=== PATIENT | female | born 1995 | race Caucasian/White ===

== ENCOUNTER 2022-11-21 14:13 | Outpatient (OUT) | payer OTHER, SELFPAY ==
[2022-11-21 14:43] LABS: Bilirubin Urine NEGATIVE (NEGATIVE); Blood Urine NEGATIVE (NEGATIVE); Clarity Urine CLEAR (CLEAR); Color Urine LT. YELLOW (YELLOW); Glucose Urine UA NEGATIVE (NEGATIVE); Ketones Urine NEGATIVE (NEGATIVE); Leukocyte Esterase Urine TRACE (NEGATIVE); Nitrite Urine NEGATIVE (NEGATIVE); Protein Urine NEGATIVE (NEG/TRACE); Urobilinogen Urine 0.2 EU/dL (0.2-1.0)
== END 2022-11-21 14:14 | disposition home or self-care (01) ==
LOC: LAB 14:17
PROVIDERS: PCP Family Medicine; Visit Provider Family Medicine
DX: R53.83 Other fatigue (principal)
CPT/HCPCS: 81003; 87086

== ENCOUNTER 2022-11-24 12:56 | Outpatient (OUT) | payer OTHER, SELFPAY ==
--- NOTE | 2022-11-24 | XR_ITS ---
The [address] [id number] Patient Name: CAMMIE APARICIO MRN: [id number] date: 1995 Sex: F Assigned Patient Location: [facility] Current Patient Location: Accession/Order Number: [id number] Exam Date: 11/24/2022 13:10 Report Date: 11/27/2022 06:34 At the request of: MISHA SALAS Procedure: XR ribs BI 3V EXAMINATION: XR ribs BI 3V HISTORY: R07.81 RIB PAIN COMPARISON: No relevant comparison available. FINDINGS: RIBS: Normal. No significant arthropathy or acute abnormality. LUNGS: No appreciable pneumothorax or pleural thickening. OTHER: Negative. XR/XR ribs BI 3V IMPRESSION: No acute rib fracture Electronically authenticated by: DAVID ALVAREZ Date: 11/27/2022 06:34
== END 2022-11-24 12:57 | disposition home or self-care (01) ==
LOC: RAD 12:57
PROVIDERS: PCP Family Medicine; Visit Provider Family Medicine
DX: R07.81 Pleurodynia (principal)
CPT/HCPCS: 71110

== ENCOUNTER 2022-12-25 18:51 | Emergency (ER) | payer OTHER, SELFPAY ==
[2022-12-25] VITALS (20 sets, daily range): BP systolic 93–119; BP diastolic 72–87; PULSE 57–104; RESP 10–23; TEMP 36.9; O2SAT 97–98; BMI 30.8
--- NOTE | 2022-12-25 19:23 | ECG_ITS ---
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
[2022-12-25 19:53] LABS: Bilirubin Urine NEGATIVE (NEGATIVE); Blood Urine TRACE-I (NEGATIVE); Clarity Urine CLEAR (CLEAR); Color Urine LT. YELLOW (YELLOW); Glucose Urine UA NEGATIVE (NEGATIVE); Ketones Urine NEGATIVE (NEGATIVE); Leukocyte Esterase Urine SMALL (NEGATIVE); Nitrite Urine NEGATIVE (NEGATIVE); Protein Urine NEGATIVE (NEG/TRACE); Specific Gravity Urine <=1.005 (1.005-1.025); Urobilinogen Urine 0.2 EU/dL (0.2-1.0); pH Urine 6.5 (5.0-9.0)
[2022-12-25 19:57] LABS: HCG Qualitative Urine* NEGATIVE (NEGATIVE)
[2022-12-25 19:59] LABS: Bacteria Urine SMALL #/HPF (NONE SEEN); Cast Seen? NONE SEEN #/LPF (NONE SEEN); Crystals Seen? None Seen #/HPF (None Seen); Mucus Urine NONE SEEN (NONE SEEN); Squamous Epithelial Cell Urine FEW #/LPF (NONE/RARE)
[2022-12-25] MEDS: ONDANSETRON PF 4 MG/2 ML VIAL IV (20:23)
[2022-12-25] MEDS: KETOROLAC TROMETHAMINE 30 MG/ML VIAL 15 MG IVP (20:23)
[2022-12-25] MEDS: 0.9 % SODIUM CHLORIDE 1,000 ML 1000 ML IV (20:23)
[2022-12-25 20:28] LABS: Basophils Absolute Auto 0.1 10^3/uL (0.0-0.1); Basophils Percent Auto 0.6 % (0.2-2.0); Eosinophils Absolute Auto 0.3 10^3/uL (0.0-0.7); Eosinophils Percent Auto 2.9 % (0.9-7.0); Hematocrit 39.4 % (36.0-48.0); Immature Granulocytes Abs Auto 0.03 10^3/uL (0.00-0.03); Immature Granulocytes Pct Auto 0.3 % (0.0-0.5); Lymphocytes Absolute Auto 3.2 10^3/uL (1.2-3.8); Lymphocytes Percent Auto 33.7 % (20.5-60.0); Mean Corpuscular Volume 84.7 fL (81.0-99.0); Mean Platelet Volume 9.9 fL (9.5-13.5); Monocytes Absolute Auto 0.6 10^3/uL (0.3-0.8); Monocytes Percent Auto 6.4 % (1.7-12.0); Neutrophils Absolute Auto 5.3 10^3/uL (1.4-6.5); Neutrophils Percent Auto 56.1 % (43.0-75.0); Platelet Count 352 10^3/uL (150-450); Red Blood Count 4.65 10^6/uL (4.20-5.40); Red Cell Distribution Width 12.7 % (11.0-15.0); White Blood Count 9.5 10^3/uL (4.0-11.0)
[2022-12-25 20:52] LABS: Lactate/Lactic Acid 0.6 mmol/L (0.4-2.0)
[2022-12-25 20:59] LABS: Alanine Aminotransferase 14 U/L (14-59); Albumin Globulin Ratio 1.1; Albumin Level 3.9 g/dL (3.4-5.0); Alkaline Phosphatase 78 U/L (46-116); Anion Gap 10.6; Aspartate Amino Transferase 13 U/L (15-37); BUN Creatinine Ratio 7.5; Bilirubin Total 0.3 mg/dL (0.2-1.0); Calcium 9.1 mg/dL (8.5-10.1); Carbon Dioxide 27.7 mmol/L (21.0-32.0); Chloride 104 mmol/L (98-107); Estimated GFR (African America >60 (>=60); Estimated GFR (Non-African Ame >60 (>=60); Globulin 3.7 g/dL; Glucose 102 mg/dL (74-106); Potassium 3.3 mmol/L (3.5-5.1); Sodium 139 mmol/L (136-145); Total Protein 7.6 g/dL (6.4-8.2)
[2022-12-25 21:02] LABS: Thyroid Stimulating Hormone 1.276 uIU/mL (0.358-3.740); Troponin I High Sensitivity 5.7 pg/mL (4.0-51.3)
--- NOTE | 2022-12-25 21:19 | ED.GENADUL1 ---
Documented by User: ADELAIDE Walters 12/25/22 21:40 HPI - General Adult General Chief complaint: Headache Stated complaint: light headed, nausea, fatigue Time Seen by Provider: 12/25/22 19:23 Source: patient Mode of arrival: walk-in Limitations: no limitations History of Present Illness HPI narrative: patient is a 27-year-old female to history of long Covid and POTS who presents to the emergency department with complaints of fatigue, lightheadedness and nausea. She has had no objective fevers, diarrhea. She denies urinary symptoms, abdominal pain. She has chronic discomfort to the chest and has been evaluated for this multiple times across multiple hospitals. She has no new complaints of chest pain, shortness of breath over the last several days. She denies sick contacts. She is not concerned for . She states she is concerned that she may be dehydrated or is having an exacerbation of her POTS Related Data Home Medications Medication Instructions Recorded Confirmed gabapentin 100 mg capsule 500 mg PO .qhs 12/25/22 12/25/22 meclizine 25 mg tablet 25 mg PO .q6 hours PRN dizziness 12/25/22 12/25/22 metoprolol tartrate 25 mg tablet 12.5 mg PO QAM 12/25/22 12/25/22 metoprolol tartrate 25 mg tablet 25 mg PO .qhs 12/25/22 12/25/22 ondansetron 4 mg disintegrating 4 mg translingual Q6H PRN nausea 12/25/22 12/25/22 tablet and vomiting tizanidine 4 mg tablet 4 mg PO .qhs 12/25/22 12/25/22 Previous Rx's Medication Instructions Recorded cephalexin 500 mg capsule 500 mg PO Q8H 5 days #15 caps 12/25/22 ondansetron 4 mg disintegrating 4 mg PO Q6H PRN nausea and 12/25/22 tablet vomiting #12 tabs Allergies Allergy/AdvReac Type Severity Reaction Status Date / Time doxycycline AdvReac Headache Verified 12/25/22 19:06 sulfamethoxazole AdvReac Verified 12/25/22 19:06 [From Bactrim] trimethoprim [From Bactrim] AdvReac Verified 12/25/22 19:06 some other antibiotics AdvReac Uncoded 12/25/22 19:06 Review of Systems ROS Constitutional Reports: fatigue; Denies: fever or chills Ears, nose, mouth, and throat Denies: throat pain or nasal congestion Cardiovascular Denies: chest pain Respiratory Denies: shortness of breath Gastrointestinal Reports: nausea and vomiting; Denies: abdominal pain Musculoskeletal Denies: back pain Integumentary/Breast Denies: rash Neurological Reports: headache [facility] Social History Smoking status: Former smoker Exam Narrative Exam Narrative: Gen.: Awake, alert, in no distress Head: Normocephalic, atraumatic ENT: Moist mucous membranes Respiratory: No respiratory distress, lungs clear bilaterally Cardio: Regular rate and rhythm Gastrointestinal: Abdomen is soft, nondistended and nontender to palpation Extremities: Moves extremities equally, no injuries noted Psych: Normal mood and affect Neuro: No focal neuro deficit Skin: Warm, dry, intact Constitutional Vital Signs, click to edit/add: Last Vital Signs Temp 98.5 F 12/25/22 19:12 Pulse 71 12/25/22 21:40 Resp 16 12/25/22 21:40 BP 117/82 12/25/22 21:37 Pulse Ox 98 12/25/22 19:29 O2 Del Method Room Air 12/25/22 19:12 Course Vital Signs Vital signs: Vital Signs Temperature 98.5 F 12/25/22 19:12 Pulse Rate 65 12/25/22 19:12 Respiratory Rate 14 12/25/22 19:12 Blood Pressure 93/72 12/25/22 19:12 Pulse Oximetry 97 12/25/22 19:12 Oxygen Delivery Method Room Air 12/25/22 19:12 Temperature 98.5 F 12/25/22 19:12 Pulse Rate 71 12/25/22 21:40 Respiratory Rate 16 12/25/22 21:40 Blood Pressure 117/82 12/25/22 21:37 Pulse Oximetry 98 12/25/22 19:29 Oxygen Delivery Method Room Air 12/25/22 19:12 Medical Decision Making MDM Narrative Medical decision making narrative: patient was treated with IV fluids, she maintained stable vital signs. No EKG changes. Lab studies show mild urinary tract infection with otherwise stable labs. Patient will be treated for urinary tract infection with Keflex, given Zofran for home. Follow-up with PCP and return to the Emergency Room if symptoms change or worsen. Medical Records Medical records reviewed: Yes I reviewed the patient's medical records Lab Data Lab results reviewed: Yes I reviewed the patient's lab results Labs: Lab Results 12/25/22 12/25/22 Range/Units 19:20 20:20 WBC 9.5 (4.0-11.0) 10^3/uL RBC 4.65 (4.20-5.40) 10^6/uL Hgb 13.0 (12.0-16.0) g/dL Hct 39.4 (36.0-48.0) % MCV 84.7 (81.0-99.0) fL MCH 28.0 (26.7-34.0) pg MCHC 33.0 (29.9-35.2) g/dL RDW 12.7 (11.0-15.0) % Plt Count 352 (150-450) 10^3/uL MPV 9.9 (9.5-13.5) fL Neut % (Auto) 56.1 (43.0-75.0) % Lymph % (Auto) 33.7 (20.5-60.0) % [place] % (Auto) 6.4 (1.7-12.0) % Eos % (Auto) 2.9 (0.9-7.0) % Baso % (Auto) 0.6 (0.2-2.0) % Neut # (Auto) 5.3 (1.4-6.5) 10^3/uL Lymph # (Auto) 3.2 (1.2-3.8) 10^3/uL [place] # (Auto) 0.6 (0.3-0.8) 10^3/uL Eos # (Auto) 0.3 (0.0-0.7) 10^3/uL Baso # (Auto) 0.1 (0.0-0.1) 10^3/uL Abs Immat Gran (auto) 0.03 (0.00-0.03) 10^3/uL Imm/Tot Granulo (auto) 0.3 (0.0-0.5) % Sodium 139 (136-145) mmol/L Potassium 3.3 L (3.5-5.1) mmol/L Chloride 104 (98-107) mmol/L Carbon Dioxide 27.7 (21.0-32.0) mmol/L Anion Gap 10.6 BUN 6.0 L (7.0-18.0) mg/dL Creatinine 0.80 (0.55-1.02) mg/dL Est GFR ( Amer) >60 (>=60) Est GFR (Non-Af Amer) >60 (>=60) BUN/Creatinine Ratio 7.5 Glucose 102 (74-106) mg/dL Lactate 0.6 (0.4-2.0) mmol/L Calcium 9.1 (8.5-10.1) mg/dL Total Bilirubin 0.3 (0.2-1.0) mg/dL AST 13 L (15-37) U/L ALT 14 (14-59) U/L Alkaline Phosphatase 78 (46-116) U/L Troponin I High Sens 5.7 (4.0-51.3) pg/mL Total Protein 7.6 (6.4-8.2) g/dL Albumin 3.9 (3.4-5.0) g/dL Globulin 3.7 g/dL Albumin/Globulin Ratio 1.1 TSH 1.276 (0.358-3.740) uIU/mL Urine Color Lt. yellow (YELLOW) Urine Clarity Clear (CLEAR) Urine pH 6.5 (5.0-9.0) Ur Specific [place] <=1.005 A (1.005-1.025) Urine Protein Negative (NEG/TRACE) mg/dL Urine Glucose (UA) Negative (NEGATIVE) mg/dL Urine Ketones Negative (NEGATIVE) mg/dL Urine Occult Blood Trace-i (NEGATIVE) Urine Nitrite Negative (NEGATIVE) Urine Bilirubin Negative (NEGATIVE) Urine Urobilinogen 0.2 (0.2-1.0) EU/dL Ur Leukocyte Esterase Small A (NEGATIVE) Urine RBC 2-5 A (0-2) #/HPF Urine WBC 2-5 A (NONE SEEN) #/HPF Ur Squamous Epith Cells Few A (NONE/RARE) #/LPF Urine Crystals None seen (None Seen) #/HPF Urine Bacteria Small A (NONE SEEN) #/HPF Urine Casts None seen (NONE SEEN) #/LPF Urine Mucus None seen (NONE SEEN) Urine HCG, Qual Negative (NEGATIVE) ECG Data Attestation: I personally reviewed and interpreted this ECG as follows: (normal sinus rhythm at a rate of 59, no acute ST elevation or ectopy. EKG reviewed by attending physician) Discharge Plan Discharge Chief Complaint: Headache Clinical Impression: Lightheadedness, UTI (urinary tract infection), Headache Patient Disposition: Home, Self-Care Time of Disposition Decision: 21:37 Condition: Good Prescriptions / Home Meds: New cephalexin 500 mg capsule 500 mg PO Q8H 5 Days Qty: 15 0RF ondansetron 4 mg tablet,disintegrating 4 mg PO Q6H PRN (Reason: nausea and vomiting) Qty: 12 0RF No Action gabapentin 100 mg capsule 500 mg PO .qhs tizanidine 4 mg tablet 4 mg PO .qhs metoprolol tartrate 25 mg tablet 12.5 mg PO QAM metoprolol tartrate 25 mg tablet 25 mg PO .qhs meclizine 25 mg tablet 25 mg PO .q6 hours PRN (Reason: dizziness) ondansetron 4 mg tablet,disintegrating 4 mg translingual Q6H PRN (Reason: nausea and vomiting) Instructions: Urinary Tract Infection in Women (ED), Lightheadedness (ED), POTS (Postural Orthostatic Tachycardia Syndrome) (ED) Stand Alone Forms: Portal Instructions Referrals: MISHA SALAS [Primary Care Provider] - 1 week Discharge Date/Time: 12/25/22 22:01 Documented by User: Олег Gerardo MD 12/25/22 23:07 HPI - General Adult General Chief complaint: Headache Stated complaint: light headed, nausea, fatigue Time Seen by Provider: 12/25/22 19:23 Related Data Home Medications Medication Instructions Recorded Confirmed gabapentin 100 mg capsule 500 mg PO .qhs 12/25/22 12/25/22 meclizine 25 mg tablet 25 mg PO .q6 hours PRN dizziness 12/25/22 12/25/22 metoprolol tartrate 25 mg tablet 12.5 mg PO QAM 12/25/22 12/25/22 metoprolol tartrate 25 mg tablet 25 mg PO .qhs 12/25/22 12/25/22 ondansetron 4 mg disintegrating 4 mg translingual Q6H PRN nausea 12/25/22 12/25/22 tablet and vomiting tizanidine 4 mg tablet 4 mg PO .qhs 12/25/22 12/25/22 Previous Rx's Medication Instructions Recorded cephalexin 500 mg capsule 500 mg PO Q8H 5 days #15 caps 12/25/22 ondansetron 4 mg disintegrating 4 mg PO Q6H PRN nausea and 12/25/22 tablet vomiting #12 tabs Allergies Allergy/AdvReac Type Severity Reaction Status Date / Time doxycycline AdvReac Headache Verified 12/25/22 19:06 sulfamethoxazole AdvReac Verified 12/25/22 19:06 [From Bactrim] trimethoprim [From Bactrim] AdvReac Verified 12/25/22 19:06 some other antibiotics AdvReac Uncoded 12/25/22 19:06 PFSH PFSH Social History Smoking status: Former smoker Exam Constitutional Vital Signs, click to edit/add: Last Vital Signs Temp 98.5 F 12/25/22 19:12 Pulse 71 12/25/22 21:40 Resp 16 12/25/22 21:40 BP 117/82 12/25/22 21:37 Pulse Ox 98 12/25/22 19:29 O2 Del Method Room Air 12/25/22 19:12 Course Vital Signs Vital signs: Vital Signs Temperature 98.5 F 12/25/22 19:12 Pulse Rate 65 12/25/22 19:12 Respiratory Rate 14 12/25/22 19:12 Blood Pressure 93/72 12/25/22 19:12 Pulse Oximetry 97 12/25/22 19:12 Oxygen Delivery Method Room Air 12/25/22 19:12 Temperature 98.5 F 12/25/22 19:12 Pulse Rate 71 12/25/22 21:40 Respiratory Rate 16 12/25/22 21:40 Blood Pressure 117/82 12/25/22 21:37 Pulse Oximetry 98 12/25/22 19:29 Oxygen Delivery Method Room Air 12/25/22 19:12 Medical Decision Making MDM Narrative Medical decision making narrative: patient was treated with IV fluids, she maintained stable vital signs. No EKG changes. Lab studies show mild urinary tract infection with otherwise stable labs. Patient will be treated for urinary tract infection with Keflex, given Zofran for home. Follow-up with PCP and return to the Emergency Room if symptoms change or worsen. I, Dr Gerardo, have reviewed the above progress note and course of action in the ER; agree with the above. I have personally seen and evaluated this patient, gone over history and physical, and discussed disposition and treatment plan with the patient. Lab Data Labs: Lab Results 12/25/22 12/25/22 Range/Units 19:20 20:20 WBC 9.5 (4.0-11.0) 10^3/uL RBC 4.65 (4.20-5.40) 10^6/uL Hgb 13.0 (12.0-16.0) g/dL Hct 39.4 (36.0-48.0) % MCV 84.7 (81.0-99.0) fL MCH 28.0 (26.7-34.0) pg MCHC 33.0 (29.9-35.2) g/dL RDW 12.7 (11.0-15.0) % Plt Count 352 (150-450) 10^3/uL MPV 9.9 (9.5-13.5) fL Neut % (Auto) 56.1 (43.0-75.0) % Lymph % (Auto) 33.7 (20.5-60.0) % [place] % (Auto) 6.4 (1.7-12.0) % Eos % (Auto) 2.9 (0.9-7.0) % Baso % (Auto) 0.6 (0.2-2.0) % Neut # (Auto) 5.3 (1.4-6.5) 10^3/uL Lymph # (Auto) 3.2 (1.2-3.8) 10^3/uL [place] # (Auto) 0.6 (0.3-0.8) 10^3/uL Eos # (Auto) 0.3 (0.0-0.7) 10^3/uL Baso # (Auto) 0.1 (0.0-0.1) 10^3/uL Abs Immat Gran (auto) 0.03 (0.00-0.03) 10^3/uL Imm/Tot Granulo (auto) 0.3 (0.0-0.5) % Sodium 139 (136-145) mmol/L Potassium 3.3 L (3.5-5.1) mmol/L Chloride 104 (98-107) mmol/L Carbon Dioxide 27.7 (21.0-32.0) mmol/L Anion Gap 10.6 BUN 6.0 L (7.0-18.0) mg/dL Creatinine 0.80 (0.55-1.02) mg/dL Est GFR ( Amer) >60 (>=60) Est GFR (Non-Af Amer) >60 (>=60) BUN/Creatinine Ratio 7.5 Glucose 102 (74-106) mg/dL Lactate 0.6 (0.4-2.0) mmol/L Calcium 9.1 (8.5-10.1) mg/dL Total Bilirubin 0.3 (0.2-1.0) mg/dL AST 13 L (15-37) U/L ALT 14 (14-59) U/L Alkaline Phosphatase 78 (46-116) U/L Troponin I High Sens 5.7 (4.0-51.3) pg/mL Total Protein 7.6 (6.4-8.2) g/dL Albumin 3.9 (3.4-5.0) g/dL Globulin 3.7 g/dL Albumin/Globulin Ratio 1.1 TSH 1.276 (0.358-3.740) uIU/mL Urine Color Lt. yellow (YELLOW) Urine Clarity Clear (CLEAR) Urine pH 6.5 (5.0-9.0) Ur Specific [place] <=1.005 A (1.005-1.025) Urine Protein Negative (NEG/TRACE) mg/dL Urine Glucose (UA) Negative (NEGATIVE) mg/dL Urine Ketones Negative (NEGATIVE) mg/dL Urine Occult Blood Trace-i (NEGATIVE) Urine Nitrite Negative (NEGATIVE) Urine Bilirubin Negative (NEGATIVE) Urine Urobilinogen 0.2 (0.2-1.0) EU/dL Ur Leukocyte Esterase Small A (NEGATIVE) Urine RBC 2-5 A (0-2) #/HPF Urine WBC 2-5 A (NONE SEEN) #/HPF Ur Squamous Epith Cells Few A (NONE/RARE) #/LPF Urine Crystals None seen (None Seen) #/HPF Urine Bacteria Small A (NONE SEEN) #/HPF Urine Casts None seen (NONE SEEN) #/LPF Urine Mucus None seen (NONE SEEN) Urine HCG, Qual Negative (NEGATIVE) Discharge Plan Discharge Chief Complaint: Headache Clinical Impression: Lightheadedness, UTI (urinary tract infection), Headache Patient Disposition: Home, Self-Care Time of Disposition Decision: 21:37 Condition: Good Prescriptions / Home Meds: New cephalexin 500 mg capsule 500 mg PO Q8H 5 Days Qty: 15 0RF ondansetron 4 mg tablet,disintegrating 4 mg PO Q6H PRN (Reason: nausea and vomiting) Qty: 12 0RF No Action gabapentin 100 mg capsule 500 mg PO .qhs tizanidine 4 mg tablet 4 mg PO .qhs metoprolol tartrate 25 mg tablet 12.5 mg PO QAM metoprolol tartrate 25 mg tablet 25 mg PO .qhs meclizine 25 mg tablet 25 mg PO .q6 hours PRN (Reason: dizziness) ondansetron 4 mg tablet,disintegrating 4 mg translingual Q6H PRN (Reason: nausea and vomiting) Instructions: Urinary Tract Infection in Women (ED), Lightheadedness (ED), POTS (Postural Orthostatic Tachycardia Syndrome) (ED) Stand Alone Forms: Portal Instructions Referrals: MISHA SALAS [Primary Care Provider] - 1 week Discharge Date/Time: 12/25/22 22:01
[2022-12-25] MEDS: POTASSIUM CHLORIDE 10 MEQ ER TABLET 40 MEQ PO (21:33)
[2022-12-25] MEDS: CEPHALEXIN 500 MG CAPSULE PO (21:49)
== END 2022-12-25 22:01 | disposition home or self-care (01) ==
PROVIDERS: Physician Assistant; Emergency Provider Emergency Medicine; PCP Family Medicine
DX: N39.0 Urinary tract infection, site not specified (principal); R51.9 Headache, unspecified; R42 Dizziness and giddiness; Z87.891 Personal history of nicotine dependence; Z79.899 Other long term (current) drug therapy; G90.A Postural orthostatic tachycardia syndrome [POTS]; U09.9 Post COVID-19 condition, unspecified
CPT/HCPCS: 36415; 80053; 81001; 83605; 84443; 84484; 84703; 85025; 93005; 96374; 96375; 99285

== ENCOUNTER 2022-12-30 21:35 | Emergency (ER) | payer OTHER, SELFPAY ==
[2022-12-30] VITALS (23 sets, daily range): BP systolic 112–139; BP diastolic 76–92; PULSE 54–76; RESP 12–26; TEMP 36.6; O2SAT 96–99; BMI 30.8
--- NOTE | 2022-12-30 21:59 | ED.CHESTPAI1 ---
HPI - Chest Pain General Chief Complaint: Chest Pain Stated Complaint: CHEST PAIN/SOB Time Seen by Provider: 12/30/22 21:56 Source: patient Mode of arrival: walk-in Limitations: no limitations History of Present Illness HPI narrative: chest pain past 3 days. cough. feels short of breath and states she has had tachycardia. No abdominal pain or nausea. Constant chest pain states 5/10 Risk Factors Coronary artery disease risk factors: none Related Data Home Medications Medication Instructions Recorded Confirmed gabapentin 100 mg capsule 500 mg PO .qhs 12/25/22 12/25/22 meclizine 25 mg tablet 25 mg PO .q6 hours PRN dizziness 12/25/22 12/25/22 metoprolol tartrate 25 mg tablet 12.5 mg PO QAM 12/25/22 12/25/22 metoprolol tartrate 25 mg tablet 25 mg PO .qhs 12/25/22 12/25/22 ondansetron 4 mg disintegrating 4 mg translingual Q6H PRN nausea 12/25/22 12/25/22 tablet and vomiting tizanidine 4 mg tablet 4 mg PO .qhs 12/25/22 12/25/22 Previous Rx's Medication Instructions Recorded cephalexin 500 mg capsule 500 mg PO Q8H 5 days #15 caps 12/25/22 ondansetron 4 mg disintegrating 4 mg PO Q6H PRN nausea and 12/25/22 tablet vomiting #12 tabs Allergies Allergy/AdvReac Type Severity Reaction Status Date / Time doxycycline AdvReac Headache Verified 12/30/22 21:39 sulfamethoxazole AdvReac Verified 12/30/22 21:39 [From Bactrim] trimethoprim [From Bactrim] AdvReac Verified 12/30/22 21:39 some other antibiotics AdvReac Uncoded 12/30/22 21:39 Review of Systems ROS Status of ROS 10 or more systems reviewed and unremarkable except as noted in history and below PFSH PFS Social History Smoking status: Former smoker Exam Constitutional Vital Signs, click to edit/add: Last Vital Signs Temp 97.8 F 12/30/22 21:39 Pulse 73 12/31/22 00:30 Resp 22 12/31/22 00:30 BP 110/77 12/31/22 00:30 Pulse Ox 99 12/31/22 00:30 O2 Del Method Room Air 12/30/22 23:43 Common normals: no apparent distress, average body habitus, oriented x3, no limitations, healthy appearing and alert Eye Common normals: EOMs intact bilaterally and conjunctivae normal Chest Other: mild chest wall tenderness Respiratory Common normals: normal respiratory effort, no retractions, no use of accessory muscles and clear to auscultation bilaterally Cardio Common normals: regular rate, regular rhythm, S1 normal heart sound and S2 normal heart sound GI Common normals: Normal to inspection, nondistended, normoactive bowel sounds present, soft to palpation and non-tender Extremity Common normals: normal to inspection and full ROM Neuro Common normals: oriented x3, CN's II-XII intact bilaterally, moves all extremities and no focal motor deficits Psych Appearance: grossly normal Course Vital Signs Vital signs: Vital Signs Temperature 97.8 F 12/30/22 21:39 Pulse Rate 76 12/30/22 21:39 Respiratory Rate 18 12/30/22 21:39 Blood Pressure 130/85 12/30/22 21:39 Pulse Oximetry 98 12/30/22 21:39 Oxygen Delivery Method Room Air 12/30/22 21:39 Temperature 97.8 F 12/30/22 21:39 Pulse Rate 73 12/31/22 00:30 Respiratory Rate 22 12/31/22 00:30 Blood Pressure 110/77 12/31/22 00:30 Pulse Oximetry 99 12/31/22 00:30 Oxygen Delivery Method Room Air 12/30/22 23:43 MDM - Chest Pain MDM Narrative Medical decision making narrative: patient presents with chest pain for 3 days and cough. Feels short of breath. Exam is neg. cxray is clear and respiratory panel is neg. Patient treated with albuterol NMT and her sensation of feeling short of breath improved. d-dimer and troponin neg. Discharged home with working diagnosis of atypical chest pain and URI. Prescribed albuterol inhaler to use prn and she is to follow up with her doctor Lab Data Labs: Lab Results 12/30/22 12/30/22 Range/Units 21:50 23:48 WBC 10.1 (4.0-11.0) 10^3/uL RBC 4.64 (4.20-5.40) 10^6/uL Hgb 13.0 (12.0-16.0) g/dL Hct 39.7 (36.0-48.0) % MCV 85.6 (81.0-99.0) fL MCH 28.0 (26.7-34.0) pg MCHC 32.7 (29.9-35.2) g/dL RDW 12.7 (11.0-15.0) % Plt Count 384 (150-450) 10^3/uL MPV 10.1 (9.5-13.5) fL Neut % (Auto) 53.4 (43.0-75.0) % Lymph % (Auto) 35.7 (20.5-60.0) % [place] % (Auto) 6.3 (1.7-12.0) % Eos % (Auto) 3.7 (0.9-7.0) % Baso % (Auto) 0.7 (0.2-2.0) % Neut # (Auto) 5.4 (1.4-6.5) 10^3/uL Lymph # (Auto) 3.6 (1.2-3.8) 10^3/uL [place] # (Auto) 0.6 (0.3-0.8) 10^3/uL Eos # (Auto) 0.4 (0.0-0.7) 10^3/uL Baso # (Auto) 0.1 (0.0-0.1) 10^3/uL Abs Immat Gran (auto) 0.02 (0.00-0.03) 10^3/uL Imm/Tot Granulo (auto) 0.2 (0.0-0.5) % D-Dimer 0.22 (<=0.59) mg/L FEU Sodium 139 (136-145) mmol/L Potassium 3.6 (3.5-5.1) mmol/L Chloride 102 (98-107) mmol/L Carbon Dioxide 27.4 (21.0-32.0) mmol/L Anion Gap 13.2 BUN 6.0 L (7.0-18.0) mg/dL Creatinine 0.84 (0.55-1.02) mg/dL Est GFR ( Amer) >60 (>=60) Est GFR (Non-Af Amer) >60 (>=60) BUN/Creatinine Ratio 7.1 Glucose 98 (74-106) mg/dL Calcium 8.9 (8.5-10.1) mg/dL Troponin I High Sens 4.6 (4.0-51.3) pg/mL Adenovirus (PCR) Not detected (NOT DETECTE) C. pneumoniae DNA (PCR) Not detected (NOT DETECTE) Coronavirus Type OC43 Not detected (NOT DETECTE) Coronavirus Type HKU1 Not detected (NOT DETECTE) Coronavirus Type 229E Not detected (NOT DETECTE) Coronavirus Type NL63 Not detected (NOT DETECTE) Human Metapneumovir PCR Not detected (NOT DETECTE) M. pneumoniae (PCR) Not detected (NOT DETECTE) Parainfluenza PCR Not detected (NOT DETECTE) Parainfluenza 2 (PCR) Not detected (NOT DETECTE) Parainfluenza 3 (PCR) Not detected (NOT DETECTE) Parainfluenza 4 (PCR) Not detected (NOT DETECTE) RSV (RT-PCR) Not detected (NOT DETECTE) Entero/Rhino (PCR) Not detected (NOT DETECTE) SARS-CoV-2 (PCR) Not detected (NOT DETECTE) Bordetella pertussis (PCR) Not detected (NOT DETECTE) B parapertussis DNA PCR Not detected (NOT DETECTE) Influenza Type A (PCR) Not detected (NOT DETECTE) Influenza Type B (PCR) Not detected (NOT DETECTE) Discharge Plan Discharge Chief Complaint: Chest Pain Clinical Impression: URI (upper respiratory infection), Atypical chest pain Patient Disposition: Home, Self-Care Prescriptions / Home Meds: No Action gabapentin 100 mg capsule 500 mg PO .qhs tizanidine 4 mg tablet 4 mg PO .qhs metoprolol tartrate 25 mg tablet 12.5 mg PO QAM metoprolol tartrate 25 mg tablet 25 mg PO .qhs meclizine 25 mg tablet 25 mg PO .q6 hours PRN (Reason: dizziness) ondansetron 4 mg tablet,disintegrating 4 mg translingual Q6H PRN (Reason: nausea and vomiting) cephalexin 500 mg capsule 500 mg PO Q8H 5 Days Qty: 15 0RF ondansetron 4 mg tablet,disintegrating 4 mg PO Q6H PRN (Reason: nausea and vomiting) Qty: 12 0RF Instructions: Chest Pain (ED), Upper Respiratory Infection (ED) Stand Alone Forms: Portal Instructions Referrals: MISHA SALAS [Primary Care Provider] - 1 week
--- NOTE | 2022-12-30 22:00 | PC.NURSE ---
Pt. reports to the ER with complaints of mid chest pressure with SOB. Pt. states was here couple days ago & diagnoses wth UTI and POTs Flare up & chest pain started after that. Pt states this pressure and SOB feels different then a typical POTs flare up. Pt. remains on cardiac cath tech. Call light in reach. Pt. denies any needs at present time.
--- NOTE | 2022-12-30 22:01 | XR_ITS ---
The [address] [address] Patient Name: CAMMIE APARICIO MRN: [id number] date: 1995 Sex: F Assigned Patient Location: ER Current Patient Location: ER Accession/Order Number: [id number] Exam Date: 12/30/2022 22:45 Report Date: 12/30/2022 22:58 At the request of: HAYDEE DUKES Procedure: XR chest 2V EXAM: XR chest 2V HISTORY: chest pain COMPARISON: 01/14/2021 TECHNIQUE: 2 views of the chest FINDINGS: Heart size normal. No focal consolidation, pleural effusion, pulmonary congestion or pneumothorax. Multiple external leads. XR/XR chest 2V IMPRESSION: No acute findings. Electronically authenticated by: ALAN RAYMUNDO Date: 12/30/2022 22:58
--- NOTE | 2022-12-30 22:01 | ECG_ITS ---
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
[2022-12-30 22:22] LABS: Basophils Absolute Auto 0.1 10^3/uL (0.0-0.1); Basophils Percent Auto 0.7 % (0.2-2.0); Eosinophils Absolute Auto 0.4 10^3/uL (0.0-0.7); Eosinophils Percent Auto 3.7 % (0.9-7.0); Hematocrit 39.7 % (36.0-48.0); Immature Granulocytes Abs Auto 0.02 10^3/uL (0.00-0.03); Immature Granulocytes Pct Auto 0.2 % (0.0-0.5); Lymphocytes Absolute Auto 3.6 10^3/uL (1.2-3.8); Lymphocytes Percent Auto 35.7 % (20.5-60.0); Mean Corpuscular HGB Conc 32.7 g/dL (29.9-35.2); Mean Corpuscular Volume 85.6 fL (81.0-99.0); Mean Platelet Volume 10.1 fL (9.5-13.5); Monocytes Absolute Auto 0.6 10^3/uL (0.3-0.8); Monocytes Percent Auto 6.3 % (1.7-12.0); Neutrophils Absolute Auto 5.4 10^3/uL (1.4-6.5); Neutrophils Percent Auto 53.4 % (43.0-75.0); Platelet Count 384 10^3/uL (150-450); Red Blood Count 4.64 10^6/uL (4.20-5.40); Red Cell Distribution Width 12.7 % (11.0-15.0); White Blood Count 10.1 10^3/uL (4.0-11.0)
[2022-12-30 22:36] LABS: D Dimer 0.22 mg/L FEU (<=0.59)
[2022-12-30 22:41] LABS: Anion Gap 13.2; BUN Creatinine Ratio 7.1; Calcium 8.9 mg/dL (8.5-10.1); Carbon Dioxide 27.4 mmol/L (21.0-32.0); Chloride 102 mmol/L (98-107); Estimated GFR (African America >60 (>=60); Estimated GFR (Non-African Ame >60 (>=60); Glucose 98 mg/dL (74-106); Potassium 3.6 mmol/L (3.5-5.1); Sodium 139 mmol/L (136-145); Troponin I High Sensitivity 4.6 pg/mL (4.0-51.3)
[2022-12-30] MEDS: ALBUTEROL SULFATE 2.5 MG/3 ML VIAL NEB IH (23:43)
[2022-12-30 23:52] LABS: Adenovirus NOT DETECTED (NOT DETECTE); Bordetella parapertussis NOT DETECTED (NOT DETECTE); Coronavirus 229E NOT DETECTED (NOT DETECTE); Coronavirus HKU1 NOT DETECTED (NOT DETECTE); Coronavirus NL63 NOT DETECTED (NOT DETECTE); Coronavirus OC43 NOT DETECTED (NOT DETECTE); Human Metapneumovirus NOT DETECTED (NOT DETECTE); Human Rhinovirus/Enterovirus NOT DETECTED (NOT DETECTE); Influenza A NOT DETECTED (NOT DETECTE); Influenza B NOT DETECTED (NOT DETECTE); Mycoplasma pneumoniae NOT DETECTED (NOT DETECTE); Parainfluenza Virus 1 NOT DETECTED (NOT DETECTE); Parainfluenza Virus 2 NOT DETECTED (NOT DETECTE); Parainfluenza Virus 3 NOT DETECTED (NOT DETECTE); Parainfluenza Virus 4 NOT DETECTED (NOT DETECTE); Respiratory Syncytial Virus NOT DETECTED (NOT DETECTE); SARS-CoV-2 NOT DETECTED (NOT DETECTE)
[2022-12-31] VITALS (11 sets, daily range): BP systolic 110–133; BP diastolic 77–86; PULSE 66–93; RESP 13–28; O2SAT 97–99
== END 2022-12-31 01:16 | disposition home or self-care (01) ==
PROVIDERS: Emergency Provider Internal Medicine; PCP Family Medicine
DX: R07.89 Other chest pain (principal); J06.9 Acute upper respiratory infection, unspecified; Z20.822 Contact with and (suspected) exposure to COVID-19; Z87.891 Personal history of nicotine dependence
CPT/HCPCS: 0202U; 36415; 71046; 80048; 84484; 85025; 85378; 93005; 94640; 99285

== ENCOUNTER 2024-04-23 08:06 | Outpatient (OUT) | payer OTHER, SELFPAY ==
--- NOTE | 2024-04-23 | ECG_ITS ---
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
== END 2024-04-23 08:07 | disposition home or self-care (01) ==
LOC: CARD 08:07
PROVIDERS: PCP Family Medicine; Visit Provider Family Medicine
DX: R42 Dizziness and giddiness (principal); R07.89 Other chest pain; G90.A Postural orthostatic tachycardia syndrome [POTS]
CPT/HCPCS: 93005

== ENCOUNTER 2024-06-02 20:12 | Emergency (ER) | payer OTHER, SELFPAY ==
[2024-06-02] VITALS (9 sets, daily range): BP systolic 98–118; BP diastolic 64–84; PULSE 66–88; TEMP 36.8; O2SAT 97–99; BMI 30.6
--- NOTE | 2024-06-02 20:42 | ECG_ITS ---
[facility] Test Date: 2024-06-02 Pat Name: CAMMIE APARICIO Department: Room: - Gender: Female Director Outcomes: : 1995 Requested By: [id number] Order Number: [id number] Reading MD: NICOLE VAUGHN M.D. Measurements Intervals [place] Rate: 81 P: 60 SC: 142 QRS: 86 QRSD: 76 T: 62 QT: 338 QTc: 375 Interpretive Statements 1100 Sinus rhythm 1970 with occasional ectopic premature complexes 8102 Low QRS voltage in chest leads abnormal ECG Compared to ECG 04/23/2024 08:29:20 Premature ventricular complexes are now present Electronically Signed On 06-02-2024 21:53:06 EDT by NICOLE VAUGHN M.D.
--- NOTE | 2024-06-02 20:43 | ED.ABDPAIN1 ---
HPI - Abdominal Pain General Chief Complaint: Abdominal Pain Stated Complaint: ABDOMINAL PAIN, NAUSEA Time Seen by Provider: 06/02/24 20:17 Source: patient Mode of arrival: walk-in History of Present Illness HPI narrative: This 28-year-old female presents for evaluation of epigastric abdominal pain and nausea. The patient is concerned that she has pancreatitis or gastroparesis. She is currently on GLP weight loss medication from a compounding pharmacy, she states that she has been taking it for the past month and recently went from 0.2 to 0.3 mg. Her symptoms of nausea and epigastric abdominal pain started at that time. She has not been having diarrhea. She states she has been forcing herself to vomit due to the epigastric abdominal pain. She has taken Zofran without relief. She googled her symptoms and thinks that she has either pancreatitis or gastroparesis and read that both can lead to and is concerned that she is dying. She denies a history of either of these. She is not a heavy drinker. She denies any chest pain or shortness of breath. Related Data Home Medications ?Medication ?Instructions ?Recorded ?Confirmed gabapentin 100 mg capsule 500 mg PO .qhs 12/25/22 12/25/22 meclizine 25 mg tablet 25 mg PO .q6 hours PRN dizziness 12/25/22 12/25/22 metoprolol tartrate 25 mg tablet 12.5 mg PO QAM 12/25/22 12/25/22 metoprolol tartrate 25 mg tablet 25 mg PO .qhs 12/25/22 12/25/22 ondansetron 4 mg disintegrating 4 mg translingual Q6H PRN nausea 12/25/22 12/25/22 tablet and vomiting tizanidine 4 mg tablet 4 mg PO .qhs 12/25/22 12/25/22 Previous Rx's ?Medication ?Instructions ?Recorded cephalexin 500 mg capsule 500 mg PO Q8H 5 days #15 caps 12/25/22 ondansetron 4 mg disintegrating 4 mg PO Q6H PRN nausea and 12/25/22 tablet vomiting #12 tabs Allergies Allergy/AdvReac Type Severity Reaction Status Date / Time doxycycline AdvReac Headache Verified 12/30/22 21:39 sulfamethoxazole (From AdvReac Verified 12/30/22 21:39 Bactrim) trimethoprim (From Bactrim) AdvReac Verified 12/30/22 21:39 some other antibiotics AdvReac Uncoded 12/30/22 21:39 Review of Systems ROS Status of ROS 10 or more systems reviewed and unremarkable except as noted in history and below [facility] Social History Smoking status: Former smoker Little interest or pleasure in doing things: not at all Feeling down, depressed, or hopeless: not at all Exam Narrative Exam Narrative: Vital signs and Nursing Notes reviewed: Patient is afebrile with a normal pulse, normal blood pressure, she is not hypoxic with pulse ox of 97% on room air General: Awake, alert, oriented, anxious female, no respiratory distress, no active vomiting HEENT: Normocephalic atraumatic, mucous membranes are moist and pink, eyes are clear, normal conjunctiva, vision is grossly intact, posterior pharynx is normal in appearance. Chest: Lungs are clear to auscultation with good air entry, there is no wheezing rhonchi or rales appreciated no accessory muscle use, patient is speaking in complete sentences-no chest wall tenderness to palpation CVS: Regular rate and rhythm S1-S2, no murmurs rubs or gallops, pulses are brisk and equal bilaterally ABD: Soft, nondistended, epigastric abdominal tenderness and mild fullness with no rebound guarding or rigidity. There is no right upper quadrant or left upper quadrant tenderness. There is no lower abdominal tenderness Extremities: Moving all extremities, no lower extremity tenderness or swelling noted, negative Homans' sign, pulses are brisk and equal bilaterally Skin: Normal in appearance without rash,pallor, petechiae or purpura Neuro: No focal deficits Psych: Anxious, tearful, fearing Constitutional Vital Signs, click to edit/add: Last Vital Signs Temp 98.2 F 06/02/24 20:17 Pulse 88 06/02/24 22:00 Resp 21 H 06/02/24 22:00 BP 116/68 06/02/24 22:31 Pulse Ox 98 06/02/24 22:30 O2 Del Method Room Air 06/02/24 20:17 Course Vital Signs Vital signs: Vital Signs Temperature 98.2 F 06/02/24 20:17 Pulse Rate 76 06/02/24 20:17 Respiratory Rate 16 06/02/24 20:17 Blood Pressure 98/64 06/02/24 20:17 Pulse Oximetry 97 06/02/24 20:17 Oxygen Delivery Method Room Air 06/02/24 20:17 Temperature 98.2 F 06/02/24 20:17 Pulse Rate 88 06/02/24 22:00 Respiratory Rate 21 H 06/02/24 22:00 Blood Pressure 116/68 06/02/24 22:31 Pulse Oximetry 98 06/02/24 22:30 Oxygen Delivery Method Room Air 06/02/24 20:17 MDM - Abdominal Pain MDM Narrative Medical decision making narrative: This 28-year-old female who is on GLP medications for weight loss and recently increased her dose from 0.2 to 0.3 mg presents for evaluation of epigastric abdominal pain. She has had some degree of abdominal discomfort since being on these medications for the past month. Her symptoms have recently worsened. She was making herself vomit due to her abdominal discomfort despite taking Zofran. She has been looking at her symptoms online and convinced that she either has pancreatitis or gastroparesis. She is not having any diarrhea. She has not had any fever. She does not drink alcohol. Patient appeared very distressed upon arrival and was tearful. EKG was a normal sinus rhythm with occasional PVCs at 82 bpm. An IV was placed and she was medicated with IV fluids, Toradol, Zofran and Pepcid. Routine labs are reviewed. She has a normal white count and hemoglobin. She has a normal chemistry panel and LFTs are normal. Lipase is normal at 25. Urine is negative for and positive for trace ketones. CT scan of the abdomen pelvis with IV contrast was ordered. After coming back from CAT scan she has still had some mild nausea and was medicated with a dose of Reglan. She was then given ice chips and is tolerating them well. CT scan of the abdomen pelvis with IV contrast was ordered and does not show any acute appendicitis, colitis or diverticulitis. There is a likely recently ruptured cyst or follicle within the left ovary. There is no bowel obstruction or perforation. The results of the CT scan were discussed with her and she was given a copy to share with her physician. She has not taken her GLP injection yet this week and I encouraged her to consider holding off for a few days until her GI symptoms have resolved or if she has consulted with her family physician before starting a new round of shots. She did appear to get good relief from her nausea with Reglan and will be discharged home with a prescription for Reglan. I also encouraged her to take a gentle laxative to keep her bowels moving in light of the fact that she is not eating much due to the appetite suppression and the GLP medications. Lab Data Attestation: I reviewed the patient's lab results. Labs: Lab Results 06/02/24 06/02/24 Range/Units 20:55 21:30 WBC 11.6 H (4.0-11.0) 10^3/uL RBC 4.66 (4.20-5.40) 10^6/uL Hgb 12.9 (12.0-16.0) g/dL Hct 38.5 (36.0-48.0) % MCV 82.6 (81.0-99.0) fL MCH 27.7 (26.7-34.0) pg MCHC 33.5 (29.9-35.2) g/dL RDW 12.7 (11.0-15.0) % Plt Count 316 (150-450) 10^3/uL MPV 10.5 (9.5-13.5) fL Neut % (Auto) 66.6 (43.0-75.0) % Lymph % (Auto) 24.0 (20.5-60.0) % [place] % (Auto) 6.4 (1.7-12.0) % Eos % (Auto) 2.4 (0.9-7.0) % Baso % (Auto) 0.3 (0.2-2.0) % Neut # (Auto) 7.8 H (1.4-6.5) 10^3/uL Lymph # (Auto) 2.8 (1.2-3.8) 10^3/uL [place] # (Auto) 0.7 (0.3-0.8) 10^3/uL Eos # (Auto) 0.3 (0.0-0.7) 10^3/uL Baso # (Auto) 0.0 (0.0-0.1) 10^3/uL Abs Immat Gran (auto) 0.03 (0.00-0.03) 10^3/uL Imm/Tot Granulo (auto) 0.3 (0.0-0.5) % Sodium 141 (136-145) mmol/L Potassium 3.4 L (3.5-5.1) mmol/L Chloride 104 (98-107) mmol/L Carbon Dioxide 28.1 (21.0-32.0) mmol/L Anion Gap 12.3 BUN 9.0 (7.0-18.0) mg/dL Creatinine 0.91 (0.55-1.02) mg/dL Est GFR ( Amer) >60 (>=60 mL/min/1.73m^2) Est GFR (Non-Af Amer) >60 (>=60 mL/min/1.73m^2) BUN/Creatinine Ratio 9.9 Glucose 102 (74-106) mg/dL Calcium 9.5 (8.5-10.1) mg/dL Total Bilirubin 0.3 (0.2-1.0) mg/dL AST 13 L (15-37) U/L ALT 15 (14-59) U/L Alkaline Phosphatase 74 (46-116) U/L Total Protein 7.2 (6.4-8.2) g/dL Albumin 3.7 (3.4-5.0) g/dL Globulin 3.5 g/dL Albumin/Globulin Ratio 1.1 Lipase 25.0 (16.0-77.0) U/L Urine Color Lt. yellow (YELLOW) Urine Clarity Clear (CLEAR) Urine pH 7.5 (5.0-9.0) Ur Specific [place] 1.020 (1.005-1.025) Urine Protein Negative (NEG/TRACE) mg/dL Urine Glucose (UA) Negative (NEGATIVE) mg/dL Urine Ketones Trace A (NEGATIVE) mg/dL Urine Occult Blood Negative (NEGATIVE) Urine Nitrite Negative (NEGATIVE) Urine Bilirubin Negative (NEGATIVE) Urine Urobilinogen 0.2 (0.2-1.0) EU/dL Ur Leukocyte Esterase Negative (NEGATIVE) Urine RBC None seen (0-2) #/HPF Urine WBC 0-2 A (NONE SEEN) #/HPF Ur Squamous Epith Cells Few A (NONE/RARE) #/LPF Urine Crystals None seen (None Seen) #/HPF Urine Bacteria None seen (NONE SEEN) #/HPF Urine Casts None seen (NONE SEEN) #/LPF Urine Mucus None seen (NONE SEEN) Ur Culture Indicated? No Urine HCG, Qual Negative (NEGATIVE) ECG Data Attestation: I personally reviewed and interpreted this ECG as follows: (Sinus rhythm at 80 bpm with occasional PVCs, normal axis, low voltage QRS in chest leads, no acute ST segment elevation or T wave inversion) Discharge Plan Discharge Chief Complaint: Abdominal Pain Clinical Impression: Abdominal pain, Medication adverse effect Patient Disposition: Home, Self-Care Time of Disposition Decision: 23:33 Condition: Good Prescriptions / Home Meds: No Action gabapentin 100 mg capsule 500 mg PO .qhs tizanidine 4 mg tablet 4 mg PO .qhs metoprolol tartrate 25 mg tablet 12.5 mg PO QAM metoprolol tartrate 25 mg tablet 25 mg PO .qhs meclizine 25 mg tablet 25 mg PO .q6 hours PRN (Reason: dizziness) ondansetron 4 mg tablet,disintegrating 4 mg translingual Q6H PRN (Reason: nausea and vomiting) cephalexin 500 mg capsule 500 mg PO Q8H 5 Days Qty: 15 0RF ondansetron 4 mg tablet,disintegrating 4 mg PO Q6H PRN (Reason: nausea and vomiting) Qty: 12 0RF Print Language: [place] Instructions: Abdominal Pain (ED) Additional Instructions: Drink plenty of fluids, use Reglan and/or Zofran as needed for nausea. Consider using a mild stool softener. Follow-up closely with your family physician regarding the side effects you are experiencing from the GLP medications. Referrals: MISHA SALAS [Primary Care Provider] - 1 week
--- NOTE | 2024-06-02 21:00 | PC.NURSE ---
Pt asks for a Xanax as she is feeling very anxious and panicky about her condition Pt states she Googled it and it states can lead to This nurse asked patient if she would take Ativan instead if Dr. Brooks approved this but patient said no This was relayed to Dr. Brooks and she said no to any anxiety medication at this time as patient is driving This was relayed to patient, she was understanding.
[2024-06-02] MEDS: 0.9 % SODIUM CHLORIDE 1,000 ML 1000 ML IV (21:25)
[2024-06-02] MEDS: KETOROLAC TROMETHAMINE 30 MG/ML VIAL IVP (21:25)
[2024-06-02] MEDS: FAMOTIDINE/PF 20 MG/2 ML VIAL IV (21:25)
[2024-06-02 21:26] LABS: Basophils Percent Auto 0.3 % (0.2-2.0); Eosinophils Absolute Auto 0.3 10^3/uL (0.0-0.7); Eosinophils Percent Auto 2.4 % (0.9-7.0); Hematocrit 38.5 % (36.0-48.0); Hemoglobin 12.9 g/dL (12.0-16.0); Immature Granulocytes Abs Auto 0.03 10^3/uL (0.00-0.03); Immature Granulocytes Pct Auto 0.3 % (0.0-0.5); Lymphocytes Absolute Auto 2.8 10^3/uL (1.2-3.8); Mean Corpuscular HGB Conc 33.5 g/dL (29.9-35.2); Mean Corpuscular Hemoglobin 27.7 pg (26.7-34.0); Mean Corpuscular Volume 82.6 fL (81.0-99.0); Mean Platelet Volume 10.5 fL (9.5-13.5); Monocytes Absolute Auto 0.7 10^3/uL (0.3-0.8); Monocytes Percent Auto 6.4 % (1.7-12.0); Neutrophils Absolute Auto 7.8 10^3/uL (1.4-6.5); Neutrophils Percent Auto 66.6 % (43.0-75.0); Platelet Count 316 10^3/uL (150-450); Red Blood Count 4.66 10^6/uL (4.20-5.40); Red Cell Distribution Width 12.7 % (11.0-15.0); White Blood Count 11.6 10^3/uL (4.0-11.0)
[2024-06-02 21:37] LABS: Alanine Aminotransferase 15 U/L (14-59); Albumin Globulin Ratio 1.1; Albumin Level 3.7 g/dL (3.4-5.0); Alkaline Phosphatase 74 U/L (46-116); Anion Gap 12.3; Aspartate Amino Transferase 13 U/L (15-37); BUN Creatinine Ratio 9.9; Bilirubin Total 0.3 mg/dL (0.2-1.0); Calcium 9.5 mg/dL (8.5-10.1); Carbon Dioxide 28.1 mmol/L (21.0-32.0); Chloride 104 mmol/L (98-107); Estimated GFR (African America >60 (>=60 mL/min/1.73m^2); Estimated GFR (Non-African Ame >60 (>=60 mL/min/1.73m^2); Globulin 3.5 g/dL; Glucose 102 mg/dL (74-106); Potassium 3.4 mmol/L (3.5-5.1); Sodium 141 mmol/L (136-145); Total Protein 7.2 g/dL (6.4-8.2)
[2024-06-02 21:57] LABS: Bilirubin Urine NEGATIVE (NEGATIVE); Blood Urine NEGATIVE (NEGATIVE); Clarity Urine CLEAR (CLEAR); Color Urine LT. YELLOW (YELLOW); Glucose Urine UA NEGATIVE (NEGATIVE); HCG Qualitative Urine* NEGATIVE (NEGATIVE); Internal Control Within Normal Limits; Ketones Urine TRACE mg/dL (NEGATIVE); Leukocyte Esterase Urine NEGATIVE (NEGATIVE); Nitrite Urine NEGATIVE (NEGATIVE); Protein Urine NEGATIVE (NEG/TRACE); Urobilinogen Urine 0.2 EU/dL (0.2-1.0); pH Urine 7.5 (5.0-9.0)
[2024-06-02 22:08] LABS: Bacteria Urine NONE SEEN #/HPF (NONE SEEN); Cast Seen? NONE SEEN #/LPF (NONE SEEN); Crystals Seen? None Seen #/HPF (None Seen); Mucus Urine NONE SEEN (NONE SEEN); RBC Urine NONE SEEN #/HPF (0-2); Squamous Epithelial Cell Urine FEW #/LPF (NONE/RARE); WBC Urine 0-2 #/HPF (NONE SEEN)
[2024-06-02 22:09] LABS: Urine Culture Indicated NO
[2024-06-02] MEDS: METOCLOPRAMIDE HCL 10 MG/2 ML VIAL IVP (22:55)
== END 2024-06-02 23:53 | disposition home or self-care (01) ==
PROVIDERS: Emergency Provider Emergency Medicine; PCP Family Medicine
DX: R10.13 Epigastric pain (principal); R11.0 Nausea; T50.995A Adverse effect of other drugs, medicaments and biological substances, initial encounter; Z87.891 Personal history of nicotine dependence; Z79.85 Long-term (current) use of injectable non-insulin antidiabetic drugs
CPT/HCPCS: 36415; 74177; 80053; 81001; 83690; 84703; 85025; 93005; 96361; 96374; 96375; 99285; J1885; J2765; J3490; Q9967

== ENCOUNTER 2025-01-10 07:14 | Emergency (ER) | payer OTHER, SELFPAY ==
--- OUTSIDE RECORDS SUMMARY | 2023-11-27 04:00 | XMS_ITS ---
Demographics Address [address] [address] Mobile Email Address Preferred Language en Marital Status unmarried Mormonism Affiliation Unknown Race White Ethnic Group Not or Lati no Author Organization [facility] Address [address] [place] [address] Care Team Providers Care Video Editing Internship Name Role Phone Jarod Rowe Primary Care Provider [phone] Kelly Taylor Arias Unavailable [phone] REASON FOR VISIT EXT Encounters Encounter Location Date Provider Diagnosis [facility] [address] [place] [address] 11/27/2023 Taylor Arias Plan Of Treatment Next Appt Details Provider Name:Lisette Anglin, 03/11/2025 08:00:00 AM, [address], [place], [address], Progress Notes * CAMMIE APARICIO NDOB: [birth year] (29 yo F)Acc No.[id number]:11/27/2023 Patient:?CAMMIE APARICIO :?Taylor AriasDOB:1995???Age:28 Y???Sex: FemaleDate:11/27/2023hone:[phone]:[address] [id number]:Jarod Rowe Subjective: * Chief Complaints: * E XT * Electronic signature of Taylor Arias , DMD on 01/10/2025 at 08:07 AM ESTSign off status: Pending * Provider: Clementine Arias Date: Generated for Printing/Faxing/eTransmitting on:?01/10/2025 08:07 AM EST
--- OUTSIDE RECORDS SUMMARY | 2023-12-28 04:15 | XMS_ITS ---
Demographics Address [address] [place] [address] Mobile Email Address Preferred Language en Marital Status unmarried Yarsanism Affiliation Unknown Race White Ethnic Group Not or Lati no Author Organization [facility] Address [address] [place] [address] Care Team Providers Care Granulator Operator Name Role Phone Jarod Rowe Primary Care Provider [phone] Kelly Serge Solis [phone] REASON FOR VISIT FILLING Encounters Encounter Location Date Provider Diagnosis [facility] [address] [place] [address] 12/28/2023 Serge Solis Plan Of Treatment Next Appt Details Provider Name:Lisette Anglin, 03/11/2025 08:00:00 AM, [address], [place], [address], Progress Notes * CAMMIE APARICIO NDOB: [birth year] (29 yo F)Acc No.[id number]:12/28/2023 Patient:?CAMMIE APARICIO :?Serge Bruno DDSDOB:1995???Age:28 Y???Sex: FemaleDate:12/28/2023hone:[phone]:[address] [id number]:Jarod Rowe Subjective: * Chief Complaints: * F ILLING * Electronic signature of Segre Solis on 01/10/2025 at 08:07 AM ESTSign off status: Pending * Provider: Teagan Bruno DDS Date: 02/26/2023 Generated for Printing/Faxing/eTransmitting on:?01/10/2025 08:07 AM EST
--- OUTSIDE RECORDS SUMMARY | 2024-01-04 05:00 | XMS_ITS ---
Demographics Address [address] [place] [address] Mobile Email Address Preferred Language en Marital Status unmarried Jainism Affiliation Unknown Race White Ethnic Group Not or Lati no Author Organization [facility] Address [address] [place] [address] Care Team Providers Care Split Leather Department Supervisor Name Role Phone Jarod Rowe Primary Care Provider [phone] Kelly Serge Solis Unavailable [phone] REASON FOR VISIT EXT Encounters Encounter Location Date Provider Diagnosis [facility] [address] [place] [address] 01/04/2024 Serge Solis Plan Of Treatment Next Appt Details Provider Name:Lisette Anglin, 03/11/2025 08:00:00 AM, [address], [place], [address], Progress Notes * CAMMIE APARICIO NDOB: [birth year] (29 yo F)Acc No.[id number]:01/04/2024 Patient:?CAMMIE APARICIO :?Serge Bruno DDSDOB:1995???Age:28 Y???Sex: FemaleDate:01/04/2024hone:[phone]:[address] [id number]:Jarod Rowe Subjective: * Chief Complaints: * E XT * Electronic signature of Serge Solis on 01/10/2025 at 08:07 AM ESTSign off status: Pending * Provider: Teagan Bruno DDS Date: 03/05/2023 Generated for Printing/Faxing/eTransmitting on:?01/10/2025 08:07 AM EST
--- OUTSIDE RECORDS SUMMARY | 2024-03-31 04:30 | XMS_ITS ---
Demographics Address [address] [address] Mobile Email Address Preferred Language en Marital Status unmarried Taoism Affiliation Unknown Race White Ethnic Group Not or Lati no Author Organization [facility] Address [address] [place] [address] Care Team Providers Care Rewinder Operator Helper Name Role Phone Jarod Rowe Primary Care Provider [phone] Kelly Gladys Esthela Unavailable [phone] Encounters Encounter Location Date Provider Diagnosis [facility] [address] [place] [address] 03/31/2024 Esthela Graham Plan Of Treatment Next Appt Details Provider Name:Lisette Anglin, 03/11/2025 08:00:00 AM, [address] [place], [place], [address], Progress Notes * CAMMIE APARICIO NDOB: [birth year] (29 yo F)Acc No.[id number]:03/31/2024 Patient:?CAMMIE APARICIO :?Esthela GrahamDOB:1995???Age:28 Y???Sex: FemaleDate:03/31/2024Phone:[phone]:[address] [id number]:Jarod Rowe * Electronic signature of Esthela Shahriarkrunal on 01/10/2025 at 08:08 AM ESTSign off status: Pending * Provider: Jennifer Graham Date: 0 03/31/2024 Generated for Printing/Faxing/eTransmitting on:?01/10/2025 08:08 AM EST
--- OUTSIDE RECORDS SUMMARY | 2025-01-01 10:05 | XMS_ITS | Encounter Summary ---
Demographics Address [address] [place] [address] Home Phone Mobile Phone Email Address Preferred Language en Marital Status Unmarried Roman Catholic Affiliation Unknown Race White Ethnic Group Unknown Author Organization [facility] Address [address] [place] [address] Care Team Providers Care Drip Molder Name Role Phone Unavailable Primary Care Provider Unavailabl e Reason for Visit * ReasonCommentsAcne Encounter Details DateTypeDepartmentCare Team (Latest Contact Info)Uhpklrigxhb54/20/2025 10:05 AM ESTOffice Visit [facility] [address] [facility] [address] [place] [address] Stiven Bejarano APRN-CNP [address] [facility] [address] [place] [address] Acne vulgaris (Primary Dx); Facial angiofibroma; Keloid scar Social History Tobacco UseTypesPacks/DayYears UsedDateSmoking Tobacco: NeverSmokeless Tobacco: NeverCommentsUnknownSex and Gender InformationValueDate RecordedSex Assigned at BirthNot on fileLegal BsnNuylfq72/15/2023 7:09 PM EDTGender Identity Not on fileSexual OrientationNot on filedocumented as of this encounter Progress Notes * WILDER Salvador - 01/01/2025 10:05 AM EST Images from the original note were not included. Follow up Diagnosis: Acne Location: face Last visit: 3 months ago Symptoms: blackheads Status: improving Treatments tried and failed: OTC Acne Products Current treatment: Tretinoin cream Lesions: Location: right nose Duration: weeks Quality: denies pain, denies itch, denies bleeding Modifying factors: aggravated by picking Associated symptoms: bump Treatments: none Follow up Diagnosis: keloid Location: right upper back Last visit: 3 months ago Symptoms: raised Status: improving Procedure performed: Intralesional Kenalog 0.2 of K 10 Number of treatments to date: 1 All pertinent medical history, medications, and allergies were reviewed. General Exam: alert, oriented to person, place, and time, normal affect, well appearing Unaccompanied A focused exam completed based on patient reported problems, see below: Skin Exam 1. ACNE VULGARIS Head - Anterior (Face) Scattered comedones and inflammatory pustules. Improved since last visit The patient was counseled that it may take up to 2-3 months to notice significant improvement of the acne. The use of non-comedogenic cleansers and moisturizers was recommended. Acne treatment plan given today. Start Spironolactone 25 mg once daily, continue Tretinoin cream. 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 No treatment is necessary. Briefly discussed electrodesiccation for cosmetic treatment at $30/lesion and patient declines today. 3. KELOID SCAR Right Shoulder - Posterior Erythematous, firm dermal papule/plaque. Given symptoms, recommend treatment with ILK today. ILK today, see MAR for details. No charge per provider - Intralesional Kenalog Injection - Right Shoulder - Posterior Consent: The risks and benefits of intralesional kenalog were discussed prior to the procedure. Specifically, the risk of skin atrophy was reviewed. It was also emphasized that multiple treatments may be necessary. Verbal consent was obtained from the patient/parent. Method: See MAR for details on administration. The patient/parents were instructed to massage the injection site(s) following the procedure. Instructed to call for any questions or problems that occur. Areas injected: Right Shoulder - Posterior Concentration injected: See MAR for details on administration. The patient/parents were instructed to massage the injection site(s) following the procedure. Instructed to call for any questions or problems that occur. Amount injected (mL): 0.5 ml of K5 # lesions injected: 1 This Visit - triamcinolone acetonide (Kenalog) injection 5 mg Next Visit: 3 months documented in this encounter Miscellaneous Notes * Addendum Note - WILDER Salvador - 01/01/2025 10:05 AM ESTAddended by: STIVEN BEJARANO on: 01/01/2025 10:58 AM Modules accepted: Level of Service documented in this encounter Plan of Treatment DateTypeDepartmentCare Team (Latest Contact Info)Xqjnycyqcus50/20/2026 9:30 AM ESTOffice Visit [facility] [address] [place] [address] Nikki Cotter PA [address] [place] [phone] documented as of this encounter Procedures Procedure NamePriorityDate/TimeAssociated DiagnosisCommentsDER [facility] INTRALESIONAL KENALOG KZRJETPMRFhvqijr01/20/2025 10:31 AM EST Keloid scar documented in this encounter Results * Intralesional Kenalog Injection (01/01/2025 10:31 AM EST) Narrative Esthela Sy MA - 01/01/2025 10:31 AM EST Consent: The risks and benefits of intralesional kenalog were discussed prior to the procedure. Specifically, the risk of skin atrophy was reviewed. It was also emphasized that multiple treatments may be necessary. Verbal consent was obtained from the patient/parent. Method: ??See MAR for details on administration. The patient/parents were instructed to massage the injection site(s) following the procedure. Instructed to call for any questions or problems that occur. Areas injected: ??Right Shoulder - Posterior Concentration injected: ??See MAR for details on administration. The patient/parents were instructed to massage the injection site(s) following the procedure. Instructed to call for any questions or problems that occur. Amount injected (mL): ??0.5 ml of K5 # lesions injected: ??1 Authorizing ProviderResult TypeResult StatusNatalie A Felter TIN CUTTER-CNPDERM PROCEDURE ORDERABLESFinal Result documented in this encounter Visit Diagnoses Diagnosis Acne vulgaris- Primary Other acne Facial angiofibroma Tuberous sclerosis Keloid scar documented in this encounter
--- OUTSIDE RECORDS SUMMARY | 2025-01-03 19:08 | XMS_ITS | Continuity of Care Document ---
Demographics Address [address] [place] [address] Phone Email Address Preferred Language Hungarian Marital Status Unknown Worship Affiliation Protestant (non-Cat holic, non-specific) Race White Additional Race(s) Unavailable Ethnic Group Not or Lati no Author Organization [facility] Address [address] [place] [address] Phone Care Team Providers Care Airport Refueling Handler Name Role Phone Wang Sy DO Primary Care Provider [phone] Wang Sy DO Attending Provider Edie Dolan APRN Attending Provider [phone] Jeannine Allen ENVIRONMENTAL PROJECTS ADVISOR Attending Provider Yoanna Whitehead RD Attending Provider Unavailab Celeste Patino DNP Attending Provider Prince Quiroz APRN Attending Provider Care Teams Patient Care Team Team Status: Active Member Role/Relationship Status Dates Krystina Schuster Airfield Engineer Officer Active Livan Linda Care ProviderActive Visit Care Team Team Status: Inactive Member Role/Relationship Status Dates Wang Sy DO Primary Care Provider Active Start: October 09, 2024 End: October 09, 2024Wang Sy DOAttending ProviderActiveStart: October 09, 2024 End: October 09, 2024 Visit Care Team Team Status: Inactive Member Role/Relationship Status Dates Wang Sy DO Primary Care Provider Active Start: October 21, 2024 End: October 21Curtis Arizmendi ProviderActiveStart: October 21, 2024 End: October 21, 2024 Visit Care Team Team Status: Inactive Member Role/Relationship Status Dates Wang Sy DO Primary Care Provider Active Start: October 23, 2024 End: October 23, 2024Setcharly Sy DOAttending ProviderActiveStart: October 23, 2024 End: October 23, 2024 Visit Care Team Team Status: Inactive Member Role/Relationship Status Dates Wang Sy DO Primary Care Provider Active Start: November 05, 2024 End: November 05, 2024Curtis Eldridge ProviderActiveStart: November 05, 2024 End: November 05, 2024 Visit Care Team Team Status: Inactive Member Role/Relationship Status Dates Wang Sy DO Primary Care Provider Active Start: November 20, 2024 End: November 20carlos Whitehead RDAttending ProviderActiveStart: November 20, 2024 End: November 20, 2024 Visit Care Team Team Status: Inactive Member Role/Relationship Status Dates Wang Sy DO Primary Care Provider Active Start: November 20, 2024 End: November 20, 2024Jemontserrat Saenz , DNPAttending ProviderActiveStart: November 20, 2024 End: November 20, 2024 Visit Care Team Team Status: Inactive Member Role/Relationship Status Dates Wang Sy DO Primary Care Provider Active Start: November 25, 2024 End: November 25, 2024Setcharly Sy DOAttending ProviderActiveStart: November 25, 2024 End: November 25, 2024 Visit Care Team Team Status: Inactive Member Role/Relationship Status Dates Wang Sy DO Primary Care Provider Active Start: December 18, 2024 End: December 18carlos Whitehead , RDAttending ProviderActiveStart: December 18, 2024 End: December 18, 2024 Visit Care Team Team Status: Inactive Member Role/Relationship Status Dates Wang Sy DO Primary Care Provider Active Start: December 23, 2024 End: December 23, 2024Jemontserrat Saenz , DNPAttending ProviderActiveStart: December 23, 2024 End: December 23, 2024 Visit Care Team Team Status: Active Member Role/Relationship Status Dates Wang Sy DO Primary Care Provider Active Start: December 29, 2024 Wang Sy DOAttending ProviderActiveStart: December 29, 2024 Visit Care Team Team Status: Inactive Member Role/Relationship Status Dates Wang Sy DO Primary Care Provider Active Start: January 03, 2025 End: January 03, 2025Curtis Vasquez ProviderActiveStart: January 03, 2025 End: January 03, 2025 Patient Care Team Team Status: Inactive Member Role/Relationship Status Dates Prince Quiroz APRN Attending Provider Active Start: January 03, 2025 End: January 03, 2025 Chief Complaint and Reason for Visit Chief Complaint Admit Date 2 week October 09, 2024 11 :21am sinus sx October 21, 2024 12:47pm H/A-MRI request- issues with school Se ptember 2024 2:13pm thinks she has COVID November 05 12:31pm wm November 20, 2024 8: 12am follow up November 20, 2024 8: 53am Discuss note for job and family services November 25, 2024 10:09am wm December 18, 2024 8 :18am 4-week December 23, 2024 10:38am Generalized Weakness December 29, 2024 8:15am sore throat, headache, ear pain, poss ut i January 03, 2025 9:00am Reason for Visit Admit Date Anxiety October 09, 2024 11 :21am POTS (postural orthostatic tachycardia s yndrome) October 09, 2024 11:21am PTSD (post-traumatic stress disorder) [facility] 2024 11:21am COVID-19 long hauler October 09, 2024 1 1:21am Acute viral sinusitis October 21 12:47pm Generalized anxiety disorder October 132024 2:13pm Post-nasal drip October 23, 2024 2:13pm Dizziness October 23, 2024 2:13pm Headache October 23, 2024 2:13pm Acute maxillary sinusitis, unspecified S eptember 2024 12:31pm Abnormal weight gain November 20, 2024 8 :53am Anxiety November 20, 2024 8: 53am BMI 28.0-28.9,adult November 20, 2024 8: 53am Chronic fatigue syndrome November 20 8:53am Depression November 20, 2024 8: 53am Dietary surveillance and counseling Novo 2024 8:53am Exercise counseling November 20, 2024 8: 53am OCD (obsessive compulsive disorder) Novo 2024 8:53am Overweight (BMI 25.0-29.9) November 20, 2024 8:53am Post-COVID syndrome November 20, 2024 8: 53am POTS (postural orthostatic tachycardia s yndrome) November 20, 2024 8:53am PTSD (post-traumatic stress disorder) Oc tober 2024 8:53am POTS (postural orthostatic tachycardia s yndrome) November 25, 2024 10:09am COVID-19 long hauler November 25, 2024 10:09am Generalized weakness November 25, 2024 10:09am Abnormal weight gain December 23, 2024 10:38am Anxiety December 23, 2024 10:38am BMI 28.0-28.9,adult December 23, 2024 10:38am Chronic fatigue syndrome December 23, 2024 10:38am Depression December 23, 2024 10:38am Dietary surveillance and counseling Nain delgado 2024 10:38am Exercise counseling December 23, 2024 10:38am OCD (obsessive compulsive disorder) Nain rachel 2024 10:38am Overweight (BMI 25.0-29.9) December 10:38am Post-COVID syndrome December 23, 2024 10:38am POTS (postural orthostatic tachycardia s yndrome) December 23, 2024 10:38am PTSD (post-traumatic stress disorder) No vember 2024 10:38am Acute bacterial sinusitis January 03, 2025 9:00am Dysuria January 03, 2025 9:00am Reason for Referral Type Reason(s) Provider Provider Contact Information P rovider Address Start Date Obsessive-compulsive disorder Posttraumatic stress disorder Anxiety Depression Mood wulbrfqkJ32.8 - Other obsessive-compulsive disorder,F43.10 - Post-traumatic stress disorder, unspecified,F41.9 - Anxiety disorder, unspecified,F33.0 - Major depressive disorder, recurrent, mild,F39 - Unspecified mood [affective] disorder Fabi Richardson for counselingNov2024 Allergies, Adverse Reactions, Alerts Allergen Type Severity Reaction Last Updated Verified Status amoxicillin Allergy Unknown suidical thoug hts/ Vertigo January 03, 2025 9:18am Yes Active azithromycin Allergy Unknown Dizzy on high doses Nov ember 2024 9:18am Yes Active cephalexin Allergy Unknown Gastrointestina l Upset, stomach upset January 03, 2025 9:18am Yes Active ciprofloxacin Allergy Unknown Unknown Reaction Novem cooper 2024 9:18am Yes Active clavulanic acid Allergy Unknown suidical th oughts/ Vertigo January 03, 2025 9:18am Yes Active doxycycline Allergy Unknown Headache, extr navdeep headache January 03, 2025 9:18am Yes Active escitalopram Allergy Unknown Gastrointestina l Upset, made me feel weird January 03, 2025 9:18am Yes Active modafinil Allergy Unknown hallucinations January 03, 2025 9:18am Yes Active nitrofurantoin Allergy Unknown dizziness January 03, 2025 9:18am Yes Active sertraline Allergy Unknown suicide thoughts January 03, 2025 9:18am Yes Active sulfamethoxazole Allergy Unknown Nausea, stomach ups et January 03, 2025 9:18am Yes Active trimethoprim Allergy Unknown Nausea, stomach upset N ovember 2024 9:18am Yes Active Social History Smoking Status Status Start Date End Date Date of Observa tion Ex-smoker (finding) October 20, 2024 1:17pm Observation Status Observation Response Date of Response Legal Sex Female (finding) Sex Assigned At [facility]FemaleRe[facility] 1995[facility] Family History Relationship Condition Age at Onset Recorded Date/T katiana Not Specified No pertinent family history Unknown fatherHypertensionUnknownFamily history of mental disorderUnknownAnxietyUnknown Alcohol useUnknownmotherFamily history of mental disorderUnknownbrotherFamily history of mental disorderUnknownsisterHistory of migraineUnknown Problems Active Problems Problem Diagnosis/Recorded Date Onset Date Stat us Post-COVID syndrome April 03, 2023 9:09am Unknown Active COVID-19 long hauler April 03, 2023 9:09am Unknow n Active Exercise counseling June 12, 2024 6:56am Unknown Active Generalized anxiety disorder September 14, 2022 7:29pm U nknown Active PTSD (post-traumatic stress disorder) April 03 9:09am Unknown Active Adjustment disorder with dep ressed mood April 03, 2023 9:09am Unknown Active Benign paroxysmal positional vertigo April 07 2:05pm Unknown Active Acute maxillary sinusitis, unspecified November 05, 2024 12:36pm Unknown Active Post-nasal drip October 23, 2024 2:09pm Unknown Active Overweight (BMI 25.0-29.9) November 20, 2024 8:34am Un known Active Tension headache April 03, 2023 9:09am Unknown Active Chronic nausea January 28, 2024 8:45am Unknown Active Sleep difficulties April 03, 2023 9:09am Unknown Active Vitamin B12 deficiency December 11, 2023 8:20am Unkno wn Active Dietary surveillance and counseling June 12, 2024 6:56 am Unknown Active Abnormal weight gain June 12, 2024 6:55am Unknown Active Mood disorder September 14, 2022 7:29pm Unknown Act kaylynn Anxiety April 03, 2023 9:09am Unknown A ctive Depression April 03, 2023 9:09am Unknown A ctive Chronic fatigue syndrome April 03, 2023 9:09am Un known Active OCD (obsessive compulsive disorder) June 12, 2024 7:44 am Unknown Active Obesity, Class I, BMI 30-34.9 June 12, 2024 7:58am Unk nown Active BMI 28.0-28.9,adult November 20, 2024 8:34am Unknown Active BMI 30.0-30.9,adult June 12, 2024 7:58am Unknown Active BMI 31.0-31.9,adult July 28, 2024 8:31am Unknown Active POTS (postural orthostatic t achycardia syndrome) April 03, 2023 9:09am Unknown Active POTS (postural orthostatic t achycardia syndrome) May 08, 2023 9:34am Unknown Active Vestibulitis of ear June 12, 2024 7:44am Unknown Active Inactive/Resolved Problems Problem Diagnosis/Recorded Date Onset Date Stat us Nausea vomiting and diarrhea April 06, 2019 1:11a m Unknown Resolved UTI (urinary tract infection) May 01, 2020 4:35pm Unknown Resolved Brain fog April 03, 2023 9:05am Unknown R esolved COVID-19 virus infection April 03, 2023 9:09am Un known Resolved Dizziness May 01, 2020 4:35pm Unknown Reso lved Acute sinusitis January 11, 2024 9:55am Unknown Resolved Urinary frequency February 28, 2024 9:36am Unknown Resolved Atypical chest pain March 12, 2020 6:46pm Unknown Resolved Costochondritis April 20, 2017 10:36pm Unknown R esolved Medications Medication Status Dose Units Route Directions Qty Days Refills S tart Date Stop Date End Date Reason(s) Instructions Adherence Amoxicillin-Pot Clavulanate 875-125 mg tablet Discontinued 1 TAB PO Q12H 20 10 0 April 19, 2023 12:00am May 08, 2023 9:08amMeclizine 25 mg tabletDiscontinued0.ROUTE.ZDJUMYD772Bfh 2023 10:31amJuly 2023 7:30amTAKE 1 TABLET BY MOUTH DAILYTizanidine 4 mg tabletDiscontinued0.ROUTE.OWQKOIZ393Whtw 2023 8:16amAugust 2023 8:15amTAKE 1 TABLET BY MOUTH EVERYDAY AT BEDTIMEOndansetron 4 mg tablet,disintegratingDiscontinued0.ROUTE.SVSPYGH655Icij 2023 8:16amAugust 2023 8:15amDISSOLVE 1 TABLET ON THE TONGUE TWICE A DAY NEEDEDMeclizine 25 mg tabletDiscontinued0.ROUTE.OWDWVEZ608Iclo 2023 7:30amAugust 2023 8:15amTAKE 1 TABLET BY MOUTH DAILYAzithromycin (Zithromax Z-[employer]ner) 250 mg huvogbJusvmkkdqcle4TC.KBZEBCC380Merxdt 2023 11:00pmAugust 2023 8:13am For 250 mg dose pack: take 500 mg today (day 1), then 250 mg for 4 days (days 2- 5) POAlprazolam 0.5 mg tabletDiscontinued0.5MGPODaily as needed for xnpcdec71343 January 29, 2024 11:17amFebruary 2024 9:39amAnxiety Anxiety disorder, unspecified1 tablet as needed for severe panic attack Orally once a dayPromethazine 25 mg thsgrxDvyhkehqzcox03DOABM1D as needed for nausea and gaorkree0352Kxxmmak 2024 11:33amApril 2024 7:15amFluticasone Propionate 50 mcg/actuation spray,suspensionDiscontinued0.ROUTE.RCCSTXW207 March 14, 2024 7:54amFebruary 2024 8:15amINSTILL 1 SPRAY INTO EACH NOSTRIL DAILYTizanidine 4 mg tabletDiscontinued0.ROUTE.IIQUHZR515Hdyqgman 2024 12:54pmFebruary 2024 8:15amTAKE 1 TABLET BY MOUTH EVERYDAY AT BEDTIME Gabapentin 100 mg capsuleDiscontinued0.ROUTE.ONLLNZA837Uqfpm 2024 10:09am July 28, 2024 4:17pmTAKE 2 CAPSULES BY MOUTH EVERY DAY AT BEDTIME FOR 90 DAYS Gabapentin 300 mg capsuleDiscontinued0.ROUTE.OEVEANX139Dyyhb 2024 10:09am May 29, 2024 2:45pmTAKE 1 CAPSULE BY MOUTH EVERYDAY AT BEDTIMEPrednisone 20 mg xjuoolVbvtuksxbevo65YQAZkzygo4355Tlynx 2024 11:00pmApril 2024 8:11amGabapentin 300 mg capsuleDiscontinued0.ROUTE.JLEUUFX390Njxbq 2024 2:45pmMay 2024 11:23amTAKE 1 CAPSULE BY MOUTH EVERYDAY AT BEDTIME Ondansetron 4 mg tablet,vhlwdeocvgrzuyZtosjrogfjmg7HQIQMsbns as needed for nausea and nxlmrwwh4172Tadlf 2024 7:12amSeptember 2024 11:40am Promethazine 25 mg kymywpEqldkfwpbsaf66JSQFQ3Y as needed for nausea and vomiting 287April 2024 7:14amApril 2024 8:11amAlprazolam 0.5 mg tablet Discontinued0.5MGPODaily as needed for lhhlbpb04024Rligk 2024 1:57pmMa2024 3:26pmAnxiety Anxiety disorder, unspecified1 tablet as needed for severe panic attack Orally once a dayGabapentin 300 mg capsuleDiscontinued0.ROUTE.MODVOZT220Wvp 2024 11:23amAugust 2024 10:40amTAKE 1 CAPSULE BY MOUTH EVERYDAY AT BEDTIME Alprazolam 0.5 mg tabletDiscontinued0.5MGPODaily as needed for yabxnth83651Nri 2024 3:22pmJune 2024 1:11pmAnxiety Anxiety disorder, unspecified1 tablet as needed for severe panic attack Orally once a dayGabapentin 100 mg capsuleDiscontinued0.ROUTE.ZWUHVJT666Eodd 16th, 2025 4:17pmAugust 2024 10:40amTAKE 2 CAPSULES BY MOUTH EVERY DAY AT BEDTIME FOR 90 DAYSAlprazolam 0.5 mg tabletDiscontinued0.5MGPODaily as needed for ufhcqwt26010Rbmk 26th, 2025 1:11pmAugust 2024 11:58amAnxiety Anxiety disorder, unspecified1 tablet as needed for severe panic attack Orally once a dayMetoprolol Tartrate 25 mg tabletActive0.ROUTE.MWSQUUG5856Wycw 2024 12:59pmTAKE 1/2 TABLET BY MOUTH IN THE MORNING AND 1 AT BEDTIMEUnknown Cholecalciferol (Vitamin D3) 1,250 mcg (50,000 unit) capsuleActive0.ROUTE .QXKPRLQ412Koquwl 13th, 2025 12:01pmTAKE 1 CAPSULE ORALLY EVERY WEEK FOR 90 DAYS UnknownMethylprednisolone (Medrol (Warner)) 4 mg tablets,dose mclfZatkbqnvugbi7CR per package cyivqdkzng0987Yunzyw 2024 11:00pmAugust 2024 10:30amPO PER PKG DIR for 6 daysTizanidine 4 mg tabletDiscontinued0.ROUTE.UMVAWED840Ruxgcz 18th, 2025 11:55amAugust 2024 11:58amTAKE 1 TABLET BY MOUTH EVERYDAY AT BEDTIMEAlprazolam 0.5 mg tabletDiscontinued0.5MGPODaily as needed for igivizg91 300August 2024 11:58amSept2024 11:40amAnxiety Anxiety disorder, unspecified1 tablet as needed for severe panic attack Orally once a dayTizanidine 4 mg tabletActive0.ROUTE.LLZMYKW139Ohnfcq 2024 11:58amTAKE 1 TABLET BY MOUTH EVERYDAY AT BEDTIMEUnknownAmoxicillin-Pot Clavulanate 875-125 mg hecpzdBixbskpjajsn3NLTTQT71G5952Ihogbseoa 17th, 2025 8:47amOctober 2024 8:15amOndansetron 4 mg tablet,disintegratingDiscontinued 0.ROUTE.DZBZTUW463Ikcfqqbjt 18th, 2025 11:40amSept2024 3:40pm4 MG ORALLY DAILY NEEDED FOR NAUSEA AND VOMITING FOR 7 DAYSGabapentin 100 mg capsuleDiscontinued0.ROUTE.ZLOZYCH574Gruwbrjqo 18th, 2025 11:40amSept2024 3:40pmTAKE 2 CAPSULES BY MOUTH EVERY DAY AT BEDTIME FOR 90 DAYSGabapentin 300 mg capsuleDiscontinued0.ROUTE.DKDQFNY436Ijuexegmj 18th, 2025 11:40am October 30, 2024 3:40pmTAKE 1 CAPSULE BY MOUTH EVERYDAY AT BEDTIMEGabapentin 300 mg capsuleActive0.ROUTE.PLOFBOK377Xaobqlhhe 18th, 2025 3:40pmTAKE 1 CAPSULE BY MOUTH EVERYDAY AT BEDTIMEUnknownGabapentin 100 mg capsuleActive0.ROUTE .DDFTPHH357Qsbfwcivq 18th, 2025 3:40pmTAKE 2 CAPSULES BY MOUTH EVERY DAY AT BEDTIME FOR 90 DAYSUnknownOndansetron 4 mg tablet,disintegratingActive0.ROUTE .JFHUKAE353Xvkpjugoc 2024 3:40pm4 MG ORALLY DAILY NEEDED FOR NAUSEA AND VOMITING FOR 7 DAYSUnknownAlprazolam 0.5 mg tabletDiscontinued0.5MGPODaily as needed for cchkpwi01638Cvdfkbvsq2024 11:39amOctober 2024 11:29am Anxiety Anxiety disorder, unspecified1 tablet as needed for severe panic attack Orally once a dayAlprazolam 0.5 mg tabletActive0.5MGPODaily as needed for qlwkfes70154 December 08, 2024 11:29amAnxiety Anxiety disorder, unspecified1 tablet as needed for severe panic attack Orally once a dayUnknownHydroxyzine Hcl 25 mg ftqhnyBohlifvzvymx22BRHXH9Z as needed for iwjhzec507Sowdp 2017 12:00amMay 2017 12:57pmZonisamide (Zonegran) 25 mg RwuazkyJfqowjtlzujz99XRTBP64WGov 2017 11:00pmMay 2017 5:30pm Hydroxyzine Hcl 25 mg npuzjyBlmkwsnvbzhn94YWIHV8A as needed for lsewuoz484Yko 2017 11:00pmJanuary 2018 10:32amPromethazine 25 mg tabletDiscontinued 10AMFLA0G as needed for nausea and hkqsytma670Rxtcllba 2019 12:00amJanuary 2020 5:11pmAscorbic Acid (Vitamin C) (Vitamin C) 1,000 mg Tablet Ilestawrjqlb8BAPVHvwbqQeavmwk 2020 12:002022 1:06pmAlbuterol Sulfate 2.5 mg /3 mL (0.083 %) solution for nebulizationDiscontinued2.5MG IBSUOICXJML2LKadjphh 2020 12:002022 1:06pmAlprazolam 0.5 mg tabletDiscontinued0.5MGPOThree times dailyJanuary 2020 12:002022 7:11pmSertraline 25 mg jhoqujYwtmhewwfzjb71VZGONmkfhPdimgwn 2020 12:00st 2022 7:12pmZinc 50 mg KouvwiCddpfqildxjp69TWDIWcvpqBndfqat 2020 12:00st 2022 7:12pmIbuprofen 600 mg clqxdyYqffcyxsaznd662 MGPOThree times dailyJanuary 2020 12:002022 7:12pmAlbuterol Sulfate 90 mcg/actuation HFA aerosol ctasefmUouqwmdhbfdg3BXETBVUACVKNBE4RUaesgmh 2020 12:2022 1:06pmAcetaminophen (Tylenol Extra Strength) 500 mg VntkqesJengnladqjud3315VLDQNbqi times daily as needed for PainJanuary 2020 12:002022 7:12pmVitamin B Complex CapsuleDiscontinued1 CAPPODailyJanuary 2020 12:002022 7:12pmCholecalciferol (Vitamin D3) (Vitamin D3) 25 mcg (1,000 unit) MhfuqnaAmthlzmqyegf24HIORSIksrb March 12, 2020 12:002022 1:06pmDexamethasone 6 mg tablet Xjvgyzdavfre4XINPXmxhb77Lzbkxnj 29th, 2021 12:002022 1:06pm Meclizine 50 mg NwpbanCcnnsipnjzeh49CDZAEtobtAmvseo 2022 11:00pmAugust 2022 7:12pmHydroxyzine Hcl 10 mg hadvjgKqdmpshlhwiv87BQWTDpnydOkuqrp 2022 11:00pmFebruary 2023 1:00pmMetoprolol Tartrate 25 mg HzjysdOxowaugtmgvq02 MGPOTwice dailyAugust 2022 11:00pmAugust 2022 7:12pmGabapentin 100 mg bbmyivaIsoukiqawawk647OXUWVenyq dailyAugust 2022 11:00pmFebruary 2023 8:52amSodium Chloride 1,000 mg tablet,ziskfafEnrkhviweojk1747VMOOYqisv times dailyAugust 2022 11:00pmDeceer 2023 8:29amMetoprolol Tartrate 25 mg EmjkvoGjfzhztfrejy17.3BRNZQaqcl8Yoavvz 2022 11:00pmMarch 2023 9:11am Metoprolol Tartrate 25 mg PbjupiWvhtmddhyprb30NIOZBptltjb0Wzslhv 2022 11:00pmMay 2023 1:53pmGabapentin 100 mg vlrrnhoMqjnrpyavsnx906ZMWMHgclk at bedtimeFebruary 2023 8:46amSeptember 2023 10:49amMeclizine 25 mg yuctldPqjppkkahrxc99DSFPDwmwx daily as needed for Dizzinessbruary 2017 12:00amMay 2017 12:57pmDiazepam (Valium) 2 mg AtcurgGxuijjtxochy5GTJDJujzj daily as needed for DizzinessFebruary 2017 12:00amMay 2017 12:57pm Cephalexin 500 mg iwtjuqaLekvkwgqhtcn031SPMUDhrd times dailyFebruary 2017 12:00[facility] 2017 8:46pmAmoxicillin-Pot Clavulanate 875-125 mg tablet Argpgbllbeig2TOXHDVdchy dailyFebruary 2017 12:00[facility] 2017 8:46pm Promethazine 25 mg XymhqfZppbesskezbi23CRSEQ5T as needed for Smgewr974Tvnvxfxh 2017 12:00am[facility] 2017 8:46pmGabapentin 400 mg AfblycpLvgmbsijwcbn483 MGPODailyJanuary 2018 12:002022 6:52pmCyclobenzaprine 10 mg rtjxuiKoodssejnbhx07XPSPLsrmm times daily as needed for muscle byluz735Vhrrbfu 2018 12:00amJanuary 2018 9:35amLoratadine-Pseudoephedrine (Loratadine-D) 10-240 mg tablet extended release 24 pyShpcfdeppxpj3ZEUZTHzvva as needed for sinus mucnmxdt240Asvuyaq 2018 12:00amJanuary 2018 9:36am Fluticasone Propionate (Flonase Allergy Relief) 50 mcg/actuation [place],AsasrdvvacBfahfzxbqtkr5HOAGFAZPOUJVJTJtocdfVcyfeea 2018 12:00am September 13, 2022 7:11pmCephalexin (Keflex) 500 mg WuoldjmKmkffvynxexc856TWWZ Three times tbltt396Rylnrds 2018 12:00amFebruary 2018 2:08pm Tizanidine 4 mg efnfrdQltrhxmjlhli2QYCTNeuypZfjnxnql 2018 12:00amAugu2022 7:12pmCephalexin 500 mg MsnwsymFfkxqufbtpzg465EOOFP6X0316Hwgow 2020 11:00pmAugust 2022 1:06pmHydroxyzine Hcl 25 mg tabletDiscontinuedMGPO March 30, 2023 12:00amFebruary 2023 8:52amFreeTextSi tablet as needed orally three times daily prn; Note: Source Status: Refill; Refills:3; Provider: Kerrie Piña MFluticasone Propionate 50 mcg/actuation spray,suspension Jhwwopaqiktu5RZPWJAIFCMFHGIBYkusvShvmfsdg 2023 12:00amJuly 20, 2023 8:36amFreeTextSi spray in each nostril Nasally Once a day; Note: Source Status: Taking; Refills: 5; Provider: Kerrie Piña MOndansetron 4 mg tablet,phrezadtxcdcrfUgjokkpukkvd2SLEHoa neededuary 2023 12:00amJune 2023 8:16amGabapentin 300 mg bxwwcldZsjsxkarzfha482ZBGFZexqe at bedtime March 30, 2023 12:002023 8:37amFreeTextSi capsule with two 100 mg capsules to equal 500 mg Orally q hs; Note: Source Status: Taking; Refills: 0; Provider: Yasmany BonnieIbuprofen 200 mg jjexbmKaqfoy651GIOTvn neededbruary 2023 12:00amFreeTextSi tablets Orally every 6 hrs/PRN; Note: Source Status: Taking; Provider: Kerrie Piña( )Unknown Acetaminophen (Tylenol Extra Strength) 500 mg cdpimhJhdehbrohgyr9MOWAWZsuuh 6 hoursFebruary 2023 12:00amJune 2024 8:13amFreeTextSi tablet as needed Orally every 6 hrs; Note: Source Status: Taking; Provider: Kerrie Piña ( )Tizanidine 4 mg mqlqdgLsjzwxaknrxl7KWRTbfjezPkywvcuw 2023 12:00amMarch 2023 9:11amFreeTextSi tablet Orally once daily, at HS; Note: Source Status: Taking; Refills: 1; Provider: Kerrie Piña MAlprazolam 0.5 mg tabletDiscontinued0.5MGPODaily as neededFebruary 2023 12:00amFebruary 2023 8:45amFreeTextSi tablet as needed for severe panic attack Orally once a day; Note: Source Status: Taking; Refills: 0; Qty: 14 Tablet; Provider: Kerrie Piña MHydroxyzine Hcl 25 mg syogpfVpnasehjtrdx95MGMTRtdwkvhr 2023 8:47amOctober 2023 8:07amFreeTextSi tablet as needed orally three times daily prn; Note: Source Status: Refill; Refills:3; Provider: Kerrie Piña MTizanidine 4 mg nhdjqgVkggpijilzkt5BDDGVfbjk at bedtimeMarch 2023 9:11am July 30, 2023 8:16amGabapentin 300 mg rroephgKpdvnrelmyok754YPDYLkifc at bedtimeJune 2023 8:36amSeptember 2023 10:49amHydroxyzine Hcl 25 mg bgcysaCzaoes05NDKBKjtuf times daily as neededOctober 2023 8:05amUnknown Acetaminophen (Tylenol Extra Strength) 500 mg eoivnlDbfjjt168IUBNJfcup 6 hours as neededJune 2024 8:09amFreeTextSi tablet as needed Orally every 6 hrs; Note: Source Status: Taking; Provider: Kerrie Piña ( ) UnknownMetoprolol Tartrate 25 mg awfdiiWhpxeflainly76.5MGPODailyMarch 2023 9:09amMay 2023 1:53pm1/2 tab in the AM, 1 tab in the pmMetoprolol Tartrate 25 mg bntpdpWefywztsfcae40UKVTVoljrQzu 2023 11:00pmMay 2023 1:57pmMetoprolol Tartrate 25 mg aluusaSpypwgwqmccp92EUOG.MZPXPZU636123Hxm 2023 1:54pmJuly 2023 12:50pm1/2 tab by mouth in the morning and one tab by mouth at bedtime;Hydroxyzine Hcl 10 mg avtkzpImeptequecuy25JFWRWhyal times daily as neededJun2023 11:00pmDeceer 2023 8:28amPrednisone 20 mg auedsnHzfewddsbnou3JWadouj9785Lvrt 2023 11:00pmAugust 2023 8:15am3 p.o. daily x 3 days, 2 p.o. daily x 3 days, 1 p.o. daily x 3 days -with food Metoprolol Tartrate 25 mg fwvqtfNyowulhgtywk44WLLW.KAWWBHQ098008Nbli 2023 12:50pmJuly 2024 12:59pm1/2 tab by mouth in the morning and one tab by mouth at bedtime;Meclizine 25 mg dzrowoNblxunpcvdon93PYIWUercwXxshho 27th, 2024 8:13amOctober 2023 8:07amOndansetron 4 mg tablet,disintegrating Gltwrckbkluo4ILCVZxldz [facility] 8:14amApril 2024 7:15am Tizanidine 4 mg ddmsiyRmjwwvdiosxa7FDJPIrorg at bedtimeVirgin[facility]2023 8:15am March 21, 2024 12:54pmMeclizine 25 mg hijyfiAemssi48JUYXScgyt as needed December 11, 2023 8:06amUnknownGabapentin 300 mg vrlqkgvKqazkwcpifle671TDVW Daily at jpghegq39763Gxfvmzjxg 2023 10:48amMarch 2024 10:10am Gabapentin 100 mg svvpzmqVghrvjmwkfea554LDXSMlxve at ipfgwiz473693Pzxemgmsw 16th, 2024 10:49amMarch 2024 10:10amSemaglutide (Weight Loss) 0.25 mg/0.5 mL pen injectorDiscontinued0.25MGSUBCUTevery week2023 12:00am March 28, 2024 10:08amadminister weeks 1 through 4 of therapyFluticasone Propionate 50 mcg/actuation spray,wrkvkevihaFmbqoyeqcpkc0DESCOCNZGHKRHSUFxbpt March 31, 2024 8:14amAugust 2024 7:36amTizanidine 4 mg tablet Rjtgswmhgkva9AAYXJyhgt at bedtimeFebruary 2024 8:14amAugust 2024 11:55amAlprazolam 0.5 mg tabletDiscontinued0.5MGPODaily as needed for sbcvkdu23 100February 2024 9:25amApril 2024 1:58pmAnxiety Anxiety disorder, unspecified1 tablet as needed for severe panic attack Orally once a dayCholecalciferol (Vitamin D3) 1,250 mcg (50,000 unit) capsule Dkftvcqfhwyp0835NLEANvwflx prlr16319Ogfutbgw 2024 12:00amAugust 2024 12:01pmFluticasone Propionate 50 mcg/actuation spray,suspensionDiscontinued1 SPRAYINTRANASALDaily as neededAugust 2024 7:31amSeptember 2024 2:11pmTretinoin 0.025 % creamDiscontinuedAPPLICTOPICALJuly 2024 11:00pm September 25, 2024 7:36amMidodrine 5 mg tabletDiscontinuedMGPOJuly 2024 11:00pmAugust 2024 10:31amPantoprazole 40 mg tablet,delayed release (DR/EC)DiscontinuedMGPOly 2024 11:00pmAugust 2024 7:36amPrednisone 20 mg sknsasFuygplpgkale81KMOXYbitu9223Tnuk 2024 11:00pmAugust 2024 7:34amAmoxicillin 875 mg euxjdnZjnmjjtzlrmf282FQDRIvynj khskn8686Qllq 2024 11:00pmAugust 2024 7:31amPantoprazole 40 mg tablet,delayed release (DR/EC)Mpoqxx50DPTMXjlzs dailyAugust 2024 7:33amUnknownTretinoin 0.025 % fxeyvYwrokf5IYHEGEWURNSOYVyyyn a WeekAugust 2024 7:34amUnknownMidodrine 5 mg skcdewCrlyfq5EZFJPadgw times dailyAugust 2024 10:31amUnknownTirzepatide (Weight Loss) 2.5 mg/0.5 mL pen injectorDiscontinued2.5MGSUBCUTevery gus2024 11:00pmAugust 2024 10:39amTirzepatide (Weight Loss) 2.5 mg/0.5 mL pen wnywbifqSlmeegbhfyss95ALRKPGNWqhikc [facility]2024 10:37am Patt 2024 1:34pm15 units once weekly (compound from online per patient)Gabapentin 100 mg cacsnfjChgoawdxutii467NKYIExvfk at bedtimeVirginia Hospital Centert 2024 10:39amSept2024 11:40amGabapentin 300 mg capsuleDiscontinued 300MGPODaily at [facility]24 10:39amSept2024 11:40am Tirzepatide (Weight Loss) 2.5 mg/0.5 mL pen xyxbxuyqZfmuombwbrya64TIMGOLVUxjnce 2024 1:33pmOct2024 8:20am18 units once weekly (compound from online per patient)Methylprednisolone (Medrol ([employer]ner)) 4 mg tablets,dose pyijDziqbzqcbjct7XMbqz package mhewosnhyh587Avgekbejy 8th, 2025 11:00pmpt2024 11:32amPO PER PKG DIR for 6 daysNaltrexone (Naltrex) 1.5 mg capsuleDiscontinued0.5MGPO.at [facility] 2023 12:00amJune 2023 8:49am0.5 mg at HSNaltrexone (Naltrex) 1.5 mg capsuleDiscontinued0.5MGPO.at June 2023 8:49amAugust 2023 8:15am1 mg at HSNaltrexone (Naltrex) 1.5 mg tldwjzzRhvwyvjcoedn1COYN.at [facility] 2023 8:14amOctober 2023 8:07amNaltrexone (Naltrex) 1.5 mg ueoppreLhnlmsjgawmw5VPJY.at Octcar[facility] 2023 8:06amMay 2024 7:36am1 mg at HSNaltrexone (Naltrex) 1.5 mg capsule Ozmyhahvmjzm7CAAU.at HSMay 2024 7:35amAugust 2024 7:33am1 mg at HS Meclizine 25 mg ssylgsXzyyzhnhskxu79FCJHPxsazLfthxxzf 2023 12:00amMarch 2023 10:19amMeclizine 25 mg eeftjrFceadvysegzn94LYJCRfufs66977Tycjj 2023 10:18amMay 2023 10:31amCellulose (Bulk) powderDiscontinuedEACH MISCELLANEOctcarroll county memorial hospital 2023 11:00pmOctober 2023 8:05amGelatin Capsules (Empty) (Capsule #3) capsuleDiscontinuedCAPPOOctcarroll county memorial hospital 2023 11:00pmOctober 2023 8:05amSyringe With Needle, Safety (Bd Integra Syringe) 3 mL 25 gauge x 1 syringeActiveML.ROUTE.RFCUMSSRR85Wqykxdw 2023 11:00pmAs directed Cyanocobalamin (Vitamin B-12) 1,000 mcg/mL uxqnwhgdLsoxhkvonkrn4785UCZLSnjjox weekOct2023 11:00pmDecember 2023 8:29amCyanocobalamin (Vitamin B-12) 1,000 mcg/mL diwnnwmhZkfjvo2688ZJMZOjhieb monthJanuary 28, 2024 8:27am UnknownFluticasone Propionate (Flonase Allergy Relief) 50 mcg/actuation spray,fostrgrfuqMstlpnhnxopi3RMOLHKDMXSUNGBIJbfvh438Cixyrrvj 2023 12:00am March 14, 2024 7:54amadminister into each nostrilAzithromycin 250 mg tablet Sdzikywzhtsx7UT.KEKFBUB273Vnoaiscj 2023 12:00amDecember 2023 8:27am For 250 mg dose pack: take 500 mg today (day 1), then 250 mg for 4 days (days 2- 5) POPrednisone 20 mg ydvlvoAgqlwqleobku96IVONGoqyi hfbjm7663Jpjvhfwp 2024 12:00amApril 2024 8:11amMetformin 500 mg tablet extended release 24 hr Ayhxzbmnxrpn025EWRMApnyd50037Sopqr 2024 11:00pmMay 2024 10:01amClass 1 obesity Body mass index (BMI) of 30.0 to 30.9 in adult Obsessive-compulsive disorder Postural orthostatic tachycardia syndrome Posttraumatic stress disorder Depression Anxiety Obesity, class 1 Body mass index [BMI] 30.0-30.9, adult Obsessive-compulsive disorder, unspecified Postural orthostatic tachycardia syndrome [POTS] Post-traumatic stress disorder, unspecified Depression, unspecified Anxiety disorder, unspecifiedMethylprednisolone (Medrol ([employer]ner)) 4 mg tablets,dose zecdZzkvribmsfdu4MKvif package ajobpvgljj949Igl 2024 11:00pmJune 2024 8:11amPO PER PKG DIR for 6 daysHydrocortisone 2.5 % creamActiveAPPLIC TOPICALdaily as neededSept2024 11:00pmUnknownFluticasone Propionate 50 mcg/actuation spray,bnfuiwvdyiXemesg4IZTNSLHNLZTXFSQKvvbu79641Ynuuzpupk 11th, 2025 2:09pmUnknownCefdinir 300 mg cskdyzgQgswoyywfoor616XBMHHzyfb 12 vwrju75032 November 04, 2024 11:00pmOctober 2024 8:15amPyridostigmine [place] 60 mg smhrvaLcaoof77OABEQxpgu times dailyOctober 2024 11:00pmUnknown Spironolactone 25 mg ymkuknNuzbkv62KEWHUkrhmGptcfiga 2024 12:00amUnknown Phenazopyridine (Pyridium) 200 mg nmmoytZnmyvt119OBIQLaidt times daily as needed for ryoa20NlyunxlxJanuary 03, 2025 12:00amUnknownAmoxicillin-Pot Clavulanate 875-125 mg grrvyhYtmmtg6ZQBPQZldep koijn948OdcbafmzJanuary 03, 2025 12:00amUnknown Immunizations Immunization Event Date Not Given Reason Dose Number [employer] Lot Number Reason(s) Given Vaccine Information Statement (VIS) Detail Administration Location Tetanus, Diphtheria, Pertussis (Tdap) November 262019 Procedures Procedure Date Performed Status Urine Culture November 22nd, 2025 active Relevant Diagnostic Tests and/or Laboratory Data Laboratory Results Test Collection Date/Time Result Date/Time Result Interpretation Reference Range Result Comment Performing Site POC SARS CoV-2 Antigen November 05, 2 025 11:48am November 05, 2024 12:11pm Negative Urine ColorNovember 2024 9:01amNovember 2024 9:26amyellowInfluenza Type A (Rapid)November 05, 2024 11:48amSeptember 2024 12:11pmNegative Urine AppearanceNovember 2024 9:01amNovember 2024 9:26amclear Influenza Type B (Rapid)November 05, 2024 11:48amSeptember 2024 12:11pm NegativeUrine Glucose (UA)January 03, 2025 9:01amNovember 2024 9:26am negUrine BilirubinNovember 2024 9:01amNovember 2024 9:26amnegUrine KetonesNovember 2024 9:01amNovember 2024 9:26amnegUrine Specific GravityNovember 2024 9:01amNovember 2024 9:26am1.005Urine Occult BloodNovember 2024 9:01amNovember 2024 9:26amtraceUrine pHNovember 2024 9:01amNovember 2024 9:26am6.0Urine ProteinNovember 2024 9:01amNovember 2024 9:26amnegUrine UrobilinogenNovember 2024 9:01am January 03, 2025 9:26am0.2Urine NitriteNovember 2024 9:01amNovember 2024 9:26amNegativeUrine Leukocyte EsteraseNovember 2024 9:01am January 03, 2025 9:26amneg Vital Signs Vital Reading Result Reference Range Collection Date/Time Height 64.25 [in_i] October 09, 2024 10:88zdDtxqew39.11 kgAugust 2024 10:27amBody Temperature 97.5 [degF]97.6-99.0August 2024 10:27amHeart Rate58 /qex73-561Pedxxf 2024 10:27amRespiratory rate16 /jzu71-97Qrgagt 28th, 2025 10:27amOxygen saturation by Pulse ubfgosrg21 %95-100August 2024 10:27amBP Xlsdfdbw103 mm[Hg]100-140August 2024 10:27amBP Boiwdbdjk72 mm[Hg]60-100August 2024 10:27amBMI (Body Mass Index)28.9 kg/m4Lcfgba 2024 10:27amBody Avxzlhcrllv02.2 [degF]97.6-99.0September 2024 11:57amHeart Rate65 /min 60-100ptember 2024 11:57amOxygen saturation by Pulse azxhkxhd22 %95-100 October 21, 2024 11:57amBP Clwpbbpc775 mm[Hg]100-140September 2024 11:57amBP Ivwuujkuf39 mm[Hg]60-100September 2024 11:66bgAgcncn75.25 [in_i] October 23, 2024 1:56bmLwazpx99.38 kgSeptember 2024 1:29pmBody Kuxlqoszbnf56.9 [degF]97.6-99.0Sept2024 1:29pmHeart Rate94 /min 60-100pt2024 1:29pmRespiratory rate18 /org69-72Iocefxmvu 11th, 2025 1:29pmOxygen saturation by Pulse inrnousi50 %95-100Sept2024 1:29pmBP Qbrzlhdh215 mm[Hg]100-140September 2024 1:29pmBP Nsdleamgw84 mm[Hg]60-100September 2024 1:29pmBMI (Body Mass Index)27.9 kg/k8Tecnkerbo2024 1:51lfYgmvux31.25 [in_i]November 05, 2024 11:20dhXtymcp07.99 kg November 05, 2024 11:36amBody Xnkhzwhofla04.4 [degF]97.6-99.0September 2024 11:36amHeart Rate64 /wgm85-230Pyvpbmthv 2024 11:36amRespiratory rate 16 /ala25-71Gddciskol 2024 11:36amOxygen saturation by Pulse mdfbcsyn81 % 95-100September 2024 11:36amBP Utxbjoeh346 mm[Hg]100-140September 2024 11:36amBP Cmvufifxk87 mm[Hg]60-100September 2024 11:36amBMI (Body Mass Index)27.8 kg/g7Rhuhijsof 2024 11:19piQqskih05.25 [in_i]November 20, 2024 8:04xtOfeeyf07.35 kgOctober 2024 8:04amBMI (Body Mass Index)28.3 kg/m2 November 20, 2024 8:77mgOftejt70.5 [in_i]November 20, 2024 8:63aoXkknkb53.35 kg November 20, 2024 8:20amHeart Rate73 /inh97-143WduiwksNovember 20, 2024 8:20am Respiratory rate18 /wrq91-03Tguozrr2024 8:20amBP Qmxuoucw751 mm[Hg]100-140 November 20, 2024 8:20amBP Dhpcqdfaf47 mm[Hg]60-100November 20, 2024 8:20amBMI (Body Mass Index)28.0 kg/m1Kfbaruz2024 8:98hnFksmvk37.5 [in_i]November 25, 2024 9:06bxKdqlrc88.40 kgOctober 2024 9:22amBody Ifomardisyd72.1 [degF]97.6-99.0Oct2024 9:22amHeart Rate71 /hiq11-970YevcxknNovember 25, 2024 9:22amRespiratory rate18 /dyu27-48Nekbqsq 2024 9:22amOxygen saturation by Pulse kxybxzfn22 %95-100October 2024 9:22amBP Jjlizmvu995 mm[Hg]100-140November 25, 2024 9:22amBP Ydbpdddlr63 mm[Hg]60-100October 2024 9:22amBMI (Body Mass Index)28.0 kg/y6Czewmbr 2024 9:91duPyffns37.25 [in_i]December 18, 2024 10:94chQgliyt26.92 kgNov2024 10:30amBMI (Body Mass Index)28.5 kg/a2Vkiucgci2024 10:60gcYsdegd30.5 [in_i]December 23, 2024 11:85gxGasdde72.80 kgNov2024 11:09amHeart Rate61 /min 60-100December 23, 2024 11:09amRespiratory rate16 /qah30-60CbwavbzbDecember 23, 2024 11:09amBP Ywtlrsbd326 mm[Hg]100-140December 23, 2024 11:09amBP Qpipdowxl41 mm[Hg]60-100November 2024 11:09amBMI (Body Mass Index)28.2 kg/f0Ymwgbskp 2024 11:12xwNwmpvm20 [in_i]January 03, 2025 9:83gvKbbcmj41.74 kg January 03, 2025 9:19amBody Ejlavxkstzd26.6 [degF]97.6-99.0Nov2024 9:19amHeart Rate70 /sdd29-113FznkzygrJanuary 03, 2025 9:19amRespiratory rate16 /shd75-08Czncbgpa 2024 9:19amOxygen saturation by Pulse tcdktuym47 %95-100 January 03, 2025 9:19amBP Pzuqchxb568 mm[Hg]100-140Nov2024 9:19am BP Kmbafxdxe72 mm[Hg]60-100November 2024 9:19amBMI (Body Mass Index)27.8 kg/d9Yqptkcrb2024 9:19am Advance Directives Advance Directive Response Recorded Date/ Time Advance Directives No October 12:17pm Insurance Providers Guarantor Yolanda Caruso Address [address] [facility] [id number] Info.Home Phone: Coverage Status Update:2024 Payer Group Member ID Coverage Type Subscriber Relationship to Subscriber Effective Date Expiration Date Medicaid Id: [id number] N Goodwin Id: [id number] [address] [place] [address] Home Phone: Email: [email or web address] Encounters Encounter Location(s) Arrival/Admit Date Discharge/Departure Date Discharge/Departure Disposition Provider(s) Departed Physician/ Provider Office Visit -[facility] October 09, 2024 11:21am October 09, 2024 12:01pm Discharged to home care or self care (routine discharge) Joo Hall DO Departed Physician/ Provider Office Visit [facility] October 21, 2024 12:47pm October 21, 2024 1:07pm Discharged to home care or self care (routine discharge) Edie Dolan APRN Departed Physician/ Provider Office Visit -[facility] October 23, 2024 2:13pm October 23, 2024 3:15pm Discharged to home care or self care (routine discharge) Joo Hall DO Departed Physician/ Provider Office Visit -[facility] November 05, 2024 12:31pm November 05, 2024 1:23pm Discharged to home care or self care (routine discharge) Joo Fish APRN Departed Physician/ Provider Office Visit [facility] November 20, 2024 8:12am November 20, 2024 11:59pm Discharged to home care or self care (routine discharge) Yoanna Whitehead RD Departed Physician/ Provider Office Visit -[facility] November 20, 2024 8:53am November 20, 2024 9:57am Discharged to home care or self care (routine discharge) Joo De Jesus DNP Departed Physician/ Provider Office Visit -[facility] November 25, 2024 10:09am November 25, 2024 10:44am Discharged to home care or self care (routine discharge) Joo Hall DO Departed Physician/ Provider Office Visit -[facility] December 18, 2024 8:18am December 18, 2024 9:40am Discharged to home care or self care (routine discharge) Yoanna Whitehead RD Departed Physician/ Provider Office Visit -[facility] December 23, 2024 10:38am December 23, 2024 11:45am Discharged to home care or self care (routine discharge) Joo De Jesus DNP Registered Recurring -Physical Therapy Karthik Melita white 2024 8:15am Joo Hall DODeparted Physician/Provider Office Visit-[facility] 2024 9:00amNovember 2024 9:46amDischarged to home care or self care (routine discharge)RANJITH Albrighteparted Referred- [facility] [address] [place] [address] 2024 9:05amNoveer 2024 9:06am Discharged to home care or self care (routine discharge)Prince Quiroz APRN Recent Diagnosis Onset Date Admit Date Anxiety Unknown October 09 11:21am POTS (postural orthostatic t achycardia syndrome) Unknown October 09, 2024 11:21am PTSD (post-traumatic stress disorder) Unknown October 09, 2024 11:21am COVID-19 long hauler Unknown September 11:21am Acute viral sinusitis Unknown October 21, 2024 12:47pm Generalized anxiety disorder Unknown Oct 2:13pm Post-nasal drip Unknown October 23, 2024 2:13pm Dizziness Unknown October 23, 2024 2:13pm Headache Unknown October 23, 2024 2:13pm Acute maxillary sinusitis, unspecified Unknown November 05, 2024 12:31pm Abnormal weight gain Unknown November 8:53am Anxiety Unknown November 20 8:53am BMI 28.0-28.9,adult Unknown November 20, 2024 8:53am Chronic fatigue syndrome Unknown November 20, 2024 8:53am Depression Unknown November 20 8:53am Dietary surveillance and counseling Unknown November 20, 2024 8:53am Exercise counseling Unknown November 20, 2024 8:53am OCD (obsessive compulsive disorder) Unknown November 20, 2024 8:53am Overweight (BMI 25.0-29.9) Unknown Octob er 2024 8:53am Post-COVID syndrome Unknown November 20, 2024 8:53am POTS (postural orthostatic t achycardia syndrome) Unknown November 20, 2024 8:53am PTSD (post-traumatic stress disorder) Unknown November 20, 2024 8:53am POTS (postural orthostatic t achycardia syndrome) Unknown November 25, 2024 10:09am COVID-19 sandhya hauler Unknown November 10:09am Generalized weakness Unknown November 10:09am Abnormal weight gain Unknown December 232024 10:38am Anxiety Unknown December 23, 025 10:38am BMI 28.0-28.9,adult Unknown December 10:38am Chronic fatigue syndrome Unknown Novembe r 2024 10:38am Depression Unknown December 23, 025 10:38am Dietary surveillance and counseling Unknown December 23, 2024 10:38am Exercise counseling Unknown December 10:38am OCD (obsessive compulsive disorder) Unknown December 23, 2024 10:38am Overweight (BMI 25.0-29.9) Unknown Novem cooper 2024 10:38am Post-COVID syndrome Unknown December 10:38am POTS (postural orthostatic t achycardia syndrome) Unknown December 23, 2024 10:38am PTSD (post-traumatic stress disorder) Unknown December 23, 2024 10:38am Acute bacterial sinusitis Unknown Novem er 2024 9:00am Dysuria Unknown January 03, 2 025 9:00am Assessments Diagnosis Onset Date Resolution Status Admit Date Anxiety acuteAugust 2024 11:21amPOTS (postural orthostatic tachycardia syndrome) acuteAugust 2024 11:21amPTSD (post-traumatic stress disorder)acuteAugust 2024 11:21amCOVID-19 sandhya haulerchronicAugust 2024 11:21amAcute viral sinusitisnoneactiveSeptember 2024 12:47pmGeneralized anxiety disorder acuteSeptember 2024 2:13pmPost-nasal dripacuteSeptember 2024 2:13pm DizzinessnoneactiveSeptember 2024 2:13pmHeadachenoneactiveSeptember 2024 2:13pmAcute maxillary sinusitis, unspecifiedacuteSeptember 2024 12:31pmAbnormal weight gainacuteOctober 2024 8:53amAnxietyacuteOctober 2024 8:53amBMI 28.0-28.9,adultacuteOctober 2024 8:53amChronic fatigue syndromeacuteOctober 2024 8:53amDepressionacuteOctober 2024 8:53am Dietary surveillance and counselingacuteOctober 2024 8:53amExercise counselingacuteOctober 2024 8:53amOCD (obsessive compulsive disorder)acute November 20, 2024 8:53amOverweight (BMI 25.0-29.9)acuteOctober 2024 8:53am Post-COVID syndromeacuteOctober 2024 8:53amPOTS (postural orthostatic tachycardia syndrome)acuteOctober 2024 8:53amPTSD (post-traumatic stress disorder)acuteOctober 2024 8:53amPOTS (postural orthostatic tachycardia syndrome)acuteOctcar[facility] 2024 10:09amCOVID-19 long haulerchronicOctober 2024 10:09amGeneralized weaknessnoneactiveOctcarroll county memorial hospital 2024 10:09amAbnormal weight gainacuteNovcopper springs hospital 2024 10:38amAnxietyacute[facility] 20[facility] 10:38amBMI 28.0-28.9,adultacuteNovember 2024 10:38amChronic fatigue syndromeacuteNovcopper springs hospital 2024 10:38amDepressionacuteNovco[facility] springs hospital 2024 10:38amDietary surveillance and counselingacute[facility] 2024 10:38am Exercise counselingacuteNovember 2024 10:38amOCD (obsessive compulsive disorder)acuteNovcopper springs hospital 2024 10:38amOverweight (BMI 25.0-29.9)acuteNovcopper springs hospital 2024 10:38amPost-COVID syndromeacuteNovcopper springs hospital 2024 10:38amPOTS (postural orthostatic tachycardia syndrome)acuteNovcopper springs hospital 2024 10:38amPTSD (post-traumatic stress disorder)[facility]Kn[facility] 2024 10:38amAcute bacterial sinusitisnoneactiveNovcopper springs hospital 2024 9:00amDysurianoneactiveNovcopper springs hospital 2024 9:00am Plan of Treatment Author [facility] 2024 3:45pmQuite lengthy discussion with patient today regarding all of her concerns, but also when filling out the paperwork at her request. We worked through this paperwork together and faxed at her request. Scanned to chart as well. Continue to work with specialist. Continue to work with psychiatry. Continue with psychiatry. Continue with specialist for this concern. Author Edie Dolan [facility] 2024 12:07pmPatient declines testing today in office. Discussed diagnosis with patient today. Will treat as viral at this time based on physical exam and duration of symptoms. Advised patient viral syndromes last 7-10 days. Advised patient to take steroid as prescribed, finish entire course, take with food and plenty of water, reviewed side effects of medication. Use Mucinex and Flonase OTC as directed.??Encouraged supportive care. Push fluids/rest, nasal saline irrigation and spray as directed, may use Tylenol as needed for discomfort. Patient to follow up with PCP or UC for any new or worsening symptoms. ER for signs/symptoms as discussed.??Patient verbalizes understanding and is agreeable to treatment plan.?? [facility] 20[facility] 9:14ameRX sent. Lengthy discussion with patient today that I really think she would benefit from the nasal steroid spray again. We are getting into allergy season again, and I feel this is the causation behind her symptoms. Continue with current medication. We spent a lengthy amount of time composing and printing out letter for patient for some further accommodations for schooling. Lengthy discussion with patient today that between her chronic headaches and dizziness, I feel advanced imaging is warranted. I did warn patient that this is something that we will need to go through insurance, and may be denied. I also feel that patient may want to return to neurology for Botox injections as these were helpful some years ago. Again, I think with patient's ongoing symptoms, advanced imaging is warranted at this time. Author Jeannine Allen [facility] 12:37pmRapid COVID-negative. Symptoms ongoing for 2-1/2 weeks. Was treated with Augmentin 1 week ago. Discussed possibility of starting antibiotic too soon with viral illness. Discussed option of changing antibiotics although patient does have many antibiotic allergies. Discussed option of doxycycline or cefdinir. Reaction to cephalosporins in the past with GI issues. Patient would like to try cefdinir. Discontinue Augmentin. Finish entire course. Continue Flonase,, Mucinex cjsz-gvr-ntrpwvr. Reassured lungs remain clear at this time. Patient does have some generalized symptoms including fatigue and malaise. Discussed would recommend follow-up appointment with PCP in the next 7 to 10 days for recheck, if continuing symptoms may need to have some lab work completed. Patient verbalized understanding of treatment plan. Author Celeste Saenz [facility] 2024 9:18amSee above treatment plan. Appointment with registered dietitian made at checkout today. Recommended at least 30 minutes of moderate physical activity most days of the week or 150 minutes weekly in addition to at least 2 days of strength training exercise. She will continue to follow with her PCP for this. No suicidal or homicidal ideations. She will continue to follow with her psychologist and PCP for this. No suicidal or homicidal ideations. She will continue to follow with her psychologist and PCP for this. No suicidal or homicidal ideations. She will continue to follow with her psychologist and PCP for this. No suicidal or homicidal ideations. She will continue to follow with her psychologist and PCP for this. She does suffer from long COVID syndrome and chronic fatigue syndrome. She will continue to follow with her PCP for this. She does suffer from long COVID syndrome and chronic fatigue syndrome. She will continue to follow with her PCP for this. Wt. Hx: Start: 06/12/24, 181.6 pounds Follow up: 07/28/24, 184.7 pounds Follow up: 11/20/24, 166.1 pounds (down 18.6 pounds since last OV on 07/28/24 and down 15.5 pounds since starting OV on 06/12/24) AOM: none Labs: 05/2024; 09/2024 Exercise counseling- Reinforced as a primary intervention to promote lean tissue mass/muscle preservation. Dietary surveillance and counseling: [Social Media Project Manager] Lead with lean protein sources and attempt 2-3 sections of plate method with each meal and snack. Continue to work on small sustainable changes to promote overall health F/u: [4 weeks] Medication considerations: none; I have recommended that she NOT take compounded Tirzepatide from online pharmacy due to decrease muscle mass on her SECA scan Treatment plan/changes: Yolanda is a 29 year old female who presents today for a weight management follow up. Since last visit patient is doing poor with lifestyle changes. Down 18.6 pounds since last OV on 07/28/24 and down 15.5 pounds since starting OV on 06/12/24. She has met her 8% body weight loss goal. Initial goals: 5% (172), 10% (163). Failed on Metformin due to not wanting to eat on this medication. She has not been seen since 07/28/24. Reports positive effect of weight loss. Struggles with tiredness. No exercise. Was previously taking Tirzepatide 18 mg once weekly from an online pharmacy; however, has not taken this in 3-4 weeks. Was taking this from [place]. She states that she started on this in July 2024. She states that she may restart this medication with this company. I have recommended that she stop this medication due to the deconditioning on her SECA scan. Saw our RD today and did get her SECA scan done. Body composition analysis per SECA scan completed today at patient visit. Results reviewed with patient. Detailed report found located in patient chart. She has lost muscle mass since her first SECA scan. Patient presents today after a long hiatus. She was up until about 1 month ago taking tirzepatide from an online pharmacy. Her body composition scan was completed today and I did discuss with her that she is losing too much muscle mass. She is very fatigued from this as well. I discussed the importance of eating regularly, protein with each meal, whole foods, moving and exercising daily. She is following with the registered dietitians routinely and I recommended that she continue doing so. Recommended at least 30 minutes of moderate physical activity most days of the week or 150 minutes weekly in addition to at least 2 days of strength training exercise. Due to her significant decrease in muscle mass, I recommended that she stay off of any GLP-1 medication and weight loss medication while she builds her muscle mass back up. She is agreeable to this for the time being. She will follow-up in 4 weeks for repeat body composition scan to see how her muscle mass is improving. It was discussed with patient that our role is to help them to understand the underlying complex biology of obesity as a disease and offer tools and support for overall health goals and set realistic expectations for weight loss. Understands that the treatment plan is personalized to the best of knowledge and ability with priority to decreasing wt related comorbidities as well as increasing functional capacity and quality of life. Will work with pt to help overcome barriers with the understanding that treatment plan may policy change clerks supervisor time and tools, such as medications, do have limitations. Medications, as applicable, were discussed including up-to-date studies and effectiveness, risks and benefits, common side effects, MOA, etc. Regardless of medications, lifestyle change takes precedence. I highly recommended decreasing or eliminating caloric beverages especially sweetened beverages and alcohol. Pt should prioritize preplanning, shopping at the edge of the store, decreasing unhealthy food cues. I recommended packing snacks and meals when out of the home. No macronutrient is completely restricted. We discussed the addictive nature and unhealthy biological changes that occur with ultra processed food and how it may influence chronic disease. I highly recommended preference for whole foods/real foods and decrease added sugar, refined starches, and added fats. Lean unprocessed protein with each meal and each snack to help control appetite, decrease cravings and lessen muscle loss with weight loss advised. The patient will ideally try to get at least 5 or more servings of low carbohydrate veggies daily. Benefits of regular exercise including cardio and resistance training discussed and recommended, slowly increasing activity, as appropriate for the patient. Consider our shoe repairman for guidance. We offer individual and group visits from several different practitioners which was also recommended to help with long-term behavioral change and support. Recommend good sleep hygiene and the importance of adequate sleep. Circadian rhythm and the importance of mealtime. Stress reduction and controlling factors within reasonable control. The majority of today's visit was spent re-evaluating patient, counseling/educating patient on the options for the continual treatment of obesity and weight related health issues. See above treatment plan. Author Celeste Saenz [facility] HospitalAuthoredNovember 2024 1:16pmWt. Hx: Start: 06/12/24, 181.6 pounds Follow up: 07/28/24, 184.7 pounds Follow up: 11/20/24, 166.1 pounds Follow up: 12/23/24, 167.1 pounds (up 1 pound since last OV on 11/20/24 and down 14.5 pounds since starting OV on 06/12/24) AOM: none Labs: 05/2024; 09/2024 Exercise counseling- Reinforced as a primary intervention to promote lean tissue mass/muscle preservation. Dietary surveillance and counseling: [Social Media Project Manager] Lead with lean protein sources and attempt 2-3 sections of plate method with each meal and snack. Continue to work on small sustainable changes to promote overall health F/u: [6 weeks] Medication considerations: none Treatment plan/changes: Yolanda is a 29 year old female who presents today for a weight management follow up. Since last visit patient is doing poor to fair with lifestyle changes. Up 1 pound since last OV on 11/20/24 and down 14.5 pounds since starting OV on 06/12/24. Has lost 8% body weight loss. Initial goals: 5% (172), 10% (163). She was recommended to stop the Tirzepatide from [facility] due to her body composition scan moving to far towards very low muscle mass and her complaints of weakness. Failed on Metformin due to not wanting to eat on this medication. Reports positive effect of starting resistance band training with PT. Struggles with meal planning and knowing best ingredients. Exercise consists of PT 2 times per week with resistance bands. Was previously taking Tirzepatide 18 mg once weekly from an [facility] online pharmacy, she was instructed to stop this at her last OV on 11/20/24 due to significant muscle mass loss on her SECA scan. Started PT with [facility] in [place] for generalized weakness. Is doing resistant bands with PT. Did see our RD last week and a new SECA body composition scan was done. Started taking a MVI, increased water intake, stopped the Tirzepatide, does have some mild increased energy since making these changes. Trying to get her protein into her diet, working at this slowly with RD. overall, patient is starting to get some of her energy back since stopping tours appetite. She is working with the physical therapist on increasing muscle mass and is doing band exercises to increase muscle mass. She is focusing on getting protein with each meal. She is working with our registered dietitians very closely. It is her primary goal right now to increase muscle mass as she had very low muscle mass on the body composition scan that was done previously. She will continue to follow with the registered dietitians on a very routine basis. We will keep her off of all weight loss medications at this time. Recommended at least 30 minutes of moderate physical activity most days of the week or 150 minutes weekly in addition to at least 2 days of strength training exercise. She will follow-up in the office with me in 6 weeks or sooner if needed. It was discussed with patient that our role is to help them to understand the underlying complex biology of obesity as a disease and offer tools and support for overall health goals and set realistic expectations for weight loss. Understands that the treatment plan is personalized to the best of knowledge and ability with priority to decreasing wt related comorbidities as well as increasing functional capacity and quality of life. Will work with pt to help overcome barriers with the understanding that treatment plan may policy change clerks supervisor time and tools, such as medications, do have limitations. Medications, as applicable, were discussed including up-to-date studies and effectiveness, risks and benefits, common side effects, MOA, etc. Regardless of medications, lifestyle change takes precedence. I highly recommended decreasing or eliminating caloric beverages especially sweetened beverages and alcohol. Pt should prioritize preplanning, shopping at the edge of the store, decreasing unhealthy food cues. I recommended packing snacks and meals when out of the home. No macronutrient is completely restricted. We discussed the addictive nature and unhealthy biological changes that occur with ultra processed food and how it may influence chronic disease. I highly recommended preference for whole foods/real foods and decrease added sugar, refined starches, and added fats. Lean unprocessed protein with each meal and each snack to help control appetite, decrease cravings and lessen muscle loss with weight loss advised. The patient will ideally try to get at least 5 or more servings of low carbohydrate veggies daily. Benefits of regular exercise including cardio and resistance training discussed and recommended, slowly increasing activity, as appropriate for the patient. Consider our shoe repairman for guidance. We offer individual and group visits from several different practitioners which was also recommended to help with long-term behavioral change and support. Recommend good sleep hygiene and the importance of adequate sleep. Circadian rhythm and the importance of mealtime. Stress reduction and controlling factors within reasonable control. The majority of today's visit was spent re-evaluating patient, counseling/educating patient on the options for the continual treatment of obesity and weight related health issues. See above treatment plan. See above treatment plan. Appointment with registered dietitian made at checkout today. Recommended at least 30 minutes of moderate physical activity most days of the week or 150 minutes weekly in addition to at least 2 days of strength training exercise. She will continue to follow with her PCP for this. No suicidal or homicidal ideations. She will continue to follow with her psychologist and PCP for this. No suicidal or homicidal ideations. She will continue to follow with her psychologist and PCP for this. No suicidal or homicidal ideations. She will continue to follow with her psychologist and PCP for this. No suicidal or homicidal ideations. She will continue to follow with her psychologist and PCP for this. She does suffer from long COVID syndrome and chronic fatigue syndrome. She will continue to follow with her PCP for this. She does suffer from long COVID syndrome and chronic fatigue syndrome. She will continue to follow with her PCP for this. Author Wang Sy [facility] HospitalAuthoredOctober 2024 9:52amLengthy discussion with patient today regarding all of her concerns. In particular I think she may benefit from seeing local physical therapy, just from weakness standpoint. My hope is that therapy can offer her some home exercises and options to get her strength/muscle mass up again. I agree that she is seemingly rather deconditioned. Obviously continue to follow-up with all of her specialists for this concern. Continue to follow-up with POTS specialist through [facility]. I did compose a letter today, stating that she is not able to work secondary to her COVID/POTS. Author Prince Quiroz [facility] HospitalAuthoredNovember 2024 9:33amUrinalysis + blood. Pt with increased urinary freq over one day. No flank pain, nausea, fever. C/O frontal and maxillary sinus congestion and pain, dizziness and headache. Sinusitus sx for over two weeks without relief. Rx Augmentin and pyridium. We will wait on urine culture results. Future Tests Future scheduled test information is unavailable Pending Tests Test Name Ordered Date Scheduled Date Urine Culture January 03, 2025 9:05am Future Visits Future appointment information is unavailable Future Procedures Procedure Name Ordered Date Scheduled Date Urine Culture January 03, 2025 9:01am Novem cooper 2024 3:25pm AMB POC COVID/Flu A/B Ag January 03, 2025 9:2 4am Future Medications Future medication information is unavailable Patient Instructions Patient instructions are unavailable
[2025-01-10 07:22] VITALS: BP 119/65; PULSE 62; TEMP 36.7; O2SAT 100; BMI 61.3
--- NOTE | 2025-01-10 07:44 | CT_ITS ---
The [address] [address] Patient Name: CAMMIE APARICIO MRN: [id number] date: 1995 Sex: F Assigned Patient Location: ER Current Patient Location: [facility] Accession/Order Number: [id number] Exam Date: 01/10/2025 08:00 Report Date: 01/10/2025 08:35 At the request of: STU CARDONA Procedure: CT head/brain wo con CT head/brain wo con 01/10/2025 8:06 AM SIGNS AND SYMPTOMS: ^headache TECHNIQUE:Multi-detector CT axial slices of the brain were obtained without IV contrast. CT was performed with one or more of the following dose reduction techniques: Automated exposure control, adjustment of the mA and/or kV according to patient size, or use of iterative reconstruction technique. COMPARISON: None. FINDINGS: There is no shift of the midline structures, acute intracranial bleeding, mass effects, or evidence of acute ischemia. The ventricular system is normal in size. The brainstem and the cerebellum are unremarkable. The visualized intraorbital contents, the visualized paranasal sinuses, and the infratemporal soft tissues show no acute abnormality. The osseous structures in the skull base and the calvarium show no abnormality. CT/CT head/brain wo con IMPRESSION: Normal noncontrasted CT brain. Impression dictated by: Anthony Royal M.D. 01/10/2025 8:35 AM Dictation Location: [place] [address] Electronically authenticated by: [id number] Y Date: 01/10/2025 08:35
--- OUTSIDE RECORDS SUMMARY | 2025-01-10 08:07 | XMS_ITS | Encounter Summary ---
Demographics Address [address] [place] [address] Home Phone Mobile Phone Email Address Preferred Language ENG Marital Status Single Druze Affiliation Unknown Race White Ethnic Group Not or Lati no Author Organization [facility] Address [address] [place] [address] Care Team Providers Care Cable Splicer Assistant Name Role Phone Wang Sy DO Unavailable [phone] KerrieWang mora DO Primary Care Provider [phone] Hyun Leiva Unavailable Source Comments In the event this information is protected by the Federal Confidentiality of Alcohol and Drug AbusePatient Records regulations: The Federal rules restrict any use of the information to criminally investigate or prosecute any alcohol or drug abuse patient.[facility] Reason for Visit * ReasonCommentsAppointment Encounter Details DateTypeDepartmentCare Team (Latest Contact Info)Prgeythawys37/14/2025Telephone NEUROLOGY [address] [place] [phone] Judy Gamez PSYD [address] [place] [address] Appointment Social History Tobacco UseTypesPacks/DayYears UsedDateSmoking Tobacco: FormerCigarettes0.35 02/12/2011 - 02/13/2016Smokeless Tobacco: NeverAlcohol UseStandard Drinks/Week CommentsNo0 (1 standard drink = 0.6 oz pure alcohol)PHQ-2AnswerDate RecordedPHQ- 2 /14/2025Area Deprivation IndexAnswerDate RecordedNational Score (1- 100), lower number is lower [id number] Score (1-10), lower number is lower [id number] from: https://www.neighborhoodatlas.[facility]/. Last address used for bmwrsrsjykp[address]CommentsNoSex and Gender InformationValueDate RecordedSex Assigned at SvoojBpxoze74/16/2022 8:31 PM EDT Legal IitPbtxio63/05/2018 11:55 AM EDTGender IdentityNot on fileSexual OrientationNot on filedocumented as of this encounter Miscellaneous Notes * Telephone Encounter - Judy Gamez PSYD - 12/26/2024 10:31 AM EST Can patient please be added to my calendar 05/15 at 9:30am? documented in this encounter Plan of Treatment DateTypeDepartmentCare Team (Latest Contact Info)Jwdnfzyhzbb03/05/2025 9:30 AM ESTDistance Health NEUROLOGY [address] [place] [phone] Judy Gamez PSYD [address] [place] [address] Follow Up01/29/2025 9:00 AM ESTDistance Health NEUROLOGY [address] [place] [phone] Judy Gamez PSYD [address] [place] [address] Follow Up02/18/2025 7:00 AM ESTDistance [facility] NEUROLOGY [address] [place] [phone] Judy Gamez PSYD [address] [place] [address] follow-up03/03/2025 9:30 AM ESTDistance Health NEUROLOGY [address] [place] [address], [place] [address] Judy Gamez PSYD [address] [place] [address] Follow Up03/06/2025 9:00 AM ESTOffice Visit Gastroenterology [address] [place] [address] Jake Kevin Jr., DO [address] [facility] [address] [phone] Return in about 6 kujkxy2603/19/2025 9:00 AM ESTDistance [facility] NEUROLOGY [address] [place] [address], [place] [address] Judy Gamez PSYD [address] [place] [address] Follow Up04/07/2025 9:30 AM ESTDistance [facility] NEUROLOGY [address] [place] [phone] Judy Gamez PSYD [address] [place] [address] Follow Up04/21/2025 9:30 AM EDTDistance Health NEUROLOGY [address] [place] [address], [place] [address] Judy Gamez PSYD [address] [place] [address] Follow Up05/15/2025 9:30 AM EDTDistance Health NEUROLOGY [address] [place] [phone] Judy Gamez, PSYD [address] [place] [address] Follow Up06/03/2025 8:[facility] [address] [place] [address] Judy Gamez PSCARLY [address] [place] [address] documented as of this encounter Goals GoalPatient Goal TypeAssociated ProblemsRecent ProgressPatient-Stated?Author Blood Pressure < 130/80 Blood Dkjtkiji45/63(08/08/2024 9:14 AM EDT)Shawn Beckford, MDdocumented as of this encounter Visit Diagnoses Not on filedocumented in this encounter Care Teams Team MemberRelationshipSpecialtyStart DateEnd Date Wang Sy DO [address] [address] PCP - GeneralFamily Medicine05/12/20 Wang Sy DO [address] [address] ReferringFamily Medicine08/24/17 Hyun Leiva [address] [place] [address] ReferringFamily Medicine05/12/20documented as of this encounter
[2025-01-10] MEDS: 0.9 % SODIUM CHLORIDE 1,000 ML 1000 ML IV (08:08)
--- OUTSIDE RECORDS SUMMARY | 2025-01-10 08:08 | XMS_ITS | Encounter Summary ---
Demographics Address [address] [place] [address] Home Phone Mobile Phone Email Address Preferred Language ENG Marital Status Single Druze Affiliation Unknown Race White Ethnic Group Not or Lati no Author Organization [facility] Address [address] [place] [address] Care Team Providers Care Vegetable Farming Supervisor Name Role Phone Wang Sy DO Unavailable [phone] KerrieWang mora DO Primary Care Provider [phone] Hyun Leiva Unavailable Source Comments In the event this information is protected by the Federal Confidentiality of Alcohol and Drug AbusePatient Records regulations: The Federal rules restrict any use of the information to criminally investigate or prosecute any alcohol or drug abuse patient.[facility] Encounter Details DateTypeDepartmentCare Team (Latest Contact Info)Rctledsqqix52/21/2025Telephone NEUROLOGY [address] [place] [phone] Judy Gamez PSYD [address] [place], [place] [id number] Social History Tobacco UseTypesPacks/DayYears UsedDateSmoking Tobacco: FormerCigarettes0.35 02/12/2011 - 02/13/2016Smokeless Tobacco: NeverAlcohol UseStandard Drinks/Week CommentsNo0 (1 standard drink = 0.6 oz pure alcohol)PHQ-2AnswerDate RecordedPHQ- 2 /14/2025Area Deprivation IndexAnswerDate RecordedNational Score (1- 100), lower number is lower [id number] Score (1-10), lower number is lower [id number] from: https://www.neighborhoodatlas.medicine.[facility].edu/. Last address used for uhrdipnquoc[address]/15/2022CommentsNoSex and Gender InformationValueDate RecordedSex Assigned at SfeasAirnbo88/16/2022 8:31 PM EDT Legal OabVolbfm19/05/2018 11:55 AM EDTGender IdentityNot on fileSexual OrientationNot on filedocumented as of this encounter Miscellaneous Notes * Telephone Encounter - Judy Gamez PSYD - 01/02/2025 1:49 PM EST Spoke with patient by phone regarding her request for a letter documenting that she was not violentand not at risk of harm to others. Explained my role providing psychotherapy and that I cannot provide a forensic evaluation due to my role. Agreed to write letter documenting my recent clinical assessments of her during the context of the therapy visits and our phone call today. Judy Gamez PsyD Psychologist Department of Psychiatry and Psychology [facility] [phone] 01/02/2025 documented in this encounter Plan of Treatment DateTypeDepartmentCare Team (Latest Contact Info)Zaqxwzrdywy38/05/2025 9:30 AM ESTDistance Health NEUROLOGY [address] [place] [phone] Judy Gamez PSYD [address] [place] [address] Follow Up01/29/2025 9:00 AM EST[facility] NEUROLOGY [address] [place] [address], [place] [address] Judy Gamez PSYD [address] [place] [address] Follow Up02/18/2025 7:00 AM EST[facility] NEUROLOGY [address] [place] [address], [place] [address] Judy Gamez PSYD [address] [place] [address] follow-up03/03/2025 9:30 AM ESTDistance [facility] NEUROLOGY [address] [place] [address], [place] [address] Judy Gamez PSYD [address] [place] [address] Follow Up03/06/2025 9:00 AM ESTOffice Visit Gastroenterology [address] [place] [address] Jake Kevin Jr., [address] [facility] [address] [phone] Return in about 6 dyhjac5103/19/2025 9:00 AM ESTDistance [facility] NEUROLOGY [address] [place] [address], [place] [address] Judy Gamez PSYD [address] [place] [address] Follow Up04/07/2025 9:30 AM EST[facility] NEUROLOGY [address] [place] [address], [place] [address] Judy Gamez PSYD [address] [place] [address] Follow Up04/21/2025 9:30 AM EDTDistance Health NEUROLOGY [address] [place] [address], [place] [address] Judy Gamez, PSYD [address] [place] [address] Follow Up05/15/2025 9:30 AM EDTDistance Health NEUROLOGY [address] [place] [address], [place] [address] Judy Gamez PSYD [address] [place] [address] Follow Up06/03/2025 8:00 AM EDTDistance Health NEUROLOGY [address] [place] [address], [place] [address] Judy Gamez PSYD [address] [place] [address] documented as of this encounter Goals GoalPatient Goal TypeAssociated ProblemsRecent ProgressPatient-Stated?Author Blood Pressure < 130/80 Blood Rtsdhrgt06/63(08/08/2024 9:14 AM EDT)Shawn Beckford, MDdocumented as of this encounter Visit Diagnoses Not on filedocumented in this encounter Care Teams Team MemberRelationshipSpecialtyStart DateEnd Date Wang Sy DO [address] [address] PCP - GeneralFamily Medicine05/12/20 Wang Sy DO [address] [address] ReferringFamily Medicine08/24/17 Hyun Leiva [address] [place] [address] ReferringFamily Medicine05/12/20documented as of this encounter
--- OUTSIDE RECORDS SUMMARY | 2025-01-10 08:08 | XMS_ITS | Clinical Summary ---
Demographics Address [address] [facility] [[email or web address]] [place] [address] Home Phone Mobile Phone Email Address Preferred Language en Marital Status Single Samaritan Affiliation Unknown Race White Ethnic Group Not or Lati no Author Organization [facility] Address [address] 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 Name Role Phone Generic Provider, No Assigned Pcp MD Primary Car e Provider Unavailable Allergies Active AllergyReactionsCriticalityNoted DateCommentsDoxycyclineHeadache 09/13/2022ModafinilHallucinations,FngnsGlzp87/12/2023Nitrofurantoin Monohyd/M-MrfpeCyxikgbpp20/22/1702HrhybrlytgAatvc13/30/2021 Sulfamethoxazole-TrimethoprimDiarrhea,Nausea/vomiting,GI Upset06/07/2017 Medications MedicationSigDispense QuantityRefillsLast FilledStart DateEnd DateStatus metoprolol tartrate (Lopressor) 25 mg tablet TAKE 1/2 TABLET IN THE MORNING AND 1 AT BEDTIMEActive sodium chloride 1,000 mg tablet Take 1 tablet (1 g) by mouth 2 times a day.09/13/2022ctive meclizine (Antivert) 25 mg tablet Take 1 tablet (25 mg) by mouth once daily.Active gabapentin (Neurontin) 300 mg capsule 1 capsule (300 mg) once daily at bedtime.Active gabapentin (Neurontin) 100 mg capsule 2 capsules (200 mg) once daily at bedtime.Active tiZANidine (Zanaflex) 4 mg tablet Take 1 tablet (4 mg) by mouth once daily at bedtime.Active ondansetron ODT (Zofran-ODT) 4 mg disintegrating tablet Dissolve 1 tablet (4 mg) in the mouth every 8 hours if needed.Active hydrOXYzine HCL (Atarax) 25 mg tablet Take 1 tablet (25 mg) by mouth every 8 hours if needed.04/03/2023ctive cyanocobalamin (Vitamin B-12) 1,000 mcg/mL injection Indications:Vitamin B12 deficiencyINJECT 1ML INTRAMUSCULARLY ONCE EVERYDAY FOR 7 DAYS, THEN 1ML ONCE A WEEK FOR 90 DAYS THEN 1ML ONCEEVERY 30 DAYS 30 mL ctive ibuprofen 800 mg tablet Take 1 tablet (800 mg) by mouth every 8 hours if needed for mild pain (1 - 3). Active acetaminophen (Tylenol) 500 mg tablet Take 2 tablets (1,000 mg) by mouth every 6 hours if needed for mild pain (1 - 3).Active ALPRAZolam (Xanax) 0.5 mg tablet Take 1 tablet (0.5 mg) by mouth if needed for anxiety.Active naltrexone HCl (NALTREXONE ORAL) Take 1 tablet by mouth once daily at bedtime. 1 MGActive midodrine (Proamatine) 5 mg tablet Indications:POTS (postural orthostatic tachycardia syndrome)Take 1 tablet (5 mg) by mouth 2 times a day. 180 tablet /ctive Active Problems ProblemNoted DateDiagnosed DateOrthostatic linfvzpjjxklypi50/13/2025ognitive communication whrenhl0807/24/2024Mixed obsessional thoughts and acts07/24/2024PTSD (post-traumatic stress disorder)07/24/2024Obesity, Class I, BMI 30-34.9 07/24/2024hronic fatigue bttahssq12/12/2025tivity sqpxeqiahtw84/12/2025 Impaired functional mobility, balance, and tzmmupmvs50/12/2025Headache, unspecified headache type07/24/2024Difficulty qyopyxlc49/12/2025djustment disorder with depressed mood07/24/2024Personal history of COVID-19007/24/2024 Chronic tension-type headache, mdqytuhvbov74/12/2025Facial szyiafcvnni55/12/2025 Long COVID07/24/2024Generalized anxiety uzbrafiz62/12/2025nxiety and depression 07/24/2024POTS (postural orthostatic tachycardia syndrome)05/16/2024 Encounters DateTypeDepartmentCare SoukAwmlvtuipfk70/24/2025Refill [facility] [address] [facility] 5th [place] [phone] Sariah Palacio MD Vitamin B12 wbzshfuqle98/22/2025Refill [facility] [address] [facility] [address] [place] [address] Sariah Palacio MD Vitamin B12 qcoargeeii72/02/2025Documentation [facility] Serviceful [facility] [address] [address] Shari, Mauro A, DIRECTOR ON AIR cancelfrom Last 3 Months Social History Tobacco UseTypesPacks/DayYears UsedDateSmoking Tobacco: FormerCigarettes Smokeless Tobacco: Never Tobacco Cessation:Counseling Given: Not Answered CommentsUnknownSex and Gender InformationValueDate RecordedSex Assigned at BirthNot on fileLegal KtiEvajgo63/26/2022 5:40 AM ESTGender IdentityNot on fileSexual OrientationNot on file Last Filed Vital Signs Vital SignReadingTime TakenCommentsBlood Wnacoepv124/6908 2:03 PM EDT Kskzx536309/24/2024 2:03 PM AVTEpaczigiydf70.3 ??C (97.3 ??F)10/04/2023 2:40 PM EDTRespiratory Ruej590710/04/2023 2:40 PM EDTOxygen Wllyzithwc21%09/24/2024 2:03 PM EDTInhaled Oxygen Concentration--Mmsytf90.9 kg (185 lb)10/04/2023 2:40 PM EDT Pgsylb703.1 cm (5' 5 )10/04/2023 2:40 PM EDTBody Mass Index30.7910/04/2023 2:40 PM EDT Plan of Treatment DateTypeDepartmentCare Team (Latest Contact Info)Miblopguzen37/22/2026 4:30 PM ESTOffice Visit [facility] [address] [facility] [address] [place] [phone] [place] [address] Department [place] [address] Health MaintenanceDue DateLast DoneCommentsHIV Wovmpscts31/14/1994Lipid Panel 1993Yearly Adult Ignhaiuq24/14/1994MMR Vaccines (1 of 1 - Standard series) 1994Hepatitis C Agxhvnbny10/14/2012Hepatitis B Vaccines (1 of 3 - 19+ 3- dose series)2012Cervical Cancer Zxmkdencl86/14/2015HPV/Zscrue9407/26/2014Pap Smear2014HPV Vaccines (1 - 3-dose standard series)2020Influenza Vaccine (#1)503/03/2019, 03/04/2018, 02/21/2018, Additional history existsCOVID-19 Vaccine ( - 2024- season)2024Diabetes Screening 5011/08/2023, 11/08/2023, 11/08/2023, Additional history exists DTaP/Tdap/Td Vaccines (2 - Td or Tdap)Zoster Vaccines (1 of 2)07/27/2043HIB VaccinesAged OutNo longer eligible based on patient's age to complete this topicHepatitis A VaccinesAged OutNo longer eligible based on patient's age to complete this topicIPV VaccinesAged OutNo longer eligible based on patient's age to complete this topicMeningococcal VaccineAged OutNo longer eligible based on patient's age to complete this topicPneumococcal Vaccine: Pediatrics and At-Risk Adult PatientsAged OutNo longer eligible based on patient's age to complete this topicRotavirus VaccinesAged OutNo longer eligible based on patient's age to complete this topic Procedures Procedure NamePriorityDate/TimeAssociated DiagnosisCommentsGGT 3HR NON-,TNATHDKMgcersn66/26/2024 8:40 AM EDT POTS (postural orthostatic tachycardia syndrome) from Last 3 Months or Most Recently Relevant to Health Maintenance Results * Glucose, Fasting (11/08/2023 8:40 AM EDT)ComponentValueRef RangeTest Method Analysis TimePerformed AtPathologist SignatureGlucose, Vxdlpbl74ap/dL LAB CHEMISTRY METHOD 11/08/2023 9:27 AM EDTST [facility] LABSpecimen (Source)Anatomical Location / LateralityCollection Method / VolumeCollection TimeReceived TimeBlood Venous blood specimen / UnknownVenipuncture / Kpxlkro9211/08/2023 8:40 AM EDT 11/08/2023 8:40 AM EDT Narrative [facility] - 11/08/2023 9:27 AM EDT The [place] Diabetes Association does not recommend Oral Glucose Tolerance testing (OGTT) of non- patients. The World Health Organization recommends a 2 hour OGTT only for patients with fasting Glucose levels of 110 to <126mg/dl. Interpretive criteria for other conditions are not defined. reference: shira hamlin,et al. Clinical Chemistry 2002;48:436-472 Authorizing ProviderResult TypeResult StatusKamal R Chemali MDLAB BLOOD ORDERABLESFinal ResultPerforming OrganizationAddressCity/State/ZIP CodePhone Number [facility] [address] [place] [address] from Last 3 Months or Most Recently Relevant to Health Maintenance Insurance * Guarantor: Yolanda Caruso TypeRelation to PatientDate of BirthPhone Billing AddressPersonal/BlchibJhzt04/14/1996 [address] [place] [address] * Guarantor: Yolanda Caruso TypeRelation to PatientDate of BirthPhone Billing AddressPersonal/HfsgglOpmj13/14/[address] [address] Care Teams Team MemberRelationshipSpecialtyStart DateEnd Date Generic Provider, No Assigned [place], [place] [address] PCP - GeneralGeneral Practice02/26/24
--- OUTSIDE RECORDS SUMMARY | 2025-01-10 08:08 | XMS_ITS | Encounter Summary ---
Demographics Address [address] [place] [address] Home Phone Mobile Phone Email Address Preferred Language en Marital Status Unmarried Quaker Affiliation Unknown Race White Ethnic Group Unknown Author Organization [facility] Address [address] [facility] [place] [address] Care Team Providers Care Tool Machine Setup Operator Name Role Phone Unavailable Primary Care Provider Unavailabl e Encounter Details DateTypeDepartmentCare Team (Latest Contact Info)Vobnzubgqsj56/20/2025Travel Social History Tobacco UseTypesPacks/DayYears UsedDateSmoking Tobacco: NeverSmokeless Tobacco: NeverCommentsUnknownSex and Gender InformationValueDate RecordedSex Assigned at BirthNot on fileLegal NgyFyvpxy38/15/2023 7:09 PM EDTGender Identity Not on fileSexual OrientationNot on filedocumented as of this encounter Plan of Treatment DateTypeDepartmentCare Team (Latest Contact Info)Jpledrqrbbg02/20/2026 9:30 AM ESTOffice Visit [facility] [address] [place] [address] Nikki Cotter PA [address] [place] [phone] documented as of this encounter Visit Diagnoses Not on filedocumented in this encounter
--- OUTSIDE RECORDS SUMMARY | 2025-01-10 08:08 | XMS_ITS | Encounter Summary ---
Demographics Address [address] [place] [address] [place] [address] Home Phone Mobile Phone Email Address Preferred Language ENG Marital Status Single Episcopalian Affiliation Unknown Race White Ethnic Group Not or Lati no Author Organization [facility] Address [address] [place] [address] Care Team Providers Care Manager Field Name Role Phone Wang Sy DO Unavailable [phone] KerrieWang mora DO Primary Care Provider [phone] Hyun Leiva Unavailable Source Comments In the event this information is protected by the Federal Confidentiality of Alcohol and Drug AbusePatient Records regulations: The Federal rules restrict any use of the information to criminally investigate or prosecute any alcohol or drug abuse patient.[facility] Encounter Details DateTypeDepartmentCare Team (Latest Contact Info)Qfjqdcbkxwg29/21/2025 Get Medical Advice NEUROLOGY [address] [place] [phone] Juyd Gamez PSYD [address] [place] [address] Question Social History Tobacco UseTypesPacks/DayYears UsedDateSmoking Tobacco: FormerCigarettes0.35 02/12/2011 - 02/13/2016Smokeless Tobacco: NeverAlcohol UseStandard Drinks/Week CommentsNo0 (1 standard drink = 0.6 oz pure alcohol)PHQ-2AnswerDate RecordedPHQ- 2 azgeo846/14/2025Area Deprivation IndexAnswerDate RecordedNational Score (1- 100), lower number is lower afzo903306/15/2022State Score (1-10), lower number is lower okgc9943Data from: https://www.neighborhoodatlas.medicine.[facility].edu/. Last address used for lukqdfdrkyv[address]ka[address]CommentsNoSex and Gender InformationValueDate RecordedSex Assigned at XszhtWqluwf34/16/2022 8:31 PM EDT Legal DpkLaurtn80/05/2018 11:55 AM EDTGender IdentityNot on fileSexual OrientationNot on filedocumented as of this encounter Plan of Treatment DateTypeDepartmentCare Team (Latest Contact Info)Szmnoasoqmb97/05/2025 9:30 AM [facility] [address] [place] [phone] Judy Gamez PSYD [address] [place] [address] Follow Up01/29/2025 9:00 AM EST[facility] [address] [place] [phone] Judy Gamez PSYD [address] [place] [address] Follow Up02/18/2025 7:00 AM EST[facility] [address] [place] [phone] Judy Gamez PSYD [address] [place] [address] follow-up03/03/2025 9:30 AM EST[facility] [address] [place] [phone] Judy Gamez PSYD [address] [place] [address] Follow Up03/06/2025 9:00 AM ESTOffice Visit Gastroenterology [address] [place] [address] Jake Kevin Jr., DO [address] [place] [address], [place] [address] Return in about 6 qydfip0203/19/2025 9:00 AM EST[facility] [address] [place] [phone] Judy Gamez PSYD [address] [place] [address] Follow Up04/07/2025 9:30 AM [facility] [address] [place] [phone] Judy Gamez PSYD [address] [place] [address] Follow Up04/21/2025 9:30 AM EDTDistance Health NEUROLOGY [address] [place] [phone] Judy Gamez PSYD [address] [place] [address] Follow Up05/15/2025 9:30 AM EDTDistance Health NEUROLOGY [address] [place] [phone] Judy Gamez PSYD [address] [place] [address] Follow Up06/03/2025 8:00 AM EDTDistance Health NEUROLOGY [address] [place] [phone] Judy Gamez PSYD [address] [place] [address] documented as of this encounter Goals GoalPatient Goal TypeAssociated ProblemsRecent ProgressPatient-Stated?Author Blood Pressure < 130/80 Blood Jnmbgyvq57/63(08/08/2024 9:14 AM EDT)Shawn Beckford, MDdocumented as of this encounter Visit Diagnoses Not on filedocumented in this encounter Care Teams Team MemberRelationshipSpecialtyStart DateEnd Date Wang Sy DO [address] [place] [address] PCP - GeneralFamily Medicine05/12/20 Wang Sy DO [address] [facility] [address] [place] [address] ReferringFamily Medicine08/24/17 Hyun Leiva [address] [address] ReferringFamily Medicine05/12/20documented as of this encounter
--- OUTSIDE RECORDS SUMMARY | 2025-01-10 08:08 | XMS_ITS | Clinical Summary ---
Author Organization [facility] Address [address] [place] [address] Care Team Providers Care Procurement Specialist Name Role Phone Wang Sy Joo Primary Care Provider [phone] Allergies Active AllergyReactionsCriticalityNoted DateCommentsAmoxicillin-Pot Clavulanate Dizziness,Other,Rjzqxof6011/11/2020 extreme dizziness CephalexinGI intolerance,Unknown,Nausea And EmsoastsGuv81/30/2021iprofloxacin Oxvmxal6201/31/20209374FnnsmcusqmhZpxxkqpe90/02/2023EscitalopramDizziness,GI enbmlcjmqmq66/23/2018ModafinilHallucinations,Other,GgnwkjlWntk51/12/2023 JesdaldidjtihkZtlfraafh22/22/2024Orange BdooiPeaiWpe88/12/2018Orange OilRashLow 11/23/20177762ElbzxetoiqFvnhp75/30/2021 SUCIDAL IDEATIONS Sulfamethoxazole-TrimethoprimDiarrhea,GI intolerance,Nausea And Vomiting 06/07/2017TrimethoprimOther,Exwuxcw6803/25/2018 Medications MedicationSigDispense QuantityRefillsLast FilledStart DateEnd DateStatus ondansetron ODT (Zofran-ODT) 4 mg disintegrating tablet 4 MG ORALLY DAILY NEEDED FOR NAUSEA AND VOMITING FOR 7 DAYSActive meclizine (Antivert) 25 mg tablet Take 50 mg by mouth every 8 (eight) hours if needed.Active sodium chloride 1,000 mg tablet Take 1 g by mouth twice a day.09/13/2022ctive metoprolol tartrate (Lopressor) 25 mg tablet TAKE 1/2 TABLET BY MOUTH IN THE MORNING AND 1 AT BEDTIMEActive tiZANidine (Zanaflex) 4 mg tablet take 1 tablet by mouth everyday at bedtimeActive gabapentin (Neurontin) 300 mg capsule 300 mg at bedtime.Active gabapentin (Neurontin) 100 mg capsule 200 mg at bedtime.05/04/2019Active ALPRAZolam (Xanax) 0.5 mg tablet Take 0.5 mg by mouth if needed.Active pantoprazole (ProtoNix) 40 mg EC tablet Take 40 mg by mouth in the morning.5Active cyanocobalamin (Vitamin B-12) 1,000 mcg/mL injection INJECT 1 ML INTRAMUSCULARLY ONCE EVERY DAY X7 DAYS,1 ML ONCE A WEEK X90 DAYS,1 ML ONCE EVERY 30 DAYS4Active midodrine (Proamatine) 5 mg tablet Take 5 mg by mouth in the morning and at bedtime.Active fluticasone (Flonase) 50 mcg/actuation nasal spray 2 SPRAY INTRANASALLY DAILY FOR 30 DAYSActive ibuprofen 800 mg tablet every 8 (eight) hours.5Active promethazine (Phenergan) 25 mg tablet 25 MG ORALLY EVERY 6 HOURS NEEDED FOR NAUSEA AND VOMITING FOR 7 DAYS 5Active tretinoin (Retin-A) 0.025 % cream Apply to face, once daily at evening/night time, 30 day kckaji575Active hydrocortisone 2.5 % cream Apply thin layer to affected areas on the face bid prn for flares, 30 day supply 5Active hydrOXYzine HCL (Atarax) 25 mg tablet Take 25 mg by mouth every 8 (eight) hours if needed.4Active pyRIDostigmine (Mestinon) 60 mg tablet Indications:POTS (postural orthostatic tachycardia syndrome)Take 1 tablet (60 mg) by mouth three times daily. 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 Last 3 Months Social History Tobacco UseTypesPacks/DayYears UsedDateSmoking Tobacco: FormerCigarettesPassive Smoke Exposure: PastSmokeless Tobacco: Never Tobacco Cessation:Counseling Given: Not Answered Alcohol UseStandard Drinks/WeekCommentsNot Currently0 (1 standard drink = 0.6 oz pure alcohol)Humiliation, Afraid, Rape, and Kick questionnaireAnswerDate RecordedWithin the last year, have you been afraid of your partner or ex-partner?No11/10/2024Within the last year, have you been humiliated or emotionally abused in other ways by your partner or ex-partner?No11/10/2024 Within the last year, have you been kicked, hit, slapped, or otherwise physically hurt by your partner or ex-partner?No11/10/2024Within the last year, have you been raped or forced to have any kind of sexual activity by your part ner or ex-partner?No11/10/2024PHQ-2AnswerDate RecordedPatient Health Questionnaire-2 Lhohl030UT Safety & EnvironmentAnswerDate RecordedFear of Current or Ex-PartnerNot on file04/05/2023Emotionally AbusedNot on file 04/05/2023hysically AbusedNot on file04/05/2023Sexually AbusedNot on file 04/05/2023hysically or Sexually AbusedNot on file04/05/2023Comments UnknownSex and Gender InformationValueDate RecordedSex Assigned at BirthFemale 11/07/2024 2:06 PM EDTLegal KinWptdlo63/30/2022 12:05 AM EDTGender Identity Oveamb0911/10/2024 10:36 AM EDTSexual OrientationChoose not to txbuxwpf82/29/2025 10:36 AM EDTSexual OrientationHeterosexual or Ubpxmrst65/29/2025 10:36 AM EDT Last Filed Vital Signs Vital SignReadingTime TakenCommentsBlood Exawerlf242/68011/10/2024 11:38 AM EDT Sbugi2804/29/2025 11:38 AM EDTTemperature--Respiratory Rate--Oxygen Saturation-- Inhaled Oxygen Concentration--Mvwnmx88.6 kg (160 lb)11/10/2024 11:32 AM EDT Qvlpfj876.1 cm (5' 5 )11/10/2024 11:32 AM EDTBody Mass Index26.63011/10/2024 11:32 AM EDT Plan of Treatment Health MaintenanceDue DateLast DoneCommentsVaricella Vaccines (1 of 2 - 13+ 2- dose series)2006Pap Smear2014HPV Vaccines (1 - 3-dose SCDM series) 2020ervical Cancer Cktirsmfl89/14/2024HPV/Vdjhob2607/27/2023OVID-19 Vaccine ( season)2024Influenza Vaccine (#1)2024Depression Rrvxrmaii03/dult Ehrqxox05/15/Zoster Vaccines (1 of 2)07/27/2043HIB VaccinesAged OutNo longer eligible based on patient's age to complete this topicIPV VaccinesAged OutNo longer eligible based on patient's age to complete this topicMeningococcal B VaccineAged OutNo longer eligible based on patient's age to complete this topicMeningococcal VaccineAged OutNo longer eligible based on patient's age to complete this topicPneumococcal Vaccine: Pediatrics (0 to 5 Years) and At-Risk Patients (6 to 64 Years)Aged OutNo longer eligible based on patient's age to complete this topicRotavirus VaccinesAged Out No longer eligible based on patient's age to complete this topic Insurance * Guarantor: Joseph Caruso TypeRelation to PatientDate of BirthPhone Billing AddressPersonal/WkzahmFsnp94/14/1996 [place] [address] * Guarantor: Joseph Caruso TypeRelation to PatientDate of BirthPhone Billing AddressWorkers LfvgLsbz26/14/1996 [address] [facility] [place] [address] MemberSubscriberPlan / Payer (Effective 2020-Present)Name:Cammie Caruso Relation to Subscriber:EmployeeName:CAMMIE MENDEZ (Home) Address: [address] [facility] [address] Payer ID:[id number] Group ID:[id number] Type:Not on file Address: [address] [place] [address] Care Teams Team MemberRelationshipSpecialtyStart DateEnd Date Wang Sy [address] [place] [address] [address] [facility] - General10/13/21
--- OUTSIDE RECORDS SUMMARY | 2025-01-10 08:08 | XMS_ITS | Encounter Summary ---
Demographics Address [address] [place] [address] Home Phone Mobile Phone Email Address Preferred Language en Marital Status Single Uatsdin Affiliation Unknown Race White Ethnic Group Not or Lati no Author Organization [facility] Address [address] [place] [address] Phone Care Team Providers Care Electrician Refinery Name Role Phone Generic Provider, No Assigned Pcp MD Primary Car e Provider Unavailable Reason for Visit * ReasonCommentsMed Refill Encounter Details DateTypeDepartmentCare Team (Latest Contact Info)Ztzevidscmi49/22/2025Refill [facility] [address] [facility] [address] [place] [address] [place] [address] Department of Neurology [place], [place] [id number] Vitamin B12 deficiency Social History Tobacco UseTypesPacks/DayYears UsedDateSmoking Tobacco: FormerCigarettes Smokeless Tobacco: NeverCommentsUnknownSex and Gender InformationValue Date RecordedSex Assigned at BirthNot on fileLegal AgeZltjiq50/26/2022 5:40 AM ESTGender IdentityNot on fileSexual OrientationNot on filedocumented as of this encounter Plan of Treatment DateTypeDepartmentCare Team (Latest Contact Info)Buxtvxnzwuk68/22/2026 4:[address] [address] [facility] [address] [place] [address] [place] [address] [place] [address] documented as of this encounter Visit Diagnoses Diagnosis Vitamin B12 deficiency Other B-complex deficiencies documented in this encounter Additional Health Concerns AssessmentNoted TimeA fall risk assessment has been completed for the patient 05/06/2024 12:24 PM EDTdocumented as of this encounter Care Teams Team MemberRelationshipSpecialtyStart DateEnd Date Generic Provider, No Assigned Pcp, [place] [address] PCP - GeneralGeneral Practice02/26/24documented as of this encounter
--- OUTSIDE RECORDS SUMMARY | 2025-01-10 08:08 | XMS_ITS | Clinical Summary ---
Demographics Address [address] [facility] [place] [address] Home Phone Mobile Phone Email Address Preferred Language ENG Marital Status Single Mandaeism Affiliation Unknown Race White Ethnic Group Not or Lati no Author Organization [facility] Address [address] [place] [address] Care Team Providers Care Boring Machine Operator Vertical Name Role Phone Wang Sy DO Unavailable [phone] KerrieWang DO Primary Care Provider [phone] Hyun Leiva Unavailable Allergies Active AllergyReactionsCriticalityNoted DateCommentsAmoxicillin-Pot Clavulanate Other: See Eolkotpy04/30/2021 extreme dizziness Sulfamethoxazole-TrimethoprimGI Upset11/23/20170240JqwtbltpnvKtjixoe74/30/2021 TutkmallkesbfJdixjuq84/19/2020EscitalopramGI Upset11/23/2017ModafinilMental Status IronbxDzag97Orange DyltuVhho04/12/2018SertralineMental Status Change,Other: See Pepcczza50/30/2021TrimethoprimOther: See Ahwbuwmo38/11/2019 Medications * This document contains information received from the source organization and may not represent a complete record from that organization. MedicationSigDispense QuantityRefillsLast FilledStart DateEnd DateStatus ibuprofen (MOTRIN) 200 mg tablet Take 200 mg by mouth every 6 hours as needed for pain.Active acetaminophen (TYLENOL) 500 mg tablet Take 500 mg by mouth as needed.Active ondansetron orally disintegrating (ZOFRAN ODT) 4 mg disintegrating tablet Take 4 mg by mouth every 6 hours as needed for nausea/vomiting.11/12/2013ctive meclizine (ANTIVERT) 25 mg tab Take 50 mg by mouth three times daily as needed (TID PRN). As needed TIDActive fluticasone (FLONASE) 50 mcg/actuation nasal spray Use 2 Sprays in each nostril once daily.Active acetaminophen (ACETAMINOPHEN EXTRA STRENGTH) 500 mg tablet Take 500 mg by mouth every 6 hours as needed for pain.Active gabapentin (NEURONTIN) 100 mg capsule Indications:Chronic daily headacheTake 2 capsules by mouth once daily. (taken with 300mg capsule) 180 capsule ctive gabapentin (NEURONTIN) 300 mg capsule Indications:Chronic daily headache1 capsule at bedtime (taken with two 100 mg capsules) 90 capsule ctive hydrOXYzine HCl (ATARAX) 10 mg tablet Take 1 tablet by mouth three times daily as needed. 90 tablet ctive metoprolol tartrate, short acting, (LOPRESSOR) 25 mg tablet Take 25 mg by mouth twice daily. 12.5 mg in the morning and 25 mg in the evening Active sodium chloride 1 g tab Take 2 g by mouth three times daily. 1 gram in morning and 1 gram in evening Active tiZANidine (ZANAFLEX) 4 mg tablet take 1 tablet by mouth everyday at bedtime 30 tablet ctive nitroglycerin sublingual (NITROQUICK) 0.3 mg SL tablet Dissolve 1 tablet under the tongue one time only for 1 dose. To be administered in Radiology for CTA exam 1 tablet 12/01/2022ctive naltrexone HCl (NALTREXONE ORAL) Take 0.75 mg by mouth once daily.Active ALPRAZolam (XANAX) 0.5 mg tablet Take 0.5 mg by mouth.Active cyanocobalamin 1,000 mcg/mL INJECT 1 ML INTRAMUSCULARLY ONCE EVERY DAY X7 DAYS,1 ML ONCE A WEEK X90 DAYS,1 ML ONCE EVERY [address] (PROTONIX) 40 mg tablet TAKE 1 TABLET BY MOUTH EVERY DAY 90 tablet 5Active Active Problems ProblemNoted DateDiagnosed DateHeadache, wuuzezdbcis59 Difficulty phgzgpsx36ctivity /12/2023Impaired functional mobility, balance, gait, and ujadzqvos46/12/2023hronic fatigue tzcfoufz90/30/2023Obesity, Class I, BMI 30-34.9103/27/2021Mixed obsessional thoughts and acts12/26/2021TSD (post-traumatic stress disorder)12/26/2021 Cognitive communication wbofwui0402/10/2021OTS (postural orthostatic tachycardia syndrome)02/01/2021ong COVID02/01/2021ersonal history of COVID-19003/08/2020 Intractable tension-type vfkebylo56/25/2019Cerebrovascular popfuee7604/08/2018 Facial aglavftyqnn18/31/2018 Resolved Problems ProblemNoted DateDiagnosed DateResolved DateMood sgiugjch93/4COVID-191Hypermobility of joint Overview (11/29/2020): Hypermobility of elbow joints; 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 dogduymbuip89History of tobacco use Encounters DateTypeDepartmentCare BkktWkybaqesfwy91/21/2025Telephone NEUROLOGY [address] [place] [phone] Judy Gamez PSYD 01/02/2025MC Get Medical Advice NEUROLOGY [address] [place] [phone] Judy Gamez PSYD Xvvoztkz25/14/2025 9:30 AM ESTDistance [facility] [address] [place] [phone] Judy Gamez PSYD PTSD (post-traumatic stress disorder) (Primary Dx)12/26/2024Telephone NEUROLOGY [address] [place] [phone] Judy Gamez PSYD Opbdmipzjye92/31/2025 9:30 AM EDTDistance [facility] [address] [place] [phone] Potter, Judy, PSYD PTSD (post-traumatic stress disorder) (Primary Dx); Persistent depressive disorder with anxious distress, currently severe; Post-acute 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); POTS (postural orthostatic tachycardia syndrome)12/12/2024Telephone NEUROLOGY [address] [place] [phone] Judy Gamez PSYD Tybftrikucn39/31/9707Gqeslp52/19/2025 Get Medical Advice NEUROLOGY [address] [place] [phone] Judy Gamez PSYD Dgifntbukbkd04/11/2025 Patient Msg Psychiatry [address] [place] [address] Provider, Ccf Appointment Cancellationfrom Last 3 Months Immunizations ImmunizationAdministration DatesNext Duetetanus diphtheria pertussis (Tdap) vaccine, age 7+ yr (ADACEL, BOOSTRIX)11/27/2019 Family History Medical HistoryRelationCommentsHyperlipidemiaFatherHypertensionFather HyperlipidemiaMaternal GrandmotherafibMaternal GrandmotherHeart AttackPaternal GrandmotherRelationStatusCommentsFatherMaternal GrandmotherPaternal Grandmother Social History Tobacco UseTypesPacks/DayYears UsedDateSmoking Tobacco: FormerCigarettes0.35 02/12/2011 - 02/13/2016Smokeless Tobacco: Never Tobacco Cessation:Counseling Given: No Alcohol UseStandard Drinks/WeekCommentsNo0 (1 standard drink = 0.6 oz pure alcohol)PHQ-2AnswerDate RecordedPHQ-2 /14/2025Area Deprivation Index AnswerDate RecordedNational Score (1-100), lower number is lower risk80 06/15/2022State Score (1-10), lower number is lower ngxi662ata from: https://www.neighborhoodatlas.medicine.[facility].edu/. Last address used for gmieelpwqkz68 [address]/15/2022CommentsNoSex and Gender InformationValueDate RecordedSex Assigned at SngfeBmfttx93/16/2022 8:31 PM EDT Legal QblHatgbr32/05/2018 11:55 AM EDTGender IdentityNot on fileSexual OrientationNot on file Last Filed Vital Signs Vital SignReadingTime TakenCommentsBlood Cicccowi16/6306 9:14 AM EDT Hrrax392608/08/2024 9:14 AM PPTRjwnarptahc02.4 ??C (97.6 ??F)08/08/2024 9:14 AM EDTRespiratory Sxnk3312 11:08 AM EDTOxygen Skjtanzqju09%08/08/2024 9:14 AM EDTInhaled Oxygen Concentration--Bbilvs71.4 kg (179 lb 7.3 oz)08/08/2024 9:14 AM ABCWvneeh985.1 cm (5' 5 )08/08/2024 9:14 AM EDTBody Mass Index29.8608/08/2024 9:14 AM EDT Plan of Treatment DateTypeDepartmentCare Team (Latest Contact Info)Ldythfkjhbf95/05/2025 9:30 AM [facility] [address] [place] [phone] Judy Gamez PSYD [address] [place] [address] Follow Up01/29/2025 9:00 AM [facility] [address] [place] [phone] Judy Gamez PSYD [address] [place] [address] Follow Up02/18/2025 7:00 AM [facility] [address] [place] [phone] Judy Gamez PSYD [address] [place] [address] follow-up03/03/2025 9:30 AM [facility] NE[facility] [address] [place] [phone] Judy Gamez PSYD [address] [place] [address] Follow Up03/06/2025 9:00 AM ESTOffice Visit Gastroenterology [address] [facility] [place] [address] Jake Kevin Jr., DO [address] [place] [phone] Return in about 6 sqdlxt1603/19/2025 9:00 AM [facility] [address] [place] [phone] Judy Gamez PSYD [address] [place] [address] Follow Up04/07/2025 9:30 AM [facility] [address] [place] [phone] Judy Gamez PSYD [address] [place] [address] Follow Up04/21/2025 9:30 AM EDTDistance Health NEUROLOGY [address] [place] [phone] Judy Gamez PSYD [address] [place] [address] Follow Up05/15/2025 9:30 AM EDTDistance Health NEUROLOGY [address] [place] [phone] Judy Gamez PSYD [address] [place] [address] Follow Up06/03/2025 8:00 AM EDTDistance Health NEUROLOGY [address] [place] [phone] Judy Gamez PSYD [address] [place] [address] Health MaintenanceDue DateLast DoneCommentsDepression Hnvocaycb09/14/2012HIV Hxdsbmdwj41/14/2012Hepatitis C Whhjxxesj08/14/2012Hepatitis B Vaccine (1 of 3 - 19+ 3-dose series)2012Cervical Cancer Fqpapjzhm27/14/2015HPV Vaccine (1 - 3-dose SCDM series)1Covid-19 Vaccine (1 - 2024- season)2024 Influenza Vaccine (#1), 03/04/2018, 02/21/2018, Additional history existsDTaP,Tdap,Td Vaccine (2 - Td or Tdap) Goals GoalPatient Goal TypeAssociated ProblemsRecent ProgressPatient-Stated?Author Blood Pressure < 130/80 Blood Cnwmtcvy22/63(08/08/2024 9:14 AM EDT)Shawn Beckford MD Insurance * Guarantor: Cammie Caruso TypeRelation to PatientDate of BirthPhone Billing AddressPersonal/AearldZmrc27/14/1996 [address] [place] [address] * Guarantor: Cammie Caruso TypeRelation to PatientDate of BirthPhone Billing AddressWorkers VciaDvsp17/14/1996 [address] [place] [address] [address] [place] [phone] Care Teams Team MemberRelationshipSpecialtyStart DateEnd Date Wang Sy DO [address] [address] PCP - GeneralFamily Medicine05/12/20 Wang Sy DO [address] [address] ReferringFamily Medicine08/24/17 Hyun Leiva [address] [place] [address] [facility]05/12/20
--- OUTSIDE RECORDS SUMMARY | 2025-01-10 08:08 | XMS_ITS | Encounter Summary ---
Demographics Address [address] [facility] [place] [address] Home Phone Mobile Phone Email Address Preferred Language en Marital Status Unmarried Restoration Affiliation Unknown Race White Ethnic Group Unknown Author Organization [facility] Address [address] [place] [place] [address] Care Team Providers Care Cae Engineer Name Role Phone Unavailable Primary Care Provider Unavailabl e Encounter Details DateTypeDepartmentCare Team (Latest Contact Info)Quzjuklglot79/20/2025amboo flowsheet [facility] [address] [place] [address] Doris Bejarano, AIRCRAFT PNEUDRAULICS REPAIRER-DIRECTOR [employer] [address] [place] [address] Social History Tobacco UseTypesPacks/DayYears UsedDateSmoking Tobacco: NeverSmokeless Tobacco: NeverCommentsUnknownSex and Gender InformationValueDate RecordedSex Assigned at BirthNot on fileLegal VrdCybdfr66/15/2023 7:09 PM EDTGender Identity Not on fileSexual OrientationNot on filedocumented as of this encounter Plan of Treatment DateTypeDepartmentCare Team (Latest Contact Info)Iadmwbglwbo29/20/2026 9:30 AM ESTOffice Visit [facility] [address] [place] [address] Nikki Cotter PA [address] [place] [address] documented as of this encounter Visit Diagnoses Not on filedocumented in this encounter
--- OUTSIDE RECORDS SUMMARY | 2025-01-10 08:08 | XMS_ITS | Clinical Summary ---
Demographics Address [address] [place] [address] Mobile Phone Home Phone Email Address Preferred Language Norwegian Marital Status Single Mosque Affiliation Unknown Race White Ethnic Group Not or Lati no Author Organization [employer] [facility] Address [id number] [address] [place] [address] Care Team Providers Care Legal Director Name Role Phone Wang yS DO Primary Care Provider [phone] Allergies Active AllergyReactionsCriticalityNoted DateComments Sulfamethoxazole-Gziuaxbozwjz68/26/2018Escitalopram Rrimjen8007/04/2017 Medications MedicationSigDispense QuantityRefillsLast FilledStart DateEnd DateStatus gabapentin (NEURONTIN) 300 mg capsule Indications:ParesthesiaTake 1 capsule (300 mg total) by mouth 3 (three) times a day. 90 capsule Active Additional Information Patient taking differently:300 mg oral 3 times daily,500 mg AM, 400 mg afternoon and 500 mg HS, Reported on 04/23/2018 acetaminophen (TYLENOL) 500 mg tablet Take 500 mg by mouth.Active fluticasone (FLONASE) 50 mcg/actuation nasal spray inhale 2 spray in each nostril Once a gyc347Active ibuprofen (ADVIL,MOTRIN) 200 mg tablet Take 200 mg by mouth.Active gabapentin (NEURONTIN) 100 mg capsule Indications:VertigoTake 1 capsule (100 mg total) by mouth 3 (three) times a day. 90 capsule Active Additional Information Patient taking differently:100 mg oral 3 times daily,500 mg AM, 400 mg afternoon and 500 mg HS, Reported on 04/23/2018 tiZANidine (ZANAFLEX) 4 mg tablet Take 4 mg by mouth 3 (three) times a day.03/11/2018Active diazePAM (VALIUM) 5 mg tablet Take 5 mg by mouth 2 (two) times a day.Active meclizine (ANTIVERT) 25 mg tablet Take 25 mg by mouth 3 (three) times a day as needed for dizziness.Active Active Problems ProblemNoted DateDiagnosed DateSinus bxiiacnv33/09/2021Chronic mixed headache lniwpian25/09/2021Cerebrovascular ddontqg3404/08/2018Intractable tension-type euftuqsh69/25/2019Chronic neck pain04/07/2018Hypermobility of joint04/07/2018 Overview (04/07/2018): Hypermobility of elbow joints; 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 Photophobia of both eyes02/21/2018Bilateral otitis media02/21/2018Chronic tension-type headache, zvxuecwlcki81/21/2018Gait hjluotackyn85/15/2018Nystagmus 09/26/2017Facial wduiagpfaqi16/31/2018VertigoOtalgia, rightTinnitus of both ears Immunizations No known immunizations Family History Medical HistoryRelationNameCommentsHypertensionFatherArthritisMaternal GrandmotherHypertensionMaternal GrandmotherNo Known ProblemsMotherRelationName StatusCommentsFatherAliveMaternal GrandmotherAliveMotherAlive Social History Tobacco UseTypesPacks/DayYears UsedDateSmoking Tobacco: FormerSmokeless Tobacco: NeverAlcohol UseStandard Drinks/WeekCommentsNo0 (1 standard drink = 0.6 oz pure alcohol)PHQ-2AnswerDate RecordedTotal Hetpz6431ChildcareAnswerDate JchjbhhaNnmpqhvfeXervzvh57/13/2019EmploymentAnswerDate RecordedEmploymentUnknown 07/25/2018Purpose - LifeAnswerDate RecordedPurpose and direction in lifeUnknown 1CommentsNoSex and Gender InformationValueDate RecordedSex Assigned at BirthNot on fileLegal LogJxeqge09/23/2018 2:19 PM EDTGender Identity Not on fileSexual OrientationNot on file Last Filed Vital Signs Vital SignReadingTime TakenCommentsBlood Bbfoimgy550/7808 1:55 PM EDT Adwwv5356 1:55 PM KDYXngnwipffmt70.4 ??C (97.5 ??F)07/14/2017 11:56 AM EDTRespiratory Yant380507/14/2017 11:56 AM EDTOxygen Htbrgnchlk987%07/14/2017 11:56 AM EDTInhaled Oxygen Concentration--Ikjegl31.5 kg (148 lb 12.8 oz) 05/19/2020 11:00 AM JINDswmxc433.1 cm (5' 5 )05/19/2020 11:00 AM EDTBody Mass Index24.76005/19/2020 11:00 AM EDT Plan of Treatment Health MaintenanceDue DateLast DoneCommentsDepression Ndqltqvis74/14/2006Tobacco Bfhupzytf46/14/2006dult BMI Mdpcgqmut28/14/2012Pap Smear2014Influenza Ivxahbb3010/13/2024DTaP,Tdap and Td Vaccines (2 - Td or Tdap) Medical Devices Not on file Insurance * Guarantor: Yolanda CarusoAccount TypeRelation to PatientDate of PhoneBilling AddressPersonal/DcvenbNimm64/14/1996 [address] [place] [facility] [place] [address] Advance Directives * Full Code (Latest Code Status on File) Date ActivatedDate InactivatedComments07/12/2017 11:11 PM07/14/2017 4:15 PM Care Teams Team MemberRelationshipSpecialtyStart DateEnd Date Wang Sy DO PCP - GeneralFamily Medicine07/04/17
--- OUTSIDE RECORDS SUMMARY | 2025-01-10 08:08 | XMS_ITS | Patient Health Record ---
Demographics Address [address] [place] [address] Mobile Email Address Preferred Language en Marital Status unmarried Mormon Affiliation Unknown Race White Ethnic Group Not or Lati no Author Organization [facility] Address [address] [place] [address] Care Team Providers Care Healthcare Manager Name Role Phone Jarod Rowe Primary Care Provider [phone] Dr. Dayday Segovia Unavailable [phone] Esthela Graham Unavailable [phone] Reason For Referral No Information Medications Medication SIG (Take, Route, Frequency, Duration) Notes Start Date End Date Status Ibuprofen 800 MG Tablet 1 tablet with fo od or milk as needed Orally Three times a day 5Active Encounters Encounter Location Date Provider Diagnosis [facility] [address] [place] [address] 12/04/2024 Jarod Castrejonmariovelma [facility] [place] [address]/11/2024 Dayday Mitchell tooth K03.81[facility] [place] [address]/03/2024Joseph RizkDental caries on pit and fissure surface penetrating into dentin K02.52[facility] Dlnopmz558 [facility] [address]/Joph RizkEncounter for dental examination and cleaning with abnormal findings Z01.21 ; Other dental procedure status Z98.818 and Acute gingivitis, plaque induced K05.00[facility] Ovrmack001 [facility] [address]/03/2024Joseph RizkEncounter for dental examination and cleaning with abnormal findings Z01.21S [address] [place] [address] 12/16/2024[facility] examination and cleaning with abnormal findings Z01.21 Assessments Encounter Date Diagnosis (ICD Code) Assessment Notes Treatment Notes Treatment Clinical Notes Section Notes 12/16/2024 Encounter for dental examination and cleaning with abnormal findings (ICD-10 - Z01.21) 10/14/2024Encounter for dental examination and cleaning with abnormal findings (ICD-10 - Z01.21)02/22/2024racked tooth (ICD-10 - K03.81)02/14/2024Dental caries on pit and fissure surface penetrating into dentin (ICD-10 - K02.52) 09/06/2024Encounter for dental examination and cleaning with abnormal findings (ICD-10 - Z01.21)09/06/2024Other dental procedure status (ICD-10 - Z98.818) 5Acute gingivitis, plaque induced (ICD-10 - K05.00) Plan Of Treatment Next Appt Details Provider Name:Lisette Anglin, 03/11/2025 08:00:00 AM, [address], [place], [address], Insurance Providers Payer Name Payer Address Payer Phone Subscriber Number Group Number Insured Name Patient Relationship to Insured Coverage Start Date Coverage End Date z[employer] CE-termed [address] [place] [address] [id number] APARICIO, CAMMIE Self - patient is the insured 1 3 [facility] [place] [place] [address] [facility] [place] [address] [id number] MARKUS CAMMIE Self - patient is the insured 4 zMEDICAID C after [employer]-termed [address] [place] [address] [id number], BRANDISelf - patient is the insured ental Wrap [facility] CareSourcePO [address] [place] [address] [id number], BRANDISelf - patient is the insured 2023zDENTAL [employer]-termed [address] [place] [id number], BRANDISelf - patient is the insured zDental MEDICAID CFC after [employer]-ter[employer] [address] [place] [id number], BRANDISelf - patient is the [id number]
--- OUTSIDE RECORDS SUMMARY | 2025-01-10 08:08 | XMS_ITS | Encounter Summary ---
Demographics Address [address] [place] [address] Home Phone Mobile Phone Email Address .Octro Preferred Language en Marital Status Single Druze Affiliation Unknown Race White Ethnic Group Not or Lati no Author Organization [facility] Address [address] [place] [address] Phone Care Team Providers Care Livestock Broker Name Role Phone Generic Provider, No Assigned Pcp MD Primary Car e Provider Unavailable Reason for Visit * ReasonCommentsMed Refill Encounter Details DateTypeDepartmentCare Team (Latest Contact Info)Ycyihmwhude29/24/2025Refill [facility] [address] [facility] [address] [place] [address] [place] [address] Department of Neurology [place], [place] [phone] Vitamin B12 deficiency Social History Tobacco UseTypesPacks/DayYears UsedDateSmoking Tobacco: FormerCigarettes Smokeless Tobacco: NeverCommentsUnknownSex and Gender InformationValue Date RecordedSex Assigned at BirthNot on fileLegal TulMefppg10/26/2022 5:40 AM ESTGender IdentityNot on fileSexual OrientationNot on filedocumented as of this encounter Plan of Treatment DateTypeDepartmentCare Team (Latest Contact Info)Qukechkzmsw41/22/2026 4:30 PM ESTOffice Visit [facility] [address] [facility] [address] [place] [address] [place] [address] Department [place] [address] documented as of this encounter Visit Diagnoses Diagnosis Vitamin B12 deficiency Other B-complex deficiencies documented in this encounter Additional Health Concerns AssessmentNoted TimeA fall risk assessment has been completed for the patient 05/06/2024 12:24 PM EDTdocumented as of this encounter Care Teams Team MemberRelationshipSpecialtyStart DateEnd Date Generic Provider, No Assigned Pcp, [place] [address] PCP - GeneralGeneral Practice02/26/24documented as of this encounter
--- OUTSIDE RECORDS SUMMARY | 2025-01-10 08:08 | XMS_ITS | Clinical Summary ---
Demographics Address [address] [place] [address] Home Phone Mobile Phone Email Address Preferred Language en Marital Status Unmarried Islam Affiliation Unknown Race White Ethnic Group Unknown Author Organization [facility] Address [address] [place] [address] Care Team Providers Care Supermarket Manager Name Role Phone Unavailable Primary Care Provider Unavailabl e Allergies Active AllergyReactionsCriticalityNoted RdytBknokcciAdhorujbzzv17/14/2025 Other Reaction(s): suidical thoughts/ Vertigo Amoxicillin-Pot ClavulanateDizziness,Uyprpgj5911/11/2020 extreme dizziness Itkjgqcqtvny21/14/2025 Other Reaction(s): Dizzy on high doses CephalexinGI intolerance,VlzacqkFkt37/30/8280RzvhajbofrcpqOyycons38/19/2020 Clavulanic Acid11/25/2024 Other Reaction(s): suidical thoughts/ Vertigo YhmcmhwlrzwUllzqrjo40/02/2023EscitalopramDizziness,GI qteoosnfpxo18/23/2018 ModafinilHallucinations,Unknown,LywiaYyor22/12/2023NitrofurantoinDizziness 10/04/2023Orange BlzBylxOns88/12/9000Mtkyytcfondraryj87/14/2025 Other Reaction(s): Nausea, stomach upset Sulfamethoxazole-TrimethoprimDiarrhea,GI jzpsudhmbns68/26/2018Trimethoprim Twhimyc0803/25/2018 Medications MedicationSigDispense QuantityRefillsLast FilledStart DateEnd DateStatus ALPRAZolam (Xanax) 0.5 MG tablet Take 0.5 mg by mouth5Active cholecalciferol (Vitamin D-3) 1.25 MG (40566 UT) capsule TAKE 1 CAPSULE ORALLY EVERY WEEK FOR 90 DAYS5Active cyanocobalamin (Vitamin B-12) 1000 MCG/ML injection INJECT 1 ML INTRAMUSCULARLY ONCE EVERY DAY X7 DAYS,1 ML ONCE A WEEK X90 DAYS,1 ML ONCE EVERY 30 DAYSActive gabapentin (Neurontin) 100 MG capsule TAKE 2 CAPSULES BY MOUTH EVERY DAY AT BEDTIME FOR 90 DAYSActive gabapentin (Neurontin) 300 MG capsule TAKE 1 CAPSULE BY MOUTH EVERYDAY AT BEDTIMEActive metFORMIN XR (Glucophage-XR) 500 MG 24 hr tablet Take 500 mg by mouth Daily5Active methylPREDNISolone (Medrol Dospak) 4 MG tablets TAKE 6 TABLETS ON DAY 1 DIRECTED ON PACKAGE AND DECREASE BY 1 TAB EACH DAY FOR A TOTAL OF 6 DAYS5Active metoprolol tartrate (Lopressor) 25 MG tablet TAKE 1/2 TABLET BY MOUTH IN THE MORNING AND 1 AT BEDTIMEActive ondansetron ODT (Zofran-ODT) 4 MG disintegrating tablet 4 MG ORALLY DAILY NEEDED FOR NAUSEA AND VOMITING FOR 7 DAYSActive tiZANidine (Zanaflex) 4 MG tablet Take 4 mg by mouth at bedtimeActive tretinoin (Retin-A) 0.025 % cream Indications:Acne vulgarisApply to face, once daily at evening/night time, 30 day supply 45 g 1105Active hydrocortisone 2.5 % cream Indications:Irritant contact dermatitis, unspecified triggerApply thin layer to affected areas on the face bid prn for flares, 30 day supply 60 g 5Active promethazine (Phenergan) 25 MG tablet 25 MG ORALLY EVERY 6 HOURS NEEDED FOR NAUSEA AND VOMITING FOR 7 DAYS 5Active pyridostigmine (Mestinon) 60 MG tablet Three times daily5Active spironolactone (Aldactone) 25 MG tablet Indications:Acne vulgarisTake 1 tablet, by mouth, once daily, 30 days 30 tablet 5ActiveHospital, Clinic, or Other Facility Administered Medication Ordered DoseRouteFrequencyStart DateEnd DateStatus triamcinolone acetonide (Kenalog) injection 5 mg Indications:Keloid scar5 qmPPHxaf12/20/2025Active Active Problems No known active problems Encounters DateTypeDepartmentCare YympWbjxwbnmyxw10/20/2025 10:05 AM ESTOffice Visit [facility] [address] [place] [address] Doris Bejarano, POLITICAL WORKER-EXECUTIVE ADMINISTRATIVE ASSISTANT Acne vulgaris (Primary Dx); Facial angiofibroma; Keloid scar01/01/2025amboo flowsheet [facility] [address] [place] [address] Doris Bejarano POLITICAL WORKER-EXECUTIVE ADMINISTRATIVE ASSISTANT 01/01/20251128Orhhtu30/28/2025 9:20 AM EDTOffice Visit [facility] [address] [place] [address] Doris Bejarano, POLITICAL WORKER-EXECUTIVE ADMINISTRATIVE ASSISTANT Acne vulgaris (Primary Dx)12/09/2024amboo flowsheet [facility] [address] [place] [address] Doris Bejarano POLITICAL WORKER-EXECUTIVE ADMINISTRATIVE ASSISTANT 12/09/20243723Addmgi97/22/2025 10:05 AM EDTOffice Visit [facility] [address] [place] [address] Doris Bejarano, POLITICAL WORKER-EXECUTIVE ADMINISTRATIVE ASSISTANT Acne xmghifom96/22/2025amboo flowsheet [facility] [address] [place] [address] Doris Bejarano POLITICAL WORKER-EXECUTIVE ADMINISTRATIVE ASSISTANT 11/03/20243802Zrukaj51/02/2025Telephone [facility] [address] [place] [phone] Halima Victoria LPN from Last 3 Months Social History Tobacco UseTypesPacks/DayYears UsedDateSmoking Tobacco: NeverSmokeless Tobacco: Never Tobacco Cessation:Counseling Given: Not Answered CommentsUnknownSex and Gender InformationValueDate RecordedSex Assigned at BirthNot on fileLegal VqsOejvhc35/15/2023 7:09 PM EDTGender IdentityNot on fileSexual OrientationNot on file Last Filed Vital Signs Vital SignReadingTime TakenCommentsBlood Ferhqqqe674/8003/06/2017 12:00 PM EST Pulse--Temperature--Respiratory Rate--Oxygen Saturation--Inhaled Oxygen Concentration--Xqmggy10 kg (172 lb)09/09/2020 12:00 PM CPFJjoetc472.1 cm (5' 5 ) 09/09/2020 12:00 PM EDTBody Mass Index28.62009/09/2020 12:00 PM EDT Plan of Treatment DateTypeDepartmentCare Team (Latest Contact Info)Eqjdrmtihql08/20/2026 9:30 AM ESTOffice Visit [facility] [address] [place] [address] Nikki [address] PA [address] [place] [address] Procedures Procedure NamePriorityDate/TimeAssociated DiagnosisCommentsDER [facility] INTRALESIONAL KENALOG MMVRCQKPPOyhsozb86/20/2025 10:31 AM EST Keloid scar from Last 3 Months Results * Intralesional Kenalog Injection (01/01/2025 10:31 [...] injected: ??1 Authorizing ProviderResult TypeResult StatusNatalie A Darci POLITICAL WORKER-CNPDERM PROCEDURE ORDERABLESFinal Result from Last 3 Months Insurance * Guarantor: Yolanda Caruso NAccount TypeRelation to PatientDate of BirthPhone Billing AddressPersonal/ZdukfcPmjh16/14/[address] [place] [address] [place] [address]
[2025-01-10] MEDS: KETOROLAC TROMETHAMINE 30 MG/ML VIAL IVP (08:09)
--- OUTSIDE RECORDS SUMMARY | 2025-01-10 08:10 | XMS_ITS | CCD ---
Demographics Address [address] [place] [address] Phone Preferred Language en Marital Status Single Voodoo Affiliation Unknown Race White Ethnic Group Not or Lati no Author Organization [facility] CliniSyfl Care Team Providers Care Sports Announcer Name Role Phone LI, HONGYAN Admitting Unavailable LI, HONGYAN Attending Unavailable LI, HONGYAN Referring Unavailable KERRIE, MISHA M Primary Care Unavailable LI, HONGYAN Admitting Unavailable LI, HONGYAN Attending Unavailable LI, HONGYAN Referring Unavailable KERRIE, MISHA M Primary Care Unavailable LI, HONGYAN Admitting Unavailable LI, HONGYAN Attending Unavailable LI, HONGYAN Referring Unavailable KERRIE, MISHA M Primary Care Unavailable LI, HONGYAN Admitting Unavailable LI, HONGYAN Attending Unavailable LI, HONGYAN Referring Unavailable KERRIE, IMSHA M Primary Care Unavailable LI, HONGYAN Admitting Unavailable LI, HONGYAN Attending Unavailable LI, HONGYAN Referring Unavailable KERRIE, MISHA M Primary Care Unavailable LI, HONGYAN Admitting Unavailable LI, HONGYAN Attending Unavailable LI, HONGYAN Referring Unavailable KERRIE, MISHA M Primary Care Unavailable MOUSSAAMYAMAD A Admitting Unavailable MOUSSAAMYAMAD A Attending Unavailable KERRIE, MISHA M Primary Care Unavailable SELF, REFERRED Referring Unavailable LI, HONGYAN Admitting Unavailable LI, HONGYAN Attending Unavailable LI, HONGYAN Referring Unavailable KERRIE, MISHA M Primary Care Unavailable LI, HONGYAN Admitting Unavailable LI, HONGYAN Attending Unavailable LI, HONGYAN Referring Unavailable KERRIE, MISHA M Primary Care Unavailable LI, HONGYAN Admitting Unavailable LI, HONGYAN Attending Unavailable LI, HONGYAN Referring Unavailable KERRIE, MISHA M Primary Care Unavailable LI, HONGYAN Admitting Unavailable LI, HONGYAN Attending Unavailable LI, HONGYAN Referring Unavailable KERRIE, MISHA M Primary Care Unavailable LI, HONGYAN Admitting Unavailable LI, HONGYAN Attending Unavailable LI, HONGYAN Referring Unavailable KERRIE, MISHA M Primary Care Unavailable Unknown, Referring Provider Unavailable Unav ailable Kerrie , Misha Anaya Unavailable [phone] Kerrie DO, Misha Anaya Primary Care Provider Cali, Hyun M Unavailable Blayne Barajas MD Unavailable Kerrie, Misha Unavailable Edie Gonzalez Unavailable GabriellaMary bernardo Unavailable Cali, Hyun Unavailable Eileen Guzman Unavailable DarrelClairgy Unavailable Kerrie DO, Misha Anaya Unavailable Kerrie DO, Misha Anaya Primary Care Provider Cali, Hyun M Unavailable Blayne Barajas MD Unavailable Kerrie DOMisha Unavailable Kerrie DO Misha Anaya Primary Care Provider Cali, Hyun M Unavailable Blayne Barajas MD Unavailable Kerrie DOMisha Unavailable Kerrie DO Misha Anaya Primary Care Provider Cali, Hyun M Unavailable Blayne Barajas MD Unavailable Kerrie, DO Misha Ge. Primary Care Provider PANFILO Ornelas Attending Provider Armando Ornelas Unavailable DEVIN ., DR GUTIERREZ Attending Unavailable DEVIN ., DR GUTIERREZ Consulting Unavailable DEVIN ., DR GUTIERREZ Admitting Unavailable KERRIE, DR MISHA Ge Primary Care Unavailable KERRIE, DR MISHA Ge Attending Unavailable KERRIE, DR MISHA Ge Consulting Unavailable KERRIE, DR MISHA Ge Primary Care Unavailable KERRIE, DR MISHA Ge Admitting Unavailable Magdaleno, Edie Unavailable DO Yolanda Staples Emergency Provider DO Misha Sy Primary Care Provider MD Annalise Jerez Admit Provider MD Annalise Jerez Attending Provider DO Misha Sy Attending Provider Blayne Barajas MD Unavailable Misha Sy DO Primary Care Provider Unavailable Primary Care Provider UnavailMISHA Melton Primary Care Physician [phone] Cmar, Arlette Andrade Unavailable Unavailable DO Yvonne Rausch Attending Unavailable Melanie Meyer PA-C Attending Provider Rajni Decker APRN Attending Provider [phone] Misha Sy DO Primary Care Provider Cameron Meyer Attending Unavailable Duaen Nichole Attending Unavailable JEAN MARIE MEDINA Attending Unavailable Vianye Cervantes Attending Unavailable Yvonne Rausch Attending Unavailable CZIRR, CARENDA J Referring Unavailable GENERIC PROVIDER, NO ASSIGNED PCP Primary Care Unavailable GENERIC PROVIDER, NO ASSIGNED PCP Primary Care Unavailable GENERIC PROVIDER, NO ASSIGNED PCP Primary Care Unavailable GENERIC PROVIDER, NO ASSIGNED PCP Primary Care Unavailable GENERIC PROVIDER, NO ASSIGNED PCP Primary Care Unavailable GENERIC PROVIDER, NO ASSIGNED PCP Primary Care Unavailable GENERIC PROVIDER, NO ASSIGNED PCP Primary Care Unavailable CZIRR, CARENDA J Referring Unavailable CZIRR, CARENDA J Referring Unavailable CZIRR, CARENDA J Referring Unavailable CZIRR, CARENDA J Referring Unavailable CZIRR, CARENDA J Referring Unavailable Unavailable Primary Care Provider UnavailMisha Melton DO Primary Care Provider Rajni Decker APRN Attending Provider [phone] Oksana Brooks DO Attending Provider [phone] Krystina Schuster Attending Provider Unavailable Celeste Saenz DNP Attending Provider Kerrie DO, Misha M. Attending Provider Yoanna Whitehead RD Attending Provider Unavailab Maddi Ordoñez Attending Provider Unavailable HyDavid whitmore DO Attending Provider [phone] Generic Provider MD, No Assigned Pcp Primary Car e Provider Unavailable KERRIE, MISHA ANAYA Primary Care Unavailable DAVID KEVIN JR Attending Unavailable KERRIE, MISHA ANAYA Primary Care Unavailable DAVID KEVIN JR Referring Unavailable KERRIE, MISHA ANAYA Primary Care Unavailable CHEMALI, KAMAL R Attending Unavailable CHEMALI, KAMAL R Referring Unavailable CHEMALI, KAMAL R Referring Unavailable CHEMALI, KAMAL R Attending Unavailable CHEMALI, KAMAL R Attending Unavailable GENERIC PROVIDER, NO ASSIGNED PCP Primary Care Unavailable CHEMALI, KAMAL R Attending Unavailable GENERIC PROVIDER, NO ASSIGNED PCP Primary Care Unavailable NO FAMILY, PHYSICIAN Primary Care Provider Unava ilable Kerrie DO, Misha M. Primary Care Provider Rajni Decker APRN Attending Provider Celeste Saenz DNP Attending Provider Kerrie DO, Misha M. Attending Provider Krystina Schuster Attending Provider Unavailable Kerrie DO, Misha M. Primary Care Provider Yoanna Whitehead RD Attending Provider Unavailab Rajni Lozada APRN Attending Provider [phone] KEELEY COSME Attending Unavailable CHEMALI, KAMAL R Referring Unavailable GENERIC PROVIDER, NO ASSIGNED PCP Primary Care Unavailable Kerrie DO, Misha M. Primary Care Provider Rajni Silverio APRN Attending Provider Edie Dolan APRN Attending Provider Kerrie DO, Misha M. Primary Care Provider Maddi Denis Attending Provider Unavailable Jeannine Allen APRN Attending Provider ALYCE BELLE Attending Unavailable Kerrie DO, Misha M. Primary Care Provider Kerrie DO, Misha M. Attending Provider Yoanna Whitehead RD Attending Provider Unavailab Celeste Patino DNP Attending Provider NORTHMARIA GUADALUPEM, NIKKI Attending Unavailable NORTHEIM, NIKKI Attending Unavailable NORTHEIM, NIKKI Attending Unavailable FELTER, DORIS A Attending Unavailable FELTER, DORIS A Attending Unavailable POTTER, JUDY Attending Unavailable KERRIE, MISHA ANAYA Primary Care Unavailable POTTER, JUDY Attending Unavailable KERRIE, MISHA ANAYA Primary Care Unavailable POTTER, JUDY Referring Unavailable KERRIE, MISHA ANAYA Primary Care Unavailable POTTER, JUDY Attending Unavailable KERRIE, MISHA ANAYA Primary Care Unavailable POTTER, JUDY Attending Unavailable POTTER, JUDY Referring Unavailable KERRIE, MISHA ANAYA Primary Care Unavailable POTTER, JUDY Attending Unavailable POTTER, JUDY Attending Unavailable KERRIE, MISHA ANAYA Primary Care Unavailable POTTER, JUDY Attending Unavailable KERRIE, MISHA ANAYA Primary Care Unavailable POTTER, JUDY Attending Unavailable SELF Referring Unavailable KERRIE, MISHA ANAYA Primary Care Unavailable POTTER, JUDY Attending Unavailable KERRIE, MISHA ANAYA Primary Care Unavailable POTTER, JUDY Attending Unavailable KERRIE, MISHA ANAYA Primary Care Unavailable POTTER, JUDY Referring Unavailable POTTER, JUDY Attending Unavailable KERRIE, MISHA ANAYA Primary Care Unavailable Kerrie DO, Misha M. Primary Care Provider Kerrie DO, Misha M. Attending Provider Yoanna Whitehead RD Attending Provider Unavailab Edie García APRN Attending Provider [phone] Jeannine Allen APRN Attending Provider [phone] Celeste Saenz DNP Attending Provider [phone] Kerrie, Misha M. Primary Care Unavailable Kerrie, Misha M. Attending Unavailable Kerrie, Misha M. Admitting Unavailable Kerrie, Misha M. Primary Care Unavailable Kerrie, Misha M. Attending Unavailable Kerrie, Misha M. Admitting Unavailable MauricChelsiee M Admitting Unavailable MauricChelsiee M Attending Unavailable Kerrie, Misha M. Primary Care Unavailable Mauric, Rajni M Admitting Unavailable Mauric, Rajni M Attending Unavailable NO FAMILY, PHYSICIAN Primary Care Unavailable Kerrie, Misha M. Admitting Unavailable Misha Sy Primary Care Unavailable Misha Sy Attending Unavailable Rajni Silverio Admitting Unavailable Rajni Silverio Attending Unavailable Melanie Meyer Admitting Unavailable Melanie Meyer Attending Unavailable Allergies Allergy ClassificationReported Allergen(s)Allergy TypeDate of OnsetReaction(s) FacilityAmoxicillin / Clavulanate (1 source)Amoxicillin / ClavulanateDrug Kbiizxs50-73-6528Atpam: See Comments [facility] Work Phone: Cephalosporins (antibiotic) (2 sources)CephalexinDrug Exaqyqq38-19-4602XchrmgkFkuedawgjUniversity Hospitals Elyria Medical CenterClavulanate (1 source)ClavulanateDrug Gwmkgqo43-86-9173 suidical thoughts/ Vertigo [facility] HospitalDihydrofolate Reductase Inhibitors (antibiotic) (2 sources)TrimethoprimDrug Rtrsxyt87-45-9652Cbina: See CommentsCherrington HospitalDoxycycline (1 source)DoxycyclineDrug Vwjwrzu96-92-2636Fbohccmx, extreme headache [facility] HospitalMacrolides (antibiotic) (1 source)AzithromycinDrug Krpdoee25-32-2742Zhtsx on high dosesCherrington Hospitalmodafinil (2 sources)modafinilDrug Ykmajxz66-89-0957Jbozqj Status ChangeCherrington HospitalNitrofurantoin (1 source)NitrofurantoinDrug Evvychh13-34-4970pzemusvriXxnxivosa Regional Medical CenterPenicillins (antibiotic) (1 source)AmoxicillinDrug Fmvhuhm63-19-0167 suidical thoughts/ Vertigo [facility] HospitalQuinolones (antibiotic) (2 sources)CiprofloxacinDrug Bzzlnmb63-25-5855SliqumjZpcxvlyirKettering Health Prebleerotonin Reuptake Inhibitors (SSRIs) (4 sources)EscitalopramDrug Hrmtlhk10-01-6414AT Upset, Mental Status Change, Other: See CommentsOhio State Health Systemulfamethoxazole / Trimethoprim (1 source)Sulfamethoxazole / TrimethoprimDrug Zdhfteb93-78-9068SH UpsetOhioHealth Arthur G.H. Bing, MD, Cancer Centerulfonamides (antibiotic) (1 source)SulfamethoxazoleDrug Mgbsnhj38-19-5702Blnrug, stomach upsetCherrington Hospital (3 sources)Escitalopram; Translations: [Lexapro]Drug Ugcqblp00-58-4810Zew [facility] Repository (3 sources)Sulfamethoxazole / Trimethoprim; Translations: [Bactrim]Drug Allergy 63-01-6178Xvo [facility] Repository (20 sources)Amoxicillin / Clavulanate; Translations: [amoxicillin-clavulanate] Drug Donveuw09-93-3422Injso: See Comments, Dizziness (finding), Dizziness, UnknownCincinnati Children'S Hospital Medical Center Work Phone: (20 sources)Cephalexin; Translations: [cephalexin]Drug Mijxbwj42-69-3494Zbabezx, Vomiting (disorder), GI intoleranceCincinnati Children'S Hospital Medical Center (20 sources)Ciprofloxacin; Translations: [CIPROFLOXACIN]Drug Cbappab17-55-8818 UnknownCincinnati Children'S Hospital Medical Center (20 sources)Escitalopram; Translations: [escitalopram]Drug Alkgmaz63-96-9067AM Upset, Dizziness and giddiness (finding), Dizziness, GI intoleranceCincinnati Children'S Hospital Medical Center (20 sources)[place] juice; Translations: [ORANGE JUICE]Drug Xnnulye46-96-0517Egsb [facility] (20 sources)Sertraline; Translations: [SERTRALINE]Drug Ozvgenz55-65-3997Sxjvby Status Change, Other: See Comments, OtherCincinnati Children'S Hospital Medical Center (20 sources)Sulfamethoxazole / Trimethoprim; Translations: [sulfamethoxazole-trimethoprim]Drug Opcvmwh25-53-4350YI Upset, Diarrhea, Nausea/vomiting, GI intoleranceCincinnati Children'S Hospital [facility] Center (20 sources)Trimethoprim; Translations: [TRIMETHOPRIM]Drug Cszsxwz96-42-1673 Other: See Comments, UnknownCincinnati Children'S Hospital Medical Center (20 sources)AzithromycinDrug Hzobsmc22-40-6923Yicoy on high dosesCherrington Hospital (20 sources)Doxycycline; Translations: [DOXYCYCLINE]Drug Eukahih78-15-9207 HeadacheCherrington Hospital (20 sources)NITROFURANTOIN, MACROCRYSTALS / Nitrofurantoin, MonohydrateDrug Cyelfzo73-54-1489XhpakbiovCdmph [employer] Other (20 sources)Cephalexin; Translations: [Keflex]Drug AllergyProMedica Defiance [facility] (17 sources)Amoxicillin / Clavulanate; Translations: [Augmentin]Drug Allergy suidical thoughts/ Vertigo [facility] Repository (20 sources)Sulfamethoxazole; Translations: [sulfamethoxazole]Drug Allergy 42-06-0203Dkqqol, Nausea, stomach upsetC[facility]rington Hospital (1 source)CiprofloxacinDrug Ibflkub06-22-8430Tnp [facility] Repository (1 source)Sulfamethoxazole / TrimethoprimDrug AllergyThe [facility] (20 sources)modafinil; Translations: [MODAFINIL]Drug Avcpakw57-87-1446Lfhjdk Status Change, Hallucinations, OtherC[facility] (20 sources)Amoxicillin; Translations: [amoxicillin]Drug Brctlfy79-03-0001 suidical thoughts/ Vertigo [facility] (20 sources)Clavulanate; Translations: [clavulanic acid]Drug Mhealst08-61-7598 suidical thoughts/ Vertigo [facility] (20 sources)Nitrofurantoin; Translations: [NITROFURANTOIN]Drug Pbvljkj82-99-8114 DizzinessCherrington Hospital (3 sources)NITROFURANTOIN MONOHYD/M-CRYST; Translations: [NITROFURANTOIN MONOHYD/M-CRYST]Propensity to adverse reactions to drug (disorder)09-83-2286[facility] (12 sources)modafinilDrug Glbwxys62-31-9419Aztbahgxxzvxau, Unknown, OtherNOMS Healthcare (13 sources)orange allergenic extract; Translations: [ORANGE OIL]Drug Allergy 68-62-5887JoahXGWB Healthcare (1 source)AzithromycinDrug Buygssb04-47-3580ZyfqkpptfC[facility]rington Hospital Repository (1 source)CephalexinDrug Wdyahtb80-60-1264YqotnvavqC[facility] Hospital Repository (1 source)CiprofloxacinDrug Tehovvw03-50-9339BpfdfqkeeC[facility] Hospital Repository (1 source)DoxycyclineDrug Gwoimmh93-55-9864NkwjotwldCherrington Hospital Repository (1 source)EscitalopramDrug Aotkakc29-99-1617DcrobqyagC[facility]rington Hospital Repository (1 source)modafinilDrug Zhtedzw26-42-4065HijuxpmaeC[facility]rington Hospital Repository (1 source)SertralineDrug Gzqsnrb47-82-3483KmbgjcgggC[facility]rington Hospital Repository (1 source)TrimethoprimDrug Bsnrwjv95-29-5613QuttzcpupC[facility]rington Hospital Repository Medications Current Medications MedicationDrug Class(es)DatesSig (Normalized)Sig (Original)acetaminophen 500 mg oral tablet (20 sources)Start: 03-30-2023 End: 26-97-6987nplr 1 tablet by mouth every six hours as neededAcetaminophen (Tylenol Extra Strength) 500 mg tablet Active 500 MG PO Every 6 hours as needed July 28, 2024 8:09am FreeTextSi tablet as needed Orally every 6 hrs; Note: Source Status: Taking; Provider: Kerrie Piña ( ) Complies with drug therapyStart: 11-12-5569fxvg 2 capsules by mouth four times daily Acetaminophen (Tylenol Extra Strength) 500 mg Capsule Active 1000 MG PO Four times daily March 12, 2020 1:00amStart: 03-12-2020 End: 52-22-3948bhrt 2 capsules by mouth four times daily as needed for pain Acetaminophen (Tylenol Extra Strength) 500 mg Capsule Discontinued 1000 MG PO Four times daily as needed for Pain March 12, 2020 12:00am September 13, 2022 7:12pmtake 2 tablets by mouth every six hours as neededacetaminophen (Tylenol) 500 mg tablet Take 2 tablets (1,000 mg) by mouth every 6 hours if needed for mild pain (1 - 3). ActiveComment on above:Take 500 mg by mouth as needed.Take 500 mg by mouth every 6 hours as needed for pain.cetirizine hydrochloride 10 mg oral tablet (2 sources)Histamine-1 Receptor AntagonistStart: 41-61-1499kesr 1 tablet by mouth once dailycetirizine 10 mg Tab 10 mg = 1 tab(s), Oral, Daily, # 30 tab(s), Refills(s) 0, [facility], 166, cm, 10/28/19 20:04:00 EDT, Height/Length Dosing, 76.5, kg, 10/28/19 20:04:00 EDT, Weight Dosing Start Date: 10/28/19 Status: Ordered Quantity: 30.0 Unit: tab(s) Repeat number: 1 cholecalciferol 1.25 mg oral capsule (20 sources)Vitamin DStart: 22-84-5420ryiy 1 capsule by mouth every week Cholecalciferol (Vitamin D3) 1,250 mcg (50,000 unit) capsule Active 0 .ROUTE .COMPLEX 13 September 24, 2024 12:01pm TAKE 1 CAPSULE ORALLY EVERY WEEK FOR 90 DAYS Complies with drug therapyStart: 03-31-2024 End: 11-27-0020oyhd 1 capsule by mouth every weekCholecalciferol (Vitamin D3) 1,250 mcg (50,000 unit) capsule Discontinued 1250 MCG PO every week 1390 March 31, 2024 12:00am September 24, 2024 12:01pmStart: 03-12-2020 End: 82-44-8249qikw 1 capsule by mouth once dailyCholecalciferol (Vitamin D3) (Vitamin D3) 25 mcg (1,000 unit) Capsule Discontinued 25 MCG PO Daily March 12, 2020 12:00am September 13, 2022 1:06pmdiazePAM 2 mg oral tablet (20 sources)BenzodiazepineStart: 05-17-2022 End: 13-00-2917dlgc 1 tablet by mouth every eight hours as neededdiazePAM (VALIUM) 2 mg tablet Indications: Vertigo, central origin Take 1 tablet by mouth every 8 hours as needed (vertigo) for up to 60 days. 30 tablet 1 05/17/2022 07/16/2022 ActiveStart: 00-05-7783vtdq 0.5 tablet by mouth once dailydiazePAM 2 MG 0.5 tab Orally Once a day for 30 days Apr, Not-TakingStart: 73-00-6228cezu 0.5 tablet by mouth once dailydiazePAM 2 MG 0.5 tab Orally Once a day for 30 days Mar, ActiveStart: 11-58-3056ncit 0.5 tablet by mouth once dailydiazePAM 2 MG 0.5 tab Orally Once a day for 30 days Feb, ActiveStart: 34-35-7376zbmm 0.5 tablet by mouth every twelve hoursdiazePAM 2 MG 0.5 tab Orally every 12 hrs for 30 days Dec, ActiveStart: 83-45-3085regd 0.5 tablet by mouth every twelve hoursdiazePAM 2 MG 0.5 tab Orally every 12 hrs for 30 days Nov, ActiveStart: 09-03-2020 End: 83-49-2373qaoq 1 mg by mouth once dailydiazePAM (VALIUM) 2 mg tablet Take 1 mg by mouth once daily. 0 09/03/2020 08/29/2021 DiscontinuedStart: 04-17-2020 take 1 tablet by mouth twice daily as needed for dizzinessValium 5 mg Tab 5 mg = 1 tab(s), Oral, BID, PRN Dizziness, Ordered by another provider., Refills(s)0 Start Date: 04/17/20 Status: Ordered Repeat number: 1Start: 04-07-2017 End: 95-17-5608vekl 1 tablet by mouth twice daily as needed for dizziness Diazepam (Valium) 2 mg Tablet Discontinued 2 MG PO Twice daily as needed for Dizziness April 07, 2017 12:00am July 10, 2017 12:57pmComment on above: Take 1 mg by mouth once daily.Take 1 tablet by mouth every 8 hours as needed (vertigo) for up to 60 days.diclofenac sodium 75 mg delayed release oral tablet (2 sources)Nonsteroidal Anti-inflammatory DrugStart: 09-11-4984qnpp 1 tablet by mouth every twelve hoursDiclofenac Sodium 75 MG 1 tablet as needed Orally Twice a day for 10 days Nov, Activedicyclomine hydrochloride 10 mg oral capsule (1 source)AnticholinergicStart: 02-17-2024 End: 59-76-9053tdaa 1 capsule by mouth four times dailyBentyl 10 mg Cap 10 mg = 1 cap(s), Oral, QID, X 7 day(s), # 14 cap(s), Refills(s) 0, [facility]: [id number], 164, cm, 02/17/24 2:04:00 EST, Height/Length Dosing, 82.5, kg, 02/17/24 2:04:00 EST,Weight Dosing Start Date: 02/17/24 Stop Date: 02/24/24 Status: Orderedfluticasone 0.05 mg/inh Nasal [place] (3 sources)Start: 39-36-8557mtft 2 spray(s) nasal route once dailyfluticasone 0.05 mg/inh Nasal [place] 2 spray(s), Nasal, Daily, 16 gram, Refill(s) 0, each nostril, [facility], 166, cm, 10/28/19 20:04:00 EDT, Height/Length Dosing, 76.5, kg, 10/28/19 20:04:00 EDT, Weight Dosing Start Date: 10/28/19 Status: Ordered Quantity: 16.0 Unit: g Repeat number: 1Start: 10-28-2019 take 2 spray(s) nasal route once dailyfluticasone 0.05 mg/inh Nasal [place] 2 spray(s), Nasal, Daily, 16 gram, Refill(s) 0, each nostril, [facility], 166, cm, 10/28/19 20:04:00 EDT, Height/Length Dosing, 76.5, kg, 10/28/19 20:04:00 EDT, Weight Dosing Start Date: 10/28/19 Status: Ordered fosfomycin 3000 mg powder for oral solution (9 sources)Start: 04-06-3959ovbm 3 g by mouth onceMonurol 3 GM as directed Orally once for 1 days Mar, Activegabapentin 100 mg oral capsule (20 sources)Anti-epileptic AgentStart: 10-30-2024 End: 52-05-3563bgkf 1 capsule by mouth once daily at bedtimeGabapentin 300 mg capsule Active 0 .ROUTE .COMPLEX 30 3 October 30, 2024 3:40pm TAKE 1 CAPSULE BY MOUTH EVERYDAY AT BEDTIME Complies with drug therapyStart: 10-30-2024 End: 11-23-9460nukq 2 capsules by mouth once daily at bedtimeGabapentin 100 mg capsule Active 0 .ROUTE .COMPLEX 60 3 October 30, 2024 3:40pm TAKE 2 CAPSULESBY MOUTH EVERY DAY AT BEDTIME FOR 90 DAYS Complies with drug therapy Start: 10-09-2024 End: 65-87-7962lmza 1 capsule by mouth once daily at bedtimeGabapentin 300 mg capsule Discontinued 300 MG PO Daily at bedtime October 09, 2024 10:39am October 30, 2024 11:40amStart: 10-09-2024 End: 79-99-0272aumc 2 capsules by mouth once daily at bedtimeGabapentin 100 mg capsule Discontinued 200 MG PO Daily at bedtime October 09, 2024 10:39am October 30, 2024 11:40amStart: 04-29-2024 End: 94-77-8838fmgd 1 capsule by mouth once daily at bedtimeGabapentin 300 mg capsule Discontinued 0 .ROUTE .COMPLEX 30 3 June 25, 2024 11:23am October 09, 2024 10:40am TAKE 1 CAPSULE BY MOUTH EVERYDAY AT BEDTIMEStart: 04-29-2024 End: 99-85-9468mijm 2 capsules by mouth once daily at bedtimeGabapentin 100 mg capsule Discontinued 0 .ROUTE .COMPLEX 60 2 July 28, 2024 4:17pm October 09, 2024 10:40am TAKE 2 CAPSULES BY MOUTH EVERY DAY AT BEDTIME FOR 90 DAYSStart: 04-03-2023 End: 47-66-2527qlst 200 mg by mouth once daily at bedtimeGabapentin Active 200 MG PO Daily at bedtime 180 90 October 29, 2023 11:49amStart: 10-11-2022 End: 55-28-5209aqkl 2 capsules by mouth once daily at bedtimeGabapentin 100 mg capsule Discontinued 200 MG PO Daily at bedtime 180 90 October 29, 2023 10:49am April 29, 2024 10:10amStart: 09-13-2022 End: 01-88-5526lxiz 200 mg by mouth twice dailyGabapentin Discontinued 200 MG PO Twice daily September 13, 2022 12:00am April 03, 2023 9:52amStart: 02-13-2021 End: 92-73-9798hthp 2 capsules by mouth twice dailyGabapentin 100 mg capsule Discontinued 200 MG PO Twice daily September 12, 2022 11:00pm April 03, 2023 8:52amStart: 07-09-2020 End: 61-06-3731pcsl 2 capsules by mouth three times dailygabapentin (NEURONTIN) 100 mg capsule Indications: Chronic daily headache Take 2 capsules by mouth t hree times daily. (to be taken with 300mg, 3x/day) 180 capsule 11 07/09/2020 02/13/2021 DiscontinuedStart: 06-05-2019 End: 97-10-2029czcg 1 capsule by mouth once daily at bedtimeGabapentin 300 mg capsule Discontinued 300 MG PO Daily at bedtime 90 90 October 29, 2023 10:48am April 29, 2024 10:10amStart: 03-10-9352npyo 2 capsules by mouth four times dailygabapentin 100 mg Cap 200 mg = 2 cap(s), Oral, QID, # 720 cap(s), Refills(s) 0 Start Date: 05/04/19 Status: Ordered Quantity: 720.0 Unit: cap(s) Repeat number: 1Start: 17-65-1943wcbr 1 capsule by mouth three times daily gabapentin 300 mg Cap 300 mg = 1 cap(s), Oral, TID, # 90 cap(s), Refills(s) 0 Start Date: 05/04/19 Status: Ordered Quantity: 90.0 Unit: cap(s) Repeat number: 1 Start: 02-17-2018 End: 69-30-7668Bhamiijxit 400 mg Capsule Discontinued 500 MG PO Daily February 17, 2018 12:00am September 13, 2022 6:52pmStart: 02-17-2018 End: 89-66-4374etyr 500 mg by mouth once dailyGabapentin Discontinued 500 MG PO Daily February 17, 2018 1:00am September 13, 2022 7:52pmtake 1 capsule by mouth once in the eveningGabapentin 100 MG 1 capsule Orally 500 mg q am and 500 mg q pm for 30 days ActiveComment on above:1 capsule 2x/dayTake 2 capsules by mouth twice daily. (taken with 300mg capsule)1 capsule in am, 1 capsule in afternoon, 3 capsules at bedtimeTake 2 capsules by mouth three times daily. (to be taken with 300mg, 3x/day)Take 2 capsules by mouth once daily. (taken with 300mg capsule)1 capsule at bedtime (taken with two 100 mg capsules)hydrocortisone 25 mg/ml topical cream (11 sources)CorticosteroidStart: 95-89-8444Apdogxtvkcrjcn 2.5 % cream Active APPLIC TOPICAL daily as needed October 22, 2024 11:00pm Complies with drug therapyStart: 84-32-3338qmbvayfwfyhtmf 2.5 % cream Indications: Irritant contact dermatitis, unspecified trigger Apply thinlayer to affected areas on the face bid prn for flares, 30 day supply 60 g 10/14/2024 Activeibuprofen 200 mg oral tablet (20 sources)Nonsteroidal Anti-inflammatory DrugStart: 57-74-0718czql 4 tablets by mouth every six hours as neededIbuprofen 200 mg tablet Active 200 MG PO as needed March 30, 2023 12:00am FreeTextSi tablets Orally every 6 hrs/PRN; Note: Source Status: Taking; Provider: Kerrie Piña ( ) Complies with drug therapyStart: 03-12-2020 End: 83-19-8600Rtgivvacq 600 mg tablet Discontinued 800 MG PO Three times daily March 12, 2020 12:00am September 13, 2022 7:12pmStart: 03-12-2020 End: 64-94-2684xrda 800 mg by mouth three times dailyIbuprofen Discontinued 800 MG PO Three times daily March 12, 2020 1:00am September 13, 2022 8:12pmtake 1 tablet by mouth every six hours as neededibuprofen (MOTRIN) 200 mg tablet Take 200 mg by mouth every 6 hours as needed for pain. Activetake 1 tablet by mouth every eight hours as neededibuprofen 800 mg tablet Take 1 tablet (800 mg) by mouth every 8 hours if needed for mild pain (1 - 3). Activetake 4 tablets by mouth every six hours as neededIbuprofen 200 MG 4 tablets Orally every 6 hrs/PRN ActiveComment on above:Take 200 mg by mouth as needed.Take 200 mg by mouth every 6 hours as needed for pain.iv contrast (will be provided with radiology test) (1 source)Start: 12-01-2022 End: 63-17-8237fkehax 1 dose intravenously onceiv contrast (will be provided with radiology test) CTA Coronary. No IV access, insert saline lock prior to the sedation, infusion, injection for imaging exam. Discontinue saline lock post exam. If Pt. has a central line or IVAD, may access for administration according to line specific nursing protocol. Once exam is complete flush line and de- access according to line specific nursing protocol in the CT contrast administration guidelines link. 1 Each 0 12/01/2022 12/02/2022 ActiveComment on above:CTA Coronary. No IV access, insert saline lock prior to the sedation, infusion, injection for imaging exam. Discontinue saline lock post exam. If Pt. has a central line or IVAD, may access for administration according to line specific nursing protocol. Once exam is complete flush line and de-access according to line specific nursing protocol in the CT contrast administration guidelines link.meclizine hydrochloride 25 mg oral tablet (20 sources)AntiemeticStart: 10-09-2023 End: 76-95-9888mfwe 1 tablet by mouth once daily as neededMeclizine 25 mg tablet Active 25 MG PO Daily as needed December 11, 2023 8:06am Complies with drug therapyStart: 08-24-2023 End: 00-62-5111divt 1 tablet by mouth once dailyMeclizine Discontinued 0 .ROUTE .COMPLEX August 24, 2023 8:30am October 09, 2023 9:15am TAKE 1 TABLET BY MOUTH DAILYStart: 06-25-2023 End: 69-00-8515qnwa 1 tablet by mouth once dailyMeclizine 25 mg tablet Discontinued 0 .ROUTE .COMPLEX 30 August 24, 2023 7:30am October 09, 2023 8:15am TAKE 1 TABLET BY MOUTH DAILYStart: 06-25-2023 End: 14-98-1258yzej 1 tablet by mouth once dailyMeclizine Discontinued 0 .ROUTE .COMPLEX June 25, 2023 11:31am August 24, 2023 8:30am TAKE 1 TABLET BY MOUTH DAILYStart: 97-69-6495utkw 1 tablet by mouth once dailyMeclizine Active 0 .ROUTE .COMPLEX June 25, 2023 11:31am TAKE 1 TABLET BY MOUTH DAILYStart: 04-02-2023 End: 03-73-0986voha 1 tablet by mouth once dailyMeclizine 25 mg tablet Discontinued 25 MG PO Daily April 19, 2023 10:18am June 25, 2023 10 :31amStart: 09-13-2022 End: 20-99-7035myzf 1 tablet by mouth once dailyMeclizine 50 mg Tablet Discontinued 50 MG PO Daily September 12, 2022 11:00pm September 13, 2022 7:12pm Start: 81-83-9531jmpx 1 tablet by mouth three times daily as needed for dizzinessmeclizine 25 mg Tab 25 mg = 1 tab(s), Oral, TID, PRN for dizziness, # 15 tab(s), Refills(s) 0, Pharmacy: [facility] [address], 165, cm, 12/04/19 21:28:00 EDT, Height/Length Dosing, 62, kg, 12/04/19 21:28:00 EDT, Weight Dosing Start Date: 12/04/19 Status: Ordered Quantity: 15.0 Unit: tab(s) Repeat number: 1Start: 12-04-2019 End: 15-16-2905ojgpyrgfg (ANTIVERT) 25 mg tab Take 25 mg by mouth as needed. 0 12/04/2019 02/01/2021 DiscontinuedStart: 04-07-2017 End: 01-40-4342qsax 1 tablet by mouth twice daily as needed for dizziness Meclizine 25 mg tablet Discontinued 25 MG PO Twice daily as needed for Dizziness April 07, 2017 12:00am July 10, 2017 12:57pmtake 2 tablets by mouth every eight hours as neededmeclizine (ANTIVERT) 25 mg tab Take 50 mg by mouth three times daily as needed (TID PRN). As neededTID Activetake 1 tablet by mouth three times daily as neededMeclizine HCl 50 MG 1 tablet as needed Orally tid prn for 10 days ActiveComment on above:Take 25 mg by mouth as needed.Take 25 mg by mouth as needed. As needed TIDTake 50 mg by mouth three times daily as needed (TID PRN). As needed TIDmetoclopramide 10 mg oral tablet (1 source)Dopamine-2 Receptor AntagonistStart: 36-29-8207jfto 1 tablet by mouth every six hoursReglan 10 mg Tab 10 mg = 1 tab(s), Oral, q6hr, # 12 tab(s), Refills(s) 0, Pharmacy: [facility]/pharmacy #[id number], 164, cm, 02/17/24 2:04:00 EST, Height/Length Dosing, 82.5, kg, 02/17/24 2:04:00 EST, Weight Dosing Start Date: 02/17/24 Status: Orderedmetoprolol tartrate 25 mg oral tablet (20 sources)beta-Adrenergic BlockerStart: 12-01-6258lyns 0.5 tablet by mouth in the morning, then take 1 tablet by mouth at bedtimeMetoprolol Tartrate 25 mg tablet Active 0 .ROUTE .COMPLEX 135 August 25, 2024 12:59pm TAKE 1/2 TABLET BY MOUTH IN THE MORNING AND 1 AT BEDTIME Complies with drug therapyStart: 81-00-8491Zcskpcchi 25 mg oral tablet Refills(s) 0 Start Date: 05/05/24 Status: Ordered Repeat number: 1Start: 05-08-2023 End: 33-92-4800wnpy 0.5 tablet by mouth in the morning, then take 1 tablet by mouth at bedtimeMetoprolol Tartrate 25 mg tablet Discontinued 25 MG PO .COMPLEX 135 90 1 August 27, 2023 12:50pm August 25, 2024 12:59pm 1/2 tab by mouth in the morning and one tab by mouth at bedtime;Start: 05-08-2023 End: 44-24-3391pgiz 0.5 tablet by mouth once daily in the morning, then take 1 tablet by mouth in the eveningMetoprolol Tartrate Discontinued 12.5 MG PO Daily May 08, 2023 10:09am June 25, 2023 2:53pm 1/2 tab in the AM, 1 tab in the pmStart: 09-15-2022 End: 14-11-7527gjyl 1 tablet by mouth once dailyMetoprolol Tartrate 25 mg tablet Discontinued 25 MG PO Daily June 24, 2023 11:00pm June 25, 2023 1:57pmStart: 09-15-2022 End: 37-53-6444enrc 12.5 mg by mouth once dailyMetoprolol Tartrate Discontinued 12.5 MG PO Daily September 15, 2022 12:00am May 08, 2023 10:11amStart: 09-13-2022 End: 51-43-8906usdc 1 tablet by mouth twice dailyMetoprolol Tartrate 25 mg Tablet Discontinued 25 MG PO Twice daily September 12, 2022 11:00pm September 13, 2022 7:12pmStart: 04-03-2022 End: 77-81-0732Rtsuktkley Tartrate 25 mg Tablet Discontinued 12.5 MG PO Daily 0 September 14, 2022 11:00pm May 08, 2023 9:11amStart: 11-02-2021 End: 71-97-3546dtar 1 tablet by mouth twice dailymetoprolol tartrate, short acting, (LOPRESSOR) 25 mg tablet Take 1 tablet by mouth twice daily. Pt taking 12.5 mg in am and 25 mg at night 180 tablet 2 01/24/2022 ActiveStart: 08-31-2021 End: 59-99-2730ukgb 1 tablet by mouth once daily in the morning, then take 0.5 tablet by mouth in the eveningmetoprolol tartrate, short acting, (LOPRESSOR) 25 mg tablet TAKE 1 TABLET BY MOUTH ONCE A DAY IN THE MORNING AND 1/2 TABLET IN THE EVENING 45 tablet 3 10/25/2021 11/02/2021 DiscontinuedStart: 07-19-2021 End: 30-59-6105lgxr 1 tablet by mouth once daily in the eveningmetoprolol succinate ER (TOPROL XL) 25 mg 24 hr tablet Take 1 tablet by mouth once daily. Take 25 mg in the morning and 12.5 mg in the evening. 45 tablet 2 07/19/2021 08/31/2021 Discontinued (Other)Start: 06-01-2021 End: 84-65-5875fonk 0.5 tablet by mouth twice dailymetoprolol tartrate, short acting, (LOPRESSOR) 25 mg tablet Take 0.5 tablets by mouth twice daily. 30 tablet 3 06/01/2021 07/19/2021 DiscontinuedMetoprolol Succinate Activetake 1 tablet by mouth every twenty-four hoursComment on above:Take 0.5 tablets by mouth twice daily.Take 1 tablet by mouth once daily. Take 25 mg in the morning and 12.5 mg in the evening.Take 1 tablet by mouth once daily in morning and 1/2 tablet by mouth daily in eveningTAKE 1 TABLET BY MOUTH ONCE A DAY IN THE MORNING AND 1/2 TABLET IN THE EVENINGTake 1 tablet by mouth twice daily.Take 1 tablet by mouth twice daily. Pt taking 12.5 mg in am and 25 mg at nightPt taking 12.5 mg in am and 25 mg at nightTake 25 mg by mouth twice daily. 12.5 mg in the morning and 25 mg in the eveningmidodrine hydrochloride 5 mg oral tablet (20 sources)alpha-Adrenergic AgonistStart: 08-27-2024 End: 78-73-7334nlct 1 tablet by mouth three times dailyMidodrine 5 mg tablet Active 5 MG PO Three times daily October 09, 2024 10:31am Complies with drug therapyStart: 08-14-2024 End: 95-38-9660qyle 1 tablet by mouth every eight hoursnitroglycerin 0.3 mg sublingual tablet (20 sources)Nitrate VasodilatorStart: 33-59-4104taln 1 tablet under the tongue oncenitroglycerin sublingual (NITROQUICK) 0.3 mg SL tablet Dissolve 1 tablet under the tongue one time only for 1 dose. To be administered in Radiology for CTA exam 1 tablet 12/01/2022 ActiveComment on above:Dissolve 1 tablet under the tongue one time only for 1 dose. To be administered in Radiology for CTA exam ondansetron 4 mg disintegrating oral tablet (20 sources)Serotonin-3 Receptor AntagonistStart: 10-30-2024 End: 08-48-0261ijlm 1 tablet by mouth once daily as needed for nausea and vomitingOndansetron 4 mg tablet,disintegrating Active 0 .ROUTE .COMPLEX 28 0 October 30, 2024 3:40pm 4 MG ORALLY DAILY NEEDED FOR NAUSEA AND VOMITING FOR 7 DAYS Complies with drug therapyStart: 10-09-2023 End: 12-81-8379nnrr 1 tablet by mouth once daily as needed for nausea and vomitingOndansetron 4 mg tablet,disintegrating Discontinued 4 MG PO Daily as needed for nausea and zfapxnxv54 7 0 May 30, 2024 7:12am October 30, 2024 11:40amStart: 07-30-2023 End: 58-06-5812Fcemavtdjww 4 mg tablet,disintegrating Discontinued 0 .ROUTE .COMPLEX 60 3 July 30, 2023 8:16am October 09, 2023 8:15am DISSOLVE 1 TABLET ON THE TONGUE TWICE A DAY NEEDEDStart: 28-46-9757wogd 1 tablet by mouth every six hoursZofran ODT 4 MG 1 tablet on the tongue and allow to dissolve Orally every 6 hrs for 10 days ActiveStart: 15-72-2519Zomsq: 11-12-2013 End: 25-35-2593Fowygmnbwxv 4 mg tablet,disintegrating Discontinued 4 MG PO as needed March 30, 2023 12:00am July 30, 2023 8:16amStart: 86-01-9865kywd 1 tablet by mouth every six hours as neededondansetron orally disintegrating (ZOFRAN ODT) 4 mg disintegrating tablet Take 4 mg by mouth every 6 hours as needed for nausea/vomiting. 11/12/2013 Activetake 1 tablet by mouth every eight hours as neededondansetron ODT (Zofran-ODT) 4 mg disintegrating tablet Dissolve 1 tablet (4 mg) in the mouth every8 hours if needed. Activetake 1 tablet by mouth twice daily as neededOndansetron 4 MG 1 tablet on the tongue and allow to dissolve Orally twice a day as needed for 30 days Activetake 1 tablet by mouth every six hours as neededOndansetron 8 MG 1 tablet on the tongue and allow to dissolve Orally every 6 hours as needed for 10days ActiveComment on above:Take 4 mg by mouth once daily as needed.Take 4 mg by mouth every 6 hours.Take 4 mg by mouth every 6 hours as needed for nausea/vomiting.pantoprazole 40 mg delayed release oral tablet (20 sources)Proton Pump InhibitorStart: 08-27-2024 End: 46-20-2480ebxq 1 tablet by mouth twice dailyPantoprazole 40 mg tablet,delayed release (DR/EC) Active 40 MG PO Twice daily September 25, 2024 7:33am Complies with drug therapyStart: 20-43-5503coii 1 tablet by mouth once dailypantoprazole DR (PROTONIX) 40 mg tablet TAKE 1 TABLET BY MOUTH EVERY DAY 90 tablet 3 09/02/2024 ActiveStart: 58-35-9608zrdp 1 tablet by mouth once daily pantoprazole DR (PROTONIX) 40 mg tablet Take 1 tablet by mouth once daily. 30 tablet 2 08/08/2024 Activepropranolol hydrochloride 10 mg oral tablet (15 sources)beta-Adrenergic Blockertake 1 tablet by mouth every twelve hours Propranolol HCl 10 MG 1 tablet Orally Twice a day Activepyridostigmine bromide 60 mg oral tablet (3 sources)Start: 40-36-9987qesg 1 tablet by mouth three times daily Pyridostigmine Harris 60 mg tablet Active 60 MG PO Three times daily November 24, 2024 11:00pm Complies with drug therapySEMAGLUTIDE 2.5 MG/ML VIAL (1 source)Start: 70-68-8815LORITPICYAH 2.5 MG/ML VIAL SEMAGLUTIDE 2.5 MG/ML VIAL Start Date: 05/05/24 Status: Ordered Repeat number: 1sodium chloride 1000 mg oral tablet (20 sources)Start: 56-39-8391dgqd 1 tablet by mouth twice dailysodium chloride 1,000 mg tablet Take 1 tablet (1 g) by mouth 2 times a day. 09/13/2022 Active Start: 09-13-2022 End: 47-34-3851tsna 1 tablet by mouth three times dailySodium Chloride 1,000 mg tablet,soluble Discontinued 1000 MG PO Three times daily September 12, 2022 1 1:00pm January 28, 2024 8:29amStart: 07-06-2022 End: 12-10-8343vckt 1 tablet by mouth three times daily at mealtimesodium chloride 1 gram tab TAKE 1 TABLET BY MOUTH 3 TIMES A DAY *TAKE WITH FOOD* 270 tablet 2 09/07/2022 10/09/2022 DiscontinuedStart: 06-27-2021 End: 38-11-4034szss 1 tablet by mouth three times daily at mealtimesodium chloride 1 gram tab TAKE 1 TABLET BY MOUTH 3 TIMES A DAY *TAKE WITH FOOD* 90 tablet 5 03/23/2022 ActiveStart: 03-28-2021 End: 98-89-8530rwny 1 tablet by mouth three times daily at mealtimesodium chloride 1 gram tab TALE 1 TABLET BY MOUTH THREE TIMES DAILY. TAKE WITH FOOD. 90 tablet 2 03/28/2021 06/25/2021 ActiveStart: 11-11-2020 End: 12-16-5412tgdskg chloride 0.9 % (flush) 10 mL (BD POSIFLUSH)take 2 tablets by mouth three times daily, then take 1 tablet by mouth in the morning, then take 1 tablet by mouth in the eveningsodium chloride 1 g tab Take 2 g by mouth three times daily. 1 gram in morning and 1 gram in evening Activetake 1 tablet by mouth every twelve hoursSodium Chloride 1 GM 1 tablet Orally Twice a day for 30 days Activetake 2 tablets by mouth three times daily, then take 1 tablet by mouth in the morning, then take 1 tablet by mouth in the eveningsodium chloride 1 g tab Take 2 g by mouth three times daily. 1 gram in morning and 1 gram in evening 0 ActiveSodium Chloride 1 GM as directed Orally Twice a day ActiveSodium Chloride ActiveComment on above:TALE 1 TABLET BY MOUTH THREE TIMES DAILY. TAKE WITH FOOD.TAKE 1 TABLET BY MOUTH 3 TIMES A DAY *TAKE WITH FOOD*Take 2 g by mouth three times daily. 1 gram in morning and 1 gram in eveningtiZANidine 4 mg oral tablet (20 sources)Central alpha-2 Adrenergic AgonistStart: 09-29-2024 End: 11-30-8675bwrr 1 tablet by mouth once daily at bedtimeTizanidine 4 mg tablet Active 0 .ROUTE .COMPLEX 11 07September 29, 2024 11:58am TAKE 1 TABLET BY MOUTH EVERYDAY AT BEDTIME Complies with drug therapyStart: 03-21-2024 End: 61-46-7705hcgo 1 tablet by mouth once daily at bedtimeTizanidine 4 mg tablet Discontinued 0 .ROUTE .COMPLEX 11 07March 21, 2024 12:54pm March 31, 2024 8:15am TAKE 1 TABLET BY MOUTH EVERYDAY AT BEDTIMEStart: 07-30-2023 End: 10-50-5439yqhn 1 tablet by mouth once daily at bedtimeTizanidine 4 mg tablet Discontinued 0 .ROUTE .COMPLEX 11 07July 30, 2023 8:16am October 0848:15am TAKE 1 TABLET BY MOUTH EVERYDAY AT BEDTIMEStart: 11-06-2022 End: 58-44-0848whhv 1 tablet by mouth once daily at bedtimeTizanidine 4 mg tablet Discontinued 4 MG PO Daily at bedtime March 31, 2024 8:14am September 29, 2024 11:55amStart: 09-18-2022 End: 48-82-9738lnqz 1 tablet by mouth once daily at bedtimetiZANidine (ZANAFLEX) 4 mg tablet TAKE 1 TABLET BY MOUTH EVERYDAY AT BEDTIME 30 tablet 1 10/11/2022 ActiveStart: 15-76-8648ncot 1 tablet by mouth every eight hourstiZANidine 4 mg Tab 4 mg = 1 tab(s), Oral, q8hr, # 90 tab(s), Refills(s) 0 Start Date: 05/04/19 Status: Ordered Quantity: 90.0 Unit: tab(s) Repeat number: 1Start: 03-25-2018 End: 50-90-0205tvcv 1 tablet by mouth once dailyTizanidine 4 mg tablet Discontinued 4 MG PO Daily March 25, 2018 12:00am September 13, 2022 7:12pm Start: 03-04-2018 End: 56-45-9020lfij 1 tablet by mouth three times dailytiZANidine (ZANAFLEX) 4 mg tablet Take 1 tablet by mouth three times daily. 90 tablet 06/05/2019 12/30/2020 DiscontinuedtiZANidine HCl ActiveComment on above:Take 1 tablet by mouth daily at bedtime.Take 1 tablet by mouth three times daily.TAKE 1 TABLET BY MOUTH EVERYDAY AT BEDTIMEtretinoin 0.25 mg/ml topical cream (20 sources)RetinoidStart: 08-27-2024 End: 55-14-5551Bpcdpoqbl 0.025 % cream Active 1 APPLIC TOPICAL Twice a Week September 25, 2024 7:34am Complies withdrug therapyStart: 80-13-8895xqtdfuvdb (Retin-A) 0.025 % cream Indications: Acne vulgaris Apply to face, once daily at evening/night time, 30 day supply 45 g 07/21/2024 ActiveStart: 07-17-2024 tretinoin (Retin-A) 0.025 % cream Indications: Acne vulgaris Apply to face, once daily at evening/night time, 30 day supply 45 g 07/17/2024 ActiveStart: 66-26-9158uxgekooso (Retin-A) 0.025 % cream Indications: Acne vulgaris Apply to face, once daily at evening/night time, 30 day supply 45 g 07/17/2024 Active Tylenol Extra Strength 500 MG (20 sources)take 1 tablet by mouth every six hours as neededTylenol Extra Strength 500 MG 1 tablet as needed Orally every 6 hrs ActiveVentolin HFA 90 mcg/inh Aerosol (2 sources)Start: 34-06-0325ahjb 1 puff(s) by inhalation once for wheezing Ventolin HFA 90 mcg/inh Aerosol 1 puff(s), Inhalation, Once for wheezing, 8 gram, Refill(s) 0 StartDate: 03/01/20 Status: Ordered Quantity: 8.0 Unit: g Repeat number: 1Start: 74-45-1372ayek 1 puff(s) by inhalation once for wheezing Ventolin HFA 90 mcg/inh Aerosol 1 puff(s), Inhalation, Once for wheezing, 8 gram, Refill(s) 0 StartDate: 1/18/21 Status: Orderedvitamin b12 1 mg/ml injectable solution (20 sources)Vitamin F86Hjbgi: 83-14-8140ukewjr 1000 ug by intramuscular injection every monthCyanocobalamin (Vitamin B-12) 1,000 mcg/mL solution Active 1000 MCG IM every month January 28, 2024 8:27am Complies with drug therapy Start: 12-11-2023 End: 81-84-5276daegwm 1000 ug by intramuscular injection every week Cyanocobalamin (Vitamin B-12) 1,000 mcg/mL solution Discontinued 1000 MCG IM every week December 10, 2023 11:00pm January 28, 2024 8:29amStart: 71-40-0248jneluf 1000 ug by intramuscular injection every weekCyanocobalamin (Vitamin B-12) Active 1000 MCG IM every week December 11, 2023 12:00amStart: 11-19-2023 End: 83-82-1018xrqtpw 1 mL by intramuscular injection once daily, then inject 1 mL by intramuscular injection every week, then inject 1 mL by intramuscular injection every 30 dayscyanocobalamin (Vitamin B-12) 1,000 mcg/mL injection Indications: Vitamin B12 deficiency INJECT 1MLINTRAMUSCULARLY ONCE EVERYDAY FOR 7 DAYS, THEN 1ML ONCE A WEEK FOR 90 DAYS THEN 1ML ONCE EVERY 30 DAYS 30 mL 2 12/24/2023 Active Completed/Discontinued Medications MedicationDrug Class(es)DatesSig (Normalized)Sig (Original)Acetyl-L Carnitine 500mg (Pure Encapulations) (20 sources)Start: 08-03-2022 End: 07-24-0472Vjzsxz-L Carnitine 500mg (Pure Encapulations) Take 2 capsules daily in divided doses between meals.90 capsule 1 08/03/2022 10/09/2022 DiscontinuedStart: 00-22-4105Cjjakl-L Carnitine 500mg (Pure Encapulations) Take 2 capsules daily in divided doses between meals.90 capsule 1 08/03/2022 Active Comment on above:Take 2 capsules daily in divided doses between meals.albuterol 0.83 mg/ml inhalation solution (20 sources)beta2-Adrenergic AgonistStart: 03-12-2020 End: 19-27-3298kfxb 2.5 mg by inhalation every six hoursAlbuterol Sulfate 2.5 mg /3 mL (0.083 %) solution for nebulization Discontinued 2.5 MG INHALATION Q6H March 12, 2020 12:00am September 13, 2022 1:06pmStart: 03-12-2020 End: 97-79-4065Wxtawvtny Sulfate 90 mcg/actuation HFA aerosol inhaler Discontinued 2 INH INHALATION Q4H March 12, 2020 12:00am September 13, 2022 1:06pmALPRAZolam 0.5 mg oral tablet (20 sources)BenzodiazepineStart: 72-48-5973OORYVJjwra (Xanax) 0.5 MG tablet Take 0.5 mg by mouth 06/30/2024 ActiveStart: 01-29-2024 End: 68-07-4903gxob 1 tablet by mouth once daily as neededAlprazolam 0.5 mg tablet Discontinued 0.5 MG PO Daily as needed for anxiety 10 10 0 March 31, 2024 9:25am June 03, 2024 1:58pm Anxiety Anxiety disorder, unspecified 1 tablet as needed for severe panic attack Orally once a dayStart: 03-30-2023 End: 21-09-6850ikeb 1 tablet by mouth once daily as neededAlprazolam 0.5 mg tablet Discontinued 0.5 MG PO Daily as needed March 30, 2023 12:00am April 03, 2023 8:45am FreeTextSi tablet as needed for severe panic attack Orally once a day; Note:Source Status: Taking; Refills: 0; Qty: 14 Tablet; Provider: Kerrie Piña MStart: 77-73-8040gujw 1 tablet by mouth once daily as neededALPRAZolam 0.5 MG 1 tablet as needed for severe panic attack Orally once a day for 14 days Dec, ActiveStart: 03-12-2020 End: 25-52-6637rxwh 1 tablet by mouth three times dailyAlprazolam 0.5 mg tablet Discontinued 0.5 MG PO Three times daily March 12, 2020 12:00am 2022 7:11pmamoxicillin 875 mg oral tablet (14 sources)Penicillin-class AntibacterialStart: 08-27-2024 End: 76-65-2711hczk 1 tablet by mouth twice dailyAmoxicillin 875 mg tablet Discontinued 875 MG PO Twice daily 10 5 0 August 26, 2024 11:00pm September 25, 2024 7:31amamoxicillin 875 mg / clavulanate 125 mg oral tablet (20 sources)Penicillin-class AntibacterialStart: 10-29-2024 End: 88-47-9736rshh 1 tablet by mouth every twelve hoursAmoxicillin-Pot Clavulanate 875-125 mg tablet Discontinued 1 TAB PO Q12H 14 7 0 October 29, 2024 8:47am November 20, 2024 8:15amStart: 04-19-2023 End: 08-44-4153vqwe 1 tablet by mouth every twelve hoursAmoxicillin-Pot Clavulanate 875-125 mg tablet Discontinued 1 TAB PO Q12H 20 10 0 April 19, 2023 12:00am May 08, 2023 9:08amStart: 10-26-2089vzza 1 tablet by mouth every twelve hoursAmoxicillin-Pot Clavulanate 875-125 MG 1 tablet Orally every 12 hrs for 10 day(s) May, ActiveStart: 04-07-2017 End: 33-14-7160asmg 1 tablet by mouth twice dailyAmoxicillin-Pot Clavulanate 875-125 mg tablet Discontinued 1 TAB PO Twice daily April 07, 201712:00am April 20, 2017 8:46pmAugmentin Activeascorbic acid 1000 mg oral tablet (20 sources)Vitamin CStart: 03-12-2020 End: 40-68-5628bwui 1 g by mouth once dailyAscorbic Acid (Vitamin C) (Vitamin C) 1,000 mg Tablet Discontinued 1 GM PO Daily March 12946425:00am September 13, 2022 1:06pmazithromycin 250 mg oral tablet (20 sources)Macrolide AntimicrobialStart: 01-11-2024 End: 98-58-5138Bthcnqbhxtty 250 mg tablet Discontinued 0 PO .COMPLEX 6 5 0 January 11, 2024 12:00am January 28, 2024 8:27am For 250 mg dose pack: take 500 mg today (day 1), then 250 mg for 4 days (days 2-5) POStart: 09-21-2023 End: 62-29-4752Blkrjwpztaae (Zithromax Z-Nicholas) 250 mg tablet Discontinued 0 PO .COMPLEX 6 5 0 September 20, 2023 11:00pm October 09, 2023 8:13am For 250 mg dose pack: take 500 mg today (day 1), then 250 mg for 4 days(days 2-5) POStart: 41-71-8290Rjyrgtkioknr 250 MG 2 tablet on the first day, then 1 tablet daily for 4 days Orally Once a day for5 day(s) Feb, ActiveStart: 09-08-2011 Zithromax Z-Nicholas 250 MG 2 tablet on the first day, then 1 tablet daily for 4 days Orally Once a day for 5 day(s) Aug, ActiveStart: 57-79-5382Xohzdky Lumbrokinase (Monitise) (20 sources)Start: 08-03-2022 End: 34-87-9894Yuekyan Lumbrokinase (Monitise) Take 1 capsule 3 times daily, 30 minutes before eachmeal. 0 08/03/2022 10/09/2022 Discontinued Start: 42-38-5729Oenfyyx Lumbrokinase (Monitise) Take 1 capsule 3 times daily, 30 minutes before eachmeal. 0 08/03/2022 ActiveComment on above: Take 1 capsule 3 times daily, 30 minutes before each meal.cefdinir 300 mg oral capsule (14 sources)Cephalosporin AntibacterialStart: 11-05-2024 End: 28-54-0784wwff 1 capsule by mouth every twelve hoursCefdinir 300 mg capsule Discontinued 300 MG PO Every 12 hours November 04, 2024 11:00pm O ctober 2024 8:15amStart: 81-98-9924uppg 1 capsule by mouth every twelve hoursCefdinir 300 MG 1 cap Orally every 12 hrs for 10 days Mar, Not-TakingCellulose (20 sources)Start: 12-07-2023 End: 34-85-0444Opnbasomg (Bulk) powder Discontinued EACH MISCELLANE December 07, 2023 12:00am December 11, 2023 9:05amStart: 12-07-2023 End: 36-93-5703Mawxsefri (Bulk) powder Discontinued EACH MISCELLANE December 06, 2023 11:00pm December 11, 2023 8:05amStart: 12-07-2023 End: 06-34-6988Bxkttjuua (Bulk) Discontinued EACH MISCELLANE December 07, 2023 12:00am December 11, 2023 9:05amcephalexin 500 mg oral capsule (20 sources)Cephalosporin AntibacterialStart: 05-01-2020 End: 13-08-9347eaou 1 capsule by mouth every eight hoursCephalexin 500 mg Capsule Discontinued 500 MG PO Q8H 21 7 0 April 30, 2020 11:00pm September 13, 2022 1:06pmStart: 03-02-2018 End: 34-19-2576wjym 1 capsule by mouth three times dailyCephalexin (Keflex) 500 mg Capsule Discontinued 500 MG PO Three times daily March 02, 2018 12:00am March 25, 2018 2:08pmStart: 04-07-2017 End: 49-49-7233ioba 1 capsule by mouth four times dailyCephalexin 500 mg capsule Discontinued 500 MG PO Four times daily April 07, 2017 12:00am 2017 8:46pmComment on above:Take 500 mg by mouth every 8 hours.clindamycin 300 mg oral capsule (9 sources)Lincosamide AntibacterialStart: 63-92-2644mxma 1 capsule by mouth every twelve hoursClindamycin HCl 300 MG 1 capsule Orally every 12 hrs for 10 day(s) Mar, Not-TakingCyanocobalamin (Vitamin B-12) 1,000 mcg/mL solution (10 sources)Start: 12-11-2023 End: 08-19-6542wijapf 1000 ug by intramuscular injection every week Cyanocobalamin (Vitamin B-12) 1,000 mcg/mL solution Discontinued 1000 MCG IM every week December 11, 2023 12:00am January 28, 2024 9:29amStart: 12-11-2023 End: 56-42-1114ngrvvr 1000 ug by intramuscular injection every week Cyanocobalamin (Vitamin B-12) 1,000 mcg/mL solution Discontinued 1000 MCG IM every week December 10, 2023 11:00pm January 28, 2024 8:29amcyclobenzaprine hydrochloride 10 mg oral tablet (20 sources)Muscle RelaxantStart: 02-17-2018 End: 41-01-6634uxxl 1 tablet by mouth three times daily as needed for muscle spasmsCyclobenzaprine 10 mg tablet Discontinued 10 MG PO Three times daily as needed for muscle spasm 14 0 February 17, 2018 12:00am March 02, 2018 9:35am dexamethasone 6 mg oral tablet (20 sources)CorticosteroidStart: 03-12-2020 End: 98-97-1902sxwf 1 tablet by mouth once dailyDexamethasone 6 mg tablet Discontinued 6 MG PO Daily 7 0 March 12, 2020 12:00am September 13, 2022 1:06pmdoxycycline hyclate 100 mg oral tablet (9 sources)Tetracycline-class DrugStart: 23-34-4217hzcp 1 tablet by mouth every twelve hoursDoxycycline Hyclate 100 MG 1 tablet Orally Twice a day for 10 day(s) Aug, Not-Takingfluticasone propionate 0.05 mg/actuat metered dose nasal spray (20 sources)CorticosteroidStart: 03-31-2024 End: 55-48-0262Tniiucddltp Propionate 50 mcg/actuation spray,suspension Discontinued 1 SPRAY INTRANASAL Daily as needed September 25, 2024 7:31am October 23, 2024 2:11pmStart: 03-14-2024 End: 45-24-5437qysm 1 spray(s) nasal route once dailyFluticasone Propionate 50 mcg/actuation spray,suspension Discontinued 0 .ROUTE .COMPLEX 16 0 March 14, 2024 7:54am March 31, 2024 8:15am INSTILL 1 SPRAY INTO EACH NOSTRIL DAILY Start: 01-11-2024 End: 57-11-5285ockr 1 spray(s) nasal route once dailyFluticasone Propionate (Flonase Allergy Relief) 50 mcg/actuation spray,suspension Discontinued 1 SPRAY INTRANASAL Daily 16 0 January 11, 2024 12:00am March 14, 2024 7:54am administer into eachnostrilStart: 03-30-2023 End: 36-71-6273wbzz 2 spray(s) nasal route once dailyFluticasone Propionate 50 mcg/actuation spray,suspension Discontinued 2 SPRAY INTRANASAL Daily March 30, 2023 12:00am July 20, 2023 8:36am FreeTextSi spray in each nostril Nasally Once a day; Note: Source Status: Taking; Refills: 5; Provider: Kerrie Piña MStart: 03-02-2018 End: 02-12-2653Zklprfuukpp Propionate (Flonase Allergy Relief) 50 mcg/actuation [place],Suspension Discontinued 1 SPRAY INTRANASAL daily March 02, 2018 12:00am September 13, 2022 7:11pmtake 2 spray(s) nasal route once dailyFluticasone Propionate 50 MCG/ACT 2 spray in each nostril Nasally Once a day for 30 day(s) Activetake 2 spray(s) nasal route once dailyFluticasone Propionate 50 MCG/ACT 2 spray in each nostril Nasally Once a day for 30 day(s) ActiveComment on above: Use 2 Sprays in each nostril once daily.Gelatin Capsules (Empty) (Capsule #3) capsule (20 sources)Start: 12-07-2023 End: 61-70-1513Ysvxbef Capsules (Empty) (Capsule #3) capsule Discontinued CAP PO December 06, 2023 11:00pm December 11, 2023 8:05amStart: 12-07-2023 End: 10-30-5359Plrwtch Capsules (Empty) (Capsule #3) capsule Discontinued CAP PO December 07, 2023 12:00am December 11, 2023 9:05amhydrOXYzine hydrochloride 10 mg oral tablet (20 sources)AntihistamineStart: 49-86-3892jmnd 1 tablet by mouth every eight hours as neededhydrOXYzine HCL (Atarax) 25 mg tablet Take 1 tablet (25 mg) by mouth every 8 hours if needed. 04/03/2023 ActiveStart: 03-30-2023 End: 13-57-9901ginb 1 tablet by mouth three times daily as neededHydroxyzine Hcl 25 mg tablet Discontinued 25 MG PO April 03, 2023 8:47am December 11, 2023 8:07am FreeTextSi tablet as needed orally three times daily prn; Note: Source Status: Refill; Refills: 3; Provider: Kerrie Piña MStart: 10-11-2022 End: 05-17-0950gfze 1 tablet by mouth three times daily as neededHydroxyzine Hcl 10 mg tablet Discontinued 10 MG PO Three times daily as needed July 19, 2023 11:00pm January 28, 2024 8:28amStart: 09-13-2022 End: 20-52-4940ufcl 1 tablet by mouth once dailyHydroxyzine Hcl 10 mg tablet Discontinued 10 MG PO Daily September 12, 2022 11:00pm March 30, 2023 1:00pm Start: 08-22-2022 End: 12-86-0867btlu 1 tablet by mouth every eight hours as neededhydrOXYzine HCl (ATARAX) 10 mg tablet Take 1 tablet by mouth three times daily as needed. 90 tablet3 08/22/2022 10/09/2022 DiscontinuedStart: 06-01-2021 End: 11-91-1318qvie 1 tablet by mouth every eight hours as neededhydrOXYzine HCl (ATARAX) 10 mg tablet Take 1 tablet by mouth three times daily as needed. 90 tablet3 08/22/2022 ActiveStart: 07-10-2017 End: 21-28-1946btew 1 tablet by mouth every six hours as needed for anxiety Hydroxyzine Hcl 25 mg tablet Discontinued 25 MG PO Q6H as needed for anxiety 30 0 July 09, 2017 11:00pm February 17, 2018 10:32amStart: 04-20-2017 End: 91-16-1880qeve 1 tablet by mouth every eight hours as needed for anxiety Hydroxyzine Hcl 25 mg tablet Discontinued 25 MG PO Q8H as needed for anxiety 20 0 April 20, 2017 12:00am July 10, 2017 12:57pmtake 1 tablet by mouth three times daily as neededhydrOXYzine HCl 25 MG 1 tablet as needed orally three times daily prn for 30 days ActivehydrOXYzine HCl ActiveComment on above:Take 1 tablet by mouth three times daily as needed.ivabradine 5 mg oral tablet (20 sources)Hyperpolarization-activated Cyclic Nucleotide-gated Channel Yariel Start: 03-10-2021 End: 05-02-4656xrux 2.5 mg by mouth twice dailyivabradine (CORLANOR) 5 mg tablet Take 2.5 mg by mouth twice daily. 90 tablet 2 03/10/2021 08/29/2021 Discontinued take 0.5 tablet by mouth twice dailyIvabradine HCl 5 MG 1/2 tab Orally Twice a day ActiveComment on above:Take 2.5 mg by mouth twice daily.24 hr loratadine 10 mg / pseudoephedrine sulfate 240 mg extended release oral tablet (20 sources)alpha-Adrenergic AgonistStart: 02-17-2018 End: 85-47-6347sdut 1 tablet by mouth once daily as needed, then take 1 tablet by mouth every twenty-four hours asneededLoratadine-Pseudoephedrine (Loratadine- D) 10-240 mg tablet extended release 24 hr Discontinued 1 TAB PO Daily as needed for sinus symptoms 10 February 17, 2018 12:00am March 02, 2018 9:36am24 hr metFORMIN hydrochloride 500 mg extended release oral tablet (20 sources)BiguanideStart: 06-12-2024 End: 48-48-1550icmz 1 tablet by mouth once dailyMetformin 500 mg tablet extended release 24 hr Discontinued 500 MG PO Daily 30 30 1 June 11, 2024 11:00pm June 24, 2024 10:01am Class 1 obesity Body mass index (BMI) of 30.0 to 30.9 in adult Obsessive-compulsive disorder Postural orthostatic tachycardia syndrome Posttraumatic stress disorder Depression Anxiety Obesity, class 1 Body mass index [BMI] 30.0-30.9, adult Obsessive-compulsive disorder, unspecified Postural orthostatic tachycardia syndrome [POTS] Post-traumatic stress disorder, unsp ecified Depression, unspecified Anxiety disorder, unspecifiedmethylPREDNISolone 4 mg oral tablet (20 sources)CorticosteroidStart: 10-21-2024 End: 28-32-0163rsse 1 tablet by mouth onceMethylprednisolone (Medrol (Nicholas)) 4 mg tablets,dose pack Discontinued 0 PO per package directions 21 0 October 20, 2024 11:00pm November 05, 2024 11:32am PO PER PKG DIR for 6 daysStart: 09-26-2024 End: 93-16-5853emkl 1 tablet by mouth onceMethylprednisolone (Medrol (Nicholas)) 4 mg tablets,dose pack Discontinued 0 PO per package directions 21 6 0 September 25, 2024 11:00pm October 09, 2024 10:30am PO PER PKG DIR for 6 daysStart: 93-55-9473zzeslmHWFZTDWezdlg (Medrol Dospak) 4 MG tablets TAKE 6 TABLETS ON DAY 1 DIRECTED ON PACKAGE AND DECREASE BY 1 TAB EACH DAY FOR A TOTAL OF 6 DAYS 07/13/2024 ActiveStart: 07-13-2024 End: 00-15-5639buwg 1 tablet by mouth onceMethylprednisolone (Medrol (Nicholas)) 4 mg tablets,dose pack Discontinued 0 PO per package directions 21 0 July 12, 2024 11:00pm July 28, 2024 8:11am PO PER PKG DIR for 6 daysStart: 11-26-2022 methylPREDNISolone 4 MG as directed Orally for daily dose take half with breakfast, half with dinner for 6 days Nov, ActiveStart: 05-17-2022 End: 74-96-2627cqvejsQMITCDGxwncs (MEDROL, NICHOLAS,) 4 mg Dose-Pack As instructed per package 1 tablet 0 05/17/2022 05/23/2022 ExpiredStart: 05-17-2022 End: 85-96-3408kunsjeYGPFNGFtgwnd (MEDROL, NICHOLAS,) 4 mg Dose-Pack As instructed per package 1 tablet 0 05/17/2022 05/23/2022 ActiveComment on above:As instructed per packagemodafinil 100 mg oral tablet (20 sources)Sympathomimetic-like AgentStart: 04-03-2022 End: 64-73-4724cocx 1 tablet by mouth once dailymodafinil (PROVIGIL) 100 mg tablet Indications: Post-COVID syndrome , Excessive daytime sleepiness Take 1 tablet by mouth once daily for 30 days. 30 tablet 0 04/03/2022 05/08/2022 Discontinued (Side Effects)Comment on above:Take 1 tablet by mouth once daily for 30 days.Naltrexone (20 sources)Opioid AntagonistStart: 06-19-2024 End: 19-03-0607cjht 1 mg by mouth at bedtimeNaltrexone (Naltrex) 1.5 mg capsule Discontinued 1 MG PO .at HS June 19, 2024 7:35am September 25, 2024 7:33am 1 mg at HSStart: 06-19-2024 End: 49-05-7824ediz 1 mg by mouth at bedtimeNaltrexone (Naltrex) 1.5 mg capsule Discontinued 1 MG PO .at HS June 19, 2024 8:35am September 25, 2024 8:33am 1 mg at HSStart: 83-31-1734qkml 1 mg by mouth at bedtimeStart: 34-78-8185zhlq 1 mg by mouth at bedtimeNaltrexone (Naltrex) 1.5 mg capsule Active 1 MG PO .at HS June 19, 2024 8:35am 1 mg at HSStart: 12-11-2023 End: 26-05-9856cjfs 1 mg by mouth at bedtimeNaltrexone (Naltrex) 1.5 mg capsule Discontinued 2 MG PO .at HS December 11, 2023 8:06am June 19, 2024 7:36am 1 mg at HSStart: 12-11-2023 End: 48-07-3595cmtm 1 mg by mouth at bedtimeNaltrexone (Naltrex) 1.5 mg capsule Discontinued 2 MG PO .at HS December 11, 2023 9:06am June 19, 2024 8:36am 1 mg at HSStart: 11-48-6724dbtt 1 mg by mouth at bedtimeNaltrexone (Naltrex) 1.5 mg capsule Active 2 MG PO .at December 11, 2023 8:06am 1 mg at HSStart: 41-97-3936sevo 1 mg by mouth at bedtimeNaltrexone (Naltrex) 1.5 mg capsule Active 2 MG PO .at HS December 11, 2023 9:06am 1 mg at HSStart: 10-09-2023 End: 30-72-1622ljxd 1 capsule by mouth at bedtimeNaltrexone (Naltrex) 1.5 mg capsule Discontinued 2 MG PO .at October 09, 2023 8:14am December 11, 2023 8:07amStart: 10-09-2023 End: 11-22-1455tpfi 1 capsule by mouth at bedtimeNaltrexone (Naltrex) 1.5 mg capsule Discontinued 2 MG PO .at HS October 09, 2023 9:14am December 11, 2023 9:07amStart: 78-00-3151ldfg 1 capsule by mouth at bedtimeNaltrexone (Naltrex) 1.5 mg capsule Active 2 MG PO .at HS October 09, 2023 9:14amStart: 07-20-2023 End: 62-36-3695uliu 1 mg by mouth at bedtimeNaltrexone (Naltrex) 1.5 mg capsule Discontinued 0.5 MG PO .at July 20, 2023 8:49am October 09, 2023 8:15am 1 mg at HSStart: 07-20-2023 End: 99-02-0961djjk 1 mg by mouth at bedtimeNaltrexone (Naltrex) 1.5 mg capsule Discontinued 0.5 MG PO .at HS July 20, 2023 9:49am October 09, 2023 9:15am 1 mg at HSStart: 05-46-7016tkuq 1 mg by mouth at bedtimeNaltrexone (Naltrex) 1.5 mg capsule Active 0.5 MG PO .at HS July 20, 2023 9:49am 1 mg at HSStart: 04-03-2023 End: 26-40-8712qlbs 0.5 mg by mouth at bedtimeNaltrexone (Naltrex) 1.5 mg capsule Discontinued 0.5 MG PO .at April 03, 2023 12:00am July 20, 2023 8:49am 0.5 mg at HSStart: 04-03-2023 End: 91-28-6701fjix 0.5 mg by mouth at bedtimeNaltrexone (Naltrex) 1.5 mg capsule Discontinued 0.5 MG PO .at HS April 03, 2023 1:00am July 20, 2023 9:49am 0.5 mg at HSStart: 71-08-8190objx 0.5 mg by mouth at bedtimeNaltrexone (Naltrex) 1.5 mg capsule Active 0.5 MG PO .at HS April 03, 2023 1:00am 0.5 mg at HSStart: 13-87-2258huts 0.5 mg by mouth at bedtimeNaltrexone (Naltrex) 1.5 mg capsule Active 0.5 MG PO .at April 03, 2023 12:00am 0.5 mg at HStake 1 tablet by mouth once daily at bedtimenaltrexone HCl (NALTREXONE ORAL) Take 1 tablet by mouth once daily at bedtime. 1 MG Activetake 0.75 mg by mouth once dailynaltrexone HCl (NALTREXONE ORAL) Take 0.75 mg by mouth once daily. Active take 0.75 mg by mouth once dailynaltrexone HCl (NALTREXONE ORAL) Take 0.75 mg by mouth once daily. 0 Activeperflutren lipid microspheres 1.3 mL in NaCl (PF) 0.9% 10 mL injection ([employer]) (20 sources)Start: 11-11-2020 End: 99-24-8288mvacrzihyt lipid microspheres 1.3 mL in NaCl (PF) 0.9% 10 mL injection (DEFINITY)predniSONE 20 mg oral tablet (20 sources)Start: 08-27-2024 End: 22-19-0411hden 2 tablets by mouth once dailyPrednisone 20 mg tablet Discontinued 40 MG PO Daily 10 5 0 August 26, 2024 11:00pm September 25, 2024 7:34amStart: 05-19-2024 End: 39-27-6850fncb 2 tablets by mouth once dailyPrednisone 20 mg tablet Discontinued 40 MG PO daily 10 5 0 May 18, 2024 11:00pm May 31, 2024 8:11amStart: 03-28-2024 End: 85-28-6985wrrw 1 tablet by mouth twice dailyPrednisone 20 mg tablet Discontinued 20 MG PO Twice daily 10 5 0 March 28, 2024 12:00am May 31, 2024 8:11amStart: 07-20-2023 End: 64-59-6217zean 3 tablets by mouth once daily, then take 2 tablets by mouth once daily, then take 1 tablet by mouth once daily at mealtimePrednisone 20 mg tablet Discontinued 0 PO daily 18 9 0 July 19, 2023 11:00pm October 09, 2023 8:15am 3 p.o. daily x 3 days, 2 p.o. daily x 3 days, 1 p.o. daily x 3 days -with foodStart: 98-55-8631ieey 1 tablet by mouth every twelve hoursprednisone 20 MG 1 tablet Orally BID for 5 Feb, ActiveStart: 53-00-1069cslg 3 tablets by mouth every twenty-four hourspredniSONE 20 MG 3 tablet with food Orally Once a day for 5 days Aug, Activepromethazine hydrochloride 25 mg oral tablet (20 sources)PhenothiazineStart: 02-21-2024 End: 13-70-1622oxmi 1 tablet by mouth every six hours as needed for nausea and vomitingPromethazine 25 mg tablet Discontinued 25 MG PO Q6H as needed for nausea and vomiting 28 7 0 May 30, 2024 7:14am May 31, 2024 8:11amStart: 90-03-6700iosv 25 mg rectal route every six hours as needed for nauseaPhenergan 25 mg Supp 25 mg = 1 supp, Rectal, q6hr, PRN Nausea/Vomiting, # 6 EA, Refills(s) 0, Pharmacy: [facility]/pharmacy #[id number], 164, cm, 02/17/24 2:04:00 EST, Height/Length Dosing, 82.5, kg, 02/17/24 2:04:00 EST, Weight Dosing Start Date: 02/17/24 Status: Ordered Quantity: 6.0 Unit: EA Repeat number: 1Start: 04-06-2019 End: 55-72-4599fqyy 1 tablet by mouth every six hours as needed for nausea and vomitingPromethazine 25 mg tablet Discontinued 25 MG PO Q6H as needed for nausea and vomiting 10 0 2019 12:00am March 12, 2020 5:11pmStart: 04-07-2017 End: 49-80-3012jskx 1 tablet by mouth every six hours as needed for nausea Promethazine 25 mg Tablet Discontinued 25 MG PO Q6H as needed for Nausea 12 0 April 07, 2017 12:00am April 20, 2017 8:46pmPure PC 4 oz. ([employer] (20 sources)Start: 04-20-2022 End: 80-30-3261Beit PC 4 oz. ([employer]) Take 1 teaspoonful (5ml) directly by mouth 1 to 3 times daily. Hold in mouth 30-60 seconds and swallow. 0 04/20/2022 06/19/2022 DiscontinuedStart: 26-71-7293Sjce PC 4 oz. ([employer] Take 1 teaspoonful (5ml) directly by mouth 1 to 3 times daily. Hold in mouth 30-60 seconds and swallow. 0 04/20/2022 ActiveComment on above:Take 1 teaspoonful (5ml) directly by mouth 1 to 3 times daily. Hold in mouth 30-60 seconds and swallow.Semaglutide (Weight Loss) (20 sources)Start: 01-28-2024 End: 24-88-0095Jvmnntpcllc (Weight Loss) 0.25 mg/0.5 mL pen injector Discontinued 0.25 MG SUBCUT every week January 28, 2024 1:00am March 28, 2024 11:08am administer weeks 1 through 4 of therapyStart: 01-28-2024 End: 60-75-3869Oqupefdqjrq (Weight Loss) 0.25 mg/0.5 mL pen injector Discontinued 0.25 MG SUBCUT every week January 28, 2024 12:00am March 28, 2024 10:08am administer weeks 1 through 4 of therapyStart: 01-28-2024 Semaglutide (Weight Loss) 0.25 mg/0.5 mL pen injector Active 0.25 MG SUBCUT every week January 28, 2024 12:00am administer weeks 1 through 4 of therapy sertraline 25 mg oral tablet (20 sources)Serotonin Reuptake InhibitorStart: 03-12-2020 End: 74-67-3790cnjl 1 tablet by mouth once dailySertraline 25 mg tablet Discontinued 25 MG PO Daily March 12, 2020 12:00am September 13, 2022 7:12pm SPM Active ([employer]ics) (20 sources)Start: 04-20-2022 End: 55-79-3612JST Active ([employer]ics) Take 2 softgels daily as directed. 0 04/20/2022 06/19/2022 DiscontinuedStart: 95-76-9130YOC Active ([employer]) Take 2 softgels daily as directed. 0 04/20/2022 ActiveComment on above:Take 2 softgels daily as directed.Tirzepatide (Weight Loss) (20 sources)Start: 10-23-2024 End: 98-36-7060uzipvk 18 [IU] by subcutaneous injection every weekTirzepatide (Weight Loss) 2.5 mg/0.5 mL pen injector Discontinued 17 MG SUBCUT every week 2024 1:33pm November 20, 2024 8:20am 18 units once weekly (compound from online per patient)Start: 10-23-2024 End: 29-31-3318fmbkxi 18 [IU] by subcutaneous injection every weekTirzepatide (Weight Loss) 2.5 mg/0.5 mL pen injector Discontinued 17 MG SUBCUT every week 2024 2:33pm November 20, 2024 9:20am 18 units once weekly (compound from online per patient)Start: 59-92-5757lbsvim 18 [IU] by subcutaneous injection every weekTirzepatide (Weight Loss) 2.5 mg/0.5 mL pen injector Active 17 MG SUBCUT every week October 2:33pm 18 units once weekly (compound from online per patient) Complies with drug therapyStart: 10-09-2024 End: 73-11-0030jvxxfc 15 [IU] by subcutaneous injection every weekTirzepatide (Weight Loss) 2.5 mg/0.5 mL pen injector Discontinued 17 MG SUBCUT every week October 09, 2024 10:37am October 23, 2024 1:34pm 15 units once weekly (compound from online per patient)Start: 10-09-2024 End: 04-60-2583xjqqfr 15 [IU] by subcutaneous injection every weekTirzepatide (Weight Loss) 2.5 mg/0.5 mL pen injector Discontinued 17 MG SUBCUT every week October 09, 2024 11:37am October 23, 2024 2:34pm 15 units once weekly (compound from online per patient)Start: 05-70-0915vlianl 15 [IU] by subcutaneous injection every weekTirzepatide (Weight Loss) 2.5 mg/0.5 mL pen injector Active 17 MG SUBCUT every week October 09, 2024 11:37am 15 units once weekly (compound from online per patient) Complies with drug therapyStart: 10-09-2024 End: 50-19-3381Ppqqyujapak (Weight Loss) 2.5 mg/0.5 mL pen injector Discontinued 2.5 MG SUBCUT every week October 08, 2024 11:00pm October 09, 2024 10:39am Start: 10-09-2024 End: 49-94-5700Bzpwclyrawe (Weight Loss) 2.5 mg/0.5 mL pen injector Discontinued 2.5 MG SUBCUT every week October 09, 2024 12:00am October 09, 2024 11:39am Toradol 30 mg/ml (20 sources)Start: 18-08-1528Zxpdcaq 30 mg/ml Nov, 30 mgStart: 26-61-8496Royaxeh 30 mg/ml Feb, 60 mgtriamcinolone acetonide 10 mg/ml injectable suspension (20 sources)CorticosteroidStart: 10-02-2024 End: 08-97-5493pavpajkasfgsw acetonide (Kenalog) injection 10 mgStart: 10-02-2024 End: 93-78-672620 mg, Intra-lesional, Once, On Karlene 10/02/24 at 1000, For 1 dose Start: 52-74-6989Mrkglzl-40 15 Nov, 2022 40 mgVitamin B Complex (10 sources)Start: 03-12-2020 End: 73-46-8170jnlt 1 capsule by mouth once dailyVitamin B Complex Discontinued 1 CAP PO Daily March 12, 2020 12:00am September 13, 2022 7:12pmStart: 03-12-2020 End: 98-49-0886ztuq 1 capsule by mouth once dailyVitamin B Complex Discontinued 1 CAP PO Daily March 12, 2020 1:00am September 13, 2022 8:12pmStart: 39-04-0956bnqy 1 capsule by mouth once dailyVitamin B Complex Active 1 CAP PO Daily March 12, 2020 1:00amVitamin B Complex Capsule (20 sources)Start: 03-12-2020 End: 41-07-4779gvkj 1 capsule by mouth once dailyVitamin B Complex Capsule Discontinued 1 CAP PO Daily March 12, 2020 1:00am September 13, 2022 8:12pm Start: 03-12-2020 End: 37-44-8235heyi 1 capsule by mouth once dailyVitamin B Complex Capsule Discontinued 1 CAP PO Daily March 12, 2020 12:00am September 13, 2022 7:12pm Zinc (20 sources)Start: 03-12-2020 End: 22-72-3486uodr 1 tablet by mouth once dailyZinc 50 mg Tablet Discontinued 50 MG PO Daily March 12, 2020 1:00am September 13, 2022 8:12pmStart: 03-12-2020 End: 57-55-6059chwp 1 tablet by mouth once dailyZinc 50 mg Tablet Discontinued 50 MG PO Daily March 12, 2020 12:00am September 13, 2022 7:12pmStart: 03-12-2020 End: 98-66-7056xelw 50 mg by mouth once dailyZinc Discontinued 50 MG PO Daily March 12, 2020 12:00am September 13, 2022 7:12pmStart: 03-12-2020 End: 33-82-2384frna 50 mg by mouth once dailyZinc Discontinued 50 MG PO Daily March 12, 2020 1:00am September 13, 2022 8:12pmStart: 58-79-7743czpj 50 mg by mouth once dailyZinc Active 50 MG PO Daily March 12, 2020 1:00amzonisamide 25 mg oral capsule (20 sources)Anti-epileptic AgentStart: 07-10-2017 End: 1993nztd 1 capsule by mouth every twelve hoursZonisamide (Zonegran) 25 mg Capsule Discontinued 25 MG PO Q12H July 09, 2017 11:00pm July 10, 2017 5:30pm Problems Active Problems Problem ClassificationProblemDateDocumented DateEpisodic/ChronicAdjustment disorders (20 sources)Adjustment disorder with depressed mood; Translations: [Adjustment disorder with depressed mood]Onset: 05-31-2021 Resolved: 42-65-2034XpxprnlHesytyqfazbabh/social admission (20 sources)Patient encounter status; Translations: [Dietary counseling and surveillance]Onset: 28-43-4321OuskxrlfBdniazr disorders (20 sources)Mixed anxiety and depressive disorder; Translations: [Dysthymic disorder]Onset: 05-31-2021 Resolved: 12-91-9641LflrfttEfzrscf dysrhythmias (20 sources)Postural orthostatic tachycardia syndrome ; Translations: [Other specified cardiac dysrhythmias]Onset: 11-04-2020 Resolved: [id number] dysrhythmias (20 sources)Tachycardia; Translations: [Tachycardia, unspecified]Onset: 01-04-2021 Resolved: 95-52-8614XndignatCbzkxjb obstructive pulmonary disease and bronchiectasis (1 source)Bronchitis, not specified as acute or chronicEpisodicConditions associated with dizziness or vertigo (20 sources)Dizziness and giddiness; Translations: [Orthostatic hypotension] Onset: 01-12-2018 Resolved: 11-19-1449ObxnvkmeVoffqgetdg disorders (2 sources)Gastroesophageal reflux disease; Translations: [Gastro-esophageal reflux disease without esophagitis]Onset: [id number] of unknown origin (5 sources)Fever; Translations: [Fever, unspecified]30-78-0852Hmkykepc Genitourinary symptoms and ill-defined conditions (20 sources)Urgency of urination; Translations: [Frequency of micturition]Onset: 06-02-2021 Resolved: 22-37-4005DdsqtlyhOlrbjpmc; including migraine (20 sources)Tension-type headache; Translations: [Tension-type headache, unspecified, not intractable]Onset: [id number]; including migraine (20 sources)Tension-type headache; Translations: [Tension-type headache, unspecified, intractable]Onset: [id number] valve disorders (20 sources)Heart murmur; Translations: [Cardiac murmur, unspecified]Episodic Immunizations and screening for infectious disease (3 sources)Encounter for screening for other viral diseases; Translations: [Contact with and (suspected) exposure to other viral communicable diseases] Onset: 10-18-2020 Resolved: 94-95-0902NgfyyamdEjrapro and fatigue (20 sources)Chronic fatigue, unspecified; Translations: [Izda-WYCJB-60 syndrome manifesting as chronic fatigue]Onset: 082928-85-4371JdbslyqEzagqdz and fatigue (6 sources)Other malaise and fatigue; Translations: [Post-COVID chronic fatigue] Onset: 55-70-3888LjzcjtnaJvsbseuoifzpe mental health disorders (7 sources)Chronic insomnia; Translations: [Insomnia, unspecified]ChronicMood disorders (20 sources)Mood disorder; Translations: [Unspecified mood [affective] disorder] Onset: 09-13-2022 Resolved: 334068-07-9109PlrwjdySrvohqv (3 sources)Paiqmmf90-06-6870UqlpdhfxIwnfoo and vomiting (20 sources)Nausea, vomiting and diarrhea; Translations: [Nausea with vomiting, unspecified]Onset: 642242-22-4827EgqxxzsgFlclffzya of unspecified nature or uncertain behavior (2 sources)Neoplastic disease; Translations: [Neoplasm of unspecified behavior of bone, soft tissue, and skin]25-13-4731XgwkknesRqnozql system congenital anomalies (1 source)Disorder of autonomic nervous system; 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]]03-40-4531ThxrdtkPufgsdnwzvd chest pain (20 sources)Chest pain, unspecified; Translations: [Atypical chest pain]Onset: 01-04-2021 Resolved: 32-87-3337ZaqyagcdFluyalrkudz deficiencies (20 sources)Cobalamin deficiency; Translations: [Deficiency of other specified B group vitamins]Onset: 942614-71-2997CpmalxybPynsa aftercare (2 sources)Removal of sutures done; Translations: [Encounter for removal of sutures]57-01-6635GnzfwmrwYbhcd and ill-defined cerebrovascular disease (20 sources)Cerebrovascular disease; Translations: [Cerebrovascular disease, unspecified]Onset: 348173-57-2612WbfpxtaMavue and unspecified benign neoplasm (2 sources)Melanocytic nevi of other parts of face; Translations: [Benign neoplasm of skin of other and unspecified parts of face]98-33-8212TyoixopcEzhdn bone disease and musculoskeletal deformities (20 sources)Costal chondritis; Translations: [Chondrocostal junction syndrome [Tietze]]56-20-3355CdmqlznwYpvit circulatory disease (16 sources)Postural orthostatic tachycardia syndrome ; Translations: [Postural orthostatic tachycardia syndrome (POTS)]Onset: 038050-86-9725GlkyffuxAptcy connective tissue disease (2 sources)Pain in left thigh; Translations: [Pain in limb]84-38-5599Rfebnlpq Other connective tissue disease (1 source)Muscle weakness (generalized); Translations: [Muscle weakness (generalized)]Onset: 49-66-5531YxdobuloPvupq gastrointestinal disorders (1 source)Intestinal malabsorption; Translations: [Intestinal malabsorption, unspecified]71-46-2863AopfeshMqssn gastrointestinal disorders (1 source)Intestinal malabsorption, unspecified; Translations: [Intestinal malabsorption, unspecified type (HCC)]Onset: 48-02-2515TqgekhfBxzrp gastrointestinal disorders (1 source)Diarrhea; Translations: [Diarrhea, unspecified]Onset: 02-17-2024 EpisodicOther infections; including parasitic (20 sources)Late effects of other and unspecified infectious and parasitic diseases; Translations: [Long COVID]Onset: 996242-78-5499SujnsqyKlubo infections; including parasitic (20 sources)Post-viral disorder; Translations: [Sequelae of other specified infectious and parasitic diseases]ChronicOther infections; including parasitic (4 sources)Sequelae of other specified infectious and parasitic diseasesOnset: 12-01-2020 Resolved: 33-70-4940YgxfuqzHsaqf lower respiratory disease (20 sources)Dyspnea; Translations: [Shortness of breath]32-86-4841QmkfjvasVaxde lower respiratory disease (1 source)Snoring; Translations: [Snoring]EpisodicOther lower respiratory disease (1 source)Dyspnea on exertion; Translations: [Shortness of breath]EpisodicOther nervous system disorders (20 sources)Cognitive deficit in communication skills; Translations: [Cognitive communication deficit]Onset: 542648-84-8140UoifcjpBfngv nervous system disorders (5 sources)Anesthesia of skin; Translations: [ANESTHESIA OF SKIN]Onset: 02-61-7397CkryuwvsKxobi nervous system disorders (20 sources)Impaired cognition; Translations: [Other symptoms and signs involving cognitive functions and awareness]EpisodicOther nutritional; endocrine; and metabolic disorders (20 sources)Obese class I; Translations: [Obesity, unspecified]Onset: 01-24-2022 ChronicOther nutritional; endocrine; and metabolic disorders (20 sources)Body mass index 30+ - obesity; Translations: [Body mass index (BMI) 33.0-33.9, adult]81-14-5577DycodayGzpqe nutritional; endocrine; and metabolic disorders (3 sources)Body mass index (BMI) 32.0-32.9, adult; Translations: [Body Mass Index 32.0-32.9, adult]47-62-2574IbezmbdCrrvu nutritional; endocrine; and metabolic disorders (4 sources)Body mass index (BMI) 30.0-30.9, adult; Translations: [Body Mass Index 30.0-30.9, adult]42-34-3632FisnzcsObjnt nutritional; endocrine; and metabolic disorders (3 sources)Body mass index (BMI) 31.0-31.9, adult; Translations: [Body Mass Index 31.0-31.9, adult]44-76-2097SykfmurVkqpk nutritional; endocrine; and metabolic disorders (20 sources)Abnormal weight gain; Translations: [Abnormal weight gain]06-12-2024 EpisodicOther nutritional; endocrine; and metabolic disorders (4 sources)Abnormal weight gain; Translations: [Abnormal weight gain]06-12-2024 EpisodicOther nutritional; endocrine; and metabolic disorders (11 sources)Body mass index 25-29 - overweight; Translations: [Overweight] 97-65-8131ZomqqwecNmyxd nutritional; endocrine; and metabolic disorders (11 sources)Overweight in adulthood with body mass index of 25 or more but less than 30; Translations: [Body mass index (BMI) 28.0-28.9, adult]11-20-2024 EpisodicOther screening for suspected conditions (not mental disorders or infectious disease) (6 sources)Encounter for screening for malignant neoplasm of cervix; Translations: [Electrocardiogram abnormal]Onset: 29-89-8496QcebwgpiQsjmo skin disorders (8 sources)Acne vulgaris; Translations: [Acne vulgaris]00-07-5330NpscfpakVtjbf skin disorders (2 sources)Keloid scar; Translations: [Hypertrophic scar]95-49-5630PekjpfupEgtsj upper respiratory infections (20 sources)Sinusitis; Translations: [Chronic sinusitis, unspecified]Chronic Other upper respiratory infections (20 sources)Acute upper respiratory infection, unspecified; Translations: [Acute sinusitis]Onset: 11-24-2020 Resolved: 36-83-1231CeraexekUbbmdxzz codes; unclassified (20 sources)Difficulty sleeping ; Translations: [Sleep disorder, unspecified] Onset: 477969-83-9290XaifzktjHmycdmwe codes; unclassified (1 source)Appointment canceled by hospital; Translations: [Procedure and treatment not carried out for other reasons]90-85-3435VgkhfpjtLijlktpe codes; unclassified (1 source)Chills (without fever)EpisodicResidual codes; unclassified (1 source)Sleep disorder, unspecifiedEpisodicResidual codes; unclassified (2 sources)Pain; Translations: [Pain, unspecified]60-68-6733PankjctjSnaaerfkamk; intervertebral disc disorders; other back problems (6 sources)Cervicocranial syndrome; Translations: [Cervicocranial syndrome] EpisodicSprains and strains (18 sources)Thoracic back sprain; Translations: [Sprain of ligaments of thoracic spine, initial encounter]EpisodicSubstance-related disorders (3 sources)Bltcdb92-70-3672TmveuvjUzocfan on above:Added secondary to documentation in Social History.Suicide and intentional self-inflicted injury (6 sources)Suicidal thoughts; Translations: [Suicidal ideations]09-13-2022 EpisodicUnclassified (2 sources)DXOnset: 41-13-9119Ekzqofodgtsz (2 sources)NO SHOWUnclassified (3 sources)APPOINTMENT CANCELLEDUnclassified (3 sources)Post-acute 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)70-36-9108Gvcfemalmmcq (1 source)Myalgic encephalomyelitis/chronic fatigue syndrome; Translations: [Myalgic encephalomyelitis/chronic fatigue syndrome]Onset: 07-24-2024 Unclassified (2 sources)Hypermobile Gino-Danlos syndrome; 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]Onset: 84-06-3383Gqijsfkbkgqj (1 source)Post covid-19 condition, unspecified; Translations: [Post covid-19 condition, unspecified]Onset: 1993Ohlcxkhewhdk (1 source)Post-acute 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); Translations: [Post-acute 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)]Onset: 13-73-6100Zfesnxqegtxw (1 source)POTS (postural orthostatic tachycardia syndrome); Translations: [POTS (postural orthostatic tachycardia syndrome)]Onset: 37-42-6069Wqavvtsiprah (1 source)F42.8 - Other obsessive-compulsive disorder,F43.10 - Post-traumatic stress disorder, unspecified,F41.9 - Anxiety disorder, unspecified,F33.0 - Major depressive disorder, recurrent, mild,F39 - Unspecified mood [affective] disorder Urinary tract infections (20 sources)Acute cystitis with hematuria; Translations: [Urinary tract infectious disease]Onset: 11-11-2020 Resolved: 63-82-7424FsjkptjeEulex infection (20 sources)Disease caused by 2019-nCoV; Translations: [COVID-19]Onset: 02-10-2020 Resolved: 588500-25-5287Bqslfqre Past or Other Problems Problem ClassificationProblemDateDocumented DateEpisodic/ChronicOther ear and sense organ disorders (1 source)Other specified disorders of ear, bilateralOnset: 04-01-2021 Resolved: 13-76-6975PjpawctuBpxmh infections; including parasitic (20 sources)Personal history of other infectious and parasitic diseases; Translations: [Personal history of COVID-19]Onset: 350496-52-8234Yfgjpxwo Other nervous system disorders (20 sources)Facial paresthesia; Translations: [Paresthesia of skin]Onset: 035494-61-9323OeglcomzGhqef nervous system disorders (20 sources)Abnormal gait; Translations: [Unspecified abnormalities of gait and mobility]Onset: 09-26-2017 Resolved: 682998-72-7235UxsnknfcErjcp non-traumatic joint disorders (20 sources)Hypermobility of joint; Translations: [Joint derangement, unspecified]Onset: 04-07-2018 Resolved: 561343-43-6074BmrudegbElstv non-traumatic joint disorders (13 sources)Pain in right shoulder; Translations: [Pain in joint, shoulder region]Onset: 200393-26-7676OfwkezyeImizz upper respiratory disease (2 sources)Nasal congestion; Translations: [NASAL CONGESTION]Onset: 02-08-2022 EpisodicOtitis media and related conditions (1 source)Acute serous otitis media, recurrent, left earOnset: 01-10-2021 Resolved: 01-17-2316LtcmdajnEsgyxozc codes; unclassified (5 sources)Pain, unspecified; Translations: [PAIN UNSPECIFIED]Onset: 02-01-2022 EpisodicResidual codes; unclassified (20 sources)Activity intolerance; Translations: [Other general symptoms and signs]Onset: 901977-12-6607XmivigmvYohaocayi and history of mental health and substance abuse codes (20 sources)Personal history of nicotine dependence; Translations: [Other personal history of psychological trauma, not elsewhere classified]Onset: 07-11-2017 Resolved: 26-86-8461UunifmvsBbinmpfjtcxv (4 sources)Enlarged tonsils 474.11Onset: 02-08-2021 Resolved: 20-11-7612Gsmjyvmrmzfc (20 sources)Unclassified (2 sources)COVID-19 long hauler U09.9Unclassified (1 source)Chronic fatigue syndrome G93.32Unclassified (1 source)Contact with and (suspected) exposure to covid-19 Z20.822Unclassified (5 sources)Onset: 10-04-2023 Resolved: 725708-38-8992Sakmuevrwgwp (3 sources)None (qualifier value)49-30-1348Xtinzsxiibty (1 source)Myalgic encephalomyelitis/chronic fatigue syndrome; Translations: [Myalgic encephalomyelitis/chronic fatigue syndrome]Onset: 09-24-2024 Unclassified (1 source)Post covid-19 condition, unspecified; Translations: [Post covid-19 condition, unspecified]Onset: 05-13-5372Nphre infection (20 sources)COVID-19; Translations: [Disease caused by 2019-nCoV]Onset: 12-30-2020 Resolved: 12-30-2020 Results Test NameValueInterpretationReference RangeFacilityCNPNon 40-76-3164ODDN Telephone ([facility]) YOLANDA APARICIO ([id number]) 1995 F Date Time Provider Department 12/12/24 JUDY GAMEZ [facility] During your visit today, we recorded the following information about you: Judy Gamez PSYD 12/12/2024 3:04 PM Signed Can this pt please be added to my calendar for video visits: 9am 01/29 9:30am 03/03 9am 03/19 9:30am 04/07 9:30am 04/21 She does not need a call back, thanks! Allergies As of Date: 12/12/2024 Noted Allergy Reaction MODAFINIL 05/24/2022 1 - Mental Status Change AMOXICILLIN-POT CLAVULANATE 11/11/2020 14 - Other: See Comments Comments: extreme dizziness BACTRIM (SULFAMETHOXAZOLE-TRIMETH*11/23/2017 8 - GI Upset CEPHALEXIN 11/11/2020 16 - Unknown CIPROFLOXACIN 01/31/2020 16 - Unknown LEXAPRO (ESCITALOPRAM) 11/23/2017 8 - GI Upset ORANGE JUICE 11/23/2017 2 - Rash SERTRALINE 11/11/2020 1 - Mental Status Change 14 - Other: See Comments TRIMETHOPRIM 03/25/2018 14 - Other: See Comments Date Reviewed: 08/08/2024 Reviewed by: Rosey Cleaning MA - Fully Assessed Reason for Visit: Appointment [186] Prescriptions as of 12/15/[address]24 - [address] (PROTONIX) 40 mg tablet TAKE 1 TABLET BY MOUTH EVERY DAY - ALPRAZolam (XANAX) 0.5 mg tablet Take 0.5 mg by mouth. - cyanocobalamin 1,000 mcg/mL INJECT 1 ML INTRAMUSCULARLY ONCE EVERY DAY X7 DAYS,1 ML ONCE A WEEK X90 DAYS,1 ML ONCE EVERY 30 DAYS - naltrexone HCl (NALTREXONE ORAL) Take 0.75 mg by mouth once daily. - nitroglycerin sublingual (NITROQUICK) 0.3 mg SL tablet Dissolve 1 tablet under the tongue one time only for 1 dose. To be administered in Radiology for CTA exam - tiZANidine (ZANAFLEX) 4 mg tablet take 1 tablet by mouth everyday at bedtime - gabapentin (NEURONTIN) 100 mg capsule Take 2 capsules by mouth once daily. (taken with 300mg capsule) - gabapentin (NEURONTIN) 300 mg capsule 1 capsule at bedtime (taken with two 100 mg capsules) - hydrOXYzine HCl (ATARAX) 10 mg tablet Take 1 tablet by mouth three times daily as needed. - metoprolol tartrate, short acting, (LOPRESSOR) 25 mg tablet Take 25 mg by mouth twice daily. 12.5 mg in the morning and 25 mg in the evening - sodium chloride 1 g tab Take 2 g by mouth three times daily. 1 gram in morning and 1 gram in evening - fluticasone (FLONASE) 50 mcg/actuation nasal spray Use 2 Sprays in each nostril once daily. - acetaminophen (ACETAMINOPHEN EXTRA STRENGTH) 500 mg tablet Take 500 mg by mouth every 6 hours as needed for pain. - meclizine (ANTIVERT) 25 mg tab Take 50 mg by mouth three times daily as needed (TID PRN). As needed TID - ondansetron orally disintegrating (ZOFRAN ODT) 4 mg disintegrating tablet Take 4 mg by mouth every 6 hours as needed for nausea/vomiting. - ibuprofen (MOTRIN) 200 mg tablet Take 200 mg by mouth every 6 hours as needed for pain. - acetaminophen (TYLENOL) 500 mg tablet Take 500 mg by mouth as needed. Problem List As Of Date 12/12/2024 Noted Resolved COVID-19 [U07.1] 02/10/2020 10/25/2021 History of tobacco use [Z87.891] 07/11/2017 02/01/2021 Personal history of COVID-19 [Z86.16] 03/08/2020 Intractable tension-type headache [G44.201] 04/08/2018 Hypermobility of joint [M24.9] 04/07/2018 02/01/2021 Gait disturbance [R26.9] 09/26/2017 02/01/2021 Cerebrovascular disease [I67.9] 04/08/2018 Facial paresthesia [R20.2] 07/12/2017 POTS (postural orthostatic tachycardia syndrome*02/01/2021 Long COVID [U09.9] 02/01/2021 Cognitive communication deficit [R41.841] 02/10/2021 Mixed obsessional thoughts and acts [F42.2] 12/26/2021 PTSD (post-traumatic stress disorder) [F43.10] 12/26/2021 Obesity, Class I, BMI 30-34.9 [E66.811] 01/24/2022 Chronic fatigue syndrome [G93.32] 10/11/2022 Activity intolerance [R68.89] 11/23/2022 Impaired functional mobility, balance, gait, an*11/23/2022 Headache, unspecified [R51.9] 05/30/2023 Diagnosed: 05/30/2023 Mood disorder (HCC) [F39] 09/13/2022 06/28/2023 Diagnosed: 05/30/2023 Difficulty sleeping [G47.9] 05/30/2023 Diagnosed: 05/30/2023 Encounter Status:Closed by JUDY GAMEZ [facility]/24[facility] 20-43-2865Ixsbed-up [id number] Yolanda Aparicio 1995 F Date Provider Department Center 11/10/2024 287-ALYCE BELLE HVC CARD [facility] No family history on file Level of Service:56660 NC OFFICE/OUTPATIENT NEW MODERATE MDM 45 MINUTESNormal [facility] SystemInfluenza virus B Ag [Presence] in Upper respiratory specimen by Rapid immunoassayOrdered By: Jeannine Allen on 11-05-2024 FLUBV Ag IA.rapid Ql (Nph)NegativeCherrington HospitalNo Panel InformationOrdered By: Jeannine Allen on 13-28-4817Qexueurpc Type A (Rapid) NegativeCherrington HospitalPOC SARS CoV-2 AntigenNegativeCherrington HospitalNo Panel InformationOrdered By: Gaby Jordan on 25-09-8105VBQJFort Loud[facility], [place] aminotransferase [Enzymatic activity/volume] in Serum or PlasmaOrdered By: Misha Sy on 85-41-4628NIV [Catalytic activity/Vol]9 U/LNormal7-52C[facility] HospitalComment on above: Performed By: #### B12, TSH3, CBC, CMP, [id number] #### [facility] [address] [place] [address] USAAlbumin [Mass/volume] in Serum or Plasma by Bromocresol green (BCG) dye binding methoOrdered By: Misha Sy on 23-66-9090Kgbomue BCG dye [Mass/Vol]4.3 g/dL3.5-5.7FMetroHealth Parma Medical CenterAlkaline phosphatase [Enzymatic activity/volume] in Serum or PlasmaOrdered By: Misha Sy on 23-88-2346YJX [Catalytic activity/Vol]51 U/ZCcvhja09-116BmdnnbnxyCherrington HospitalComment on above:Performed By: #### B12, TSH3, CBC, CMP, [id number] #### [facility] [address] [place] [address] USAAspartate aminotransferase [Enzymatic activity/volume] in Serum or PlasmaOrdered By: Misha Sy on 49-71-2650QGL [Catalytic activity/Vol]12 U/AZkb87-98FvywvvgqmCherrington HospitalComment on above: Performed By: #### B12, TSH3, CBC, CMP, [id number] #### [place] [address] USABasophils [#/volume] in Blood by Automated countOrdered By: Misha Sy on 56-20-8358Oqrkcoupn (Bld) [#/Vol]0.0 10*3/uLNormal0.0-0.2 [facility] HospitalComment on above:Result Comment: PERFORMED BY: [place] [address] PATHOLOGIST [employer] INSPECTOR JONN CERVANTES M.D.Performed By: #### B12, TSH3, CBC, CMP, [id number] #### [place] [address] USABasophils/100 leukocytes in Blood by Automated count Ordered By: Misha Sy on 25-27-9061Bmutycjla/100 WBC (Bld)0.6 %Normal. [facility] HospitalComment on above:Performed By: #### B12, TSH3, CBC, CMP, [id number] #### [place] [address] USABilirubin.total [Mass/volume] in Serum or PlasmaOrdered By: Misha Sy on 29-38-9474Sxhktjeyp [Mass/Vol]0.4 mg/dLNormal0.3-1.0 [facility] HospitalComment on above:Performed By: #### B12, TSH3, CBC, CMP, [id number] #### [place] [id number] USACalcium [Mass/volume] in Serum or PlasmaOrdered By: Misha Sy on 99-07-3842Fsbufxz [Mass/Vol]9.2 mg/dLNormal8.6-10.3Fire[facility] Medical CenterComment on above:Performed By: #### B12, TSH3, CBC, CMP, [id number] #### [facility] [address] [place] [address] USACarbon dioxide, total [Moles/volume] in Serum or Plasma Ordered By: Misha Sy on 95-58-9002UE4 [Moles/Vol]27.8 mmol/DHbqvov25.0-31.0 [facility] HospitalComment on above:Performed By: #### B12, TSH3, CBC, CMP, [id number] #### [facility] [address] [place] [address] USAChloride [Moles/volume] in Serum or PlasmaOrdered By: Misha Sy on 17-77-2870Yqxbzirq [Moles/Vol]104 mmol/DMyywfl77-519VjnvpliyeCherrington HospitalComment on above:Performed By: #### B12, TSH3, CBC, CMP, [id number] #### [facility] [address] [place] [address] USAComplete Blood Count Auto Diffon 41-30-3628Dvvy Corpuscular HGB Conc33.8 g/qPMemcde12.0-35.0The [facility] Access Hospital Physician GroupComment on above:Performed By: #### B12, TSH3, CBC, CMP, [id number] #### [facility] [address] [place] [address] USANRBC%0.2 /100{WBC}Normal0-0.5[facility] Comment on above:Performed By: #### B12, TSH3, CBC, CMP, [id number] #### [facility] [address] [place] [address] USAWhite Blood Count7.8 [CFU]/mLNormal3.8-11.6The [facility] Access Hospital Physician GroupComment on above:Performed By: #### B12, TSH3, CBC, CMP, [id number] #### [facility] [address] [place] [address] USAComprehensive Metabolic Panelon 72-18-9938Larrwab [Mass/Vol]4.3 g/dLNormal3.5-5.7The [facility] Access Hospital Physician GroupComment on above: Performed By: #### B12, TSH3, CBC, CMP, [id number] #### [facility] [address] [place] [address] USAGFR/1.73 sq M.predicted MDRD (S/P/Bld) [Vol rate/Area] mL/min/{1.73_m2}NormalThe Critical Access Hospital Physician GroupComment on above:Performed By: #### B12, TSH3, CBC, CMP, [id number] #### [place] [address] USACreatinine [Mass/volume] in Serum or PlasmaOrdered By: Misha Sy on 74-27-5980Fotxivauaf [Mass/Vol]0.78 mg/dLNormal0.60-1.20 [facility] HospitalComment on above:Performed By: #### B12, TSH3, CBC, CMP, [id number] #### [place] [address] USAEosinophils [#/volume] in Blood by Automated countOrdered By: Misha Sy on 69-13-8103Airemdrtmpr (Bld) [#/Vol]0.3 10*3/uLNormal0.0-0.45 [facility] HospitalComment on above:Performed By: #### B12, TSH3, CBC, CMP, [id number] #### [place] [address] USAEosinophils/100 leukocytes in Blood by Automated count Ordered By: Misha Sy on 15-35-3468Lsvonovwuqo/100 WBC (Bld)3.4 %Normal. [facility] HospitalComment on above:Performed By: #### B12, TSH3, CBC, CMP, [id number] #### [place] [address] USAErythrocyte distribution width [Ratio] by Automated count Ordered By: Misha Sy on 53-49-7223Vkubdroirve distribution width (RBC) [Ratio]13.5 %Qwxmuc24.9-15.3FMetroHealth Parma Medical CenterComment on above: Performed By: #### B12, TSH3, CBC, CMP, [id number] #### [facility] [address] [place] [id number] USAErythrocytes [#/volume] in Blood by Automated countOrdered By: Misha Sy on 27-50-8734KGZ (Bld) [#/Vol]4.60 10*6/uLNormal3.60-5.00 [facility] HospitalComment on above:Performed By: #### B12, TSH3, CBC, CMP, [id number] #### [facility] [address] [place] [id number] USAGlucose [Mass/volume] in Serum or PlasmaOrdered By: Misha Sy on 16-94-7458Kloeucw [Mass/Vol]85 mg/mRJkiqom06-296AtszsdbdaCherrington HospitalComment on above:ADA recommended reference rangeRandom Glucose Reference Range is dependent on time and content of last meal. Glucose of more than 200 mg/dL in a nonstressed, ambulatory subject supports the diagnosisof Diabetes Mellitus.Result Comment: Random Glucose Reference Range is dependent on time and content of last meal. Glucose of more than 200 mg/dL in a nonstressed, ambulatory subject supports the diagnosis of Diabetes Mellitus. ADA recommended reference rangePerformed By: #### B12, TSH3, CBC, CMP, [id number] #### [facility] [address] [place] [id number] USAHematocrit [Volume Fraction] of Blood by Automated count Ordered By: Misha Sy on 04-15-1454Lqroiukmpm (Bld) [Volume fraction]37.8 % Fzthra93.0-46.4FMetroHealth Parma Medical CenterComment on above:Performed By: #### B12, TSH3, CBC, CMP, [id number] #### [facility] [address] [place] [id number] USAHemoglobin [Mass/volume] in BloodOrdered By: Misha Sy on 24-36-8852Casrzdcovv (Bld) [Mass/Vol]12.8 g/bAMywamh28.8-15.4FMetroHealth Parma Medical CenterComment on above:Performed By: #### B12, TSH3, CBC, CMP, [id number] #### [facility] [address] [place] [address] USALeukocytes [#/volume] corrected for nucleated erythrocytes in Blood by Automated counOrdered By: Misha Sy on 08-55-4372DCF corrected for nucl RBC Auto (Bld) [#/Vol]7.8 10*3/uL3.8-11.6FMetroHealth Parma Medical CenterLeukocytes [#/volume] in Blood by Automated countOrdered By: Misha Sy on 36-99-5448PVK (Bld) [#/Vol]7.8 10*3/uLNormal3.8-11.6FMetroHealth Parma Medical CenterComment on above:Performed By: #### B12, TSH3, CBC, CMP, [id number] #### [facility] [address] [place] [address] USALymphocytes [#/volume] in Blood by Automated countOrdered By: Misha Sy on 47-48-9184Qhemcjziocl (Bld) [#/Vol]2.1 10*3/uLNormal1.00-4.8 [facility] HospitalComment on above:Performed By: #### B12, TSH3, CBC, CMP, [id number] #### [facility] [address] [place] [address] USALymphocytes/100 leukocytes in Blood by Automated count Ordered By: Misah Sy on 41-19-9596Ukhfosxxhke/100 WBC (Bld)27.2 %Normal. [facility] HospitalComment on above:Performed By: #### B12, TSH3, CBC, CMP, [id number] #### [place] [address] USAMCH [Entitic mass] by Automated countOrdered By: Misha Sy on 89-09-8099NDQ (RBC) [Entitic mass]27.7 vbNupscd90.7-34.3FMetroHealth Parma Medical CenterComment on above:Performed By: #### B12, TSH3, CBC, CMP, [id number] #### [facility] [address] [place] [address] USAHC Auto (RBC) [Mass/Vol]Ordered By: Misha Sy on 62-39-9348MAHH (RBC) [Mass/Vol]33.8 g/dL32.0-35.0Cherrington HospitalMCV [Entitic volume] by Automated countOrdered By: Misha Sy on 34-04-6365JSP (RBC) [Entitic vol]82.1 sETgzzgh06-304GzizbpsacCherrington HospitalComment on above:Performed By: #### B12, TSH3, CBC, CMP, [id number] #### [place] [address] USAMonocytes [#/volume] in Blood by Automated countOrdered By: Misha Sy on 75-18-5423Puwixfndm (Bld) [#/Vol]0.6 10*3/uLNormal0.0-0.8 Cherrington HospitalComment on above:Performed By: #### B12, TSH3, CBC, CMP, [id number] #### [place] [address] USAMonocytes/100 leukocytes in Blood by Automated count Ordered By: Misha Sy on 85-89-0471Onfdwiypm/100 WBC (Bld)7.6 %Normal. Cherrington HospitalComment on above:Performed By: #### B12, TSH3, CBC, CMP, [id number] #### [facility] [address] [place] [address] USANeutrophils [#/volume] in Blood by Automated countOrdered By: Misha Sy on 78-35-5436Bnnpkeybzif (Bld) [#/Vol]4.8 10*3/uLNormal1.8-7.7 Cherrington HospitalComment on above:Performed By: #### B12, TSH3, CBC, CMP, [id number] #### [address] [place] [address] USANeutrophils/100 leukocytes in Blood by Automated count Ordered By: Misha Sy on 37-31-6832Fbjxhutmzbj/100 WBC (Bld)61.2 %Normal. Cherrington HospitalComment on above:Performed By: #### B12, TSH3, CBC, CMP, [id number] #### [facility] [address] [id number] USANo Panel InformationOrdered By: Misha Sy on 09-17-2024 Estimated GFR (CKD-EPI)> 60.0 mL/MinCherrington HospitalPharmacy Creatinine Clearance (ChemN/[facility] Berger HospitalNucleated erythrocytes [Presence] in Blood by Automated countOrdered By: Misha Sy on 77-21-5935Ypppsfvwe RBC Auto Ql (Bld)0.2 /100{WBC}0-0.5FMetroHealth Parma Medical CenterPlatelet mean volume [Entitic volume] in Blood by Automated count Ordered By: Misha Sy on 54-03-6658Ovjfxvlg mean volume (Bld) [Entitic vol] 8.4 fLNormal6.3-10.7FMetroHealth Parma Medical CenterComment on above:Performed By: #### B12, TSH3, CBC, CMP, [id number] #### [facility] [address] [place] [address] USAPlatelets [#/volume] in Blood by Automated countOrdered By: Misha Sy on 98-65-2459Aitludnep (Bld) [#/Vol]315 10*3/aPYygusq895-220 Cher[facility] HospitalComment on above:Performed By: #### B12, TSH3, CBC, CMP, [id number] #### [facility] [address] [id number] USAPotassium [Moles/volume] in Serum or PlasmaOrdered By: Misha Sy on 42-17-7998Qktodgwda [Moles/Vol]4.0 mmol/LNormal3.5-5.1FMetroHealth Parma Medical CenterComment on above:Performed By: #### B12, TSH3, CBC, CMP, [id number] #### [facility] [address] [place] [address] USAProtein [Mass/volume] in Serum or PlasmaOrdered By: Misha Sy on 62-17-9243Yvqlweh [Mass/Vol]6.7 g/dLNormal6.4-8.9Cherrington HospitalComment on above:Performed By: #### B12, TSH3, CBC, CMP, [id number] #### [facility] [address] [place] [address] USASerum globulin measurement by calculation (mass/volume) Ordered By: Misha Sy on 12-49-9445Jrblgpqj (S) [Mass/Vol]2.4 g/dLNormal [facility]rington HospitalComment on above:Performed By: #### B12, TSH3, CBC, CMP, [id number] #### [place] [address] USASerum or plasma albumin/globulin mass ratioOrdered By: Misha Sy on 32-53-0255Phuwvzy/Globulin [Mass ratio]1.8 {ratio}Normal Cherrington HospitalComment on above:Performed By: #### B12, TSH3, CBC, CMP, [id number] #### [place] [address] USASerum or plasma anion gap determinationOrdered By: Misha Sy on 50-71-5898Pcdnz gap [Moles/Vol]10.2 mmol/LNormal6.0-15.0Cherrington HospitalComment on above:Performed By: #### B12, TSH3, CBC, CMP, [id number] #### [facility] [address] [place], [place] [address] USASodium [Moles/volume] in Serum or PlasmaOrdered By: Misha Sy on 09-56-0108Ynfgkd [Moles/Vol]138 mmol/MAptidl245-973BeqhqaipfCherrington HospitalComment on above:Performed By: #### B12, TSH3, CBC, CMP, [id number] #### [facility] [address] [place] [address] USAThyrotropin [Units/volume] in Serum or PlasmaOrdered By: Misha Sy on 07-97-8436HQM Qn0.74 m[IU]/LNormal0.45-5.33C[facility]rington HospitalComment on above:Performed By: #### B12, TSH3, CBC, CMP, [id number] #### [place] [address] USAUrea nitrogen [Mass/volume] in Serum or PlasmaOrdered By: Misha Sy on 90-56-7382Xpph nitrogen [Mass/Vol]5 mg/dLLow7-25C[facility]rington HospitalComment on above:Performed By: #### B12, TSH3, CBC, CMP, [id number] #### [place] [address] USAVitamin B12 ser/plasOrdered By: Misha Sy on 09-17-2024 Cobalamin (Vitamin B12) [Mass/Vol]712 pg/dOKujjef911-970QznplaigvCherrington HospitalComment on above:Performed By: #### B12, TSH3, CBC, CMP, [id number] #### [place] [id number] USAVitamin D 25 Hydroxy Totalon 35-48-0801Mhecysz D 25 Hydroxy Total54.3 ng/vRFiytnm75-020F[facility] Hospital Physician GroupComment on above:Result Comment: VITAMIN D STATUS 25(OH)VITAMIN D RANGE (ng/mL) Deficient <20 Insufficient 20 to <30 Sufficient 30 to 100 Reference: Alejandra MF,Nina NC, Jerry ELLINGTON, et al. Evaluation,treatment, and prevention of vitamin D deficiency; an Endocrine Society clinical practice guideline. JCEM. 2010; 96(7):1911-30. PERFORMED BY: [place] [address] PATHOLOGIST PASSENGER CAR INSPECTOR JONN CERVANTES M.D.Performed By: #### B12, TSH3, CBC, CMP, [id number] #### [place] [address] USAVitamin D+Metabolites [Mass/volume] in Serum or Plasma Ordered By: Misha Sy on 22-40-7928Uaugycb D+Metabolites [Mass/Vol]54.3 ng/mL 30-100Cherrington HospitalComment on above:VITAMIN D STATUS 25(OH)VITAMIN D RANGE (ng/mL) Deficient <20 Insufficient 20 to <10Ymigdbdsxg33 to 100Reference: Alejandra MF,Nina DC, Jerry ELLINGTON, et al. Evaluation,treatment, and prevention of vitamin D deficiency; an Endocrine Society clinical practice guideline. JCEM. 2010; 96(7):1911-30.CNPNon 27-50-2813OEFVOumbzknxf ([facility]) YOLANDA APARICIO ([id number]) 1995 F Date Time Provider Department 09/16/24 JUDY GAMEZ During your visit today, we recorded the following information about you: Judy Gamez PSYD 09/16/2024 9:14 AM Signed Can pt please be added for the followin:30 12/12, 9:30 12/26, 9:30 01/16 She does not need a call back, thanks! Allergies As of Date: 09/16/2024 Noted Allergy Reaction MODAFINIL 05/24/2022 1 - Mental Status Change AMOXICILLIN-POT CLAVULANATE 11/11/2020 14 - Other: See Comments Comments: extreme dizziness BACTRIM (SULFAMETHOXAZOLE-TRIMETH*11/23/2017 8 - GI Upset CEPHALEXIN 11/11/2020 16 - Unknown CIPROFLOXACIN 01/31/2020 16 - Unknown LEXAPRO (ESCITALOPRAM) 11/23/2017 8 - GI Upset ORANGE JUICE 11/23/2017 2 - Rash SERTRALINE 11/11/2020 1 - Mental Status Change 14 - Other: See Comments TRIMETHOPRIM 03/25/2018 14 - Other: See Comments Date Reviewed: 08/08/2024 Reviewed by: Rosey Cleaning MA - Fully Assessed Reason for Visit: Appointment [186] Prescriptions as of 09/17/2024 - pantop[address] (PROTONIX) 40 mg tablet TAKE 1 TABLET BY MOUTH EVERY DAY - ALPRAZolam (XANAX) 0.5 mg tablet Take 0.5 mg by mouth. - cyanocobalamin 1,000 mcg/mL INJECT 1 ML INTRAMUSCULARLY ONCE EVERY DAY X7 DAYS,1 ML ONCE A WEEK X90 DAYS,1 ML ONCE EVERY 30 DAYS - naltrexone HCl (NALTREXONE ORAL) Take 0.75 mg by mouth once daily. - nitroglycerin sublingual (NITROQUICK) 0.3 mg SL tablet Dissolve 1 tablet under the tongue one time only for 1 dose. To be administered in Radiology for CTA exam - tiZANidine (ZANAFLEX) 4 mg tablet take 1 tablet by mouth everyday at bedtime - gabapentin (NEURONTIN) 100 mg capsule Take 2 capsules by mouth once daily. (taken with 300mg capsule) - gabapentin (NEURONTIN) 300 mg capsule 1 capsule at bedtime (taken with two 100 mg capsules) - hydrOXYzine HCl (ATARAX) 10 mg tablet Take 1 tablet by mouth three times daily as needed. - metoprolol tartrate, short acting, (LOPRESSOR) 25 mg tablet Take 25 mg by mouth twice daily. 12.5 mg in the morning and 25 mg in the evening - sodium chloride 1 g tab Take 2 g by mouth three times daily. 1 gram in morning and 1 gram in evening - fluticasone (FLONASE) 50 mcg/actuation nasal spray Use 2 Sprays in each nostril once daily. - acetaminophen (ACETAMINOPHEN EXTRA STRENGTH) 500 mg tablet Take 500 mg by mouth every 6 hours as needed for pain. - meclizine (ANTIVERT) 25 mg tab Take 50 mg by mouth three times daily as needed (TID PRN). As needed TID - ondansetron orally disintegrating (ZOFRAN ODT) 4 mg disintegrating tablet Take 4 mg by mouth every 6 hours as needed for nausea/vomiting. - ibuprofen (MOTRIN) 200 mg tablet Take 200 mg by mouth every 6 hours as needed for pain. - acetaminophen (TYLENOL) 500 mg tablet Take 500 mg by mouth as needed. Problem List As Of Date 09/16/2024 Noted Resolved COVID-19 [U07.1] 02/10/2020 10/25/2021 History of tobacco use [Z87.891] 07/11/2017 02/01/2021 Personal history of COVID-19 [Z86.16] 03/08/2020 Intractable tension-type headache [G44.201] 04/08/2018 Hypermobility of joint [M24.9] 04/07/2018 02/01/2021 Gait disturbance [R26.9] 09/26/2017 02/01/2021 Cerebrovascular disease [I67.9] 04/08/2018 Facial paresthesia [R20.2] 07/12/2017 POTS (postural orthostatic tachycardia syndrome*02/01/2021 Long COVID [U09.9] 02/01/2021 Cognitive communication deficit [R41.841] 02/10/2021 Mixed obsessional thoughts and acts [F42.2] 12/26/2021 PTSD (post-traumatic stress disorder) [F43.10] 12/26/2021 Obesity, Class I, BMI 30-34.9 [E66.811] 01/24/2022 Chronic fatigue syndrome [G93.32] 10/11/2022 Activity intolerance [R68.89] 11/23/2022 Impaired functional mobility, balance, gait, an*11/23/2022 Headache, unspecified [R51.9] 05/30/2023 Diagnosed: 05/30/2023 Mood disorder (HCC) [F39] 09/13/2022 06/28/2023 Diagnosed: 05/30/2023 Difficulty sleeping [G47.9] 05/30/2023 Diagnosed: 05/30/2023 Encounter Status:Closed by JUDY GAMEZ on 09/17/24[facility] - Chemistry and Chemistry - challengeOrdered By: Rajni Decker on 82-16-8139Iuulrmaku Ql (U)[facility] HospitalGlucose (U) [Mass/Vol]NegativeCherrington HospitalKetones Ql (U)Negative [facility] HospitalpH (U)5.5 [pH][facility] Specific gravity (U) [Rel density]1.020[facility] Urobilinogen (U) [Mass/Vol]0.2 mg/dLCherrington HospitalLaboratory - Specimen informationOrdered By: Rajni Decker on 49-03-4521Autlaylcob (U)clear [facility]rington HospitalColor (U)yellowCherrington HospitalLaboratory - UrinalysisOrdered By: Rajni Decker on 42-48-0480Vtixlwnrn esterase Test strip Ql (U)NegativeCherrington HospitalNitrite Ql (U)NegativeCherrington HospitalProtein Ql (U)NegativeCherrington HospitalNo Panel InformationOrdered By: Rajni Decker on 08-27-2024 Urine Occult BloodNegativeCherrington HospitalUrine Cultureon 10-89-8572Lqzhwowd identified Cx Nom (U)15,000 colonies/ml mixed bacterial skin contaminants 2 Days PERFORMED BY: [facility] [address] [place] [address] PATHOLOGIST PASSENGER CAR INSPECTOR JONN CERVANTES M.D.NormalSouth Florida Baptist Hospital Physician GroupComment on above: Performed By: #### B12, TSH3, CBC, CMP, [id number] #### [facility] [address] [place] [address] USAUrine cultureOrdered By: Rajni Decker on 61-86-3016Xrktfiid identified Cx Nom (U)2 DaysCherrington Hospital36on Contacted the patient to follow up on a concern that she had taken to the patient advocate. I did speak with Yolanda to confirm that she was able to voice her concerns with me and have what she needs at this time. I let her know if she needed anything else to contact us or me for further assistance.NormalAdena Health System36on [phone] to follow up with patient and her concerns. I was unable to get in touch with her, but I did leave a voicemail for her to call me back.Normal [facility] SystemTelephoneon [phone] Yolanda Aparicio 1995 F Date Provider Department Center 08/19/2024 GENE JEFFERSON HVC CARD [facility] HeartVAS No family history on fileNormalUniversity of South Texas Health System EdinburgCNCOon 17-12-7215FTANLknottHutchinson Health HospitalAlanine aminotransferase [Enzymatic activity/volume] in Serum or PlasmaOrdered By: Misha Sy on 67-18-2853FQJ [Catalytic activity/Vol]13 U/LNormal7-52C[facility]rington HospitalComment on above:Performed By: #### CMP, EDUAR, CBC, TSH3 #### [facility] [address] [place] [address] USAAlbumin [Mass/volume] in Serum or Plasma by Bromocresol green (BCG) dye binding methoOrdered By: Misha Sy on 24-64-9774Hpcmsrm BCG dye [Mass/Vol]4.2 g/dL3.5-5.7FMetroHealth Parma Medical CenterAlkaline phosphatase [Enzymatic activity/volume] in Serum or PlasmaOrdered By: Misha Sy on 79-80-6792HJD [Catalytic activity/Vol]52 U/ZLaggbg85-010OwqvzdxyuCherrington HospitalComment on above:Performed By: #### CMP, EDUAR, CBC, TSH3 #### [facility] [address] [place] [address] USAAspartate aminotransferase [Enzymatic activity/volume] in Serum or PlasmaOrdered By: Misha Sy on 51-99-2168DZB [Catalytic activity/Vol]16 U/TKrrpnq09-31VprwfomtxCherrington HospitalComment on above: Performed By: #### CMP, EDUAR, CBC, TSH3 #### [facility] [address] [place] [address] USABasophils [#/volume] in Blood by Automated countOrdered By: Misha Sy on 54-78-5550Uommljdfq (Bld) [#/Vol]0.0 10*3/uLNormal0.0-0.2 [facility] HospitalComment on above:Result Comment: PERFORMED BY: [place] [address] PATHOLOGIST PASSENGER CAR INSPECTOR JONN CERVANTES M.D.Performed By: #### CMP, EDUAR, CBC, TSH3 #### [facility] [address] [place] [address] USABasophils/100 leukocytes in Blood by Automated count Ordered By: Misha Gaonagles on 10-36-2180Tpennbxjr/100 WBC (Bld)0.8 %Normal. [facility]rington HospitalComment on above:Performed By: #### CMP, EDUAR, CBC, TSH3 #### [facility] [address] [place] [address] USABilirubin.total [Mass/volume] in Serum or PlasmaOrdered By: Misha Kerrie on 96-71-9652Ujjxnguxo [Mass/Vol]0.4 mg/dLNormal0.3-1.0 [facility] HospitalComment on above:Performed By: #### CMP, EDUAR, CBC, TSH3 #### [place] [address] USACalcium [Mass/volume] in Serum or PlasmaOrdered By: Misha Kerrie on 96-81-4836Uzohmbp [Mass/Vol]9.2 mg/dLNormal8.6-10.3FMetroHealth Parma Medical CenterComment on above:Performed By: #### CMP, EDUAR, CBC, TSH3 #### [place] [address] USACarbon dioxide, total [Moles/volume] in Serum or Plasma Ordered By: Misha Kerrie on 00-47-2989KG2 [Moles/Vol]29.5 mmol/XKyljfp08.0-31.0 [facility] HospitalComment on above:Performed By: #### CMP, EDUAR, CBC, TSH3 #### [facility] [address] [place] [address] USAChloride [Moles/volume] in Serum or PlasmaOrdered By: Misha Kerrie on 76-78-6735Hiikflxd [Moles/Vol]104 mmol/YZxnjcb52-046WudywgcgaCherrington HospitalComment on above:Performed By: #### CMP, EDUAR, CBC, TSH3 #### [facility] [address] [place] [address] USAComplete Blood Count Auto Diffon 69-41-7941Skzj Corpuscular HGB Conc33.2 g/mTQczemi46.0-35.0The Critical Access Hospital Physician GroupComment on above:Performed By: #### CMP, EDUAR, CBC, TSH3 #### [place] [address] USANRBC%0.1 /100{WBC}Normal0-0.5The [facility] Physician [facility] Comment on above:Performed By: #### CMP, EDUAR, CBC, TSH3 #### [place] [address] USAWhite Blood Count5.2 [CFU]/mLNormal3.8-11.6The [facility] Access Hospital Physician GroupComment on above:Performed By: #### CMP, EDUAR, CBC, TSH3 #### [place] [address] USAComprehensive Metabolic Panelon 38-98-1831Enczqct [Mass/Vol]4.2 g/dLNormal3.5-5.7The Critical Access Hospital Physician GroupComment on above: Performed By: #### CMP, EDUAR, CBC, TSH3 #### [place] [address] USAGFR/1.73 sq M.predicted MDRD (S/P/Bld) [Vol rate/Area] mL/min/{1.73_m2}NormalThe Critical Access Hospital Physician [facility] Medical CenterComment on above:Performed By: #### CMP, EDUAR, CBC, TSH3 #### [place] [address] USACortisolon 41-04-6073Grmyjceg03.2 ug/dLNormalThe Critical Access Hospital Physician [facility] Medical CenterComment on above:Result Comment: Reference range: AM 6 - 24 ug/dl PM <10 ug/dl [facility] Laboratory passenger tire builder and method: TakeChargeEL DXI, POLYCLONAL ANTIBODY CORTISOL ASSAY. PERFORMED BY: [place] [address] PATHOLOGIST PASSENGER CAR INSPECTOR JONN CERVANTES M.D.Performed By: #### B12, TSH3, CBC, CMP, [id number] #### [facility] [address] [place] [address] USACortisol [Mass/volume] in Serum or PlasmaOrdered By: Misha Sy on 16-64-4937Vnozzqsi [Mass/Vol]15.2 ug/dLCherrington HospitalComment on above:[facility] Laboratory passenger tire builder and method:BHAVIN UNICEL DXI, POLYCLONAL ANTIBODY CORTISOL ASSAY.Reference range: AM 6 - 24 ug/dl PM <10 ug/dlCreatinine [Mass/volume] in Serum or PlasmaOrdered By: Misha Sy on 09-92-7388Bcxyhagrvt [Mass/Vol]0.79 mg/dLNormal0.60-1.20C[facility]rington HospitalComment on above:Performed By: #### CMP, EDUAR, CBC, TSH3 #### [place] [address] USAEosinophils [#/volume] in Blood by Automated countOrdered By: Misha Sy on 34-94-0669Whivitkjitl (Bld) [#/Vol]0.2 10*3/uLNormal0.0-0.45 [facility] HospitalComment on above:Performed By: #### CMP, EDUAR, CBC, TSH3 #### [place] [address] USAEosinophils/100 leukocytes in Blood by Automated count Ordered By: Misha Sy on 39-78-4770Djwehiymnbb/100 WBC (Bld)4.4 %Normal. [facility]rington HospitalComment on above:Performed By: #### CMP, EDUAR, CBC, TSH3 #### [place] [id number] USAErythrocyte distribution width [Ratio] by Automated count Ordered By: Misha Sy on 09-20-2719Ftmquzpxewr distribution width (RBC) [Ratio]13.7 %Jlhtjt71.9-15.3FMetroHealth Parma Medical CenterComment on above: Performed By: #### CMP, EDUAR, CBC, TSH3 #### [facility] [address] [place] [address] USAErythrocytes [#/volume] in Blood by Automated countOrdered By: Misha Sy on 67-93-0496SAK (Bld) [#/Vol]4.56 10*6/uLNormal3.60-5.00 [facility] HospitalComment on above:Performed By: #### CMP, EDUAR, CBC, TSH3 #### [facility] [address] [place] [id number] USAGlucose [Mass/volume] in Serum or PlasmaOrdered By: Misha Sy on 87-18-2177Qqjxjsg [Mass/Vol]95 mg/mYNsvvnd84-763BykperulyCherrington HospitalComment on above:ADA recommended reference rangeRandom Glucose Reference Range is dependent on time and content of last meal. Glucose of more than 200 mg/dL in a nonstressed, ambulatory subject supports the diagnosisof Diabetes Mellitus.Result Comment: Random Glucose Reference Range is dependent on time and content of last meal. Glucose of more than 200 mg/dL in a nonstressed, ambulatory subject supports the diagnosis of Diabetes Mellitus. ADA recommended reference rangePerformed By: #### CMP, EDUAR, CBC, TSH3 #### [facility] [address] [place] [id number] USAHematocrit [Volume Fraction] of Blood by Automated count Ordered By: Misha Sy on 58-11-5167Ndytckhmry (Bld) [Volume fraction]38.1 % Dzjmmz27.0-46.4FMetroHealth Parma Medical CenterComment on above:Performed By: #### CMP, EDUAR, CBC, TSH3 #### [facility] [address] [place] [address] USAHemoglobin [Mass/volume] in BloodOrdered By: Misha Sy on 96-12-9828Vptszwoytg (Bld) [Mass/Vol]12.6 g/qGKpluyt88.8-15.4FMetroHealth Parma Medical CenterComment on above:Performed By: #### CMP, EDUAR, CBC, TSH3 #### [facility] [address] [place] [address] USALeukocytes [#/volume] corrected for nucleated erythrocytes in Blood by Automated counOrdered By: Misha Sy on 40-85-8002CLX corrected for nucl RBC Auto (Bld) [#/Vol]5.2 10*3/uL3.8-11.6FMetroHealth Parma Medical CenterLeukocytes [#/volume] in Blood by Automated countOrdered By: Misha Sy on 12-69-5855HAR (Bld) [#/Vol]5.2 10*3/uLNormal3.8-11.6FMetroHealth Parma Medical CenterComment on above:Performed By: #### CMP, EDUAR, CBC, TSH3 #### [facility] [address] [place] [address] USALymphocytes [#/volume] in Blood by Automated countOrdered By: Misha Sy on 66-00-9680Zgamojbvhdw (Bld) [#/Vol]2.2 10*3/uLNormal1.00-4.8 [facility] HospitalComment on above:Performed By: #### CMP, EDUAR, CBC, TSH3 #### [facility] [address] [place] [address] USALymphocytes/100 leukocytes in Blood by Automated count Ordered By: Misha Sy on 83-34-7480Leqbzletebr/100 WBC (Bld)41.5 %Normal. [facility] HospitalComment on above:Performed By: #### CMP, EDUAR, CBC, TSH3 #### [facility] [address] [place], [place] [address] [facility] [Entitic mass] by Automated countOrdered By: Misha Sy on 82-91-1626QAG (RBC) [Entitic mass]27.7 jtQlhvvn49.7-34.3FMetroHealth Parma Medical CenterComment on above:Performed By: #### CMP, EDUAR, CBC, TSH3 #### [facility] [address] [place], [place] [id number] [facility] Auto (RBC) [Mass/Vol]Ordered By: Misha Sy on 88-60-4153IYPG (RBC) [Mass/Vol]33.2 g/dL32.0-35.0Fire[facility] Regional Medical CenterMCV [Entitic volume] by Automated countOrdered By: Misha Sy on 14-15-0380FII (RBC) [Entitic vol]83.6 bCOoclfg44-127CtcfszfkeCherrington HospitalComment on above:Performed By: #### CMP, EDUAR, CBC, TSH3 #### [facility] [address] [place] [address] USAMonocytes [#/volume] in Blood by Automated countOrdered By: Misha Sy on 95-21-5241Lfcyetxgz (Bld) [#/Vol]0.4 10*3/uLNormal0.0-0.8 [facility] HospitalComment on above:Performed By: #### CMP, EDUAR, CBC, TSH3 #### [facility] [address] [place] [address] USAMonocytes/100 leukocytes in Blood by Automated count Ordered By: Misha Sy on 97-31-7651Qdtsqkxtj/100 WBC (Bld)7.5 %Normal. [facility] HospitalComment on above:Performed By: #### CMP, EDUAR, CBC, TSH3 #### [facility] [address] [place] [address] USANeutrophils [#/volume] in Blood by Automated countOrdered By: Misha Sy on 99-66-0969Xwkceiiczbw (Bld) [#/Vol]2.4 10*3/uLNormal1.8-7.7 [facility] HospitalComment on above:Performed By: #### CMP, EDUAR, CBC, TSH3 #### [facility] [address] [place] [address] USANeutrophils/100 leukocytes in Blood by Automated count Ordered By: Misha Sy on 02-66-3748Szxhvuxmdst/100 WBC (Bld)45.8 %Normal. [facility] HospitalComment on above:Performed By: #### CMP, EDUAR, CBC, TSH3 #### [facility] [address] [place] [address] USANo Panel InformationOrdered By: Misha Sy on 08-13-2024 Estimated GFR (CKD-EPI)> 60.0 mL/MinCherrington HospitalPharmacy Creatinine Clearance (ChemN/AFMetroHealth Parma Medical CenterNucleated erythrocytes [Presence] in Blood by Automated countOrdered By: Misha Sy on 61-51-6369Bwckmonxk RBC Auto Ql (Bld)0.1 /100{WBC}0-0.5FMetroHealth Parma Medical CenterPlatelet mean volume [Entitic volume] in Blood by Automated count Ordered By: Misha Sy on 07-33-4950Lvykqpsa mean volume (Bld) [Entitic vol] 8.5 fLNormal6.3-10.7FMetroHealth Parma Medical CenterComment on above:Performed By: #### CMP, EDUAR, CBC, TSH3 #### [facility] [address] [place] [address] USAPlatelets [#/volume] in Blood by Automated countOrdered By: Misha Sy on 67-46-7645Bhrboegos (Bld) [#/Vol]323 10*3/gDPjesyp619-610 [facility] HospitalComment on above:Performed By: #### CMP, EDUAR, CBC, TSH3 #### [facility] [address] [place] [address] USAPotassium [Moles/volume] in Serum or PlasmaOrdered By: Misha Sy on 79-70-0156Rxuqyujou [Moles/Vol]4.2 mmol/LNormal3.5-5.1FMetroHealth Parma Medical CenterComment on above:Performed By: #### CMP, EDUAR, CBC, TSH3 #### [facility] [address] [place] [id number] USAProtein [Mass/volume] in Serum or PlasmaOrdered By: Misha Sy on 60-27-5196Seoizom [Mass/Vol]6.7 g/dLNormal6.4-8.9C[facility]rington HospitalComment on above:Performed By: #### CMP, EDUAR, CBC, TSH3 #### [facility] [address] [place] [address] USASerum globulin measurement by calculation (mass/volume) Ordered By: Misha Sy on 70-06-6323Svymkgex (S) [Mass/Vol]2.5 g/dLNormal [facility] HospitalComment on above:Performed By: #### CMP, EDUAR, CBC, TSH3 #### [facility] [address] [place] [address] USASerum or plasma albumin/globulin mass ratioOrdered By: Misha Kerrie on 57-08-9869Hkruhzx/Globulin [Mass ratio]1.7 {ratio}Normal [facility] HospitalComment on above:Performed By: #### CMP, EDUAR, CBC, TSH3 #### [facility] [facility] [address] [place] [address] USASerum or plasma anion gap determinationOrdered By: Misha Kerrie on 96-44-4468Lkfwa gap [Moles/Vol]9.7 mmol/LNormal6.0-15.0Cherrington HospitalComment on above:Performed By: #### CMP, EDUAR, CBC, TSH3 #### [facility] [address] [place] [address] USASodium [Moles/volume] in Serum or PlasmaOrdered By: Misha Kerrie on 75-94-3982Sikyzc [Moles/Vol]139 mmol/HQzmwcb834-296WjvraskfwCherrington HospitalComment on above:Performed By: #### CMP, EDUAR, CBC, TSH3 #### [facility] [address] [place] [address] USAThyrotropin [Units/volume] in Serum or PlasmaOrdered By: Misha Kerrie on 65-59-8696IUM Qn1.26 m[IU]/LNormal0.45-5.33Cherrington HospitalComment on above:Performed By: #### CMP, EDUAR, CBC, TSH3 #### [facility] [address] [place], [place] [id number] USAUrea nitrogen [Mass/volume] in Serum or PlasmaOrdered By: Misha Kerrie on 86-77-8573Wprl nitrogen [Mass/Vol]6 mg/dLLow7-25Cherrington HospitalComment on above:Performed By: #### CMP, EDUAR, CBC, TSH3 #### [facility] [address] [place] [address] USAElastase.pancreatic [Mass/mass] in StoolOrdered By: David Kevin on 37-30-5797Tuhpiakm.pancreatic (Stl) [Mass/Mass]409 ug/g>=200Cherrington HospitalComment on above:Interpretation:<100 ug/g: Severe Exocrine Pancreatic Knazldatjyred704-170 ug/g: Mild to ModerateExocrine Pancreatic Insufficiency>=200 ug/g: NormalNo Panel InformationOrdered By: David Kevin on 49-23-8222Dpiqw Pancreatic Elastase InterpretNormalNormalCherrington HospitalPAN ELASTASE, FECALon 88-95-2269OBEKNMKR INTERPRETATION NormalNormalNormalCBlanchard Valley Health System on above:Order Comment: Specimen Type: STOOL SPECIMENOrdering Facility: [facility] Address:[address] [place], [place] [address]Performed By: #### PANCEF ####[facility] [id number] [facility] [id number] [place] [address] [place] [facility] 1ELASTASE-1 [id number] ug/g Normal>=200[facility] on above:Order Comment: Specimen Type: STOOL SPECIMENOrdering Facility: [facility] Address:[address] [place], [place] [address]Result Comment: Interpretation: <100 ug/g: Severe Exocrine Pancreatic Insufficiency 100-199 ug/g: Mild to Moderate Exocrine Pancreatic Insufficiency >=200 ug/g: NormalPerformed By: #### PANCEF ####[facility] [id number] [place] [address] [place] OF AMERICACELIAC SCREENon 62-42-7075BNWBE DEAMIDATED IGA QUALNegativeNormal Negative, Test not IndicatedOhioHealth on above:Order Comment: Specimen Type: BLOOD SPECIMEN Ordering Facility: [facility] Address: [address] [place], [place] [address]Result Comment: This is used as an aid in diagnosis of celiac disease. Clinical correlation is required. The following results were obtained with an Inova QUANTA Lite Gliadin IgA FINN Gliadin. Gliadin IgA values obtained with different manufacturers' assay methods may not be used interchangeably. The magnitude of the reported IgA levels cannot be correlated to an endpoint titer.Performed By: #### [id number] #### [facility] CLIA [id number] [address] [place] [address] [place] OF AMERICAGliadin peptide IgA Qn (S)3 UnitsNormal<20[facility] on above:Order Comment: Specimen Type: BLOOD SPECIMEN Ordering Facility: [facility] Address: [address] [place], [place] [address]Performed By: #### [id number] #### [facility] CLIA [id number] [address] [place] [address] [place] OF AMERICAINTERPRETATIONNo serological evidence of celiac disease, however, if celiac disease is clinically suspected and patient is not on gluten-free diet, histological diagnosis may be considered. HLA testing may help with risk assessment.NormalOhioHealth on above:Order Comment: Specimen Type: BLOOD SPECIMEN Ordering Facility: [facility] Address: [address] [place], [place] [address]Performed By: #### [id number] #### [facility] CLIA [id number] [address] [place] [address] STATES OF [facility] HOSPITALTRANSGLUTAMINASE IGA ABS INTERPRETATIONNegativeNormalNegativeOhioHealth on above: Order Comment: Specimen Type: BLOOD SPECIMEN Ordering Facility: [facility] Address: [address] [place], [place] [address]Result Comment: The following results were obtained with Inova QUANTA Lite R h-tTG IgA FINN.???R h-tTG IgA values obtained with different manufacturers' assay methods may not be used interchangeably. The magnitude of the reported IgA levels cannot be corelated to an endpoint???concentration. This is used as an aid in diagnosis of celiac disease. Clinical correlation is required.Performed By: #### [id number] #### [facility] CLIA [id number] [address] [place] [address] [place] [facility] HOSPITALtTG IgA Qn (S)<2Normal<4 [facility] on above:Order Comment: Specimen Type: BLOOD SPECIMEN Ordering Facility: [facility] Address: [address] [place], [place] [address]Performed By: #### [id number] #### [facility] CLIA [id number] [address] [place], [place] [address] [facility] OF AMERICACNOVon 35-22-0590LQHSZawzsv Visit ([facility]) YOLANDA APARICIO ([id number]) 1995 F Date Time Provider Department 08/08/24 9:20 AM DAVID KEVIN JR [facility] During your visit today, we recorded the following information about you: Temperature Pulse Blood pressure Weight 97.6 degrees 66/minute 92/63 81.4 kg Height 1.651 m David Kevin Jr., DO 08/08/2024 9:59 AM Signed Patient presents with: New Patient: Chronic nausea, Deficiency of other B group vitamins Nausea and Vitamin deficiency HPI: Yolanda Aparicio, patient is a 29-year-old female with gastroesophageal reflux disease, long COVID, postural orthostatic tachycardia syndrome (POTS), chronic fatigue, anxiety, and depression, presenting for evaluation of chronic nausea and recurrent vitamin deficiencies. She reports that her chronic nausea began after omer COVID in 2019 and has persisted since that time. The nausea is described as periodic and random, not consistently related to meals, and is not present all day. She typically experiences nausea at least once daily, for which she takes ondansetron (Zofran) as needed, usually once per day. She denies frequent vomiting but notes that the nausea can be severe enough to require her to lie down and take medication. She also reports recent episodes of acid reflux, particularly after eating, and describes intermittent bloating. She denies diarrhea and does not typically experience abdominal pain. The patient has experienced multiple vitamin deficiencies, including B12, omega, and carnitine, as well as abnormal trace elements and elevated homocysteine (13.8, with a comment that optimal is 5-7). She is currently self-administering B12 injections once monthly, previously given weekly when her levels were lower, but insurance limitations now restrict her to monthly dosing. Her most recent B12 level was in the 400s, though she was advised that an optimal level would be in the 600s. She reports that her folate was last checked in 2020 and was normal at that time (level 10). She has not been diagnosed with anemia, and her blood counts have been reported as normal. She notes that when her B12 was low in the past, she felt weird and currently feels similarly, prompting her to delay her next injection until after repeat labs. She denies current alcohol or marijuana use, though she used both in the past. She reports living under chronic stress and believes her immune system has been impaired since COV, as she now gets sick more easily. She has not undergone upper endoscopy or colonoscopy and expresses reluctance toward invasive procedures due to anxiety. She retains her gallbladder and has not had prior abdominal surgery. Her current medications include ondansetron as needed for nausea and monthly B12 injections. She has previously been prescribed Pepcid in the hospital and has taken promethazine, but does not have regular prescriptions for these medications. She is not currently taking semaglutide but plans to start tirzepatide. She has not been evaluated by an anesthesia assistant but plans to see gynecology for hormone testing. Diagnostics: (April) Laboratory testing: - B12: ~400 (October) Laboratory testing: - Multiple tests performed (approximately 40). B12 deficiency noted. (2020) Laboratory testing: - B12: Within normal limits Laboratory testing (date not provided): - Ferritin: 46.9 (below referenced optimal range of 50-150) - Homeocysteine: 13.8 (slightly elevated) - [place]: A, bnormal - Carnitine: Abnormal Past GI workup 07/13/17 CTA ABD/PEL W IVCON Abdominal aorta, iliac and visualized femoral arteries are patent with no acute dissection or occlusion. No significant atherosclerotic disease. Visceral and renal arteries are also widely patent with no ostial stenoses. Liver, spleen, pancreas and adrenal glands are unremarkable. Gallbladder is normal. No biliary dilatation. No enhancing renal mass or hydronephrosis. Bowel demonstrates no obstruction or acute inflammation. A small amount of free fluid in the pelvis is likely physiologic. No free air. No mesenteric lymph node enlargement. Portal and mesenteric veins are patent. Bladder is incompletely distended. Uterus and adnexal structures are within normal limits. No retroperitoneal lymph node enlargement. Osseous structures are unremarkable. Component 04/15/24 11/05/23 VITAMIN B12 430 -- Vitamin B12 -- 198 Low Component Ref Range AND Units 3 mo ago Comments METHYLMALONIC ACID 55 - 335 nmol/L 211 Component Ref Range AND Units 8 mo ago Comments Copper, 24H Urine 3 - 35 ug/24 hr 5 Copper/Creat Ratio, Urine 0 - 49 ug/g creat 7 Copper, Urine Not Estab. ug/L 5 Detection Limit = 1 Creatinine,U 0.30 - 3.00 g/L 0.74 Detection Limit = 0.10 Resulting Agency [facility] (BEAKER) Component Ref Range AND Units 8 mo ago Porphobilinog (more content not included)...NormalTogus Va Medical CenterCR SerPl-mCncon 53-26-6160NRC [Mass/Vol]mg/LNormal<0.9CChillicothe VA Medical Center Comment on above:Order Comment: Specimen Type: BLOOD SPECIMEN Ordering Facility: [facility] Address: [address] [place], [place] [address]Performed By: #### 2132-9, 2284-8, 1987-06 #### [facility] CLIA [id number] [address] [place] [address] [place] OF AMERICAESR Westergren method (Bld) [Velocity]on 01-72-9714WFG (Bld) [Velocity]8 mm/hCleveland ClinicInterpretation and review of laboratory resultsNormalCMercy Health Perrysburg Hospital (Bld) [Velocity]8 mm/hNormal0-20T[facility] Va Medical CenterComment on above:Order Comment: Specimen Type: BLOOD SPECIMEN Ordering Facility: [facility] Address: [address] [place], [place] [address]Performed By: #### 4537-7 #### [facility] CLIA [id number] [address] [place], [place] [address] [place] OF AMERICAFolate SerPl-mCncon 51-34-8462Mdjgir [Mass/Vol]7.9 ng/mLNormal>4.7CBlanchard Valley Health System on above:Order Comment: Specimen Type: BLOOD SPECIMEN Ordering Facility: [facility] Address: [address] [place], [place] [address]Performed By: #### 2132-9, 2284-8, 1987-06 #### [facility] CLIA [id number] [address] [place] [address] [place] OF AMERICAIgA SerPl-mCncon 08-08-2024 IgA [Mass/Vol]220 mg/lNSmbtva54-475WopqxnzieOhioHealth on above: Order Comment: Specimen Type: BLOOD SPECIMEN Ordering Facility: [facility] Address: [address] [place], [place] [address]Performed By: #### 2458-8, 2465-3, 2472-9 #### [facility] CLIA [id number] [address] [place] [address] [place] OF AMERICAIgA [Mass/volume] in Serum or PlasmaOrdered By: David Kevin on 09-69-4066KqI [Mass/Vol]220 mg/jA06-706 Cher[facility] HospitalIgE SerPl-aCncon 99-28-2158DsK Qn22.1 kU/l Normal<114.0[facility] on above:Order Comment: Specimen Type: BLOOD SPECIMEN Ordering Facility: [facility] Address: [address] [place], [place] [address]Performed By: #### 83874-5 #### [facility] CLIA [id number] [address] [place] [address] [place] AMERICAIgE [Units/volume] in Serum or PlasmaOrdered By: David Kevin on 79-40-5050PnM Qn22.1 kU/l<114.0C[facility]rington HospitalIgG SerPl-mCncon 22-04-4848EcL [Mass/Vol]999 mg/dLNormal 700-1600[facility] on above:Order Comment: Specimen Type: BLOOD SPECIMEN Ordering Facility: [facility] Address: [address] [place], [place] [address]Performed By: #### 2458-8, 2465-3, 2472-9 #### [facility] CLIA [id number] [address] [place] [address] [place] AMERICAIgG [Mass/volume] in Serum or PlasmaOrdered By: David Kevin on 25-22-6314IrH [Mass/Vol]999 mg/uU064-0524 [facility] HospitalIgM SerPl-mCncon 36-94-8366VdE [Mass/Vol]124 mg/cUFafsal79-153RblnvtridOhioHealth on above:Order Comment: Specimen Type: BLOOD SPECIMENOrdering Facility: [facility] Address:[address] [place], [place] [address]Performed By: #### 2458-8, 2465-3, 2479 ####[facility]IA [id number] [place] [address] [place] AMERICAIgM [Mass/volume] in Serum or PlasmaOrdered By: David Kevin on 64-50-4758AcK [Mass/Vol]124 mg/tM82-752 [facility] HospitalLaboratory - Chemistry and Chemistry - challengeOrdered By: David Kevin on 82-51-9464Hqjqsznqp (Vitamin B12) [Mass/Vol] 641 pg/cR377-4184EvkntnfxsCherrington HospitalLaboratory - Hematology and Cell countsOrdered By: David Kevin on 41-85-1378YTE (Bld) [Velocity]8 mm/h0-20 [facility] HospitalNo Panel InformationOrdered By: David Kevin on 79-41-5296D-Reactive Protein, Quantitative<0.3 mg/dL<0.9C[facility]rington HospitalFolate7.9 ng/mL>4.7FMetroHealth Parma Medical CenterGliadin (Deamidated) IgA Ab InterpNegativeNegative, Test not IndicatedCherrington HospitalComment on above:This is used as an aid in diagnosis of celiac disease. Clinical correlation is required.The following results were obtained with an Inova QUANTA Lite Gliadin IgA FINN Gliadin. Gliadin IgA values obtained with different manufacturers' assay methods may not be used interchangeably. The magnitude of the reported IgA levels cannot be correlated to an endpoint titer.Miscellaneous Test CommentCherrington HospitalTissue Transglutaminase IgA InterpNegativeNegativeCherrington Hospital Comment on above:The following results were obtained with Inova QUANTA Lite R h- tTG IgA FINN.???R h-tTG IgA values obtained with different manufacturers' assay methods may not be used interchangeably. The magnitude of the reported IgA levels cannot be corelated to an endpoint???concentration.This is used as an aid in diagnosis of celiac disease. Clinical correlation is required.Serum gliadin peptide IgA antibody assay (units/volume)Ordered By: David Kevin on 08-08-2024 Gliadin peptide IgA Qn (S)3 Units<20[facility] State Health Systemerum tissue transglutaminase (tTG) IgA antibody assay (units/volume)Ordered By: David Kevin on 08-98-7315tIB IgA Qn (S)<2 U/mL<4FMetroHealth Parma Medical CenterVit B12 SerPl-mCncon 16-92-7239Hgsxfngao (Vitamin B12) [Mass/Vol]641 pg/mLNormal 232-1245CChillicothe VA Medical CenterComment on above:Order Comment: Specimen Type: BLOOD SPECIMEN Ordering Facility: [facility] Address: [address] [place], [place] [address]Performed By: #### 2132-9, 2288, 1987-06 #### [facility] CLIA [id number] [address] [place] [address] [place] OF AMERICACNPNon [id number] Telephone ([facility]) YOLANDA APARICIO ([id number]) 1995 F Date Time Provider Department 08/06/24 JUDY GAMEZ [facility] During your visit today, we recorded the following information about you: Judy GamezMICHAEL 08/06/2024 12:50 PM Addendum Pt would like to reschedule for tomorrow. Can she be contacted to see if she can meet tomorrow at 8am instead, or 7am Sunday? Thanks! Allergies As of Date: 08/06/2024 Noted Allergy Reaction MODAFINIL 05/24/2022 1 - Mental Status Change AMOXICILLIN-POT CLAVULANATE 11/11/2020 14 - Other: See Comments Comments: extreme dizziness BACTRIM (SULFAMETHOXAZOLE-TRIMETH*11/23/2017 8 - GI Upset CEPHALEXIN 11/11/2020 16 - Unknown CIPROFLOXACIN 01/31/2020 16 - Unknown LEXAPRO (ESCITALOPRAM) 11/23/2017 8 - GI Upset ORANGE JUICE 11/23/2017 2 - Rash SERTRALINE 11/11/2020 1 - Mental Status Change 14 - Other: See Comments TRIMETHOPRIM 03/25/2018 14 - Other: See Comments Date Reviewed: 06/05/2023 Reviewed by: Wilma Chong, DIANNE - Fully Assessed Reason for Visit: Appointment [186] Prescriptions as of 08/07/2024 - naltrexone HCl (NALTREXONE ORAL) Take 0.75 mg by mouth once daily. - nitroglycerin sublingual (NITROQUICK) 0.3 mg SL tablet Dissolve 1 tablet under the tongue one time only for 1 dose. To be administered in Radiology for CTA exam - tiZANidine (ZANAFLEX) 4 mg tablet take 1 tablet by mouth everyday at bedtime - gabapentin (NEURONTIN) 100 mg capsule Take 2 capsules by mouth once daily. (taken with 300mg capsule) - gabapentin (NEURONTIN) 300 mg capsule 1 capsule at bedtime (taken with two 100 mg capsules) - hydrOXYzine HCl (ATARAX) 10 mg tablet Take 1 tablet by mouth three times daily as needed. - metoprolol tartrate, short acting, (LOPRESSOR) 25 mg tablet Take 25 mg by mouth twice daily. 12.5 mg in the morning and 25 mg in the evening - sodium chloride 1 g tab Take 2 g by mouth three times daily. 1 gram in morning and 1 gram in evening - fluticasone (FLONASE) 50 mcg/actuation nasal spray Use 2 Sprays in each nostril once daily. - acetaminophen (ACETAMINOPHEN EXTRA STRENGTH) 500 mg tablet Take 500 mg by mouth every 6 hours as needed for pain. - meclizine (ANTIVERT) 25 mg tab Take 50 mg by mouth three times daily as needed (TID PRN). As needed TID - ondansetron orally disintegrating (ZOFRAN ODT) 4 mg disintegrating tablet Take 4 mg by mouth every 6 hours as needed for nausea/vomiting. - ibuprofen (MOTRIN) 200 mg tablet Take 200 mg by mouth every 6 hours as needed for pain. - acetaminophen (TYLENOL) 500 mg tablet Take 500 mg by mouth as needed. Problem List As Of Date 08/06/2024 Noted Resolved COVID-19 [U07.1] 02/10/2020 10/25/2021 History of tobacco use [Z87.891] 07/11/2017 02/01/2021 Personal history of COVID-19 [Z86.16] 03/08/2020 Intractable tension-type headache [G44.201] 04/08/2018 Hypermobility of joint [M24.9] 04/07/2018 02/01/2021 Gait disturbance [R26.9] 09/26/2017 02/01/2021 Cerebrovascular disease [I67.9] 04/08/2018 Facial paresthesia [R20.2] 07/12/2017 POTS (postural orthostatic tachycardia syndrome*02/01/2021 Long COVID [U09.9] 02/01/2021 Cognitive communication deficit [R41.841] 02/10/2021 Mixed obsessional thoughts and acts [F42.2] 12/26/2021 PTSD (post-traumatic stress disorder) [F43.10] 12/26/2021 Obesity, Class I, BMI 30-34.9 [E66.811] 01/24/2022 Chronic fatigue syndrome [G93.32] 10/11/2022 Activity intolerance [R68.89] 11/23/2022 Impaired functional mobility, balance, gait, an*11/23/2022 Headache, unspecified [R51.9] 05/30/2023 Diagnosed: 05/30/2023 Mood disorder (HCC) [F39] 09/13/2022 06/28/2023 Diagnosed: 05/30/2023 Difficulty sleeping [G47.9] 05/30/2023 Diagnosed: 05/30/2023 Encounter Status:Closed by JUDY GAMEZ on 08/07/24[facility] Telephoneon [id number] Yolanda Aparicio 1995 F Date Provider Department Center 07/30/2024 GENE JEFFERSON [facility] CARD [facility] HeartVAS No family history on fileNoalUThe University of Toledo Medical CenterNo Panel Informationon [id number] of biopsy: punch Informed consent: discussed and consent obtained Informed consent comment: The risks and benefits were discussed. Risks include, but are not limited to, bleeding, infection, scarring, pain, & nerve damage. An opportunity to ask questions prior to the procedure was permitted and questions were answered. Patient was prepped and draped in usual sterile fashion: Area cleansed with alcohol. Anesthesia: the lesion was anesthetized in a standard fashion Anesthetic: 1% lidocaine w/ epinephrine 1-100,000 buffered w/ 8.4% NaHCO3 Punch size: 8 mm (A biopsy by punch method was performed using a dermal punch) Suture size: 4-0 Suture type: nylon Suture type comment: Hemostasis was achieved with suture. Hemostasis achieved with: suture Outcome: patient tolerated procedure well Post-procedure details: sterile dressing applied and wound care instructions given Post-procedure details comment: Emphasized the need to contact clinic for any signs of infection, uncontrollable bleeding, or complications. Dressing type: bandage Additional details: Amount of lidocaine used: 4.0 cc Number of sutures used: 1 deep 2 top Specimen sent for: H&E or DIF Photo taken [facility] CampusCNPNon [id number] ([facility]) YOLANDA APARICIO Donald ([id number]) 1995 F Date Time Provider Department 07/16/24 JUDY GAMEZ [facility] During your visit today, we recorded the following information about you: Judy GamezMICHAEL 07/16/2024 7:04 AM Signed Can pt please be added on August 28 at 8am and September 30 at 9:30am? Thanks! Allergies As of Date: 07/16/2024 Noted Allergy Reaction MODAFINIL 05/24/2022 1 - Mental Status Change AMOXICILLIN-POT CLAVULANATE 11/11/2020 14 - Other: See Comments Comments: extreme dizziness BACTRIM (SULFAMETHOXAZOLE-TRIMETH*11/23/2017 8 - GI Upset CEPHALEXIN 11/11/2020 16 - Unknown CIPROFLOXACIN 01/31/2020 16 - Unknown LEXAPRO (ESCITALOPRAM) 11/23/2017 8 - GI Upset ORANGE JUICE 11/23/2017 2 - Rash SERTRALINE 11/11/2020 1 - Mental Status Change 14 - Other: See Comments TRIMETHOPRIM 03/25/2018 14 - Other: See Comments Date Reviewed: 06/05/2023 Reviewed by: Wilma Chong, DIANNE - Fully Assessed Reason for Visit: Appointment [186] Prescriptions as of 07/16/2024 - naltrexone HCl (NALTREXONE ORAL) Take 0.75 mg by mouth once daily. - nitroglycerin sublingual (NITROQUICK) 0.3 mg SL tablet Dissolve 1 tablet under the tongue one time only for 1 dose. To be administered in Radiology for CTA exam - tiZANidine (ZANAFLEX) 4 mg tablet take 1 tablet by mouth everyday at bedtime - gabapentin (NEURONTIN) 100 mg capsule Take 2 capsules by mouth once daily. (taken with 300mg capsule) - gabapentin (NEURONTIN) 300 mg capsule 1 capsule at bedtime (taken with two 100 mg capsules) - hydrOXYzine HCl (ATARAX) 10 mg tablet Take 1 tablet by mouth three times daily as needed. - metoprolol tartrate, short acting, (LOPRESSOR) 25 mg tablet Take 25 mg by mouth twice daily. 12.5 mg in the morning and 25 mg in the evening - sodium chloride 1 g tab Take 2 g by mouth three times daily. 1 gram in morning and 1 gram in evening - fluticasone (FLONASE) 50 mcg/actuation nasal spray Use 2 Sprays in each nostril once daily. - acetaminophen (ACETAMINOPHEN EXTRA STRENGTH) 500 mg tablet Take 500 mg by mouth every 6 hours as needed for pain. - meclizine (ANTIVERT) 25 mg tab Take 50 mg by mouth three times daily as needed (TID PRN). As needed TID - ondansetron orally disintegrating (ZOFRAN ODT) 4 mg disintegrating tablet Take 4 mg by mouth every 6 hours as needed for nausea/vomiting. - ibuprofen (MOTRIN) 200 mg tablet Take 200 mg by mouth every 6 hours as needed for pain. - acetaminophen (TYLENOL) 500 mg tablet Take 500 mg by mouth as needed. Problem List As Of Date 07/16/2024 Noted Resolved COVID-19 [U07.1] 02/10/2020 10/25/2021 History of tobacco use [Z87.891] 07/11/2017 02/01/2021 Personal history of COVID-19 [Z86.16] 03/08/2020 Intractable tension-type headache [G44.201] 04/08/2018 Hypermobility of joint [M24.9] 04/07/2018 02/01/2021 Gait disturbance [R26.9] 09/26/2017 02/01/2021 Cerebrovascular disease [I67.9] 04/08/2018 Facial paresthesia [R20.2] 07/12/2017 POTS (postural orthostatic tachycardia syndrome*02/01/2021 Long COVID [U09.9] 02/01/2021 Cognitive communication deficit [R41.841] 02/10/2021 Mixed obsessional thoughts and acts [F42.2] 12/26/2021 PTSD (post-traumatic stress disorder) [F43.10] 12/26/2021 Obesity, Class I, BMI 30-34.9 [E66.811] 01/24/2022 Chronic fatigue syndrome [G93.32] 10/11/2022 Activity intolerance [R68.89] 11/23/2022 Impaired functional mobility, balance, gait, an*11/23/2022 Headache, unspecified [R51.9] 05/30/2023 Diagnosed: 05/30/2023 Mood disorder (HCC) [F39] 09/13/2022 06/28/2023 Diagnosed: 05/30/2023 Difficulty sleeping [G47.9] 05/30/2023 Diagnosed: 05/30/2023 Encounter Status:Closed by JUDY GMAEZ on 07/16/24[facility] reportOrdered By: Олег Marcus on 03-01-1546Iazdl reportMER[facility] Main [address] [address] XRay Report Signed Patient: Yolanda Aparicio MR#: [id number] : 1995 Acct:[id number] Age/Sex: 28 / F ADM Date: 5 Loc: [id number] [facility]: Rajni Decker UTILITY SYSTEM REPAIRER Copies to: Rajni Decker APRN~ Ordering Provider: Rajni Decker APRN Date of Service: 07/13/24 XR/XR shoulder RT min 2V*: M25.511 - Pain in right shoulder 3 views right shoulder plain film HISTORY: Right shoulder pain COMPARISON: None ACUTE FINDINGS: None DEGENERATIVE CHANGE: Unremarkable SOFT TISSUE FINDINGS: Unremarkable JOINT EFFUSION: None POSTOP CHANGES: None BONY MINERALIZATION: Adequate XR/XR shoulder RT min 2V* IMPRESSION: No acute findings. Impression dictated by: Олег Marcus M.D. 07/13/2024 1:28 PM Dictation Location: [place] [address] Transcribed By: [facility] 07/13/24 1328 Dictated By: Олег Marcus DO 07/13/24 1322 Signed By: 07/13/24 1328 [facility] HospitalXR [facility] min 2V*on [id number] shoulder RT min 2V*[address] [address] XRay Report Signed Patient: Yolanda Aparicio MR#: [id number] : 1995 Acct:[id number] Age/Sex: 28 / F ADM Date: 07/13/24 Loc: [id number] Room: Type: DEP CLI Attending Dr: Rajni Decker APRN Copies to: Rajni Decker APRN Ordering Provider: Rajni Decker APRN Date of Service: 07/13/24 XR/XR shoulder RT min 2V*: M25.511 - Pain in right shoulder 3 views right shoulder plain film HISTORY: Right shoulder pain COMPARISON: None ACUTE FINDINGS: None DEGENERATIVE CHANGE: Unremarkable SOFT TISSUE FINDINGS: Unremarkable JOINT EFFUSION: None POSTOP CHANGES: None BONY MINERALIZATION: Adequate XR/XR shoulder RT min 2V* IMPRESSION: No acute findings. Impression dictated by: Олег Marcus M.D. 07/13/2024 1:28 PM Dictation Location: [facility]-- Transcribed By: [facility] 07/13/24 1328 Dictated By: Олег Marcus DO 07/13/24 1322 Signed By: 07/13/24 1328[facility] Physician GroupAmbulatory Visit Summaryon 72-87-4117Virdoivump Visit SummaryAmbulatory Visit Summary YOLANDA APARICIO :1995 Visit Date:06/30/2024 Ambulatory Visit Instructions Your Diagnosis Urinary frequency Your Care Team Attending Physician - Alanis Andrews Primary Care Physician - MISHA SY DO This Is Your Medications List alprazolam (alprazolam 0.5 mg Tab) fluticasone nasal (fluticasone 0.05 mg/inh Nasal [place]) gabapentin (gabapentin 100 mg Cap) gabapentin (gabapentin 300 mg Cap) meclizine (meclizine 25 mg Tab) metoprolol (Lopressor 25 mg oral tablet) promethazine (Phenergan 25 mg Supp) tizanidine (tiZANidine 4 mg Tab) Procedures Performed None. Discharge Vitals Temperature (Oral) 37 ???C Heart Rate (Peripheral) 66 Respiratory Rate 18 Blood Pressure 122/80 Height 165 cm Height 65 in Weight 82.2 kg Weight 181.22 lb BMI 30.19 Medications What How Much When Instructions Unchanged alprazolam (alprazolam 0.5 mg Tab) 1 Tablets By Mouth 3 times a day as needed for for anxiety Unchanged fluticasone nasal (fluticasone 0.05 mg/ inh Nasal [place]) 2 Sprays Nasal Inhalation Every day each nostril Unchanged gabapentin (gabapentin 100 mg Cap) 2 Capsules By Mouth 4 times a day Unchanged gabapentin (gabapentin 300 mg Cap) 1 Capsules By Mouth 3 times a day Unchanged meclizine (meclizine 25 mg Tab) 1 Tablets By Mouth 3 times a day as needed for for dizziness Unchanged metoprolol (Lopressor 25 mg oral tablet) Unchanged promethazine (Phenergan 25 mg Supp) 1 Suppositories By rectum Every 6 hours as needed forNausea/Vomiting Unchanged tizanidine (tiZANidine 4 mg Tab) 1 Tablets By Mouth Every 8 hours Allergies Keflex (GI upset, Vomiting) Augmentin (Dizziness) Bactrim (Nausea) Lexapro (Dizzy) Problems Ongoing - Any problem that you are currently receiving treatment for. Smoker Historical - Any problem that you are no longer receiving treatment for. None Yeast infection Patient Survey You may receive a survey via text or e-mail asking about your office visit. Please share your experience with us by completing your survey. We appreciate your feedback and thank you for choosing us for your care. [facility] Office/Clinic Noteon [id number] Medicine Office/Clinic NoteFami Medicine Office/Clinic Note Chief Complaint UTI symptoms HPI Staff 28 year old female presents with dizziness, nausea, urinary frequency, some back pain that started sometime last week. Pt states she has been feeling feverish. Pt states she has not tried anything over the counter. History of Present Illness I have reviewed and verified the staff HPI to be accurate for this encounter. Portions of this record have been created with voice recognition software. Occasional wrong-word or???affcc-w-yovw??? substitutions may have occurred due to the inherent limitations of voice recognition software. 28-year-old female with verbalized history of long COVID, POTS presents with concern for UTI. Patient states she has felt nauseous, a little bit dizzy and had some increased frequency of urination and some low back pain that started sometime last week. She denies any fever or chills. Patient has not noticed any blood in her urine. Patient states she feels like sometimes she might feel feverish but has not taken her temperature. She has not taken anything bgsr-ojd-oglzrvi for her symptoms. Patient denies being sexually active therefore cannot be . Since she is not sexually active there is no chance of sexually transmitted infections either. Patient does report history of many chronic diseases since she had COVID. Patient states she has been using several medications fornausea including Reglan and Zofran without relief. Patient states she just stopped taking vgnxywlsb615 mg XR. Patient states she took it for a week but it completely wiped out her appetite so she stopped it. Patient reports being under a lot of stress and has gotten prescribed benzodiazepines fromher primary care to help her deal with her chronic life stresses. Review of Systems PHQ Score Initial Depression Screen Score: 0 SCORE ROS negative unless otherwise stated in HPI. Physical Exam Vitals & Measurements T: 37 ???C(Oral) HR: 66(Peripheral) RR: 18 BP: 122/80 SpO2: 98% HT: 65 in HT: 165 cm WT: 181.22 lb WT: 82.2 kg BMI: 30.19 General: Well developed, well nourished, in no acute distress Eyes: Pupils equal, round, and reactive to light. Conjunctivae and sclerae normal, and extraocular movements intact Ears: No deformity or lesion of external ear. Canals and TM appear normal bilaterally. TM???s intact, not inflamed, with normal light reflex. Hearing grossly normal to conversational speech Nose: No deformity, discharge, inflammation, or lesions Mouth: Mucous membranes moist. Normal oropharynx, and posterior pharynx without lesions or exudates. Tongue normal Neck: no adenopathy Lungs: clear to auscultation throughout, no wheezing, no rales. No respiratory distress Cardio: regular rate and rhythm, no murmur Abdomen: soft, nondistended, BS normal and active x4. Denies tenderness. No guarding or grimacing Musculoskeletal: No deformity or scoliosis noted. Normal range of motion. Joints normal. No erythema, edema, effusion, or ecchymosis Extremity: not assessed Neurologic: not assessed Skin: not assessed Mental Status: Alert and oriented x3. Normal mood and affect Assessment/Plan Of note there was an ER visit note from February 17, 2024 for similar complaints. Urinalysis was unremarkable and normal. No culture will be sent. Patient reports being under some emotional stress and discussed of the symptoms could be related to her emotional stress. Provider discussed with her other concerns for symptoms including kidney stone which she denies ever having in the past. I feel if she had a kidney stone there would be some indicator on the urinalysis. She denies any sexual activity therefore I did not do a test or STI testing. She denies any vaginaldischarge. She reports that she has medications for nausea and declined offer for those. Provider encouraged her to continue monitor symptoms and return for further evaluation if symptoms progress orworsen. Also discussed with patient speaking with a counselor for life stressors and patient statesshe already sees a counselor. Patient verbalized understanding and agreement with this plan. 1. Urinary frequency (R35.0: Frequency of micturition) As above. Ordered: Urnls Dip Stick Auto w/o Microscopy POC 41747 2. Nausea (R11.0: Nausea) As above. Declined offer for antiemetic. Follow-up With When Contact Information KERRIE BROOKS, MISHA Ge, [facility] [address] [facility] [address] [place] [address]- Additional Instructions: Patient Education Urinary Frequency, Adult Problem List/Past Medical History Ongoing Smoker Historical None Yeast infection Procedure/Surgical History None. Medications alprazolam 0.5 mg Tab, 0.5 mg= 1 tab(s), Oral, TID, PRN fluticasone 0.05 mg/inh Nasal [place], 2 spray(s), Nasal, Daily gabapentin 100 mg Cap, 200 mg= 2 cap(s), Oral, QID gabapentin 300 mg Cap, 300 mg= 1 cap(s), Oral, TID Lopressor 25 mg oral tablet meclizine 25 mg Tab, 25 mg= 1 tab(s), O (more content not included)...Normal [facility] HospitalComment on above:Result Comment: Electronically Signed By: Alanis Andrews\.br\Date and Time Signed: 06/30/24 19:25 LORENA on [id number] ([facility]) YOLANDA APARICIO Donald ([id number]) 1995 F Date Time Provider Department 06/06/24 JUDY GAMEZ [facility] During your visit today, we recorded the following information about you: Judy GamezMICHAEL 06/06/2024 11:29 AM Addendum Phoned pt regarding missed appointment and Amanda Huff DBA [employer] message. Added new visit for 1130 today. Allergies As of Date: 06/06/2024 Noted Allergy Reaction MODAFINIL 05/24/2022 1 - Mental Status Change AMOXICILLIN-POT CLAVULANATE 11/11/2020 14 - Other: See Comments Comments: extreme dizziness BACTRIM (SULFAMETHOXAZOLE-TRIMETH*11/23/2017 8 - GI Upset CEPHALEXIN 11/11/2020 16 - Unknown CIPROFLOXACIN 01/31/2020 16 - Unknown LEXAPRO (ESCITALOPRAM) 11/23/2017 8 - GI Upset ORANGE JUICE 11/23/2017 2 - Rash SERTRALINE 11/11/2020 1 - Mental Status Change 14 - Other: See Comments TRIMETHOPRIM 03/25/2018 14 - Other: See Comments Date Reviewed: 06/05/2023 Reviewed by: Wilma Chong RN - Fully Assessed Primary Visit Diagnosis:PTSD (post-traumatic stress disorder) [F43.10] Order(s):PROVIDER ORDERED FOLLOW UP [[id number]] Order #: [id number]: 1 FUTURE Prescriptions as of 06/06/2024 - naltrexone HCl (NALTREXONE ORAL) Take 0.75 mg by mouth once daily. - nitroglycerin sublingual (NITROQUICK) 0.3 mg SL tablet Dissolve 1 tablet under the tongue one time only for 1 dose. To be administered in Radiology for CTA exam - tiZANidine (ZANAFLEX) 4 mg tablet take 1 tablet by mouth everyday at bedtime - gabapentin (NEURONTIN) 100 mg capsule Take 2 capsules by mouth once daily. (taken with 300mg capsule) - gabapentin (NEURONTIN) 300 mg capsule 1 capsule at bedtime (taken with two 100 mg capsules) - hydrOXYzine HCl (ATARAX) 10 mg tablet Take 1 tablet by mouth three times daily as needed. - metoprolol tartrate, short acting, (LOPRESSOR) 25 mg tablet Take 25 mg by mouth twice daily. 12.5 mg in the morning and 25 mg in the evening - sodium chloride 1 g tab Take 2 g by mouth three times daily. 1 gram in morning and 1 gram in evening - fluticasone (FLONASE) 50 mcg/actuation nasal spray Use 2 Sprays in each nostril once daily. - acetaminophen (ACETAMINOPHEN EXTRA STRENGTH) 500 mg tablet Take 500 mg by mouth every 6 hours as needed for pain. - meclizine (ANTIVERT) 25 mg tab Take 50 mg by mouth three times daily as needed (TID PRN). As needed TID - ondansetron orally disintegrating (ZOFRAN ODT) 4 mg disintegrating tablet Take 4 mg by mouth every 6 hours as needed for nausea/vomiting. - ibuprofen (MOTRIN) 200 mg tablet Take 200 mg by mouth every 6 hours as needed for pain. - acetaminophen (TYLENOL) 500 mg tablet Take 500 mg by mouth as needed. Problem List As Of Date 06/06/2024 Noted Resolved COVID-19 [U07.1] 02/10/2020 10/25/2021 History of tobacco use [Z87.891] 07/11/2017 02/01/2021 Personal history of COVID-19 [Z86.16] 03/08/2020 Intractable tension-type headache [G44.201] 04/08/2018 Hypermobility of joint [M24.9] 04/07/2018 02/01/2021 Gait disturbance [R26.9] 09/26/2017 02/01/2021 Cerebrovascular disease [I67.9] 04/08/2018 Facial paresthesia [R20.2] 07/12/2017 POTS (postural orthostatic tachycardia syndrome*02/01/2021 Long COVID [U09.9] 02/01/2021 Cognitive communication deficit [R41.841] 02/10/2021 Mixed obsessional thoughts and acts [F42.2] 12/26/2021 PTSD (post-traumatic stress disorder) [F43.10] 12/26/2021 Obesity, Class I, BMI 30-34.9 [E66.811] 01/24/2022 Chronic fatigue syndrome [G93.32] 10/11/2022 Activity intolerance [R68.89] 11/23/2022 Impaired functional mobility, balance, gait, an*11/23/2022 Headache, unspecified [R51.9] 05/30/2023 Diagnosed: 05/30/2023 Mood disorder (HCC) [F39] 09/13/2022 06/28/2023 Diagnosed: 05/30/2023 Difficulty sleeping [G47.9] 05/30/2023 Diagnosed: 05/30/2023 Encounter Status:Closed by JUDY GAMEZ on 06/06/24[facility] Basophils Auto (Bld) [#/Vol]on 00-57-2351Xbjpdvjkb (Bld) [#/Vol]Automated basophil count0.0-0.1FMetroHealth Parma Medical CenterBasophils (Bld) [#/Vol]0.0 10 3/uL0.0-0.1FMetroHealth Parma Medical CenterBasophils/100 WBC Auto (Bld)on 97-20-4991Vflwzhses/100 WBC (Bld)Automated basophil %0.2-2.0[facility] HospitalBasophils/100 WBC (Bld)0.3 %0.2-2.0[facility] Clinical Summaryon 61-82-9100VS Clinical SummaryED Clinical Summary [place] [id number] ED Clinical Summary Person Information Name: YOLANDA APARICIO/[facility] Age: 28 Years : 1995 Sex: Female Language: Uzbek PCP: MISHA SY DO Marital Status: Single Visit Id: Visit Reason: ABD PAIN, N/V, DIZZINESS, HOT FLASHES Speciality: Acuity: Enc Type: Emergency Med Service: Emergency Arrival: 06/02/2024 19:43:26 Discharge: 06/02/2024 20:27:27 LOS: 000 00:44 Checkin: 06/02/2024 19:43:26 Checkout: 06/02/2024 20:27:27 Dispo Type: Left Without Being Seen EVENTS: Event Name Event Status Request Date/Time Start Date/Time Complete Date/Time Arrive Complete 06/02/2024 19:43:26 06/02/2024 19:43:26 06/02/2024 19:43:26 Document Home Meds Request 06/02/2024 19:43:26 Triage Request 06/02/2024 19:43:26 Discharge Complete 06/02/2024 20:27:49 06/02/2024 20:27:49 06/02/2024 20:27:49 Transfer Complete 06/02/2024 20:27:49 06/02/2024 20:27:49 06/02/2024 20:27:49 ADDRESS: [address] [facility] [id number] PHYS DOC NOTES: MEDICAL INFORMATION: Prescriptions Given: Medications to Continue with No Changes Other Medications albuterol (Ventolin HFA 90 mcg/inh Aerosol) 1 Puffs Inhalation Once as needed for wheezing. meclizine (meclizine 25 mg Tab) 1 Tablets By Mouth 3 times a day as needed for dizziness. Refills: 0. promethazine (Phenergan 25 mg Supp) 1 Suppositories By rectum every 6 hours as needed Nausea/Vomiting. Refills: 0. 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 It is important that you follow up with a doctor, nurse practitioner,or physician???s export sales assistant for ongoing care. If your symptoms become worse or you do not improve asexpected and you are unable to reach your usual health care provider, you should return to the Emergency Department. We are available 24 hours a day. YOLANDA APARICIO has been given the following list of patient education materials, prescriptions andfollow-up instructions: Follow-up Instructions: In the event that this physician does not participate in your insurance network, please consult with your insurance company to find a nearby participating provider. Patient Education Materials: A MESSAGE TO ALL PATIENTS REGARDING OPIOIDS PRESCRIPTION OPIOIDS: WHAT YOU NEED TO KNOW Prescription opioids can be used to help relieve pjahiuav-ys-xrcyym pain and are often prescribed following a surgery or injury, or for certain health conditions. These medications can be an important part of the treatment but also come with serious risks. It is important to work with your healthcare provider to make sure you are getting the safest, most effective care. WHAT ARE THE RISKS AND SIDE EFFECTS OF OPIOID USE? Prescription opioids carry serious risks of addiction and overdose, especially with prolonged use. An opioid overdose, often marked by slowed breathing, can cause sudden . The use of prescription opioids can have a number of side effects as well, even when taken as directed: ??? Tolerance???meaning you might need to take more of the medication for the same pain relief ??? Physical dependence???meaning you have symptoms of withdrawal when a medication is stopped ??? Increased sensitivity to pain ??? Constipation ??? Nausea, vomiting, and dry mouth ??? Sleepiness and dizziness ??? Confusion ??? Depression ??? Low levels of testosterone that can result in lower sex drive, energy, and strength ??? Itching and sweating RISKS ARE GREATER WITH: ??? History of drug misuse, substance use disorder, or overdose ??? Mental health conditions (such as depression or anxiety) ??? Sleep apnea ??? Older age (65 years and older) ??? Avoid alcohol while taking prescription opioids. Also, unless specifically advised by your health care provider, medications to avoid include: ??? Benzodiazepines (such as Xanax or Valium) ??? Muscle relaxants (such as Soma or Flexeril) ??? Hypnotics (such as Ambien or Lunesta) ??? Other prescription opioids KNOW YOUR OPTIONS Talk to your health care provider about ways to manage your pain that don???t involve prescription opioids. Some of these options may actually work better and have fewer risks and side effects. Options may include: ??? Pain relievers such as acetaminophen, ibuprofen, and naproxen ??? Some medication that are also used for depression or seizures ??? Physical therapy and exercise ??? Cognitive behavioral therapy, a psychological, goal-directed approach, in which patients learn how to modify physical, behavioral, and emotional triggers of pain and stress. IF YOU ARE PRESCRIBED OPIOIDS FOR PAIN: ??? Never take opioids in greater amounts or more often than prescribed. ??? Follow up with your primary health care provider. o Work together to create a plan on how to manage your pain. o Talk about ways to help manage your pain that don???t involve prescription opioids. o Talk about any and all concerns and side effects. ??? Help prevent misuse and abuse o Never sell or share prescription opioids. o Never use another person???s prescription opioids. ??? Store prescription opioids in a secure place and out of reach of others (this may include visitors, children, friends, and family). ??? Safely dispose of unused prescription opioids: Find your community drug take-back program or your pharmacy mail-back program, or flush them down the toilet, following guidance from the Food and Drug Administration (www.fda.gov/Drugs/ResourcesForYou). ??? Visit www.cdc.gov/drugoverdose to learn about the risks of opioids abuse and overdose. ??? If you believe you may be struggling with addiction, tell your health resident care aid and askfor guidance or call [facility]???S National Helpline at 6-383-009-SSSQ. v Source: US Department of Health and Human Services/Center for Disease Control & Prevention [facility] (more content not included)...NormalBrecksville [facility] / [facility] Eosinophils/100 WBC Auto (Bld)on 86-39-9986Gbebyytljsz/100 WBC (Bld)Automated eosinophil %0.9-7.0[facility]rington HospitalEosinophils/100 WBC (Bld)2.4 %0.9-7.0[facility]rington HospitalErythrocyte distribution width Auto (RBC) [Ratio]on 75-58-0745Refdigsperz distribution width (RBC) [Ratio] Erythrocyte distribution width [Ratio] by Automated count11.0-15.0[facility]rington HospitalErythrocyte distribution width (RBC) [Ratio]12.7 % 11.0-15.0[facility]rington HospitalEstimated glomerular filtration rate (GFR) non- Americanon 97-30-9528XSQ/1.73 sq M.predicted among non-blacks MDRD (S/P/Bld) [Vol rate/Area]Estimated glomerular filtration rate (GFR) non- >=60 mL/min/1.73m 2FMetroHealth Parma Medical CenterGFR/1.73 sq M.predicted among non-blacks MDRD (S/P/Bld) [Vol rate/Area]mL/min/{1.73_m2}>=60 mL/min/1.73m 2FMetroHealth Parma Medical CenterGlobulin Calc (S) [Mass/Vol]on 42-78-0119Pdcjxjth (S) [Mass/Vol]Serum globulin measurement by calculation (mass/volume)[facility] HospitalGlobulin (S) [Mass/Vol]3.5 g/dL [facility] HospitalHCG ( test) IA.rapid Ql (U)on 48-26-8763PHT ( test) Ql (U)Urine human chorionic gonadotropin (hCG) detection by immunoassayNEGOhioHealth Pickerington Methodist HospitalHCG ( test) Ql (U)NegativeNEGATIVECherrington HospitalHematocrit Auto (Bld) [Volume fraction]on 43-66-8393Xnqqiroksd (Bld) [Volume fraction]Hematocrit [Volume Fraction] of Blood by Automated count36.0-48.0[facility]rington HospitalHematocrit (Bld) [Volume fraction]38.5 %36.0-48.0[facility] HospitalHemoglobin [Mass/volume] in Bloodon 65-54-6817Cizlkpbdmf (Bld) [Mass/Vol]Hemoglobin [Mass/volume] in Blood12.0-16.0[facility] HospitalHemoglobin (Bld) [Mass/Vol]12.9 g/dL12.0-16.0[facility] HospitalLaboratory - Chemistry and Chemistry - challengeon 85-46-8369Elwqtixsc Ql (U)NegativeNEGATIVECherrington HospitalGlucose (U) [Mass/Vol] NegativeNEGATIVECherrington HospitalKetones Ql (U)TRACE mg/dL AbnormalNEGATIVECherrington HospitalpH (U)7.5 [pH]5.0-9.0[facility] State Health Systempecific gravity (U) [Rel density]1.0201.005-1.025 [facility] HospitalUrobilinogen Qn (U)0.2 {Essence'U}/dL0.2-1.0 [facility] HospitalAlbumin [Mass/Vol]3.7 g/dL3.4-5.0[facility] HospitalALP [Catalytic activity/Vol]74 U/U13-108RppfoxwfeCherrington HospitalALT [Catalytic activity/Vol]15 U/Z84-20CgctzsgwbCherrington HospitalAST [Catalytic activity/Vol]13 U/RIty53-70ZsdfrghqqCherrington HospitalBilirubin [Mass/Vol]0.3 mg/dL0.2-1.0[facility] HospitalCalcium [Mass/Vol]9.5 mg/dL8.5-10.1FMetroHealth Parma Medical Center Chloride [Moles/Vol]104 mmol/J40-509PqgjpzmchCherrington HospitalCO2 [Moles/Vol]28.1 mmol/L21.0-32.0[facility] HospitalCreatinine [Mass/Vol]0.91 mg/dL0.55-1.02C[facility]rington HospitalGFR/1.73 sq M.predicted MDRD (S/P/Bld) [Vol rate/Area]mL/min/{1.73_m2}>=60 mL/min/1.73m 2 [facility] HospitalGlucose [Mass/Vol]102 mg/bN03-417ZjlkvhcgrCherrington HospitalLipase [Catalytic activity/Vol]25.0 U/L16.0-77.0[facility] HospitalPotassium [Moles/Vol]3.4 mmol/LLow3.5-5.1FMetroHealth Parma Medical CenterProtein [Mass/Vol]7.2 g/dL6.4-8.2FCleveland Clinic Mercy Hospitalodium [Moles/Vol]141 mmol/P503-302NxrxqdczzCherrington HospitalUrea nitrogen [Mass/Vol]9.0 mg/dL7.0-18.0[facility] Urea nitrogen/Creatinine [Mass ratio]9.9 mg/mgCherrington Hospital Laboratory - Hematology and Cell countson 47-61-5025Hpbrakoc granulocytes/100 WBC (Bld)0.3 %0.0-0.5FMetroHealth Parma [facility] CenterLaboratory - Specimen informationon [id number] (U)CLEARCLEARFMetroHealth Parma Medical CenterColor (U)LT. YELLOWYELLOWCherrington HospitalLaboratory - Urinalysison 93-87-4507Czuirnrde esterase Test strip Ql (U)NegativeNEGATIVE [facility] HospitalMucus Ql (Urine sed)NONE SEENNONE SEENCherrington HospitalNitrite Ql (U)NegativeNEGATIVECherrington HospitalProtein Ql (U)NegativeNEG/TRACECherrington HospitalLeukocytes [#/volume] corrected for nucleated erythrocytes in Blood by Automated counon 27-22-3296XNI corrected for nucl RBC Auto (Bld) [#/Vol]Leukocytes [#/volume] corrected for nucleated erythrocytes in Blood by Automated counHigh4.0-11.0 [facility] HospitalWBC corrected for nucl RBC Auto (Bld) [#/Vol] 11.6 10 3/uLHigh4.0-11.0Cherrington HospitalLymphocytes Auto (Bld) [#/Vol]on 33-27-1947Omwoyzpfnvu (Bld) [#/Vol]Lymphocytes [#/volume] in Blood by Automated count1.2-3.8Cherrington HospitalLymphocytes (Bld) [#/Vol] 2.8 10 3/uL1.2-3.8Cherrington HospitalLymphocytes/100 WBC Auto (Bld)on 80-38-2882Ecyryzejqpx/100 WBC (Bld)Lymphocytes/100 leukocytes in Blood by Automated count20.5-60.0C[facility]rington HospitalLymphocytes/100 WBC (Bld)24.0 %20.5-60.0C[facility]rington HospitalMCH Auto (RBC) [Entitic mass]on 28-67-5452SDJ (RBC) [Entitic mass]MCH [Entitic mass] by Automated count 26.7-34.0[facility] HospitalH (RBC) [Entitic mass]27.7 pg 26.7-34.0C[facility]rington HospitalMCHC Auto (RBC) [Mass/Vol]on 17-71-4800BXVL (RBC) [Mass/Vol]MCHC [Mass/volume] by Automated count29.9-35.2 [facility] HospitalHC (RBC) [Mass/Vol]33.5 g/dL29.9-35.2 [facility] HospitalMCV Auto (RBC) [Entitic vol]on 13-79-4392QBH (RBC) [Entitic vol]MCV [Entitic volume] by Automated count81.0-99.0[facility] HospitalV (RBC) [Entitic vol]82.6 fL81.0-99.0C[facility] HospitalMonocytes Auto (Bld) [#/Vol]on 45-73-5470Qeqdbcfir (Bld) [#/Vol] Automated blood monocyte count0.3-0.8C[facility]rington HospitalMonocytes (Bld) [#/Vol]0.7 10 3/uL0.3-0.8C[facility]rington HospitalMonocytes/100 WBC Auto (Bld)on 76-76-2525Yhjoftogl/100 WBC (Bld)Automated monocyte %1.7-12.0 [facility] HospitalMonocytes/100 WBC (Bld)6.4 %1.7-12.0C[facility]rington HospitalNeutrophils Auto (Bld) [#/Vol]on 56-84-4643Sscurpvbbje (Bld) [#/Vol]Neutrophils [#/volume] in Blood by Automated countHigh1.4-6.5 [facility] HospitalNeutrophils (Bld) [#/Vol]7.8 10 3/uLHigh1.4-6.5 [facility] HospitalNeutrophils/100 WBC Auto (Bld)on 06-02-2024 Neutrophils/100 WBC (Bld)Automated neutrophil %43.0-75.0C[facility]rington HospitalNeutrophils/100 WBC (Bld)66.6 %43.0-75.0C[facility]rington HospitalNo Panel Informationon 87-39-1336Qezze BacteriaNONE SEEN #/HPFNONE SEEN [facility] HospitalUrine Culture ReflexedNOCherrington HospitalUrine Occult BloodNegativeNEGATIVECherrington HospitalUrine Other CastsNONE SEEN #/LPFNONE SEENCherrington Hospital Urine Other CrystalsNone Seen #/HPFNone SeenCherrington Hospital Urine RBCNONE SEEN #/HPF0-2FMetroHealth Parma Medical CenterUrine Squamous Epithelial CellsFEW #/LPFAbnormalNONE/RARECherrington HospitalUrine WBC0-2 #/HPFAbnormalNONE SEENCherrington HospitalEosinophils # (Auto)0.3 10 3/uL0.0-0.7FMetroHealth Parma Medical CenterImmature Granulocyte # (Auto)0.03 10 3/uL0.00-0.03Cherrington HospitalPlatelet mean volume Auto (Bld) [Entitic vol]on 36-61-3996Gsrdyxyx mean volume (Bld) [Entitic vol] Platelet mean volume [Entitic volume] in Blood by Automated count9.5-13.5 [facility] HospitalPlatelet mean volume (Bld) [Entitic vol]10.5 fL 9.5-13.5FMetroHealth Parma Medical CenterPlatelets Auto (Bld) [#/Vol]on 59-70-7308Nlssaduzf (Bld) [#/Vol]Platelets [#/volume] in Blood by Automated dirxx145-138UnpwygecsCherrington HospitalPlatelets (Bld) [#/Vol]316 10 3/uL 150-450Cherrington HospitalRBC Auto (Bld) [#/Vol]on 24-16-2332SUG (Bld) [#/Vol]Erythrocytes [#/volume] in Blood by Automated count4.20-5.40 [facility] HospitalRBC (Bld) [#/Vol]4.66 10 6/uL4.20-5.40[facility] Systemerum or plasma albumin/globulin mass ratioon 06-02-2024 Albumin/Globulin [Mass ratio]Serum or plasma albumin/globulin mass ratio Cher[facility] HospitalAlbumin/Globulin [Mass ratio]1.1 {ratio} [facility] Systemerum or plasma anion gap determinationon 42-49-6700Bdora gap [Moles/Vol]Serum or plasma anion gap determinationCherrington HospitalAnion gap [Moles/Vol]12.3 mmol/LFMetroHealth Parma Medical CenterLaboratory - Chemistry and Chemistry - challengeon 05-31-2024 Bilirubin Ql (U)NegativeCherrington HospitalGlucose (U) [Mass/Vol] NegativeCherrington HospitalKetones Ql (U)NegativeCherrington HospitalpH (U)6.0 [pH][facility] Health Systempecific gravity (U) [Rel density]1.020Cherrington HospitalUrobilinogen (U) [Mass/Vol]0.2 mg/dLCherrington HospitalLaboratory - Specimen informationon 63-87-3656Qcrlcvdzne (U)cloudyCherrington Hospital Color (U)yellowCherrington HospitalLaboratory - Urinalysison [id number] esterase Test strip Ql (U)NegativeCherrington HospitalNitrite Ql (U)NegativeCherrington HospitalProtein Ql (U) NegativeCherrington HospitalNo Panel Informationon 78-16-0242Cdrik Occult BloodNegativeCherrington HospitalUrine Cultureon 05-31-2024 Bacteria identified Cx Nom (U)15,000 colonies/ml mixed bacterial skin contaminants 2 Days PERFORMED BY: [place] [address] PATHOLOGIST PASSENGER [employer] INSPECTOR AVA LEWIS M.D.NormalThe Critical Access Hospital Physician GroupComment on above: Performed By: #### B12, TSH3, CBC, CMP, [id number] #### [facility] [address] [place] [address] USAUrine cultureOrdered By: Rajni Decker on 14-65-4959Orevpclm identified Cx Nom (U)Urine cultureCherrington HospitalBacteria identified Cx Nom (U)2 DaysCherrington HospitalAmbulatory Visit Summaryon [id number] Visit SummaryAmbulatory Visit Summary YOLANDA APARICIO :1995 Visit Date:05/05/2024 Ambulatory Visit Instructions Your Diagnosis Acute frontal sinusitis BMI 32.0-32.9,adult Your Care Team Attending Physician - JEAN MARIE MEDINA PA-C Primary Care Physician - MISHA SY DO This Is Your Medications List amoxicillin-clavulanate (Augmentin 875 mg oral tablet) Contact prescribing physician if questions or concerns Misc Prescription (SEMAGLUTIDE 2.5 MG/ML VIAL) albuterol (Ventolin HFA 90 mcg/inh Aerosol) cetirizine (cetirizine 10 mg Tab) diazepam (Valium 5 mg Tab) fluticasone nasal (fluticasone 0.05 mg/inh Nasal [place]) gabapentin (gabapentin 100 mg Cap) gabapentin (gabapentin 300 mg Cap) meclizine (meclizine 25 mg Tab) metoprolol (Lopressor 25 mg oral tablet) promethazine (Phenergan 25 mg Supp) tizanidine (tiZANidine 4 mg Tab) Procedures Performed None. Discharge Vitals Temperature (Tympanic) 37.2 ???C Heart Rate (Peripheral) 73 Blood Pressure 112/78 Height 164 cm Height 65 in Weight 86.8 kg Weight 191.361 lb BMI 32.27 What to do next You Need to Schedule the Following Appointments Follow Up with MISHA SY DO, FAM When: Where: [facility] [address] [address]- Medications What How Much When Why Instructions New amoxicillin-clavulanate (Augmentin 875 mg oral tablet) 1 Tablets By Mouth Every 12 hours Acute frontal sinusitis BMI 32.0-32.9,adult Duration: 10 Days Pickup at [facility]/pharmacy #[id number] Unchanged albuterol (Ventolin HFA 90 mcg/ inh Aerosol) 1 Puffs Inhalation Once as needed for for wheezing Contact prescribing physician if questions or concerns Unchanged cetirizine (cetirizine 10 mg Tab) 1 Tablets By Mouth Every day Contact prescribing physician if questions or concerns Unchanged diazepam (Valium 5 mg Tab) 1 Tablets By Mouth 2 times a day as needed for Dizziness Ordered by another provider. Contact prescribing physician if questions or concerns Unchanged fluticasone nasal (fluticasone 0.05 mg/ inh Nasal [place]) 2 Sprays Nasal Inhalation Every day each nostril Contact prescribing physician if questions or concerns Unchanged gabapentin (gabapentin 100 mg Cap) 2 Capsules By Mouth 4 times a day Contact prescribing physician if questions or concerns Unchanged gabapentin (gabapentin 300 mg Cap) 1 Capsules By Mouth 3 times a day Contact prescribing physician if questions or concerns Unchanged meclizine (meclizine 25 mg Tab) 1 Tablets By Mouth 3 times a day as needed for for dizziness Contact prescribing physician if questions or concerns Unchanged metoprolol (Lopressor 25 mg oral tablet) Contact prescribing physician if questions or concerns Unchanged Misc Prescription (SEMAGLUTIDE 2.5 MG/ ML VIAL) 0 Contact prescribing physician if questions or concerns Unchanged promethazine (Phenergan 25 mg Supp) 1 Suppositories By rectum Every 6 hours as needed forNausea/Vomiting Contact prescribing physician if questions or concerns Unchanged tizanidine (tiZANidine 4 mg Tab) 1 Tablets By Mouth Every 8 hours Contact prescribing physician if questions or concerns Pharmacy Information [facility]/pharmacy #[id number]: [address] [place], [place] [id number] [phone] Allergies Augmentin (Dizziness) Bactrim (Nausea) Lexapro (Dizzy) Problems Ongoing - Any problem that you are currently receiving treatment for. Smoker Historical - Any problem that you are no longer receiving treatment for. None Yeast infection Patient Survey You may receive a survey via text or e-mail asking about your office visit. Please share your experience with us by completing your survey. We appreciate your feedback and thank you for choosing us for your care. Education Materials BMI for Adults Body mass index (BMI) is a number found using a person's weight and height. BMI can help tell how much of a person's weight is made up of fat. BMI does not measure body fat directly. It is used instead of tests that directly measure body fat, which can be difficult and expensive. What are BMI measurements used for? BMI is useful to: ??? Find out if your weight puts you at higher risk for medical problems. ??? Help recommend changes, such as in diet and exercise. This can help you reach a healthy weight. BMIscreening can be done again to see if these changes are working. How is BMI calculated? Your height and weight are measured. The BMI is found from those numbers. This can be done with U.S. or metric measurements. Note that charts and online BMI calculators are available to help you findyour BMI quickly and easily without doing these calculations. To calculate your BMI in U.S. measurements: 1. Measure your weight in pounds (lb). 2. Multiply the number of pounds by 703. ??? So, for an adult who weighs 150 lb, multiply that number by 703: 150 x 703, which equals 105,450. 3. Measure your height in inches. Then multiply that number (more content not included)...[facility] Medicine Office/Clinic Note on 39-87-5952Phxvpf Medicine Office/Clinic NoteD[facility]/Clinic Note Chief Complaint sinus congestion HPI Staff 28 year old female presents with sinus congestion, sinus drainage, fatigue, dizziness for the past 3-4 days states she usually gets dizzy when she has a sinus infection History of Present Illness Reviewed and agree with above documented HPI by director of graduate medical education. Portions of this record may have been created with voice recognition artificial intelligence software, specifically [employer], i[employer]ime[employer]ighter and or Medical [employer]erral [employer]. Substitutions may have occurred due to the inherent limitations of voice recognition and artificial intelligence software. Patient is a 28-year-old female who presents to [facility], for sinus headache, sinus pressure, postnasal drip, bilateral ear pressure. Patient states she has a history of sinus infection, symptoms started 2 weeks ago, worsening symptoms past 2 days, has been having postnasal drip, states whenshe eats and drink she has a sense of taste and smell intact, has some discomfort swallowing. Patient not concerned about influenza or COVID-19. Patient states no one else at home is ill. Patient denies having any worsening headache, different type headache, nausea vomiting, high fevers, chills, cough, chest pain, shortness of breath, or fatigue. Review of Systems PHQ Score Initial Depression Screen Score: 0 SCORE Physical Exam Vitals & Measurements T: 37.2 ???C(Tympanic) HR: 73(Peripheral) BP: 112/78 SpO2: 98% HT: 164 cm HT: 65 in WT: 191.361 lb WT: 86.8 kg BMI: 32.27 General: Well developed, well nourished, in no acute distress. Patient does not appear ill or septic. Patient answers questions appropriately and in complete sentences. Patient follows commands appropriately. Head: Normocephalic/atraumatic positive bilateral frontal sinus tenderness and pressure with palpation. No maxillary sinus tenderness. No facial swelling or cellulitis noted. Eyes: Pupils equal, round, and reactive to light. Conjunctivae and sclerae normal. Ears: Normal TMs and bilateral external canals are both within normal limits. Nose: No deformity, discharge, inflammation, or lesions Mouth: Mucous membranes moist. Normal oropharynx, and posterior pharynx with postnasal drip and without lesions, exudates, or enlarged tonsils. No difficulty swallowing. Neck: Neck supple. No masses or palpable cervical nodes. No mastoid tenderness. Lungs: Normal respiratory effort and clear to auscultation throughout. Cardio: regular rate and rhythm, no murmur Abdomen: soft, nondistended, BS normal and active x4. Denies tenderness with palpation. Extremity: Patient is able to move all 4 extremities equally without any pain or weakness. Neurologic: Grossly normal Skin: No rashes, ulcerations, or suspicious lesions Lymph Nodes: no lad Mental Status: alert, active Assessment/Plan 28-year-old female presented to [facility], for acute frontal sinusitis, sick contacts, patient did not appear ill or septic, no respiratory distress, difficulty swallowing, cough, chest pain. Patient presents with prescription for Augmentin, instructed to drink plenty of fluids, take vioh-fzo-tkuydbu ibuprofen and Tylenol as needed for fever, body aches, headaches. Follow-up with primary care provider as needed. 1. Acute frontal sinusitis (J01.10: Acute frontal sinusitis, unspecified) See above Ordered: amoxicillin-clavulanate, = 1 tab(s), Oral, q12hr, X 10 day(s), # 20 tab(s), Refills(s) 0, Pharmacy:[facility]/pharmacy #[id number], 164, cm, 05/05/24 9:21:00 EDT, Height/Length Dosing, 86.8, kg, 05/05/24 9:21:00EDT, Weight Dosing 2. BMI 32.0-32.9,adult (Z68.32: Body mass index [BMI] 32.0-32.9, adult) The standard range for ages 18 and older is >=18.5 and < 25 kg/m2. Your BMI today was above this range, this falls in the overweight to obese category and there are medical benefits to weight loss. We can offer counselling, referral, and/or medical support in addressing this problem. Your BMIand weight management will be followed at subsequent visits. Ordered: amoxicillin-clavulanate, = 1 tab(s), Oral, q12hr, X 10 day(s), # 20 tab(s), Refills(s) 0, Pharmacy:[facility]/pharmacy #[id number], 164, cm, 05/05/24 9:21:00 EDT, Height/Length Dosing, 86.8, kg, 05/05/24 9:21:00EDT, Weight Dosing Follow-up With When Contact Information KERRIE BROOKS, MISHA M, [facility] [address] [facility] [address] [place] [address]- Additional Instructions: Patient Education BMI for Adults Sinus Infection, Adult, Lqjh-oq-Mjpq Sinus Infection, Adult, Ejjo-jj-Liwm Problem List/Past Medical History Ongoing Smoker Historical None Yeast infection Procedure/Surgical History None. Medications Augmentin 875 mg oral tablet, 1 tab(s), Oral, q12hr cetirizine 10 mg Tab, 10 mg= 1 tab(s), Oral, Daily fluticasone 0.05 mg/inh Nasal [place], 2 spray(s), Nasal, Daily gabapentin 100 mg Cap, 200 mg= 2 cap(s), Oral, QID gabapentin 300 mg Cap, 300 mg= 1 cap(s), Oral, TID Lopressor 25 mg oral tab (more content not included)...Wayne HospitalComment on above:Result Comment: Electronically Signed By: CAROL ANAYA, JEAN MARIE\.hans\Date and Time Signed: 05/05/24 09:33 [place] 04-24-2024 CNPNTelephone ([facility]) YOLANDA APARICIO ([id number]) 1995 F Date Time Provider Department 04/24/24 JUDY GAMEZ [facility] During your visit today, we recorded the following information about you: Judy Gamez PSYD 04/24/2024 9:46 AM Signed Can pt please be added to my calendar 05/22 at 2pm? Judy Gamez PsyD Psychologist Department of Psychiatry and Psychology [facility] [phone] 04/24/2024 Allergies As of Date: 04/24/2024 Noted Allergy Reaction MODAFINIL 05/24/2022 1 - Mental Status Change AMOXICILLIN-POT CLAVULANATE 11/11/2020 14 - Other: See Comments Comments: extreme dizziness BACTRIM (SULFAMETHOXAZOLE-TRIMETH*11/23/2017 8 - GI Upset CEPHALEXIN 11/11/2020 16 - Unknown CIPROFLOXACIN 01/31/2020 16 - Unknown LEXAPRO (ESCITALOPRAM) 11/23/2017 8 - GI Upset ORANGE JUICE 11/23/2017 2 - Rash SERTRALINE 11/11/2020 1 - Mental Status Change 14 - Other: See Comments TRIMETHOPRIM 03/25/2018 14 - Other: See Comments Date Reviewed: 06/05/2023 Reviewed by: Wilma Chong, DIANNE - Fully Assessed Reason for Visit: Appointment [186] Prescriptions as of 05/06/2024 - naltrexone HCl (NALTREXONE ORAL) Take 0.75 mg by mouth once daily. - nitroglycerin sublingual (NITROQUICK) 0.3 mg SL tablet Dissolve 1 tablet under the tongue one time only for 1 dose. To be administered in Radiology for CTA exam - tiZANidine (ZANAFLEX) 4 mg tablet take 1 tablet by mouth everyday at bedtime - gabapentin (NEURONTIN) 100 mg capsule Take 2 capsules by mouth once daily. (taken with 300mg capsule) - gabapentin (NEURONTIN) 300 mg capsule 1 capsule at bedtime (taken with two 100 mg capsules) - hydrOXYzine HCl (ATARAX) 10 mg tablet Take 1 tablet by mouth three times daily as needed. - metoprolol tartrate, short acting, (LOPRESSOR) 25 mg tablet Take 25 mg by mouth twice daily. 12.5 mg in the morning and 25 mg in the evening - sodium chloride 1 g tab Take 2 g by mouth three times daily. 1 gram in morning and 1 gram in evening - fluticasone (FLONASE) 50 mcg/actuation nasal spray Use 2 Sprays in each nostril once daily. - acetaminophen (ACETAMINOPHEN EXTRA STRENGTH) 500 mg tablet Take 500 mg by mouth every 6 hours as needed for pain. - meclizine (ANTIVERT) 25 mg tab Take 50 mg by mouth three times daily as needed (TID PRN). As needed TID - ondansetron orally disintegrating (ZOFRAN ODT) 4 mg disintegrating tablet Take 4 mg by mouth every 6 hours as needed for nausea/vomiting. - ibuprofen (MOTRIN) 200 mg tablet Take 200 mg by mouth every 6 hours as needed for pain. - acetaminophen (TYLENOL) 500 mg tablet Take 500 mg by mouth as needed. Problem List As Of Date 04/24/2024 Noted Resolved COVID-19 [U07.1] 02/10/2020 10/25/2021 History of tobacco use [Z87.891] 07/11/2017 02/01/2021 Personal history of COVID-19 [Z86.16] 03/08/2020 Intractable tension-type headache [G44.201] 04/08/2018 Hypermobility of joint [M24.9] 04/07/2018 02/01/2021 Gait disturbance [R26.9] 09/26/2017 02/01/2021 Cerebrovascular disease [I67.9] 04/08/2018 Facial paresthesia [R20.2] 07/12/2017 POTS (postural orthostatic tachycardia syndrome*02/01/2021 Long COVID [U09.9] 02/01/2021 Cognitive communication deficit [R41.841] 02/10/2021 Mixed obsessional thoughts and acts [F42.2] 12/26/2021 PTSD (post-traumatic stress disorder) [F43.10] 12/26/2021 Obesity, Class I, BMI 30-34.9 [E66.811] 01/24/2022 Chronic fatigue syndrome [G93.32] 10/11/2022 Activity intolerance [R68.89] 11/23/2022 Impaired functional mobility, balance, gait, an*11/23/2022 Headache, unspecified [R51.9] 05/30/2023 Diagnosed: 05/30/2023 Mood disorder (HCC) [F39] 09/13/2022 06/28/2023 Diagnosed: 05/30/2023 Difficulty sleeping [G47.9] 05/30/2023 Diagnosed: 05/30/2023 Encounter Status:Closed by MALIK GAMEZN on 05/06/24[facility] METHYLMALONIC ACIDon [id number] RDSR027 nmol/JVgwlnt15-345Niwjw DiagnosticsComment on above:Result Comment: See Note 1 Serum methylmalonic acid (MMA) levels are used to diagnose and monitor several rare inborn errors of metabolism, including methylmalonic aciduria. The enzymatic conversion of MMA to succinic acid requires vitamin B12 (adenosyl-cobalamin) as a cofactor. Serum MMA levels are also used for assessing functional vitamin B12 deficiency. Vitamin B12 is essential for neurodevelopment, particularly early in . Undiagnosed maternal vitamin B12 deficiency may be associated with adverse / outcomes, such as neural tube defects and intrauterine growth restriction. [email or web address] utilized Multi-Modal Decomposition (MMD) analysis to establish first and second trimester-specific MMA reference intervals in , as given below: MMA, First trimester (<13 wks gestation): 58-167 nmol/L MMA, Second trimester (13-23 wks gestation): 63-241 nmol/L Note 1 This test was developed and its analytical performance characteristics have been determined by [email or web address]. It has not been cleared or approved by the FDA. This assay has been validated pursuant to the CLIA regulations and is used for clinical purposes.Performed By: #### [id number], 927 #### [facility] [address], [address] [place] [address] Media Arts Professor: Zeke Benitez MDVITAMIN B12on 05-47-9712Gbvlqiecj (Vitamin B12) [Mass/Vol]430 pg/oAMpefpf942-1603Kywfa DiagnosticsComment on above:Order Comment: FASTING:NO FASTING: NOPerformed By: #### [id number], 927 #### [facility] [address], [address] [place] [id number] [employer] Professor: Zeke Benitez MDNo Panel InformationOrdered By: Edie Dolan on [id number] Antigen (POC)[facility] HospitalQuick Strep (POC)[facility] HospitalCOVID Antigen (POC)[facility] HospitalQuick Strep (POC)[facility]rington HospitalCNPNon [id number] ([facility]) YOLANDA APARICIO Donald ([id number]) 1995 F Date Time Provider Department 03/26/24 JUDY GAMEZ During your visit today, we recorded the following information about you: Judy Gamez PSYD 03/26/2024 10:23 AM Signed Pt in need of rescheduling appointments which were cancelled due to my teaching schedule. She would like to be scheduled for virtual appointments every 2 weeks for 8 visits (see THELMA, can have max 8 appointments at a time for continuity for structured therapy). She does not need a phone call and requested to be scheduled for whatever is available in the mornings and I will MyChart message her when it is scheduled. Can use dept use or [place] access slots for mornings. Thanks! Judy Gamez PsyD Psychologist Department of Psychiatry and Psychology [facility] [phone] 03/26/2024 Allergies As of Date: 03/26/2024 Noted Allergy Reaction MODAFINIL 05/24/2022 1 - Mental Status Change AMOXICILLIN-POT CLAVULANATE 11/11/2020 14 - Other: See Comments Comments: extreme dizziness BACTRIM (SULFAMETHOXAZOLE-TRIMETH*11/23/2017 8 - GI Upset CEPHALEXIN 11/11/2020 16 - Unknown CIPROFLOXACIN 01/31/2020 16 - Unknown LEXAPRO (ESCITALOPRAM) 11/23/2017 8 - GI Upset ORANGE JUICE 11/23/2017 2 - Rash SERTRALINE 11/11/2020 1 - Mental Status Change 14 - Other: See Comments TRIMETHOPRIM 03/25/2018 14 - Other: See Comments Date Reviewed: 06/05/2023 Reviewed by: Wilma Chong, DIANNE - Fully Assessed Reason for Visit: Appointment [186] Prescriptions as of 04/04/2024 - naltrexone HCl (NALTREXONE ORAL) Take 0.75 mg by mouth once daily. - nitroglycerin sublingual (NITROQUICK) 0.3 mg SL tablet Dissolve 1 tablet under the tongue one time only for 1 dose. To be administered in Radiology for CTA exam - tiZANidine (ZANAFLEX) 4 mg tablet take 1 tablet by mouth everyday at bedtime - gabapentin (NEURONTIN) 100 mg capsule Take 2 capsules by mouth once daily. (taken with 300mg capsule) - gabapentin (NEURONTIN) 300 mg capsule 1 capsule at bedtime (taken with two 100 mg capsules) - hydrOXYzine HCl (ATARAX) 10 mg tablet Take 1 tablet by mouth three times daily as needed. - metoprolol tartrate, short acting, (LOPRESSOR) 25 mg tablet Take 25 mg by mouth twice daily. 12.5 mg in the morning and 25 mg in the evening - sodium chloride 1 g tab Take 2 g by mouth three times daily. 1 gram in morning and 1 gram in evening - fluticasone (FLONASE) 50 mcg/actuation nasal spray Use 2 Sprays in each nostril once daily. - acetaminophen (ACETAMINOPHEN EXTRA STRENGTH) 500 mg tablet Take 500 mg by mouth every 6 hours as needed for pain. - meclizine (ANTIVERT) 25 mg tab Take 50 mg by mouth three times daily as needed (TID PRN). As needed TID - ondansetron orally disintegrating (ZOFRAN ODT) 4 mg disintegrating tablet Take 4 mg by mouth every 6 hours as needed for nausea/vomiting. - ibuprofen (MOTRIN) 200 mg tablet Take 200 mg by mouth every 6 hours as needed for pain. - acetaminophen (TYLENOL) 500 mg tablet Take 500 mg by mouth as needed. Problem List As Of Date 03/26/2024 Noted Resolved COVID-19 [U07.1] 02/10/2020 10/25/2021 History of tobacco use [Z87.891] 07/11/2017 02/01/2021 Personal history of COVID-19 [Z86.16] 03/08/2020 Intractable tension-type headache [G44.201] 04/08/2018 Hypermobility of joint [M24.9] 04/07/2018 02/01/2021 Gait disturbance [R26.9] 09/26/2017 02/01/2021 Cerebrovascular disease [I67.9] 04/08/2018 Facial paresthesia [R20.2] 07/12/2017 POTS (postural orthostatic tachycardia syndrome*02/01/2021 Long COVID [U09.9] 02/01/2021 Cognitive communication deficit [R41.841] 02/10/2021 Mixed obsessional thoughts and acts [F42.2] 12/26/2021 PTSD (post-traumatic stress disorder) [F43.10] 12/26/2021 Obesity, Class I, BMI 30-34.9 [E66.811] 01/24/2022 Chronic fatigue syndrome [G93.32] 10/11/2022 Activity intolerance [R68.89] 11/23/2022 Impaired functional mobility, balance, gait, an*11/23/2022 Headache, unspecified [R51.9] 05/30/2023 Diagnosed: 05/30/2023 Mood disorder (HCC) [F39] 09/13/2022 06/28/2023 Diagnosed: 05/30/2023 Difficulty sleeping [G47.9] 05/30/2023 Diagnosed: 05/30/2023 Encounter Status:Closed by JUDY GAMEZ on 04/04/24[facility] - Chemistry and Chemistry - challengeon 04-10-1589Xgtksuppg Ql (U) [facility] HospitalGlucose (U) [Mass/Vol]NegativeCherrington HospitalKetones Ql (U)[facility] pH (U)5.5 [pH][facility] Systempecific gravity (U) [Rel density]1.025Cherrington HospitalUrobilinogen (U) [Mass/Vol]0.2 mg/dLCherrington HospitalLaboratory - Specimen informationon [id number] (U)cloudyCherrington HospitalColor (U)yellow [facility] HospitalLaboratory - Urinalysison 35-21-2897Qbfgwcrth esterase Test strip Ql (U)smallCherrington HospitalNitrite Ql (U) [facility] HospitalProtein Ql (U)[facility] HospitalNo Panel Informationon [id number] Occult Blood NegativeCherrington HospitalUrine Cultureon [id number] identified Cx Nom (U)<9,000 colonies/ml mixed bacterial skin contaminants 2 Days PERFORMED BY: [facility] [address] [place] [address] PATHOLOGIST PASSENGER CAR INSPECTOR AVA LEWIS M.D.NormalThe Critical Access Hospital Physician GroupComment on above: Performed By: #### CUU #### [facility] [address] [place] [address] USAUrine cultureOrdered By: Melanie Meyer on 02-28-2024 Bacteria identified Cx Nom (U)Urine cultureCherrington HospitalB hCG Qualon [id number] HCG ( test) QlNegativeNormalBrecksville Va / Crille HospitalComment on above:Performed By: #### [id number] ####[facility] [address] [place], [place] [address]SOWmv 55-71-0474Ezlou gap [Moles/Vol]13 mmol/LNormal6-16[facility] Crille HospitalComment on above: Performed By: #### [id number] #### [facility] [address], [place] [address]Nhupuoe [Mass/Vol]9.2 mg/dLNormal8.9-11.1FGood Samaritan HospitalComment on above:Performed By: #### [id number] #### [facility] [address], [place] [address]Ldtdtixl [Moles/Vol]105 mmol/YYisjqt319-187WdfiryBrecksville Va / Crille HospitalComment on above:Performed By: #### [id number] #### [facility] [address], [place] [address]NH3 [Moles/Vol]24 mmol/GTbqiud96-71DmetssBrecksville Va / Crille Hospital Comment on above:Performed By: #### [id number] #### [facility] [address], [place] [address]Qgfbsvewor [Mass/Vol]0.8 mg/dLNormal0.5-1.3FGood Samaritan HospitalComment on above:Performed By: #### [id number] #### [facility] [address], [place] [address]Gyetuib [Mass/Vol]124 mg/xMRxosuo26-197SevhxyBrecksville Va / Crille HospitalComment on above:Performed By: #### [id number] #### [facility] [address] [place] [address]Thfyymurq [Moles/Vol]3.6 mmol/LNormal3.5-5.3FGood Samaritan HospitalComment on above:Performed By: #### [id number] #### [facility] [address] [place] [address]Znuhlw [Moles/Vol]138 mmol/LXgowtv238-848FlolpeBrecksville Va / Crille HospitalComment on above:Performed By: #### [id number] #### [facility] [address] [place] [address]Yczi nitrogen [Mass/Vol]11 mg/dLNormal5-21[facility] Cr[facility] HospitalComment on above:Performed By: #### [id number] #### [facility] [address] [place] [address]Krrw nitrogen/Creatinine [Mass ratio]14 No LjjtjXuhjok57-86 [facility] Crille HospitalComment on above:Performed By: #### [id number] #### [facility] [address] [place] [address]XTK w/ Auto Diffon 84-44-8777Vddqcudnp/100 WBC (Bld)0.3 %Normal 0.0-2.0[facility] Crille HospitalComment on above:Performed By: #### [id number] #### [facility] [address] [place] [address]Jyawlydji/Leukocytes Auto (Bld) [Pure # fraction]0.0 E9/LNormal 0.0-0.2FGood Samaritan HospitalComment on above:Performed By: #### [id number] #### [facility] [address], [place] [address]Ppwkffbovsb (Bld) [#/Vol]0.1 E9/LNormal0.0-0.5FGood Samaritan HospitalComment on above:Performed By: #### [id number] #### [facility] [address] [place] [address]99[address]Jyntspkickb/100 WBC (Bld)0.7 %Normal0.0-8.0[facility] Cr[facility] HospitalComment on above:Performed By: #### [id number] #### [facility] [address] [place] [address]Qxrytottelx distribution width (RBC) [Ratio]13.7 %Normal 10.9-14.2FGood Samaritan HospitalComment on above:Performed By: #### [id number] #### [facility] [address] [place] [address]Qyzkitearc (Bld) [Volume fraction]40.4 %Inwbxp88.0-46.0[facility] HospitalComment on above:Performed By: #### [id number] #### [facility] [address] [place] [address]Usyaazizju (Bld) [Mass/Vol]14.0 g/oHCxsnct95.0-16.0[facility] HospitalComment on above:Performed By: #### [id number] #### [facility] [address] [place] [address]Sguaxedivyt (Bld) [#/Vol]0.7 E9/LLow1.0-4.0[facility] HospitalComment on above:Performed By: #### [id number] #### [facility] [address] [place] [address]Gulpsvclncp/100 WBC (Bld)6.1 %Low14.0-50.0[facility] HospitalComment on above:Performed By: #### [id number] #### [facility] [address] [place] [address] 30566PXS (RBC) [Entitic mass]27.8 wzUlavhk46.0-34.0[facility] Cr[facility] HospitalComment on above:Performed By: #### [id number] #### [facility] [address] [place] [address]NCUL (RBC) [Mass/Vol]34.7 g/yEVoydhv69.4-36.0[facility] HospitalComment on above:Performed By: #### [id number] #### [facility] [address] [place] [address] 22273LAC (RBC) [Entitic vol]80.1 iRHyopkb11.0-100.0[facility] HospitalComment on above:Performed By: #### [id number] #### [facility] [address] [place] [address]Mbaqommrb (Bld) [#/Vol]0.5 E9/LNormal0.2-1.0[facility] HospitalComment on above:Performed By: #### [id number] #### [facility] [address] [place] [address]Txotvrjihmi (Bld) [#/Vol]10.6 E9/LHigh2.0-7.5FGood Samaritan HospitalComment on above:Performed By: #### [id number] #### [facility] [address] [place] [address]Jgtfuqxqzte/100 WBC (Bld)88.4 %High36.0-75.0[facility] HospitalComment on above:Performed By: #### [id number] #### [facility] [address] [place] [address]Vucflxjv207.0 E9/YQjazai009.0-500.0[facility] Comment on above:Performed By: #### [id number] #### [facility] [address] [place] [address]Bjbpztel mean volume (Bld) [Entitic vol]8.3 fLNormal6.4-10.8 [facility] HospitalComment on above:Performed By: #### [id number] #### [facility] [address], [place] [address]EZZ (Bld) [#/Vol]5.1 E12/LNormal4.3-5.9[facility] HospitalComment on above:Performed By: #### [id number] #### [facility] [address], [place] [address]ZYW corrected for nucl RBC Auto (Bld) [#/Vol]12.0 E9/LHigh 4.0-11.0[facility] HospitalComment on above:Performed By: #### [id number] #### [facility] [address], [place] [address]TKYQYOAPGDbaxwzt By: SYSTEM SYSTEM on 05-87-7825Jtqxvdu [Mass/Vol]4.4 g/dLNormal3.3 - 5.0 gm/dLRemisol ChemAlbumin/Globulin [Mass ratio] 1.5 {ratio}Normal1.1 - 2.2Remisol ChemALP [Catalytic activity/Vol]67 [iU]/d Usdrch40 - 98 Int._Unit/LRemisol ChemALT No additional P-5'-P [Catalytic activity/Vol]9 [iU]/dNormal6 - 46 Int._Unit/LRemisol ChemAnion gap [Moles/Vol]13 mmol/LNormal6 - 16 mEq/LRemisol ChemAST [Catalytic activity/Vol]12 [iU]/dNormal 5 - 43 Int._Unit/LRemisol ChemBilirubin [Mass/Vol]0.8 mg/dLNormal0.0 - 1.1 mg/dL Remisol ChemBilirubin.direct [Mass/Vol]0.1 mg/dLNormal0.0 - 0.4 mg/dLRemisol ChemBilirubin.indirect [Mass or moles/Vol]0.7 mg/dLNormal0.1 - 0.9 mg/dLRemisol ChemCalcium [Mass/Vol]9.2 mg/dLNormal8.9 - 11.1 mg/dLRemisol ChemChloride [Moles/Vol]105 mmol/ZLtohws519 - 111 mmol/LRemisol ChemCO2 [Moles/Vol]24 mmol/L Qofgmj47 - 31 mmol/LRemisol ChemCreatinine [Mass/Vol]0.8 mg/dLNormal0.5 - 1.3 mg/dLRemisol HunqtMGV842 mL/min/1.73 q1Titlia>=59mL/min/1.73 y4Mpyqwvz Chem Globulin (S) [Mass/Vol]2.9 g/dLNormal1.4 - 4.0 gm/dLRemisol ChemGlucose [Mass/Vol]124 mg/tBMpybas17 - 199 mg/dLRemisol ChemLipase [Catalytic activity/Vol]17 U/YUbtmdt04 - 58 unit/LRemisol ChemPotassium [Moles/Vol]3.6 mmol/LNormal3.5 - 5.3 mmol/LRemisol ChemProtein [Mass/Vol]7.3 g/dLNormal6.0 - 7.8 gm/dLRemisol ChemSodium [Moles/Vol]138 mmol/TFeeqca356 - 145 mmol/LRemisol ChemUrea nitrogen [Mass/Vol]11 mg/dLNormal5 - 21 mg/dLRemisol ChemUrea nitrogen/Creatinine [Mass ratio]14 mg/ucOgfdxn17 - 20Remisol ChemED Clinical Summaryon [id number] Clinical SummaryED Clinical Summary [place] [id number] ED Clinical Summary Person Information Name: YOLANDA APARICIO/[facility] Age: 28 Years : 1995 Sex: Female Language: Uzbek PCP: MISHA SY DO Marital Status: Single Visit Id: Visit Reason: Diarrhea; Vomiting; Nausea; N/V/D/ Speciality: Acuity: 3 Enc Type: Emergency Med Service: Emergency Arrival: 02/17/2024 01:57:14 Discharge: 02/17/2024 03:43:11 LOS: 000 01:46 Checkin: 02/17/2024 01:57:14 Checkout: 02/17/2024 03:43:11 Dispo Type: Home (Routine DC) EVENTS: Event Name Event Status Request Date/Time Start Date/Time Complete Date/Time Arrive Complete 02/17/2024 01:57:14 02/17/2024 01:57:14 02/17/2024 01:57:14 Document Home Meds Request 02/17/2024 01:57:14 Triage Complete 02/17/2024 01:57:14 02/17/2024 02:04:10 02/17/2024 02:04:10 No Visitors Request 02/17/2024 01:59:07 Dr Exam Complete 02/17/2024 02:00:00 02/17/2024 02:00:00 02/17/2024 02:00:00 Registration Complete 02/17/2024 02:00:00 02/17/2024 02:01:19 02/17/2024 02:01:19 Reg Complete Request 02/17/2024 02:01:19 Reg Bed Request Complete 02/17/2024 02:01:19 02/17/2024 02:01:19 02/17/2024 02:01:19 Isolation Screening Request 02/17/2024 02:04:10 Bed Assign Complete 02/17/2024 02:05:55 02/17/2024 02:05:55 02/17/2024 02:05:55 RN Exam Complete 02/17/2024 02:05:55 02/17/2024 02:45:05 02/17/2024 02:45:05 Meds Admin Complete 02/17/2024 02:13:37 02/17/2024 02:37:54 Pending Labs Request 02/17/2024 02:13:37 Lab Complete 02/17/2024 02:13:37 02/17/2024 03:08:10 Pending Labs Complete 02/17/2024 02:43:24 02/17/2024 02:43:24 02/17/2024 03:08:10 Lab Complete 02/17/2024 02:43:24 02/17/2024 02:43:24 02/17/2024 03:08:10 Discharge Complete 02/17/2024 03:33:21 02/17/2024 03:43:17 02/17/2024 03:43:17 Transfer Complete 02/17/2024 03:43:17 02/17/2024 03:43:17 02/17/2024 03:43:17 [address] [place] [phone] PHYS DOC NOTES: MEDICAL INFORMATION: Prescriptions Given: New Medications [id number], [address], [place] [id number], [phone] dicyclomine (Bentyl 10 mg Cap) 1 Capsules By Mouth 4 times a day for 7 Days. Refills: 0. metoclopramide (Reglan 10 mg Tab) 1 Tablets By Mouth every 6 hours. Refills: 0. promethazine (Phenergan 25 mg Supp) 1 Suppositories By rectum every 6 hours as needed Nausea/Vomiting. Refills: 0. Medications to Continue with No Changes Other Medications albuterol (Ventolin HFA 90 mcg/inh Aerosol) 1 Puffs Inhalation Once as needed for wheezing. cetirizine (cetirizine 10 mg Tab) 1 Tablets By Mouth every day. Refills: 0. diazepam (Valium 5 mg Tab) 1 Tablets By Mouth 2 times a day as needed Dizziness. Ordered by anotherprovider.. fluticasone nasal (fluticasone 0.05 mg/inh Nasal [place]) 2 Sprays Nasal Inhalation every day. each nostril. Refills: 0. gabapentin (gabapentin 100 mg Cap) 2 Capsules By Mouth 4 times a day. gabapentin (gabapentin 300 mg Cap) 1 Capsules By Mouth 3 times a day. meclizine (meclizine 25 mg Tab) 1 Tablets By Mouth 3 times a day as needed for dizziness. Refills: 0. tizanidine (tiZANidine 4 mg Tab) 1 Tablets By Mouth every 8 hours. PATIENT EDUCATION INFORMATION: Instructions: Nausea and Vomiting, Adult, Uttm-wa-Egli; Diarrhea, Adult, Vljj-gf-Hogj Follow up: With: Address: When: MISHA SY [facility] ALEXANDRA THAKUR, [facility] [address] [place] [address] Business (1) In 3 days 02/20/2024 Comments: You can use the nausea medicine, pain medication as prescribed as needed for nausea and pain. Please follow-up with your primary care doctor for further evaluation and management. Please return to EDfor any new or worsening symptoms. DIAGNOSIS: Diarrhea, unspecified; Nausea, vomiting, and diarrheaNormalFisher Tee Medical CenterED Note-Physicianon [id number] Note-PhysicianED Note-Physician Basic Information Time Seen: Yvonne Rausch DO 02/17/2024 02:00 Chief Complaint nausea, vomiting and diarrhea. starting in the last 5 hrs. taking zofran without reliief History of Present Illness Patient is a 28-year-old female with past medical history of POTS, long COVID and to the ED for evaluation of nausea vomiting diarrhea. Patient states symptoms started proximately 5 hours has been unable to keep anything down. Patient states she took Zofran at home without any improvement of her symptoms. Patient is concerned as she did do a recent injection of semaglutide. States she is having dizziness as well. Patient notes some abdominal discomfort, cramping. Denies any fevers, chills. Review of Systems A 10 point review of systems is negative except as noted above. Medical and Surgical History: Reviewed and noted Social history: Lives at home Tobacco: Denies Physical Exam Vitals & Measurements T: 36.7 ???C(Oral) HR: 112(Peripheral) RR: 20 BP: 105/75 SpO2: 99% HT: 164 cm WT: 82.5 kg BMI: 30.67 General: Well developed, non toxic appearing, no acute distress HEENT: Head atraumatic, Mucosa moist, hearing grossly normal Neck: No JVD, tracheal deviation Cardiac: Regular rate, rhythm, no murmurs, or gallops, 2+ radial pulses Respiratory: Lungs clear to auscultation B/L, normal respiratory effort Abdomen: Soft non tender, no rebound or guarding, no peritoneal signs Extremities: No edema noted in the LE B/L, no tenderness to palpation Neurologic: Alert and oriented, speech clear Skin: No rashes or lesions Psych: Appropriate mood and behavior Medical Decision Making MEDICAL DECISION MAKING Number and Complexity of Problems Differential Diagnosis: [] [facility] Data External documents reviewed: [] My EKG interpretation: [] My CT interpretation: [] My X-ray interpretation: [] My Ultrasound interpretation: [] Decision rules/scores evaluated: [] Discussed with: [] Treatment and Disposition ED Course: Patient is a 28-year-old female presenting to the ED for evaluation nausea vomiting diarrhea. Patient is nontoxic and on arrival, no acute distress. Due to her complaints basic laboratory evaluation is obtained patient is given Bentyl, Zofran, Imodium. Patient requesting meclizine this is given as well. Patient's laboratory evaluation is unremarkable. Patient was able to tolerate p.o. challenge. I believe this is likely viral. Discussed findings with patient she is comfortable discharge home is given prescription for Reglan, Phenergan suppositories in addition to Bentyl. She is to follow-up with her primary care doctor for further evaluation and management. She is to return to the ED for any new or worsening symptoms. Shared decision making: [] Code status: [] Assessment/Plan Diarrhea, unspecified (R19.7: Diarrhea, unspecified) Nausea, vomiting, and diarrhea (R11.2: Nausea with vomiting, unspecified) Orders: dicyclomine, 20 mg = 2 mL, Injection, IntraMuscular, Once, Stop date 02/17/24 2:12:00 EST, STAT, Start date 02/17/24 2:12:00 EST, 02/17/24 2:12:00 EST dicyclomine, 10 mg = 1 cap(s), Oral, QID, X 7 day(s), # 14 cap(s), Refills(s) 0, Pharmacy: [id number], 164, cm, 02/17/24 2:04:00 EST, Height/Length Dosing, 82.5, kg, 02/17/24 2:04:00 EST, Weight Dosing loperamide, 4 mg = 2 tab(s), Tab, Oral, Once, Stop date 02/17/24 2:12:00 EST, STAT, Start date 02/17/24 2:12:00 EST, 02/17/24 2:12:00 EST meclizine, 25 mg = 2 tab(s), Tab, Oral, Once, Stop date 02/17/24 2:12:00 EST, STAT, Start date 02/17/24 2:12:00 EST, 02/17/24 2:12:00 EST metoclopramide, 10 mg = 1 tab(s), Oral, q6hr, # 12 tab(s), Refills(s) 0, [id number], 164, cm, 02/17/24 2:04:00 EST, Height/Length Dosing, 82.5, kg, 02/17/24 2:04:00 EST, Weight Dosing promethazine, 25 mg = 1 supp, Rectal, q6hr, PRN Nausea/Vomiting, # 6 EA, Refills(s) 0, [id number], 164, cm, 02/17/24 2:04:00 EST, Height/Length Dosing, 82.5, kg, 02/17/24 2:04:00 EST, Weight Dosing promethazine 25 mg + Sodium Chloride 0.9% intravenous solution 50 mL, Injection, IV Piggyback, Once, Stop date 02/17/24 2:12:00 EST, STAT, Start date 02/17/24 2:12:00 EST, 153 mL/hr, Infuse over 20 minute(s) Sodium Chloride 0.9% intravenous solution, 500 mL, Soln-IV, IV, Once, Stop date 02/17/24 2:12:00 EST, STAT, Start date 02/17/24 2:12:00 EST, 500 mL/hr, Infuse over 1, hour(s) Basic Metabolic Panel Beta hCG Qual CBC w/ Auto Diff eGFR Hepatic Function Panel Lipase Level UA with Cult Rflx Medications Administered Given dicyclomine 10 mg/mL Inj, 20 mg, IntraMuscular Immodium A-D 2 mg Tab, 4 mg, Oral meclizine 12.5 mg Tab, 25 mg, Oral NS 500 ml Bolus, 500 mL, IV Sodium Chloride 0.9% IV Carmen 50 mL [F] 50 mL + nrvxai29Axopgebvi [F] 25 mg, IV Piggyback Disposition Plan Discharge Prescription List Prescriptions Bentyl 10 mg Cap, 10 mg= 1 cap(s), Oral, QID Phenergan 25 mg Supp, 25 mg= 1 supp, Rectal, (more content not included)... 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 It is important that you follow up with a doctor, nurse practitioner,or physician???s export sales assistant for ongoing care. If your symptoms become worse or you do not improve asexpected and you are unable to reach your usual health care provider, you should return to the Emergency Department. We are available 24 hours a day. YOLANDA APARICIO has been given the following list of patient education materials, prescriptions andfollow-up instructions: Follow-up Instructions: With: Address: When: MISHA SY [address] [place] [id number] Business (1) In 3 days 02/20/2024 Comments: You can use the nausea medicine, pain medication as prescribed as needed for nausea and pain. Please follow-up with your primary care doctor for further evaluation and management. Please return to EDfor any new or worsening symptoms. In the event that this physician does not participate in your insurance network, please consult with your insurance company to find a nearby participating provider. Patient Education Materials: Nausea and Vomiting, Adult, Jmkc-vj-Cquy; Diarrhea, Adult, Sagz-kr-Ymyw A MESSAGE TO ALL PATIENTS REGARDING OPIOIDS PRESCRIPTION OPIOIDS: WHAT YOU NEED TO KNOW Prescription opioids can be used to help relieve ikripctj-dh-zyjdhn pain and are often prescribed following a surgery or injury, or for certain health conditions. These medications can be an important part of the treatment but also come with serious risks. It is important to work with your healthcare provider to make sure you are getting the safest, most effective care. WHAT ARE THE RISKS AND SIDE EFFECTS OF OPIOID USE? Prescription opioids carry serious risks of addiction and overdose, especially with prolonged use. An opioid overdose, often marked by slowed breathing, can cause sudden . The use of prescription opioids can have a number of side effects as well, even when taken as directed: ??? Tolerance???meaning you might need to take more of the medication for the same pain relief ??? Physical dependence???meaning you have symptoms of withdrawal when a medication is stopped ??? Increased sensitivity to pain ??? Constipation ??? Nausea, vomiting, and dry mouth ??? Sleepiness and dizziness ??? Confusion ??? Depression ??? Low levels of testosterone that can result in lower sex drive, energy, and strength ??? Itching and sweating RISKS ARE GREATER WITH: ??? History of drug misuse, substance use disorder, or overdose ??? Mental health conditions (such as depression or anxiety) ??? Sleep apnea ??? Older age (65 years and older) ??? Avoid alcohol while taking prescription opioids. Also, unless specifically advised by your health care provider, medications to avoid include: ??? Benzodiazepines (such as Xanax or Valium) ??? Muscle relaxants (such as Soma or Flexeril) ??? Hypnotics (such as Ambien or Lunesta) ??? Other prescription opioids KNOW YOUR OPTIONS Talk to your health care provider about ways to manage your pain that don???t involve prescription opioids. Some of these options may actually work better and have fewer risks and side effects. Options may include: ??? Pain relievers such as acetaminophen, ibuprofen, and naproxen ??? Some medication that are also used for depression or seizures ??? Physical therapy and exercise ??? Cognitive behavioral therapy, a psychological, goal-directed approach, in which patients learn how to modify physical, behavioral, and emotional triggers of pain and stress. IF YOU ARE PRESCRIBED OPIOIDS FOR PAIN: ??? Never take opioids in greater amounts or more often than prescribed. ??? Follow up with your primary health care provider. o Work together to create a plan on how to manage your pain. o Talk about ways to help manage your pain that don???t involve prescription opioids. o Talk about any and all concerns and side effects. ??? Help prevent misuse and abuse o Never sell or share prescription opioids. o Never use another person???s prescription opioids. ??? Store prescription opioids in a secure place and out of reach of others (this may include visitors, children, friends, and family). ??? Safely dispose of unused prescription opioids: Find your community drug take-back program or your pharmacy mail-back program, or (more content not included)...[facility] HospitalHEMATOLOGYOrdered By: SYSTEM SYSTEM on 28-92-2428Lxsybinsi/100 WBC (Bld)0.3 %Normal0.0 - 2.0 %Remisol Heme Basophils/Leukocytes Auto (Bld) [Pure # fraction]0.0 E9/LNormal0.0 - 0.2 E9/L Remisol HemeEosinophils (Bld) [#/Vol]0.1 E9/LNormal0.0 - 0.5 E9/LRemisol Heme Eosinophils/100 WBC (Bld)0.7 %Normal0.0 - 8.0 %Remisol HemeErythrocyte distribution width (RBC) [Ratio]13.7 %Qeoyer43.9 - 14.2 %Remisol HemeHematocrit (Bld) [Volume fraction]40.4 %Iwlvxn18.0 - 46.0 %Remisol HemeHemoglobin (Bld) [Mass/Vol]14.0 g/iFJphmmc53.0 - 16.0 gm/dLRemisol HemeLymphocytes (Bld) [#/Vol] 0.7 E9/LLow1.0 - 4.0 E9/LRemisol HemeLymphocytes/100 WBC (Bld)6.1 %Low14.0 - 50.0 %Remisol HemeMCH (RBC) [Entitic mass]27.8 weZzozyx90.0 - 34.0 pgRemisol HemeMCHC (RBC) [Mass/Vol]34.7 g/kTAhvmrd41.4 - 36.0 gm/dLRemisol HemeMCV (RBC) [Entitic vol]80.1 zMVlmzqm92.0 - 100.0 fLRemisol HemeMonocytes (Bld) [#/Vol]0.5 E9/LNormal0.2 - 1.0 E9/LRemisol HemeMonocytes/100 WBC (Bld)4.5 %Normal4.0 - 14.0 %Remisol HemeNeutrophils (Bld) [#/Vol]10.6 E9/LHigh2.0 - 7.5 E9/LRemisol Heme Neutrophils/100 WBC (Bld)88.4 %High36.0 - 75.0 %Remisol XcrjDuqzrnqx386.0 E9/L Dqkehr088.0 - 500.0 E9/LRemisol HemePlatelet mean volume (Bld) [Entitic vol]8.3 fLNormal6.4 - 10.8 fLRemisol HemeRBC (Bld) [#/Vol]5.1 E12/LNormal4.3 - 5.9 E12/L Remisol HemeWBC corrected for nucl RBC Auto (Bld) [#/Vol]12.0 E9/LHigh4.0 - 11.0 E9/LRemisol HemeHep Func Panelon 21-71-6884Pmdigpv [Mass/Vol]4.4 g/dLNormal 3.3-5.0[facility] Crille HospitalComment on above:Performed By: #### [id number] #### [facility] [address], [place] [address]Rbzfuki/Globulin (S) [Mass conc ratio]1.4Swsuqb3.1-2.2FGood Samaritan HospitalComment on above:Performed By: #### [id number] #### [facility] [address], [place] [address]ZEB [Catalytic activity/Vol]67 Int._Unit/EIcvgkm04-32OdpuhfBrecksville Va / Crille HospitalComment on above:Performed By: #### [id number] #### [facility] [address], [place] [address]NFI No additional P-5'-P [Catalytic activity/Vol]9 Int._Unit/L Normal6-46[facility] / Crille HospitalComment on above:Performed By: #### [id number] #### [facility] [address], [place] [address]UFR [Catalytic activity/Vol]12 Int._Unit/LNormal5-43[facility] Crille HospitalComment on above:Performed By: #### [id number] #### [facility] [address] [place] [address] 64754Sscufjdqx [Mass/Vol]0.8 mg/dLNormal0.0-1.1FGood Samaritan HospitalComment on above:Performed By: #### [id number] #### [facility] [address] [place] [address]174Mxzawycrh.direct [Mass/Vol]0.1 mg/dLNormal0.0-0.4FGood Samaritan HospitalComment on above:Performed By: #### [id number] #### [facility] [address] [place] [address]Ubjwijirt.indirect [Mass or moles/Vol]0.7 mg/dLNormal0.1-0.9 [facility] Crille HospitalComment on above:Performed By: #### [id number] #### [facility] [address] [place] [address] 15853Kwupqveq (S) [Mass/Vol]2.9 g/dLNormal1.4-4.0[facility] Crille HospitalComment on above:Performed By: #### [id number] #### [facility] [address] [place] [address] 69873Vlmaurl [Mass/Vol]7.3 g/dLNormal6.0-7.8[facility] Crille HospitalComment on above:Performed By: #### [id number] #### [facility] [address] [place] [address] 75[address]Goydlf Levelon 05-31-0694Zfhcku [Catalytic activity/Vol]17 U/L Iskjkj87-95GmpltiBrecksville Va / Crille HospitalComment on above:Performed By: #### [id number] #### [facility] [address] [place] [address] 75105JCPLQKTXLctdbuq By: Moraima Hodge on 74-87-4327Ruvg HCG ( test) QlNegative (02/17/24 2:41 AM)NormalCOMANCHE COUNTY [facility] Man SeroeGFRon 28-10-7307zMLG353 mL/min/1.73 d0Pkpohn >=59[facility] Luke InstituteComment on above:Performed By: #### [id number] #### [facility] [address] [address]YOTQpr 28-42-8970OMDQFaarzv TextNoalLsheltering arms hospital HospitalEM & nerve conductionon 81-98-5125Hpbckonorc: Status: Normal Study Referral Diagnosis: Peripheral Neuropathy Final Diagnosis: Peripheral Neuropathy Extensive electrodiagnostic examination of the left lower extremity with a more limited examinationof the left upper extremity is normal. Specifically, there is no evidence of a peripheral neuropathy of the large-fiber type or of a left lumbosacral motor radiculopathy. Rhett Baez MD NEUROLOGYChemRhett whelan MD - 12/12/2023 IMPRESSION: Impression: Status: Normal Study Referral Diagnosis: Peripheral Neuropathy Final Diagnosis: Peripheral Neuropathy Extensive electrodiagnostic examination of the left lower extremity with a more limited examinationof the left upper extremity is normal. Specifically, there is no evidence of a peripheral neuropathy of the large-fiber type or of a left lumbosacral motor radiculopathy. Rhett Baez MD [facility] Work Phone: [facility] Work Phone: aMINOLEVULINIC ACID, URINEon 83-63-1974Qudouxclzm duration (Unsp spec)24 hrNoHolzer Medical Center – Jackson Comment on above:Result Comment: Per 24h calculations are provided to aid interpretation for collections with a duration of 24 hours and an average daily urine volume. For specimens with notable deviations in collection time or volume, ratios of analytes to a corresponding urine creatinine concentration may assist in result interpretation.Performed By: #### 2157-6 #### DEMETRIS RIZO ([id number]) [facility] ([facility]) [address] [place] [address] 35130Qcejstcbqd (24H U) [Mass/Time]790 mg/nXvicer869-0769NdmczoozmyTrumbull Regional Medical CenterComment on above:Performed By: #### 2157-6 #### DEMETRIS RIZO (84969) [facility] ([facility] [place]) [address] [place] [address]Uoohxu Comment: Performed By: [employer] [address] [place] [address] [employer] Operator: Gallo Sharif MD, PhD CLIA Number: [id number] (U) [Mass/Vol]79 mg/dLNoHolzer Medical Center – JacksonComment on above:Result Comment: Performed By: [employer] [address] [place] [address] [employer] Operator: Gallo Sharif MD, PhD CLIA Number: [id number] By: #### 2157-6 #### BENNIEIBMIS RIZO (87823) [facility] ([facility]) [address] [address] 45393Eqncu aminolevulinate (24H U) [Moles/Time]12 umol/dNormal0-60 [facility] CenterComment on above:Performed By: #### 2157-6 #### BENNIEIBMIS RIZO (30828) [facility] ([facility]) [address] [address] 25040Viehj aminolevulinate (U) [Moles/Vol]12 umol/LNormal0-35 [facility] CenterComment on above:Performed By: #### 2157-6 #### DEMETRIS RIZO (25049) [facility] ([facility]) [address] [address] 68449Rxbzdjps volume Unsp time (U)1000 mLNormalUnMercy HealthComment on above:Performed By: #### 2157-6 #### BENNIEIBMIS RIZO (10020) [facility] ([facility]) [address] [address] 48004Gmrmwyjp 58-75-0440Hdzjpv (U) [Mass/Vol]5 ug/LNormalNot Estab. [facility] Medical CenterComment on above:Order Comment: Test(s) 662825-Szumaa, Urinewas developed and its performance characteristics determinedby [facility]. It has not been cleared or approved by the Foodand Drug Administration.Performed at:01 - [address], [place], [place] [id number] Director: Lee Ann Guthrie MD, Phone: [phone] at: 02 - [address] [id number] Director: Rambo Altamirano MD, Phone: [phone] Comment: Detection Limit = 1Performed By: #### 2157-6 #### DEMETRIS RIZO (22517) [facility] ([facility]) [address] [address] 57126Byjeha (U) [Mass/Vol]on 63-81-5960Utrnxw (24H U) [Mass/Time]5 ug/24 hrNormal3-35[facility] Medical CenterComment on above: Order Comment: Test(s) 667788-Yfqspx, Urinewas developed and its performance characteristics determinedby [facility]. It has not been cleared or approved by the Foodand Drug Administration.Performed at: - [facility] [address], [place], [place] [id number] Director: Lee Ann Guthrie MD, Phone: [phone] at: - [facility] [id number] Director: Rambo Altamirano MD, Phone: [phone] By: #### 2157-6 #### DEMETRIS RIZO (11891) [facility] ([facility] [place]) [address] [address] 09671Bpblwv/Creatinine (U) [Mass ratio]7 ug/g creatNormal0-49 [facility] CenterComment on above:Order Comment: Test(s) 712285-Ymwvps, Urinewas developed and its performance characteristics determinedby [facility]. It has not been cleared or approved by the Foodand Drug Administration.Performed at: - [facility] [address], [place], [place] [id number] Director: Lee Ann Guthrie MD, Phone: [phone] at: - [facility] [address] [id number] Director: Rambo Altamirano MD, Phone: [phone] By: #### 2157-6 #### DEMETRIS RIZO (26794) [facility] ([facility] [place]) [address] [address] 05239Tgvvlnsfkb (U) [Mass/Vol]0.74 g/LNormal0.30-3.00[facility] Medical CenterComment on above:Order Comment: Test(s) 527745-Utkpcs, Urinewas developed and its performance characteristics determi efrain [facility]. It has not been cleared or approved by the Foodand Drug Administration.Performed at: - [facility] [address], [place], [place] [id number] Director: Lee Ann Guthrie MD, Phone: [phone] at: - [facility] [address] [place], [place] [id number] Director: Rambo Altamiraon MD, Phone: [phone] Comment: Detection Limit = 0.10Performed By: #### 2157-6 #### ANAIBELICATHRYN RIZO (28691) [facility] ([facility] [place]) [address] [address] 84739AXKTSXFJVCQUK, FRACTIONATED, URINE (24 HOUR OR RANDOM)on 00-42-8915Orempnktzgse (24H U) [Mass/Time]53 ug/nIlonvd92-412IaaswdkuzjTrumbull Regional Medical CenterComment on above:Performed By: #### 2157-6 #### BENNIEIBMIS RIZO (76123) [facility] ([facility] [place]) [address] [address] 00322Ekzjkgkzknib (24H U) [Mass/Vol]53 ug/LNormalTrumbull Regional Medical CenterComment on above:Performed By: #### 2157-6 #### BENNIEIBIMS RIZO (98391) [facility] ([facility] [place]) [address] [address] 49975Atzdtixoibin and Normetanephrine Ramirez (U) [Interp]See Newark HospitalComment on above:Result Comment: TEST INFORMATION: Metanephrines Fractionated, Urine Smaller increases in metanephrine and/or normetanephrine concentrations (less than two times the upper reference limit) usually are the result of physiological stimuli, drugs, or improper specimen collection. Essential hypertension is often associated with slight elevations (metanephrine less than 400 ug/d and normetanephrine less than 900 ug/d). Elevated concentrations may be due to intense physical activity, life-threatening illness, and drug interferences. Significant elevation of one or both metanephrines (three or more times the upper reference limit) is associated with an increased probability of a neuroendocrine tumor. Access complete set of age- and/or gender-specific reference intervals for this test in the [employer] [facility] Test Directory ([employer]). This test was developed and its performance characteristics determined by [employer]. It has not been cleared or approved by the [place] Food and Drug Administration. This test was performed in a CLIA certified laboratory and is intended for clinical purposes.Performed By: #### 2157-6 #### DEMETRIS RIZO (71521) [facility] ([facility]) [address] [address] 44065Eriluirvqxlr/Creatinine (24H U) [Mass ratio]67 ug/g CRTNormal 0-300[facility] Medical CenterComment on above:Performed By: #### 2157-6 #### DEMETRIS RIZO (57630) [facility] ([facility] [place]) [address] [address] 96185Dlvnqwjiolsstgg (24H U) [Mass/Time]108 ug/bDvrpvy88-108 [facility] CenterComment on above:Performed By: #### 2157-6 #### DEMETRIS RIZO (45599) [facility] ([facility] [place]) [address] [address] 31775Cyulbrbamwsdjpa (24H U) [Mass/Vol]108 ug/LNormalTrumbull Regional Medical CenterComment on above:Performed By: #### 2157-6 #### DEMETRIS RIZO (08314) [facility] ([facility]) [address] [place] [address] 97897Ihulshoqkcyltqt/Creatinine (24H U) [Mass ratio]137 ug/g BIZTALK CONSULTANT Normal0-400[facility] Medical CenterComment on above: Performed By: #### 2157-6 #### DEMETRIS RIZO (96573) [facility] ([facility]) [address] [address] 61054STQBZYJHZFJTCQU, 24 HOUR URINEon 73-81-2552Dtglmzfnkrxlqab (24H U) [Mass/Time]0.6 mg/24 hrNormal0.0-1.5UnMercy HealthComment on above:Order Comment: Test(s) 977732-Dxwlihmpogxnswm,Qn,Uwas developed and its performance characteristicsdetermhca flor[facility]. It has not been cleared or approved by the Foodand Drug Administration.Performed at: 02 - [facility] [address] [id number] Director: Rambo Altamirano MD, Phone: [phone] By: #### 2157-6 #### DEMETRIS RIZO (79738) [facility] ([facility] [place]) [address] [address] 85488Riwdszsieeewlna (24H U) [Mass/Vol]0.6 mg/LNormal0.0-2.0 [facility] CenterComment on above:Order Comment: Test(s) 409452-Tvnfzknjtnrxibl,Qn,Uwas developed and its performance characteristicsdetermined [facility]. It has not been cleared or approved by the Foodand Drug Administration.Performed at: - [facility] [address] [id number] Director: Rambo Altamirano MD, Phone: [phone] By: #### 2157-6 #### DEMETRIS RIZO (26276) [facility] ([facility] [place]) [address] [address] 33663MWMJZJFCL PANEL, BLOODon 18816-Xhdnozvcjntdrqkrziuhfhpght (C5-[place]) [Moles/Vol]0.02 umol/LNormal<=0.07UnMercy HealthComment on above:Performed By: #### 50927-2 #### DEMETRIS RIZO (26644) [facility] ([facility] [place]) [address] [address] 844419-Wcozpfxzkkjpphkempbadszbglbjf (C14:1-[place]) [Moles/Vol]<0.01 Normal<=0.04UnMercy HealthComment on above: Performed By: #### 99216-0 #### DEMETRIS ANA ROMIE (30049) [facility] ([facility]) [address] [address] 44417Exeibcgmbpjwn pattern [Interp]NormalNormalUniversKettering Health MiamisburgComment on above:Result Comment: Results reviewed and interpreted by Ana M Cuevas, PhD, [facility] INTERPRETIVE INFORMATION: Acylcarnitine, Plasma Interpretation This test was developed and its performance characteristics determined by [employer]. It has not been cleared or approved by the US Food and Drug Administration. This test was performed in a CLIA certified laboratory and is intended for clinical purposes.Performed By: #### 60089-5 #### DEMETRIS MCMULLEN RIO ROMIE (39027) [facility] ([facility] [place]) [address] [address] 24537Jfkwoeyujiohskol+Isobutyrylcarnitine (C4) [Moles/Vol]0.09 umol/L Normal<=0.42[facility] Medical CenterComment on above: Performed By: #### 15214-9 #### BENNIEIBMIS MCMULLEN RIO ROMIE (44967) [facility] ([facility]) [address] [address] 69132J3 [Moles/Vol]34 umol/JIefnwx57-97KmovrgcuflTrumbull Regional Medical CenterComment on above:Performed By: #### 10823-3 #### DEMETRIS MCMULLEN RIO ROMIE (83301) [facility] ([facility]) [address] [address] 09364C07 [Moles/Vol]0.03 umol/LNormal<=0.33[facility] Medical CenterComment on above:Performed By: #### 18503-5 #### BENNIEIBMIS ANA ROMIE (11475) [facility] ([facility]) [address] [address] 23992U04:1 [Moles/Vol]0.04 umol/LNormal<=0.27[facility] Medical CenterComment on above:Performed By: #### 60041-3 #### BENNIEIBMIS MCMULLEN RIO ROMIE (86261) [facility]) [address] [address] 39798E79 [Moles/Vol]0.02 umol/LNormal<=0.13[facility] Medical CenterComment on above:Performed By: #### 11330-9 #### DEMETRIS RIZO (79077) [facility]) [address] [address] 56617T01-OW [Moles/Vol]<0.01Normal<=0.02[facility] Medical CenterComment on above:Performed By: #### 50086-1 #### DEMETRIS RIZO (82522) [facility]) [address] [address] 17201T37:1 [Moles/Vol]0.01 umol/LNormal<=0.13UnMercy HealthComment on above:Performed By: #### 82645-7 #### DEMETRIS RIZO (65794) [facility] ([facility]) [address] [address] 78293K99 [Moles/Vol]0.01 umol/LNormal<=0.06[facility] Medical CenterComment on above:Performed By: #### 79231-0 #### DEMETRIS RIZO (03671) [facility] ([facility]) [address] [address] 89049G61-JM [Moles/Vol]<0.01Normal<=0.01[facility] CenterComment on above:Performed By: #### 34368-2 #### BENNIEIBMIS MCMULLEN RIO ROMIE (36120) [facility]) [address] [place] [address] 17925F52:1 [Moles/Vol]0.02 umol/LNormal<=0.15[facility] CenterComment on above:Performed By: #### 39069-2 #### DEMETRIS RZIO (02529) [facility]) [address] [place] [address] 53798O40:2 [Moles/Vol]0.01 umol/LNormal<=0.08[facility] Medical CenterComment on above:Performed By: #### 89255-7 #### DEMETRIS MCMULLEN TIERRA GRUBBS (61574) [facility] ([facility]) [address] [place] [address] 85998G09 [Moles/Vol]0.04 umol/LNormal<=0.12UnMercy HealthComment on above:Performed By: #### 41330-8 #### DEMETRIS MCMULLEN RIO ROMIE (68111) [facility]) [address] [address] 66439S99-LG [Moles/Vol]<0.01Normal<=0.02[facility] CenterComment on above:Performed By: #### 66947-3 #### DEMETRIS MCMULLEN RIO ROMIE (01663) [facility]) [address] [address] 12516Z97:1 [Moles/Vol]0.01 umol/LNormal<=0.04[facility] CenterComment on above:Performed By: #### 17217-1 #### DEMETRIS MCMULLEN TIERRA GRUBBS (93413) [facility]) [address] [address] 59510W71:1-[place] [Moles/Vol]<0.01Normal<=0.02[facility] CenterComment on above:Performed By: #### 61260-9 #### DEMETRIS MCMULLEN TIERRA GRUBBS (67957) [facility]) [address] [address] 34222T15 [Moles/Vol]0.02 umol/LNormal<=0.06[facility] CenterComment on above:Performed By: #### 98326-5 #### DEMETRIS MCMULLEN RIO ROMIE (51371) [facility]) [address] [address] 51839X02-CW [Moles/Vol]<0.01Normal<=0.02[facility] CenterComment on above:Result Comment: Performed By: [employer] [address] [place] [address] [employer] Operator: Gallo Sharif MD, PhD CLIA Number: [id number] By: #### 83134-5 #### DEMETRIS RIZO (29043) [facility] ([facility]) [address] [place], [place] [address]C18:1 [Moles/Vol]0.06 umol/LNormal<=0.18UnMercy HealthComment on above:Performed By: #### 81933-6 #### DEMETRIS RIZO (34630) [facility] ([facility]) [address] [place], [place] [address]C18:1-[place] [Moles/Vol]<0.01Normal<=0.02[facility] CenterComment on above:Performed By: #### 88921-5 #### BENNIEIBMIS RIZO (15127) [facility] ([facility]) [address] [address] 44048F39:2 [Moles/Vol]0.04 umol/LNormal<=0.10[facility] CenterComment on above:Performed By: #### 41999-4 #### DEMETRIS RIZO (05371) [facility]) [address] [address] 46252U12:2-[place] [Moles/Vol]<0.01Normal<=0.02[facility] CenterComment on above:Performed By: #### 85828-6 #### BENNIEIBMIS MCMULLEN RIO ROMIE (15105) [facility] ([facility] [place]) [address] [address] 19906M9 [Moles/Vol]2.88 umol/LLow2.93-15.06[facility] Medical CenterComment on above:Performed By: #### 67879-2 #### BENNIEIBMIS RIZO (43692) [facility] ([facility]) [address] [address] 90027T2 [Moles/Vol]0.21 umol/LNormal<=0.82[facility] Medical CenterComment on above:Performed By: #### 43838-5 #### BENNIEIBMIS KEMI GRUBBS (04866) [facility]) [address] [address] 66784J6-LO [Moles/Vol]0.05 umol/LNormal<=0.23[facility] CenterComment on above:Performed By: #### 54421-2 #### BENNIEIBMIS MCMULLEN RIO ROMIE (02104) [facility]) [address] [address] [id number] [Moles/Vol]0.02 umol/LNormal<=0.12[facility] CenterComment on above:Performed By: #### 62101-3 #### BENNIEIBMIS MCMULLEN TIERRA GRUBBS ([id number]) [facility] ([facility]) [address] [place] [address] [id number] [Moles/Vol]<0.01Normal<=0.22[facility] CenterComment on above:Performed By: #### 88895-7 #### BENNIEIBMIS MCMULLEN TIERRA GRUBBS ([id number]) [facility] ([facility]) [address] [place] [address] [id number] [Moles/Vol]0.21 umol/LNormal<=0.60[facility] CenterComment on above:Performed By: #### 98205-8 #### ANAIBELICATHRYN ANA ROMIE ([id number]) [facility] ([facility]) [address] [address] [id number] [Moles/Vol]37 umol/UUibwqs63-67TzyqsqmkfxTrumbull Regional Medical CenterComment on above:Performed By: #### 40700-3 #### BENNIEIBELICATHRYN ANA ROMIE ([id number]) [facility] ([facility]) [address] [address] [id number] esters [Moles/Vol]3 umol/LLow5-29UnMercy HealthComment on above:Performed By: #### 90073-5 #### DEMETRIS RIZO ([id number]) [facility] ([facility]) [address] [address] 13070Eyhepjsqo esters/Carnitine.free (C0) [Molar ratio]0.1 ratio Normal0.1-1.0[facility] CenterComment on above: Performed By: #### 33281-0 #### DEMETRIS RIZO ([id number]) [facility] ([facility]) [address] [address] [id number]+Methylbutyrylcarnitine (C5) [Moles/Vol]0.06 umol/LNormal<=0.24[facility] CenterComment on above: Performed By: #### 64637-1 #### DEMETRIS RIZO ([id number]) [facility] ([facility]) [address] [place] [address] 99297Juxrzaxvaoxqef 3 panel (P) [Mass/Vol]on 29-92-5368LMNeolzc [Mass/Vol]<29Nqeftt5-81OigokqvmknTrumbull Regional Medical CenterComment on above:Order Comment: Performed at: 01 - [facility] [address] [id number] Director: Rambo Altamirano MD, Phone: [phone] Performed By: #### 2157-6 #### DEMETRIS RIZO ([id number]) [facility] ([facility]) [address] [place] [address] 50157LEKUSREjihw (P) [Mass/Vol]<30Mefbuc9-85MiqqauiukmMercy HealthComment on above:Order Comment: Performed at: 01 - [facility] [id number] [place], [place] [id number] Director: Rambo Altamirano MD, Phone: [phone] By: #### 2157-6 #### DEMETRIS RIZO (56696) [facility] ([facility]) [address] [address] 05760Bxmhcjjjsjcjce (P) [Mass/Vol]251 pg/mLNormal0-874Trumbull Regional Medical CenterComment on above:Order Comment: Performed at: - [facility] [address] [id number] Director: Rambo Altamirano MD, Phone: [phone] By: #### 2157-6 #### DEMETRIS RIZO (75427) [facility] ([facility]) [address] [place] [address] 14938Mqskxwll Q10 [Mass/Vol]on 24-56-6392FFZT RESULTSee Scanned ResultAvita Health System Ontario HospitalComment on above: Performed By: #### 30604-4 #### DEMETRIS RIZO (76164) [facility] ([facility]) [address] [address] 89189Ahxptdpduhwvid 88-09-0018Axmelnlecrqs Ql (S)NEG 72HourNormalNEG 72HourUPremier Health Miami Valley HospitalComment on above:Result Comment: This test was developed and its performance characteristics determined by [facility]. It has not been cleared or approved by the US Food and Drug Administration. This test was performed in a CLIA certified laboratory and is intended for clinical purposes. Performed By: [facility] [address] [place] [address] [employer] Operator: Gallo Sharif MD, PhD [facility] Number: [id number] By: #### 2157-6 #### DEMETRIS RIZO ([id number]) [facility] ([facility]) [address] [address] 44524Mgaxoil^1H post 75 g glucose Sabrina 28-18-4754Jluvqvk 1 Hr post 75 g glucose PO [Mass/Vol]71 mg/dLAvita Health System Ontario HospitalComment on above:Order Comment: The [place] [employer] does not recommend Oral Glucose Tolerance testing (OGTT) of non- patients. The World Health Organization recommends a 2 hour OGTT only for patients with fasting Glucose levelsof 110 to <126mg/dl. Interpretive criteria for other conditions are not defined. reference: shira hamlin,et al. Clinical Chemistry 2002;48:436-472Performed By: #### 5 #### DEMETRIS RIZO (45904) [facility] ([facility]) [address] [address] 76732Xnobteh^2H post 75 g glucose Sabrina 22-78-7239Dcsrtyc 2 Hr post 75 g glucose PO [Mass/Vol]78 mg/dLNoHolzer Medical Center – JacksonComment on above:Order Comment: The [place] [employer] does not recommend Oral Glucose Tolerance testing (OGTT) of non- patients. The World Health Organization recommends a 2 hour OGTT only for patients with fasting Glucose levelsof 110 to <126mg/dl. Interpretive criteria for other conditions are not defined. reference: shira hamlin,et al. Clinical Chemistry 2002;48:436-472Performed By: #### 5 #### DEMETRIS RIZO (60791) [facility] ([facility]) [address] [address] 64965Gmfwppo^3H post 75 g glucose Sabrina 34-11-7491Ikhefam 3 Hr post 75 g glucose PO [Mass/Vol]86 mg/dLNoHolzer Medical Center – JacksonComment on above:Order Comment: The [place] [employer] does not recommend Oral Glucose Tolerance testing (OGTT) of non- patients. The World Health Organization recommends a 2 hour OGTT only for patients with fasting Glucose levelsof 110 to <126mg/dl. Interpretive criteria for other conditions are not defined. reference: shira hamlin,et al. Clinical Chemistry 2002;48:436-472Performed By: #### 1987-06 #### DEMETRIS MCMULLEN RIO ROMIE ([id number]) [facility] ([facility]) [address] [address] 79632Dljzoax^post CFston 74-74-6762Altvnvh post fast [Mass/Vol]91 mg/dLNoHolzer Medical Center – JacksonComment on above:Order Comment: The [place] [employer] does not recommend Oral Glucose Tolerance testing (OGTT) of non- patients. The World Health Organization recommends a 2 hour OGTT only for patients with fasting Glucose levelsof 110 to <126mg/dl. Interpretive criteria for other conditions are not defined. reference: shira hamlin,et al. Clinical Chemistry 2002;48:436-472Performed By: #### 1987-5 #### DEMETRIS RIZO (79907) [facility] ([facility]) [address] [address] 22090Hyyefhzzfwdvpx 99-90-8701Grpywjkvblof [Moles/Vol]13.85 umol/L Normal5.00-13.90Trumbull Regional Medical CenterComment on above: Order Comment: Reference values apply to fasting specimens only. Non-fasting specimens produce slightly higher and likely clinically insignificant changes in homocysteine levels.Performed By: #### 1987-06 #### DEMETRIS RIZO ([id number]) [facility] ([facility]) [address] [address] 20510OCBOADWBWFWKX LAB TESTon 95-83-5079VBXM RESULTSee Scanned Result Av[facility] Health System Ontario HospitalComment on above:Order Comment: Collect: Plain Red or Serum Separator Tube (SST).Specimen Preparation: Separate fromcells TRIP or within 2 hours of collection. Transfer 1 mL to an [facility] Standard Transport Tube.Storage/Transport Temperature: Refrigerated.Stability: After separation from cells: Ambient: 48 hours; Refr igerated: 2 weeks; Frozen: 1 monthPerformed By: #### 12440-9 #### DEMETRIS RIZO ([id number]) [facility] ([facility]) [address] [address] 74815Pecuv Comment: Preferred Specimen(s): 2 mL serumMinimum Volume: 0.5 mLCollection Instructions: Specimen need not be refrigerated or frozen. Collect 2-3 mL of blood in a red-top or Serum separator tube (SST). If possible, separate serum from clot and place into white tube provided with [employer]' collection kits. If separation facilities are not available, the blood can be sent in the tubeused for collection.Transport Container: Transport tubeTransport Temperature: Room temperatureSpecimen Stability??? Room temperature: 5 days??? Refrigerated: 5 days??? Frozen: 1 yearReject Criteria: G ross hemolysis ??? Grossly lipemic ??? Grossly icteric ??? Specimens other than serumSetup ScheduleSet up: Once every 2 weeks; Report available: 2-3 weeks Performed By: #### 2157-6 #### DEMETRIS RIZO (08302) [facility] ([facility]) [address] [address] 32770Znfgm Comment: Supplies: Sarstedt Aliquot Tube, 5 mL (T914)Collection Container/Tube:Preferred: RedtopAcceptable: Serum gelSubmission Container/Tube: Plastic vialSpecimen Volume: 4 mLCollection Instructions: Centrifuge and aliquot serum into a plastic vial.Panel Contains:GANG AChR Ganglionic Neuronal Ab,ANN1S Anti-Neuronal Nuclear Ab, Type 1APBIS AP3B2 IFA,CRMS CRMP-5-IgG,CS2CS CASPR2-IgG CBA,DPPIS DPPX Ab IFA, SLG1CS LGI1-IgG CBA, SPCAB2 Purkinje Cell Cytoplasmic Ab Type 2Methylmalonateon 11-08-2023 Methylmalonate [Moles/Vol]0.59 umol/LHigh0.00-0.40Trumbull Regional Medical CenterComment on above:Result Comment: Slight elevation 0.41-0.99 umol/L Consistent with mild vitamin B12 deficiency, renal insufficiency, or intravascular volume contraction. Moderate elevation 1.00-9.99 umol/L Consistent with mild vitamin B12 deficiency. Massive elevation - Greater than or equal to 10 umol/L Consistent with significant vitamin B12 deficiency or with inborn errors of metabolism. INTERPRETIVE INFORMATION: MMA Serum/Plasma, Vitamin B12 Status This test was developed and its performance characteristics determined by [facility]. It has not been cleared or approved by the US Food and Drug Administration. This test was performed in a CLIA certified laboratory and is intended for clinical purposes. Performed By: [facility] [address] [place] [address] [employer] Machine Operator: Gallo Sharif MD, PhD [place] Number: [id number] By: #### 26635-1 #### DEMETRIS RIZO (60486) [facility] ([facility]) [address] [address] 75662Fjaphjlvlu pneumoniae Ab.IgGon 11-08-2023M. pneumoniae IgG IA Qn (S)0.55 U/LHigh<=0.09UnMercy HealthComment on above:Result Comment: INTERPRETIVE INFORMATION: Mycoplasma pneumoniae Ab, IgG 0.09 U/L or less ............ Negative 0.10 - 0.32 U/L ............. Equivocal 0.33 U/L or greater ......... Positive INTERPRETIVE DATA: Over 50% of healthy adults have a relatively high background of specific M. pneumoniae IgG antibodies in their sera, probably because of past M. pneumoniae infections. Therefore, paired sera obtained with a time interval of 1 to 3 weeks are highly recommended in adults to confirm reinfection by M. pneumoniae, which is demonstrated by a significant change in IgG antibodies. A significant change is indicated if one sample is above 0.32 U/L and the other is below 0.20 U/L. Performed By: [facility] [address] [place] [address] [employer] Operator: Gallo Sharif MD, PhD CLIA Number: [id number] By: #### 58444-7 #### DEMETRIS RIZO ([id number]) [facility] ([facility]) [address] [address] 60304Eedizjfndu pneumoniae Ab.IgMon 11-08-2023M. pneumoniae IgM IA Qn (S)0.09 U/LNormal<=0.76Trumbull Regional Medical CenterComment on above:Result Comment: INTERPRETIVE INFORMATION: Mycoplasma pneumoniae Ab, IgM 0.76 U/L or less .......... Negative: No clinically significant amount of M. pneumoniae IgM antibody detected. 0.77 - 0.95 U/L ........... Low Positive: M. pneumoniae- specific IgM presumptively detected. Collection of a follow-up sample in 1-2 weeks is recommended to assure reactivity. 0.96 U/L or greater ....... Positive: Highly significant amount of M. pneumoniae- specific IgM antibody detected. However, low levels of IgM antibodies may occasionally persist for more than 12 months post-infection. Performed By: [facility] [address] [place] [address] [employer] Operator: Gallo Sharif MD, PhD [place] Number: [id number] By: #### 29629-0 #### DEMETRIS RIZO (17452) [facility] ([facility]) [address] [address] 92131Zxyzzbwpuohaqj Ab panel (S)on 09-24-5885Fplthabuzqi IgG IA Ql (S)NegativeNormalNegativeTrumbull Regional Medical CenterComment on above:Result Comment: ADDITIONAL INFORMATION This test was developed and its performance characteristics determined by [facility] in a manner consistent with CLIA requirements. This test has not been cleared or approved by the U.S. Food and Drug Administration.Performed By: #### 2157-6 #### DEMETRIS RIZO (11895) [facility] ([facility]) [address] [address] 16148Gyfvczccuz comment [Interpretation] NarrativeNone.[facility] Boardman HospitalComment on above:Performed By: #### 2157-6 #### DEMETRIS RIZO (92667) [facility] ([facility]) [address] [address] 44510JG5 Ab IF QlNegativeNormalNegativeTrumbull Regional Medical CenterComment on above:Result Comment: ADDITIONAL INFORMATION This test was developed and its performance characteristics determined by [facility] in a manner consistent with CLIA requirements. This test has not been cleared or approved by the U.S. Food and Drug Administration.Performed By: #### 2157-6 #### DEMETRIS RIZO (63015) [facility] ([facility]) [address] [place] [address] 10868Feyio nuclear type 1 Ab IF Ql (S)NegativeNormalNegative [facility] Medical CenterComment on above:Result Comment: ADDITIONAL INFORMATION This test was developed and its performance characteristics determined by [facility] in a manner consistent with CLIA requirements. This test has not been cleared or approved by the U.S. Food and Drug Administration.Performed By: #### 2157-6 #### DEMETRIS RIZO (25902) [facility] ([facility]) [address] [address] 10717Fhvpwugg nuclear type 1 Ab Ql (S)NegativeNormalNegative [facility] Medical CenterComment on above:Result Comment: ADDITIONAL INFORMATION This test was developed and its performance characteristics determined by [facility] in a manner consistent with CLIA requirements. This test has not been cleared or approved by the U.S. Food and Drug Administration.Performed By: #### 2157-6 #### DEMETRIS RIZO (23447) [facility] ([facility]) [address] [address] 03629Yiukmwdq nuclear type 2 Ab IF Ql (S)NegativeNormalNegative [facility] Medical CenterComment on above:Result Comment: ADDITIONAL INFORMATION This test was developed and its performance characteristics determined by [facility] in a manner consistent with CLIA requirements. This test has not been cleared or approved by the U.S. Food and Drug Administration.Performed By: #### 2157-6 #### DEMETRIS RIZO (30675) [facility] ([facility]) [address] [place] [address] 04953Noshzeek nuclear type 3 Ab Ql (S)NegativeNormalNegative [facility] Medical CenterComment on above:Result Comment: ADDITIONAL INFORMATION This test was developed and its performance characteristics determined by [facility] in a manner consistent with CLIA requirements. This test has not been cleared or approved by the U.S. Food and Drug Administration.Performed By: #### 2157-6 #### DEMETRIS RIZO (09266) [facility] ([facility]) [address] [place] [address] 39167Wwbsvooebpowqj Ab Ramirez (S) [Interp]SEE [facility]uff[facility] HospitalComment on above:Result Comment: A negative basic paraneoplastic evaluation result does not rule out all clinically relevant antibodies. If indicated, a comprehensive neurological phenotype-specific autoimmune/paraneoplastic evaluation (e.g. encephalopathy, movement disorders, myelopathy, or axonal neuropathy) should be considered [email or web address] on/. These evaluations include screening cell-based assays optimized for detection of recently discovered antibodies.Performed By: #### 2157-6 #### DEMETRIS RIZO ([id number]) [facility] ([facility]) [address] [address] 21027ZAC-4 Ab IF Ql (S)NegativeNoUniversity Hospitals Elyria Medical CenterComment on above:Result Comment: ADDITIONAL INFORMATION This test was developed and its performance characteristics determined by [facility] in a manner consistent with CLIA requirements. This test has not been cleared or approved by the U.S. Food and Drug Administration.Performed By: #### 2157-6 #### DEMETRIS RIZO (69337) [facility] ([facility]) [address] [address] 76899VLR-8 Ab IF Ql (S)NegativeNormalNegSelect Medical Specialty Hospital - Southeast OhioComment on above:Result Comment: ADDITIONAL INFORMATION This test was developed and its performance characteristics determined by [facility] in a manner consistent with CLIA requirements. This test has not been cleared or approved by the U.S. Food and Drug Administration.Performed By: #### 2157-6 #### DEMETRIS RIZO (23296) [facility] ([facility]) [address] [address] 77733ZXQ-Tr Ab IF Ql (S)NegativeNormalNegativeTrumbull Regional Medical CenterComment on above:Result Comment: ADDITIONAL INFORMATION This test was developed and its performance characteristics determined by [facility] in a manner consistent with CLIA requirements. This test has not been cleared or approved by the U.S. Food and Drug Administration. Test Performed by: [place] [address] Environmental Protection Officer: Amairani Caldwell Ph.D.; CLIA# [id number] By: #### 2157-6 #### DEMETRIS RIZO (75467) [facility] ([facility]) [address] [address] 41685Fygliqc-spriq calcium channel P/Q type binding IgG+IgM IA (S) [Moles/Vol]0.00 nmol/LNormal<=0.02[facility] Comment on above:Result Comment: ADDITIONAL INFORMATION This test was developed and its performance characteristics determined by [facility] in a manner consistent with CLIA requirements. This test has not been cleared or approved by the U.S. Food and Drug Administration.Performed By: #### 2157-6 #### DEMETRIS RIZO (84509) [facility] ([facility]) [address] [address] 15119Paiobut-teigq potassium channel Ab.IgG+IgM0.00 nmol/LNormal <=0.02UnMercy HealthComment on above:Result Comment: ADDITIONAL INFORMATION This test was developed and its performance characteristics determined by [facility] in a manner consistent with CLIA requirements. This test has not been cleared or approved by the U.S. Food and Drug Administration.Performed By: #### 2157-6 #### DEMETRIS RIZO (56579) [facility] ([facility]) [address] [address] 79249Jrfmvvxxd phosphateon 61-75-9682Fjpatdanl phosphate [Moles/Vol] 42.0 nmol/DVcoazf94.0-125.0UnMercy HealthComment on above:Result Comment: INTERPRETIVE INFORMATION: Vitamin B6 (Pyridoxal 5-Phosphate) Pyridoxal 5'-phosphate measured in a specimen collected following an 8-hour or overnight fast accurately indicates vitamin B6 nutritional status. Non-fasting specimen concentration reflects recent vitamin intake. This test was developed and its performance characteristics determined by [facility]. It has not been cleared or approved by the US Food and Drug Administration. This test was performed in a CLIA certified laboratory and is intended for clinical purposes. Performed By: [facility] [address] [place] [address] [employer] Machine Operator: Gallo Sharif MD, PhD CLIA Number: [id number] By: #### 95460-3 #### DEMETRIS RIZO (47560) [facility] ([facility]) [address] [place] [address] 40679Ocebkzcflajtnzg Abon [id number] Ab Qn32 [IU]/mLNormal<=60 [facility] CenterComment on above:Order Comment: Negative: <=60 U/mLPositive: >60 U/mLPerformed By: #### 1988-5 #### DEMETRIS RIZO (56787) [facility] ([facility]) [address] [address] 82948ROGOQQJ Rashard 77-12-0162Nwgrr tocopherol [Mass/Vol]8.1 mg/LNormal 5.5-18.0[facility] Medical CenterComment on above:Result Comment: This test was developed and its performance characteristics determined by [facility]. It has not been cleared or approved by the US Food and Drug Administration. This test was performed in a CLIA certified laboratory and is intended for clinical purposes.Performed By: #### 63613-4 #### DEMETRIS RIZO (86053) [facility] ([facility]) [address] [address] 12935Jcqz+gamma tocopherol [Mass/Vol]1.0 mg/LNormal0.0-6.0[facility] Medical CenterComment on above:Result Comment: Performed By: [facility] [address] [place] [address] [employer] Ed[employer] Machine Operator: Gallo Sharif MD, PhD CLIA Number: [id number] By: #### 91820-7 #### DEMETRIS RIZO (57543) [facility] ([facility]) [address] [address] 16887Hgzzolaqyc 44-52-2489Lkhdavpi [Catalytic activity/Vol]3.0 mU/mL Normal1.2-7.6Tr[facility] Medical CenterComment on above: Result Comment: REFERENCE INTERVAL: Aldolase Access complete set of age- and/or gender-specific reference intervals for this test in the [employer] Laboratory Test Directory ([employer]). Performed By: [facility] [address] [place] [address] [employer]ing [employer] Edging Machine Operator: Gallo Sharif MD, PhD CLIA Number: [id number] By: #### 4537-7 #### DEMETRIS RIZO (07052) [facility] ([facility]) [address] [address] 62611J reactive proteinon 58-73-0818SKO [Mass/Vol]mg/LNormal<1.00 [facility] CenterComment on above:Performed By: #### 1988-5 #### DEMETRIS RIZO (75578) [facility] ([facility]) [address] [address] 32365JGB W Auto Differential panel (Bld)on 09-91-7933Wdodoicot (Bld) [#/Vol]0.05 x10*3/uLNormal0.00-0.10[facility] Comment on above:Performed By: #### 95694-1 #### DEMETRIS RIZO (06900) [facility] ([facility]) [address] [address] 01006Goyjismky/100 WBC (Bld)0.6 %Normal0.0-2.0UnMercy HealthComment on above:Performed By: #### 58128-7 #### DEMETRIS RIZO (79955) [facility] ([facility]) [address] [address] 09585Tdgivraplhk (Bld) [#/Vol]0.23 x10*3/uLNormal0.00-0.70UnMercy HealthComment on above:Performed By: #### 09459-2 #### BENNIEIBMIS RIZO (15966) [facility] ([facility]) [address] [address] 09170Oamrymjsghk/100 WBC (Bld)2.9 %Normal0.0-6.0UnMercy HealthComment on above:Performed By: #### 65206-7 #### DEMETRIS RIZO (22752) [facility] ([facility]) [address] [address] 10747Hnnvbyivtvr distribution width (RBC) [Ratio]13.1 %Normal 11.5-14.5[facility] Medical CenterComment on above:Performed By: #### 24964-5 #### DEMETRIS RIZO (81585) [facility] ([facility]) [address] [address] 62958Xhyvzsqyhi (Bld) [Volume fraction]37.3 %Sfvxtt49.0-46.0 [facility] CenterComment on above:Performed By: #### 10693-5 #### DEMETRIS MCMULLEN RIO ROMIE (48623) [facility] ([facility]) [address] [address] 17302Qxhcemaewv (Bld) [Mass/Vol]12.4 g/pBOuowes11.0-16.0[facility] Medical CenterComment on above:Performed By: #### 23821-9 #### DEMETRIS RIZO (97467) [facility] ([facility]) [address] [place] [address] 61744Zdhxpryz granulocytes (Bld) [#/Vol]0.03 x10*3/uLNormal0.00-0.70 [facility] CenterComment on above:Performed By: #### 98329-5 #### DEMETRIS RIZO (17999) [facility] ([facility]) [address] [address] 14980Thcycklm granulocytes/100 WBC (Bld)0.4 %Normal0.0-0.9UnMercy HealthComment on above:Result Comment: Immature Granulocyte Count (IG) includes promyelocytes, myelocytes and metamyelocytes but does not include bands. Percent differential counts (%) should be interpreted in the context of the absolute cell counts (cells/UL).Performed By: #### 83116-0 #### DEMETRIS RIZO (94941) [facility] ([facility]) [address] [place] [address] 69165Wprijaxassh (Bld) [#/Vol]2.62 x10*3/uLNormal1.20-4.80[facility] Medical CenterComment on above:Performed By: #### 00014-2 #### DEMETRIS MCMULLEN RIO ROMIE ([id number]) [facility] ([facility]) [address] [place] [address] 06069Ytprgrvgntm/100 WBC (Bld)32.6 %Yohofx89.0-44.0[facility] Medical CenterComment on above:Performed By: #### 37162-7 #### BENNIEIBMIS MCMULLEN RIO ROMIE (50950) [facility] ([facility]) [address] [place] [address] 66861HEZ (RBC) [Entitic mass]27.7 tnOnxoes42.0-34.0[facility] Medical CenterComment on above:Performed By: #### 21382-1 #### DEMETRIS RIZO (11689) [facility] ([facility]) [address] [place] [address] 54590RDNU (RBC) [Mass/Vol]33.2 g/wEAycucp66.0-36.0UnMercy HealthComment on above:Performed By: #### 24455-2 #### DEMETRIS RIZO (00212) [facility] ([facility] [place]) [address] [place] [address] 43733QBC (RBC) [Entitic vol]83 bKOrdcrc94-428MkzktrbotyMercy HealthComment on above:Performed By: #### 63381-0 #### DEMETRIS RIZO (48965) [facility] ([facility] [place]) [address] [place] [address] 70371Qwvakdaml (Bld) [#/Vol]0.63 x10*3/uLNormal0.10-1.00[facility] CenterComment on above:Performed By: #### 44105-7 #### DEMETRIS RIZO (38584) [facility] ([facility] [place]) [address] [place] [address] 89940Eaczmaoyi/100 WBC (Bld)7.8 %Normal2.0-10.0[facility] Medical CenterComment on above:Performed By: #### 31060-4 #### BENNIEIBMIS RIZO (25697) [facility] ([facility]) [address] [place] [address] 89452Mgeymtnzvyl (Bld) [#/Vol]4.47 x10*3/uLNormal1.20-7.70[facility] Medical CenterComment on above:Result Comment: Percent differential counts (%) should be interpreted in the context of the absolute cell counts (cells/uL).Performed By: #### 55181-3 #### DEMETRIS RIZO (83382) [facility] ([facility]) [address] [address] 59310Trlpionngxs/100 WBC (Bld)55.7 %Bxjxjh45.0-80.0[facility] Medical CenterComment on above:Performed By: #### 41176-9 #### BENNIEIBMIS RIZO (18774) [facility] ([facility]) [address] [address] 75046Lcferunfz RBC/100 WBC (Bld) [Ratio]0.0 /100 WBCsNormal0.0-0.0 [facility] CenterComment on above:Performed By: #### 26220-2 #### BENNIEIBMIS RIZO (81036) [facility] ([facility]) [address] [address] 33856Epoksjwbq (Bld) [#/Vol]315 x10*3/nKKuvqph739-839ZykeblndryMercy HealthComment on above:Performed By: #### 60807-7 #### DEMETRIS RIZO (41489) [facility] ([facility]) [address] [address] 44573LEL (Bld) [#/Vol]4.47 x10*6/uLNormal4.00-5.20[facility] CenterComment on above:Performed By: #### 74987-6 #### BENNIEIBMIS RIZO (97768) [facility] ([facility]) [address] [address] 71773RCG (Bld) [#/Vol]8.0 x10*3/uLNormal4.4-11.3[facility] Medical CenterComment on above:Performed By: #### 91708-8 #### BENNIEIBMIS RIZO (88386) [facility] ([facility]) [address] [address] 61157Xwohctoiiiutvcw 48-53-2781Ywkvdqwhejrkx [Mass/Vol]29.2 mg/dL Zjcylp53.0-60.0UnMercy HealthComment on above: Performed By: #### 4537-7 #### DEMETRIS RIZO (40869) [facility] ([facility]) [address] [address] 44986Kbinsbquiwvk 51-90-0522Lfeymsudk (Vitamin B12) [Mass/Vol]198 pg/cWPvi376-110RnfjhqiefzMercy HealthComment on above: Performed By: #### 2132-9 #### DEMETRIS RIZO (86545) [facility] ([facility]) [address] [address] 38811Ogmpmmognmjlx metabolic 2000 panelon 61-02-7018Wfilvdt BCP dye [Mass/Vol]4.3 g/dLNormal3.4-5.0[facility] Comment on above:Performed By: #### 04078-8 #### DEMETRIS RIZO (53788) [facility] ([facility]) [address] [address] 18132XPY [Catalytic activity/Vol]63 U/TDdzfnw29-941CeeadbysnxTrumbull Regional Medical CenterComment on above:Performed By: #### 57978-4 #### DEMETRIS RIZO (09301) [facility] ([facility]) [address] [address] 51533BTL With P-5'-P [Catalytic activity/Vol]11 U/LNormal7-45 [facility] CenterComment on above:Result Comment: Patients treated with Sulfasalazine may generate falsely decreased results for ALT.Performed By: #### 76583-0 #### DEMETRIS RIZO (46940) [facility] ([facility]) [address] [address] 67325Zkbss gap [Moles/Vol]11 mmol/QDohsfr50-42XvjymjstfqTrumbull Regional Medical CenterComment on above:Performed By: #### 52670-9 #### DEMETRIS RIZO (25216) [facility] ([facility]) [address] [address] 50288YKS With P-5'-P [Catalytic activity/Vol]15 U/LNormal9-39 [facility] CenterComment on above:Performed By: #### 40179-7 #### DEMETRIS RIZO (04940) [facility] ([facility]) [address] [address] 42479Ruwgswyot [Mass/Vol]0.4 mg/dLNormal0.0-1.2UnMercy HealthComment on above:Performed By: #### 77802-9 #### DEMETRIS RIZO (67161) [facility] ([facility]) [address] [address] 56616Ftahnor [Mass/Vol]9.2 mg/dLNormal8.6-10.3UnMercy HealthComment on above:Performed By: #### 59207-8 #### DEMETRIS RIZO (18726) [facility] ([facility]) [address] [address] 14714Rbhninso [Moles/Vol]106 mmol/TEsypia91-196KqtmfuwjwdTrumbull Regional Medical CenterComment on above:Performed By: #### 86797-7 #### DEMETRIS RIZO (54678) [facility] ([facility]) [address] [address] 34403TN2 [Moles/Vol]26 mmol/AWgtdbu34-47JauhqqnbryMercy HealthComment on above:Performed By: #### 96578-1 #### DEMETRIS RIZO (52936) [facility] ([facility]) [address] [address] 60240Mctypbdehl [Mass/Vol]0.79 mg/dLNormal0.50-1.05[facility] Medical CenterComment on above:Performed By: #### 71152-8 #### DEMETRIS RIZO (28891) [facility] ([facility]) [address] [address] 00628PKY/1.73 sq M.predicted MDRD (S/P/Bld) [Vol rate/Area] mL/min/{1.73_m2}Normal>60UnMercy HealthComment on above:Result Comment: Calculations of estimated GFR are performed using the 2020 CKD-EPI Study Refit equation without the race variable for the IDMS-Traceable creatinine methods. https://jasn.asnjournals.org/content/early//ASN.1988370746Kyuvibinq By: #### 09410-5 #### DEMETRIS RIZO (96146) [facility] ([facility]) [address] [address] 04756Zebiafs [Mass/Vol]87 mg/pDSantla12-36OfkksqnrvaMercy HealthComment on above:Performed By: #### 57613-5 #### DEMETRIS RIZO (19762) [facility] ([facility]) [address] [address] 74471Hwgessppg [Moles/Vol]3.8 mmol/LNormal3.5-5.3[facility] Medical CenterComment on above:Performed By: #### 00892-5 #### DEMETRIS RIZO (41627) [facility] ([facility]) [address] [address] 18728Qparjzs [Mass/Vol]6.8 g/dLNormal6.4-8.2[facility] Medical CenterComment on above:Performed By: #### 54452-3 #### DEMETRIS RIZO (44488) [facility] ([facility]) [address] [address] 76956Yvalmh [Moles/Vol]139 mmol/GIhjbtb779-823DtsidgkpzwMercy HealthComment on above:Performed By: #### 01800-0 #### DEMETRIS RIZO (45139) [facility] ([facility]) [address] [address] 23340Puet nitrogen [Mass/Vol]7 mg/dLNormal6-23[facility] CenterComment on above:Performed By: #### 49498-9 #### DEMETRIS RIZO (34018) [facility] ([facility] [place]) [address] [address] 67925Ihajzhpj 52-31-4190Teiggw [Mass/Vol]111.7 ug/cQAcihkz57.0-155.0 [facility] CenterComment on above:Result Comment: INTERPRETIVE INFORMATION: Copper, Serum or Plasma Elevated results may be due to skin or collection-related contamination, including the use of a noncertified metal-free collection/transport tube. If contamination concerns exist due to elevated levels of serum/plasma copper, confirmation with a second specimen collected in a certified metal-free tube is recommended. Serum copper may be elevated with infection, inflammation, stress, and copper supplementation. In females, elevated copper may also be caused by oral contraceptives and (concentrations may be elevated up to 3 times normal during the third trimester). This test was developed and its performance characteristics determined by [facility]. It has not been cleared or approved by the [place] Food and Drug Administration. This test was performed in a CLIA certified laboratory and is intended for clinical purposes. Performed By: [facility] [address] [place] [address] 21059 [employer] Operator: Gallo Sharif MD, PhD [place] Number: [id number] By: #### 1988-5 #### DEMETRIS RIZO (97716) [facility] ([facility] [place]) [address] [place] [address] 56520Knchyeqn kinaseon 32-76-8503HH [Catalytic activity/Vol]58 U/L Normal0-215[facility] Medical CenterComment on above: Performed By: #### 2157-6 #### DEMETRIS RIZO (70221) [facility] ([facility] [place]) [address] [address] 04671HSV Westergren method (Bld) [Velocity]on 55-14-1440LXH (Bld) [Velocity]7 mm/hNormal0-20[facility] CenterComment on above:Performed By: #### 4537-7 #### DEMETRIS RIZO (07790) [facility] ([facility]) [address] [address] 27265Yckgracpxrg nuclear Ab panel (S)on 20-99-3733Kmedhpousw protein B Ab Qn (S)<0.2Normal<1.0UnMercy HealthComment on above:Result Comment: < 1.0 = NEGATIVE >=1.0 = POSITIVEPerformed By: #### 4537-7 #### DEMETRIS RIZO (00851) [facility] ([facility] [place]) [address] [address] 78823Lbnwztbbd Ab Qn<0.2Normal<1.0UnMercy HealthComment on above:Result Comment: < 1.0 = NEGATIVE >=1.0 = POSITIVEPerformed By: #### 3747-7 #### DEMETRIS RIZO (58715) [facility] ([facility] [place]) [address] [address] 91796WYH double strand Ab Qn (S)[IU]/mLNormal<5.0UnMercy HealthComment on above:Result Comment: NEGATIVE: <= 4 IU/ML EQUIVOCAL: 5- 9 IU/ML POSITIVE: >=10 IU/MLPerformed By: #### 7707-7 #### DEMETRIS RIZO (99770) [facility] ([facility] [place]) [address] [address] 64527Yq-7 extractable nuclear Ab IA Ql (S)<0.2Normal<1.0UnMercy HealthComment on above:Result Comment: < 1.0 = NEGATIVE >=1.0 = POSITIVEPerformed By: #### 4537-7 #### DEMETRIS RIZO (87373) [facility] ([facility] [place]) [address] [place] [address] 11776Sqeajgwejjaqdmbjc extractable nuclear Ab IA Qn (S)<0.2Normal<1.0 [facility] CenterComment on above:Result Comment: < 1.0 = NEGATIVE >=1.0 = POSITIVEPerformed By: #### 9667-7 #### DEMETRIS RIZO (63958) [facility] ([facility]) [address] [address] 88690Wexstoycd P Ab Qn (S)<0.2Normal<1.0UnMercy HealthComment on above:Result Comment: < 1.0 = NEGATIVE >=1.0 = POSITIVEPerformed By: #### 4537-7 #### DEMETRIS RIZO (12475) [facility] ([facility] [place]) [address] [address] 26266XOS-90 extractable nuclear Ab IA Ql (S)<0.2Normal<1.0UnMercy HealthComment on above:Result Comment: < 1.0 = NEGATIVE >=1.0 = POSITIVEPerformed By: #### 4537-7 #### DEMETRIS RIZO (49625) [facility] ([facility] [place]) [address] [address] 93924Bkfbmcki syndrome-A extractable nuclear Ab IA Qn (S)<0.2Normal <1.0UnMercy HealthComment on above:Result Comment: < 1.0 = NEGATIVE >=1.0 = POSITIVEPerformed By: #### 4537-7 #### DEMETRIS RIZO (63993) [facility] ([facility] [place]) [address] [address] 62426Avbxmtsk syndrome-B extractable nuclear Ab IA Qn (S)<0.2Normal <1.0UnMercy HealthComment on above:Result Comment: < 1.0 = NEGATIVE >=1.0 = POSITIVEPerformed By: #### 4537-7 #### BENNIEIBMIS RIZO (48547) [facility] ([facility] [place]) [address] [address] 91908Aqiax extractable nuclear Ab IA Qn (S)<0.2Normal<1.0UnMercy HealthComment on above:Result Comment: < 1.0 = NEGATIVE >=1.0 = POSITIVEPerformed By: #### 4537-7 #### BENNIEIBMIS RIZO (72258) [facility] ([facility]) [address] [address] 31485Dpaja extractable nuclear Ab+Ribonucleoprotein extractable nuclear Ab IA Ql (S)<0.2Normal<1.0[facility] Comment on above:Result Comment: < 1.0 = NEGATIVE >=1.0 = POSITIVEPerformed By: #### 4537-7 #### DEMETRIS RIZO (17935) [facility] ([facility] [place]) [address] [address] 60350Mjkaxoz peptide Ab.IgAon 35-11-9505Wzsfkbc peptide IgA IA Qn (S) <1.0Normal<15.0[facility] Medical CenterComment on above: Result Comment: False negative Deamidated Gliadin Peptide Antibody, IgA results can occur in patients already adhering to a gluten-free diet or patients with IgA deficiency. Tissue Transglutaminase Antibody, IgA is the preferred test for screening patients with suspected Celiac Disease. ???Performed By: #### 4537-7 #### DEMETRIS RIZO (74797) [facility] ([facility] [place]) [address] [address] 91615Gppcqgo peptide Ab.IgGon 45-34-6368Siorrdi peptide IgG IA Qn (S) <0.11Lzwquh4.00-4.99[facility] Medical CenterComment on above:Result Comment: INTERPRETIVE INFORMATION: Deamidated Gliadin Peptide (DGP) Ab, IgG In individuals with low or deficient IgA, testing for tissue transglutaminase (tTG) and deamidated Gliadin (DGP) antibodies of the IgG isotype is performed. Positive tTG and/or DGP IgG antibody results indicate celiac disease; however, small intestinal biopsy is required to establish a diagnosis due to the lower accuracy of these markers, especially in patients without IgA deficiency.Performed By: #### 1988-5 #### DEMETRIS RIZO (70234) [facility] ([facility]) [address] [address] 60463MgI8a (Bld) [Mass fraction]on 05-36-8387Idxgqxa glucose Estimated from glycated hemoglobin (Bld) [Mass/Vol]111 mg/dLNormalNot EstablishedUnMercy HealthComment on above:Order Comment: Diagnosis of Diabetes-Adults Non-Diabetic: < or = 5.6% Increased risk for developing diabetes: 5.7-6.4% Diagnostic of diabetes: > or = 6.5%Performed By: #### 4548-4 #### PABLITO Sauer (13630) [facility] ([facility]) [address] [place], [place] [address]Jhmufldcvr A1c/Hemoglobin.totalon 73-64-4265LxV9c (Bld) [Mass fraction]5.5 %NormalSee commentTrumbull Regional Medical Center Comment on above:Order Comment: Diagnosis of Diabetes-Adults Non-Diabetic: < or = 5.6% Increased risk for developing diabetes: 5.7-6.4% Diagnostic of diabetes: > or = 6.5%Performed By: #### 4548-4 #### PABLITO Sauer (02871) [facility] ([facility]) [id number] [place] [address] 00302Mfmgzgxftgnvof light chains.free panel (S)on 11-05-2023 Immunoglobulin light chains.kappa [Mass/Vol]1.25 mg/dLNormal0.33-1.94[facility] CenterComment on above:Order Comment: Undetected antigen excess is a rare event but cannot beexcluded. If these free lightchain results do not agreewith other clinical or laboratory findings, or if thesample is from a patient that has previously demonstratedantigen excess, the result must be checked by retestingat a higher sample dilution. Results should always beinterpreted in conjunction with other laboratory testsand clinical evidence; any anomalies should be discussedwith the testing laboratory.Performed By: #### 4537-7 #### DEMETRIS RIZO (58261) [facility] ([facility]) [address] [address] 52407Syjptlctkkwyig light chains.kappa/Immunoglobulin light chains.lambda (S) [Mass ratio]1.92Yjahpy6.26-1.65[facility] Medical CenterComment on above:Order Comment: Undetected antigen excess is a rare event but cannot beexcluded. If these free lightchain results do not agreewith other clinical or laboratory findings, or if thesample is from a sumit ent that has previously demonstratedantigen excess, the result must be checked by retestingat a higher sample dilution. Results should always beinterpreted in conjunction with other laboratory testsand clinical evidence; any anomalies should be discussedwith the testing laboratory.Performed By: #### 4537-7 #### DEMETRIS RIZO (28453) [facility] ([facility]) [address] [address] 18759Oiigljuqygcksa light chains.lambda [Mass/Vol]1.15 mg/dLNormal 0.57-2.63[facility] CenterComment on above:Order Comment: Undetected antigen excess is a rare event but cannot beexcluded. If these free lightchain results do not agreewith other clinical or laboratory findings, or if thesample is from a patient that has previously demonstratedantigen excess, the result must be checked by retestingat a higher sample dilution. Results should always beinterpreted in conjunction with other laboratory testsand clinical evidence; any anomalies should be discussedwith the testing laboratory.Performed By: #### 4537-7 #### DEMETRIS MCMULLEN RIO ROMIE (77171) [facility] ([facility]) [address] [address] 08616Qwoypba Abon 36-10-3955Unpnxzp Ab Hep2 substrate Ql (S)Negative NormalNegativeUnMercy HealthComment on above: Result Comment: The Antinuclear Antibody (BENNIE) test was performed using indirect immunofluorescence assay with HEp-2 cells slide.Performed By: #### 4537-7 #### DEMETRIS RIZO (85930) [facility] ([facility]) [address] [address] 15685YDIMUJF ACIDS, URINEon 11-05-2023 2-Oxo,3-Methylvalerate/Creatinine (U) [Molar ratio]Not detectedNormal0-10 [facility] CenterComment on above:Performed By: #### 46608-3 #### DEMETRIS RIZO (22695) [facility] ([facility]) [address] [address] 372459-Ozjtkeqzzbciyd/Creatinine (U) [Molar ratio]Not detectedNormal 0-4UnMercy HealthComment on above:Performed By: #### 62639-6 #### DEMETRIS RIZO (98709) [facility] ([facility]) [address] [place], [place] [address]-Thpfmazjawmsdu/Creatinine (U) [Molar ratio]Not detectedNormal 0-4UnMercy HealthComment on above:Performed By: #### 10733-1 #### BENNIEIBMIS MCMULLEN RIO ROMIE (04250) [facility] ([facility]) [address] [place], [place] [address]-Uliugmmnkmnvmxwbpijp/Creatinine (U) [Molar ratio]01Dirx0-80 [facility] CenterComment on above:Performed By: #### 67235-4 #### DEMETRIS RIZO (53772) [facility] ([facility]) [address] [place], [place] [address]-Trfyhhwchowuihbqmmlx/Creatinine (U) [Molar ratio]Not detected Normal0-4[facility] CenterComment on above:Performed By: #### 78400-7 #### DEMETRIS RIZO (82259) [facility] ([facility]) [address] [place], [place] [address]-Ekkwwzeymcaxsmxjuvclx/Creatinine (U) [Molar ratio]Not detected Normal0-2[facility] CenterComment on above:Performed By: #### 16838-3 #### BENNIEIBMIS MCMULLEN RIO ROMIE (11374) [facility] ([facility]) [address] [place], [place] [address]Jhupisdnrzvo/Creatinine (U) [Molar ratio]Not detectedNormal0-4 [facility] CenterComment on above:Performed By: #### 27509-4 #### BENNIEIBMIS MCMULLEN RIO ROMIE (14036) [facility] ([facility]) [address] [place], [place] [address]Vjlxtlh/Creatinine (U) [Molar ratio]7Bipntz7-24HjvmsokdmcMercy HealthComment on above:Performed By: #### 82386-0 #### DEMETRIS RIZO (88400) [facility] ([facility]) [address] [address] 30438Htvzo ketoglutarate/Creatinine (U) [Molar ratio]68Vqmmoa8-61 [facility] CenterComment on above:Performed By: #### 50599-4 #### DEMETRIS RIZO (59849) [facility] ([facility]) [address] [address] 20586Iegj hydroxybutyrate/Creatinine (U) [Molar ratio]6Cofubz9-3 [facility] CenterComment on above:Performed By: #### 67408-9 #### DEMETRIS RIZO (71855) [facility] ([facility]) [address] [place] [address] 52446Vhysvzduzm (U) [Mass/Vol]181 mg/dLNormalUniversKettering Health MiamisburgComment on above:Result Comment: Performed By: [facility] [address] [place] [address] 17805 [employer] Operator: Gallo Sharif MD, PhD CLIA Number: [id number] By: #### 60899-8 #### DEMETRIS RIZO (96058) [facility] ([facility]) [address] [place] [address] 60217Jyxpcdsghvfqo/Creatinine (U) [Molar ratio]8Uybakd3-2InhexgqbbrTrumbull Regional Medical CenterComment on above:Performed By: #### 30763-4 #### DEMETRIS RIZO ([id number]) [facility] ([facility]) [address] [address] 10083Xqjyajpg/Creatinine (U) [Molar ratio]Not detectedNormal0-4 [facility] CenterComment on above:Performed By: #### 22248-3 #### DEMETRIS RIZO ([id number]) [facility] ([facility]) [address] [address] 16654Okxyqre/Creatinine (U) [Molar ratio]36Aogrpu0-03Wddlixdcmt Hospitals Lynne Medical CenterComment on above:Performed By: #### 88181-5 #### DEMETRIS MCMULLEN RIO ROMIE ([id number]) [facility] (EM) [address] [address] 25586Pwumrcdvxtmkrl/Creatinine (U) [Molar ratio]9Kmbz3-8HqdtlthhylMercy HealthComment on above:Performed By: #### 04604-4 #### BENNIEIBMIS ANA ROMIE ([id number]) [facility] ([facility]) [address] [address] 65759Ykqowrw acids pattern (U) [Interp]NormalNormalUniversKettering Health MiamisburgComment on above:Result Comment: Normal urine organic acids profile. This procedure is a screening method that detects a wide variety of organic acidurias. No significant abnormalities were detected in this specimen. If the patient is currently well-compensated metabolically but has an underlying disorder, no abnormality may be detectable. Repeat testing during an acute episode is recommended if clinically indicated. Results reviewed and interpreted by Rosario Joseph, PhD, [facility] Organic Acid, Urine results are reported in mmol/mol creatinine This test was developed and its performance characteristics determined by [facility]. It has not been cleared or approved by the [place] Food and Drug Administration. This test was performed in a CLIA certified laboratory and is intended for clinical purposes.Performed By: #### 21905-8 #### DEMETRIS RIZO ([id number]) [facility] ([facility]) [address] [place] [address] 99880Vlwhfzzi/Creatinine (U) [Molar ratio]4Dpsbpk5-97MryxgasqjnTrumbull Regional Medical CenterComment on above:Performed By: #### 02062-3 #### BENNIEIBMIS ANA ROMIE ([id number]) [facility] (EM) [address] [place] [address] 65715Gcoqkanf (C8)/Creatinine (U) [Molar ratio]Not detectedNormal0-3 [facility] Medical CenterComment on above:Performed By: #### 25877-1 #### BENNIEIBMIS ANA ROMIE ([id number]) [facility] (EMC) [address] [address] 80785Mwzqyvgs/Creatinine (U) [Molar ratio]7Deuzye6-0BfyncdmpetMercy HealthComment on above:Performed By: #### 65215-2 #### DEMETRIS RIZO ([id number]) [facility] (EMC) [address] [address] 40450Urtzeobkn/Creatinine (U) [Molar ratio]1Emqmlz2-41UcyebvavicMercy HealthComment on above:Performed By: #### 81210-4 #### BENNIEIBMIS MCMULLEN RIO ROMIE ([id number]) [facility] ([facility]) [address] [address] 28733Zknppqmggqqiivm/Creatinine (U) [Molar ratio]Not detectedNormal 0-0[facility] Medical CenterComment on above:Performed By: #### 97302-5 #### DEMETRIS MCMULLEN RIO ROMIE ([id number]) [facility] (EMC) [address] [address] 22003Mahhjijy cell Ab.IgGon 80-62-0875Gbbuqzhv cell IgG Qn (S)6.6 UnitsNormal0.0-24.9UnMercy HealthComment on above:Result Comment: In the context of vitamin B12 deficiency, the presence of gastric parietal cell antibodies (EXECUTIVE DIRECTOR OF NURSING) and/or intrinsic factor antibodies in association with macrocytic anemia is considered diagnostic for pernicious anemia (PA). However, the presence of gastric switch operators supervisor alone is not specific for PA. Gastric switch operators supervisor may occur with increased frequency in unaffected family members, a small percentage of healthy individuals, and patients with other autoimmune diseases, such as autoimmune thyroiditis. INTERPRETIVE INFORMATION: Gastric Parietal Cell Antibody, IgG 0.0-20.0 Units: Negative 20.1-24.9 Units: Equivocal 25.0 Units or greater: Positive Performed By: [employer] [address] [place] [address] [employer]ing [employer] Edging Machine Operator: Gallo Sharif MD, PhD CLIA Number: [id number] By: #### 4537-7 #### DEMETRIS RIZO ([id number]) [facility] (EMC) [address] [address] 30482Ggkkcfqlf 24-02-2913Qquhsys Qn (U)8 mg/dLNormal5-25UnMercy HealthComment on above:Performed By: #### 4537-7 #### DEMETRIS RIZO ([id number]) [facility] ([facility]) [address] [address] 58803Pxpcdoz [Mass/Vol]7.3 g/dLNormal6.4-8.2UnMercy HealthComment on above:Performed By: #### 2885-2 #### PABLITO Sauer ([id number]) [facility] ([facility]) [address] [place] [address] 10559Sfmetpozna factoron 97-26-3621Jadjkuwdpa factor Nephelometry Qn (S)<71Dmxdop0-47GahiomsrrvMercy HealthComment on above:Performed By: #### 83935-8 #### PABLITO Sauer ([id number]) [facility] ([facility]) [id number] [place] [address] 47482XRKAQ PROTEIN ELECTROPHORESIS + IMMUNOFIXATIONon 11-05-2023 Albumin [Mass/Vol]4.3 g/dLNormal3.4-5.0UnMercy HealthComment on above:Performed By: #### 88403-3 #### DEMETRIS RIZO ([id number]) [facility] ([facility]) [address] [address] 11802ZOMOU 1 GLOBULIN0.3 g/dLNormal0.2-0.6UnMercy HealthComment on above:Performed By: #### 34234-7 #### DEMETRIS RIZO ([id number]) [facility] ([facility]) [address] [address] 03564HVWDX 2 GLOBULIN0.8 g/dLNormal0.4-1.1UnMercy HealthComment on above:Performed By: #### 67940-6 #### DEMETRIS RIZO ([id number]) [facility] (EMC) [address] [address] 78377SHOV GLOBULIN0.9 g/dLNormal0.5-1.2[facility] Medical CenterComment on above:Performed By: #### 98866-8 #### ANAIBMIS ANA ROMIE ([id number]) [facility] (EMC) [address] [address] 59929MYQNX GLOBULIN1.0 g/dLNormal0.5-1.4Tr[facility] Medical CenterComment on above:Performed By: #### 22722-5 #### ANAIBMIS ANA ROMIE ([id number]) [facility] (EMC) [address] [address] 43885RLVCJYRCIEECWW COMMENTDetectedNormalUniSalem Regional Medical CenterComment on above:Performed By: #### 94225-6 #### BENNIEIBMIS MCMULLEN RIO ROMIE ([id number]) [facility] (EMC) [address] [address] 03101WHKK REVIEW - SERUM IMMUNOFIXATIONReviewed and approved by CYNTHIA JACKSON on 11/08/23 at 9:29 PM.[facility] Ontario HospitalComment on above:Performed By: #### 49991-9 #### BENNIEIBMIS RIZO ([id number]) [facility] (EMC) [address] [address] 76015AQWT REVIEW-SERUM PROTEIN ELECTROPHORESISReviewed and approved by CYNTHIA JACKSON on 11/08/23 at 9:29 PM.[facility] Ontario HospitalComment on above:Performed By: #### 31798-4 #### BENNIEIBMIS ANA ROMIE ([id number]) [facility] (EMC) [address] [address] 71104ONLEDHC ELECTROPHORESIS COMMENTNormal.[facility] HospitalComment on above:Performed By: #### 06931-9 #### ANAIBMIS ANA ROMIE ([id number]) [facility] (EMC) [address] [address] 36891FUT WITH REFLEX TO FREE T4 IF ABNORMALon 91-40-6560XPK Qn1.06 m[IU]/LNormal0.44-3.98UnMercy HealthComment on above:Order Comment: TSH testing is performed using different testing methodology at [facility] than at other [facility]. Direct result comparisons should only be made within the same method.Performed By: #### THYDS #### DEMETRIS RIZO ([id number]) [facility] (EMC) [address] [address] 72881Pzqnaxr stimulating immunoglobulinson 13-74-6764Bahbgjw stimulating immunoglobulins Qn (S)<1.0Normal<=1.3UnMercy HealthComment on above:Result Comment: Test Performed by: [facility] [address] [place] [address] Environmental Protection Officer: Amairani Caldwell Ph.D.; CLIA# [id number] By: #### 2157-6 #### DEMETRIS RIZO ([id number]) [facility] (EMC) [address] [address] 64185Xombdkkkqkv receptor Abon 47-16-6923VPY receptor Ab Qn (S)<1.10 Normal<=1.75UnMercy HealthComment on above:Result Comment: Performed By: [employer] [address] [place] [address] [employer] Edging Machine Operator: Gallo Sharif MD, PhD CLIA Number: [id number] By: #### 4537-7 #### DEMETRIS RIZO ([id number]) [facility] ([facility]C) [address] [address] 88391Qqftdb transglutaminase Ab.IgAon 66-75-7696gDK IgA IA Qn (S)<1.0 Normal<15.0Tr[facility]ull Regional Medical CenterComment on above:Result Comment: Celiac disease is unlikely. False negative Tissue Transglutaminase Antibody, IgA results can occur in approximately 10% of patients with celiac disease, patients already adhering to a gluten-free diet, or patients with IgA deficiency.Performed By: #### 4537-7 #### DEMETRIS KEMI GRUBBS ([id number]) [facility] ([facility]) [address] [address] 22673Ktvetx transglutaminase Ab.IgGon 41-85-9189cSS IgG IA Qn (S) <0.32Tnfrkw9.00-4.99Tr[facility] Medical CenterComment on above:Result Comment: INTERPRETIVE INFORMATION: Tissue Transglutaminase Ab, IgG In individuals with low or deficient IgA, testing for tissue transglutaminase (tTG) and deamidated Gliadin (DGP) antibodies of the IgG isotype is performed. Positive tTG and/or DGP IgG antibody results indicate celiac disease; however, small intestinal biopsy is required to establish a diagnosis due to the lower accuracy of these markers, especially in patients without IgA deficiency.Performed By: #### 1987-06 #### DEMETRIS RIZO ([id number]) [facility] ([facility]) [address] [address] 09781MJWBC PROTEIN ELECTROPHORESIS + IMMUNOFIXATIONon 11-05-2023 Albumin Elph (U) [Mass fraction]38.7 %[facility] HospitalComment on above:Performed By: #### 1987-06 #### DEMETRIS KEMI GRUBBS ([id number]) [facility] (C) [address] [address] 09118Ssfcw 1 globulin Elph (U) [Mass fraction]10.3 %[facility] HospitalComment on above:Performed By: #### 1987-06 #### DEMETRIS KEMI MAYORGA ROMIE ([id number]) [facility] ([facility]C) [address] [address] 98061Hyksw 2 globulin Elph (U) [Mass fraction]17.3 %[facility] HospitalComment on above:Performed By: #### 1987-06 #### DEMETRIS MCMULLEN TIERRA GRUBBS ([id number]) [facility] ([facility]C) [address] [address] 85152Pgxv globulin Elph (U) [Mass fraction]18.0 %[facility] HospitalComment on above:Performed By: #### 1987-06 #### DEMETRIS RIZO ([id number]) [facility] ([facility]) [address] [address] 97643Kwqmo globulin Elph (U) [Mass fraction]15.7 %[facility] HospitalComment on above:Performed By: #### 1987-06 #### DEMETRIS RIZO ([id number]) [facility] (EMC) [address] [address] 66407QXRQKZLCSJHRZL COMMENTDetectedNoHolzer Medical Center – JacksonComment on above:Performed By: #### 1987-06 #### DEMETRIS RIZO ([id number]) [facility] (EMC) [address] [place], [place] [address]PATH REVIEW - URINE IMMUNOFIXATIONReviewed and approved by CYNTHIA JACKSON on 11/08/23 at 8:14 PM.[facility] HospitalComment on above:Performed By: #### 1987-06 #### DEMETRIS RIZO ([id number]) [facility] ([facility]C) [address] [place] [address] 02397BEUX REVIEW-URINE PROTEIN ELECTROPHORESISReviewed and approved by CYNTHIA JACKSON on 11/08/23 at 8:14 PM.[facility] Ontario HospitalComment on above:Performed By: #### 1987-06 #### DEMETRIS RIZO ([id number]) [facility] (EMC) [address] [address] 56508WCQEK ELECTROPHORESIS COMMENTSEE COMMENTNoHolzer Medical Center – JacksonComment on above:Result Comment: Normal. Performed By: #### 1987-06 #### DEMETRIS RIZO ([id number]) [facility] (EMC) [address] [place], [place] [id number] + FLU Quick Testingon 90-59-2383AKPA-CoV-2 (COVID-19) RNA JAROCHO+probe Ql (Unsp spec)NegativeNoManzama Other COVID + FLU Quick [email or web address] LLC Other COVID Quick Testingon 89-99-1416ZyekuzJhwrzzvfDzjfvClearDATA Other automated erythrocytes count in urine sediment (number/area)Ordered By: Misha Sy on 33-64-8129KXW Auto (Urine sed) [#/Area] 3-4 [HPF]0-4FMetroHealth Parma Medical CenterAutomated leukocytes count in urine sediment (number/area)Ordered By: Misha Sy on 41-10-9633RHN Auto (Urine sed) [#/Area]5-9 [HPF]0-4FMetroHealth Parma Medical CenterBilirubin Test strip Ql (U)Ordered By: Misha Sy on 31-82-0703Jgegyvden Ql (U)NegativeNegative Cherrington HospitalColor Auto (U)Ordered By: Misha Sy on 10-23-8514Fpuks (U)YellowYellowCherrington HospitalKetones Auto test strip (U) [Mass/Vol]Ordered By: Misha Sy on 15-46-2413Qkozjlp (U) [Mass/Vol]NegativeNegMetroHealth Main Campus Medical CenterLaboratory - UrinalysisOrdered By: Misha Sy on 04-17-5017Kfpjjyn casts LM Ql (Urine sed) 0-8 [LPF]0-8Cherrington HospitalNitrite Test strip Ql (U)Ordered By: Misha Sy on 50-83-4932Ogojnaq Ql (U)NegativeNegMetroHealth Main Campus Medical CenterProtein Auto test strip (U) [Mass/Vol]Ordered By: Misha Sy on 57-53-7460Beutgvm (U) [Mass/Vol]NegativeNegSelect Medical Cleveland Clinic Rehabilitation Hospital, Edwin Shawpecific gravity Auto test strip (U) [Rel density]Ordered By: Misha Sy on 93-53-0899Taylimdx gravity (U) [Rel density]1.0101.001-1.030[facility] State Health Systemquamous epithelial cells detection in urine sediment by light microscopyOrdered By: Misha Sy on 90-96-3932Wgufvgewwh cells.squamous LM Ql (Urine sed)3-4 [HPF]0-2FMetroHealth Parma Medical CenterUrine bacteria detection by automated methodOrdered By: Misha Sy on 47-07-4026Mdycuqcx Auto Ql (U)1+None SeenCherrington HospitalUrine clarity by refractometry automatedOrdered By: Misha Sy on 62-66-5686Ortqhjp Refractometry automated (U)ClearCleMemorial Health SystemUrine glucose measurement by automated test strip (mass/volume)Ordered By: Misha Sy on 40-49-8199Fpxmhuw Auto test strip (U) [Mass/Vol]Normal mg/dLUniversity Hospitals Beachwood Medical CenterUrine hemoglobin detection by automated test stripOrdered By: Misha Sy on 22-49-9575Mylldhwvdv Auto test strip Ql (U) NegativeNegativeCherrington HospitalUrine leukocyte esterase detection by automated test stripOrdered By: Misha Sy on 72-46-4261Nkxvxcrky esterase Auto test strip Ql (U)3+NegativeCherrington Hospital Urobilinogen Auto test strip (U) [Mass/Vol]Ordered By: iMsha Sy on 27-61-8137Qjyfwptznwjg (U) [Mass/Vol]Normal mg/dLNoWilson Street HospitalpH Auto test strip (U)Ordered By: Misha Sy on 24-47-7573tJ (U) 6.5 [pH]5.0-9.0C[facility]rington HospitalUrinalysis - AUTOMATEDon 59-16-1871Xautpgtonb (U)[employer]Dem[employer] Software Other bilirubin Ql (U)[employer]creening Other Color (U)pale [email or web address] LLC Other Glucose Ql (U)[employer]ening Other Hemoglobin Ql (U)[employer] Other Ketones Ql (U)[employer] Other Leukocyte esterase Test strip Ql (U)[employer]creening Other Nitrite Ql (U)NegativeWildorado Code Kingdoms Other pH (U)6.5 [pH][employer] Other Protein Ql (U)NegativeWildorado Code Kingdoms Other Specific gravity (U) [Rel density]1.010[employer] Other Urinalysis Gross ExamNegativeWildorado Code Kingdoms Other Urobilinogen (U) [Mass/Vol]0.2 mg/dLWildorado Code Kingdoms Other Urinalysis - AUTOMATEDWildorado Code Kingdoms Other Cholesterol [Mass/volume] in Serum or PlasmaOrdered By: Jose Antonio Jerez on 88-36-6837Wgpsthfuvtk [Mass/Vol]190 mg/wC028-379 [facility] HospitalComment on above:Chol less than 200 mg/dl low riskChol 201-239 mg/dl borderline riskChol 240 mg/dl and greater high risk Cholesterol in LDL Calc [Mass/Vol]Ordered By: Jose Antonio Jerez on 38-95-5139Qmyjaiymctr in LDL [Mass/Vol]134 mg/dL0-100C[facility]rington HospitalComment on above:LDL ATP III CLASSIFICATIONLDL less than 100 mg/dL OptimalLDL 100-129 mg/dL Near or above jvihjcvNLM179-491 mg/dL Borderline highLDL 160-189 mg/dL HighLDL greater than 189 mg/dL Very highCholesterol in VLDL Calc [Mass/Vol]Ordered By: Jose Antonio Jerez on 96-33-3724Eudqyktmtfp in VLDL [Mass/Vol]22 mg/dLOhio State Health Systemerum or plasma high density lipoprotein (HDL) cholesterol measurementOrdered By: Jose Antonio Jerez on 16-97-4337Hcfuonvtcap in HDL [Mass/Vol]34 mg/zZ31-77CwmbdpmqlCherrington HospitalComment on above:HDL CHOL ATP-III CLASSIFICATION Cardiovascular RiskHDL > or equal to 60 mg/dL LOWHDL < 40 mg/dL HIGHSerum or plasma total cholesterol/high density lipoprotein (HDL) cholesterol mass rat Ordered By: Jose Antonio Jerez on 84-77-5624Frmtdqqhznz.total/Cholesterol in HDL [Mass ratio]5.6 {ratio}<5.0Cherrington HospitalThyrotropin [Units/volume] in Serum or PlasmaOrdered By: Jose Antonio Jerez on 09-14-2022 TSH Qn1.22 m[IU]/L0.45-5.33C[facility]rington HospitalTriglyceride [Mass/volume] in Serum or PlasmaOrdered By: Jose Antonio Jerez on 09-14-2022 Triglyceride [Mass/Vol]112 mg/dL0-149C[facility]rington HospitalComment on above:TRIG ATP III CLASSIFICATIONTRIG less than 150 mg/dL NormalTRIG 150-199 mg/dL Borderline highTRIG 200-500 mg/dL High TRIG greater than 500 mg/dL Very highStandard traceable to the Center for Disease Conrtrol and Prevention (CDC) test method.Vitamin D+Metabolites [Mass/volume] in Serum or PlasmaOrdered By: Jose Antonio Jerez on 96-97-5244Pjphbdr D+Metabolites [Mass/Vol]37.9 ng/mL 30-100C[facility]rington HospitalComment on above:VITAMIN D STATUS 25(OH)VITAMIN D RANGE (ng/mL) Deficient <20 Insufficient 20 to <48Rlkqfqeflr45 to 100Reference: Alejandra MF,Nina NC, Jerry ELLINGTON, et al. Evaluation,treatment, and prevention of vitamin D deficiency; an Endocrine Society clinical practice guideline. JCEM. 2010; 96(7):1911-30.Alanine aminotransferase [Enzymatic activity/volume] in Serum or PlasmaOrdered By: Yolanda Staples on 68-62-9576RDP [Catalytic activity/Vol]13 U/L7-52C[facility]rington HospitalAlbumin [Mass/volume] in Serum or Plasma by Bromocresol green (BCG) dye binding methoOrdered By: Yolanda Staples on 04-50-7210Rvwlkmf BCG dye [Mass/Vol]4.5 g/dL3.5-5.7FMetroHealth Parma Medical CenterAlkaline phosphatase [Enzymatic activity/volume] in Serum or PlasmaOrdered By: Yolanda Staples on 58-59-1443JFL [Catalytic activity/Vol]73 U/R25-311DmneaoccfCherrington HospitalAmphetamine Screen Ql (U)Ordered By: Yolanda Staples on 36-10-2675Uerghwofpmhz Ql (U)NegativeNegativeCherrington Hospital Aspartate aminotransferase [Enzymatic activity/volume] in Serum or PlasmaOrdered By: Yolanda Staples on 05-74-5405BRZ [Catalytic activity/Vol]16 U/L13-39 [facility] HospitalAutomated erythrocytes count in urine sediment (number/area)Ordered By: Yolnada Staples on 74-04-7326KID Auto (Urine sed) [#/Area]3-4 [HPF]0-4FMetroHealth Parma Medical CenterAutomated leukocytes count in urine sediment (number/area)Ordered By: Yolanda Staples on 91-59-8274TZW Auto (Urine sed) [#/Area]20-49 [HPF]0-4FMetroHealth Parma Medical Center Barbiturates [Presence] in Urine by Screen methodOrdered By: Yolanda Staples on 69-50-8866Bshnyjtvngnk Screen Ql (U)NegativeNegMetroHealth Main Campus Medical CenterBasophils Auto (Bld) [#/Vol]Ordered By: Yolanda Staples on 09-13-2022 Basophils (Bld) [#/Vol]0.1 10*3/uL0.0-0.2FMetroHealth Parma Medical Center Basophils/100 WBC Auto (Bld)Ordered By: Yolanda Staples on 09-13-2022 Basophils/100 WBC (Bld)0.6 %.C[facility]rington HospitalBenzodiazepines Screen Ql (U)Ordered By: Yolanda Staples on 34-96-3382Nlmiopeqwsjfwul Ql (U) NegativeNegMetroHealth Main Campus Medical CenterBenzoylecgonine [Presence] in Urine by Screen methodOrdered By: Yolanda Staples on 03-86-0027Kihqctepwaehqex Screen Ql (U)NegativeNegativeCherrington HospitalBilirubin Test strip Ql (U)Ordered By: Yolanda Staples on 79-95-2678Wjbwcgkxa Ql (U)Negative NegativeCherrington HospitalBilirubin.total [Mass/volume] in Serum or PlasmaOrdered By: Yolanda Staples on 00-09-8944Gxghlmzyb [Mass/Vol]0.5 mg/dL 0.3-1.0C[facility]rington HospitalCalcium [Mass/volume] in Serum or Plasma Ordered By: Yolanda Staples on 59-97-7258Zvuxbes [Mass/Vol]9.1 mg/dL8.6-10.3 [facility] HospitalCannabinoids [Presence] in Urine by Screen methodOrdered By: Yolanda Staples on 48-40-2711Miowodgzagjx Screen Ql (U) NegativeNegativeCherrington HospitalComment on above:These are unconfirmed results and should not be used for legal purposes. Drug Cut-Off Concentration: AMPH 1000 ng/mL HAILE 200 ng/mL JAVAN 200 ng/mL COCM 300 ng/mL OP 300 ng/mL PCP 25 ng/mL THC 20 ng/mLCarbon dioxide, total [Moles/volume] in Serum or PlasmaOrdered By: Yolanda Staples on 52-73-9146FX2 [Moles/Vol]24.5 mmol/L 21.0-31.0C[facility]rington HospitalChloride [Moles/volume] in Serum or PlasmaOrdered By: Yolanda Staples on 17-41-8807Qjrjwwat [Moles/Vol]104 mmol/L 98-107C[facility]rington HospitalColor Auto (U)Ordered By: Yolanda Staples on 16-37-8467Qolik (U)YellowYellowCherrington Hospital Creatinine [Mass/volume] in Serum or PlasmaOrdered By: Yolanda Staples on 78-14-2041Jowfnkobkc [Mass/Vol]0.83 mg/dL0.60-1.20C[facility]rington HospitalEosinophils Auto (Bld) [#/Vol]Ordered By: Yolanda Staples on 09-13-2022 Eosinophils (Bld) [#/Vol]0.2 10*3/uL0.0-0.45[facility] Eosinophils/100 WBC Auto (Bld)Ordered By: Yolanda Staples on 09-13-2022 Eosinophils/100 WBC (Bld)2.0 %.C[facility]rington HospitalErythrocyte distribution width Auto (RBC) [Ratio]Ordered By: Yolanda Staples on 09-13-2022 Erythrocyte distribution width (RBC) [Ratio]13.2 %11.9-15.3FMetroHealth Parma Medical CenterEthanol [Mass/volume] in Serum or PlasmaOrdered By: Yolanda Staples on 31-91-7332Cxiuizh [Mass/Vol]mg/dLCherrington Hospital Ethanol [Mass/Vol]TNPCherrington HospitalComment on above:Test not performedGlobulin Calc (S) [Mass/Vol]Ordered By: Yolanda Staples on 09-13-2022 Globulin (S) [Mass/Vol]3.2 g/dLCherrington HospitalGlucose [Mass/volume] in Serum or PlasmaOrdered By: Yolanda Staples on 09-13-2022 Glucose [Mass/Vol]102 mg/kU94-315YiecfthisCherrington HospitalComment on above:ADA recommended reference rangeRandom Glucose Reference Range is dependent on time and content of last meal. Glucose of more than 200 mg/dL in a nonstressed, ambulatory subject supports the diagnosisof Diabetes Mellitus.HCG ( test) IA.rapid Ql (U)Ordered By: Yolanda Staples on 79-34-3148WEJ ( test) Ql (U)NegativeCherrington HospitalHematocrit Auto (Bld) [Volume fraction]Ordered By: Yolanda Staples on 64-14-8413Zvlnjkfgfq (Bld) [Volume fraction]39.8 %34.0-46.4FMetroHealth Parma Medical Center Hemoglobin [Mass/volume] in BloodOrdered By: Yolanda Staples on 09-13-2022 Hemoglobin (Bld) [Mass/Vol]13.5 g/dL11.8-15.4FMetroHealth Parma Medical Center Ketones Auto test strip (U) [Mass/Vol]Ordered By: Yolanda Staples on 09-13-2022 Ketones (U) [Mass/Vol]NegativeNegativeCherrington Hospital Laboratory - UrinalysisOrdered By: Yolanda Staples on 88-47-6529Dzqdmoz casts LM Ql (Urine sed)0-8 [LPF]0-8C[facility]rington HospitalLeukocytes [#/volume] corrected for nucleated erythrocytes in Blood by Automated coun Ordered By: Yolanda Staples on 95-26-7771LWS corrected for nucl RBC Auto (Bld) [#/Vol]10.7 10*3/uL3.8-11.6FMetroHealth Parma Medical CenterLymphocytes Auto (Bld) [#/Vol]Ordered By: Yolanda Staples on 83-05-7481Rssqvwdkouh (Bld) [#/Vol] 1.6 10*3/uL1.00-4.8C[facility]rington HospitalLymphocytes/100 WBC Auto (Bld)Ordered By: Yolanda Staples on 07-40-0891Mjlvtrbgqlf/100 WBC (Bld)15.1 %. [facility] Auto (RBC) [Entitic mass]Ordered By: Yolanda Staples on 90-15-2816XDY (RBC) [Entitic mass]27.9 pg24.7-34.3FMetroHealth Parma Medical CenterMCHC Auto (RBC) [Mass/Vol]Ordered By: Yolanda Staples on 89-91-6008ICAJ (RBC) [Mass/Vol]34.0 g/dL32.0-35.0C[facility]rington HospitalMCV Auto (RBC) [Entitic vol]Ordered By: Yolanda Staples on 41-94-2603CIG (RBC) [Entitic vol]82.0 kO35-249KfhyazgvyCherrington HospitalMonocyte distribution width [Entitic volume] in Blood by AutomatedOrdered By: Yolanda Staples on 05-23-1316Kvxiwizj distribution width Auto (Bld) [Entitic vol]14.76 %0.00-20.00Cherrington HospitalMonocytes Auto (Bld) [#/Vol]Ordered By: Yolanda Staples on 04-88-2117Cfhjxuuhq (Bld) [#/Vol]0.6 10*3/uL0.0-0.8 [facility] HospitalMonocytes/100 WBC Auto (Bld)Ordered By: Yolanda Staples on 42-71-6360Tnbrzqfug/100 WBC (Bld)5.6 %.[facility] HospitalNeutrophils Auto (Bld) [#/Vol]Ordered By: Yolanda Staples on 09-13-2022 Neutrophils (Bld) [#/Vol]8.2 10*3/uL1.8-7.7FMet[facility] Neutrophils/100 WBC Auto (Bld)Ordered By: Yolanda Staples on 09-13-2022 Neutrophils/100 WBC (Bld)76.7 %.[facility] HospitalNitrite Test strip Ql (U)Ordered By: Yolanda Staples on 99-78-5761Pyxlqgm Ql (U)Negative NegativeCherrington HospitalNo Panel InformationOrdered By: Yolanda Staples on 98-05-9120Dvxknnogt GFR (CKD-EPI)> 60.0 mL/MinCherrington HospitalPharmacy Creatinine Clearance (Lckh327.13[facility] HospitalNucleated erythrocytes [Presence] in Blood by Automated count Ordered By: Yolanda Staples on 87-35-5559Gdpwjuxvc RBC Auto Ql (Bld)0.1 /100{WBC}0-0.5FMetroHealth Parma Medical CenterOpiates [Presence] in Urine by Screen methodOrdered By: Yolanda Staples on 10-10-9091Rrkdyib Screen Ql (U) NegativeNegativeCherrington HospitalPhencyclidine Screen Ql (U) Ordered By: Yolanda Staples on 95-31-5809Vhpifejbtqiuf Ql (U)NegativeNegative [facility]rington HospitalPlatelet mean volume Auto (Bld) [Entitic vol] Ordered By: Yolanda Staples on 10-76-7774Czudpqxy mean volume (Bld) [Entitic vol]8.3 fL6.3-10.7FMetroHealth Parma Medical CenterPlatelets Auto (Bld) [#/Vol] Ordered By: Yolanda Staples on 18-65-7524Oawnylwvi (Bld) [#/Vol]347 10*3/uL 150-450[facility] HospitalPotassium [Moles/volume] in Serum or PlasmaOrdered By: Yolanda Staples on 23-90-3561Ygjcjsgak [Moles/Vol]3.8 mmol/L 3.5-5.1FMetroHealth Parma Medical CenterProtein Auto test strip (U) [Mass/Vol] Ordered By: Yolanda Staples on 21-72-2179Ddkyrkp (U) [Mass/Vol]NegativeNegative [facility] HospitalProtein [Mass/volume] in Serum or PlasmaOrdered By: Yolanda Staples on 83-87-8293Zkiuffy [Mass/Vol]7.7 g/dL6.4-8.9C[facility] HospitalRBC Auto (Bld) [#/Vol]Ordered By: Yolanda Staples on 56-00-3855IUK (Bld) [#/Vol]4.85 10*6/uL3.60-5.00[facility] Systemerum or plasma albumin/globulin mass ratioOrdered By: Yolanda Staples on 05-77-2677Coiihyg/Globulin [Mass ratio]1.4 {ratio}[facility] Systemerum or plasma anion gap determinationOrdered By: Yolanda Staples on 83-29-4491Kymov gap [Moles/Vol]12.3 mmol/L6.0-15.0[facility] Systemodium [Moles/volume] in Serum or PlasmaOrdered By: Yolanda Staples on 57-15-0961Tpznkw [Moles/Vol]137 mmol/D426-550IagewqcnpCherrington Hospital Specific gravity Auto test strip (U) [Rel density]Ordered By: Yolanda Staples on 95-64-0484Wpwduoae gravity (U) [Rel density]1.0091.001-1.030[facility] Health Systemquamous epithelial cells detection in urine sediment by light microscopyOrdered By: Yolanda Staples on 63-68-5903Lgldhotmjn cells.squamous LM Ql (Urine sed)3-4 [HPF]0-2FMetroHealth Parma Medical Center Urea nitrogen [Mass/volume] in Serum or PlasmaOrdered By: Yolanda Staples on 12-77-4877Myvq nitrogen [Mass/Vol]7 mg/dL7-25[facility] Urine bacteria detection by automated methodOrdered By: Yolanda Staples on 46-75-4685Bcslluak Auto Ql (U)1+None SeenCherrington HospitalUrine clarity by refractometry automatedOrdered By: Yolanda Staples on 09-13-2022 Clarity Refractometry automated (U)CloudyCleMemorial Health System Urine culture routineOrdered By: Yolanda Staples on 63-59-6613Snibgzlz identified Cx Nom (U)2 DaysCherrington HospitalUrine glucose measurement by automated test strip (mass/volume)Ordered By: Yolanda Staples on 35-59-4709Kmbimrv Auto test strip (U) [Mass/Vol]Normal mg/dLNormHarrison Community HospitalUrine hemoglobin detection by automated test stripOrdered By: Yolanda Staples on 88-14-7772Qjhumzupkw Auto test strip Ql (U)1+Negative [facility] HospitalUrine leukocyte esterase detection by automated test stripOrdered By: Yolanda Staples on 19-18-9979Fbvuxdymg esterase Auto test strip Ql (U)4+NegativeCherrington HospitalUrobilinogen Auto test strip (U) [Mass/Vol]Ordered By: Yolanda Staples on 28-79-6394Sipuxzbsxjml (U) [Mass/Vol]Normal mg/dLNormHarrison Community HospitalWBC Auto (Bld) [#/Vol]Ordered By: Yolanda Staples on 66-69-9638NCZ (Bld) [#/Vol]10.7 10*3/uL 3.8-11.6FMetroHealth Parma Medical CenterpH Auto test strip (U)Ordered By: Yolanda Staples on 69-63-3019vQ (U)6.0 [pH]5.0-9.0C[facility] HospitalUrinalysis - DIPSTICKon 55-64-0578Xuuucnbrsk (U)[employer] Other Bilirubin Ql (U)HiFiKiddo [employer] King[employer] Other Color (U)yellowCardback [employer] Other Glucose Ql (U)Sig[employer]ening Other Hemoglobin Ql (U)Sig[employer]cre[employer] Other Ketones Ql (U)Sig[employer] Other Leukocyte esterase Test strip Ql (U)[employer] Other Nitrite Ql (U)Sigmascreening Other pH (U)6.0 [pH][place] [employer] Other Protein Ql (U)Sigmascreening Other Specific gravity (U) [Rel density]1.020[facility] [employer] Other Urobilinogen (U) [Mass/Vol]NegativeWildorado Code [employer] Other Urinalysis - DIPSTICKWildorado Code [employer] Other COVID + FLU Quick Testingon 80-26-9461IRMC-CoV-2 (COVID-19) RNA JAROCHO+probe Ql (Unsp spec)NegativeWildorado [employer] Other COVID + FLU Quick TestingNegativeWildorado Code [employer] Other Urinalysis - DIPSTICKon 14-86-8749Dmhxzgkqqy (U)cloudy [employer] Other Bilirubin Ql (U)[facility] [employer] Other Color (U)light yellowWildorado Code [employer] Other Glucose Ql (U)NegativeWildorado [employer] Other Hemoglobin Ql (U)trace non-hemolyzedWildorado Code [employer] Other Ketones Ql (U)[facility] [employer] Other Leukocyte esterase Test strip Ql (U)moderateNofreeman orthopaedics & sports medicine [employer] Other Nitrite Ql (U)[facility] [employer] Other pH (U)6.0 [pH][employer] Other Protein Ql (U)[facility] [employer] Other Specific gravity (U) [Rel density]1.025[place] [employer] Other Urobilinogen (U) [Mass/Vol]WNLNorth Code King[employer] Other Urinalysis - DIPSTICKNort Code Kingdoms Other pap ACOG PANEL 2: 21 to 29on 04-06-2022..NormalAshtabula General Hospital on above:Performed By: #### [id number] #### [facility] [address] [address] [address] Aram Carbone Gdln ACOG Zchqkvh95-19UfbrvzMzqPremier Health [facility] on above:Performed By: #### [id number] #### [facility] [address] [address] [address] Aram ShieldsDIAGNOSIS:CommentSt. Mary's Medical Center on above: Result Comment: NEGATIVE FOR INTRAEPITHELIAL LESION OR MALIGNANCY.Performed By: #### [id number] #### [facility] [address] [place] [address] Dr. Aram ShieldsMethodology:CommentSt. Mary's Medical Center on above: Result Comment: This liquid based ThinPrep(R) pap test was screened with the use of an image guided system.Performed By: #### [id number] #### [facility] [address] [place] [address] Dr. Aram ShieldsNote:CommentSt. Mary's Medical Center on above:Result Comment: The Pap smear is a screening test designed to aid in the detection of premalignant and malignant conditions of the uterine cervix. It is not a diagnostic procedure and should not be used as the sole means of detecting cervical cancer. Both false-positive and false-negative reports do occur. .Performed By: #### [id number] #### [facility] [address] [address] [address] Aram ShieldsPerformed by:CommentSt. Mary's Medical Center on above: Result Comment: Mars Eaton, Human Performance Consultant (ASCP)Performed By: #### [id number] #### [facility] [address] [place] [address] Dr. Aram ShieldsReflex Criteria:CommentSt. Mary's Medical Center on above:Result Comment: The HPV DNA reflex criteria were not met with this specimen result therefore, no HPV testing was performed. .Performed By: #### [id number] #### [facility] [address] [place] [address] Dr. Aram Young adequacy:CommentNormalThe TriHealth Good Samaritan Hospitalment on above:Result Comment: Satisfactory for evaluation. Endocervical and/or squamous metaplastic cells (endocervical component) are present.Performed By: #### [id number] #### [facility] [address] [place] [address] Dr. Aram Rodriguez AND B AGon 01-98-2401LGFPEQHWN A AGNegativeNormal NEGATIVE SEE COMMENTThe [facility] County HospitalComment on above:Performed By: #### INFLUAB #### [facility] [address] [place] [address] Dr. Aram Andrade AGNegativeNormalNEGATIVE SEE COMMENTThe [facility] on above:Performed By: #### INFLUAB #### [facility] [address] [place] [address] Dr. Aram ShieldsINTERNAL CONTROLSWithin Normal LimitsNormalWithin Normal Limits The [facility] HospitalComment on above:Performed By: #### INFLUAB #### [facility] [address] [place] [address] Dr. Aram Mcphersonon 08-19-2021. pyogenes Org specific cx Ql (Throat) NegativeWildorado Code Kingdoms Other Quick StrepIsotera Code King[employer] Other 110-9208VBEQ-JyT-2 (COVID-19) RNA JAROCHO+probe Ql (Resp)on 90-24-1040YFAN-CoV-2 (COVID-19) RNA JAROCHO+probe Ql (Unsp spec)NegativeSaint John'S Health SystemManzama Other CNPNon 12-15-2456PTWSCxnxpskea (PSYLFW) MARKUSYOLANDA Donald ([id number]) 1995 F Date Time Provider Department 04/05/21 CARRIE BOWMANYLFBrady During your visit today, we recorded the following information about you: Carrie Bowman PSYD 04/05/2021 1:31 PM Signed [facility] Documentation of Telephone Call - Provider responded to Pt's ReturnHauler message via phone on 04/05/21 at 1:30 PM. Provider left a HIPAA compliant voicemail with instructions for Pt to follow-up via ReturnHauler. Carrie Bowman PsyD, Maintenance Tech Allergies As of Date: 04/05/2021 Noted Allergy Reaction AMOXICILLIN-POT CLAVULANATE 11/11/2020 14 - Other: See Comments Comments: extreme dizziness BACTRIM (SULFAMETHOXAZOLE-TRIMETH*11/23/2017 8 - GI Upset CEPHALEXIN 11/11/2020 16 - Unknown CIPROFLOXACIN 01/31/2020 16 - Unknown LEXAPRO (ESCITALOPRAM) 11/23/2017 8 - GI Upset ORANGE JUICE 11/23/2017 2 - Rash SERTRALINE 11/11/2020 1 - Mental Status Change 14 - Other: See Comments TRIMETHOPRIM 03/25/2018 14 - Other: See Comments Date Reviewed: 03/04/2021 Reviewed by: Kenyetta Cosby LPN - Fully Assessed Reason for Visit: Care Coordination [3491] Prescriptions as of 04/05/2021 - methylPREDNISolone (MEDROL, NICHOLAS,) 4 mg Dose-Pack As instructed per package - sodium chloride 1 gram tab TALE 1 TABLET BY MOUTH THREE TIMES DAILY. TAKE WITH FOOD. - midodrine (PROAMITINE) 5 mg tablet TAKE 1 TABLET BY MOUTH THREE TIMES A DAY - ivabradine (CORLANOR) 5 mg tablet Take 2.5 mg by mouth twice daily. - metoprolol succinate ER (TOPROL XL) 25 mg 24 hr tablet TAKE 1 TABLET BY MOUTH EVERYDAY AT BEDTIME - gabapentin (NEURONTIN) 300 mg capsule 1 capsule 2x/day - gabapentin (NEURONTIN) 100 mg capsule Take 2 capsules by mouth twice daily. (taken with 300mg capsule) - tiZANidine (ZANAFLEX) 4 mg tablet Take 1 tablet by mouth daily at bedtime. - ondansetron orally disintegrating (ZOFRAN ODT) 4 mg disintegrating tablet Take 4 mg by mouth once daily as needed. - diazePAM (VALIUM) 2 mg tablet Take 1 mg by mouth once daily. - ibuprofen (MOTRIN) 200 mg tablet Take 200 mg by mouth as needed. - acetaminophen (TYLENOL) 500 mg tablet Take 500 mg by mouth as needed. 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] 04/07/2018 02/01/2021 Gait disturbance [R26.9] 09/26/2017 02/01/2021 Cerebrovascular disease [I67.9] 04/08/2018 Facial paresthesia [R20.2] 07/12/2017 POTS (postural orthostatic tachycardia syndrome*02/01/2021 Long COVID [U09.9] 02/01/2021 Cognitive communication deficit [R41.841] 02/10/2021 Encounter Status:Closed by WILFREDO COREA on 04/05/21[facility] COVID Quick Testingon 06-82-6179BwgyrvKpdwcxsmPawzx Code King[employer] Other CT BRAIN WO CONTRASTon 34-96-1429HP BRAIN WO CONTRAST [facility] Department of Radiology [address] [place] [id number] Patient Name: YOLANDA APARICIO : 1995 Sex: F Age: Race: White Pt. [facility]: [facility] Patient Status: E Ordered Date: 07/11/2017 10:05:00 AM Completed Date: 07/11/2017 10:22 AM Requesting Provider: JERMAN MATOS Attending Provider: JERMAN MATOS Report Copy To: Signs & Symptoms: Dizziness(vertigo) History: Patient history not available Comments: R/O CVA Exam: CT BRAIN WO CONTRAST CT BRAIN WO CONTRAST 07/11/2017 10:22 AM EDT SIGNS AND SYMPTOMS: Dizziness(vertigo) TECHNOLOGIST COMMENTS: Pt c/o numbness throughout her face and extremities x 2-3 days. QUESTION FOR THE RADIOLOGIST: R/O CVA PROTOCOL: Axial CT images of the head were obtained without IV contrast. TECHNIQUE:Multi-detector CT axial slices of the brain were obtained without IV contrast. Helical,sagittal, coronal, and 3-D reconstructions were performed and viewed on a separate workstation. Appropriate CT dose lowering techniques were utilized. COMPARISON: None. FINDINGS: There is no shift of the midline structures, acute intracranial bleeding, mass effects, or evidence of acute ischemia. The ventricular system is normal in size. The brainstem and the cerebellum are unremarkable. The visualized intraorbital contents, the visualized paranasal sinuses, and the infratemporal soft tissues show no acute abnormality. The osseous structures in the skull base and the calvarium show no abnormality. IMPRESSION: Normal noncontrasted CT brain. Approved by:Keeley Brandon on 07/11/2017 10:37 AM EDT. I, Jan Saucedo, have reviewed the images and report and concur with these findings. Electronically signed by:Jan Saucedo. Transcribed by: [id number], User Resident: KEELEY BRANDON Electronically Signed by: JAN SAUCEDO @ 07/11/2017 12:08 PM I personally read this/these film(s) with this residentNormalThe Adena Health SystemComment on above:Order Comment: R/O CVAPOC URINE on 63-92-8546OHW.beta subunit ( test) Ql (U)NegativeNormalNEGATIVEThe [facility]ena Health SystemComment on above:Result Comment: Performed in EDPerformed By: #### [id number] #### [facility] [address] Vital Signs Date TimeVital SignValuePerforming OpbrkgsgtPknisqne62-86-2606 11:09-0500Body .83 cmSeth Kerrie DO Work Phone: 1(820)[address] [place], [place] 6410611-11-2025 11:09-0500 Body mass index (BMI) [Ratio]28.2 kg/m2Seth Kerrie DO Work Phone: 1(285)[address] [place], [place] 6410611-11-2025 11:09-0500 Body .8 kgSeth Kerrie DO Work Phone: 1(093)[address] [place], [place] 6410611-11-2025 11:09-0500 Diastolic blood pkrayull74 mm[Hg]Misha Kerrie DO Work Phone: 1([phone] [place], [place] 2789611-11-2025 11:09-0500 Heart rate61 /minSeth Kerrie DO Work Phone: [phone] [place], [place] 2789611-11-2025 11:09-0500 Respiratory rate16 /minSeth Kerrie DO Work Phone: 1(051)[address] [place], [place] 6410611-11-2025 11:09-0500 Systolic blood lxbbwrip032 mm[Hg]Misha Kerrie DO Work Phone: 1(201)[address] [place], [place] 6410611-06-2025 10:30-0500 Body qaqvou629.19 cmSeth Kerrie DO Work Phone: [phone])[address] [place], [place] 6410611-06-2025 10:30-0500 Body mass index (BMI) [Ratio]28.5 kg/m2Seth Ekrrie DO Work Phone: 1(419)[address] [place], [place] 6410611-06-2025 10:30-0500 Body .92 kgSeth Kerrie DO Work Phone: [phone])[address] [place], [place] 6410610-14-2025 10:22-0400 Body ekuice620.83 cmSeth Kerrie DO Work Phone: 1(419)[address] [place], [place] 6410610-14-2025 10:22-0400 Body mass index (BMI) [Ratio]28 kg/m2Seth Kerrie DO Work Phone: 1419)[address] [place], [place] 6410610-14-2025 10:22-0400 Body nipvllnfzfj43.1 [degF]Misha Kerrie DO Work Phone: 1(419)[address] [place], [place] 6410610-14-2025 10:22-0400 Body reylcy32.4 kgSeth Kerrie DO Work Phone: 1(419)[address] [place], [place] 6410610-14-2025 10:22-0400 Diastolic blood ergridps58 mm[Hg]Misha Kerrie DO Work Phone: 1419)[address] [place], [place] 6410610-14-2025 10:22-0400 Heart rate71 /minSeth Kerrie DO Work Phone: 1(419)[address] [place], [place] 6410610-14-2025 10:22-0400 Respiratory rate18 /minSeth Kerrie DO Work Phone: 1(419)[address] [place], [place] 6410610-14-2025 10:22-0400 SaO2% (BldA) [Mass fraction]99 %Misha Kerrie DO Work Phone: 1419)[address] [place], [place] 6410610-14-2025 10:22-0400 Systolic blood buxtfmqc215 mm[Hg]Misha Kerrie DO Work Phone: 1419)[address] [place], [place] 6410610-09-2025 09:20-0400 Body cyinih608.83 cmSeth Kerrie DO Work Phone: [phone])[address] [place], [place] 6410610-09-2025 09:20-0400 Body mass index (BMI) [Ratio]28 kg/m2Seth Kerrie DO Work Phone: 1419)[address] [place], [place] 6410610-09-2025 09:20-0400 Body uhceji81.35 kgSeth Kerrie DO Work Phone: [phone])[address] [place], [place] 6410610-09-2025 09:20-0400 Diastolic blood bocmvvnw41 mm[Hg]Misha Kerrie DO Work Phone: 1419)[address] [place], [place] 6410610-09-2025 09:20-0400 Heart rate73 /minSeth Kerrie DO Work Phone: 1419)[address] [place], [place] 6410610-09-2025 09:20-0400 Respiratory rate18 /minSeth Kerrie DO Work Phone: 1419)[address] [place], [place] 6410610-09-2025 09:20-0400 Systolic blood eiutviag233 mm[Hg]Misha Kerrie DO Work Phone: 1419)[address] [place], [place] 6410610-09-2025 09:04-0400 Body .19 cmSeth Kerrie DO Work Phone: [address] [place], [place] 6410610-09-2025 09:04-0400 Body mass index (BMI) [Ratio]28.3 kg/m2Seth Kerrie DO Work Phone: 1419)[address] [place], [place] 6410610-09-2025 09:04-0400 Body qfggel69.35 kgSeth Kerrie DO Work Phone: 1419)[address] [place], [place] 6410609-24-2025 12:36-0400 Body iicwsh753.19 cmSeth Kerrie DO Work Phone: [address] [place], [place] 6410609-24-2025 12:36-0400 Body mass index (BMI) [Ratio]27.8 kg/m2Seth Kerrie DO Work Phone: 1419)[address] [place], [place] 6410609-24-2025 12:36-0400 Body ayigaryjigz90.4 [degF]Misha Kerrie DO Work Phone: 1419)[address] [place], [place] 6410609-24-2025 12:36-0400 Body ovlplm85.99 kgSeth Kerrie DO Work Phone: 1419)[address] [place], [place] 6410609-24-2025 12:36-0400 Diastolic blood fcfyhabz32 mm[Hg]Misha Kerrie DO Work Phone: 1419)[address] [place], [place] 6410609-24-2025 12:36-0400 Heart rate64 /minSeth Kerrie DO Work Phone: 1419)[address] [place], [place] 6410609-24-2025 12:36-0400 Respiratory rate16 /minSeth Kerrie DO Work Phone: 1419)[address] [place], [place] 6410609-24-2025 12:36-0400 SaO2% (BldA) [Mass fraction]99 %Misha Kerrie DO Work Phone: 1419)[address] [place], [place] 6410609-24-2025 12:36-0400 Systolic blood tfpwsjxa140 mm[Hg]Misha Kerrie DO Work Phone: 1419)[address] [place], [place] 6410609-11-2025 14:29-0400 Body mhziru890.19 cmSeth Kerrie DO Work Phone: 1419)[address] [place], [place] 6410609-11-2025 14:29-0400 Body mass index (BMI) [Ratio]27.9 kg/m2Seth Kerrie DO Work Phone: 1419)[address] [place], [place] 6410609-11-2025 14:29-0400 Body dfxqhmbedvk25.9 [degF]Misha Kerrie DO Work Phone: 1419)[address] [place], [place] 6410609-11-2025 14:29-0400 Body iykxej25.38 kgSeth Kerrie DO Work Phone: [phone])3-[address] [place], [place] 2789609-11-2025 14:29-0400 Diastolic blood ytsntpzl54 mm[Hg]Misha Kerrie DO Work Phone: [address] [place], [place] 6410609-11-2025 14:29-0400 Heart rate94 /minSeth Kerrie DO Work Phone: 1419)[address] [place], [place] 6410609-11-2025 14:29-0400 Respiratory rate18 /minSeth Kerrie DO Work Phone: [address] [place], [place] 6410609-11-2025 14:29-0400 SaO2% (BldA) [Mass fraction]96 %Misha Kerrie DO Work Phone: [address] [place], [place] 6410609-11-2025 14:29-0400 Systolic blood oyjkxrmq737 mm[Hg]Misha Kerrie DO Work Phone: [address] [place], [place] 6410609-09-2025 12:57-0400 Body fyeotsocnmg79.2 [degF]Misha Kerrie DO Work Phone: 1(172)[address] [place], [place] 6410609-09-2025 12:57-0400 Diastolic blood mm[Hg]Misha Kerrie DO Work Phone: 1(343)[address] [place], [place] 6410609-09-2025 12:57-0400 Heart rate65 /minSeth Kerrie DO Work Phone: [address] [place], [place] 6410609-09-2025 12:57-0400 SaO2% (BldA) [Mass fraction]98 %Misha Kerrie DO Work Phone: 1(488)[address] [place], [place] 6410609-09-2025 12:57-0400 Systolic blood hojaakhg145 mm[Hg]Misha Kerrie DO Work Phone: 1(180)[address] [place], [place] 6410608-28-2025 11:27-0400 Body bfyzmz437.19 cmSeth Kerrie DO Work Phone: 1(087)[address] [place], [place] 6410608-28-2025 11:27-0400 Body mass index (BMI) [Ratio]28.9 kg/m2Seth Kerrie DO Work Phone: 1419)[address] [place], [place] 6410608-28-2025 11:27-0400 Body ycvkgxmmiwk08.5 [degF]Misha Kerrie DO Work Phone: 1419)[address] [place], [place] 6410608-28-2025 11:27-0400 Body eqhreq20.11 kgSeth Kerrie DO Work Phone: 1419)[address] [place], [place] 6410608-28-2025 11:27-0400 Diastolic blood ejadyonl08 mm[Hg]Misha Kerrie DO Work Phone: 1419)[address] [place], [place] 6410608-28-2025 11:27-0400 Heart rate58 /minSeth Kerrie DO Work Phone: 1419)[address] [place], [place] 6410608-28-2025 11:27-0400 Respiratory rate16 /minSeth Kerrie DO Work Phone: 1419)[address] [place], [place] 6410608-28-2025 11:27-0400 SaO2% (BldA) [Mass fraction]98 %Misha Kerrie DO Work Phone: 1419)[address] [place], [place] 6410608-28-2025 11:27-0400 Systolic blood ikhboawi478 mm[Hg]Misha Kerrie DO Work Phone: 1419)[address] [place], [place] 6410608-19-2025 13:45-0400 Body ztdeka726.19 cmSeth Kerrie DO Work Phone: 1419)[address] [place], [place] 6410608-19-2025 13:45-0400 Body mass index (BMI) [Ratio]28.3 kg/m2Seth Kerrei DO Work Phone: 1419)[address] [place], [place] 6410608-19-2025 13:45-0400 Body .29 kgSeth Kerrie DO Work Phone: [address] [place], [place] 6410608-14-2025 08:28-0400 Body .1 cmSeth Kerrie DO Work Phone: 1(419)[address] [place], [place] 6410608-14-2025 08:28-0400 Body mass index (BMI) [Ratio]28.4 kg/m2Seth Kerrie DO Work Phone: 1(419)[address] [place], [place] 6410608-14-2025 08:28-0400 Body cksgyfrwtxf59 [degF]Misha Kerrie DO Work Phone: 1(419)[address] [place], [place] 6410608-14-2025 08:28-0400 Body rcukzd52.56 kgSeth Kerrie DO Work Phone: 1(419)[address] [place], [place] 6410608-14-2025 08:28-0400 Diastolic blood hrexqlvr19 mm[Hg]Misha Kerrie DO Work Phone: 1(419)[address] [place], [place] 6410608-14-2025 08:28-0400 Heart rate79 /minSeth Kerrie DO Work Phone: 1(419)[address] [place], [place] 6410608-14-2025 08:28-0400 Respiratory rate18 /minSeth Kerrie DO Work Phone: 1(419)[address] [place], [place] 6410608-14-2025 08:28-0400 SaO2% (BldA) [Mass fraction]97 %Misha Kerrie DO Work Phone: 1(419)[address] [place], [place] 6410608-14-2025 08:28-0400 Systolic blood ugsuufia918 mm[Hg]Misha Kerrie DO Work Phone: 1(419)[address] [place], [place] 6410607-16-2025 09:09-0400 Body iggmmm028.1 cmSeth Kerrie DO Work Phone: 1(419)[address] [place], [place] 6410607-16-2025 09:09-0400 Body mass index (BMI) [Ratio]28.9 kg/m2Seth Kerrie DO Work Phone: 1(419)[address] [place], [place] 6410607-16-2025 09:09-0400 Body hcwhzgmorib12.3 [degF]Misha Kerrie DO Work Phone: [facility]07-16-2025 09:09-0400 Body jslnso47.92 kgSeth Kerrie DO Work Phone: 1(101)6-[address] [place], [place] 2789607-16-2025 09:09-0400 Diastolic blood dgtyxxuu58 mm[Hg]Misha Kerrie DO Work Phone: 1(356)5-[address] [place], [place] 2789607-16-2025 09:09-0400 Heart rate65 /minSeth Kerrie DO Work Phone: 1(913)[address]07-16-2025 09:09-0400 Respiratory rate14 /minSeth Kerrie DO Work Phone: 1(960)[address] [place], [place] 6410607-16-2025 09:09-0400 SaO2% (BldA) [Mass fraction]96 %Misha Kerrie DO Work Phone: 1(511)5-[address] [place], [place] 2789607-16-2025 09:09-0400 Systolic blood mm[Hg]Misha Kerrie DO Work Phone: 1(550)[address]06-27-2025 09:14-0400 Body rgzapn295.1 cmDastella Kevin Jr., DO Work Phone: [facility]06-27-2025 09:14-0400Body mass index (BMI) [Ratio]29.86 kg/r0LhlegDavid Kevin Jr., DO Work Phone: [facility]06-27-2025 09:14-0400Body temperature 97.59 [degF]David Kevin Jr., DO Work Phone: [facility]06-27-2025 09:14-0400Body qoqjyq29.4 kgDavid Kevin Jr., DO Work Phone: [facility]06-27-2025 09:14-0400Diastolic blood dqwofdvf30 mm[Hg]David Kevin Jr., DO Work Phone: [facility]06-27-2025 09:14-0400Heart rate66 /min David Kevin Jr., DO Work Phone: [facility]06-27-2025 09:14-0844BiU3% (BldA) [Mass fraction]97 %David Kevin Jr., DO Work Phone: [facility]06-27-2025 09:140400Systolic blood gujuiqyh33 mm[Hg]David Kevin Jr., DO Work Phone: [facility]06-26-2025 11:06-0400Body haslca643.19 cmSeth Kerrie DO Work Phone: [phone] [place], [place] 6410606-26-2025 11:06-0400 Body mass index (BMI) [Ratio]30.8 kg/m2Seth Kerrie DO Work Phone: 1(702)[address] [place], [place] 6410606-26-2025 11:06-0400 Body fnojan22.15 kgSeth Kerrie DO Work Phone: 1(131)[address] [place], [place] 6410606-16-2025 09:05-0400 Body .09 cmSeth Kerrie DO Work Phone: 1(491)[address] [place], [place] 6410606-16-2025 09:05-0400 Body mass index (BMI) [Ratio]31.5 kg/m2Seth Kerrie DO Work Phone: 1(176)[facility] [place], [place] 2789606-16-2025 09:05-0400 Body oiqrlo81.8 kgSeth Kerrie DO Work Phone: 1(133)[address] [place], [place] 6410606-16-2025 09:05-0400 Diastolic blood hvpttoag03 mm[Hg]Misha Kerrie DO Work Phone: 1(527)[address] [place], [place] 6410606-16-2025 09:05-0400 Heart rate76 /minSeth Kerrie DO Work Phone: 1(997)[address] [place], [place] 6410606-16-2025 09:05-0400 Respiratory rate18 /minSeth Kerrie DO Work Phone: [facility]06-16-2025 09:05-0400 Systolic blood mm[Hg]Misha Kerrie DO Work Phone: 1([phone] [place], [place] 2789606-01-2025 12:21-0400 Body ddatzcygksz93.1 [degF]Misha Kerrie DO Work Phone: 1([phone] [place], [place] 2789606-01-2025 12:21-0400 Diastolic blood mm[Hg]Misha Kerrie DO Work Phone: 1(574)[address]06-01-2025 12:21-0400 Heart rate90 /minSeth Kerrie DO Work Phone: 1(458)133-[address] [place], [place] 2789606-01-2025 12:21-0400 SaO2% (BldA) [Mass fraction]99 %Misha Kerrie DO Work Phone: 1(313)5-[address] [place], [place] 2789606-01-2025 12:21-0400 Systolic blood sfotjgcz918 mm[Hg]Misha Kerrie DO Work Phone: 1(055)6-[address] [place], [place] 2789605-19-2025 17:50-0400 Blood Pressure LocationPatricia Jajaer [phone]-SuwftMer[facility] Nuxr69-92-3152 17:50-0400Body shbwxairpva79.6 [degF]Vianey Bordner [phone]-YjijeMercy Health Def[facility] Hospital [facility] Dtws98-45-7327 17:50-0400Diastolic blood cmxvdrae11 mm[Hg]Vianey Bordner [phone]-HnckaMercy Health Defiance [facility] Szoy29-56-5074 17:50-0400Heart rate66 /minPatricia Bordner [phone]-GrpgsMercy Health [facility] Oqbi07-73-3591 17:50-0400Respiratory rate18 /minPatricia Bordner [phone]-SpzrfMercy Health [facility] Mase76-49-6554 17:50-4457LuX0% (BldA) [Mass fraction]98 %Vianey Cervantes [phone]-VknqpMercy Health [facility] Tbpz15-80-4028 17:50-0400Systolic blood xuqpsonl322 mm[Hg]Vianey Cervantes [phone]-UszfbMercy Health [facility] Leaz62-61-8286 09:35-0400Body wabjbk42.76 kgSeth Kerrie DO Work Phone: [facility]05-08-2025 08:27-0400 Body tagqku489.56 cmAnnkarla Decker APRN Work Phone: [facility]05-08-2025 08:27-0400 Body mass index (BMI) [Ratio]31.2 kg/m2Rajni Decker APRN Work Phone: [facility]05-08-2025 08:27-0400 Body .5 [degF]Rajni Decker APRN Work Phone: [facility]05-08-2025 08:27-0400 Body rnogfc92.55 kgRajni Decker APRN Work Phone: [facility]05-08-2025 08:27-0400 Diastolic blood igejvjcy95 mm[Hg]Rajni Decker APRN Work Phone: [facility]05-08-2025 08:27-0400 Heart rate58 /minRajni Decker APRN Work Phone: [facility]05-08-2025 08:27-0400 Respiratory rate18 /minRajni Decker APRN Work Phone: [facility]05-08-2025 08:27-0400 SaO2% (BldA) [Mass fraction]99 %Rajni Decker APRN Work Phone: [address] [place], [place] 6836605-08-2025 08:27-0400 Systolic blood hmvyztfp777 mm[Hg]Rajni Decker [employer]ILITY SYSTEM REPAIRER Work Phone: 1([phone])[address]05-01-2025 08:50-0400 Body duoqjv566.09 cmAnnkarla Decker UTILITY SYSTEM REPAIRER Work Phone: [phone]05-01-2025 08:50-0400 Body mass index (BMI) [Ratio]30.9 kg/m2Rajni Decker [employer] REPA[employer]ER Work Phone: [phone] [place], [place] 6836605-01-2025 08:50-0400 Body nshcod92.4 kgRajni Decker UTILITY SYSTEM REPAIRER Work Phone: 1(605)[address] [place], [place] 5605805-01-2025 08:50-0400 Diastolic blood wnkazefa30 mm[Hg]Rajni Decker UTILITY SYSTEM REPAIRER Work Phone: 1(318)[address]05-01-2025 08:50-0400 Heart rate86 /minRajni Decker UTILITY SYSTEM REPAIRER Work Phone: 1(507)947-[address] [place], [place] 8560205-01-2025 08:50-0400 Respiratory rate18 /minRajni Decker UTILITY SYSTEM REPAIRER Work Phone: 1(646)[address]05-01-2025 08:50-0400 SaO2% (BldA) [Mass fraction]98 %Rajni Decker UT[employer] SYSTEM REPAIRER Work Phone: 1(826)[address]05-01-2025 08:50-0400 Systolic blood ebjoraid71 mm[Hg]Rajin Decker UT[employer] REPAIRER Work Phone: 1(090)[address]04-19-2025 09:12-0400 Body .56 [facility]04[facility]19-2025 09:12-0400Body mass index (BMI) [Ratio]31.4 kg/c0TtrolnxbaCherrington Hospital04-19-2025 09:12-0400Body qgbqoewbwhv55.5 [degF][facility]04-19-2025 09:12-0400Body igorii90 kgC[facility] Hospital04-19-2025 09:12-0400Diastolic blood vbbqonoz10 mm[Hg][facility] 05-31-2024 09:12-0400Heart rate86 /minC[facility] Hospital 05-31-2024 09:12-0435RgF9% (BldA) [Mass fraction]99 %[facility]04-19-2025 09:12-0400Systolic blood dtnbifvp226 mm[Hg][facility]02-17-2025 09:06-0500Body ilgyfc001.56 cmCannette Meyer PA-C Work Phone: [facility]02-17-2025 09:06-0500 Body mass index (BMI) [Ratio]32.8 kg/a8RatqcgMelanie Meyer PA-C Work Phone: [facility]02-17-2025 09:06-0500 Body udlllzvgbzy50.4 [degF]Melanie Meyer PA-C Work Phone: [facility]02-17-2025 09:06-0500 Body dqjwux65.63 kgMelanie Meyer PA-C Work Phone: [facility]02-17-2025 09:06-0500 Diastolic blood rdkaraiy01 mm[Hg]Melanie Meyer PA-C Work Phone: [facility]02-17-2025 09:06-0500 Heart rate71 /Irene Meyer PA-C Work Phone: [facility]02-17-2025 09:06-0500 Respiratory rate18 /Irene Meyer PA-C Work Phone: [facility]02-17-2025 09:06-0500 SaO2% (BldA) [Mass fraction]98 %Melanie Meyer PA-C Work Phone: [facility]02-17-2025 09:06-0500 Systolic blood hunlxodd309 mm[Hg]Melanie Meyer PA-C Work Phone: [facility]02-14-2025 09:58-0500 Body .4 [degF]Melanie Meyer PA-C Work Phone: [facility]02-14-2025 09:58-0500 Diastolic blood pcmmttqa35 mm[Hg]Melanie BRYSON-Sandeep Work Phone: [facility]02-14-2025 09:58-0500 Heart rate60 /Irene Meyer PA-C Work Phone: [facility]02-14-2025 09:58-0500 SaO2% (BldA) [Mass fraction]97 %Melanie Meyer PA-C Work Phone: [facility]02-14-2025 09:58-0500 Systolic blood ssopjplo194 mm[Hg]Melanie Meyer PA-C Work Phone: [facility]01-16-2025 09:12-0500 Body .56 cmC[facility] Hospital01-16-2025 09:12-0500Body mass index (BMI) [Ratio]30.4 kg/v0CzuwvxnqtCherrington Hospital01-16-2025 09:12-0500Body yxrxjakjqzj78.6 [degF][facility]01-16-2025 09:12-0500Body knfoek78.28 kgCher[facility] Hospital01-16-2025 09:12-0500Diastolic blood dnssdeqf73 mm[Hg][facility] 02-28-2024 09:12-0500Heart rate82 /minC[facility] Hospital 02-28-2024 09:12-2321YqY5% (BldA) [Mass fraction]97 %[facility]01-16-2025 09:12-0500Systolic blood gipnudfb602 mm[Hg][facility]01-05-2025 14:00-0500Body ylhafrvkfiy37.06 [degF]Yvonne Rausch [address] [place], [place] 3564501-05-2025 14:00-0500 Diastolic blood mm[Hg]Kaylinn Dokken [address] [place], [place] 9733301-05-2025 14:00-0500Heart qklh205 /minKaylinn Dokken [address] [place], [place] 9733301-05-2025 14:00-0500 Respiratory rate20 /minKaylinn Dokken [address] [place], [place] 9733301-05-2025 14:00-5843AgF0% (BldA) [Mass fraction]99 %Kaylinn Dokken [address] [place], [place] 9733301-05-2025 14:00-0500 Systolic blood szriycbz440 mm[Hg]Kaylinn Dokken [address] [place], [place] 9733301-05-2025 03:40-0500 Diastolic blood ykazitbp26 mm[Hg]Kaylinn Dokken [address] [place], [place] 9733301-05-2025 03:40-0500Heart rate84 /minKaylinn Dokken [address] [place], [place] 9733301-05-2025 03:40-0500Mean blood aabcakgi80 mm[Hg]Kaylinn Dokken [address] [place], [place] 9733301-05-2025 03:40-0500 Respiratory rate18 /minKaylinn Dokken [address] [place], [place] 9733301-05-2025 03:40-0500 Systolic blood feddrwtr407 mm[Hg]Kaylinn Dokken [address] [place], [place] 9733301-05-2025 02:46-0500 Diastolic blood mm[Hg]Kaylinn Dokken [address] [place], [place] 9733301-05-2025 02:46-0500Heart rate72 /Ness Rausch [facility]01-05-2025 02:46-0500Mean blood ktzlafdm60 mm[Hg]Yvonne Rausch [facility]01-05-2025 02:46-0500 Respiratory rate18 /Ness Rausch [address] [place], [place] 1242301-05-2025 02:46-3303LoG3% (BldA) [Mass fraction]100 %[facility]01-05-2025 02:46-0500 Systolic blood mm[Hg][facility] Hospitaldonald [facility]12-16-2024 08:25-0500Body fqbzxy620.1 cmC[facility] Hospital12-16-2024 08:25-0500Body mass index (BMI) [Ratio]31.6 kg/g3NjayzhkyoCherrington Hospital12-16-2024 08:25-0500Body oarqfsybzaf38.9 [degF][facility]12-16-2024 08:25-0500Body ccnqay39.18 kgC[facility] Hospital12-16-2024 08:25-0500Diastolic blood egxganab51 mm[Hg][facility] 01-28-2024 08:25-0500Heart rate89 /[facility] 01-28-2024 08:25-0500Respiratory rate16 /[facility] 01-28-2024 08:25-8438AmA0% (BldA) [Mass fraction]98 %[facility]12-16-2024 08:25-0500Systolic blood nuuiuuqf721 mm[Hg][facility]11-29-2024 09:45-0500Body wvrcag279.1 cmC[facility] Hospital11-29-2024 09:45-0500Body mass index (BMI) [Ratio]31.6 kg/w8FbmrdsjgpCherrington Hospital11-29-2024 09:45-0500Body bnkbtnburha28.1 [degF][facility]11-29-2024 09:45-0500Body .18 kgC[facility]11-29-2024 09:45-0500Diastolic blood nqvwjvxe88 mm[Hg] [facility]11-29-2024 09:45-0500Heart rate60 /[facility]11-29-2024 09:45-0500Respiratory rate18 /[facility]11-29-2024 09:45-2986BzV8% (BldA) [Mass fraction]97 % [facility]11-29-2024 09:45-0500Systolic blood qojsjacu106 mm[Hg][facility]10-29-2024 09:03-0400Body .1 cm [facility]10-29-2024 09:03-0400Body mass index (BMI) [Ratio]32.1 kg/u1ApvenmqbbCherrington Hospital10-29-2024 09:03-0400Body rbqxcnnfqul95.1 [degF][facility]10-29-2024 09:03-0400Body ucfgkk84.54 kgC[facility] Hospital10-29-2024 09:03-0400Diastolic blood oqcmssss18 mm[Hg][facility]10-29-2024 09:03-0400 Heart rate80 /[facility]10-29-2024 09:03-0400 Respiratory rate18 /[facility]10-29-2024 09:03-0400 SaO2% (BldA) [Mass fraction]98 %[facility]10-29-2024 09:03-0400Systolic blood vsbevmyz771 mm[Hg][facility] 10-09-2023 09:09-0400Body cjxnfe096.1 cmC[facility] Hospital 10-09-2023 09:09-0400Body mass index (BMI) [Ratio]31.6 kg/e6EdmamplcnC[facility]rington Hospital08-27-2024 09:09-0400Body tpqchkecmbv67.8 [degF][facility]08-27-2024 09:090400Body tlbgyt48.18 kgC[facility] Hospital08-27-2024 09:090400Diastolic blood tneeuufm94 mm[Hg][facility]08-27-2024 09:09-0400Heart rate67 /[facility]08-27-2024 09:090400Respiratory rate18 /[facility]08-27-2024 09:09-5699EqG7% (BldA) [Mass fraction]96 %[facility]08-27-2024 09:09-0400Systolic blood befmfoxy320 mm[Hg] [facility]08-22-2024 14:40-0400Body serkfm818.1 cmhRett Baez MD Work Phone: [facility]08-22-2024 14:40-0400 Body mass index (BMI) [Ratio]30.79 kg/h1GoepfRhett Baez MD Work Phone: [facility]08-22-2024 14:40-0400 Body nczlcoufhjl51.3 [degF]Rhett Baez MD Work Phone: [facility]08-22-2024 14:40-0400 Body .92 kgRhett Baez MD Work Phone: [facility]08-22-2024 14:40-0400 Diastolic blood hjxbitpg07 mm[Hg]Rhett Baez MD Work Phone: [facility]08-22-2024 14:40-0400 Heart rate72 /Estela Baez MD Work Phone: [facility]08-22-2024 14:40-0400 Respiratory rate18 /Estela Baez MD Work Phone: [facility]08-22-2024 14:40-0400 Systolic blood mm[Hg]Rhett Baez MD Work Phone: [facility]06-07-2024 09:43-0400 Body kgghen806.1 cmC[facility]06-07-2024 09:43-0400Body mass index (BMI) [Ratio]31.2 kg/y8OstivderlCherrington Hospital06-07-2024 09:43-0400Body bybbyonrvos18.6 [degF][facility]06-07-2024 09:43-0400Body xpmfeq23.27 kgC[facility]06-07-2024 09:43-0400Diastolic blood fhxwqanr35 mm[Hg][facility] 07-20-2023 09:43-0400Heart rate70 /minC[facility] Hospital 07-20-2023 09:43-0400Respiratory rate18 /[facility] 07-20-2023 09:43-6134NtE9% (BldA) [Mass fraction]96 %[facility]06-07-2024 09:43-0400Systolic blood qqexqemo741 mm[Hg][facility]04-23-2024 10:10-0400Body clmxid816.1 cmJeffery Courson DO Work Phone: [facility]04-23-2024 10:10-0400Body mass index (BMI) [Ratio]30.95 kg/j5Ofvnvce Courson DO Work Phone: [facility]04-23-2024 10:100400Body eturfp81.37 kgJeffery Courson DO Work Phone: [facility]03-26-2024 10:13-0400Body .1 cmC[facility]03-26-2024 10:13-0400Body mass index (BMI) [Ratio]31.2 kg/h0PiazgbtdmC[facility]rington Hospital03-26-2024 10:13-0400Body ngcoumugqzg33.1 [degF][facility]03-26-2024 10:13-0400Body ftdqol70.27 kgC[facility]03-26-2024 10:13-0400Diastolic blood xjycizxa24 mm[Hg][facility]03-26-2024 10:13-0400 Heart rate78 /[facility]03-26-2024 10:13-0400 Respiratory rate18 /[facility]03-26-2024 10:13-0400 SaO2% (BldA) [Mass fraction]98 %[facility]03-26-2024 10:13-0400Systolic blood lmvuiyfi395 mm[Hg][facility] 04-03-2023 08:57-0500Body .1 cmC[facility] 04-03-2023 08:57-0500Body mass index (BMI) [Ratio]31.4 kg/u5AnwkqwdefCherrington Hospital02-20-2024 08:57-0500Body dtemicdobra37.6 [degF][facility]02-20-2024 08:57-0500Body pszunx42.72 kgC[facility]02-20-2024 08:57-0500Diastolic blood isyiccqn15 mm[Hg][facility]02-20-2024 08:57-0500Heart rate83 /[facility]02-20-2024 08:57-0500Respiratory rate18 /[facility]02-20-2024 08:57-8179RwR2% (BldA) [Mass fraction]98 %[facility]02-20-2024 08:57-0500Systolic blood boynvnct121 mm[Hg] [facility]01-16-2024 09:45-0500Body pdzoiz855.1 cm [facility]01-16-2024 09:45-0500Body .27 kg [facility]01-16-2024 09:45-0500Diastolic blood ogvkcscb99 mm[Hg][facility]01-16-2024 09:45-0500Systolic blood kibelgxo609 mm[Hg][facility]01-02-2024 17:45-0500Body emtouz318.1 Radha Dolan Other [facility]01-02-2024 17:45-0500 Body mass index (BMI) [Ratio]31.55 kg/v8Gyrzaosmany Dolan Other [employer] Other [id number] 17:45-0500Body vmiujcmufeo26.2 [degF]Edie Dolan Other [facility] [employer] Other [id number] 17:45-0500Body mhgrox34 kgAmbosmany Dolan Other [facility]01-02-2024 17:45-0500 Diastolic blood pqfteacp81 mm[Hg]Edie Dolan Other [facility]01-02-2024 17:45-0500 Respiratory rate18 /minJuanaosmany Dolan Other [employer] Other [id number] 17:45-9879ZnD6% (BldA) [Mass fraction]96 % Edie Dolan Other [employer] Other [id number] 17:45-0500Systolic blood loxygrbr504 mm[Hg] Edie Dolan Other [facility]12-12-2023 15:15-0500 Body xzunmc278.1 cmSeth Kerrie Other [facility]12-12-2023 15:15-0500 Body mass index (BMI) [Ratio]31.28 kg/m2Seth Kerrie Other [employer] Other 12-12-2023 15:15-0500Body wsvbsilnbrq20.3 [degF]Misha Kerrie Other [employer] Other 12-12-2023 15:15-0500Body szcjoh56.28 kgSeth Kerrie Other [employer] Other 12-12-2023 15:15-0500Body .27 kgC[facility] Hospital12-12-2023 15:15-0500Diastolic blood thyzgxll77 mm[Hg] Misha Kerrie Other [facility]12-12-2023 15:15-0500 Respiratory rate20 /minSeth Kerrie Other [employer] Other 12-12-2023 15:15-6278EyW9% (BldA) [Mass fraction]99 % Misha Kerrie Other [employer] Other 12-12-2023 15:15-0500Systolic blood yhzxpfgp947 mm[Hg] Misha Kerrie Other [facility]11-16-2023 15:45-0500 Body .1 cmSeth Kerrie Other [email or web address] Other 11-16-2023 15:45-0500Body mass index (BMI) [Ratio] 30.95 kg/m2Seth Kerrie Other [employer] Other 11-16-2023 15:45-0500Body oklzeoukofx09.6 [degF]Misha Kerrie Other [employer] Other 11-16-2023 15:45-0500Body cncqoi99.37 kgSeth Kerrie Other [employer] Other 11-16-2023 15:45-0500Diastolic blood mm[Hg] Misha Kerrie Other [facility] [employer] Other 11-16-2023 15:45-0500Respiratory rate20 /minSeth Kerrie Other [facility] [employer] Other 11-16-2023 15:45-4025AlI3% (BldA) [Mass fraction]96 % Misha Kerrie Other [employer] Other 11-16-2023 15:45-0500Systolic blood jzibdtwy27 mm[Hg] Misha Kerrie Other [employer] Other 10-20-2023 11:08-0400Body nuvzfk24.73 kgPdavid Arthur MD Work Phone: [facility]10-20-2023 11:08-0400Diastolic blood kvghmfqe72 mm[Hg]Shawn Arthur MD Work Phone: [phone]10-20-2023 11:08-0400Heart rate60 /min Shawn Arthur MD Work Phone: [phone]10-20-2023 11:08-0400Respiratory rate 12 /minPdavid Arthur MD Work Phone: [phone]10-20-2023 11:08-1238JgS4% (BldA) [Mass fraction]96 %Shawn Arthur MD Work Phone: [phone]10-20-2023 11:08-0400Systolic blood bpfwnyaf269 mm[Hg]Shawn Arthur MD Work Phone: [phone]10-15-2023 13:40-0400Body meiuxp050.1 Radha Dolan Other [employer] Other 10-15-2023 13:40-0400Body mass index (BMI) [Ratio] 30.78 kg/x1BqlpsEdie Dolan Other [email or web address] Other 10-15-2023 13:40-0400Body qhtvuddoypy97.3 [degF]Edie Dolan Other [email or web address] Other 10-15-2023 13:40-0400Body piuzna58.92 kgJuanaosmany Dolan Other [email or web address] Other 10-15-2023 13:40-0400Diastolic blood dxeptwon38 mm[Hg] Edie Aguilarler Other [email or web address] Other 10-15-2023 13:40-0400Respiratory rate20 /minAmbosmany Dolan Other [employer] Other 10-15-2023 13:40-7861BwX9% (BldA) [Mass fraction]98 % Edie Dolan Other [email or web address] Other 10-15-2023 13:40-0400Systolic blood bexxmqdy141 mm[Hg] Edie Aguilarler Other [email or web address] Other 09-07-2023 14:15-0400Body jxeeyg938.1 cmSeth Kerrie Other [employer] Other 09-07-2023 14:15-0400Body mass index (BMI) [Ratio] 30.78 kg/m2Seth Kerrie Other [employer] Other 09-07-2023 14:15-0400Body bvksnzvajhc54.5 [degF]Misha Kerrie Other [employer] Other 09-07-2023 14:15-0400Body .92 kgSeth Kerrie Other [employer] Other 09-07-2023 14:15-0400Diastolic blood fdlurnck35 mm[Hg] Misha Kerrie Other [employer] Other 09-07-2023 14:15-0400Respiratory rate20 /minSeth Kerrie Other [employer] Other 09-07-2023 14:15-4228OzZ5% (BldA) [Mass fraction]98 % Misha Kerrie Other [employer] Other 09-07-2023 14:15-0400Systolic blood sqbijkzu840 mm[Hg] Misha Kerrie Other [employer] Other 08-29-2023 12:15-0400Body .1 cmSeth Kerrie Other [employer] Other 08-29-2023 12:15-0400Body mass index (BMI) [Ratio] 30.95 kg/m2Seth Kerrie Other [employer] Other 08-29-2023 12:15-0400Body zgrjjcvnmpi77.1 [degF]Misha Kerrie Other [employer] Other 08-29-2023 12:15-0400Body cljlra07.37 kgSeth Kerrie Other [employer] Other 08-29-2023 12:15-0400Diastolic blood ibznchgv06 mm[Hg] Misha Kerrie Other [employer] Other 08-29-2023 12:15-0400Respiratory rate20 /minSeth Kerrie Other [employer] Other 08-29-2023 12:15-8635PrN2% (BldA) [Mass fraction]97 % Misha Kerrie Other [employer] Other 08-29-2023 12:15-0400Systolic blood jhrtkhaf74 mm[Hg] Misha Kerrie Other [employer] Other 08-10-2023 13:30-0400Body ijffzf237.1 cmSeth Kerrie Other [employer] Other 08-10-2023 13:30-0400Body mass index (BMI) [Ratio] 30.95 kg/m2Seth Kerrie Other [employer] Other 08-10-2023 13:30-0400Body cemdysymbcq27.3 [degF]Misha Kerrie Other [employer] Other 08-10-2023 13:30-0400Body ufvnop35.37 kgSeth Kerrie Other [employer] Other 08-10-2023 13:30-0400Diastolic blood mm[Hg] Misha Kerrie Other [employer] Other 08-10-2023 13:30-0400Respiratory rate20 /minSeth Kerrie Other [employer] Other 08-10-2023 13:30-3693IgD8% (BldA) [Mass fraction]97 % Misha Kerrie Other [employer] Other 08-10-2023 13:30-0400Systolic blood uksutxig25 mm[Hg] Misha Kerrie Other [employer] Other 08-04-2023 07:30-0400Body dxnpcukocsb32.5 [degF]DO Yolanda Staples Work Phone: [facility]08-04-2023 07:30-0400 Diastolic blood ruvyzdlu48 mm[Hg]DO Yolanda Staples Work Phone: [facility]08-04-2023 07:30-0400 Heart rate78 /Aj Staples Work Phone: [phone]08-04-2023 07:30-0400 Respiratory rate20 /Aj Staples Work Phone: [facility]08-04-2023 07:30-0400 SaO2% (BldA) [Mass fraction]95 %DO Yolanda Staples Work Phone: [facility]08-04-2023 07:30-0400 Systolic blood mudtojwo326 mm[Hg]DO Yolanda Staples Work Phone: [facility]08-02-2023 18:02-0400 Body .56 cmDO Yolanda Staples Work Phone: [facility]08-02-2023 18:02-0400 Body jwjyfy70 kgDO Yolanda Staples Work Phone: [facility]08-02-2023 15:46-0400 Diastolic blood ubaasoqm42 mm[Hg]DO Yolanda Staples Work Phone: [facility]08-02-2023 15:46-0400 Heart rate90 /Aj Staples Work Phone: [facility]08-02-2023 15:46-0400 Respiratory rate20 /Aj Staples Work Phone: [facility]08-02-2023 15:46-0400 SaO2% (BldA) [Mass fraction]95 %DO Yolanda Staples Work Phone: [facility]08-02-2023 15:46-0400 Systolic blood nncmyguq943 mm[Hg]DO Yolanda Staples Work Phone: [facility]08-02-2023 12:44-0400 Body ioglgn693.56 cmDO Yolanda Staples Work Phone: [phone]08-02-2023 12:44-0400 Body hrgrzhdluzq10.6 [degF]DO Yolanda Staples Work Phone: [facility]08-02-2023 12:44-0400 Body rfwzle51 kgDO Yolanda Staples Work Phone: [facility]06-15-2023 15:40-0400 Body pfkowv929.29 cmAwilson Dolan Other [employer] Other 06-15-2023 15:40-0400Body mass index (BMI) [Ratio] 31.38 kg/c8YeqlyEdie Dolan Other [facility] [employer] Other 06-15-2023 15:40-0400Body fgdwxgvworg75.4 [degF]Edie Dolan Other [facility] [employer] Other 06-15-2023 15:40-0400Body hfifva32.65 kgEdie Dolan Other [employer] Other 06-15-2023 15:40-0400Diastolic blood iycsphnx93 mm[Hg] Edie Dolan Other [email or web address] Other 06-15-2023 15:40-1305JuZ5% (BldA) [Mass fraction]96 % Edie Dolan Other [employer] Other 06-15-2023 15:40-0400Systolic blood eaiyfato802 mm[Hg] Edie Dolan Other [employer] Other 04-12-2023 09:28-0400Body .37 kgParish Lanier MD Work Phone: [facility]04-12-2023 09:28-0400Diastolic blood mm[Hg]Parish Lanier MD Work Phone: [facility]04-12-2023 09:28-0400Heart rate60 /min Parish Lanier MD Work Phone: [facility]04-12-2023 09:28-0400Systolic blood mzzqorzu29 mm[Hg]Parish Lanier MD Work Phone: [facility]03-25-2023 15:15-0400Body qlcyqx641.29 cmThompatrick Ornelas Other [employer] orthopaedics & sports medicine [employer] Other 03-25-2023 15:15-0400Body mass index (BMI) [Ratio]32.6 kg/l0Ivirdecyndi Ornelas Other [employer] Other 03-25-2023 15:15-0400Body apbglumbsqs79.3 [degF]Armando Ceci Other [employer] Other 03-25-2023 15:15-0400Body nauyfk04.82 kgThcyndi Ornelas Other [employer] Other 03-25-2023 15:15-0400Diastolic blood vyprtvke42 mm[Hg] Armando Ornelas Other [employer] Other 03-25-2023 15:15-6050XfC0% (BldA) [Mass fraction]97 % Armando Ornelas Other [employer] Other 03-25-2023 15:15-0400Systolic blood qdicwisa159 mm[Hg] Armando Ornelas Other [employer] Other 02-22-2023 13:42-0500Body qssdyk173.6 Leonardo Sandoval MD Work Phone: [facility]02-22-2023 13:42-0500Body gtbvli08.82 kgJimenez Sandoval MD Work Phone: [facility]02-08-2023 09:35-0500Body cgxsop600.[address] Work Phone: c[facility] CampusWqpltk23-31-4775 09:35-0500Body fesuic43.[address] Work Phone: c[facility] CampusEdoemx74-88-4240 09:31-0500Body bosjyb511.[address] Work Phone: c[facility] CampusFmtqbp60-22-1947 09:31-0500Body forlni01.[address] Work Phone: c[facility] CampusWsaciv48-61-0218 11:17-0500Body .1 Vikki Ng MD Work Phone: [facility]12-13-2022 11:17-0500Body nqohgc47.36 kgAlvin Ng MD Work Phone: [facility]12-13-2022 11:17-0500Diastolic blood gxkodacv52 mm[Hg]Alvin Ng MD Work Phone: [facility]12-13-2022 11:17-0500Heart rate78 /min Alvin Ng MD Work Phone: [facility]12-13-2022 11:17-0500Systolic blood ndyhxrag80 mm[Hg]Alvin Ng MD Work Phone: [facility]10-31-2022 12:15-0400Body fmgynl810.29 cmSeth Kerrie Other [employer] Other 10-31-2022 12:15-0400Body mass index (BMI) [Ratio] 33.82 kg/m2Seth Kerrie Other [employer] Other 10-31-2022 12:15-0400Body sqrdsatbwtf36.3 [degF]Misha Kerrie Other [employer] Other 10-31-2022 12:15-0400Body aixvrl58 kgSeth Kerrie Other [employer] Other 10-31-2022 12:15-0400Diastolic blood nfyofuwu31 mm[Hg] Misha Kerrie Other [employer] Other 10-31-2022 12:15-0400Respiratory rate20 /minSeth Kerrie Other [employer] Other 10-31-2022 12:15-8254ZoT4% (BldA) [Mass fraction]97 % Misha Kerrie Other [facility] [employer] Other 10-31-2022 12:15-0400Systolic blood wwtahiyb22 mm[Hg] Misha Sy Other [facility] [employer] Other 09-21-2022 08:12-0400Diastolic blood idfencnc17 mm[Hg] Jaskaran Guzman UTILITY SYSTEM REPAIRER.[employer]KE [employer] Work Phone: [phone]. [facility], [facility] CampusVeqlbm57-48-8857 08:12-0400Heart rate73 /min Jaskaran Guzman UTILITY SYSTEM REPAIRER.CAKE MAKER Work Phone: [phone]. Mary[facility], [facility] CampusUtzuas89-18-5521 08:12-0400Systolic blood tuozcvme513 mm[Hg]Jsakaran Guzman UTILITY SYSTEM REPAIRER.CAKE MAKER Work Phone: [phone]. Mary's Medical Center, [facility] CampusBxompk23-66-3362 07:28-0400Body vamjhy887.1 cmJaskaran Guzman UTILITY SYSTEM REPAIRER.CAKE MAKER Work Phone: [phone]. Mary's Medical [facility], [facility] CampusDzblif59-87-8231 07:28-0400Body qymwby38.18 kgShawnle Megan UTILITY SYSTEM REPAIRER.CAKE MAKER Work Phone: [phone]. Mary[facility] Medical [facility], [facility] CampusLdklgm01-95-2347 10:16-0400Body .[address] Work Phone: [phone] Health SystemHquvej07-94-6455 10:16-0400Body wqkjoe04.[address] Work Phone: [phone]. Mary[facility], [facility] CampusElvlfs66-89-1350 10:36-0400Body .6 Vikki Ng MD Work Phone: [phone]09-13-2022 10:36-0400Body pqebhc52.46 Reva Ng MD Work Phone: [phone] [address]-13-2022 10:36-0400Diastolic blood djioxqcc08 mm[Hg]Alvin Ng MD Work Phone: [phone] [address]-13-2022 10:36-0400Systolic blood inbrnjky28 mm[Hg]Alvin Ng MD Work Phone: [facility]07-27-2022 08:36-0400Body uubctk792.[address] Work Phone: cSt. [facility] CampusUucaas47-93-0392 08:36-0400Body .[address] Work Phone: cSt. [facility] CampusEuhbgn56-15-2877 12:30-0400Body qadkdb122.29 cmSeth Kerrie Other [employer] Other 07-19-2022 12:30-0400Body mass index (BMI) [Ratio] 32.95 kg/m2Seth Kerrie Other [employer] Other 07-19-2022 12:30-0400Body cxothwyqrwk491 [degF]Misha Kerrie Other [employer] Other 07-19-2022 12:30-0400Body shyvur62.73 kgSeth Kerrie Other [employer] Other 07-19-2022 12:30-0400Diastolic blood sehpppbp13 mm[Hg] Misha Kerrie Other [employer] Other 07-19-2022 12:30-0400Respiratory rate20 /minSeth Kerrie Other [employer] Other 07-19-2022 12:30-5959UlU4% (BldA) [Mass fraction]98 % Misha Kerrie Other [employer] Other 07-19-2022 12:30-0400Systolic blood jqkcsuew11 mm[Hg] Misha Kerrie Other [facility] [employer] Other 07-08-2022 13:05-0400Body mbnuzp595.29 cmPeggy Greenwood Other [employer] Other 07-08-2022 13:05-0400Body mass index (BMI) [Ratio] 31.38 kg/u4Ebwby Greenwood Other [employer] Other 07-08-2022 13:05-0400Body vjejhaijsqa34.8 [degF]Maryvlad Greenwood Other [employer] Other 07-08-2022 13:05-0400Body isxbdm71.65 kgPeggy Greenwood Other [employer] Other 07-08-2022 13:05-0400Respiratory rate18 /minPeggleona Greenwood Other [facility] Other 07-08-2022 13:05-3040DsC3% (BldA) [Mass fraction]98 % Maryvlad Greenwood Other [place] [employer] Other 06-15-2022 09:34-0400Body opdsfi624.[address] Work Phone: c[facility], beachwoodand Nriwcx45-96-7133 09:34-0400Body hrixyn68.[address] Work Phone: [place] Hblbal58-40-4274 15:15-0400Body expykk608.29 cmSeth Kerrie Other [place] [employer] Other 04-19-2022 15:15-0400Body mass index (BMI) [Ratio]32.6 kg/m2Seth Kerrie Other [employer] Other 04-19-2022 15:15-0400Body vtmvjqvyqig59.9 [degF]Misha Kerrie Other [employer] Other 04-19-2022 15:15-0400Body mnxheq29.82 kgSeth Kerrie Other [employer] Other 04-19-2022 15:15-0400Diastolic blood ovwluvpc47 mm[Hg] Misha Kerrie Other [employer] Other 04-19-2022 15:15-0400Respiratory rate20 /minSeth Kerrie Other [facility] Other 04-19-2022 15:15-3933CrE5% (BldA) [Mass fraction]97 % Misha Kerrie Other [facility] Other 04-19-2022 15:15-0400Systolic blood dnhrqcda289 mm[Hg] Misha Kerrie Other [place] [employer] Other 04-19-2022 09:00-0400Body hxfhga521.[address] Work Phone: cSt. [facility] CampusZxytvg95-55-2456 09:00-0400Body cuealb44.[address] Work Phone: cSt. [facility] CampusAhxiwp04-95-3548 03:29-0400Body kdzlac339.6 cmSleep Main Work Phone: [facility]04-06-2022 03:29-0400Body otfyoo11 kg Sleep Main Work Phone: [place] [address]-18-2022 11:15-0500Body .29 cmSeth Kerrie Other [employer] Other 02-18-2022 11:15-0500Body mass index (BMI) [Ratio] 33.13 kg/m2Seth Kerrie Other [employer] Other 02-18-2022 11:15-0500Body oxkaiusxrqw93.4 [degF]Misha Kerrie Other [employer] Other 02-18-2022 11:15-0500Body yvjgcj05.18 kgSeth Kerrie Other [employer] Other 02-18-2022 11:15-0500Diastolic blood jouqmdny79 mm[Hg] Misha Kerrie Other [employer] Other 02-18-2022 11:15-0500Respiratory rate20 /minSeth Kerrie Other [employer] Other 02-18-2022 11:15-9448QkB8% (BldA) [Mass fraction]98 % Misha Kerrie Other [employer] Other 02-18-2022 11:15-0500Systolic blood mm[Hg] Misha Kerrie Other [employer] Other 11-23-2021 12:15-0500Body .29 cmSeth Kerrie Other [employer] Other 11-23-2021 12:15-0500Body mass index (BMI) [Ratio] 31.21 kg/m2Seth Kerrie Other [employer] Other 11-23-2021 12:15-0500Body obxqtyhwxpi08.1 [degF]Misha Kerrie Other [employer] Other 11-23-2021 12:15-0500Body .19 kgSeth Kerrie Other [employer] Other 11-23-2021 12:15-0500Diastolic blood oipkrsix14 mm[Hg] Misha Kerrie Other [employer] Other 11-23-2021 12:15-0500Respiratory rate20 /minSeth Kerrie Other [employer] Other 11-23-2021 12:15-4094CkQ5% (BldA) [Mass fraction]98 % Misha Kerrie Other [employer] Other 11-23-2021 12:15-0500Systolic blood ztvvdeao213 mm[Hg] Misha Kerrie Other [employer] Other 10-20-2021 17:30-0400Body nkotiv135.29 cmSeth Kerrie Other [employer] Other 10-20-2021 17:30-0400Body mass index (BMI) [Ratio] 30.34 kg/m2Seth Kerrie Other [employer] Other 10-20-2021 17:30-0400Body rarzzxldtdy16.2 [degF]Misah Kerrie Other [employer] Other 10-20-2021 17:30-0400Body xznihg72.93 kgSeth Kerrie Other [employer] Other 10-20-2021 17:30-0400Diastolic blood pjdxiyjc09 mm[Hg] Misha Kerrie Other [employer] Other 10-20-2021 17:30-0400Respiratory rate18 /minSeth Kerrie Other [employer] Other 10-20-2021 17:30-9871QqI3% (BldA) [Mass fraction]98 % Imsha Kerrie Other [employer] Other 10-20-2021 17:30-0400Systolic blood gmlkyvwu581 mm[Hg] Misha Kerrie Other [employer] Other 10-13-2021 10:15-0400Body btumjw010.29 cmPameljennifer Quiroz Other [employer] Other 10-13-2021 10:15-0400Body mass index (BMI) [Ratio] 29.64 kg/a5Xybdza Dymond Other [employer] Other 10-13-2021 10:15-0400Body pookswudkfi17.7 [degF]Mary Quiroz Other [employer] Other 10-13-2021 10:15-0400Body athqfg68.11 kgParicha Gabriella Other [employer] Other 10-13-2021 10:15-0400Respiratory rate18 /minMary Quiroz Other [employer] Other 10-13-2021 10:15-8908ZqJ2% (BldA) [Mass fraction]98 % Mary Quiroz Other [employer] Other 09-23-2021 16:00-0400Body jhjylw271.29 cmSeth Kerrie Other [employer] Other 09-23-2021 16:00-0400Body mass index (BMI) [Ratio] 29.99 kg/m2Seth Kerrie Other [employer] Other 09-23-2021 16:00-0400Body tydzibvwzyd63.4 [degF]Misha Kerrie Other [employer] Other 09-23-2021 16:00-0400Body qcrbgy74.02 kgSeth Kerrie Other [employer] Other 09-23-2021 16:00-0400Diastolic blood asypkqdm73 mm[Hg] Misha Kerrie Other [employer] Other 09-23-2021 16:00-0400Respiratory rate20 /minSeth Kerrie Other [employer] Other 09-23-2021 16:00-6204YxE5% (BldA) [Mass fraction]98 % Misha Kerrie Other [employer] Other 09-23-2021 16:00-0400Systolic blood bsasnthl031 mm[Hg] Misha Sy Other [employer] Other Encounters Encounter DateEncounter TypeCare ProviderFacilityStart: 12-23-2024 End: 04-68-9084juklaorwgvPkik M. Kerrie DO Work Phone: [phone]-TCPKJctyk: 12-23-2024 End: 69-18-2122Yxgmdfu encounter procedureJemontserrat Ge [facility] Work Phone: Start: 88-51-7990wqwvxgbqdwJyjo M. Kerrie [facility]: 95-78-6025Hmwfkvhbth Recurring Mishacharly Barclayes Joo DO-Physical [facility] [place] Work Phone: Start: 12-18-2024 End: 82-67-7437bnbdxvikuxZslz M. Kerrie DO Work Phone: [phone]-OGWACrxak: 12-18-2024 End: 87-71-1959Yqlqdiq encounter procedureYoanna Whitehead [facility] Work Phone: Start: 12-12-2024 End: 73-40-6572bqaoezlfzpRDGC POTTERFacility:[facility]tart: 12-11-2024 Registered RecurringSeth Kerrie M DO-Physical Therapy [place] Work Phone: Start: 12-09-2024 End: 11-52-3055Khrmak flowsheetNatalie A Felter UTILITY SYSTEM REPAIRER-[employer]KE [employer] Work Phone: noTX Javier DermatologyStart: 12-09-2024 End: 90-74-8024Yswgky flowsheetNatalie A Felter UTILITY SYSTEM REPAIRER-[employer]KE [employer]ER Work Phone: noMS Herrera DermatologyStart: 12-09-2024 End: 40-94-8366Hibfun outpatient visit 5 minutesNatalie A Felter UTILITY SYSTEM REPAIRER-[employer]KE [employer]ER Work Phone: no Otoe DermatologyComment on above:Acne vulgaris (Primary Dx)Start: 12-09-2024 End: 66-99-4905bcahjqgtakVUQJULJ A FELTERNot AvailableStart: 11-25-2024 End: 65-89-7900ikgaytqmbzYtlt JooJoby Barclayes DO Work Phone: [facility] Work Phone: Start: 11-25-2024 End: 13-15-5319Pzjiyan encounter Sergio Ge DO-[facility] Work Phone: Start: 11-20-2024 End: 67-87-6361newiifshgzAtlc M. Ruggles DO Work Phone: [facility] Work Phone: Start: 11-20-2024 End: 57-28-8004Ouihork encounter procedureCeleste Ge [facility] Work Phone: Start: 11-10-2024 End: 83-56-1469fefpmeixpjHQSFG GRUBBUniUC [facility] Hospitaltart: 11-05-2024 End: 99-57-1873eeitkwvivkAeio JooJoby Barclayes DO Work Phone: [facility] Work Phone: Start: 11-05-2024 End: 14-18-8394Mzgeoyr encounter procedureJeannine Ge UTILITY SYSTEM REPAIRER-[facility] Work Phone: Start: 11-03-2024 End: 17-37-3473Vtbcgg flowsheetNatalie A Felter UTILITY SYSTEM REPAIRER-[employer] Work Phone: no Javier DermatologyStart: 11-03-2024 End: 22-07-6622Vrhzjm flowsheetNatalie A Felter UTILITY SYSTEM REPAIRER-CAKE [employer]ER Work Phone: no Javier DermatologyStart: 11-03-2024 End: 10-00-5967Hfspdb outpatient visit 5 minutesNatalie A Felter UTILITY SYSTEM REPAIRER-[employer]KE [employer] Work Phone: NO Javier DermatologyComment on above:Acne vulgarisStart: 11-03-2024 End: 63-78-2154bkifjmkweeJDLZIIW A FELTERNot AvailableStart: 10-23-2024 End: 14-92-3870ioxxfqqtmtLjql M. Kerrie DO Work Phone: [facility] Work Phone: Start: 10-23-2024 End: 45-00-2337Kukeqeb encounter procedureSeth Kerrie Ge [facility] Work Phone: Start: 10-21-2024 End: 49-76-8092rrhkbduxrnMvrj M. Kerrie DO Work Phone: [facility] Work Phone: Start: 10-21-2024 End: 98-08-3572Wysrlfl encounter procedureAmbosmany Dolan UTILITY SYSTEM REPAIRER-[facility] Work Phone: Start: 10-09-2024 End: 13-97-3048anvgjczcstRnel JooJoby GaonaKerrie DO Work Phone: [facility] Work Phone: Start: 10-09-2024 End: 23-65-9498Dikorsx encounter procedureSeth Kerire Ge DO-[facility] Work Phone: Start: 10-02-2024 End: 07-52-4732Qdzrti flowsReyes BRYSON Work Phone: no Javier DermatologyStart: 10-02-2024 End: 59-20-5729Kahyva flowsReyes BRYSON Work Phone: noMS Herrera DermatologyStart: 10-02-2024 End: 89-27-8405Sxztzb outpatient visit 15 minutesNikki BRYSON Work Phone: DAVID Javier DermatologyComment on above:Acne vulgaris (Primary Dx); Keloid scar; PainStart: 10-02-2024 End: 02-64-5684pyoitwgoedWTUXN NORTHEIMNot AvailableStart: 09-30-2024 End: 26-44-0704aulvtenaxyCryr M. Ruggles DO Work Phone: [facility] Work Phone: Start: 09-30-2024 End: 49-61-3327Lghjoqe encounter procedureYoanna Whitehead [facility] Work Phone: Start: 09-25-2024 End: 25-11-9121pisukyeytvEzzr M. Ruggles DO Work Phone: [facility] Work Phone: Start: 09-25-2024 End: 81-00-8086Dxmkhje encounter procedureSmichelle Ge DO-[facility] Work Phone: Start: 09-24-2024 End: 74-98-9872iwizphwwwrWHODCQW A [facility] Hospitaltart: 09-19-2024 End: 40-18-7773jxjzxonlhhDTZK POTTERFacility:[facility] HospitalStart: 09-17-2024 End: 80-49-8419Xonwbzw encounter procedureSmichelle Ge DO-[facility] Work Phone: Start: 09-17-2024 End: 26-67-7703zrtvqmezjeXtth M. Ruggles DO Work Phone: [facility] Work Phone: Start: 09-10-2024 End: 19-07-1585Xrusgmdvx encounterDawdonald Gamez PSYD Work Phone: NEUROLOGYComment on above:Opened In ErrorStart: 78-01-7624Eyi-patient / Non-visitLindshong SchusterUNITED [facility] [place] Work Phone: Start: 08-27-2024 End: 92-47-8821Pbzandea MarianneChelsiekarla Jeronimo Ge UTILITY SYSTEM REPAIRER-[facility] [place] Work Phone: Start: 37-19-9075Acobknlelm MarianneChelsiekarla Ellingtongurinder Ge [facility]- [facility] [place] Work Phone: Start: 08-27-2024 End: 74-75-3593aoczkseulyWuap M. Ruggles DO Work Phone: [facility] Work Phone: Start: 08-27-2024 End: 48-71-7936Mdqicsa encounter procedureRajni Ge APRNUNITED MEMORIAL [facility] Work Phone: Start: 08-19-2024 End: 34-61-6687wdhrraakrqQkas M. Ruggles DO Work Phone: [facility] Work Phone: Start: 08-19-2024 End: 43-22-3949Raxoosp encounter procedureMaangelic [facility] Work Phone: Start: 08-14-2024 End: 90-40-1607Iyfukh outpatient visit 40 minutesRhett Baez MD Work Phone: [facility] BolwellComment on above: POTS (postural orthostatic tachycardia syndrome)Start: 08-14-2024 End: 49-98-2059tgxkvhljonMLQKR R CHEMALIGreen Cross Hospitaltart: 08-13-2024 End: 80-19-1912lvpsmrkqblWzsa M. Ruggles DO Work Phone: [facility] Work Phone: Start: 08-13-2024 End: 55-53-7632Qktmgez encounter procedureMadismaximiliano [facility] Work Phone: Start: 08-13-2024 End: 44-22-6208Nwkvrcz encounter procedureSmichelle Ge DO-Lab [facility] Work Phone: Start: 08-13-2024 End: 42-81-0219uxgvshmbbqPtgv M. Ruggles DO Work Phone: [facility] Work Phone: Start: 08-11-2024 End: 61-34-1764Qraeuw-up encounterDavid Camacho Kevin DO Work Phone: [facility] BuffaloStart: 08-11-2024 End: 64-60-8856zaxozgznoaBDDCMiguel SYFacility:[facility] Start: 30-63-8031Ned-patient / Non-visitDavid Camacho Dorita DO-[facility] Work Phone: Start: 16-54-0308Hpt-patient / Non-visitDavid L Dorita DO-[facility] Work Phone: Start: 08-08-2024 End: 04-98-7079bowyutrkqeDQUGS L DORITA JRFacility:[facility] Start: 08-08-2024 End: 23-64-4717Rtuvrey encounter procedureDavid Camacho Hykes DO Work Phone: GastroenterologyComment on above:Intestinal malabsorption, unspecified type (HCC) (Primary Dx); Chronic nausea; Gastroesophageal reflux disease, unspecified whether esophagitis presentStart: 08-08-2024 End: 04-42-4754crrwfhhmqoJTTXM Camacho DORITA JRFacility:[facility] Start: 08-07-2024 End: 23-95-7988Qeicxbd encounter procedureYoanna Whitehead [facility] Work Phone: Start: 08-07-2024 End: 87-63-0452oxcptpzvnqRvyr M. Kerrie DO Work Phone: [facility] Work Phone: Comment on above:PTSD (post-traumatic stress disorder) (Primary Dx); Post-acute 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); POTS (postural orthostatic tachycardia syndrome); Mixed obsessional thoughts and acts; Persistent depressive disorder with anxious distress, currently severeStart: 08-07-2024 End: 15-09-1883Sbvdtxipylet consultation with Amanda Franco RODRIGUEZ Work Phone: NEUROLOGYStart: 08-07-2024 End: 05-90-5856myliqicifaMBDM POTTERFacility:[facility]onal HospitalStart: 08-06-2024 End: 66-08-8765Sontiaqhi encounterDawdonald FLORESCARLY Work Phone: NEUROLOGYComment on above:AppointmentStart: 07-31-2024 End: 62-33-3753Cuckho [facility] Work Phone: noms SWS DERMStart: 07-31-2024 End: 40-71-2367Muveak [facility] Work Phone: noMS [facility] DERMStart: 07-31-2024 End: 47-46-2758Jxdsujq encounter procedureMaangelic [facility]Mad[facility] Work Phone: Start: 07-31-2024 End: 43-23-3962Pbkbdd outpatient visit 5 [facility] Work Phone: noms SWS DERMComment on above:Encounter for removal of suturesStart: 07-31-2024 End: 52-64-3501xlfqmbjrllDAJLI NORTHEIMNot AvailableStart: 07-28-2024 End: 26-45-2404Jlddrbt encounter procedureJemontserrat Ge [facility] Work Phone: Start: 07-24-2024 End: 16-31-2487Pmcswskq HealthDacasimiro Franco RODRIGUEZ Work Phone: NEUROLOGYComment on above:PTSD (post-traumatic stress disorder) (Primary Dx); POTS (postural orthostatic tachycardia syndrome)Start: 07-17-2024 End: 66-21-6884Yiawrb flowsReyes Capellancullman [facility] PA Work Phone: noms SWS DERMStart: 07-17-2024 End: 95-17-3623Cnsjao Dalilakarla [facility] PA Work Phone: noms SWS DERMStart: 07-17-2024 End: 36-11-3898Rsrjhy outpatient new [address] Warren Hospitalkarla [facility] PA Work Phone: noms [facility] DERMComment on above:Acne vulgaris (Primary Dx); Melanocytic nevus of face, other location; Neoplasm of unspecified behavior of bone, soft tissue, and skinStart: 07-17-2024 End: 54-25-6286jkluuabvtnSUCDD FITZGIBBON HOSPITALMNot AvailableStart: 07-16-2024 End: 63-76-5091Zwtcyulsb encounterDawn Franco RODRIGUEZ Work Phone: NEUROLOGYComment on above:AppointmentStart: 07-14-2024 End: 47-19-0757hnbukevpfyHWWOACK Clementine [facility] Hospitaltart: 78-13-1168erdyhczfibBvkrz M. DempseyFacility:LIU Rodrigueztart: 07-13-2024 End: 96-80-6598xgqcixongnLxcq M. Ruggles DO Work Phone: [facility] Work Phone: Start: 07-13-2024 End: 48-70-1513Ikiodop encounter procedureSeth Kerrie DO Work Phone: [facility] Work Phone: Start: 07-11-2024 End: 62-92-6532Ucnkitqx HealthDawn Franco RODRIGUEZ Work Phone: NEUROLOGYComment on above:PTSD (post-traumatic stress disorder) (Primary Dx); POTS (postural orthostatic tachycardia syndrome); Post-acute 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); Mixed obsessional thoughts and acts; Persistent depressive disorder with anxious distress, currently severeStart: 07-09-2024 End: 44-50-6020wneyxgnoxzQBPDFMR J [facility] Hospitaltart: 07-04-2024 End: 58-54-5364svshppozivRYMHVPH J [facility] Hospitaltart: 06-30-2024 End: 47-96-7558fvdjifyalyTmbvcjwc C BordnerFacility:LIU Rodrigueztart: 06-30-2024 End: 13-22-0973Qhfnsms encounter procedurePatalya Cervantes [phone]-StvkuMer[facility] Start: 06-27-2024 End: 06-09-4530Vxdznjm encounter procedureSeth Kerrie DO Work Phone: [facility] Work Phone: Start: 06-26-2024 End: 35-78-1823Riwwndkc HealthDawn Franco RODRIGUEZ Work Phone: NEUROLOGYComment on above:PTSD (post-traumatic stress disorder) (Primary Dx); POTS (postural orthostatic tachycardia syndrome); Post-acute 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)Start: 06-20-2024 End: 27-18-5687zbimskplwbFKYYNEO [facility] Hospitaltart: 06-19-2024 End: 30-27-1433kskdqtoqulQirw Hahn APRN Work Phone: [facility] Work Phone: Start: 06-19-2024 End: 81-54-4888Zmfrkzv encounter procedureRajni Decker APRN Work Phone: [facility] Work Phone: Start: 06-13-2024 End: 93-58-3372vnechdlxypRRAFBSS [facility] Hospitaltart: 06-12-2024 End: 83-52-7452wrgylgbiufIvej Decker UTILITY SYSTEM REPAIRER Work Phone: [facility] Work Phone: Start: 06-12-2024 End: 17-49-4597Urdbfvm encounter procedureRajni Decker UTILITY SYSTEM REPAIRER Work Phone: [facility] Work Phone: Start: 06-10-2024 End: 65-59-6586jynfmdajbwELPER R [facility]: 06-09-2024 End: 21-74-3468ojzwegyhgoAK ASSIGNED [facility]CP [facility]: 06-06-2024 End: [id number]-mail encounter from caregiverJudy Franco RODRIGUEZ Work Phone: NEUROLOGYStart: 06-06-2024 End: 24-23-8732yyihxrykqxQrvn Potter PSYD Work Phone: NEUROLOGYComment on above:Visit todayStart: 06-05-2024 End: 79-34-1641ivnnjkdqmlMG ASSIGNED [facility]CP [facility]: [id number]-patient / Non-visitAnnkarla Ellingtonhn UTILITY SYSTEM REPAIRER Work Phone: [facility] Work Phone: Start: [id number]-patient / Non-visitAnne Decker UTILITY SYSTEM REPAIRER Work Phone: [facility] Work Phone: Start: 06-02-2024 End: 92-48-2853Tessasrhg department patient visitCameron Graham [facility] Start: 06-02-2024 End: 36-45-6271eugxpkksjnNW ASSIGNED PCP [facility]: 05-31-2024 End: 26-56-4233Yysfrhkw Rachel Decker APRN Work Phone: [facility] [address] Start: 05-31-2024 End: 46-92-4342nxrhvzgtymQcyy M [facility]amberFair[facility] Work Phone: Start: 05-31-2024 End: 83-63-4860zxetukbjdvApplzjhro [facility] Work Phone: Start: 05-31-2024 End: 12-79-0353Funxfdj encounter procedureCritical Access Hospital Physician Group-[facility] Work Phone: Start: 05-22-2024 End: 63-50-7166Igdctktxlouisa FLORESeshtery Work Phone: NEUROLOGYComment on above:PTSD (post-traumatic stress disorder) (Primary Dx); Post-acute 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); POTS (postural orthostatic tachycardia syndrome)Start: 05-19-2024 End: 43-47-3776vnxplafhokQU ASSIGNED [facility]CP [facility]: 05-16-2024 End: 43-34-6036fqimomoigbMT ASSIGNED PCP [facility]art: 05-06-2024 End: 52-82-6613scfittgjysNBUKDFL J [facility]tart: 05-05-2024 End: 29-48-2403rfcuslrislWYGATHTPH ORTIZFacility:CC Jennifertart: 04-24-2024 End: 82-52-5699Bbnfleya HealthDadonald Gamez PSeshtery Work Phone: NEUROLOGYComment on above:PTSD (post-traumatic stress disorder) (Primary Dx); Post-acute 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); POTS (postural orthostatic tachycardia syndrome); Mixed obsessional thoughts and acts; Persistent depressive disorder with anxious distress, currently severeTest AppointmentStart: 06-65-7990Oqf-patient / Non-visitCritical Access Hospital Physician Group-[facility] Work Phone: Start: 03-31-2024 End: 93-18-7047ypyetqydncXwampk Lewis PA-C Work Phone: [facility] Work Phone: Start: 03-31-2024 End: 61-08-6939Kkltjid encounter Lazaro Meyer PA-C Work Phone: [facility] Work Phone: Start: 03-28-2024 End: 20-01-1329rmxyzawhepGanikk Lewis PA-C Work Phone: [facility] Work Phone: Start: 03-28-2024 End: 39-02-6423Ixegnmb encounter Lazaro Meyer PA-C Work Phone: [facility] Work Phone: Start: 03-26-2024 End: 78-32-5969Lidmvrxy [facility] Franco RODRIGUEZ Work Phone: NEUROLOGYComment on above:PTSD (post-traumatic stress disorder) (Primary Dx); Post-acute 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); POTS (postural orthostatic tachycardia syndrome); Mixed obsessional thoughts and actsAppointmentStart: 02-28-2024 End: 41-08-8397Styatycl Jessenia Meyer PA-C Work Phone: [facility] [place] Work Phone: Start: 02-28-2024 End: 51-00-1072iakblqfwmqEvdcfp [facility] Work Phone: Start: 02-28-2024 End: 85-35-0890Ubxgnqk encounter procedureMis Physician GroupUNITED [facility] Work Phone: Start: 57-39-1578Prx-patient / Non-visitFirsouthside regional medical center Physician GroupKindred [facility] Work Phone: Start: 02-17-2024 End: 52-42-5521Jepaliwpt department patient visitYvonne Rausch [facility] Start: 01-28-2024 End: 07-60-3216Pezzwco encounter procedureCritical Access Hospital Physician [facility] Work Phone: Start: 01-24-2024 End: 11-58-9661Gggtuu outpatient visit 40 Hasmukh Baez MD Work Phone: [facility] BolwellComment on above: POTS (postural orthostatic tachycardia syndrome) (Primary Dx)Start: 01-24-2024 End: 84-16-9682nvxpqxqoifWMVWHThe Surgical Hospital at Southwoodstart: 01-11-2024 End: 17-77-5766Rtlzymy encounter procedureCritical Access Hospital Physician GroupUNITED [facility]IAL [facility] Work Phone: Start: 12-25-2023 End: 19-32-6468Bxgjfviy [facility] Franco RODRIGUEZ Work Phone: NEUROLOGYComment on above:PTSD (post-traumatic stress disorder) (Primary Dx); Post-acute 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); Mixed obsessional thoughts and actsStart: 12-12-2023 End: 55-49-6856Xkxmjgxulc hospital visit by physicianSouth[facility] [id number] Neurodg Emg Equip 1Sedan City HospitalComment on above:POTS (postural orthostatic tachycardia syndrome)Start: 12-12-2023 End: 19-76-5028rnrdddidaiKWHJNWestern Reserve Hospitaltart: 12-12-2023 End: 65-03-1322julzceqbiaAYTZWThe Surgical Hospital at Southwoodstart: 12-12-2023 End: 73-29-4706Crlnfczxoe hospital visit by physicianSouthwestern Regional Medical [facility] [id number] Neurodg Auto EquipSedan City HospitalComment on above:POTS (postural orthostatic tachycardia syndrome)Start: 12-11-2023 End: 97-98-8682Neqtwbid HealthDacasimiro Gamez PSYD Work Phone: NEUROLOGYComment on above:PTSD (post-traumatic stress disorder); Post-acute 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)AppointmentStart: 12-11-2023 End: 44-14-2941oltkapscnkLomokrtzkSelect Medical [facility] Work Phone: Start: 12-11-2023 End: 11-37-2908Gxmzkvy encounter procedureCritical Access Hospital Physician GroupBellflower Medical Center Work Phone: Start: 11-28-2023 End: 51-46-4740xcpnytvvaaWhrcxikfwSelect Medical [facility] Work Phone: Start: 11-28-2023 End: 60-98-5378Bsgfdad encounter procedureCritical Access Hospital Physician GroupUNITED [facility]ORIAL [facility] Work Phone: Start: 11-19-2023 End: 51-99-7785yqraxzxqzhUSFVUSelect Medical Specialty [facility] Northtart: 11-16-2023 End: 77-17-2770bkbdppkomzQigx Potter PSYD Work Phone: NEUROLOGYComment on above:ApptStart: 11-08-2023 End: 39-16-0576imizkkyvkoONJEASelect Medical Specialty [facility] Northtart: 11-05-2023 End: 18-90-5840nmtsftikwsICBASSelect Medical [facility] Northtart: 10-31-2023 End: 49-97-3411Nawdicza [facility] Medical CenterDacasimiro Gamez PSYD Work Phone: NEUROLOGYComment on above:PTSD (post-traumatic stress disorder); Post-acute 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)AppointmentStart: 36-90-2313Wyb-patient / Non-visitFireland Physician [facility] Work Phone: Start: 10-09-2023 End: 12-35-7005zgcpncrpehRhqcscxnzSelect Medical [facility] Work Phone: Start: 10-09-2023 End: 94-64-6190Ukehjwc encounter procedureCritical Access Hospital Physician [facility] Work Phone: Start: 10-04-2023 End: 59-39-7147womeyipwawLROAH R CHEMALIGreen Cross Hospitaltart: 10-04-2023 End: 22-49-8305Vywaqg outpatient new 60 minutesRhett Baez MD Work Phone: [facility] BolwellComment on above: POTS (postural orthostatic tachycardia syndrome)Start: 56-21-5748OdjhgoUpruNikolay Guzman APRN.CNP Work Phone: NeurologyComment on above:Refill RequestStart: 34-37-1058Voc-patient / Non-visitCritical Access Hospital Physician [facility] Work Phone: Start: 28-25-5422EoblgdPxatNikolay Guzman APRN.CNP Work Phone: NeurologyComment on above:Refill RequestStart: 08-10-2023 End: 44-90-0769Tnyjbagej encounterDawdonald Gamez PSYD Work Phone: NEUROLOGYComment on above:AppointmentPTSD (post- traumatic stress disorder) (Primary Dx); Mixed obsessional thoughts and acts; Post-acute 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)Start: 08-10-2023 End: 89-20-2426Dmjkqazgdxqh consultation with patientDawdonald Gamez PSYD Work Phone: NEUROLOGYStart: 75-02-5940OsujksPwtrNikolay Guzman APRN.CNP Work Phone: NeurologyComment on above:Refill RequestStart: 07-27-2023 End: 82-52-5724Yqkiwplp HealthDawn Noahter PSYD Work Phone: NEUROLOGYComment on above:PTSD (post-traumatic stress disorder) (Primary Dx); Post-acute 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)Start: 07-20-2023 End: 67-49-5133tjstfkiwrlBybpypqqbBlanchard [facility] Health [facility] Work Phone: Start: 07-20-2023 End: 82-83-5539Oinvtgi encounter procedureCritical Access Hospital Physician GroupBellflower Medical Center Work Phone: Start: 06-28-2023 End: 89-43-6940Uatzghds [facility] Hospitaldonald Gamez PSYD Work Phone: NEUROLOGYComment on above:PTSD (post-traumatic stress disorder) (Primary Dx); Mixed obsessional thoughts and actsStart: 96-88-1156Ugp-patient / Non-visit Critical Access Hospital Physician [facility] Work Phone: Start: 67-86-4954YtdobdSkvdJaskaran Guzman APRN.CNP Work Phone: NeurologyComment on above:Refill RequestStart: 40-89-3285Vefgljrgj encounterDacasimiro Gamez PSYD Work Phone: NEUROLOGYComment on above:AppointmentStart: 06-05-2023 End: 38-12-7225Tljeqts encounter procedureBrandan Peguero DO Work Phone: CardiologyComment on above:Post-COVID syndrome (Primary Dx); POTS (postural orthostatic tachycardia syndrome); Chest discomfort; TachycardiaStart: 05-08-2023 End: 96-88-1388thmngauikaBejofiaqfBlanchard Valley Health System Work Phone: Start: 05-08-2023 End: 94-68-3159Oddnrcv encounter procedureCritical Access Hospital Physician GroupBellflower Medical Center Work Phone: Start: 25-24-6805Wgr-patient / Non-visitCritical Access Hospital Physician [facility] Work Phone: Start: 04-03-2023 End: 12-39-4171mljxbonpetRyxylfupfSelect Medical [facility] Work Phone: Start: 04-03-2023 End: 48-76-8766Pkqouuu encounter procedureCritical Access Hospital Physician Group-[facility] Work Phone: Start: 32-32-1992Dqe-patient / Non-visitCritical Access Hospital Physician Group-[facility] Work Phone: Start: 50-32-3827Ewb-patient / Non-visitCritical Access Hospital Physician GroupLifepoint Health Professional [facility] Work Phone: Start: 03-20-2023 End: 20-37-2236Zzurppwl HealthDaw Franco QBE Work Phone: NEUROLOGYComment on above:Post-acute 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) (Primary Dx); PTSD (post-traumatic stress disorder); POTS (postural orthostatic tachycardia syndrome); Mixed obsessional thoughts and acts; Persistent depressive disorder with anxious distress, currently severe AppointmentStart: 03-01-2023 End: 38-90-6478lvddjclgumEahn Kerrie Other [employer] Other Start: 81-96-0651Jhkdbamsi encounterSeth RugglesG [facility] Atlantatart: 56-59-5737Xvkmmguec encounterDacasimiro Franco RODRIGUEZ Work Phone: NEUROLOGYStart: 02-27-2023 End: 76-78-1089zivmkchjhfBmph Kerrie Other [employer] Other Start: 03-09-0806Mqbsugwsw encounterSeth RugglesFPG [facility] Atlantatart: 02-27-2023 End: 84-62-1096Dsdnocg encounter procedureCarteret Health Carechey Physician GroupBellflower Medical Center Work Phone: Start: 02-14-2023 End: 57-50-0087obyvdngknzBlcf Kerrie Other [email or web address] Other Start: 92-66-7798Pcnfnemid encounterSeth KerrieScripps Green Hospitaltart: 02-13-2023 End: 19-21-7462hdxahexgagStoe Kerrie Other [place] [employer] Other Start: 65-24-1209Uswdocara by computer linkSmercy health willard hospital CandelariaHudson River State Hospital Family [facility] Hospitalrt: 24-96-6071Aphgvi outpatient visit 25 minutesAmber MagdalenoVALLEY HOSPITAL [facility] ClydeStart: 02-13-2023 End: 48-87-0353Nuwrkyt encounter procedureFirelands Physician Group-[facility] [place] Work Phone: Start: 02-06-2023 End: 48-93-8650ahdyqiybmiZxxs Kerrie Other nofre[facility] [employer] Other Start: 67-07-3844Hjuydfrdg encounterSeth CandelariaabbyScripps Green Hospitaltart: 01-26-2023 End: 82-04-0618qqnclvvsddZbeq Kerrie Other [facility] [employer] Other Start: 48-37-7200Xjqzvxvka encounterSHCA Florida Englewood HospitalabbyScripps Green Hospitaltart: 01-25-2023 End: 53-89-9554Gsovkvrq HealthDawn Franco [facility] Work Phone: NEUROLOGYComment on above:Post-acute 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) (Primary Dx); PTSD (post-traumatic stress disorder); Persistent depressive disorder with anxious distress, currently severe; POTS (postural orthostatic tachycardia syndrome); Mixed obsessional thoughts and actsStart: 01-23-2023 End: 12-15-6508uhuqjzpmbeBfdf Kerrie Other [email or web address] LLC Other Start: 54-10-1729Rjtwwk outpatient visit 25 minutes Mishacharly SyFPMili Family Medicine [facility] Hospitaltart: 01-23-2023 End: 53-85-9925Fcntsde encounter procedureCritical Access Hospital Physician Group-[facility] Work Phone: Start: 01-18-2023 End: 46-04-7951Dlghzgwg HealthDawn Noahter PSYD Work Phone: NEUROLOGYComment on above:Post-acute 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) (Primary Dx); PTSD (post-traumatic stress disorder); Persistent depressive disorder with anxious distress, currently severe; POTS (postural orthostatic tachycardia syndrome); Mixed obsessional thoughts and actsStart: 93-20-3326Kunrsuxdm encounterDawn Potter PSYD Work Phone: NEUROLOGYComment on above:AppointmentStart: 01-02-2023 Telephone encounterDawdonald Potter PSYD Work Phone: NEUROLOGYComment on above:Patient UpdateStart: 12-29-2022 End: 65-32-9971jikvxffluvDcyc Kerrie Other [employer] Other Start: 11-88-2476Otjwyqyuq encounterSeth CandelariaglesFPG Family [facility] Hospitaltart: 12-28-2022 End: 48-97-9788grvylbvdtjLkaz Kerrie Other [email or web address] Other Start: 09-64-5360Jtbzgw outpatient visit 40 minutes Mishacharly SyFPMili Family [facility] Hospitaltart: 80-64-8775Aagtrctvj encounterSeth RugglesFPG Family Medicine [facility] Hospitaltart: 12-26-2022 End: 79-09-9412Uhinpbcp HealthDawn Potter PSYD Work Phone: NEUROLOGYComment on above:PTSD (post-traumatic stress disorder) (Primary Dx); POTS (postural orthostatic tachycardia syndrome); Post-acute 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)Received Outside Medical Records ([facility] )Start: 12-25-2022 End: 46-17-8781Gbswcql encounter procedureJaskaran Guzman APRN.CNP Work Phone: NeurologyComment on above:POTS (postural orthostatic tachycardia syndrome) (Primary Dx)Start: 12-25-2022 End: 07-50-6906diybmmbdvwPwmn Kerrie Other noIsotera [employer] Other Start: 32-89-7739Sfsktkmli encounterSeth [facility] Hospitaltart: 12-22-2022 End: 46-88-4266ionvaajdgoMiaj Kerrie Other [facility] [employer] Other Start: 79-89-6278Rzbvjupuc encounterSeth RugglesVALLEY HOSPITAL Family [facility] Hospitaltart: 12-21-2022 End: 75-08-9585fueojutzsqQxhq Kerrie Other [employer] Other Start: 72-19-9963Xpmoqmqod encounterSeth [facility] Family [facility] Hospitaltart: 12-20-2022 End: 61-13-1361Bxayazwds encounterDacasimiro FLORESCARLY Work Phone: NEUROLOGYComment on above:AppointmentPTSD (post- traumatic stress disorder) (Primary Dx); POTS (postural orthostatic tachycardia syndrome); Post-acute 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)Start: 12-20-2022 End: 80-39-7292Zbbqdottwdek consultation with patientDacasimiro Gamez PSYD Work Phone: [facility]tart: 12-19-2022 End: 19-13-0603elcmzlpajmEihw Kerrie Other [facility] [employer] Other Start: 16-43-7482Ffrlpctce encounterSmichelle SyMili [facility] Atlantatart: 12-18-2022 End: 66-88-8012kgpzmbjfesMxuc Kerrie Other [facility] [employer] Other Start: 56-29-9722Hjavxxaxt encounterSeth CandelariaOchsner Medical Centertart: 97-02-8239Stadkivxx encounterDacasimiro Gamez PSYD Work Phone: NEUROLOGYComment on above:Patient UpdateStart: 12-13-2022 End: 40-59-6084Iyrhrellmgcd consultation with patientJudy Gamez PSYD Work Phone: [facility]Start: 12-13-2022 End: 22-88-6869rmyixktgyoYrkx Potter PSYD Work Phone: NEUROLOGYComment on above:UrgentMixed obsessional thoughts and acts (Primary Dx); PTSD (post-traumatic stress disorder)Office numberStart: 12-39-0667V-mail encounter from caregiverJudy Gamez PSYD Work Phone: [facility]ITALStart: 87-65-7935Vkzrnloab encounter Judydonald Gamez PSYD Work Phone: NEUROLOGYStart: 12-12-2022 End: 28-96-4694evlbiwglitFzfxom Guberinic PT Work Phone: [facility] Physical TherapyComment on above:Activity intolerance (Primary Dx); POTS (postural orthostatic tachycardia syndrome); Long COVID; Chronic fatigue syndrome; Impaired functional mobility, balance, gait, and enduranceStart: 12-11-2022 End: 50-93-2030ggncvdxtubBlgc Kerrie Other [facility] [employer] Other Start: 34-94-0618Klwmwbwfg encounterSmercy health willard hospital CandelariaHudson River [facility] Hospital Family [facility] Hospitaltart: 12-06-2022 End: 92-36-1389Qwzmhjlm Mark AnthonyDacasimiro Gamez PSYD Work Phone: NEUROLOGYComment on above:Mixed obsessional thoughts and acts (Primary Dx); PTSD (post-traumatic stress disorder)Follow upAppointmentStart: 12-04-2022 End: 68-59-9677gkrfllzywzFlltqw Lovjamaal PT Work Phone: [facility] Physical TherapyComment on above:Activity intolerance (Primary Dx); POTS (postural orthostatic tachycardia syndrome); Long COVID; Chronic fatigue syndrome; Impaired functional mobility, balance, gait, and enduranceStart: 12-01-2022 End: 71-04-2646eqcvmsypvpFvel Kerrie Other noIs[employer]era [employer] Other Start: 12-01-2022 End: 75-30-1193Kihgotcco encounterSmercy health willard hospital CandelariaBear Lake Memorial Hospitalomment on above:Insurance AuthorizationStart: 12-01-2022 End: 51-58-0563Xmxktae encounter Robbin Arthur MD Work Phone: CardiologyComment on above:Abnormal EKG (Primary Dx); SOB (shortness of breath); Chest pain, unspecified typeStart: 11-27-2022 End: 94-02-9354rnphmmrvtwSpdp Ruggles Other [employer] Other Start: 29-50-7292Bjwzvwfwq encounterSmercy health willard hospital CandelariaabbyScripps Green Hospitaltart: 11-26-2022 End: 90-19-6167qwzdrnnaadUfcdd Keller Other [facility] [employer] Other Start: 50-12-1940Bbejiz outpatient visit 25 minutes Edie [facility] Dawson[address] RoadStart: 99-21-4209Iunnuzpel encounterYoanna Whitten PT Work Phone: [facility] Physical TherapyComment on above:AppointmentStart: 11-21-2022 End: 32-05-8673mpbcrnsvdeWvto Ruggles Other Nort [employer] Other Start: 73-15-3050Vksmydyou encounterSmercy health willard hospital CandelariaSt. Clare's Hospital Medicine Norcentral new york psychiatric centerkStart: 69-52-2744Xqcwmi Calstephanyleona Peguero DO Work Phone: CardiologyComment on above:POTS (postural orthostatic tachycardia syndrome) (Primary Dx)Start: 37-11-6013Gbavtd Dipak Guzman APRN.CNP Work Phone: NeurologyComment on above:Nonspecific abnormal electrocardiogram (ECG) (EKG) (Primary Dx); Chest discomfort; TachycardiaStart: 10-25-2022 End: 38-53-6564Iuwrnsw encounter procedureJudy Gamez PSYD Work Phone: NEUROLOGYComment on above:APPOINTMENT CANCELLED (Primary Dx)Start: 10-25-2022 End: 04-42-4818Aakprjmbwsax consultation with Ernestinadonald Franco RODRIGUEZ Work Phone: [facility]ITALStart: 09-18-0521frqzieyuvbGwyniv G Wilson DO Work Phone: [facility] MAINStart: 30-24-0190Dngrgk-up encounterAlvin Huddleston DO Work Phone: NeurologyComment on above:Follow upStart: 10-19-2022 End: 67-98-8061gqfpgtloheMoqmlejwb Bradley MD Work Phone: [facility] MAINStart: 02-36-5602Efwjau-up encounterHaleigh So MD Work Phone: Functional MedicineComment on above:Follow upStart: 80-63-6117Bpkpgc outpatient visit 25 minutesSet KerrieVALLEY HOSPITAL Family Medicine NorwalkStart: 10-18-2022 End: 47-35-3651Dxkcgrfy HealthDawdonald FLORESYD Work Phone: NEUROLOGYComment on above:Mixed obsessional thoughts and acts (Primary Dx); PTSD (post-traumatic stress disorder)letterStart: 37-15-4255uleutpfyieAtsfzqduo Bradley MD Work Phone: [facility] MAINStart: 03-22-0821Jofmxo encounterElironnie So MD Work Phone: Functional MedicineComment on above:LetterStart: 07-04-4091Usmzmajup encounterDacasimiro Gamez MARKCARLY Work Phone: NEUROLOGYComment on above:AppointmentStart: 10-13-2022 End: 33-00-3963Efflpcy encounter Miguelito De Luna MD Work Phone: Integrative MedicineComment on above:Appointment canceled by hospital (Primary Dx)Start: 10-13-2022 End: 27-47-9145Kosmiwrjqnnb consultation with Ramiro De Luna MD Work Phone: cCF [facility]OSPITALtart: 87-22-3863Mroldt Only Jaskaran Guzman APRN.CAKE MAKER Work Phone: NeurologyStart: 34-44-4185Ewjmha outpatient visit 15 minutesSetOrlando Health [facility] Family Medicine [facility] HospitalkStart: 11-27-2102DesbryRpynqf W Bales MD Work Phone: [facility] MedComment on above:Refill Request Start: 73-50-9286Huyskomzi encounterJaskaran Guzman APRN.CAKE MAKER Work Phone: NeurologyStart: 10-10-2022 End: 17-52-3066rpgdclxugiZuomr Umeda MD Work Phone: Integrative and Lifestyle MedicineComment on above: POTS (postural orthostatic tachycardia syndrome) (Primary Dx); Dysautonomia (HCC); Chronic fatigue, unspecified; Brain fog; SOB (shortness of breath); Tachycardia; Post-COVID syndromeStart: 10-10-2022 End: 41-12-2782Tnowfbbnuyox consultation with Yessi Forte MD Work Phone: WILLOUGHBYStart: 10-09-2022 End: 40-00-0715Ybyrdpqzpvma consultation with Palak Sandoval MD Work Phone: [facility] MAINStart: 10-09-2022 End: 43-38-1599oeqymdgfvlOcyp Cherian MD Work Phone: NeurologyComment on above:POTS (postural orthostatic tachycardia syndrome) (Primary Dx); Long COVIDStart: 30-64-9377Amasae-up encounterElironnie So MD Work Phone: [facility] MedicineComment on above:follow upStart: 10-05-2022 End: 79-30-0802Wfiedtei HealthDawdonald Gamez PSYD Work Phone: NEUROLOGYComment on above:Mixed obsessional thoughts and acts (Primary Dx); PTSD (post-traumatic stress disorder)Start: 97-77-5230Fmkta Ashli Guzman APRN.CNP Work Phone: NeurologyStart: 09-29-2022 End: 97-00-4614iumdzmoeogPbpm Interviewstreet Other rt [employer] Other Start: 78-66-2031Nnqqwnkow encounterSmichelle SySaint Vincent Hospital Medicine NorwalkStart: 75-73-4559Xrcqcqhwz encounterDawdonald FLORESYD Work Phone: NEUROLOGYComment on above:AppointmentStart: 09-27-2022 End: 91-43-2795aznvfysdwxTR Melina F Alexander Work Phone: [facility] Work Phone: Comment on above:RecieptStart: 10-42-7773Cbbaduqrg encounterDawn Franco RODRIGUEZ Work Phone: NEUROLOGYStart: 09-27-2022 End: 37-52-1831Daquwgcr ReferredDO Yolanda Staples Work Phone: [facility] [place] Work Phone: Start: 09-25-2022 End: 15-27-4678eowoabcgzuHtdk Kerrie Other [facility] [employer] Other Start: 66-82-9543Cguxuhwnt encounterSeth [facility] Hospitaltart: 09-22-2022 End: 95-97-4044kqdeagmbhjJgie Kerrie Other [facility] [employer] Other Start: 97-87-1975Gqyfpstsd encounterSeth [facility] Hospitaltart: 09-21-2022 End: 49-87-0611Xdscvzlp ReferredDO Yolanda Staples Work Phone: [facility] [place] Work Phone: Start: 09-21-2022 End: 80-96-8052wypzaqsdieXL Yolanda Staples Work Phone: [facility] Work Phone: Comment on above:full recordsStart: 67-96-2970Dkxyzy outpatient visit 40 minutesSetOpelousas General Hospitaltart: 09-18-2022 End: 74-08-5833Abqwebkhcqqt consultation with patientDacasimiro Gamez PSYD Work Phone: [facility] HOSPITALStart: 09-18-2022 End: 61-48-9772ngawdflhuhAxij Potter PSYD Work Phone: [place] [employer] Other Comment on above:PTSD (post-traumatic stress disorder) (Primary Dx); Obsessive-compulsive disorder, unspecified type; POTS (postural orthostatic tachycardia syndrome); Post-acute 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)Start: 42-15-9400Lmcldwqej Lilly [facility] HospitalkStart: 32-11-3717WxmmsqGrnlqd Saper MD Work Phone: [facility] Integrative MedComment on above:Refill Request Patient Question.Start: 82-10-4695Uqahtalbn encounterKykanwal Guzman APRN.CNP Work Phone: NeurologyComment on above:Patient UpdateAppointment Start: 09-13-2022 End: 35-43-5935Tfpfrbncrq and management of inpatientDO Yolanda Staples Work Phone: [phone] Work Phone: Start: 67-87-8392zkqzuzpxopRtvk Cherian MD Work Phone: NeurologyComment on above:hearing decisionHelpStart: 09-13-2022 End: 74-86-3657Lgvnvlmwk encounterKykanwal Guzman APRN.CNP Work Phone: NeurologyComment on above:Patient UpdatePTSD (post- traumatic stress disorder) (Primary Dx); Obsessive-compulsive disorder, unspecified type; POTS (postural orthostatic tachycardia syndrome); Post-acute 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)Start: 09-13-2022 End: 26-76-4772Crbwqsqzlxnd consultation with Amanda Gamez PSYD Work Phone: [facility]Start: 31-53-8170jivujkumdaBptn Potter PSYD Work Phone: NEUROLOGYComment on above:ApptStart: 09-08-2022 ambulatoryJaskaran Guzman APRN.CNP Work Phone: NeurologyComment on above:QuestionareStart: 09-07-2022 RefillKykanwal Guzman APRN.CNP Work Phone: NeurologyComment on above:Refill RequestStart: 51-13-2081tiltbpgdtbHtpfpb G Wilson DO Work Phone: NeurologyComment on above:MEDCOStart: 11-92-6371ZEZYBQ - [facility] ProviderMedical RecordsComment on above:Medication Refill Approved Start: 08-30-2022 End: 30-61-2357Qxgomxcv HealthDawdonald Gamez PSYD Work Phone: NEUROLOGYComment on above:PTSD (post-traumatic stress disorder) (Primary Dx); Obsessive-compulsive disorder, unspecified type; POTS (postural orthostatic tachycardia syndrome); Post-acute 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)Start: 55-42-4526zjhyszufceZskm Cherian MD Work Phone: NeurologyComment on above:HEARING SEPTEMBER 12Start: 54-89-3301Ijnslqswv encounterNejerad Sandoval MD Work Phone: NeurologyComment on above:Forms (Maximum Medical Improvement Questionnaire)Start: 33-48-1133LhxrdcXgdwlpedro Laureano APRN.CNP Work Phone: NeurologyComment on above:Refill RequestStart: 60-55-0602rznlnvakxjMncrqqcyc Bradley MD Work Phone: ccf [facility] MAINStart: 30-94-8038Kipxsu-up encounterHaleigh So MD Work Phone: Functional MedicineComment on above:follow upStart: 08-03-2022 End: 66-41-1516ybzowhegenJhscfpouy Bradley MD Work Phone: Functional MedicineComment on above:Long COVID (Primary Dx); POTS (postural orthostatic tachycardia syndrome); SOBOE (shortness of breath on exertion)Start: 08-03-2022 End: 47-53-4070Zgivabncfjir consultation with Valerie So MD Work Phone: CCT [facility] MAINStart: 08-02-2022 End: 21-21-8013Sxivgyqh HealthJudy Gamez PSYD Work Phone: NEUROLOGYComment on above:PTSD (post-traumatic stress disorder) (Primary Dx)Start: 01-35-7187Gcjkty outpatient visit 15 minutesAmber MagdalenoVALLEY [facility] [address] RoadStart: 07-27-2022 End: 23-91-6939dndmzbcdoxZjzb Potter PSYD Work Phone: [place] [employer] Other Comment on above:Obsessive-compulsive disorder, unspecified type (Primary Dx); PTSD (post-traumatic stress disorder); POTS (postural orthostatic tachycardia syndrome); Post-acute 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)Start: 07-27-2022 End: 11-81-9159Qyrbyfguzwsv consultation with Amanda Gamez PSYD Work Phone: [facility]Start: 78-96-5883Hlaotormj encounter Jimenez Sandoval MD Work Phone: NeurologyComment on above:New Duplex Trimmer infoStart: 53-85-6759Buvuqetiy encounterJimenez Sandoval MD Work Phone: NeurologyComment on above:OrdersStart: 07-13-2022 End: 93-49-3203Oyqphbyr Radha Gamez PSYD Work Phone: NEUROLOGYComment on above:Obsessive-compulsive disorder, unspecified type (Primary Dx); PTSD (post-traumatic stress disorder); POTS (postural orthostatic tachycardia syndrome); Post-acute 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)Start: 84-98-9901Fptuivrne encounterDacasimiro Gamez PSYD Work Phone: NEUROLOGYComment on above:Patient UpdateStart: 07-11-2022 End: 78-69-8558klwklcqxrkEbhfrpn T Crowley RD Work Phone: Functional MedicineComment on above:Long COVID (Primary Dx); Orthostatic lightheadedness; Tachycardia; Obesity, Class I, BMI 30-34.9; POTS (postural orthostatic tachycardia syndrome); Dietary counseling and surveillanceObsessive-compulsive disorder, unspecified type (Primary Dx); PTSD (post-traumatic stress disorder); POTS (postural orthostatic tachycardia syndrome); Post-acute 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)Start: 07-11-2022 End: 38-05-7411Zpebmpsuamsg consultation with Magnus Ayon RD Work Phone: ccf [facility] MAINStart: 72-76-0689Oszsamecv encounterSeth [facility] Hospitaltart: 07-06-2022 End: 16-57-1214Rpzfvjro HealthDawdonald Gamez PSYD Work Phone: NEUROLOGYComment on above:PTSD (post-traumatic stress disorder) (Primary Dx); Obsessive-compulsive disorder, unspecified type; Post-acute 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); POTS (postural orthostatic tachycardia syndrome)Start: 59-36-0579clqmgfvdja Alvin Huddleston DO Work Phone: NeurologyComment on above:JFLMTPCMVE85Apenq: 07-54-3705J-mail encounter from caregiverJimenez Sandoval MD Work Phone: ccf [facility] MAINStart: 06-26-2022 End: 15-93-0810lvlxvweymySjkr Cherian MD Work Phone: NeurologyComment on above:Long COVID (Primary Dx); POTS (postural orthostatic tachycardia syndrome); Cervicocranial syndrome; Sprain of ligaments of thoracic spine, initial encounterStart: 06-26-2022 End: 69-13-1084Ezhdeeokqrnz consultation with Palak Sandoval MD Work Phone: ccf [facility] MAINStart: 03-72-6600odlewrcmui Alvin Huddleston DO Work Phone: NeurologyComment on above:MEDCOStart: 06-19-2022 End: 96-35-0051ZNZA visit, [facility] Medicine Comment on above:Established PatientStart: 06-19-2022 End: 79-77-3507hnyxfrnxkvAmkr J Modlo MD Work Phone: ccf [facility] MAINComment on above:POTS (postural orthostatic tachycardia syndrome); Orthostatic lightheadedness; TachycardiaAfter Visit 06/19/22Start: 06-57-3642K-mail encounter from caregiver Dago Guzman MD Work Phone: ccf [facility] FHCStart: 83-54-7122Pqoqwhd encounter procedureDago Guzman MD Work Phone: Functional MedicineComment on above:AppointmentStart: 06-19-2022 End: 63-31-6519Ykwvwyrioxtx consultation with patientDago Guzman MD Work Phone: ccf [facility] FHCStart: 06-15-2022 End: 78-13-3168Rggjhhau HealthDaPlaylore Work Phone: NEUROLOGYComment on above:PTSD (post-traumatic stress disorder) (Primary Dx); POTS (postural orthostatic tachycardia syndrome); Obsessive-compulsive disorder, unspecified type; Post-acute 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)Start: 06-13-2022 End: 57-43-5605Fzkmojwh HealthDaYardbarker Networkn [employer] PSeshtery Work Phone: NEUROLOGYComment on above:PTSD (post-traumatic stress disorder) (Primary Dx); Obsessive-compulsive disorder, unspecified type; Post-acute 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); POTS (postural orthostatic tachycardia syndrome)Start: 19-84-2615Yoogvs Only Alvin Huddleston DO Work Phone: NeurologyComment on above:POTS (postural orthostatic tachycardia syndrome) (Primary Dx)Start: 78-56-4516ndynhaiwjhQcuoma G Wilson DO Work Phone: NeurologyComment on above:updateStart: 06-02-2022 End: 68-51-4053eakwsclvgnHuvjix L Jaeger RD Work Phone: Functional MedicineComment on above:Long COVID (Primary Dx); POTS (postural orthostatic tachycardia syndrome); Dietary counseling and surveillanceMEDCOStart: 06-02-2022 End: 61-41-3190Fwoaqgxwvkio consultation with Josiane Gardner RD Work Phone: ccf [facility] MAINStart: 34-51-1946Npcpqysjq encounterDawdonald ZamoraCorrigan Work Phone: NEUROLOGYComment on above:AppointmentStart: 05-30-2022 ambulatoryDago Guzman MD Work Phone: ccf [facility] MAINStart: 23-61-8538Keirctxvu therapyDago Guzman MD Work Phone: Functional MedicineComment on above:*send to nutrition please*Start: 05-30-2022 End: 04-57-1446Svbxvacbg encounterDawn Franco RODRIGUEZ Work Phone: NEUROLOGYComment on above:AppointmentPTSD (post- traumatic stress disorder) (Primary Dx); Obsessive-compulsive disorder, unspecified type; Post-acute 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)Start: 05-30-2022 End: 22-67-7450Lfhikgmjmwwy consultation with patientJudy Gamez PSYD Work Phone: [facility]Start: 05-25-2022 End: 93-93-1126Crnniwbx HealthDawn Franco MICHAEL Work Phone: NEUROLOGYComment on above:Long COVID (Primary Dx); Obsessive-compulsive disorder, unspecified type; PTSD (post-traumatic stress disorder); Post-acute 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); POTS (postural orthostatic tachycardia syndrome)Start: 05-24-2022 End: 71-91-5472Mgkjltt encounter Titi Lanier MD Work Phone: NeurologyComment on above:Psychophysiologic insomnia (Primary Dx)Start: 77-68-2972gfrovldkjqWrbyrr Sieke MD Work Phone: [facility] [place] FHCStart: 05-22-2022 End: 71-37-7562Cktfqd-up encounterLiliane Enriquez MD Work Phone: PsychiatryComment on above:Follow upPTSD (post- traumatic stress disorder) (Primary Dx)Start: 05-22-2022 End: 80-63-5559Dphjccqcxwug consultation with patientLiliane Enriquez MD Work Phone: ccf [place] FHCStart: 70-84-5685iwucwxejetRrstrn Mili Huddleston Work Phone: NeurologyComment on above:UpdateStart: 05-10-2022 Telephone encounterDawdonald Gamez PSYD Work Phone: NEUROLOGYComment on above:AppointmentStart: 05-08-2022 End: 01-38-8098Ytkqwmpccupx consultation with Palak Sandoval MD Work Phone: ccf [facility] MAINStart: 05-08-2022 End: 84-66-4882doajphndryRokf Cherian MD Work Phone: NeurologyComment on above:Long COVID (Primary Dx); POTS (postural orthostatic tachycardia syndrome); Cervicocranial syndrome; Sprain of ligaments of thoracic spine, initial encountermodafanilStart: 56-23-5505S-mail encounter from caregiverJimenez Sandoval MD Work Phone: ccf [facility] MAINStart: 64-30-7731wlrvbtzinz Jaskaran Guzman APRN.CNP Work Phone: cCF [facility] MAINStart: 26-90-5165Pfhomh-up encounterJaskaran Guzman APRN.CNP Work Phone: NeurologyComment on above:follow upStart: 05-06-2022 End: 17-08-7292Xomslhve ReferredDO Misha Sy Work Phone: [facility] [place] Work Phone: Start: 05-06-2022 End: 04-56-2432egsxfpmidjJQ Misha Sy Work Phone: [facility] Work Phone: Start: 48-53-9147Vprobe outpatient visit 15 minutes Armando GrahamB[facility] [address] RoadStart: 05-03-2022 End: 48-03-5927hnxrksaioeYwwrerdUNC [facility] MAIN Comment on above:QuestionApptStart: 51-71-0069Uiroomdhq encounterJimenez Sandoval MD Work Phone: NeurologyComment on above:Forms (C9 denial form)Start: 05-03-2022 End: 86-22-8047XJTR visit, [facility] EDFunctional Medicine Comment on above:Established PatientStart: 05-02-2022 End: 75-29-3275Yrqecvsqbajw consultation with patientFazaljanessa Huddleston DO Work Phone: ccf [facility] MAINStart: 05-02-2022 End: 82-04-7457mnwelyjyhqKceohi G Wilson DO Work Phone: NeurologyComment on above:POTS (postural orthostatic tachycardia syndrome) (Primary Dx)Start: 16-26-3323Oycctb encounterAlvin Huddleston DO Work Phone: NeurologyComment on above:Jaskaran taveras letterStart: 95-73-3983Ctjoodopa encounterParish Lanier MD Work Phone: NeurologyComment on above:Appointment (LVM on pt phone re: scheduling F/U-Report first available w/ Dr. Lanier per Med Advice msg from Pneumatic System Conveyor Operator. Pt may contact Belinda scheduling at opt #1 or SIA scheduling at . Dates are June 01 or June 4 @4:15P In-person)Start: 00-28-0924wegvrcnkwqHiqda Kazaglis MD Work Phone: [facility] MAINStart: 38-87-4073Zjaavw-up encounterSherwin Anne MD Work Phone: NeurologyComment on above:Follow upStart: 04-25-2022 End: 44-45-4235Muhwnjvevkbn consultation with Oneyda Huddleston DO Work Phone: [facility] MAINStart: 04-25-2022 End: 17-24-8608wkccanycgxHdlay A Pillai MD Work Phone: NeurologyComment on above:C-9POTS (postural orthostatic tachycardia syndrome) (Primary Dx)Start: 68-27-3603Gidqj abstracting Irma Garsia RNNeurologyStart: 84-22-5677rdbsixvoghGryz Shannon APRN.CNP Work Phone: [facility] MAINStart: 74-05-0216Uhmliv-up encounterJaskaran Guzman APRN.CNP Work Phone: NeurologyComment on above:MED follow upStart: 33-40-5332Q-mail encounter from caregiverCcf ProviderK[facility] Start: 81-45-9596Gctycty encounter procedureBaptist Health De[facility] ProviderSelect Specialty Hospital - Beech GroveComment on above:Consult to Outpatient TherpayStart: 83-03-0990Cjkacohtk encounterParish Lanier MD Work Phone: NeurologyComment on above:OrdersStart: 04-20-2022 End: 62-68-7067gluxxjtyyiAwswqhjAtrium Health [facility] MAINStart: 04-20-2022 End: 54-05-4222IUBJ visit new patientCl[facility] EDFunctional Medicine Comment on above:New PatientStart: 14-30-1541vegofhxicqPetqv Kazaglis MD Work Phone: NeurologyComment on above:Sleep studyStart: 04-18-2022 End: 95-78-4269mlzhvscbwkImajpf Mili Flaquito BROOKS Work Phone: NeurologyComment on above:POTS (postural orthostatic tachycardia syndrome) (Primary Dx)Start: 04-18-2022 End: 43-15-0385Xzxvgytjovvp consultation with patientAlvin Huddleston DO Work Phone: ccf [facility] MAINStart: 04-13-2022 End: 54-20-0857Mesvrwky HealthDawdonald Gamez PSYD Work Phone: NEUROLOGYComment on above:PTSD (post-traumatic stress disorder) (Primary Dx); Post-acute 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); POTS (postural orthostatic tachycardia syndrome)Start: 04-12-2022 End: 42-98-4380Ybuskwpe HealthDawdonald Gamez PSYD Work Phone: NEUROLOGYComment on above:PTSD (post-traumatic stress disorder) (Primary Dx); Mixed obsessional thoughts and acts; Post-acute 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)Start: 02-52-6086Isbenegmp encounterJaskaran Guzman APRN.CNP Work Phone: NeurologyComment on above:Received Outside Medical Records ([employer] )Start: 04-10-2022 End: 91-31-7883qdrdguxnufMmtb Shannon APRN.CNP Work Phone: NeurologyComment on above:UpdateStart: 04-10-2022 Telephone encounterDacasimiro FLORESCARLY Work Phone: NEUROLOGYComment on above:Patient UpdateStart: 04-07-2022 End: 34-62-8097jzbzsqrnqnEltb Ruggles Other [place] [employer] Other Start: 85-47-5026Gmxvkztth encounterSeth KerrieUAT Holdingsrt: 04-06-2022 End: 33-34-7137Mboyhbku HealthDawdonald Gamez PSYD Work Phone: NEUROLOGYComment on above:Mixed obsessional thoughts and acts (Primary Dx); POTS (postural orthostatic tachycardia syndrome); PTSD (post-traumatic stress disorder); Post-acute 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)Start: 04-05-2022 End: 86-39-2188dttksmeybpAdes Cherian MD Work Phone: NeurologyComment on above:Long COVID (Primary Dx); POTS (postural orthostatic tachycardia syndrome); Cervicocranial syndrome; Sprain of ligaments of thoracic spine, initial encounterStart: 04-05-2022 End: 55-80-2712Etqubrusddme consultation with Palak Sandoval MD Work Phone: [facility] [place]WTONWOODStart: 03-31-2022 End: 73-80-9972qqnzirxgreMvyv Kerrie Other [facility] [employer] Other Start: 80-64-8735Pcwxlbfgf encounterSeth [facility] [employer] CoStart: 03-30-2022 End: 86-55-2344vdtigtxgvgHX COREY FAZIO .[facility] [employer] Other Start: 20-50-9334Ckgjroiob encounterSeth [facility] psychiatric centerkStart: 03-28-2022 End: 88-58-5850Mautecmh HealthDawdonald Franco RODRIGUEZ Work Phone: NEUROLOGYComment on above:Mixed obsessional thoughts and acts (Primary Dx); PTSD (post-traumatic stress disorder)Start: 58-03-6298xllvthxkbxUxaj Shannon APRN.CNP Work Phone: NeurologyComment on above:HearingStart: 03-24-2022 Telephone encounterRobert Mili Huddleston DO Work Phone: NeurologyComment on above:medcoStart: 03-23-2022 End: 66-79-7010NnxumdWccd Cherian MD Work Phone: NeurologyComment on above:Refill RequestStart: 02-08-0878Vjknafena encounterSeth [facility] psychiatric centerkStart: 03-22-2022 End: 08-80-9500lhbomofmuqLznfwefb A Karp RD Work Phone: Nutrition TherapyComment on above:Obesity, Class I, BMI 30-34.9 (Primary Dx); POTS (postural orthostatic tachycardia syndrome); Dietary counselingRefillStart: 89-32-2649Smzsfbenk encounterDawdonald Franco RODRIGUEZ Work Phone: NEUROLOGYComment on above:AppointmentStart: 03-22-2022 End: 23-82-8019Ladksvwlhcfg consultation with Aydin Doanvignesh ASKEW Work Phone: c[facility] FHCStart: 19-88-1474evpbjxwskjWztcyk G Flaquito DO Work Phone: NeurologyComment on above:MEDCOStart: 03-20-2022 End: 42-73-2487Ryslhbwz HealthDaYardbarker Networkdonald Gamez PSYD Work Phone: NEUROLOGYComment on above:Mixed obsessional thoughts and acts (Primary Dx); PTSD (post-traumatic stress disorder)Start: 66-76-8234tynotvceffXfynnf G Flaquito DO Work Phone: NeurologyComment on above:MEDCOStart: 03-17-2022 Follow-up encounterRobert G Flaquito DO Work Phone: NeurologyComment on above:Follow upStart: 03-16-2022 ambulatoryKyle Megan UTILITY SYSTEM REPAIRER.CAKE MAKER Work Phone: NeurologyComment on above:Hearing todayStart: 51-98-4862zpjlzlyfhbOcgl Megan UTILITY SYSTEM REPAIRER.WANDER Work Phone: c[facility] MAINStart: 31-29-6239Bfflof-up encounterKyle Megan UTILITY SYSTEM REPAIRER.WANDER Work Phone: NeurologyComment on above:Follow upStart: 03-13-2022 End: 03-62-7272Ihjjgtbi HealthDawdonald Gamez PSYD Work Phone: NEUROLOGYComment on above:PTSD (post-traumatic stress disorder) (Primary Dx); Mixed obsessional thoughts and actsAppointmentStart: 53-88-9148qwwuilztwyHopcRico Guzman APRN.CAKE MAKER Work Phone: [facility] MAINStart: 07-74-7621Lxxzfw-up encounterJaskaran Guzman APRN.CAKE MAKER Work Phone: NeurologyComment on above:Follow upStart: 03-09-2022 John Anne MD Work Phone: NeurologyComment on above:c-9Retro c-9Start: 92-18-1645Zvopocdyy encounterParish Lanier MD Work Phone: NeurologyComment on above:OrdersStart: 03-08-2022 End: 72-70-4978ochwnfjbxsEqewRico Guzman APRN.CAKE MAKER Work Phone: NeurologyComment on above:POTS (postural orthostatic tachycardia syndrome) (Primary Dx); Less-JMGKQ-35 syndromeStart: 03-08-2022 End: 28-49-3985Udzwhwbhkwue consultation with Vern Guzman APRN.CAKE MAKER Work Phone: [facility] MAINStart: 83-87-3197rwjnufovwm Sherwin Anne MD Work Phone: NeurologyComment on above:Retro C-9Start: 03-07-2022 Telephone encounterWilfredo Nichols MD Work Phone: Pulmonary MedicineComment on above:Patient Question Start: 42-02-8839omeowetrjsHdqpyJuhi Anne MD Work Phone: NeurologyComment on above:Retro C-9Start: 03-05-2022 ambulatoryJimenez Sandoval MD Work Phone: NeurologyComment on above:Thoracic PTStart: 03-05-2022 E-mail encounter from caregiverJimenez Sandoval MD Work Phone: [facility] MAINStart: 02-28-2022 End: 71-45-1987Nwejlqv encounter procedureJimenez Sandoval MD Work Phone: NeurologyComment on above:Vertigo, central origin (Primary Dx); Cervicocranial syndrome; POTS (postural orthostatic tachycardia syndrome); Sprain of ligaments of thoracic spine, initial encounterStart: 02-27-2022 End: 71-70-5762vfnugtawhqXukf Interviewstreet Other [place] [employer] Other Start: 21-55-2162Lvcoqepun encounterSherwin Anne MD Work Phone: NeurologyComment on above:Patient UpdateStart: 91-35-5970hysexbvwmqBjhw Shannon UTILITY SYSTEM REPAIRERNITHYA Work Phone: [phone] on above:HearingStart: 02-24-2022 Follow-up encounterKyle Megna ANDERSONNARMIDA Work Phone: [phone] on above:Follow upStart: 02-22-2022 ambulatoryKyle Megan UTILITY SYSTEM REPAIRER.WANDER Work Phone: [facility] MAINStart: 63-06-5997Wjmbgl-up encounterKyle Megan UTILITY SYSTEM REPAIRERARMIDA Work Phone: [phone] on above:follow upStart: 02-21-2022 ambulatoryRobert G Flaquito DO Work Phone: NeurologyComment on above:MEDCOStart: 02-21-2022 Telephone encounterRobert G Flaquito DO Work Phone: NeurologyComment on above:MEDCOStart: 02-17-2022 ambulatoryRobert G Flaquito DO Work Phone: NeurologyComment on above:FormsStart: 02-16-2022 Telephone encounterJimenez Sandoval MD Work Phone: NeurologyComment on above:Forms (Cas Darby letter request)Start: 02-15-2022 End: 31-84-8516Rbksucsvx encounterDacasimiro Gamez PSYD Work Phone: NEUROLOGYComment on above:AppointmentPTSD (post- traumatic stress disorder) (Primary Dx); Mixed obsessional thoughts and acts; Post-acute 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)Start: 02-15-2022 End: 06-03-5373Xxlvmtypjqzr consultation with jose luisJudy Gamez PSYD Work Phone: [facility]Start: 50-14-2918natdmupchcKkdzRico Guzman APRN.CNP Work Phone: NeurologyComment on above:BenefitsStart: 02-10-2022 ambulatoryLokaylah Anne MD Work Phone: NeurologyComment on above:FormStart: 02-09-2022 ambulatoryJaskaran Guzman APRN.CNP Work Phone: NeurologyComment on above:BenefitsStart: 02-07-2022 End: 29-19-7480xahqoxjyhsIrhg Ruggles Other [employer] Other Start: 15-80-7566Gfmonysqa encounterSeth CandelariaMorgan Stanley Children's HospitalMili [facility] Atlantatart: 02-01-2022 End: 11-12-1066Czlklhs encounter Kevin Ward PSYD Work Phone: NeurologyComment on above:APPOINTMENT CANCELLED (Primary Dx)Start: 02-01-2022 End: 56-70-7410Nxwrlmlmbfpl consultation with jose luisQueta Ed RODRIGUEZ Work Phone: [facility] MAINStart: 02-01-2022 End: 25-02-6415imecdlqndgWI MISHA SYIsotera [employer] Other Start: 48-67-2067Xaiomevyq encounterSeth KerrieVALLEY HOSPITAL Family [facility] psychiatric centerkStart: 62-04-2006xarowvznxuVexdRico Guzman APRN.CNP Work Phone: NeurologyComment on above:FormStart: 01-26-2022 End: 68-30-1470Oqnzbmxk HealthDawn Franco MICHAEL Work Phone: NEUROLOGYComment on above:PTSD (post-traumatic stress disorder) (Primary Dx); Mixed obsessional thoughts and acts; Post-acute 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)Start: 01-25-2022 End: 42-04-5212gjjyjyaoipGvzedjqz A Karp RD Work Phone: Nutrition TherapyComment on above:Obesity, Class I, BMI 30-34.9 (Primary Dx); Dietary counselingStart: 01-25-2022 End: 45-44-8889Vfglwrfosxvf consultation with patientKeyshaiman Rodriguez Sil ASKEW Work Phone: c [facility] FHCStart: 01-24-2022 End: 68-34-5286Fscjyox encounter procedureAlvin Ng MD Work Phone: [facility] MedComment on above:Long COVID (Primary Dx); POTS (postural orthostatic tachycardia syndrome)Start: 01-18-2022 End: 06-06-1335Jhfrtpcvjibn consultation with Almaz Perfectoabida RODRIGUEZ Work Phone: [facility] MAINStart: 01-18-2022 End: 89-30-7807cngecrhzgdVdhaRico Guzman APRN.CNP Work Phone: NeurologyComment on above:formsPTSD (post-traumatic stress disorder) (Primary Dx); Generalized anxiety disorder; Adjustment disorder with depressed mood; POTS (postural orthostatic tachycardia syndrome); Post-acute 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)Start: 78-08-9218eekklmthfzPssy Shannon APRN.CNP Work Phone: NeurologyComment on above:testingStart: 01-17-2022 Telephone encounterDawdonald Gamez PSYD Work Phone: NEUROLOGYComment on above:AppointmentStart: 01-16-2022 Orders OnlyJaskaran Guzman APRN.WANDER Work Phone: NeurologyComment on above:POTS (postural orthostatic tachycardia syndrome) (Primary Dx)TestingStart: 47-46-7729btrrwaikxnRmem Shannon UTILITY SYSTEM REPAIRER.CAKE MAKER Work Phone: NeurologyComment on above:MEDCOStart: 01-04-2022 End: 03-81-6639syadannmfgCozh Hayburn PSYD Work Phone: NeurologyComment on above:NO SHOW (Primary Dx)Start: 01-04-2022 End: 87-28-4061Xrdorfutdyfe consultation with Almaz Ward PSYD Work Phone: [facility] MAINStart: 59-09-9897cepcgrbzik Jaskarankanwal Guzman UTILITY SYSTEM REPAIRER.CAKE MAKER Work Phone: NeurologyComment on above:MEDCOStart: 12-29-2021 End: 71-34-3272zxearrcdygDzbd Shannon UTILITY SYSTEM REPAIRER.CAKE MAKER Work Phone: NeurologyComment on above:MEDCOStart: 12-29-2021 Telephone encounterSmercy health [facility] CandelariaOchsner Medical Centertart: 12-26-2021 End: 67-37-1954Wvlnqssz HealthDawdonald Franco [facility] Work Phone: NEUROLOGYComment on above:PTSD (post-traumatic stress disorder) (Primary Dx); Mixed obsessional thoughts and actsAppointmentStart: 21-77-2242Gicwwrzuy encounterNejerad Sandoval MD Work Phone: NeurologyComment on above:Forms ([employer]co-14)Start: 77-13-6114Wmttpnwul encounterRobjanessa Ng MD Work Phone: [facility] MedComment on above:medco 14 form neededStart: 12-12-2021 End: 50-45-7605eebdqskpzrNden Ruggles Other [facility] [employer] Other Start: 42-66-4333Zzqmki outpatient visit 25 minutes Jackson CandelariaOchsner Medical Centertart: 12-09-2021 End: 83-20-3148Aerexyzg Yolanda Ward PSYD Work Phone: NeurologyComment on above:PTSD (post-traumatic stress disorder) (Primary Dx); Generalized anxiety disorder; Adjustment disorder with depressed mood; POTS (postural orthostatic tachycardia syndrome); Post-acute 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)Start: 19-19-8810Porretcyl encounterJimenez Sandoval MD Work Phone: NeurologyComment on above:Received Outside Medical Records (letter)Start: 11-17-2021 End: 28-11-9330Msjrtpf encounter procedureQueta Ward PSYD Work Phone: NeurologyComment on above:APPOINTMENT CANCELLED (Primary Dx)Start: 11-17-2021 End: 06-22-5465Tauefzvaglmw consultation with Almaz Ward PSYD Work Phone: [facility] MAINStart: 26-72-0985ywfslwqfji Jaskaran Guzman APRN.CAKE MAKER Work Phone: [facility] MAINStart: 05-53-9572Ntiooe encounterJaskaran Guzman APRN.WANDER Work Phone: NeurologyComment on above:letterStart: 11-02-2021 End: 87-13-2551Oxcwtgd encounter procedureJaskaran Guzman APRN.WANDER Work Phone: NeurologyComment on above:POTS (postural orthostatic tachycardia syndrome) (Primary Dx); Sinus tachycardia; Post-COVID syndromeStart: 11-01-2021 End: 19-59-0108Ukqqelah HealthDacasimiro Zamorakiara MARKCARLY Work Phone: PsychologyComment on above:Post-acute 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) (Primary Dx); PTSD (post-traumatic stress disorder); Obsessive-compulsive disorder, unspecified typeStart: 10-28-2021 End: 05-75-8252pndufmllqxSjkfuf Saper MD Work Phone: [facility] MedComment on above:medco form Start: 98-80-5795X-mail encounter from Vinnie Ng MD Work Phone: [facility]Start: 33-80-4044Pdcrjhvzf encounter Alvin Ng MD Work Phone: [facility] MedComment on above:MedCo 14 Form Start: 31-78-0825Dmdvcpplw encounterSeth [facility] Start: 10-26-2021 End: 36-34-9264bfeafgexmvWykujkmk A Karp RD Work Phone: Nutrition TherapyComment on above:Obesity, Class I, BMI 30-34.9 (Primary Dx); Dietary counselingStart: 10-26-2021 End: 92-51-1401Vpsxocdjovtx consultation with patientElierphillip Jennifer Doanvignesh ASKEW Work Phone: [facility]art: 10-25-2021 End: 77-11-9653usyvkfuqbvCvjiud Mili Flaquito DO Work Phone: NeurologyComment on above:POTS (postural orthostatic tachycardia syndrome) (Primary Dx)Start: 10-25-2021 End: 59-99-0812Dbahtrpnghej consultation with patientFazaljanessa Garces Flaquito BROOKS Work Phone: [facility] MAINStart: 10-25-2021 End: 75-25-7942Lniakui encounter Dustin Ng MD Work Phone: [facility] MedComment on above:POTS (postural orthostatic tachycardia syndrome) (Primary Dx); Long COVIDStart: 12-26-1468GtpbmqNccx Megan ENCINAS Work Phone: NeurologyComment on above:Refill RequestStart: 10-18-2021 End: 62-43-8571Dnosycux HealthDawdonald Gamez PSYD Work Phone: PsychologyComment on above:PTSD (post-traumatic stress disorder) (Primary Dx); Post-acute 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)POTS (postural orthostatic tachycardia syndrome) (Primary Dx)Start: 10-13-2021 End: 79-34-5303Neuovqep Radha Gamez PSYD Work Phone: PsychologyComment on above:Long COVID (Primary Dx); PTSD (post-traumatic stress disorder); Generalized anxiety disorder; Adjustment disorder with depressed moodStart: 73-68-4945ezdckchtzlYiwfugf Scott Emery MD Work Phone: CardiologyComment on above:CAIXJ67Gllzf: 10-06-2021 Telephone encounterJimenez Sandoval MD Work Phone: NeurologyComment on above:Forms (Medco-14 forms)Start: 91-98-5425wlpdgkqijdMttticuChanelle Barajas MD Work Phone: CardiologyComment on above:Lvhzb20Tdjkl: 10-03-2021 Telephone encounterAlvin Ng MD Work Phone: [facility] Integr[facility] MedComment on above:Patient Update Start: 09-26-2021 End: 88-26-6850gnffirjfbzQmprt [place] Other [facility] [employer] Other Start: 20-12-5819Fgsxruwhd encounterHeidi GastFPG Pulmonary DiseaseStart: 09-23-2021 End: 86-15-5881drmbqjpoukZmwq Kerrie Other Nort [employer] Other Start: 07-65-0793Qvhpkpisa encounterSeth RugglesFPG Family Medicine NorwalkStart: 54-32-2327WevbowYqtt Megan ENCINAS Work Phone: NeurologyComment on above:Refill RequestStart: 09-19-2021 End: 54-90-3736Xpfekcgw Yolanda Ward PSYD Work Phone: NeurologyComment on above:PTSD (post-traumatic stress disorder) (Primary Dx); Generalized anxiety disorder; Adjustment disorder with depressed mood; POTS (postural orthostatic tachycardia syndrome); Post-acute 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)Start: 09-13-2021 End: 69-36-8828gxcmhufuvdElugeb G Wilson DO Work Phone: NeurologyComment on above:POTS (postural orthostatic tachycardia syndrome) (Primary Dx)Start: 09-13-2021 End: 15-99-8596Ldoteencnyrm consultation with jose luisFazaljanessa Huddleston DO Work Phone: [facility] MAINStart: 79-40-3543Mzcrigohu encounterNejerad Sandoval MD Work Phone: NeurologyComment on above:Received Outside Medical Records ([employer])Start: 09-07-2021 End: 43-49-8875ouitnizmbvCldki Kazaglis MD Work Phone: NeurologyComment on above:Chronic insomnia (Primary Dx); SnoringStart: 09-07-2021 End: 33-36-1807Pxlguctakslb consultation with Rosario Anne MD Work Phone: [facility] MAINStart: 09-07-2021 End: 14-20-2509zciridvdipJzvpspkt A Karp RD Work Phone: Nutrition TherapyComment on above:Obesity, Class I, BMI 30-34.9 (Primary Dx); Dietary counselingStart: 09-07-2021 End: 31-38-1489Xraejzooprtl consultation with Aydin Mujica RD Work Phone: [facility]ENTERtart: 09-02-2021 End: 35-78-2014tgmcopdfrxKull Kerrie Other Nort [employer] Other Start: 72-02-5971Fcvmqdicl encounterSmichelle SySaint Vincent Hospital Medicine [facility] Hospitaltart: 54-54-9688wkphzucwyxPvnk Megan BALL.WANDER Work Phone: NeurologyComment on above:MedsStart: 08-31-2021 ambulatoryKykanwal Guzman APRN.CNP Work Phone: NeurologyComment on above:medsStart: 08-30-2021 End: 94-74-8195kwxlhmyruoQnys Kerrie Other [facility] [employer] Other Start: 48-55-6187Xffwne outpatient visit 25 minutes Misha [facility]Char[facility] rt: 08-29-2021 End: 61-17-0228cbglsxhoppYrvi Cherian MD Work Phone: NeurologyComment on above:Vertigo, central origin (Primary Dx); Cervicocranial syndrome; POTS (postural orthostatic tachycardia syndrome)Start: 08-29-2021 End: 31-05-1667Uurpkhyhxjql consultation with Palak Sandoval MD Work Phone: [facility] MAINStart: 08-26-2021 End: 91-66-5563AkrpahmgECU Health [facility] Work Phone: NeurologyComment on above:PTSD (post-traumatic stress disorder) (Primary Dx); Generalized anxiety disorder; Adjustment disorder with depressed mood; POTS (postural orthostatic tachycardia syndrome); Post-acute 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)Start: 08-19-2021 End: 45-01-0679pvdbremkcaUukg Kerrie Other [place] [employer] Other Start: 93-27-9919Jihzug outpatient visit 15 minutes [facility]VAL[facility] ClydeStart: 63-43-1046Vvlqbhawp encounterSmercy health [facility] Kerrie [facility] Hospitaltart: 08-16-2021 End: 03-98-5511qivocjkctkYffapc G Wilson DO Work Phone: NeurologyComment on above:POTS (postural orthostatic tachycardia syndrome) (Primary Dx)Start: 08-16-2021 End: 97-97-8893Yzugkfwkqhhq consultation with Oneyda Huddleston DO Work Phone: [facility] MAINStart: 94-00-2715Tqrcdjrko encounterAlilouisa Witt DO Work Phone: Functional MedicineComment on above:Other (Release of medical records)Start: 59-43-8198Vlxokfxgx encounterOksana Darby MD Work Phone: Functional MedicineComment on above:Release Of Medical RecordsStart: 20-35-8603Srcbuglkg encounterAlvin Ng MD Work Phone: [facility] Integr[facility] MedComment on above:Release Of Medical RecordsStart: 08-11-2021 End: 42-14-3640wpxdncdcykNlcv Hayabida RODRIGUEZ Work Phone: NeurologyComment on above:NO SHOW (Primary Dx)Start: 08-11-2021 End: 60-37-2766Kybqjlgdywwh consultation with Almaz Ed RODRIGUEZ Work Phone: [facility] MAINStart: 92-89-4606Znphavuzo encounterCcf ProviderCardiologyComment on above:PROVIDER REQUEST (REQUEST FOR RECORDS - FAXED/FORWARDED TO MEDICAL RECORDS)Start: 67-20-5996xcxtnfwobsAovusj G Wilson DO Work Phone: NeurologyComment on above:SMAStart: 07-27-2021 End: 88-51-0179hijgueoltlUfbvypvw A Karp RD Work Phone: Nutrition TherapyComment on above:Obesity, Class I, BMI 30-34.9 (Primary Dx); Dietary counselingStart: 07-27-2021 End: 46-42-8107Ayihcfcinwdy consultation with patientWilma Mujica RD Work Phone: [facility] FHCStart: 95-11-5369BggleyAxgc Shannon APRN.CAKE MAKER Work Phone: NeurologyComment on above:Refill RequestStart: 07-19-2021 End: 51-72-9238zmbkvnvjayBvcxAftab Guzman APRN.CNP Work Phone: NeurologyComment on above:VitalsRefill RequestTherapy Start: 52-87-8438Qfvqxkdqu encounterSBrigham [facility] Start: 07-14-2021 End: 80-69-4653Kzzyto OnlyFazaljanessa Garces Flaquito DO Work Phone: NeurologyComment on above:POTS (postural orthostatic tachycardia syndrome) (Primary Dx); Orthostatic lightheadedness; TachycardiaPTSD (post-traumatic stress disorder) (Primary Dx); Generalized anxiety disorder; Adjustment disorder with depressed mood; POTS (postural orthostatic tachycardia syndrome); Post-acute 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)Start: 92-30-5019hqdetdcvikQthyRico Guzman APRN.CNP Work Phone: NeurologyComment on above:medicationStart: 06-30-2021 Patient encounter procedureReferring Provider UnknownUNC Health Work Phone: Start: 06-27-2021 End: 09-04-3616sjksfwizukUspu Kerrie Other [place] [employer] Other Start: 47-89-9563JnwrqlMekxRandolph Guzman APRN.CNP Work Phone: NeurologyComment on above:Refill RequestStart: 14-73-7826Taegrexwt encounterSBarnes-Jewish Hospitaltart: 86-03-8414Gdzsm Sang Nichols MD Work Phone: Pulmonary MedicineStart: 77-57-1614Mskiwbzig encounter Aliya Pavon MD Work Phone: [facility] for Integrative MedComment on above:paperwork Start: 06-21-2021 End: 28-40-4458welqglczyfUsslsl G Wilson DO Work Phone: NeurologyComment on above:POTS (postural orthostatic tachycardia syndrome) (Primary Dx)Start: 06-21-2021 End: 00-92-9555Fdjdqcvhasno consultation with Arabellajanessa Garces Flaquito DO Work Phone: [phone] [facility] MAINStart: 06-10-2021 End: 57-71-2918cezlraylbsUjun Kerrie Other [facility] [employer] Other Start: 10-60-1288Deiniegoi encounterSeth KerrieChar[facility] Hospital NorwalkStart: 06-07-2021 End: 20-03-6787cwzssddtqwYbymst G Wilson DO Work Phone: NeurologyComment on above:POTS (postural orthostatic tachycardia syndrome) (Primary Dx)Start: 06-07-2021 End: 24-99-3671Fybkhglmpefn consultation with Arabellajanessa Garces Flaquito DO Work Phone: [facility] MAINStart: 38-16-0119dcezlxbjofyanira Guzman APRN.CNP Work Phone: [facility] MAINComment on above:MedsStart: 73-28-3981Saoppq Maeve Guzman APRN.CNP Work Phone: NeurologyComment on above:letterStart: 06-02-2021 End: 08-64-4975eqiakxghauGvfc Kerrie Other [facility] [employer] Other Start: 62-98-0335Hffxolyge encounterSeth KerrieCharron [facility]aternity Hospital [facility] centerkStart: 06-01-2021 End: 44-85-9363csbnwdjnamOuohRico Guzman APRN.CNP Work Phone: NeurologyComment on above:POTS (postural orthostatic tachycardia syndrome) (Primary Dx); Orthostatic lightheadedness; TachycardiaAfter visit summaryStart: 31-71-2610V-mail encounter from caregiver Lisette Laureano APRN.CNP Work Phone: [facility] MAINStart: 38-67-2268Xasoidrga encounterSeth CandelariaabbyCharron Maternity Hospital [facility] centerkStart: 06-01-2021 End: 46-20-3057Mozuxhlnqfjj consultation with Vern Guzman APRN.CNP Work Phone: [facility] MAINStart: 05-31-2021 End: 34-91-1226iqnowdqxgqUqcdRico Guzman APRN.CNP Work Phone: NeurologyComment on above:ApptObesity, Class I, BMI 30-34.9 (Primary Dx); Dietary counselingStart: 29-49-5670Jnrtcz outpatient visit 25 minutesSet NingMercyOne [facility] Medicine [facility] psychiatric centerkStart: 05-31-2021 End: 12-76-1752Rsvpcgprjkmc consultation with Aydin Mujica RD Work Phone: [facility]: 05-30-2021 End: 03-93-7873GpygnsjqECU Health [facility] Work Phone: NeurologyComment on above:PTSD (post-traumatic stress disorder) (Primary Dx); Generalized anxiety disorder; Adjustment disorder with depressed mood; POTS (postural orthostatic tachycardia syndrome); Post-acute 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)Start: 93-16-5912srztlfozdvEotds Kazaglis MD Work Phone: [facility] MAINStart: 51-51-9860Lqguit-up encounterSherwin Anne MD Work Phone: NeurologyComment on above:Follow upStart: 05-27-2021 Telephone encounterSherwin Anne MD Work Phone: NeurologyComment on above:AppointmentStart: 05-24-2021 End: 87-35-2066livwrgbwkzBpdvih G Wilson DO Work Phone: NeurologyComment on above:POTS (postural orthostatic tachycardia syndrome) (Primary Dx)Start: 05-24-2021 End: 75-14-5715Hmltlmywaijq consultation with Oneyda Huddleston DO Work Phone: cc[facility] MAINStart: 26-75-6085qfcudlymrw Sherwin Anne MD Work Phone: [facility] MAINStart: 71-59-6284Zdilt [facility] Main Work Phone: NeurologyStart: 46-37-4989Ctpaqf-up encounterSherwin Anne MD Work Phone: NeurologyComment on above:follow upStart: 05-16-2021 End: 23-07-8368xfbahryywzIejq Kerrie Other [email or web address] Other Start: 73-77-9995Rxcarwyje encounterSeth RugglesG Family Medicine [facility] Hospitaltart: 91-94-1029Ykqcdnl encounter procedureReferring Provider UnknownMG-Pul SleepK[facility]tering [facility] Work Phone: Start: 04-29-2021 End: 35-37-3223pdgfpuldckQhso Easter[place] Other [employer] Other Start: 26-33-4486Gincneiem encounterDana EasterwoodG Family Medicine [facility] Hospitaltart: 04-28-2021 End: 06-04-7046uhazmfpgbtLwwt Kerrie Other [email or web address] Other Start: 93-41-8323Ossymwhmq encounterSeth RugglesG [facility] Medicine [facility] Hospitaltart: 38-51-6983Rplhksh tobacco non-user cad cap copd pv dmReferring Provider UnknownMG-Pul [facility] [facility] Work Phone: Start: 04-22-2021 End: 17-60-7345jebkosjvfaGfpn Kerrie Other [employer] Other Start: 27-60-0527Lythavqxt encounterSeth RugglesFPG [facility] Hospitaltart: 04-08-2021 End: 25-38-8176bsriksvnuaMfba Kerrie Other [employer] Other Start: 39-02-4633Ubysaxdyg encounterSeth RugglesFPG [facility] Hospitaltart: 04-05-2021 End: 43-57-5841bqlfcceiscZioq Kerrie Other [email or web address] Other Start: 51-29-6321Rujgiqhiz encounterSeth RugglesFPG [facility] Hospitaltart: 04-04-2021 End: 00-78-0957nttwiwylcbXptp Kerrie Other [facility] [employer] Other Start: 49-49-5665Lqrvvprgw encounterSeth RugglesFPG Family [facility] Hospitalrt: 04-01-2021 End: 85-21-4041ssyuxlmhklQgpz Kerrie Other [place] [employer] Other Start: 25-91-2519Ugzvpw outpatient visit 15 minutes Misha RugglesFPG [facility] Hospitaltart: 05-90-9558Ilqbxhvqf encounterSeth RugglesFPG [facility] Hospitalrt: 03-11-2021 End: 94-02-1584wwigcbcyajXsnd Kerrie Other noIs[employer]era [employer] Other Start: 48-27-8414Ukgnnqxbw encounterSeth RugglesFPG [facility] Hospitaltart: 02-15-2021 End: 86-53-3544gvgyxwmtaeHorq Kerrie Other [email or web address] Other Start: 77-38-5489Eneuzvrtf encounterSeth RugglesFPG [facility] Hospitaltart: 02-08-2021 End: 52-09-9758iptymqcnltPbla Kerrie Other [employer] Other Start: 34-93-1529Bapzoldco encounterSeth RugglesFPG [facility] Hospitaltart: 01-14-2021 End: 64-39-5938wtfdnsbghyJkse Kerrie Other [facility] [employer] Other Start: 79-60-9417Ncqjilbxb encounterSeth RugglesFPG [facility] Hospitaltart: 01-10-2021 End: 14-53-5940kxnanrkkktLrua Kerrie Other [facility] [employer] Other Start: 23-82-5278Mymeigvpd encounterSeth RugglesFPG [facility] Hospitaltart: 01-04-2021 End: 43-92-0390bchpoqmpyeNkla Kerrie Other [facility] [employer] Other Start: 80-93-9995Zudnqy outpatient visit 25 minutes Misha RugglesFPG [facility] Hospitaltart: 12-30-2020 End: 25-36-6538fyrdkwteksRwqh Kerrie Other [facility] [employer] Other Start: 97-04-8796Egwcrjqjl encounterSeth RugglesFPG [facility] Hospitaltart: 90-51-4966Uarjaipyp encounterSeth RugglesFPG [facility] Hospitaltart: 12-01-2020 End: 49-36-5955pimskpdpymJdti Kerrie Other [facility] [employer] Other Start: 86-08-4068Hjzzyz outpatient visit 15 minutes Misha RugglesFPG [facility] Hospitaltart: 41-52-2192Nigvmfmkx encounterSeth RugglesFPG [facility] Hospitaltart: 11-24-2020(URG) Urgent Care VisitPamela DymondFPG Urgent Care ClydeStart: 40-99-6347Pqybilaip encounterSeth RugglesFPG [facility]gent Care ClydeStart: 11-81-6411Iwpveptqi encounterSeth KerrieFPG [facility] LumpkinkStart: 55-91-3637Klkchryld encounterSeth KerrieFPG [facility] LumpkinkStart: 86-91-1171Njxwhp outpatient visit 25 minutesSeth Kerrie FPG [facility] LumpkinkStart: 96-07-7335Owpdxgbct encounterSeth KerrieFPG [facility] Atlantatart: 68-51-9770Yzyimsp evaluation of patient and report Edie GonzalezFPG [facility]gent Care ClydeStart: 68-06-3611Bngrgytoc encounterBrrafael Toussaint UTILITY SYSTEM REPAIRER.CAKE MAKER Work Phone: Covid Recover ClinicComment on above:ResultsStart: 27-75-0874Hrnmfij encounter procedureHONGYAN LIFacility:UTMCStart: 05-13-2018 End: 43-90-1185Pdnxagg encounter procedureHONGYAN LIFacility:UTMCStart: 04-12-2018 End: 95-95-8343Bkshxrx encounter procedureHONGYAN LIFacility:UTMCStart: 03-15-2018 End: 58-98-4518Xnzexbx encounter procedureHONGYAN LIFacility:UTMCStart: 02-28-2018 End: 08-00-9989Ekyfwnk encounter procedureHONGYAN LIFacility:UTMCStart: 01-12-2018 End: 98-80-0326Lradxlh encounter procedureHONGYAN LIFacility:UTMCStart: 12-13-2017 End: 27-98-6875Biegrcl encounter procedureHONGYAN LIFacility:UTMCStart: 11-12-2017 End: 83-27-4980Smqzubg encounter procedureHONGYAN LIFacility:UTMCStart: 10-13-2017 End: 36-88-8978Rqhhyns encounter procedureHONGYAN LIFacility:UTMCStart: 09-12-2017 End: 35-08-6997Nkfmwed encounter procedureHONGYAN LIFacility:UTMCStart: 08-28-2017 End: 16-78-7503Wyjsymm encounter procedureHONGYAN LIFacility:UTMCStart: 07-11-2017 End: 50-67-9303Lsvnuvxqt department patient visitMOHAMAD A MOUSSAFacility:[facility] Procedures DateProcedureProcedure DetailPerforming ClinicianStart: 64-99-1931LOH NOMS INTRALESIONAL KENALOG INJECTIONRylee Vahe PA Work Phone: Start: 74-03-5173Lchyc cultureSeth Kerrie DO Work Phone: Start: 74-11-1116Evmign-up visitFollow Soren GAMEZ Start: 06-79-2387JVKY / NAIL BIOPSYRylee Vahe ADELAIDE Work Phone: Start: 33-37-7592Zungq X-ray of right shoulderSeth Kerrie DO Work Phone: Start: 25-06-9670Cesbc cultureRajni Decker APRN Work Phone: Start: 27-19-6779TVBTC Antigen (POC)Melanie Meyer PA-C Work Phone: Start: 97-17-1943Sqylc Strep (POC)Melanie Meyer PA-C Work Phone: Start: 19-41-3267Cykcu cultureMelanie Meyer PA-C Work Phone: Start: 47-64-9758OFQ AND NERVE CONDUCTIONRhett Baez MD Work Phone: start: 85-67-7739Lcawp cultureDO Yolanda Staples Work Phone: Start: 10-50-2719Ynfxu cultureDO Yolanda Staples Work Phone: Start: 69-07-6972Icuot cultureDO Yolanda Staples Work Phone: Start: 01-07-1972Psccp chest X-rayDO Yolanda Staples Work Phone: Start: 78-74-6139Uabmk depression screening assessment Judy Gamez PSYD Work Phone: Start: 96-99-6027Njraz depression screening assessment uJdy Gamez PSYD Work Phone: Start: 82-40-4480Kkexq depression screening assessment Judy Franco FLORESYD Work Phone: Start: 52-18-0418Bywac depression screening assessment Jaskaran Guzman APRN.CAKE MAKER Work Phone: Start: 22-65-2019Sfxuu depression screening assessment Queta Ward PSYD Work Phone: Start: 86-52-0164Nipor depression screening assessment Alvin Huddleston DO Work Phone: Start: 05-41-7083Hxtzcqpfydkqy w/patient 45 minutes Referring Provider UnknownStart: 96-72-0986Dlkot depression screening assessment Jaskaran Guzman APRN.CAKE MAKER Work Phone: Start: 54-90-5453Taaox depression screening assessment Queta Ward PSYD Work Phone: Start: 71-19-3826Xseouasyoilsl w/patient 45 minutes Referring Provider UnknownStart: 30-04-3664Qrmrv depression screening assessment Sleep Main Work Phone: None (qualifier value)Yvonne Brooksferny Plan of Treatment DateCare ActivityDetailAuthorStart: 53-36-1648Tgafil Vaccines (1 of 2)Zoster Vaccines (1 of 2)[facility]: 25-48-2955PGkZ/Tdap/Td Vaccines (2 - Td or Tdap)DTaP/Tdap/Td Vaccines (2 - Td or Tdap)[facility]: 84-64-1768Lipwt microalbumin profilePotsdam ClinicStart: 03-06-2025 End: 43-70-5494Keejrut encounter rtpauttqg82/23/2026 9:00 AM EST Office Visit Gastroenterology [address] [place] [address] David Kevin Jr., DO [address] [place] [phone] Return in about 6 monthsGastroenterology Comment on above:Return in about 6 monthsStart: 03-05-2025 End: 94-80-3546Qvxtamw encounter nzsbowmrm55/22/2026 4:30 PM EST Office Visit [facility] [address] [facility] [address] [place] [address] [place] [address] [facility] [place] [address] [facility]Start: 02-18-2025 End: 21-82-1799Hguuvl-up ugvzjkbnk08/07/2026 7:00 AM EST [facility] NEUROLOGY [address] [place] [address] [phone] Judy Gamez, PSYD [address] [place] [address] follow-upNEUROLOGYComment on above:follow-upStart: 01-16-2025 End: 55-53-8976Pznybk-up kyxaozfce20/05/2025 9:30 AM EST [facility] NEUROLOGY [address] [place] [phone] Judy Gamez, PSYD [address] [place] [address] Follow UpNEUROLOGYComment on above:Follow UpStart: 01-01-2025 End: 98-88-9086Jobrzra encounter xbcssiccy91/20/2025 10:05 AM EST Office Visit [facility] [address] [phone] Doris Bejarano APRN-CAKE MAKER [address] [place] [address] NOMDaryl Herrera DermatologyStart: 12-26-2024 End: 37-38-3721Joiveu-up zcevbpcln08/14/2025 9:30 AM EST [facility] NEUROLOGY [address] [place] [address] [phone] Judy Gamez PSYD [address] [place] [address] Follow UpNEUROLOGYComment on above:Follow UpStart: 12-12-2024 End: 90-11-3839Bmwkyw-up /31/2025 9:30 AM EDT [facility] NEUROLOGY [address] [place] [address], [place] [phone] Judy Gamez PSYD [address] [place] [address] Follow UpNEUROLOGYComment on above:Follow UpStart: 12-09-2024 End: 20-58-5814Uocydpd encounter zecurkaqq59/28/2025 9:20 AM EDT Office Visit [facility] [address] [place] [phone] Doris Bejarano, UTILITY SYSTEM REPAIRER-CAKE MAKER [address] [place] [address] [facility] Comment on above:ArrivedStart: 12-04-2024 End: 87-30-5463Mrgnstm encounter jxjqjsaut87/23/2025 9:25 AM EDT Office Visit [facility] [address] [place] [phone] Doris Bejarano, UTILITY SYSTEM REPAIRER-CAKE MAKER [address] [place] [address] [facility] DermatologyStart: 11-21-2024 End: 47-63-9480Ofjvps-up gwdqladcn69/10/2025 8:00 AM EDT [facility] NEUROLOGY [address] [place] [address] [phone] Judy Gamez PSYD [address] [place] [address] follow-upNEUROLOGYComment on above:follow-upStart: 11-07-2024 Diabetes mellitus screeningDiabetes ScreeningGlenbeigh Hospital Start: 11-05-2024 End: 22-51-7322Fncoug-up txajscxme12/24/2025 8:00 AM EDT [facility] NEUROLOGY [address] [place] [address] [phone] Judy Gamez PSYD [address] [place] [address] follow-upNEUROLOGYComment on above:follow-upStart: 11-03-2024 End: 16-47-7658Cwctexj encounter procedureNOMS [place] DermatologyComment on above:ArrivedStart: 10-22-2024 End: 57-63-3835dcysgddrmb32/10/2025 8:00 AM EDT [facility] NEUROLOGY [address] [place] [address], [place] [phone] Judy Gamez PSYD [address] [place] [address] NEUROLOGYStart: 25-33-4208Asqciwxms vaccinationMiddletown Hospitalveland ClinicStart: 10-02-2024 End: 78-90-6702Stdqhws encounter procedureNOMS SWS DERMComment on above:Arrived Start: 09-30-2024 End: 87-87-1421Gxmctq-up rezmbnzyq48/19/2025 9:30 AM EDT [facility] NEUROLOGY [address] [place] [address] [phone] Judy Gamez PSYD [address] [place] [address] Follow UpNEUROLOGYComment on above:Follow UpStart: 09-19-2024 End: 28-17-2204Oulymv-up gahptlzma50/08/2025 8:00 AM EDT [facility] NEUROLOGY [address] [place] [address] [phone] Judy Gamez PSYD [address] [place] [address] follow-upNEUROLOGYComment on above:follow-upStart: 09-10-2024 End: 88-02-5847Okhuuo-up otdiytuez28/30/2025 10:30 AM EDT [facility] NEUROLOGY [address] [place] [address], [place] [phone] Judy Gamez PSYD [address] [place] [address] Follow UpNEUROLOGYComment on above:Follow UpStart: 08-28-2024 End: 46-48-4256Opuooe-up juxpsmxkb77/17/2025 8:00 AM EDT [facility] NEUROLOGY [address] [place] [address], [place] [phone] Judy Gamez PSYD [address] [place] [address] Follow UpNEUROLOGYComment on above:Follow UpStart: 08-27-2024 Bacteria identified in Urine by CultureMemorial Health System Marietta Memorial Hospitaltart: 08-27-2024 End: 96-71-8672Mjvacj-up upfeyvxso22/16/2025 10:30 AM [facility] NEUROLOGY [address] [place] [phone] Judy Gamez PSYD [address] [place] [address] Follow UpNEUROLOGYComment on above:Follow UpStart: 13-83-3876IruecUniversity Hospitals Elyria Medical Centertart: 08-08-2024 End: 11-07-2024 reactive protein [Mass/volume] in Serum or PlasmaPotsdam Clinic [facility] Work Phone: Comment on above:Expected: 08/08/2024, Expires: 11/07/2024Start: 08-08-2024 End: 22-93-2872PGQDVZ SCREEN WITH REFLEXCleveland ClinicComment on above: Expected: 08/08/2024, Expires: 11/07/2024Start: 08-08-2024 End: 27-18-7048Vgtimtunr (Vitamin B12) [Mass/volume] in Serum or PlasmaCleveland ClinicComment on above:Expected: 08/08/2024, Expires: 11/07/2024Start: 08-08-2024 End: 90-54-0847Zdfcyq [Mass/volume] in Serum or PlasmaCleveland ClinicComment on above:Expected: 08/08/2024, Expires: 11/07/2024Start: 08-08-2024 End: 86-02-0154PwB [Units/volume] in Serum or PlasmaCleveland ClinicComment on above:Expected: 08/08/2024, Expires: 11/07/2024Start: 08-08-2024 End: 16-39-6361PfG [Mass/volume] in Serum or PlasmaCleveland ClinicComment on above:Expected: 08/08/2024, Expires: 11/07/2024Start: 08-08-2024 End: 03-78-4283XqN [Mass/volume] in Serum or PlasmaCleveland ClinicComment on above:Expected: 08/08/2024, Expires: 11/07/2024Start: 08-08-2024 End: 83-35-6857Jgqqbhq encounter kesqngbpe02/27/2025 9:20 AM EDT Office Visit Gastroenterology [address] [place] [address] David Kevin Jr., DO [address] [facility] [address] GONZAL[place] [address] [place] [phone] Nausea, Deficiency of other B group vitaminsGastroenterologyComment on above:Nausea, Deficiency of other B group vitaminsStart: 08-07-2024 End: 31-36-8791Zfkyzm-up /26/2025 10:00 AM EDT [facility] NEUROLOGY [address] [place] [address], [place] [phone] Judy Gamez, PSYD [address] [place] [address] Follow UpNEUROLOGYComment on above:Follow UpStart: 07-31-2024 End: 15-50-2810Mqurdpq encounter procedureNOMS SWS DERMComment on above:Arrived Start: 07-24-2024 End: 89-86-4314Qrevxa-up nzyizihnq45/12/2025 10:00 AM EDT [facility] NEUROLOGY [address] [place] [address], [place] [phone] Judy Gamez PSCARLY [address] [place] [address] Follow UpNEUROLOGYComment on above:Follow UpStart: 07-17-2024 End: 50-10-7162Zlxkjft encounter rdmsdcpux05/05/2025 9:50 AM EDT Office Visit [facility] DERM [address] [place] [phone] Nikki Cotter PA [address] [place] [address] ArrivedNOMS SWS DERMComment on above:ArrivedStart: 07-11-2024 End: 35-55-2670Xeakou-up lpojoteyz59/30/2025 7:00 AM EDT [facility] NEUROLOGY [address] [place] [address] [phone] Judy Gamez PSYD [address] [place] [address] Follow UpNEUROLOGYComment on above:Follow UpStart: 06-26-2024 End: 95-49-3882Dfragf-up eooxirfjn28/15/2025 8:00 AM EDT [facility] NEUROLOGY [address] [place] [address], [place] [phone] Judy Gamez PSYD [address] [place] [address] Follow UpNEUROLOGYComment on above:Follow UpStart: 06-06-2024 End: 05-94-3624Evndzr-up wnifnvskx57/25/2025 9:00 AM EDT [facility] NEUROLOGY [address] [place] [address], [place] [phone] Judy Gamez PSYD [address] [place] [address] Follow UpNEUROLOGYComment on above:Follow UpStart: 06-05-2024 End: 71-57-5180Mslkkj-up xmnofbzgz94/24/2025 9:00 AM EDT [facility] NEUROLOGY [address] [place] [address], [place] [phone] Judy Gamez PSYD [address] [place] [address] Follow UpNEUROLOGYComment on above:Follow UpStart: 05-31-2024 Bacteria identified in Urine by CultureUrine Harrison Community Hospitaltart: 97-43-0774Judml [facility] - Dublintart: 05-22-2024 End: 52-82-8297Gyfsoq-up encounterNEUROLOGYComment on above:Follow UpStart: 05-08-2024 End: 49-26-0342Azxofq-up nsboeaanf38/27/2025 9:00 AM EDT [facility] NEUROLOGY [address] [place] [address], [place] [phone] Judy Gamez PSYD [address] [place] [address] Follow UpNEUROLOGYComment on above:Follow UpStart: 04-24-2024 End: 61-93-7783Antmok-up eckdoufrp37/13/2025 9:00 AM EDT [facility] NEUROLOGY [address] [place] [address] [phone] Judy Gamez, PSYD [address] [place] [address] Follow UpNEUROLOGYComment on above:Follow UpStart: 04-10-2024 End: 51-99-7566Beluky-up qeajjousn45/27/2025 9:00 AM EST [facility] NEUROLOGY [address] [place] [address] [phone] Judy Gamez, PSYD [address] [place] [address] Follow UpNEUROLOGYComment on above:Follow UpStart: 03-26-2024 End: 00-08-8716Bovesy-up sebwlhlyo55/12/2025 9:00 AM EST [facility] NEUROLOGY [address] [place] [address] [phone] Judy Gamez, PSYD [address] [place] [address] Follow UpNEUROLOGYComment on above:Follow UpStart: 02-28-2024 Bacteria identified in Urine by CultureUrine [facility] Community Hospitaltart: 67-83-7511Lyasz [facility] Dublintart: 02-12-2024 End: 03-89-2252wqgvxmshfxFSYMLAIGBRsqat: 44-19-0406Ozptqna referralMary Rutan Hospital Work Phone: Start: 01-24-2024 End: 44-12-4563Fuboqlf encounter xuhyzhrgw15/12/2024 10:30 AM EST Office Visit [facility] [address] [facility] 5th [place] [address] [place] [address] [place] [address] [facility] BolwellStart: 12-25-2023 End: 09-37-7391Hjxkwt-up ysynsknjp01/12/2024 9:00 AM EST [facility] NEUROLOGY [address] [place] [address] [phone] Judy Gamez PSYD [address] [place] [address] Follow UpNEUROLOGYComment on above:Follow UpStart: 12-11-2023 End: 64-38-0133ybwzkalvxdFYLYOTZLCQvxgj: 11-16-2023 End: 68-15-0146tgohuqkxvj80/04/2024 9:00 AM EDT [facility] NEUROLOGY [address] [place] [address] [phone] Judy Gamez PSYD [address] [place] [address] TherapyNEUROLOGYComment on above:TherapyStart: 10-31-2023 End: 28-43-4486Gcdlsf-up pzikbyyiq72/18/2024 8:00 AM EDT [facility] NEUROLOGY [address] [place] [address] [phone] Judy Gamez PSYD [address] [place] [address] follow-upNEUROLOGYComment on above:follow-upStart: 10-14-2023 Covid-19 Vaccine ( season)Covid-19 Vaccine ( season) [facility] ClinicStart: 43-02-1772Wbhzr-19 Vaccine ( season)Covid-19 Vaccine ( season)[facility] Cancer Centertart: 26-33-4453Upzfpmuki vaccinationOhioHealth Arthur G.H. Bing, MD, Cancer Centertart: 10-04-2023 End: 19-61-7251Lxbqhqzq [Enzymatic activity/volume] in Serum or PlasmaAldolase Lab Routine POTS (postural orthostatic tachycardia syndrome) Expected: 10/04/2023 (Approximate), Expires: 10/03/2024[facility] Work Phone: Comment on above:Expected: 10/04/2023 (Approximate), Expires: 10/03/2024Start: 10-04-2023 End: 32-47-5049Rmxedaiplifmyd Acid (ALA), UrineAminolevulinic Acid (ALA), Urine Lab Routine POTS (postural orthostatic tachycardia syndrome) Expected: 10/04/2023 (Approximate), Expires: 10/03/2024[facility] Work Phone: Comment on above:Expected: 10/04/2023 (Approximate), Expires: 10/03/2024Start: 10-04-2023 End: 32-23-1725EGN + JACQUELINE PanelANA + JACQUELINE Panel Lab Routine POTS (postural orthostatic tachycardia syndrome) Expected: 10/04/2023 (Approximate), Expires: 10/03/2024[facility] Work Phone: Comment on above:Expected: 10/04/2023 (Approximate), Expires: 10/03/2024Start: 10-04-2023 End: 43-64-0311Xhrqgzngj TestingAutonomic Testing Neurology Routine POTS (postural orthostatic tachycardia syndrome) Expected: 10/04/2023 (Approximate), Expires: 10/03/2024[facility] Work Phone: Comment on above:Expected: 10/04/2023 (Approximate), Expires: 10/03/2024Start: 10-04-2023 End: 10-03-2024 reactive protein [Mass/volume] in Serum or PlasmaC-Reactive Protein Lab Routine POTS (postural orthostatic tachycardia syndrome) Expected: 10/04/2023 (Approximate), Expires: 10/03/2024[facility] Work Phone: Comment on above:Expected: 10/04/2023 (Approximate), Expires: 10/03/2024Start: 10-04-2023 End: 60-12-8164Mfkvzxphh Panel, BloodCarnitine Panel, Blood Lab Routine POTS (postural orthostatic tachycardia syndrome) Expected: 10/04/2023 (Approximate), Expires: 10/03/2024[facility] Work Phone: Comment on above:Expected: 10/04/2023 (Approximate), Expires: 10/03/2024Start: 10-04-2023 End: 85-82-9038Fdgnrkhgefvpsh 3 panel [Mass/volume] - PlasmaCatecholamines, Fractionated, Plasma Lab Routine POTS (postural orthostatic tachycardia syndrome) Expected: 10/04/2023 (Approximate), Expires: 10/03/2024[facility] Work Phone: Comment on above:Expected: 10/04/2023 (Approximate), Expires: 10/03/2024Start: 10-04-2023 End: 22-51-2202XLP W Auto Differential panel - BloodCBC and Auto Differential Lab Routine POTS (postural orthostatic tachycardia syndrome) Expected: (Approximate), Expires: 10/03/2024[facility] Service Area Work Phone: comment on above:Expected: 10/04/2023 (Approximate), Expires: 10/03/2024Start: 10-04-2023 End: 37-59-0926Tfynrz PanelCeliac Panel Lab Routine POTS (postural orthostatic tachycardia syndrome) Expected: 10/04/2023 (Approximate), Expires: 10/03/2024 [facility] Work Phone: Comfzjw on above:Expected: 10/04/2023 (Approximate), Expires: 10/03/2024Start: 10-04-2023 End: 74-70-9246Nnaqrbduacxam [Mass/volume] in Serum or PlasmaCeruloplasmin Lab Routine POTS (postural orthostatic tachycardia syndrome) Expected: 10/04/2023 (Approximate), Expires: 10/03/2024[facility] Work Phone: Comment on above:Expected: 10/04/2023 (Approximate), Expires: 10/03/2024Start: 10-04-2023 End: 48-43-7937Vnmhoessf (Vitamin B12) [Mass/volume] in Serum or PlasmaVitamin B12 Lab Routine POTS (postural orthostatic tachycardia syndrome) Expected: 10/04/2023 (Approximate), Expires: 10/03/2024[facility] Work Phone: Comment on above:Expected: 10/04/2023 (Approximate), Expires: 10/03/2024Start: 10-04-2023 End: 68-87-0790Jvzehxyz Q10 [Mass/volume] in Serum or PlasmaCoenzyme Q10 Lab Routine POTS (postural orthostatic tachycardia syndrome) Expected: 10/04/2023 (Approximate), Expires: 10/03/2024[facility] Work Phone: Comment on above:Expected: 10/04/2023 (Approximate), Expires: 10/03/2024Start: 10-04-2023 End: 70-23-8826Sgfxjzszuainy metabolic 2000 panel - Serum or PlasmaComprehensive Metabolic Panel Lab Routine POTS (postural orthostatic tachycardia syndrome) Expected: 10/04/2023 (Approximate), Expires: 10/03/2024[facility] Work Phone: Comment on above:Expected: 10/04/2023 (Approximate), Expires: 10/03/2024Start: 10-04-2023 End: 61-11-9461Cstrpt [Mass/volume] in Serum or PlasmaCopper, Blood Lab Routine POTS (postural orthostatic tachycardia syndrome) Expected: 10/04/2023 (Yolanda roximate), Expires: 10/03/2024[facility] Work Phone: Comment on above:Expected: 10/04/2023 (Approximate), Expires: 10/03/2024Start: 10-04-2023 End: 91-26-0419Offkni [Mass/volume] in UrineCopper, Urine Lab Routine POTS (postural orthostatic tachycardia syndrome) Expected: 10/04/2023 (Approximate), Expires: 10/03/2024[facility] Work Phone: Comment on above:Expected: 10/04/2023 (Approximate), Expires: 10/03/2024Start: 10-04-2023 End: 55-07-2767Onsncomr kinase [Enzymatic activity/volume] in Serum or Plasma Creatine Kinase Lab Routine POTS (postural orthostatic tachycardia syndrome) Expected: 10/04/2023 (Approximate), Expires: 10/03/2024[facility] Work Phone: Comment on above:Expected: 10/04/2023 (Approximate), Expires: 10/03/2024Start: 10-04-2023 End: 17-98-6248Cepycpfgytel [Presence] in SerumCryoglobulin Lab Routine POTS (postural orthostatic tachycardia syndrome) Expected: 10/04/2023 (Approximate), Expires: 10/03/2024[facility] Work Phone: Comnwdg on above:Expected: 10/04/2023 (Approximate), Expires: 10/03/2024Start: 10-04-2023 End: 11-47-1006HCF0 Dysautonomia; [facility]; DYS-2 - Miscellaneous Test; [facility]; DYS2 - Miscellaneous TestUnKettering Memorial Hospital Work Phone: Comassj on above:Expected: 10/04/2023 (Approximate), Expires: 10/03/2024Start: 10-04-2023 End: 41-18-5804UPE & nerve conductionEMG & nerve conduction Neurology Routine POTS (postural orthostatic tachycardia syndrome) Expected: 10/04/2023 (Approximate), Expires: 10/03/2024[facility] Work Phone: Comment on above:Expected: 10/04/2023 (Approximate), Expires: 10/03/2024Start: 10-04-2023 End: 57-09-6898Qsfkfamyhqh sedimentation rateSedimentation Rate Lab Routine POTS (postural orthostatic tachycardia syndrome) Expected: 10/04/2023 (Approximate), Expires: 10/03/2024[facility] Work Phone: Comment on above:Expected: 10/04/2023 (Approximate), Expires: 10/03/2024Start: 10-04-2023 End: 07-32-0695Dbutzyt tolerance 3 hours panel - Serum or PlasmaGlucose Tolerance Test, 3 hour (Non-) Lab Routine POTS (postural orthostatic tachycardia syndrome) Expected: 10/04/2023 (Approximate), Expires: 10/03/2024 [facility] Work Phone: Comment on above:Expected: 10/04/2023 (Approximate), Expires: 10/03/2024Start: 10-04-2023 End: 19-56-6628Eetnobohtg A1c/Hemoglobin.total in BloodHemoglobin A1C Lab Routine POTS (postural orthostatic tachycardia syndrome) Expected: 10/04/2023 (Approximate), Expires: 10/03/2024[facility] Work Phone: Comment on above:Expected: 10/04/2023 (Approximate), Expires: 10/03/2024Start: 10-04-2023 End: 64-21-4273Onbwfqfyvrje [Moles/volume] in Serum or PlasmaHomocysteine Lab Routine POTS (postural orthostatic tachycardia syndrome) Expected: 10/04/2023 (Approximate), Expires: 10/03/2024[facility] Work Phone: Comment on above:Expected: 10/04/2023 (Approximate), Expires: 10/03/2024Start: 10-04-2023 End: 27-18-3110Ywmaygiypyojup light chains.free panel - SerumKappa/Lambda Free Light Chain, Serum Lab Routine POTS (postural orthostatic tachycardia syndrome) Expected: 10/04/2023 (Approximate), Expires: 10/03/2024[facility] Work Phone: Comment on above:Expected: 10/04/2023 (Approximate), Expires: 10/03/2024Start: 10-04-2023 End: 19-97-3950Vkedrvdzlmdjd, Fractionated, Urine (24 hour or Random) Metanephrines, Fractionated, Urine (24 hour or Random) Lab Routine POTS (postural orthostatic tachycardia syndrome) Expected: 10/04/2023 (Approximate), Expires: 10/03/2024[facility] Work Phone: Comment on above:Expected: 10/04/2023 (Approximate), Expires: 10/03/2024Start: 10-04-2023 End: 08-81-3426Dvemujxqaexgje [Moles/volume] in Serum or PlasmaMethylmalonic Acid Lab Routine POTS (postural orthostatic tachycardia syndrome) Expected: 10/04/2023 (Approximate), Expires: 10/03/2024[facility] Work Phone: Comment on above:Expected: 10/04/2023 (Approximate), Expires: 10/03/2024Start: 10-04-2023 End: 98-58-7210Cggqyaxtag pneumoniae IgG Ab [Units/volume] in Serum by ImmunoassayMycoplasma Pneumoniae Antibody, IgG Lab Routine POTS (postural orthostatic tachycardia syndrome) Expected: 10/04/2023 (Approximate), Expires: 10/03/2024[facility] Work Phone: Comment on above:Expected: 10/04/2023 (Approximate), Expires: 10/03/2024Start: 10-04-2023 End: 93-50-7806Wobzwbpqqp pneumoniae IgM Ab [Units/volume] in Serum by ImmunoassayMycoplasma Pneumoniae Antibody, IgM Lab Routine POTS (postural orthostatic tachycardia syndrome) Expected: 10/04/2023 (Approximate), Expires: 10/03/2024[facility] Work Phone: Comment on above:Expected: 10/04/2023 (Approximate), Expires: 10/03/2024Start: 10-04-2023 End: 05-04-5900Caffhyu Acids, UrineOrganic Acids, Urine Lab Routine POTS (postural orthostatic tachycardia syndrome) Expected: 10/04/2023 (Approximate), Expires: 10/03/2024[facility] Work Phone: Comment on above:Expected: 10/04/2023 (Approximate), Expires: 10/03/2024Start: 10-04-2023 End: 55-03-5215Glteikwjkudhch Ab panel - SerumParaneoplastic Autoantibodies Evaluation Lab Routine POTS (postural orthostatic tachycardia syndrome) Expected: 10/04/2023 (Approximate), Expires: 10/03/2024[facility] Work Phone: Comment on above:Expected: 10/04/2023 (Approximate), Expires: 10/03/2024Start: 10-04-2023 End: 93-97-7135Ssargrbz cell IgG Ab [Units/volume] in SerumAnti-Parietal Cell Antibody Lab Routine POTS (postural orthostatic tachycardia syndrome) Expected: 10/04/2023 (Approximate), Expires: 10/03/2024[facility] Work Phone: Comment on above:Expected: 10/04/2023 (Approximate), Expires: 10/03/2024Start: 10-04-2023 End: 55-32-3631Kxorsrdxowjhdpr, 24 Hour UrinePorphobilinogen, 24 Hour Urine Lab Routine POTS (postural orthostatic tachycardia syndrome) Expected: 10/04/2023 (Approximate), Expires: 10/03/2024[facility] Work Phone: Comment on above:Expected: 10/04/2023 (Approximate), Expires: 10/03/2024Start: 10-04-2023 End: 35-82-5950Zlwhfzrfz phosphate [Moles/volume] in Serum or PlasmaVitamin B6 Lab Routine POTS (postural orthostatic tachycardia syndrome) Expected: 10/04/2023 (Approximate), Expires: 10/03/2024[facility] Work Phone: Comment on above:Expected: 10/04/2023 (Approximate), Expires: 10/03/2024Start: 10-04-2023 End: 84-31-3561Hkuuakblsi factor [Units/volume] in Serum by Nephelometry Rheumatoid Factor Lab Routine POTS (postural orthostatic tachycardia syndrome) Expected: 10/04/2023(Approximate), Expires: 10/03/2024[facility] Work Phone: Comment on above:Expected: 10/04/2023 (Approximate), Expires: 10/03/2024Start: 10-04-2023 End: 57-16-1041Qdhjo Protein Electrophoresis + ImmunofixationSerum Protein Electrophoresis + Immunofixation Lab Routine POTS (postural orthostatic tachycardia syndrome) Expected: 10/04/2023 (Approximate), Expires: 10/03/2024 [facility] Work Phone: Comment on above:Expected: 10/04/2023 (Approximate), Expires: 10/03/2024Start: 10-04-2023 End: 93-74-2978Yptidfw stimulating immunoglobulins [Units/volume] in Serum Thyroid Stimulating Immunoglobulin Lab Routine POTS (postural orthostatic tachycardia syndrome) Expected: 10/04/2023 (Approximate), Expires: 10/03/2024 [facility] Work Phone: Comment on above:Expected: 10/04/2023 (Approximate), Expires: 10/03/2024Start: 10-04-2023 End: 51-14-2461Ratehwkmunwrpsa Ab [Units/volume] in Serum or PlasmaThyroid Peroxidase (TPO) Antibody Lab Routine POTS (postural orthostatic tachycardia syndrome) Expected: 10/04/2023 (Approximate), Expires: 10/03/2024[facility] Work Phone: Comment on above:Expected: 10/04/2023 (Approximate), Expires: 10/03/2024Start: 10-04-2023 End: 89-26-2332Hyrknjghmso receptor Ab [Units/volume] in SerumThyrotropin Receptor Antibody Lab Routine POTS (postural orthostatic tachycardia syndrome) Expected: 10/04/2023 (Approximate), Expires: 10/03/2024[facility] Work Phone: Comment on above:Expected: 10/04/2023 (Approximate), Expires: 10/03/2024Start: 10-04-2023 End: 77-93-8159PAQ with reflex to Free T4 if abnormalTSH with reflex to Free T4 if abnormal Lab Routine POTS (postural orthostatic tachycardia syndrome) Expected: 10/04/2023 (Approximate), Expires: 10/03/2024[facility] Work Phone: Comment on above:Expected: 10/04/2023 (Approximate), Expires: 10/03/2024Start: 10-04-2023 End: 46-56-9473Vzhkj Protein Electrophoresis + ImmunofixationUrine Protein Electrophoresis + Immunofixation Lab Routine POTS (postural orthostatic tachycardia syndrome) Expected: 10/04/2023 (Approximate), Expires: 10/03/2024 [facility] Work Phone: Comment on above:Expected: 10/04/2023 (Approximate), Expires: 10/03/2024Start: 10-04-2023 End: 56-22-6056Uqjvsdv EVitamin E Lab Routine POTS (postural orthostatic tachycardia syndrome) Expected: 10/04/2023 (Approximate), Expires: 10/03/2024 [facility] Work Phone: Comment on above:Expected: 10/04/2023 (Approximate), Expires: 10/03/2024Start: 09-20-2023 End: 98-60-4548oekmngsqpq78/08/2024 8:00 AM EDT [facility] NEUROLOGY [address] [place] [address] [phone] Judy Gamez, MICHAEL [address] [place] [address] TherapyNEUROLOGYComment on above:TherapyStart: 08-10-2023 End: 94-20-9276vfvicvohsf28/28/2024 8:00 AM EDT [facility] NEUROLOGY [address] [place] [address], [place] [phone] Judy Gamez, PSYD [address] [place] [address] TherapyNEUROLOGYComment on above:TherapyStart: 07-27-2023 End: 87-41-0201bakqmbpapp31/14/2024 10:30 AM EDT [facility] NEUROLOGY [address] [place] [address], [place] [phone] Judy Gamez, PSYD [address] [place] [address] TherapyNEUROLOGYComment on above:TherapyStart: 07-11-2023 End: 50-99-5779avmjnvrdxg72/29/2024 3:00 PM EDT [facility] NEUROLOGY [address] [place] [address], [place] [phone] Judy Gamez, PSYD [address] [place] [address] TherapyNEUROLOGYComment on above:TherapyStart: 06-28-2023 End: 94-54-3669dorcroceik68/16/2024 11:00 AM EDT [facility] NEUROLOGY [address] [place] [address], [place] [phone] Judy Gamez, PSYD [address] [place] [address] TherapyNEUROLOGYComment on above:TherapyStart: 06-43-8786Wuvehucdvl Health ScreeningBehavioral Health ScreeningCleBarnesville Hospitaltart: 29-92-9131Cnmczayomc AssessmentDepression AssessmentCleveland ClinicStart: 90-71-5749Whcqn depression screening assessmentDEPRESSION SCREENINGOhioHealth Arthur G.[facility]. [facility], MD, Cancer Centertart: 47-39-1192Axgjx depression screening assessmentDEPRESSION SCREENINGOhioHealth Arthur G.H. Bing, MD, Cancer Centertart: 73-61-6294Zhgqv depression screening assessmentDEPRESSION SCREENING [facility], Cancer Centertart: 97-79-3267Sdxuz-19 Vaccine ()Covid-19 Vaccine ()[facility], Cancer Centertart: 98-76-3369Zoecopavp vaccinationOhioHealth Arthur G.H. Bing, MD, Cancer Centertart: 84-45-5259Uitzh depression screening assessmentDEPRESSION SCREENINGOhioHealth Arthur G.H. Bing, MD, Cancer Centertart: 53-20-8927AjoylikbxOhio State Health Systemtart: 62-93-3540Buzymbjq admissionOhio State Health Systemtart: 38-16-7377Spfydlqa identified in Urine by CultureUrine Harrison Community Hospitaltart: 55-57-2708Elidr depression screening assessmentDEPRESSION SCREENINGOhioHealth Arthur G.H. Bing, MD, Cancer Centertart: 55-27-8376Unrzq depression screening assessmentDEPRESSION SCREENINGOhioHealth Arthur G.H. Bing, MD, Cancer Centertart: 06-12-2022 End: 74-66-4261Ntrrutvfouqgma 3 panel [Mass/volume] - [facility] Work Phone: Comment on above:Expected: 06/12/2022, Expires: 08/12/2022Start: 06-12-2022 End: 27-56-7239AZFFQXOWGZKJW, FREE [place] [facility] Work [facility]: Comment on above:Expected: 06/12/2022, Expires: 08/12/2022Start: 83-98-9379Wmian depression screening assessmentDEPRESSION SCREENINGOhioHealth Arthur G.H. Bing, MD, Cancer Centertart: 36-25-6067Emrfs depression screening assessment DEPRESSION SCREENINGOhioHealth Arthur G.H. Bing, MD, Cancer Centertart: 59-74-6200Pqjrpmvv identified in [facility] by [facility]: 16-99-0921Vddfq depression screening assessmentDEPRESSION SCREENINGOhioHealth Arthur G.[facility], Cancer Centertart: 94-79-2368XSZUFUACDJ ASSESSMENTDEPRESSION ASSESSMENTOhioHealth Arthur G.[facility]. [facility], [facility], Cancer Centertart: 32-40-2080Iqczcwngp vaccinationOhioHealth Arthur G.H. Bing, MD, Cancer Centertart: 40-72-1657ZDCVYTUNOC ASSESSMENTDEPRESSION ASSESSMENTOhioHealth Arthur G.[facility]. [facility], [facility], Cancer Centertart: 29-71-9148XWD Vaccine (1 - 3-dose SCDM series)HPV Vaccine (1 - 3-dose SCDM series)[facility]art: 28-36-5643LNK TESTINGPAP TESTINGOhioHealth Arthur G.H. Bing, MD, Cancer Centertart: 12-67-7992Yawisybaz for malignant neoplasm of cervixOhioHealth Arthur G.H. Bing, MD, Cancer Centertart: 60-14-9955Tgcghtgpb B Vaccine (1 of 3 - 19+ 3-dose series)Hepatitis B Vaccine (1 of 3 - 19+ 3-dose series) [facility]: 76-13-0106Dcbwrqiaj B Vaccines (1 of 3 - 19+ 3-dose series)Hepatitis B Vaccines (1 of 3 - 19+ 3-dose series)[facility]: 97-95-0688Pzonolicsq ScreeningDepression ScreeningOhioHealth Arthur G.[facility]. [facility], MD, Cancer Centertart: 40-41-4931Zopkkmkc mellitus screeningDiabetes ScreeningUnShelby Memorial Hospital: 13-39-7551SSZMUYCFR C SCREENINGHEPATITIS C SCREENINGOhioHealth Arthur G.[facility]. [facility], MD, Cancer Centertart: 17-74-1963Kchbbeyux C screeningHepatitis C ScreeningOhioHealth Arthur G.H. [facility], MD, Cancer Centertart: 36-47-9517YWH SCREENINGHIV SCREENINGOhioHealth Arthur [facility] Cancer Centertart: 49-45-7365TTK screeningHIV ScreeningOhioHealth Arthur G.H. [facility], [facility], Cancer Centertart: 62-14-0787Uxbgfdazi vaccinationVaricella Vaccines (1 of 2 - 13+ 2-dose series) [facility]: 16-21-7517POWKP-19 VACCINE (#1)COVID-19 VACCINE (#1)[facility]art: 47-93-0223UTJTT-19 VACCINE (1)COVID-19 VACCINE (1)[facility]: 96-85-9035XTB Vaccines (1 of 1 - Standard series)MMR Vaccines (1 of 1 - Standard series)[facility] Start: 49-29-6043TFMUP-19 VACCINE (#1)COVID-19 VACCINE (#1)[facility] Start: 93-51-0372XQQPDWJBA B (1 of 3 - 3-dose series)HEPATITIS B (1 of 3 - 3- dose series)[facility]: 41-85-0452Vdbxborqw B Vaccine (1 of 3 - 3- dose series)Hepatitis B Vaccine (1 of 3 - 3-dose series)[facility]art: 50-70-6569SJT screeningHIV ScreeningKettering Health [facility]: 84-22-3756Fckaf panelLipid PanelKettering Health [facility]: 15-40-0324Usulie Adult PhysicalYearly Adult PhysicalUnKettering Memorial Hospital End: 21-97-4727Gizfnrfcf TestingPINON HEALTH CENTER Service Area Work Phone: comment on above:Once for 1 Occurrences starting 12/12/2023 until 12/12/2023ardiovascular function eval w/tilt table w/mntrTILT TABLE EVALUATION Cardiology Routine POTS (postural orthostatic tachycardia syndrome) Ordered: 11/17/2022[facility] Work Phone: Comment on above:Ordered: 11/17/2022 End: 49-27-6222Ugs hrt cornry art/bypass grfts contrst 3d postCTA CORONARY W IVCON Radiology Routine Chest pain, unspecified type 1 Occurrences starting 12/01/2022 until 12/31/2023[facility] Work Phone: Comment on above:1 Occurrences starting 12/01/2022 until 12/31/2023ermatopathology examDermatopathology exam Pathology and Cytology Timed Neoplasm of unspecified behavior of bone, soft tissue, and skin Release Upon Ordering for 1 Occurrences starting 07/17/2024[facility] Work Phone: comment on above:Release Upon Ordering for 1 Occurrences starting 07/17/2024 End: 63-56-0908ADC COMPLETEECG COMPLETE ECG Routine POTS (postural orthostatic tachycardia syndrome) 1 Occurrences starting 11/17/2022 until 11/18/[address] [facility] Work Phone: Comment on above:1 Occurrences starting 11/17/2022 until 11/18/2023ECG COMPLETEECG COMPLETE ECG Routine Abnormal EKG 12/01/2022 12:59 PM EDTCOhioHealth Marion General Hospital Work Phone: mr Unspecified body regionCherrington HospitalPANC ELASTASE, FECALPANC ELASTASE, FECAL Lab Routine Intestinal malabsorption, unspecified type (HCC) Ordered: [facility]2024[facility]Comment on above:Ordered: 08/08/2024[facility] Work Phone: [facility]Fair[facility] Work Phone: Physical performance test/alistair w/reprt ea 15 min PHYSICAL PERFORMANCE TEST Procedures Routine POTS (postural orthostatic tachycardia syndrome) Ordered: 01/16/2022[facility] Work Phone: comment on above:Ordered: 01/16/2022[facility] Immunizations Immunization DateImmunizationNotesCare RltkrtnbCoerbwmg12-23-9634Boqgczj 30 mg/mlSeth Kerrie Other [facility] [employer] Other [id number] toxoid, reduced diphtheria toxoid, and acellular pertussis vaccine, adsorbedSleep Main Work Phone: [facility] CenterNwjjna97-74-0183ptotjhlgh, injectable, quadrivalent, contains preservativePatient ObjectionSeth Kerrie Other [employer] Other [id number] virus vaccine, unspecified formulationDawn Franco RODRIGUEZ Work Phone: [facility] CenterVcdebu25-49-6035sjgjuvqvl, injectable, quadrivalent, contains preservativePatient ObjectionSeth Kerrie Other [employer] Other [id number], injectable, quadrivalent, contains preservativePatient ObjectionSeth Kerrie Other [employer] Other [id number], injectable, quadrivalent, contains preservativePatient ObjectionSeth Kerrie Other [employer] Other [id number], injectable, quadrivalent, contains preservativePatient ObjectionSeth Kerrie Other [employer] Other NEGATED: Highlighted row has not occurred!05-04-2019 influenza virus vaccine, live, attenuated, for intranasal useMulticare Deaconess Hospitaldonald [facility] [phone]-ViiygMercy Health [facility] Convenient CareNEGATED: Highlighted row has not occurred!84-29-9519gndtlshhq, injectable, quadrivalent, contains preservativePatient ObjectionSeth Kerrie Other [employer] Other NEGATED: Highlighted row has not occurred!03-04-2018 influenza, injectable, quadrivalent, contains preservativePatient ObjectionSeth Kerrie Other [employer] Other NEGATED: Highlighted row has not occurred!02-21-2018 influenza, injectable, quadrivalent, contains preservativePatient ObjectionSeth Kerrie Other [email or web address] Other NEGATED: Highlighted row has not occurred!12-18-2017 influenza, injectable, quadrivalent, contains preservativePatient ObjectionSeth Kerrie Other [email or web address] Other NEGATED: Highlighted row has not occurred!04-02-2017 influenza, injectable, quadrivalent, contains preservativePatient ObjectionSeth Kerrie Other [email or web address] Other Payers DatePayer CategoryPayerPolicy [id number] Health InsuranceCARESOURCE MEDICAID [id number]-ray [id number] 2021MedicaidCARESOURCE MEDICAID CARESOURCE MEDICAID [id number] 2020-Present [phone] [address] [place] [address] [id number] [id number] 2021Medicaid (Managed Care)[id number] 2021Medicaid [id number] (not Medicare or Medicaid)[facility] GENERIC [id number] [facility] GENERIC [id number] 2020-Present [phone] [place] [address] [id number] [id number] [id number] 2.0.1.765302.3.579.2.23689-61-7335Efmmjad50098712 2.0.1.147837.3.579.[id number] 2.0.1.290227.3.579.[id number] 2.0.1.275156.3.579.2.55893-33-9175Gfxaclg26300388 2.0.1.511599.3.579.2.50467-72-5814Jueujae83611174 2.0.1.031050.3.579.2.66050-39-7771Kdnfhkp89693618 2.16.840.1.364096.3.579.2.13799-56-3319Gbftggu90574978 2.16.840.1.681560.3.579.2.70931-70-9487Vzdfljz69886053 2.16.840.1.337461.3.579.2.14138-69-1020Dpdyzof33624127 2.16.840.1.798674.3.579.2.58612-16-6160Utevuql37073961 2.16.840.1.690151.3.579.2.54262-16-8713Omaxmau59092768 2.16.840.1.532731.3.579.2.45164-57-5228Cwgohyr6578457 2.16840.1.456720.3.579.2.55405-03-1645Wtwlnnl1984075 2.16.840.1.693253.3.579.2.38116-68-4959Lysdeoa66834887 2.16.840.1.311542.3.579.2.90995-10-9014Xkecouo92901563 2.16840.1.339278.3.579.2.96198-14-4256Ngqnbzz26782888 2.16840.1.776665.3.579.2.09312-49-9493Yzdayzw35965597 2.16.840.1.975705.3.579.2.54218-06-6744Udmcetb07746845 2.16.840.1.288647.3.579.2.85298-02-9692Twcnjkn65189240 2.16.840.1.147532.3.579.2.16694-08-8233Yyddhey94988692 2.16.840.1.420965.3.579.2.615012-06-7772Oxrjsin88335065 2.16.840.1.546946.3.579.2.436116-10-3043Ryajtza00243002 2.16.840.1.326306.3.579.2.849596-48-2480Hvjwhba87542153 2.16.840.1.112861.3.579.2.955398-42-9706Vvhgbke91640935 2.16.840.1.708464.3.579.2.677056-50-3457Yvvqoql09743261 2.16840.1.438050.3.579.2.154103-75-2150Kidddtl07662135 2.840.1.690535.3.579.2.096402-26-7280Vhjleyc33555624 2.840.1.183711.3.579.2.127673-28-3693Vdmtvop39178241 2.840.1.626115.3.579.2.428723-63-8247Qshxgrm97902440 2.16840.1.242597.3.579.2.413443-23-5058Ignzngr33584704 2.840.1.631849.3.579.2.464741-42-3403Vlkwbbm23485334 2.840.1.897599.3.579.2.683185-92-2011Dfvhsem690644070 2.16840.1.161240.3.579.2.708213-83-2742Lnmzcwe079350576 2.16.840.1.178831.3.579.2.125064-33-2414Nteqots790009589 2.16840.1.862266.3.579.2.633195-81-8933Neniirf77280453 2.16.840.1.121541.3.579.2.458498-76-1052Ritrlyz796663341 2.16840.1.835257.3.579.2.610511-88-9583Fjdzlow87442749 2.16840.1.029180.3.579.2.189550-55-5297Zjzbcja39439599 2.16840.1.971421.3.579.2.897962-36-6551Hqhuwvz63505991 2.160.1.942626.3.579.2.897409-50-7022Lyhlkgq31677391 2.160.1.608133.3.579.2.684606-27-4086Raytmmf93996965 2..1.564051.3.579.2.012507-78-1423Ewlfrpv41254531 2.160.1.795415.3.579.2.434878-97-9340Subtlyo20590551 2..1.519432.3.579.2.878679-40-0230Obmftmc74920346 2.160.1.186845.3.579.2.414271-49-4857Ivtynxj09128175 2..1.367227.3.579.2.375295-77-3804Vsqsqbt14809040 2.160.1.742524.3.579.2.1259 [id number] 1960Unknown [id number]onDlrxvltq Jcodnmklq721-96-1779 jf40p8j0-708l-5zed-yc67-g351x5i02i54Kocypjm56624347 2.840.1.229940.3.579.2.603Egyclnk97058795 2.16.840.1.422091.3.579.2.531 Lwchqpr15808219 2.16.840.1.005677.3.579.2.698Vcmizzp58833238 2.16.840.1.228801.3.579.2.607Zihomaq60311760 2.16.840.1.886861.3.579.2.531 Wpmabqf70190271 2.16.840.1.680717.3.579.2.882Sehqlka55457370 2.16.840.1.380032.3.579.2.531 Social History DateTypeDetailFacilityStart: 11-23-2017 End: 80-40-9598Zynxlon smoking status NHISEx-smokerCincinnati Children'S Hospital Medical CenterComment on above:Quit 2 years ago1/2 ppd.Start: 02-12-2011 End: 21-05-9750Yzhyzji of tobacco useCurrent smokerOhioHealth Arthur G.H. Bing, MD, Cancer Centertart: 02-12-2011 End: 39-10-0553Abffeyt of tobacco useCigarette SmokerOhioHealth Arthur G.H. [facility], MD, Cancer Centertart: 11-23-2017 End: 91-67-9931Yuqneavvox smoked current (pack per day) - Reported0.3Cbrecksville va [facility]ille [facility] ClinicStart: 11-23-2017 End: 20-17-1977Eogbhkp use and exposureSmokeless tobacco non-userOhioHealth Arthur G.H. Bing, MD, Cancer Centertart: 03-04-2021 End: 22-50-8617Askhigg intakeCurrent non-drinker of alcohol (finding)[facility] Centertart: 69-23-1312Ckc Assigned At BirthNot on fileOhioHealth Arthur G.H. Bing, MD, Cancer Centertart: 05-07-2021 End: 55-38-9508Axauzhde to SARS-CoV-2 (event)Not sureOhioHealth Arthur G.H. Bing, MD, Cancer Centertart: 05-20-2021 End: 70-74-9245Dmxmmtil to SARS-CoV-2 (event)Unable to assessCincinnati Children'S Hospital Medical Center Start: 05-24-2022 End: 61-96-8400Uzv [facility]: 25-81-8800Krj Assigned At BirthFeOur Lady of Mercy Hospital - Andersontart: 07-17-2017 End: 13-15-6663Djtjx Depression Screening Gsrqtgumql1Wsejqeaft ClinicComment on above:1 ppd.Start: 02-28-2024 End: 04-50-9804AabSoyyig (finding)[facility] Tobacco smoking status NHISTobacco smoking consumption unknownNOMS HealthcareStart: 46-79-7659Ckgcvil smoking status NHISNever smoked tobaccoNOElyria Memorial HospitalNEGATED: Highlighted [facility] SystemNEGATED: Highlighted [facility] Medical Equipment Procedure CodeEquipment CodeEquipment Original TextEquipment IdentifierDates Syringe With Needle, Safety (Bd Integra Syringe) 3 mL 25 gauge x 1 syringe Start: 87-57-4194Smvlmfh With Needle, Safety (Bd Integra Syringe) 3 mL 25 gauge x 1 syringeStart: 67-09-3774Kdevziw With Needle, Safety (Bd Integra Syringe) 3 mL 25 gauge x 1 syringeStart: 78-40-9689Lctxxdg With Needle, Safety (Bd Integra Syringe) 3 mL 25 gauge x 1 syringeStart: 21-47-3074Szqefol With Needle, Safety (Bd Integra Syringe) 3 mL 25 gauge x 1 syringeStart: 75-03-2120Epfubly With Needle, Safety (Bd Integra Syringe) 3 mL 25 gauge x 1 syringeStart: 12-07-2023 Syringe With Needle, Safety (Bd Integra Syringe) 3 mL 25 gauge x 1 syringe Start: 71-17-4051Xaifapm With Needle, Safety (Bd Integra Syringe) 3 mL 25 gauge x 1 syringeStart: 60-24-3409Agjpylb With Needle, Safety (Bd Integra Syringe) 3 mL 25 gauge x 1 syringeStart: 18-43-5600Vqpmyjb With Needle, Safety (Bd Integra Syringe) 3 mL 25 gauge x 1 syringeStart: 44-50-5872Nclpgup With Needle, Safety (Bd Integra Syringe) 3 mL 25 gauge x 1 syringeStart: 13-08-4745Ninbgca With Needle, Safety (Bd Integra Syringe) 3 mL 25 gauge x 1 syringeStart: 12-07-2023 Syringe With Needle, Safety (Bd Integra Syringe) 3 mL 25 gauge x 1 syringe Start: 61-93-9485Tlvrozz With Needle, Safety (Bd Integra Syringe) 3 mL 25 gauge x 1 syringeStart: 15-80-8780Hikzred With Needle, Safety (Bd Integra Syringe) 3 mL 25 gauge x 1 syringeStart: 19-15-8133Tfthqfr With Needle, Safety (Bd Integra Syringe) 3 mL 25 gauge x 1 syringeStart: 26-55-8413Okksolm With Needle, Safety (Bd Integra Syringe) 3 mL 25 gauge x 1 syringeStart: 28-55-6852Enincsv With Needle, Safety (Bd Integra Syringe) 3 mL 25 gauge x 1 syringeStart: 12-07-2023 Syringe With Needle, Safety (Bd Integra Syringe) 3 mL 25 gauge x 1 syringe Start: 78-24-4986Fvuwvve With Needle, Safety (Bd Integra Syringe) 3 mL 25 gauge x 1 syringeStart: 45-59-3743Rkadhfy With Needle, Safety (Bd Integra Syringe) 3 mL 25 gauge x 1 syringeStart: 31-62-4784Ivszytv With Needle, Safety (Bd Integra Syringe) 3 mL 25 gauge x 1 syringeStart: 61-90-0190Fwbablz With Needle, Safety (Bd Integra Syringe) 3 mL 25 gauge x 1 syringeStart: 58-42-1952Seyxkor With Needle, Safety (Bd Integra Syringe) 3 mL 25 gauge x 1 syringeStart: 12-07-2023 Syringe With Needle, Safety (Bd Integra Syringe) 3 mL 25 gauge x 1 syringe Start: 63-57-0913Xenrlfy With Needle, Safety (Bd Integra Syringe) 3 mL 25 gauge x 1 syringeStart: 17-19-3644Vmpbtna With Needle, Safety (Bd Integra Syringe) 3 mL 25 gauge x 1 syringeStart: 95-21-4689Taxncjb With Needle, Safety (Bd Integra Syringe) 3 mL 25 gauge x 1 syringeStart: 46-18-9533Nldpfpn With Needle, Safety (Bd Integra Syringe) 3 mL 25 gauge x 1 syringeStart: 12-07-2023 Goals DatePatient GoalDesired Activity/StatePersonal health goal Functional Status UjkpMuwrdpblhdVnnjfhBbrolnsg65-33-2471Uidplkgmjq StatusN/[facility]ient Dbxr93-27-2838Fxounmwbma StatusN/[facility]08-04-2023Functional statusFunctional Status CommentUniversity Hospitals Elyria Medical Center Work Phone: [phone] 834-93840137341-81-5423Uzubtkztdz statusPatient at Baseline [facility] Work Phone: Mental Status VdisFszzzwwmssKietwrDfrhfskb86-65-3386Uclktafne functionCognitive Status Patient at BaselineUniversity Hospitals Elyria Medical Center Work Phone: Clinical Notes 04-07-2018 to 12-12-2024 Note Date & FevjDgudGwqaziby05-87-5221 NoteHNO ID: [id number] Author: JUDY GAMEZ PSYD Service: ? Author Type: Psychologist Type: Progress Notes Filed: 12/12/2024 10:35 Note Text: GENERAL PSYCHOLOGY Session #: 49 Visit Type:The patient consented to a virtual visit and their location was confirmed. SUBJECTIVE: Discussed recent stress regarding a professor not following her accommodations and how she handled it She expressed she is considering legal action related to this, she has no intention of harming the professor Professors are great this semester, has been able to get ahead in one class Discussed healing - she doubts she would ever heal, there has been so much occurring just in the last 5 years - has been getting body aches, sore, frozen Reports startling easily, in a hypervigilant state Still feeling depressed and having suicidal ideation, clarifies that she is not actively trying to kill herself, having passive thoughts of wanting to go to sleep and not wake up PATIENT DATA: Generalized Anxiety Disorder Scale (ROSE MARIE-7) 08/06/2024 09/19/2024 12/12/2024 ROSE MARIE - 7 SCORES Score 18 17 19 (0-4) minimal anxiety, (5-9) mild anxiety, (10-14) moderate anxiety, (15-21) severe anxiety Patient Health Questionnaire (PHQ-9) 08/06/2024 09/19/2024 12/12/2024 PHQ-9 Score 22 22 21 (0-4) minimal depression, (5-9) mild depression, (10-14) moderate depression, (15-19) moderately severe depression, (20-27) severe depression PTSD Checklist for DSM-5 (PCL-5) 10/18/2021 07/27/2023 12/25/2023 PCL-5 PCL-5 Total Score 45 59 65 1. Repeated, disturbing, and unwanted memories of the stressful experience? Quite a bit Quite a bit Quite a bit 2. Repeated, disturbing dreams of the stressful experience? Not at all Quite a bit Moderately 33 = proposed cut-off score for PTSD symptoms warranting further investigation until further psychometric work is available <33 = subthreshold symptoms of PTSD >24 PTSD is a clinical concern, 33-36 probable PTSD, >37 significant PTSD PROMIS [facility] 06/26/2024 09/19/2024 12/12/2024 PROMIS [facility] - (T-Scores - the mean of general population = 50. Five points is a clinically meaningful difference.) Physical T-Score 32.4 29.6 29.6 Mental T-Score 36.3 21.2 21.2 OBJECTIVE: Affect and behavior were within normal limits for the situation. Mental Status Exam: General/Sensorium: Alert and AND interactive - Appearance: Appears well groomed and stated age - Demeanor: Appropriately interactive - Motor Activity: Normal - Speech: Appropriate - Affect: Euthymic - Thought Process: Linear, logical, and goal-directed - Associations: Normal - Thought Content: Appropriate with no SI/HI/AVH - Cognition: Appears intact in regards to memory, attention/concentration, fund of knowledge and language skills - Insight: Good - Judgment: Good - ASSESSMENT: Patient was actively engaged in the session and demonstrated motivation towards therapy goals. Will likely benefit from continued psychotherapy to support management of mood and anxiety. 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 Judy [facility]zMet[facility]Health [facility]10[facility]28[facility] History of Present illness Narrative* WILDER Salvador - 12/09/2024 9:20 AM EDT Images from the original note were not included. Chemical Peel Location: Entire face Date of last peel: One month ago Type of peel: 35% Glycolic Acid Response: Mild redness and itching Established patient All pertinent medical history, medications, and allergies were reviewed. General Exam: alert, oriented to person, place, and time, normal affect, well appearing Unaccompanied A focused exam completed based on patient reported problems, see below: Skin Exam 1. ACNE VULGARIS Head - Anterior (Face) Chemical Peel Pre-Procedure: The procedure was explained to patient and all questions were answered. Risks were reviewed, including the risk of dyspigmentation. Written consent was obtained today or at a prior visit. Procedure: The treatment area was cleansed with soap & water. A large cotton- tipped applicator was used to apply the peel solution uniformly over the area. Care was given to avoid the periorbitaland nasal creases. The patient tolerated the procedure well Indication: Acne Treatment number: 2 Treated Area(s): entire face Solution: 35% Glycolic Acid-4 minutes Neutralization: yes Post procedure: Instructed to discontinue all topical medications for the next 3 days. Post-procedure instructions reviewed with patient, Instructed to discontinue all topical medications for the next 2 days, Post-Procedure Instructions reviewed with patient. Existing Treatments - tretinoin (Retin-A) 0.025 % cream - Apply to face, once daily at evening/night time, 30 day supply Next Visit: as scheduled documented in this encounterFreeman Heart InstituteMpszzwowbs97-86-6079 NoteSYNCOPE AND [facility]OMIC [facility]ORD[facility] Reason for Consultation: Postural orthostatic tachycardia syndrome HPI: Yolanda Aparicio is a 29 y.o. year old with past medical history of Postural orthostatic tachycardia syndrome. The patient states that she was well until 2019 when she suffered a severe COVID-19 action. She developed a severe pneumonia. She never really recovered from this. Chief is states that she felt like her lung was in that she has greater . She was later diagnosed with long COVID and in October 2020 because of persistent tach cardia was she was diagnosed with postural orthostatic tachycardia syndrome. Since that time she has continued to experience palpitations and tachycardia, shortness of breath, dizziness and exercise intolerance. In addition she is experience periods of chest pain nausea and has increasing issues with sleep. She experiences what she refers to as internal tremors . And she also has severe fatigue and brain fog. She was tried on ivabradine but did not tolerate this. She also suffers from a number of gastrointestinal complaints. After carefully reviewing her history, physical findings and the very detailed and comprehensive evaluations that she has undergone thus far I concur with her diagnosis of postural orthostatic tachycardia syndrome as a consequence of a long COVID infection. To try to address some of these difficulties I am going to start her on pyridostigmine beginning at 30 mg orally 3 times daily and then titrate the dose up to 60 mg 3 times daily depending on its efficacy and her tolerance of it. I told her to contact us if any problems occur. Another possibility may be to try her on the drug droxidopa beginning at 100 mg orally 3 times daily. PMH: Medical History[1] PSH: Surgical History[2] SH: Social Drivers of Health Tobacco Use: Medium Risk (11/10/2024) Patient History Smoking Tobacco Use: Former Smokeless Tobacco Use: Never Passive Exposure: Past Alcohol Use: Not on file Financial Resource Strain: Not on file Food Insecurity: Not on file Transportation Needs: Not on file Physical Activity: Not on file Stress: Not on file Social Connections: Not on file Intimate Partner Violence: Not At Risk (11/10/2024) Humiliation, Afraid, Rape, and Kick questionnaire Fear of Current or Ex-Partner: No Emotionally Abused: No Physically Abused: No Sexually Abused: No Depression: Not at risk (11/10/2024) PHQ-2 PHQ-2 Score: 1 Recent Concern: Depression - At risk (09/19/2024) Received from [facility] PHQ-2 PHQ-2 score: 6 Housing Stability: Not on file Utilities: Not on file Health Literacy: Not on file Meds: Medications Ordered Prior to Encounter[3] ROS: Review of Systems Constitutional: Positive for malaise/fatigue. HENT: Positive for tinnitus. Cardiovascular: Positive for chest pain, dyspnea on exertion, near-syncope and palpitations. Endocrine: Positive for cold intolerance and heat intolerance. Musculoskeletal: Positive for joint pain and neck pain. Gastrointestinal: Positive for nausea. Neurological: Positive for difficulty with concentration, dizziness, headaches, light-headedness and tremors. Psychiatric/Behavioral: Positive for depression. The patient has insomnia and is nervous/anxious. Physical Exam: Constitutional General Appearance: well-nourished, well-developed, appears stated age Level of Distress: comfortable Psychiatric Mental Status: alert, normal affect Orientation: oriented to time, place, and person Insight: good judgement Eyes Lids and Conjunctivae: non-injected, no xanthelasma ENMT Ears: no lesions on external ear Nose: no lesions on external nose Oropharynx: no cyanosis, no pallor Neck Neck: supple, trachea midline Carotid Arteries: bilateral normal upstroke, no bruits Jugular Veins: normal jugular venous pressure Thyroid: not enlarged Lungs Respiratory Effort: unlabored Chest Exam: normal curvature, no thoracic deformity Auscultation: clear, no wheezing, no rales, no rhonchi Cardiovascular Rate And Rhythm: regular Heart Sounds: normal S1, normal s2, no gallop Systolic Murmur: not heard Diastolic Murmur: not heard Extremities: no cyanosis, no edema, no peripheral signs of emboli Peripheral Pulses Radial Pulse: normal Abdomen Inspection and Palpation: soft, non distended, no bruit, non tender Musculoskeletal Inspection: no joint swelling Neurologic Gait: normal gait Skin Inspection and Palpation: warm and dry Nails: no clubbing Labs: @LABRESULTS@ EKG: No results found for this or any previous visit (from the past 4464 hours). Echo: No echocardiogram results found for the past 12 months Stress test: Coronary angiogram: @CATH@ Diagnostic Imaging: No images are attached to the encounter. Assessment and Plan: Postural orthostatic tachycardia syndrome: Chronic and not stable will start on pyridostigmine COVID-19 long- (more content not included)...[facility] 10-03-2024 History of Present illness Narrative* Doris Bejarano, [employer] - 11/03/2024 10:05 AM EDT Chemical Peel Location: Entire face Date of last peel: One month ago Type of peel: 35% Glycolic Acid Response: Mild redness and itching Established patient All pertinent medical history, medications, and allergies were reviewed. General Exam: alert, oriented to person, place, and time, normal affect, well appearing Unaccompanied A focused exam completed based on patient reported problems, see below: Skin Exam 1. ACNE VULGARIS Head - Anterior (Face) Scattered comedones and inflammatory pustules. Chemical Peel Pre-Procedure: The procedure was explained to patient and/or parent and all questions were answered. Risks were reviewed, including the risk of dyspigmentation. Written consent was obtained today or at a prior visit. Procedure: The treatment area was cleansed with soap & water. A large cotton- tipped applicator was used to apply the peel solution uniformly over the area. Care was given to avoid the periorbitaland nasal creases. The patient tolerated the procedure well Indication: Acne Treatment number: 1 Treated Area(s): entire face Solution: 35% Glycolic Acid-2 minutes Neutralization: yes Post procedure: Instructed to discontinue all topical medications for the next 3 days. Post-procedure instructions reviewed with patient, Instructed to discontinue all topical medications for the next 2 days, Post-Procedure Instructions reviewed with patient. Related Medications tretinoin (Retin-A) 0.025 % cream Apply to face, once daily at evening/night time, 30 day supply Next Visit: as scheduled documented in this encounterFreeman Heart [id number] NoteConsent: The risks and benefits of intralesional kenalog [...] or problems that occur. Areas injected: Right Upper Back Concentration injected: See MAR for details on administration. The patient/parents were instructed to massage the injection site(s) following the procedure. Instructed to call for any questions or problems that occur. Amount injected (mL): 0.2 of K10 # lesions injected: 1NCarondelet [id number] NoteConsent: The risks and benefits of intralesional kenalog were discussed prior to the procedure. Specifically, the risk of skin atrophy was reviewed. It was also emphasized that multiple treatments may be necessary. Verbal consent was obtained from the patient/parent. Method: See [facility] for details on administration. The patient/parents were instructed to massage the injection site(s) following the procedure. Instructed to call for any questions or problems that occur. Areas injected: Right Upper Back Concentration injected: See [facility] for details on administration. The patient/parents were instructed to massage the injection site(s) following the procedure. Instructed to call for any questions or problems that occur. Amount injected (mL): 0.2 of K10 # lesions injected: 1NCarondelet [id number] History of Present illness Narrative* ADELAIDE Rosales - 10/02/2024 9:50 AM EDT Follow up Diagnosis: Acne Location: face Last visit: 3 months ago Symptoms: blackheads Status: no change Treatments tried and failed: OTC Acne Products Current treatment: Tretinoin cream All pertinent medical history, medications, and allergies were reviewed. Skin Exam 1. ACNE VULGARIS Head - Anterior (Face) Scattered comedones and inflammatory pustules. The patient was counseled that it may take up to 2-3 months to notice significant improvement of the acne. The use of non-comedogenic cleansers and moisturizers was recommended. Acne treatment plan given today. Continue Tretinoin cream 0.025%. Apply pea size amount to face every other night until tolerated. Discussed non-comedogenic cleansers and exfoliants today. Chemical Peel Pre-Procedure: The procedure was explained to patient and/or parent and all questions were answered. Risks were reviewed, including the risk of dyspigmentation. Written consent was obtained today or at a prior visit. Procedure: The treatment area was cleansed with soap & water. A large cotton- tipped applicator was used to apply the peel solution uniformly over the area. Care was given to avoid the periorbitaland nasal creases. The patient tolerated the procedure well Indication: Acne Treatment number: 1 Treated Area(s): entire face Solution: 35% Glycolic Acid-2 minutes Neutralization: yes Post procedure: Instructed to discontinue all topical medications for the next 3 days. Post-procedure instructions reviewed with patient, Instructed to discontinue all topical medications for the next 2 days, Post-Procedure Instructions reviewed with patient. Related Medications tretinoin (Retin-A) 0.025 % cream Apply to face, once daily at evening/night time, 30 day supply 2. KELOID SCAR Right Upper Back Erythematous, firm dermal papule/plaque Given symptoms, recommend treatment with ILK today. ILK today, see MAR for details. Intralesional Kenalog Injection - Right Upper Back Consent: The risks and benefits of intralesional kenalog were discussed prior to the procedure. Specifically, the risk of skin atrophy was reviewed. It was also emphasized that multiple treatments may be necessary. Verbal consent was obtained from the patient/parent. Method: See [facility] for details on administration. The patient/parents were instructed to massage the injection site(s) following the procedure. Instructed to call for any questions or problems that occur. Areas injected: Right Upper Back Concentration injected: See MAR for details on administration. The patient/parents were instructed to massage the injection site(s) following the procedure. Instructed to call for any questions or problems that occur. Amount injected (mL): 0.2 of K10 # lesions injected: 1 triamcinolone acetonide (Kenalog) injection 10 mg - Right Upper Back Next Visit: 1 month, chemical peel and 3 month, acne follow up documented in this encounterFreeman Heart [id number] Evaluation note* Diagnosis Onset Date Resolution Status Admit Date Anxiety acuteAugust 2024 8:22amPOTS (postural orthostatic tachycardia syndrome) acuteAugust 2024 8:22amAnxietyacuteAugust 2024 11:21amPOTS (postural orthostatic tachycardia syndrome)acuteAugust 2024 11:21amPTSD (post- traumatic stress disorder)acuteAugust 2024 11:21amCOVID-19 long hauler chronicAugust 2024 11:21amAcute viral sinusitisnoneactiveSeptember 2024 12:47pmGeneralized anxiety disorderacuteSeptember 2024 2:13pmPost- nasal dripacuteSeptember 2024 2:13pmDizzinessnoneactiveSeptember 2024 2:13pmHeadachenoneactiveSeptember 2024 2:13pmAcute maxillary sinusitis, unspecifiedacuteSeptember 2024 12:31pmAbnormal weight gainacute November 20, 2024 8:53amAnxietyacuteOctober 2024 8:53amBMI 28.0-28.9,adult acuteOctober 2024 8:53amChronic fatigue syndromeacuteOctober 2024 8:53amDepressionacuteOctober 2024 8:53amDietary surveillance and counseling acuteNovember 20, 2024 8:53amExercise counselingacuteOctober 2024 8:53amOCD (obsessive compulsive disorder)acuteOctober 2024 8:53amOverweight (BMI 25.0-29.9)acuteOctober 2024 8:53amPost-COVID syndromeacuteOctober 2024 8:53amPOTS (postural orthostatic tachycardia syndrome)acuteOctober 2024 8:53amPTSD (post-traumatic stress disorder)acuteOctober 2024 8:53amPOTS (postural orthostatic tachycardia syndrome)acuteOctober 2024 10:09amCOVID- 19 long haulerchronicOctober 2024 10:09amGeneralized weaknessnoneactive November 25, 2024 10:09am [facility] Work Phone: 1(933) 478-748808-14-2025 Evaluation note* Diagnosis Onset Date Resolution Status Admit Date Anxiety acuteAugust 2024 8:22amPOTS (postural orthostatic tachycardia syndrome) acuteAugust 2024 8:22amAnxietyacuteAugust 2024 11:21amPOTS (postural orthostatic tachycardia syndrome)acuteAugust 2024 11:21amPTSD (post- traumatic stress disorder)acuteAugust 2024 11:21amCOVID-19 long hauler chronicAugust 2024 11:21amAcute viral sinusitisnoneactiveSeptember 2024 12:47pmGeneralized anxiety disorderacuteSeptember 2024 2:13pmPost- nasal dripacuteSeptember 2024 2:13pmDizzinessnoneactiveSeptember 2024 2:13pmHeadachenoneactiveSeptember 2024 2:13pmAcute maxillary sinusitis, unspecifiedacuteSeptember 2024 12:31pmAbnormal weight gainacute November 20, 2024 8:53amAnxietyacuteOctober 2024 8:53amBMI 28.0-28.9,adult acuteOctober 2024 8:53amChronic fatigue syndromeacuteOctober 2024 8:53amDepressionacuteOctober 2024 8:53amDietary surveillance and counseling acuteOctober 2024 8:53amExercise counselingacuteOctober 2024 8:53amOCD (obsessive compulsive disorder)acuteOctober 2024 8:53amOverweight (BMI 25.0-29.9)acuteOctober 2024 8:53amPost-COVID syndromeacuteOctober 2024 8:53amPOTS (postural orthostatic tachycardia syndrome)acuteOctober 2024 8:53amPTSD (post-traumatic stress disorder)acuteOctober 2024 8:53amPOTS (postural orthostatic tachycardia syndrome)acuteOctober 2024 10:09amCOVID- 19 sandhya ellingtonulerchronicOctober 2024 10:09amGeneralized weaknessnoneactive November 25, 2024 10:09amAbnormal weight gainacuteNovember 2024 10:38am AnxietyacuteNovember 2024 10:38amBMI 28.0-28.9,adultacuteNovember 2024 10:38amChronic fatigue syndromeacuteNovember 2024 10:38amDepression acuteNovember 2024 10:38amDietary surveillance and counselingacuteNovember 2024 10:38amExercise counselingacuteNovember th, 2025 10:38amOCD (obsessive compulsive disorder)acuteDecember 23, 2024 10:38amOverweight (BMI 25.0-29.9)acuteDecember 23, 2024 10:38amPost-COVID syndromeacuteDecember 23, 2024 10:38amPOTS (postural orthostatic tachycardia syndrome)acuteDecember 23, 2024 10:38amPTSD (post-traumatic stress disorder)[facility] 2024 10:38am [facility] Work Phone: 1(235) 955-501508-08-2025 NoteHNO ID: [id number] Author: JUDY GAMEZ PSYD Service: ? Author Type: Psychologist Type: Progress Notes Filed: 09/19/2024 09:07 Note Text: GENERAL PSYCHOLOGY Session #: 48 Visit Type:The patient consented to a virtual visit and their location was confirmed. Parked at [facility]. SUBJECTIVE: Discussed difficulty with school - brain fog is making it difficult for her to remember to notify professors about things, has been able to get one deadline extension, however, professor has been difficult to work with, she notes it is ableist Feeling extreme depression Suicidal thoughts, intrusive thoughts with no specific active plan for suicide, thoughts like I should drive my car off a bridge or life not worth living, but not currently intending to do this PATIENT DATA: Generalized Anxiety Disorder Scale (ROSE MARIE-7) 07/24/2024 08/06/2024 09/19/2024 ROSE MARIE - 7 SCORES Score 11 18 17 (0-4) minimal anxiety, (5-9) mild anxiety, (10-14) moderate anxiety, (15-21) severe anxiety Patient Health Questionnaire (PHQ-9) 07/24/2024 08/06/2024 09/19/2024 PHQ-9 Score 17 22 22 (0-4) minimal depression, (5-9) mild depression, (10-14) moderate depression, (15-19) moderately severe depression, (20-27) severe depression PTSD Checklist for DSM-5 (PCL-5) 10/18/2021 07/27/2023 12/25/2023 PCL-5 PCL-5 Total Score 45 59 65 1. Repeated, disturbing, and unwanted memories of the stressful experience? Quite a bit Quite a bit Quite a bit 2. Repeated, disturbing dreams of the stressful experience? Not at all Quite a bit Moderately 33 = proposed cut-off score for PTSD symptoms warranting further investigation until further psychometric work is available <33 = subthreshold symptoms of PTSD >24 PTSD is a clinical concern, 33-36 probable PTSD, >37 significant PTSD PROMIS Global [facility] 03/26/2024 06/26/2024 09/19/2024 PROMIS Global Health - (T-Scores - the mean of general population = 50. Five points is a clinically meaningful difference.) Physical T-Score 23.5 32.4 29.6 Mental T-Score 21.2 36.3 21.2 OBJECTIVE: Affect and behavior were within normal limits for the situation. Mental Status Exam: General/Sensorium: Alert and AND interactive - Appearance: Appears well groomed and stated age - Demeanor: Appropriately interactive - Motor Activity: Normal - Speech: Appropriate - Affect: Euthymic - Thought Process: Linear, logical, and goal-directed - Associations: Normal - Thought Content: Appropriate with no SI/HI/AVH - Cognition: Appears intact in regards to memory, attention/concentration, fund of knowledge and language skills - Insight: Good - Judgment: Good - ASSESSMENT: Patient was actively engaged in the session and demonstrated motivation towards therapy goals. Suicide risk was assessed today. Pt does not appear at imminent risk of suicide due to future oriented thinking, no current active plan of suicide. We discussed DBT IOP, she currently does not have the energy to do this. Will likely benefit from continued psychotherapy to process traumatic stress. DIAGNOSIS: (F34.1) Persistent depressive disorder with anxious distress, currently severe (primary encounter diagnosis) (F43.10) PTSD (post-traumatic stress disorder) Plan: PROVIDER ORDERED FOLLOW UP TREATMENT MODALITIES: DBT, ACT PROGRESS TO DATE: Intermediate Progress: Progress Short Term Condition: Progress GOALS/OBJECTIVES/INTERVENTIONS: Validate emotional experience Support valued action Approximately 55 minutes were spent with the patient doing therapy. Judy Gamez PSYDKettering Health [id number] Telephone encounter Note* Telephone Encounter - Judy Gamez PSYD - 09/16/2024 9:35 AM EDT Opened in error. [facility]08-05-2025 Miscellaneous Notes* Telephone Encounter - Judy Gamez PSYD - 09/16/2024 9:35 AM EDT Opened in error. documented in this encounterCinc[facility]07-[facility]25 Evaluation note* Diagnosis Onset Date Resolution Status Admit Date Acute viral sinusitis noneactiveJuly 2024 9:01amUrinary frequencynoneactiveJuly 2024 9:01amAnxietyacuteAugust 2024 8:22amPOTS (postural orthostatic tachycardia syndrome)acuteAugust 2024 8:22amAnxietyacuteAugust 2024 11:21amPOTS (postural orthostatic tachycardia syndrome)acuteAugust 2024 11:21amPTSD (post-traumatic stress disorder)acuteAugust 2024 11:21amCOVID-19 long haulerchronicAugust 2024 11:21amAcute viral sinusitisnoneactiveSeptember 2024 12:47pmGeneralized anxiety disorderacuteSeptember 2024 2:13pm Post-nasal dripacuteSeptember 2024 2:13pmDizzinessnoneactiveSeptember 2024 2:13pmHeadachenoneactiveSeptember 2024 2:13pm [facility] Work Phone: 1(938) 833-517107-16-2025 Evaluation note* Diagnosis Onset Date Resolution Status Admit Date Acute viral sinusitis noneactiveJuly 2024 9:01amUrinary frequencynoneactiveJuly 2024 9:01amAnxietyacuteAugust 2024 8:22amPOTS (postural orthostatic tachycardia syndrome)acuteAugust 2024 8:22amAnxietyacuteAugust 2024 11:21amPOTS (postural orthostatic tachycardia syndrome)acuteAugust 2024 11:21amPTSD (post-traumatic stress disorder)acuteAugust 2024 11:21amCOVID-19 long haulerchronicAugust 2024 11:21amAcute viral sinusitisnoneactiveSeptember 2024 12:47pmGeneralized anxiety disorderacuteSeptember 2024 2:13pm Post-nasal dripacuteSeptember 2024 2:13pmDizzinessnoneactiveSeptember 2024 2:13pmHeadachenoneactiveSeptember 2024 2:13pmAcute maxillary sinusitis, unspecifiedacuteSeptember 2024 12:31pmAbnormal weight gainacute November 20, 2024 8:53amAnxietyacuteOctober 2024 8:53amBMI 28.0-28.9,adult acuteOctober 2024 8:53amChronic fatigue syndromeacuteOctober 2024 8:53amDepressionacuteOctober 2024 8:53amDietary surveillance and counseling acuteOctober 2024 8:53amExercise counselingacuteOctober 2024 8:53amOCD (obsessive compulsive disorder)acuteOctober 2024 8:53amOverweight (BMI 25.0-29.9)acuteOctober 2024 8:53amPost-COVID syndromeacuteOctober 2024 8:53amPOTS (postural orthostatic tachycardia syndrome)acuteOctober 2024 8:53amPTSD (post-traumatic stress disorder)acuteOctober 2024 8:53am [facility] Work Phone: 1(184) 375-746807-16-2025 Evaluation note* Diagnosis Onset Date Resolution Status Admit Date Acute viral sinusitis noneactiveJuly 2024 9:01amUrinary frequencynoneactiveJuly 2024 9:01amAnxietyacuteAugust 2024 8:22amPOTS (postural orthostatic tachycardia syndrome)acuteAugust 2024 8:22amAnxietyacuteAugust 2024 11:21amPOTS (postural orthostatic tachycardia syndrome)acuteAugust 2024 11:21amPTSD (post-traumatic stress disorder)acuteAugust 2024 11:21amCOVID-19 long haulerchronicAugust 2024 11:21amAcute viral sinusitisnoneactiveSeptember 2024 12:47pmGeneralized anxiety disorderacuteSeptember 2024 2:13pm Post-nasal dripacuteSeptember 2024 2:13pmDizzinessnoneactiveSeptember 2024 2:13pmHeadachenoneactiveSeptember 2024 2:13pmAcute maxillary sinusitis, unspecifiedacuteSeptember 2024 12:31pmAbnormal weight gainacute November 20, 2024 8:53amAnxietyacuteOctober 2024 8:53amBMI 28.0-28.9,adult acuteOctober 2024 8:53amChronic fatigue syndromeacuteOctober 2024 8:53amDepressionacuteOctober 2024 8:53amDietary surveillance and counseling acuteOct2024 8:53amExercise counselingacuteOctober 2024 8:53amOCD (obsessive compulsive disorder)acuteOctober 2024 8:53amOverweight (BMI 25.0-29.9)acuteOctober 2024 8:53amPost-COVID syndromeacuteOctober 2024 8:53amPOTS (postural orthostatic tachycardia syndrome)acuteOctober 2024 8:53amPTSD (post-traumatic stress disorder)acuteOctober 2024 8:53am Generalized weaknessnoneactiveOctober 2024 10:09am [facility] Work Phone: 1(623) 829-609207-03-2025 History of Present illness Narrative* Rhett Baez MD - 08/14/2024 4:30 PM EDT [facility] AUTONOMIC PROGRAM AUTONOMIC FOLLOW-UP VISIT Rhett schulz MD Professor of Neurology [facility] Senior Attending Physician- [facility] [employer], [employer] [place], [place] [employer] [facility] [place] [id number] Office: [phone] Anti Air Warfare Operations Officer: Bruna Abebe (email: [email or web address]) Patient Information Date of : 1995 Home Address: [address] [place] [id number] Primary Care Physician: No Assigned PCP Generic Provider, Referring Physician: No referring provider defined for this encounter. 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 She complains of orthostatic lightheadedness but also and mainly excessive fatigue. Fatigue is such as it prevents her on certain days from getting out of bed or the couch. She lacks motivation to participate fully in her treatment plan as she puts it. She feels that the health system lacks empathy as it tends to put all the burden of getting out and being treated on her shoulders solely and she is upset about this. Additionally, she feels that her POTS training was suboptimal and discontinued prematurely, after only 2 months. She is following some of the 5 conservatives but did not raise the HOB, does not do water jogging and she eats salt at high doses at once. PLAN/RECOMMENDATIONS: We agreed on the following: Improve the conservatives Restart POTS training with a competent POTS sap trainer (Keeley Cosme, PT) Start midodrine as this drug was tried before and has helped her fatigue. However it raised her BP to above 140 mmHg systolic with accompanying flushing. She does not remember the dose she was taking, so we will start very low (5 mg bid) and move up. We hope this treatment will improve both her POTS symptoms She will also start taking L-carnitine, which is essential for optimal mitochondrial function and may help with fatigue as well. HPI Yolanda Aparicio is a 29 y.o. female presenting to the [facility] for a follow-up on treatment of post-Covid POTS. I spent 40 minutes with the patient, at least 50% of which were spent on treatment management and education. Rhett schulz MD documented in this encounterGlen[facility]igh Hospital Work Phone: 1(950) 650-959806-27-2025 Instructions* Patient Instructions* David Kevin Jr., - 08/08/2024 9:50 AM EDT Start pantoprazole 40 mg daily Maintain Zofran Check labs documented in this encounterCinc[facility]06-27-2025 History of Present illness Narrative* David Kevin Jr., - 08/08/2024 9:20 AM EDT Patient presents with: New Patient: Chronic nausea, Deficiency of other B group vitamins Nausea and Vitamin deficiency HPI: Yolanda Aparicio, patient is a 29-year-old female with gastroesophageal reflux disease, long COVID, postural orthostatic tachycardia syndrome (POTS), chronic fatigue, anxiety, and depression, presenting for evaluation of chronic nausea and recurrent vitamin deficiencies. She reports that her chronic nausea began after omer COVID in 2019 and has persisted since that time. The nausea is described as periodic and random, not consistently related to meals, and is not present all day. She typically experiences nausea at least once daily, for which she takes ondansetron (Zofran) as needed, usually once per day. She denies frequent vomiting but notes that the nausea can be severe enough to require her to lie down and take medication. She also reports recent episodes of acid reflux, particularly after eating, and describes intermittent bloating. She denies diarrhea and does not typically experience abdominal pain. The patient has experienced multiple vitamin deficiencies, including B12, omega, and carnitine, as well as abnormal trace elements and elevated homocysteine (13.8, with a comment that optimal is 5-7). She is currently self-administering B12 injections once monthly, previously given weekly when her levels were lower, but insurance limitations now restrict her to monthly dosing. Her most recent G90lirgh was in the 400s, though she was advised that an optimal level would be in the 600s. She reports that her folate was last checked in 2020 and was normal at that time (level 10). She has not beendiagnosed with anemia, and her blood counts have been reported as normal. She notes that when her B12 was low in the past, she felt weird and currently feels similarly, prompting her to delay her next injection until after repeat labs. She denies current alcohol or marijuana use, though she used both in the past. She reports living under chronic stress and believes her immune system has been impaired since COVID, as she now gets sick more easily. She has not undergone upper endoscopy or colonoscopy and expresses reluctance towardinvasive procedures due to anxiety. She retains her gallbladder and has not had prior abdominal surgery. Her current medications include ondansetron as needed for nausea and monthly B12 injections. She has previously been prescribed Pepcid in the hospital and has taken promethazine, but does not have regular prescriptions for these medications. She is not currently taking semaglutide but plans to start tirzepatide. She has not been evaluated by an anesthesia assistant but plans to see gynecology for hormone testing. Diagnostics: (April) Laboratory testing: - B12: ~400 (October) Laboratory testing: - Multiple tests performed (approximately 40). B12 deficiency noted. (2020) Laboratory testing: - B12: Within normal limits Laboratory testing (date not provided): - Ferritin: 46.9 (below referenced optimal range of 50-150) - Homeocysteine: 13.8 (slightly elevated) - [place]: A, bnormal - Carnitine: Abnormal Past GI workup 07/13/17 CTA ABD/PEL W IVCON Abdominal aorta, iliac and visualized femoral arteries are patent with no acute dissection or occlusion. No significant atherosclerotic disease. Visceral and renal arteries are also widely patent with no ostial stenoses. Liver, spleen, pancreas and adrenal glands are unremarkable. Gallbladder is normal. No biliary dilatation. No enhancing renal mass or hydronephrosis. Bowel demonstrates no obstruction or acute inflammation. A small amount of free fluid in the pelvisis likely physiologic. No free air. No mesenteric lymph node enlargement. Portal and mesenteric veins are patent. Bladder is incompletely distended. Uterus and adnexal structures are within normal limits. No retroperitoneal lymph node enlargement. Osseous structures are unremarkable. Component 04/15/24 11/05/23 VITAMIN B12 430 -- Vitamin B12 -- 198 Low Component Ref Range & Units 3 mo ago Comments METHYLMALONIC ACID 55 - 335 nmol/L 211 Component Ref Range & Units 8 mo ago Comments Copper, 24H Urine 3 - 35 ug/24 hr 5 Copper/Creat Ratio, Urine 0 - 49 ug/g creat 7 Copper, Urine Not Estab. ug/L 5 Detection Limit = 1 Creatinine,U 0.30 - 3.00 g/L 0.74 Detection Limit = 0.10 Resulting Agency [facility] ([place] Component Ref Range & Units 8 mo ago Porphobilinogen, Urine 0.0 - 2.0 mg/L 0.6 Porphobilinogen, 24H Urine 0.0 - 1.5 mg/24 hr 0.6 Resulting Agency [facility] ([facility]) Component Ref Range & Units 9 mo ago Comments Vitamin B6 20.0 - 125.0 nmol/L 42.0 Component Ref Range & Units 9 mo ago Comments Vitamin E (Alpha-Tocopherol) 5.5 - 18.0 mg/L 8.1 This test was developed and its performance characteristics determined by [facility]. It has not been cleared or approved by the [place] Food and Drug Administration. This test was performed in a CLIA certified laboratory and is intended for clinical purposes. 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 nitroglycerin sublingual (NITROQUICK) 0.3 mg SL tablet Dissolve 1 tablet under the tongue one time only for 1 dose. To be administered in Radiology for CTA exam tiZANidine (ZANAFLEX) 4 mg tablet take 1 tablet by mouth everyday at bedtime gabapentin (NEURONTIN) 100 mg capsule Take 2 capsules by mouth once daily. (taken with 300mg capsule) gabapentin (NEURONTIN) 300 mg capsule 1 capsule at bedtime (taken with two 100 mg capsules) hydrOXYzine HCl (ATARAX) 10 mg tablet Take 1 tablet by mouth three times daily as needed. metoprolol tartrate, short acting, (LOPRESSOR) 25 mg tablet Take 25 mg by mouth twice daily. 12.5 mg in the morning and 25 mg in the evening sodium chloride 1 g tab Take 2 g by mouth three times daily. 1 gram in morning and 1 gram in evening fluticasone (FLONASE) 50 mcg/actuation nasal spray Use 2 Sprays in each nostril once daily. acetaminophen (ACETAMINOPHEN EXTRA STRENGTH) 500 mg tablet Take 500 mg by mouth every 6 hours as needed for pain. meclizine (ANTIVERT) 25 mg tab Take 50 mg by mouth three times daily as needed (TID PRN). As neededTID ondansetron orally disintegrating (ZOFRAN ODT) 4 mg disintegrating tablet Take 4 mg by mouth every 6 hours as needed for nausea/vomiting. ibuprofen (MOTRIN) 200 mg tablet Take 200 mg by mouth every 6 hours as needed for pain. acetaminophen (TYLENOL) 500 mg tablet Take 500 mg by mouth as needed. No current facility-administered medications on file prior to visit. Allergies: Modafinil Mental Status Change Amoxicillin-Pot Cla* Other: See Comments Comment:extreme dizziness Bactrim [Sulfametho* GI Upset Cephalexin Unknown Ciprofloxacin Unknown Lexapro [Escitalopr* GI Upset [place] Juice Rash Sertraline Mental Status Change, Other: See Comments Trimethoprim Other: See Comments Review of Systems Constitutional: Positive for fatigue. Negative for chills and fever. HENT: Negative for hearing loss, nosebleeds, tinnitus and trouble swallowing. Eyes: Negative for visual disturbance. Respiratory: Negative for cough, shortness of breath and wheezing. Cardiovascular: Negative for chest pain and palpitations. Gastrointestinal: Positive for nausea. Negative for abdominal distention, abdominal pain, blood in stool, constipation, diarrhea and vomiting. Endocrine: Negative for polyphagia. Genitourinary: Negative for dysuria, frequency and hematuria. Musculoskeletal: Negative for arthralgias and joint swelling. Skin: Negative for pallor and rash. Neurological: Negative for dizziness, tremors, seizures, syncope and headaches. Hematological: Does not bruise/bleed easily. BP 92/63 Pulse 66 Temp 36.4 C (97.6 F) (Temporal) Ht 165.1 cm (5' 5 ) Wt 81.4 kg (179 lb 7.3 oz) LMP 09/05/2020 (Within Weeks) SpO2 97% BMI 29.86 kg/m Physical Exam Constitutional: General: She is not in acute distress. HENT: Mouth/Throat: Pharynx: Oropharynx is clear. Eyes: Conjunctiva/sclera: Conjunctivae normal. Cardiovascular: Rate and Rhythm: Normal rate and regular rhythm. Pulmonary: Effort: Pulmonary effort is normal. Breath sounds: Normal breath sounds. Abdominal: General: Bowel sounds are normal. There is no distension. Palpations: Abdomen is soft. Tenderness: There is no abdominal tenderness. There is no guarding or rebound. Musculoskeletal: General: No swelling. Skin: General: Skin is warm and dry. Coloration: Skin is not jaundiced. Neurological: Mental Status: She is alert. Mental status is at baseline. ASSESSMENT/PLAN: 29 y/o female with chronic nausea, GERD, and vitamin deficiencies. There is a concern for malabsorption but extensive workup has been negative thus far at outside institution. At this time will startpantoprazole for GERD and nausea, maintain Zofran as needed for nausea, and check labs and stool studies for malabsorption. Discussed endoscopic evaluation but she declines. 1. Intestinal malabsorption, unspecified type (HCC) - ICD9: 579.9, ICD10: K90.9 (primary diagnosis) - C-REACTIVE PROTEIN - SEDIMENTATION RATE, WESTERGREN - CELIAC SCREEN WITH REFLEX - VITAMIN B12 - FOLATE, SERUM - PANC ELASTASE, FECAL - IMMUNOGLOBULIN A - IMMUNOGLOBULIN E - IMMUNOGLOBULIN G - IMMUNOGLOBULIN M 2. Chronic nausea - ICD9: 787.02, ICD10: R11.0 3. Gastroesophageal reflux disease, unspecified whether esophagitis present - ICD9: 530.81, ICD10: K21.9 David Kevin Jr. documented in this encounterCincinnati [facility]06[facility] NoteHNO ID: [id number] Author: DAVID KEVIN JR, DO Service: ? Author Type: Physician Type: Progress Notes Filed: 08/08/2024 09:59 Note Text: Patient presents with: New Patient: Chronic nausea, Deficiency of other B group vitamins Nausea and Vitamin deficiency HPI: Yolanda Aparicio, patient is a 29-year-old female with gastroesophageal reflux disease, long COVID, postural orthostatic tachycardia syndrome (POTS), chronic fatigue, anxiety, and depression, presenting for evaluation of chronic nausea and recurrent vitamin deficiencies. She reports that her chronic nausea began after omer COVID in 2019 and has persisted since that time. The nausea is described as periodic and random, not consistently related to meals, and is not present all day. She typically experiences nausea at least once daily, for which she takes ondansetron (Zofran) as needed, usually once per day. She denies frequent vomiting but notes that the nausea can be severe enough to require her to lie down and take medication. She also reports recent episodes of acid reflux, particularly after eating, and describes intermittent bloating. She denies diarrhea and does not typically experience abdominal pain. The patient has experienced multiple vitamin deficiencies, including B12, omega, and carnitine, as well as abnormal trace elements and elevated homocysteine (13.8, with a comment that optimal is 5-7). She is currently self-administering B12 injections once monthly, previously given weekly when her levels were lower, but insurance limitations now restrict her to monthly dosing. Her most recent B12 level was in the 400s, though she was advised that an optimal level would be in the 600s. She reports that her folate was last checked in 2020 and was normal at that time (level 10). She has not been diagnosed with anemia, and her blood counts have been reported as normal. She notes that when her B12 was low in the past, she felt weird and currently feels similarly, prompting her to delay her next injection until after repeat labs. She denies current alcohol or marijuana use, though she used both in the past. She reports living under chronic stress and believes her immune system has been impaired since COVID, as she now gets sick more easily. She has not undergone upper endoscopy or colonoscopy and expresses reluctance toward invasive procedures due to anxiety. She retains her gallbladder and has not had prior abdominal surgery. Her current medications include ondansetron as needed for nausea and monthly B12 injections. She has previously been prescribed Pepcid in the hospital and has taken promethazine, but does not have regular prescriptions for these medications. She is not currently taking semaglutide but plans to start tirzepatide. She has not been evaluated by an anesthesia assistant but plans to see gynecology for hormone testing. Diagnostics: (April) Laboratory testing: - B12: ~400 (October) Laboratory testing: - Multiple tests performed (approximately 40). B12 deficiency noted. (2020) Laboratory testing: - B12: Within normal limits Laboratory testing (date not provided): - Ferritin: 46.9 (below referenced optimal range of 50-150) - Homeocysteine: 13.8 (slightly elevated) - [place]: A, bnormal - Carnitine: Abnormal Past GI workup 07/13/17 CTA ABD/PEL W IVCON Abdominal aorta, iliac and visualized femoral arteries are patent with no acute dissection or occlusion. No significant atherosclerotic disease. Visceral and renal arteries are also widely patent with no ostial stenoses. Liver, spleen, pancreas and adrenal glands are unremarkable. Gallbladder is normal. No biliary dilatation. No enhancing renal mass or hydronephrosis. Bowel demonstrates no obstruction or acute inflammation. A small amount of free fluid in the pelvis is likely physiologic. No free air. No mesenteric lymph node enlargement. Portal and mesenteric veins are patent. Bladder is incompletely distended. Uterus and adnexal structures are within normal limits. No retroperitoneal lymph node enlargement. Osseous structures are unremarkable. Component 04/15/24 11/05/23 VITAMIN B12 430 -- Vitamin B12 -- 198 Low Component Ref Range AND Units 3 mo ago Comments METHYLMALONIC ACID 55 - 335 nmol/L 211 Component Ref Range AND Units 8 mo ago Comments Copper, 24H Urine 3 - 35 ug/24 hr 5 Copper/Creat Ratio, Urine 0 - 49 ug/g creat 7 Copper, Urine Not Estab. ug/L 5 Detection Limit = 1 Creatinine,U 0.30 - 3.00 g/L 0.74 Detection Limit = 0.10 Resulting Agency [facility] ([place]) Component Ref Range AND Units 8 mo ago Porphobilinogen, Urine 0.0 - 2.0 mg/L 0.6 Porphobilinogen, 24H Urine 0.0 - 1.5 mg/24 hr 0.6 Resulting Agency [facility] ([facility]) Component Ref Range AND Units 9 mo ago Comments Vitamin B6 20.0 - 125.0 nmol/L 42.0 Component Ref Range AND Units 9 mo ago Comments Vitamin E (Alpha-Tocopherol) 5.5 (more content not included)...[place] [id number] NoteHNO ID: [id number] Author: JUDY GAMEZ PSYD Service: ? Author Type: Psychologist Type: Progress Notes Filed: 08/07/2024 20:49 Note Text: GENERAL PSYCHOLOGY Session #: 47 Visit Type:The patient consented to a virtual visit and their location was confirmed. Parked in her vehicle. Libertad Herrera. SUBJECTIVE: There has been a lot going on Wonders about her cortisol levels because of all the symptoms she is experiencing Hair has been falling out in clumps Discussed challenges: feeling exhausted at home, like a tow motor would need to pull her off the couch Dealing with chronic stress Discussed feeling not listened to, invalidated, and not supported by her friends She is not suicidal but she is having thoughts of not wanting to be here anymore, would not kill herself in the next year but does think about ending her life if things do not get better She is not currently interested in changing any psychiatric medications because she has had bad reactions to medications in the past and will continue to follow-up with her primary care for her current medication We discussed that ongoing regular psychotherapy as we have been doing could help her symptoms PATIENT DATA: Generalized Anxiety Disorder Scale (ROSE MARIE-7) 07/11/2024 07/24/2024 08/06/2024 ROSE MARIE - 7 SCORES Score 13 11 18 (0-4) minimal anxiety, (5-9) mild anxiety, (10-14) moderate anxiety, (15-21) severe anxiety Patient Health Questionnaire (PHQ-9) 07/11/2024 07/24/2024 08/06/2024 PHQ-9 Score 15 17 22 (0-4) minimal depression, (5-9) mild depression, (10-14) moderate depression, (15-19) moderately severe depression, (20-27) severe depression PROMIS Global Health 10/31/2023 03/26/2024 06/26/2024 PROMIS Global Health - (T-Scores - the mean of general population = 50. Five points is a clinically meaningful difference.) Physical T-Score 29.6 23.5 32.4 Mental T-Score 21.2 21.2 36.3 OBJECTIVE: Affect and behavior were within normal limits for the situation. Mental Status Exam: General/Sensorium: Alert and AND interactive - Appearance: Appears well groomed and stated age - Demeanor: Appropriately interactive - Motor Activity: Normal - Speech: Appropriate - Affect: Euthymic - Thought Process: Linear, logical, and goal-directed - Associations: Normal - Thought Content: Appropriate with no SI/HI/AVH - Cognition: Appears intact in regards to memory, attention/concentration, fund of knowledge and language skills - Insight: Good - Judgment: Good - ASSESSMENT: Patient was actively engaged in the session and demonstrated motivation towards therapy goals. Suicide risk was assessed today. She does not appear at imminent risk of suicide due to no current intent or plan of suicide. I will continue to monitor her depression and suicidal thoughts and discuss more intensive treatment options if necessary. She will likely benefit from continued psychotherapy to support management of PTSD and depression. 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 Judy Gamez [facility]06-26-2025 History of Present illness Narrative* Judy Gamez CARLY - 08/07/2024 8:03 AM EDT GENERAL PSYCHOLOGY Session #: 47 Visit Type:The patient consented to a virtual visit and their location was confirmed. [facility]ed [facility] [place]. Libertad Herrera. SUBJECTIVE: There has been a lot going on Wonders about her cortisol levels because of all the symptoms she is experiencing Hair has been falling out in clumps Discussed challenges: feeling exhausted at home, like a tow motor would need to pull her off the couch Dealing with chronic stress Discussed feeling not listened to, invalidated, and not supported by her friends She is not suicidal but she is having thoughts of not wanting to be here anymore, would not kill herself in the next year but does think about ending her life if things do not get better She is not currently interested in changing any psychiatric medications because she has had bad reactions to medications in the past and will continue to follow-up with her primary care for her current medication We discussed that ongoing regular psychotherapy as we have been doing could help her symptoms PATIENT DATA: Generalized Anxiety Disorder Scale (ROSE MARIE-7) 07/11/2024 07/24/2024 08/06/2024 RO[place] MARIE - 7 SCORES Score 13 11 18 (0-4) minimal anxiety, (5-9) mild anxiety, (10-14) moderate anxiety, (15-21) severe anxiety Patient Health Questionnaire (PHQ-9) 07/11/2024 07/24/2024 08/06/2024 PHQ-9 Score 15 17 22 (0-4) minimal depression, (5-9) mild depression, (10-14) moderate depression, (15-19) moderately severe depression, (20-27) severe depression PROMIS Global Health 10/31/2023 03/26/2024 06/26/2024 PROMIS Global Health - (T-Scores - the mean of general population = 50. Five points is a clinicallymeaningful difference.) Physical T-Score 29.6 23.5 32.4 Mental T-Score 21.2 21.2 36.3 OBJECTIVE: Affect and behavior were within normal limits for the situation. Mental Status Exam: General/Sensorium: Alert and & interactive - Appearance: Appears well groomed and stated age - Demeanor: Appropriately interactive - Motor Activity: Normal - Speech: Appropriate - Affect: Euthymic - Thought Process: Linear, logical, and goal-directed - Associations: Normal - Thought Content: Appropriate with no SI/HI/AVH - Cognition: Appears intact in regards to memory, attention/concentration, fund of knowledge and language skills - Insight: Good - Judgment: Good - ASSESSMENT: Patient was actively engaged in the session and demonstrated motivation towards therapy goals. Suicide risk was assessed today. She does not appear at imminent risk of suicide due to no current intent or plan of suicide. I will continue to monitor her depression and suicidal thoughts and discuss more intensive treatment options if necessary. She will likely benefit from continued psychotherapy tosupport management of PTSD and depression. 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 Judy Gamez PSYD documented in this encounterCincinnati [facility]06-25-2025 Telephone encounter Note * Telephone Encounter - Judy Gamez PSYD - 08/06/2024 12:48 PM EDT Pt would like to reschedule for tomorrow. Can she be contacted to see if she can meet tomorrow at 8am instead, or 7am Sunday? Thanks! [facility]06-25-2025 Miscellaneous Notes* Telephone Encounter - Judy Gamez PSYD - 08/06/2024 12:48 PM EDT Pt would like to reschedule for tomorrow. Can she be contacted to see if she can meet tomorrow at 8am instead, or 7am Sunday? Thanks! documented in this encounterCincinnati [facility]06-19-2025 History of Present illness Narrative* ADELAIDE Rosales - 07/31/2024 9:20 AM EDT Images from the original note were not included. Suture Removal Patient here for suture removal: No complaints of redness, drainage or swelling at site, compliant with wound care. Location: right posterior shoulder Procedure Performed: Punch biopsy Date of Procedure: 07/17/2024 Medications: none All pertinent medical history, medications, and allergies were reviewed. General Exam: alert, oriented to person, place, and time, normal affect, well appearing Unaccompanied A focused exam completed based on patient reported problems, see below: Skin Exam 1. ENCOUNTER FOR REMOVAL OF SUTURES Right Shoulder - Posterior Sutures are intact, Skin edges are well-approximated, Mild erythema along incision line, Mild erythema along incision line , No drainage or edema noted Suture Removal: Procedure: Sutures were removed without difficulty. Tincture of Benzoin was applied around site in preparation of steri-strips. Steri-strips were applied Post-Procedure instructions: Instructed to discontinue wound care., Instructed to keep steri stripson for at least 5-7 days., Pathology results discussed. Next Visit: 3 months documented in this encounterFreeman Heart [id number] NotePatient called to inquire about the status of her referral to Dr. Belle for evaluation of POTS. She expressed awareness of the longstanding waitlist but was understandably upset to learn that her name had not been added to the list upon receipt of her referral in February 2023. The call was transferred to mo. I listened to the patient's concerns and acknowledged her frustration. I expressed understanding and reassured her that I would look into the matter further to explore any possible next steps or assistance we can offer and contact the patient with an available update. [facility]06-16-2025 Evaluation note* Diagnosis Onset Date Resolution Status Admit Date Abnormal weight gain acuteJun2024 8:58amAnxietyacuteJune 2024 8:58amBMI 31.0-31.9,adult acuteJun2024 8:58amChronic fatigue syndromeacuteJun2024 8:58am DepressionacuteJun2024 8:58amDietary surveillance and counselingacute July 28, 2024 8:58amExercise counselingacuteJun2024 8:58amObesity, Class I, BMI 30-34.9acuteJune 2024 8:58amOCD (obsessive compulsive disorder)acuteJune 2024 8:58amPost-COVID syndromeacuteJune 2024 8:58amPOTS (postural orthostatic tachycardia syndrome)acuteJune 2024 8:58amPTSD (post-traumatic stress disorder)acuteJune 2024 8:58amAcute viral sinusitisnoneactiveJuly 2024 9:01amUrinary frequencynoneactiveJuly 2024 9:01amAnxietyacuteAugust 2024 8:22amPOTS (postural orthostatic tachycardia syndrome)acuteAugust 2024 8:22amAnxietyacuteAugust 2024 11:21amPOTS (postural orthostatic tachycardia syndrome)acuteAugust 2024 11:21amPTSD (post-traumatic stress disorder)acuteAugust 2024 11:21amCOVID- 19 long haulerchronicAugust 2024 11:21amAcute viral sinusitisnoneactive October 21, 2024 12:47pm [facility] Work Phone: 1(601) 431-749906-16-2025 Evaluation note* Diagnosis Onset Date Resolution Status Admit Date Abnormal weight gain acuteJun2024 8:58amAnxietyacuteJune 2024 8:58amBMI 31.0-31.9,adult acuteJune 2024 8:58amChronic fatigue syndromeacuteJun2024 8:58am DepressionacuteJune 2024 8:58amDietary surveillance and counselingacute July 28, 2024 8:58amExercise counselingacuteJun2024 8:58amObesity, Class I, BMI 30-34.9acuteJune 2024 8:58amOCD (obsessive compulsive disorder)acuteJune 2024 8:58amPost-COVID syndromeacuteJune 2024 8:58amPOTS (postural orthostatic tachycardia syndrome)acuteJule 2024 8:58amPTSD (post-traumatic stress disorder)acuteJune 2024 8:58amAcute viral sinusitisnoneactiveJuly 2024 9:01amUrinary frequencynoneactiveJuly 2024 9:01amAnxietyacuteAugust 2024 8:22amPOTS (postural orthostatic tachycardia syndrome)acuteAugust 2024 8:22amAnxietyacuteAugust 2024 11:21amPOTS (postural orthostatic tachycardia syndrome)acuteAugust 2024 11:21amPTSD (post-traumatic stress disorder)acuteAugust 2024 11:21amCOVID- 19 long haulerchronicAugust 2024 11:21amAcute viral sinusitisnoneactive October 21, 2024 12:47pmPost-nasal dripacuteSept2024 2:13pm [facility] Work Phone: 1(725) 139-865106-12-2025 NoteHNO ID: [id number] Author: JUDY GAMEZ PSYD Service: ? Author Type: Psychologist Type: Progress Notes Filed: 07/25/2024 12:23 Note Text: GENERAL PSYCHOLOGY Session #: 46 Visit Type: We attempted a video call via Zoom but did not establish a video connection. We switched to phone call due to a connection issue (poor audio quality). I explained that if we do not establish a video connection where I can see her this will be a phone visit and patient consented to phone visit today. I explained that the department policy is to do video visits so in future we will continue to schedule as video visits. Location verified: Located at home today. SUBJECTIVE: Is feeling irritable and has not had a lot of sleep Was in PT for two months and after the fact found out that they were not POTS specialists Noted she was injured twice during her physical therapy appointments resulting in bicept tendinitis and tricept tendinitis and that they discharged her sooner than she thought was appropriate because of how deconditioned she was Her body was not handling what was going on She would like to be in intense cardiac rehab because this would benefit her and would like 6-12 months of PT She states she is so tired she cannot get off the couch, she noted she wants to get better Feels as if someone would have to come in with a tow truck to lift her out Has to take frequent breaks if tidying around the house Reviewed her current symptoms she is experiencing: daily brain fog, tachycardia, shortness of breath, chest pain, dizziness, lightheadedness, blood pooling, nausea, fatigue, activity intolerance, blurred vision Climbing stairs makes her fatigued, tachycardic and short of breath, gets weakness in her legs Experiencing memory problems due to brain fog including forgetting social security #, keys in the door and fridge, forgetting other personal details (phone number, birthday, last name) Experiencing dissociation when driving, could miss a turn, however, can snap herself back in Will forget things she needs to do When she is home she lays down for the majority of the time because sitting up is too exhausting, it bothers her chest When walking or trying low impact exercise struggles with nausea, and post exertion malaise, states she has a lot of delayed symptoms Recently has not been doing any walks or low impact exercise due to fatigue Discussed stress with mother, she explained her perspective of her childhood to her mother, advocated for her perspective PATIENT DATA: Generalized Anxiety Disorder Scale (ROSE MARIE-7) 06/26/2024 07/11/2024 07/24/2024 ROSE MARIE - 7 SCORES Score 5 13 11 (0-4) minimal anxiety, (5-9) mild anxiety, (10-14) moderate anxiety, (15-21) severe anxiety Patient Health Questionnaire (PHQ-9) 06/26/2024 07/11/2024 07/24/2024 PHQ-9 Score 5 15 17 (0-4) minimal depression, (5-9) mild depression, (10-14) moderate depression, (15-19) moderately severe depression, (20-27) severe depression PROMIS Global Health 10/31/2023 03/26/2024 06/26/2024 PROMIS Global Health - (T-Scores - the mean of general population = 50. Five points is a clinically meaningful difference.) Physical T-Score 29.6 23.5 32.4 Mental T-Score 21.2 21.2 36.3 OBJECTIVE: Affect and behavior were within normal limits for the situation. Mental Status Exam: General/Sensorium: Alert and AND interactive - Appearance: Appears well groomed and stated age - Demeanor: Appropriately interactive - Motor Activity: Normal - Speech: Appropriate - Affect: Euthymic - Thought Process: Linear, logical, and goal-directed - Associations: Normal - Thought Content: Appropriate with no SI/HI/AVH - Cognition: Appears intact in regards to memory, attention/concentration, fund of knowledge and language skills - Insight: Good - Judgment: Good - ASSESSMENT: Patient was actively engaged in the session and demonstrated motivation towards therapy goals. Will likely benefit from continued psychotherapy to support management of traumatic stress and ongoing major life stressors. DIAGNOSIS: (F43.10) PTSD (post-traumatic stress disorder) (primary encounter diagnosis) (G90.A) POTS (postural orthostatic tachycardia syndrome) TREATMENT MODALITIES: DBT, ACT PROGRESS TO DATE: Portal Administrator Progress: Progress Short Term Condition: Progress GOALS/OBJECTIVES/INTERVENTIONS: Validate emotional experience Support valued action Goal for next session - continue to discuss self-advocacy with mother Approximately 55 minutes were spent with the patient doing therapy by phone. Judy Gamez [facility]06-12-2025 History of Present illness Narrative* [facility]03 AM EDT GENERAL PSYCHOLOGY Session #: 46 Visit Type: We attempted a video call via Zoom but did not establish a video connection. We switched to phone call due to a connection issue (poor audio quality). I explained that if we do not establish a video connection where I can see her this will be a phone visit and patient consented to phonevisit today. I explained that the department policy is to do video visits so in future we will continue to schedule as video visits. Location verified: Located at home today. SUBJECTIVE: Is feeling irritable and has not had a lot of sleep Was in PT for two months and after the fact found out that they were not POTS specialists Noted she was injured twice during her physical therapy appointments resulting in bicept tendinitisand tricept tendinitis and that they discharged her sooner than she thought was appropriate becauseof how deconditioned she was Her body was not handling what was going on She would like to be in intense cardiac rehab because this would benefit her and would like 6-12 months of PT She states she is so tired she cannot get off the couch, she noted she wants to get better Feels as if someone would have to come in with a tow truck to lift her out Has to take frequent breaks if tidying around the house Reviewed her current symptoms she is experiencing: daily brain fog, tachycardia, shortness of breath, chest pain, dizziness, lightheadedness, blood pooling, nausea, fatigue, activity intolerance, blurred vision Climbing stairs makes her fatigued, tachycardic and short of breath, gets weakness in her legs Experiencing memory problems due to brain fog including forgetting social security #, keys in the door and fridge, forgetting other personal details (phone number, birthday, last name) Experiencing dissociation when driving, could miss a turn, however, can snap herself back in Will forget things she needs to do When she is home she lays down for the majority of the time because sitting up is too exhausting, it bothers her chest When walking or trying low impact exercise struggles with nausea, and post exertion malaise, statesshkarla has a lot of delayed symptoms Recently has not been doing any walks or low impact exercise due to fatigue Discussed stress with mother, she explained her perspective of her childhood to her mother, advocated for her perspective PATIENT DATA: Generalized Anxiety Disorder Scale (ROSE MARIE-7) 06/26/2024 07/11/2024 07/24/2024 ROSE MARIE - 7 SCORES Score 5 13 11 (0-4) minimal anxiety, (5-9) mild anxiety, (10-14) moderate anxiety, (15-21) severe anxiety Patient Health Questionnaire (PHQ-9) 06/26/2024 07/11/2024 07/24/2024 PHQ-9 Score 5 15 17 (0-4) minimal depression, (5-9) mild depression, (10-14) moderate depression, (15-19) moderately severe depression, (20-27) severe depression PROMIS Global Health 10/31/2023 03/26/2024 06/26/2024 PROMIS Global Health - (T-Scores - the mean of general population = 50. Five points is a clinicallymeaningful difference.) Physical T-Score 29.6 23.5 32.4 Mental T-Score 21.2 21.2 36.3 OBJECTIVE: Affect and behavior were within normal limits for the situation. Mental Status Exam: General/Sensorium: Alert and & interactive - Appearance: Appears well groomed and stated age - Demeanor: Appropriately interactive - Motor Activity: Normal - Speech: Appropriate - Affect: Euthymic - Thought Process: Linear, logical, and goal-directed - Associations: Normal - Thought Content: Appropriate with no SI/HI/AVH - Cognition: Appears intact in regards to memory, attention/concentration, fund of knowledge and language skills - Insight: Good - Judgment: Good - ASSESSMENT: Patient was actively engaged in the session and demonstrated motivation towards therapy goals. Willlikely benefit from continued psychotherapy to support management of traumatic stress and ongoing major life stressors. DIAGNOSIS: (F43.10) PTSD (post-traumatic stress disorder) (primary encounter diagnosis) (G90.A) POTS (postural orthostatic tachycardia syndrome) TREATMENT MODALITIES: DBT, ACT PROGRESS TO DATE: Intermediate Progress: Progress Short Term Condition: Progress GOALS/OBJECTIVES/INTERVENTIONS: Validate emotional experience Support valued action Goal for next session - continue to discuss self-advocacy with mother Approximately 55 minutes were spent with the patient doing therapy by phone. Judy Gamez PSYD documented in this encounterC[facility] History of Present illness Narrative* ADELAIDE Rosales - 07/17/2024 9:50 AM EDT Images from the original note were not included. Acne Location: face Duration: months Severity: moderate Nature of acne: blackheads, martinez Current treatment: OTC acne products New patient Lesions: Location: right posterior shoulder Duration: years Quality: denies pain, denies itch, denies bleeding Modifying factors: rubs on clothing Associated symptoms: enlarged Treatments: none All pertinent medical history, medications, and allergies were reviewed. General Exam: alert, oriented to person, place, and time, normal affect, well appearing Unaccompanied A focused exam completed based on patient reported problems, see below: Skin Exam 1. MELANOCYTIC NEVUS OF FACE, OTHER LOCATION Left Buccal Cheek Scattered benign appearing, regular brown to light brown melanocytic papules and macules with similar morphology Counseled regarding these benign growths. Rarely, a nevus can develop into malignant melanoma, so any changing nevi should be promptly re-evaluated. 2. ACNE VULGARIS Head - Anterior (Face) Scattered comedones and inflammatory pustules. Flaring today The patient and/or parent were counseled that it may take up to 2-3 months to notice significant improvement of the acne. The use of non-comedogenic cleansers and moisturizers was recommended. Acne treatment plan given today. Start Tretinoin cream 0.025%. Apply pea size amount to face every other night until tolerated. Discussed non-comedogenic cleansers and moisturizers. tretinoin (Retin-A) 0.025 % cream - Head - Anterior (Face) Apply to face, once daily at evening/night time, 30 day supply 3. NEOPLASM OF UNSPECIFIED BEHAVIOR OF BONE, SOFT TISSUE, AND SKIN Right Shoulder - Posterior [place] papule Lesion biopsy Type of biopsy: punch Informed consent: discussed and consent obtained Informed consent comment: The risks and benefits were discussed. Risks include, but are not limitedto, bleeding, infection, scarring, pain, & nerve damage. An opportunity to ask questions prior to the procedure was permitted and questions were answered. Patient was prepped and draped in usual sterile fashion: Area cleansed with alcohol. Anesthesia: the lesion was anesthetized in a standard fashion Anesthetic: 1% lidocaine w/ epinephrine 1-100,000 buffered w/ 8.4% NaHCO3 Punch size: 8 mm (A biopsy by punch method was performed using a dermal punch) Suture size: 4-0 Suture type: nylon Suture type comment: Hemostasis was achieved with suture. Hemostasis achieved with: suture Outcome: patient tolerated procedure well Post-procedure details: sterile dressing applied and wound care instructions given Post-procedure details comment: Emphasized the need to contact clinic for any signs of infection, uncontrollable bleeding, or complications. Dressing type: bandage Additional details: Amount of lidocaine used: 4.0 cc Number of sutures used: 1 deep 2 top Specimen sent for: H&E or DIF Photo taken yes Specimen A - Dermatopathology exam Differential Diagnosis: Cyst Check Margins: No Next Visit: 3 months documented in this encounterFreeman Heart [id number] Telephone encounter Note* Telephone Encounter - Judy Gamez PSYD - 07/16/2024 7:03 AM EDT Can pt please be added on August 28 at 8am and September 30 at 9:30am? Thanks! [facility]06-04-2025 Miscellaneous Notes* Telephone Encounter - Judy Gamez PSYD - 07/16/2024 7:03 AM EDT Can pt please be added on August 28 at 8am and September 30 at 9:30am? Thanks! documented in this encounterC[facility]06-01-2025 Evaluation note* Diagnosis Onset Date Resolution Status Admit Date Strain of right biceps tendon noneactiveJune 2024 12:05pmRight shoulder painnoneactiveJune 2024 12:05pmAbnormal weight gainacuteJune 2024 8:58amAnxietyacuteJune 2024 8:58amBMI 31.0-31.9,adultacuteJune 2024 8:58amChronic fatigue syndromeacuteJune 2024 8:58amDepressionacuteJune 2024 8:58amDietary surveillance and counselingacuteJune 2024 8:58amExercise counselingacute July 28, 2024 8:58amObesity, Class I, BMI 30-34.9acuteJune 2024 8:58am OCD (obsessive compulsive disorder)acuteJune 2024 8:58amPost-COVID syndromeacuteJune 2024 8:58amPOTS (postural orthostatic tachycardia syndrome)acuteJune 2024 8:58amPTSD (post-traumatic stress disorder)acute July 28, 2024 8:58amAcute viral sinusitisnoneactiveJuly 2024 9:01am Urinary frequencynoneactiveJuly 2024 9:01am [facility] Work Phone: 1(475) 692-589406-01-2025 Evaluation note* Diagnosis Onset Date Resolution Status Admit Date Strain of right biceps tendon noneactiveJune 2024 12:05pmRight shoulder painnoneactiveJune 2024 12:05pmAbnormal weight gainacuteJune 2024 8:58amAnxietyacuteJune 2024 8:58amBMI 31.0-31.9,adultacuteJune 2024 8:58amChronic fatigue syndromeacuteJune 2024 8:58amDepressionacuteJune 2024 8:58amDietary surveillance and counselingacuteY[facility]ale 20[facility] 8:58amExercise counselingacute July 28, 2024 8:58amObesity, Class I, BMI 30-34.9acuteJune 2024 8:58am OCD (obsessive compulsive disorder)acuteJune 2024 8:58amPost-COVID syndromeacuteYadkin Valley Community Hospitale 2024 8:58amPOTS (postural orthostatic tachycardia syndrome)acuteYadkin Valley [facility] Hospitale 2024 8:58amPTSD (post-traumatic stress disorder)acute July 28, 2024 8:58amAcute viral sinusitisnoneactiveJuly 2024 9:01am Urinary frequencynoneactiveJuly 2024 9:01amAnxietyacuteAugust 2024 8:22amPOTS (postural orthostatic tachycardia syndrome)acuteAugust 2024 8:22am [facility] Work Phone: 1(164) 953-538505-30-2025 NoteHNO ID: [id number] Author: JUDY GAMEZ PSYD Service: ? Author Type: Psychologist Type: Progress Notes Filed: 07/17/2024 14:50 Note Text: GENERAL PSYCHOLOGY Session #: 45 (session count starts after PSYL NEW EVAL visit) Visit Type:The patient consented to a virtual visit and their location was confirmed. Parked in her vehicle. At [place] [address]. 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 Repeated, disturbing, and unwanted memories of the stressful experience? Quite a bit Quite a bit Quite a bit 2. Repeated, disturbing dreams of the stressful experience? Not at all Quite a bit Moderately 33 = proposed cut-off score for PTSD symptoms warranting further investigation until further psychometric work is available <33 = subthreshold symptoms of PTSD >24 PTSD is a clinical concern, 33-36 probable PTSD, >37 significant PTSD PROMIS Global Health 10/31/2023 03/26/2024 06/26/2024 PROMIS Global Health - (T-Scores - the mean of general population = 50. Five points is a clinically meaningful difference.) Physical T-Score 29.6 23.5 32.4 Mental T-Score 21.2 21.2 36.3 OBJECTIVE: Affect and behavior were within normal limits for the situation. Mental Status Exam: General/Sensorium: Alert and AND interactive - Appearance: Appears well groomed and stated age - Demeanor: Appropriately interactive - Motor Activity: Normal - Speech: Appropriate - Affect: Euthymic - Thought Process: Linear, logical, and goal-directed - Associations: Normal - Thought Content: Appropriate with no SI/HI/AVH - Cognition: Appears intact in regards to memory, attention/concentration, fund of knowledge and language skills - Insight: Good - Judgment: Good - ASSESSMENT: Patient was actively engaged in the session and demonstrated motivation towards therapy goals. Will likely benefit from continued psychotherapy to process traumatic stress. DIAGNOSIS: (F43.10) PTSD (post-traumatic stress disorder) (primary encounter diagnosis) (G90.A) POTS (postural orthostatic tachycardia syndrome) (U09.9) Post-acute 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) (F42.2) Mixed obsessional thoughts and acts (F34.1) Persistent depressive disorder with anxious distress, currently severe TREATMENT MODALITIES: DBT, ACT PROGRESS TO DATE: Portal Administrator Progress: Progress Short Term Condition: Progress GOALS/OBJECTIVES/INTERVENTIONS: Validate emotional experience Support valued action Understand how past experiences influence present and future Discussed attachment theory and fearful attachment Approximately 55 minutes were spent with the patient doing therapy. [facility] History of Present illness Narrative* Judy Gamez, [facility] - 07/11/2024 7:07 AM EDT GENERAL PSYCHOLOGY Session #: 45 (session count starts after PSYL NEW EVAL visit) Visit Type:The patient consented to a virtual visit and their location was confirmed. [facility] [place]. At [place] [facility]. 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 Repeated, disturbing, and unwanted memories of the stressful experience? Quite a bit Quite a bitQuite a bit 2. Repeated, disturbing dreams of the stressful experience? Not at all Quite a bit Moderately 33 = proposed cut-off score for PTSD symptoms warranting further investigation until further psychometric work is available <33 = subthreshold symptoms of PTSD >24 PTSD is a clinical concern, 33-36 probable PTSD, >37 significant PTSD PROMIS Global Health 10/31/2023 03/26/2024 06/26/2024 PROMIS Global Health - (T-Scores - the mean of general population = 50. Five points is a clinicallymeaningful difference.) Physical T-Score 29.6 23.5 32.4 Mental T-Score 21.2 21.2 36.3 OBJECTIVE: Affect and behavior were within normal limits for the situation. Mental Status Exam: General/Sensorium: Alert and & interactive - Appearance: Appears well groomed and stated age - Demeanor: Appropriately interactive - Motor Activity: Normal - Speech: Appropriate - Affect: Euthymic - Thought Process: Linear, logical, and goal-directed - Associations: Normal - Thought Content: Appropriate with no SI/HI/AVH - Cognition: Appears intact in regards to memory, attention/concentration, fund of knowledge and language skills - Insight: Good - Judgment: Good - ASSESSMENT: Patient was actively engaged in the session and demonstrated motivation towards therapy goals. Willlikely benefit from continued psychotherapy to process traumatic stress. 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 Judy Gamez PSYD documented in this encounterCincinnati [facility]05-19-[facility]25 Hospital Discharge instructions Patient Education 06/30/2024 19:13:08 Urinary Frequency, Adult Urinary Frequency, Adult Urinary frequency means urinating more often than usual. You may urinate every 1 2 hours even though you drink a normal amount of fluid and do not have a bladder infection or condition. Although you urinate more often than normal, the total amount of urine produced in a day is normal. With urinary frequency, you may have an urgent need to urinate often. The stress and anxiety of needing to find a bathroom quickly can make this urge worse. This condition may go away on its own, or you may need treatment at home. Home treatment may include bladder training, exercises, taking medicines, or making changes to your diet. Follow these instructions at home: Bladder health Your health care provider will tell you what to do to improve bladder health. You may be told to: Keep a bladder diary. Keep track of: ?What you eat and drink. ?How often you urinate. ?How much you urinate. Follow a bladder training program. This may include: ?Learning to delay going to the bathroom. ?Double urinating, also called voiding. This helps if you are not completely emptying your bladder. ?Scheduled voiding. Do Kegel exercises. Kegel exercises strengthen the muscles that help control urination, which may help the condition. Eating and drinking Follow instructions from your health care provider about eating or drinking restrictions. You may be told to: Avoid caffeine. Drink fewer fluids, especially alcohol. Avoid drinking in the evening. Avoid foods or drinks that may irritate the bladder. These include coffee, tea, soda, artificial sweeteners, citrus, tomato-based foods, and chocolate. Eat foods that help prevent or treat constipation. Constipation can make urinary frequency worse. You may need to take these actions to prevent or treat constipation: ?Drink enough fluid to keep your urine pale yellow. ?Take ivcd-czb-avzbybg or prescription medicines. ?Eat foods that are high in fiber, such as beans, whole grains, and fresh fruits and vegetables. ?Limit foods that are high in fat and processed sugars, such as fried or sweet foods. General instructions Take dumw-cyh-cfitwpw and prescription medicines only as told by your health care provider. Keep all follow-up visits. This is important. Contact a health care provider if: You start urinating more often. You feel pain or irritation when you urinate. You notice blood in your urine. Your urine looks cloudy. You develop a fever. You begin vomiting. Get help right away if: You are unable to urinate. Summary Urinary frequency means urinating more often than usual. With urinary frequency, you may urinate every 1 2 hours even though you drink a normal amount of fluid and do not have a bladder infection or other bladder condition. Your health care provider may recommend that you keep a bladder diary, follow a bladder training program, or make dietary changes. If told by your health care provider, do Kegel exercises to strengthen the muscles that help control urination. Take qstk-uow-gbzupio and prescription medicines only as told by your health care provider. Contact a health care provider if your symptoms do not improve or get worse. This information is not intended to replace advice given to you by your health care provider. Make sure you discuss any questions you have with your health care provider. Document Revised: 09/03/2020 Document Reviewed: 09/03/2020 [employer] Patient Education 2023 [place]. Follow Up Care 06/30/2024 16:46:01 With:MISHA SY DO, FAM Address: [address] [place], [place] [address] When: Unknown [facility] 05-19-2025 NotePatient Education Urology Urinary Frequency, Adult Urinary frequency means urinating more often than usual. You may urinate every 1?2 hours even though you drink a normal amount of fluid and do not have a bladder infection or condition. Although you urinate more often than normal, the total amount of urine produced in a day is normal. With urinary frequency, you may have an urgent need to urinate often. The stress and anxiety of needing to find a bathroom quickly can make this urge worse. This condition may go away on its own, or you may need treatment at home. Home treatment may include bladder training, exercises, taking medicines, or making changes to your diet. Follow these instructions at home: Bladder health Your health care provider will tell you what to do to improve bladder health. You may be told to: ??? Keep a bladder diary. Keep track of: ? What you eat and drink. ? How often you urinate. ? How much you urinate. ??? Follow a bladder training program. This may include: ? Learning to delay going to the bathroom. ? Double urinating, also called voiding. This helps if you are not completely emptying your bladder. ? Scheduled voiding. ??? Do Kegel exercises. Kegel exercises strengthen the muscles that help control urination, which may help the condition. Eating and drinking Follow instructions from your health care provider about eating or drinking restrictions. You may be told to: ??? Avoid caffeine. ??? Drink fewer fluids, especially alcohol. ??? Avoid drinking in the evening. ??? Avoid foods or drinks that may irritate the bladder. These include coffee, tea, soda, artificial sweeteners, citrus, tomato-based foods, and chocolate. ??? Eat foods that help prevent or treat constipation. Constipation can make urinary frequency worse. You may need to take these actions to prevent or treat constipation: ? Drink enough fluid to keep your urine pale yellow. ? Take hepc-grn-zhcwwfp or prescription medicines. ? Eat foods that are high in fiber, such as beans, whole grains, and fresh fruits and vegetables. ? Limit foods that are high in fat and processed sugars, such as fried or sweet foods. General instructions ??? Take jcpv-wlp-uassnha and prescription medicines only as told by your health care provider. ??? Keep all follow-up visits. This is important. Contact a health care provider if: ??? You start urinating more often. ??? You feel pain or irritation when you urinate. ??? You notice blood in your urine. ??? Your urine looks cloudy. ??? You develop a fever. ??? You begin vomiting. Get help right away if: ??? You are unable to urinate. Summary ??? Urinary frequency means urinating more often than usual. With urinary frequency, you may urinate every 1?2 hours even though you drink a normal amount of fluid and do not have a bladder infectionor other bladder condition. ??? Your health care provider may recommend that you keep a bladder diary, follow a bladder training program, or make dietary changes. ??? If told by your health care provider, do Kegel exercises to strengthen the muscles that help control urination. ??? Take kcrp-uoe-qotdbed and prescription medicines only as told by your health care provider. ??? Contact a health care provider if your symptoms do not improve or get worse. This information is not intended to replace advice given to you by your health care provider. Make sure you discuss any questions you have with your health care provider. Document Revised: 09/03/2020 Document Reviewed: 09/03/2020 [employer] Patient Education ? 2023 [place].[facility] 06-26-2024 NoteHNO ID: [id number] Author: JUDY GAMEZ PSYD Service: ? Author Type: Psychologist Type: Progress Notes Filed: 06/26/2024 09:06 Note Text: GENERAL PSYCHOLOGY Session #: 44 Visit Type:The patient consented to a virtual visit and their location was confirmed. SUBJECTIVE: Has been fine, is exercising and losing weight Can walk 30 to 45 minutes, it varies, up to 30 is tolerable, 45 she feels symptomatic Experiencing symptoms (nausea, dizziness) but it is intermittent and she can recover Feeling mentally better these days Discussed attachments with others and how it can change Discussed early relationships with mother and father States she has trouble emotionally regulating Wonders why she feels guilty PATIENT DATA: Generalized Anxiety Disorder Scale (ROSE MARIE-7) 06/05/2024 06/06/2024 06/26/2024 ROSE MARIE - 7 SCORES Score 12 7 5 (0-4) minimal anxiety, (5-9) mild anxiety, (10-14) moderate anxiety, (15-21) severe anxiety Patient Health Questionnaire (PHQ-9) 06/05/2024 06/06/2024 06/26/2024 PHQ-9 Score 10 11 5 (0-4) minimal depression, (5-9) mild depression, (10-14) moderate depression, (15-19) moderately severe depression, (20-27) severe depression PTSD Checklist for DSM-5 (PCL-5) 10/18/2021 07/27/2023 12/25/2023 PCL-5 PCL-5 Total Score 45 59 65 1. Repeated, disturbing, and unwanted memories of the stressful experience? Quite a bit Quite a bit Quite a bit 2. Repeated, disturbing dreams of the stressful experience? Not at all Quite a bit Moderately 33 = proposed cut-off score for PTSD symptoms warranting further investigation until further psychometric work is available <33 = subthreshold symptoms of PTSD >24 PTSD is a clinical concern, 33-36 probable PTSD, >37 significant PTSD PROMIS Global Health 10/31/2023 03/26/2024 06/26/2024 PROMIS Global Health - (T-Scores - the mean of general population = 50. Five points is a clinically meaningful difference.) Physical T-Score 29.6 23.5 32.4 Mental T-Score 21.2 21.2 36.3 OBJECTIVE: Affect and behavior were within normal limits for the situation. Mental Status Exam: General/Sensorium: Alert and AND interactive - Appearance: Appears well groomed and stated age - Demeanor: Appropriately interactive - Motor Activity: Normal - Speech: Appropriate - Affect: Euthymic - Thought Process: Linear, logical, and goal-directed - Associations: Normal - Thought Content: Appropriate with no SI/HI/AVH - Cognition: Appears intact in regards to memory, attention/concentration, fund of knowledge and language skills - Insight: Good - Judgment: Good - ASSESSMENT: Patient was actively engaged in the session and demonstrated motivation towards therapy goals. Will likely benefit from continued psychotherapy to support management of stress. 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 being totally raw Reduce avoidance behaviors that are unhealthy, while supporting healthy boundaries Understand why she feels the way she feels and responds the way she does Next session: Continue to discuss feeling guilty NOTE: Review [place] visits ensure 2x a month Approximately 55 minutes were spent with the patient doing therapy. Judy Gamez [facility]05-15-2025 History of Present illness Narrative* Judy Gamez PSYD - 06/26/2024 8:06 AM EDT GENERAL PSYCHOLOGY Session #: 44 Visit Type:The patient consented to a virtual visit and their location was confirmed. SUBJECTIVE: Has been fine, is exercising and losing weight Can walk 30 to 45 minutes, it varies, up to 30 is tolerable, 45 she feels symptomatic Experiencing symptoms (nausea, dizziness) but it is intermittent and she can recover Feeling mentally better these days Discussed attachments with others and how it can change Discussed early relationships with mother and father States she has trouble emotionally regulating Wonders why she feels guilty PATIENT DATA: Generalized Anxiety Disorder Scale (ROSE MARIE-7) 06/05/2024 06/06/2024 06/26/2024 ROSE MARIE - 7 SCORES Score 12 7 5 (0-4) minimal anxiety, (5-9) mild anxiety, (10-14) moderate anxiety, (15-21) severe anxiety Patient Health Questionnaire (PHQ-9) 06/05/2024 06/06/2024 06/26/2024 PHQ-9 Score 10 11 5 (0-4) minimal depression, (5-9) mild depression, (10-14) moderate depression, (15-19) moderately severe depression, (20-27) severe depression PTSD Checklist for DSM-5 (PCL-5) 10/18/2021 07/27/2023 12/25/2023 PCL-5 PCL-5 Total Score 45 59 65 1. Repeated, disturbing, and unwanted memories of the stressful experience? Quite a bit Quite a bitQuite a bit 2. Repeated, disturbing dreams of the stressful experience? Not at all Quite a bit Moderately 33 = proposed cut-off score for PTSD symptoms warranting further investigation until further psychometric work is available <33 = subthreshold symptoms of PTSD >24 PTSD is a clinical concern, 33-36 probable PTSD, >37 significant PTSD PROMIS Global Health 10/31/2023 03/26/2024 06/26/2024 PROMIS Global Health - (T-Scores - the mean of general population = 50. Five points is a clinicallymeaningful difference.) Physical T-Score 29.6 23.5 32.4 Mental T-Score 21.2 21.2 36.3 OBJECTIVE: Affect and behavior were within normal limits for the situation. Mental Status Exam: General/Sensorium: Alert and & interactive - Appearance: Appears well groomed and stated age - Demeanor: Appropriately interactive - Motor Activity: Normal - Speech: Appropriate - Affect: Euthymic - Thought Process: Linear, logical, and goal-directed - Associations: Normal - Thought Content: Appropriate with no SI/HI/AVH - Cognition: Appears intact in regards to memory, attention/concentration, fund of knowledge and language skills - Insight: Good - Judgment: Good - ASSESSMENT: Patient was actively engaged in the session and demonstrated motivation towards therapy goals. Willlikely benefit from continued psychotherapy to support management of stress. 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 being totally raw Reduce avoidance behaviors that are unhealthy, while supporting healthy boundaries Understand why she feels the way she feels and responds the way she does Next session: Continue to discuss feeling guilty NOTE: Review [place] visits ensure 2x a month Approximately 55 minutes were spent with the patient doing therapy. Judy Gamez PSYD [facility] encounter Note * Telephone Encounter - Judy Gamez PSYD - 06/12/2024 5:40 PM EDT Rescheduled patient same day. [facility]05-[facility] Miscellaneous Notes* Telephone Encounter - Judy Gamez PSYD - 06/12/2024 5:40 PM EDT Rescheduled patient same day. [facility]25 NoteHNO ID: [id number] Author: JUDY GAMEZ PSYD Service: ? Author Type: Psychologist Type: Progress Notes Filed: 06/06/2024 12:29 Note Text: GENERAL PSYCHOLOGY Session #: 43 Visit Type:The patient consented to a virtual visit and their location was confirmed. SUBJECTIVE: Feeling nauseous following 15 minutes walk Discussed concept of grieving someone who is still alive Discussed family dynamics with immediate family Discussed healthcare related stressors PATIENT DATA: Generalized Anxiety Disorder Scale (ROSE MARIE-7) 05/22/2024 06/05/2024 06/06/2024 ROSE MARIE - 7 SCORES Score 12 12 7 (0-4) minimal anxiety, (5-9) mild anxiety, (10-14) moderate anxiety, (15-21) severe anxiety Patient Health Questionnaire (PHQ-9) 05/22/2024 06/05/2024 06/06/2024 PHQ-9 Score 13 10 11 (0-4) minimal depression, (5-9) mild depression, (10-14) moderate depression, (15-19) moderately severe depression, (20-27) severe depression PTSD Checklist for DSM-5 (PCL-5) 10/18/2021 07/27/2023 12/25/2023 PCL-5 PCL-5 Total Score 45 59 65 1. Repeated, disturbing, and unwanted memories of the stressful experience? Quite a bit Quite a bit Quite a bit 2. Repeated, disturbing dreams of the stressful experience? Not at all Quite a bit Moderately 33 = proposed cut-off score for PTSD symptoms warranting further investigation until further psychometric work is available <33 = subthreshold symptoms of PTSD >24 PTSD is a clinical concern, 33-36 probable PTSD, >37 significant PTSD PROMIS Global Health 06/27/2023 10/31/2023 03/26/2024 PROMIS Global Health - (T-Scores - the mean of general population = 50. Five points is a clinically meaningful difference.) Physical T-Score 29.6 29.6 23.5 Mental T-Score 21.2 21.2 21.2 OBJECTIVE: Affect and behavior were within normal limits for the situation. Mental Status Exam: General/Sensorium: Alert and AND interactive - Appearance: Appears well groomed and stated age - lying down Demeanor: Appropriately interactive - Motor Activity: Normal - Speech: Appropriate - Mood: Reports feeling depressed - Reported as: not good Affect: Congruent with mood - Thought Process: Linear, logical, and goal-directed - Associations: Normal - Thought Content: Appropriate with no SI/HI/AVH - Cognition: Appears intact in regards to memory, attention/concentration, fund of knowledge and language skills - Insight: Good - Judgment: Good - ASSESSMENT: Patient was actively engaged in the session and demonstrated motivation towards therapy goals. Will likely benefit from continued psychotherapy to process traumatic stress. DIAGNOSIS: (F43.10) PTSD (post-traumatic stress disorder) Plan: PROVIDER ORDERED FOLLOW UP TREATMENT MODALITIES: DBT, ACT PROGRESS TO DATE: Portal Administrator Progress: Progress Short Term Condition: Progress GOALS/OBJECTIVES/INTERVENTIONS: Validate emotional experience Identify connection between past and present experiences Approximately 50 minutes were spent with the patient doing therapy. Judy Gamez [facility]04-19-2025 Evaluation note* Diagnosis Onset Date Resolution Status Admit Date Urinary frequency inactiveApril 2024 9:04amAbnormal weight gainacuteMay 2024 8:16am AnxietyacuteMay 2024 8:16amBMI 30.0-30.9,adultacuteMay 2024 8:16am Chronic fatigue syndromeacuteMay 2024 8:16amDepressionacuteMay 2024 8:16amDietary surveillance and counselingacuteMay 2024 8:16amExercise counselingacuteMay 2024 8:16amObesity, Class I, BMI 30-34.9acuteMay 2024 8:16amOCD (obsessive compulsive disorder)acuteMay 2024 8:16amPost- COVID syndromeacuteMay 2024 8:16amPOTS (postural orthostatic tachycardia syndrome)acuteMay 2024 8:16amPTSD (post-traumatic stress disorder)acuteMay 2024 8:16amGeneralized anxiety disorderacuteMay 2024 8:27amPost-COVID syndromeacuteMay 2024 8:27amPOTS (postural orthostatic tachycardia syndrome)acuteMay 2024 8:27amBMI 31.0-31.9,adultnoneactiveMay 2024 8:27amStrain of right biceps tendonnoneactiveJune 2024 12:05pmRight shoulder painnoneactiveJune 2024 12:05pm [facility] Work Phone: 1(889) 138-403804-19-2025 Evaluation note* Diagnosis Onset Date Resolution Status Admit Date Urinary frequency inactiveApril 2024 9:04amAbnormal weight gainacuteMay 2024 8:16am AnxietyacuteMay 2024 8:16amBMI 30.0-30.9,adultacuteMay 2024 8:16am Chronic fatigue syndromeacuteMay 2024 8:16amDepressionacuteMay 2024 8:16amDietary surveillance and counselingacuteMay 2024 8:16amExercise counselingacuteMay 2024 8:16amObesity, Class I, BMI 30-34.9acuteMay 2024 8:16amOCD (obsessive compulsive disorder)acuteMay 2024 8:16amPost- COVID syndromeacuteMay 2024 8:16amPOTS (postural orthostatic tachycardia syndrome)acuteMay 2024 8:16amPTSD (post-traumatic stress disorder)acuteMay 2024 8:16amGeneralized anxiety disorderacuteMay 2024 8:27amPost-COVID syndromeacuteMay 2024 8:27amPOTS (postural orthostatic tachycardia syndrome)acuteMay 2024 8:27amBMI 31.0-31.9,adultnoneactiveMay 2024 8:27amStrain of right biceps tendonnoneactiveJune 2024 12:05pmRight shoulder painnoneactiveJune 2024 12:05pmAbnormal weight gainacuteJune 2024 8:58amAnxietyacuteJune 2024 8:58amBMI 31.0-31.9,adultacuteJune 2024 8:58amChronic fatigue syndromeacuteJune 2024 8:58amDepressionacute Candida 2024 8:58amDietary surveillance and counselingacuteJune 2024 8:58amExercise counselingacuteJune 2024 8:58amObesity, Class I, BMI 30-34.9acuteJune 2024 8:58amOCD (obsessive compulsive disorder)acuteJune 2024 8:58amPost-COVID syndromeacuteJune 2024 8:58amPOTS (postural orthostatic tachycardia syndrome)acuteJune 2024 8:58amPTSD (post-traumatic stress disorder)acuteJune 2024 8:58am [facility] Work Phone: 1(920) 741-257204-19-2025 Evaluation note* Diagnosis Onset Date Resolution Status Admit Date Urinary frequency inactiveApril 2024 9:04amAbnormal weight gainacuteMay 2024 8:16am AnxietyacuteMay 2024 8:16amBMI 30.0-30.9,adultacuteMay 2024 8:16am Chronic fatigue syndromeacuteMay 2024 8:16amDepressionacuteMay 2024 8:16amDietary surveillance and counselingacuteMay 2024 8:16amExercise counselingacuteMay 2024 8:16amObesity, Class I, BMI 30-34.9acuteMay 2024 8:16amOCD (obsessive compulsive disorder)acuteMay 2024 8:16amPost- COVID syndromeacuteMay 2024 8:16amPOTS (postural orthostatic tachycardia syndrome)acuteMay 2024 8:16amPTSD (post-traumatic stress disorder)acuteMay 2024 8:16amGeneralized anxiety disorderacuteMay 2024 8:27amPost-COVID syndromeacuteMay 2024 8:27amPOTS (postural orthostatic tachycardia syndrome)acuteMay 2024 8:27amBMI 31.0-31.9,adultnoneactiveMay 2024 8:27amStrain of right biceps tendonnoneactiveJune 2024 12:05pmRight shoulder painnoneactiveJune 2024 12:05pmAbnormal weight gainacuteJune 2024 8:58amAnxietyacuteJune 2024 8:58amBMI 31.0-31.9,adultacuteJune 2024 8:58amChronic fatigue syndromeacuteJune 2024 8:58amDepressionacute Candida 2024 8:58amDietary surveillance and counselingacuteJune 2024 8:58amExercise counselingacuteJune 2024 8:58amObesity, Class I, BMI 30-34.9acuteJune 2024 8:58amOCD (obsessive compulsive disorder)acuteJune , 2025 8:58amPost-COVID syndromeacuteJune 2024 8:58amPOTS (postural orthostatic tachycardia syndrome)acuteJune 2024 8:58amPTSD (post-traumatic stress disorder)acuteJune 2024 8:58amAcute viral sinusitisnoneactiveJuly 2024 9:01amUrinary frequencynoneactiveJuly 2024 9:01am [facility] Work Phone: 1(105) 293-548004-10-2025 NoteHNO ID: [id number] Author: JUDY GAMEZ PSYD Service: ? Author Type: Psychologist Type: Progress Notes Filed: 05/22/2024 20:49 Note Text: GENERAL PSYCHOLOGY Session #: 42 Visit Type:The patient consented to a virtual visit and their location was confirmed. Pt at home today. SUBJECTIVE: She is feeling very tired, also feels indifferent sometimes Notes that she did not have mental health conditions prior to COVID Discussed experiences growing up, how she sets boundaries and navigates relationships Discussed a current family stressor PATIENT DATA: Generalized Anxiety Disorder Scale (ROSE MARIE-7) 03/26/2024 04/23/2024 05/22/2024 ROSE MARIE - 7 SCORES Score 18 7 12 (0-4) minimal anxiety, (5-9) mild anxiety, (10-14) moderate anxiety, (15-21) severe anxiety Patient Health Questionnaire (PHQ-9) 03/26/2024 04/23/2024 05/22/2024 PHQ-9 Score 20 15 13 (0-4) minimal depression, (5-9) mild depression, (10-14) moderate depression, (15-19) moderately severe depression, (20-27) severe depression PROMIS Global Health 06/27/2023 10/31/2023 03/26/2024 PROMIS Global Health - (T-Scores - the mean of general population = 50. Five points is a clinically meaningful difference.) Physical T-Score 29.6 29.6 23.5 Mental T-Score 21.2 21.2 21.2 PCL-5 Total Score: 65 (12/25/2023 9:09 AM) 33 = proposed cut-off score for PTSD symptoms warranting further investigation until further psychometric work is available <33 = subthreshold symptoms of PTSD >24 PTSD is a clinical concern, 33-36 probable PTSD, >37 significant PTSD OBJECTIVE: Affect and behavior were within normal limits for the situation. Mental Status Exam: General/Sensorium: Alert and AND interactive - Appearance: Appears well groomed and stated age - Demeanor: Appropriately interactive - Motor Activity: Normal - Speech: Appropriate - Mood: Reports feeling depressed - Reported as: indifferent Affect: Euthymic - Thought Process: Linear, logical, and goal-directed - Associations: Normal - Thought Content: Appropriate with no SI/HI/AVH - Cognition: Appears intact in regards to memory, attention/concentration, fund of knowledge and language skills - Insight: Good - Judgment: Good - ASSESSMENT: Patient was actively engaged in the session and demonstrated motivation towards therapy goals. Will likely benefit from continued psychotherapy to process traumatic stress. 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 [facility] [facility] History of Present illness Narrative* Judy Gamez PSYD - 05/22/2024 2:09 PM EDT GENERAL PSYCHOLOGY Session #: 42 Visit Type:The patient consented to a virtual visit and their location was confirmed. Pt at home today. SUBJECTIVE: She is feeling very tired, also feels indifferent sometimes Notes that she did not have mental health conditions prior to COVID Discussed experiences growing up, how she sets boundaries and navigates relationships Discussed a current family stressor PATIENT DATA: Generalized Anxiety Disorder Scale (ROSE MARIE-7) 03/26/2024 04/23/2024 05/22/2024 ROSE MARIE - 7 SCORES Score 18 7 12 (0-4) minimal anxiety, (5-9) mild anxiety, (10-14) moderate anxiety, (15-21) severe anxiety Patient Health Questionnaire (PHQ-9) 03/26/2024 04/23/2024 05/22/2024 PHQ-9 Score 20 15 13 (0-4) minimal depression, (5-9) mild depression, (10-14) moderate depression, (15-19) moderately severe depression, (20-27) severe depression PROMIS Global Health 06/27/2023 10/31/2023 03/26/2024 PROMIS Global Health - (T-Scores - the mean of general population = 50. Five points is a clinicallymeaningful difference.) Physical T-Score 29.6 29.6 23.5 Mental T-Score 21.2 21.2 21.2 PCL-5 Total Score: 65 (12/25/2023 9:09 AM) 33 = proposed cut-off score for PTSD symptoms warranting further investigation until further psychometric work is available <33 = subthreshold symptoms of PTSD >24 PTSD is a clinical concern, 33-36 probable PTSD, >37 significant PTSD OBJECTIVE: Affect and behavior were within normal limits for the situation. Mental Status Exam: General/Sensorium: Alert and & interactive - Appearance: Appears well groomed and stated age - Demeanor: Appropriately interactive - Motor Activity: Normal - Speech: Appropriate - Mood: Reports feeling depressed - Reported as: indifferent Affect: Euthymic - Thought Process: Linear, logical, and goal-directed - Associations: Normal - Thought Content: Appropriate with no SI/HI/AVH - Cognition: Appears intact in regards to memory, attention/concentration, fund of knowledge and language skills - Insight: Good - Judgment: Good - ASSESSMENT: Patient was actively engaged in the session and demonstrated motivation towards therapy goals. Willlikely benefit from continued psychotherapy to process traumatic stress. 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 Judy Gamez PSYD documented in this encounterCleveland [id number] NotePatient Education Sinus Infection, Adult A sinus infection is soreness and swelling (inflammation) of your sinuses. Sinuses are hollow spaces in the bones around your face. They are located: ??? Around your eyes. ??? In the middle of your forehead. ??? Behind your nose. ??? In your cheekbones. Your sinuses and nasal passages are lined with a fluid called mucus. Mucus drains out of your sinuses. Swelling can trap mucus in your sinuses. This lets germs (bacteria, virus, or fungus) grow, which leads to infection. Most of the time, this condition is caused by a virus. What are the causes? Allergies. ??? Asthma. ??? Germs. ??? Things that block your nose or sinuses. ??? Growths in the nose (nasal polyps). ??? Chemicals or irritants in the air. ??? A fungus. This is rare. What increases the risk? Having a weak body defense system (immune system). ??? Doing a lot of swimming or diving. ??? Using nasal sprays too much. ??? Smoking. What are the signs or symptoms? The main symptoms of this condition are pain and a feeling of pressure around the sinuses. Other symptoms include: ??? Stuffy nose (congestion). This may make it hard to breathe through your nose. ??? Runny nose (drainage). ??? Soreness, swelling, and warmth in the sinuses. ??? A cough that may get worse at night. ??? Being unable to smell and taste. ??? Mucus that collects in the throat or the back of the nose (postnasal drip). This may cause a sore throat or bad breath. ??? Being very tired (fatigued). ??? A fever. How is this diagnosed? Your symptoms. ??? Your medical history. ??? A physical exam. ??? Tests to find out if your condition is short-term (acute) or long-term (chronic). Your doctor may: ? Check your nose for growths (polyps). ? Check your sinuses using a tool that has a light on one end (endoscope). ? Check for allergies or germs. ? Do imaging tests, such as an MRI or CT scan. How is this treated? Treatment for this condition depends on the cause and whether it is short-term or long-term. ??? If caused by a virus, your symptoms should go away on their own within 10 days. You may be given medicines to relieve symptoms. They include: ? Medicines that shrink swollen tissue in the nose. ? A spray that treats swelling of the nostrils. ? Rinses that help get rid of thick mucus in your nose (nasal saline washes). ? Medicines that treat allergies (antihistamines). ? Elxa-nfm-nkkhvdt pain relievers. ??? If caused by bacteria, your doctor may wait to see if you will get better without treatment. You may be given antibiotic medicine if you have: ? A very bad infection. ? A weak body defense system. ??? If caused by growths in the nose, surgery may be needed. Follow these instructions at home: Medicines ??? Take, use, or apply hzyh-vwu-jslaygz and prescription medicines only as told by your doctor. These may include nasal sprays. ??? If you were prescribed an antibiotic medicine, take it as told by your doctor. Do not stop taking it even if you start to feel better. Hydrate and humidify ??? Drink enough water to keep your pee (urine) pale yellow. ??? Use a cool mist humidifier to keep the humidity level in your home above 50%. ??? Breathe in steam for 10?15 minutes, 3?4 times a day, or as told by your doctor. You can do thisin the bathroom while a hot shower is running. ??? Try not to spend time in cool or dry air. Rest ??? Rest as much as you can. ??? Sleep with your head raised (elevated). ??? Make sure you get enough sleep each night. General instructions ??? Put a warm, moist washcloth on your face 3?4 times a day, or as often as told by your doctor. ??? Use nasal saline washes as often as told by your doctor. ??? Wash your hands often with soap and water. If you cannot use soap and water, use hand fisher net. ??? Do not smoke. Avoid being around people who are smoking (secondhand smoke). ??? Keep all follow-up visits. Contact a doctor if: ??? You have a fever. ??? Your symptoms get worse. ??? Your symptoms do not get better within 10 days. Get help right away if: ??? You have a very bad headache. ??? You cannot stop vomiting. ??? You have very bad pain or swelling around your face or eyes. ??? You have trouble seeing. ??? You feel confused. ??? Your neck is stiff. ??? You have trouble breathing. These symptoms may be an emergency. Get help right away. Call 911. ??? Do not wait to see if the symptoms will go away. ??? Do not drive yourself to the hospital. Summary ??? A sinus infection is swelling of your sinuses. Sinuses are hollow spaces in the bones around your face. ??? This condition is caused by tissues in your nose that become inflamed or swollen. This traps germs. These can lead to infection. ??? If you were prescribed an antibiotic medicine, (more content not included)...[facility]03-13-2025 Telephone encounter Note* Telephone Encounter - Judy Gamez PSYD - 04/24/2024 9:45 AM EDT Can pt please be added to my calendar 05/22 at 2pm? Judy Gamez PsyD Psychologist Department of Psychiatry and Psychology [facility] [phone] 04/24/2024 [facility]03-13-2025 Miscellaneous Notes* Telephone Encounter - Judy Gamez PSYD - 04/24/2024 9:45 AM EDT Can pt please be added to my calendar 05/22 at 2pm? Judy Gamez PsyD Psychologist Department of Psychiatry and Psychology [facility] [phone] 04/24/2024 documented in this encounterCleveland [id number] NoteHNO ID: [id number] Author: JUDY GAMEZ PSYD Service: ? Author Type: Psychologist Type: Progress Notes Filed: 04/24/2024 10:07 Note Text: GENERAL PSYCHOLOGY Session #: 41 Visit Type:The patient consented to a virtual visit and their location was confirmed. SUBJECTIVE: Discussed stress related to legal case, communication with satellite manager Feels frustrated when given inaccurate information with regard to timing of things Stress at apartment building as well due to other tenants Plans to start going to gym to improve health, has a workout plan Working on going with the flow with eating and health Her top priorities for treatment are trauma, anxiety, depression PATIENT DATA: Generalized Anxiety Disorder Scale (ROSE MARIE-7) 12/25/2023 03/26/2024 04/23/2024 ROSE MARIE - 7 SCORES Score 10 18 7 (0-4) minimal anxiety, (5-9) mild anxiety, (10-14) moderate anxiety, (15-21) severe anxiety Patient Health Questionnaire (PHQ-9) 12/25/2023 03/26/2024 04/23/2024 PHQ-9 Score 7 20 15 (0-4) minimal depression, (5-9) mild depression, (10-14) moderate depression, (15-19) moderately severe depression, (20-27) severe depression PROMIS Global Health 06/27/2023 10/31/2023 03/26/2024 PROMIS Global Health - (T-Scores - the mean of general population = 50. Five points is a clinically meaningful difference.) Physical T-Score 29.6 29.6 23.5 Mental T-Score 21.2 21.2 21.2 OBJECTIVE: Affect and behavior were within normal limits for the situation. Mental Status Exam: General/Sensorium: AO X 4 - Appearance: Appears well groomed and stated age - Demeanor: Appropriately interactive - Motor Activity: Normal - Speech: Appropriate - Mood: Anxious and Reports feeling depressed - Affect: Congruent with mood - Thought Process: Linear, logical, and goal-directed - Associations: Normal - Thought Content: Appropriate with no SI/HI/AVH - Cognition: Appears intact in regards to memory, attention/concentration, fund of knowledge and language skills - Insight: Good - Judgment: Good - ASSESSMENT: Patient was actively engaged in the session and demonstrated motivation towards therapy goals. Will likely benefit from continued psychotherapy to process traumatic stress and support health behaviors. 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) POTS (postural orthostatic tachycardia syndrome) (F42.2) Mixed obsessional thoughts and acts (F34.1) Persistent depressive disorder with anxious distress, currently severe TREATMENT MODALITIES: Supportive Therapy PROGRESS TO DATE: Portal Administrator Progress: Progress Short Term Condition: Progress GOALS/OBJECTIVES/INTERVENTIONS: Process traumatic stress Discussed goals: - Prepare for EMDR (to see another provider for this in future as I do not have the training) - Emotion regulating - Letting things go - Stress management - Talk about family dynamics Approximately 50 minutes were spent with the patient doing therapy. Judy Gamez [facility]03-13-2025 History of Present illness Narrative* Judy Gamez [facility] - 04/24/2024 9:11 AM EDT GENERAL PSYCHOLOGY Session #: 41 Visit Type:The patient consented to a virtual visit and their location was confirmed. SUBJECTIVE: Discussed stress related to legal case, communication with satellite manager Feels frustrated when given inaccurate information with regard to timing of things Stress at apartment building as well due to other tenants Plans to start going to gym to improve health, has a workout plan Working on going with the flow with eating and health Her top priorities for treatment are trauma, anxiety, depression PATIENT DATA: Generalized Anxiety Disorder Scale (ROSE MARIE-7) 12/25/2023 03/26/2024 04/23/2024 ROSE MARIE - 7 SCORES Score 10 18 7 (0-4) minimal anxiety, (5-9) mild anxiety, (10-14) moderate anxiety, (15-21) severe anxiety Patient Health Questionnaire (PHQ-9) 12/25/2023 03/26/2024 04/23/2024 PHQ-9 Score 7 20 15 (0-4) minimal depression, (5-9) mild depression, (10-14) moderate depression, (15-19) moderately severe depression, (20-27) severe depression PROMIS Global Health 06/27/2023 10/31/202303/2603/26/2024 PROMIS Global Health - (T-Scores - the mean of general population = 50. Five points is a clinicallymeaningful difference.) Physical T-Score 29.6 29.6 23.5 Mental T-Score 21.2 21.2 21.2 OBJECTIVE: Affect and behavior were within normal limits for the situation. Mental Status Exam: General/Sensorium: AO X 4 - Appearance: Appears well groomed and stated age - Demeanor: Appropriately interactive - Motor Activity: Normal - Speech: Appropriate - Mood: Anxious and Reports feeling depressed - Affect: Congruent with mood - Thought Process: Linear, logical, and goal-directed - Associations: Normal - Thought Content: Appropriate with no SI/HI/AVH - Cognition: Appears intact in regards to memory, attention/concentration, fund of knowledge and language skills - Insight: Good - Judgment: Good - ASSESSMENT: Patient was actively engaged in the session and demonstrated motivation towards therapy goals. Willlikely benefit from continued psychotherapy to process traumatic stress and support health behaviors. 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) POTS (postural orthostatic tachycardia syndrome) (F42.2) Mixed obsessional thoughts and acts (F34.1) Persistent depressive disorder with anxious distress, currently severe TREATMENT MODALITIES: Supportive Therapy PROGRESS TO DATE: Portal Administrator Progress: Progress Short Term Condition: Progress GOALS/OBJECTIVES/INTERVENTIONS: Process traumatic stress Discussed goals: - Prepare for EMDR (to see another provider for this in future as I do not have the training) - Emotion regulating - Letting things go - Stress management - Talk about family dynamics Approximately 50 minutes were spent with the patient doing therapy. Judy Gamez PSYD documented in this encounterCinc[facility] Evaluation note* Diagnosis Onset Date Resolution Status Admit Date COVID-19 noneactiveFebruary 2024 9:54amCOVIDnoneactiveFebruary 2024 8:56am [facility] Work Phone: 1(535) 488-938702-14-2025 Evaluation note* Diagnosis Onset Date Resolution Status Admit Date COVID-19 noneactiveFebruary 2024 9:54amCOVIDnoneactiveFebruary 2024 8:56am Urinary frequencyacuteApril 2024 9:04am [facility] Work Phone: 1(676) 553-598702-14-2025 Evaluation note* Diagnosis Onset Date Resolution Status Admit Date COVID-19 noneactiveFebruary 2024 9:54amCOVIDnoneactiveFebruary 2024 8:56am Urinary frequencyinactiveApril 2024 9:04amAbnormal weight gainacuteMay 2024 8:16amAnxietyacuteMay 2024 8:16amBMI 30.0-30.9,adultacuteMay 2024 8:16amChronic fatigue syndromeacuteMay 2024 8:16amDepressionacuteMay 2024 8:16amDietary surveillance and counselingacuteMay 2024 8:16am Exercise counselingacuteMay 2024 8:16amObesity, Class I, BMI 30-34.9acute June 12, 2024 8:16amOCD (obsessive compulsive disorder)acuteMay 2024 8:16am Post-COVID syndromeacuteMay 2024 8:16amPOTS (postural orthostatic tachycardia syndrome)acuteMay 2024 8:16amPTSD (post-traumatic stress disorder)acuteMay 2024 8:16am [facility] Work Phone: 1(560) 944-458502-14-2025 Evaluation note* Diagnosis Onset Date Resolution Status Admit Date COVID-19 noneactiveFebruary 2024 9:54amCOVIDnoneactiveFebruary 2024 8:56am Urinary frequencyinactiveApril 2024 9:04amAbnormal weight gainacuteMay 2024 8:16amAnxietyacuteMay 2024 8:16amBMI 30.0-30.9,adultacuteMay 2024 8:16amChronic fatigue syndromeacuteMay 2024 8:16amDepressionacuteMay 2024 8:16amDietary surveillance and counselingacuteMay 2024 8:16am Exercise counselingacuteMay 2024 8:16amObesity, Class I, BMI 30-34.9acute June 12, 2024 8:16amOCD (obsessive compulsive disorder)acuteMay 2024 8:16am Post-COVID syndromeacuteMay 2024 8:16amPOTS (postural orthostatic tachycardia syndrome)acuteMay 2024 8:16amPTSD (post-traumatic stress disorder)acuteMay 2024 8:16amBMI 31.0-31.9,adultnoneactiveMay 2024 8:27am [facility] Work Phone: 1(958) 345-450502-12-2025 Telephone encounter Note* Telephone Encounter - Judy Gamez PSYD - 03/26/2024 10:19 AM EST Pt in need of rescheduling appointments which were cancelled due to my teaching schedule. She wouldlike to be scheduled for virtual appointments every 2 weeks for 8 visits (see FYI, can have max 8 appointments at a time for continuity for structured therapy). She does not need a phone call and requested to be scheduled for whatever is available in the mornings and I will MyChart message her whenit is scheduled. Can use dept use or [place] access slots for mornings. Thanks! Judy Gamez PsyD Psychologist Department of Psychiatry and Psychology [facility] [phone] 03/26/2024 [facility]02-12-2025 Miscellaneous Notes* Telephone Encounter - Judy Gamez PSYD - 03/26/2024 10:19 AM EST Pt in need of rescheduling appointments which were cancelled due to my teaching schedule. She wouldlike to be scheduled for virtual appointments every 2 weeks for 8 visits (see FYI, can have max 8 appointments at a time for continuity for structured therapy). She does not need a phone call and requested to be scheduled for whatever is available in the mornings and I will MyChart message her whenit is scheduled. Can use dept use or [place] access slots for mornings. Thanks! Judy Gamez PsyD Psychologist Department of Psychiatry and Psychology [facility] [phone] 03/26/2024 documented in this encounterCincinnati [facility]02-12-2025 NoteHNO ID: [id number] Author: JUDY GAMEZ PSYD Service: ? Author Type: Psychologist Type: Progress Notes Filed: 04/02/2024 15:40 Note Text: GENERAL PSYCHOLOGY Session #: 40 Visit Type:The patient consented to a virtual visit and their location was confirmed. Parked in her vehicle. SUBJECTIVE: Not doing well, a lot of things going on, mental health and physical health not doing well Ended up in hospital because was so sick from Norovirus Not sleeping - goes to bed by 6pm and tries to sleep, has Xanax as needed (approximately taking every other week), cannot take SSRIs due to side effects (it made her feel suicidal) Believes she is experiencing a functional freeze Feels like others do not listen to her Patient reported feeling harassed by someone from [employer] who is joining social media groups she is in resulting in her feeling harassed and stalked Waiting to hear back from [employer] PATIENT DATA: Generalized Anxiety Disorder Scale (ROSE MARIE-7) 12/11/2023 12/25/2023 03/26/2024 ROSE MARIE - 7 SCORES Score 10 10 18 (0-4) minimal anxiety, (5-9) mild anxiety, (10-14) moderate anxiety, (15-21) severe anxiety Patient Health Questionnaire (PHQ-9) 10/31/2023 12/25/2023 03/26/2024 PHQ-9 Score 16 7 20 (0-4) minimal depression, (5-9) mild depression, (10-14) moderate depression, (15-19) moderately severe depression, (20-27) severe depression PTSD Checklist for DSM-5 (PCL-5) 10/18/2021 07/27/2023 12/25/2023 PCL-5 PCL-5 Total Score 45 59 65 1. Repeated, disturbing, and unwanted memories of the stressful experience? Quite a bit Quite a bit Quite a bit 2. Repeated, disturbing dreams of the stressful experience? Not at all Quite a bit Moderately 33 = proposed cut-off score for PTSD symptoms warranting further investigation until further psychometric work is available <33 = subthreshold symptoms of PTSD >24 PTSD is a clinical concern, 33-36 probable PTSD, >37 significant PTSD PROMIS Global Health 06/27/2023 10/31/2023 03/26/2024 PROMIS Global Health - (T-Scores - the mean of general population = 50. Five points is a clinically meaningful difference.) Physical T-Score 29.6 29.6 23.5 Mental T-Score 21.2 21.2 21.2 12/26/2021 12/25/2023 YBOCS TOTAL SCORE 17 23 1. How much time do you spend on obsessive thoughts? 0-1 hrs/day 3-8 hrs/day 2. How much do your obsessive thoughts interfere with your personal, social, or work life? Definite but manageable Substantial interference 3. How much do your obsessive thoughts distress you? Moderate but manageable Moderate but manageable 4. How hard do you try to resist your obsessions? Try much of the time Try some of the time 5. How much control do you have over your obsessive thoughts? Some control Little control 6. How much time do you spend performing compulsive behaviors? 1-3 hrs/day 1-3 hrs/day 7. How much do your compulsive behaviors interfere with your personal, social, or work life? Mild Definite but manageable 8. How anxious would you feel if you were prevented from performing your compulsive behaviors? Moderate but manageable Moderate but manageable 9. How hard do you try to resist your compulsive behaviors? Try much of the time Try some of the time 10. How much control do you have over your compulsive behaviors? Little control Some control If the patient has BOTH obsessions and compulsions, total score thresholds are: 8-15 = Mild OCD 16-23 = Moderate OCD 24-31= Severe OCD 32-40 = Extreme OCD OBJECTIVE: Affect and behavior were within normal limits for the situation. Mental Status Exam: General/Sensorium: AO X 4 - Appearance: Appears well groomed and stated age - Demeanor: Appropriately interactive - Motor Activity: Normal - Speech: Appropriate - Mood: Reports feeling depressed and Anxious - Reported as: not doing well Affect: Full range and Anxious - Thought Process: Linear, logical, and goal-directed - Associations: Normal - Thought Content: Appropriate with no SI/HI/AVH - Perceptions: The patient does not appear internally stimulated - Cognition: Appears intact in regards to memory, attention/concentration, fund of knowledge and language skills - Insight: Good - Judgment: Good - ASSESSMENT: Patient was actively engaged in the session and demonstrated motivation towards therapy goals. Will likely benefit from continued psychotherapy to process traumatic stress. 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) POTS (postural orthostatic tachycardia syndrome) (F42.2) Mixed obsessional thoughts and acts TREATMENT MODALITIES: DBT, ACT PROGRESS TO DATE: Portal Administrator Progress: Limited Progress Short Term Condition: Regressed GOALS/OBJECTIVES/INTERVENTIONS: Validate emotional experience Identify connection between past and present experiences Provider to assist to schedule patient (more content not included)...[id number] History of Present illness Narrative* Judy Gamez PSYD - 03/26/2024 9:06 AM EST GENERAL PSYCHOLOGY Session #: 40 Visit Type:The patient consented to a virtual visit and their location was confirmed. Parked in [facility] [place]. SUBJECTIVE: Not doing well, a lot of things going on, mental health and physical health not doing well Ended up in hospital because was so sick from Norovirus Not sleeping - goes to bed by 6pm and tries to sleep, has Xanax as needed (approximately taking every other week), cannot take SSRIs due to side effects (it made her feel suicidal) Believes she is experiencing a functional freeze Feels like others do not listen to her Patient reported feeling harassed by someone from [employer] who is joining social media groups she is inresulting in her feeling harassed and stalked Waiting to hear back from director long term care disability PATIENT DATA: Generalized Anxiety Disorder Scale (ROSE MARIE-7) 12/11/2023 12/25/2023 03/26/2024 ROSE MARIE - 7 SCORES Score 10 10 18 (0-4) minimal anxiety, (5-9) mild anxiety, (10-14) moderate anxiety, (15-21) severe anxiety Patient Health Questionnaire (PHQ-9) 10/31/2023 12/25/2023 03/26/2024 PHQ-9 Score 16 7 20 (0-4) minimal depression, (5-9) mild depression, (10-14) moderate depression, (15-19) moderately severe depression, (20-27) severe depression PTSD Checklist for DSM-5 (PCL-5) 10/18/2021 07/27/2023 12/25/2023 PCL-5 PCL-5 Total Score 45 59 65 1. Repeated, disturbing, and unwanted memories of the stressful experience? Quite a bit Quite a bitQuite a bit 2. Repeated, disturbing dreams of the stressful experience? Not at all Quite a bit Moderately 33 = proposed cut-off score for PTSD symptoms warranting further investigation until further psychometric work is available <33 = subthreshold symptoms of PTSD >24 PTSD is a clinical concern, 33-36 probable PTSD, >37 significant PTSD PROMIS Global Health 06/27/2023 10/31/2023 03/26/2024 PROMIS Global Health - (T-Scores - the mean of general population = 50. Five points is a clinicallymeaningful difference.) Physical T-Score 29.6 29.6 23.5 Mental T-Score 21.2 21.2 21.2 12/26/2021 12/25/2023 YBOCS TOTAL SCORE 17 23 1. How much time do you spend on obsessive thoughts? 0-1 hrs/day 3-8 hrs/day 2. How much do your obsessive thoughts interfere with your personal, social, or work life? Definitebut manageable Substantial interference 3. How much do your obsessive thoughts distress you? Moderate but manageable Moderate but manageable 4. How hard do you try to resist your obsessions? Try much of the time Try some of the time 5. How much control do you have over your obsessive thoughts? Some control Little control 6. How much time do you spend performing compulsive behaviors? 1-3 hrs/day 1-3 hrs/day 7. How much do your compulsive behaviors interfere with your personal, social, or work life? Mild Definite but manageable 8. How anxious would you feel if you were prevented from performing your compulsive behaviors? Moderate but manageable Moderate but manageable 9. How hard do you try to resist your compulsive behaviors? Try much of the time Try some of the time 10. How much control do you have over your compulsive behaviors? Little control Some control If the patient has BOTH obsessions and compulsions, total score thresholds are: 8-15 = Mild OCD 16-23 = Moderate OCD 24-31= Severe OCD 32-40 = Extreme OCD OBJECTIVE: Affect and behavior were within normal limits for the situation. Mental Status Exam: General/Sensorium: AO X 4 - Appearance: Appears well groomed and stated age - Demeanor: Appropriately interactive - Motor Activity: Normal - Speech: Appropriate - Mood: Reports feeling depressed and Anxious - Reported as: not doing well Affect: Full range and Anxious - Thought Process: Linear, logical, and goal-directed - Associations: Normal - Thought Content: Appropriate with no SI/HI/AVH - Perceptions: The patient does not appear internally stimulated - Cognition: Appears intact in regards to memory, attention/concentration, fund of knowledge and language skills - Insight: Good - Judgment: Good - ASSESSMENT: Patient was actively engaged in the session and demonstrated motivation towards therapy goals. Willlikely benefit from continued psychotherapy to process traumatic stress. 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 Judy Gamez PSYD [facility] + Plan note Extracted from:Title:ED NoteAuthor:Yvonne Rausch DO ADate:02/17/24 Diarrhea, unspecified (R19.7 : Diarrhea, unspecified) Nausea, vomiting, and diarrhea (R11.2: Nausea with vomiting, unspecified) Orders: dicyclomine, 20 mg = 2 mL, Injection, IntraMuscular, Once, Stop date 02/17/24 2:12:00 EST, STAT, Start date 02/17/24 2:12:00 EST, 02/17/24 2:12:00 EST dicyclomine, 10 mg = 1 cap(s), Oral, QID, X 7 day(s), # 14 cap(s), Refills(s) 0, [id number], 164, cm, 02/17/24 2:04:00 EST, Height/Length Dosing, 82.5, kg, 02/17/24 2:04:00 EST, Weight Dosing loperamide, 4 mg = 2 tab(s), Tab, Oral, Once, Stop date 02/17/24 2:12:00 EST, STAT, Start date 02/17/24 2:12:00 EST, 02/17/24 2:12:00 EST meclizine, 25 mg = 2 tab(s), Tab, Oral, Once, Stop date 02/17/24 2:12:00 EST, STAT, Start date 02/17/24 2:12:00 EST, 02/17/24 2:12:00 EST metoclopramide, 10 mg = 1 tab(s), Oral, q6hr, # 12 tab(s), Refills(s) 0, [id number], 164, cm, 02/17/24 2:04:00 EST, Height/Length Dosing, 82.5, kg, 02/17/24 2:04:00 EST, Weight Dosing promethazine, 25 mg = 1 supp, Rectal, q6hr, PRN Nausea/Vomiting, # 6 EA, Refills(s) 0, [id number], 164, cm, 02/17/24 2:04:00 EST, Height/Length Dosing, 82.5, kg, 02/17/24 2:04:00 EST, Weight Dosing promethazine 25 mg + Sodium Chloride 0.9% intravenous solution 50 mL, Injection, IV Piggyback, Once, Stop date 02/17/24 2:12:00 EST, STAT, Start date 02/17/24 2:12:00 EST, 153 mL/hr, Infuse over 20 minute(s) Sodium Chloride 0.9% intravenous solution, 500 mL, Soln-IV, IV, Once, Stop date 02/17/24 2:12:00 EST, STAT, Start date 02/17/24 2:12:00 EST, 500 mL/hr, Infuse over 1, hour(s) Basic Metabolic Panel Beta hCG Qual CBC w/ Auto Diff eGFR Hepatic Function Panel Lipase Level UA with Cult Rflx [facility] 01-05-2025 Hospital Discharge instructions Patient Education 02/17/2024 03:43:17 Nausea and Vomiting, Adult, Abbi-ei-Tzqw Nausea and Vomiting, Adult Nausea is feeling that you have an upset stomach and that you are about to vomit. Vomiting is when food in your stomach forcefully comes out of your mouth. Vomiting can make you feel weak. If you vomit, or if you are not able to drink enough fluids, you may not have enough water in your body (get dehydrated). If you do not have enough water in your body, you may: Feel tired. Feel thirsty. Have a dry mouth. Have cracked lips. Pee (urinate) less often. Older adults and people with other diseases or a weak body defense system (immune system) are at higher risk for not having enough water in the body. If you feel like you may vomit or you vomit, it is important to follow instructions from your doctor about how to take care of yourself. Follow these instructions at home: Watch your symptoms for any changes. Tell your doctor about them. Eating and drinking Take an ORS (oral rehydration solution). This is a drink that is sold at pharmacies and stores. Drink clear fluids in small amounts as you are able, such as: ?Water. ?Ice chips. ?Fruit juice that has water added (diluted fruit juice). ?Low-calorie sports drinks. Eat bland, qwzk-rd-vdrfep foods in small amounts as you are able, such as: ?Bananas. ?Applesauce. ?Rice. ?Low-fat (lean) meats. ?Olivet. ?Crackers. Avoid drinking fluids that have a lot of sugar or caffeine in them. This includes energy drinks, sports drinks, and soda. Avoid alcohol. Avoid spicy or fatty foods. General instructions Take mwmg-lsi-ipxmrwa and prescription medicines only as told by your doctor. Drink enough fluid to keep your pee (urine) pale yellow. Wash your hands often with soap and water for at least 20 seconds. If you cannot use soap and water, use hand fisher net. Make sure that everyone in your home washes their hands well and often. Rest at home until you feel better. Watch your condition for any changes. Take slow and deep breaths when you feel like you may vomit. Keep all follow-up visits. Contact a doctor if: Your symptoms get worse. You have new symptoms. You have a fever. You cannot drink fluids without vomiting. You feel like you may vomit for more than 2 days. You feel light-headed or dizzy. You have a headache. You have muscle cramps. You have a rash. You have pain while peeing. Get help right away if: You have pain in your chest, neck, arm, or jaw. You feel very weak or you faint. You vomit again and again. You have vomit that is bright red or looks like black coffee grounds. You have bloody or black poop (stools) or poop that looks like tar. You have a very bad headache, a stiff neck, or both. You have very bad pain, cramping, or bloating in your belly (abdomen). You have trouble breathing. You are breathing very quickly. Your heart is beating very quickly. Your skin feels cold and clammy. You feel confused. You have signs of losing too much water in your body, such as: ?Dark pee, very little pee, or no pee. ?Cracked lips. ?Dry mouth. ?Sunken eyes. ?Sleepiness. ?Weakness. These symptoms may be an emergency. Get help right away. Call 911. Do not wait to see if the symptoms will go away. Do not drive yourself to the hospital. Summary Nausea is feeling that you have an upset stomach and that you are about to vomit. Vomiting is when food in your stomach comes out of your mouth. Follow instructions from your doctor about eating and drinking. Take gigc-omh-ajfwzff and prescription medicines only as told by your doctor. Contact your doctor if your symptoms get worse or you have new symptoms. Keep all follow-up visits. This information is not intended to replace advice given to you by your health care provider. Make sure you discuss any questions you have with your health care provider. Document Revised: 08/05/2021 Document Reviewed: 08/05/2021 [employer] Patient Education 2023 [place]. 02/17/2024 03:43:17 Diarrhea, Adult, Uhnl-st-Njhr Diarrhea, Adult Diarrhea is when you pass loose and sometimes watery poop (stool) often. Diarrhea can make you feelweak and cause you to lose water in your body (get dehydrated). Losing water in your body can causeyou to: Feel tired and thirsty. Have a dry mouth. Go pee (urinate) less often. Diarrhea often lasts 2 3 days. It can last longer if it is a sign of something more serious. Be sure to treat your diarrhea as told by your doctor. Follow these instructions at home: Eating and drinking Follow these instructions as told by your doctor: Take an ORS (oral rehydration solution). This is a drink that helps you replace fluids and mineralsyour body lost. It is sold at pharmacies and stores. Drink enough fluid to keep your pee (urine) pale yellow. ?Drink fluids such as: ?Water. You can also get fluids by sucking on ice chips. ?Diluted fruit juice. ?Low-calorie sports drinks. ?Milk. ?Avoid drinking fluids that have a lot of sugar or caffeine in them. These include soda, energy drinks, and regular sports drinks. ?Avoid alcohol. Eat bland, irjz-ko-foksrc foods in small amounts as you are able. These foods include: ?Bananas. ?Applesauce. ?Rice. ?Low-fat (lean) meats. ?Olivet. ?Crackers. Avoid spicy or fatty foods. Medicines Take reqv-pnp-xyirzwj and prescription medicines only as told by your doctor. If you were prescribed antibiotics, take them as told by your doctor. Do not stop taking them even if you start to feel better. General instructions Wash your hands often using soap and water for 20 seconds. If soap and water are not available, usehand fisher net. Others in your home should wash their hands as well. Wash your hands: ?After using the toilet or changing a diaper. ?Before preparing, cooking, or serving food. ?While caring for a sick person. ?While visiting someone in a hospital. Rest at home while you get better. Take a warm bath to help with any burning or pain from having diarrhea. Watch your condition for any changes. Contact a doctor if: You have a fever. Your diarrhea gets worse. You have new symptoms. You vomit every time you eat or drink. You feel light-headed, dizzy, or you have a headache. You have muscle cramps. You have signs of losing too much water in your body, such as: ?Dark pee, very little pee, or no pee. ?Cracked lips. ?Dry mouth. ?Sunken eyes. ?Sleepiness. ?Weakness. You have bloody or black poop or poop that looks like tar. You have very bad pain, cramping, or bloating in your belly (abdomen). Your skin feels cold and clammy. You feel confused. Get help right away if: You have chest pain. Your heart is beating very quickly. You have trouble breathing or you are breathing very quickly. You feel very weak or you faint. These symptoms may be an emergency. Get help right away. Call 911. Do not wait to see if the symptoms will go away. Do not drive yourself to the hospital. This information is not intended to replace advice given to you by your health care provider. Make sure you discuss any questions you have with your health care provider. Document Revised: 07/18/2022 Document Reviewed: 07/18/2022 [employer] Patient Education 2023 [place]. Follow Up Care 02/17/2024 01:59:06 With:MISHA SY Address: [facility] [address] [address] Business (1) When:02/20/2024 Comments:You can use the nausea medicine, pain medication as prescribed as needed for nausea and pain. Please follow-up with your primary care doctor for further evaluation and management. Please return to EDfor any new or worsening symptoms. [facility] 01-05-2025 NoteED Patient Education Note Gastroenterology Nausea and Vomiting, Adult Nausea is feeling that you have an upset stomach and that you are about to vomit. Vomiting is when food in your stomach forcefully comes out of your mouth. Vomiting can make you feel weak. If you vomit, or if you are not able to drink enough fluids, you may not have enough water in your body (get dehydrated). If you do not have enough water in your body, you may: ??? Feel tired. ??? Feel thirsty. ??? Have a dry mouth. ??? Have cracked lips. ??? Pee (urinate) less often. Older adults and people with other diseases or a weak body defense system (immune system) are at higher risk for not having enough water in the body. If you feel like you may vomit or you vomit, it is important to follow instructions from your doctor about how to take care of yourself. Follow these instructions at home: Watch your symptoms for any changes. Tell your doctor about them. Eating and drinking ??? Take an ORS (oral rehydration solution). This is a drink that is sold at pharmacies and stores. ??? Drink clear fluids in small amounts as you are able, such as: ? Water. ? Ice chips. ? Fruit juice that has water added (diluted fruit juice). ? Low-calorie sports drinks. ??? Eat bland, ivzf-je-bcieyg foods in small amounts as you are able, such as: ? Bananas. ? Applesauce. ? Rice. ? Low-fat (lean) meats. ? Olivet. ? Crackers. ??? Avoid drinking fluids that have a lot of sugar or caffeine in them. This includes energy drinks, sports drinks, and soda. ??? Avoid alcohol. ??? Avoid spicy or fatty foods. General instructions ??? Take aodv-oqw-vwbprvl and prescription medicines only as told by your doctor. ??? Drink enough fluid to keep your pee (urine) pale yellow. ??? Wash your hands often with soap and water for at least 20 seconds. If you cannot use soap and water, use hand fisher net. ??? Make sure that everyone in your home washes their hands well and often. ??? Rest at home until you feel better. ??? Watch your condition for any changes. ??? Take slow and deep breaths when you feel like you may vomit. ??? Keep all follow-up visits. Contact a doctor if: ??? Your symptoms get worse. ??? You have new symptoms. ??? You have a fever. ??? You cannot drink fluids without vomiting. ??? You feel like you may vomit for more than 2 days. ??? You feel light-headed or dizzy. ??? You have a headache. ??? You have muscle cramps. ??? You have a rash. ??? You have pain while peeing. Get help right away if: ??? You have pain in your chest, neck, arm, or jaw. ??? You feel very weak or you faint. ??? You vomit again and again. ??? You have vomit that is bright red or looks like black coffee grounds. ??? You have bloody or black poop (stools) or poop that looks like tar. ??? You have a very bad headache, a stiff neck, or both. ??? You have very bad pain, cramping, or bloating in your belly (abdomen). ??? You have trouble breathing. ??? You are breathing very quickly. ??? Your heart is beating very quickly. ??? Your skin feels cold and clammy. ??? You feel confused. ??? You have signs of losing too much water in your body, such as: ? Dark pee, very little pee, or no pee. ? Cracked lips. ? Dry mouth. ? Sunken eyes. ? Sleepiness. ? Weakness. These symptoms may be an emergency. Get help right away. Call 911. ??? Do not wait to see if the symptoms will go away. ??? Do not drive yourself to the hospital. Summary ??? Nausea is feeling that you have an upset stomach and that you are about to vomit. Vomiting is when food in your stomach comes out of your mouth. ??? Follow instructions from your doctor about eating and drinking. ??? Take ixtj-efq-xubxiil and prescription medicines only as told by your doctor. ??? Contact your doctor if your symptoms get worse or you have new symptoms. ??? Keep all follow-up visits. This information is not intended to replace advice given to you by your health care provider. Make sure you discuss any questions you have with your health care provider. Document Revised: 08/05/2021 Document Reviewed: 08/05/2021 [employer] Patient Education ? 2023 [employer] Infectious Disease Diarrhea, Adult Diarrhea is when you pass loose and sometimes watery poop (stool) often. Diarrhea can make you feelweak and cause you to lose water in your body (get dehydrated). Losing water in your body can causeyou to: ??? Feel tired and thirsty. ??? Have a dry mouth. ??? Go pee (urinate) less often. Diarrhea often lasts 2?3 days. It can last longer if it is a sign of something more serious. Be sure to treat your diarrhea as told by your doctor. Follow these instructions at home: Eating and drinking Follow these instructions as told by your doctor: ??? Take an ORS (ora (more content not included)...[facility] 01-24-2024 History of Present illness Narrative* WILDER Azevedo - 01/24/2024 10:30 AM EST [facility] AUTONOMIC PROGRAM AUTONOMIC FOLLOW-UP VISIT Rhett schulz MD Professor of Neurology [facility] Senior Attending Physician- [facility] [employer] [place] [employer] [place] [address] Office: [phone] Anti Air Warfare Operations Officer: Bruna Abebe (email: [email or web address]) Patient Information Date of : 1995 Home Address: [address] [address] Primary Care Physician: No primary care provider on file. Referring Physician: No referring provider defined for this encounter. 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 She has been having worse symptoms recently due to increased stress. Status of the 5 conservatives: -Water intake 1.5 L/day -Salt intake. Taking tabs -no compression stockings -has not elevated the bed -Unable to exercise Status of the symptoms: Emotions are better under control since starting the B12 injections. Chronic B12 deficiency has been an issue in the past. Since Covid in 2019, she has had GI issues and needed to frequently use Zofran. Has never seen GI. Still having lots of fatigue. BP is all over the place. Lots of dizziness, pre-syncope, chest pain, shortness of breath. Most recently has not been doing well, but contributes that to increased stress. Patient recently started semi-glutide. Findings on testing: Low B12 Low Carnitine Autonomic testing consistent with POTS PLAN/RECOMMENDATIONS: -continue B12 -Follow with PCP about GI issues -L-carnitine supplement -POTS PT -repeat vitamin B12 in March -Conservative measures reviewed in detail again. Need to work on water intake. -Consider research trial HPI Yolanda Aparicio is a 28 y.o. y/o female presenting to the Autonomic Program for a follow-up on autonomic work-up. This is follow-up visit 1 Interval History details See impression Initial History Post-covid POTS diagnosed initially at [facility]. Was started on naltrexone and metoprolol. WILDER Azevedo I spent 40 minutes with the patient, at least 50% of which were spent on treatment management and education. Rhett schulz MD Cosigned by Rhett Baez MD at 01/24/2024 5:09 PM EST [facility] Work Phone: 1(868) 282-677811-29-2024 Evaluation note* Diagnosis Onset Date Resolution Status Admit Date Acute sinusitis acuteNovember 2023 9:20amAnxietyacuteDecember 2023 8:23amChronic nauseaacuteDecember 2023 8:23amPOTS (postural orthostatic tachycardia syndrome)acuteDecember 2023 8:23amVitamin B12 deficiencyacuteDecember 2023 8:23amUrinary frequencyacuteJanuary 2024 9:01am [facility] Work Phone: 1(201) 531-610111-29-2024 Evaluation note* Diagnosis Onset Date Resolution Status Admit Date Acute sinusitis acuteNovember 2023 9:20amAnxietyacuteDecember 2023 8:23amChronic nauseaacuteDecember 2023 8:23amPOTS (postural orthostatic tachycardia syndrome)acuteDecember 2023 8:23amVitamin B12 deficiencyacuteDecember 2023 8:23amUrinary frequencyacuteJanuary 2024 9:01amCOVID-19 noneactiveFebruary 2024 9:54amCOVIDnoneactiveFebruary 2024 8:56am [facility] Work Phone: 1(685) 938-633611-12-2024 NoteHNO ID: [id number] Author: JUDY GAMEZ PSYD Service: ? Author Type: Psychologist Type: Progress Notes Filed: 01/02/2024 15:58 Note Text: GENERAL PSYCHOLOGY Session #: 39 (session count starts after PSYL NEW EVAL visit) Visit Type:The patient consented to a virtual visit and their location was confirmed. Parked at [employer] in [facility]. SUBJECTIVE: Discussed her PTSD and OCD symptoms - there have been a few times she has gone into stores without a mask, however, she regrets it after, thinks she is getting too comfortable and will get COVID again - noted there are certain topics she will talk about over and over, people will tell her that she will bring things up 10 times in a day If she sees something off in her home she has to fix it immediately She will want to add extra laundry soap Experiencing anger being around people - e.g. getting cut off in traffic States she did her tilt table test and POTS was confirmed Does think B12 is helping her mood, not currently interested in mental health medications PATIENT DATA: Generalized Anxiety Disorder Scale (ROSE MARIE-7) 10/31/2023 12/11/2023 12/25/2023 ROSE MARIE - 7 SCORES Score 16 10 10 (0-4) minimal anxiety, (5-9) mild anxiety, (10-14) moderate anxiety, (15-21) severe anxiety Patient Health Questionnaire (PHQ-9) 08/10/2023 10/31/2023 12/25/2023 PHQ-9 Score 10 16 7 (0-4) minimal depression, (5-9) mild depression, (10-14) moderate depression, (15-19) moderately severe depression, (20-27) severe depression PTSD Checklist for DSM-5 (PCL-5) 10/18/2021 07/27/2023 12/25/2023 PCL-5 PCL-5 Total Score 45 59 65 1. Repeated, disturbing, and unwanted memories of the stressful experience? Quite a bit Quite a bit Quite a bit 2. Repeated, disturbing dreams of the stressful experience? Not at all Quite a bit Moderately 33 = proposed cut-off score for PTSD symptoms warranting further investigation until further psychometric work is available <33 = subthreshold symptoms of PTSD >24 PTSD is a clinical concern, 33-36 probable PTSD, >37 significant PTSD PROMIS Global Health 01/25/2023 06/27/2023 10/31/2023 PROMIS Global Health - (T-Scores - the mean of general population = 50. Five points is a clinically meaningful difference.) Physical T-Score 29.6 29.6 29.6 Mental T-Score 21.2 21.2 21.2 12/26/2021 12/25/2023 YBOCS TOTAL SCORE 17 23 1. How much time do you spend on obsessive thoughts? 0-1 hrs/day 3-8 hrs/day 2. How much do your obsessive thoughts interfere with your personal, social, or work life? Definite but manageable Substantial interference 3. How much do your obsessive thoughts distress you? Moderate but manageable Moderate but manageable 4. How hard do you try to resist your obsessions? Try much of the time Try some of the time 5. How much control do you have over your obsessive thoughts? Some control Little control 6. How much time do you spend performing compulsive behaviors? 1-3 hrs/day 1-3 hrs/day 7. How much do your compulsive behaviors interfere with your personal, social, or work life? Mild Definite but manageable 8. How anxious would you feel if you were prevented from performing your compulsive behaviors? Moderate but manageable Moderate but manageable 9. How hard do you try to resist your compulsive behaviors? Try much of the time Try some of the time 10. How much control do you have over your compulsive behaviors? Little control Some control If the patient has BOTH obsessions and compulsions, total score thresholds are: 8-15 = Mild OCD 16-23 = Moderate OCD 24-31= Severe OCD 32-40 = Extreme OCD OBJECTIVE: Affect and behavior were within normal limits for the situation. Mental Status Exam: General/Sensorium: AO X 4 - Appearance: Appears well groomed and stated age - Demeanor: Appropriately interactive - Motor Activity: Normal - Speech: Appropriate - Mood: Anxious and Angry - Affect: Congruent with mood - Thought Process: Linear, logical, and goal-directed - Associations: Normal - Thought Content: Appropriate with no SI/HI/AVH - Perceptions: The patient does not appear internally stimulated - Cognition: Appears intact in regards to memory, attention/concentration, fund of knowledge and language skills - Insight: Good - Judgment: Good - ASSESSMENT: Yolanda Aparicio was actively engaged in the session and demonstrated motivation towards therapy goals. Will likely benefit from continued psychotherapy to process traumatic stress. 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) (F42.2) Mixed obsessional thoughts and acts TREATMENT MODALITIES: DBT, ACT PROGRESS TO DATE: Portal Administrator Progress: Progress Short Term Condition: Progress GOALS/OBJECTIVES/INTERVENTIONS: Pt identified goals - she would like to lose weight, has been discussing Ozempic with her PCP - to continue tr (more content not included)...[id number] History of Present illness Narrative* Judy Gamez PSYD - 12/25/2023 9:13 AM EST GENERAL PSYCHOLOGY Session #: 39 (session count starts after PSYL NEW EVAL visit) Visit Type:The patient consented to a virtual visit and their location was confirmed. Parked at [employer] in [facility]. SUBJECTIVE: Discussed her PTSD and OCD symptoms - there have been a few times she has gone into stores without a mask, however, she regrets it after, thinks she is getting too comfortable and will get COVID again - noted there are certain topics she will talk about over and over, people will tell her that she will bring things up 10 times in a day If she sees something off in her home she has to fix it immediately She will want to add extra laundry soap Experiencing anger being around people - e.g. getting cut off in traffic States she did her tilt table test and POTS was confirmed Does think B12 is helping her mood, not currently interested in mental health medications PATIENT DATA: Generalized Anxiety Disorder Scale (ROSE MARIE-7) 10/31/2023 12/11/2023 12/25/2023 ROSE MARIE - 7 SCORES Score 16 10 10 (0-4) minimal anxiety, (5-9) mild anxiety, (10-14) moderate anxiety, (15-21) severe anxiety Patient Health Questionnaire (PHQ-9) 08/10/2023 10/31/2023 12/25/2023 PHQ-9 Score 10 16 7 (0-4) minimal depression, (5-9) mild depression, (10-14) moderate depression, (15-19) moderately severe depression, (20-27) severe depression PTSD Checklist for DSM-5 (PCL-5) 10/18/2021 07/27/2023 12/25/2023 PCL-5 PCL-5 Total Score 45 59 65 1. Repeated, disturbing, and unwanted memories of the stressful experience? Quite a bit Quite a bitQuite a bit 2. Repeated, disturbing dreams of the stressful experience? Not at all Quite a bit Moderately 33 = proposed cut-off score for PTSD symptoms warranting further investigation until further psychometric work is available <33 = subthreshold symptoms of PTSD >24 PTSD is a clinical concern, 33-36 probable PTSD, >37 significant PTSD PROMIS Global Health 01/25/2023 06/27/2023 10/31/2023 PROMIS Global Health - (T-Scores - the mean of general population = 50. Five points is a clinicallymeaningful difference.) Physical T-Score 29.6 29.6 29.6 Mental T-Score 21.2 21.2 21.2 12/26/2021 12/25/2023 YBOCS TOTAL SCORE 17 23 1. How much time do you spend on obsessive thoughts? 0-1 hrs/day 3-8 hrs/day 2. How much do your obsessive thoughts interfere with your personal, social, or work life? Definitebut manageable Substantial interference 3. How much do your obsessive thoughts distress you? Moderate but manageable Moderate but manageable 4. How hard do you try to resist your obsessions? Try much of the time Try some of the time 5. How much control do you have over your obsessive thoughts? Some control Little control 6. How much time do you spend performing compulsive behaviors? 1-3 hrs/day 1-3 hrs/day 7. How much do your compulsive behaviors interfere with your personal, social, or work life? Mild Definite but manageable 8. How anxious would you feel if you were prevented from performing your compulsive behaviors? Moderate but manageable Moderate but manageable 9. How hard do you try to resist your compulsive behaviors? Try much of the time Try some of the time 10. How much control do you have over your compulsive behaviors? Little control Some control If the patient has BOTH obsessions and compulsions, total score thresholds are: 8-15 = Mild OCD 16-23 = Moderate OCD 24-31= Severe OCD 32-40 = Extreme OCD OBJECTIVE: Affect and behavior were within normal limits for the situation. Mental Status Exam: General/Sensorium: AO X 4 - Appearance: Appears well groomed and stated age - Demeanor: Appropriately interactive - Motor Activity: Normal - Speech: Appropriate - Mood: Anxious and Angry - Affect: Congruent with mood - Thought Process: Linear, logical, and goal-directed - Associations: Normal - Thought Content: Appropriate with no SI/HI/AVH - Perceptions: The patient does not appear internally stimulated - Cognition: Appears intact in regards to memory, attention/concentration, fund of knowledge and language skills - Insight: Good - Judgment: Good - ASSESSMENT: Yolanda Hackettwin was actively engaged in the session and demonstrated motivation towards therapy goals. Will likely benefit from continued psychotherapy to process traumatic stress. 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 Judy Gamez PSYD [facility] Telephone encounter Note * Telephone Encounter - Judy Gamez PSYD - 12/11/2023 1:48 PM EDT Can pt please be scheduled 12/24 at 9am and for 6 additional visits every 2 weeks from my soonest open slots? Pt can have up to 8 appointments at a time for continuity of care. Judy Gamez PsyD Psychologist Department of Psychiatry and Psychology [facility] [phone] 12/11/2023 [facility]10[facility] Miscellaneous Notes* Telephone Encounter - Judy Gamez PSYD - 12/11/2023 1:48 PM EDT Can pt please be scheduled 12/24 at 9am and for 6 additional visits every 2 weeks from my soonest open slots? Pt can have up to 8 appointments at a time for continuity of care. Judy Gamez PsyD Psychologist Department of Psychiatry and [place] [phone] 12/11/2023 documented in this encounterC[facility]10[facility]24 Telephone encounter Note * Telephone Encounter - Judy Gamez PSYD - 12/11/2023 12:45 PM EDT Was able to connect with pt in appointment. [facility] Miscellaneous Notes* Telephone Encounter - Judy Gamez PSYD - 12/11/2023 12:45 PM EDT Was able to connect with pt in appointment. documented in this encounterC[facility]10[facility]29-[facility]24 History of Present illness Narrative* Judy Gamez PSYD - 12/11/2023 12:37 PM EDT GENERAL PSYCHOLOGY Session #: 38 Visit Type:The patient consented to a virtual visit and their location was confirmed. Parked at [facility]. SUBJECTIVE: Discussed ongoing health concerns Having tests done soon Discussed experiences she attributes to effects of low B12 - e.g. road rage, depression, anger Wants to work on trying to move forward Does not want to Difficulty regulating emotions Would like to work on healing from trauma PATIENT DATA: Generalized Anxiety Disorder Scale (ROSE MARIE-7) 08/10/2023 10/31/2023 12/11/2023 ROSE MARIE - 7 SCORES Score 8 16 10 (0-4) minimal anxiety, (5-9) mild anxiety, (10-14) moderate anxiety, (15-21) severe anxiety Patient Health Questionnaire (PHQ-9) 07/27/2023 08/10/2023 10/31/2023 PHQ-9 Score 12 10 16 (0-4) minimal depression, (5-9) mild depression, (10-14) moderate depression, (15-19) moderately severe depression, (20-27) severe depression PTSD Checklist for DSM-5 (PCL-5) 04/18/2021 10/18/2021 07/27/2023 PCL-5 PCL-5 Total Score 49 45 59 1. Repeated, disturbing, and unwanted memories of the stressful experience? Quite a bit Quite a bitQuite a bit 2. Repeated, disturbing dreams of the stressful experience? Not at all Not at all Quite a bit 33 = proposed cut-off score for PTSD symptoms warranting further investigation until further psychometric work is available <33 = subthreshold symptoms of PTSD >24 PTSD is a clinical concern, 33-36 probable PTSD, >37 significant PTSD PROMIS Global Health 01/25/2023 06/27/2023 10/31/2023 PROMIS Global Health - (T-Scores - the mean of general population = 50. Five points is a clinicallymeaningful difference.) Physical T-Score 29.6 29.6 29.6 Mental T-Score 21.2 21.2 21.2 OBJECTIVE: Affect and behavior were within normal limits for the situation. Mental Status Exam: General/Sensorium: AO X 4 - Appearance: Appears well groomed and stated age - Demeanor: Appropriately interactive - Motor Activity: Normal - Speech: Appropriate - Mood: Angry - Affect: Congruent with mood - Thought Process: Linear, logical, and goal-directed - Associations: Normal - Thought Content: Appropriate with no SI/HI/AVH - Perceptions: The patient does not appear internally stimulated - Cognition: Appears intact in regards to memory, attention/concentration, fund of knowledge and language skills - Insight: Good - Judgment: Good - ASSESSMENT: Yolanda Aparicio was actively engaged in the session and demonstrated motivation towards therapy goals. Will likely benefit from continued psychotherapy to process traumatic stress. 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 Judy Gamez PSYD documented in this encounterCinc[facility]10[facility] Evaluation note* Diagnosis Onset Date Resolution Status Admit Date COVID-19 sandhya gonzalez acuteOctober 2023 8:59amPOTS (postural orthostatic tachycardia syndrome) acuteOctober 2023 8:59amVitamin B12 deficiencyacuteOctober 2023 8:59amBMI 32.0-32.9,adultnoneactiveOctober 2023 8:59amAcute sinusitisacute January 11, 2024 9:20amAnxietyacuteDecember 2023 8:23amChronic nausea acuteDeceer 2023 8:23amPOTS (postural orthostatic tachycardia syndrome) acuteDeceer 2023 8:23amVitamin B12 deficiencyacuteDeceer 2023 8:23am [facility] Work Phone: [phone] Evaluation note* Diagnosis Onset Date Resolution Status Admit Date COVID-19 sandhya ellingtonkim acuteOctober 2023 8:59amPOTS (postural orthostatic tachycardia syndrome) acuteOctober 2023 8:59amVitamin B12 deficiencyacuteOctober 2023 8:59amBMI 32.0-32.9,adultnoneactiveOctober 2023 8:59amAcute sinusitisacute January 11, 2024 9:20amAnxietyacuteDecember 2023 8:23amChronic nausea acuteDecember 2023 8:23amPOTS (postural orthostatic tachycardia syndrome) acuteDecember 2023 8:23amVitamin B12 deficiencyacuteDecember 2023 8:23amUrinary frequencyacuteJanuary 2024 9:01am [facility] Work Phone: [phone] Telephone encounter Note* Telephone Encounter - Judy Gamez PSYD - 10/31/2023 8:59 AM EDT Can pt please be added to my calendar on 11/15 at 9am? Thanks! [facility]09-[facility]-2024 Miscellaneous Notes* Telephone Encounter - Judy Gamez PSYD - 10/31/2023 8:59 AM EDT Can pt please be added to my calendar on 11/15 at 9am? Thanks! documented in this encounterC[facility]09-18-[facility] History of Present illness Narrative* Judy Gamez PSYD - 10/31/2023 8:08 AM EDT GENERAL PSYCHOLOGY Session #: 37 (session count starts after PSYL NEW EVAL visit) Visit Type:The patient consented to a virtual visit and their location was confirmed. SUBJECTIVE: Has seen new neurologist and will be doing a lot of tests Has been having digestive issues since having COVID - either really hungry or not Things are tingly States she dissociates and trauma blocks a lot, sometimes forgets her own phone # Has been getting speeding tickets and experiencing road rage Experiencing financial stress Worried regarding public speaking in class Has noticed herself misreading things PATIENT DATA: Generalized Anxiety Disorder Scale (ROSE MARIE-7) 07/27/2023 08/10/2023 10/31/2023 ROSE MARIE - 7 SCORES Score 7 8 16 (0-4) minimal anxiety, (5-9) mild anxiety, (10-14) moderate anxiety, (15-21) severe anxiety Patient Health Questionnaire (PHQ-9) 07/27/2023 08/10/2023 10/31/2023 PHQ-9 Score 12 10 16 (0-4) minimal depression, (5-9) mild depression, (10-14) moderate depression, (15-19) moderately severe depression, (20-27) severe depression PROMIS Global Health 01/25/2023 06/27/2023 10/31/2023 PROMIS Global Health - (T-Scores - the mean of general population = 50. Five points is a clinicallymeaningful difference.) Physical T-Score 29.6 29.6 29.6 Mental T-Score 21.2 21.2 21.2 PCL-5 Total Score: 59 (07/27/2023 10:28 AM) 33 = proposed cut-off score for PTSD symptoms warranting further investigation until further psychometric work is available <33 = subthreshold symptoms of PTSD >24 PTSD is a clinical concern, 33-36 probable PTSD, >37 significant PTSD OBJECTIVE: Affect and behavior were within normal limits for the situation. Mental Status Exam: General/Sensorium: AO X 4 - Appearance: Appears well groomed and stated age - Demeanor: Appropriately interactive - Motor Activity: Normal - Speech: Appropriate - Mood: Anxious and Reports feeling depressed - Affect: Congruent with mood - Thought Process: Linear, logical, and goal-directed - Associations: Normal - Thought Content: Appropriate with no SI/HI/AVH - Perceptions: The patient does not appear internally stimulated - Cognition: Appears intact in regards to memory, attention/concentration, fund of knowledge and language skills - Insight: Good - Judgment: Good - ASSESSMENT: Yolanda Aparicio was actively engaged in the session and demonstrated motivation towards therapy goals. Will likely benefit from continued psychotherapy to process traumatic stress. 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 Judy Gamez PSYD documented in this encounterCinc[facility]08-22-2024 History of Present illness Narrative* Rhett Baez MD - 10/04/2023 2:30 PM EDT [facility] AUTONOMIC PROGRAM Rhett schulz MD Professor of Neurology [facility] Senior Attending Physician- The [facility] [employer], [facility] Media Arts Professor, [place] [address] Office: [phone] Anti Air Warfare Operations Officer: Bruna Abebe (email: [email or web address]) AUTONOMIC NERVOUS SYSTEM CONSULTATION Patient Information Date of : 1995 [address] [address] Primary Care Physician: No primary care provider on file. Referring Physician: No referring provider defined for this encounter. Patient accompanied by: Self In addition to attending physician, patient seen by: Fab Zapata RN Compass 31 : 38 IMPRESSION: This is a case of post-COVID POTS. It goes back to 20 1:20 infection. [facility]. Her course was complicated by a psychiatrist event that necessitated a short hospitalization and a strict follow-up with psychiatry. There were also issues with the POTS team at the [facility] which led her to seek care elsewhere. Her symptoms are typical of POTS, including orthostatic lightheadedness, presyncope, headaches, visual obscuration, brain fog, chronic fatigue. She denies any symptoms preceding COVID, however she was already treated for dizziness at the [facility] by Dr. Jimenez Sandoval, thought to be cervicogen ic. PLAN/RECOMMENDATIONS: At this point I would like to reassess her autonomic nervous system, and try to find an etiology that could be potentially treatable and reversible. For this we will do autonomic testing, an EMG and an etiological blood and urine work. She does not display severe sicca symptoms to the point of doing a lip biopsy for Sjogren's as a first year examination. Ms. Aparicio does complain of orthostatic intolerance, which, in the absence of a definite core cause, will need to be treated symptomatically. I would recommend following the 5 conservative measures : 1. Wearing waist-high compression stockings 40-50 mmHg in compression, every day as long she is up and about and removing them at bedtime 2. Drinking one gallon of water a day 3. Eating at least 6 gm of salt (roughly 3 teaspoons) throughout her day. 4. Elevating the head of her bed 45 degrees (not by stacking pillows, but bending her mattress up and stacking bricks underneath). 5. Jogging in water 1 hour every day These measures should be tried strictly for a period of 2 to 3 months, and if they do not bring relief, continued usage of symptomatic pharmacological treatment would then be justified. GIGI Aparicio is a 28 y.o. right}-handed female presenting to the Autonomic Program for the evaluation of post-COVID POTS History details Symptoms of POTS started in 2019 after an episode of COVID-19 infection. She was evaluated and [facility]. She is on metoprolol and low- dose naltrexone. She is not sure if those treatments are helping her. Metoprolol was at 25 twice daily but this was causing more dizziness so now she is taking only 25 and 12.5 mg. She is still complaining of orthostatic lightheadedness, brain fog, chronic fatigue, headaches and visual obscuration. Relevant Past Medical History: Listed as having PTSD and under psych care AUTONOMIC REVIEW OF SYSTEMS COMPASS 31 for research purposes only (see below) Point Value Question Answer Options 1 1. In the past year, have you ever felt faint, dizzy, goofy , or had difficulty thinking soon after standing up from a sitting or lying position? Yes 2 2. When standing up, how frequently do you get these feelings or symptoms? Frequently 2 3. How would you rate the severity of these feelings or symptoms? Moderate 2 4. In the past year, have these feelings or symptoms that you have experienced: Gotten somewhat worse 7 28 0 5. In the past year, have you ever noticed color changes in your skin, such as red, white, or purple? (If you answer no, please skip to question 8) No 0 6. What parts of your body are affected by these color changes? 0 7. Have these changes in your skin color: 0 0 0 8. In the past 5 years, what changes, if any, have occurred in your general body sweating? I sweat somewhat more than I used to 0 9. Do your eyes feel excessively dry? No 1 10. Does you mouth feel excessively dry? Yes 1 11. For the symptom of dry eyes or dry mouth that you have had for the longest period of time, has this symptom: Stayed about the same 2 4 1 12. In the past year, have you noticed any changes in how quickly you get full when eating a meal? I get full more quickly now than I used to 1 13. In the past year, have you felt excessively full or persistently full (bloated feeling) aftera meal? Sometimes 0 14. In the past year, have you vomited after a meal? Never 0 15. In the past year, have you had a cramping or colicky abdominal pain? Never 0 16. In the past year, have you had any bouts of diarrhea? (If you answer no, please skip to question 20) No 0 17. How frequently does this occur? 0 18. How severe are these bouts of diarrhea? 0 19. Have your bouts of diarrhea gotten: 0 20. In the past year, have you been constipated? (If you answer no, please skip to question 24) No 0 21. How frequently are you constipated? 0 22. How severe are these episodes of constipation? 0 23. Has your constipation gotten: 2 2 0 24. In the past year, have you ever lost control of your bladder function? Never 1 25. In the past year, have you had difficulty passing urine? Occasionally 1 26. In the past year, have you had trouble completely emptying your bladder? Occasionally 2 2 2 27. In the past year, without sunglasses or tinted glasses, has bright light bothered your eyes? (If you bryant never, please skip to question 29) Frequently 2 28. How severe is this sensitivity to bright light? Moderate 0 29. In the past year, have you had trouble focusing your eyes? (If you bryant never, please skip toquestion 31) Never 0 30. How severe is this focusing problem? 1 31. Has the most troublesome symptom with your eyes (i.e. sensitivity to bright light or trouble focusing) gotten: Stayed about the same 5 [id number] TOTAL 38 /100 Additional Autonomic Review of Systems Genitourinary a. Erectile dysfunction N/A b. Ejaculation dysfunction N/A c. Vaginal dryness No d. Difficulty climaxing No Autoimmune symptoms a. Chronic joint pain Yes b. Chronic skin disease No c. Chronic muscle pain Yes GENERAL EXAMINATION Overall appearance: NAD, well-nourished, well-kempt, and pleasant Extremities: normal NEUROLOGICAL EXAMINATION A. Cognition and Language 1. Patient is alert, oriented to time, place and persons 2. Language normal 3. Dysarthria: not present 4. Memory: no apparent deficit 5. MMSE: N/A B. Cranial Nerves 1. Fundi: not examined 2. Olfaction: not tested 3. Eye movements: EOMI 4. Pupils: PERRLA 5. Facial sensation: normal 6. Facial motor: normal 7. Hearing: normal bilaterally 8. Palate: elevates symmetrically bilaterally 9. SCM: normal strength 10. Tongue: midline C. Motor examination (MRC [0 to 5] or modified MRC [pluses and minuses] classification) Motor examination is at 5 MRC throughout with normal strength in distal muscles such as toe flexionand extension D. Sensory examination 1. In the Lower Extremity a. There is a sensory gradient to pinprick, distal to proximal to approximately the lower 1/3 of the ramos b. There is a vibration perception gradient distal to proximal (based on a [employer] C-64Hz tuning fork) i. At the toe: 4 ii. At the MM: 6 c. Joint position sense intact at the toe 2. In the upper extremity: gradient in gloves distribution: NO. E. Reflexes (NINDS classification 0 to 4) Biceps: Right 1 Left 1 Triceps: Right 1 Left 1 BR: Right + Left + Knee: Right 1 Left 1 Ankles: Right 0 Left 0 F. Coordination F to N: Normal H to S: RICK: FFM: Normal G. Gait Patient felt lightheaded upon standing-up from supine position: Yes Normal gait Normal base Heel walking: Right Normal Left Normal Tiptoeing: Right Normal Left Normal Tandem: Normal Romberg test: Normal I spent 90 minutes with the patient, at least 50% of which were dedicated to education and detailing diagnostic plans and management. Rhett schulz MD [facility] Work Phone: [phone]) 526-645206-28-2024 Telephone encounter Note* Telephone Encounter - Judy Gamez PSYD - 08/10/2023 9:02 AM EDT Can pt please be added to my calendar 09/19 @ 8am? Thanks! [facility]06-28-2024 Miscellaneous Notes* Telephone Encounter - Judy Gamez PSYD - 08/10/2023 9:02 AM EDT Can pt please be added to my calendar 09/19 @ 8am? Thanks! documented in this encounterC[facility]06[facility] History of Present illness Narrative* Judy Gamez PSYD - 08/10/2023 8:04 AM EDT GENERAL PSYCHOLOGY Session #: 36 (session count starts after PSYL NEW EVAL visit) Visit Type:The patient consented to a virtual visit and their location was confirmed. SUBJECTIVE: Discussed communication styles that are helpful for her Discussed previous stressful healthcare experiences Has been feeling like she is startling easily, she will jump at little things Believes that LDN is helping her inflammation Taking hydroxyzine daily PATIENT DATA: Generalized Anxiety Disorder Scale (ROSE MARIE-7) 06/27/2023 07/27/2023 08/10/2023 ROSE MARIE - 7 SCORES Score 8 7 8 (0-4) minimal anxiety, (5-9) mild anxiety, (10-14) moderate anxiety, (15-21) severe anxiety Patient Health Questionnaire (PHQ-9) 06/27/2023 07/27/202308/10/2023 PHQ-9 Score 18 12 10 (0-4) minimal depression, (5-9) mild depression, (10-14) moderate depression, (15-19) moderately severe depression, (20-27) severe depression PTSD Checklist for DSM-5 (PCL-5) 04/18/2021 10/18/2021 07/27/2023 PCL-5 PCL-5 Total Score 49 45 59 1. Repeated, disturbing, and unwanted memories of the stressful experience? Quite a bit Quite a bitQuite a bit 2. Repeated, disturbing dreams of the stressful experience? Not at all Not at all Quite a bit 33 = proposed cut-off score for PTSD symptoms warranting further investigation until further psychometric work is available <33 = subthreshold symptoms of PTSD >24 PTSD is a clinical concern, 33-36 probable PTSD, >37 significant PTSD PROMIS Global Health 01/10/2023 01/25/2023 06/27/2023 PROMIS Global Health - (T-Scores - the mean of general population = 50. Five points is a clinicallymeaningful difference.) Physical T-Score 26.7 29.6 29.6 Mental T-Score 21.2 21.2 21.2 OBJECTIVE: Affect and behavior were within normal limits for the situation. Mental Status Exam: General/Sensorium: AO X 4 - Appearance: Appears well groomed and stated age - Demeanor: Appropriately interactive - Motor Activity: Normal - Speech: Appropriate - Mood: Anxious - Affect: Congruent with mood - Thought Process: Linear, logical, and goal-directed - Associations: Normal - Thought Content: Appropriate with no SI/HI/AVH - Perceptions: The patient does not appear internally stimulated - Cognition: Appears intact in regards to memory, attention/concentration, fund of knowledge and language skills - Insight: Good - Judgment: Good - ASSESSMENT: Yolanda Aparicio was actively engaged in the session and demonstrated motivation towards therapy goals. Will likely benefit from continued psychotherapy to process traumatic stress. 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) TREATMENT MODALITIES: DBT, ACT PROGRESS TO DATE: Intermediate Progress: Progress Short Term Condition: Progress GOALS/OBJECTIVES/INTERVENTIONS: Validate emotional experience Identify connection between past and present experiences Approximately 50 minutes were spent with the patient doing therapy. Judy Gamez PSYD documented in this encounterCinc[facility]06[facility] History of Present illness Narrative* Judy Gamez PSYD - 07/27/2023 10:35 AM EDT GENERAL PSYCHOLOGY Session #: 35 Visit Type:The patient consented to a virtual visit and their location was confirmed. Parked at [place] in [place]. SUBJECTIVE: Started school again - taking two classes Had trouble with one of her professors Not having energy to deal with some problems with school Will be starting low dose naltrexone Feeling tired interferes with exercising Tries not to think about memories that are associated with trauma PATIENT DATA: Generalized Anxiety Disorder Scale (ROSE MARIE-7) 01/25/2023 06/27/2023 07/27/2023 ROSE MARIE - 7 SCORES Score 18 8 7 (0-4) minimal anxiety, (5-9) mild anxiety, (10-14) moderate anxiety, (15-21) severe anxiety Patient Health Questionnaire (PHQ-9) 01/25/2023 06/27/2023 07/27/2023 PHQ-9 Score 20 18 12 (0-4) minimal depression, (5-9) mild depression, (10-14) moderate depression, (15-19) moderately severe depression, (20-27) severe depression PROMIS Global Health 01/10/2023 01/25/2023 06/27/2023 PROMIS Global Health - (T-Scores - the mean of general population = 50. Five points is a clinicallymeaningful difference.) Physical T-Score 26.7 29.6 29.6 Mental T-Score 21.2 21.2 21.2 OBJECTIVE: Affect and behavior were within normal limits for the situation. Mental Status Exam: General/Sensorium: AO X 4 - Appearance: Appears well groomed and stated age - Demeanor: Appropriately interactive - Motor Activity: Normal - Speech: Appropriate - Mood: Denies mood concerns - Reported as: states does not have a lot of time to think about feelings Affect: Sad/tearful - Thought Process: Linear, logical, and goal-directed - Associations: Normal - Thought Content: Appropriate with no SI/HI/AVH - Perceptions: The patient does not appear internally stimulated - Cognition: Appears intact in regards to memory, attention/concentration, fund of knowledge and language skills - Insight: Good - Judgment: Good - ASSESSMENT: Yolanda Aparicio was actively engaged in the session and demonstrated motivation towards therapy goals. Will likely benefit from continued psychotherapy to process traumatic stress. 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) TREATMENT MODALITIES: DBT, ACT PROGRESS TO DATE: Intermediate Progress: Progress Short Term Condition: Progress GOALS/OBJECTIVES/INTERVENTIONS: Validate emotional experience Identify connection between past and present experiences Approximately 55 minutes were spent with the patient doing therapy. Judy Gamez PSYD documented in this encounterCincinnati [facility]05-16-2024 History of Present illness Narrative* Judy Gamez PSYD - 06/28/2023 11:01 AM EDT GENERAL PSYCHOLOGY Session #: 34 Visit Type:The patient consented to a virtual visit and their location was confirmed. SUBJECTIVE: Saw cardiology which was a lot because had not seen a [facility] doctor for a long time Teared up in her appointment Has not found a POTS specialist and is on a waitlist in [place], scheduled with next year Was told her stress test results showed low functioning and it made sense that she would not be able to do things without fatigue PATIENT DATA: Generalized Anxiety Disorder Scale (ROSE MARIE-7) 01/18/2023 01/25/2023 06/27/2023 ROSE MARIE - 7 SCORES Score 21 18 8 (0-4) minimal anxiety, (5-9) mild anxiety, (10-14) moderate anxiety, (15-21) severe anxiety Patient Health Questionnaire (PHQ-9) 01/18/2023 01/25/2023 06/27/2023 PHQ-9 Score 20 20 18 (0-4) minimal depression, (5-9) mild depression, (10-14) moderate depression, (15-19) moderately severe depression, (20-27) severe depression PROMIS Global Health 01/10/2023 01/25/2023 06/27/2023 PROMIS Global Health - (T-Scores - the mean of general population = 50. Five points is a clinicallymeaningful difference.) Physical T-Score 26.7 29.6 29.6 Mental T-Score 21.2 21.2 21.2 PCL-5 Total Score: 45 (10/18/2021 8:25 AM) 33 = proposed cut-off score for PTSD symptoms warranting further investigation until further psychometric work is available <33 = subthreshold symptoms of PTSD >24 PTSD is a clinical concern, 33-36 probable PTSD, >37 significant PTSD OBJECTIVE: Affect and behavior were within normal limits for the situation. Mental Status Exam: General/Sensorium: AO X 4 - Appearance: Appears well groomed and stated age - Demeanor: Appropriately interactive - Motor Activity: Normal - Speech: Appropriate - Mood: Anxious - Affect: Anxious - Thought Process: Linear, logical, and goal-directed - Associations: Normal - Thought Content: Appropriate with no SI/HI/AVH - Perceptions: The patient does not appear internally stimulated - Cognition: Appears intact in regards to memory, attention/concentration, fund of knowledge and language skills - Insight: Good - Judgment: Good - ASSESSMENT: Yolanda Aparicio was actively engaged in the session and demonstrated motivation towards therapy goals. Will likely benefit from continued psychotherapy to process traumatic stress and anxiety. DIAGNOSIS: (F43.10) PTSD (post-traumatic stress disorder) (primary encounter diagnosis) (F42.2) Mixed obsessional thoughts and acts TREATMENT MODALITIES: DBT, ACT PROGRESS TO DATE: Intermediate Progress: Progress Short Term Condition: Progress GOALS/OBJECTIVES/INTERVENTIONS: Validate emotional experience Identify connection between past and present experiences Approximately 55 minutes were spent with the patient doing therapy. Judy Gamez PSYD documented in this encounterCinc[facility]04-23-2024 Telephone encounter Note * Telephone Encounter - Judy Gamez PSYD - 06/05/2023 2:55 PM EDT Can pt please be called to schedule 3 appointments and waitlisted if she would like? Judy Gamez PsyD Psychologist Department of Psychiatry and Psychology [facility] [phone] 06/05/2023 [facility]04-23-2024 Miscellaneous Notes* Telephone Encounter - Judy Gamez PSYD - 06/05/2023 2:55 PM EDT Can pt please be called to schedule 3 appointments and waitlisted if she would like? Judy Gamez PsyD Psychologist Department of Psychiatry and Psychology [facility] [phone] 06/05/2023 documented in this encounterCinc[facility]04-23-2024 History of Present illness Narrative* Brandan Peguero, - 06/05/2023 10:00 AM EDT Images from the original note were not included. [facility] Ferrara Department of Cardiovascular Medicine SECTION OF CARDIAC PACING and ELECTROPHYSIOLOGY OUTPATIENT VISIT DATE June 05, 2023 OUTPATIENT VISIT TYPE NEW PRIMARY CARE PHYSICIAN: Misha Sy [address] [facility] [address] [place] [address] REFERRING PHYSICIAN: Jaskaran Guzman [phone] [facility] [id number] CHIEF COMPLAINT: tachycardia HISTORY OF PRESENT ILLNESS: Ms. Aparicio is a 27 year old female who presents today for an opinion regarding tachycardia. Her monitors rule out IST. She had a neurotilt consistent with POTS. She has been on metoprolol but had difficulties with hypotension. She has previously been on propranolol, ivabradine, midodrine. She has been to cardiac rehab and seen funcitonal medicine. She has a history of COVID with post covid syndrome, history of PTSD and been seeing psychology. She relates she had COVID in January 2020. She only had one bout that she is aware. She had vertigo but was doing well for about a year and a half prior. Her current symptoms, chest pain, tachycardia, shortness of breath, brain fog, dizziness with near syncope, exercise intolerence, chronic nausea has taken phenergan daily. Has not seen GI for this. No diarrhea or constipation. EST 03/01/2023 Resting HR: 89 bpm Peak HR: 171 bpm (90% MPHR) Resting BP: 112 / 80 mmHg Peak BP: 112 / 70 mmHg Total exercise time: 5 minutes 19 seconds METS achieved: 5.4 Chronotropic response index (CRI): 0.81 Heart rate recovery (HRR): 25 bpm Rate Pressure Product (RPP): 70079 Sosa Treadmill Score: 5.3 Stress Exercise Observations: Reason for test termination: general fatigue, Symptoms during test: Other symptoms during the test included cyanosis and lightheadedness, Heart rate response: Adequate heart rate response, Normal CRI (> 0.62 on B Yariel) and Normal HRR (>12 or >[address]/EC), Blood pressure response: SBP failed to increase 10 mmHg, ST segment and T wave changes: No ST changes, Sosa Treadmill Score: Normal Sosa Treadmill Score (>=5) and Arrhythmias: No arrhythmias Comments: Baseline HR increaes for 89 to 148 within first stage. Poor exercise tolerance. Inadequate BP response Holter 02/24/2021 IMPRESSIONS AND FINDINGS: The rhythm was sinus/sinus arrhythmia with periods of sinus bradycardia and sinus tachycardia. Maximum HR 158 bpm. Minimum HR 48 bpm. Average 72 bpm. Rare supraventricular ectopics as singles and triplets. A run of SVT lasted 11 beats at rate 147 bpm. No ventricular ectopy present. Patient symptoms sitting/laying, chest/back pain, burning? and standing, woozy both correlated with sinus rhythm while walking/sitting up, palpitations, SOB and walking upstairs with groceries, leg weakness/dizzy/SOB both correlated with sinus tachycardia. Echo 11/23/2020 CONCLUSIONS: - Exam indication: S/P COVID; SOB - The left ventricle is normal in size. Left ventricular systolic function is normal. EF = 61 5% (2D biplane) Normal left ventricular diastolic function. - The right ventricle is normal in size. Right ventricular systolic function is normal. - There are no significant valvular abnormalities. - The patient has not had a prior CC echocardiographic exam for comparison. EST 11/12/2020 Stress ECG Conclusion: Conclusion: Abnormal due to Chest discomfort and Poor functional capacity Prior exam comparison: No prior CC exam Stress ECG Summary: The patient's resting heart rate was 70 bpm and blood pressure was 102/82 mmHg. The test was terminated due to general fatigue and shortness of breath. Other symptoms during the test included chest discomfort, dizziness and palpitations. The patient exercised according to the Domingo 0% protocol. Total exercise time was 12 minutes and 0 seconds. The estimated MET level achieved was 7.3 using the FRIEND equation. This represents poor functional capacity for age and gender. The maximum heart rate was 181 bpm, which is 94% of the predicted heart rate for age. This is an adequate heart rate response. Peak blood pressure was 140/90 mmHg. The double product achieved was [address]. Indication: Shortness of breath, Dizziness or vertigo, Fatigue and Non-angina chest pain Medical History and Comorbidities: Postural Orthostatic Tachycardia Syndrome (POTS) and former smoker. Holter 11/01/2020 IMPRESSIONS AND FINDINGS: The rhythm was sinus/sinus arrhythmia with periods of sinus bradycardia and sinus tachycardia. Maximum HR 174 bpm. Minimum HR 47 bpm. Average 86 bpm. Rare ventricular ectopy in isolation and couplets. Rare supraventricular ectopics as singles and a couplet. Patient symptoms walking/stopped at gas station, lightheaded, felt like I could collapse, walking up stairs, lightheaded, dizzy, SOB, chest pain, collapse, light jog/walk back, SOB, chest pain, tachy, and walking outside, SOB, woozy all correlated with sinus tachycardia. Alvin Pedersen, CCT TTT 11/01/2020 * FINAL IMPRESSIONS * - The test was stopped early at 38 out of 45 minutes of 70 degree tilt. - Systolic blood pressures: 118 mmHg at start to 100 mmHg at end of tilt. - Diastolic blood pressures: 77 mmHg at start to 63 mmHg at end of tilt. - Blood pressure upon return to supine position was 120/62 mmHg. - Heart rates: 74 bpm at start to 109 bpm at end of tilt. - Heart rate upon return to supine position was 64 bpm. - Patient signs/symptoms included: CH. PAIN, DIAPHORESIS, DIZZINESS, HOT, LEG FATIGUE, LIGHTHEADED, LIGHTHEADEDNESS, NAUSEA, PAIN, SEE NOTE. - Overall: The test is diagnostic for accentuated postural tachycardia with early rise in heart rate. Stage Sbp Dbp Hr Ecg Symptoms Comments C-01 121 80 76 12L 1122 C-02 114 76 70 C-03 120 76 75 Arm Cuff BP's in this column C-Mean 118 77 74 Baseline continuous BP: 117/76 30- 124 82 74 LIGHTHEADED, 127/82; 12L 1127 NAUSEA 30- 121 81 94 30- 45- 121 88 93 LIGHTHEADED, 125/83; 12L 1129 NAUSEA 45- 121 83 92 SEE NOTE leg weakness 45- 70- 120 75 91 144/77; 12L 1131 70-02 124 76 99 70-03 115 73 105 70-04 121 74 108 CH. PAIN 04/21; 12L 1135 rate 70-05 121 79 105 70-06 119 76 108 LEG FATIGUE 126/80 70-07 116 71 104 70-08 119 77 105 70-09 120 77 103 70-10 116 75 110 129/85; 12L 1141 70-11 122 80 104 70-12 119 78 112 70-13 119 74 116 NURSING INTAKE HISTORY: Ms. Aparicio is a 27 year old female who presents today for POTS, tachycardia and palpitations. Her symptoms developed after a COVID 19 infection in January 2020. She had a TTT in 2020 that was positive for POTS. Her holter showed an average heart rate of 86. Symptoms correlated with tachycardia. She achieved 7.3 mets on her EST in 2020 and her echo was normal. She established with Jaskaran Guzman 10/11/2020 and has had ongoing issues of dizziness, lightheadedness, fatigue, near syncope and tachycardia. She has increased her salt and fluid intake. Metoprolol helped with chest pain and tachycardiabut was difficult to titrate due to hypotension. She has been tried on ivabradine (made her dizzy, r oom spinning), midodrine (htn) and propranolol (dizzy, room spinning) as well. She has done cardiacrehab (wants to do at a facility, no motivation to be consistent at home) and physical therapy. Shehas seen Dr. Sandoval in the past for preexisting vertigo and participated in vestibular therapy in [place]. She has seen functional medicine (only two visits) and done [facility]. She achieved 5.4 METS on her EST in February of 2023. She is most bothered by chest pain, shortness of breath and lightheadedness. She feels naltrexone may be helping a little bit with nausea. She drinks 3-4 bottles of water a day. She salts her food. She has not been wearing compression. She is not currently doing any exercise. She spends more time laying down than standing up. Her CTA was not covered by her insurance. She denies cough, edema, PND or syncope. 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) Postural orthostatic tachycardia syndrome 11/01/2020 PAST SURGICAL HISTORY Procedure Laterality Date NONE SOCIAL HISTORY Social History Tobacco Use Smoking status: Former Packs/day: 0.30 Years: 5.00 Additional pack years: 0.00 Total pack years: 1.50 Types: Cigarettes Quit date: 02/13/2016 Years since quittin.3 Smokeless tobacco: Never Vaping Use Vaping Use: Never used Substance Use Topics Alcohol use: No Drug use: Never FAMILY HISTORY Problem Relation Age of Onset Hypertension Father Hyperlipidemia Father Hyperlipidemia Maternal Grandmother other (afib) Maternal Grandmother Heart Attack Paternal Grandmother ALLERGIES: ALLERGIES Allergen Reactions Modafinil Mental Status Change Amoxicillin-Pot Cla* Other: See Comments extreme dizziness Bactrim [Sulfametho* GI Upset Cephalexin Unknown Ciprofloxacin Unknown Lexapro [Escitalopr* GI Upset [place] Juice Rash Sertraline Mental Status Change, Other: See Comments Trimethoprim Other: See Comments MEDICATIONS: nitroglycerin sublingual (NITROQUICK) 0.3 mg SL tablet Dissolve 1 tablet under the tongue one time only for 1 dose. To be administered in Radiology for CTA exam tiZANidine (ZANAFLEX) 4 mg tablet take 1 tablet by mouth everyday at bedtime gabapentin (NEURONTIN) 100 mg capsule Take 2 capsules by mouth once daily. (taken with 300mg capsule) gabapentin (NEURONTIN) 300 mg capsule 1 capsule at bedtime (taken with two 100 mg capsules) hydrOXYzine HCl (ATARAX) 10 mg tablet Take 1 tablet by mouth three times daily as needed. metoprolol tartrate, short acting, (LOPRESSOR) 25 mg tablet Take 25 mg by mouth twice daily. 12.5 mg in the morning and 25 mg in the evening sodium chloride 1 g tab Take 2 g by mouth three times daily. 1 gram in morning and 1 gram in evening fluticasone (FLONASE) 50 mcg/actuation nasal spray Use 2 Sprays in each nostril once daily. acetaminophen (ACETAMINOPHEN EXTRA STRENGTH) 500 mg tablet Take 500 mg by mouth every 6 hours as needed for pain. meclizine (ANTIVERT) 25 mg tab Take 50 mg by mouth three times daily as needed (TID PRN). As neededTID ondansetron orally disintegrating (ZOFRAN ODT) 4 mg disintegrating tablet Take 4 mg by mouth every 6 hours as needed for nausea/vomiting. ibuprofen (MOTRIN) 200 mg tablet Take 200 mg by mouth every 6 hours as needed for pain. acetaminophen (TYLENOL) 500 mg tablet Take 500 mg by mouth as needed. REVIEW OF SYSTEMS: GENERAL: Positive for:Weight gain, Weakness, and Sleep difficulties HEENT: Negative for: Headache, Impaired Vision, Glasses, Hearing Impairment, Ringing in Ears, Nosebleeds, Poor Dental Care, Bleeding Gums and Dentures. NECK: Negative for: Swelling, Pain, Stiffness RESPIRATORY: Positive for: Shortness of breath GASTROINTESTINAL: Negative for: Trouble swallowing, Heartburn, Change in bowel habits, Blood in stool, Dark black stools MUSCULOSKELETAL: Positive for: Muscle or joint pain and Stiffness NEUROLOGIC/PSYCHIATRIC: Positive for: Weakness, Paralysis, Numbness, Tingling, Tremor, Nervousness or anxiety, Depressed mood, Memory loss SKIN: Negative for: Rash, Itching HEMATOLOGICAL/LYMPHATIC: Negative for: Easy bruising, Easy bleeding ENDOCRINE: Positive for: Heat or cold intolerance, Excessive sweating, Frequent urination, and Frequent thirst [facility] Syncope Center Score Please estimate the frequency of the following symptoms: Never-0, Rare-1, Occasional-2, Frequent-3, Daily-4, Constant*-5 Symptoms Subtotal Syncope/Near Syncope Score 3 Dizziness/Lightheadedness Score 4 Exercise Intolerance Score 5 Headache Score 5 Sleep Problems Score 4 Total Frequency Score 17 *For syncope/near syncope multiple episodes daily Please estimate the severity of the following symptoms: None-0, Minimal-1, Mild-2, Moderate-3, Severe-4, Intolerable-5 Symptoms Subtotal Palpitations/Tachycardia Score 3 Fatigue Score 4 Brain Fog Score 3 Shortness of Breath Score 3 GI Symptoms Score* 3 Total Severity Score 16 *GI symptoms include nausea, bloating, diarrhea, constipation, poor appetite, abdominal pain, earlysatiety Total of Both Sections: 33 Wilma Chong RN PHYSICAL EXAMINATION: BP w/Orthostatic Vitals Date and Time Orthostatic BP Orthostatic Pulse BP Pulse BP Position BP Site BP Cuff Size 06/05/23 1011 133/95 92 -- -- Standing -- -- 06/05/23 1010 119/72 59 -- -- Supine -- -- LMP 09/05/2020 (Within Weeks) General: Well appearing, in no acute distress. Skin: No clubbing, no cyanosis. Eyes: Extra ocular movements intact Neck: No jugular venous distention, no carotid bruits, carotids have a normal upstroke, no palpablethyromegaly. Lungs: Clear to auscultation bilaterally, no wheezing or rhonchi. Heart: Regular rhythm, PMI not displaced, S1, S2 normal, no S3, no S4, no heaves, no rub and no murmur. Abdomen: Soft, nontender, bowel sounds normal, no palpable organomegaly, no bruits. Extremities: No peripheral edema . Grade 2/4 distal pulses bilaterally. Neuro: Oriented to person, place and time, alert, cooperative, gait coordinated. CARDIOVASCULAR MEDICINE TESTING: Electrocardiogram: sinus 56 bpm I have personally reviewed the Electrocardiogram. IMPRESSION: 1. Post-COVID syndrome - ICD9: 139.8, ICD10: U09.9 (primary diagnosis) 2. POTS (postural orthostatic tachycardia syndrome) - ICD9: 427.89, ICD10: G90.A 3. Chest discomfort - ICD9: 786.59, ICD10: R07.89 4. Tachycardia - ICD9: 785.0, ICD10: R00.0 PLAN AND RECOMMENDATIONS: I reviewed with Yolanda her prior stress tests and highlighted the decline in her functional capacity which is due to worsening deconditioning, we reviewed her tilt test. We discussed her primary diagnosis is post COVID syndrome which is more important than a diagnosis of POTS and I discussed why this is important and compared the disorders, how they are similar,how they differ and why post COVID is more a concern. With long standing post COVID this is a variant of chronic fatigue syndrome and we discussed why this matters. We discussed with POTS the most important thing she can due is follow a progressive exercise program to improve functional capacity, but with long COVID/CFS the most impor tant thing she can do is avoid PEM. She has already been tried on all the usual medications for POTS, nothing for me to add in this regard, she has been referred to cardiac rehab and PT, she has beento functional medicine, she has struggled due to workers comp related issues and that they are no longer covering her treatment, she has struggled with her mental well being and the affects this has on her symptoms and ability to recover and was seeing psychology, but she relates that they told herthey couldn't move on until her workers comp issues were resolved? I discussed with Yolanda there isno pathway forward that doesn't involve her being incharge of her managing her own symptoms and well being and no one can improve her functional capacity for her. I discussed PEM and the importance of recognizing and avoiding it. We discussed she needs to start with very low amounts of exercise, she is not capable of cardiac rehab at this juncture, I recommendshe start with 5 minutes three days a week of peddling on a recumbent bike and we discussed how to monitor tolerance and avoid PEM, we discussed she can progress at her own rate and I expect it will take likely 3 to 6 months to build up to 20 -30 minutes three days a week, once she tolerates that she can add in low intensity resistance training and we can refer to cardiac rehab. I stressed the importance of charting her activity sessions and understanding that she only needs to complete the planned exercise component and the value is consistency and progression over time. Wediscussed this progress is self directed so she can manage her tolerance and avoid PEM. Her mental aspect I believe is her biggest impediment, we discussed she needs to be able to accept her current symptoms and quality of life and to approach each day, one at a time with the collectivegaol to improve how she feels and this will take a lot of time, likely more than a year and possibly years to achieve. That she will need to start small and progress gradually as she tolerates. To find balance with her recoverability. We discussed being her own self advocate. Management of Fatigue and Postexertional Malaise (PEM) Management of chronic fatigue starts with avoiding post exertional malaise (PEM). Its important to establish an energy plan for the day. Consider your energy as a savings account and you have only that amount to use until your body restores itself. Recovery is often a limiting factor at how quicklyand effectively, you are able to recover. You can only do activities that you are able to adequately recover from. When you over exert yourself or use energy that you do not have sufficient recovery from, this will result in post exertional malaise. Continued activities despite PEM will result in stacking and this can result in inability to recover or worsening of symptoms that can lead to further decline. Don't vary you activity levels too much based on a good day and a bad day, as you may not appreciate you have overdone it until the following day. Make recovery a priority. Good sleep habits are essential, if you feel you have a sleep disorder seek an evaluation with sleep medicine. Recovery goes beyond getting adequate sleep, as even brief breaks in activity or periods of rest can aid recovery and help avoid PEM. Use pacing techniques, break activities up in to components and try to accomplish one component at a time, space out activities to allow recovery between. Prioritize activities and place your energies on the most essential first. You may have to make some hard choices, you may have to say no to some activities that would be nice to accomplish but have less priority as the cumulative tasks exceed your energy levels. Use tools and technologies that make activities easier or less taxing. Ask forhelp or delegate when appropriate Be realistic about what your energy levels are and try not to do activities that the intensity or duration would exceed your energy levels or your ability to adequately recover for. Be mindful of what activities are essential and what are convenient. I recommend caution with progressive exercise programs. Some ME/CFS patients symptoms will worsen if undertaking a vigorous exercise program. Only take on activities that you feel are within your energy levels and periodically monitor your recovery. If you find yourself suffering from PEM, reflect on what activities preceded it (these are often from the prior day or days) and determine when possible what modifications can be made to avoid recurrence. Mental exertion can be as taxing as physical exertion, bear this in mind when developing your activity plan for the day. Consider activities like travel, extended activities or medical testing/procedures may exacerbate your symptoms and consider this in your plans. You may need to factor in rest periods and recovery days when necessary. Keep in mind that functional capacity is important and there is no medication or procedure that will restore lost functional capacity that does not involve increasing activity level. Once PEM is managed and you have a sense for what your daily energy levels are and how to pace youractivities and how to manage your recovery, then you can try to gradually increase activities. Start slow, build gradually and monitor how you feel the following day. If you find yourself unable to recovery, back off. It is important to realize the less you do, the less you will be able to do., So inactivity will only worsen fatigue. There is balance between avoiding inactivity and overexertion and this is very individual and can fluctuate. If very debilitated, focusing on activities of daily life may take precedence over exercise. For instance if you feel excess fatigue, you may consider taking a brief, casual walk, sometimes getting up and moving will improve your energy level then you may be able to do some of your planned activities, you may still want to taper back for that day. Alternatively, if you are having a really good day with high energy, though its okay to do a little extra, avoid trying tomake up for bad days by overdoing it. The concern is that you may not appreciate you are overdoing it until later, when PEM develops. Feeling a little tired and sore the day after doing an activity that you don't do on a regular basis is normal. The important thing is that you are able to function to your base activity level for your general health at that time and that the increased fatigue and soreness does not extend in to lasting several days. I personally interviewed, confirmed and edited the above information as obtained by others. CONTACT INFORMATION: Brandan Peguero DO As a national referral center for Syncope and related conditions, seeing patients from across the country, we cannot provide work, FMLA, disability or other forms, or cardiac clearance. We will provide the office notes from the patient's most recent visit if they have not already beenreceived, and other tests or evaluations performed here can be made available upon request. documented in this encounterC[facility] Miscellaneous Notes* Telephone Encounter - Judy Gamez PSYD - 03/20/2023 8:56 AM EST Pt requesting a call sometime after 3 today to schedule if possible. Thanks! Judy Gamez PsyD Psychologist Department of Psychiatry and Psychology [facility] [phone] 03/20/2023 documented in this encounterCincinnati [facility]02-06-2024 History of Present illness Narrative* Judy Gamez PSYD - 03/20/2023 8:14 AM EST GENERAL PSYCHOLOGY Session #: 33 Visit Type:The patient consented to a virtual visit and their location was confirmed. 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, did not have anxiety or depression Discussed impact of her father's behavior on her romantic relationships, notes she is fine with nothaving a relationship with father, was not depressed because of it Is back in school - almost failed last semester due to feeling depressed - she is doing a little better now, trying to keep busy Feeling really tired Still does not have a POTS doctor, has referrals Will be starting low dose naltrexone Has not been sleeping Feeling forgetful lately PATIENT DATA: Generalized Anxiety Disorder Scale (ROSE MARIE-7) ROSE MARIE - 7 SCORES 01/17/2023 01/18/2023 01/25/2023 ROSE MARIE-7 Score 21 21 18 (0-4) minimal anxiety, (5-9) mild anxiety, (10-14) moderate anxiety, (15-21) severe anxiety Patient Health Questionnaire (PHQ-9) PHQ-9 01/17/2023 01/18/2023 01/25/2023 Score 20 20 20 (0-4) minimal depression, (5-9) mild depression, (10-14) moderate depression, (15-19) moderately severe depression, (20-27) severe depression PROMIS Global Health PROMIS Global Health - (T-Scores - the mean of general population = 50. Five points is a clinicallymeaningful difference.) 10/05/2022 01/10/2023 01/25/2023 Physical T-Score 29.6 26.7 29.6 Mental T-Score 21.2 21.2 21.2 PCL-5 Total Score: 45 (10/18/2021 8:25 AM) 33 = proposed cut-off score for PTSD symptoms warranting further investigation until further psychometric work is available <33 = subthreshold symptoms of PTSD >24 PTSD is a clinical concern, 33-36 probable PTSD, >37 significant PTSD OBJECTIVE: Affect and behavior were within normal limits for the situation. Mental Status Exam: General/Sensorium: AO X 4 - Appearance: Appears well groomed and stated age - Demeanor: Appropriately interactive - Motor Activity: Normal - Speech: Appropriate - Mood: Anxious and Reports feeling depressed - Affect: Congruent with mood - Thought Process: Tangential - Associations: Normal - Thought Content: Appropriate with no SI/HI/AVH - Perceptions: The patient does not appear internally stimulated - Cognition: Issues with short term memory and Issues with attention/concentration - Insight: Good - Judgment: Good - ASSESSMENT: Yolanda Aparicio was actively engaged in the session and demonstrated motivation towards therapy goals. Will likely benefit from continued psychotherapy to support management of mood, anxiety, and adjustment to medical conditions. 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) (primary encounter diagnosis) (F43.10) PTSD (post-traumatic stress disorder) (G90.A) POTS (postural orthostatic tachycardia syndrome) (F42.2) Mixed obsessional thoughts and acts (F34.1) Persistent depressive disorder with anxious distress, currently severe TREATMENT MODALITIES: Cognitive Behavioral Therapy to cognitive restructuring, DBT PROGRESS TO DATE: Intermediate Progress: Progress Short Term Condition: Progress GOALS/OBJECTIVES/INTERVENTIONS: Validate emotional experience Reframe unhelpful thinking Support boundary-setting/assertive communication SHORT-TERM OBJECTIVE/INTERVENTION: pt updated regarding current health issues/stressors Approximately 45 minutes were spent with the patient doing therapy. Judy Gamez PSYD documented in this encounterC[facility]01-17-2024 Miscellaneous Notes* Telephone Encounter - Judy Gamez PSYD - 02/28/2023 4:09 PM EST Can pt please be added 03/06 at 1pm for a follow-up? Thanks! documented in this encounterC[facility]01-02-2024 Evaluation note* Encounter Date Diagnosis Assessment Notes Treatment Notes Treatment Clinical Notes Feb, Contact with and (moncada spected) exposure to covid-19 (ICD-10 - Z20.822) Feb,ronchitis (ICD-10 - J40) Advised patient that rapid COVID/Influenza A/B test was negative today in office. Discussed diagnosis with patient in detail. Advised patient that cough may linger for 3 weeks. Will treat today with antibiotic. Reviewed allergies and recent antibiotic use. Advised to take medications as prescribed, reviewed side effects of steroid, take with food and plenty of water, finish entire course. Encouraged supportive care as directed, push fluids and rest, may use Tylenol as needed for fever/discomfort, cool mist humidifier. Patient to follow up with PCP in 2-3 days if symptoms do not improve. Immediate eval if SOB, difficulty breathing, chest pain, dizziness, or other concerning symptoms. Patient verbalizes understanding and is agreeable to treatment plan [facility] Other 12-14-2023 History of Present illness Narrative* Judy Gamez PSYD - 01/25/2023 2:32 PM EST GENERAL PSYCHOLOGY Session #: 32 Visit Type:The patient consented to a virtual visit and their location was confirmed. Pt identity verified: Yes Location: parents home - [address] [place] [address] Privacy concerns related to pt's present environment discussed: Yes Telehealth Risk Benefit Analysis A) Consistency of presenting problem with use of telehealth services: Engaging effectively in talk therapy which is appropriate to telehealth. B) Client knowledge and skills to use technology: Continues to have the knowledge and skills to participate in telehealth. SUBJECTIVE: Feels as though her behaviors are criticized as though she is not being provoked Feeling so angry, feeling so short fused, discusses feeling like punching people she is angry with if she ran into them, however, when questioned about whether she would do this states I probably would not have the thought process to punch somebody; I would probably start crying Planning to complain to medical board regarding her experiences, providers not listening to her Continuing to experience nausea, napping in the day, and feeling taxed out, blocking it from her mind sometimes to protect herself so it does not destroy her Has treatment from PCP, however, nervous to establish with new specialists PATIENT DATA: Generalized Anxiety Disorder Scale (ROSE MARIE-7) ROSE MARIE - 7 SCORES 01/17/2023 01/18/2023 01/25/2023 ROSE MARIE-7 Score 21 21 18 (0-4) minimal anxiety, (5-9) mild anxiety, (10-14) moderate anxiety, (15-21) severe anxiety Patient Health Questionnaire (PHQ-9) PHQ-9 01/17/2023 01/18/2023 01/25/2023 Score 20 20 20 (0-4) minimal depression, (5-9) mild depression, (10-14) moderate depression, (15-19) moderately severe depression, (20-27) severe depression PROMIS Global Health PROMIS Global Health - (T-Scores - the mean of general population = 50. Five points is a clinicallymeaningful difference.) 10/05/2022 01/10/2023 01/25/2023 Physical T-Score 29.6 26.7 29.6 Mental T-Score 21.2 21.2 21.2 OBJECTIVE: Some behavioral observations limited due to visit being conducted virtually Mental Status Exam: General/Sensorium: AO X 4 - Appearance: Appears well groomed and stated age - Demeanor: Appropriately interactive - Motor Activity: Normal - Speech: Appropriate - Mood: Anxious - Affect: Anxious - Thought Process: Linear, logical, and goal-directed - Associations: Normal - Thought Content: Appropriate with no SI/HI/AVH and Obsessive thinking - Perceptions: The patient does not appear internally stimulated - Cognition: Appears intact in regards to memory, attention/concentration, fund of knowledge and language skills - Insight: Good - Judgment: Good - ASSESSMENT: Yolanda Aparicio was actively engaged in the session and demonstrated motivation towards therapy goals. Assessed risk for harm to others. Pt does not appear to be at risk for harming others due to lack of history of violence, lack of plan or intention of violence. Anger is a common symptom of PTSD.Pt did not express suicidal ideation today. Will likely benefit from continued psychotherapy to process traumatic stressors. 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) (primary encounter diagnosis) (F43.10) PTSD (post-traumatic stress disorder) (F34.1) Persistent depressive disorder with anxious distress, currently severe (G90.A) POTS (postural orthostatic tachycardia syndrome) (F42.2) Mixed obsessional thoughts and acts TREATMENT MODALITIES: DBT PROGRESS TO DATE: Intermediate Progress: Progress Short Term Condition: Progress GOALS/OBJECTIVES/INTERVENTIONS: Validate emotional experience Reframe unhelpful thinking Support boundary-setting/assertive communication SHORT-TERM OBJECTIVE/INTERVENTION: process emotions Approximately 50 minutes were spent with the patient doing therapy. Judy Gamez PSYD documented in this encounterCinc[facility]12-12-2023 Evaluation note* Encounter Date Diagnosis Assessment Notes Treatment Notes Treatment Clinical Notes Jan, POTS (postural orthostatic tachy cardia syndrome) (ICD-10 - I49.8) Quite lengthy 40+ minute discussion with patient today regarding all of her concerns. I really think it would benefit her to have us make a referral to a new POTS clinic. I related to her yet again that I am not a POTS specialist, and do not feel comfortable trying to treat this. That being said, one of the options that was presented by the clinic, prior to the termination letter, was low-dose naltrexone. I think this is not an unreasonable option. Jan,Nausea (ICD-10 - R11.0)E Rx sent. We will try the increased dose of the Zofran. Jan,Sleep difficulties (ICD-10 - G47.9)Pt to consider amitriptylene - lengthy discussion with patient today that even modest amount of sleep loss can really affect the body and mind tremendously. She states she will do some research and decide if she wants to pursue this medication. [facility] Other 12-07-2023 History of Present illness Narrative* Judy Gamez PSYD - 01/18/2023 11:59 AM EST GENERAL PSYCHOLOGY Session #: 31 Visit Type:The patient consented to a virtual visit and their location was confirmed. [employer] used due to tech difficulty. Pt identity verified: Yes Location: pt parked in her vehicle at [employer] Privacy concerns related to pt's present environment discussed: Yes Telehealth Risk Benefit Analysis A) Consistency of presenting problem with use of telehealth services: Engaging effectively in talk therapy which is appropriate to telehealth. B) Client knowledge and skills to use technology: Continues to have the knowledge and skills to participate in telehealth. SUBJECTIVE: Discussed her experience of being told she has to change her behavior when she has expressed problems with her care in the past, rather than providers examining their own behavior Feels misunderstood and thought of as a bad person Does not think she can control anything in her life anymore Not sleeping, depressed, feeling sick Not angry, hurt. States: I don't want to hurt people because I have been through enough hurt in mylife Denies current suicidal intent, but does fear how her current situation is impacting her health andrisk for suicide Feeling on edge, cannot think straight PATIENT DATA: Generalized Anxiety Disorder Scale (ROSE MARIE-7) ROSE MARIE - 7 SCORES 01/17/2023 01/17/2023 01/18/2023 ROSE MARIE-7 Score 21 21 21 (0-4) minimal anxiety, (5-9) mild anxiety, (10-14) moderate anxiety, (15-21) severe anxiety Patient Health Questionnaire (PHQ-9) PHQ-9 01/17/2023 01/17/2023 01/18/2023 Score 20 20 20 (0-4) minimal depression, (5-9) mild depression, (10-14) moderate depression, (15-19) moderately severe depression, (20-27) severe depression PROMIS Global Health PROMIS Global Health - (T-Scores - the mean of general population = 50. Five points is a clinicallymeaningful difference.) 10/05/2022 10/05/2022 01/10/2023 Physical T-Score 29.6 29.6 26.7 Mental T-Score 21.2 21.2 21.2 OBJECTIVE: Some behavioral observations limited due to visit being conducted virtually Mental Status Exam: General/Sensorium: AO X 4 - Appearance: Appears well groomed and stated age - Demeanor: Appropriately interactive - Motor Activity: Normal - Speech: Appropriate - Mood: Anxious and Reports feeling depressed - Affect: Congruent with mood - Thought Process: Linear, logical, and goal-directed - Associations: Normal - Thought Content: Appropriate with no SI/HI/AVH - Perceptions: The patient does not appear internally stimulated - Cognition: Appears intact in regards to memory, attention/concentration, fund of knowledge and language skills - Insight: Good - Judgment: Good - ASSESSMENT: Yolanda Aparicio was actively engaged in the session and demonstrated motivation towards therapy goals. Suicide risk was assessed today. Pt does not appear at imminent risk of suicide due to denial of current intent or plan of suicide, lack of history of suicidal behavior. Pt is very distressed, however, and provider will continue close follow-up to provide support and monitor risk. Will likely benefit from continued psychotherapy to support management of mood and anxiety. 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) (primary encounter diagnosis) (F43.10) PTSD (post-traumatic stress disorder) (F34.1) Persistent depressive disorder with anxious distress, currently severe (G90.A) POTS (postural orthostatic tachycardia syndrome) (F42.2) Mixed obsessional thoughts and acts TREATMENT MODALITIES: Cognitive Behavioral Therapy to cognitive restructuring, DBT PROGRESS TO DATE: Intermediate Progress: Progress Short Term Condition: Progress GOALS/OBJECTIVES/INTERVENTIONS: Validate emotional experience Reframe unhelpful thinking Support boundary-setting/assertive communication SHORT-TERM OBJECTIVE/INTERVENTION: Validate emotions, discuss PTSD Future - need to reassess PTSD sx, questionnaire sent by [employer] Approximately 50 minutes were spent with the patient doing therapy. Judy Gamez PSYD documented in this encounterCinc[facility]11-29-2023 Miscellaneous Notes* Telephone Encounter - Judy Gamez PSYD - 01/10/2023 8:01 AM EST Can pt please be added to my calendar 01/18 at 8am for a virtual? We just discussed this. Thanks! documented in this encounterCinc[facility]11-16-2023 Evaluation note* Encounter Date Diagnosis Assessment Notes Treatment Notes Treatment Clinical Notes Dec, Anxiety (ICD-10 - F41.9) [facility] -lengthy 45+ minute discussion with patient today. I discussed with her at great length that I feel that we could do the Xanax on a very strict as needed basis. She is made aware that this medication is not ideal for consistent anxiety. I feel she would be better served by being on a medication such as an antidepressant/anxiolytic on a daily basis. We did talk about possibly seeing ps ychiatry and also trying the [facility] therapy. Both of these she declines. She suggests understanding on numerous occasions here today that the Xanax is not going to be something that I will repeat consistently. This really must be used only at times of extreme anxiety. Dec,Urinary tract infection without hematuria, site unspecified (ICD-10 - N39.0)Certainly some of her symptoms could be UTI, yet, I don't believe all these could be attrubited to UTI. Dec,OTS (postural orthostatic tachycardia syndrome) (ICD-10 - I49.8) Lengthy discussion with patient today that I am just not sure how she is going to navigate her issues with [facility]. It sounds like her nurse practitioner, through the [facility] clinic wants to maintain her as a patient, but there is some internal conflict with some of the overseeing physicians.We did briefly discuss the possibility of flighty another POTS specialist, but she states that [facility] clinic is booking a year out. This is not something that she wants to pursue, as she states she needs something now. [employer] Other 11-14-2023 Telephone encounter Note* Telephone Encounter - Jodee Faustin - 12/26/2022 2:59 PM EST Scanned in medical records from [facility] for review [facility]11-14-2023 Miscellaneous Notes* Telephone Encounter - Jodee Faustin - 12/26/2022 2:59 PM EST Scanned in medical records from [facility] for review documented in this encounterCincinnati [facility]11-14-2023 History of Present illness Narrative* Judy Gamez PSYD - 12/26/2022 9:04 AM EST GENERAL PSYCHOLOGY Session #: 29 Visit Type:The patient consented to a virtual visit and their location was confirmed. Pt identity verified: Yes Location[facility] [place] Privacy concerns related to pt's present environment discussed: Yes Telehealth Risk Benefit Analysis A) Consistency of presenting problem with use of telehealth services: Engaging effectively in talk therapy which is appropriate to telehealth. B) Client knowledge and skills to use technology: Continues to have the knowledge and skills to participate in telehealth. SUBJECTIVE: Discussed current concerns regarding her care Discussed psychiatry referral - pt would prefer therapy, does not wish to see psychiatry at this time, indicates problems are interpersonal in nature not due to mental illness Continuing to experience distress regarding past involuntary hospitalization States she has no control over her care Having difficulty taking care of herself due to distress (not eating and drinking enough) Discussed suicidal ideation - States I don't want to be here, but I suppose I am not going to killmyself Agrees she has no specific plan or intention of suicide at this time PATIENT DATA: Generalized Anxiety Disorder Scale (ROSE MARIE-7) ROSE MARIE - 7 SCORES 12/25/2022 12/25/2022 12/26/2022 ROSE MARIE-7 Score 13 13 12 (0-4) minimal anxiety, (5-9) mild anxiety, (10-14) moderate anxiety, (15-21) severe anxiety Patient Health Questionnaire (PHQ-9) PHQ-9 12/25/2022 12/26/2022 12/26/2022 Score 16 19 19 (0-4) minimal depression, (5-9) mild depression, (10-14) moderate depression, (15-19) moderately severe depression, (20-27) severe depression PROMIS Global Health PROMIS Global Health - (T-Scores - the mean of general population = 50. Five points is a clinicallymeaningful difference.) 07/06/2022 10/05/2022 10/05/2022 Physical T-Score 32.4 29.6 29.6 Mental T-Score 25.1 21.2 21.2 OBJECTIVE: Some behavioral observations limited due to visit being conducted virtually Mental Status Exam: General/Sensorium: AO X 4 - Appearance: Appears well groomed and stated age - Demeanor: Appropriately interactive - Motor Activity: Normal - Speech: Appropriate - Mood: Anxious and Reports feeling depressed - Affect: Congruent with mood - Thought Process: Linear, logical, and goal-directed - Associations: Normal - Thought Content: Appropriate with no SI/HI/AVH - Perceptions: The patient does not appear internally stimulated - Cognition: Appears intact in regards to memory, attention/concentration, fund of knowledge and language skills - Insight: Good - Judgment: Good - ASSESSMENT: Yolanda Aparicio was actively engaged in the session and demonstrated motivation towards therapy goals. Will likely benefit from continued psychotherapy to process traumatic stressors. Suicide risk was assessed today. Pt does not appear at imminent risk of suicide due to lack of specific suicide plan or intent, however, intensity of SI does appear increased recently. Pt attributes this to the stress she feels regarding lack of control over her healthcare. Discussed psychiatry referral risks andbenefits. Based on pt's previous experiences with psychiatry, it is my opinion that a visit with psychiatry that she feels coerced into will have a high risk of emotional harm and limited potential benefit. I will continue to follow-up closely with pt. DIAGNOSIS: (F43.10) PTSD (post-traumatic stress disorder) (primary encounter diagnosis) (G90.A) POTS (postural orthostatic tachycardia syndrome) (U09.9) Post-acute 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) TREATMENT MODALITIES: Cognitive Behavioral Therapy to cognitive restructuring, DBT PROGRESS TO DATE: Intermediate Progress: Progress Short Term Condition: Progress GOALS/OBJECTIVES/INTERVENTIONS: Validate emotional experience Reframe unhelpful thinking Support boundary-setting/assertive communication SHORT-TERM OBJECTIVE/INTERVENTION: Pt gave consent to discuss clinical and ethical concerns about her case with Dr. Ward, Dr. Mcmanus Approximately 55 minutes were spent with the patient doing therapy. Judy Gamez PSYD documented in this encounterCinc[facility]11-13-2023 History of Present illness Narrative* Alvin Huddleston DO - 12/25/2022 2:30 PM EST No showed for appt with HALL COORDINATOR Jaskaran Guzman and I for visit Patient did review message in [employer] documented in this encounterCinc[facility]11-10-2023 Evaluation note* Encounter Date Diagnosis Assessment Notes Treatment Notes Treatment Clinical Notes Dec, Acute cystitis with hematuria (I CD-10 - N30.01) [employer] Other 11-10-2023 Miscellaneous Notes* Telephone Encounter - Judy Gamez PSYD - 12/22/2022 11:12 AM EST Scheduled. * Telephone Encounter - Judy Gamez PSYD - 12/13/2022 5:21 PM EDT Will contact pt with add on appointment when one becomes available. Pt in need of ongoing support. Judy Gamez PsyD [facility] 12/14/2022 documented in this encounterCincinnati [facility]11-08-2023 Miscellaneous Notes* Telephone Encounter - Judy Gamez PSYD - 12/20/2022 12:08 PM EST Pt scheduled for 2 visits. * Telephone Encounter - Judy Gamez PSYD - 12/20/2022 11:46 AM EST Abril, I need to add this patient on with high priority if I have any cancellations next week (I.e.starting 12/25). Thank you! documented in this encounterCinc[facility]11-08-2023 History of Present illness Narrative* Judy Gamez PSYD - 12/20/2022 10:31 AM EST Images from the original note were not included. GENERAL PSYCHOLOGY Session #: 28 Visit Type:The patient consented to a virtual visit and their location was confirmed. Pt identity verified: Yes Location: parked at [facility] Privacy concerns related to pt's present environment discussed: Yes Telehealth Risk Benefit Analysis A) Consistency of presenting problem with use of telehealth services: Engaging effectively in talk therapy which is appropriate to telehealth. B) Client knowledge and skills to use technology: Continues to have the knowledge and skills to participate in telehealth. SUBJECTIVE: Having panic attacks, feeling close to passing out, not eating, not drinking Body aches, feels like she cannot move her body Feeling fear about whether she will make it out of her situation alive Believes that nothing can be healed until she can confront her trauma No one ever fights for her or asks what she wants Had thoughts of wrecking her car yesterday, however, did not do so States There has never been a plan, it is fleeting thoughts States she does not have the capacity to think of a plan for suicide In her opinion being able to talk about her involuntary hospitalization to the people involved would help her to feel better PATIENT DATA: Generalized Anxiety Disorder Scale (ROSE MARIE-7) ROSE MARIE - 7 SCORES 10/18/2022 11/22/2022 12/06/2022 ROSE MARIE-7 Score 11 11 7 (0-4) minimal anxiety, (5-9) mild anxiety, (10-14) moderate anxiety, (15-21) severe anxiety Patient Health Questionnaire (PHQ-9) PHQ-9 12/06/2022 12/13/2022 12/13/2022 Score 10 18 18 (0-4) minimal depression, (5-9) mild depression, (10-14) moderate depression, (15-19) moderately severe depression, (20-27) severe depression PROMIS Global Health PROMIS Global Health - (T-Scores - the mean of general population = 50. Five points is a clinicallymeaningful difference.) 07/06/2022 10/05/2022 10/05/2022 Physical T-Score 32.4 29.6 29.6 Mental T-Score 25.1 21.2 21.2 [place]-SUICIDE SEVERITY RATING SCALE Screen Version - Recent Past month Ask questions that are bolded and underlined. YES/NO Ask Questions 1 and 2 1) Have you wished you were or wished you could go to sleep and not wake up? Yes 2) Have you actually had any thoughts of killing yourself? Yes (there has never been a plan, it is fleeting thoughts) If YES to 2, ask questions 3, 4, 5, and 6. If NO to 2, go directly to question 6. 3) Have you been thinking about how you might do this? E.g. I thought about taking an overdose but I never made a specific plan as to when where or how I would actually do it .and I would never go through with it. No 4) Have you had these thoughts and had some intention of acting on them? As opposed to I have the thoughts but I definitely will not do anything about them. No 5) Have you started to work out or worked out the details of how to kill yourself? Do you intend tocarry out this plan? No 6) Have you ever done anything, started to do anything, or prepared to do anything to end your life? Examples: Collected pills, obtained a gun, gave away valuables, wrote a will or suicide note, took out pills but didn't swallow any, held a gun but changed your mind or it was grabbed from your hand,went to the roof but didn't jump; or actually took pills, tried to shoot yourself, cut yourself, tried to hang yourself, etc. If YES, ask: Was this within the past three months? YES/NO No Low Risk Moderate Risk High Risk OBJECTIVE: Some behavioral observations limited due to visit being conducted virtually Mental Status Exam: General/Sensorium: AO X 4 and In moderate distress - Appearance: Appears well groomed and stated age - Demeanor: Appropriately interactive - Motor Activity: Normal - Speech: Appropriate - Mood: Reports feeling depressed and Anxious - Affect: Sad/tearful - sobbing Thought Process: Linear, logical, and goal-directed - Associations: Normal - Thought Content: Appropriate with no SI/HI/AVH - Perceptions: The patient does not appear internally stimulated - Cognition: Appears intact in regards to memory, attention/concentration, fund of knowledge and language skills - Insight: Good - Judgment: Good - ASSESSMENT: Yolanda Aparicio was actively engaged in the session and demonstrated some motivation towards therapy goals. Suicide risk was assessed today. Pt does not appear at imminent risk of suicide due to lack of specific plan or intention. She does have limited support and passive ideation with fleeting thoughts of killing herself. Will likely benefit from continued psychotherapy to process traumatic stress. I have offered to assist with voluntary hospitalization, finding a psychiatrist and I have offered IOP. She has declined at present. I do not think involuntary hospitalization is warranted at this time and will continue to offer support and encourage pt to engage with mental health services. DIAGNOSIS: (F43.10) PTSD (post-traumatic stress disorder) (primary encounter diagnosis) (G90.A) POTS (postural orthostatic tachycardia syndrome) (U09.9) Post-acute 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) TREATMENT MODALITIES: Cognitive Behavioral Therapy to cognitive restructuring, DBT PROGRESS TO DATE: Portal Administrator Progress: Progress Short Term Condition: Regressed GOALS/OBJECTIVES/INTERVENTIONS: Validate emotional experience Reframe unhelpful thinking Support boundary-setting/assertive communication SHORT-TERM OBJECTIVE/INTERVENTION: Encouraged to think about IOP or other mental health support Will add on appointment next week Approximately 55 minutes were spent with the patient doing therapy. Judy Gamez PSYD documented in this encounterCinc[facility]11-07-2023 Evaluation note* Encounter Date Diagnosis Assessment Notes Treatment Notes Treatment Clinical Notes Dec, Chest pain, unspecified type (IC D-10 - R07.9) [employer] Other 11-06-2023 Evaluation note* Encounter Date Diagnosis Assessment Notes Treatment Notes Treatment Clinical Notes Dec, Right arm numbness (ICD-10 - R20 .0) [facility] Other 11-03-2023 Miscellaneous Notes* Telephone Encounter - Judy Gamez PSYD - 12/15/2022 5:08 PM EDT Verified pt identity. Spoke with patient for approximately 45 minutes regarding her recent MyChart messages and recent stressors. Pt verbally agrees she can keep herself alive between now and next appointment 12/20. We discussed her present stressors and I provided emotional support. Fearful that she will no longer be able to see one of her providers. Suggested to pt to take a break from triggering information on social media. She indicates she has unfollowed triggering things. Also considered welfare check and consulted with Dr. Sho Mcmanus regarding pt risk level. Pt has expressed no specific plan for suicide, no intent of suicide, and to my knowledge has no history of suicide attempts or self-harm. Was hospitalized 3 months ago, denies having had suicidal intent atthe time of that hospitalization. Indicates it was traumatic for her and has reported trauma sx. She has also expressed considering calling a suicide hotline which I believe demonstrates a willingness to seek help. Has continued attachment to at least one medical provider which is a protective factor. While pt is expressing increasing hopelessness, she does not appear at imminent risk of suicide.Will continue close follow-up. Judy Gamez PsyD [facility] 12/15/2022 * Telephone Encounter - Judy Gamez PSYD - 12/15/2022 4:40 PM EDT Left voicemail for patient. Will try again to reach patient today. Judy Gamez PsyD [facility] 12/15/2022 documented in this encounterCinc[facility]11-03-2023 Miscellaneous Notes* Telephone Encounter - Judy Gamez PSYD - 12/15/2022 4:39 PM EDT I reviewed this mychart message. Pt appears distressed and has expressed passive suicidal ideation in this message but has not expressed any intention or plan for suicide. I will continue to keep close follow-up with pt to support her and assess her risk. Judy Gamez PsyD [facility] 12/15/2022 documented in this encounterCinc[facility]11-01-2023 Miscellaneous Notes* Telephone Encounter - Judy Gamze PSYD - 12/13/2022 3:18 PM EDT Addressed in appointment today 12/13/2022. Judy Gamez PsyD [facility] 12/13/2022 documented in this encounterCinc[facility]10-31-2023 History of Present illness Narrative* Yoanna Whitten, PT - 12/12/2022 9:48 AM EDT Episode Visit Count: 3 Therapist That Will Accept/Oversee The Plan Of Care: Maria Dolores Start of Care Date: 11/23/22 Onset Date: 09/22/22 (physician order; symptoms started in 2019 s/p COVID) Plan of Care Certification Date: 11/23/22 Next Certification Due Date: 01/22/23 REHABILITATION AND SPORTS THERAPY PHYSICAL THERAPY TREATMENT NOTE *patient arrives 15 minutes late to therapy session* 00 ASSESSMENT: Yolanda Aparicio tolerated the session with no issues. She demonstrated mild self reported in improvements with HEP compliance, though still limited d/t fatigue and motivation. No reported increase in dizziness symptoms during session. The patient will continue to benefit from ongoing sk illed physical therapy to progress toward set goals. PLAN FOR NEXT VISIT: Continue to progress standing activities. Nustep protocol. Postural training SUBJECTIVE: Has tried the exercises at home. Has been using recumbent bike and POTS protocol but her bike does not show her the speed. Hard to monitor just on RPE. Reports since her fall she began having some right arm numbness and heaviness over the last 1.5 weeks. She is not sure if it is affected by different positions Pain: Pain Pain Level: 0 Post Treatment Pain Post Treatment Pain Level: 0 OBJECTIVE MEASURES WITH LEVEL OF FUNCTION: Posture / Alignment Sitting Posture: Comments Sitting Posture Comments: Rounded shoulders. Slumped, sliding forward into chair. TREATMENT: Therapeutic Exercise: 1: Nustep training block 1 POTS protocol. 5 minute warm up and cool down. 7 minutes active work. 2: Education on affect of oversensitive nervous system on symptoms and stress/anxiety and recent pain after fall affecting symptoms 3: *unilateral pec stretch in doorframe. 30 sec trials. To perform in pain free ROM with sustained hold Skilled Intervention: Patient was educated in proper exercise technique and purpose for exercises. Reviewed and educated patient on additions/changes for home exercise program as above (*). Skilled judgment was used in selection of appropriate interventions. Provided written instruction for home exercise program to facilitate proper performance and compliance. Correct performance of therapeutic exercises was facilitated with verbal and visual cuing. Educated patient on rationale for performing exercises in regards to decreasing fatigue , improvingfitness, increase ease of ADL, and ROM and function . Patient education as noted. Billing Therapeutic Exercise Treatment Minutes: 30 Skilled Treatment Time Minutes (timed and untimed codes): 30 Total Session Time (minutes): 30 Session Start Time : 0945 Session Stop Time : 1015 Yoanna Whitten PT documented in this encounterCinc[facility]10-25-2023 Miscellaneous Notes* Telephone Encounter - Judy Gamez PSYD - 12/06/2022 11:26 AM EDT Can pt be called to schedule and waitlisted? Thank you! documented in this encounterCinc[facility]10-25-2023 History of Present illness Narrative* Judy Gamez PSYD - 12/06/2022 10:35 AM EDT GENERAL PSYCHOLOGY Session #: 26 Visit Type:The patient consented to a virtual visit and their location was confirmed. Pt identity verified: Yes Location: Parked at [facility] in [facility] Privacy concerns related to pt's present environment discussed: Yes Telehealth Risk Benefit Analysis A) Consistency of presenting problem with use of telehealth services: Engaging effectively in talk therapy which is appropriate to telehealth. B) Client knowledge and skills to use technology: Continues to have the knowledge and skills to participate in telehealth. SUBJECTIVE: Discussed ongoing dissatisfaction with psychiatric care Stressed with school Had a feeling like her body was frozen Started a podcast PATIENT DATA: Generalized Anxiety Disorder Scale (ROSE MARIE-7) ROSE MARIE - 7 SCORES 10/18/2022 11/22/2022 12/06/2022 ROSE MARIE-7 Score 11 11 7 (0-4) minimal anxiety, (5-9) mild anxiety, (10-14) moderate anxiety, (15-21) severe anxiety Patient Health Questionnaire (PHQ-9) PHQ-9 10/18/2022 11/22/2022 12/06/2022 Score 15 15 10 (0-4) minimal depression, (5-9) mild depression, (10-14) moderate depression, (15-19) moderately severe depression, (20-27) severe depression PROMIS Global Health PROMIS Global Health - (T-Scores - the mean of general population = 50. Five points is a clinicallymeaningful difference.) 07/06/2022 10/05/2022 10/05/2022 Physical T-Score 32.4 29.6 29.6 Mental T-Score 25.1 21.2 21.2 OBJECTIVE: Some behavioral observations limited due to visit being conducted virtually Mental Status Exam: General/Sensorium: AO X 4 - Appearance: Appears well groomed and stated age - Demeanor: Appropriately interactive - Motor Activity: Normal - Speech: Appropriate - Mood: Anxious and Reports feeling depressed - Affect: Congruent with mood - Thought Process: Linear, logical, and goal-directed - Associations: Normal - Thought Content: Appropriate with no SI/HI/AVH - Perceptions: The patient does not appear internally stimulated - Cognition: Appears intact in regards to memory, attention/concentration, fund of knowledge and language skills - Insight: Good - Judgment: Good - ASSESSMENT: Yolanda Aparicio was actively engaged in the session and demonstrated motivation towards therapy goals. Will likely benefit from continued psychotherapy to improve symptoms of PTSD and OCD. DIAGNOSIS: (F42.2) Mixed obsessional thoughts and acts (primary encounter diagnosis) (F43.10) PTSD (post-traumatic stress disorder) TREATMENT MODALITIES: DBT PROGRESS TO DATE: Portal Administrator Progress: Progress Short Term Condition: Progress GOALS/OBJECTIVES/INTERVENTIONS: Validate emotional experience Reframe unhelpful thinking Support boundary-setting/assertive communication Approximately 50 minutes were spent with the patient doing therapy. Judy Gamez PSYD documented in this encounterCincinnati [facility]10-23-2023 History of Present illness Narrative* Liliane Bingham, PT - 12/04/2022 11:41 AM EDT Episode Visit Count: 2 Therapist That Will Accept/Oversee The Plan Of Care: Maria Dolores Start of Care Date: 11/23/22 Onset Date: 09/22/22 (physician order; symptoms started in 2019 s/p COVID) Plan of Care Certification Date: 11/23/22 Next Certification Due Date: 01/22/23 REHABILITATION AND SPORTS THERAPY PHYSICAL THERAPY TREATMENT NOTE ASSESSMENT: Yolanda Aparicio tolerated the session with no issues. She demonstrated improvements instanding and activity tolerance. Pt reported slight increase in symptoms but improved with sustained activity. The patient will continue to benefit from ongoing skilled physical therapy to progress toward set goals. PLAN FOR NEXT VISIT: Progress standing/ strengthening exercises SUBJECTIVE: Strained my throacic Was having bad spasms and rib cage pain. Didn't get to do much exercise. Pain: OBJECTIVE MEASURES WITH LEVEL OF FUNCTION: Balance Static Standing Balance: Comments Static Standing Balance Comments: Tolerated static standing 25 min during session TREATMENT: Therapeutic Exercise: 1: NuStep x 10 min L1 resistance. B LE and UE. Cueing for Speed less than 40 spm. 375 steps 2: Standing calf stretch- standing on incline- x 3 min- intermittent stretch 3: 1 min work: standing rest between reps of below exercises. 4: Marching knee to bar 5: Hamstring curl 6: Side step out/in 7: Back step 9: Added Heel lift and calf stretch to HEP. 10: Education on TEE scale and working between 10-14 Skilled Intervention: Patient was educated in proper exercise technique and purpose for exercises. Skilled judgment was used in selection of appropriate interventions. Correct performance of therapeutic exercises was facilitated with verbal and visual cuing. Billing Therapeutic Exercise Treatment Minutes: 45 Skilled Treatment Time Minutes (timed and untimed codes): 45 Total Session Time (minutes): 48 Session Start Time : 844 Session Stop Time : 932 Liliane Bingham PT documented in this encounterCincinnati [facility]10-20-2023 Telephone encounter Note * Telephone Encounter - Jodee Faustin - 12/01/2022 12:20 PM EDT Scanned in insurance approval for review. [facility]10-20-2023 Miscellaneous Notes* Telephone Encounter - Jodee Faustin - 12/01/2022 12:20 PM EDT Scanned in insurance approval for review. documented in this encounterCincinnati [facility]10-20-2023 Instructions* Patient Instructions* Shawn Arthur MD - 12/01/2022 12:12 PM EDT 1) Please get a repeat EKG today (J1-4) 2) Please schedule a coronary CTA in the upcoming weeks 3) Regarding metoprolol dose - no reason to change at this time as long as there are no increasing symptoms of lightheadedness/dizziness. 4) Ok to try the new medication per neurology (low-dose naltrexone). 5) Follow up based on results. documented in this encounterCincinnati [facility]10-20-2023 History of Present illness Narrative* Shawn Arthur MD - 12/01/2022 11:41 AM EDT Images from the original note were not included. [facility] Department of Cardiovascular Medicine SECTION OF CLINICAL CARDIOLOGY OUTPATIENT VISIT DATE December 01, 2022 OUTPATIENT VISIT TYPE NEW PRIMARY CARE PHYSICIAN : Misha Sy [address] [place] [id number] CHIEF COMPLAINT: Abnormal EKG HISTORY OF PRESENT ILLNESS: Ms. Aparicio is a 27 year old female with no past cardiovascular history who is here for an opinion regarding her recent abnormal EKG. Patient has been seen by us in the past. She has a history of postural tachycardia and long COVID. She follows up with neurology regarding the same. Patient is being considered for naltrexone as partof treatment for the same. She underwent an EKG as part of the work-up prior to initiating the medication. She was noted to have sinus bradycardia with low voltage. She is here for an opinion regarding the same. Patient is on low-dose metoprolol for her tachycardia symptoms/PTS. Denies any significant increasein lightheadedness or dizziness recently. Feels better on the metoprolol then off the metoprolol. Infrequent episodes of lightheadedness and hypotension on the metoprolol. Home systolic blood pressures are routinely in the 110s. Patient also reports a longstanding history of chest discomfort that can be worse with exertion. Pain is midsternal and pressure-like in sensation. This is accompanied with shortness of breath. Symptoms have been going on for some time but have worsened recently. 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) Postural orthostatic tachycardia syndrome 11/01/2020 PAST SURGICAL HISTORY Procedure Laterality Date NONE SOCIAL HISTORY Social History Tobacco Use Smoking status: Former Packs/day: 0.30 Years: 5.00 Additional pack years: 0.00 Total pack years: 1.50 Types: Cigarettes Quit date: 02/13/2016 Years since quittin.8 Smokeless tobacco: Never Vaping Use Vaping Use: Never used Substance Use Topics Alcohol use: No Drug use: Never FAMILY HISTORY Problem Relation Age of Onset Hypertension Father Hyperlipidemia Father Hyperlipidemia Maternal Grandmother other (afib) Maternal Grandmother Heart Attack Paternal Grandmother ALLERGIES: ALLERGIES Allergen Reactions Modafinil Mental Status Change Amoxicillin-Pot Cla* Other: See Comments extreme dizziness Bactrim [Sulfametho* GI Upset Cephalexin Unknown Ciprofloxacin Unknown Lexapro [Escitalopr* GI Upset [place] Juice Rash Sertraline Mental Status Change, Other: See Comments Trimethoprim Other: See Comments MEDICATIONS: tiZANidine (ZANAFLEX) 4 mg tablet take 1 tablet by mouth everyday at bedtime gabapentin (NEURONTIN) 100 mg capsule Take 2 capsules by mouth once daily. (taken with 300mg capsule) gabapentin (NEURONTIN) 300 mg capsule 1 capsule at bedtime (taken with two 100 mg capsules) hydrOXYzine HCl (ATARAX) 10 mg tablet Take 1 tablet by mouth three times daily as needed. metoprolol tartrate, short acting, (LOPRESSOR) 25 mg tablet Take 25 mg by mouth twice daily. 12.5 mg in the morning and 25 mg in the evening sodium chloride 1 g tab Take 2 g by mouth three times daily. 1 gram in morning and 1 gram in evening fluticasone (FLONASE) 50 mcg/actuation nasal spray Use 2 Sprays in each nostril once daily. acetaminophen (ACETAMINOPHEN EXTRA STRENGTH) 500 mg tablet Take 500 mg by mouth every 6 hours as needed for pain. meclizine (ANTIVERT) 25 mg tab Take 50 mg by mouth three times daily as needed (TID PRN). As neededTID ondansetron orally disintegrating (ZOFRAN ODT) 4 mg disintegrating tablet Take 4 mg by mouth every 6 hours as needed for nausea/vomiting. ibuprofen (MOTRIN) 200 mg tablet Take 200 mg by mouth every 6 hours as needed for pain. acetaminophen (TYLENOL) 500 mg tablet Take 500 mg by mouth as needed. REVIEW OF SYSTEMS: Negative unless otherwise noted above PHYSICAL EXAMINATION: BP 118/78 (BP Site: Left Arm) Pulse 60 Resp 12 Wt 85.7 kg (189 lb) LMP 09/05/2020 (Within Weeks) SpO2 96% BMI 31.45 kg/m General: Well appearing, in no acute distress. Skin: No clubbing, no cyanosis. Neck: No jugular venous distention, no carotid bruits, carotids have a normal upstroke, no palpablethyromegaly. Lungs: Clear to auscultation bilaterally, no wheezing or rhonchi. Heart: Regular rhythm, PMI not displaced, S1, S2 normal, no heaves, no rub and no murmur. Extremities: No peripheral edema . Grade 2 distal pulses bilaterally. Neuro: Oriented to person, place and time, alert, cooperative, gait coordinated. CARDIOVASCULAR MEDICINE TESTING: EKG 11/16/2022 Sinus bradycardia Low voltage Abnormal EKG I have personally reviewed the Electrocardiogram. IMPRESSION and Plan: Ms. Aparicio is a 27 year old female here for an opinion regarding her abnormal EKG. Abnormal EKG Patient has sinus bradycardia and low voltages. Patient is relatively asymptomatic with a sinus bradycardia with no episodes of hypotension. In light of that, I would not necessarily decrease her metoprolol dose given she reports significant improvement in her postural tachycardia syndrome symptomson the medication. If on the other hand, patient has significant episodes of lightheadedness or dizziness or hypotension attributable to her bradycardia, would be appropriate to decrease the medication. For her otherwise low voltages, no evidence of pericardial effusion on physical exam or symptoms ofthe same. Her echocardiogram recently was very normal. Repeat EKG today shows improved voltages. Her BMI is elevated and this could be attributable to that. No contraindication to naltrexone from a cardiac standpoint For patient's exertional chest pain, she underwent an EKG stress test 2 years ago that did not reveal any evidence of ischemia. At this time, given her reliance on metoprolol for her fairly advanced PTS symptoms and her low resting heart rates, I hesitate to taper off her beta-yariel. We will get a coronary CTA to rule out any anomalies/myocardial bridges. CONTACT INFORMATION: Shawn Arthur MD, MS, FACC, FSVM, RPBENJY Esquivel and Juliana Ferrara Department of Cardiovascular Medicine [address], [place] [address] Appointments: (Cardiology); (Vascular Medicine) This note was dictated using a voice recognition software. Please excuse any inadvertent typographical/grammatical/syntax errors that may have escaped the final proofread. Please don't hesitate to contact my office for any clarification. nt documented in this encounterC[facility] Evaluation note* Encounter Date Diagnosis Assessment Notes Treatment Notes Treatment Clinical Notes Nov, Strain of thoracic back region ( ICD-10 - S29.012A) Discussed diagnosis with patient. XR results still pending. Toradol and Kenalog injection given today in office. Advised patient to take medications as directed. Use muscle relaxer at night time as it may cause drowsiness. May use OTC Tylenol and icy hot application for additional relief. Encouraged warm compresses, light stretches, and massage may also help with pain. Avoid strenuous activity, perform activity as tolerated, do not stay stationary for long periods of time as it might make symptoms worse. Follow up with PCP in 1 week if symptoms do not improve. Immediate eval for chest pain, shortness of breath, fever, numbness or tingling, loss of bowel or bladder control, pain becomes severe, difficulty moving neck, back, arms or legs, dizziness, headache, or any other new or concerning symptoms arise. Patient verbalizes understanding and is agreeable to treatment plan [employer] [facility] Other 10-13-2023 Miscellaneous Notes* Telephone Encounter - Cynthia Stanford - 11/24/2022 2:23 PM EDT Left voicemail for patient to call [phone] to schedule PT appointments. documented in this [facility]10-10-2023 Evaluation note* Encounter Date Diagnosis Assessment Notes Treatment Notes Treatment Clinical Notes Nov, Fatigue, unspecified type (ICD-1 0 - R53.83) Nov,[place] (ICD-10 - R68.83) [facility] [employer] Other 09-14-2023 History of Present illness Narrative* Judy Gamez PSYD - 10/26/2022 12:58 PM EDT Pt sent MyChart regarding terminating care. Appointment marked cancelled as pt did not sign in and was not seen. Judy Gamez PsyD [facility] 10/26/[address] [facility]09-11-2023 Miscellaneous Notes* Telephone Encounter - Celeste Jaramillo RN - 10/23/2022 12:14 PM EDT Responded to by RW. Celeste Jaramillo RN documented [facility] this [facility]09-07-2023 Evaluation note* Encounter Date Diagnosis Assessment Notes Treatment Notes Treatment Clinical Notes Oct, POTS (postural orthostatic tachy cardia syndrome) (ICD-10 - I49.8) Lengthy discussion with patient today that I still feel she needs to continue to follow-up with herPOTS specialist. She really feels that he should be willing to address this inpatient psych concern. I cannot disagree with this but we certainly need continued care for her POTS. She states she has an appointment with him in December, and I suggest that we do keep this. If she finds that the relationship is just not something that can continue, then we can make referral to new specialist. Oct, 3COVID-19 sandhya gonzalez (ICD-10 - U09.9)There is some question about trying low-dose naltrexone. This is something that would come through her POTS specialist. Oct, 3PTSD (post-traumatic stress disorder) (ICD-10 - F43.10)Certainly continue with psychiatry. [facility] Other 09-06-2023 History of Present illness Narrative* Judy Gamez PSYD - 10/18/2022 8:08 AM EDT GENERAL PSYCHOLOGY Session #: 24 Visit Type:The patient consented to a virtual visit and their location was confirmed. Pt identity verified: Yes Location: Parked at [address] [facility] Privacy concerns related to pt's present environment discussed: Yes Telehealth Risk Benefit Analysis A) Consistency of presenting problem with use of telehealth services: Engaging effectively in talk therapy which is appropriate to telehealth. B) Client knowledge and skills to use technology: Continues to have the knowledge and skills to participate in telehealth. SUBJECTIVE: States that she can appear normal but something will happen that takes her body back there Is distressed regarding ongoing concerns about medical records she states are inaccurate Discussed ongoing concerns about communication with medical providers PATIENT DATA: Generalized Anxiety Disorder Scale (ROSE MARIE-7) ROSE MARIE - 7 SCORES 10/05/2022 10/18/2022 10/18/2022 ROSE MARIE-7 Score 11 11 11 (0-4) minimal anxiety, (5-9) mild anxiety, (10-14) moderate anxiety, (15-21) severe anxiety Patient Health Questionnaire (PHQ-9) PHQ-9 10/05/2022 10/18/2022 10/18/2022 Score 19 15 15 (0-4) minimal depression, (5-9) mild depression, (10-14) moderate depression, (15-19) moderately severe depression, (20-27) severe depression PROMIS Global Health PROMIS Global Health - (T-Scores - the mean of general population = 50. Five points is a clinicallymeaningful difference.) 07/06/2022 10/05/2022 10/05/2022 Physical T-Score 32.4 29.6 29.6 Mental T-Score 25.1 21.2 21.2 OBJECTIVE: Some behavioral observations limited due to visit being conducted virtually Mental Status Exam: General/Sensorium: AO X 4 - Appearance: Appears well groomed and stated age - Demeanor: Appropriately interactive - Motor Activity: Normal - Speech: Appropriate - Mood: Anxious - Affect: Congruent with mood - Thought Process: Linear, logical, and goal-directed - Associations: Normal - Thought Content: Appropriate with no SI/HI/AVH - Perceptions: The patient does not appear internally stimulated - Cognition: Appears intact in regards to memory, attention/concentration, fund of knowledge and language skills - Insight: Good - Judgment: Good - ASSESSMENT: Yolanda Aparicio was actively engaged in the session and demonstrated motivation towards therapy goals. Will likely benefit from continued psychotherapy to support management of mood and anxiety. DIAGNOSIS: (F42.2) Mixed obsessional thoughts and acts (primary encounter diagnosis) (F43.10) PTSD (post-traumatic stress disorder) TREATMENT MODALITIES: DBT PROGRESS TO DATE: Intermediate Progress: Progress Short Term Condition: Progress GOALS/OBJECTIVES/INTERVENTIONS: Validate emotional experience Reframe unhelpful thinking Support boundary-setting/assertive communication SHORT-TERM OBJECTIVE/INTERVENTION: processed emotions regarding recent hospitalization Approximately 50 minutes were spent with the patient doing therapy. Judy Gamez PSYD documented in this encounterCinc[facility]09-01-[facility] History of Present illness Narrative* Opal De Luna MD - 10/13/2022 10:04 AM EDT Naila Aparicio has post-Covid syndrome. Patient saw on 10/10/2022 Patient seen by - Functional medicine 10/09/2022 Here because the Worker comp site state that is not Work Comp approved doctor and I am. Discussed that I am Integrative medicine specialist like and started on LDN and no need tosee 2 specialist in 2 days for the same symptoms. As Integrative medicine specialist I do not perform Worker comp evaluation or paperwork. Visit today is canceled. Opal De Luna documented in this encounterCinc[facility]09-01-2023 Miscellaneous Notes* Telephone Encounter - Judy Gamez PSYD - 10/13/2022 8:07 AM EDT Pt requesting to reschedule. Is it possible to give her a call back? I have 8am open next Sunday. Thanks! documented in this encounterCincinnati [facility]08-29-2023 Evaluation note* Encounter Date Diagnosis Assessment Notes Treatment Notes Treatment Clinical Notes Sep, Chest pain, unspecified type (IC D-10 - R07.9) eRx sent. Historically we have used this medication to good success with her occasional chest discomfort symptoms. She will call with results. Sep,hronic fatigue syndrome (ICD-10 - G93.32)Certainly meets criteria, but must consider that this would be influenced by long covid/POTS. [facility] Other 08-29-2023 History of Present illness Narrative* Shanika Forte MD - 10/10/2022 9:00 AM EDT 27 year old female virtual visit for an Integrative Medicine consultation (Dept of Wellness & Preventive Medicine, [facility]) I have communicated my name and active licensure. The patient's identity and physical location wereverified at the time of this visit. Either the patient or their legal senior sales representative has been informed of the risks and benefits of -- and alternatives to -- treatment through a remote evaluation andconsents to proceed with the evaluation remotely. 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 I feel LDN (low dose naltrexone) is worth trying. Due to multiple drug sensitivity, I would recommend -- 0.5 mg per day for 1 week Then 1 mg Then 1.5 mg (increase every week) She can use [facility] in [place] She will let me know if she is interested in this. Other option is acupuncture - I explained possible benefit to relieve her sx Follow up in 2-3 months HISTORY OF PRESENT ILLNESS: Chief complaint -- post COVID, POTS COVID infection in Jan 2020 Since then, she has multiple lingering sx Tachycardia, SOB, chest pain, dizziness, lightheadedness - presyncope, brain fog, fatigue, exerciseintolerance Were seeing Dr. Ng and Dr. Pavon at [facility] since Oct 2020 Participated Long ha[facility] COVID SMA in [address] Ng was in Jan 2022 Was diagnosed as POTS which seems to be triggered by post COVID syn Seeing [facility] neurology team, taking beta yariel Overall, there has been not much improvement in the last 2.5 years These sx are affecting her daily QOL very bad She thinks her body is very sensitive to multiple meds MSQ (Medical Symptoms Questionnaire): 105 REVIEW OF SYSTEMS See flow sheet for details GENERAL: + fatigue. No fever. No weight loss. + insomnia HEENT: + headache, + Nasal congestion, No sinus pressure. No ear pain. NECK: No neck pain, No lumps, goiter, or difficulty swallowing. RESPIRATORY: + cough or SOB. CARDIOVASCULAR: + CP, palpitations, or skipped heart beat. GI: + N/V. No Constipation, bloating, heartburn. No gassiness or pain. : No pain or frequency. MUSCULOSKELETAL: No Joint pain. No muscle aches and pain, arthritis, stiffness, or weakness. SKIN: No rash or hives. No hair loss. PSYCH: + anxiety, depression. NEURO: + dizziness. PHYSICAL EXAMINATION (virtual) General Pleasant and in no acute distress, Well appearing, Alert, Well dressed and groomed HEENT Head normocephalic, Hair normal in quality Chest and Lungs Symmetrical chest rise, Unlabored breathing, Speaking in full sentences, No nasal flaring Extremities No visualized edema or erythema, Normal hair distribution Musculoskeletal Normal in appearance, Normal ROM in spine / extremities Alert and oriented x 3, Normal gait, Normal speech, Able to stand from chair without use of arms, Tremor absent with touching nose or arms extended, Sensation intact Psych Normal posture, Normal motor behavior, Good eye contact, Attentive, Normal thought processes, Follows commands appropriately 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) Postural orthostatic tachycardia syndrome 11/01/2020 PAST SURGICAL HISTORY Procedure Laterality Date NONE ALLERGIES Allergen Reactions Modafinil Mental Status Change Amoxicillin-Pot Cla* Other: See Comments extreme dizziness Bactrim [Sulfametho* GI Upset Cephalexin Unknown Ciprofloxacin Unknown Lexapro [Escitalopr* GI Upset [place] Juice Rash Sertraline Mental Status Change, Other: See Comments Trimethoprim Other: See Comments Current Outpatient Medications on File Prior to Visit Medication Sig cephALEXin (KEFLEX) 500 mg capsule Take 500 mg by mouth every 8 hours. fluticasone (FLONASE) 50 mcg/actuation nasal spray Use 2 Sprays in each nostril once daily. acetaminophen (ACETAMINOPHEN EXTRA STRENGTH) 500 mg tablet Take 500 mg by mouth every 6 hours as needed for pain. meclizine (ANTIVERT) 25 mg tab Take 50 mg by mouth three times daily as needed (TID PRN). As neededTID tiZANidine (ZANAFLEX) 4 mg tablet Take 1 tablet by mouth daily at bedtime. gabapentin (NEURONTIN) 100 mg capsule Take 2 capsules by mouth twice daily. (taken with 300mg capsule) (Patient taking differently: Take 200 mg by mouth once daily. (taken with 300mg capsule)) gabapentin (NEURONTIN) 300 mg capsule 1 capsule 2x/day (Patient taking differently: once daily. 1 capsule 2x/day) ondansetron orally disintegrating (ZOFRAN ODT) 4 mg disintegrating tablet Take 4 mg by mouth every 6 hours. ibuprofen (MOTRIN) 200 mg tablet Take 200 mg by mouth every 6 hours as needed for pain. acetaminophen (TYLENOL) 500 mg tablet Take 500 mg by mouth as needed. No current facility-administered medications on file prior to visit. FAMILY HISTORY Problem Relation Age of Onset Hypertension Father Hyperlipidemia Father Hyperlipidemia Maternal Grandmother other (afib) Maternal Grandmother Heart Attack Paternal Grandmother (Assessment and Plan are described above) I spent a total of 60 minutes on the date of the service which included preparing to see the patient, completing clinical documentation, obtaining and/or reviewing separately obtained history, performing a medically appropriate examination, and counseling and educating the patient/family/caregiver. Shanika Forte MD 10/10/2022 documented in this encounterCinc[facility]08-28-2023 History of Present illness Narrative* Jimenez Sandoval MD - 10/09/2022 2:53 PM EDT Virtual Visit Last seen: 06/26/22 I have communicated my name and active licensure. The patient's identity and physical location wereverified at the time of this visit. Either the patient or their legal senior sales representative has been informed of the risks and benefits of -- and alternatives to -- treatment through a remote evaluation andconsents to proceed with the evaluation remotely. Overall status: ongoing issues / worse Was in inpatient psychiatry briefly (48 hours) / Samantha Guzman CNP's office was concerned about her well being. Police showed up. Said she was going to take her benos so she can go to sleep. This was apparently misconstrued as a suicide intent. Main symptoms: dizziness / lightheadedness, tachycardia, chest pain, fatigue, brain fog Gabapentin 500mg, 2x/day Valium 2mg PRN No sig benefit - may take on tablet 1-2x/week Walking with Dr Gamez in Psychology currently Daryl Jessica (neuro / autonom) - 09/22/22 Neck discomfort has improvement Has not been getting headaches on a regular basis Intermittent headaches respond to tylenol (no n/v though +- photo - not sure if during a headache) Has not had botox since early 2021 Not currently in PT Appears more animated and energetic than before Dx Ongoing issues with POTS and long COVID I don't have any concerns that the patient is a threat to herself Plan: I'm not sure what more to offer right now May benefit from lower extremity strengthening exercises Consider cardiac rehab for POTS (patient has only had this at home) Patient in agreement with plan cc: Misha Sy DO* (to sec*) [place], DO Megan Diehl Kyle, CNP Pillai, Jagan, MD Potter, Dawn, PSYD Total Time: 25 min Virtual Visit performed using: Zoom Patient was accompanied by: Self Patient verbally consented to this electronic visit Patient-Entered Questionnaire Scores HIT-6 04/02/2018 KP HIT-6 58 Dizziness Handicap Scores 04/19/2021 08/29/2021 05/08/2022 Emotional Score - - - Emotional Score 24 24 22 Physical Score - - - Physical Score 18 20 12 Functional Score - - - Functional Score 22 22 22 Total Score - - - Total Score 64 66 56 PHQ-9 09/27/2022 10/05/2022 10/05/2022 Score 18 19 19 documented in this encounterCinc[facility]08-24-2023 Miscellaneous Notes* Telephone Encounter - Judy Gamez PSYD - 10/05/2022 12:57 PM EDT Most recent message (10/01/22) addressed in visit 10/05. Pt understands therapy is voluntary and agrees to appointment. Judy Gamez PsyD Psychologist [facility] 10/05/2022 documented in this encounterCinc[facility]08-24-2023 History of Present illness Narrative* Judy Gamez PSYD - 10/05/2022 12:37 PM EDT GENERAL PSYCHOLOGY Session #: 23 Visit Type:The patient consented to a virtual visit and their location was confirmed. Pt identity verified: Yes Location: parked in [facility] parking [facility] Privacy concerns related to pt's present environment discussed: Yes Telehealth Risk Benefit Analysis A) Consistency of presenting problem with use of telehealth services: Engaging effectively in talk therapy which is appropriate to telehealth. B) Client knowledge and skills to use technology: Continues to have the knowledge and skills to participate in telehealth. SUBJECTIVE: Constantly feeling like she could throw up at any minute Sleep is not good - up from 12:30am to 4:30am last night for example Hair has been falling out a lot, has been going on for a little while Not sure if she wants to continue therapy Feeling like she is always being blamed, people do not want to talk about what triggered her, only how she reacted to it Explains that she told police she wanted to take her benzos and go to sleep, but did not state she wanted to overtake them Considering going to medical boards regarding recent hospitalization PATIENT DATA: Generalized Anxiety Disorder Scale (ROSE MARIE-7) ROSE MARIE - 7 SCORES 09/21/2022 10/05/2022 10/05/2022 ROSE MARIE-7 Score 18 11 11 (0-4) minimal anxiety, (5-9) mild anxiety, (10-14) moderate anxiety, (15-21) severe anxiety Patient Health Questionnaire (PHQ-9) PHQ-9 09/27/2022 10/05/2022 10/05/2022 Score 18 19 19 (0-4) minimal depression, (5-9) mild depression, (10-14) moderate depression, (15-19) moderately severe depression, (20-27) severe depression PROMIS Global Health PROMIS Global Health - (T-Scores - the mean of general population = 50. Five points is a clinicallymeaningful difference.) 07/06/2022 10/05/2022 10/05/2022 Physical T-Score 32.4 29.6 29.6 Mental T-Score 25.1 21.2 21.2 OBJECTIVE: Some behavioral observations limited due to visit being conducted virtually Mental Status Exam: General/Sensorium: AO X 4 - Appearance: Appears well groomed and stated age - Demeanor: Appropriately interactive - Motor Activity: Normal - Speech: Appropriate - Mood: Reports feeling depressed and Anxious - Affect: Congruent with mood - Thought Process: Linear, logical, and goal-directed - Associations: Normal - Thought Content: Appropriate with no SI/HI/AVH - Perceptions: The patient does not appear internally stimulated - Cognition: Appears intact in regards to memory, attention/concentration, fund of knowledge and language skills - Insight: Good - Judgment: Good - ASSESSMENT: Yolanda Aparicio was actively engaged in the session and demonstrated motivation towards therapy goals. Will likely benefit from continued psychotherapy if she chooses to process trauma and reduce anxiety. DIAGNOSIS: (F42.2) Mixed obsessional thoughts and acts (primary encounter diagnosis) (F43.10) PTSD (post-traumatic stress disorder) TREATMENT MODALITIES: DBT PROGRESS TO DATE: Portal Administrator Progress: Progress Short Term Condition: Progress GOALS/OBJECTIVES/INTERVENTIONS: Validate emotional experience Reframe unhelpful thinking Support boundary-setting/assertive communication SHORT-TERM OBJECTIVE/INTERVENTION: Permission given to communicate with Jaskaran Megan QUINN Pt states today Dr. Enriquez and Dr. Ward to not be involved in her care, would only like him to speak with present provider regarding mental health (Dr. Gamez) Approximately 60 minutes were spent with the patient doing therapy. Judy Gamez PSYD documented in this encounterCincinnati [facility]08-17-2023 Miscellaneous Notes* Telephone Encounter - Judy Gamez PSYD - 09/28/2022 7:08 AM EDT Can pt be added to my calendar at 5pm on 10/04 for a 30 minute visit? Thanks! documented in this encounterCincinnati [facility]08-16-2023 Miscellaneous Notes* Telephone Encounter - Judy Gamez PSYD - 09/27/2022 11:38 AM EDT To add on pt next week. documented in this encounterCincinnati [facility]08-14-2023 Evaluation note* Encounter Date Diagnosis Assessment Notes Treatment Notes Treatment Clinical Notes Sep, Dysuria (ICD-10 - R30.0) [facility] Other 08-11-2023 Evaluation note* Encounter Date Diagnosis Assessment Notes Treatment Notes Treatment Clinical Notes Sep, Acute cystitis with hematuria (I CD-10 - N30.01) [facility] Other 08-11-2023 Miscellaneous Notes* Telephone Encounter - Haleigh Lugo RN - 09/22/2022 1:27 PM EDT [place] reviewed. Saw pt today in office visit. HALLEY Russell, RN, BA * Telephone Encounter - Haleigh Lugo RN - 09/22/2022 11:03 AM EDT Images from the original note were not included. documented in this encounterCincinnati [facility]08-10-2023 Evaluation note* Encounter Date Diagnosis Assessment Notes Treatment Notes Treatment Clinical Notes Sep, POTS (postural orthostatic tachy cardia syndrome) (ICD-10 - I49.8) I also think that she really needs to make sure she continues with the POTS specialist. Sep,TSD (post-traumatic stress disorder) (ICD-10 - F43.10)I very much suggest that she continue to follow-up with her psychologist. She thinks that she will do this. Sep,Other personal history of psychological trauma, not elsewhere classified (ICD-10 - Z91.49)Lengthy discussion with patient today that I am happy to hear/understand that she is not suicidal in any way. It is difficult to assess exactly what transpired recently, but I am glad that her psychologist did advocate for her release. She really needs to continue to follow-up with psychologist, asshe is aware that this office does not do psychiatric care. Sep,ysuria (ICD-10 - R30.0)Urine here today was negative, we will send it for culture for recheck. We will call her with results. [facility] Other 08-08-2023 Miscellaneous Notes* Telephone Encounter - Judy Gamez PSYD - 09/19/2022 2:27 PM EDT Returned pt's call and answered questions. Judy Gamez PsyD [facility] 09/19/2022 * Telephone Encounter - Alena Le - 09/19/2022 7:43 AM EDT Yolanda called and left a vm asking for a call back. She said it is in regards to questions she needs clarification on before she calls the ombudsman's office. * Telephone Encounter - Judy Gamez PSYD - 09/15/2022 11:25 AM EDT Yolanda is scheduled with me 5pm on Sunday. I am not seeing pt's today and may not be able to call. Can she be notified of that appointment? I am not sure she is aware as it was arranged with one of her doctors. Judy Gamez PsyD [facility] 09/15/2022 * Telephone Encounter - Alena Le - 09/15/2022 8:03 AM EDT Yolanda is wanting to know if you are able to give her a call back when you get the chance. She alsoleft a voicemail yesterday a little after 5pm asking for a call back as well. Phone number left is [phone]. documented in this encounterCincinnati [facility]08-07-2023 History of Present illness Narrative* Judy Gamez PSYD - 09/18/2022 5:04 PM EDT GENERAL PSYCHOLOGY Session #: 21 Visit Type:The patient consented to a virtual visit and their location was confirmed. Pt identity verified: Yes Location: pt at home in [place] Privacy concerns related to pt's present environment discussed: Yes Telehealth Risk Benefit Analysis A) Consistency of presenting problem with use of telehealth services: Engaging effectively in talk therapy which is appropriate to telehealth. B) Client knowledge and skills to use technology: Continues to have the knowledge and skills to participate in telehealth. SUBJECTIVE: Discussed her feelings about recent hospitalization, does not believe it was warranted Feeling let down by care team Distressed Did not express any suicidal ideation today, has future-oriented thinking PATIENT DATA: Generalized Anxiety Disorder Scale (ROSE MARIE-7) ROSE MARIE - 7 SCORES 08/08/2022 08/23/2022 09/13/2022 ROSE MARIE-7 Score 6 7 10 (0-4) minimal anxiety, (5-9) mild anxiety, (10-14) moderate anxiety, (15-21) severe anxiety Patient Health Questionnaire (PHQ-9) PHQ-9 08/23/2022 09/13/2022 09/18/2022 Score 10 16 15 (0-4) minimal depression, (5-9) mild depression, (10-14) moderate depression, (15-19) moderately severe depression, (20-27) severe depression PROMIS Global Health PROMIS Global Health - (T-Scores - the mean of general population = 50. Five points is a clinicallymeaningful difference.) 07/06/2022 07/06/2022 07/06/2022 Physical T-Score 32.4 32.4 32.4 Mental T-Score 25.1 25.1 25.1 OBJECTIVE: Some behavioral observations limited due to visit being conducted virtually Mental Status Exam: General/Sensorium: AO X 4 and In moderate distress - Appearance: Appears well groomed and stated age - Demeanor: Appropriately interactive - Motor Activity: Normal - Speech: Appropriate - Mood: Anxious and Reports feeling depressed - Affect: Congruent with mood - Thought Process: Linear, logical, and goal-directed - Associations: Normal - Thought Content: Appropriate with no SI/HI/AVH - Perceptions: The patient does not appear internally stimulated - Cognition: Appears intact in regards to memory, attention/concentration, fund of knowledge and language skills - Insight: Good - Judgment: Good - ASSESSMENT: Yolanda Aparicio was actively engaged in the session and demonstrated motivation towards therapy goals. She was recently released from a psychiatric hospitalization, which she believes was unwarranted. She did not express any suicidal ideation in our session today and has no history of suicide attempts. She was very distressed today, however, this distress was related to her experience of hospitalization and the circumstances surrounding it. I encouraged her to contact our ombudsman regarding her concerns and indicated I will contact Dr. Enriquez on her behalf regarding pt's concerns. Pt gave permission for me to speak with Dr. Enriquez about her concerns, however, also stated she does not wish for Dr. Enriquez to be involved in her care. Pt will likely benefit from continued psychotherapy to support management of distress. DIAGNOSIS: (F43.10) PTSD (post-traumatic stress disorder) (primary encounter diagnosis) (F42.9) Obsessive-compulsive disorder, unspecified type (G90.A) POTS (postural orthostatic tachycardia syndrome) (U09.9) Post-acute 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) TREATMENT MODALITIES: DBT PROGRESS TO DATE: Portal Administrator Progress: Progress Short Term Condition: Regressed GOALS/OBJECTIVES/INTERVENTIONS: Validate pt emotions We discussed personality traits vs diagnosis, and I explained that I am not diagnosing a personality disorder due to lack of evidence of chronic sx, pt not meeting diagnostic criteria at present time Answer questions about recent suicide risk intervention and hospitalization within my knowledge Encourage pt to speak with fallon Approximately 70 minutes were spent with the patient doing therapy. Judy Gamez PSYD documented in this encounterCincinnati [facility]08-03-2023 Miscellaneous Notes* Telephone Encounter - Judy aGmez PSYD - 09/14/2022 3:24 PM EDT Spoke with Dr. Murdock (who is treating pt at [facility]) regarding pt's current psychiatric admission for suicide risk. Provided relevant clinical information regarding pt psychosocial situation to inform risk assessment for suicide. Agreed to arrange close follow-up with pt upon hospital discharge. Judy Gamez PsyD Psychologist [facility] 09/14/2022 * Telephone Encounter - Judy Gamez PSYD - 09/14/2022 3:23 PM EDT Phoned pt back at her request today. She is still [facility]. She requested I speak with Dr. Murdock. Judy Gamez PsyD Psychologist [facility] 09/14/2022 documented in this encounterCincinnati [facility]08-03-2023 Miscellaneous Notes* Telephone Encounter - Judy Gamez PSYD - 09/14/2022 1:43 PM EDT Can pt be added to my calendar 5pm on Monday 09/18? documented in this encounterCincinnati [facility]08-03-2023 Miscellaneous Notes* Telephone Encounter - Jaskaran Guzman APRN.CNP - 09/14/2022 10:[address] Murdock from [facility] reached out to me via my F iPhone regarding Yolanda. Dr. Murdock inquired about the circumstances yesterday that lead to Yolanda's admission to the hospital. I discussed her ReturnHauler message that was sent to us and that despite numerous calls, we could not reach her via telephone to ensure she was safe. Due to this, a police well-check was performed. I discussed that the manufacturing team leader spent time with Yolanda and per the manufacturing team leader Yolanda stated that she was going to take her Benzodiazepines in order to go into a deep sleep. Due to this, she was broughtto the Emergency Room for further assessment. Dr. Murdock did inquire about any mental health concerns in the past and I told him that Yolanda is followed by Dr. Judy Gamez in psychology here at [facility] and saw Dr. Liliane Enriquez for one appointment. Dr. Murdock did inquire about her medications and wanted to know current doses of gabapentin, Tizanidine, and Metoprolol. I provided this information. Dr. Murdock asked that I provide his cell phone number to Dr. Judy Gamez to speak with her about Yolanda. I sent a secure message to Dr. Gamez with Dr. Murdock's cell phone number. I expressed to Dr. Murdock that I am here should he have any more questions or concerns and to not hesitate to reach out via [facility] cell phone. Jaskaran Guzman APRN.CNP September 14, 2022 Time Spent: 22 minutes documented in this encounterCincinnati [facility]08-03-2023 Miscellaneous Notes* Telephone Encounter - Jeannine Bailey - 09/14/2022 10:10 AM EDT Called patient regarding concerning mychart. Left voicemail. documented in this encounterCincinnati [facility]08-02-2023 Miscellaneous Notes* Telephone Encounter - Judy Gamez PSYD - 09/13/2022 5:03 PM EDT Spoke with pt - she is in ED and states they have pink-slipped her. She does not believe this is justified, says that she did not say she was going to overdose. States her phone battery is dying. Ourconversation was cut off, likely due to battery dying. Judy Gamez PsyD [facility] 09/13/2022 documented in this encounterCincinnati [facility]08-02-2023 Miscellaneous Notes* Telephone Encounter - Jaskaran Guzman APRN.CNP - 09/13/2022 12:44 PM EDT [place] PD did call my RN stating that Yolanda has suicidal ideation with active plan. Yolanda will be going to [facility] Emergency Room for evaluation. Called [facility] and gave report to Dr. Staples regarding Yolanda. All questions/concerns answered. Jaskaran Guzman APRN.CNP September 13, 2022 documented in this encounterCincinnati [facility]08-02-2023 Miscellaneous Notes* Telephone Encounter - Judy Gamez PSYD - 09/13/2022 12:35 PM EDT Spoke with pt in appointment and apologized for running late. documented in this encounterCleveland [id number] History of Present illness Narrative* Judy Gamez PSYD - 09/13/2022 8:11 AM EDT GENERAL PSYCHOLOGY Session #: 20 Visit Type:The patient consented to a virtual visit and their location was confirmed. Pt identity verified: Yes Location: parked in her vehicle in [place] [employer] [place] Privacy concerns related to pt's present environment discussed: Yes Telehealth Risk Benefit Analysis A) Consistency of presenting problem with use of telehealth services: Engaging effectively in talk therapy which is appropriate to telehealth. B) Client knowledge and skills to use technology: Continues to have the knowledge and skills to participate in telehealth. SUBJECTIVE: Discussed ongoing stressors - worker's comp issues - interpersonal concerns Has a lot going on PATIENT DATA: Generalized Anxiety Disorder Scale (ROSE MARIE-7) ROSE MARIE - 7 SCORES 08/08/2022 08/23/2022 09/13/2022 ROSE MARIE-7 Score 6 7 10 (0-4) minimal anxiety, (5-9) mild anxiety, (10-14) moderate anxiety, (15-21) severe anxiety Patient Health Questionnaire (PHQ-9) PHQ-9 08/08/2022 08/23/2022 09/13/2022 Score 10 10 16 (0-4) minimal depression, (5-9) mild depression, (10-14) moderate depression, (15-19) moderately severe depression, (20-27) severe depression PROMIS Global Health PROMIS Global Health - (T-Scores - the mean of general population = 50. Five points is a clinicallymeaningful difference.) 07/06/2022 07/06/2022 07/06/2022 Physical T-Score 32.4 32.4 32.4 Mental T-Score 25.1 25.1 25.1 OBJECTIVE: Some behavioral observations limited due to visit being conducted virtually Mental Status Exam: General/Sensorium: AO X 4 - Appearance: Appears well groomed and stated age - Demeanor: Appropriately interactive - Motor Activity: Normal - Speech: Appropriate - Mood: Anxious - Affect: Congruent with mood - Thought Process: Linear, logical, and goal-directed - Associations: Normal - Thought Content: Appropriate with no SI/HI/AVH - Perceptions: The patient does not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 brushing, singing and chanting can also help. Treating POTS is essential as things in the body will start to balance. Hydrate with 64 ounces of water per day. Keep it low sugar and try to avoid artificial colors and artificial sweeteners. Moving the body helps the gut and is essential in POTS care. 5-15 minutes per day of wellness can show your brain and body that it can be an adrenaline free zone. Additional supplements to consider: Magnesium Stearate or Glycinate Oregano Pills [place] Oils Prebiotics and Probiotics COQ10 MG Daily POTS physiology. When you stand two water bottles of blood drop. To compensate, the body speeds up the heart in an effort to get blood to your brain so you don't faint. This is adrenaline and while it may feel terrible it is an autonomic protective mechanism. The brain controls the Autonomic Nervous System. The Sympathetic Nervous System is responsible for stress and survival. The Parasympathetic Nervous System is responsible for growth and repair. Finding the balance between the Sympathetic and Parasympathetic for those of us living with POTS presents a challenge. The Sympathetic cardiac nerves increase and force of contraction, whereas the Vagus nerve (parasympathetic) decreases heart rate. The Baroreceptor sends signals to the brain. The brain is like a smartphone and creates memories from the experiences as is the case with adrenaline. The brain is tied into speeding up the heartrate and adrenaline. You may notice adrenaline surges coming at around the same time each day. That is the memory-make adrenaline and then do it again and again on a loop. A pattern of symptoms form such as pain, racing heart rate, headaches, and tingling. After this heightened form of adrenaline takes place, the polyvagal symptoms may take over: the heart rate and blood pressure drop, you may feel cold, feel the sensation of rubber legs, defecate, urinate etc. This explains the cycle of Fight, Flight, and Freeze. Once your body gives way to adrenaline, you may become listless and exhausted feeling the rag doll effect. This can last for hour to days. An effective way to lower heart rate is called the COLD EFFECT DIVE REFLEX: If you hold your breathand put your face in cold water, your heart will immediately slow down by 25%. Using a cold washcloth in a plastic sandwich bag can also help lower heart rate. Tongue on roof of soft palate slows heart rate: To perform, curl tongue back to touch the soft palate in the mouth. Your mouth may remain open a tad, make an R sound. Doing this numerous times in a day will reduce adrenaline symptoms such as lowering HR, decreased sweating, and decrease brain fog as well as jitteriness. Another effectiveexercise is performing the Valsalva maneuver to prevent palpitations. To do this 1. Pinch your nose, 2. Close your mouth, 3. Then try to breathe out. To explain at a more scientific and evolutionary level would be to talk about the Mammalian Diving Reflex: A Marine mammals' physiological response when stimulated by cold water submersion is the shunting blood from their peripheral tissues to their body's core. The increased blood volume in the core then stimulates a vagal response which produces profound bradycardia. This shunting of blood fromnon-essential organs and the lowered oxygen demand allows the diving mammal to remain underwater for a prolonged period. We also discussed nose breathing as it is much more effective than mouth breathing when it comes tocalming heart rate. Three breaths in, hold for 8, three breaths out. Over time with proper care, the heart rate is controlled by exercise and medication, but remember it is possible to still feel POTS symptoms with normal vitals. The idea is through wellness modalities to create new memories and files. By realizing this is occurring, being patient with oneself and mi ndfulness, relaxation, and decluttering rework the circuits for more positive experiences The brain does get involved with POTS. The baroreceptor does have localization sites into the brainstem. This is why we can see in head injury cause POTS. Also the brain getting activate in adrenergic state of flight or fight or freeze can cause more than just typical body or heart rate symptoms, but also the brain symptoms of jittery, cannot think, confused at times, restless, headaches, dizzy, jerky limbs, tight muscles, pain, ,less hope, and less creative. The brain as we said is in downstairs mode of the lower center operating and more of the amygdala . This can become more automatic and the default response. The brain is a circuit and remembers this is what it is to do. Recognizing this as occurring is pepe and next steps is to show your brain is okay to learn new ways of circuits is pepe. New ways are via wellness, exercise, medication at times, and even health psychology. We have health psychology here to show nervous system new ways to be again, relaxation tools. Biofeedback, and tips for living with a disease. We can offer this health psychology by sending a [employer] message to us . POTS CHAT--BRAIN MEMORIES-- Medications/Supplements Recommended: Medication orders placed this encounter Acetyl-L Carnitine 500mg (Pure Encapulations) Sig: Take 2 capsules daily in divided doses between meals. Dispense: 90 capsule Refill: 1 [place] Lumbrokinase (Monitise) Sig: Take 1 capsule 3 times daily, 30 minutes before each meal. Current Outpatient Medications Medication Sig Acetyl-L Carnitine 500mg (Pure Encapulations) Take 2 capsules daily in divided doses between meals. [place] Lumbrokinase (Monitise) Take 1 capsule 3 times daily, 30 minutes before eachmeal. sodium chloride 1 gram tab TAKE 1 TABLET BY MOUTH 3 TIMES A DAY *TAKE WITH FOOD* metoprolol tartrate, short acting, (LOPRESSOR) 25 mg tablet Pt taking 12.5 mg in am and 25 mg at night gabapentin (NEURONTIN) 100 mg capsule Take 2 capsules by mouth twice daily. (taken with 300mg capsule) hydrOXYzine HCl (ATARAX) 10 mg tablet Take 1 tablet by mouth three times daily as needed. gabapentin (NEURONTIN) 300 mg capsule 1 capsule 2x/day tiZANidine (ZANAFLEX) 4 mg tablet Take 1 tablet by mouth daily at bedtime. ondansetron orally disintegrating (ZOFRAN ODT) 4 mg disintegrating tablet Take 4 mg by mouth once daily as needed. ibuprofen (MOTRIN) 200 mg tablet Take 200 mg by mouth as needed. acetaminophen (TYLENOL) 500 mg tablet Take 500 mg by mouth as needed. No current facility-administered medications for this visit. I recommend the supplements from the [facility]mag Online Store as we have thoroughly evaluated the research and use only highest quality supplements. Get started by following four easy steps: Visit the following webpage: [email or web address] Create an account: Enter your first name, last name, email address which will be your username Create password Select a referring physician from the dropdown box. If they are not listed, select other If you are a new patient, enter the following provider code: Functional Order recommended supplementation Enter the supplement name in the search box Add all supplements to your cart and proceed to checkout. Orders of $100 or more qualify for free shipping. *Please allow 5-7 business days for delivery. For issues with your MRN please call [phone] Provider Code: Functional (not case sensitive) Future Plans: Follow up: Please schedule a follow up visit with the following Caregivers: Provider: Virtual visit with Dr So in 10-12 weeks or first available. Please call or go to [email or web address] to schedule a follow up visit. Nutrition: as needed Health coach tour driver: as needed LIFESTYLE PRESCRIPTION Functional Nutrition: per nutrition Sleep: Sleep goal for most adults is a minimum of 7-9 hours nightly. Exercise Prescription: Numerous studies confirm the benefits of regular moderate aerobic exercise (walking, swimming, elliptical machine, cycling, etc.) for 30 min 5 days per week (150 min goal). Stress Management: 1) Please look into this Heart Rate Variability BioFeedback Tool (www.heartmath.org). 2) A regular, daily meditation practice of at least 15-20 minutes will change your brain--as well as your genes! Behavioral Health Therapist: If I recommended counseling or individual therapy, please schedule an individual appointment with our Functional Medicine Behavioral Health Therapist after your visit today. The Behavioral Health Therapist helps patients identify and understand feelings and behaviors, experience the process of making positive change, and gain healthy coping skills. Health Coaching: Please consider scheduling with our [facility] health coaches for a phone or virtual visit for accountability, goal setting and help with behavior change management director the next 6-8 weeks to be successful with your goals. [phone]. Smart phone apps to begin a meditative practice: Headspace (free for first 10 days) Insight Meditation Timer- (Free)-Great all-around yolanda to use for guided meditations of many different types and lengths or just to use as a tool to time and track your meditation practice. This is myabsolute favorite! Calm- (Free) Walking Meditations-($1.99)- Get your walk AND meditation done together. A good way to start out for individuals who feel they just can't sit still to begin a meditative practice. During the next 6-8 weeks you'll be working on your diet plan discussed with our assistant chief train dispatcher, allowing for gentle detoxification and decreasing inflammation - while we are gathering your lab resultsand combining those with your complete history to formulate a very personalized treatment plan. LAB results: Due to the complexity of the testing performed, we are not able to review labs via ReturnHauler or over the phone, but please know, if any of your labs are critical we will contact you. Otherwise, we will review all your labs at your next visit. Make sure to schedule with the assistant chief train dispatcher (this will not happen automatically) as you did with your first visit so that she can review nutritional aspects of your treatment plan. Potential future labs: Any Rosa labs ordered take about 6 -8 weeks to return. Do them as soon as possible so that we have the results before your next appointment. You can access them on the [employer] and it can be beneficial if you review them prior to your next visit. [email or web address]. Read about NutrEval/GI Effects if this was ordered. [employer] Billing Questions: [email or web address] Please log into the link if you have questions regarding how to perform any of the Rosa Testing Kits ( such as GI Effects, Nutreval, Hydrogen Breath Test ). Please obtain blood draws for the [employer] Diagnostics NutrEval Profile and other test kits ordered by your provider at the [facility] at designated [facility] Labs and times.The designated labs are as follows: ~[facility] [place] : Q2 @ [facility] Sunday-Sunday 8am-1 pm and 1:30pm-4:30 pm G-10 Sunday-Sunday 8am-5pm. ~[facility] : Labs Sunday-Sunday 8am-1pm. ~Or at a local lab where you live: [employer] Haleigh So MD Time spend with patient: I spent 30 minutes in the visit with more than 50% of the time spent counseling in regards to above. documented in this encounterCincinnati [facility]06-21-2023 History of Present illness Narrative* Judy Gamez PSYD - 08/02/2022 10:36 AM EDT GENERAL PSYCHOLOGY Session #: 17 Visit Type:The patient consented to a virtual visit and their location was confirmed. Pt identity verified: Yes Location: pt at home in [place] Privacy concerns related to pt's present environment discussed: Yes Telehealth Risk Benefit Analysis A) Consistency of presenting problem with use of telehealth services: Engaging effectively in talk therapy which is appropriate to telehealth. B) Client knowledge and skills to use technology: Continues to have the knowledge and skills to participate in telehealth. 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 States her family does not listen to her PATIENT DATA: Generalized Anxiety Disorder Scale (ROSE MARIE-7) ROSE MARIE - 7 SCORES 07/06/2022 07/27/2022 07/27/2022 ROSE MARIE-7 Score 6 5 5 (0-4) minimal anxiety, (5-9) mild anxiety, (10-14) moderate anxiety, (15-21) severe anxiety Patient Health Questionnaire (PHQ-9) PHQ-9 07/06/2022 07/27/2022 07/27/2022 Score 9 10 10 (0-4) minimal depression, (5-9) mild depression, (10-14) moderate depression, (15-19) moderately severe depression, (20-27) severe depression PROMIS Global Health PROMIS Global Health - (T-Scores - the mean of general population = 50. Five points is a clinicallymeaningful difference.) 07/06/2022 07/06/2022 07/06/2022 Physical T-Score 32.4 32.4 32.4 Mental T-Score 25.1 25.1 25.1 OBJECTIVE: Some behavioral observations limited due to visit being conducted virtually Mental Status Exam: General/Sensorium: AO X 4 - Appearance: Appears well groomed and stated age - Demeanor: Appropriately interactive - Motor Activity: Normal - Speech: Appropriate - Mood: Anxious and Reports feeling depressed - Affect: Congruent with mood - Thought Process: Linear, logical, and goal-directed - Associations: Normal - Thought Content: Appropriate with no SI/HI/AVH - Perceptions: The patient does not appear internally stimulated - Cognition: Appears intact in regards to memory, attention/concentration, fund of knowledge and language skills - Insight: Good - Judgment: Good - ASSESSMENT: Yolanda Aparicio was actively engaged in the session and demonstrated motivation towards therapy goals. Will likely benefit from continued psychotherapy to process traumatic stressors. DIAGNOSIS: (F43.10) PTSD (post-traumatic stress disorder) (primary encounter diagnosis) TREATMENT MODALITIES: Cognitive Behavioral Therapy to cognitive restructuring PROGRESS TO DATE: Intermediate Progress: Progress Short Term Condition: Progress GOALS/OBJECTIVES/INTERVENTIONS: CPT session 3 Approximately 50 minutes were spent with the patient doing therapy. Judy Gamez PSYD documented in this encounterCincinnati [facility]06-15-[facility]23 Evaluation note* Encounter Date Diagnosis Assessment Notes Treatment Notes Treatment Clinical Notes Jul, Urinary frequency (ICD-10 - R35. 0) Discussed diagnosis and dipstick findings with patient. Will hold off on treatment at this time. Patient declines urine culture today in office based on negative dipstick results. Advised patient that symptoms may be related to dehydration. Patient instructed to push fluids. Patient symptoms should improve in the next 48 hours, if symptoms persist follow up with PCP. Immediate eval by ER if back or flank pain, fever, chills, N/V, or any other concerning symptoms arise. Patient verbalizes understanding and is agreeable to treatment plan Clear[employer] Other [id number] History of Present illness Narrative* Judy Gamez PSYD - 07/27/2022 11:29 AM EDT [facility] Long COVID Support Group Virtual Group Psychotherapy Group time: 10:30am Length of Session: 75 minutes Today's visit was conducted by: Elver Video Visit. Pt was located within the [facility] at thetime of the visit. Patient's presenting problem and technical skills were appropriate to telehealth. Session #7/6 Patients attended session 7 of a six week psychoeducational and support group intervention for psychological factors affecting management of post-acute sequelae of COVID-19. Group members shared regarding their learning about long COVID over the course of group. Environmental Protection Officer reviewed and summarized strategies for managing emotional/behavioral impacts of long COVID using cognitive and behavioral strategies. Group closed with a meditation. Specific Patient Observations: Ms. Aparicio was an active participant in the session. She did demonstrate an understanding of the material presented. She shared about how she ayleen behaviorally and spiritually with long COVID. Patient Entered Data PHQ-9 Score: 10 (07/27/2022 10:29 AM) (0-4) minimal depression, (5-9) mild depression, (10-14) moderate depression, (15-19) moderately severe depression, (20-27) severe depression ROSE MARIE-7 Total Score: 5 (07/27/2022 10:30 AM) (0-4) minimal anxiety, (5-9) mild anxiety, (10-14) moderate anxiety, (15-21) severe anxiety Mental Status Exam: General/Sensorium: AO X 4 - Appearance: Appears well groomed and stated age - Demeanor: Appropriately interactive - Motor Activity: Normal - Speech: Appropriate - Affect: Euthymic - Thought Process: Linear, logical, and goal-directed - Associations: Normal - Thought Content: Appropriate with no SI/HI/AVH - Perceptions: The patient does not appear internally stimulated - Cognition: Appears intact in regards to memory, attention/concentration, fund of knowledge and language skills - Insight: Good - Judgment: Good - Diagnosis: (U09.9) Long COVID (primary encounter diagnosis) (F42.9) Obsessive-compulsive disorder, unspecified type (F43.10) PTSD (post-traumatic stress disorder) (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 Judy Gamez PSYD documented in this encounterCincinnati [facility]06-09-2023 Miscellaneous Notes* Telephone Encounter - Esther Henson Pss - 07/21/2022 9:38 AM EDT Name: Charly. Telephone #: [phone] documented in this encounterCincinnati [facility]06-05-2023 Miscellaneous Notes* Telephone Encounter - Esther Henson Pss - 07/17/2022 4:11 PM EDT Orders faxed. * Telephone Encounter - Jimenez Sandoval MD - 07/17/2022 1:53 PM EDT Updated PT orders to be faxed Jimenez documented in this encounterCincinnati [facility]06-01-2023 History of Present illness Narrative* Judy Gamez PSYD - 07/13/2022 11:13 AM EDT [facility] Long COVID Support Group Virtual Group Psychotherapy Group time: 10:30am Length of Session: 75 minutes Today's visit was conducted by: Amanda Huff DBA [employer]rel Video Visit. Pt was located within the [facility] at thetime of the visit. Patient's presenting problem and technical skills were appropriate to telehealth. Session #5/6 Patients attended session 5 of a six week psychoeducational and support group intervention for psychological factors affecting management of post-acute sequelae of COVID-19. Group began with a discussion of stresses. Patients learned about and set SMART goals. We also discussed the concept of trustin medical decision-making. Specific Patient Observations: Ms. Aparicio was an active participant in the session. She did demonstrate an understanding of the material presented. She shared regarding using spirituality to cope and having laureano. Patient Entered Data PHQ-9 Score: 9 (07/06/2022 9:51 AM) (0-4) minimal depression, (5-9) mild depression, (10-14) moderate depression, (15-19) moderately severe depression, (20-27) severe depression ROSE MARIE-7 Total Score: 6 (07/06/2022 9:53 AM) (0-4) minimal anxiety, (5-9) mild anxiety, (10-14) moderate anxiety, (15-21) severe anxiety Mental Status Exam: General/Sensorium: AO X 4 - Appearance: Appears well groomed and stated age - Demeanor: Appropriately interactive - Motor Activity: Normal - Speech: Appropriate - Affect: Euthymic - Thought Process: Linear, logical, and goal-directed - Associations: Normal - Thought Content: Appropriate with no SI/HI/AVH - Perceptions: The patient does not appear internally stimulated - Cognition: Appears intact in regards to memory, attention/concentration, fund of knowledge and language skills - Insight: Good - Judgment: Good - Diagnosis: (F42.9) Obsessive-compulsive disorder, unspecified type (primary encounter diagnosis) (F43.10) PTSD (post-traumatic stress disorder) (G90.A) POTS (postural orthostatic tachycardia syndrome) (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 Judy Gamez PSYD documented in this encounterCincinnati [facility]05-31-2023 Miscellaneous Notes* Telephone Encounter - Judy Gamez PSYD - 07/12/2022 2:55 PM EDT Packet submitted to be mailed. Judy Gamez PsyD [facility] 07/12/2022 * Telephone Encounter - Judy Gamez PSYD - 07/11/2022 3:19 PM EDT Pt needs CPT packet mailed. documented in this encounterCincinnati [facility]05-30-2023 History of Present illness Narrative* Judy Gamez, MARKYD - 07/11/2022 3:03 PM EDT GENERAL PSYCHOLOGY Session #: 16 Visit Type:The patient consented to a virtual visit and their location was confirmed. Pt identity verified: Yes Location: pt home in [place] Privacy concerns related to pt's present environment discussed: Yes Telehealth Risk Benefit Analysis A) Consistency of presenting problem with use of telehealth services: Engaging effectively in talk therapy which is appropriate to telehealth. B) Client knowledge and skills to use technology: Continues to have the knowledge and skills to participate in telehealth. SUBJECTIVE: Discussed ongoing concerns regarding changing attorneys Reviewed impact statement regarding her most distressing event - discussed experience caring for pts with COVID - felt deceived because she did not know she would be assigned to a COVID floor Before she would go into the world and not think twice about who she was around, what they could becarrying I don't feel safe in the world any more Does not feel like she has control of her life, it is directed by others Her attitude towards herself feels worse PATIENT DATA: Generalized Anxiety Disorder Scale (ROSE MARIE-7) ROSE MARIE - 7 SCORES 07/06/2022 07/06/2022 07/06/2022 ROSE MARIE-7 Score 6 6 6 (0-4) minimal anxiety, (5-9) mild anxiety, (10-14) moderate anxiety, (15-21) severe anxiety Patient Health Questionnaire (PHQ-9) PHQ-9 07/06/2022 07/06/2022 07/06/2022 Score 9 9 9 (0-4) minimal depression, (5-9) mild depression, (10-14) moderate depression, (15-19) moderately severe depression, (20-27) severe depression PROMIS Global Health PROMIS Global Health - (T-Scores - the mean of general population = 50. Five points is a clinicallymeaningful difference.) 07/06/2022 07/06/2022 07/06/2022 Physical T-Score 32.4 32.4 32.4 Mental T-Score 25.1 25.1 25.1 OBJECTIVE: Some behavioral observations limited due to visit being conducted virtually Mental Status Exam: General/Sensorium: AO X 4 - Appearance: Appears well groomed and stated age - Demeanor: Appropriately interactive - Motor Activity: Normal - Speech: Appropriate - Mood: Anxious - Affect: Congruent with mood - Thought Process: Linear, logical, and goal-directed - Associations: Normal - Thought Content: Appropriate with no SI/HI/AVH - Perceptions: The patient does not appear internally stimulated - Cognition: Appears intact in regards to memory, attention/concentration, fund of knowledge and language skills - Insight: Good - Judgment: Good - ASSESSMENT: Yolanda Aparicio was actively engaged in the session and demonstrated motivation towards therapy goals. Will likely benefit from continued psychotherapy to process medical/workplace trauma. 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 Judy Gamez PSYD documented in this encounterCincinnati [facility]05-30-2023 Instructions* Patient Instructions* Mayra Ayon RD - 07/11/2022 12:33 PM EDT [facility] [place] MEDICINE FOLLOW UP NUTRITION INSTRUCTIONS Nutrition Follow-up: In [address] Your Prescribed Nutrition Plan: Nutrition Plan: Eat 3 balanced meals per day: -Aim try to have something within an hour of rising even if it's a small meal (ex fruit with nut butter) -Have your 3 meals every 3-4 hours, all within 12 hours. -Always include a protein, fat and carbohydrate with breakfast, lunch and dinner (use core food plan resources for food group lists) Follow this Formula for Building a Balanced Smoothie: 1 to 2 cups of non-starchy vegetables dark leafy greens, frozen zucchini, cucumbers, beets, and more 1/2 cup of fruit apple, 1/2 banana, dark berries, pomegranite seeds, and more 1 to 2 tablespoons of a healthy fat nut butter, hemp seeds, mary seeds, ground flax, and more 20 grams of protein Plant-based protein powders: pea, hemp, rice, or pumpkin seed High protein nuts/seeds: hemp, mary, or pumpkin seeds; almonds --> if using these, skip adding ahealthy fat 8 ounces of liquid Plant-based milks: pea protein, almond, oat, coconut milk Water Unsweetened herbal tea Consider adding these flavor enhancers: cinnamon, cocoa powder, non-dairy yogurt, vanilla extract, ground dameon or turmeric Smoothie Recipes: Simple Green Smoothies: https://BioKier/ Balancing Creamy Blueberry Smoothie: https://Graphite Software/pwsutlmup-xbqsctlc-qsohnu/ Hormone Balancing Smoothies: https://Universal Ad/fvjbera-vpjgahnod-wpyrokqrm/ Therapeutic Foods for Healthy Mitochondrial Function to consider as you are waiting to start the supplements: 1. Almonds 2. Avocado 3. [place]/Beef, grass-fed 4. Blueberries (and all berries) 5. Broccoli (and all cruciferous vegetables) 6. Coconut Oil (virgin, organic) 7. Green Tea 8. [place] Oil (cold-pressed, unfiltered/cloudy, extra virgin) 9. Pomegranate 10. [place] (wild [place]an) 11. Seaweed 12. Spinach For alternative electrolyte beverages, consider some of the following: -Coconut water (such as [place]less [place] - http://www.Databox.Wally/) -[place] Hydration Drink Mix (https://drinknooma.com/) -Hoist (https://drinkhoist.com/) -Lyte show drops (https://www.lyteshow.com/) -LMNT (https://drinklmnt.com/) -Trace Minerals Electrolyte Drops (https://www.traceminerals.com/product/josl-kjntdlevxew-ivqbp) -Nuun tablets (https://nuunlife.Wally/)-look for non-caffeinated, no added sugar as needed ADDITIONAL INSTRUCTIONS: How to Contact Your Functional Medicine Team (Open M-F 8am-5pm): 1. MyChart is the BEST form of communication to reach the Functional Medicine Team, see test results and request refills. Please allow 72 business hours for a response. Directions for signing up are included in your New Patient Folder. (Or you can go to [email or web address]) 2. For nutrition related questions or concerns, Amanda Huff DBA SecuRecoveryhart message your physician and include Attn: Mayra Ayon RD at the top of the message. ReturnHauler messaging is meant to support implementation of previously outlined nutrition care plans. In the interest of safe, effective and personalized care, you are asked to schedule a follow-up appointment if: It has been >6 months since your last nutrition appointment Your question requires reassessment or involves a new plan of care Your question concerns a new diagnosis, symptoms(s) and/or health concern Ordering Supplements: Supplements can be ordered from the [facility]'s Online Store: [email or web address] New patients to the [facility] will need to enter the provider code FUNCTIONAL to registertheir account. documented in this encounterCincinnati [facility]05-30-2023 History of Present illness Narrative* Mayra Ayon RD - 07/11/2022 10:00 AM EDT [facility] Functional [facility] Nutrition Therapy: Follow-Up Assessment (Individual) VIRTUALVISITPN I have communicated my name and active licensure. The patient's identity and physical location were verified at the time of this visit. Either the patient or their legal representativehas been informed of the risks and benefits of -- and alternatives to -- treatment through a remoteevaluation and consents to proceed with the evaluation remotely. Patient is located in the [facility] at the time of the virtual visit. 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 metoprolol tartrate, short acting, (LOPRESSOR) 25 mg tablet Pt taking 12.5 mg in am and 25 mg at night gabapentin (NEURONTIN) 100 mg capsule Take 2 capsules by mouth twice daily. (taken with 300mg capsule) hydrOXYzine HCl (ATARAX) 10 mg tablet Take 1 tablet by mouth three times daily as needed. gabapentin (NEURONTIN) 300 mg capsule 1 capsule 2x/day tiZANidine (ZANAFLEX) 4 mg tablet Take 1 tablet by mouth daily at bedtime. ondansetron orally disintegrating (ZOFRAN ODT) 4 mg disintegrating tablet Take 4 mg by mouth once daily as needed. ibuprofen (MOTRIN) 200 mg tablet Take 200 mg by mouth as needed. acetaminophen (TYLENOL) 500 mg tablet Take 500 mg by mouth as needed. No current facility-administered medications on file prior to visit. Primary ICD-10 Diagnosis Addressed: Long COVID [U09.9] Provider Nutrition Notes:Nutrition only today Status of Chief Concerns POTS - ebbs and flows Long COVID Sx Vertigo Dizziness Lightheadedness Elevated heart rate Nutrition Assessment (updated 07/11/22) Current Symptom Review: brain fog, chronic fatigue, gldki-soluzj-pfbq, tachycardia, lack of appetite, desires weight loss, nausea Food and Nutrition History (update): core food plan recommended. Reports food doesn't seem to make a difference with symptom trends. Has not started CFM supplements at this time d/t cost and recommendation to work on food first(changing provider). Reports concerned with weight gain, desires weight l oss. Reports cutting soda out of diet led to feeling unwell mentally. Patient reports selective eating preferences. Current Adverse Reactions to Foods: No Food Aversions: fish, teas, nuts other than peanuts, selective with vegetables, Diet Recall: Yes- inconsistent oral intake due to lack of appetite B: not typically hungry for breakfast - protein shake occassionally L: D: parm crusted chicken with chick pea pasta, primal kitchen sauce, salad / banza crust pizza Snacks: chomps, popcorn Beverages: soda(2-x per day), water Anthropometrics LMP 09/05/2020 (Within Weeks) Last Height: Last 1 Encounter Ht Readings: Date: Ht: 04/19/2022 162.6 cm (5' 4 ) Last Weight: Last Wt 05/24/22 : 85.4 kg (188 lb 3.2 oz) 04/20/22 : 85.6 kg (188 lb 12.8 oz) 04/19/22 : 84.8 kg (187 lb) Wt: 85.4 kg (188 lb 3.2 oz) BMI: 32.30 kg/(m^2) Learning Needs Assessment: Barriers to Learning: Ready to Learn (no barriers noted) Assessed motivation to learn: high Biochemical and Laboratory Data Conventional/Advanced Testing Component Latest Ref Rng & Units 04/20/2022 04/28/2022 06/12/2022 WBC 3.70 - 11.00 k/uL 10.86 RBC 3.90 - 5.20 m/uL 4.85 Hemoglobin 11.5 - 15.5 g/dL 13.3 Hematocrit 36.0 - 46.0 % 41.1 MCV 80.0 - 100.0 fL 84.7 MCH 26.0 - 34.0 pg 27.4 MCHC 30.5 - 36.0 g/dL 32.4 RDW-CV 11.5 - 15.0 % 12.9 Platelet Count 150 - 400 k/uL 321 MPV 9.0 - 12.7 fL 10.3 Neut% % 60.8 Abs Neut (ANC) 1.45 - 7.50 k/uL 6.61 Lymph% % 29.7 Abs Lymph 1.00 - 4.00 k/uL 3.22 [place]% % 7.8 Abs [place] <0.87 k/uL 0.85 Eosin% % 0.6 Abs Eosin <0.46 k/uL 0.07 Baso% % 0.6 Abs Baso <0.11 k/uL 0.06 Immature Gran % % 0.5 IMMATURE GRANS (ABS) <0.10 k/uL 0.05 NRBC /100 WBC 0.0 Absolute nRBC <0.01 k/uL <0.01 DTYPE Auto Protein, Total 6.3 - 8.0 g/dL 7.1 Albumin 3.9 - 4.9 g/dL 4.3 Calcium 8.5 - 10.2 mg/dL 9.4 Bilirubin, Total 0.2 - 1.3 mg/dL 0.4 Alkaline Phosphatase 34 - 123 U/L 67 AST 13 - 35 U/L 13 ALT 7 - 38 U/L 9 Glucose 74 - 99 mg/dL 92 BUN 7 - 21 mg/dL 9 Creatinine 0.58 - 0.96 mg/dL 0.78 Sodium 136 - 144 mmol/L 138 Potassium 3.7 - 5.1 mmol/L 4.3 Chloride 97 - 105 mmol/L 103 CO2 22 - 30 mmol/L 23 Anion Gap 9 - 18 mmol/L 12 eGFR >=60 mL/min/1.73m 106 Epinephrine (PLCAT) 10 - 200 pg/mL 41 Norepinephrine 80 - 520 pg/mL 168 Dopamine 0 - 20 pg/mL 20 Catecholamine Interpretation Plasma See Note Iron 41 - 186 ug/dL 68 TIBC 232 - 386 ug/dL 369 Transferrin Saturation 15.0 - 57.0 % 18.4 Melanocyte Stim Hormone Alpha See Note Cortisol 4.8 - 19.5 ug/dL 15.0 ACTH 7.2 - 63.3 pg/mL 33.6 Arginine Vasopressin 0.0 - 6.9 pg/mL <0.5 Osmolality 275 - 300 mOsm/kg 290 Homocysteine, Serum <15.1 umol/L 13.8 UltraSens C-Reactive Protein <3.1 mg/L <0.3 Ferritin 14.7 - 205.1 ng/mL 46.9 Transferrin 200 - 360 mg/dL 275 TSH 0.270 - 4.200 mIU/L 1.630 Free T4 0.9 - 1.7 ng/dL 1.2 Free T3 2.3 - 4.1 pg/mL 3.5 Uric Acid 2.5 - 6.6 mg/dL 4.2 GGT 6 - 46 U/L 10 Laboratory Values Addressed: None addressed today Nutrition Prescription Energy: Resting Metabolic Rate: 1570 Protein: 1.0g/kg Nutrients of Concern: iron Nutrition Diagnosis: Imbalance of Nutrients (NI-5.5) related to current food and beverage choices as evidenced by reviewof dietary recall Status: Active Nutrition Diagnosis: Food and Nutrition Related Knowledge Deficit related to lack of prior education as evidenced by patient request for additional nutrition consultation. Status: Active Nutrition Intervention (New and Reinforcement): Eat 3 balanced meals per day: -Aim try to have something within an hour of rising even if it's a small meal (ex fruit with nut butter) -Have your 3 meals every 3-4 hours, all within 12 hours. -Always include a protein, fat and carbohydrate with breakfast, lunch and dinner (use core food plan resources for food group lists) Follow this Formula for Building a Balanced Smoothie: 1 to 2 cups of non-starchy vegetables dark leafy greens, frozen zucchini, cucumbers, beets, and more 1/2 cup of fruit apple, 1/2 banana, dark berries, pomegranite seeds, and more 1 to 2 tablespoons of a healthy fat nut butter, hemp seeds, mary seeds, ground flax, and more 20 grams of protein Plant-based protein powders: pea, hemp, rice, or pumpkin seed High protein nuts/seeds: hemp, mary, or pumpkin seeds; almonds --> if using these, skip adding ahealthy fat 8 ounces of liquid Plant-based milks: pea protein, almond, oat, coconut milk Water Unsweetened herbal tea Consider adding these flavor enhancers: cinnamon, cocoa powder, non-dairy yogurt, vanilla extract, ground dameon or turmeric Smoothie Recipes: Simple Green Smoothies: https://BioKier/ Balancing Creamy Blueberry Smoothie: https://Graphite Software/tkfnxsgtu-nfhghkii-yxpcfx/ Hormone Balancing Smoothies: https://www.Zinc Ahead.Wally/gsxqedd-vrqhmwfjm-pmeffbizt/ Therapeutic Foods for Healthy Mitochondrial Function to consider as you are waiting to start the supplements: 1. Almonds 2. Avocado 3. [place]/Beef, grass-fed 4. Blueberries (and all berries) 5. Broccoli (and all cruciferous vegetables) 6. Coconut Oil (virgin, organic) 7. Green Tea 8. [place] Oil (cold-pressed, unfiltered/cloudy, extra virgin) 9. Pomegranate 10. [place] (wild [place]an) 11. Seaweed 12. Spinach For alternative electrolyte beverages, consider some of the following: -Coconut water (such as [place]less [place] - http://www.Databox.Wally/) -[place] Hydration Drink Mix (https://drinknooma.Wally/) -Hoist (https://drinkhoist.Wally/) -Lyte show drops (https://www.lyteshow.Wally/) -LMNT (https://drinklmnt.Wally/) -Trace Minerals Electrolyte Drops (https://www.traceminePathway Lending/product/kttl-itajwiiksav-upxkk) -Nuun tablets (https://nuunlife.Wally/)-look for non-caffeinated, no added sugar as needed Current Nutrition Goal(s): reduce diet-related inflammation suspected as symptom trigger and promote adequate nutritional intake to meet macro and micronutrient needs Food Plan: CORE Food Plan ... Resources/Educational Materials Provided embedded above Adherence Potential to Goals/Care Plan: Moderate Nutrition Monitoring & Evaluation: Meal and Snack Pattern, Nutrition Related Laboratory Values,Protein Intake, and Subjective Symptoms Criteria: Laboratory Data, MSQ, Dietary Recall Follow up: 6 weeks Time Spent with patient: 30 minutes Consult Billing Type: Reassessment/15 minutes, 2 increment(s), 30 minutes Number of Increments: 2 (30 minutes) Referred/Supervised by: Dago Guzman MD Signed by: Mayra Ayon RD documented in this encounterCinc[facility] History of Present illness Narrative* Judy Gamez PSYD - 07/06/2022 10:55 AM EDT [facility] Behavioral Health Long COVID Support Group Virtual Group Psychotherapy Group time: 10:30am Length of Session: 75 minutes Today's visit was conducted by: Return[employer] Video Visit. [facility] at thetime of the visit. Patient's presenting problem and technical skills were appropriate to telehealth. Session #4/6 Patients attended session four of a six week psychoeducational and support group intervention for psychological factors affecting management of post-acute sequelae of COVID-19. Group members shared experiences of communication with others. Environmental Protection Officer(s) introduced strategies for assertive communication and boundary-setting. Group ended with a meditation. Specific Patient Observations: Ms. Aparicio was an active participant in the session. She did demonstrate an understanding of the material presented. Shared regarding having POTS due to COVID. Patient Entered Data PHQ-9 Score: 9 (07/06/2022 9:51 AM) (0-4) minimal depression, (5-9) mild depression, (10-14) moderate depression, (15-19) moderately severe depression, (20-27) severe depression ROSE MARIE-7 Total Score: 6 (07/06/2022 9:53 AM) (0-4) minimal anxiety, (5-9) mild anxiety, (10-14) moderate anxiety, (15-21) severe anxiety Mental Status Exam: General/Sensorium: AO X 4 - Appearance: Appears well groomed and stated age - Demeanor: Appropriately interactive - Motor Activity: Normal - Speech: Appropriate - Affect: Euthymic - Thought Process: Linear, logical, and goal-directed - Associations: Normal - Thought Content: Appropriate with no SI/HI/AVH - Perceptions: The patient does not appear internally stimulated - Cognition: Appears intact in regards to memory, attention/concentration, fund of knowledge and language skills - Insight: Good - Judgment: Good - Diagnosis: (F43.10) PTSD (post-traumatic stress disorder) (primary encounter diagnosis) (F42.9) Obsessive-compulsive disorder, unspecified type (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 Judy Gamez PSYD documented in this encounterCincinnati [facility] History of Present illness Narrative* Jimenez Sandoval MD - 06/26/2022 4:00 PM EDT Virtual Visit Last seen: 05/08/22 (virtual) I have communicated my name and active licensure. The patient's identity and physical location wereverified at the time of this visit. Either the patient or their legal senior sales representative has been informed of the risks and benefits of -- and alternatives to -- treatment through a remote evaluation andconsents to proceed with the evaluation remotely. Overall status: no change Main symptoms: Gabapentin 500mg, 2x/day Valium 2mg PRN No sig benefit - may take on tablet 1-2x/week brain fog / forgetfulness - no change overall Constant w/ fluctuation Heart racing - no change On/off Chest pain - on/off, no change Dizziness: general dizziness On/off Can be up to hours More frequent throughout the day Lightheadedness - no change On/off Neck pain: Denies Headache: no longer an issue Neck PT / VR: Energy: no change / still poor, every day Sleep: not the greatest F/u psychology - PTSD / OCD / Long covid Dr Clementine Lanier - [facility] - 05/24/22 - Cognitive changes in setting of mood, lifestyle and medical co-morbidities Psychiatrist - Dr Enriquez - 05/22/22 (virtual) Dx: Ongoing issues with POTS and long COVID Patient feels that she is at a standstill, or possibly getting worse, as she has been away from physical therapy / vestibular PT for a while Plan: - consider vestibular PT / cervical / thoracic (awaiting [facility] appeals) - await possible speech therapy per Dr. Lanier - will update MEDCO 14 paperwork Patient in agreement with plan cc: Misha Sy DO* (to sec*) Fazal Huddleston DO Shannon, Kyle, CNP Pillai, Jagan, MD Total Time: 23 min Virtual Visit performed using: Zoom Patient was accompanied by: Self Patient verbally consented to this electronic visit Patient-Entered Questionnaire Scores HIT-6 04/02/2018 KP HIT-6 58 Dizziness Handicap Scores 04/19/2021 08/29/2021 05/08/2022 Emotional Score - - - Emotional Score 24 24 22 Physical Score - - - Physical Score 18 20 12 Functional Score - - - Functional Score 22 22 22 Total Score - - - Total Score 64 66 56 PHQ-9 06/13/2022 06/26/2022 06/26/2022 Score 9 9 9 documented in this encounterCincinnati [facility]05-08-[facility] History of Present illness Narrative* Samreen Burns [facility] - 06/19/2022 3:08 PM EDT Health Coaching Follow-up VIRTUALVISITPN Current Focus: PT dissatisfied with CFM , unclear of next steps. Nutrition: Stopped fast food, and soda. Diet did not make any changes. Feels fatigue on low sugar diet. Had more energy prior to CFM. Meals are not balanced. Can't live without fast food, and soda .Limited foods have made me mentally unwell. Feels unwell watching every little things, don't like reading labels. 'Allipop made me feel anxious and suicidal. Social Support: lifestyle domain not prioritized today Stress: Unclear of next steps. Physical Activity: lifestyle domain not prioritized today Mindset: lifestyle domain not prioritized today Sleep: lifestyle domain not prioritized today Goals (date): Consistent routine Stress response Wellness Vision: SMART Goal(s)/Current Plan: Dr. So August 03 meet with HC after Recommended Follow-up: monthly Time Spent with patient: 30 minutes Consult Billing Type: 1 increment (30 minutes) Number of Increments: 1 (30 minutes) Signed by: [facility]Our [facility] Anaesthetist documented in this encounterCincinnati [facility]05-08-2023 Miscellaneous Notes* Telephone Encounter - Kelley García MA - 06/19/2022 11:53 AM EDT Patient and provider connected for the appoointment * Telephone Encounter - Kelley García MA - 06/19/2022 11:00 AM EDT Appointment today documented in this encounterCincinnati [facility]05-08-2023 History of Present illness Narrative* Dago Guzman MD - 06/19/2022 11:17 AM EDT DISTANCE HEALTH VISIT This Team Access Model visit is a virtual encounter. It required patient- provider interaction for the medical decision making as documented below. Telemedicine Visit - Distance Health Virtual Visit Note Patient seen on ReturnHauler video visit platform. Location of patient: [place], [place] I have communicated my name and active licensure. The patient's identity and physical location wereverified at the time of this visit. Either the patient or their legal senior sales representative has been informed of the risks and benefits of -- and alternatives to -- treatment through a remote evaluation andconsents to proceed with the evaluation remotely. FUNCTIONAL MEDICINE FOLLOW-UP ASSESSMENT Patient presents with: Established Patient: Long COVID Patient: Yolanda Aparicio There is no height or weight on file to calculate BMI. Resting Metabolic Rate: 1570 Waist measurement: No waist measurement recorded. BP: ALLERGIES Allergen Reactions Modafinil Mental Status Change Amoxicillin-[place]* Other: See Comments extreme dizziness Bactrim [Sulfametho* GI Upset Cephalexin Unknown Ciprofloxacin Unknown Lexapro [Escitalopr* GI Upset [place] Juice Rash Sertraline Mental Status Change, Other: See Comments Trimethoprim Other: See Comments Current Outpatient Medications on File Prior to Visit Medication Sig diazePAM (VALIUM) 2 mg tablet Take 1 tablet by mouth every 8 hours as needed (vertigo) for up to 60days. metoprolol tartrate, short acting, (LOPRESSOR) 25 mg tablet Pt taking 12.5 mg in am and 25 mg at night sodium chloride 1 gram tab TAKE 1 TABLET BY MOUTH 3 TIMES A DAY *TAKE WITH FOOD* gabapentin (NEURONTIN) 100 mg capsule Take 2 capsules by mouth twice daily. (taken with 300mg capsule) hydrOXYzine HCl (ATARAX) 10 mg tablet Take 1 tablet by mouth three times daily as needed. gabapentin (NEURONTIN) 300 mg capsule 1 capsule 2x/day tiZANidine (ZANAFLEX) 4 mg tablet Take 1 tablet by mouth daily at bedtime. ondansetron orally disintegrating (ZOFRAN ODT) 4 mg disintegrating tablet Take 4 mg by mouth once daily as needed. ibuprofen (MOTRIN) 200 mg tablet Take 200 mg by mouth as needed. acetaminophen (TYLENOL) 500 mg tablet Take 500 mg by mouth as needed. No current facility-administered medications on file prior to visit. 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) Postural orthostatic tachycardia syndrome 11/01/2020 PAST SURGICAL HISTORY Procedure Laterality Date NONE Family History Problem Relation Age of Onset Hypertension Father Hyperlipidemia Father Hyperlipidemia Maternal Grandmother other (afib) Maternal Grandmother Heart Attack Paternal Grandmother Social History Tobacco Use Smoking status: Former Packs/day: 0.30 Years: 5.00 Pack years: 1.50 Types: Cigarettes Quit date: 02/13/2016 Years since quittin.3 Smokeless tobacco: Never Vaping Use Vaping Use: Never used Substance Use Topics Alcohol use: No Drug use: Never EVALUATION 06/19/2022 Dago Guzman MD Last Visit on April 2022 Provider Megan Symptoms What is the severity of your symptoms? No change / shift at time with diet change (see below). Upset that mold exposure placed in chart from 15 years prior in history. Feels this will disqualify her from workers Compensation Following the recommended food plan? Noting removal of sugar at this time. Soda lessened but no shift in how felt. What symptoms have improved: None Supplements Are you taking recommended supplements? No - due to provider recommendation Review of Systems Constitutional: Positive for fatigue and unexpected weight change. HENT: Positive for sinus pressure and sinus pain. Respiratory: Positive for shortness of breath. Cardiovascular: Positive for palpitations. Gastrointestinal: Negative for abdominal distention, constipation and diarrhea. Genitourinary: Negative for frequency. Neurological: Positive for dizziness, light-headedness, numbness and headaches. Psychiatric/Behavioral: Positive for behavioral problems, confusion and sleep disturbance. The patient is nervous/anxious. There were no vitals filed for this visit. Physical Exam Constitutional: Appearance: Normal appearance. HENT: Head: Normocephalic and atraumatic. Right Ear: Hearing and external ear normal. Left Ear: Hearing and external ear normal. Eyes: General: Lids are normal. Extraocular Movements: Extraocular movements intact. Musculoskeletal: Cervical back: No pain with movement. Neurological: Mental Status: She is alert. Psychiatric: Attention and Perception: Attention and perception normal. Mood and Affect: Mood normal. Speech: Speech normal. Behavior: Behavior normal. Thought Content: Thought content normal. Cognition and Memory: Cognition and memory normal. Judgment: Judgment normal. Component Latest Ref Rng & Units 04/20/2022 WBC 3.70 - 11.00 k/uL 10.86 RBC 3.90 - 5.20 m/uL 4.85 Hemoglobin 11.5 - 15.5 g/dL 13.3 Hematocrit 36.0 - 46.0 % 41.1 MCV 80.0 - 100.0 fL 84.7 MCH 26.0 - 34.0 pg 27.4 MCHC 30.5 - 36.0 g/dL 32.4 RDW-CV 11.5 - 15.0 % 12.9 Platelet Count 150 - 400 k/uL 321 MPV 9.0 - 12.7 fL 10.3 Neut% % 60.8 Abs Neut (ANC) 1.45 - 7.50 k/uL 6.61 Lymph% % 29.7 Abs Lymph 1.00 - 4.00 k/uL 3.22 [place]% % 7.8 Abs [place] <0.87 k/uL 0.85 Eosin% % 0.6 Abs Eosin <0.46 k/uL 0.07 Baso% % 0.6 Abs Baso <0.11 k/uL 0.06 Immature Gran % % 0.5 IMMATURE GRANS (ABS) <0.10 k/uL 0.05 NRBC /100 WBC 0.0 Absolute nRBC <0.01 k/uL <0.01 DTYPE Auto Protein, Total 6.3 - 8.0 g/dL 7.1 Albumin 3.9 - 4.9 g/dL 4.3 Calcium 8.5 - 10.2 mg/dL 9.4 Bilirubin, Total 0.2 - 1.3 mg/dL 0.4 Alkaline Phosphatase 34 - 123 U/L 67 AST 13 - 35 U/L 13 ALT 7 -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 Total 6.3 - 8.0 g/dL 7.1 Albumin 3.9 - 4.9 g/dL 4.3 Calcium 8.5 - 10.2 mg/dL 9.4 Bilirubin, Total 0.2 - 1.3 mg/dL 0.4 Alkaline Phosphatase 34 - 123 U/L 67 AST 13 - 35 U/L 13 ALT 7 - 38 U/L 9 Glucose 74 - 99 mg/dL 92 BUN 7 - 21 mg/dL 9 Creatinine 0.58 - 0.96 mg/dL 0.78 Sodium 136 - 144 mmol/L 138 Potassium 3.7 - 5.1 mmol/L 4.3 Chloride 97 - 105 mmol/L 103 CO2 22 - 30 mmol/L 23 Anion Gap 9 - 18 mmol/L 12 eGFR >=60 mL/min/1.73m 106 Iron 41 - 186 ug/dL 68 TIBC 232 - 386 ug/dL 369 Transferrin Saturation 15.0 - 57.0 % 18.4 Melanocyte Stim Hormone Alpha See Note Cortisol 4.8 - 19.5 ug/dL 15.0 ACTH 7.2 - 63.3 pg/mL 33.6 Arginine Vasopressin 0.0 - 6.9 pg/mL <0.5 Osmolality 275 - 300 mOsm/kg 290 Homocysteine, Serum <15.1 umol/L 13.8 UltraSens C-Reactive Protein <3.1 mg/L <0.3 Ferritin 14.7 - 205.1 ng/mL 46.9 Transferrin 200 - 360 mg/dL 275 TSH 0.270 - 4.200 mIU/L 1.630 Free T4 0.9 - 1.7 ng/dL 1.2 Free T3 2.3 - 4.1 pg/mL 3.5 Uric Acid 2.5 - 6.6 mg/dL 4.2 GGT 6 - 46 U/L 10 Laboratory Values Addressed: Relevant Items in Bold Nutrition Prescription Energy: Resting Metabolic Rate: 1570 Protein: 1.0g/kg Nutrients of Concern: Iron Nutrition Diagnosis: Imbalance of Nutrients (NI-5.5) related to current food and beverage choices as evidenced by review of dietary recall Status: Making progress Nutrition Diagnosis: Food and Nutrition Related Knowledge Deficit related to lack of prior education as evidenced by patient request for additional nutrition consultation. Status: New Nutrition Intervention (New and Reinforcement): Current Nutrition Goal(s): reduce diet-related inflammation suspected as symptom trigger, improve nutritional inadequacies suspected as symptom or disease contributor, and promote adequate nutritional intake to meet macro and micronutrient needs Food Plan: CORE Food Plan Regroup and focus on the basic concepts of nutrition: Eating whole foods and limiting highly processed foods. Do the best you can to minimize processed foods with added sugars and artificial sweeteners. Have color at every meal. What: Colorful veggies and fruits (one food from each color of the rainbow per day). Organic foods: the dirty dozen and clean fifteen list from the Environmental Working Group www.ewg.org Allocab/BI2 Technologies markets and Viridis Learnings are listed at www.HiWired.AntFarm (enter your zip code). Lean, free range, grass fed, organically grown meats, non-GMO plant proteins, and wild caught fish are preferred. Consume healthy fats regularly. Focus on fiber rich foods (25/35 grams per day). Fluids: Aim for your body weight in ounces: filtered water, seltzer, shakes, soups, decaf green/herbal teas, 100% raw coconut water ([place]) and raw, cold-pressed vegetable juice. No alcohol, coffee & soda (caffeine). When: Eat within an hour of rising and every 3-4 hours all within 12 hours. Always include a protein, fat and carbohydrate with breakfast, lunch and dinner. Small frequent meals but FRONT LOAD YOUR CALORIES, BY HAVING A LARGER BREAKFAST/LUNCH, SMALL DINNER. How: for proper digestion and assimilation of your nutrients you must: Enjoy your food Eat mindfully and peacefully Find support from friends and family 2. Follow the CORE food plan materials in your aXess [place] Nutrition Portal at www.SandForcef.org as a guide for selecting one new food to try weekly. 3. Guidance for whole food cookin Day Low-Carb Mediterranean Meal Plan: https://www.Hiberna.com/article/1669483/42-xkg-vij-carb- cfzxgvufaurvo-vdyj-qwyq/ 5 Ingredient Recipes -5 Ingredient Clean Eating Cookbook: https://www.Obviousidea/en/book/show/51720899-4-jpwrbxhwpi-jp iug-qabayy-oxbaoimd -Plant Based Dietitian: https://At Peak ResourcesitiTrueVault.Wally/yk-lhrwmv-wim-ovtzjl-aybd-dcrfi-43-wnqrx-emj i-wuvqp-ogmbm-wvpqytu-avle-2-wqhjiahlzke-ui-nftz/ Whole Food Recipe Blogs Chelsea and Anushka: https://AppNeta/ Love and Terence: https://www.Watchup/recipes/ 101 Cookbooks: https://www.BountyHunter.Wally/ Naturally Ludmila:https://naturallyella.com/ Seasonal My New Roots: https://www.mynewroots.org/site/recipes/ 101 Cookbooks:https://www.BountyHunter.Wally/ Other Dressings from Nutrition Stripped: https://AXADO.Wally/esldxndqnc-dqerd-mondk-dressings/ Sauces from Nutrition Stripped: https://AXADO.Wally/recipes/sauces/ Paleo Soup Recipes:https://www.wikifolio.Wally/66-ggrw-qjh-clqq-tcskm-tief-recipes/ GF/DF Nutrition Stripped: https://COMARCO/recipes/ Oh She Glows: https://ALT Bioscience/recipe-search/ Spunky Coconut: https://www.TokBox.Wally/recipe-index/ 4. Follow up in 4-6 weeks. Resources/Educational Materials Provided available in Orange[facility]M Portal Adherence Potential to Goals/Care Plan: Moderate Nutrition Monitoring & Evaluation: Meal and Snack Pattern, Nutrition Related Laboratory Values,and Subjective Symptoms Criteria: Laboratory Data, MSQ, Dietary Recall Follow up: 4 weeks Time Spent with patient: 30 minutes Consult Billing Type: Reassessment/15 minutes, 2 increment(s), 30 minutes Number of Increments: 2 (30 minutes) Referred/Supervised by: Dago Guzman MD Signed by: Michelle Gardner RD documented in this [facility]04-20-2023 Miscellaneous Notes* Telephone Encounter - Judy Gamez PSYD - 06/01/2022 1:42 PM EDT Pt would like to enroll in my next Long COVID group starting 06/08 at 10:30am for 6 sessions. Thanks! documented in this [facility]04-18-2023 Miscellaneous Notes* Telephone Encounter - Judy Gamez PSYD - 05/30/2022 10:06 AM EDT Abril - I would like to get help to set this pt up with 12 sessions every 2 weeks for a specific treatment protocol we are doing. I'd like to add on one appointment in June (any time that works for her, can use dept use) and then 10 more appointments starting mid July, ideally every 2 weeks at the same day and time. When you have time is it possible to call her to set this up? I really appreciate the help, I need to make sure she can be seen regularly for this treatment. Best, Dr. Gamez documented in this [facility]04-18-2023 History of Present illness Narrative* Judy Gamez PSYD - 05/30/2022 9:11 AM EDT GENERAL PSYCHOLOGY Session #: 13 Visit Type:The patient consented to a virtual visit and their location was confirmed. Pt identity verified: Yes Location: pt parked in her vehicle in [facility] Privacy concerns related to pt's present environment discussed: Yes Telehealth Risk Benefit Analysis A) Consistency of presenting problem with use of telehealth services: Engaging effectively in talk therapy which is appropriate to telehealth. B) Client knowledge and skills to use technology: Continues to have the knowledge and skills to participate in telehealth. SUBJECTIVE: Will have mediation for long-term disability Concerned about where this will go Notes she is stuck in a trauma-pulido of toxicity Things have gotten slightly better but there are also days where she feels really off Having nightmares about COVID, about drowning Wakes multiple times during the night [facility] told her she needs structure in her day PATIENT DATA: Generalized Anxiety Disorder Scale (ROSE MARIE-7) ROSE MARIE - 7 SCORES 05/26/2022 05/26/2022 05/26/2022 ROSE MARIE-7 Score 10 10 10 (0-4) minimal anxiety, (5-9) mild anxiety, (10-14) moderate anxiety, (15-21) severe anxiety Patient Health Questionnaire (PHQ-9) PHQ-9 05/26/2022 05/26/2022 05/26/2022 Score 9 9 9 (0-4) minimal depression, (5-9) mild depression, (10-14) moderate depression, (15-19) moderately severe depression, (20-27) severe depression PROMIS Global Health PROMIS Global Health - (T-Scores - the mean of general population = 50. Five points is a clinicallymeaningful difference.) 01/17/2022 04/12/2022 04/12/2022 Physical T-Score 37.4 34.9 34.9 Mental T-Score 28.4 25.1 25.1 OBJECTIVE: Some behavioral observations limited due to visit being conducted virtually Mental Status Exam: General/Sensorium: AO X 4 - Appearance: Appears well groomed and stated age - Demeanor: Appropriately interactive - Motor Activity: Normal - Speech: Appropriate - Mood: Anxious and Reports feeling depressed - Affect: Congruent with mood - Thought Process: Linear, logical, and goal-directed - Associations: Normal - Thought Content: Appropriate with no SI/HI/AVH - Perceptions: The patient does not appear internally stimulated - Cognition: Appears intact in regards to memory, attention/concentration, fund of knowledge and language skills - Insight: Good - Judgment: Good - ASSESSMENT: Yolanda Aparicio was actively engaged in the session and demonstrated motivation towards therapy goals. Will likely benefit from continued psychotherapy to support management of mood and anxiety. DIAGNOSIS: (F43.10) PTSD (post-traumatic stress disorder) (primary encounter diagnosis) (F42.9) Obsessive-compulsive disorder, unspecified type (U09.9) Post-acute sequelae of COVID-[address] ([facility]) TREATMENT MODALITIES: DBT PROGRESS TO DATE: Intermediate Progress: Progress Short Term Condition: Progress GOALS/OBJECTIVES/INTERVENTIONS: Validate emotional experience Reframe unhelpful thinking Support boundary-setting/assertive communication SHORT-TERM OBJECTIVE/INTERVENTION: Discussed starting CPT Approximately 50 minutes were spent with the patient doing therapy. Judy Gamez PSYD documented in this encounterCincinnati [facility]04[facility] History of Present illness Narrative* Judy Gamez PSYD - 05/26/2022 12:58 PM EDT [facility] Long COVID Support Group Virtual Group Psychotherapy Group time: 10:30am Length of Session: 75 minutes Today's visit was conducted by: ReturnHauler Video Visit. [facility] at thetime of the visit. Patient's presenting problem and technical skills were appropriate to telehealth. Session #5/6 Patients attended session 5 of a six week psychoeducational and support group intervention for psychological factors affecting management of post-acute sequelae of COVID-19. Group began with a discussed of health changes and goals related to health. Patients learned about SMART goals and participated in the [employer] Question visualization. Members set SMART goals. Specific Patient Observations: Ms. Aparicio was not an active participant in the session. She was present on camera and appeared attentive, however, did not participate in our discussion. I believe she may continue to benefit from observing group and learning from the experiences of other patients. Patient Entered Data PHQ-9 Score: 9 (05/26/2022 7:12 AM) (0-4) minimal depression, (5-9) mild depression, (10-14) moderate depression, (15-19) moderately severe depression, (20-27) severe depression ROSE MARIE-7 Total Score: 10 (05/26/2022 7:13 AM) (0-4) minimal anxiety, (5-9) mild anxiety, (10-14) moderate anxiety, (15-21) severe anxiety Mental Status Exam: General/Sensorium: AO X 4 - Appearance: Appears well groomed and stated age - Demeanor: Appropriately interactive - Motor Activity: Normal - Speech: Appropriate - Affect: Euthymic - Thought Process: Linear, logical, and goal-directed - Associations: Normal - Thought Content: Appropriate with no SI/HI/AVH - Perceptions: The patient does not appear internally stimulated - Cognition: Appears intact in regards to memory, attention/concentration, fund of knowledge and language skills - Insight: Good - Judgment: Good - Diagnosis: (U09.9) Long COVID (primary encounter diagnosis) (F42.9) Obsessive-compulsive disorder, unspecified type (F43.10) PTSD (post-traumatic stress disorder) (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 Judy Gamez PSYD documented in this encounterCincinnati [facility]04-12-2023 History of Present illness Narrative* Parish Lanier MD - 05/24/2022 10:06 AM EDT Ms. Yolanda Aparicio is a 26 year old woman here for follow up evaluation of her cognitive concerns. She is here by herself. She was last seen in 01/27/2021 for alexandre fog symptoms following COVID infection in 2019. Since then she feels she has not made much improvement in her cognition.She goes to speech therapy and psychology support and is being managed for POTS. She feels her situation has not been improved significantly by these measures. No functional decline. 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 She has limited social support as he lives alone and is seldom in touch with parents/ friends. She has mainly online support from patient groups. She has limited physical activity due to POTS symptoms. She is staying at home and is online. She takes some classes online for nursing but has no time line for graduation. She has poor sleep and wakes up multiple times with nightmares about COVID which still worries her. Imp:Cognitive changes in setting of mood, lifestyle and medical co-morbidities Counseled on tasks that improve working memory. Counseled on planning life goals and getting a social support network in place Improve physical activity and structure in daily routine Continue psychology and therapy and seek treatment for depression if needed GO!to sleep program for better sleep hygiene F/p prn Parish Lanier MD I spent 45 min on the date of service which included preparing to see the patient, face to face patient care, performing medically appropriate examination, completing clinical documentation and on counseling/educating the patient/family. documented in this encounterCincinnati [facility]04-12-2023 Nurse Note* Dyan Sanches MA - 05/24/2022 9:32 AM EDT Yolanda Aparicio is a 26 year old year old woman accompanied by: patient. Do you have any changes or new concerns you would like to address at the visit today? No new issuesor concerns at this time. Vital Signs: BP 97/65 Pulse 60 Wt 85.4 kg (188 lb 3.2 oz) LMP 09/05/2020 (Within Weeks) BMI32.30 kg/m documented in this encounterCincinnati [facility]04-10-2023 Miscellaneous Notes* Group Note - Liliane Enriquez MD - 05/22/2022 1:04 PM EDT Dizziness/Vertigo - Onset and progression: started 03/2010; unknown cause; has progressed; no exacerbation - Symptoms: initially spinning HCC with head turning to the left while sitting; then constant spinning for 3 weeks; followed by persistent sensation of wavering and swinging; constant; worse after riding car; not better when driving; worse with head motion; not positional; - Associated other conditions: bilateral ear pain sharp radiating to upper neck; happened only twice; not correlated with vertigo; no ear pressure; tinnitus LF bilateral and correlated with vertigo; no hearing loss; nausea and vomiting; no change with eyes closed; no change of vision; no fall or injury Past medication trials: Klonopin - started prior to 2018 for vertigo sx Topamax x1-2 days - felt very lightheaded Zonegran x 1 day - tingling Gabapentin - started 2018 for vertigo Valium - started 2018 for vertigo Lexapro - ? GI upset Zoloft - ? Pt states had SI, but other notes report good effect Duloxetine? Xanax - [facility], and wellness/preventive med for PASC sx. Per Dr. Lanier, [facility] (01/27/21): MoCA 23/30; Impression 25 y/o F who presents for evaluation of brain fog. Her symptoms are primarily short term memory deficits and difficulty producing words despite knowing what to say. Her main difficulty in terms of localization is in communication between the frontal lobe and her subcortical structures. This can be seen in many chronic health conditions and tends to fluctuate in severity. Do not suspect that this will be a director long term care problem but symptoms can be improved with mindfulness, light exercise (appreciate POTS related exercise restrictions, Sandro Chi and yoga may be beneficial). Substance Use History: Nicotine: former smoker for ~5 yrs, quit in 2016 Caffeine: avoids caffeine d/t aggravates POTS sx; previously drank energy drinks Alcohol: avoids d/t sx exacerbation; hx of moderate use quit 4 yrs ago Illicit Drugs: Denied Marijuana: Denied Opioids: Denied Social History: Ms. Aparicio was raised by parents. She noted father was an alcoholic while she was growing up, but has been sober past 3 yrs; noted she has not been close w/ her father but does obtain support from her mother. 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 She is currently single, no significant relationship hx. She lives by herself in an apartment. She noted lacking support, family is not understanding, feels dismissed/invalidated; especially related to post-COVID sx (her family had COVID but has not struggled in same way). Friends also not supportive. Service: Denied Legal: pursuing disability, working w/ acute dialysis registered nurse (clarified that this evaluation is not meant for disability purposes) Racial/Ethnic identification: White Spirituality/Methodist: laureano has been strong source of coping historically; however has not attended restorationism lately d/t COVID, virtual does not feel the same; does do affirmations and spiritual readings Language/communication needs: N/A documented in this encounterCincinnati [facility]04-10-2023 History of Present illness Narrative* Liliane Enriquez MD - 05/22/2022 1:00 PM EDT Images from the original note were not included. PSYC NEW - PSYCHIATRIC ASSESSMENT Patient was seen for an initial evaluation. With the patient consent, visit was performed virtually. . All information is from Patient report except when noted. This evaluation is NOT intended for forensic, disability or child custody purposes. DIAGNOSIS: POTS Generalized anxiety disorder with somatic preoccupation Long-haul COVID symptoms Relapsing vertigo syndrome PTSD GAF: 55 -60-51 Moderate symptoms or moderate difficulty in social, occupational or school functioning. PLAN: We discussed creating a care plan to facilitate consistent access with her core providers. The hopewould be to have follow-up appointments at regular, frequent intervals with her core providers. In this way Yolanda's care needs can be addressed thoroughly and appropriately and will minimize the need for mychart messages and other care delivered outside of appointments. Patient prefers to have psych medications managed by her existing providers. I am available if she decides to return for a follow-up. I am also available for consultation to her team AGE: [id number] year old MARITAL STATUS: Single (never ) OCCUPATION: Disabled (worker's comp) REFERRAL SOURCE: Psychologist/Therapist - Queta Ward CHIEF COMPLAINT: anxiety and modafinil side effects. HPI: Yolanda Aparicio is a 26 year old female with a history of long-haul COVID sx, POTS, anxiety, PTSD referred by her psychologist for evaluation and management of anxiety, possible psychotic reaction with recent medication (modafinil). Yolanda states her primary reason for this appointment is concern about a recent medication reaction. She experienced paranoia, vertigo, tremors, delusions/hallucinations following taking modafinil. This was prescribed for fatigue in March and she took for about two weeks. First few days she had a vertigo attack. She stopped taking the med initially, but then was told to keep taking it. She took it for another week and was still symptomatic in addition with arm weakness. The symptoms persisted for an additional three weeks after stopping. She still feels there is some residual delusions/hallucinations. She had a notion that there was a man pounding on her window. She would experience demonic voices talking to her. With further discussion she clarifies that the hallucinations she refers to were experienced more as a thought or notion than a sensory experience. Not physically hearing or seeing anything, but having intrusive thoughts or images. Her description of these symptoms sounds more like intrusive thoughts/imagery rather than true hallucinations. Delusions also sound more like a paranoid flavor of anxiety. In reviewing her chart there is a longstanding history of a relapsing constellation of similar symptoms including vertigo, brain fog, fatigue and anxiety. We discussedthe likelihood that the modafinil triggered a flare up of her chronic symptoms rather than created the symptoms de uriah. She is feeling somewhat anxious right now. Her appetite is okay, she goes through phases of overeating to not feeling hungry at all. Her sleep is poor. She did a sleep study that showed nothing one year ago. She tried CBT, but she still will wake up periodically throughout the night. She has chronic fatigue everyday. Yolanda admits to having a stressful life regarding her workers comp. She has been experiencing longCOVID and her POTS has been disabling for her. She has been on metoprolol for 5 months now and she takes salt tablets. She takes atarax prn for anxiety, Gabapentin, Valium, and tizanidine. She has had vertigo attacks that last for hours. It will happen when driving and she has luckily been close toher destination. She has had around 10 of these attacks since her Covid infection. She denies any triggers besides possibly Modafinil. Prior to her chronic illness she would go the gym and restorationism, but she no longer does that. She feels that she is isolated and only sees her parents every so often. She used to be very social and busy. She states people do not understand what she is going through and they are not fun to be around. It is hard for her to have empathy for other people's problems that seem so trivial compared to what she's been dealing with. She feels she is going through way more than the people around her. When asked about depression, she is unsure if she has depression. When discussing past anxiety she denies having anxiety prior to her Covid diagnosis. She feels upset about how her providers responded to her concerns about the Modafinil. There were some disgruntled SnapLayouthart messages regarding this. There have been a number of miscommunications and friction with providers, primarily via mychart. She is much more able to express herself effectively during appointments. PAST MEDICATION TRIALS: Modafinil - severe anxiety, triggered vertigo flare Zoloft - suicidal thoughts Lexapro -? (prescribed in 2008 per chart, pt does not recall) Midodrine- HTN PSYCHIATRIC HISTORY: Prior Diagnosis: PTSD, Adjustment Disorder with depressed mood, ROSE MARIE, OCD Prior Provider: No previous psychiatrist Therapist: Judy Reynaga Previous Psychiatric Hospitalization: none History of suicide attempts: Never SUBSTANCE USE HISTORY: Nicotine: None, historical use Alcohol: Historical use Marijuana: No history of use or dependence Cocaine: No history of use or dependence Opioids: No history of use or dependence Other: Denied SOCIAL HISTORY: Childhood: Declined to discuss Education: Some college Employment: Previously worked as an [employer] with [employer] case Living situation: Lives alone Children: None Legal history: Denied FAMILY PSYCHIATRIC HISTORY: Denied (declined to discuss) VITAL SIGNS: BP Temp Pulse Resp SpO2 ROS: General: +malaise HEENT: +vertigo Respiratory: +SOB Cardiovascular: +intermittent chest pain GI: Negative for nausea, vomiting, change in bowel habits : Negative for urinary frequency, urgency, pain with urination MUSCULOSKELETAL: Negative for acute back or joint pain SKIN: Negative for rash NEURO: +headache, vertigo All other systems negative. PATIENT DATA: Generalized Anxiety Disorder Scale (ROSE MARIE-7) ROSE MARIE - 7 SCORES 05/18/2022 05/18/2022 05/18/2022 ROSE MARIE-7 Score 12 12 12 (0-4) minimal anxiety, (5-9) mild anxiety, (10-14) moderate anxiety, (15-21) severe anxiety Patient Health Questionnaire (PHQ-9) PHQ-9 05/18/2022 05/18/2022 05/18/2022 Score 11 11 11 (0-4) minimal depression, (5-9) mild depression, (10-14) moderate depression, (15-19) moderately severe depression, (20-27) severe depression MENTAL STATUS EXAMINATION: Appearance: Well dressed, well groomed, long dark hair Behavior: Hostile, Defensive, and Evasive Psychomotor: No psychomotor agitation. Cognition Level of Consciousness: Awake and alert. No fluctuation in wakefulness. Orientation: Person, Place, Time and Situation Memory: Intact Attention/Concentration: Conversationally intact Fund of Knowledge: Able to demonstrate an awareness of current events. Mood: Being Irritable and Suspicious Affect: Irritable and reactive within a normal range. Speech/Language: Appropriate tone, prosody, callie, phonetics, and syntax Thought Form: Coherent and Evasive Thought Content: No delusions noted or endorsed. Perceptual disturbances: Did not appear to respond to auditory stimuli. Safety: Suicidal Ideations: No suicidal ideation, intent or plan. Homicidal Ideations: No homicidal ideation, intent or plan. Insight: Poor Judgment: Limited I have communicated my name and active licensure. The patient's identity and physical location wereverified at the time of this visit. Either the patient or their legal senior sales representative has been informed of the risks and benefits of -- and alternatives to -- treatment through a remote evaluation andconsents to proceed with the evaluation remotely. I spent a total of 120 minutes on the date of the service which included preparing to see the patient, [id number] patient care, completing clinical documentation, obtaining and/or reviewing separately obtained history, performing a medically appropriate examination, counseling and educating the pa tient/family/caregiver, ordering medications, tests, or procedures, communicating with other HCPs (not separately reported), and care coordination (not separately reported). ADD ON PSYCHOTHERAPY CODE : No By signing my name below, Verito Guaman, attest that this documentation has been prepared under the direction and in the presence of Dr. Enriquez. Electronically signed, GE Coronado III Date 05/22/2022 Time 2:17 PM Liliane Guaman, personally performed the services described in this documentation. All medical record entries made by the scribe were at my direction and in my presence. I have reviewed the chart and discharge instructions (if applicable) and agree that the record reflects my personal performance and is accurate and complete. Lilaine Enriquez MD May 22, 2022 12:16 PM documented in this encounterCincinnati [facility]04-05-2023 Miscellaneous Notes* Telephone Encounter - Jimenez Sandoval MD - 05/17/2022 4:14 PM EDT The following approved medication requests have been transmitted electronically. Requested Prescriptions Signed Prescriptions Disp Refills methylPREDNISolone (MEDROL, NICHOLAS,) 4 mg Dose-Pack 1 tablet 0 Sig: As instructed per package diazePAM (VALIUM) 2 mg tablet 30 tablet 1 Sig: Take 1 tablet by mouth every 8 hours as needed (vertigo) for up to 60 days. Jimenez Sandoval MD * Telephone Encounter - Jeannine Bailey - 05/09/2022 10:56 AM EDT Patient last seen on 05/08/22. documented in this encounterCincinnati [facility]03-29-2023 Miscellaneous Notes* Telephone Encounter - Judy Gamez PSYD - 05/10/2022 10:05 AM EDT Pt needs to cancel her group appointment with me tmr. She does not need to cancel any others. Thanks! documented in this [facility]03-27-2023 History of Present illness Narrative* Jimenez Sandoval MD - 05/08/2022 3:00 PM EDT Virtual Visit Last seen: 04/05/22 I have communicated my name and active licensure. The patient's identity and physical location wereverified at the time of this visit. Either the patient or their legal senior sales representative has been informed of the risks and benefits of -- and alternatives to -- treatment through a remote evaluation andconsents to proceed with the evaluation remotely. Overall status: worse modafinil (x 1 week and a couple of days / d/c on 04/24/22) Delusions / hallucinations since thing, sweating, paranoia Main symptoms: Gabapentin 500mg, 2x/day Tolerates this Not sure what it's going brain fog / forgetfulness - no change overall Constant w/ fluctuation SOB - on/off, hours, on a daily basis - no change More so with activity though can happen at rest Heart racing - no change On/off A few seconds to a few minutes to hours On a daily basis Chest pain: Midsternal, heavy sensation, on/off, up to hours, on a daily basis - no change Dizziness: Vertigo 2-3 weeks ago - while driving - felt hot / vomiting / unable to walk once she got home. Lasted many hours. general dizziness - more intense / more frequent since taking the modafinil - longer / more frequent On/off Can be up to hours More frequent throughout the dayh (before this - 50% of the day, now 75%) Lightheadedness - no change On/off No more than an hour 3x/week? Headache: Has not been having them Neck pain: posterior - worse since the increase in dizziness Neck PT / VR: Energy: low Sleep: not good VV f/u R [place] 05/02/22 - POTS Dx: Ongoing issues with POTS and long COVID Apparent new symptoms since being on modafinil (was on this less than two weeks) Plan: Await response from Jaskaran Guzman regarding side effects from modafinil Consider neck massage Consider further current cervical / vestibular PTand adding thoracic PT with David Roche - awaiting [facility] appeal Patient in agreement with plan cc: Misha Sy DO* (to sec*) Fazal Huddleston DO Shannon, Kyle, CNP Total Time: 20 min Virtual Visit performed using: Zoom Patient was accompanied by: Self Patient verbally consented to this electronic visit Patient-Entered Questionnaire Scores HIT-6 04/02/2018 KP HIT-6 58 Dizziness Handicap Scores 05/06/2020 04/19/2021 08/29/2021 Emotional Score - - - Emotional Score 14 24 24 Physical Score - - - Physical Score 8 18 20 Functional Score - - - Functional Score 16 22 22 Total Score - - - Total Score 38 64 66 PHQ-9 04/06/2022 04/06/2022 04/13/2022 Score 10 10 12 documented in this encounterCincinnati [facility]03-27-2023 Miscellaneous Notes* Telephone Encounter - Haleigh Lugo RN - 05/08/2022 1:25 PM EDT RW, Pt was only on modafinil x 1 week. Pt has been off modafinil x 2 weeks per [place] instruction. States that she is withdrawing and states that [place] did not alert her that modafinil works like or has the same effects as antipsychotics. States that she has mentioned in the past that she does not dev on any psych meds and has expressed her mental health conditions. When coming off of the modafinil, pt states that it started with tremors in head along with greaternausea than usual. Also started getting extreme hot flashes and states that she was running a fever. Has had hallucinations and delusions in the past and states that those came back even stronger when she stopped modafinil, she also became paranoid. States that she felt like she could jump or crawl out of her skin . States she has dealt with suicidal thoughts. Feels that she could break out crying at any moment then experiencing anger and irritability on the other end. States that she is dissociating at times. States that she is very angry with KS for not explaining that modafinil works along the same lines as antipsychotics and lack of transparency. States that KS only explained suppressed appetite. However, when speaking with KS he states that he mentioned tachycardia and increased POTS symptoms in which the patient agreed and he ordered. States that given her background, she is more susceptible to worsened SE's. States that she is surprised that the modafinil is giving her bad w/d symptoms after only being on the medication x 1 week. States that she did not experiencing any of this prior to modafinil. Understands that KS cannot predict what will happen when trying a new medication, but is terrified that KS has messed her up . States that she has lost trust in KS and that she is scared to try anything else. States that she is traumatized by KS. Haleigh Lugo RN, BSN, BA [facility]* Encounter Date Diagnosis Assessment Notes Treatment Notes Treatment Clinical Notes Apr, Urinary frequency (ICD-10 - R35. 0) Will wait for treatment until culture results return as pt would prefer this. Apr,Fever (ICD-10 - R50.9) [employer] Other [id number] Miscellaneous Notes* Telephone Encounter - Esther Henson Pss - 05/03/2022 9:58 AM EDT Form signed by provider and faxed to number provided on form Form also scanned into chart from Onbase * Telephone Encounter - Esther Henson Pss - 05/03/2022 9:56 AM EDT Type of form: C9 denial form Form received via: Fax When form is completed, fax form to fax number provided. Form has been forwarded to: Provider's mailbox. Provider name: Dr. Lori Henson Pss documented in this encounterC[facility] History of Present illness Narrative* [facility] 9[facility]38 AM EDT Health Coaching Follow-up Current Focus:Movement, Brain Clarity Nutrition: PT wants to take supplements, but they are expensive. Social Support: Not discussed Stress: PT has fear of COVID. 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 PT feels over stimulated easily. Stress with employer not supporting pt healing process. Employer is denying healing processes. Limed financial resources- cant pay for supplements nor physical therapy causing stress. Physical Activity: PT has improved walking mile. PT has transitioned her exercise abilities. PT is in PT. HR has improved. Exercise recovery time is reduced. Feels limited due to tachycardia HR. Chest pains improved. Light headed , and dizzy with movement. Seeking weekly exercise plan to move at home. Mindset: PT is not convinced that holistic care will help her POTS. She feels defeated with health scares. PT has to see progress to continue consistency with wellness practices. 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 I handle stress well. I am mentally strong. I am going to restorationism. I am in the gym using machines. SMART Goal(s)/Current Plan: Schedule physical therapy-job is not willing to pay? Ask [employer] for supplement alternative- Lifestyle change or cheaper site Next hc session movement full body-DB Recommended Follow-up: monthly Time Spent with patient: 30 minutes Consult Billing Type: 1 increment (30 minutes) Number of Increments: 1 (30 minutes) Signed by: [facility] documented in this encounterC[facility] History of Present illness Narrative* Alvin Huddleston, DO - 05/02/2022 4:09 PM EDT Yolanda Aparicio is a 26 year old female. SHARED MEDICAL APPOINTMENTS: Patient is at home I spent a total of 60 minutes on the date of the service which included [id number] patient care, completing clinical documentation, communicating results to the patient/family/caregiver, and care coordination (not separately reported). Treat POTS as you are doing . You would be more severe if not doing what you are doing Magnesium stearate or gylcinate 500-1000 mg daily in am or pm (any brand) calms adrenaline NAD /nicotinamide adenine dinucleotide (NAD) 10 mg daily (over time from magnesium , 4-6 weeks later , helps the nervous systems and energy center) Vitamin d 2000 international unit(s) Daily B12 1000 ucg daily Co q10 100 mg daily Add each one every 2 weeks daily Cheap reasonable branch To help in your diagnosis and can watch over and over again (even share or view with your support people) Search on the internet , FLAQUITO ORTHOSTATIC EXERCISE ( It is on YOUTUBE) Go to [employer] and there is about one hour of 14 short videos streamed together that helps to teachand explain about POTS called LEARNING ABOUT POTS. LEARNING ABOUT POTS on FLAQUITO ORTHOSTATIC EXERCISES Please go to FLAQUITO ORTHOSTATIC EXERCISE on YOUNouscoUBE It is 100 minutes that can help improve your life as did others. For others in your life who support you share the playlist on FLAQUITO ORTHOSTATIC EXERCISE on [employer], I love someone with POTS and want to learn These videos will help to educate and familiarize as compliments in the road to recovery and help with POTS We recommend to watch repeatedly 1-3 times at least for Weeks 1-2: Also you can have daily educational with Dr. Huddleston on [employer] : POTS FLAQUITO There are other videos to help with exercise that we can guide as well for dizziness, neck pain, pelvic floor, breathing work, self care, and vagal tone to explore If there is an urgent issue seek urgent care or medical level ER care. If needed review or see your PCP For POTS patients recommend to use the POTS manual, flaquito orthostatic exercise video on youNeurodynube for educational, utilize your chronic self care tools, attend more share medical appointments are recommended POTS Manual: Read the POTS manual online. This will help you understand your POTS diagnosis, work with your medical team, and includes detailed instructions and tips for improved daily living with POTS. [email or web address] Reminder that with health conditions that most medications and other care treatments including rehabilitation /exercise programs need 3-4 months to work . With chronic health conditions may need evenlonger to work if one has been ill and suffered. TIP: We are recommending also for patients in this time of ramped up use of social media to be mindful to check content for accuracy. Also when one post especially think about before posting since can be forever and can have lasting impact on others with hurtful, shaming, hazing, and harm. Often social media posts can be traced back to sender easily in time stamped and content. Sterile Inflammation: The nervous system can create its own inflammatory response. This is not autoimmune, but just inflammation. This response of the nervous system can lead to neuron excitement that is sustained called neuro excitatory and with secondary inflammation. This is how fibromyalgia and migraines behave as well POTS. Some first treatments with anti inflammatory may help these conditions may help, but the core work is approaches of neurological of treating of like a circuit of re wiring via neurological medications, wellness, education work for insights, health psychology, biofeedback, and this work creates new circuits to stop this reaction BENNIE can be false + in women especially in chronic health disease reviewed Over activation of neuro excitatory with growing research can lead to more inflammation and growingdata of muscle pain, joint pain, and even some data of like in fibromyalgia small fiber neuropathy Data of COVID with sustained response reviewed and this ongoing above reviewed and how is similar Pick one activity that is even fun and pleasure to show your brain and body some mormon and solace/peace. Do it daily 5-10 minutes a day at least. Does not have to be even medical. GUT The gut is the second brain Most of serotonin that helps mood, stamina, and pain is in gut. Gut does not work will feels worse in these aspects Adrenaline stops the ability to rest and digest and thus more pain, bloating, IBS, and less good nutrients. More skin isues (acne, eczema, rosacea, dry skin, hair loss,dry hair), leaky gut, normal bacteria leaves, and more digestion challenges /food intolerance Swallow issues /gag/ voice changes since is vagal and adrenaline will make this vagal not work . Gargling, singing, brushing tongue exercises help correct. If can gargle with salt water helps also Most of immune system is in the gut and can lead to much food challenges. Even can be challenge to know what is mast cell and not. Often getting gut right with probiotics, control of POTS, and diet changes to help gut healing helps reduce issue of the gut being inflamed and what may be or could be mast cell . Sugar is very irritating to the gut can cause laxative effect. Also ties into why we may see that dairy, wheat, white food, gluten free is better, and less refined foods are better for pots. The sugar and the altered gut state can lead to poor absorption that lead to sugar spikes, reactive hypoglycemia, and sugar dumps. Adrenaline also leads to insulin use and sugar changes of up and then drop. Sugar spikes and drop leads to fatigue, anxiety, depressive feeling, headache, skin changes, weight up and down, and more. Why being sugar reduced is pepe and helps in POTS. FODMAP diet. Hydration drinks with less sugar and also avoid artificial sweeteners (the artificial sweeteners causes confusion to the body and spike insulin still sense there is sugar). Diets best with small meals, hydration , water, proteins, good fats (ghee butter, olive oils,) veggies, and complex carbs through the day. Have to eat and train the gut as a muscle thus small meals in the day. Diet including polyphenol rich foods (colorful natural ), quercetin foods, and add tumeric help anti oxidants Supplements for helping neural excitable and mitochondrial healing Add each one every few weeks /take in am with good food Co Enzyme Q10 100 mg daily for 4 weeks then go 200 mg daily Alpha lipoic acid 600 mg daily NAD /nicotinamide adenine dinucleotide (NAD) 10 mg daily MAG stearate or glycinate 400 mg daily B12 1000 ucg daily Gut health : Less sugar to no white sugar [place] oils 1 gram daily Probiotics any type and add prebiotic foods Avoid processed foods, too much simple carbs, and too much dairy Any type of brand is good and can over time customize more as you want and learn, but start somewhere Again like any supplement can start small doses if want to adjust More tips: Hydrate with just water about 64 ounces in the day Eliminate sugar as much as can including natura types from the diet Eliminate simple sugars (refined carbs ) and reduce dairy. Small and frequent meals with proteins, complex carbs, veggies, and if use fats good oils (olive oil, avocado, walnut) . Less to no fried food Work on sleep schedule: Go to be same time and up same time with elimination of naps. Initially will be hard. Will have to get up the set time even do not rest well till the schedule sets into of this pattern of sleep pattern formation of the body be settled and wired in. Take small steps with diet and know there will be set backs along the way If have not done our exercise for POTS in the exercise SMA then join us by my chart. If can do any simple exercise 10-15 minutes per day can use our flaquito orthostatic exercise utilizing the sandro chi,qi qong, and chair exercise. Do not have expensive brands or certain brands of supplements or foods Be patient. You have been ill for a long time. It can take 6 months for full benefit to see improvement of brain fog, gut health, stamina, and if has mast cell issues We always start with a discussion of POTS physiology. When you stand two water bottles of blood drop. To compensate, the body speeds up the heart in an effort to get blood to your brain so you don t faint. This is adrenaline and while it may feel terrible it is an autonomic protective mechanism. The brain controls the Autonomic Nervous System. The Sympathetic Nervous System is responsible for stress and survival and is why you feel the symptoms of adrenaline which include but are not limitedto: racing heart rate, chest pain, sweating, neck pain, fainting, near fainting, nausea diarrhea, bloating, frequent urination, skin tingling, ears ringing, heightened senses, inability to sleep, cannot think, brain fog, jerking limbs, muscle tightness and the list goes on... The Parasympathetic Nervous System is responsible for growth and repair, rest and digest. Some of you may notice a drop inheart rate after a sympathetic surge. The polyvagal symptoms may take over: the heart rate and blood pressure drop, you may feel cold, feel the sensation of rubber legs, defecate, urinate etc. This explains the cycle of Fight, Flight, and Freeze. Once your body gives way to adrenaline, you may become listless and exhausted feeling the rag doll effect. GI issues remain one of the constant and most common complaints of those with orthostatic issues. Many suffer with bloating, pain, constipation, and diarrhea. Adrenaline is a huge factor and has an impact on digestion. One cannot rest and digest if in adrenaline mode as the body is in survival mode--focused on other organs and self-preservation. A body in survival does not digest efficiently. The stomach is the second brain. After the brain, most nerve bundles and neurons are located in thegut and can work independent of the brain. Diseases may show in the gut as the first path of violation before presenting as a nervous system disorder. We all know the feeling of butterflies or stomach discomfort. Stomach discomfort can also present in times of acute or chronic stress. The brain gut connection is so strong we may feel nausea, may vomit, and may be unable to eat. 70% of the immune system is located in the gut. The entire GI system is filled with good and bad bacteria. Healthy and unhealthy bacteria. The gut being the second brain and is a good indicator of how well someone is feeling. If GI health is poor,the patient generally feels overall unwell. Adrenaline creates a hostile zone in the gut: bloating, IBS, pain, low serotonin can affect ones mood and cause sadness, pain, malaise depression, fatigue. Allergies food intolerance, mast cell are aresult of immune dysfunction. Leaky gut gets rid of good bacteria and when ones digestion is off they can experience hair loss, weight changes (up or down) acne, dry skin, dry mouth, eczema, and rosacea. 20% of POTS patients have delayed motility and 20% having rapid motility. Eat the best, leave the rest: Small meals, simple proteins Chicken/fish, Hydrate with water, avoid artificial chemicals and sweeteners, Probiotics for balancing and gut healing, supplement with oregano, dameon, and turmeric can also help. These changes take time to see a result. Starting with small doses are always best practice to see how one does when adding a new supplement. Sugar is public enemy number one: It is in a lot of food so check nutrition labels. There are limited amounts in natural foods. Sugaris a gut irritant/ laxative. Known irritants are dairy, wheat, gluten, refined carbs, and white foods. Sugar gives a jolt of energy and then drops it. Sugar can increase fatigue, mood, anxiety, panic attacks, depression, migraines, IBS. Sugar spikes insulin then drops it Adrenaline spikes insulin the drops glucose Gut disorders cause inconsistent glucose absorption The three above compete so it s best to reduce sugar intake found in natural foods such as veggies,complex carbs (brown rice for example) proteins, and good oils. Mast Cell and Food Allergen--start with correcting the gut and see if there is an improvement. We touched on swallowing issues. Swallowing us a vagal response. Some people may be unable to swallow pills, the feel like they are being strangled, lost voice, raspy, dryness, GERD, reflux. Too muchadrenaline. Gargling, salt rinse, tongue brushing, singing and chanting can also help. Treating POTS is essential as things in the body will start to balance. Hydrate with 64 ounces of water per day. Keep it low sugar and try to avoid artificial colors and artificial sweeteners. Moving the body helps the gut and is essential in POTS care. 5-15 minutes per day of wellness can show your brain and body that it can be an adrenaline free zone. Additional supplements to consider: Magnesium Stearate or Glycinate Oregano Pills [place] Oils Prebiotics and Probiotics COQ10 MG Daily Thank you for joining us and we look forward to seeing you in a future SMA. Let us start with discussing POTS physiology. When you stand two water bottles of blood drop. To compensate, the body speeds up the heart in an effort to get blood to your brain so you don't faint. This is adrenaline and while it may feel terrible it is an autonomic protective mechanism. The brain controls the Autonomic Nervous System. The Sympathetic Nervous System is responsible for stress and survival. The Parasympathetic Nervous System is responsible for growth and repair. Finding the balance between the Sympathetic and Parasympathetic for those of us living with POTS presents a challenge. The Sympathetic cardiac nerves increase and force of contraction, whereas the Vagus nerve (parasympathetic) decreases heart rate. The Baroreceptor sends signals to the brain. The brain is like a smartphone and creates memories from the experiences as is the case with adrenaline. The brain is tied into speeding up the heartrate and adrenaline. You may notice adrenaline surges coming at around the same time each day. That is the memory-make adrenaline and then do it again and again on a loop. A pattern of symptoms form such as pain, racing heart rate, headaches, and tingling. After this heightened form of adrenaline takes place, the polyvagal symptoms may take over: the heart rate and blood pressure drop, you may feel cold, feel the sensation of rubber legs, defecate, urinate etc. This explains the cycle of Fight, Flight, and Freeze. Once your body gives way to adrenaline, you may become listless and exhausted feeling the rag doll effect. This can last for hour to days. An effective way to lower heart rate is called the COLD EFFECT DIVE REFLEX: If you hold your breathand put your face in cold water, your heart will immediately slow down by 25%. Using a cold washcloth in a plastic sandwich bag can also help lower heart rate. Tongue on roof of soft palate slows heart rate: To perform, curl tongue back to touch the soft palate in the mouth. Your mouth may remain open a tad, make an R sound. Doing this numerous times in a day will reduce adrenaline symptoms such as lowering HR, decreased sweating, and decrease brain fog as well as jitteriness. Another effectiveexercise is performing the Valsalva maneuver to prevent palpitations. To do this 1. Pinch your nose, 2. Close your mouth, 3. Then try to breathe out. To explain at a more scientific and evolutionary level would be to talk about the Mammalian Diving Reflex: A Marine mammals' physiological response when stimulated by cold water submersion is the shunting blood from their peripheral tissues to their body's core. The increased blood volume in the core then stimulates a vagal response which produces profound bradycardia. This shunting of blood fromnon-essential organs and the lowered oxygen demand allows the diving mammal to remain underwater for a prolonged period. We also discussed nose breathing as it is much more effective than mouth breathing when it comes tocalming heart rate. Three breaths in, hold for 8, three breaths out. Over time with proper care, the heart rate is controlled by exercise and medication, but remember it is possible to still feel POTS symptoms with normal vitals. The idea is through wellness modalities to create new memories and files. By realizing this is occurring, being patient with oneself and mi ndfulness, relaxation, and decluttering rework the circuits for more positive experiences The brain does get involved with POTS. The baroreceptor does have localization sites into the brainstem. This is why we can see in head injury cause POTS. Also the brain getting activate in adrenergic state of flight or fight or freeze can cause more than just typical body or heart rate symptoms, but also the brain symptoms of jittery, cannot think, confused at times, restless, headaches, dizzy, jerky limbs, tight muscles, pain, ,less hope, and less creative. The brain as we said is in downstairs mode of the lower center operating and more of the amygdala . This can become more automatic and the default response. The brain is a circuit and remembers this is what it is to do. Recognizing this as occurring is pepe and next steps is to show your brain is okay to learn new ways of circuits is pepe. New ways are via wellness, exercise, medication at times, and even health psychology. We have health psychology here to show nervous system new ways to be again, relaxation tools. Biofeedback, and tips for living with a disease. We can offer this health psychology by sending a [employer] message to us . POTS CHAT--BRAIN MEMORIES-- Let us start with discussing POTS physiology. When you stand two water bottles of blood drop. To compensate, the body speeds up the heart in an effort to get blood to your brain so you don t faint. This is adrenaline and while it may feel terrible it is an autonomic protective mechanism. While manypeople think most POTS patients faint, in reality only about 15% of those with POTS do. POTS symptoms include Tachycardia, lightheadness, brain fog, body pain, GI issues, numbness and tingling limbs,and these are just to name a few--we all know the symptoms can run the gamut. Dizziness is also a chief complaint and can be described in a multitude of ways. Some of us feel like we re rocking on a boat, many have trouble driving, and functioning through the day is also a major challenge when one has vestibular issues. We always start with a discussion of POTS physiology. When you stand two water bottles of blood drop. To compensate, the body speeds up the heart in an effort to get blood to your brain so you don t faint. This is adrenaline and while it may feel terrible it is an autonomic protective mechanism. The brain controls the Autonomic Nervous System. The Sympathetic Nervous System is responsible for stress and survival and is why you feel the symptoms of adrenaline which include but are not limitedto: racing heart rate, chest pain, sweating, neck pain, fainting, near fainting, nausea diarrhea, bloating, frequent urination, skin tingling, ears ringing, heightened senses, inability to sleep, cannot think, brain fog, jerking limbs, muscle tightness and the list goes on... The Parasympathetic Nervous System is responsible for growth and repair, rest and digest. Some of you may notice a drop inheart rate after a sympathetic surge. The polyvagal symptoms may take over: the heart rate and blood pressure drop, you may feel cold, feel the sensation of rubber legs, defecate, urinate etc. This explains the cycle of Fight, Flight, and Freeze. Once your body gives way to adrenaline, you may become listless and exhausted feeling the rag doll effect. Thank you again. Your attendance of the Shared Medical Appointment and involvement in the POTS community is pepe to your success and those who come behind you. Please look at POTS body movement techniques at [employer] orthostatic exercises - [employer], and please follow our Instagram page [email or web address]. Please take advantage of all of these tools available to you. We are committed to your journey toward restored wellness. We look forward to seeing you again in future SMA s. To schedule the ZOOM POTS SMA please call during Sunday-Sunday 9 am - 4 pm , Please be patient with the phone line as we are in midst of reopening during the pandemic phase We are honored and glad to have you part of the SMA for POTS Welcome to ZOOM POTS SMA (SHARED MEDICAL APPOINTMENTS) We have learned at the [facility] and especially in my work and our department that POTS thatthere is so much to learn to live well with this condition. So much of the emphasis needs to be on life tips of education, body awareness, community, exercise , daily life tips, and the psychology of living well with POTS. 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 We have even published the benefit of the SMA for POTS. We used to do the SMA in person, but during the pandemic we are starting to do them via ZOOM. For years I have been wanting to do the SMA as a virtual format like ZOOM. The ZOOM SMA is a safe space to be supported. We do request to allow your face to be seen and courtesy language. The session is about 90 minutes long. We will have a topic, questions, and answers. The sessions are not recorded. POTS Manual: Read the POTS manual online. This will help you understand your POTS diagnosis, work with your medical team, and includes detailed instructions and tips for improved daily living with POTS. [email or web address] YouTube: [email or web address] orthostatic exercise Instagram: POTS FLAQUITO Orthostatic Your body has a network of blood vessels made up of arteries, veins, and capillaries. The heart pumps blood into the arteries, which carry the blood throughout the body. Blood pressure is the pressure or force of blood pushing against the schuster of the arteries. Blood pressure is written as two numbers; for example, 120 over 80 millimeters of mercury. The first number is the systolic pressure. This is the pressure in the arteries when the heart beats and fills them with blood. The second number is the diastolic pressure. This is the pressure in the arteries when the heart rests between beats. Orthostatic hypotension is a condition in which your blood pressure falls significantly when you stand up quickly. (Hypotension is low blood pressure.) What are the symptoms of orthostatic The main symptom of may even faint. Other symptoms include: Blurred vision Nausea Disorientation or confusion Feeling weak Fatigue Falling Chest pain Neck pain Cognitive disorder Challenge in breathing Base of neck pain and head pressure Breathing challenge when standing up Legs become weak/ walking challenge/rubbery legs Rebound or surge in blood pressure spikes especially when laying down These symptoms usually clear up when you sit or lie down for a few minutes. THIS NOTE IS FOR AT FIRST FOR MY DOCUMENTATION TO PROVIDE CARE, HELP INSURANCE COMPANY AND COLLEAGUES TO HAVE NEUROLOGICAL CONTEXT OF MY , AND FOR MY PERSONAL RECORDING TO FACILITATE FUTURE CARE BY HAVING A WRITTEN DOCUMENT MEMORY OF OUR CONSULT TOGETHER . THANK YOU FOR UNDERSTANDING THIS OFFICE NOTE IS A PHYSICIAN BASED DOCUMENT FOR COMMUNICATION AND CARE. 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 (ProTenders) Take 1 teaspoonful (5ml) directly by mouth 1 to 3 times daily. Hold in mouth 30-60 seconds and swallow. SPM Active (Metagenics) Take 2 softgels daily as directed. metoprolol tartrate, short acting, (LOPRESSOR) 25 mg tablet Pt taking 12.5 mg in am and 25 mg at night modafinil (PROVIGIL) 100 mg tablet Take 1 tablet by mouth once daily for 30 days. sodium chloride 1 gram tab TAKE 1 TABLET BY MOUTH 3 TIMES A DAY *TAKE WITH FOOD* gabapentin (NEURONTIN) 100 mg capsule Take 2 capsules by mouth twice daily. (taken with 300mg capsule) hydrOXYzine HCl (ATARAX) 10 mg tablet Take 1 tablet by mouth three times daily as needed. gabapentin (NEURONTIN) 300 mg capsule 1 capsule 2x/day tiZANidine (ZANAFLEX) 4 mg tablet Take 1 tablet by mouth daily at bedtime. ondansetron orally disintegrating (ZOFRAN ODT) 4 mg disintegrating tablet Take 4 mg by mouth once daily as needed. ibuprofen (MOTRIN) 200 mg tablet Take 200 mg by mouth as needed. acetaminophen (TYLENOL) 500 mg tablet Take 500 mg by mouth as needed. No current facility-administered medications on file prior to visit. 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 If need more salt in water some may add a pinch of water to the water or even Himalayan salt if can tolerate the taste. Electrolyte beverages be mindful of sugar content, dyes, and artificial sugars since can cause bloating, diarrhea, brain fog, headaches, and allergies. Low sugar to no sugar and dyes drinks with of course no caffeine is a goal. Salt loading if causes bloating just do in diet with foods. Diet: people notice sugar, dairy, and gluten/ wheat bother so a diet with less to reduce of the sugar, dairy, to processed carbs help best. With diet proteins (chicken, fish )and good fats (olive oil, avocado oil ) with complex carbs are ideal (veggies, berries, quinoa, brown rice) Sleep : bed same time and up same time; Avoid naps. Eventually though rough will get on this schedule even though feels a challenge Wellness: find something in the day to keep mind body spirit going that helps keep the mind and show the mind that is not in always aware of adrenaline state (journaling, knitting, puzzles, prayer, meditation, breathing, etc . Show the mind and body it can be free of adrenaline fight or flight state Move the body to keep the blood flowing and muscle strong. Can start even with flaquito orthostatic chair exercise or sandro chi /qi qong Probiotics help gut health since most have IBS issues (any brand to get started is a good start) Breathing work: Inspiration heart rate increases with (sympathetic response) based on blood going to lungs and need compensate to get blood shuffle and with expiration heart rate slows down (parasympathetic) . Exercise of amplifying of parasympathetic is to breath response. Take slow breathe inspiration over 3 seconds and then breathes over 5 seconds out with expiration (do exercise via nostril breathing) Alvin Huddleston D.O ELECTRONICALLY SIGNED May 02, 2022 Adult Neurology/ Board Certified Director of Autonomic Center Department of Neuro Muscular of the Neurological Stickney Candy Attendant for Neurology Clerkships Clinical Baby Counselor of Neurology Physician Advisor for the [facility] Neurology Speech Correction Assistant of Mistreatment and Neglect [facility] Faculty Appointment [facility] Faculty Appointment [facility]ica Professor [employer] [facility] / TAX ID: [id number] [address]/ [phone] [place] [address] / consult requested for an opinion regarding the evaluation and treatment of POTS My final impression and recommendations will be communicated back to the requesting physician by way of the shared medical record or letter via US [id number]/ Welcome There are videos /playlist/podcast to viewed and helped for exercises and wellness for POTS and Orthostatics Instructions: . HELP WITH MEDICAL PROVIDERS IN LOCAL CARE NOT PART OF THE [facility] To help be successful in care locally with the limits of virtual, my chart , phone calls, and limited in person appointments. This tips sheet helps patients and medical providers. This tips are for guidance and general themes. We do not want them to be customized into individualmy chart message questioning and repeated messages Dear Colleague, This is a tip sheet collaboration to help along in our shared work with the orthostatic to give context and approaches we do with orthostatic patients in our care in the Autonomic Department and you can also bridge into your practice. Thank you for the collaborative work Doctor Guidance for Autonomic Dysfunction SIMPLE FYI ON ORTHOSTATIC MEDICATIONS 1. Florinef: Dosing 0.1 mg at once or twice per day. May need to watch for hypokalemia 2. Midodrine: 2.5 mg daily to 20 mg tid. Have to watch for rebound HTN. 3. Pyridostigmine (60 -240 mg) has helped autonomic symptoms via cholinergic stimulations without raising the BP. 4. POTS patients to control adrenergic symptoms may need beta blockers, calcium channel blockers, and ivabradine. MEDICATIONS OF ORTHOSTATICS, REVIEW OF MEDICATIONS AND SUPPLEMENTS AND BP CHECKS 1. If your clinical discretion is prompted you can hold the medication for the day or longer, but remind the patient and the support person to be careful worsening of syncope and falls. 2. Can if resuming medications can go back and 02/15 to / dose 3. SBP > 170 or DBP > 95 over consistent readings is a concern 4. For BP readings we do recommend the patient or support person to check the BP and pulse about three times sitting in the am before coming to the appointment 5. REVIEW ALL MEDICATIONS AND SUPPLEMENTS IN EACH VIIST THAT CAN BE CONTRIBUTORY TO ORTHOSTATICS. SUCH MEDICATIONS ARE ANTI HYPERTENSIVES, ANTI CHOLINERGICS, ANTI PSYCHOTICS, AND MANY BLADDER TREATING MEDICATIONS. SOME POTS PATIENTS WILL NEED BETA BLOCKERS AND CALCIUM CHANNEL BLOCKERS TO CONTROL THE ADRENERGIC VITALS AND SYMPTOMS. ROUTINE LABS: We recommend to use your general medical discretion as any patient to check labs. 1. On Florinef to check potassium 2. Some of the POTS patients are more prone to hypokalemia and may be worthwhile and no interval oftime needed to check potassium. 3. B12 is associated with orthostatic disorder 4. If SICCA is a concern an BENNIE, anti tipton, and anti rho may be helpful 5. If Mast Cell Disease comes up to check an tryptase (concern is > 20 and will need referral toAllergy/Immunology) 6. Thyroid Function Test 7. CBC and CMP annually with any medications of concern EXERCISE: AND REHAB CARE Exercise does help orthostatic patients greatly. Though it seems to be miserable and not feasible for this condition, it does help control symptoms and often improve them. 1. POTS patients bene?t with cardiac rehab. There is repeated data of the cardiac rehab model for POTS to improve and reduce symptoms. At the Clinic the cardiac rehab is a one-time visit and the patient is given the template to do independently. Locally, the cardiac rehab division may help in routine visits. Also utilize free information. Internet search and print the pots manual on the [facility] website POTS Manual: Read the POTS manual online. This will help you understand your POTS diagnosis, work with your medical team, and includes detailed instructions and tips for improved daily living with POTS. [email or web address] POTS [facility] CARDIAC REHAB PROGRAM for patients. 2. Seated chair yoga and if patient can tolerate, sandro chi for balance helps. Also this work helps with inspiration and expiration to help heart rate variability. 3. Seated recumbent bike and even a foot peddle bike at home depending on the level of disability of the patient can help and should be encouraged. 4. Counting steps program with graduating accumulation of steps in the day should be encouraged. A walking program even if the patient just takes for example 50 steps every hour during wakefulness should be encouraged and over time evolve to more steps per interval. 5. PT locally for more muscle strength and maintain gait/balance. 6. Some due to neck pain and the coat changer fixer of neck muscle orthostatic hypo perfusion will developdizziness and vertigo. Vestibular rehab for cervical vertigo may be needed. 7. Gait dysfunction can be for many reasons the underlying neurological diagnosis and inclusive of the impact of deconditioning. There is an orthostatic gait disorder of the elderly where syncope hasto be considered in sudden unexplained falls. SALT LOADIN. The loading of salt can be 3-5 grams per day if it is permitted. 2. Some will do salt tablets that are purchased over the counter. Take with food since can cause nausea. 3. Encourage patients to add salt to nutrient rich food or consume salty foods. (Avoid default foods such as potato chips that are calorie rich but nutrient poor.) 4. Veggie, Chicken, and Beef Broths are good ways for hydration and salt. 5. Pickles and olives are salty snacks. 6. Salt and water loading the patient may note more bloating and increased BMI. More abdominal and pelvic girth can occur. HYDRATION: This matters greatly for orthostatic patients 1. Maintaining 64 -84 ounces per day if allowed with other health issues per day is pepe. 2. Challenges are older persons who will not want to drink as much to avoid night time and frequenturination. We encourage early am hydration. 3. Water helps and is free. Tap water is ?ne. 4. Patients can purchase electrolyte solutions. Again be mindful of cost and if also cause GI symptoms of nausea, bloating, and diarrhea (see under GI health step 7.) 5. Watch if a concern for hyponatremia by ua and bmp. LEG SWELLING: Can occur from the blood pooling from the orthostatic issues. The legs may even turn blue, red, and pale. Some may have even livedo reticularis. 1. Treating the orthostatic disorder will help. 2. Compression stockings knee high, thigh high, and even panty hose can help. 3. Having the patient elevate the legs up above the heart repeatedly during the day will help. 4. If possible, repeatedly do the legs on the wall yoga maneuver. 5. Often legs swell from inactivity. Orthostatic exercise can help greatly. SLEEP: Sleep can be a challenge due to aspects of typical chronic health issues of inconsistent sleep schedule, inactivity, medication effects and even mental health aspects of chronic disease (worriment, rumination of the future, uncertainty). 1. Having the patient maintain same sleep schedule with bed at the same time and awakening the sametime daily is pepe. Try to avoid naps. Keeping the room in the ideal temperature control helps. Keeptechnology out of the room such as tablets, cellphones, TV, and laptops with the screen light that can maintain wakefulness. If patient cannot sleep, have them get up out of bed for 30 minutes or so to read and then go back to bed. 2. Melatonin 3-10 mg to take 2 hours before sleep can help 3. We try to avoid typical sedatives if possible 4. We avoid TCA medications for sleep since can potentiate orthostatic issues 5. Remeron/mirtzatipine 7.5-45 mg at HS can be used for sleep 6. Beta blockers at HS is used for POTS patients to control the adrenergic symptoms 7. Many orthostatic patients have nocturnal symptoms especially due to lack of body movement and reduced circulation of the blood. POTS patients due to the adrenergic response can have more supine chest pain, racing heart rate, restless sleep, nightmares, sweating, and awakenings. The pure autonomic failure, neurogenic orthostatic hypotension, autonomic neuropathy, Parkinson s, and multisystem atrophy patients due to the baroreceptor dysregulation response to help can still have supine HTN events (see below). PAIN: Many patients may have pain from orthostatics. 1. Some have small ?cooper neuropathy that is associated that can cause pain. Typical medications except TCA (due to promoting orthostatic issues) may help nerve pain. 2. Some of the POTS patients have Ehler-Danlos Syndrome that has joint disorder and neuropathy associated. 3. Inactivity causes joint stiffness. 4. Headaches and neck pain from hypoperfusion (there is an orthostatic headache and coat changer fixer syndrome.) Treating the orthostatic syndrome may help, but some may still have pain. 5. Be mindful of medication overuse such as in headaches of medicament overuse and also opioate usedisorder that can amplify pain. Compression Stockings and Garments: They do help, but are a struggle. Encourage patients to try them and explore various modalities if can with medical and non- medical. Again, this can be costly for the patient. Sports brand and non-medical compression stockings and garments may give relief and thepatient may have to shop around to ?nd the right gramajo point for them. 1. Compression stockings to the knee 20-30 mm Hg 2. above the knee thigh high 20-30 mm HG 3. Compression stockings to hip level /panty hose help since most of the blood is in the pelvic area 4. Abdominal binder can be helpful 5. Arm compression sleeve 6. Spanx 7. Encourage the patient to explore and do various combinations of the above. Also to use the gear in different aspects of the day. Most times in hot weather is not permitted outside. Also most cannot wear to bed. GI HEALTH: Many autonomic patients have associated GI complaints of bloating, re?ux, diarrhea, constipation and IBS. 1. Some actually will have de?debra GI motility of gastric and/or colonic motility by gastric empty, colonic motility studies, or capsule endoscopy studies. POTS patients in publications may have rapidmotility due to the adrenergic response. 2. Reviewing all medications for impact or irruption of the GI system is always good. 3. Treating for GERD is helpful. 4. Treating with typical routine care of medication and diet for diarrhea and constipation is helpful. Having the patient follow food triggers may help. Some may bene?t with FODMAP diet for IBS. 5. Maintaining hydration that helps orthostatic self-care helps GI health also. 6. For some the excessive salt loading may contribute to nausea and diarrhea, should be deciphered,and have the patient cut back to see if this is a factor. 7. Some of the purchased electrolyte drinks may cause GI symptoms. Have the patient cut back or change to another form of care to see if this is a factor for their GI symptoms. 8. Some patients need to see GI for evaluation of ulcers, celiac, and consequence of refractory issues of dysmotility. 9. Supplements of magnesium oxide 400 mg bid or tid can help constipation. BLADDER DYSFUNCTION: This can be a common complaint for autonomic patients. 1. POTS patients due to the adrenergic issues have often urgency and frequency symptoms. 2. Due to inactivity many patients will develop some pelvic ?oor dysfunction and thus bene?t with pelvic ?oor physical therapy to strengthen these muscles. 3. Frequent UTIs and Kidney Infections should prompt a Urology consult for bladder atonia and potential urodynamics studies. 4. All routine medications and supplements need to be reviewed that can bother the bladder function. 5. Sometimes the symptoms are challenging to decipher objectively and will need a Urology consult to address. SICCA SYMPTOMS: Often the patient may have dry eyes and mouth symptoms without having diagnostic evidence of Sjogren s Syndrome (lip biopsy.) 1. Eye exam by an top cager to evaluate diagnostically for dry eyes and if needed over the counter or prescription treatments. 2. Dry mouth can be common from routine medications and need to be reviewed as potential culprits. 3. With dry mouth the patient should be referred to the dentist for best care and plan. 4. The patient should be careful with dry mouth not to over use some sugar free treatments for dry mouth since can promote diarrhea and IBS. 5. Dameon in food and supplements may help some dry mouth. 6. If need pilocarpine tablets may be needed. MENTAL HEALTH: Most patients with this disease due to the impact and struggle of daily life of the change of self, burden, uncertainty, and grief will go through various emotions. 1. We encourage patients and their support person to pursue counseling for skills to live with chronic disease. 2. In depression and anxiety medications like SSRI may help with less impact on orthostatic. 3. Medications like Duloetine and Venfaaxline are not as ideal for POTS but the other orthostatic conditions. Actually these medications may help mental health and higher dose raise the BP. The POTS patients due to these drugs mechanism of action may aggravate the adrenergic symptoms. 4. Periodically check for depression, anxiety, and for even conceding SI, SA, HI, [place]. IV FLUIDS: We generally do not support the chronic use of IV ?uids for orthostatic and POTS patients. We also do not condone the use of a port for most patients. Most patients with routine orthostatic care will not need this treatment. 4. MY CHART, we encourage patients to use this portal for medical issues only and to send a brief 1-2 sentences issue. Large messages will encourage a needed virtual appointment perhaps. 5. The patient can always ?nd their of?ce visit in the MY CHART portal. 6. Care Everywhere if EPIC is shared will have our of?ce notes. 7. We encourage all our patients to have a local family medicine team to work with since we cannot handle medical issues by MY CHART, phone call, and are not able to immediately see a patient. 8. The POTS patients can request also the POTS ER letter if needed to have with them for ER and Urgent Care needs. 9. Some Orthostatic and POTS patients may need either or both a Neurologist and a Manager Store locally to be part of their care. DISABILITY: 1. Many of the patients may not be able to work. Due to the diverse scope of the work we do at the Clinic we sincerely cannot attest or keep up with the paperwork for disability. We can at times write of support for disability, but not be the main medical provider of the paperwork. POTS Manual: Read the POTS manual online. This will help you understand your POTS diagnosis, work with your medical team, and includes detailed instructions and tips for improved daily living with POTS. [email or web address] ORTHOSTATIC TIPS Orthostatic Dysfunction--Daily Living Tips Living with a disorder of the autonomic nervous system is life altering. Making lifestyle changes in order to thrive in their day to day and long-term is essential. Orthostatic disorder occurs when the upright positioning of the body causes variable blood pressurechanges that induce symptoms. Your body has a network of blood vessels made up of arteries, veins, and capillaries. The heart pumps blood into the arteries, which carry the blood throughout the body. Blood pressure is the pressure or force of blood pushing against the schuster of the arteries. Blood pressure is written as two numbers--Systolic (top number) and Diastolic (bottom number) for example a normal blood pressure would be read as 120/80. The first number, systolic pressure is the pressure in the arteries when the heart beats and fills them with blood. The second number, diastolicpressure is the pressure in the arteries when the heart rests between beats. Orthostatic hypotension is a condition in which your blood pressure falls significantly when you stand up quickly. The main symptoms of orthostatic disorder is dizziness and feeling lightheaded upon standing. In some cases, people with orthostatic hypotension may even faint. Other symptoms include: Blurred vision Nausea Disorientation or confusion Feeling weak Fatigue Falling Chest pain Neck pain Cognitive disorder Difficulty breathing Base of neck pain and head pressure Weak, rubbery legs, difficulty walking Rebound or surge in blood pressure spikes especially when laying down These symptoms usually clear up when you sit or lie down for a few minutes. BEST PRACTICE DAILY TIPS Please make all postural changes from lying to sitting to standing slowly Drink 2-2.5 liters of fluid per day. On a bad day or with worsening of symptoms, drink 500 cc of water quickly. This will result in an increase in blood pressure within five minutes of drinking the water with the effect lasting up to one hour. In the case of Congestive Heart Failure and Hypertension or any other medical condition with salt restrictions, please follow clinician recommendations regarding fluid and sodium intake. Avoid large meals which can cause low blood pressure during digestion. Eat smaller frequent meals throughout the day. Meals rich in carbohydrates can create more orthostatic symptoms. Avoid alcohol as it can worsen low blood pressure upon standing. Limit caffeine intake as it may increase urine production and reduce blood volume. Compression stockings while somewhat uncomfortable do help those with disorders of the autonomic nervous system. High-waisted leggings can also help as do abdominal binders which are very helpful. Purchase a blood pressure cuff to monitor blood pressure and pulse. Take your vitals per guidance of your provider. Also, when feeling unwell check your vitals and keep a log. This is so providers may review in the future. HYDRATION There are many commercially produced hydration and sports drinks available. If you choose, you can make your own beverage using the recipe from the World Health Organization. This can be cost effective and is free of preservatives. Maintaining 64 -84 ounces per day as long as it is not contraindicated due to other health issues is pepe. Drinking earlier in the day avoids as much to avoid frequent and nighttime urination. Water helps and is free. The recipe is from the World Health Organization (WHO) and is as follows: Filtered (tap or bottled) 1 liter of drinking/tap Mix with teaspoon of salt, six (6) teaspoons of sugar or sugar substitute Let cool This will give you five cups ESSENTIAL PHYSICAL ACTIVITY Part of the daily care involves moving the body. Exercise does help orthostatic patients live better lives. Though it seems challenging, it helps control symptoms and often improve them. Those with this disorder can become physically deconditioned quickly as a result of long periods ofactivity. . The type of exercise and level of difficulty as well as time spent vary from person to person and should be determined by your clinician. Even starting for five to ten minutes per day andworking your way up will make an impact. Pepe is consistency and frequency. Have a support person or manuel present when beginning for safety and guidance. Start slow and reevaluate in a week and then a month. Here are some general tips that are helpful if done daily. Perform lower extremity exercises to improve strength of the leg muscles. This will help prevent blood from pooling in the legs when standing and walking. Preferred exercises are walking, squatting, foot peddle bike, and use of a stationary bicycle. If you are able to walk when counting steps, use your phone, a fit bit, or life logging device to count steps. Gauge your daily steps and over time increase them. Example: 3000 steps per day. Do 300 per hour to 3000 total per day. Seated chair yoga and sandro chi for balance helps. This helps with inspiration and expiration to improve heart rate variability. These options can be found online also. Seated recumbent bike and even a foot peddle bike at home depending on the level of disability of the patient can help be beneficial. A Counting steps program with graduating accumulation of steps in the day should be started. A walking program even if one takes 50 steps every hour during wakefulness should be done and over time evolve to more steps per interval. If indicated, physical therapy locally for more muscle strength and to maintain gait/balance. SOCIAL MEDIA Social Media can be a great resource and a way to connect with people who share your diagnosis. However, it is important to be mindful of the content posted. Everyone has a different journey. Be sureyour information comes from a reliable source and do not take medical advice from social media--always contact your clinicians to review relevant information specific to your condition and follow your own medical plan of care. SALT LOADING: The loading of salt can be 3-5 grams per day if it is permitted. Some will do salt tablets which can be purchased over the counter. Take with food since can cause nausea. Encourage patients to add salt to nutrient rich food or consume salty foods. (Avoid default foods such as potato chips that are calorie rich but nutrient poor.) Veggie, Chicken, and Beef Broths are good ways for hydration and salt. Pickles and olives are salty snacks. Salt and water loading the patient may note more bloating and increased BMI. More abdominal and pelvic girth can occur. Watch for any elevated blood pressure readings. LEG SWELLING: Can occur from the blood pooling from the orthostatic issues. The legs may even turn blue, red, and pale. Some may have even livedo reticularis. Treating the orthostatic disorder will help. Compression stockings knee high, thigh high, and even panty hose can help. Pressure grade 20-30 or higher can be tried to see what helps and is comfortable. Wear them for a few hours in the day, while walking, and mild activity. They are not recommended to wear during sleep. Elevate legs up above the heart repeatedly during the day to reduce swelling. If possible, repeatedly do the legs on the wall yoga maneuver. This can be done while lying in bed. SLEEP: Sleep can be a challenge due to aspects of typical chronic health issues of inconsistent sleep schedule, inactivity, medication effects and even mental health aspects of chronic disease (worriment, rumination of the future, uncertainty). Keep the room the ideal temperature for your comfort. Keep technology out of the room such as tablets, cellphones, TV, and laptops as they can maintain wakefulness. If you cannot sleep, get out of bed for 30 minutes or so to read and then go back to bed. Melatonin 3-10 mg to take 2 hours before sleep can help. Review in your next routine medical appointment if this is an option for you. We try to avoid typical sedatives if possible as they can potentiate orthostatic issues. Many orthostatic patients have nocturnal symptoms especially due to lack of body movement and reduced circulation of the blood. POTS patients due to the adrenergic response can have more supine chestpain, racing heart rate, restless sleep, nightmares, sweating, and awakenings. Go to bed and wake up at the same time daily including weekends. Do not nap more than 30 minutes during the day. PAIN: Many patients may have pain from orthostatic issues Inactivity causes joint stiffness. Exercise and gentle range of movement of the joints will often relive stiffness. Headaches and neck pain from hypo perfusion (an orthostatic headache and coat changer fixer syndrome lay down and goes away.) Treating the orthostatic syndrome may help, but some may still have pain. Review with clinician in follow-up. Think about what makes pain better and what makes it worse and describe during appointment. COMPRESSION STOCKINGS AND GARMENTS: They do help, but can be a struggle. Help from your clinician as well as determining personal preference and effectiveness are pepe. Please note, it may be difficult to wear compression gear in the heat and make sure not to wear to bed. Below are a few general guidelines. Compression stockings to the knee 20-30 mm Hg above the knee thigh high 20-30 mm HG Compression stockings to hip level /panty hose help since most of the blood is in the pelvic area Abdominal binder can be helpful Arm compression sleeve Spanx High waisted leggings GI HEALTH: Many?autonomic?patients have associated GI complaints of bloating, reflux, diarrhea, constipation and IBS. If you notice any food that trigger discomfort, be mindful. Maintaining hydration helps orthostatic self-care and GI health also. Some of the purchased electrolyte drinks may cause GI symptoms. Find which one works for you or make your own hydration drink following the WHO recipe found earlier in this document. Supplements of magnesium oxide 400 mg twice or three times per day can help with constipation. Please check with your provider before starting any new supplements. BLADDER?DYSFUNCTION: This can be a common complaint for?autonomic?patients. Due to inactivity many patients will develop some pelvic floor?dysfunction?and thus benefit from pelvic floor exercises throughout the day to strengthen these muscles. Sometimes the symptoms are challenging to decipher objectively and will need a Urology consult to address. Dry Mouth and Dry Eyes: Often the patient may have dry eyes and mouth symptoms. Eye exam by an top cager to evaluate diagnostically for dry eyes and if needed over the counter or prescription treatments. Dry mouth can be common from routine medications. With dry mouth please see your dentist for best plan of oral hygiene and care. MENTAL HEALTH: Most patients with this disease from the impact and struggle of daily life will go through various emotions. We encourage patients and their support person to pursue counseling for skills to live with chronicdisease. In depression and anxiety medications like SSRI s and SNRI s may help with less impact on orthostatic. These medications may be prescribed by medical providers in follow-up visits if indicated. IV FLUIDS: We generally do not support the chronic use of IV fluids for orthostatic patients. [facility] of Present illness Narrative* lAvin Huddleston DO - 04/25/2022 4:21 PM EDT Yolanda Aparicio is a 26 year old female. SHARED MEDICAL APPOINTMENTS: Patient is at home I spent a total of 60 minutes on the date of the service which included [id number] patient care, completing clinical documentation, communicating results to the patient/family/caregiver, and care coordination (not separately reported). To help in your diagnosis and can watch over and over again (even share or view with your support people) Search on the internet , FLAQUITO ORTHOSTATIC EXERCISE ( It is on [employer]) Go to PLAYLIST and there is about one hour of 14 short videos streamed together that helps to teachand explain about POTS called LEARNING ABOUT POTS. LEARNING ABOUT POTS on FLAQUITO ORTHOSTATIC EXERCISES Please go to FLAQUITO ORTHOSTATIC EXERCISE on [employer] It is 100 minutes that can help improve your life as did others. For others in your life who support you share the playlist on FLAQUITO ORTHOSTATIC EXERCISE on [employer], I love someone with POTS and want to learn These videos will help to educate and familiarize as compliments in the road to recovery and help with POTS We recommend to watch repeatedly 1-3 times at least for Weeks 1-2: Also you can have daily educational with Dr. Huddleston on [employer] : POTS FLAQUITO There are other videos to help with exercise that we can guide as well for dizziness, neck pain, pelvic floor, breathing work, self care, and vagal tone to explore If there is an urgent issue seek urgent care or medical level ER care. If needed review or see your PCP For POTS patients recommend to use the POTS manual, flaquito orthostatic exercise video on [employer]Neurodynube for educational, utilize your chronic self care tools, attend more share medical appointments are recommended POTS Manual: Read the POTS manual online. This will help you understand your POTS diagnosis, work with your medical team, and includes detailed instructions and tips for improved daily living with POTS. [email or web address] Reminder that with health conditions that most medications and other care treatments including rehabilitation /exercise programs need 3-4 months to work . With chronic health conditions may need evenlonger to work if one has been ill and suffered. TIP: We are recommending also for patients in this time of ramped up use of social media to be mindful to check content for accuracy. Also when one post especially think about before posting since can be forever and can have lasting impact on others with hurtful, shaming, hazing, and harm. Often social media posts can be traced back to sender easily in time stamped and content. Sterile Inflammation: The nervous system can create its own inflammatory response. This is not autoimmune, but just inflammation. This response of the nervous system can lead to neuron excitement that is sustained called neuro excitatory and with secondary inflammation. This is how fibromyalgia and migraines behave as well POTS. Some first treatments with anti inflammatory may help these conditions may help, but the core work is approaches of neurological of treating of like a circuit of re wiring via neurological medications, wellness, education work for insights, health psychology, biofeedback, and this work creates new circuits to stop this reaction BENNIE can be false + in women especially in chronic health disease reviewed Over activation of neuro excitatory with growing research can lead to more inflammation and growingdata of muscle pain, joint pain, and even some data of like in fibromyalgia small fiber neuropathy Data of COVID with sustained response reviewed and this ongoing above reviewed and how is similar Pick one activity that is even fun and pleasure to show your brain and body some mormon and solace/peace. Do it daily 5-10 minutes a day at least. Does not have to be even medical. GUT The gut is the second brain Most of serotonin that helps mood, stamina, and pain is in gut. Gut does not work will feels worse in these aspects Adrenaline stops the ability to rest and digest and thus more pain, bloating, IBS, and less good nutrients. More skin isues (acne, eczema, rosacea, dry skin, hair loss,dry hair), leaky gut, normal bacteria leaves, and more digestion challenges /food intolerance Swallow issues /gag/ voice changes since is vagal and adrenaline will make this vagal not work . Gargling, singing, brushing tongue exercises help correct. If can gargle with salt water helps also Most of immune system is in the gut and can lead to much food challenges. Even can be challenge to know what is mast cell and not. Often getting gut right with probiotics, control of POTS, and diet changes to help gut healing helps reduce issue of the gut being inflamed and what may be or could be mast cell . Sugar is very irritating to the gut can cause laxative effect. Also ties into why we may see that dairy, wheat, white food, gluten free is better, and less refined foods are better for pots. The sugar and the altered gut state can lead to poor absorption that lead to sugar spikes, reactive hypoglycemia, and sugar dumps. Adrenaline also leads to insulin use and sugar changes of up and then drop. Sugar spikes and drop leads to fatigue, anxiety, depressive feeling, headache, skin changes, weight up and down, and more. Why being sugar reduced is pepe and helps in POTS. FODMAP diet. Hydration drinks with less sugar and also avoid artificial sweeteners (the artificial sweeteners causes confusion to the body and spike insulin still sense there is sugar). Diets best with small meals, hydration , water, proteins, good fats (ghee butter, olive oils,) veggies, and complex carbs through the day. Have to eat and train the gut as a muscle thus small meals in the day. Diet including polyphenol rich foods (colorful natural ), quercetin foods, and add tumeric help anti oxidants Supplements for helping neural excitable and mitochondrial healing Add each one every few weeks /take in am with good food Co Enzyme Q10 100 mg daily for 4 weeks then go 200 mg daily Alpha lipoic acid 600 mg daily NAD /nicotinamide adenine dinucleotide (NAD) 10 mg daily MAG stearate or glycinate 400 mg daily B12 1000 ucg daily Gut health : Less sugar to no white sugar [place] oils 1 gram daily Probiotics any type and add prebiotic foods Avoid processed foods, too much simple carbs, and too much dairy Any type of brand is good and can over time customize more as you want and learn, but start somewhere Again like any supplement can start small doses if want to adjust More tips: Hydrate with just water about 64 ounces in the day Eliminate sugar as much as can including natura types from the diet Eliminate simple sugars (refined carbs ) and reduce dairy. Small and frequent meals with proteins, complex carbs, veggies, and if use fats good oils (olive oil, avocado, walnut) . Less to no fried food Work on sleep schedule: Go to be same time and up same time with elimination of naps. Initially will be hard. Will have to get up the set time even do not rest well till the schedule sets into of this pattern of sleep pattern formation of the body be settled and wired in. Take small steps with diet and know there will be set backs along the way If have not done our exercise for POTS in the exercise S[facility] then join us by my chart. If can do any simple exercise 10-15 minutes per day can use our flaquito orthostatic exercise utilizing the sandro chi,qi qong, and chair exercise. Do not have expensive brands or certain brands of supplements or foods Be patient. You have been ill for a long time. It can take 6 months for full benefit to see improvement of brain fog, gut health, stamina, and if has mast cell issues We always start with a discussion of POTS physiology. When you stand two water bottles of blood drop. To compensate, the body speeds up the heart in an effort to get blood to your brain so you don t faint. This is adrenaline and while it may feel terrible it is an autonomic protective mechanism. The brain controls the Autonomic Nervous System. The Sympathetic Nervous System is responsible for stress and survival and is why you feel the symptoms of adrenaline which include but are not limitedto: racing heart rate, chest pain, sweating, neck pain, fainting, near fainting, nausea diarrhea, bloating, frequent urination, skin tingling, ears ringing, heightened senses, inability to sleep, cannot think, brain fog, jerking limbs, muscle tightness and the list goes on... The Parasympathetic Nervous System is responsible for growth and repair, rest and digest. Some of you may notice a drop inheart rate after a sympathetic surge. The polyvagal symptoms may take over: the heart rate and blood pressure drop, you may feel cold, feel the sensation of rubber legs, defecate, urinate etc. This explains the cycle of Fight, Flight, and Freeze. Once your body gives way to adrenaline, you may become listless and exhausted feeling the rag doll effect. GI issues remain one of the constant and most common complaints of those with orthostatic issues. Many suffer with bloating, pain, constipation, and diarrhea. Adrenaline is a huge factor and has an impact on digestion. One cannot rest and digest if in adrenaline mode as the body is in survival mode--focused on other organs and self-preservation. A body in survival does not digest efficiently. The stomach is the second brain. After the brain, most nerve bundles and neurons are located in thegut and can work independent of the brain. Diseases may show in the gut as the first path of violation before presenting as a nervous system disorder. We all know the feeling of butterflies or stomach discomfort. Stomach discomfort can also present in times of acute or chronic stress. The brain gut connection is so strong we may feel nausea, may vomit, and may be unable to eat. 70% of the immune system is located in the gut. The entire GI system is filled with good and bad bacteria. Healthy and unhealthy bacteria. The gut being the second brain and is a good indicator of how well someone is feeling. If GI health is poor,the patient generally feels overall unwell. Adrenaline creates a hostile zone in the gut: bloating, IBS, pain, low serotonin can affect ones mood and cause sadness, pain, malaise depression, fatigue. Allergies food intolerance, mast cell are aresult of immune dysfunction. Leaky gut gets rid of good bacteria and when ones digestion is off they can experience hair loss, weight changes (up or down) acne, dry skin, dry mouth, eczema, and rosacea. 20% of POTS patients have delayed motility and 20% having rapid motility. Eat the best, leave the rest: Small meals, simple proteins Chicken/fish, Hydrate with water, avoid artificial chemicals and sweeteners, Probiotics for balancing and gut healing, supplement with oregano, dameon, and turmeric can also help. These changes take time to see a result. Starting with small doses are always best practice to see how one does when adding a new supplement. Sugar is public enemy number one: It is in a lot of food so check nutrition labels. There are limited amounts in natural foods. Sugaris a gut irritant/ laxative. Known irritants are dairy, wheat, gluten, refined carbs, and white foods. Sugar gives a jolt of energy and then drops it. Sugar can increase fatigue, mood, anxiety, panic attacks, depression, migraines, IBS. Sugar spikes insulin then drops it Adrenaline spikes insulin the drops glucose Gut disorders cause inconsistent glucose absorption The three above compete so it s best to reduce sugar intake found in natural foods such as veggies,complex carbs (brown rice for example) proteins, and good oils. Mast Cell and Food Allergen--start with correcting the gut and see if there is an improvement. We touched on swallowing issues. Swallowing us a vagal response. Some people may be unable to swallow pills, the feel like they are being strangled, lost voice, raspy, dryness, GERD, reflux. Too muchadrenaline. Gargling, salt rinse, tongue brushing, singing and chanting can also help. Treating POTS is essential as things in the body will start to balance. Hydrate with 64 ounces of water per day. Keep it low sugar and try to avoid artificial colors and artificial sweeteners. Moving the body helps the gut and is essential in POTS care. 5-15 minutes per day of wellness can show your brain and body that it can be an adrenaline free zone. Additional supplements to consider: Magnesium Stearate or Glycinate Oregano Pills [place] Oils Prebiotics and Probiotics COQ10 MG Daily Thank you for joining us and we look forward to seeing you in a future SMA. Let us start with discussing POTS physiology. When you stand two water bottles of blood drop. To compensate, the body speeds up the heart in an effort to get blood to your brain so you don't faint. This is adrenaline and while it may feel terrible it is an autonomic protective mechanism. The brain controls the Autonomic Nervous System. The Sympathetic Nervous System is responsible for stress and survival. The Parasympathetic Nervous System is responsible for growth and repair. Finding the balance between the Sympathetic and Parasympathetic for those of us living with POTS presents a challenge. The Sympathetic cardiac nerves increase and force of contraction, whereas the Vagus nerve (parasympathetic) decreases heart rate. The Baroreceptor sends signals to the brain. The brain is like a smartphone and creates memories from the experiences as is the case with adrenaline. The brain is tied into speeding up the heartrate and adrenaline. You may notice adrenaline surges coming at around the same time each day. That is the memory-make adrenaline and then do it again and again on a loop. A pattern of symptoms form such as pain, racing heart rate, headaches, and tingling. After this heightened form of adrenaline takes place, the polyvagal symptoms may take over: the heart rate and blood pressure drop, you may feel cold, feel the sensation of rubber legs, defecate, urinate etc. This explains the cycle of Fight, Flight, and Freeze. Once your body gives way to adrenaline, you may become listless and exhausted feeling the rag doll effect. This can last for hour to days. An effective way to lower heart rate is called the COLD EFFECT DIVE REFLEX: If you hold your breathand put your face in cold water, your heart will immediately slow down by 25%. Using a cold washcloth in a plastic sandwich bag can also help lower heart rate. Tongue on roof of soft palate slows heart rate: To perform, curl tongue back to touch the soft palate in the mouth. Your mouth may remain open a tad, make an R sound. Doing this numerous times in a day will reduce adrenaline symptoms such as lowering HR, decreased sweating, and decrease brain fog as well as jitteriness. Another effectiveexercise is performing the Valsalva maneuver to prevent palpitations. To do this 1. Pinch your nose, 2. Close your mouth, 3. Then try to breathe out. To explain at a more scientific and evolutionary level would be to talk about the Mammalian Diving Reflex: A Marine mammals' physiological response when stimulated by cold water submersion is the shunting blood from their peripheral tissues to their body's core. The increased blood volume in the core then stimulates a vagal response which produces profound bradycardia. This shunting of blood fromnon-essential organs and the lowered oxygen demand allows the diving mammal to remain underwater for a prolonged period. We also discussed nose breathing as it is much more effective than mouth breathing when it comes tocalming heart rate. Three breaths in, hold for 8, three breaths out. Over time with proper care, the heart rate is controlled by exercise and medication, but remember it is possible to still feel POTS symptoms with normal vitals. The idea is through wellness modalities to create new memories and files. By realizing this is occurring, being patient with oneself and mi ndfulness, relaxation, and decluttering rework the circuits for more positive experiences The brain does get involved with POTS. The baroreceptor does have localization sites into the brainstem. This is why we can see in head injury cause POTS. Also the brain getting activate in adrenergic state of flight or fight or freeze can cause more than just typical body or heart rate symptoms, but also the brain symptoms of jittery, cannot think, confused at times, restless, headaches, dizzy, jerky limbs, tight muscles, pain, ,less hope, and less creative. The brain as we said is in downstairs mode of the lower center operating and more of the amygdala . This can become more automatic and the default response. The brain is a circuit and remembers this is what it is to do. Recognizing this as occurring is pepe and next steps is to show your brain is okay to learn new ways of circuits is pepe. New ways are via wellness, exercise, medication at times, and even health psychology. We have health psychology here to show nervous system new ways to be again, relaxation tools. Biofeedback, and tips for living with a disease. We can offer this health psychology by sending a [employer] message to us . POTS CHAT--BRAIN MEMORIES-- Let us start with discussing POTS physiology. When you stand two water bottles of blood drop. To compensate, the body speeds up the heart in an effort to get blood to your brain so you don t faint. This is adrenaline and while it may feel terrible it is an autonomic protective mechanism. While manypeople think most POTS patients faint, in reality only about 15% of those with POTS do. POTS symptoms include Tachycardia, lightheadness, brain fog, body pain, GI issues, numbness and tingling limbs,and these are just to name a few--we all know the symptoms can run the gamut. Dizziness is also a chief complaint and can be described in a multitude of ways. Some of us feel like we re rocking on a boat, many have trouble driving, and functioning through the day is also a major challenge when one has vestibular issues. We always start with a discussion of POTS physiology. When you stand two water bottles of blood drop. To compensate, the body speeds up the heart in an effort to get blood to your brain so you don t faint. This is adrenaline and while it may feel terrible it is an autonomic protective mechanism. The brain controls the Autonomic Nervous System. The Sympathetic Nervous System is responsible for stress and survival and is why you feel the symptoms of adrenaline which include but are not limitedto: racing heart rate, chest pain, sweating, neck pain, fainting, near fainting, nausea diarrhea, bloating, frequent urination, skin tingling, ears ringing, heightened senses, inability to sleep, cannot think, brain fog, jerking limbs, muscle tightness and the list goes on... The Parasympathetic Nervous System is responsible for growth and repair, rest and digest. Some of you may notice a drop inheart rate after a sympathetic surge. The polyvagal symptoms may take over: the heart rate and blood pressure drop, you may feel cold, feel the sensation of rubber legs, defecate, urinate etc. This explains the cycle of Fight, Flight, and Freeze. Once your body gives way to adrenaline, you may become listless and exhausted feeling the rag doll effect. Thank you again. Your attendance of the Shared Medical Appointment and involvement in the POTS community is pepe to your success and those who come behind you. Please look at POTS body movement techniques at [employer] orthostatic exercises - [employer], and please follow our Instagram page [email or web address]. Please take advantage of all of these tools available to you. We are committed to your journey toward restored wellness. We look forward to seeing you again in future SMA s. To schedule the ZOOM POTS SMA please call during Sunday-Sunday 9 am - 4 pm , Please be patient with the phone line as we are in midst of reopening during the pandemic phase We are honored and glad to have you part of the SMA for POTS Welcome to ZOOM POTS SMA (SHARED MEDICAL APPOINTMENTS) We have learned at the [facility] and especially in my work and our department that POTS thatthere is so much to learn to live well with this condition. So much of the emphasis needs to be on life tips of education, body awareness, community, exercise , daily life tips, and the psychology of living well with POTS. 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 We have even published the benefit of the SMA for POTS. We used to do the SMA in person, but during the pandemic we are starting to do them via ZOOM. For years I have been wanting to do the SMA as a virtual format like ZOOM. The ZOOM SMA is a safe space to be supported. We do request to allow your face to be seen and courtesy language. The session is about 90 minutes long. We will have a topic, questions, and answers. The sessions are not recorded. POTS Manual: Read the POTS manual online. This will help you understand your POTS diagnosis, work with your medical team, and includes detailed instructions and tips for improved daily living with POTS. [email or web address] YouTube: [email or web address] orthostatic exercise Instagram: POTS FLAQUITO Orthostatic Your body has a network of blood vessels made up of arteries, veins, and capillaries. The heart pumps blood into the arteries, which carry the blood throughout the body. Blood pressure is the pressure or force of blood pushing against the schuster of the arteries. Blood pressure is written as two numbers; for example, 120 over 80 millimeters of mercury. The first number is the systolic pressure. This is the pressure in the arteries when the heart beats and fills them with blood. The second number is the diastolic pressure. This is the pressure in the arteries when the heart rests between beats. Orthostatic hypotension is a condition in which your blood pressure falls significantly when you stand up quickly. (Hypotension is low blood pressure.) What are the symptoms of orthostatic The main symptom of may even faint. Other symptoms include: Blurred vision Nausea Disorientation or confusion Feeling weak Fatigue Falling Chest pain Neck pain Cognitive disorder Challenge in breathing Base of neck pain and head pressure Breathing challenge when standing up Legs become weak/ walking challenge/rubbery legs Rebound or surge in blood pressure spikes especially when laying down These symptoms usually clear up when you sit or lie down for a few minutes. THIS NOTE IS FOR AT FIRST FOR MY DOCUMENTATION TO PROVIDE CARE, HELP INSURANCE COMPANY AND COLLEAGUES TO HAVE NEUROLOGICAL CONTEXT OF MY , AND FOR MY PERSONAL RECORDING TO FACILITATE FUTURE CARE BY HAVING A WRITTEN DOCUMENT MEMORY OF OUR CONSULT TOGETHER . THANK YOU FOR UNDERSTANDING THIS OFFICE NOTE IS A PHYSICIAN BASED DOCUMENT FOR COMMUNICATION AND CARE. 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 (ProTenders) Take 1 teaspoonful (5ml) directly by mouth 1 to 3 times daily. Hold in mouth 30-60 seconds and swallow. SPM Active (Metagenics) Take 2 softgels daily as directed. metoprolol tartrate, short acting, (LOPRESSOR) 25 mg tablet Pt taking 12.5 mg in am and 25 mg at night modafinil (PROVIGIL) 100 mg tablet Take 1 tablet by mouth once daily for 30 days. sodium chloride 1 gram tab TAKE 1 TABLET BY MOUTH 3 TIMES A DAY *TAKE WITH FOOD* gabapentin (NEURONTIN) 100 mg capsule Take 2 capsules by mouth twice daily. (taken with 300mg capsule) hydrOXYzine HCl (ATARAX) 10 mg tablet Take 1 tablet by mouth three times daily as needed. gabapentin (NEURONTIN) 300 mg capsule 1 capsule 2x/day tiZANidine (ZANAFLEX) 4 mg tablet Take 1 tablet by mouth daily at bedtime. ondansetron orally disintegrating (ZOFRAN ODT) 4 mg disintegrating tablet Take 4 mg by mouth once daily as needed. ibuprofen (MOTRIN) 200 mg tablet Take 200 mg by mouth as needed. acetaminophen (TYLENOL) 500 mg tablet Take 500 mg by mouth as needed. No current facility-administered medications on file prior to visit. 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 If need more salt in water some may add a pinch of water to the water or even Himalayan salt if can tolerate the taste. Electrolyte beverages be mindful of sugar content, dyes, and artificial sugars since can cause bloating, diarrhea, brain fog, headaches, and allergies. Low sugar to no sugar and dyes drinks with of course no caffeine is a goal. Salt loading if causes bloating just do in diet with foods. Diet: people notice sugar, dairy, and gluten/ wheat bother so a diet with less to reduce of the sugar, dairy, to processed carbs help best. With diet proteins (chicken, fish )and good fats (olive oil, avocado oil ) with complex carbs are ideal (veggies, berries, quinoa, brown rice) Sleep : bed same time and up same time; Avoid naps. Eventually though rough will get on this schedule even though feels a challenge Wellness: find something in the day to keep mind body spirit going that helps keep the mind and show the mind that is not in always aware of adrenaline state (journaling, knitting, puzzles, prayer, meditation, breathing, etc . Show the mind and body it can be free of adrenaline fight or flight state Move the body to keep the blood flowing and muscle strong. Can start even with flaquito orthostatic chair exercise or sandro chi /qi qong Probiotics help gut health since most have IBS issues (any brand to get started is a good start) Breathing work: Inspiration heart rate increases with (sympathetic response) based on blood going to lungs and need compensate to get blood shuffle and with expiration heart rate slows down (parasympathetic) . Exercise of amplifying of parasympathetic is to breath response. Take slow breathe inspiration over 3 seconds and then breathes over 5 seconds out with expiration (do exercise via nostril breathing) Alvin Huddleston D.O ELECTRONICALLY SIGNED April 25, 2022 Adult Neurology/ Board Certified Director of Autonomic Center Department of Neuro Muscular of the Neurological Stickney Candy Attendant for Neurology Clerkships Clinical Baby Counselor of Neurology Physician Advisor for the [facility] of Neurology Speech Correction Assistant of Mistreatment and Neglect [facility] School Faculty Appointment [facility] of Medicine Faculty Appointment [facility] Professor [facility] of [facility] / TAX ID: [id number] [address]/ -[address] [place] [address] / consult requested for an opinion regarding the evaluation and treatment of POTS My final impression and recommendations will be communicated back to the requesting physician by way of the shared medical record or letter via US [email or web address]/ Welcome There are videos /playlist/podcast to viewed and helped for exercises and wellness for POTS and Orthostatics Instructions: . HELP WITH MEDICAL PROVIDERS IN LOCAL CARE NOT PART OF THE MAIN C[facility]US [facility] To help be successful in care locally with the limits of virtual, my chart , phone calls, and limited in person appointments. This tips sheet helps patients and medical providers. This tips are for guidance and general themes. We do not want them to be customized into individualmy chart message questioning and repeated messages Dear Colleague, This is a tip sheet collaboration to help along in our shared work with the orthostatic to give context and approaches we do with orthostatic patients in our care in the Autonomic Department and you can also bridge into your practice. Thank you for the collaborative work Doctor Guidance for Autonomic Dysfunction SIMPLE FYI ON ORTHOSTATIC MEDICATIONS 1. Florinef: Dosing 0.1 mg at once or twice per day. May need to watch for hypokalemia 2. Midodrine: 2.5 mg daily to 20 mg tid. Have to watch for rebound HTN. 3. Pyridostigmine (60 -240 mg) has helped autonomic symptoms via cholinergic stimulations without raising the BP. 4. POTS patients to control adrenergic symptoms may need beta blockers, calcium channel blockers, and ivabradine. MEDICATIONS OF ORTHOSTATICS, REVIEW OF MEDICATIONS AND SUPPLEMENTS AND BP CHECKS 1. If your clinical discretion is prompted you can hold the medication for the day or longer, but remind the patient and the support person to be careful worsening of syncope and falls. 2. Can if resuming medications can go back and 02/15 to dose 3. SBP > 170 or DBP > 95 over consistent readings is a concern 4. For BP readings we do recommend the patient or support person to check the BP and pulse about three times sitting in the am before coming to the appointment 5. REVIEW ALL MEDICATIONS AND SUPPLEMENTS IN EACH VIIST THAT CAN BE CONTRIBUTORY TO ORTHOSTATICS. SUCH MEDICATIONS ARE ANTI HYPERTENSIVES, ANTI CHOLINERGICS, ANTI PSYCHOTICS, AND MANY BLADDER TREATING MEDICATIONS. SOME POTS PATIENTS WILL NEED BETA BLOCKERS AND CALCIUM CHANNEL BLOCKERS TO CONTROL THE ADRENERGIC VITALS AND SYMPTOMS. ROUTINE LABS: We recommend to use your general medical discretion as any patient to check labs. 1. On Florinef to check potassium 2. Some of the POTS patients are more prone to hypokalemia and may be worthwhile and no interval oftime needed to check potassium. 3. B12 is associated with orthostatic disorder 4. If SICCA is a concern an BENNIE, anti tipton, and anti rho may be helpful 5. If Mast Cell Disease comes up to check an tryptase (concern is > 20 and will need referral toAllergy/Immunology) 6. Thyroid Function Test 7. CBC and CMP annually with any medications of concern EXERCISE: AND REHAB CARE Exercise does help orthostatic patients greatly. Though it seems to be miserable and not feasible for this condition, it does help control symptoms and often improve them. 1. POTS patients bene?t with cardiac rehab. There is repeated data of the cardiac rehab model for POTS to improve and reduce symptoms. At the Clinic the cardiac rehab is a one-time visit and the patient is given the template to do independently. Locally, the cardiac rehab division may help in routine visits. Also utilize free information. Internet search and print the pots manual on the [facility] website POTS Manual: Read the POTS manual online. This will help you understand your POTS diagnosis, work with your medical team, and includes detailed instructions and tips for improved daily living with POTS. [email or web address] POTS [facility] CARDIAC REHAB PROGRAM for patients. 2. Seated chair yoga and if patient can tolerate, sandro chi for balance helps. Also this work helps with inspiration and expiration to help heart rate variability. 3. Seated recumbent bike and even a foot peddle bike at home depending on the level of disability of the patient can help and should be encouraged. 4. Counting steps program with graduating accumulation of steps in the day should be encouraged. A walking program even if the patient just takes for example 50 steps every hour during wakefulness should be encouraged and over time evolve to more steps per interval. 5. PT locally for more muscle strength and maintain gait/balance. 6. Some due to neck pain and the coat changer fixer of neck muscle orthostatic hypo perfusion will developdizziness and vertigo. Vestibular rehab for cervical vertigo may be needed. 7. Gait dysfunction can be for many reasons the underlying neurological diagnosis and inclusive of the impact of deconditioning. There is an orthostatic gait disorder of the elderly where syncope hasto be considered in sudden unexplained falls. SALT LOADIN. The loading of salt can be 3-5 grams per day if it is permitted. 2. Some will do salt tablets that are purchased over the counter. Take with food since can cause nausea. 3. Encourage patients to add salt to nutrient rich food or consume salty foods. (Avoid default foods such as potato chips that are calorie rich but nutrient poor.) 4. Veggie, Chicken, and Beef Broths are good ways for hydration and salt. 5. Pickles and olives are salty snacks. 6. Salt and water loading the patient may note more bloating and increased BMI. More abdominal and pelvic girth can occur. HYDRATION: This matters greatly for orthostatic patients 1. Maintaining 64 -84 ounces per day if allowed with other health issues per day is pepe. 2. Challenges are older persons who will not want to drink as much to avoid night time and frequenturination. We encourage early am hydration. 3. Water helps and is free. Tap water is ?ne. 4. Patients can purchase electrolyte solutions. Again be mindful of cost and if also cause GI symptoms of nausea, bloating, and diarrhea (see under GI health step 7.) 5. Watch if a concern for hyponatremia by ua and bmp. LEG SWELLING: Can occur from the blood pooling from the orthostatic issues. The legs may even turn blue, red, and pale. Some may have even livedo reticularis. 1. Treating the orthostatic disorder will help. 2. Compression stockings knee high, thigh high, and even panty hose can help. 3. Having the patient elevate the legs up above the heart repeatedly during the day will help. 4. If possible, repeatedly do the legs on the wall yoga maneuver. 5. Often legs swell from inactivity. Orthostatic exercise can help greatly. SLEEP: Sleep can be a challenge due to aspects of typical chronic health issues of inconsistent sleep schedule, inactivity, medication effects and even mental health aspects of chronic disease (worriment, rumination of the future, uncertainty). 1. Having the patient maintain same sleep schedule with bed at the same time and awakening the sametime daily is pepe. Try to avoid naps. Keeping the room in the ideal temperature control helps. Keeptechnology out of the room such as tablets, cellphones, TV, and laptops with the screen light that can maintain wakefulness. If patient cannot sleep, have them get up out of bed for 30 minutes or so to read and then go back to bed. 2. Melatonin 3-10 mg to take 2 hours before sleep can help 3. We try to avoid typical sedatives if possible 4. We avoid TCA medications for sleep since can potentiate orthostatic issues 5. Remeron/mirtzatipine 7.5-45 mg at HS can be used for sleep 6. Beta blockers at HS is used for POTS patients to control the adrenergic symptoms 7. Many orthostatic patients have nocturnal symptoms especially due to lack of body movement and reduced circulation of the blood. POTS patients due to the adrenergic response can have more supine chest pain, racing heart rate, restless sleep, nightmares, sweating, and awakenings. The pure autonomic failure, neurogenic orthostatic hypotension, autonomic neuropathy, Parkinson s, and multisystem atrophy patients due to the baroreceptor dysregulation response to help can still have supine HTN events (see below). PAIN: Many patients may have pain from orthostatics. 1. Some have small ?cooper neuropathy that is associated that can cause pain. Typical medications except TCA (due to promoting orthostatic issues) may help nerve pain. 2. Some of the POTS patients have Ehler-Danlos Syndrome that has joint disorder and neuropathy associated. 3. Inactivity causes joint stiffness. 4. Headaches and neck pain from hypoperfusion (there is an orthostatic headache and coat changer fixer syndrome.) Treating the orthostatic syndrome may help, but some may still have pain. 5. Be mindful of medication overuse such as in headaches of medicament overuse and also opioate usedisorder that can amplify pain. Compression Stockings and Garments: They do help, but are a struggle. Encourage patients to try them and explore various modalities if can with medical and non- medical. Again, this can be costly for the patient. Sports brand and non-medical compression stockings and garments may give relief and thepatient may have to shop around to ?nd the right gramajo point for them. 1. Compression stockings to the knee 20-30 mm Hg 2. above the knee thigh high 20-30 mm HG 3. Compression stockings to hip level /panty hose help since most of the blood is in the pelvic area 4. Abdominal binder can be helpful 5. Arm compression sleeve 6. Spanx 7. Encourage the patient to explore and do various combinations of the above. Also to use the gear in different aspects of the day. Most times in hot weather is not permitted outside. Also most cannot wear to bed. GI HEALTH: Many autonomic patients have associated GI complaints of bloating, re?ux, diarrhea, constipation and IBS. 1. Some actually will have de?debra GI motility of gastric and/or colonic motility by gastric empty, colonic motility studies, or capsule endoscopy studies. POTS patients in publications may have rapidmotility due to the adrenergic response. 2. Reviewing all medications for impact or irruption of the GI system is always good. 3. Treating for GERD is helpful. 4. Treating with typical routine care of medication and diet for diarrhea and constipation is helpful. Having the patient follow food triggers may help. Some may bene?t with FODMAP diet for IBS. 5. Maintaining hydration that helps orthostatic self-care helps GI health also. 6. For some the excessive salt loading may contribute to nausea and diarrhea, should be deciphered,and have the patient cut back to see if this is a factor. 7. Some of the purchased electrolyte drinks may cause GI symptoms. Have the patient cut back or change to another form of care to see if this is a factor for their GI symptoms. 8. Some patients need to see GI for evaluation of ulcers, celiac, and consequence of refractory issues of dysmotility. 9. Supplements of magnesium oxide 400 mg bid or tid can help constipation. BLADDER DYSFUNCTION: This can be a common complaint for autonomic patients. 1. POTS patients due to the adrenergic issues have often urgency and frequency symptoms. 2. Due to inactivity many patients will develop some pelvic ?oor dysfunction and thus bene?t with pelvic ?oor physical therapy to strengthen these muscles. 3. Frequent UTIs and Kidney Infections should prompt a Urology consult for bladder atonia and potential urodynamics studies. 4. All routine medications and supplements need to be reviewed that can bother the bladder function. 5. Sometimes the symptoms are challenging to decipher objectively and will need a Urology consult to address. SICCA SYMPTOMS: Often the patient may have dry eyes and mouth symptoms without having diagnostic evidence of Sjogren s Syndrome (lip biopsy.) 1. Eye exam by an top cager to evaluate diagnostically for dry eyes and if needed over the counter or prescription treatments. 2. Dry mouth can be common from routine medications and need to be reviewed as potential culprits. 3. With dry mouth the patient should be referred to the dentist for best care and plan. 4. The patient should be careful with dry mouth not to over use some sugar free treatments for dry mouth since can promote diarrhea and IBS. 5. Dameon in food and supplements may help some dry mouth. 6. If need pilocarpine tablets may be needed. MENTAL HEALTH: Most patients with this disease due to the impact and struggle of daily life of the change of self, burden, uncertainty, and grief will go through various emotions. 1. We encourage patients and their support person to pursue counseling for skills to live with chronic disease. 2. In depression and anxiety medications like SSRI may help with less impact on orthostatic. 3. Medications like Duloetine and Venfaaxline are not as ideal for POTS but the other orthostatic conditions. Actually these medications may help mental health and higher dose raise the BP. The POTS patients due to these drugs mechanism of action may aggravate the adrenergic symptoms. 4. Periodically check for depression, anxiety, and for even conceding SI, SA, HI, [place]. IV FLUIDS: We generally do not support the chronic use of IV ?uids for orthostatic and POTS patients. We also do not condone the use of a port for most patients. Most patients with routine orthostatic care will not need this treatment. 4. MY CHART, we encourage patients to use this portal for medical issues only and to send a brief 1-2 sentences issue. Large messages will encourage a needed virtual appointment perhaps. 5. The patient can always ?nd their of?ce visit in the MY CHART portal. 6. Care Everywhere if EPIC is shared will have our of?ce notes. 7. We encourage all our patients to have a local family medicine team to work with since we cannot handle medical issues by MY CHART, phone call, and are not able to immediately see a patient. 8. The POTS patients can request also the POTS ER letter if needed to have with them for ER and Urgent Care needs. 9. Some Orthostatic and POTS patients may need either or both a Neurologist and a Manager Store locally to be part of their care. DISABILITY: 1. Many of the patients may not be able to work. Due to the diverse scope of the work we do at the Clinic we sincerely cannot attest or keep up with the paperwork for disability. We can at times write of support for disability, but not be the main medical provider of the paperwork. POTS Manual: Read the POTS manual online. This will help you understand your POTS diagnosis, work with your medical team, and includes detailed instructions and tips for improved daily living with POTS. [email or web address] ORTHOSTATIC TIPS Orthostatic Dysfunction--Daily Living Tips Living with a disorder of the autonomic nervous system is life altering. Making lifestyle changes in order to thrive in their day to day and long-term is essential. Orthostatic disorder occurs when the upright positioning of the body causes variable blood pressurechanges that induce symptoms. Your body has a network of blood vessels made up of arteries, veins, and capillaries. The heart pumps blood into the arteries, which carry the blood throughout the body. Blood pressure is the pressure or force of blood pushing against the schuster of the arteries. Blood pressure is written as two numbers--Systolic (top number) and Diastolic (bottom number) for example a normal blood pressure would be read as 120/80. The first number, systolic pressure is the pressure in the arteries when the heart beats and fills them with blood. The second number, diastolicpressure is the pressure in the arteries when the heart rests between beats. Orthostatic hypotension is a condition in which your blood pressure falls significantly when you stand up quickly. The main symptoms of orthostatic disorder is dizziness and feeling lightheaded upon standing. In some cases, people with orthostatic hypotension may even faint. Other symptoms include: Blurred vision Nausea Disorientation or confusion Feeling weak Fatigue Falling Chest pain Neck pain Cognitive disorder Difficulty breathing Base of neck pain and head pressure Weak, rubbery legs, difficulty walking Rebound or surge in blood pressure spikes especially when laying down These symptoms usually clear up when you sit or lie down for a few minutes. BEST PRACTICE DAILY TIPS Please make all postural changes from lying to sitting to standing slowly Drink 2-2.5 liters of fluid per day. On a bad day or with worsening of symptoms, drink 500 cc of water quickly. This will result in an increase in blood pressure within five minutes of drinking the water with the effect lasting up to one hour. In the case of Congestive Heart Failure and Hypertension or any other medical condition with salt restrictions, please follow clinician recommendations regarding fluid and sodium intake. Avoid large meals which can cause low blood pressure during digestion. Eat smaller frequent meals throughout the day. Meals rich in carbohydrates can create more orthostatic symptoms. Avoid alcohol as it can worsen low blood pressure upon standing. Limit caffeine intake as it may increase urine production and reduce blood volume. Compression stockings while somewhat uncomfortable do help those with disorders of the autonomic nervous system. High-waisted leggings can also help as do abdominal binders which are very helpful. Purchase a blood pressure cuff to monitor blood pressure and pulse. Take your vitals per guidance of your provider. Also, when feeling unwell check your vitals and keep a log. This is so providers may review in the future. HYDRATION There are many commercially produced hydration and sports drinks available. If you choose, you can make your own beverage using the recipe from the World Health Organization. This can be cost effective and is free of preservatives. Maintaining 64 -84 ounces per day as long as it is not contraindicated due to other health issues is pepe. Drinking earlier in the day avoids as much to avoid frequent and nighttime urination. Water helps and is free. The recipe is from the World Health Organization (WHO) and is as follows: Filtered (tap or bottled) 1 liter of drinking/tap Mix with teaspoon of salt, six (6) teaspoons of sugar or sugar substitute Let cool This will give you five cups ESSENTIAL PHYSICAL ACTIVITY Part of the daily care involves moving the body. Exercise does help orthostatic patients live better lives. Though it seems challenging, it helps control symptoms and often improve them. Those with this disorder can become physically deconditioned quickly as a result of long periods ofactivity. . The type of exercise and level of difficulty as well as time spent vary from person to person and should be determined by your clinician. Even starting for five to ten minutes per day andworking your way up will make an impact. Pepe is consistency and frequency. Have a support person or manuel present when beginning for safety and guidance. Start slow and reevaluate in a week and then a month. Here are some general tips that are helpful if done daily. Perform lower extremity exercises to improve strength of the leg muscles. This will help prevent blood from pooling in the legs when standing and walking. Preferred exercises are walking, squatting, foot peddle bike, and use of a stationary bicycle. If you are able to walk when counting steps, use your phone, a Pure360 bit, or life logging device to count steps. Gauge your daily steps and over time increase them. Example: 3000 steps per day. Do 300 per hour to 3000 total per day. Seated chair yoga and sandro chi for balance helps. This helps with inspiration and expiration to improve heart rate variability. These options can be found online also. Seated recumbent bike and even a foot peddle bike at home depending on the level of disability of the patient can help be beneficial. A Counting steps program with graduating accumulation of steps in the day should be started. A walking program even if one takes 50 steps every hour during wakefulness should be done and over time evolve to more steps per interval. If indicated, physical therapy locally for more muscle strength and to maintain gait/balance. SOCIAL MEDIA Social Media can be a great resource and a way to connect with people who share your diagnosis. However, it is important to be mindful of the content posted. Everyone has a different journey. Be sureyour information comes from a reliable source and do not take medical advice from social media--always contact your clinicians to review relevant information specific to your condition and follow your own medical plan of care. SALT LOADING: The loading of salt can be 3-5 grams per day if it is permitted. Some will do salt tablets which can be purchased over the counter. Take with food since can cause nausea. Encourage patients to add salt to nutrient rich food or consume salty foods. (Avoid default foods such as potato chips that are calorie rich but nutrient poor.) Veggie, Chicken, and Beef Broths are good ways for hydration and salt. Pickles and olives are salty snacks. Salt and water loading the patient may note more bloating and increased BMI. More abdominal and pelvic girth can occur. Watch for any elevated blood pressure readings. LEG SWELLING: Can occur from the blood pooling from the orthostatic issues. The legs may even turn blue, red, and pale. Some may have even livedo reticularis. Treating the orthostatic disorder will help. Compression stockings knee high, thigh high, and even panty hose can help. Pressure grade 20-30 or higher can be tried to see what helps and is comfortable. Wear them for a few hours in the day, while walking, and mild activity. They are not recommended to wear during sleep. Elevate legs up above the heart repeatedly during the day to reduce swelling. If possible, repeatedly do the legs on the wall yoga maneuver. This can be done while lying in bed. SLEEP: Sleep can be a challenge due to aspects of typical chronic health issues of inconsistent sleep schedule, inactivity, medication effects and even mental health aspects of chronic disease (worriment, rumination of the future, uncertainty). Keep the room the ideal temperature for your comfort. Keep technology out of the room such as tablets, cellphones, TV, and laptops as they can maintain wakefulness. If you cannot sleep, get out of bed for 30 minutes or so to read and then go back to bed. Melatonin 3-10 mg to take 2 hours before sleep can help. Review in your next routine medical appointment if this is an option for you. We try to avoid typical sedatives if possible as they can potentiate orthostatic issues. Many orthostatic patients have nocturnal symptoms especially due to lack of body movement and reduced circulation of the blood. POTS patients due to the adrenergic response can have more supine chestpain, racing heart rate, restless sleep, nightmares, sweating, and awakenings. Go to bed and wake up at the same time daily including weekends. Do not nap more than 30 minutes during the day. PAIN: Many patients may have pain from orthostatic issues Inactivity causes joint stiffness. Exercise and gentle range of movement of the joints will often relive stiffness. Headaches and neck pain from hypo perfusion (an orthostatic headache and coat changer fixer syndrome lay down and goes away.) Treating the orthostatic syndrome may help, but some may still have pain. Review with clinician in follow-up. Think about what makes pain better and what makes it worse and describe during appointment. COMPRESSION STOCKINGS AND GARMENTS: They do help, but can be a struggle. Help from your clinician as well as determining personal preference and effectiveness are pepe. Please note, it may be difficult to wear compression gear in the heat and make sure not to wear to bed. Below are a few general guidelines. Compression stockings to the knee 20-30 mm Hg above the knee thigh high 20-30 mm HG Compression stockings to hip level /panty hose help since most of the blood is in the pelvic area Abdominal binder can be helpful Arm compression sleeve Spanx High waisted leggings GI HEALTH: Many?autonomic?patients have associated GI complaints of bloating, reflux, diarrhea, constipation and IBS. If you notice any food that trigger discomfort, be mindful. Maintaining hydration helps orthostatic self-care and GI health also. Some of the purchased electrolyte drinks may cause GI symptoms. Find which one works for you or make your own hydration drink following the WHO recipe found earlier in this document. Supplements of magnesium oxide 400 mg twice or three times per day can help with constipation. Please check with your provider before starting any new supplements. BLADDER?DYSFUNCTION: This can be a common complaint for?autonomic?patients. Due to inactivity many patients will develop some pelvic floor?dysfunction?and thus benefit from pelvic floor exercises throughout the day to strengthen these muscles. Sometimes the symptoms are challenging to decipher objectively and will need a Urology consult to address. Dry Mouth and Dry Eyes: Often the patient may have dry eyes and mouth symptoms. Eye exam by an top cager to evaluate diagnostically for dry eyes and if needed over the counter or prescription treatments. Dry mouth can be common from routine medications. With dry mouth please see your dentist for best plan of oral hygiene and care. MENTAL HEALTH: Most patients with this disease from the impact and struggle of daily life will go through various emotions. We encourage patients and their support person to pursue counseling for skills to live with chronicdisease. In depression and anxiety medications like SSRI s and SNRI s may help with less impact on orthostatic. These medications may be prescribed by medical providers in follow-up visits if indicated. IV FLUIDS: We generally do not support the chronic use of IV fluids for orthostatic patients. [facility] History of Present illness Narrative* Irma Garsia RN - 04/25/2022 1:47 PM EDT RN received form for [place] of workers compensation. Will give to provider to review and sign. Irma Garsia RN documented in this encounterC[facility]03[facility] Miscellaneous Notes* Telephone Encounter - Haleigh Lugo RN - 04/24/2022 10:35 AM EDT [place], Pt feels that modafinil is not working. States that she is so tired that she is barely leaving bed.Has been almost falling asleep during the day. R arm has been heavy and numb/weak for the past 2 days. Bad body aches all over, nausea w/ eating, small appetite, non-stop dizziness, lightheaded to the point where it is hard to walk. Went to urgent care on 04/15, a couple days after vertigo attack. Went d/t increase in SOB, dizziness, nausea, fever, runny nose, etc. Did get dx with UTI and URI. Has been on Augmentin since then. States it does make her dizzy. States that she will also be starting menses any day now which knows that this can make POTS worse.Also states that she had a large amount of blood work on Sunday. States there are many factors a play, which is why she wants to be transparent. Still thinks modafinil is playing a huge role . Is interested in trying another medication that you suggested. Haleigh Lugo RN, BSN, BA documented in this encounterC[facility]03[facility] History of Present illness Narrative* [facility] 12[facility]22 PM EST GROUP HEALTH [facility]OR[facility] MODEL MAKER COHORT Patient was part of an in-person, group health coach tour driver session. Patient received education and participated in discussion about modifiable lifestyle factors and healthy habits, with emphasis on the role of the health coach tour driver within the functional medicine model and the Wheel of Wellness. Other topics of discussion included Functional Medicine process and scheduling for follow-up visitsand support prior to next visit. ................................................................................ ....................... FOLLOW UP: Additional support needed: 30-Minute Phone Consultations with Health Intensive Care Anaesthetist in 4 weeks Time Spent with Patient: 30 minutes Signed by: Samreen Burns documented in this encounterC[facility]03-[facility]23 Instructions* Patient Instructions* [facility]20/[facility]22 12:22 PM EST Images from the original note were not included. [facility] HEALTH [facility] MODEL MAKER FOLLOW-UP At the [facility], we focus on the person as a whole: Mind, Body, and Spirit. Working with your Health Intensive Care Anaesthetist on a regular basis can help you prioritize your next steps and builda strong foundation for healing. Our goal is to ask the right questions while empowering you to discover your own solutions and determine your own path for creating the health you desire. Our focus is on establishing your desired outcomes, working with you to overcome challenges and on determining practical action steps for implementing lifestyle changes. Staff Health Intensive Care Anaesthetist Follow-Up Timeframe: Within 1-2 Weeks with Functional Medicine Health Intensive Care Anaesthetist (Enedelia or Samreen) Schedule your initial 1:1 health coaching appointment and/or Mindfulness group coaching session Schedule by calling the appointment center ([phone] option #1) or through [employer] self-scheduling More information about our Mindfulness group coaching program can be found here: [email or web address] 2. Sign up for the [employer] to order your supplements 3. Create a [facility] account to access the Functional Health Coaching Portal Review the Wheel of Wellness self-assessment tool in preparation for your first 1:1 appointment How to Access the Functional Health Coaching Portal: To access [facility], please visit: [email or web address] to create a new account. Step 1: Create Your Account: Complete the following manning: username, password, email address, first name & last name. Click 'Create My New Account'. A message will display. Click continue. Step 2: Verify Your Account: Check your email for an email from [facility]. In the email, click thelink provided to launch [facility] and complete registration. Step 3: Enroll in the 'Functional Health Coaching Portal'. Once you have launched [facility], hoverover the Find Learning tab, and click on the drop-down option 'Courses'. Search for the course Functional Health Coaching Portal in the search field. In the search results, click the link to access the course. Step 4: Enter the Enrollment [place] Functional Coaching (this is case sensitive). Step 5: To login after enrollment, visit [email or web address]. Login under 'Non-Employee Login' using the username and password from step #1. If you have difficulty accessing this course, please email ADDITIONAL INSTRUCTIONS: How to Contact Your Functional Medicine Team (Open M-F 8am-5pm): MyChart is the BEST form of communication to reach the Functional Medicine Team, see test results and request refills. Please allow 72 business hours for a response. Directions for signing up are included in your New Patient Folder. (Or you can go to [email or web address]) Ordering Supplements: Supplements can be ordered from the [facility]'s Online Store: [email or web address] New patients to the e27 will need to enter the provider code FUNCTIONAL to registertheir account. Post-Visit Shared Medical Appointment To schedule for the post-visit Shared Medical Appointment, call [phone] option 1. When you call, advise that you would like to be scheduled for the Post-Visit SMA. Caregivers are available 24-7 to assist. Topics covered include: Scheduling process Accessing your After Visit Summaries (AVS) Assistance with accessing [facility] portals Assistance with ordering supplements through the e27 Clarification on test kit instructions Additional Functional Medicine programs available to you documented in this encounterC[facility]03-[facility]23 Miscellaneous Notes* Telephone Encounter - Parish Lanier MD - 04/20/2022 10:00 AM EST Speech therapy for improving cognitive functioning requested Parish Lanier MD documented in this encounterCinc[facility]03[facility] History of Present illness Narrative* Alvin Huddleston DO - 04/18/2022 4:35 PM EST Yolanda Aparicio is a 26 year old female. SHARED MEDICAL APPOINTMENTS: Patient is at home I spent a total of 60 minutes on the date of the service which included [id number] patient care, completing clinical documentation, communicating results to the patient/family/caregiver, and care coordination (not separately reported). JOSE Scientific Advances in and Clinical Approaches to Small-Fiber Polyneuropathy A Review Rajni Barrett MD, PhD; Jenifer Galeas MD, PhD AMA Neurol. 2019;76(10):6599-8705. doi:[email or web address] Published online October 21, 2018. Corrected on December 16, 2018. Here is some information from our site about neuropathy/skin nerve biopsy, and qsart What is neuropathy? Neuropathy--also called peripheral neuropathy--refers to any condition that affects the normal activity of the nerves of the peripheral nervous system. The peripheral nervous system is the network ofnerves that connects the central nervous system--the brain and spinal cord--to the rest of the body. The peripheral nervous system is made up of three types of nerves, each with an important role to play in keeping your body healthy and functioning properly. Sensory nerves carry messages from your senses through your spinal cord to your brain. For example,they tell your brain you are touching something hot. Motor nerves travel in the opposite direction. They carry messages from the brain to your muscles. They tell your muscles to move you away from the hot surface. Autonomic nerves are responsible for controlling body functions that occur outside our control, such as breathing, digestion, heart rate, and blood pressure. Neuropathy results when nerve cells, or neurons, are damaged or destroyed. This distorts the way the neurons communicate with each other and with the brain. Neuropathy can affect one nerve or nerve type, or a combination of nerves. What causes neuropathy? There are many causes of neuropathy. The cause can be hereditary (runs in families) or acquired (develops after ). Hereditary neuropathy The most common hereditary neuropathy is Zokhvpp-Wrmgr-Jeshu (CMT) disease, which affects both motor and sensory nerves. CMT affects about one in 2,500 people in the [place]. CMT causes weakness in the foot and lower leg muscles. Deformities of the feet are also common, making it difficult towalk and often resulting in falls. In its later stages, CMT can also affect the muscles in the hands. There is no cure for hereditary neuropathy. Acquired neuropathy Acquired neuropathy is much more common. There are many causes of acquired neuropathy, including: Trauma -- This includes sudden injury from an event such as a fall, car accident or sports activity. Trauma to the peripheral nerves can also occur from compression of the nerves due to repetitive stress or narrowing of the nerve space. Infections and autoimmune disorders -- Among the germs that can damage nerve fibers are human immunodeficiency virus (HIV), the herpes virus, and the bacteria that cause Lyme disease and syphilis. Some autoimmune disorders can also affect nerve tissue. Examples include Guillain-Arroyo syndrome, systemic lupus erythematosus, and rheumatoid arthritis. Systemic diseases -- Systemic diseases are those that affect the entire body. These include diabetes--the leading cause of peripheral neuropathy--kidney disorders, certain cancers, and hormonal imbalances. Medications and poisons -- Some medicines, including the strong medicines used to treat cancer (chemotherapy), can damage peripheral nerves. Exposure to toxic substances such as heavy metals (including lead and mercury) and industrial chemicals, especially solvents, can also affect nerve function. Vascular disorders -- Neuropathy can occur when blood flow to the arms and legs is hindered by inflammation, blood clots, or other blood vessel disorders. Decreased blood flow deprives the nerve cells of oxygen, causing nerve damage or nerve cell . Vitamin imbalances -- Proper levels of vitamins E, B1, B6, B9, B12, and niacin are important for healthy nerve function. Alcoholism -- Excessive use of alcohol can fazal the body of thiamine and other essential nutrients, leading to neuropathy in the arms and legs. When the cause of the neuropathy cannot be determined, it is called idiopathic neuropathy. About 30to 40 percent of neuropathy cases are idiopathic. Another 30 percent are the result of diabetes. How common is neuropathy? Neuropathy is very common. It is estimated that about 25 percent to 30 percent of Americans will beaffected by neuropathy. Neuropathy occurs in 60 percent to 70 percent of people with diabetes. Who gets neuropathy? Neuropathy affects people of all ages; however, older people are at increased risk. It is more common in men and in Caucasians. People in certain professions, such as those that require repetitive motions, have a greater chance of developing compression-related neuropathy. What are the symptoms of neuropathy? Symptoms of neuropathy vary depending on the type and location of the nerves involved. Symptoms canappear suddenly, which is called acute neuropathy, or develop slowly over time, called chronic neuropathy. Common symptoms of sensory neuropathy include: Tingling Numbness, especially in the hands and feet Changes in sensation -- Some people feel severe pain, especially at night, and some are unable to feel pain, pressure, temperature, or touch. Loss of coordination Loss of reflexes Burning sensation Feeling that you are wearing socks or gloves when you are not Common symptoms of motor neuropathy include: Muscle weakness Difficulty walking or moving your arms or legs Muscle twitching Cramps Spasms Loss of muscle control Loss of muscle tone Loss of dexterity Falling Inability to move a part of the body Common symptoms of autonomic neuropathy include: Abnormal blood pressure or heart rate Decreased sweating Problems with urination Sexual dysfunction Diarrhea Weight loss (unintentional) Dizziness when standing up or fainting Nausea or vomiting Problems with digestion How is it diagnosed? The first step in making a diagnosis is a thorough history and physical examination. The information you provide can suggest to the doctor which nerves or nerve groups are involved -- motor, sensory,autonomic or a combination. Bloodwork and imaging tests can also provide information about a possible cause of your neuropathy. Your doctor might send you to a internet e commerce specialist for an electrodiagnostic assessment (EDX) to find the location and degree of nerve damage. EDX includes two tests: Nerve conduction study (NCS) -- During this test, small patches--called electrodes--are placed on the skin over nerves and muscles on different parts of your body, usually your arms or legs. A brief pulse of electricity is applied to the patch over a nerve to be studied. The doctor measures the time it takes for the nerve to stimulate the muscles to twitch. This is called the nerve conduction velocity, and it can tell if the nerve is effectively controlling the muscle s movement. Needle electromyography (EMG) -- An EMG can determine the health of a muscle by measuring its response to electrical activity. During an EMG, a very thin needle electrode is inserted through the skinto stimulate the muscle. The activity of the muscle is recorded on a graph called an electromyogram. In some cases, a nerve, skin, or muscle biopsy is needed to confirm the diagnosis. A biopsy is the removal of a small sample of tissue for examination under a microscope. How is neuropathy treated? Treatment begins by identifying and treating any underlying medical problem, such as diabetes or infections. Some cases of neuropathy, those that are hormonal or nutrition-related, for example, can be easily treated and sometimes cured. In most cases, however, neuropathy cannot be cured. Because neuropathy can have an impact on quality of life, treatment is aimed at controlling and managing symptoms. Treatment options include the following: Medicines can be used to control pain. Physical therapy uses a combination of focused exercise, massage and other treatments to help you increase your strength, balance and range of motion. Occupational therapy can help you cope with the pain and loss of function, and teach you skills to compensate for that loss. Surgery is available for patients with compression-related neuropathy, such as carpal tunnel syndrome. Mechanical aids, such as braces and specially designed shoes, can help reduce pain and allow for greater mobility. Proper nutrition involves eating a healthier diet and making sure to get the right balance of vitamins and other nutrients. Adopting healthy living habits, including exercising to improve muscle strength, quitting smoking, maintaining a healthy weight, and limiting alcohol intake. Can neuropathy be prevented? You can reduce your risk by treating any medical problems and adopting healthy living habits. If you have diabetes, it is especially important that you manage your blood glucose level. Diet and nutrition are also important for people with other disorders associated with neuropathy, such as kidney disease. What is the outlook? The overall outlook depends on the underlying cause of the neuropathy. Neuropathy rarely leads to if the cause is determined and controlled. The sooner the diagnosis is made and treatment is started, the greater the chance that nerve damage can be slowed or repaired. In most cases, recovery takes a very long time. Some people live with a degree of neuropathy for the rest of their lives. When should I see my doctor? If left untreated, peripheral neuropathy can lead to permanent nerve damage. It can also be a symptom of a serious disorder. It is important to see your health care provider immediately as soon as you notice symptoms. References: The Neuropathy Association, Inc., Neuropathy. www.neuropathy.org Accessed 03/14/2010 [employer] [place] of Diabetes and Digestive and Kidney Diseases. National Diabetes Information Clearinghouse. Diabetic Neuropathies: The Nerve Damage of Diabetes. diabetes.niddk.nih.gov Accessed 03/14/2010 [employer] [place] of Neurological Disorders and Stroke. Peripheral Neuropathy Information Page. www.ninds.nih.gov Accessed 03/14/2010 Copyright 2667-[address] [facility]. All rights reserved Cutaneous Nerve Laboratory/skin nerve bx [facility] Cutaneous Nerve Laboratory, one of only a few in the country, has been createdto improve diagnosis and research in small fiber sensory neuropathy. Small fiber sensory neuropathy is a common neuromuscular disorder associated with many medical conditions, including diabetes mellitus, amyloidosis, HIV infection, connective tissue diseases, and pharmacological neurotoxicity. It is also not uncommon to be idiopathic, especially in elderly patients. The clinical presentation usually consists of cutaneous pain, numbness and autonomic dysfunction, which can lead to significant functional impairment. Some patients may predominantly present with pain, which is subjective. A sensitive and specific diagnostic tool is thus essential for making correct diagnosis and rendering appropriate subsequent management. Skin nerve biopsy Small caliber nerve fibers consist of somatic (type C and Ad fibers) and autonomic fibers. They play pepe roles in cutaneous nociception, thermoreception, and autonomic function. Autonomic function can be assessed by quantifying sweat output and measuring cardiovascular regulation. Since not all patients with small fiberopathy have both somatic and autonomic involvement, assessing somatic fibers is very much desired. These fibers are small and many are unmyelinated with very slow conduction velocities; therefore, their conduction responses cannot be captured and evaluated by routine nerve conduction studies. This gap has previously been filled by a histological method to evaluate cutaneous nerve fiber density. By immunostaining using the panaxonal marker, protein gene product 9.5 (PGP 9.5), of skin biopsies, intraepidermal small nerve fibers (IENF) become visible and can be assessed both morphometrically and morphologically. IENF density evaluation is not only a powerful technique for diagnosing small fiber sensory neuropathy, but also a valuable tool for research of this disease. Since 3-mm punch skin biopsy is minimally invasive and well-tolerated, it can be safely repeated to monitor disease progression and treatment response. It has been used in the past to study neuropathies associated with various conditions, including diabetes mellitus, AIDS, leprosy, Fabry disease and postherpetic neuralgia. Trials are planned on small fiber neuropathy by using IENF density evaluation as one of the outcome measurements. This technique will also be useful in basic research to study molecular mechanisms underlying small fiber degeneration and regeneration to develop better clinical intervention To help in your diagnosis and can watch over and over again (even share or view with your support people) Search on the internet , FLAQUITO ORTHOSTATIC EXERCISE ( It is on YOUNouscoUBE) Go to PLAYLIST and there is about one hour of 14 short videos streamed together that helps to teachand explain about POTS called LEARNING ABOUT POTS. LEARNING ABOUT POTS on FLAQUITO ORTHOSTATIC EXERCISES Please go to FLAQUITO ORTHOSTATIC EXERCISE on YOUTUBE It is 100 minutes that can help improve your life as did others. For others in your life who support you share the playlist on FLAQUITO ORTHOSTATIC EXERCISE on [employer]coUBE, I love someone with POTS and want to learn These videos will help to educate and familiarize as compliments in the road to recovery and help with POTS We recommend to watch repeatedly 1-3 times at least for Weeks 1-2: Also you can have daily educational with Dr. Huddleston on [employer] : POTS FLAQUITO There are other videos to help with exercise that we can guide as well for dizziness, neck pain, pelvic floor, breathing work, self care, and vagal tone to explore If there is an urgent issue seek urgent care or medical level ER care. If needed review or see your PCP For POTS patients recommend to use the POTS manual, flaquito orthostatic exercise video on youNeurodynube for educational, utilize your chronic self care tools, attend more share medical appointments are recommended POTS Manual: Read the POTS manual online. This will help you understand your POTS diagnosis, work with your medical team, and includes detailed instructions and tips for improved daily living with POTS. [email or web address] Reminder that with health conditions that most medications and other care treatments including rehabilitation /exercise programs need 3-4 months to work . With chronic health conditions may need evenlonger to work if one has been ill and suffered. TIP: We are recommending also for patients in this time of ramped up use of social media to be mindful to check content for accuracy. Also when one post especially think about before posting since can be forever and can have lasting impact on others with hurtful, shaming, hazing, and harm. Often social media posts can be traced back to sender easily in time stamped and content. Sterile Inflammation: The nervous system can create its own inflammatory response. This is not autoimmune, but just inflammation. This response of the nervous system can lead to neuron excitement that is sustained called neuro excitatory and with secondary inflammation. This is how fibromyalgia and migraines behave as well POTS. Some first treatments with anti inflammatory may help these conditions may help, but the core work is approaches of neurological of treating of like a circuit of re wiring via neurological medications, wellness, education work for insights, health psychology, biofeedback, and this work creates new circuits to stop this reaction BENNIE can be false + in women especially in chronic health disease reviewed Over activation of neuro excitatory with growing research can lead to more inflammation and growingdata of muscle pain, joint pain, and even some data of like in fibromyalgia small fiber neuropathy Data of COVID with sustained response reviewed and this ongoing above reviewed and how is similar Pick one activity that is even fun and pleasure to show your brain and body some mormon and solace/peace. Do it daily 5-10 minutes a day at least. Does not have to be even medical. GUT The gut is the second brain Most of serotonin that helps mood, stamina, and pain is in gut. Gut does not work will feels worse in these aspects Adrenaline stops the ability to rest and digest and thus more pain, bloating, IBS, and less good nutrients. More skin isues (acne, eczema, rosacea, dry skin, hair loss,dry hair), leaky gut, normal bacteria leaves, and more digestion challenges /food intolerance Swallow issues /gag/ voice changes since is vagal and adrenaline will make this vagal not work . Gargling, singing, brushing tongue exercises help correct. If can gargle with salt water helps also Most of immune system is in the gut and can lead to much food challenges. Even can be challenge to know what is mast cell and not. Often getting gut right with probiotics, control of POTS, and diet changes to help gut healing helps reduce issue of the gut being inflamed and what may be or could be mast cell . Sugar is very irritating to the gut can cause laxative effect. Also ties into why we may see that dairy, wheat, white food, gluten free is better, and less refined foods are better for pots. The sugar and the altered gut state can lead to poor absorption that lead to sugar spikes, reactive hypoglycemia, and sugar dumps. Adrenaline also leads to insulin use and sugar changes of up and then drop. Sugar spikes and drop leads to fatigue, anxiety, depressive feeling, headache, skin changes, weight up and down, and more. Why being sugar reduced is pepe and helps in POTS. FODMAP diet. Hydration drinks with less sugar and also avoid artificial sweeteners (the artificial sweeteners causes confusion to the body and spike insulin still sense there is sugar). Diets best with small meals, hydration , water, proteins, good fats (ghee butter, olive oils,) veggies, and complex carbs through the day. Have to eat and train the gut as a muscle thus small meals in the day. Diet including polyphenol rich foods (colorful natural ), quercetin foods, and add tumeric help anti oxidants Supplements for helping neural excitable and mitochondrial healing Add each one every few weeks /take in am with good food Co Enzyme Q10 100 mg daily for 4 weeks then go 200 mg daily Alpha lipoic acid 600 mg daily NAD /nicotinamide adenine dinucleotide (NAD) 10 mg daily MAG stearate or glycinate 400 mg daily B12 1000 ucg daily Gut health : Less sugar to no white sugar [place] oils 1 gram daily Probiotics any type and add prebiotic foods Avoid processed foods, too much simple carbs, and too much dairy Any type of brand is good and can over time customize more as you want and learn, but start somewhere Again like any supplement can start small doses if want to adjust More tips: Hydrate with just water about 64 ounces in the day Eliminate sugar as much as can including natura types from the diet Eliminate simple sugars (refined carbs ) and reduce dairy. Small and frequent meals with proteins, complex carbs, veggies, and if use fats good oils (olive oil, avocado, walnut) . Less to no fried food Work on sleep schedule: Go to be same time and up same time with elimination of naps. Initially will be hard. Will have to get up the set time even do not rest well till the schedule sets into of this pattern of sleep pattern formation of the body be settled and wired in. Take small steps with diet and know there will be set backs along the way If have not done our exercise for POTS in the exercise [facility] then join us by my chart. If can do any simple exercise 10-15 minutes per day can use our flaquito orthostatic exercise utilizing the sandro chi,qi qong, and chair exercise. Do not have expensive brands or certain brands of supplements or foods Be patient. You have been ill for a long time. It can take 6 months for full benefit to see improvement of brain fog, gut health, stamina, and if has mast cell issues We always start with a discussion of POTS physiology. When you stand two water bottles of blood drop. To compensate, the body speeds up the heart in an effort to get blood to your brain so you don t faint. This is adrenaline and while it may feel terrible it is an autonomic protective mechanism. The brain controls the Autonomic Nervous System. The Sympathetic Nervous System is responsible for stress and survival and is why you feel the symptoms of adrenaline which include but are not limitedto: racing heart rate, chest pain, sweating, neck pain, fainting, near fainting, nausea diarrhea, bloating, frequent urination, skin tingling, ears ringing, heightened senses, inability to sleep, cannot think, brain fog, jerking limbs, muscle tightness and the list goes on... The Parasympathetic Nervous System is responsible for growth and repair, rest and digest. Some of you may notice a drop inheart rate after a sympathetic surge. The polyvagal symptoms may take over: the heart rate and blood pressure drop, you may feel cold, feel the sensation of rubber legs, defecate, urinate etc. This explains the cycle of Fight, Flight, and Freeze. Once your body gives way to adrenaline, you may become listless and exhausted feeling the rag doll effect. GI issues remain one of the constant and most common complaints of those with orthostatic issues. Many suffer with bloating, pain, constipation, and diarrhea. Adrenaline is a huge factor and has an impact on digestion. One cannot rest and digest if in adrenaline mode as the body is in survival mode--focused on other organs and self-preservation. A body in survival does not digest efficiently. The stomach is the second brain. After the brain, most nerve bundles and neurons are located in thegut and can work independent of the brain. Diseases may show in the gut as the first path of violation before presenting as a nervous system disorder. We all know the feeling of butterflies or stomach discomfort. Stomach discomfort can also present in times of acute or chronic stress. The brain gut connection is so strong we may feel nausea, may vomit, and may be unable to eat. 70% of the immune system is located in the gut. The entire GI system is filled with good and bad bacteria. Healthy and unhealthy bacteria. The gut being the second brain and is a good indicator of how well someone is feeling. If GI health is poor,the patient generally feels overall unwell. Adrenaline creates a hostile zone in the gut: bloating, IBS, pain, low serotonin can affect ones mood and cause sadness, pain, malaise depression, fatigue. Allergies food intolerance, mast cell are aresult of immune dysfunction. Leaky gut gets rid of good bacteria and when ones digestion is off they can experience hair loss, weight changes (up or down) acne, dry skin, dry mouth, eczema, and rosacea. 20% of POTS patients have delayed motility and 20% having rapid motility. Eat the best, leave the rest: Small meals, simple proteins Chicken/fish, Hydrate with water, avoid artificial chemicals and sweeteners, Probiotics for balancing and gut healing, supplement with oregano, dameon, and turmeric can also help. These changes take time to see a result. Starting with small doses are always best practice to see how one does when adding a new supplement. Sugar is public enemy number one: It is in a lot of food so check nutrition labels. There are limited amounts in natural foods. Sugaris a gut irritant/ laxative. Known irritants are dairy, wheat, gluten, refined carbs, and white foods. Sugar gives a jolt of energy and then drops it. Sugar can increase fatigue, mood, anxiety, panic attacks, depression, migraines, IBS. Sugar spikes insulin then drops it Adrenaline spikes insulin the drops glucose Gut disorders cause inconsistent glucose absorption The three above compete so it s best to reduce sugar intake found in natural foods such as veggies,complex carbs (brown rice for example) proteins, and good oils. Mast Cell and Food Allergen--start with correcting the gut and see if there is an improvement. We touched on swallowing issues. Swallowing us a vagal response. Some people may be unable to swallow pills, the feel like they are being strangled, lost voice, raspy, dryness, GERD, reflux. Too muchadrenaline. Gargling, salt rinse, tongue brushing, singing and chanting can also help. Treating POTS is essential as things in the body will start to balance. Hydrate with 64 ounces of water per day. Keep it low sugar and try to avoid artificial colors and artificial sweeteners. Moving the body helps the gut and is essential in POTS care. 5-15 minutes per day of wellness can show your brain and body that it can be an adrenaline free zone. Additional supplements to consider: Magnesium Stearate or Glycinate Oregano Pills [place] Oils Prebiotics and Probiotics COQ10 MG Daily Thank you for joining us and we look forward to seeing you in a future SMA. Let us start with discussing POTS physiology. When you stand two water bottles of blood drop. To compensate, the body speeds up the heart in an effort to get blood to your brain so you don't faint. This is adrenaline and while it may feel terrible it is an autonomic protective mechanism. The brain controls the Autonomic Nervous System. The Sympathetic Nervous System is responsible for stress and survival. The Parasympathetic Nervous System is responsible for growth and repair. Finding the balance between the Sympathetic and Parasympathetic for those of us living with POTS presents a challenge. The Sympathetic cardiac nerves increase and force of contraction, whereas the Vagus nerve (parasympathetic) decreases heart rate. The Baroreceptor sends signals to the brain. The brain is like a smartphone and creates memories from the experiences as is the case with adrenaline. The brain is tied into speeding up the heartrate and adrenaline. You may notice adrenaline surges coming at around the same time each day. That is the memory-make adrenaline and then do it again and again on a loop. A pattern of symptoms form such as pain, racing heart rate, headaches, and tingling. After this heightened form of adrenaline takes place, the polyvagal symptoms may take over: the heart rate and blood pressure drop, you may feel cold, feel the sensation of rubber legs, defecate, urinate etc. This explains the cycle of Fight, Flight, and Freeze. Once your body gives way to adrenaline, you may become listless and exhausted feeling the rag doll effect. This can last for hour to days. An effective way to lower heart rate is called the COLD EFFECT DIVE REFLEX: If you hold your breathand put your face in cold water, your heart will immediately slow down by 25%. Using a cold washcloth in a plastic sandwich bag can also help lower heart rate. Tongue on roof of soft palate slows heart rate: To perform, curl tongue back to touch the soft palate in the mouth. Your mouth may remain open a tad, make an R sound. Doing this numerous times in a day will reduce adrenaline symptoms such as lowering HR, decreased sweating, and decrease brain fog as well as jitteriness. Another effectiveexercise is performing the Valsalva maneuver to prevent palpitations. To do this 1. Pinch your nose, 2. Close your mouth, 3. Then try to breathe out. To explain at a more scientific and evolutionary level would be to talk about the Mammalian Diving Reflex: A Marine mammals' physiological response when stimulated by cold water submersion is the shunting blood from their peripheral tissues to their body's core. The increased blood volume in the core then stimulates a vagal response which produces profound bradycardia. This shunting of blood fromnon-essential organs and the lowered oxygen demand allows the diving mammal to remain underwater for a prolonged period. We also discussed nose breathing as it is much more effective than mouth breathing when it comes tocalming heart rate. Three breaths in, hold for 8, three breaths out. Over time with proper care, the heart rate is controlled by exercise and medication, but remember it is possible to still feel POTS symptoms with normal vitals. The idea is through wellness modalities to create new memories and files. By realizing this is occurring, being patient with oneself and mi ndfulness, relaxation, and decluttering rework the circuits for more positive experiences The brain does get involved with POTS. The baroreceptor does have localization sites into the brainstem. This is why we can see in head injury cause POTS. Also the brain getting activate in adrenergic state of flight or fight or freeze can cause more than just typical body or heart rate symptoms, but also the brain symptoms of jittery, cannot think, confused at times, restless, headaches, dizzy, jerky limbs, tight muscles, pain, ,less hope, and less creative. The brain as we said is in downstairs mode of the lower center operating and more of the amygdala . This can become more automatic and the default response. The brain is a circuit and remembers this is what it is to do. Recognizing this as occurring is pepe and next steps is to show your brain is okay to learn new ways of circuits is pepe. New ways are via wellness, exercise, medication at times, and even health psychology. We have health psychology here to show nervous system new ways to be again, relaxation tools. Biofeedback, and tips for living with a disease. We can offer this health psychology by sending a [employer] message to us . POTS CHAT--BRAIN MEMORIES-- Let us start with discussing POTS physiology. When you stand two water bottles of blood drop. To compensate, the body speeds up the heart in an effort to get blood to your brain so you don t faint. This is adrenaline and while it may feel terrible it is an autonomic protective mechanism. While manypeople think most POTS patients faint, in reality only about 15% of those with POTS do. POTS symptoms include Tachycardia, lightheadness, brain fog, body pain, GI issues, numbness and tingling limbs,and these are just to name a few--we all know the symptoms can run the gamut. Dizziness is also a chief complaint and can be described in a multitude of ways. Some of us feel like we re rocking on a boat, many have trouble driving, and functioning through the day is also a major challenge when one has vestibular issues. We always start with a discussion of POTS physiology. When you stand two water bottles of blood drop. To compensate, the body speeds up the heart in an effort to get blood to your brain so you don t faint. This is adrenaline and while it may feel terrible it is an autonomic protective mechanism. The brain controls the Autonomic Nervous System. The Sympathetic Nervous System is responsible for stress and survival and is why you feel the symptoms of adrenaline which include but are not limitedto: racing heart rate, chest pain, sweating, neck pain, fainting, near fainting, nausea diarrhea, bloating, frequent urination, skin tingling, ears ringing, heightened senses, inability to sleep, cannot think, brain fog, jerking limbs, muscle tightness and the list goes on... The Parasympathetic Nervous System is responsible for growth and repair, rest and digest. Some of you may notice a drop inheart rate after a sympathetic surge. The polyvagal symptoms may take over: the heart rate and blood pressure drop, you may feel cold, feel the sensation of rubber legs, defecate, urinate etc. This explains the cycle of Fight, Flight, and Freeze. Once your body gives way to adrenaline, you may become listless and exhausted feeling the rag doll effect. Thank you again. Your attendance of the Shared Medical Appointment and involvement in the POTS community is pepe to your success and those who come behind you. Please look at POTS body movement techniques at [employer] orthostatic exercises - YouTube, and please follow our Instagram page [email or web address]. Please take advantage of all of these tools available to you. We are committed to your journey toward restored wellness. We look forward to seeing you again in future SMA s. To schedule the ZOOM POTS SMA please call during Sunday-Sunday 9 am - 4 pm , Please be patient with the phone line as we are in midst of reopening during the pandemic phase We are honored and glad to have you part of the SMA for POTS Welcome to ZOOM POTS SMA (SHARED MEDICAL APPOINTMENTS) We have learned at the [facility] and especially in my work and our department that POTS thatthere is so much to learn to live well with this condition. So much of the emphasis needs to be on life tips of education, body awareness, community, exercise , daily life tips, and the psychology of living well with POTS. 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 We have even published the benefit of the SMA for POTS. We used to do the SMA in person, but during the pandemic we are starting to do them via ZOOM. For years I have been wanting to do the SMA as a virtual format like ZOOM. The ZOOM SMA is a safe space to be supported. We do request to allow your face to be seen and courtesy language. The session is about 90 minutes long. We will have a topic, questions, and answers. The sessions are not recorded. POTS Manual: Read the POTS manual online. This will help you understand your POTS diagnosis, work with your medical team, and includes detailed instructions and tips for improved daily living with POTS. [email or web address] YouTube: [email or web address] orthostatic exercise Instagram: POTS FLAQUITO Orthostatic Your body has a network of blood vessels made up of arteries, veins, and capillaries. The heart pumps blood into the arteries, which carry the blood throughout the body. Blood pressure is the pressure or force of blood pushing against the schuster of the arteries. Blood pressure is written as two numbers; for example, 120 over 80 millimeters of mercury. The first number is the systolic pressure. This is the pressure in the arteries when the heart beats and fills them with blood. The second number is the diastolic pressure. This is the pressure in the arteries when the heart rests between beats. Orthostatic hypotension is a condition in which your blood pressure falls significantly when you stand up quickly. (Hypotension is low blood pressure.) What are the symptoms of orthostatic The main symptom of may even faint. Other symptoms include: Blurred vision Nausea Disorientation or confusion Feeling weak Fatigue Falling Chest pain Neck pain Cognitive disorder Challenge in breathing Base of neck pain and head pressure Breathing challenge when standing up Legs become weak/ walking challenge/rubbery legs Rebound or surge in blood pressure spikes especially when laying down These symptoms usually clear up when you sit or lie down for a few minutes. THIS NOTE IS FOR AT FIRST FOR MY DOCUMENTATION TO PROVIDE CARE, HELP INSURANCE COMPANY AND COLLEAGUES TO HAVE NEUROLOGICAL CONTEXT OF MY , AND FOR MY PERSONAL RECORDING TO FACILITATE FUTURE CARE BY HAVING A WRITTEN DOCUMENT MEMORY OF OUR CONSULT TOGETHER . THANK YOU FOR UNDERSTANDING THIS OFFICE NOTE IS A PHYSICIAN BASED DOCUMENT FOR COMMUNICATION AND CARE. 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 sodium chloride 1 gram tab TAKE 1 TABLET BY MOUTH 3 TIMES A DAY *TAKE WITH FOOD* gabapentin (NEURONTIN) 100 mg capsule Take 2 capsules by mouth twice daily. (taken with 300mg capsule) hydrOXYzine HCl (ATARAX) 10 mg tablet Take 1 tablet by mouth three times daily as needed. gabapentin (NEURONTIN) 300 mg capsule 1 capsule 2x/day tiZANidine (ZANAFLEX) 4 mg tablet Take 1 tablet by mouth daily at bedtime. ondansetron orally disintegrating (ZOFRAN ODT) 4 mg disintegrating tablet Take 4 mg by mouth once daily as needed. ibuprofen (MOTRIN) 200 mg tablet Take 200 mg by mouth as needed. acetaminophen (TYLENOL) 500 mg tablet Take 500 mg by mouth as needed. No current facility-administered medications on file prior to visit. 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 If need more salt in water some may add a pinch of water to the water or even Himalayan salt if can tolerate the taste. Electrolyte beverages be mindful of sugar content, dyes, and artificial sugars since can cause bloating, diarrhea, brain fog, headaches, and allergies. Low sugar to no sugar and dyes drinks with of course no caffeine is a goal. Salt loading if causes bloating just do in diet with foods. Diet: people notice sugar, dairy, and gluten/ wheat bother so a diet with less to reduce of the sugar, dairy, to processed carbs help best. With diet proteins (chicken, fish )and good fats (olive oil, avocado oil ) with complex carbs are ideal (veggies, berries, quinoa, brown rice) Sleep : bed same time and up same time; Avoid naps. Eventually though rough will get on this schedule even though feels a challenge Wellness: find something in the day to keep mind body spirit going that helps keep the mind and show the mind that is not in always aware of adrenaline state (journaling, knitting, puzzles, prayer, meditation, breathing, etc . Show the mind and body it can be free of adrenaline fight or flight state Move the body to keep the blood flowing and muscle strong. Can start even with flaquito orthostatic chair exercise or sandro chi /qi qong Probiotics help gut health since most have IBS issues (any brand to get started is a good start) Breathing work: Inspiration heart rate increases with (sympathetic response) based on blood going to lungs and need compensate to get blood shuffle and with expiration heart rate slows down (parasympathetic) . Exercise of amplifying of parasympathetic is to breath response. Take slow breathe inspiration over 3 seconds and then breathes over 5 seconds out with expiration (do exercise via nostril breathing) Alvin Huddleston D.O ELECTRONICALLY SIGNED April 18, 2022 Adult Neurology/ Board Certified Director of Autonomic Center Department of Neuro Muscular of the Neurological Stickney Candy Attendant for Neurology Clerkships Clinical Baby Counselor of Neurology Physician Advisor for the [facility] of Neurology Speech Correction Assistant of Mistreatment and Neglect [facility] School Faculty Appointment [facility] Faculty Appointment [facility]ica Professor [facility] of Medicine of [facility] / TAX ID: [id number] [address]/ [id number] [place] [id number] / consult requested for an opinion regarding the evaluation and treatment of POTS My final impression and recommendations will be communicated back to the requesting physician by way of the shared medical record or letter via US [id number]/ Welcome There are videos /playlist/podcast to viewed and helped for exercises and wellness for POTS and Orthostatics Instructions: . HELP WITH MEDICAL PROVIDERS IN LOCAL CARE NOT PART OF THE [facility] To help be successful in care locally with the limits of virtual, my chart , phone calls, and limited in person appointments. This tips sheet helps patients and medical providers. This tips are for guidance and general themes. We do not want them to be customized into individualmy chart message questioning and repeated messages Dear Colleague, This is a tip sheet collaboration to help along in our shared work with the orthostatic to give context and approaches we do with orthostatic patients in our care in the Autonomic Department and you can also bridge into your practice. Thank you for the collaborative work Doctor Guidance for Autonomic Dysfunction SIMPLE FYI ON ORTHOSTATIC MEDICATIONS 1. Florinef: Dosing 0.1 mg at once or twice per day. May need to watch for hypokalemia 2. Midodrine: 2.5 mg daily to 20 mg tid. Have to watch for rebound HTN. 3. Pyridostigmine (60 -240 mg) has helped autonomic symptoms via cholinergic stimulations without raising the BP. 4. POTS patients to control adrenergic symptoms may need beta blockers, calcium channel blockers, and ivabradine. MEDICATIONS OF ORTHOSTATICS, REVIEW OF MEDICATIONS AND SUPPLEMENTS AND BP CHECKS 1. If your clinical discretion is prompted you can hold the medication for the day or longer, but remind the patient and the support person to be careful worsening of syncope and falls. 2. Can if resuming medications can go back and 1/4 to /12 dose 3. SBP > 170 or DBP > 95 over consistent readings is a concern 4. For BP readings we do recommend the patient or support person to check the BP and pulse about three times sitting in the am before coming to the appointment 5. REVIEW ALL MEDICATIONS AND SUPPLEMENTS IN EACH VIIST THAT CAN BE CONTRIBUTORY TO ORTHOSTATICS. SUCH MEDICATIONS ARE ANTI HYPERTENSIVES, ANTI CHOLINERGICS, ANTI PSYCHOTICS, AND MANY BLADDER TREATING MEDICATIONS. SOME POTS PATIENTS WILL NEED BETA BLOCKERS AND CALCIUM CHANNEL BLOCKERS TO CONTROL THE ADRENERGIC VITALS AND SYMPTOMS. ROUTINE LABS: We recommend to use your general medical discretion as any patient to check labs. 1. On Florinef to check potassium 2. Some of the POTS patients are more prone to hypokalemia and may be worthwhile and no interval oftime needed to check potassium. 3. B12 is associated with orthostatic disorder 4. If SICCA is a concern an BENNIE, anti tipton, and anti rho may be helpful 5. If Mast Cell Disease comes up to check an tryptase (concern is > 20 and will need referral toAllergy/Immunology) 6. Thyroid Function Test 7. CBC and CMP annually with any medications of concern EXERCISE: AND REHAB CARE Exercise does help orthostatic patients greatly. Though it seems to be miserable and not feasible for this condition, it does help control symptoms and often improve them. 1. POTS patients bene?t with cardiac rehab. There is repeated data of the cardiac rehab model for POTS to improve and reduce symptoms. At the Clinic the cardiac rehab is a one-time visit and the patient is given the template to do independently. Locally, the cardiac rehab division may help in routine visits. Also utilize free information. Internet search and print the pots manual on the [facility] website POTS Manual: Read the POTS manual online. This will help you understand your POTS diagnosis, work with your medical team, and includes detailed instructions and tips for improved daily living with POTS. [email or web address] POTS [facility] CARDIAC REHAB PROGRAM for patients. 2. Seated chair yoga and if patient can tolerate, sandro chi for balance helps. Also this work helps with inspiration and expiration to help heart rate variability. 3. Seated recumbent bike and even a foot peddle bike at home depending on the level of disability of the patient can help and should be encouraged. 4. Counting steps program with graduating accumulation of steps in the day should be encouraged. A walking program even if the patient just takes for example 50 steps every hour during wakefulness should be encouraged and over time evolve to more steps per interval. 5. PT locally for more muscle strength and maintain gait/balance. 6. Some due to neck pain and the coat changer fixer of neck muscle orthostatic hypo perfusion will developdizziness and vertigo. Vestibular rehab for cervical vertigo may be needed. 7. Gait dysfunction can be for many reasons the underlying neurological diagnosis and inclusive of the impact of deconditioning. There is an orthostatic gait disorder of the elderly where syncope hasto be considered in sudden unexplained falls. SALT LOADIN. The loading of salt can be 3-5 grams per day if it is permitted. 2. Some will do salt tablets that are purchased over the counter. Take with food since can cause nausea. 3. Encourage patients to add salt to nutrient rich food or consume salty foods. (Avoid default foods such as potato chips that are calorie rich but nutrient poor.) 4. Veggie, Chicken, and Beef Broths are good ways for hydration and salt. 5. Pickles and olives are salty snacks. 6. Salt and water loading the patient may note more bloating and increased BMI. More abdominal and pelvic girth can occur. HYDRATION: This matters greatly for orthostatic patients 1. Maintaining 64 -84 ounces per day if allowed with other health issues per day is pepe. 2. Challenges are older persons who will not want to drink as much to avoid night time and frequenturination. We encourage early am hydration. 3. Water helps and is free. Tap water is ?ne. 4. Patients can purchase electrolyte solutions. Again be mindful of cost and if also cause GI symptoms of nausea, bloating, and diarrhea (see under GI health step 7.) 5. Watch if a concern for hyponatremia by ua and bmp. LEG SWELLING: Can occur from the blood pooling from the orthostatic issues. The legs may even turn blue, red, and pale. Some may have even livedo reticularis. 1. Treating the orthostatic disorder will help. 2. Compression stockings knee high, thigh high, and even panty hose can help. 3. Having the patient elevate the legs up above the heart repeatedly during the day will help. 4. If possible, repeatedly do the legs on the wall yoga maneuver. 5. Often legs swell from inactivity. Orthostatic exercise can help greatly. SLEEP: Sleep can be a challenge due to aspects of typical chronic health issues of inconsistent sleep schedule, inactivity, medication effects and even mental health aspects of chronic disease (worriment, rumination of the future, uncertainty). 1. Having the patient maintain same sleep schedule with bed at the same time and awakening the sametime daily is pepe. Try to avoid naps. Keeping the room in the ideal temperature control helps. Keeptechnology out of the room such as tablets, cellphones, TV, and laptops with the screen light that can maintain wakefulness. If patient cannot sleep, have them get up out of bed for 30 minutes or so to read and then go back to bed. 2. Melatonin 3-10 mg to take 2 hours before sleep can help 3. We try to avoid typical sedatives if possible 4. We avoid TCA medications for sleep since can potentiate orthostatic issues 5. Remeron/mirtzatipine 7.5-45 mg at HS can be used for sleep 6. Beta blockers at HS is used for POTS patients to control the adrenergic symptoms 7. Many orthostatic patients have nocturnal symptoms especially due to lack of body movement and reduced circulation of the blood. POTS patients due to the adrenergic response can have more supine chest pain, racing heart rate, restless sleep, nightmares, sweating, and awakenings. The pure autonomic failure, neurogenic orthostatic hypotension, autonomic neuropathy, Parkinson s, and multisystem atrophy patients due to the baroreceptor dysregulation response to help can still have supine HTN events (see below). PAIN: Many patients may have pain from orthostatics. 1. Some have small ?cooper neuropathy that is associated that can cause pain. Typical medications except TCA (due to promoting orthostatic issues) may help nerve pain. 2. Some of the POTS patients have Ehler-Danlos Syndrome that has joint disorder and neuropathy associated. 3. Inactivity causes joint stiffness. 4. Headaches and neck pain from hypoperfusion (there is an orthostatic headache and coat changer fixer syndrome.) Treating the orthostatic syndrome may help, but some may still have pain. 5. Be mindful of medication overuse such as in headaches of medicament overuse and also opioate usedisorder that can amplify pain. Compression Stockings and Garments: They do help, but are a struggle. Encourage patients to try them and explore various modalities if can with medical and non- medical. Again, this can be costly for the patient. Sports brand and non-medical compression stockings and garments may give relief and thepatient may have to shop around to ?nd the right gramajo point for them. 1. Compression stockings to the knee 20-30 mm Hg 2. above the knee thigh high 20-30 mm HG 3. Compression stockings to hip level /panty hose help since most of the blood is in the pelvic area 4. Abdominal binder can be helpful 5. Arm compression sleeve 6. Spanx 7. Encourage the patient to explore and do various combinations of the above. Also to use the gear in different aspects of the day. Most times in hot weather is not permitted outside. Also most cannot wear to bed. GI HEALTH: Many autonomic patients have associated GI complaints of bloating, re?ux, diarrhea, constipation and IBS. 1. Some actually will have de?debra GI motility of gastric and/or colonic motility by gastric empty, colonic motility studies, or capsule endoscopy studies. POTS patients in publications may have rapidmotility due to the adrenergic response. 2. Reviewing all medications for impact or irruption of the GI system is always good. 3. Treating for GERD is helpful. 4. Treating with typical routine care of medication and diet for diarrhea and constipation is helpful. Having the patient follow food triggers may help. Some may bene?t with FODMAP diet for IBS. 5. Maintaining hydration that helps orthostatic self-care helps GI health also. 6. For some the excessive salt loading may contribute to nausea and diarrhea, should be deciphered,and have the patient cut back to see if this is a factor. 7. Some of the purchased electrolyte drinks may cause GI symptoms. Have the patient cut back or change to another form of care to see if this is a factor for their GI symptoms. 8. Some patients need to see GI for evaluation of ulcers, celiac, and consequence of refractory issues of dysmotility. 9. Supplements of magnesium oxide 400 mg bid or tid can help constipation. BLADDER DYSFUNCTION: This can be a common complaint for autonomic patients. 1. POTS patients due to the adrenergic issues have often urgency and frequency symptoms. 2. Due to inactivity many patients will develop some pelvic ?oor dysfunction and thus bene?t with pelvic ?oor physical therapy to strengthen these muscles. 3. Frequent UTIs and Kidney Infections should prompt a Urology consult for bladder atonia and potential urodynamics studies. 4. All routine medications and supplements need to be reviewed that can bother the bladder function. 5. Sometimes the symptoms are challenging to decipher objectively and will need a Urology consult to address. SICCA SYMPTOMS: Often the patient may have dry eyes and mouth symptoms without having diagnostic evidence of Sjogren s Syndrome (lip biopsy.) 1. Eye exam by an top cager to evaluate diagnostically for dry eyes and if needed over the counter or prescription treatments. 2. Dry mouth can be common from routine medications and need to be reviewed as potential culprits. 3. With dry mouth the patient should be referred to the dentist for best care and plan. 4. The patient should be careful with dry mouth not to over use some sugar free treatments for dry mouth since can promote diarrhea and IBS. 5. Dameon in food and supplements may help some dry mouth. 6. If need pilocarpine tablets may be needed. MENTAL HEALTH: Most patients with this disease due to the impact and struggle of daily life of the change of self, burden, uncertainty, and grief will go through various emotions. 1. We encourage patients and their support person to pursue counseling for skills to live with chronic disease. 2. In depression and anxiety medications like SSRI may help with less impact on orthostatic. 3. Medications like Duloetine and Venfaaxline are not as ideal for POTS but the other orthostatic conditions. Actually these medications may help mental health and higher dose raise the BP. The POTS patients due to these drugs mechanism of action may aggravate the adrenergic symptoms. 4. Periodically check for depression, anxiety, and for even conceding SI, SA, HI, [place]. IV FLUIDS: We generally do not support the chronic use of IV ?uids for orthostatic and POTS patients. We also do not condone the use of a port for most patients. Most patients with routine orthostatic care will not need this treatment. 4. MY CHART, we encourage patients to use this portal for medical issues only and to send a brief 1-2 sentences issue. Large messages will encourage a needed virtual appointment perhaps. 5. The patient can always ?nd their of?ce visit in the MY CHART portal. 6. Care Everywhere if EPIC is shared will have our of?ce notes. 7. We encourage all our patients to have a local family medicine team to work with since we cannot handle medical issues by MY CHART, phone call, and are not able to immediately see a patient. 8. The POTS patients can request also the POTS ER letter if needed to have with them for ER and Urgent Care needs. 9. Some Orthostatic and POTS patients may need either or both a Neurologist and a Manager Store locally to be part of their care. DISABILITY: 1. Many of the patients may not be able to work. Due to the diverse scope of the work we do at the Clinic we sincerely cannot attest or keep up with the paperwork for disability. We can at times write of support for disability, but not be the main medical provider of the paperwork. POTS Manual: Read the POTS manual online. This will help you understand your POTS diagnosis, work with your medical team, and includes detailed instructions and tips for improved daily living with POTS. [email or web address] ORTHOSTATIC TIPS Orthostatic Dysfunction--Daily Living Tips Living with a disorder of the autonomic nervous system is life altering. Making lifestyle changes in order to thrive in their day to day and long-term is essential. Orthostatic disorder occurs when the upright positioning of the body causes variable blood pressurechanges that induce symptoms. Your body has a network of blood vessels made up of arteries, veins, and capillaries. The heart pumps blood into the arteries, which carry the blood throughout the body. Blood pressure is the pressure or force of blood pushing against the schuster of the arteries. Blood pressure is written as two numbers--Systolic (top number) and Diastolic (bottom number) for example a normal blood pressure would be read as 120/80. The first number, systolic pressure is the pressure in the arteries when the heart beats and fills them with blood. The second number, diastolicpressure is the pressure in the arteries when the heart rests between beats. Orthostatic hypotension is a condition in which your blood pressure falls significantly when you stand up quickly. The main symptoms of orthostatic disorder is dizziness and feeling lightheaded upon standing. In some cases, people with orthostatic hypotension may even faint. Other symptoms include: Blurred vision Nausea Disorientation or confusion Feeling weak Fatigue Falling Chest pain Neck pain Cognitive disorder Difficulty breathing Base of neck pain and head pressure Weak, rubbery legs, difficulty walking Rebound or surge in blood pressure spikes especially when laying down These symptoms usually clear up when you sit or lie down for a few minutes. BEST PRACTICE DAILY TIPS Please make all postural changes from lying to sitting to standing slowly Drink 2-2.5 liters of fluid per day. On a bad day or with worsening of symptoms, drink 500 cc of water quickly. This will result in an increase in blood pressure within five minutes of drinking the water with the effect lasting up to one hour. In the case of Congestive Heart Failure and Hypertension or any other medical condition with salt restrictions, please follow clinician recommendations regarding fluid and sodium intake. Avoid large meals which can cause low blood pressure during digestion. Eat smaller frequent meals throughout the day. Meals rich in carbohydrates can create more orthostatic symptoms. Avoid alcohol as it can worsen low blood pressure upon standing. Limit caffeine intake as it may increase urine production and reduce blood volume. Compression stockings while somewhat uncomfortable do help those with disorders of the autonomic nervous system. High-waisted leggings can also help as do abdominal binders which are very helpful. Purchase a blood pressure cuff to monitor blood pressure and pulse. Take your vitals per guidance of your provider. Also, when feeling unwell check your vitals and keep a log. This is so providers may review in the future. HYDRATION There are many commercially produced hydration and sports drinks available. If you choose, you can make your own beverage using the recipe from the World Health Organization. This can be cost effective and is free of preservatives. Maintaining 64 -84 ounces per day as long as it is not contraindicated due to other health issues is pepe. Drinking earlier in the day avoids as much to avoid frequent and nighttime urination. Water helps and is free. The recipe is from the World Health Organization (WHO) and is as follows: Filtered (tap or bottled) 1 liter of drinking/tap Mix with teaspoon of salt, six (6) teaspoons of sugar or sugar substitute Let cool This will give you five cups ESSENTIAL PHYSICAL ACTIVITY Part of the daily care involves moving the body. Exercise does help orthostatic patients live better lives. Though it seems challenging, it helps control symptoms and often improve them. Those with this disorder can become physically deconditioned quickly as a result of long periods ofactivity. . The type of exercise and level of difficulty as well as time spent vary from person to person and should be determined by your clinician. Even starting for five to ten minutes per day andworking your way up will make an impact. Pepe is consistency and frequency. Have a support person or manuel present when beginning for safety and guidance. Start slow and reevaluate in a week and then a month. Here are some general tips that are helpful if done daily. Perform lower extremity exercises to improve strength of the leg muscles. This will help prevent blood from pooling in the legs when standing and walking. Preferred exercises are walking, squatting, foot peddle bike, and use of a stationary bicycle. If you are able to walk when counting steps, use your phone, a fit bit, or life logging device to count steps. Gauge your daily steps and over time increase them. Example: 3000 steps per day. Do 300 per hour to 3000 total per day. Seated chair yoga and sandro chi for balance helps. This helps with inspiration and expiration to improve heart rate variability. These options can be found online also. Seated recumbent bike and even a foot peddle bike at home depending on the level of disability of the patient can help be beneficial. A Counting steps program with graduating accumulation of steps in the day should be started. A walking program even if one takes 50 steps every hour during wakefulness should be done and over time evolve to more steps per interval. If indicated, physical therapy locally for more muscle strength and to maintain gait/balance. SOCIAL MEDIA Social Media can be a great resource and a way to connect with people who share your diagnosis. However, it is important to be mindful of the content posted. Everyone has a different journey. Be sureyour information comes from a reliable source and do not take medical advice from social media--always contact your clinicians to review relevant information specific to your condition and follow your own medical plan of care. SALT LOADING: The loading of salt can be 3-5 grams per day if it is permitted. Some will do salt tablets which can be purchased over the counter. Take with food since can cause nausea. Encourage patients to add salt to nutrient rich food or consume salty foods. (Avoid default foods such as potato chips that are calorie rich but nutrient poor.) Veggie, Chicken, and Beef Broths are good ways for hydration and salt. Pickles and olives are salty snacks. Salt and water loading the patient may note more bloating and increased BMI. More abdominal and pelvic girth can occur. Watch for any elevated blood pressure readings. LEG SWELLING: Can occur from the blood pooling from the orthostatic issues. The legs may even turn blue, red, and pale. Some may have even livedo reticularis. Treating the orthostatic disorder will help. Compression stockings knee high, thigh high, and even panty hose can help. Pressure grade 20-30 or higher can be tried to see what helps and is comfortable. Wear them for a few hours in the day, while walking, and mild activity. They are not recommended to wear during sleep. Elevate legs up above the heart repeatedly during the day to reduce swelling. If possible, repeatedly do the legs on the wall yoga maneuver. This can be done while lying in bed. SLEEP: Sleep can be a challenge due to aspects of typical chronic health issues of inconsistent sleep schedule, inactivity, medication effects and even mental health aspects of chronic disease (worriment, rumination of the future, uncertainty). Keep the room the ideal temperature for your comfort. Keep technology out of the room such as tablets, cellphones, TV, and laptops as they can maintain wakefulness. If you cannot sleep, get out of bed for 30 minutes or so to read and then go back to bed. Melatonin 3-10 mg to take 2 hours before sleep can help. Review in your next routine medical appointment if this is an option for you. We try to avoid typical sedatives if possible as they can potentiate orthostatic issues. Many orthostatic patients have nocturnal symptoms especially due to lack of body movement and reduced circulation of the blood. POTS patients due to the adrenergic response can have more supine chestpain, racing heart rate, restless sleep, nightmares, sweating, and awakenings. Go to bed and wake up at the same time daily including weekends. Do not nap more than 30 minutes during the day. PAIN: Many patients may have pain from orthostatic issues Inactivity causes joint stiffness. Exercise and gentle range of movement of the joints will often relive stiffness. Headaches and neck pain from hypo perfusion (an orthostatic headache and coat changer fixer syndrome lay down and goes away.) Treating the orthostatic syndrome may help, but some may still have pain. Review with clinician in follow-up. Think about what makes pain better and what makes it worse and describe during appointment. COMPRESSION STOCKINGS AND GARMENTS: They do help, but can be a struggle. Help from your clinician as well as determining personal preference and effectiveness are pepe. Please note, it may be difficult to wear compression gear in the heat and make sure not to wear to bed. Below are a few general guidelines. Compression stockings to the knee 20-30 mm Hg above the knee thigh high 20-30 mm HG Compression stockings to hip level /panty hose help since most of the blood is in the pelvic area Abdominal binder can be helpful Arm compression sleeve Spanx High waisted leggings GI HEALTH: Many?autonomic?patients have associated GI complaints of bloating, reflux, diarrhea, constipation and IBS. If you notice any food that trigger discomfort, be mindful. Maintaining hydration helps orthostatic self-care and GI health also. Some of the purchased electrolyte drinks may cause GI symptoms. Find which one works for you or make your own hydration drink following the WHO recipe found earlier in this document. Supplements of magnesium oxide 400 mg twice or three times per day can help with constipation. Please check with your provider before starting any new supplements. BLADDER?DYSFUNCTION: This can be a common complaint for?autonomic?patients. Due to inactivity many patients will develop some pelvic floor?dysfunction?and thus benefit from pelvic floor exercises throughout the day to strengthen these muscles. Sometimes the symptoms are challenging to decipher objectively and will need a Urology consult to address. Dry Mouth and Dry Eyes: Often the patient may have dry eyes and mouth symptoms. Eye exam by an top cager to evaluate diagnostically for dry eyes and if needed over the counter or prescription treatments. Dry mouth can be common from routine medications. With dry mouth please see your dentist for best plan of oral hygiene and care. MENTAL HEALTH: Most patients with this disease from the impact and struggle of daily life will go through various emotions. We encourage patients and their support person to pursue counseling for skills to live with chronicdisease. In depression and anxiety medications like SSRI s and SNRI s may help with less impact on orthostatic. These medications may be prescribed by medical providers in follow-up visits if indicated. IV FLUIDS: We generally do not support the chronic use of IV fluids for orthostatic patients. [facility] History of Present illness Narrative* Judy Gamez PSYD - 04/15/2022 6:40 PM EST [facility] Long COVID Support Group Virtual Group Psychotherapy Group time: 10:30am Length of Session: 75 minutes Today's visit was conducted by: [facility] Video Visit. Pt was located within the [facility] at thetime of the visit. Patient's presenting problem and technical skills were appropriate to telehealth. Session #2/6 Patients attended session 2 of a six week psychoeducational and support group intervention for psychological factors affecting management of post-acute sequelae of COVID-19. Group members shared regarding experience of last group meeting. Environmental Protection Officer(s) engaged group participants in a discussion regarding self-compassion and self-care. Group ended with a brief loving kindness meditation. Specific Patient Observations: Ms. Aparicio was an attentive during the session. She did not participate much in discussion, however, did share some podcasts she recommended. Her pre-visit questionnaires had an endorsement of thoughts of being better off or of hurting herself. Suicide risk was assessed in an individual session this week and risk was low. There was no evidence risk level had changed. Mood appeared euthymic. Patient Entered Data PHQ-9 Score: 12 (04/13/2022 10:47 AM) (0-4) minimal depression, (5-9) mild depression, (10-14) moderate depression, (15-19) moderately severe depression, (20-27) severe depression ROSE MARIE-7 Total Score: 7 (04/13/2022 10:47 AM) (0-4) minimal anxiety, (5-9) mild anxiety, (10-14) moderate anxiety, (15-21) severe anxiety Mental Status Exam: General/Sensorium: AO X 4 - Appearance: Appears well groomed and stated age - Demeanor: Appropriately interactive - Motor Activity: Normal - Speech: Appropriate - Affect: Euthymic - Thought Process: Linear, logical, and goal-directed - Associations: Normal - Thought Content: Appropriate with no SI/HI/AVH - Perceptions: The patient does not appear internally stimulated - Cognition: Appears intact in regards to memory, attention/concentration, fund of knowledge and language skills - Insight: Good - Judgment: Good - Diagnosis: (F43.10) PTSD (post-traumatic stress disorder) (primary encounter diagnosis) (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 Judy Gamez PSYD documented in this encounterC[facility] History of Present illness Narrative* Judy Gamez PSYD - 04/12/2022 2:08 PM EST GENERAL PSYCHOLOGY Session #: 11 Today's visit was conducted by: [employer] Video Visit Pt identity verified: Yes Location verified: pt at home in [place] Privacy concerns related to pt's present environment discussed: Yes Telehealth Risk Benefit Analysis A) Consistency of presenting problem with use of telehealth services: Engaging effectively in talk therapy which is appropriate to telehealth. B) Client knowledge and skills to use technology: Continues to have the knowledge and skills to participate in telehealth. SUBJECTIVE: Discussed how she is doing now compared to how she was feeling Sunday when having vertigo attack Discussed thoughts and feelings expressed in recent [employer] messages (see 04/08) Has some thoughts about suicide but has no current intent or plan OBJECTIVE: Some behavioral observations limited due to visit being conducted virtually Mental Status Exam: General/Sensorium: AO X 4 - Appearance: Appears well groomed and stated age - Demeanor: Appropriately interactive - Motor Activity: Normal - Speech: Appropriate - Mood: Angry and Anxious - Affect: Congruent with mood - Thought Process: Linear, logical, and goal-directed - Associations: Normal - Thought Content: Appropriate with no SI/HI/AVH - Perceptions: The patient does not appear internally stimulated - Cognition: Appears intact in regards to memory, attention/concentration, fund of knowledge and language skills - Insight: Good - Judgment: Good - ASSESSMENT: Yolanda Aparicio was actively engaged in the session and demonstrated motivation towards therapy goals. Suicide risk was assessed today. Pt does not appear at imminent risk of suicide due to passive ideation, lack of plan or intent. Will likely benefit from continued psychotherapy to support management of mood and anxiety. 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 Judy Gamez PSYD documented in this encounterC[facility]02-28-[facility] Miscellaneous Notes* Telephone Encounter - Haleigh Lugo RN - 04/11/2022 12:11 PM EST Office aware of denied C9's. Haleigh Lugo RN, BSN, BA * Telephone Encounter - Jodee Faustin - 04/11/2022 12:03 PM EST Received outside medical records [facility] & [facility] documented in this encounterCincinnati [facility]02[facility]27[facility]23 Miscellaneous Notes* Telephone Encounter - Haleigh Lugo RN - 04/10/2022 4:37 PM EST [place], Requests that you look over messaged with Dr. Gamez and Dr. Sandoval to see where she is at mentally and physically. Is unsure if modafinil is is causing these effects? Does not feel it is causing the lows (expressedthis Dr. Gamez). Is not sure if it is causing physical symptoms (expressed this to Dr. Sandoval)? States that she has had 6-7 attacks since LITO , randomly. Could be a coincidence. States that she is truly over this by the message she has sent Dr. Hopkins and Dr. Aponte. States that she wants to w/d care from all her providers. Is tired of going through this for so long and having no right answer or cure. States it is depressing and angering. States that this makes her hate herself as she feels her body is failing her. She states that everyone is so mean . States that she is sick of picking herself up /. States that she is clearly not strong enough and she feels that she is a lost cause. States maybe the stuff that people say is right . Unsure what this means. Thinks that you should know what is going on. Dr. Gamez wants to switch gears in individual therapy sessions and do some trauma processing instead of exposure therapy. Will discuss this further in next appt with her. Dr. Aponte already gave her suicide hotline, 911, ER, etc. Dr. Lori CASIANO is prior to pt seeing him on 03/17/2022. Haleigh Lugo RN, BSN, BA documented in this encounterCincinnati [facility]02-27-2023 Miscellaneous Notes* Telephone Encounter - Judy Gamez PSYD - 04/10/2022 10:18 AM EST Phoned pt - left voicemail. Will try again later today. Judy Gamez PsyD Psychologist [facility] 04/10/2022 documented in this encounterCincinnati [facility]02[facility]27-[facility] History of Present illness Narrative* Judy Gamez PSYD - 04/10/2022 8:52 AM EST [facility] Long COVID Support Group Virtual Group Psychotherapy Group time: 10:30am Length of Session: 75 minutes Today's visit was conducted by: [employer] Video Visit. Pt was located within the [facility] at thetime of the visit. Patient's presenting problem and technical skills were appropriate to telehealth. Session #1/6 Patients attended session 1 of a six week psychoeducational and support group intervention for psychological factors affecting management of post-acute sequelae of COVID-19. Informed consent was esigned by patients and discussed in group. Patients were invited to ask questions about consent form and (if applicable) questions answered. Patients were reminded of the limits of confidentiality in the group setting and agreed to hold in confidence all matters discussed in the group. Group rules were reviewed. Patients introduced themselves and shared their experiences with Long COVID. We discussed symptoms of Long COVID, emotional impacts of long COVID, and coping with symptoms. Patients also participated in a mindfulness exercise. Specific Patient Observations: Ms. Aparicio was an active participant in the session. She did demonstrate an understanding of the material presented. Shared that she got COVID at work, has been a long hauler for over two years, and has developed POTS, and cognitive deficits. She would like to not let it define her life. Patient Entered Data PHQ-9 Score: 10 (04/06/2022 10:07 AM) (0-4) minimal depression, (5-9) mild depression, (10-14) moderate depression, (15-19) moderately severe depression, (20-27) severe depression ROSE MARIE-7 Total Score: 8 (04/06/2022 10:07 AM) (0-4) minimal anxiety, (5-9) mild anxiety, (10-14) moderate anxiety, (15-21) severe anxiety Mental Status Exam: General/Sensorium: AO X 4 - Appearance: Appears well groomed and stated age - Demeanor: Appropriately interactive - Motor Activity: Normal - Speech: Appropriate - Mood: Anxious - Affect: Congruent with mood - Thought Process: Linear, logical, and goal-directed - Associations: Normal - Thought Content: Appropriate with no SI/HI/AVH - Perceptions: The patient does not appear internally stimulated - Cognition: Appears intact in regards to memory, attention/concentration, fund of knowledge and language skills - Insight: Good - Judgment: Good - Diagnosis: (F42.2) Mixed obsessional thoughts and acts (primary encounter diagnosis) (G90.A) POTS (postural orthostatic tachycardia syndrome) (F43.10) PTSD (post-traumatic stress disorder) (U09.9) Post-acute sequelae of COVID-[address] ([facility]) Plan: Pt to return for remaining sessions of group as scheduled. Judy Gamez PSYD documented in this encounterCincinnati [facility] History of Present illness Narrative* Jimenez Sandoval MD - 04/05/2022 2:03 PM EST Virtual Visit Last seen: 02/28/22 Overall status: no change Main symptoms: no change Patient has won her case though is expecting appeal brain fog / forgetfulness - no change overall Constant w/ fluctuation SOB - on/off, hours, on a daily basis More so with activity though can happen at rest Heart racing On/off A few seconds to a few minutes to hours On a daily basis Chest pain: Midsternal, heavy sensation, on/off, up to hours, on a daily basis Dizziness: general dizziness - no longer constant Lightheadedness On/off No more than an hour 3x/week? Headache: Last botox - April 2021 No longer getting headaches Neck pain: Not really Neck PT / VR: Energy: fatigued Constant w fluctuation Was started on modafinil - first dose was yesterday. [place] more tired / possibly less tired today Sleep: not the best Insomnia - no Frequent awakenings - sometimes Refreshed in am - less so than before Dx: Ongoing issues of chest pain, shortness of breath, tachycardia, dizziness and fatigue. Likely overlap between a peripheral vestibular disturbance, abnormal upper cervical and thoracic spine biomechanics, and a tendency toward orthostatic intolerance. Dominant issues of Post-COVID POTS Plan: Consider further current cervical / vestibular PTand adding thoracic PT with David Roche - will need to await [facility] approval [employer] paperwork completed / to be faxed Patient in agreement with plan cc: Misha Sy DO* (to sec*) Fazal Huddleston DO Shannon, Kyle, CNP Total Time: 25 min Virtual Visit performed using: Zoom Patient was accompanied by: Self Patient verbally consented to this electronic visit Patient-Entered Questionnaire Scores HIT-6 04/02/2018 KP HIT-6 58 Dizziness Handicap Scores 05/06/2020 04/19/2021 08/29/2021 Emotional Score - - - Emotional Score 14 24 24 Physical Score - - - Physical Score 8 18 20 Functional Score - - - Functional Score 16 22 22 Total Score - - - Total Score 38 64 66 PHQ-9 03/13/2022 03/13/2022 03/28/2022 Score 9 9 9 documented in this encounterCincinnati [facility]02-14-[facility] History of Present illness Narrative* Judy Gamez PSYD - 03/28/2022 9:03 AM EST Due to the federal emergency declaration and the need for ongoing mental health services, the following visit was completed virtually and informed consent obtained orally to reduce the risk of COVID-19 exposure. Oral consent to services related to virtual visits was obtained after information was sent via ReturnHauler or read to patient if SimGymt not available. GENERAL PSYCHOLOGY Session #: 10 Today's visit was conducted by: ReturnHauler Video Visit Pt identity verified: Yes Location verified: [address] Parking lot in [place] Privacy concerns related to pt's present environment discussed: Yes Telehealth Risk Benefit Analysis A) Consistency of presenting problem with use of telehealth services: Engaging effectively in talk therapy which is appropriate to telehealth. B) Client knowledge and skills to use technology: Continues to have the knowledge and skills to participate in telehealth. SUBJECTIVE: Won her hearing but there will be an appeal and it is temporary, so there is never a time that she is not stressed Discussed that PTSD and OCD are both possible explanations for fear of COVID, fear of being in public Not feeling anything (when asked about suicidal thoughts) Dealing with a lot more shortness of breath, chest bothering her, really really tired, struggling to exercise, trying to figure out how to push forward - anxiety medication helps with fear, thinks she is going into fight or flight Debated going to hospital Has tried some of the POTS techniques from Dr. Ward and they did work at the moment Discussed compulsions - feels like she has to clean every single thing, cannot relax, thinks she cleans because things are so out of control in her life - does different cleaning, not the same thing, can let dishes sit in the sink Feeling exhausted and having trouble getting herself off the couch, feels guilty Patient Data Generalized Anxiety Disorder Scale (ROSE MARIE-7) ROSE MARIE - 7 SCORES 03/08/2022 03/20/2022 03/28/2022 ROSE MARIE-7 Score 5 5 6 (0-4) minimal anxiety, (5-9) mild anxiety, (10-14) moderate anxiety, (15-21) severe anxiety Patient Health Questionnaire (PHQ-9) PHQ-9 03/13/2022 03/13/2022 03/28/2022 Score 9 9 9 (0-4) minimal depression, (5-9) mild depression, (10-14) moderate depression, (15-19) moderately severe depression, (20-27) severe depression PROMIS Global Health PROMIS Global Health - (T-Scores - the mean of general population = 50. Five points is a clinicallymeaningful difference.) 10/31/2021 01/17/2022 01/17/2022 Physical T-Score 32.4 37.4 37.4 Mental T-Score 28.4 28.4 28.4 [place] OCD Scale - Total Score: 17 (12/26/2021 3:26 PM) If the patient has BOTH obsessions and compulsions, total score thresholds are: 8-15 = Mild OCD 16-23 = Moderate OCD 24-31= Severe OCD 32-40 = Extreme OCD PCL-5 Total Score: 45 (10/18/2021 8:25 AM) 33 = proposed cut-off score for PTSD symptoms warranting further investigation until further psychometric work is available <33 = subthreshold symptoms of PTSD >24 PTSD is a clinical concern, 33-36 probable PTSD, >37 significant PTSD PCL-5 PCL-5 Total Score 1. Repeated, disturbing, and unwanted memories of the stressful experience?2. Repeated, disturbing dreams of the stressful experience? 10/18/2021 45 Quite a bit Not at all 04/18/2021 49 Quite a bit Not at all 09/22/2020 32 Quite a bit Not at all 33 = proposed cut-off score for PTSD symptoms warranting further investigation until further psychometric work is available <33 = subthreshold symptoms of PTSD >24 PTSD is a clinical concern, 33-36 probable PTSD, >37 significant PTSD OBJECTIVE: Some behavioral observations limited due to visit being conducted virtually Mental Status Exam: General/Sensorium: AO X 4 - Appearance: Appears well groomed and stated age - Demeanor: Appropriately interactive - Motor Activity: Normal - Speech: Appropriate - Mood: Anxious and Reports feeling depressed - Affect: Congruent with mood - Thought Process: Linear, logical, and goal-directed - Associations: Normal - Thought Content: Appropriate with no SI/HI/AVH - Perceptions: The patient does not appear internally stimulated - Cognition: Appears intact in regards to memory, attention/concentration, fund of knowledge and language skills - Insight: Good - Judgment: Good - ASSESSMENT: Yolanda Aparicio was actively engaged in the session and demonstrated motivation towards therapy goals. Will likely benefit from continued psychotherapy to support management of mood and adjustment to disability. DIAGNOSIS: (F42.2) Mixed obsessional thoughts and acts (primary encounter diagnosis) (F43.10) PTSD (post-traumatic stress disorder) TREATMENT MODALITIES: DBT PROGRESS TO DATE: Intermediate Progress: Progress Short Term Condition: Progress GOALS/OBJECTIVES/INTERVENTIONS: Validate emotional experience Reframe unhelpful thinking SHORT-TERM OBJECTIVE/INTERVENTION: Reviewed with pt previously learned skills for POTS - applied tension technique Pt to give herself permission to relax Discussed idea of dialectics Pt to continue tracking exercise, would like to continue working on diet Pt to continue spiritual activities (bible reading) which are providing her benefit, usp goalwould be to go to restorationism in person Approximately 50 minutes were spent with the patient doing therapy. Judy Gamez PSYD documented in this encounterCincinnati [facility]02-13-2023 Miscellaneous Notes* Telephone Encounter - Celeste Jaramillo RN - 03/27/2022 3:33 PM EST MCM to pt. Celeste Jaramillo RN documented in this encounterCincinnati [facility]02-10-2023 Miscellaneous Notes* Telephone Encounter - Celeste Jaramillo RN - 03/24/2022 3:47 PM EST Received a letter from pt satellite manager outlining issues with the [employer] form. Call to patient to verify,she will let us know if any changes need made but believe this letter is referencing the previous [employer]. Celeste Jaramillo RN documented in this encounterCincinnati [facility]02-10-2023 Miscellaneous Notes* Telephone Encounter - Judy Gamez PSYD - 03/24/2022 2:38 PM EST Scheduled. * Telephone Encounter - Judy Gamez PSYD - 03/22/2022 9:56 AM EST This pt is waitlisted for the long-COVID support group. Is it possible to call them to confirm availability and schedule 6 group appointments on: 04/06 04/13 05/11 05/18 05/25 06/01 If the patient has any questions about the group please let me know and I will contact them. Thanks! Dr. Gamez documented in this encounterCincinnati [facility]02-09-2023 Miscellaneous Notes* Telephone Encounter - Haleigh Lugo RN - 03/23/2022 11:58 AM EST Last OV: 03/08/2022 Last Refill: 09/20/2021 F/U OV: 04/03/2022 Appropriate for refill. Routed to [place] for review. Haleigh Lugo, RN, BSN, BA * Telephone Encounter - Jodee Faustin - 03/23/2022 9:15 AM EST Call from patient requesting refill. Please E-Scribe. Requested Prescriptions Pending Prescriptions Disp Refills sodium chloride 1 gram tab 90 tablet 5 [facility]: [phone] documented in this encounterCincinnati [facility]02-09-2023 Miscellaneous Notes* Telephone Encounter - Esther Henson Pss - 03/23/2022 9:37 AM EST Physician: Lori Call from patient requesting refill. Please E-Scribe Last office visit 02/28/2022with Lori virtual Next office visit 04/05/2022 with Lori virtual Requested Prescriptions Pending Prescriptions Disp Refills gabapentin (NEURONTIN) 100 mg capsule 360 capsule 3 Sig: Take 2 capsules by mouth twice daily. (taken with 300mg capsule) Pharmacy Name: [facility] documented in this encounter[address]08-2023 History of Present illness Narrative* Wilma Mujica, RD - 03/22/2022 9:35 AM EST [facility] Nutrition Therapy: Virtual Consult - Re-assessment This visit was performed virtually due to the COVID-19 epidemic as an effort to protect patients and minimize exposure. Consent from patient received to conduct visit virtually. This Team Access Model visit is a virtual encounter. It required patient-provider interaction for the medical decision making as documented below. Nutrition Diagnosis: Behavioral-Environmental: Food and nutrition related knowledge deficit, related to, lack of prior exposure to information , as evidenced by client has no prior knowledge of need for food and nutrition - related information. RECOMMENDED MALNUTRITION DIAGNOSIS: NO MALNUTRITION IDENTIFIED NUTRITION CARE PLAN: Nutrition Intervention 03/22/2022: - Keep up the great work with limiting the frequency of eating out to once weekly and preparing healthier meals at home, as well as making healthier choices when dinning out. - As previously discussed, calorie goal should be between 0822-0866 calories a day with goal of 400-500 calories meals. - Maintain weekly exercise per POTS providers recommendations. Nutrition Monitoring & Evaluation: Weight loss of 1-2 pounds per week and adherence to above recommendations. Criteria: patient update and weight check Need for Follow up: 8 weeks PROGRESS: Patient presents for follow-up nutrition visit to discuss weight management/desire to lose weight. Since last visit, pt with a 10 lbs weight loss. Pt states she has made significant changes with bothexercise and diet since the beginning of February. Now incorporating more consistent activity per POTS providers recommendations which includes walking, the recumbent bike and light weights and resistant bands. With regards to eating, reports she is now limiting eating out to only once weekly and getting healthier items when eating out. Preparing healthier items at home, as well as has greatly reduced sugar sweetened/calorie containing beverages with likely continued success with goals of weightloss if all behaviors maintained. See all interventions/recommendations discussed during visit thisday. Nutrition Intervention from 01/25/22: - Continue to work on reducing the frequency of eating out and preparing healthier meals at home. - If eating out, keep up the good work with making healthier menu choices and reviewing the nutrition information prior to ordering to be able to make a healthier choice collectively. - As last discussed, calorie goal should be between 5416-5673 calories a day for now while weekly physical activity is limited. Remember, another way to think about this is 400-500 calories meals. - Maintain therapy weekly with POTS providers and follow exercise guidelines they provide. Actions to implement interventions: Pt provided Information: - Happy with 10 lbs weight loss since last visit - States she made positive changes starting in February with both exercise and making better dietarychoices - Incorporating more consistent activity per POTS providers recommendations (walking, recumbent bike and light weights/resistant bands) - Limiting eating out to only once weekly now and getting healthier items when eating out - Making healthier items at home such as protein muffins and chicken and soups - Snacks include pretzels OR popcorn - Beverages include water mostly throughout the day. 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 Resting Metabolic Rate: 1610 Malnutrition Screening Significant unintentional weight loss? No Eating less than 75% of usual intake for more than 2 weeks? No Potential Signs of Inflammation: no identifiable sources Nutritional status: Education Materials Provided: None this visit READINESS TO LEARN Cognitive ability: Alert and oriented Motivation to learn: Interested Family support: Unable to assess - Family not present Instruction provided to: Patient Patient learns best by: Multiple Methods Factors affecting learning: None Physical limitations affecting learning: None Likelihood of Adherence: Moderate Referred by: Self MNT Billing Type: Re-assess/15 min 3 units SIGNATURE: Wilma Mujica RD PATIENT NAME: Yolanda Aparicio DATE: 03/22/2022 TIME: 9:35 AM PAGER: [id number] documented in this encounterCincinnati [facility]02-07-2023 Miscellaneous Notes* Telephone Encounter - Celeste Jaramillo RN - 03/21/2022 8:39 AM EST MCM to pt. Celeste Jaramillo, RN documented in this encounterCincinnati [facility]02-06-2023 History of Present illness Narrative* Judy Gamez, MARKYD - 03/20/2022 9:11 AM EST Due to the federal emergency declaration and the need for ongoing mental health services, the following visit was completed virtually and informed consent obtained orally to reduce the risk of COVID-19 exposure. Oral consent to services related to virtual visits was obtained after information was sent via ReturnHauler or read to patient if SimGymt not available. GENERAL PSYCHOLOGY Session #: 9 (session count starts after PSYL NEW EVAL visit) Today's visit was conducted by: ReturnHauler Video Visit Pt identity verified: Yes Location verified: pt parked in her vehicle in [place] parking lot [facility] Privacy concerns related to pt's present environment discussed: Yes Telehealth Risk Benefit Analysis A) Consistency of presenting problem with use of telehealth services: Engaging effectively in talk therapy which is appropriate to telehealth. B) Client knowledge and skills to use technology: Continues to have the knowledge and skills to participate in telehealth. SUBJECTIVE: Stressed related to worker's comp case Feeling very frustrated, has not been to school Not feeling like she wants to but everything feels really heavy, mentally exhausting - does not know how she will feel if she gets bad news, but states I'm not saying I would act on it - if feels suicidal will reach out to professionals People always invalidating, tearing her down Discussed medication concern - advised pt to talk to medical doctor and/or pharmacist Will be seeing a psychologist for an evaluation as recommended by her satellite manager Patient Data Generalized Anxiety Disorder Scale (ROSE MARIE-7) ROSE MARIE - 7 SCORES 03/08/2022 03/08/2022 03/20/2022 ROSE MARIE-7 Score 5 5 5 (0-4) minimal anxiety, (5-9) mild anxiety, (10-14) moderate anxiety, (15-21) severe anxiety Patient Health Questionnaire (PHQ-9) PHQ-9 03/08/2022 03/13/2022 03/13/2022 Score 6 9 9 (0-4) minimal depression, (5-9) mild depression, (10-14) moderate depression, (15-19) moderately severe depression, (20-27) severe depression PROMIS Global Health PROMIS Global Health - (T-Scores - the mean of general population = 50. Five points is a clinicallymeaningful difference.) 10/31/2021 01/17/2022 01/17/2022 Physical T-Score 32.4 37.4 37.4 Mental T-Score 28.4 28.4 28.4 OBJECTIVE: Some behavioral observations limited due to visit being conducted virtually Mental Status Exam: General/Sensorium: AO X 4 - Appearance: Appears well groomed and stated age - Demeanor: Appropriately interactive - Motor Activity: Normal - Speech: Appropriate - Mood: Anxious and Angry - Affect: Congruent with mood - Thought Process: Linear, logical, and goal-directed - Associations: Normal - Thought Content: Appropriate with no SI/HI/AVH - Perceptions: The patient does not appear internally stimulated - Cognition: Appears intact in regards to memory, attention/concentration, fund of knowledge and language skills - Insight: Good - Judgment: Good - ASSESSMENT: Yolanda Aparicio was actively engaged in the session and demonstrated motivation towards therapy goals. Suicide risk was assessed today. Pt does not appear at imminent risk of suicide due to passive ideation lack of current intent or plan. Will likely benefit from continued psychotherapy to supportmanagement of ongoing traumatic triggers. DIAGNOSIS: (F42.2) Mixed obsessional thoughts and acts (primary encounter diagnosis) (F43.10) PTSD (post-traumatic stress disorder) TREATMENT MODALITIES: DBT PROGRESS TO DATE: Intermediate Progress: Progress Short Term Condition: Progress GOALS/OBJECTIVES/INTERVENTIONS: Validate emotional experience Reframe unhelpful thinking Support boundary-setting/assertive communication SHORT-TERM OBJECTIVE/INTERVENTION: Discussed evaluation vs treatment, that I cannot do disability evaluations because I am already treating her and it is a specialized assessment Advised regarding passive SI if it gets worse to call [phone], go to emergency room, call friend, [facility] Understands can also reach out to professionals and we will respond, but are also not conference services director / for emergencies so needs the above back up plan Approximately 60 minutes were spent with the patient doing therapy. Judy Gamez PSYD documented in this encounterCinc[facility]02-03-2023 Miscellaneous Notes* Telephone Encounter - Celeste Jaramillo RN - 03/17/2022 5:05 PM EST Called pt by phone, discussed [employer] which is nearing completion. Celeste Jaramillo RN * Telephone Encounter - Celeste Jaramillo RN - 03/17/2022 4:09 PM EST Retro C9 form signed by ADRIAN and faxed to [phone]. Celeste Jaramillo RN documented in this encounterCincinnati [facility]01-30-2023 Miscellaneous Notes* Telephone Encounter - Judy Gamez PSYD - 03/13/2022 4:04 PM EST Pt needs weekly appointments, has my permission to schedule up to [address] Gamez documented in this encounterCincinnati [facility]01-30-2023 History of Present illness Narrative* Judy Gamez PSYD - 03/13/2022 3:09 PM EST Due to the federal emergency declaration and the need for ongoing mental health services, the following visit was completed virtually and informed consent obtained orally to reduce the risk of COVID-19 exposure. Oral consent to services related to virtual visits was obtained after information was sent via ReturnHauler or read to patient if ReturnHauler not available. GENERAL PSYCHOLOGY Session #: 8 Today's visit was conducted by: ReturnHauler Video Visit Pt identity verified: Yes Location verified: pt at home in [place] Privacy concerns related to pt's present environment discussed: Yes Telehealth Risk Benefit Analysis A) Consistency of presenting problem with use of telehealth services: Engaging effectively in talk therapy which is appropriate to telehealth. B) Client knowledge and skills to use technology: Continues to have the knowledge and skills to participate in telehealth. 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 - hoping she will be in a better place then with PTSD Patient Data Generalized Anxiety Disorder Scale (ROSE MARIE-7) ROSE MARIE - 7 SCORES 02/15/2022 03/08/2022 03/08/2022 ROSE MARIE-7 Score 4 5 5 (0-4) minimal anxiety, (5-9) mild anxiety, (10-14) moderate anxiety, (15-21) severe anxiety Patient Health Questionnaire (PHQ-9) PHQ-9 03/08/2022 03/13/2022 03/13/2022 Score 6 9 9 (0-4) minimal depression, (5-9) mild depression, (10-14) moderate depression, (15-19) moderately severe depression, (20-27) severe depression PROMIS Global Health PROMIS Global Health - (T-Scores - the mean of general population = 50. Five points is a clinicallymeaningful difference.) 10/31/2021 01/17/2022 01/17/2022 Physical T-Score 32.4 37.4 37.4 Mental T-Score 28.4 28.4 28.4 OBJECTIVE: Some behavioral observations limited due to visit being conducted virtually Mental Status Exam: General/Sensorium: AO X 4 - Appearance: Appears well groomed and stated age - Demeanor: Appropriately interactive - Motor Activity: Normal - Speech: Appropriate - Mood: Labile - Affect: Congruent with mood - Thought Process: Linear, logical, and goal-directed - Associations: Normal - Thought Content: Appropriate with no SI/HI/AVH - Perceptions: The patient does not appear internally stimulated - Cognition: Appears intact in regards to memory, attention/concentration, fund of knowledge and language skills - Insight: Good - Judgment: Good - ASSESSMENT: Yolanda Aparicio was actively engaged in the session and demonstrated motivation towards therapy goals. Suicide risk was assessed today. Pt does not appear at imminent risk of suicide due to passive ideation, lack of plan or intent. Will likely benefit from continued psychotherapy to support management of anxiety reduce avoidance behaviors. DIAGNOSIS: (F43.10) PTSD (post-traumatic stress disorder) (primary encounter diagnosis) (F42.2) Mixed obsessional thoughts and acts TREATMENT MODALITIES: Cognitive Behavioral Therapy to cognitive restructuring, DBT PROGRESS TO DATE: Portal Administrator Progress: Progress Short Term Condition: Progress GOALS/OBJECTIVES/INTERVENTIONS: Validate emotional experience Reframe unhelpful thinking Support boundary-setting/assertive communication Approximately 50 minutes were spent with the patient doing therapy. Judy Gamez PSYD documented in this encounterCincinnati [facility]01-30-2023 Miscellaneous Notes* Telephone Encounter - ZENON Rudd - 03/13/2022 11:23 AM EST Documents were faxed to [facility] on Sunday03/10/2022. Confirmation page was received. Patient called today stating [facility] had not gotten back with her regarding receipt of C9 forms. Requested a copy be sent to her via [employer] or email. Admin informed patient the documents would be sent via email first thing in the morning due to trouble accessing email at this time. * Telephone Encounter - ZENON Rudd - 03/10/2022 10:55 AM EST Patient called frustrated that the C9 requested has still not been signed. Patient states she has a very important hearing next week and is only waiting for Dr. Nichols's signature. All other doc have completed form. Just getting the forms to the doctors was a huge process, I'm just kind of fed up because this is taking forever and my life is on the line Admin informed patient as soon as papers were received I would scan a copy into chart for patient to see as well as send it directly to [facility]. Patient requests that I inform Dr. Nichols the urgency and importance of this document. Admin informed patient that Dr. Nichols will be made aware if she hasn't been already. documented in this encounterCincinnati [facility]01-27-2023 Miscellaneous Notes* Telephone Encounter - Haleigh Lugo RN - 03/10/2022 2:59 PM EST [place], Letter will need RW to sign as well. Waiting on satellite manager. Asks if you will fill our C-9 for FM? RW ordered this in July 2021. States that this idea originated with us and asks that we complete. Again, the retro C9's need to be filled out by pre[facility]access/[facility]. Reached out via staff message. We do not keep C9 forms as was explained to the patient on multiple accounts. Haleigh Lugo, RN, BSN, BA documented in this encounterCincinnati [facility]01-26-2023 Miscellaneous Notes* Telephone Encounter - Laura Wcik - 03/09/2022 9:25 AM EST Addressed in separate encounter documented in this encounterCincinnati [facility]01-25-2023 Miscellaneous Notes* Telephone Encounter - Jimenez Sandoval MD - 03/08/2022 2:30 PM EST Please send the letter to me to [facility] so we can send it to the patient Susi Gaona documented in this encounterCincinnati [facility]01-25-2023 History of Present illness Narrative* Jaskaran Guzman APRN.CAKE MAKER - 03/08/2022 10:30 AM EST Yolanda Aparicio is a 26 year old female. Patient presents with: Follow Up This is a virtual visit using ReturnHauler video visit. It required patient-provider interaction for themedical decision making as documented below. The patient consented to complete the visit virtually. Yolanda is here today for follow up. She will be having her disability hearing next week. Apparently, the reviewing physician for disability did not feel her symptoms were related to a post-covid syndrome. 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 She was an active individual and was exercising. However, after her illness in January 2020, all of this changed and she developed significant symptoms. She reports that her health symptoms have slightly improved. She is working with PT at [facility]. Symptoms that improved include: Improvement of orthostatic tolerance With PT went from 15 minutes of activity upright to now being able to do 45 minutes upright Initially with PT, she was able to reduce her mile walking time from 23 minutes to 18-19 minutes Heart rate recovery is about 30-60 seconds now as opposed to 2-3 minutes Able to move from recumbent exercise to more upright exercises These exercises are not high intensity and are in a controlled environment Heart rate variability Less tachycardia with metoprolol tartrate Previously tried on metoprolol succinate, propranolol, Ivabradine Ongoing symptoms: Tachycardia Shortness of breath Brain fog Chest discomfort Metoprolol has improved this Fatigue Activity intolerance Although improved, still an issue Feels quite sick after exercise and will need to rest Postural dizziness/lightheadedness She is frustrated and is emotional as she wants to be better. She is trying to exercise and trying to do what is right day in and day out. Despite this, she continues to have significant symptoms that limit her ability to function daily. Impression/Plan: (POTS; Post COVID syndrome) Ongoing issue of POST COVID POTS with associated symptoms of tachycardia, shortness of breath, brain fog, chest discomfort, fatigue, and activity intolerance. She has a disability hearing in the next several days and I will be writing a letter explaining herdiagnosis and associated symptoms (See letter section for details). I will be seeing her in person for exam and potential medication adjustment in mid-March. Recommend ongoing physical therapy care and continued utilization of metoprolol tartrate 25 mg twice daily until our next appointment as she is seeing improvements in her symptoms (see above). Medications Reviewed metoprolol tartrate, short acting, (LOPRESSOR) 25 mg tablet Take 1 tablet by mouth twice daily. Pt taking 12.5 mg in am and 25 mg at night sodium chloride 1 gram tab TAKE 1 TABLET BY MOUTH 3 TIMES A DAY *TAKE WITH FOOD* hydrOXYzine HCl (ATARAX) 10 mg tablet Take 1 tablet by mouth three times daily as needed. gabapentin (NEURONTIN) 300 mg capsule 1 capsule 2x/day gabapentin (NEURONTIN) 100 mg capsule Take 2 capsules by mouth twice daily. (taken with 300mg capsule) tiZANidine (ZANAFLEX) 4 mg tablet Take 1 tablet by mouth daily at bedtime. ondansetron orally disintegrating (ZOFRAN ODT) 4 mg disintegrating tablet Take 4 mg by mouth once daily as needed. ibuprofen (MOTRIN) 200 mg tablet Take 200 mg by mouth as needed. acetaminophen (TYLENOL) 500 mg tablet Take 500 mg by mouth as needed. Allergies Reviewed PAST MEDICAL HISTORY: ACTIVE PROBLEM LIST Personal History of Covid-19 Intractable Tension-Type Headache Cerebrovascular Disease Facial Paresthesia Pots (Postural Orthostatic Tachycardia Syndrome) Long Covid Cognitive Communication Deficit Mixed Obsessional Thoughts and Acts Ptsd (Post-Traumatic Stress Disorder) Obesity, Class I, Bmi 30-34.9 PAST SURGICAL HISTORY Procedure Laterality Date NONE Social History Tobacco Use Smoking status: Former Packs/day: 0.30 Years: 5.00 Pack years: 1.50 Types: Cigarettes Quit date: 02/13/2016 Years since quittin.0 Smokeless tobacco: Never Vaping Use Vaping Use: Never used Substance Use Topics Alcohol use: No Drug use: Never family history includes Heart Attack in her paternal grandmother; Hyperlipidemia in her father and maternal grandmother; Hypertension in her father; afib in her maternal grandmother. I spent a total of 25 minutes on the date of the service which included preparing to see the patient, [id number] patient care, completing clinical documentation, obtaining and/or reviewing separately obtained history, and counseling and educating the patient/family/caregiver. ACTIVE PROBLEM LIST Personal History of Covid-19 Intractable Tension-Type Headache Cerebrovascular Disease Facial Paresthesia Pots (Postural Orthostatic Tachycardia Syndrome) Long Covid Cognitive Communication Deficit Mixed Obsessional Thoughts and Acts Ptsd (Post-Traumatic Stress Disorder) Obesity, Class I, Bmi 30-34.9 No orders found for this visit on 03/08/22. Jaskaran Guzman MSN, UTILITY SYSTEM REPAIRER, COACH TOUR DRIVER-C documented in this encounterCincinnati [facility]01-24-2023 Miscellaneous Notes* Telephone Encounter - Laura Wick - 03/07/2022 11:29 AM EST Addressed in separate encounter documented in this encounterCincinnati Children'S [facility]01-24-2023 Miscellaneous Notes* Telephone Encounter - Kayla Murcia - 03/07/2022 9:06 AM EST Patient called to inquire about MyChart message received stating that Dr. Nichols is not [facility] certified, as Dr. Nichols has filled out forms for her in the past, and [facility] has never had an issue with her signature. Patient stated that she called [facility] and left them a message to double check for Dr. Nichols, but to her knowledge, these retroactive C9 forms require Dr. Nichols's signature as the ordering physician of the tests. Please advise. documented in this encounterCincinnati Children'[facility]01-23-2023 Miscellaneous Notes* Telephone Encounter - Bruna Montes De Oca - 03/06/2022 4:56 PM EST 03/06 Signed and faxed over. Confirmation rec'd LM documented in this encounterCincinnati Children'[facility]01-23-2023 Miscellaneous Notes* Telephone Encounter - Laura Medina - 03/06/2022 4:02 PM EST Forms placed in provider mailbox for review documented in this encounterCincinnati Children'[facility]01-17-2023 History of Present illness Narrative* Jimenez Sandoval MD - 02/28/2022 5:02 PM EST OTONEUROLOGY RE-EVALUATION Last visit: 08/29/21 (virtual) Overall status: some improvement overall (possibly 20%) over the past 3 months or so / some worsening today ################################################################## ################################################################## Impressions: Ongoing, though improving, issues of chest pain, shortness of breath, tachycardia, dizziness and fatigue. Likely overlap between a peripheral vestibular disturbance, abnormal upper cervical and thoracic spine biomechanics, and a tendency toward orthostatic intolerance. Dominant issues of Post-COVID POTS though things are clearly improving. Migraine headaches are no longer an issue. POTS appears better with metoprolol therapy and dose adjustment. Element of thoracic spine dysfunction appears to contribute to the shortness of breath and chest pain; though this could be in part an old issue, her current reduced activity due to the fatigue and POTS may likely be worsening the situation. Patient manifests an asymmetry of upper cervical spine biomechanics. Recommendations/Plan: Physical Therapy: Continue current cervical / vestibular and will add thoracic PT with David Roche (updated C9 to besubmitted by our staff) Further testing: none at this time Medications: Continue the metoprolol (as per Jaskaran Guzman CNP) [facility] hearing scheduled for 03/16/22 Letter written - given to patient and will be faxed to patient's satellite manager Follow-up: PRN ################################################################## ################################################################## Interval history: Main symptoms: brain fog , fatigue, SOB, heart racing, chest pain Metoprolol 12.5 am / 25 pm (25 and 25 made her more dizzy) x 3-4 months Feels that it helps her heart rate and chest pain the most Gabapentin 500mg, 2x/day brain fog / forgetfulness - no change overall Constant w/ fluctuation Problems with STM memory - may forget to get gas and then almost runs out, may forget if she took her medicine or not SOB - on/off, hours, 3-4x/week More so with activity though can happen at rest Heart racing On/off No more than an hour unless she's in a flare (may last up to days) Not sure of the frequency Can be triggered by activity / walking up stairs Can sometimes happen with no obvious triggers Chest pain: Midsternal, heavy sensation, on/off, up to hours, maybe 3-4x/week Can be triggered by activities and other times just when sitting there. Stress can be a factor Dizziness: general dizziness - no longer constant since starting PT On/off Up to hours 3-4x/week Separate from the chest pain Better when laying down if present Can be triggered by certain activities (lifting 5 lb weights) or when upright Lightheadedness On/off No more than an hour 3x/week? Mainly happens when upright Heart racing with this Headache: Last botox - April 2021 No longer getting headaches Neck pain: Denies Neck PT/VR: David Roche Last seen at the end of January / one more visit left Has been helpful Feels that is helped her dizziness and lightheadedness and also heart racing (LE strengthening and ellipitcal). Feels that her endurance is better and her heart rate recovery is quicker Continues HEP ################################################################### Review of Systems: Energy: fatigued Constant w fluctuation (ave - moderate) Some improvement from before Exercise can help though can be worse the next day Sleep: not the best Insomnia - no Frequent awakenings - sometimes Refreshed in am - a little more than before ################################################################## Diagnostic tests since last visit: Consultation Dx Date Location Other Testing Result Date Location ################################################################## LMP 09/05/2020 (Within Weeks) VOMS Test Headache Dizziness Nausea Fogginess Other Total Symptom Score Details Baseline symptoms 0 0 0 0 0 0 Smooth pursuit 0 0 0 0 0 0 Quadrant: No symptoms Horizontal saccades 0 0 0 0 0 0 Vertical saccades 0 0 0 0 0 0 Near point convergence 0 0 0 0 0 0 Horizontal VOR 0 0 0 0 0 0 Vertical VOR 0 0 0 0 0 0 Visual Motion Sensitivity 0 0 0 0 0 0 TOTAL SCORES 0 0 0 0 0 0 - VOR, vestibulo-ocular reflex. - Provocation of symptoms is rated on a scale from 0 to 10, with 0 being no symptoms and 10 being severe symptoms. - Total symptom score = change in headache from baseline + change in dizziness from baseline + change in nausea from baseline + change in fogginess from baseline for each of the VOMS test items. Reflexes Deep tendon reflexes graded by [facility] ################################################################## Patient-Entered Questionnaire Scores HIT-6 04/02/2018 KP HIT-6 58 Dizziness Handicap Scores 05/06/2020 04/19/2021 08/29/2021 Emotional Score - - - Emotional Score 14 24 24 Physical Score - - - Physical Score 8 18 20 Functional Score - - - Functional Score 16 22 22 Total Score - - - Total Score 38 64 66 PHQ-9 01/17/2022 01/17/2022 02/15/2022 Score 7 7 7 ################################################################## The patient was personally seen and examined by myself. Jimenez Sandoval MD [facility] cc: Misha Sy, * (to sec*) Fazal Huddleston DO Shannon, Kyle, CNP (sent via [employer] - yes) (Results of consultation to be transmitted via electronic medical record for those providers who practice within [facility] or with access to Epiccare via MD Connect, or via letter) Level of service: Est level 5 (40-54 min). Time spent 70 min on the day of service, which included preparing to see the patient, [id number] patient care, completing clinical documentation, obtaining and/or reviewing separately obtained history, performing a medically appropriate examination, counseling and educating the patient/family/caregiver, and ordering medications, tests, or procedures. Medical Decision Making: Medical Decision Making Level: 1 - N/A documented in this encounterCincinnati Children'[facility]01-13-2023 Miscellaneous Notes* Telephone Encounter - Alvin Ng MD - 02/24/2022 6:37 PM EST Left vm with patient. I reviewed the KATIANA done by Dr Colby who opined she had reached maximum medical improvement on her POTS and long-COVID. I also spoke with her atty Cas Darby. I informed her that I did not disagreewith Dr. Horton' opinion and that I could not write a rebuttal to the opinion. I stressed I am very willing of support where possible for her to pursue other routes, eg disability, vocational rehab, etc documented in this encounterCincinnati [facility]01-13-2023 Miscellaneous Notes* Telephone Encounter - Haleigh Lugo RN - 02/24/2022 2:18 PM EST [place], KATIANA report from [facility] doctor. This report is in scanned docs frm 02/15/2022. Her roof service technician did send correspondence, but [facility] did not forward. Their doctor states that pt is at [facility] and this is as good as it gets . Pt is requesting rebuttals from each provider on why their doctor is not right. Asks for you to complete a virtual visit or call her via telephone and do what you did last time she needed a letter. Hearing is set for 03/16/2022 and will be to try and terminate benefits. Haleigh Lugo RN, BSN, BA documented in this encounterCincinnati [facility]01-12-2023 Miscellaneous Notes* Telephone Encounter - Haleigh Lugo RN - 02/23/2022 8:42 AM EST KS, See email to legal and customer billing services. Have asked them to contact patient as we cannot provide answer as to why they will not call her back. Their policy is 72 hours. Pt has reached out to the [facility] regarding them not calling her back. Is awaiting response. Haleigh Lugo RN, BSN, BA documented in this encounterCincinnati [facility]01-10-2023 Miscellaneous Notes* Telephone Encounter - Celeste Jaramillo RN - 02/21/2022 12:48 PM EST Called patients satellite manager office [phone], no answer message left to determine what needs changed on the form. Celeste Jaramillo RN documented in this encounterCincinnati [facility]01-09-2023 Miscellaneous Notes* Telephone Encounter - Jimenez Sandoval MD - 02/20/2022 9:34 PM EST Will await a visit with myself, possibly next week, before this letter is written Jimenez * Telephone Encounter - Esther Henson Pss - 02/16/2022 2:51 PM EST Images from the original note were not included. Letter scanned to patients chart via [employer] if you would like to view in its entirety. documented in this encounterCincinnati [facility]01-06-2023 Miscellaneous Notes* Telephone Encounter - Wilma Parmar RN - 02/17/2022 9:42 AM EST Patient asking if [employer] form was filled out properly or roof service technician called to figure out. Moni Parmar RN documented in this encounterCincinnati [facility]01-04-2023 Miscellaneous Notes* Telephone Encounter - Judy Gamez PSYD - 02/15/2022 12:33 PM EST Pt would like to schedule 03/13 at 3pm in my dept use slot. Can you add her for a virtual? She does not need a phone call as we discussed this. Thanks! documented in this encounterCincinnati Children'S [facility]01-04-2023 History of Present illness Narrative* Judy Gamez PSYD - 02/15/2022 11:33 AM EST Due to the federal emergency declaration and the need for ongoing mental health services, the following visit was completed virtually and informed consent obtained orally to reduce the risk of COVID-19 exposure. Oral consent to services related to virtual visits was obtained after information was sent via ReturnHauler or read to patient if SimGymt not available. GENERAL PSYCHOLOGY Session #: 7 Today's visit was conducted by: Amanda Huff DBA [employer] Video Visit Pt identity verified: Yes Location verified: Parked at [facility] in [place] Privacy concerns related to pt's present environment discussed: Yes Telehealth Risk Benefit Analysis A) Consistency of presenting problem with use of telehealth services: Engaging effectively in talk therapy which is appropriate to telehealth. B) Client knowledge and skills to use technology: Continues to have the knowledge and skills to participate in telehealth. SUBJECTIVE: Discussed when others invalidate her When there is something dirty at home she feels like she has to take care of it right away, has notinterfered with getting to appointments or getting to work - she did not have these symptoms when she was working, never returned to work after initial COVID infection Has had to spray Lysol when people came over Feeling stress regarding returning to school ([employer] for one semester), probably has at least 2 yearsleft Patient Data Generalized Anxiety Disorder Scale (ROSE MARIE-7) ROSE MARIE - 7 SCORES 01/17/2022 01/17/2022 02/15/2022 ROSE MARIE-7 Score 6 6 4 (0-4) minimal anxiety, (5-9) mild anxiety, (10-14) moderate anxiety, (15-21) severe anxiety Patient Health Questionnaire (PHQ-9) PHQ-9 01/17/2022 01/17/2022 02/15/2022 Score 7 7 7 (0-4) minimal depression, (5-9) mild depression, (10-14) moderate depression, (15-19) moderately severe depression, (20-27) severe depression PROMIS Global Health PROMIS Global Health - (T-Scores - the mean of general population = 50. Five points is a clinicallymeaningful difference.) 10/31/2021 01/17/2022 01/17/2022 Physical T-Score 32.4 37.4 37.4 Mental T-Score 28.4 28.4 28.4 Irene Brown OCD Scale - Total Score: 17 (12/26/2021 3:26 PM) If the patient has BOTH obsessions and compulsions, total score thresholds are: 8-15 = Mild OCD 16-23 = Moderate OCD 24-31= Severe OCD 32-40 = Extreme OCD PCL-5 Total Score: 45 (10/18/2021 8:25 AM) 33 = proposed cut-off score for PTSD symptoms warranting further investigation until further psychometric work is available <33 = subthreshold symptoms of PTSD >24 PTSD is a clinical concern, 33-36 probable PTSD, >37 significant PTSD OBJECTIVE: Some behavioral observations limited due to visit being conducted virtually Mental Status Exam: General/Sensorium: AO X 4 - Appearance: Appears well groomed and stated age - Demeanor: Appropriately interactive - Motor Activity: Normal - Speech: Appropriate - Thought Process: Linear, logical, and goal-directed - Associations: Normal - Thought Content: Appropriate with no SI/HI/AVH - Perceptions: The patient does not appear internally stimulated - Cognition: Appears intact in regards to memory, attention/concentration, fund of knowledge and language skills - Insight: Good - Judgment: Good - ASSESSMENT: Yolanda Aparicio was actively engaged in the session and demonstrated motivation towards therapy goals. Will likely benefit from continued psychotherapy to support management of anxiety. 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) TREATMENT MODALITIES: Cognitive Behavioral Therapy to cognitive restructuring and exposure and response prevention PROGRESS TO DATE: Portal Administrator Progress: Progress Short Term Condition: Progress GOALS/OBJECTIVES/INTERVENTIONS: Validate emotional experience Increase mindfulness Increase insight into obsessive thinking Increase tolerance of obsessions, resistance to compulsions SHORT-TERM OBJECTIVE/INTERVENTION: Identified compulsions to target: - safety behaviors in the car - spraying lysol - socially isolating from family Her goal for 2022 is to improve her relationship with god Discussed difference between clinical and forensic psychology, that I cannot complete an evaluationfor forensic purposes manager 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 Judy Gamez PSYD documented in this encounterCinc[facility]12[facility]30[facility] Miscellaneous Notes* Telephone Encounter - Luara Medina - 02/10/2022 9:11 AM EST Marko Singh- Patient requesting C-9 form to be completed for the testing that was ordered by sleep [facility]. Are you familiar with these forms? It looks like we have only ordered HSAT & PSG in the past that were both negative. Thank you! documented in this encounterCincinnati [facility]12-30-2022 Miscellaneous Notes* Telephone Encounter - Haleigh Lugo RN - 02/10/2022 8:35 AM EST [place], First part of message sent to RW office as he is filling out. Pt requests letter form you stating that pt has not reached maximum medical improvement. Feels that the only doctor that has truly supported her is Dr. Sandoval as he fills out forms correctly and in a timely manner. She states that she really likes you, but needs to know if you are going to support her? Explains that you have written letters in past as well as PCP. States that PCP and Dr. Sandoval do the most for her. States that she is being as nice as she can abut this. All of her paperwork should be going through [facility]. This is policy of [facility]. Contact roof service technician to properly complete a [employer] form. Pt states that you need to fill out C9's for all of the testing you have ever ordered. This needs to go through [facility] as we do not have the forms. Heart holter x2 Tilt table test Echo Haleigh Lugo RN, BSN, BA documented in this encounterCincinnati [facility]12-21-2022 History of Present illness Narrative* Queta Ward PSYD - 02/01/2022 4:00 PM EST Ms. Aparicio cancelled today's session d/t illness. Next health psychology session scheduled for 05/10/22. She will continue regular MH services with Dr. Gamez. documented in this encounterCincinnati [facility]12-21-2022 Evaluation note* Encounter Date Diagnosis Assessment Notes Treatment Notes Treatment Clinical Notes Jan, Body aches (ICD-10 - R52) Jan,Nasal congestion (ICD-10 - R09.81) Jan,hest pain, unspecified type (ICD-10 - R07.9) [employer] Other 12-19-2022 Miscellaneous Notes* Telephone Encounter - Wilma Parmar RN - 01/30/2022 12:39 PM EST Patient upset that she has not heard from [facility] and information received by our office. Moni Parmar RN documented in this encounterCincinnati [facility]12-15-2022 History of Present illness Narrative* Judy Gamez, MARKYD - 01/26/2022 2:06 PM EST Due to the federal emergency declaration and the need for ongoing mental health services, the following visit was completed virtually and informed consent obtained orally to reduce the risk of COVID-19 exposure. Oral consent to services related to virtual visits was obtained after information was sent via Amanda Huff DBA [employer] or read to patient if MyChart not available. GENERAL PSYCHOLOGY Session #: 6 (session count starts after PSYL NEW EVAL visit) Today's visit was conducted by: PHONE VISIT Pt identity verified: Yes Location verified: pt at [employer] in [place] Privacy concerns related to pt's present environment discussed: Yes Telehealth Risk Benefit Analysis A) Consistency of presenting problem with use of telehealth services: Engaging effectively in talk therapy which is appropriate to telehealth. B) Client knowledge and skills to use technology: Continues to have the knowledge and skills to participate in telehealth. SUBJECTIVE: Pt very frustrated with medical forms not being completed, issues with getting things approved States she is unable to recover due to stress of constant legal cheek related to worker's comp, and not being able to get forms completed contributes to this Had difficult exchange with women on Facebook regarding not working Feels literally drained all the time, judged by others Discussed her perspectives on vaccines Denies active suicidal ideation but feels like she is being pushed to this by her situation Emotions are all over the place Not sleeping well and has noted that since having COVID Patient Data Generalized Anxiety Disorder Scale (ROSE MARIE-7) ROSE MARIE - 7 SCORES 12/09/2021 01/17/2022 01/17/2022 ROSE MARIE-7 Score 7 6 6 (0-4) minimal anxiety, (5-9) mild anxiety, (10-14) moderate anxiety, (15-21) severe anxiety Patient Health Questionnaire (PHQ-9) PHQ-9 12/09/2021 01/17/2022 01/17/2022 Score 11 7 7 (0-4) minimal depression, (5-9) mild depression, (10-14) moderate depression, (15-19) moderately severe depression, (20-27) severe depression PROMIS Global Health PROMIS Global Health - (T-Scores - the mean of general population = 50. Five points is a clinicallymeaningful difference.) 10/31/2021 01/17/2022 01/17/2022 Physical T-Score 32.4 37.4 37.4 Mental T-Score 28.4 28.4 28.4 OBJECTIVE: Behavioral observations limited due to visit being conducted by phone. Mental Status Exam: General/Sensorium: AO X 4 and In moderate distress - Appearance: - Unable to assess Eye Contact: - Unable to assess Demeanor: - Unable to assess Motor Activity: - Unable to assess Speech: Appropriate - Mood: Angry - Affect: Congruent with mood - Thought Process: Linear, logical, and goal-directed - Associations: Normal - Thought Content: Appropriate with no SI/HI/AVH - Perceptions: The patient does not appear internally stimulated - Cognition: Appears intact in regards to memory, attention/concentration, fund of knowledge and language skills - Insight: Good - Judgment: Good - ASSESSMENT: Yolanda Hackettwin was actively engaged in the session and demonstrated motivation towards therapy goals. Will likely benefit from continued psychotherapy to support management of mood and stress related to coping with disability. DIAGNOSIS: (F43.10) PTSD (post-traumatic stress disorder) (primary encounter diagnosis) (F42.2) Mixed obsessional thoughts and acts (U09.9) Post-acute sequelae of COVID-[address] ([facility]) TREATMENT MODALITIES: DBT PROGRESS TO DATE: Intermediate Progress: Progress Short Term Condition: Progress GOALS/OBJECTIVES/INTERVENTIONS: Validate emotional experience Reframe unhelpful thinking Support boundary-setting/assertive communication SHORT-TERM OBJECTIVE/INTERVENTION: Pt to try to reframe her time by herself as resting vs. being isolated Recommended to use previously learned mindfulness Recommended to try safe place imagery for sleep Approximately 55 minutes were spent with the patient doing therapy by phone due to pt request for urgent visit, unable to do video at this time. Judy Gamez PSYD documented in this encounterCincinnati [facility]12-14-2022 History of Present illness Narrative* Wilma Mujica, RD - 01/25/2022 9:31 AM EST [facility] Nutrition Therapy: Virtual Consult - Re-assessment This visit was performed virtually due to the COVID-19 epidemic as an effort to protect patients and minimize exposure. Consent from patient received to conduct visit virtually. This Team Access Model visit is a virtual encounter. It required patient-provider interaction for the medical decision making as documented below. Nutrition Diagnosis: Behavioral-Environmental: Food and nutrition related knowledge deficit, related to, lack of prior exposure to information , as evidenced by client has no prior knowledge of need for food and nutrition - related information. RECOMMENDED MALNUTRITION DIAGNOSIS: NO MALNUTRITION IDENTIFIED NUTRITION CARE PLAN: Nutrition Intervention 01/25/2022: - Continue to work on reducing the frequency of eating out and preparing healthier meals at home. - If eating out, keep up the good work with making healthier menu choices and reviewing the nutrition information prior to ordering to be able to make a healthier choice collectively. - As last discussed, calorie goal should be between 0122-5644 calories a day for now while weekly physical activity is limited. Remember, another way to think about this is 400-500 calories meals. - Maintain therapy weekly with POTS providers and follow exercise guidelines they provide. Nutrition Monitoring & Evaluation: Weight loss of 1-2 pounds per week and adherence to above recommendations. Criteria: patient update and weight check Need for Follow up: 6-8 weeks PROGRESS: Patient presents for follow-up nutrition visit to discuss weight management/desire to lose weight. Since last visit, pt with a 7 lbs increase from last weight reported. Pt states that she continues to have increased stress with personal matters, as well as with school. School just finished however and things with personal matters slowly getting better which is good by report. States now she is starting to try to focus more on healthier eating but admits stress causes some deviations from healthy eating at times. Eating out still but actively reviewing calories and trying to make better choices and have smaller portions overall. Still slowly increasing weekly activity per POTS providers recommendations. See all interventions/recommendations discussed during visit this day. Nutrition Intervention from 10/26/21: Modify type and amount of food consumed for meals and snacks: - Try to download the free version of the [employer] yolanda to track daily food intakes as discussed. - Calorie goal for now should be between 4484-3195 calories a day. Another way to think about this is 400-500 calories meals and if having a snack with incorporation of lower calorie meals, snack calories should be between 80-150 calories. - Continue to work on reducing the frequency of eating out and preparing healthier meals at home. - Follow-up with nutrition in 6 weeks to assess progress with things. - Maintain therapy weekly with POTS providers and follow exercise guidelines they provide. Actions to implement interventions: Diet History: Breakfast - [place] pancake (1 each) with a small amount of chocolate chips OR a breakfast sandwich from [employer] Lunch - chicken sandwich from a restaurant OR Chipotle OR chicken wrap OR chicken salad OR grilled nuggets with a fruit cup Dinner - soup OR tacos prepared at home Snack - popcorn Beverages - iced coffee mocha with non-fat milk some days but no longer daily , water and diet soda - Still dealing with stress with personal matters - Finished school but states that was also stressful - Trying to focus on healthier eating but admits stress causes some deviations from healthy eating at times. - Eating out still but actively reviewing calories and trying to make better choices and have smaller portions overall. - Still slowly increasing weekly activity per POTS providers recommendations. 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 Resting Metabolic Rate: 1610 Malnutrition Screening Significant unintentional weight loss? No Eating less than 75% of usual intake for more than 2 weeks? No Potential Signs of Inflammation: no identifiable sources Nutritional status: Education Materials Provided: None this visit READINESS TO LEARN Cognitive ability: Alert and oriented Motivation to learn: Interested Family support: Unable to assess - Family not present Instruction provided to: Patient Patient learns best by: Multiple Methods Factors affecting learning: None Physical limitations affecting learning: None Likelihood of Adherence: Moderate Referred/Supervised by: Self/Odilia MNT Billing Type: Re-assess/15 min 2 units SIGNATURE: Wilma Mujica RD PATIENT NAME: Yolanda Aparicio DATE: 01/25/2022 TIME: 9:31 AM PAGER: [phone] documented in this encounterCincinnati [facility]12-13-2022 History of Present illness Narrative* Alvin Ng MD - 01/24/2022 11:29 AM EST Wellness Consultation This note was generated with voice recognition software and may contain errors, including spelling,grammar, syntax and misrecognition of what was dictated, that are not fully corrected. Ms.Brandi Donald Aparicio is a 26 year old female referred by self for a wellness and preventive medicinefollow up consultation for long covid, POTS. Current Concerns: Here for follow up Just completed school for the semester - difficulty to concentrate Going to see psychologist Has decr PT freq according to plan Walking 2x/week x 45 mins Was difficult but doable. And did PT another day Some confusion re: different advice on exercise during winter Some improvement, but still sx every day - tachycardia, sob, chest pain, dizziness. Brain fog and fatigue ACTIVE PROBLEM LIST Personal History of Covid-19 Intractable Tension-Type Headache Cerebrovascular Disease Facial Paresthesia Pots (Postural Orthostatic Tachycardia Syndrome) Long Covid Cognitive Communication Deficit Mixed Obsessional Thoughts and Acts Ptsd (Post-Traumatic Stress Disorder) PAST SURGICAL HISTORY Procedure Laterality Date NONE ALLERGIES Allergen Reactions Amoxicillin-[place]* Other: See Comments extreme dizziness Bactrim [Sulfametho* GI Upset Cephalexin Unknown Ciprofloxacin Unknown Lexapro [Escitalopr* GI Upset [place] Juice Rash Sertraline Mental Status Change, Other: See Comments Trimethoprim Other: See Comments Current Outpatient Medications on File Prior to Visit Medication Sig metoprolol tartrate, short acting, (LOPRESSOR) 25 mg tablet Take 1 tablet by mouth twice daily. sodium chloride 1 gram tab TAKE 1 TABLET BY MOUTH 3 TIMES A DAY *TAKE WITH FOOD* hydrOXYzine HCl (ATARAX) 10 mg tablet Take 1 tablet by mouth three times daily as needed. gabapentin (NEURONTIN) 300 mg capsule 1 capsule 2x/day gabapentin (NEURONTIN) 100 mg capsule Take 2 capsules by mouth twice daily. (taken with 300mg capsule) tiZANidine (ZANAFLEX) 4 mg tablet Take 1 tablet by mouth daily at bedtime. ondansetron orally disintegrating (ZOFRAN ODT) 4 mg disintegrating tablet Take 4 mg by mouth once daily as needed. ibuprofen (MOTRIN) 200 mg tablet Take 200 mg by mouth as needed. acetaminophen (TYLENOL) 500 mg tablet Take 500 mg by mouth as needed. Current Facility-Administered Medications on File Prior to Visit Medication perflutren lipid microspheres 1.3 mL in NaCl (PF) 0.9% 10 mL injection (DEFINITY) sodium chloride 0.9 % (flush) 10 mL (BD POSIFLUSH) Social History Tobacco Use Smoking status: Former Packs/day: 0.30 Years: 5.00 Pack years: 1.50 Types: Cigarettes Quit date: 02/13/2016 Years since quittin.9 Smokeless tobacco: Never Vaping Use Vaping Use: Never used Substance Use Topics Alcohol use: No Drug use: Never FAMILY HISTORY Problem Relation Age of Onset Hypertension Father Hyperlipidemia Father Hyperlipidemia Maternal Grandmother other (afib) Maternal Grandmother Heart Attack Paternal Grandmother Review of Systems: Physical Exam WD WN no distress BP 98/67 (BP Site: Right Arm, BP Position: Sitting, BP Cuff Size: Large Adult) Pulse 78 Ht 165.1 cm (5' 5 ) Wt 89.4 kg (197 lb) LMP 09/05/2020 (Within Weeks) BMI 32.78 kg/m Skin - warm and dry HEENT - NC/AT EOMI PERRLA Neck - supple no LA or thyromegaly Chest CTAB Cor RRR no r/m/g Abd soft +BS NT NM no HSM Ext No c/c/e. Bilat hip FROM. Neuro - Alert and Or x3. Motor/Sensory nonfocal. PREVIOUS STUDIES: IMPRESSION: Long Covid, POT - continues to be symptomatic, poor quality of life, and unable to work. Please seecompleted scanned [employer] form in chart. Continue with all your current treating health resident care aid recs. I spent a total of 30 minutes on the date of the service which included preparing to see the patient, [id number] patient care, completing clinical documentation, performing a medically appropriate examination, counseling and educating the patient/family/caregiver, and care coordination (not separately reported). documented in this encounterCincinnati [facility]12-07-2022 History of Present illness Narrative* Queta Ward PSYD - 01/18/2022 4:00 PM EST [facility] Clinical Health Psychology Follow-Up Virtual Yolanda Aparicio [phone] Time spent in session: 45 minutes Parties Present: Patient Diagnoses: PRIMARY: PTSD Other: Generalized Anxiety Disorder Adjustment Disorder w/ depressed mood POTS Post-acute 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) Due to the federal emergency declaration and the need for ongoing mental health services, the following visit was completed virtually and informed consent was obtained orally to reduce the risk of Covid-19 exposure. Oral consent to services related to virtual visits was obtained after information was sent via [employer] during this patient initial evaluation with the provider. Discussed privacy riskfor virtual sessions. Patient location during the visit: home Session #: 9 TREATMENT MODALITIES: Supportive Therapy CBT Motivational Interviewing Mindfulness approach / relaxation skill building SUBJECTIVE: Comorbid Medical Dx: Facial Paresthesia, intractable tension headaches, GERD, Cerebrovascular Disease; Hx of COVID-19 (01/2020) w/ post-acute sequelae Most significant sx currently: vertigo, brain fog, fatigue, tachycardia, chest pain, SOB, dizziness, nausea (uses Zofran), headaches, body aches Updates per chart review: - continuing therapy w/ Dr. Gamez - no-show 01/04 session w/ this provider TODAY'S INTERVENTIONS: Working on OCD management w/ Dr. Gamez. Reviewed Applied Tension Technique for management of pre-syncope sx associated w/ POTS; will send NovoEDg to assist w/ skill application. Fatigue and activity intolerance have remained significant, however pt has continued cardiac rehab including now utilizing treadmill which has been challenging (discussed reasoning - high impact on POTS). She does have a foot peddlar but views this as not challenging enough for her rehab. Discussed adaptations to exercise routine; if using treadmill could do 10-15 min and then strength-training additional. Or, substitute low-impact exercise (e.g., foot peddlar) w/ additional strength training. She has high motivation to exercise but also high physical fatigue; discussed importance of meeting her body where it's at. Discussed likely value of incorporating electrolyte supplements again daily. Reviewed behavioral management strategies for pain and temperature dysregulation Processed variability w/ sx impacts functioning. ASSESSMENT: PHQ-9 Score: 7 (01/17/2022 8:32 AM) (0-4) minimal depression, (5-9) mild depression, (10-14) moderate depression, (15-19) moderately severe depression, (20-27) severe depression ROSE MARIE-7 Total Score: 6 (01/17/2022 8:34 AM) (0-4) minimal anxiety, (5-9) mild anxiety, (10-14) moderate anxiety, (15-21) severe anxiety MENTAL STATUS: Ms. Aparicio was seen virtually; well-groomed, cooperative. Mood was mildly depressed/anxious w/ affect that was mood congruent. Speech was normal in rate, volume and articulation and clear, coherent,and relevant. Thoughts were logical and relevant without delusional thinking or hallucinations. Somatic preoccupation was mild. Denied SI. Judgment and insight were good. Attention span and concentration appeared normal. She was oriented to time, place and person. Memory appeared good. MEDICATIONS: Per medical record: Current Outpatient Medications Medication Sig metoprolol tartrate, short acting, (LOPRESSOR) 25 mg tablet Take 1 tablet by mouth twice daily. sodium chloride 1 gram tab TAKE 1 TABLET BY MOUTH 3 TIMES A DAY *TAKE WITH FOOD* hydrOXYzine HCl (ATARAX) 10 mg tablet Take 1 tablet by mouth three times daily as needed. gabapentin (NEURONTIN) 300 mg capsule 1 capsule 2x/day gabapentin (NEURONTIN) 100 mg capsule Take 2 capsules by mouth twice daily. (taken with 300mg capsule) tiZANidine (ZANAFLEX) 4 mg tablet Take 1 tablet by mouth daily at bedtime. ondansetron orally disintegrating (ZOFRAN ODT) 4 mg disintegrating tablet Take 4 mg by mouth once daily as needed. ibuprofen (MOTRIN) 200 mg tablet Take 200 mg by mouth as needed. acetaminophen (TYLENOL) 500 mg tablet Take 500 mg by mouth as needed. Current Facility-Administered Medications Medication Dose Route Frequency perflutren lipid microspheres 1.3 mL in NaCl (PF) 0.9% 10 mL injection (DEFINITY) INTRAVENOUS DIRECTED PRN sodium chloride 0.9 % (flush) 10 mL (BD POSIFLUSH) 10 mL INTRAVENOUS DIRECTED PRN PROGRESS TO DATE/ASSESSMENT: Impression per update (04/18/21): Ms. Aparicio is a 25 year old, single, White female who was referred by Jaskaran Guzman CNP. She presents with POTS and PASC. She meets criteria for PTSD, ROSE MARIE and Adjustment Disorder w/ depressed mood (depression has developed within context of chronic medical conditions and subsequent functional impact). Current sx significantly interfere with her functioning and quality of life. The relationship between her physical and emotional sx is likely bidirectional in nature, in that her medical conditions and mood reflect a hyperactive [employer]CR[employer]E [employer] FINISHER. 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 Ms. Aparicio lacks support and feels significantly isolated, which is contributing to her presentation. Will incorporate behavioral activation and CBT to address depression, as well as CBT for health anxiety. Will include POTS education and related management strategies. Will pursue trauma processing to reduce PTSD sx (and related CONCRETE STONE FINISHER hyperarousal), which will likely improve her interactions w/ medical providers. Her laureano and motivation/independence are positive values that will be incorporated into tx. Duration of tx is expected bandar moderate, depending on progress towards goals. PLAN: Homework: Applied Tension Technique; exercise goals; resume electrolyte supplements Next: CBT for health anxiety Follow Up: virtual 02/01/22 4pm Queta Ward PsyD Clinical Psychologist [facility] documented in this [facility]12-07-2022 Miscellaneous Notes* Telephone Encounter - Haleigh Lugo RN - 01/18/2022 3:47 PM EST FYI from patient. Haleigh Lugo, RN, BSN, BA documented in this [facility]12-06-2022 Miscellaneous Notes* Telephone Encounter - Judy Gamez PSYD - 01/17/2022 10:05 AM EST Hello - this pt has been having trouble getting scheduled with me. Do you mind giving her a call? She can schedule 5 appointments at a time to make it easier for her. She can schedule a dept use slotfor January if needed but regular slots pls for other follow-ups. I gave her the phone number again for future reference. Thank you so much, really appreciate the extra assist if you can! Judy Gamez PsyD [facility] 01/17/[address] [facility]12-01-2022 Miscellaneous Notes* Telephone Encounter - Celeste Jaramillo RN - 01/12/2022 10:24 AM EST MCM to pt. Celeste Jaramillo RN documented in this [facility]11-23-2022 History of Present illness Narrative* Queta Ward PSYD - 01/04/2022 4:00 PM EST Ms. Aparicio did not show for today's virtual follow-up with neuromuscular health psychology. Next session scheduled for 01/18/22. documented in this [facility]11-21-2022 Miscellaneous Notes* Telephone Encounter - Celeste Jaramillo RN - 01/02/2022 9:53 AM EST MCM to pt. Spoke with Chelsie from satellite manager office, asked her for new forms and for future requests to come to our office 6 weeks prior to the date the form needs submitted as our office has a 4-6 week turnaround time. Chelsie verbalized understanding. Was also notified that RW is not in the office today. Celeste Jaramillo RN documented in this [facility]11-18-2022 Miscellaneous Notes* Telephone Encounter - Esther Blakely - 12/30/2021 3:53 PM EST Form signed by provider and faxed to number provided on form Form also scanned into chart from Onbase * Telephone Encounter - Esther Henson Pss - 12/23/2021 10:42 AM EST Patient has been identified by name and date of : Yes Type of form: [employer]-14 Form received via: Fax When form is completed, fax form to fax number provided. Form has been forwarded to: Provider's mailbox. Provider name: Dr. Lori Hneson Pss documented [facility] this [facility] Miscellaneous Notes* Telephone Encounter - Celeste Jaramillo RN - 12/30/2021 3:34 PM EST Form faxed to [phone]. Celeste Jaramillo RN * Telephone Encounter - Celeste Jaramillo RN - 12/30/2021 10:16 AM EST MCM to pt. Celeste Jaramillo RN documented in this encounterCinc[facility]11-18-2022 Miscellaneous Notes* Telephone Encounter - Elizabeth Avila Cma - 12/30/2021 11:17 AM EST Patient has called to inform provider that the [employer] 14 form needs to be filled out every [address] Ng have you received this form and was it completed? Please let MA's at [facility] so we can address with patient. Thank you. Elizabeth Avila Cma * Telephone Encounter - Germain Reeder - 12/21/2021 10:31 AM EST Received a call from Chelsie from a roof service technician office asking for an updated [employer] Payment 14 form for this patient.The current one will on 01/01/22. She will fax over a new form. Please fax back to [phone], any questions call [phone] *Form on doctor desk for completion documented in this encounterCinc[facility]11-17-2022 Miscellaneous Notes* Telephone Encounter - Ciara Rosario Adm - 12/29/2021 3:44 PM EST Patient called and asked that this be sent and marked as urgent so that the form could be signed TRIP. documented in this encounterCinc[facility]11-17-2022 Evaluation note* Encounter Date Diagnosis Assessment Notes Treatment Notes Treatment Clinical Notes Dec, Acute cystitis with hematuria (I CD-10 - N30.01) [facility] Other 11-14-2022 History of Present illness Narrative* Judy Gamez PSYD - 12/26/2021 3:04 PM EST Due to the federal emergency declaration and the need for ongoing mental health services, the following visit was completed virtually and informed consent obtained orally to reduce the risk of COVID-19 exposure. Oral consent to services related to virtual visits was obtained after information was sent via Return[employer] or read to patient if SimGymt not available. GENERAL PSYCHOLOGY Session #: 4 Today's visit was conducted by: [employer] Video Visit* - provider had video, pt had audio only due totechnical difficulty, unable to assess pt via video Pt identity verified: Yes Location verified: pt at home in [place] Privacy concerns related to pt's present environment discussed: Yes Telehealth Risk Benefit Analysis A) Consistency of presenting problem with use of telehealth services: Engaging effectively in talk therapy which is appropriate to telehealth. B) Client knowledge and skills to use technology: Continues to have the knowledge and skills to participate in telehealth. SUBJECTIVE: States she has never had OCD before in her life, did read about COVID causing inflammation in the brain Completed YBOCS verbally today When she has obsessive thoughts like about the shower she would sit and ponder it for an hour or two, until she goes and does the thing she is thinking about, this is what stops it, it would likely continue if she did not It makes her feel irritated, she wants to fight against it Reviewed compulsions - sometimes cleans over an area more than once but does not scrub it to - seeing fingerprints on her drink will cause her to need to use a napkin on her drink - will sanitize hands more than once sometimes if not sure she did, will sanitize her face if she has touched it and was not sure if hands were clean, sanitizes her phone trying to get every crevice and then re-sanitizing her hands after, is upset if others touch her phone - if someone touched her food before she did she would be livid and may not eat it Amount of time spent on compulsive behaviors depends on the day - if she went to her parents or out in public there would be more compulsions happening, when home it is happening less She would estimate these symptoms have been present over the last 6 months, she recalls that in thepast she would sanitize, but not repeatedly, and would not do things like putting napkins around cups - she states that her PTSD was present prior to these obsessions and compulsions Patient Data Generalized Anxiety Disorder Scale (ROSE MARIE-7) ROSE MARIE - 7 SCORES 11/16/2021 11/30/2021 12/09/2021 ROSE MARIE-7 Score 8 9 7 (0-4) minimal anxiety, (5-9) mild anxiety, (10-14) moderate anxiety, (15-21) severe anxiety Patient Health Questionnaire (PHQ-9) PHQ-9 11/16/2021 11/30/2021 12/09/2021 Score 9 10 11 (0-4) minimal depression, (5-9) mild depression, (10-14) moderate depression, (15-19) moderately severe depression, (20-27) severe depression PROMIS Global Health PROMIS Global Health - (T-Scores - the mean of general population = 50. Five points is a clinicallymeaningful difference.) 07/13/2021 09/27/2021 10/31/2021 Physical T-Score 32.4 32.4 32.4 Mental T-Score 25.1 21.2 28.4 PCL-5 Total Score: 45 (10/18/2021 8:25 AM) 33 = proposed cut-off score for PTSD symptoms warranting further investigation until further psychometric work is available <33 = subthreshold symptoms of PTSD >24 PTSD is a clinical concern, 33-36 probable PTSD, >37 significant PTSD Irene Brown OCD Scale - Total Score: 17 (12/26/2021 3:26 PM) If the patient has BOTH obsessions and compulsions, total score thresholds are: 8-15 = Mild OCD 16-23 = Moderate OCD 24-31= Severe OCD 32-40 = Extreme OCD OBJECTIVE: Some behavioral observations limited due to visit being conducted virtually Mental Status Exam: General/Sensorium: AO X 4 - Appearance: - Unable to assess Eye Contact: - Unable to assess Demeanor: - Unable to assess Motor Activity: - Unable to assess Speech: Appropriate - Mood: Anxious - Affect: Euthymic - Thought Process: Linear, logical, and goal-directed - Associations: Normal - Thought Content: Appropriate with no SI/HI/AVH - Perceptions: The patient does not appear internally stimulated - Cognition: Appears intact in regards to memory, attention/concentration, fund of knowledge and language skills - Insight: Good - Judgment: Good - ASSESSMENT: Yolanda Aparicio was actively engaged in the session and demonstrated motivation towards therapy goals. Further assessment completed today indicate she has symptoms consistent with Obsessive Compulsive Disorder (F42.2 Mixed obsessional thoughts and acts), and diagnoses were updated to include this.Will likely benefit from continued psychotherapy to reduce anxiety and intrusive thoughts related to PTSD and OCD. DIAGNOSIS: (F43.10) PTSD (post-traumatic stress disorder) (primary encounter diagnosis) (F42.2) Mixed obsessional thoughts and acts TREATMENT MODALITIES: Cognitive Behavioral Therapy to behavior modifications and cognitive restructuring, DBT PROGRESS TO DATE: Intermediate Progress: Stable Short Term Condition: Stable GOALS/OBJECTIVES/INTERVENTIONS: Further assessment for OCD completed Approximately 60 minutes were spent with the patient doing therapy with pt using audio only, provider using audio and video. Judy Gamez PSYD documented in this encounterCleveland [id number] Miscellaneous Notes* Telephone Encounter - Judy Gamez PSYD - 12/26/2021 9:04 AM EST Is it possible to contact this pt to see if she can schedule with me at 3pm today for a video visit? She has asked for closer follow-up. Thanks! Dr. Gamez documented in this encounterCincinnati [facility]10-31-2022 Evaluation note* Encounter Date Diagnosis Assessment Notes Treatment Notes Treatment Clinical Notes Nov, POTS (postural orthostatic tachy cardia syndrome) (ICD-10 - I49.8) Certainly continue with her POTS specialist, no other change today. Nov,TSD (post-traumatic stress disorder) (ICD-10 - F43.10)She continues to see the psychologist, and I think this is quite reasonable. I await the follow-up results from further testing as noted above. 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 Nov,OVID-19 long hauler (ICD-10 - U09.9)Patient continues to have symptoms, and this is not atypical for long-haul patients. [facility] Other 10-28-2022 History of Present illness Narrative* Queta Ward PSYD - 12/09/2021 3:00 PM EDT [place] Clinical Health Psychology Follow-Up Virtual Yolanda Aparicio [phone] Time spent in session: 60 minutes Parties Present: Patient Diagnoses: PRIMARY: PTSD Other: Generalized Anxiety Disorder Adjustment Disorder w/ depressed mood POTS Post-acute 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) Due to the federal emergency declaration and the need for ongoing mental health services, the following visit was completed virtually and informed consent was obtained orally to reduce the risk of Covid-19 exposure. Oral consent to services related to virtual visits was obtained after information was sent via Not[employer] during this patient initial evaluation with the provider. Discussed privacy riskfor virtual sessions. Patient location during the visit: home Session #: 8 TREATMENT MODALITIES: Behavioral strategies CBT Mindfulness approach / relaxation skill building Active processing SUBJECTIVE: Comorbid Medical Dx: Facial Paresthesia, intractable tension headaches, GERD, Cerebrovascular Disease; Hx of COVID-19 (01/2020) w/ post-acute sequelae Most significant sx currently: vertigo, brain fog, fatigue, tachycardia, chest pain, SOB, dizziness, nausea (uses Zofran), headaches, body aches Updates per chart review: - 10/[address] Gamez to begin individual therapy - 10/18, 11/01 f/u Dr. Gamez; no-show 11/16 - 11/02 f/u Mora Guzman CNP: -increase metoprolol to 25 mg twice daily -next consideration would bethe use of Effexor and exercise recommendations - attending POTS educational SMAs TODAY'S INTERVENTIONS: Encouraged pt to resched individual therapy w/ Dr. Gamez. Our team, Dr. Sandoval, and PCP provided letters for pt to use for her court cases; notably she did win but cases are being appealed. Regarding metoprolol, she reduced dosage back to original dosage. She is not open to trialing Effexor; attempted to incorporate CBT for health anxiety. Continuing PT; plan is to walk every other day when not having PT. Considered options for exercise to support recommendations per Mora Guzman CNP - pt has not initiated weight lifting routine (has 2 and 5 lb weights at home), discussed could add Dr. Huddleston's videos as a starting point (pt noted has not yet reviewed these and is interested). She plans to use her parents' treadmill during the winter and/or could use [employer] [facility] walking track. Educated on energy allocation (battery analogy) in context of chronic illness. Applied above to interpersonal dysfunction, healthy boundaries, intentional actions. OCD thoughts/behaviors; pt discussed researching linking inflammation to OCD. This provider discussed perception of OCD-like behaviors secondary to her PTSD. Educated on behavioral components of OCD as reinforcing of anxiety. She would like to continue working on behavioral strategies to reduce related behaviors. ASSESSMENT: PHQ-9 Score: 11 (12/09/2021 1:53 PM) (0-4) minimal depression, (5-9) mild depression, (10-14) moderate depression, (15-19) moderately severe depression, (20-27) severe depression ROSE MARIE-7 Total Score: 7 (12/09/2021 1:53 PM) (0-4) minimal anxiety, (5-9) mild anxiety, (10-14) moderate anxiety, (15-21) severe anxiety MENTAL STATUS: Ms. Aparicio was seen virtually; well-groomed, cooperative. Mood was mildly depressed/anxious w/ affect that was mood congruent. Speech was normal in rate, volume and articulation and clear, coherent,and relevant. Thoughts were logical and relevant without delusional thinking or hallucinations. Somatic preoccupation was mild. Denied SI. Judgment and insight were good. Attention span and concentration appeared normal. She was oriented to time, place and person. Memory appeared good. MEDICATIONS: Per medical record: Current Outpatient Medications Medication Sig metoprolol tartrate, short acting, (LOPRESSOR) 25 mg tablet Take 1 tablet by mouth twice daily. sodium chloride 1 gram tab TAKE 1 TABLET BY MOUTH 3 TIMES A DAY *TAKE WITH FOOD* hydrOXYzine HCl (ATARAX) 10 mg tablet Take 1 tablet by mouth three times daily as needed. gabapentin (NEURONTIN) 300 mg capsule 1 capsule 2x/day gabapentin (NEURONTIN) 100 mg capsule Take 2 capsules by mouth twice daily. (taken with 300mg capsule) tiZANidine (ZANAFLEX) 4 mg tablet Take 1 tablet by mouth daily at bedtime. ondansetron orally disintegrating (ZOFRAN ODT) 4 mg disintegrating tablet Take 4 mg by mouth once daily as needed. ibuprofen (MOTRIN) 200 mg tablet Take 200 mg by mouth as needed. acetaminophen (TYLENOL) 500 mg tablet Take 500 mg by mouth as needed. Current Facility-Administered Medications Medication Dose Route Frequency perflutren lipid microspheres 1.3 mL in NaCl (PF) 0.9% 10 mL injection (DEFINITY) INTRAVENOUS DIRECTED PRN sodium chloride 0.9 % (flush) 10 mL (BD POSIFLUSH) 10 mL INTRAVENOUS DIRECTED PRN PROGRESS TO DATE/ASSESSMENT: Impression per update (04/18/21): Ms. Aparicio is a 25 year old, single, White female who was referred by Jaskaran Guzman CNP. She presents with POTS and PASC. She meets criteria for PTSD, ROSE MARIE and Adjustment Disorder w/ depressed mood (depression has developed within context of chronic medical conditions and subsequent functional impact). Current sx significantly interfere with her functioning and quality of life. The relationship between her physical and emotional sx is likely bidirectional in nature, in that her medical conditions and mood reflect a hyperactive [employer]CR[employer] FIN[employer]ER. 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 Ms. Aparicio lacks support and feels significantly isolated, which is contributing to her presentation. Will incorporate behavioral activation and CBT to address depression, as well as CBT for health anxiety. Will include POTS education and related management strategies. Will pursue trauma processing to reduce PTSD sx (and related [employer]CR[employer]ONE FINISHER hyperarousal), which will likely improve her interactions w/ medical providers. Her laureano and motivation/independence are positive values that will be incorporated into tx. Duration of tx is expected bandar moderate, depending on progress towards goals. PLAN: Homework: exercise, energy allocation Next: CBT for health anxiety Follow Up: virtual 01/04/22 4pm Queta Ward PsyD Clinical Psychologist [facility] documented in this encounterCincinnati [facility]10-28-2022 Instructions* Patient Instructions* Queta Ward PSYD - 12/09/2021 9:01 AM EDT Next session scheduled for 01/04/22 at 4pm. documented in this [facility]10-26-2022 Miscellaneous Notes* Telephone Encounter - Jimenez Sandoval MD - 12/07/2021 10:58 PM EDT Letter reviewed Jimenez * Telephone Encounter - Esther Henson Pss - 11/30/2021 4:50 PM EDT Received letter from Law offices of [employer]. Uploaded via [employer], will be available in [employer] for review shortly. documented in this encounterCincinnati [facility]10-06-2022 History of Present illness Narrative* Queta Ward PSYD - 11/17/2021 1:00 PM EDT [facility] Clinical Health Psychology - Shared Psychological Appointment (SPA) Date: 11/17/21, 1-2pm Name: Yolanda Aparicio Format of Group: Virtual via Zoom platform The POTS Psych SPA is a group facilitated by health psychologist Dr. Queta Ward that provides POTS education, behavioral management strategies, and emotional support with a monthly theme. Patients were reminded of the limits of confidentiality in the group setting and agreed to hold in confidence all matters discussed in the group. This was promoted as a safe space to share one's own experiences, however there was no obligation to do so. If desired and preferred, patients were allowed to keep their camera off to respect individual privacy. Topics in today's SPA included the following: - All participants were women with POTS seen by our autonomic team and age range of 20s-30s, thus able to relate and process shared experiences re: living with invisible chronic illness - Defined invisible chronic illness and associated challenges; emotionally, socially, functionally,and work - Recommendations and participant experiences regarding self-advocacy - Identified feasible support options and how to better pace self in daily life Participation: Ms. Apariico initially connected to the group, however after only a few minutes she lost connection.She sent a Amanda Huff [employer] message to this provider explaining that her phone had a technical problem and requested help w/ reconnecting, however this provider did not see the msg until after the group was over. Therefore, session marked as cancelled for pt as she was unable to attend today's group. Diagnoses: PRIMARY: PTSD Other: Generalized Anxiety Disorder Adjustment Disorder w/ depressed mood POTS Post-acute 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) PLAN: Continue w/ regular mental health services. See the [facility] notes for details of the current medical treatment plan for POTS. Queta Ward PsyD Clinical Psychologist [facility] documented in this encounterCincinnati [facility]09-28-2022 Miscellaneous Notes* Telephone Encounter - Celeste Jaramillo RN - 11/09/2021 10:00 AM EDT MCM to pt with letter signed by ADRIAN. Celeste Jaramillo RN documented in this encounterCincinnati [facility]09-21-2022 History of Present illness Narrative* Jaskaran Guzman APRN.WANDER - 11/02/2021 7:27 AM EDT Answers submitted by the patient for this visit: Compass 31 (Submitted on 10/31/2021) In the past year, have you ever felt faint, dizzy, goofy , or had difficulty thinking soon after standing up from a sitting or lying position?: Yes In the past year, have you ever noticed color changes in your skin, such as red, white, or purple?:No In the past 5 years, what changes, if any, have occurred in your general body sweating?: I sweat somewhat more than I used to Do your eyes feel excessively dry? : No Does your mouth feel excessively dry? : No For the symptom of dry eyes or dry mouth that you have had for the longest period of time, is this symptom:: I have not had any of these symptoms In the past year, have you noticed any changes in how quickly you get full when eating a meal?: I get full a lot less quickly now than I used to In the past year, have you felt excessively full or persistently full (bloated feeling) after a meal?: Never In the past year, have you vomited after a meal? : Never In the past year, have you had a cramping or colicky abdominal pain?: Never In the past year, have you had any bouts of diarrhea?: No In the past year, have you been constipated? : No In the past year, have you ever lost control of your bladder function?: Never In the past year, have you had difficulty passing urine?: Never In the past year, have you had trouble completely emptying your bladder?: Occasionally In the past year, without sunglasses or tinted glasses, has bright light bothered your eyes?: Occasionally In the past year, have you had trouble focusing your eyes?: Never Is this most troublesome symptom with your eyes (i.e. sensitivity to bright light or trouble focusing) getting:: I have not had any of these symptoms (Submitted on 10/31/2021) When standing up, how frequently do you get these feelings or symptoms?: Frequently How would you rate the severity of these feelings or symptoms?: Moderate In the past year, have these feelings or symptoms that you have experienced:: Stayed about the same (Submitted on 10/31/2021) How severe is this sensitivity to bright light?: Mild * Jaskaran Guzman APRN.CNP - 11/02/2021 7:25 AM EDT Yolanda Aparicio is a 26 year old female. Patient presents with: Follow Up Yolanda is here today for follow up of POTS. 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 She has been at physical therapy. She notes that she has been recommended to walk 30 minutes every other day. She has difficulty with consistency in the exercise regimen due to multiple other things going on in life with legal issues, school, and anxiety/PTSD. She is working with psychology here at [facility]. She has only had 3 total sessions. She did see Dr. Ward as well in our department for health psychology. She continues to deal with tachycardia, chest discomfort, shortness of breath, dizziness, fatigue. Chest discomfort can correlate with the sinus tachycardia. She is on metoprolol tartrate 25 mg AM and 12.5 mg PM. She denies any negative side effects. She wants to get to the point that she can return to the gym and restorationism. She has been tried on several medications for management of POTS including: Ivabradine Metoprolol Tartrate (present) Metoprolol Succinate Sodium Chloride Tablets Midodrine Propranolol Medications Reviewed sodium chloride 1 gram tab^TAKE 1 TABLET BY MOUTH 3 TIMES A DAY *TAKE WITH FOOD*^Disp: 90 tablet^Rfl: 5 hydrOXYzine HCl (ATARAX) 10 mg tablet^Take 1 tablet by mouth three times daily as needed.^Disp: 90 tablet^Rfl: 3 gabapentin (NEURONTIN) 300 mg capsule^1 capsule 2x/day^Disp: 180 capsule^Rfl: 3 gabapentin (NEURONTIN) 100 mg capsule^Take 2 capsules by mouth twice daily. (taken with 300mg capsule)^Disp: 360 capsule^Rfl: 3 tiZANidine (ZANAFLEX) 4 mg tablet^Take 1 tablet by mouth daily at bedtime.^Disp: ^Rfl: ondansetron orally disintegrating (ZOFRAN ODT) 4 mg disintegrating tablet^Take 4 mg by mouth once daily as needed.^Disp: ^Rfl: ibuprofen (MOTRIN) 200 mg tablet^Take 200 mg by mouth as needed.^Disp: ^Rfl: acetaminophen (TYLENOL) 500 mg tablet^Take 500 mg by mouth as needed.^Disp: ^Rfl: metoprolol tartrate, short acting, (LOPRESSOR) 25 mg tablet^Take 1 tablet by mouth twice daily.^Disp: 180 tablet^Rfl: 2 Allergies Reviewed PAST MEDICAL HISTORY: ACTIVE PROBLEM LIST Personal History of Covid-19 Intractable Tension-Type Headache Cerebrovascular Disease Facial Paresthesia Pots (Postural Orthostatic Tachycardia Syndrome) Long Covid Cognitive Communication Deficit PAST SURGICAL HISTORY Procedure Laterality Date NONE Social History Tobacco Use Smoking status: Former Packs/day: 0.30 Years: 5.00 Pack years: 1.50 Types: Cigarettes Quit date: 02/13/2016 Years since quittin.7 Smokeless tobacco: Never Vaping Use Vaping Use: Never used Substance Use Topics Alcohol use: No Drug use: Never family history includes Heart Attack in her paternal grandmother; Hyperlipidemia in her father and maternal grandmother; Hypertension in her father; afib in her maternal grandmother. 11/02/21 0728 11/02/21 0811 11/02/21 0812 BP: 120/72 114/66 129/88 BP Position: Supine Standing Pulse: 67 60 73 Weight: 86.2 kg (190 lb) Height: 165.1 cm (5' 5 ) IMPRESSION/PLAN: POTS; Sinus tachycardia; Post COVID syndrome Yolanda is here today for follow up of POTS that is the sequelae of her COVID infection in January 2020. We discussed that POTS is not a pre-existing condition and most commonly is caused by viral illness, head trauma, or small fiber neuropathy. She continues to experience symptoms of postural lightheadedness, tachycardia, postural dizziness, shortness of breath, chest discomfort, and fatigue. Recommendation as follows: Conservative Measures Increased water intake (2-2.5 liters of water daily) Increased salt intake (3-5 grams daily) Compression stockings Exercise is pepe to the recovery of POTS. I encouraged Yolanda to find an exercise regimen that she enjoys and that she can be consistent with. She notes difficulties with enjoyment of walking or recumbent bike. I encouraged her to go back to weight lifting in a reduced capacity (duration per session), but to do this at least 3-4 times per week. We discussed that consistent is pepe. She will stop and rest during a session should she become near syncopal. Shared medical appointment with Dr. Huddleston Medication Changes -increase metoprolol to 25 mg twice daily -next consideration would be the use of Effexor During our virtual visit encounter we discussed my concerns neurologically in terms of diagnosis, impact on health and activities of living, and addressed questions. I tried to reassure the patient and also address questions. I explained to the patient to call if any questions, to review results, and I want to see them return for neurological follow up as mychart as next steps of communication isagreed upon Patient verbalizes understanding and I have addressed concerns and questions at this visit Patient has my contacts, educational material provided, and my chart sign up. After visit summary discussed. I spent a total of 40 minutes on the date of the service which included preparing to see the patient, [id number] patient care, completing clinical documentation, obtaining and/or reviewing separately obtained history, counseling and educating the patient/family/caregiver, and ordering medications, tests, or procedures. ACTIVE PROBLEM LIST Personal History of Covid-19 Intractable Tension-Type Headache Cerebrovascular Disease Facial Paresthesia Pots (Postural Orthostatic Tachycardia Syndrome) Long Covid Cognitive Communication Deficit No orders found for this visit on 11/02/21. Jaskaran Guzman MSN, UTILITY SYSTEM REPAIRER, COACH TOUR DRIVER-C Answers submitted by the patient for this visit: Compass 31 (Submitted on 10/31/2021) In the past year, have you ever felt faint, dizzy, goofy , or had difficulty thinking soon after standing up from a sitting or lying position?: Yes In the past year, have you ever noticed color changes in your skin, such as red, white, or purple?:No In the past 5 years, what changes, if any, have occurred in your general body sweating?: I sweat somewhat more than I used to Do your eyes feel excessively dry? : No Does your mouth feel excessively dry? : No For the symptom of dry eyes or dry mouth that you have had for the longest period of time, is this symptom:: I have not had any of these symptoms In the past year, have you noticed any changes in how quickly you get full when eating a meal?: I get full a lot less quickly now than I used to In the past year, have you felt excessively full or persistently full (bloated feeling) after a meal?: Never In the past year, have you vomited after a meal? : Never In the past year, have you had a cramping or colicky abdominal pain?: Never In the past year, have you had any bouts of diarrhea?: No In the past year, have you been constipated? : No In the past year, have you ever lost control of your bladder function?: Never In the past year, have you had difficulty passing urine?: Never In the past year, have you had trouble completely emptying your bladder?: Occasionally In the past year, without sunglasses or tinted glasses, has bright light bothered your eyes?: Occasionally In the past year, have you had trouble focusing your eyes?: Never Is this most troublesome symptom with your eyes (i.e. sensitivity to bright light or trouble focusing) getting:: I have not had any of these symptoms (Submitted on 10/31/2021) When standing up, how frequently do you get these feelings or symptoms?: Frequently How would you rate the severity of these feelings or symptoms?: Moderate In the past year, have these feelings or symptoms that you have experienced:: Stayed about the same (Submitted on 10/31/2021) How severe is this sensitivity to bright light?: Mild documented in this encounterC[facility] History of Present illness Narrative* Judy Gamez PSYD - 11/01/2021 8:02 AM EDT Due to the federal emergency declaration and the need for ongoing mental health services, the following visit was completed virtually and informed consent obtained orally to reduce the risk of COVID-19 exposure. Oral consent to services related to virtual visits was obtained after information was sent via ReturnHauler or read to patient if Amanda Huff DBA [employer] not available. GENERAL PSYCHOLOGY Session #: 3 (session count starts after PSYL NEW EVAL visit) Today's visit was conducted by: Elver Video Visit Pt identity verified: Yes Location verified: pt at home in [place] Privacy concerns related to pt's present environment discussed: Yes Telehealth Risk Benefit Analysis A) Consistency of presenting problem with use of telehealth services: Engaging effectively in talk therapy which is appropriate to telehealth. B) Client knowledge and skills to use technology: Continues to have the knowledge and skills to participate in telehealth. SUBJECTIVE: Discussed recent stress due to court hearing, stating that the opposing side is lying about her - felt like she had a heavy heart, but felt a little at peace as well - has been thinking about it a lot, the waiting is difficult for her Feels like she would give up on life if she loses her lawsuit, but clarifies that she would not kill herself Discussed experiences during pandemic Concerned she will have difficulty trusting other companies when she returns to work Discussed concerns about OCD - noticed she has been checking website on legal things daily - has also been contacting her satellite manager quite frequently, obsessing over hearings - if there is something she wants to do, like clean the shower she is bothered by it and has to getup and do it - sanitizes hands frequently due to concerns about COVID - in car she will do it multiple times because she thinks she has not done it - when walking near others outside will be bothered thinking they have left COVID in the air - will hold her breath when passing others - will sanitize cups when going through drive through Recently had a dream she went into a public place without a mask on and it freaked her out Patient Data Generalized Anxiety Disorder Scale (ROSE MARIE-7) ROSE MARIE - 7 SCORES 10/17/2021 10/31/2021 10/31/2021 ROSE MARIE-7 Score 7 6 6 (0-4) minimal anxiety, (5-9) mild anxiety, (10-14) moderate anxiety, (15-21) severe anxiety Patient Health Questionnaire (PHQ-9) PHQ-9 10/17/2021 10/31/2021 10/31/2021 Score 7 10 11 (0-4) minimal depression, (5-9) mild depression, (10-14) moderate depression, (15-19) moderately severe depression, (20-27) severe depression PROMIS Global Health PROMIS Global Health - (T-Scores - the mean of general population = 50. Five points is a clinicallymeaningful difference.) 07/13/2021 09/27/2021 10/31/2021 Physical T-Score 32.4 32.4 32.4 Mental T-Score 25.1 21.2 28.4 PCL-5 Total Score: 45 (10/18/2021 8:25 AM) 33 = proposed cut-off score for PTSD symptoms warranting further investigation until further psychometric work is available <33 = subthreshold symptoms of PTSD >24 PTSD is a clinical concern, 33-36 probable PTSD, >37 significant PTSD OBJECTIVE: Some behavioral observations limited due to visit being conducted virtually Mental Status Exam: General/Sensorium: AO X 4 - Appearance: Appears well groomed and stated age - Demeanor: Appropriately interactive - Motor Activity: Normal - Speech: Appropriate - Mood: Anxious - Affect: Congruent with mood - Thought Process: Linear, logical, and goal-directed - Associations: Normal - Thought Content: Appropriate with no SI/HI/AVH - Perceptions: The patient does not appear internally stimulated - Cognition: Appears intact in regards to memory, attention/concentration, fund of knowledge and language skills - Insight: Good - Judgment: Good - ASSESSMENT: Yolanda Aparicio was actively engaged in the session and demonstrated motivation towards therapy goals. Will likely benefit from continued psychotherapy to support management of trauma-related stressors/symptoms. 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) (primary encounter diagnosis) (F43.10) PTSD (post-traumatic stress disorder) (F42.9) Obsessive-compulsive disorder, unspecified type Further evaluation needed to confirm OCD type and severity TREATMENT MODALITIES: Cognitive Behavioral Therapy to cognitive restructuring, DBT PROGRESS TO DATE: Portal Administrator Progress: Progress Short Term Condition: Progress GOALS/OBJECTIVES/INTERVENTIONS: Discussed recent stressors Further discussed OCD Approximately 60 minutes were spent with the patient doing therapy. Judy Gamez PSYD documented in this encounterC[facility] Miscellaneous Notes* Telephone Encounter - Elizabeth Avila Cma - 10/28/2021 3:07 PM EDT Patient listed satellite manager has phoned stating that the Workmans Compensation form/ [employer] will need to be re-faxed to the office. It did not print well enough to read. Please fax the information againespecially the first page as soon as possible hearing will be Sunday and they need that page. Please. . if you need to call them. Thank You. Elizabeth Avila Cma documented in this encounterCincinnati [facility]09-16-2022 Evaluation note* Encounter Date Diagnosis Assessment Notes Treatment Notes Treatment Clinical Notes Oct, Acute cystitis with hematuria (I CD-10 - N30.01) [facility] Other 09-14-2022 History of Present illness Narrative* Wilma Mujica RD - 10/26/2021 10:17 AM EDT [facility] Nutrition Therapy: Virtual Consult - Re-assessment This visit was performed virtually due to the COVID-19 pandemic as an effort to protect patients and minimize exposure. Consent from patient received to conduct visit virtually. This Team Access Model visit is a virtual encounter. It required patient-provider interaction for the medical decision making as documented below. PROGRESS: Nutrition Intervention (date of last encounter 09/07/21): - For now, track food intake 3-4 times per week (every other day) to get a baseline of average calorie intake. - Eventual calorie goal for weight loss to achieve is 0495-3042 calories a day. - Continue to work on reducing the frequency of eating out and preparing healthier meals at home. - Follow-up with nutrition in 6 weeks to discuss findings with average calorie intakes and daily food intakes and we will work on setting 1-2 goals at that time to help with your goals of weight loss. - Maintain therapy weekly with POTS providers and follow exercise guidelines they provide. CHANGES IN TREATMENT: Patient met goal(s): Partially Actions to implement interventions: See assessment Food Recall: Breakfast - oatmeal Lunch - ground turkey OR chicken with various starches and vegetables OR Chipotle OR Stevens's OR [employer] Dinner - same as lunch Snack - Protein bar OR popcorn Beverages - water throughout the day - Worked on tracking foods several times per week to determine trends/patterns. - Noticed some days she was eating only once, not always hungry for meals. - Sill eating out some but trying to make more healthy meals at home. - Eating out 1-2 times per week by report - Walking for therapy with POTS every other day usually. CLINICAL IMPRESSIONS: good ANTHROPOMETRICS Height per patient: 5'4 Weight per patient: 190 lbs Most recent height and weight per EPIC Height: Last 1 Encounter Ht Readings: Date: Ht: 10/26/2021 162.6 cm (5' 4 ) Weight: Last 1 Encounter Wt Readings: Date: Wt: 10/25/2021 86.5 kg (190 lb 9.6 oz) Body mass index is 32.72 kg/m . Resting Metabolic Rate: 1581 Malnutrition Screening Significant unintentional weight loss? No Eating less than 75% of usual intake for more than 2 weeks? No Potential Signs of Inflammation: no identifiable sources Nutritional status: RECOMMENDED MALNUTRITION DIAGNOSIS: NO MALNUTRITION IDENTIFIED Educational materials provided: None this visit Patient presents for follow-up nutrition visit to discuss weight management/desire to lose weight. Since last visit, pt with a 4 lbs increase from last weight reported. States that although she is still eating some meals out/fast food, she has tried to work on reducing frequency and make healthier m eals at home. Not always hungry for meals so some inconsistency with food intakes. Tried to track food intake several times but was not using an yolanda so uncertain of exact calories associated with intakes ad it is likely that calorie intakes higher than recommended amounts for desired weight loss atthis time. Activity remains with walking every other day per POTS therapy guidelines and slowly increasing over time which will likely help with goals of weight loss. See all interventions/recommendations discussed during visit this day. Nutrition Diagnosis: Behavioral-Environmental: Food and nutrition related knowledge deficit, related to, lack of prior exposure to information , as evidenced by client has no prior knowledge of need for food and nutrition - related information. Nutrition Intervention: Modify type and amount of food consumed for meals and snacks: - Try to download the free version of the MyNetDiary yolanda to track daily food intakes as discussed. - Calorie goal for now should be between 1340-4083 calories a day. Another way to think about this is 400-500 calories meals and if having a snack with incorporation of lower calorie meals, snack calories should be between 80-150 calories. - Continue to work on reducing the frequency of eating out and preparing healthier meals at home. - Follow-up with nutrition in 6 weeks to assess progress with things. - Maintain therapy weekly with POTS providers and follow exercise guidelines they provide. Nutrition Monitoring & Evaluation: Weight loss of 1-2 pounds per week and adherence to above recommendations. Criteria: patient update and weight check Need for Follow up: 6 weeks MNT Billing Type: Re-assess/15 min 3 units Signed by: Wilma Mujica RD, LD, CDCES documented in this encounterCincinnati [facility]09-13-[facility] History of Present illness Narrative* Alvin Huddleston, - 10/25/2021 4:27 PM EDT Yolanda Aparicio is a 26 year old female. SHARED MEDICAL APPOINTMENTS: Patient is at home I spent a total of 60 minutes on the date of the service which included [id number] patient care, completing clinical documentation, communicating results to the patient/family/caregiver, and care coordination (not separately reported). Learn about POTS and your diagnosis. Share with your loved ones and support people in your lives Watch repeatedly. [email or web address] CAN COPY AND PASTE THIS LINK INTO A SEARCH BAR OR CAN SEARCH YOUTUBE: FLAQUITO ORTHOSTATIC EXERCISE : VIDEO: WHAT IS POSTURAL ORTHOSTATIC TACHYCARDIA SYNDROME (POTS)? There are many videos to use for self care, education, and helps to do better Based on the volume, frequency, messages in format of texting/or snapchat types/ and repeated mychart messages we receive from patients in a month we can no long address issues of questions, medication changes,disease management in my chart forum effectively for patient care. If there is an urgent issue seek urgent care or medical level ER care. If needed review or see your PCP For POTS patients recommend to use the POTS manual, flaquito orthostatic exercise video on youtube for educational, utilize your chronic self care tools, attend more share medical appointments are recommended POTS Manual: Read the POTS manual online. This will help you understand your POTS diagnosis, work with your medical team, and includes detailed instructions and tips for improved daily living with POTS. [email or web address] Reminder that with health conditions that most medications and other care treatments including rehabilitation /exercise programs need 3-4 months to work . With chronic health conditions may need evenlonger to work if one has been ill and suffered. TIP: We are recommending also for patients in this time of ramped up use of social media to be mindful to check content for accuracy. Also when one post especially think about before posting since can be forever and can have lasting impact on others with hurtful, shaming, hazing, and harm. Often social media posts can be traced back to sender easily in time stamped and content. Sterile Inflammation: The nervous system can create its own inflammatory response. This is not autoimmune, but just inflammation. This response of the nervous system can lead to neuron excitement that is sustained called neuro excitatory and with secondary inflammation. This is how fibromyalgia and migraines behave as well POTS. Some first treatments with anti inflammatory may help these conditions may help, but the core work is approaches of neurological of treating of like a circuit of re wiring via neurological medications, wellness, education work for insights, health psychology, biofeedback, and this work creates new circuits to stop this reaction BENNIE can be false + in women especially in chronic health disease reviewed Over activation of neuro excitatory with growing research can lead to more inflammation and growingdata of muscle pain, joint pain, and even some data of like in fibromyalgia small fiber neuropathy Data of COVID with sustained response reviewed and this ongoing above reviewed and how is similar Pick one activity that is even fun and pleasure to show your brain and body some mormon and solace/peace. Do it daily 5-10 minutes a day at least. Does not have to be even medical. GUT The gut is the second brain Most of serotonin that helps mood, stamina, and pain is in gut. Gut does not work will feels worse in these aspects Adrenaline stops the ability to rest and digest and thus more pain, bloating, IBS, and less good nutrients. More skin isues (acne, eczema, rosacea, dry skin, hair loss,dry hair), leaky gut, normal bacteria leaves, and more digestion challenges /food intolerance Swallow issues /gag/ voice changes since is vagal and adrenaline will make this vagal not work . Gargling, singing, brushing tongue exercises help correct. If can gargle with salt water helps also Most of immune system is in the gut and can lead to much food challenges. Even can be challenge to know what is mast cell and not. Often getting gut right with probiotics, control of POTS, and diet changes to help gut healing helps reduce issue of the gut being inflamed and what may be or could be mast cell . Sugar is very irritating to the gut can cause laxative effect. Also ties into why we may see that dairy, wheat, white food, gluten free is better, and less refined foods are better for pots. The sugar and the altered gut state can lead to poor absorption that lead to sugar spikes, reactive hypoglycemia, and sugar dumps. Adrenaline also leads to insulin use and sugar changes of up and then drop. Sugar spikes and drop leads to fatigue, anxiety, depressive feeling, headache, skin changes, weight up and down, and more. Why being sugar reduced is pepe and helps in POTS. FODMAP diet. Hydration drinks with less sugar and also avoid artificial sweeteners (the artificial sweeteners causes confusion to the body and spike insulin still sense there is sugar). Diets best with small meals, hydration , water, proteins, good fats (ghee butter, olive oils,) veggies, and complex carbs through the day. Have to eat and train the gut as a muscle thus small meals in the day. Diet including polyphenol rich foods (colorful natural ), quercetin foods, and add tumeric help anti oxidants Supplements for helping neural excitable and mitochondrial healing Add each one every few weeks /take in am with good food Co Enzyme Q10 100 mg daily for 4 weeks then go 200 mg daily Alpha lipoic acid 600 mg daily NAD /nicotinamide adenine dinucleotide (NAD) 10 mg daily MAG stearate or glycinate 400 mg daily B12 1000 ucg daily Gut health : Less sugar to no white sugar [place] oils 1 gram daily Probiotics any type and add prebiotic foods Avoid processed foods, too much simple carbs, and too much dairy Any type of brand is good and can over time customize more as you want and learn, but start somewhere Again like any supplement can start small doses if want to adjust More tips: Hydrate with just water about 64 ounces in the day Eliminate sugar as much as can including natura types from the diet Eliminate simple sugars (refined carbs ) and reduce dairy. Small and frequent meals with proteins, complex carbs, veggies, and if use fats good oils (olive oil, avocado, walnut) . Less to no fried food Work on sleep schedule: Go to be same time and up same time with elimination of naps. Initially will be hard. Will have to get up the set time even do not rest well till the schedule sets into of this pattern of sleep pattern formation of the body be settled and wired in. Take small steps with diet and know there will be set backs along the way If have not done our exercise for POTS in the exercise SMA then join us by my chart. If can do any simple exercise 10-15 minutes per day can use our flaquito orthostatic exercise utilizing the sandro chi,qi qong, and chair exercise. Do not have expensive brands or certain brands of supplements or foods Be patient. You have been ill for a long time. It can take 6 months for full benefit to see improvement of brain fog, gut health, stamina, and if has mast cell issues We always start with a discussion of POTS physiology. When you stand two water bottles of blood drop. To compensate, the body speeds up the heart in an effort to get blood to your brain so you don t faint. This is adrenaline and while it may feel terrible it is an autonomic protective mechanism. The brain controls the Autonomic Nervous System. The Sympathetic Nervous System is responsible for stress and survival and is why you feel the symptoms of adrenaline which include but are not limitedto: racing heart rate, chest pain, sweating, neck pain, fainting, near fainting, nausea diarrhea, bloating, frequent urination, skin tingling, ears ringing, heightened senses, inability to sleep, cannot think, brain fog, jerking limbs, muscle tightness and the list goes on... The Parasympathetic Nervous System is responsible for growth and repair, rest and digest. Some of you may notice a drop inheart rate after a sympathetic surge. The polyvagal symptoms may take over: the heart rate and blood pressure drop, you may feel cold, feel the sensation of rubber legs, defecate, urinate etc. This explains the cycle of Fight, Flight, and Freeze. Once your body gives way to adrenaline, you may become listless and exhausted feeling the rag doll effect. GI issues remain one of the constant and most common complaints of those with orthostatic issues. Many suffer with bloating, pain, constipation, and diarrhea. Adrenaline is a huge factor and has an impact on digestion. One cannot rest and digest if in adrenaline mode as the body is in survival mode--focused on other organs and self-preservation. A body in survival does not digest efficiently. The stomach is the second brain. After the brain, most nerve bundles and neurons are located in thegut and can work independent of the brain. Diseases may show in the gut as the first path of violation before presenting as a nervous system disorder. We all know the feeling of butterflies or stomach discomfort. Stomach discomfort can also present in times of acute or chronic stress. The brain gut connection is so strong we may feel nausea, may vomit, and may be unable to eat. 70% of the immune system is located in the gut. The entire GI system is filled with good and bad bacteria. Healthy and unhealthy bacteria. The gut being the second brain and is a good indicator of how well someone is feeling. If GI health is poor,the patient generally feels overall unwell. Adrenaline creates a hostile zone in the gut: bloating, IBS, pain, low serotonin can affect ones mood and cause sadness, pain, malaise depression, fatigue. Allergies food intolerance, mast cell are aresult of immune dysfunction. Leaky gut gets rid of good bacteria and when ones digestion is off they can experience hair loss, weight changes (up or down) acne, dry skin, dry mouth, eczema, and rosacea. 20% of POTS patients have delayed motility and 20% having rapid motility. Eat the best, leave the rest: Small meals, simple proteins Chicken/fish, Hydrate with water, avoid artificial chemicals and sweeteners, Probiotics for balancing and gut healing, supplement with oregano, dameon, and turmeric can also help. These changes take time to see a result. Starting with small doses are always best practice to see how one does when adding a new supplement. Sugar is public enemy number one: It is in a lot of food so check nutrition labels. There are limited amounts in natural foods. Sugaris a gut irritant/ laxative. Known irritants are dairy, wheat, gluten, refined carbs, and white foods. Sugar gives a jolt of energy and then drops it. Sugar can increase fatigue, mood, anxiety, panic attacks, depression, migraines, IBS. Sugar spikes insulin then drops it Adrenaline spikes insulin the drops glucose Gut disorders cause inconsistent glucose absorption The three above compete so it s best to reduce sugar intake found in natural foods such as veggies,complex carbs (brown rice for example) proteins, and good oils. Mast Cell and Food Allergen--start with correcting the gut and see if there is an improvement. We touched on swallowing issues. Swallowing us a vagal response. Some people may be unable to swallow pills, the feel like they are being strangled, lost voice, raspy, dryness, GERD, reflux. Too muchadrenaline. Gargling, salt rinse, tongue brushing, singing and chanting can also help. Treating POTS is essential as things in the body will start to balance. Hydrate with 64 ounces of water per day. Keep it low sugar and try to avoid artificial colors and artificial sweeteners. Moving the body helps the gut and is essential in POTS care. 5-15 minutes per day of wellness can show your brain and body that it can be an adrenaline free zone. Additional supplements to consider: Magnesium Stearate or Glycinate Oregano Pills [place] Oils Prebiotics and Probiotics COQ10 MG Daily Thank you for joining us and we look forward to seeing you in a future SMA. Sincerely, Dr. Huddleston and Kelli Beal Let us start with discussing POTS physiology. When you stand two water bottles of blood drop. To compensate, the body speeds up the heart in an effort to get blood to your brain so you don't faint. This is adrenaline and while it may feel terrible it is an autonomic protective mechanism. The brain controls the Autonomic Nervous System. The Sympathetic Nervous System is responsible for stress and survival. The Parasympathetic Nervous System is responsible for growth and repair. Finding the balance between the Sympathetic and Parasympathetic for those of us living with POTS presents a challenge. The Sympathetic cardiac nerves increase and force of contraction, whereas the Vagus nerve (parasympathetic) decreases heart rate. The Baroreceptor sends signals to the brain. The brain is like a smartphone and creates memories from the experiences as is the case with adrenaline. The brain is tied into speeding up the heartrate and adrenaline. You may notice adrenaline surges coming at around the same time each day. That is the memory-make adrenaline and then do it again and again on a loop. A pattern of symptoms form such as pain, racing heart rate, headaches, and tingling. After this heightened form of adrenaline takes place, the polyvagal symptoms may take over: the heart rate and blood pressure drop, you may feel cold, feel the sensation of rubber legs, defecate, urinate etc. This explains the cycle of Fight, Flight, and Freeze. Once your body gives way to adrenaline, you may become listless and exhausted feeling the rag doll effect. This can last for hour to days. An effective way to lower heart rate is called the COLD EFFECT DIVE REFLEX: If you hold your breathand put your face in cold water, your heart will immediately slow down by 25%. Using a cold washcloth in a plastic sandwich bag can also help lower heart rate. Tongue on roof of soft palate slows heart rate: To perform, curl tongue back to touch the soft palate in the mouth. Your mouth may remain open a tad, make an R sound. Doing this numerous times in a day will reduce adrenaline symptoms such as lowering HR, decreased sweating, and decrease brain fog as well as jitteriness. Another effectiveexercise is performing the Valsalva maneuver to prevent palpitations. To do this 1. Pinch your nose, 2. Close your mouth, 3. Then try to breathe out. To explain at a more scientific and evolutionary level would be to talk about the Mammalian Diving Reflex: A Marine mammals' physiological response when stimulated by cold water submersion is the shunting blood from their peripheral tissues to their body's core. The increased blood volume in the core then stimulates a vagal response which produces profound bradycardia. This shunting of blood fromnon-essential organs and the lowered oxygen demand allows the diving mammal to remain underwater for a prolonged period. We also discussed nose breathing as it is much more effective than mouth breathing when it comes tocalming heart rate. Three breaths in, hold for 8, three breaths out. Over time with proper care, the heart rate is controlled by exercise and medication, but remember it is possible to still feel POTS symptoms with normal vitals. The idea is through wellness modalities to create new memories and files. By realizing this is occurring, being patient with oneself and mi ndfulness, relaxation, and decluttering rework the circuits for more positive experiences The brain does get involved with POTS. The baroreceptor does have localization sites into the brainstem. This is why we can see in head injury cause POTS. Also the brain getting activate in adrenergic state of flight or fight or freeze can cause more than just typical body or heart rate symptoms, but also the brain symptoms of jittery, cannot think, confused at times, restless, headaches, dizzy, jerky limbs, tight muscles, pain, ,less hope, and less creative. The brain as we said is in downstairs mode of the lower center operating and more of the amygdala . This can become more automatic and the default response. The brain is a circuit and remembers this is what it is to do. Recognizing this as occurring is pepe and next steps is to show your brain is okay to learn new ways of circuits is pepe. New ways are via wellness, exercise, medication at times, and even health psychology. We have health psychology here to show nervous system new ways to be again, relaxation tools. Biofeedback, and tips for living with a disease. We can offer this health psychology by sending a [employer] message to us . POTS CHAT--BRAIN MEMORIES--December Thank you so much for joining us on Sunday for the SMA. Let us start with discussing POTS physiology. When you stand two water bottles of blood drop. To compensate, the body speeds up the heart in an effort to get blood to your brain so you don t faint. This is adrenaline and while it may feel terrible it is an autonomic protective mechanism. While manypeople think most POTS patients faint, in reality only about 15% of those with POTS do. POTS symptoms include Tachycardia, lightheadness, brain fog, body pain, GI issues, numbness and tingling limbs,and these are just to name a few--we all know the symptoms can run the gamut. Dizziness is also a chief complaint and can be described in a multitude of ways. Some of us feel like we re rocking on a boat, many have trouble driving, and functioning through the day is also a major challenge when one has vestibular issues. We always start with a discussion of POTS physiology. When you stand two water bottles of blood drop. To compensate, the body speeds up the heart in an effort to get blood to your brain so you don t faint. This is adrenaline and while it may feel terrible it is an autonomic protective mechanism. The brain controls the Autonomic Nervous System. The Sympathetic Nervous System is responsible for stress and survival and is why you feel the symptoms of adrenaline which include but are not limitedto: racing heart rate, chest pain, sweating, neck pain, fainting, near fainting, nausea diarrhea, bloating, frequent urination, skin tingling, ears ringing, heightened senses, inability to sleep, cannot think, brain fog, jerking limbs, muscle tightness and the list goes on... The Parasympathetic Nervous System is responsible for growth and repair, rest and digest. Some of you may notice a drop inheart rate after a sympathetic surge. The polyvagal symptoms may take over: the heart rate and blood pressure drop, you may feel cold, feel the sensation of rubber legs, defecate, urinate etc. This explains the cycle of Fight, Flight, and Freeze. Once your body gives way to adrenaline, you may become listless and exhausted feeling the rag doll effect. Thank you again. Your attendance of the Shared Medical Appointment and involvement in the POTS community is pepe to your success and those who come behind you. Please look at POTS body movement techniques at [employer] orthostatic exercises - YouTube, and please follow our Instagram page [email or web address]. Please take advantage of all of these tools available to you. We are committed to your journey toward restored wellness. We look forward to seeing you again in future SMA s. To schedule the ZOOM POTS SMA please call during Sunday-Sunday 9 am - 4 pm , Please be patient with the phone line as we are in midst of reopening during the pandemic phase We are honored and glad to have you part of the [facility] for POTS Welcome to ZOOM POTS SMA (SHARED MEDICAL APPOINTMENTS) We have learned at the [facility] and especially in my work and our department that POTS thatthere is so much to learn to live well with this condition. So much of the emphasis needs to be on life tips of education, body awareness, community, exercise , daily life tips, and the psychology of living well with POTS. 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 We have even published the benefit of the SMA for POTS. We used to do the SMA in person, but during the pandemic we are starting to do them via ZOOM. For years I have been wanting to do the SMA as a virtual format like ZOOM. The ZOOM SMA is a safe space to be supported. We do request to allow your face to be seen and courtesy language. The session is about 90 minutes long. We will have a topic, questions, and answers. The sessions are not recorded. POTS Manual: Read the POTS manual online. This will help you understand your POTS diagnosis, work with your medical team, and includes detailed instructions and tips for improved daily living with POTS. [email or web address] YouTube: [email or web address] orthostatic exercise Instagram: POTS FLAQUITO Orthostatic Your body has a network of blood vessels made up of arteries, veins, and capillaries. The heart pumps blood into the arteries, which carry the blood throughout the body. Blood pressure is the pressure or force of blood pushing against the schuster of the arteries. Blood pressure is written as two numbers; for example, 120 over 80 millimeters of mercury. The first number is the systolic pressure. This is the pressure in the arteries when the heart beats and fills them with blood. The second number is the diastolic pressure. This is the pressure in the arteries when the heart rests between beats. Orthostatic hypotension is a condition in which your blood pressure falls significantly when you stand up quickly. (Hypotension is low blood pressure.) What are the symptoms of orthostatic The main symptom of may even faint. Other symptoms include: Blurred vision Nausea Disorientation or confusion Feeling weak Fatigue Falling Chest pain Neck pain Cognitive disorder Challenge in breathing Base of neck pain and head pressure Breathing challenge when standing up Legs become weak/ walking challenge/rubbery legs Rebound or surge in blood pressure spikes especially when laying down These symptoms usually clear up when you sit or lie down for a few minutes. THIS NOTE IS FOR AT FIRST FOR MY DOCUMENTATION TO PROVIDE CARE, HELP INSURANCE COMPANY AND COLLEAGUES TO HAVE NEUROLOGICAL CONTEXT OF MY , AND FOR MY PERSONAL RECORDING TO FACILITATE FUTURE CARE BY HAVING A WRITTEN DOCUMENT MEMORY OF OUR CONSULT TOGETHER . THANK YOU FOR UNDERSTANDING THIS OFFICE NOTE IS A PHYSICIAN BASED DOCUMENT FOR COMMUNICATION AND CARE. ACTIVE PROBLEM LIST Personal History of Covid-19 Intractable Tension-Type Headache Cerebrovascular Disease Facial Paresthesia Pots (Postural Orthostatic Tachycardia Syndrome) Long Covid Cognitive Communication Deficit Current Outpatient Medications on File Prior to Visit Medication Sig metoprolol tartrate, short acting, (LOPRESSOR) 25 mg tablet TAKE 1 TABLET BY MOUTH ONCE A DAY IN THE MORNING AND 1/2 TABLET IN THE EVENING sodium chloride 1 gram tab TAKE 1 TABLET BY MOUTH 3 TIMES A DAY *TAKE WITH FOOD* hydrOXYzine HCl (ATARAX) 10 mg tablet Take 1 tablet by mouth three times daily as needed. gabapentin (NEURONTIN) 300 mg capsule 1 capsule 2x/day gabapentin (NEURONTIN) 100 mg capsule Take 2 capsules by mouth twice daily. (taken with 300mg capsule) tiZANidine (ZANAFLEX) 4 mg tablet Take 1 tablet by mouth daily at bedtime. ondansetron orally disintegrating (ZOFRAN ODT) 4 mg disintegrating tablet Take 4 mg by mouth once daily as needed. ibuprofen (MOTRIN) 200 mg tablet Take 200 mg by mouth as needed. acetaminophen (TYLENOL) 500 mg tablet Take 500 mg by mouth as needed. Current Facility-Administered Medications on File Prior to Visit Medication perflutren lipid microspheres 1.3 mL in NaCl (PF) 0.9% 10 mL injection (DEFINITY) sodium chloride 0.9 % (flush) 10 mL (BD POSIFLUSH) FAMILY HISTORY Problem Relation Age of Onset Hypertension Father Hyperlipidemia Father Hyperlipidemia Maternal Grandmother other (afib) Maternal Grandmother Heart Attack Paternal Grandmother PAST SURGICAL HISTORY Procedure Laterality Date NONE 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 If need more salt in water some may add a pinch of water to the water or even Himalayan salt if can tolerate the taste. Electrolyte beverages be mindful of sugar content, dyes, and artificial sugars since can cause bloating, diarrhea, brain fog, headaches, and allergies. Low sugar to no sugar and dyes drinks with of course no caffeine is a goal. Salt loading if causes bloating just do in diet with foods. Diet: people notice sugar, dairy, and gluten/ wheat bother so a diet with less to reduce of the sugar, dairy, to processed carbs help best. With diet proteins (chicken, fish )and good fats (olive oil, avocado oil ) with complex carbs are ideal (veggies, berries, quinoa, brown rice) Sleep : bed same time and up same time; Avoid naps. Eventually though rough will get on this schedule even though feels a challenge Wellness: find something in the day to keep mind body spirit going that helps keep the mind and show the mind that is not in always aware of adrenaline state (journaling, knitting, puzzles, prayer, meditation, breathing, etc . Show the mind and body it can be free of adrenaline fight or flight state Move the body to keep the blood flowing and muscle strong. Can start even with flaquito orthostatic chair exercise or sandro chi /qi qong Probiotics help gut health since most have IBS issues (any brand to get started is a good start) Breathing work: Inspiration heart rate increases with (sympathetic response) based on blood going to lungs and need compensate to get blood shuffle and with expiration heart rate slows down (parasympathetic) . Exercise of amplifying of parasympathetic is to breath response. Take slow breathe inspiration over 3 seconds and then breathes over 5 seconds out with expiration (do exercise via nostril breathing) Alvin Huddleston D.O ELECTRONICALLY SIGNED October 25, 2021 Adult Neurology/ Board Certified Director of Autonomic Center Department of Neuro Muscular of the Neurological Stickney Candy Attendant for Neurology Clerkships Clinical Baby Counselor of Neurology Physician Advisor for the [facility] [employer] Speech Correction Assistant of Mistreatment and Neglect [facility] School Faculty Appointment [facility] Medicine Faculty Appointment [facility] Professor [facility] [employer] [facility] of [facility] / TAX ID: [id number] [address]/ [id number] [place], [place] [address] / consult requested for an opinion regarding the evaluation and treatment of POTS My final impression and recommendations will be communicated back to the requesting physician by way of the shared medical record or letter via US [email or web address]/ Welcome There are videos /playlist/podcast to viewed and helped for exercises and wellness for POTS and Orthostatics Instructions: . HELP WITH MEDICAL PROVIDERS IN LOCAL CARE NOT PART OF THE [facility] To help be successful in care locally with the limits of virtual, my chart , phone calls, and limited in person appointments. This tips sheet helps patients and medical providers. This tips are for guidance and general themes. We do not want them to be customized into individualmy chart message questioning and repeated messages Dear Colleague, This is a tip sheet collaboration to help along in our shared work with the orthostatic to give context and approaches we do with orthostatic patients in our care in the Autonomic Department and you can also bridge into your practice. Thank you for the collaborative work Doctor Guidance for Autonomic Dysfunction SIMPLE FYI ON ORTHOSTATIC MEDICATIONS 1. Florinef: Dosing 0.1 mg at once or twice per day. May need to watch for hypokalemia 2. Midodrine: 2.5 mg daily to 20 mg tid. Have to watch for rebound HTN. 3. Pyridostigmine (60 -240 mg) has helped autonomic symptoms via cholinergic stimulations without raising the BP. 4. POTS patients to control adrenergic symptoms may need beta blockers, calcium channel blockers, and ivabradine. MEDICATIONS OF ORTHOSTATICS, REVIEW OF MEDICATIONS AND SUPPLEMENTS AND BP CHECKS 1. If your clinical discretion is prompted you can hold the medication for the day or longer, but remind the patient and the support person to be careful worsening of syncope and falls. 2. Can if resuming medications can go back and 02/15 to dose 3. SBP > 170 or DBP > 95 over consistent readings is a concern 4. For BP readings we do recommend the patient or support person to check the BP and pulse about three times sitting in the am before coming to the appointment 5. REVIEW ALL MEDICATIONS AND SUPPLEMENTS IN EACH VIIST THAT CAN BE CONTRIBUTORY TO ORTHOSTATICS. SUCH MEDICATIONS ARE ANTI HYPERTENSIVES, ANTI CHOLINERGICS, ANTI PSYCHOTICS, AND MANY BLADDER TREATING MEDICATIONS. SOME POTS PATIENTS WILL NEED BETA BLOCKERS AND CALCIUM CHANNEL BLOCKERS TO CONTROL THE ADRENERGIC VITALS AND SYMPTOMS. ROUTINE LABS: We recommend to use your general medical discretion as any patient to check labs. 1. On Florinef to check potassium 2. Some of the POTS patients are more prone to hypokalemia and may be worthwhile and no interval oftime needed to check potassium. 3. B12 is associated with orthostatic disorder 4. If SICCA is a concern an BENNIE, anti tipton, and anti rho may be helpful 5. If Mast Cell Disease comes up to check an tryptase (concern is > 20 and will need referral toAllergy/Immunology) 6. Thyroid Function Test 7. CBC and CMP annually with any medications of concern EXERCISE: AND REHAB CARE Exercise does help orthostatic patients greatly. Though it seems to be miserable and not feasible for this condition, it does help control symptoms and often improve them. 1. POTS patients bene?t with cardiac rehab. There is repeated data of the cardiac rehab model for POTS to improve and reduce symptoms. At the Clinic the cardiac rehab is a one-time visit and the patient is given the template to do independently. Locally, the cardiac rehab division may help in routine visits. Also utilize free information. Internet search and print the pots manual on the [facility] website POTS Manual: Read the POTS manual online. This will help you understand your POTS diagnosis, work with your medical team, and includes detailed instructions and tips for improved daily living with POTS. [email or web address] POTS [facility] CARDIAC REHAB PROGRAM for patients. 2. Seated chair yoga and if patient can tolerate, sandro chi for balance helps. Also this work helps with inspiration and expiration to help heart rate variability. 3. Seated recumbent bike and even a foot peddle bike at home depending on the level of disability of the patient can help and should be encouraged. 4. Counting steps program with graduating accumulation of steps in the day should be encouraged. A walking program even if the patient just takes for example 50 steps every hour during wakefulness should be encouraged and over time evolve to more steps per interval. 5. PT locally for more muscle strength and maintain gait/balance. 6. Some due to neck pain and the coat changer fixer of neck muscle orthostatic hypo perfusion will developdizziness and vertigo. Vestibular rehab for cervical vertigo may be needed. 7. Gait dysfunction can be for many reasons the underlying neurological diagnosis and inclusive of the impact of deconditioning. There is an orthostatic gait disorder of the elderly where syncope hasto be considered in sudden unexplained falls. SALT LOADIN. The loading of salt can be 3-5 grams per day if it is permitted. 2. Some will do salt tablets that are purchased over the counter. Take with food since can cause nausea. 3. Encourage patients to add salt to nutrient rich food or consume salty foods. (Avoid default foods such as potato chips that are calorie rich but nutrient poor.) 4. Veggie, Chicken, and Beef Broths are good ways for hydration and salt. 5. Pickles and olives are salty snacks. 6. Salt and water loading the patient may note more bloating and increased BMI. More abdominal and pelvic girth can occur. HYDRATION: This matters greatly for orthostatic patients 1. Maintaining 64 -84 ounces per day if allowed with other health issues per day is pepe. 2. Challenges are older persons who will not want to drink as much to avoid night time and frequenturination. We encourage early am hydration. 3. Water helps and is free. Tap water is ?ne. 4. Patients can purchase electrolyte solutions. Again be mindful of cost and if also cause GI symptoms of nausea, bloating, and diarrhea (see under GI health step 7.) 5. Watch if a concern for hyponatremia by ua and bmp. LEG SWELLING: Can occur from the blood pooling from the orthostatic issues. The legs may even turn blue, red, and pale. Some may have even livedo reticularis. 1. Treating the orthostatic disorder will help. 2. Compression stockings knee high, thigh high, and even panty hose can help. 3. Having the patient elevate the legs up above the heart repeatedly during the day will help. 4. If possible, repeatedly do the legs on the wall yoga maneuver. 5. Often legs swell from inactivity. Orthostatic exercise can help greatly. SLEEP: Sleep can be a challenge due to aspects of typical chronic health issues of inconsistent sleep schedule, inactivity, medication effects and even mental health aspects of chronic disease (worriment, rumination of the future, uncertainty). 1. Having the patient maintain same sleep schedule with bed at the same time and awakening the sametime daily is pepe. Try to avoid naps. Keeping the room in the ideal temperature control helps. K[employer]ptechnology out of the room such as tablets, cellphones, TV, and laptops with the screen light that can maintain wakefulness. If patient cannot sleep, have them get up out of bed for 30 minutes or so to read and then go back to bed. 2. Melatonin 3-10 mg to take 2 hours before sleep can help 3. We try to avoid typical sedatives if possible 4. We avoid TCA medications for sleep since can potentiate orthostatic issues 5. Remeron/mirtzatipine 7.5-45 mg at HS can be used for sleep 6. Beta blockers at HS is used for POTS patients to control the adrenergic symptoms 7. Many orthostatic patients have nocturnal symptoms especially due to lack of body movement and reduced circulation of the blood. POTS patients due to the adrenergic response can have more supine chest pain, racing heart rate, restless sleep, nightmares, sweating, and awakenings. The pure autonomic failure, neurogenic orthostatic hypotension, autonomic neuropathy, Parkinson s, and multisystem atrophy patients due to the baroreceptor dysregulation response to help can still have supine HTN events (see below). PAIN: Many patients may have pain from orthostatics. 1. Some have small ?cooper neuropathy that is associated that can cause pain. Typical medications except TCA (due to promoting orthostatic issues) may help nerve pain. 2. Some of the POTS patients have Ehler-Danlos Syndrome that has joint disorder and neuropathy associated. 3. Inactivity causes joint stiffness. 4. Headaches and neck pain from hypoperfusion (there is an orthostatic headache and coat changer fixer syndrome.) Treating the orthostatic syndrome may help, but some may still have pain. 5. Be mindful of medication overuse such as in headaches of medicament overuse and also opioate usedisorder that can amplify pain. Compression Stockings and Garments: They do help, but are a struggle. Encourage patients to try them and explore various modalities if can with medical and non- medical. Again, this can be costly for the patient. Sports brand and non-medical compression stockings and garments may give relief and thepatient may have to shop around to ?nd the right gramajo point for them. 1. Compression stockings to the knee 20-30 mm Hg 2. above the knee thigh high 20-30 mm HG 3. Compression stockings to hip level /panty hose help since most of the blood is in the pelvic area 4. Abdominal binder can be helpful 5. Arm compression sleeve 6. Spanx 7. Encourage the patient to explore and do various combinations of the above. Also to use the gear in different aspects of the day. Most times in hot weather is not permitted outside. Also most cannot wear to bed. GI HEALTH: Many autonomic patients have associated GI complaints of bloating, re?ux, diarrhea, constipation and IBS. 1. Some actually will have de?debra GI motility of gastric and/or colonic motility by gastric empty, colonic motility studies, or capsule endoscopy studies. POTS patients in publications may have rapidmotility due to the adrenergic response. 2. Reviewing all medications for impact or irruption of the GI system is always good. 3. Treating for GERD is helpful. 4. Treating with typical routine care of medication and diet for diarrhea and constipation is helpful. Having the patient follow food triggers may help. Some may bene?t with FODMAP diet for IBS. 5. Maintaining hydration that helps orthostatic self-care helps GI health also. 6. For some the excessive salt loading may contribute to nausea and diarrhea, should be deciphered,and have the patient cut back to see if this is a factor. 7. Some of the purchased electrolyte drinks may cause GI symptoms. Have the patient cut back or change to another form of care to see if this is a factor for their GI symptoms. 8. Some patients need to see GI for evaluation of ulcers, celiac, and consequence of refractory issues of dysmotility. 9. Supplements of magnesium oxide 400 mg bid or tid can help constipation. BLADDER DYSFUNCTION: This can be a common complaint for autonomic patients. 1. POTS patients due to the adrenergic issues have often urgency and frequency symptoms. 2. Due to inactivity many patients will develop some pelvic ?oor dysfunction and thus bene?t with pelvic ?oor physical therapy to strengthen these muscles. 3. Frequent UTIs and Kidney Infections should prompt a Urology consult for bladder atonia and potential urodynamics studies. 4. All routine medications and supplements need to be reviewed that can bother the bladder function. 5. Sometimes the symptoms are challenging to decipher objectively and will need a Urology consult to address. SICCA SYMPTOMS: Often the patient may have dry eyes and mouth symptoms without having diagnostic evidence of Sjogren s Syndrome (lip biopsy.) 1. Eye exam by an top cager to evaluate diagnostically for dry eyes and if needed over the counter or prescription treatments. 2. Dry mouth can be common from routine medications and need to be reviewed as potential culprits. 3. With dry mouth the patient should be referred to the dentist for best care and plan. 4. The patient should be careful with dry mouth not to over use some sugar free treatments for dry mouth since can promote diarrhea and IBS. 5. Dameon in food and supplements may help some dry mouth. 6. If need pilocarpine tablets may be needed. MENTAL HEALTH: Most patients with this disease due to the impact and struggle of daily life of the change of self, burden, uncertainty, and grief will go through various emotions. 1. We encourage patients and their support person to pursue counseling for skills to live with chronic disease. 2. In depression and anxiety medications like SSRI may help with less impact on orthostatic. 3. Medications like Duloetine and Venfaaxline are not as ideal for POTS but the other orthostatic conditions. Actually these medications may help mental health and higher dose raise the BP. The POTS patients due to these drugs mechanism of action may aggravate the adrenergic symptoms. 4. Periodically check for depression, anxiety, and for even conceding SI, SA, HI, [place]. IV FLUIDS: We generally do not support the chronic use of IV ?uids for orthostatic and POTS patients. We also do not condone the use of a port for most patients. Most patients with routine orthostatic care will not need this treatment. 4. MY CHART, we encourage patients to use this portal for medical issues only and to send a brief 1-2 sentences issue. Large messages will encourage a needed virtual appointment perhaps. 5. The patient can always ?nd their of?ce visit in the MY CHART portal. 6. Care Everywhere if EPIC is shared will have our of?ce notes. 7. We encourage all our patients to have a local family medicine team to work with since we cannot handle medical issues by MY CHART, phone call, and are not able to immediately see a patient. 8. The POTS patients can request also the POTS ER letter if needed to have with them for ER and Urgent Care needs. 9. Some Orthostatic and POTS patients may need either or both a Neurologist and a Manager Store locally to be part of their care. DISABILITY: 1. Many of the patients may not be able to work. Due to the diverse scope of the work we do at the Clinic we sincerely cannot attest or keep up with the paperwork for disability. We can at times write of support for disability, but not be the main medical provider of the paperwork. POTS Manual: Read the POTS manual online. This will help you understand your POTS diagnosis, work with your medical team, and includes detailed instructions and tips for improved daily living with POTS. [email or web address] ORTHOSTATIC TIPS Orthostatic Dysfunction--Daily Living Tips Living with a disorder of the autonomic nervous system is life altering. Making lifestyle changes in order to thrive in their day to day and long-term is essential. Orthostatic disorder occurs when the upright positioning of the body causes variable blood pressurechanges that induce symptoms. Your body has a network of blood vessels made up of arteries, veins, and capillaries. The heart pumps blood into the arteries, which carry the blood throughout the body. Blood pressure is the pressure or force of blood pushing against the schuster of the arteries. Blood pressure is written as two numbers--Systolic (top number) and Diastolic (bottom number) for example a normal blood pressure would be read as 120/80. The first number, systolic pressure is the pressure in the arteries when the heart beats and fills them with blood. The second number, diastolicpressure is the pressure in the arteries when the heart rests between beats. Orthostatic hypotension is a condition in which your blood pressure falls significantly when you stand up quickly. The main symptoms of orthostatic disorder is dizziness and feeling lightheaded upon standing. In some cases, people with orthostatic hypotension may even faint. Other symptoms include: Blurred vision Nausea Disorientation or confusion Feeling weak Fatigue Falling Chest pain Neck pain Cognitive disorder Difficulty breathing Base of neck pain and head pressure Weak, rubbery legs, difficulty walking Rebound or surge in blood pressure spikes especially when laying down These symptoms usually clear up when you sit or lie down for a few minutes. BEST PRACTICE DAILY TIPS Please make all postural changes from lying to sitting to standing slowly Drink 2-2.5 liters of fluid per day. On a bad day or with worsening of symptoms, drink 500 cc of water quickly. This will result in an increase in blood pressure within five minutes of drinking the water with the effect lasting up to one hour. In the case of Congestive Heart Failure and Hypertension or any other medical condition with salt restrictions, please follow clinician recommendations regarding fluid and sodium intake. Avoid large meals which can cause low blood pressure during digestion. Eat smaller frequent meals throughout the day. Meals rich in carbohydrates can create more orthostatic symptoms. Avoid alcohol as it can worsen low blood pressure upon standing. Limit caffeine intake as it may increase urine production and reduce blood volume. Compression stockings while somewhat uncomfortable do help those with disorders of the autonomic nervous system. High-waisted leggings can also help as do abdominal binders which are very helpful. Purchase a blood pressure cuff to monitor blood pressure and pulse. Take your vitals per guidance of your provider. Also, when feeling unwell check your vitals and keep a log. This is so providers may review in the future. HYDRATION There are many commercially produced hydration and sports drinks available. If you choose, you can make your own beverage using the recipe from the World Health Organization. This can be cost effective and is free of preservatives. Maintaining 64 -84 ounces per day as long as it is not contraindicated due to other health issues is pepe. Drinking earlier in the day avoids as much to avoid frequent and nighttime urination. Water helps and is free. The recipe is from the World Health Organization (WHO) and is as follows: Filtered (tap or bottled) 1 liter of drinking/tap Mix with teaspoon of salt, six (6) teaspoons of sugar or sugar substitute Let cool This will give you five cups ESSENTIAL PHYSICAL ACTIVITY Part of the daily care involves moving the body. Exercise does help orthostatic patients live better lives. Though it seems challenging, it helps control symptoms and often improve them. Those with this disorder can become physically deconditioned quickly as a result of long periods ofactivity. . The type of exercise and level of difficulty as well as time spent vary from person to person and should be determined by your clinician. Even starting for five to ten minutes per day andworking your way up will make an impact. Pepe is consistency and frequency. Have a support person or manuel present when beginning for safety and guidance. Start slow and reevaluate in a week and then a month. Here are some general tips that are helpful if done daily. Perform lower extremity exercises to improve strength of the leg muscles. This will help prevent blood from pooling in the legs when standing and walking. Preferred exercises are walking, squatting, foot peddle bike, and use of a stationary bicycle. If you are able to walk when counting steps, use your phone, a fit bit, or life logging device to count steps. Gauge your daily steps and over time increase them. Example: 3000 steps per day. Do 300 per hour to 3000 total per day. Seated chair yoga and sandro chi for balance helps. This helps with inspiration and expiration to improve heart rate variability. These options can be found online also. Seated recumbent bike and even a foot peddle bike at home depending on the level of disability of the patient can help be beneficial. A Counting steps program with graduating accumulation of steps in the day should be started. A walking program even if one takes 50 steps every hour during wakefulness should be done and over time evolve to more steps per interval. If indicated, physical therapy locally for more muscle strength and to maintain gait/balance. SOCIAL MEDIA Social Media can be a great resource and a way to connect with people who share your diagnosis. However, it is important to be mindful of the content posted. Everyone has a different journey. Be sureyour information comes from a reliable source and do not take medical advice from social media--always contact your clinicians to review relevant information specific to your condition and follow your own medical plan of care. SALT LOADING: The loading of salt can be 3-5 grams per day if it is permitted. Some will do salt tablets which can be purchased over the counter. Take with food since can cause nausea. Encourage patients to add salt to nutrient rich food or consume salty foods. (Avoid default foods such as potato chips that are calorie rich but nutrient poor.) Veggie, Chicken, and Beef Broths are good ways for hydration and salt. Pickles and olives are salty snacks. Salt and water loading the patient may note more bloating and increased BMI. More abdominal and pelvic girth can occur. Watch for any elevated blood pressure readings. LEG SWELLING: Can occur from the blood pooling from the orthostatic issues. The legs may even turn blue, red, and pale. Some may have even livedo reticularis. Treating the orthostatic disorder will help. Compression stockings knee high, thigh high, and even panty hose can help. Pressure grade 20-30 or higher can be tried to see what helps and is comfortable. Wear them for a few hours in the day, while walking, and mild activity. They are not recommended to wear during sleep. Elevate legs up above the heart repeatedly during the day to reduce swelling. If possible, repeatedly do the legs on the wall yoga maneuver. This can be done while lying in bed. SLEEP: Sleep can be a challenge due to aspects of typical chronic health issues of inconsistent sleep schedule, inactivity, medication effects and even mental health aspects of chronic disease (worriment, rumination of the future, uncertainty). Keep the room the ideal temperature for your comfort. Keep technology out of the room such as tablets, cellphones, TV, and laptops as they can maintain wakefulness. If you cannot sleep, get out of bed for 30 minutes or so to read and then go back to bed. Melatonin 3-10 mg to take 2 hours before sleep can help. Review in your next routine medical appointment if this is an option for you. We try to avoid typical sedatives if possible as they can potentiate orthostatic issues. Many orthostatic patients have nocturnal symptoms especially due to lack of body movement and reduced circulation of the blood. POTS patients due to the adrenergic response can have more supine chestpain, racing heart rate, restless sleep, nightmares, sweating, and awakenings. Go to bed and wake up at the same time daily including weekends. Do not nap more than 30 minutes during the day. PAIN: Many patients may have pain from orthostatic issues Inactivity causes joint stiffness. Exercise and gentle range of movement of the joints will often relive stiffness. Headaches and neck pain from hypo perfusion (an orthostatic headache and coat changer fixer syndrome lay down and goes away.) Treating the orthostatic syndrome may help, but some may still have pain. Review with clinician in follow-up. Think about what makes pain better and what makes it worse and describe during appointment. COMPRESSION STOCKINGS AND GARMENTS: They do help, but can be a struggle. Help from your clinician as well as determining personal preference and effectiveness are pepe. Please note, it may be difficult to wear compression gear in the heat and make sure not to wear to bed. Below are a few general guidelines. Compression stockings to the knee 20-30 mm Hg above the knee thigh high 20-30 mm HG Compression stockings to hip level /panty hose help since most of the blood is in the pelvic area Abdominal binder can be helpful Arm compression sleeve Spanx High waisted leggings GI HEALTH: Many?autonomic?patients have associated GI complaints of bloating, reflux, diarrhea, constipation and IBS. If you notice any food that trigger discomfort, be mindful. Maintaining hydration helps orthostatic self-care and GI health also. Some of the purchased electrolyte drinks may cause GI symptoms. Find which one works for you or make your own hydration drink following the WHO recipe found earlier in this document. Supplements of magnesium oxide 400 mg twice or three times per day can help with constipation. Please check with your provider before starting any new supplements. BLADDER?DYSFUNCTION: This can be a common complaint for?autonomic?patients. Due to inactivity many patients will develop some pelvic floor?dysfunction?and thus benefit from pelvic floor exercises throughout the day to strengthen these muscles. Sometimes the symptoms are challenging to decipher objectively and will need a Urology consult to address. Dry Mouth and Dry Eyes: Often the patient may have dry eyes and mouth symptoms. Eye exam by an top cager to evaluate diagnostically for dry eyes and if needed over the counter or prescription treatments. Dry mouth can be common from routine medications. With dry mouth please see your dentist for best plan of oral hygiene and care. MENTAL HEALTH: Most patients with this disease from the impact and struggle of daily life will go through various emotions. We encourage patients and their support person to pursue counseling for skills to live with chronicdisease. In depression and anxiety medications like SSRI s and SNRI s may help with less impact on orthostatic. These medications may be prescribed by medical providers in follow-up visits if indicated. IV FLUIDS: We generally do not support the chronic use of IV fluids for orthostatic patients. [facility] Instructions* Patient Instructions* Alvin Ng MD - 10/25/2021 11:08 AM EDT We offer free virtual live sandro chi classes available. Go to Wellness [employer] for You Scroll down and click register. I will complete the forms Continue to do therapy, PT, and school Read The Body Keeps the Score by Geoff Cancino PACING. documented in this encounterC[facility] Miscellaneous Notes* Telephone Encounter - Haleigh Parks RN - 10/25/2021 10:55 AM EDT Last OV: 06/01/2021 Last Refill: 08/31/2021 F/U OV: 11/02/2021 Appropriate for refill. Pharmacy not counting last refill. Routed to [place] for review. Haleigh Parks RN, BSN, BA documented in this encounterCinc[facility] History of Present illness Narrative* Alvin Ng MD - 10/25/2021 10:40 AM EDT Wellness Consultation This note was generated with voice recognition software and may contain errors, including spelling,grammar, syntax and misrecognition of what was dictated, that are not fully corrected. Ms.Brandi Donald Aparicio is a 26 year old female with a history of long COVID, referred by [facility] for a wellness and preventive medicine follow up consultation. Current Concerns: See previous notes. Long COVID symptoms have included postural orthostatic tachycardia syndrome with consequent lightheadedness and tachycardia. She has chest pain, shortness of breath, dyspnea on exertion and fatigue. She also complains of brain fog. She is in physical therapy. She is followed by Dr. Huddleston in the POTS clinic. Her metoprolol was recently adjusted and she has follow-up there. Shehas seen a psychologist for 2 visits. Overall she feels discouraged. Her symptoms persist although she has made modest gains in her physical therapy. She has difficulty climbing 1-2 flights of stairs. She has difficulty lifting greater than 10 pounds. Prolonged sitting, standing or walking is difficult. Trying to take virtual [employer] classes ACTIVE PROBLEM LIST Personal History of Covid-19 Intractable Tension-Type Headache Cerebrovascular Disease Facial Paresthesia Pots (Postural Orthostatic Tachycardia Syndrome) Long Covid Cognitive Communication Deficit PAST SURGICAL HISTORY Procedure Laterality Date NONE ALLERGIES Allergen Reactions Amoxicillin-[place]* Other: See Comments extreme dizziness Bactrim [Sulfametho* GI Upset Cephalexin Unknown Ciprofloxacin Unknown Lexapro [Escitalopr* GI Upset [place] Juice Rash Sertraline Mental Status Change, Other: See Comments Trimethoprim Other: See Comments Current Outpatient Medications on File Prior to Visit Medication Sig sodium chloride 1 gram tab TAKE 1 TABLET BY MOUTH 3 TIMES A DAY *TAKE WITH FOOD* metoprolol tartrate, short acting, (LOPRESSOR) 25 mg tablet Take 1 tablet by mouth once daily in morning and 1/2 tablet by mouth daily in evening hydrOXYzine HCl (ATARAX) 10 mg tablet Take 1 tablet by mouth three times daily as needed. gabapentin (NEURONTIN) 300 mg capsule 1 capsule 2x/day gabapentin (NEURONTIN) 100 mg capsule Take 2 capsules by mouth twice daily. (taken with 300mg capsule) tiZANidine (ZANAFLEX) 4 mg tablet Take 1 tablet by mouth daily at bedtime. ondansetron orally disintegrating (ZOFRAN ODT) 4 mg disintegrating tablet Take 4 mg by mouth once daily as needed. ibuprofen (MOTRIN) 200 mg tablet Take 200 mg by mouth as needed. acetaminophen (TYLENOL) 500 mg tablet Take 500 mg by mouth as needed. Current Facility-Administered Medications on File Prior to Visit Medication perflutren lipid microspheres 1.3 mL in NaCl (PF) 0.9% 10 mL injection (DEFINITY) sodium chloride 0.9 % (flush) 10 mL (BD POSIFLUSH) Social History Tobacco Use Smoking status: Former Packs/day: 0.30 Years: 5.00 Pack years: 1.50 Types: Cigarettes Quit date: 02/13/2016 Years since quittin.7 Smokeless tobacco: Never Vaping Use Vaping Use: Never used Substance Use Topics Alcohol use: No Drug use: Never FAMILY HISTORY Problem Relation Age of Onset Hypertension Father Hyperlipidemia Father Hyperlipidemia Maternal Grandmother other (afib) Maternal Grandmother Heart Attack Paternal Grandmother Review of Systems: Denies fever, chills, sweats, weight loss, malaise, anorexia, headache, swollen glands, chest pain,palpitations, SOB, abdominal pain, nausea, vomiting, constipation, diarrhea, melena, hematochezia, urinary frequency/urgency/dysuria/hematuria, vaginal bleeding, edema, numbness, weakness, or paresthesias. Physical Exam WD WN appears tired, no physical distress BP 98/62 (BP Site: Left Arm, BP Position: Sitting, BP Cuff Size: Regular Adult) Ht 162.6 cm (5' 4 ) Wt 86.5 kg (190 lb 9.6 oz) LMP 09/05/2020 (Within Weeks) BMI 32.72 kg/m Skin - warm and dry HEENT - NC/AT EOMI PERRLA Neck - supple no LA or thyromegaly Chest CTAB Cor RRR no f/m/g Abd soft +BS NT NM no HSM Ext No c/c/e. Bilat hip FROM. Neuro - Alert and Or x3. Motor/Sensory nonfocal. IMPRESSION: Ms.Brandi Donald Aparicio is a 26 year old female with a history of long COVID, referred by [facility] for a wellness and preventive medicine follow up consultation. A wellness and preventive medicine approach was discussed with the patient including risks, benefits, and alternatives. She agrees to proceed. It was emphasized that she should continue with all of her current treating caregivers's recommendations. Continue physical therapy, psychotherapy, metoprolol, and follow-up with Dr. Huddleston. Recommend gentle sandro chi which can be helpful with balance and dizziness. [employer]-14 form completed and faxed It has been a pleasure to see Ms. Yolanda Aparicio for a wellness and preventive medicine consultation. I have asked MR/MS Yolanda Aparicio to return to see me 3 months. I spent a total of 40 minutes on the date of the service which included preparing to see the patient, [id number] patient care, completing clinical documentation, obtaining and/or reviewing separately obtained history, performing a medically appropriate examination, counseling and educating the pat ient/family/caregiver, and care coordination (not separately reported). [facility] of Present illness Narrative* Alvin Huddleston, DO - 10/18/2021 4:36 PM EDT Yolanda Aparicio is a 26 year old female. SHARED MEDICAL APPOINTMENTS: Patient is at home I spent a total of 60 minutes on the date of the service which included [id number] patient care, completing clinical documentation, communicating results to the patient/family/caregiver, and care coordination (not separately reported). Learn about POTS and your diagnosis. Share with your loved ones and support people in your lives Watch repeatedly. [email or web address]://youtu.be/[email or web address] CAN COPY AND PASTE THIS LINK INTO A SEARCH BAR OR CAN SEARCH YOUTUBE: FLAQUITO ORTHOSTATIC EXERCISE : VIDEO: WHAT IS POSTURAL ORTHOSTATIC TACHYCARDIA SYNDROME (POTS)? There are many videos to use for self care, education, and helps to do better Based on the volume, frequency, messages in format of texting/or snapchat types/ and repeated SnapLayouthart messages we receive from patients in a month we can no long address issues of questions, medication changes,disease management in my chart forum effectively for patient care. If there is an urgent issue seek urgent care or medical level ER care. If needed review or see your PCP For POTS patients recommend to use the POTS manual, flaquito orthostatic exercise video on youtube for educational, utilize your chronic self care tools, attend more share medical appointments are recommended POTS Manual: Read the POTS manual online. This will help you understand your POTS diagnosis, work with your medical team, and includes detailed instructions and tips for improved daily living with POTS. [email or web address] Reminder that with health conditions that most medications and other care treatments including rehabilitation /exercise programs need 3-4 months to work . With chronic health conditions may need evenlonger to work if one has been ill and suffered. TIP: We are recommending also for patients in this time of ramped up use of social media to be mindful to check content for accuracy. Also when one post especially think about before posting since can be forever and can have lasting impact on others with hurtful, shaming, hazing, and harm. Often social media posts can be traced back to sender easily in time stamped and content. Sterile Inflammation: The nervous system can create its own inflammatory response. This is not autoimmune, but just inflammation. This response of the nervous system can lead to neuron excitement that is sustained called neuro excitatory and with secondary inflammation. This is how fibromyalgia and migraines behave as well POTS. Some first treatments with anti inflammatory may help these conditions may help, but the core work is approaches of neurological of treating of like a circuit of re wiring via neurological medications, wellness, education work for insights, health psychology, biofeedback, and this work creates new circuits to stop this reaction BENNIE can be false + in women especially in chronic health disease reviewed Over activation of neuro excitatory with growing research can lead to more inflammation and growingdata of muscle pain, joint pain, and even some data of like in fibromyalgia small fiber neuropathy Data of COVID with sustained response reviewed and this ongoing above reviewed and how is similar Pick one activity that is even fun and pleasure to show your brain and body some mormon and solace/peace. Do it daily 5-10 minutes a day at least. Does not have to be even medical. GUT The gut is the second brain Most of serotonin that helps mood, stamina, and pain is in gut. Gut does not work will feels worse in these aspects Adrenaline stops the ability to rest and digest and thus more pain, bloating, IBS, and less good nutrients. More skin isues (acne, eczema, rosacea, dry skin, hair loss,dry hair), leaky gut, normal bacteria leaves, and more digestion challenges /food intolerance Swallow issues /gag/ voice changes since is vagal and adrenaline will make this vagal not work . Gargling, singing, brushing tongue exercises help correct. If can gargle with salt water helps also Most of immune system is in the gut and can lead to much food challenges. Even can be challenge to know what is mast cell and not. Often getting gut right with probiotics, control of POTS, and diet changes to help gut healing helps reduce issue of the gut being inflamed and what may be or could be mast cell . Sugar is very irritating to the gut can cause laxative effect. Also ties into why we may see that dairy, wheat, white food, gluten free is better, and less refined foods are better for pots. The sugar and the altered gut state can lead to poor absorption that lead to sugar spikes, reactive hypoglycemia, and sugar dumps. Adrenaline also leads to insulin use and sugar changes of up and then drop. Sugar spikes and drop leads to fatigue, anxiety, depressive feeling, headache, skin changes, weight up and down, and more. Why being sugar reduced is pepe and helps in POTS. FODMAP diet. Hydration drinks with less sugar and also avoid artificial sweeteners (the artificial sweeteners causes confusion to the body and spike insulin still sense there is sugar). Diets best with small meals, hydration , water, proteins, good fats (ghee butter, olive oils,) veggies, and complex carbs through the day. Have to eat and train the gut as a muscle thus small meals in the day. Diet including polyphenol rich foods (colorful natural ), quercetin foods, and add tumeric help anti oxidants Supplements for helping neural excitable and mitochondrial healing Add each one every few weeks /take in am with good food Co Enzyme Q10 100 mg daily for 4 weeks then go 200 mg daily Alpha lipoic acid 600 mg daily NAD /nicotinamide adenine dinucleotide (NAD) 10 mg daily MAG stearate or glycinate 400 mg daily B12 1000 ucg daily Gut health : Less sugar to no white sugar [place] oils 1 gram daily Probiotics any type and add prebiotic foods Avoid processed foods, too much simple carbs, and too much dairy Any type of brand is good and can over time customize more as you want and learn, but start somewhere Again like any supplement can start small doses if want to adjust More tips: Hydrate with just water about 64 ounces in the day Eliminate sugar as much as can including natura types from the diet Eliminate simple sugars (refined carbs ) and reduce dairy. Small and frequent meals with proteins, complex carbs, veggies, and if use fats good oils (olive oil, avocado, walnut) . Less to no fried food Work on sleep schedule: Go to be same time and up same time with elimination of naps. Initially will be hard. Will have to get up the set time even do not rest well till the schedule sets into of this pattern of sleep pattern formation of the body be settled and wired in. Take small steps with diet and know there will be set backs along the way If have not done our exercise for POTS in the exercise SMA then join us by my chart. If can do any simple exercise 10-15 minutes per day can use our flaquito orthostatic exercise utilizing the sandro chi,qi qong, and chair exercise. Do not have expensive brands or certain brands of supplements or foods Be patient. You have been ill for a long time. It can take 6 months for full benefit to see improvement of brain fog, gut health, stamina, and if has mast cell issues We always start with a discussion of POTS physiology. When you stand two water bottles of blood drop. To compensate, the body speeds up the heart in an effort to get blood to your brain so you don t faint. This is adrenaline and while it may feel terrible it is an autonomic protective mechanism. The brain controls the Autonomic Nervous System. The Sympathetic Nervous System is responsible for stress and survival and is why you feel the symptoms of adrenaline which include but are not limitedto: racing heart rate, chest pain, sweating, neck pain, fainting, near fainting, nausea diarrhea, bloating, frequent urination, skin tingling, ears ringing, heightened senses, inability to sleep, cannot think, brain fog, jerking limbs, muscle tightness and the list goes on... The Parasympathetic Nervous System is responsible for growth and repair, rest and digest. Some of you may notice a drop inheart rate after a sympathetic surge. The polyvagal symptoms may take over: the heart rate and blood pressure drop, you may feel cold, feel the sensation of rubber legs, defecate, urinate etc. This explains the cycle of Fight, Flight, and Freeze. Once your body gives way to adrenaline, you may become listless and exhausted feeling the rag doll effect. GI issues remain one of the constant and most common complaints of those with orthostatic issues. Many suffer with bloating, pain, constipation, and diarrhea. Adrenaline is a huge factor and has an impact on digestion. One cannot rest and digest if in adrenaline mode as the body is in survival mode--focused on other organs and self-preservation. A body in survival does not digest efficiently. The stomach is the second brain. After the brain, most nerve bundles and neurons are located in thegut and can work independent of the brain. Diseases may show in the gut as the first path of violation before presenting as a nervous system disorder. We all know the feeling of butterflies or stomach discomfort. Stomach discomfort can also present in times of acute or chronic stress. The brain gut connection is so strong we may feel nausea, may vomit, and may be unable to eat. 70% of the immune system is located in the gut. The entire GI system is filled with good and bad bacteria. Healthy and unhealthy bacteria. The gut being the second brain and is a good indicator of how well someone is feeling. If GI health is poor,the patient generally feels overall unwell. Adrenaline creates a hostile zone in the gut: bloating, IBS, pain, low serotonin can affect ones mood and cause sadness, pain, malaise depression, fatigue. Allergies food intolerance, mast cell are aresult of immune dysfunction. Leaky gut gets rid of good bacteria and when ones digestion is off they can experience hair loss, weight changes (up or down) acne, dry skin, dry mouth, eczema, and rosacea. 20% of POTS patients have delayed motility and 20% having rapid motility. Eat the best, leave the rest: Small meals, simple proteins Chicken/fish, Hydrate with water, avoid artificial chemicals and sweeteners, Probiotics for balancing and gut healing, supplement with oregano, dameon, and turmeric can also help. These changes take time to see a result. Starting with small doses are always best practice to see how one does when adding a new supplement. Sugar is public enemy number one: It is in a lot of food so check nutrition labels. There are limited amounts in natural foods. Sugaris a gut irritant/ laxative. Known irritants are dairy, wheat, gluten, refined carbs, and white foods. Sugar gives a jolt of energy and then drops it. Sugar can increase fatigue, mood, anxiety, panic attacks, depression, migraines, IBS. Sugar spikes insulin then drops it Adrenaline spikes insulin the drops glucose Gut disorders cause inconsistent glucose absorption The three above compete so it s best to reduce sugar intake found in natural foods such as veggies,complex carbs (brown rice for example) proteins, and good oils. Mast Cell and Food Allergen--start with correcting the gut and see if there is an improvement. We touched on swallowing issues. Swallowing us a vagal response. Some people may be unable to swallow pills, the feel like they are being strangled, lost voice, raspy, dryness, GERD, reflux. Too muchadrenaline. Gargling, salt rinse, tongue brushing, singing and chanting can also help. Treating POTS is essential as things in the body will start to balance. Hydrate with 64 ounces of water per day. Keep it low sugar and try to avoid artificial colors and artificial sweeteners. Moving the body helps the gut and is essential in POTS care. 5-15 minutes per day of wellness can show your brain and body that it can be an adrenaline free zone. Additional supplements to consider: Magnesium Stearate or Glycinate Oregano Pills [place] Oils Prebiotics and Probiotics COQ10 MG Daily Thank you for joining us and we look forward to seeing you in a future SMA. Sincerely, Dr. Huddleston and Kelli Beal Let us start with discussing POTS physiology. When you stand two water bottles of blood drop. To compensate, the body speeds up the heart in an effort to get blood to your brain so you don't faint. This is adrenaline and while it may feel terrible it is an autonomic protective mechanism. The brain controls the Autonomic Nervous System. The Sympathetic Nervous System is responsible for stress and survival. The Parasympathetic Nervous System is responsible for growth and repair. Finding the balance between the Sympathetic and Parasympathetic for those of us living with POTS presents a challenge. The Sympathetic cardiac nerves increase and force of contraction, whereas the Vagus nerve (parasympathetic) decreases heart rate. The Baroreceptor sends signals to the brain. The brain is like a smartphone and creates memories from the experiences as is the case with adrenaline. The brain is tied into speeding up the heartrate and adrenaline. You may notice adrenaline surges coming at around the same time each day. That is the memory-make adrenaline and then do it again and again on a loop. A pattern of symptoms form such as pain, racing heart rate, headaches, and tingling. After this heightened form of adrenaline takes place, the polyvagal symptoms may take over: the heart rate and blood pressure drop, you may feel cold, feel the sensation of rubber legs, defecate, urinate etc. This explains the cycle of Fight, Flight, and Freeze. Once your body gives way to adrenaline, you may become listless and exhausted feeling the rag doll effect. This can last for hour to days. An effective way to lower heart rate is called the COLD EFFECT DIVE REFLEX: If you hold your breathand put your face in cold water, your heart will immediately slow down by 25%. Using a cold washcloth in a plastic sandwich bag can also help lower heart rate. Tongue on roof of soft palate slows heart rate: To perform, curl tongue back to touch the soft palate in the mouth. Your mouth may remain open a tad, make an R sound. Doing this numerous times in a day will reduce adrenaline symptoms such as lowering HR, decreased sweating, and decrease brain fog as well as jitteriness. Another effectiveexercise is performing the Valsalva maneuver to prevent palpitations. To do this 1. Pinch your nose, 2. Close your mouth, 3. Then try to breathe out. To explain at a more scientific and evolutionary level would be to talk about the Mammalian Diving Reflex: A Marine mammals' physiological response when stimulated by cold water submersion is the shunting blood from their peripheral tissues to their body's core. The increased blood volume in the core then stimulates a vagal response which produces profound bradycardia. This shunting of blood fromnon-essential organs and the lowered oxygen demand allows the diving mammal to remain underwater for a prolonged period. We also discussed nose breathing as it is much more effective than mouth breathing when it comes tocalming heart rate. Three breaths in, hold for 8, three breaths out. Over time with proper care, the heart rate is controlled by exercise and medication, but remember it is possible to still feel POTS symptoms with normal vitals. The idea is through wellness modalities to create new memories and files. By realizing this is occurring, being patient with oneself and mi ndfulness, relaxation, and decluttering rework the circuits for more positive experiences The brain does get involved with POTS. The baroreceptor does have localization sites into the brainstem. This is why we can see in head injury cause POTS. Also the brain getting activate in adrenergic state of flight or fight or freeze can cause more than just typical body or heart rate symptoms, but also the brain symptoms of jittery, cannot think, confused at times, restless, headaches, dizzy, jerky limbs, tight muscles, pain, ,less hope, and less creative. The brain as we said is in downstairs mode of the lower center operating and more of the amygdala . This can become more automatic and the default response. The brain is a circuit and remembers this is what it is to do. Recognizing this as occurring is pepe and next steps is to show your brain is okay to learn new ways of circuits is pepe. New ways are via wellness, exercise, medication at times, and even health psychology. We have health psychology here to show nervous system new ways to be again, relaxation tools. Biofeedback, and tips for living with a disease. We can offer this health psychology by sending a [employer] message to us . POTS CHAT--BRAIN MEMORIES--December Thank you so much for joining us on Sunday for the [facility]. Let us start with discussing POTS physiology. When you stand two water bottles of blood drop. To compensate, the body speeds up the heart in an effort to get blood to your brain so you don t faint. This is adrenaline and while it may feel terrible it is an autonomic protective mechanism. While manypeople think most POTS patients faint, in reality only about 15% of those with POTS do. POTS symptoms include Tachycardia, lightheadness, brain fog, body pain, GI issues, numbness and tingling limbs,and these are just to name a few--we all know the symptoms can run the gamut. Dizziness is also a chief complaint and can be described in a multitude of ways. Some of us feel like we re rocking on a boat, many have trouble driving, and functioning through the day is also a major challenge when one has vestibular issues. We always start with a discussion of POTS physiology. When you stand two water bottles of blood drop. To compensate, the body speeds up the heart in an effort to get blood to your brain so you don t faint. This is adrenaline and while it may feel terrible it is an autonomic protective mechanism. The brain controls the Autonomic Nervous System. The Sympathetic Nervous System is responsible for stress and survival and is why you feel the symptoms of adrenaline which include but are not limitedto: racing heart rate, chest pain, sweating, neck pain, fainting, near fainting, nausea diarrhea, bloating, frequent urination, skin tingling, ears ringing, heightened senses, inability to sleep, cannot think, brain fog, jerking limbs, muscle tightness and the list goes on... The Parasympathetic Nervous System is responsible for growth and repair, rest and digest. Some of you may notice a drop inheart rate after a sympathetic surge. The polyvagal symptoms may take over: the heart rate and blood pressure drop, you may feel cold, feel the sensation of rubber legs, defecate, urinate etc. This explains the cycle of Fight, Flight, and Freeze. Once your body gives way to adrenaline, you may become listless and exhausted feeling the rag doll effect. Thank you again. Your attendance of the Shared Medical Appointment and involvement in the POTS community is pepe to your success and those who come behind you. Please look at POTS body movement techniques at [employer] orthostatic exercises - YouTube, and please follow our Instagram page [email or web address]. Please take advantage of all of these tools available to you. We are committed to your journey toward restored wellness. We look forward to seeing you again in future SMA s. To schedule the ZOOM POTS SMA please call during Sunday-Sunday 9 am - 4 pm , Please be patient with the phone line as we are in midst of reopening during the pandemic phase We are honored and glad to have you part of the SMA for POTS Welcome to ZOOM POTS SMA (SHARED MEDICAL APPOINTMENTS) We have learned at the [facility] and especially in my work and our department that POTS thatthere is so much to learn to live well with this condition. So much of the emphasis needs to be on life tips of education, body awareness, community, exercise , daily life tips, and the psychology of living well with POTS. 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 We have even published the benefit of the SMA for POTS. We used to do the SMA in person, but during the pandemic we are starting to do them via ZOOM. For years I have been wanting to do the SMA as a virtual format like ZOOM. The ZOOM SMA is a safe space to be supported. We do request to allow your face to be seen and courtesy language. The session is about 90 minutes long. We will have a topic, questions, and answers. The sessions are not recorded. POTS Manual: Read the POTS manual online. This will help you understand your POTS diagnosis, work with your medical team, and includes detailed instructions and tips for improved daily living with POTS. [email or web address] YouTube: flaquito orthostatic exercise Instagram: POTS FLAQUITO Orthostatic Your body has a network of blood vessels made up of arteries, veins, and capillaries. The heart pumps blood into the arteries, which carry the blood throughout the body. Blood pressure is the pressure or force of blood pushing against the schuster of the arteries. Blood pressure is written as two numbers; for example, 120 over 80 millimeters of mercury. The first number is the systolic pressure. This is the pressure in the arteries when the heart beats and fills them with blood. The second number is the diastolic pressure. This is the pressure in the arteries when the heart rests between beats. Orthostatic hypotension is a condition in which your blood pressure falls significantly when you stand up quickly. (Hypotension is low blood pressure.) What are the symptoms of orthostatic The main symptom of may even faint. Other symptoms include: Blurred vision Nausea Disorientation or confusion Feeling weak Fatigue Falling Chest pain Neck pain Cognitive disorder Challenge in breathing Base of neck pain and head pressure Breathing challenge when standing up Legs become weak/ walking challenge/rubbery legs Rebound or surge in blood pressure spikes especially when laying down These symptoms usually clear up when you sit or lie down for a few minutes. THIS NOTE IS FOR AT FIRST FOR MY DOCUMENTATION TO PROVIDE CARE, HELP INSURANCE COMPANY AND COLLEAGUES TO HAVE NEUROLOGICAL CONTEXT OF MY , AND FOR MY PERSONAL RECORDING TO FACILITATE FUTURE CARE BY HAVING A WRITTEN DOCUMENT MEMORY OF OUR CONSULT TOGETHER . THANK YOU FOR UNDERSTANDING THIS OFFICE NOTE IS A PHYSICIAN BASED DOCUMENT FOR COMMUNICATION AND CARE. ACTIVE PROBLEM LIST Covid-19 Personal History of Covid-19 Intractable Tension-Type Headache Cerebrovascular Disease Facial Paresthesia Pots (Postural Orthostatic Tachycardia Syndrome) Long Covid Cognitive Communication Deficit Current Outpatient Medications on File Prior to Visit Medication Sig sodium chloride 1 gram tab TAKE 1 TABLET BY MOUTH 3 TIMES A DAY *TAKE WITH FOOD* metoprolol tartrate, short acting, (LOPRESSOR) 25 mg tablet Take 1 tablet by mouth once daily in morning and 1/2 tablet by mouth daily in evening hydrOXYzine HCl (ATARAX) 10 mg tablet Take 1 tablet by mouth three times daily as needed. gabapentin (NEURONTIN) 300 mg capsule 1 capsule 2x/day gabapentin (NEURONTIN) 100 mg capsule Take 2 capsules by mouth twice daily. (taken with 300mg capsule) tiZANidine (ZANAFLEX) 4 mg tablet Take 1 tablet by mouth daily at bedtime. ondansetron orally disintegrating (ZOFRAN ODT) 4 mg disintegrating tablet Take 4 mg by mouth once daily as needed. ibuprofen (MOTRIN) 200 mg tablet Take 200 mg by mouth as needed. acetaminophen (TYLENOL) 500 mg tablet Take 500 mg by mouth as needed. Current Facility-Administered Medications on File Prior to Visit Medication perflutren lipid microspheres 1.3 mL in NaCl (PF) 0.9% 10 mL injection (DEFINITY) sodium chloride 0.9 % (flush) 10 mL (BD POSIFLUSH) FAMILY HISTORY Problem Relation Age of Onset Hypertension Father Hyperlipidemia Father Hyperlipidemia Maternal Grandmother other (afib) Maternal Grandmother Heart Attack Paternal Grandmother PAST SURGICAL HISTORY Procedure Laterality Date NONE 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 If need more salt in water some may add a pinch of water to the water or even Himalayan salt if can tolerate the taste. Electrolyte beverages be mindful of sugar content, dyes, and artificial sugars since can cause bloating, diarrhea, brain fog, headaches, and allergies. Low sugar to no sugar and dyes drinks with of course no caffeine is a goal. Salt loading if causes bloating just do in diet with foods. Diet: people notice sugar, dairy, and gluten/ wheat bother so a diet with less to reduce of the sugar, dairy, to processed carbs help best. With diet proteins (chicken, fish )and good fats (olive oil, avocado oil ) with complex carbs are ideal (veggies, berries, quinoa, brown rice) Sleep : bed same time and up same time; Avoid naps. Eventually though rough will get on this schedule even though feels a challenge Wellness: find something in the day to keep mind body spirit going that helps keep the mind and show the mind that is not in always aware of adrenaline state (journaling, knitting, puzzles, prayer, meditation, breathing, etc . Show the mind and body it can be free of adrenaline fight or flight state Move the body to keep the blood flowing and muscle strong. Can start even with flaquito orthostatic chair exercise or sandro chi /qi qong Probiotics help gut health since most have IBS issues (any brand to get started is a good start) Breathing work: Inspiration heart rate increases with (sympathetic response) based on blood going to lungs and need compensate to get blood shuffle and with expiration heart rate slows down (parasympathetic) . Exercise of amplifying of parasympathetic is to breath response. Take slow breathe inspiration over 3 seconds and then breathes over 5 seconds out with expiration (do exercise via nostril breathing) Alvin Huddleston D.O ELECTRONICALLY SIGNED October 18, 2021 Adult Neurology/ Board Certified Director of Autonomic Center Department of Neuro Muscular of the Neurological Stickney Candy Attendant for Neurology Clerkships Clinical Baby Counselor of Neurology Physician Advisor for the [facility] Neurology Speech Correction Assistant of Mistreatment and Neglect [facility] School Faculty Appointment [facility] Medicine Faculty Appointment [facility]ica Professor [facility] [employer] [facility] / TAX ID: [id number] [address]/ [id number] [place] [address] / consult requested for an opinion regarding the evaluation and treatment of POTS My final impression and recommendations will be communicated back to the requesting physician by way of the shared medical record or letter via US [id number]/ Welcome There are videos /playlist/podcast to viewed and helped for exercises and wellness for POTS and Orthostatics Instructions: . HELP WITH MEDICAL PROVIDERS IN LOCAL CARE NOT PART OF THE [facility] To help be successful in care locally with the limits of virtual, my chart , phone calls, and limited in person appointments. This tips sheet helps patients and medical providers. This tips are for guidance and general themes. We do not want them to be customized into individualmy chart message questioning and repeated messages Dear Colleague, This is a tip sheet collaboration to help along in our shared work with the orthostatic to give context and approaches we do with orthostatic patients in our care in the Autonomic Department and you can also bridge into your practice. Thank you for the collaborative work Doctor Guidance for Autonomic Dysfunction SIMPLE FYI ON ORTHOSTATIC MEDICATIONS 1. Florinef: Dosing 0.1 mg at once or twice per day. May need to watch for hypokalemia 2. Midodrine: 2.5 mg daily to 20 mg tid. Have to watch for rebound HTN. 3. Pyridostigmine (60 -240 mg) has helped autonomic symptoms via cholinergic stimulations without raising the BP. 4. POTS patients to control adrenergic symptoms may need beta blockers, calcium channel blockers, and ivabradine. MEDICATIONS OF ORTHOSTATICS, REVIEW OF MEDICATIONS AND SUPPLEMENTS AND BP CHECKS 1. If your clinical discretion is prompted you can hold the medication for the day or longer, but remind the patient and the support person to be careful worsening of syncope and falls. 2. Can if resuming medications can go back and / to / dose 3. SBP > 170 or DBP > 95 over consistent readings is a concern 4. For BP readings we do recommend the patient or support person to check the BP and pulse about three times sitting in the am before coming to the appointment 5. REVIEW ALL MEDICATIONS AND SUPPLEMENTS IN EACH VIIST THAT CAN BE CONTRIBUTORY TO ORTHOSTATICS. SUCH MEDICATIONS ARE ANTI HYPERTENSIVES, ANTI CHOLINERGICS, ANTI PSYCHOTICS, AND MANY BLADDER TREATING MEDICATIONS. SOME POTS PATIENTS WILL NEED BETA BLOCKERS AND CALCIUM CHANNEL BLOCKERS TO CONTROL THE ADRENERGIC VITALS AND SYMPTOMS. ROUTINE LABS: We recommend to use your general medical discretion as any patient to check labs. 1. On Florinef to check potassium 2. Some of the POTS patients are more prone to hypokalemia and may be worthwhile and no interval oftime needed to check potassium. 3. B12 is associated with orthostatic disorder 4. If SICCA is a concern an BENNIE, anti tipton, and anti rho may be helpful 5. If Mast Cell Disease comes up to check an tryptase (concern is > 20 and will need referral toAllergy/Immunology) 6. Thyroid Function Test 7. CBC and CMP annually with any medications of concern EXERCISE: AND REHAB CARE Exercise does help orthostatic patients greatly. Though it seems to be miserable and not feasible for this condition, it does help control symptoms and often improve them. 1. POTS patients bene?t with cardiac rehab. There is repeated data of the cardiac rehab model for POTS to improve and reduce symptoms. At the Clinic the cardiac rehab is a one-time visit and the patient is given the template to do independently. Locally, the cardiac rehab division may help in routine visits. Also utilize free information. Internet search and print the pots manual on the [facility] website POTS Manual: Read the POTS manual online. This will help you understand your POTS diagnosis, work with your medical team, and includes detailed instructions and tips for improved daily living with POTS. [email or web address] POTS [facility] CARDIAC REHAB PROGRAM for patients. 2. Seated chair yoga and if patient can tolerate, sandro chi for balance helps. Also this work helps with inspiration and expiration to help heart rate variability. 3. Seated recumbent bike and even a foot peddle bike at home depending on the level of disability of the patient can help and should be encouraged. 4. Counting steps program with graduating accumulation of steps in the day should be encouraged. A walking program even if the patient just takes for example 50 steps every hour during wakefulness should be encouraged and over time evolve to more steps per interval. 5. PT locally for more muscle strength and maintain gait/balance. 6. Some due to neck pain and the coat changer fixer of neck muscle orthostatic hypo perfusion will developdizziness and vertigo. Vestibular rehab for cervical vertigo may be needed. 7. Gait dysfunction can be for many reasons the underlying neurological diagnosis and inclusive of the impact of deconditioning. There is an orthostatic gait disorder of the elderly where syncope hasto be considered in sudden unexplained falls. SALT LOADIN. The loading of salt can be 3-5 grams per day if it is permitted. 2. Some will do salt tablets that are purchased over the counter. Take with food since can cause nausea. 3. Encourage patients to add salt to nutrient rich food or consume salty foods. (Avoid default foods such as potato chips that are calorie rich but nutrient poor.) 4. Veggie, Chicken, and Beef Broths are good ways for hydration and salt. 5. Pickles and olives are salty snacks. 6. Salt and water loading the patient may note more bloating and increased BMI. More abdominal and pelvic girth can occur. HYDRATION: This matters greatly for orthostatic patients 1. Maintaining 64 -84 ounces per day if allowed with other health issues per day is pepe. 2. Challenges are older persons who will not want to drink as much to avoid night time and frequenturination. We encourage early am hydration. 3. Water helps and is free. Tap water is ?ne. 4. Patients can purchase electrolyte solutions. Again be mindful of cost and if also cause GI symptoms of nausea, bloating, and diarrhea (see under GI health step 7.) 5. Watch if a concern for hyponatremia by ua and bmp. LEG SWELLING: Can occur from the blood pooling from the orthostatic issues. The legs may even turn blue, red, and pale. Some may have even livedo reticularis. 1. Treating the orthostatic disorder will help. 2. Compression stockings knee high, thigh high, and even panty hose can help. 3. Having the patient elevate the legs up above the heart repeatedly during the day will help. 4. If possible, repeatedly do the legs on the wall yoga maneuver. 5. Often legs swell from inactivity. Orthostatic exercise can help greatly. SLEEP: Sleep can be a challenge due to aspects of typical chronic health issues of inconsistent sleep schedule, inactivity, medication effects and even mental health aspects of chronic disease (worriment, rumination of the future, uncertainty). 1. Having the patient maintain same sleep schedule with bed at the same time and awakening the sametime daily is pepe. Try to avoid naps. Keeping the room in the ideal temperature control helps. Keeptechnology out of the room such as tablets, cellphones, TV, and laptops with the screen light that can maintain wakefulness. If patient cannot sleep, have them get up out of bed for 30 minutes or so to read and then go back to bed. 2. Melatonin 3-10 mg to take 2 hours before sleep can help 3. We try to avoid typical sedatives if possible 4. We avoid TCA medications for sleep since can potentiate orthostatic issues 5. Remeron/mirtzatipine 7.5-45 mg at HS can be used for sleep 6. Beta blockers at HS is used for POTS patients to control the adrenergic symptoms 7. Many orthostatic patients have nocturnal symptoms especially due to lack of body movement and reduced circulation of the blood. POTS patients due to the adrenergic response can have more supine chest pain, racing heart rate, restless sleep, nightmares, sweating, and awakenings. The pure autonomic failure, neurogenic orthostatic hypotension, autonomic neuropathy, Parkinson s, and multisystem atrophy patients due to the baroreceptor dysregulation response to help can still have supine HTN events (see below). PAIN: Many patients may have pain from orthostatics. 1. Some have small ?cooper neuropathy that is associated that can cause pain. Typical medications except TCA (due to promoting orthostatic issues) may help nerve pain. 2. Some of the POTS patients have Ehler-Danlos Syndrome that has joint disorder and neuropathy associated. 3. Inactivity causes joint stiffness. 4. Headaches and neck pain from hypoperfusion (there is an orthostatic headache and coat changer fixer syndrome.) Treating the orthostatic syndrome may help, but some may still have pain. 5. Be mindful of medication overuse such as in headaches of medicament overuse and also opioate usedisorder that can amplify pain. Compression Stockings and Garments: They do help, but are a struggle. Encourage patients to try them and explore various modalities if can with medical and non- medical. Again, this can be costly for the patient. Sports brand and non-medical compression stockings and garments may give relief and thepatient may have to shop around to ?nd the right gramajo point for them. 1. Compression stockings to the knee 20-30 mm Hg 2. above the knee thigh high 20-30 mm HG 3. Compression stockings to hip level /panty hose help since most of the blood is in the pelvic area 4. Abdominal binder can be helpful 5. Arm compression sleeve 6. Spanx 7. Encourage the patient to explore and do various combinations of the above. Also to use the gear in different aspects of the day. Most times in hot weather is not permitted outside. Also most cannot wear to bed. GI HEALTH: Many autonomic patients have associated GI complaints of bloating, re?ux, diarrhea, constipation and IBS. 1. Some actually will have de?debra GI motility of gastric and/or colonic motility by gastric empty, colonic motility studies, or capsule endoscopy studies. POTS patients in publications may have rapidmotility due to the adrenergic response. 2. Reviewing all medications for impact or irruption of the GI system is always good. 3. Treating for GERD is helpful. 4. Treating with typical routine care of medication and diet for diarrhea and constipation is helpful. Having the patient follow food triggers may help. Some may bene?t with FODMAP diet for IBS. 5. Maintaining hydration that helps orthostatic self-care helps GI health also. 6. For some the excessive salt loading may contribute to nausea and diarrhea, should be deciphered,and have the patient cut back to see if this is a factor. 7. Some of the purchased electrolyte drinks may cause GI symptoms. Have the patient cut back or change to another form of care to see if this is a factor for their GI symptoms. 8. Some patients need to see GI for evaluation of ulcers, celiac, and consequence of refractory issues of dysmotility. 9. Supplements of magnesium oxide 400 mg bid or tid can help constipation. BLADDER DYSFUNCTION: This can be a common complaint for autonomic patients. 1. POTS patients due to the adrenergic issues have often urgency and frequency symptoms. 2. Due to inactivity many patients will develop some pelvic ?oor dysfunction and thus bene?t with pelvic ?oor physical therapy to strengthen these muscles. 3. Frequent UTIs and Kidney Infections should prompt a Urology consult for bladder atonia and potential urodynamics studies. 4. All routine medications and supplements need to be reviewed that can bother the bladder function. 5. Sometimes the symptoms are challenging to decipher objectively and will need a Urology consult to address. SICCA SYMPTOMS: Often the patient may have dry eyes and mouth symptoms without having diagnostic evidence of Sjogren s Syndrome (lip biopsy.) 1. Eye exam by an top cager to evaluate diagnostically for dry eyes and if needed over the counter or prescription treatments. 2. Dry mouth can be common from routine medications and need to be reviewed as potential culprits. 3. With dry mouth the patient should be referred to the dentist for best care and plan. 4. The patient should be careful with dry mouth not to over use some sugar free treatments for dry mouth since can promote diarrhea and IBS. 5. Dameon in food and supplements may help some dry mouth. 6. If need pilocarpine tablets may be needed. MENTAL HEALTH: Most patients with this disease due to the impact and struggle of daily life of the change of self, burden, uncertainty, and grief will go through various emotions. 1. We encourage patients and their support person to pursue counseling for skills to live with chronic disease. 2. In depression and anxiety medications like SSRI may help with less impact on orthostatic. 3. Medications like Duloetine and Venfaaxline are not as ideal for POTS but the other orthostatic conditions. Actually these medications may help mental health and higher dose raise the BP. The POTS patients due to these drugs mechanism of action may aggravate the adrenergic symptoms. 4. Periodically check for depression, anxiety, and for even conceding SI, SA, HI, [place]. IV FLUIDS: We generally do not support the chronic use of IV ?uids for orthostatic and POTS patients. We also do not condone the use of a port for most patients. Most patients with routine orthostatic care will not need this treatment. 4. MY CHART, we encourage patients to use this portal for medical issues only and to send a brief 1-2 sentences issue. Large messages will encourage a needed virtual appointment perhaps. 5. The patient can always ?nd their of?ce visit in the MY CHART portal. 6. Care Everywhere if EPIC is shared will have our of?ce notes. 7. We encourage all our patients to have a local family medicine team to work with since we cannot handle medical issues by MY CHART, phone call, and are not able to immediately see a patient. 8. The POTS patients can request also the POTS ER letter if needed to have with them for ER and Urgent Care needs. 9. Some Orthostatic and POTS patients may need either or both a Neurologist and a Manager Store locally to be part of their care. DISABILITY: 1. Many of the patients may not be able to work. Due to the diverse scope of the work we do at the Clinic we sincerely cannot attest or keep up with the paperwork for disability. We can at times write of support for disability, but not be the main medical provider of the paperwork. POTS Manual: Read the POTS manual online. This will help you understand your POTS diagnosis, work with your medical team, and includes detailed instructions and tips for improved daily living with POTS. [email or web address] ORTHOSTATIC TIPS Orthostatic Dysfunction--Daily Living Tips Living with a disorder of the autonomic nervous system is life altering. Making lifestyle changes in order to thrive in their day to day and long-term is essential. Orthostatic disorder occurs when the upright positioning of the body causes variable blood pressurechanges that induce symptoms. Your body has a network of blood vessels made up of arteries, veins, and capillaries. The heart pumps blood into the arteries, which carry the blood throughout the body. Blood pressure is the pressure or force of blood pushing against the schuster of the arteries. Blood pressure is written as two numbers--Systolic (top number) and Diastolic (bottom number) for example a normal blood pressure would be read as 120/80. The first number, systolic pressure is the pressure in the arteries when the heart beats and fills them with blood. The second number, diastolicpressure is the pressure in the arteries when the heart rests between beats. Orthostatic hypotension is a condition in which your blood pressure falls significantly when you stand up quickly. The main symptoms of orthostatic disorder is dizziness and feeling lightheaded upon standing. In some cases, people with orthostatic hypotension may even faint. Other symptoms include: Blurred vision Nausea Disorientation or confusion Feeling weak Fatigue Falling Chest pain Neck pain Cognitive disorder Difficulty breathing Base of neck pain and head pressure Weak, rubbery legs, difficulty walking Rebound or surge in blood pressure spikes especially when laying down These symptoms usually clear up when you sit or lie down for a few minutes. BEST PRACTICE DAILY TIPS Please make all postural changes from lying to sitting to standing slowly Drink 2-2.5 liters of fluid per day. On a bad day or with worsening of symptoms, drink 500 cc of water quickly. This will result in an increase in blood pressure within five minutes of drinking the water with the effect lasting up to one hour. In the case of Congestive Heart Failure and Hypertension or any other medical condition with salt restrictions, please follow clinician recommendations regarding fluid and sodium intake. Avoid large meals which can cause low blood pressure during digestion. Eat smaller frequent meals throughout the day. Meals rich in carbohydrates can create more orthostatic symptoms. Avoid alcohol as it can worsen low blood pressure upon standing. Limit caffeine intake as it may increase urine production and reduce blood volume. Compression stockings while somewhat uncomfortable do help those with disorders of the autonomic nervous system. High-waisted leggings can also help as do abdominal binders which are very helpful. Purchase a blood pressure cuff to monitor blood pressure and pulse. Take your vitals per guidance of your provider. Also, when feeling unwell check your vitals and keep a log. This is so providers may review in the future. HYDRATION There are many commercially produced hydration and sports drinks available. If you choose, you can make your own beverage using the recipe from the World Health Organization. This can be cost effective and is free of preservatives. Maintaining 64 -84 ounces per day as long as it is not contraindicated due to other health issues is pepe. Drinking earlier in the day avoids as much to avoid frequent and nighttime urination. Water helps and is free. The recipe is from the World Health Organization (WHO) and is as follows: Filtered (tap or bottled) 1 liter of drinking/tap Mix with teaspoon of salt, six (6) teaspoons of sugar or sugar substitute Let cool This will give you five cups ESSENTIAL PHYSICAL ACTIVITY Part of the daily care involves moving the body. Exercise does help orthostatic patients live better lives. Though it seems challenging, it helps control symptoms and often improve them. Those with this disorder can become physically deconditioned quickly as a result of long periods ofactivity. . The type of exercise and level of difficulty as well as time spent vary from person to person and should be determined by your clinician. Even starting for five to ten minutes per day andworking your way up will make an impact. Pepe is consistency and frequency. Have a support person or manuel present when beginning for safety and guidance. Start slow and reevaluate in a week and then a month. Here are some general tips that are helpful if done daily. Perform lower extremity exercises to improve strength of the leg muscles. This will help prevent blood from pooling in the legs when standing and walking. Preferred exercises are walking, squatting, foot peddle bike, and use of a stationary bicycle. If you are able to walk when counting steps, use your phone, a fit bit, or life logging device to count steps. Gauge your daily steps and over time increase them. Example: 3000 steps per day. Do 300 per hour to 3000 total per day. Seated chair yoga and sandro chi for balance helps. This helps with inspiration and expiration to improve heart rate variability. These options can be found online also. Seated recumbent bike and even a foot peddle bike at home depending on the level of disability of the patient can help be beneficial. A Counting steps program with graduating accumulation of steps in the day should be started. A walking program even if one takes 50 steps every hour during wakefulness should be done and over time evolve to more steps per interval. If indicated, physical therapy locally for more muscle strength and to maintain gait/balance. SOCIAL MEDIA Social Media can be a great resource and a way to connect with people who share your diagnosis. However, it is important to be mindful of the content posted. Everyone has a different journey. Be sureyour information comes from a reliable source and do not take medical advice from social media--always contact your clinicians to review relevant information specific to your condition and follow your own medical plan of care. SALT LOADING: The loading of salt can be 3-5 grams per day if it is permitted. Some will do salt tablets which can be purchased over the counter. Take with food since can cause nausea. Encourage patients to add salt to nutrient rich food or consume salty foods. (Avoid default foods such as potato chips that are calorie rich but nutrient poor.) Veggie, Chicken, and Beef Broths are good ways for hydration and salt. Pickles and olives are salty snacks. Salt and water loading the patient may note more bloating and increased BMI. More abdominal and pelvic girth can occur. Watch for any elevated blood pressure readings. LEG SWELLING: Can occur from the blood pooling from the orthostatic issues. The legs may even turn blue, red, and pale. Some may have even livedo reticularis. Treating the orthostatic disorder will help. Compression stockings knee high, thigh high, and even panty hose can help. Pressure grade 20-30 or higher can be tried to see what helps and is comfortable. Wear them for a few hours in the day, while walking, and mild activity. They are not recommended to wear during sleep. Elevate legs up above the heart repeatedly during the day to reduce swelling. If possible, repeatedly do the legs on the wall yoga maneuver. This can be done while lying in bed. SLEEP: Sleep can be a challenge due to aspects of typical chronic health issues of inconsistent sleep schedule, inactivity, medication effects and even mental health aspects of chronic disease (worriment, rumination of the future, uncertainty). Keep the room the ideal temperature for your comfort. Keep technology out of the room such as tablets, cellphones, TV, and laptops as they can maintain wakefulness. If you cannot sleep, get out of bed for 30 minutes or so to read and then go back to bed. Melatonin 3-10 mg to take 2 hours before sleep can help. Review in your next routine medical appointment if this is an option for you. We try to avoid typical sedatives if possible as they can potentiate orthostatic issues. Many orthostatic patients have nocturnal symptoms especially due to lack of body movement and reduced circulation of the blood. POTS patients due to the adrenergic response can have more supine chestpain, racing heart rate, restless sleep, nightmares, sweating, and awakenings. Go to bed and wake up at the same time daily including weekends. Do not nap more than 30 minutes during the day. PAIN: Many patients may have pain from orthostatic issues Inactivity causes joint stiffness. Exercise and gentle range of movement of the joints will often relive stiffness. Headaches and neck pain from hypo perfusion (an orthostatic headache and coat changer fixer syndrome lay down and goes away.) Treating the orthostatic syndrome may help, but some may still have pain. Review with clinician in follow-up. Think about what makes pain better and what makes it worse and describe during appointment. COMPRESSION STOCKINGS AND GARMENTS: They do help, but can be a struggle. Help from your clinician as well as determining personal preference and effectiveness are pepe. Please note, it may be difficult to wear compression gear in the heat and make sure not to wear to bed. Below are a few general guidelines. Compression stockings to the knee 20-30 mm Hg above the knee thigh high 20-30 mm HG Compression stockings to hip level /panty hose help since most of the blood is in the pelvic area Abdominal binder can be helpful Arm compression sleeve Spanx High waisted leggings GI HEALTH: Many?autonomic?patients have associated GI complaints of bloating, reflux, diarrhea, constipation and IBS. If you notice any food that trigger discomfort, be mindful. Maintaining hydration helps orthostatic self-care and GI health also. Some of the purchased electrolyte drinks may cause GI symptoms. Find which one works for you or make your own hydration drink following the WHO recipe found earlier in this document. Supplements of magnesium oxide 400 mg twice or three times per day can help with constipation. Please check with your provider before starting any new supplements. BLADDER?DYSFUNCTION: This can be a common complaint for?autonomic?patients. Due to inactivity many patients will develop some pelvic floor?dysfunction?and thus benefit from pelvic floor exercises throughout the day to strengthen these muscles. Sometimes the symptoms are challenging to decipher objectively and will need a Urology consult to address. Dry Mouth and Dry Eyes: Often the patient may have dry eyes and mouth symptoms. Eye exam by an top cager to evaluate diagnostically for dry eyes and if needed over the counter or prescription treatments. Dry mouth can be common from routine medications. With dry mouth please see your dentist for best plan of oral hygiene and care. MENTAL HEALTH: Most patients with this disease from the impact and struggle of daily life will go through various emotions. We encourage patients and their support person to pursue counseling for skills to live with chronicdisease. In depression and anxiety medications like SSRI s and SNRI s may help with less impact on orthostatic. These medications may be prescribed by medical providers in follow-up visits if indicated. IV FLUIDS: We generally do not support the chronic use of IV fluids for orthostatic patients. documented in this encounterC[facility] History of Present illness Narrative* Judy Gamez PSYD - 10/18/2021 8:01 AM EDT Images from the original note were not included. Due to the federal emergency declaration and the need for ongoing mental health services, the following visit was completed virtually and informed consent obtained orally to reduce the risk of COVID-19 exposure. Oral consent to services related to virtual visits was obtained after information was sent via Return[employer]uler or read to patient if Amanda Huff DBA [employer] not available. GENERAL PSYCHOLOGY Session #: 2 (session count starts after PSYL NEW EVAL visit) Today's visit was conducted by: Return[employer] Video Visit Pt identity verified: Yes Location verified: pt at home in [place] Privacy concerns related to pt's present environment discussed: Yes Telehealth Risk Benefit Analysis A) Consistency of presenting problem with use of telehealth services: Engaging effectively in talk therapy which is appropriate to telehealth. B) Client knowledge and skills to use technology: Continues to have the knowledge and skills to participate in telehealth. SUBJECTIVE: Had thoughts of suicide for 3-4, has been very stressed but cannot identify a trigger, states sometimes she will get like that, longest was 2-3 weeks - suspects could be related to her cycle - states they were not strong enough and she has no plan or intent - tries to ignore them, sometimes would have an intrusive thought, like you should jump but she states she is not thinking about doing that in a conscious way - knows she can pull herself out of the thoughts When she was sick with COVID she was afraid she was going to Daily things will make her feel enraged, also always feels annoyed Notes PTSD symptoms are exacerbated when she is doing things related to her lawsuit because she hasto listen to how nothing she is going through is real PATIENT DATA: Generalized Anxiety Disorder Scale (ROSE MARIE-7) ROSE MARIE - 7 SCORES 09/19/2021 10/13/2021 10/17/2021 ROSE MARIE-7 Score 5 7 7 (0-4) minimal anxiety, (5-9) mild anxiety, (10-14) moderate anxiety, (15-21) severe anxiety Patient Health Questionnaire (PHQ-9) PHQ-9 09/19/2021 10/13/2021 10/17/2021 Score 7 8 7 (0-4) minimal depression, (5-9) mild depression, (10-14) moderate depression, (15-19) moderately severe depression, (20-27) severe depression PROMIS Global Health PROMIS Global Health - (T-Scores - the mean of general population = 50. Five points is a clinicallymeaningful difference.) 04/06/2021 07/13/2021 09/27/2021 Physical T-Score 32.4 32.4 32.4 Mental T-Score 28.4 25.1 21.2 [place]-SUICIDE SEVERITY RATING SCALE Screen Version - Recent Past month Ask questions that are bolded and underlined. YES/NO Ask Questions 1 and 2 1) Have you wished you were or wished you could go to sleep and not wake up? Yes 2) Have you actually had any thoughts of killing yourself? Yes If YES to 2, ask questions 3, 4, 5, and 6. If NO to 2, go directly to question 6. 3) Have you been thinking about how you might do this? E.g. I thought about taking an overdose but I never made a specific plan as to when where or how I would actually do it .and I would never go through with it. No 4) Have you had these thoughts and had some intention of acting on them? As opposed to I have the thoughts but I definitely will not do anything about them. No 5) Have you started to work out or worked out the details of how to kill yourself? Do you intend tocarry out this plan? No 6) Have you ever done anything, started to do anything, or prepared to do anything to end your life? Examples: Collected pills, obtained a gun, gave away valuables, wrote a will or suicide note, took out pills but didn't swallow any, held a gun but changed your mind or it was grabbed from your hand,went to the roof but didn't jump; or actually took pills, tried to shoot yourself, cut yourself, tried to hang yourself, etc. If YES, ask: Was this within the past three months? YES/NO No Low Risk Moderate Risk High Risk PTSD Checklist for DSM-5 (PCL-5) PCL-5 Total Score: 45 (10/18/2021 8:25 AM) PCL-5 PCL-5 Total Score 1. Repeated, disturbing, and unwanted memories of the stressful experience?2. Repeated, disturbing dreams of the stressful experience? 10/18/2021 45 Quite a bit Not at all 04/18/2021 49 Quite a bit Not at all 09/22/2020 32 Quite a bit Not at all 33 = proposed cut-off score for PTSD symptoms warranting further investigation until further psychometric work is available <33 = subthreshold symptoms of PTSD >24 PTSD is a clinical concern, 33-36 probable PTSD, >37 significant PTSD 10/18/21 Max Re-experiencing Avoidance Affect/Cognition Arousal/Reactivity Total 45 /80 OBJECTIVE: Some behavioral observations limited due to visit being conducted virtually Mental Status Exam: General/Sensorium: AO X 4 - Appearance: Appears well groomed and stated age - Demeanor: Appropriately interactive - Motor Activity: Normal - Speech: Appropriate - Mood: Anxious - Affect: Congruent with mood - Thought Process: Linear, logical, and goal-directed - Associations: Normal - Thought Content: Appropriate with no SI/HI/AVH - Perceptions: The patient does not appear internally stimulated - Cognition: Appears intact in regards to memory, attention/concentration, fund of knowledge and language skills - Insight: Good - Judgment: Good - ASSESSMENT: Yolanda Aparicio was actively engaged in the session and demonstrated motivation towards therapy goals. Suicide risk was assessed today and pt does not appear at imminent risk, based on passive ideation with intrusive thoughts and no history of suicide attempt. Pt advised on calling 911, using crisis lines, or going to emergency room if ideation intensifies and she expressed understanding. Will likely benefit from continued psychotherapy to improve mood and anxiety. 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) TREATMENT MODALITIES: Cognitive Behavioral Therapy to cognitive restructuring, DBT PROGRESS TO DATE: Intermediate Progress: Condition at intake Short Term Condition: Regressed - increased SI, but no intention/plan of suicide GOALS/OBJECTIVES/INTERVENTIONS: Validate emotional experience Reassess PTSD sx SHORT-TERM OBJECTIVE/INTERVENTION: Plan for improving SI - pt to stay busy, go walk, watch positive movies, distract herself - If thoughts get worse she will reach out for sooner appointment - Will call 911, go to emergency room, or use a crisis line if in need of immediate help Approximately 60 minutes were spent with the patient doing therapy. Judy Gamez PSYD documented in this encounterC[facility] History of Present illness Narrative* Judy Gamez PSYD - 10/13/2021 12:35 PM EDT Due to the federal emergency declaration and the need for ongoing mental health services, the following visit was completed virtually and informed consent obtained orally to reduce the risk of COVID-19 exposure. Oral consent to services related to virtual visits was obtained after information was sent via Return[employer]uler or read to patient if Amanda Huff DBA [employer] not available. GENERAL PSYCHOLOGY Session #: 1 (session count starts after PSYL NEW EVAL visit) Today's visit was conducted by: [employer] Video Visit Yolanda Aparicio was sent a copy of informed consent including telehealth information via ReturnHauler. We verbally reviewed this information and patient provided verbal consent to participate in telehealth visits. Patient was provided alternate contact information in this document. Patient provided with information regarding access to emergency services using 911 or local emergency room. Today's visit was conducted by: [employer] Video Visit Identity verified: Yes Location verified: Pt at home in [place] Privacy concerns related to pt's present environment discussed: pt has privacy Telehealth Risk Benefit Analysis A) Consistency of presenting problem with use of telehealth services: Pt presenting with symptoms of PTSD which appear amenable to telehealth. B) Client knowledge and skills to use technology: She appeared to have the knowledge and skills to participate in telehealth. 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, but this is stressful because she is not sure she is ready to go back to school, however, needs to support herself on student loans SMAs can be triggering for her CBT helped improve her sleeping but she noticed it is starting to be worse again COVID onset in January 2020, diagnosed with POTS in October 2020 Denies recent suicidal ideation PATIENT DATA: Generalized Anxiety Disorder Scale (ROSE MARIE-7) ROSE MARIE - 7 SCORES 08/26/2021 09/19/2021 10/13/2021 ROSE MARIE-7 Score 9 5 7 (0-4) minimal anxiety, (5-9) mild anxiety, (10-14) moderate anxiety, (15-21) severe anxiety Patient Health Questionnaire (PHQ-9) PHQ-9 08/26/2021 09/19/2021 10/13/2021 Score 9 7 8 (0-4) minimal depression, (5-9) mild depression, (10-14) moderate depression, (15-19) moderately severe depression, (20-27) severe depression PROMIS Global Health PROMIS Global Health - (T-Scores - the mean of general population = 50. Five points is a clinicallymeaningful difference.) 04/06/2021 07/13/2021 09/27/2021 Physical T-Score 32.4 32.4 32.4 Mental T-Score 28.4 25.1 21.2 PCL-5 Total Score: 49 (04/18/2021 8:23 AM) 33 = proposed cut-off score for PTSD symptoms warranting further investigation until further psychometric work is available <33 = subthreshold symptoms of PTSD >24 PTSD is a clinical concern, 33-36 probable PTSD, >37 significant PTSD OBJECTIVE: Some behavioral observations limited due to visit being conducted virtually Mental Status Exam: General/Sensorium: AO X 4 - Appearance: Appears well groomed and stated age - Demeanor: Appropriately interactive - Motor Activity: Normal - Speech: Appropriate - Mood: Anxious - Affect: Congruent with mood - Thought Process: Linear, logical, and goal-directed - Associations: Normal - Thought Content: Appropriate with no SI/HI/AVH - Perceptions: The patient does not appear internally stimulated - Cognition: Appears intact in regards to memory, attention/concentration, fund of knowledge and language skills - Insight: Good - Judgment: Good - ASSESSMENT: Yolanda Aparicio was actively engaged in the session and demonstrated motivation towards therapy goals. PTSD was not reassessed today, however, will reassess at follow-up. Will likely benefit from continued psychotherapy to support emotional regulation and process traumatic stressors. DIAGNOSIS: (F43.10) PTSD (post-traumatic stress disorder) Plan: CONSULT TO PSYCHOLOGY (F41.1) Generalized anxiety disorder Plan: CONSULT TO PSYCHOLOGY (F43.21) Adjustment disorder with depressed mood Plan: CONSULT TO PSYCHOLOGY TREATMENT MODALITIES: Cognitive Behavioral Therapy to cognitive restructuring, DBT PROGRESS TO DATE: Intermediate Progress: Condition at intake - with present provider Short Term Condition: Condition at intake GOALS/OBJECTIVES/INTERVENTIONS: Goals: - be more at peace - reduce irritability - increase tolerance for anxiety triggers - learn how to balance things Approximately 60 minutes were spent with the patient doing therapy. Judy Gamez PSYD documented in this encounterC[facility]08-31-2022 Miscellaneous Notes* Telephone Encounter - Esther Henson Pss - 10/12/2021 4:19 PM EDT Forwarded to Dr. Sandoval via [employer]. 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 Patient states my roof service technician will be sending a new [employer]-14 out if you could please complete for long COVID/POTS as we need new ones and from as many docs as we can get. Ciara DangeloNeil Adm documented in this encounterCincinnati [facility]08-29-2022 Miscellaneous Notes* Telephone Encounter - Celeste Greene RN - 10/10/2021 1:17 PM EDT Did not assess physical abilities to do these items. Did not diagnose POTS. Do not follow for POTS.Have treating physicians fill out paperwork. Celeste Greene RN * Telephone Encounter - Diamond Kitchen - 10/04/2021 7:16 AM EDT Form has been received and placed in OPD folder to be completed Diamond Kitchen October 04, 2021 7:16 AM documented in this encounterCincinnati [facility]08-22-2022 Miscellaneous Notes* Telephone Encounter - Andres Herrera MA - 10/03/2021 4:05 PM EDT Received fax regarding temporary disability placed paperwork on Dr. Hernandez maradiaga. documented in this encounterCincinnati [facility]08-14-2022 Instructions* Patient Instructions* Queta Ward PSYD - 09/25/2021 7:00 PM EDT Call [phone] to schedule virtual follow-up. documented in this encounterCincinnati [facility]08-10-2022 Miscellaneous Notes* Telephone Encounter - Esther Henson Pss - 09/21/2021 1:59 PM EDT Letter dated 09/15/2021 e-mailed to patient at [email or web address]. * Telephone Encounter - Esther Henson Pss - 09/20/2021 4:02 PM EDT Patient calling regarding this message. She wants me to send this to you trip. * Telephone Encounter - Esther Henson Pss - 09/08/2021 3:04 PM EDT I scanned patient medical records in. You could respond to her in this chain if you would like, . * Telephone Encounter - Esther Henson Pss - 08/09/2021 12:25 PM EDT PT script faxed to David Roche at [phone]. * Telephone Encounter - Jimenez Sandoval MD - 08/09/2021 12:19 PM EDT Updated PT script to be faxed Jimenez * Telephone Encounter - Esther Henson Pss - 08/09/2021 10:[address] Sandoval, can we add a new PT order for patient to see David Obriencamila? * Telephone Encounter - Oksana Cadena - 07/27/2021 1:24 PM EDT Images from the original note were not included. Jimenez Sandoval MD You 4 hours ago (8:48 AM) Yes. Thank you Jimenez Message text You Jimenez Sandoval MD 4 hours ago (8:44 AM) ME Would you like her to follow up? Routing comment * Telephone Encounter - Esther Henson Pss - 07/22/2021 10:02 AM EDT Patient last seen 04/25/2021. documented in this encounterCinc[facility]08-09-2022 Miscellaneous Notes* Telephone Encounter - Haleigh Parks RN - 09/20/2021 11:42 AM EDT Last OV: 06/01/2021 Last Refill: 06/27/2021 F/U OV: 11/02/2021 Appropriate for refill. Routed to [place] for review. Haleigh Parks RN, BSN, BA documented in this encounterCincinnati [facility]08-08-2022 History of Present illness Narrative* Queta Ward PSYD - 09/19/2021 3:00 PM EDT [facility] Psychology Follow-Up Jody Aparicio [phone] Time spent in session: 60 minutes Parties Present: Patient Diagnoses: PRIMARY: PTSD Other: Generalized Anxiety Disorder Adjustment Disorder w/ depressed mood POTS Post-acute 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) Due to the federal emergency declaration and the need for ongoing mental health services, the following visit was completed virtually and informed consent was obtained orally to reduce the risk of Covid-19 exposure. Oral consent to services related to virtual visits was obtained after information was sent via [employer] during this patient initial evaluation with the provider. Discussed privacy riskfor virtual sessions. Patient location during the visit: home Session #: 7 TREATMENT MODALITIES: Behavioral strategies CBT Mindfulness approach / relaxation skill building Active processing SUBJECTIVE: Comorbid Medical Dx: Facial Paresthesia, intractable tension headaches, GERD, Cerebrovascular Disease; Hx of COVID-19 (01/2020) w/ post-acute sequelae Most significant sx currently: vertigo, brain fog, fatigue, tachycardia, chest pain, SOB, dizziness, nausea (uses Zofran), headaches, body aches Updates per chart review: - 08/29 Dr. Sandoval f/u: PLAN - continue neck PT with David Roche - continue metoprolol (per Jaskaran Guzman, WANDER in autonomic clinic) - consider d/c gabapentin (fatigue, lack of benefit?) - f/u PRN - 09/07 sleep clinic: Patient has done very well with CBT-Insomnia program and sleep testing did not reveal any significant sleep disorders. Unfortunately, we still do not have a clear answer for herongoing fatigue symptoms. I reassured her that symptoms are not related to a sleep disorder but do not have answers for why she is still struggling with fatigue. TODAY'S INTERVENTIONS: Pt reported recent difficulty obtaining school accommodations and continuing to manage legal hearings; provided related support. Pt feeling overwhelmed; considered how to compartmentalize stress. Processed recent experiences re: social judgment and invalidation, overstimulation, fatigue. Incorporated CBT for anxiety and reducing external focus. Consideration of energy allocation, not allowinganxiety to utilize all of one's energy. Perspective of having compassion for one's body vs frustration/anger. Sx associated w/ cardiac rehab - activity intolerance, chest pain, SOB, fatigue. Impact of additional residual inflammatory response from COVID intersection w/ POTS sx. Not going to restorationism has been negatively impactful for pt; problem-solved how to improve spiritual engagement. Pt not yet willing to attend restorationism d/t anxiety and current COVID risk. Considered livestreams, reading scripture; view as positive coping and self-care. ASSESSMENT: PHQ-9 Score: 7 (09/19/2021 8:35 AM) (0-4) minimal depression, (5-9) mild depression, (10-14) moderate depression, (15-19) moderately severe depression, (20-27) severe depression ROSE MARIE-7 Total Score: 5 (09/19/2021 8:35 AM) (0-4) minimal anxiety, (5-9) mild anxiety, (10-14) moderate anxiety, (15-21) severe anxiety MENTAL STATUS: Ms. Aparicio was seen virtually; well-groomed, cooperative. Mood was mildly depressed/anxious w/ affect that was mood congruent. Speech was normal in rate, volume and articulation and clear, coherent,and relevant. Thoughts were logical and relevant without delusional thinking or hallucinations. Somatic preoccupation was mild. Denied SI. Judgment and insight were good. Attention span and concentration appeared normal. She was oriented to time, place and person. Memory appeared good. MEDICATIONS: Per medical record: Current Outpatient Medications Medication Sig metoprolol tartrate, short acting, (LOPRESSOR) 25 mg tablet Take 1 tablet by mouth once daily in morning and 1/2 tablet by mouth daily in evening sodium chloride 1 gram tab TAKE 1 TABLET BY MOUTH 3 TIMES A DAY *TAKE WITH FOOD* hydrOXYzine HCl (ATARAX) 10 mg tablet Take 1 tablet by mouth three times daily as needed. gabapentin (NEURONTIN) 300 mg capsule 1 capsule 2x/day gabapentin (NEURONTIN) 100 mg capsule Take 2 capsules by mouth twice daily. (taken with 300mg capsule) tiZANidine (ZANAFLEX) 4 mg tablet Take 1 tablet by mouth daily at bedtime. ondansetron orally disintegrating (ZOFRAN ODT) 4 mg disintegrating tablet Take 4 mg by mouth once daily as needed. ibuprofen (MOTRIN) 200 mg tablet Take 200 mg by mouth as needed. acetaminophen (TYLENOL) 500 mg tablet Take 500 mg by mouth as needed. Current Facility-Administered Medications Medication Dose Route Frequency perflutren lipid microspheres 1.3 mL in NaCl (PF) 0.9% 10 mL injection (DEFINITY) INTRAVENOUS DIRECTED PRN sodium chloride 0.9 % (flush) 10 mL (BD POSIFLUSH) 10 mL INTRAVENOUS DIRECTED PRN PROGRESS TO DATE/ASSESSMENT: Impression per update (04/18/21): Ms. Aparicio is a 25 year old, single, White female who was referred by Jaskaran Guzman CNP. She presents with POTS and PASC. She meets criteria for PTSD, ROSE MARIE and Adjustment Disorder w/ depressed mood (depression has developed within context of chronic medical conditions and subsequent functional impact). Current sx significantly interfere with her functioning and quality of life. The relationship between her physical and emotional sx is likely bidirectional in nature, in that her medical conditions and mood reflect a hyperactive [employer]. 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 Ms. Aparicio lacks support and feels significantly isolated, which is contributing to her presentation. Will incorporate behavioral activation and CBT to address depression, as well as CBT for health anxiety. Will include POTS education and related management strategies. Will pursue trauma processing to reduce PTSD sx (and related [employer] hyperarousal), which will likely improve her interactions w/ medical providers. Her laureano and motivation/independence are positive values that will be incorporated into tx. Duration of tx is expected bandar moderate, depending on progress towards goals. PLAN: Homework: compassion and self-care perspective towards the body Next: CBT for health anxiety Follow Up: virtual Nov Queta Ward PsyD Clinical Psychologist [facility] of Present illness Narrative* Alvin Huddleston, - 09/13/2021 4:33 PM EDT Yolanda Aparicio is a 26 year old female. SHARED MEDICAL APPOINTMENTS: Patient is at home I spent a total of 60 minutes on the date of the service which included [id number] patient care, completing clinical documentation, communicating results to the patient/family/caregiver, and care coordination (not separately reported). Thank you so much for joining us on Sunday for the [facility]. Learn about POTS and your diagnosis. Share with your loved ones and support people in your lives Watch repeatedly. [email or web address].[email or web address] CAN COPY AND PASTE THIS LINK INTO A SEARCH BAR OR CAN SEARCH YOUTUBE: FLAQUITO ORTHOSTATIC EXERCISE : VIDEO: WHAT IS POSTURAL ORTHOSTATIC TACHYCARDIA SYNDROME (POTS)? There are many videos to use for self care, education, and helps to do better Based on the volume, frequency, messages in format of texting/or snapchat types/ and repeated mychart messages we receive from patients in a month we can no long address issues of questions, medication changes,disease management in my chart forum effectively for patient care. If there is an urgent issue seek urgent care or medical level ER care. If needed review or see your PCP For POTS patients recommend to use the POTS manual, flaquito orthostatic exercise video on youtube for educational, utilize your chronic self care tools, attend more share medical appointments are recommended POTS Manual: Read the POTS manual online. This will help you understand your POTS diagnosis, work with your medical team, and includes detailed instructions and tips for improved daily living with POTS. [email or web address] Reminder that with health conditions that most medications and other care treatments including rehabilitation /exercise programs need 3-4 months to work . With chronic health conditions may need evenlonger to work if one has been ill and suffered. TIP: We are recommending also for patients in this time of ramped up use of social media to be mindful to check content for accuracy. Also when one post especially think about before posting since can be forever and can have lasting impact on others with hurtful, shaming, hazing, and harm. Often social media posts can be traced back to sender easily in time stamped and content. GUT 1. The gut is the second brain 2. Most of serotonin that helps mood, stamina, and pain is in gut. Gut does not work will feels worse in these aspects 3. Adrenaline stops the ability to rest and digest and thus more pain, bloating, IBS, and less goodnutrients. More skin isues (acne, eczema, rosacea, dry skin, hair loss,dry hair), leaky gut, normalbacteria leaves, and more digestion challenges /food intolerance 4. Swallow issues /gag/ voice changes since is vagal and adrenaline will make this vagal not work .Gargling, singing, brushing tongue exercises help correct. If can gargle with salt water helps also 5. Most of immune system is in the gut and can lead to much food challenges. Even can be challenge to know what is mast cell and not. Often getting gut right with probiotics, control of POTS, and diet changes to help gut healing helps reduce issue of the gut being inflamed and what may be or could be mast cell . 6. Sugar is very irritating to the gut can cause laxative effect. Also ties into why we may see that dairy, wheat, white food, gluten free is better, and less refined foods are better for pots. The sugar and the altered gut state can lead to poor absorption that lead to sugar spikes, reactive hypoglycemia, and sugar dumps. Adrenaline also leads to insulin use and sugar changes of up and then drop. Sugar spikes and drop leads to fatigue, anxiety, depressive feeling, headache, skin changes, weight up and down, and more. Why being sugar reduced is pepe and helps in POTS. FODMAP diet. Hydration drinks with less sugar and also avoid artificial sweeteners (the artificial sweeteners causes confusion to the body and spike insulin still sense there is sugar). Diets best with small meals, hydration , water, proteins, good fats (ghee butter, olive oils,) veggies, and complex carbs through the day. Have to eat and train the gut as a muscle thus small meals in the day. 7. Diet including polyphenol rich foods (colorful natural ), quercetin foods, and add tumeric help anti oxidants Supplements for helping neural excitable and mitochondrial healing Add each one every few weeks /take in am with good food Co Enzyme Q10 100 mg daily for 4 weeks then go 200 mg daily Alpha lipoic acid 600 mg daily NAD /nicotinamide adenine dinucleotide (NAD) 10 mg daily MAG stearate or glycinate 400 mg daily B12 1000 ucg daily Gut health : Less sugar to no white sugar [place] oils 1 gram daily Probiotics any type and add prebiotic foods Avoid processed foods, too much simple carbs, and too much dairy Any type of brand is good and can over time customize more as you want and learn, but start somewhere Again like any supplement can start small doses if want to adjust More tips: Hydrate with just water about 64 ounces in the day Eliminate sugar as much as can including natura types from the diet Eliminate simple sugars (refined carbs ) and reduce dairy. Small and frequent meals with proteins, complex carbs, veggies, and if use fats good oils (olive oil, avocado, walnut) . Less to no fried food Work on sleep schedule: Go to be same time and up same time with elimination of naps. Initially will be hard. Will have to get up the set time even do not rest well till the schedule sets into of this pattern of sleep pattern formation of the body be settled and wired in. Take small steps with diet and know there will be set backs along the way If have not done our exercise for POTS in the exercise SMA then join us by my chart. If can do any simple exercise 10-15 minutes per day can use our flaquito orthostatic exercise utilizing the sandro chi,qi qong, and chair exercise. Do not have expensive brands or certain brands of supplements or foods Be patient. You have been ill for a long time. It can take 6 months for full benefit to see improvement of brain fog, gut health, stamina, and if has mast cell issues We always start with a discussion of POTS physiology. When you stand two water bottles of blood drop. To compensate, the body speeds up the heart in an effort to get blood to your brain so you don t faint. This is adrenaline and while it may feel terrible it is an autonomic protective mechanism. The brain controls the Autonomic Nervous System. The Sympathetic Nervous System is responsible for stress and survival and is why you feel the symptoms of adrenaline which include but are not limitedto: racing heart rate, chest pain, sweating, neck pain, fainting, near fainting, nausea diarrhea, bloating, frequent urination, skin tingling, ears ringing, heightened senses, inability to sleep, cannot think, brain fog, jerking limbs, muscle tightness and the list goes on... The Parasympathetic Nervous System is responsible for growth and repair, rest and digest. Some of you may notice a drop inheart rate after a sympathetic surge. The polyvagal symptoms may take over: the heart rate and blood pressure drop, you may feel cold, feel the sensation of rubber legs, defecate, urinate etc. This explains the cycle of Fight, Flight, and Freeze. Once your body gives way to adrenaline, you may become listless and exhausted feeling the rag doll effect. GI issues remain one of the constant and most common complaints of those with orthostatic issues. Many suffer with bloating, pain, constipation, and diarrhea. Adrenaline is a huge factor and has an impact on digestion. One cannot rest and digest if in adrenaline mode as the body is in survival modefocused on other organs and self-preservation. A body in survival does not digest efficiently. The stomach is the second brain. After the brain, most nerve bundles and neurons are located in thegut and can work independent of the brain. Diseases may show in the gut as the first path of violation before presenting as a nervous system disorder. We all know the feeling of butterflies or stomach discomfort. Stomach discomfort can also present in times of acute or chronic stress. The brain gut connection is so strong we may feel nausea, may vomit, and may be unable to eat. 70% of the immune system is located in the gut. The entire GI system is filled with good and bad bacteria. Healthy and unhealthy bacteria. The gut being the second brain and is a good indicator of how well someone is feeling. If GI health is poor,the patient generally feels overall unwell. Adrenaline creates a hostile zone in the gut: bloating, IBS, pain, low serotonin can affect ones mood and cause sadness, pain, malaise depression, fatigue. Allergies food intolerance, mast cell are aresult of immune dysfunction. Leaky gut gets rid of good bacteria and when ones digestion is off they can experience hair loss, weight changes (up or down) acne, dry skin, dry mouth, eczema, and rosacea. 20% of POTS patients have delayed motility and 20% having rapid motility. Eat the best, leave the rest: Small meals, simple proteins Chicken/fish, Hydrate with water, avoid artificial chemicals and sweeteners, Probiotics for balancing and gut healing, supplement with oregano, dameon, and turmeric can also help. These changes take time to see a result. Starting with small doses are always best practice to see how one does when adding a new supplement. Sugar is public enemy number one: It is in a lot of food so check nutrition labels. There are limited amounts in natural foods. Sugaris a gut irritant/ laxative. Known irritants are dairy, wheat, gluten, refined carbs, and white foods. Sugar gives a jolt of energy and then drops it. Sugar can increase fatigue, mood, anxiety, panic attacks, depression, migraines, IBS. Sugar spikes insulin then drops it Adrenaline spikes insulin the drops glucose Gut disorders cause inconsistent glucose absorption The three above compete so it s best to reduce sugar intake found in natural foods such as veggies,complex carbs (brown rice for example) proteins, and good oils. Mast Cell and Food Allergen start with correcting the gut and see if there is an improvement. We touched on swallowing issues. Swallowing us a vagal response. Some people may be unable to swallow pills, the feel like they are being strangled, lost voice, raspy, dryness, GERD, reflux. Too muchadrenaline. Gargling, salt rinse, tongue brushing, singing and chanting can also help. Treating POTS is essential as things in the body will start to balance. Hydrate with 64 ounces of water per day. Keep it low sugar and try to avoid artificial colors and artificial sweeteners. Moving the body helps the gut and is essential in POTS care. 5-15 minutes per day of wellness can show your brain and body that it can be an adrenaline free zone. Additional supplements to consider: Magnesium Stearate or Glycinate Oregano Pills [place] Oils Prebiotics and Probiotics COQ10 MG Daily Thank you for joining us and we look forward to seeing you in a future SMA. Sincerely, Dr. Huddleston and Kelli Beal Let us start with discussing POTS physiology. When you stand two water bottles of blood drop. To compensate, the body speeds up the heart in an effort to get blood to your brain so you don't faint. This is adrenaline and while it may feel terrible it is an autonomic protective mechanism. The brain controls the Autonomic Nervous System. The Sympathetic Nervous System is responsible for stress and survival. The Parasympathetic Nervous System is responsible for growth and repair. Finding the balance between the Sympathetic and Parasympathetic for those of us living with POTS presents a challenge. The Sympathetic cardiac nerves increase and force of contraction, whereas the Vagus nerve (parasympathetic) decreases heart rate. The Baroreceptor sends signals to the brain. The brain is like a smartphone and creates memories from the experiences as is the case with adrenaline. The brain is tied into speeding up the heartrate and adrenaline. You may notice adrenaline surges coming at around the same time each day. That is the memory-make adrenaline and then do it again and again on a loop. A pattern of symptoms form such as pain, racing heart rate, headaches, and tingling. After this heightened form of adrenaline takes place, the polyvagal symptoms may take over: the heart rate and blood pressure drop, you may feel cold, feel the sensation of rubber legs, defecate, urinate etc. This explains the cycle of Fight, Flight, and Freeze. Once your body gives way to adrenaline, you may become listless and exhausted feeling the rag doll effect. This can last for hour to days. An effective way to lower heart rate is called the COLD EFFECT DIVE REFLEX: If you hold your breathand put your face in cold water, your heart will immediately slow down by 25%. Using a cold washcloth in a plastic sandwich bag can also help lower heart rate. Tongue on roof of soft palate slows heart rate: To perform, curl tongue back to touch the soft palate in the mouth. Your mouth may remain open a tad, make an R sound. Doing this numerous times in a day will reduce adrenaline symptoms such as lowering HR, decreased sweating, and decrease brain fog as well as jitteriness. Another effectiveexercise is performing the Valsalva maneuver to prevent palpitations. To do this 1. Pinch your nose, 2. Close your mouth, 3. Then try to breathe out. To explain at a more scientific and evolutionary level would be to talk about the Mammalian Diving Reflex: A Marine mammals' physiological response when stimulated by cold water submersion is the shunting blood from their peripheral tissues to their body's core. The increased blood volume in the core then stimulates a vagal response which produces profound bradycardia. This shunting of blood fromnon-essential organs and the lowered oxygen demand allows the diving mammal to remain underwater for a prolonged period. We also discussed nose breathing as it is much more effective than mouth breathing when it comes tocalming heart rate. Three breaths in, hold for 8, three breaths out. Over time with proper care, the heart rate is controlled by exercise and medication, but remember it is possible to still feel POTS symptoms with normal vitals. The idea is through wellness modalities to create new memories and files. By realizing this is occurring, being patient with oneself and mi ndfulness, relaxation, and decluttering rework the circuits for more positive experiences The brain does get involved with POTS. The baroreceptor does have localization sites into the brainstem. This is why we can see in head injury cause POTS. Also the brain getting activate in adrenergic state of flight or fight or freeze can cause more than just typical body or heart rate symptoms, but also the brain symptoms of jittery, cannot think, confused at times, restless, headaches, dizzy, jerky limbs, tight muscles, pain, ,less hope, and less creative. The brain as we said is in downstairs mode of the lower center operating and more of the amygdala . This can become more automatic and the default response. The brain is a circuit and remembers this is what it is to do. Recognizing this as occurring is pepe and next steps is to show your brain is okay to learn new ways of circuits is pepe. New ways are via wellness, exercise, medication at times, and even health psychology. We have health psychology here to show nervous system new ways to be again, relaxation tools. Biofeedback, and tips for living with a disease. We can offer this health psychology by sending a [employer] message to us . POTS CHAT BRAIN MEMORIES--December Thank you so much for joining us on Sunday for the [facility]. Let us start with discussing POTS physiology. When you stand two water bottles of blood drop. To compensate, the body speeds up the heart in an effort to get blood to your brain so you don t faint. This is adrenaline and while it may feel terrible it is an autonomic protective mechanism. While manypeople think most POTS patients faint, in reality only about 15% of those with POTS do. POTS symptoms include Tachycardia, lightheadness, brain fog, body pain, GI issues, numbness and tingling limbs,and these are just to name a few we all know the symptoms can run the gamut. Dizziness is also a chief complaint and can be described in a multitude of ways. Some of us feel like we re rocking on a boat, many have trouble driving, and functioning through the day is also a major challenge when one has vestibular issues. We always start with a discussion of POTS physiology. When you stand two water bottles of blood drop. To compensate, the body speeds up the heart in an effort to get blood to your brain so you don t faint. This is adrenaline and while it may feel terrible it is an autonomic protective mechanism. The brain controls the Autonomic Nervous System. The Sympathetic Nervous System is responsible for stress and survival and is why you feel the symptoms of adrenaline which include but are not limitedto: racing heart rate, chest pain, sweating, neck pain, fainting, near fainting, nausea diarrhea, bloating, frequent urination, skin tingling, ears ringing, heightened senses, inability to sleep, cannot think, brain fog, jerking limbs, muscle tightness and the list goes on... The Parasympathetic Nervous System is responsible for growth and repair, rest and digest. Some of you may notice a drop inheart rate after a sympathetic surge. The polyvagal symptoms may take over: the heart rate and blood pressure drop, you may feel cold, feel the sensation of rubber legs, defecate, urinate etc. This explains the cycle of Fight, Flight, and Freeze. Once your body gives way to adrenaline, you may become listless and exhausted feeling the rag doll effect. Thank you again. Your attendance of the Shared Medical Appointment and involvement in the POTS community is pepe to your success and those who come behind you. Please look at POTS body movement techniques at [employer] orthostatic exercises - [employer], and please follow our Instagram page [email or web address]. Please take advantage of all of these tools available to you. We are committed to your journey toward restored wellness. We look forward to seeing you again in future SMA s. To schedule the ZOOM POTS SMA please call during Sunday-Sunday 9 am - 4 pm , Please be patient with the phone line as we are in midst of reopening during the pandemic phase We are honored and glad to have you part of the SMA for POTS Welcome to ZOOM POTS SMA (SHARED MEDICAL APPOINTMENTS) We have learned at the [facility] and especially in my work and our department that POTS thatthere is so much to learn to live well with this condition. So much of the emphasis needs to be on life tips of education, body awareness, community, exercise , daily life tips, and the psychology of living well with POTS. 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 We have even published the benefit of the SMA for POTS. We used to do the SMA in person, but during the pandemic we are starting to do them via ZOOM. For years I have been wanting to do the SMA as a virtual format like ZOOM. The ZOOM SMA is a safe space to be supported. We do request to allow your face to be seen and courtesy language. The session is about 90 minutes long. We will have a topic, questions, and answers. The sessions are not recorded. POTS Manual: Read the POTS manual online. This will help you understand your POTS diagnosis, work with your medical team, and includes detailed instructions and tips for improved daily living with POTS. [email or web address] YouTube: [email or web address] orthostatic exercise Instagram: POTS FLAQUITO Orthostatic Your body has a network of blood vessels made up of arteries, veins, and capillaries. The heart pumps blood into the arteries, which carry the blood throughout the body. Blood pressure is the pressure or force of blood pushing against the schuster of the arteries. Blood pressure is written as two numbers; for example, 120 over 80 millimeters of mercury. The first number is the systolic pressure. This is the pressure in the arteries when the heart beats and fills them with blood. The second number is the diastolic pressure. This is the pressure in the arteries when the heart rests between beats. Orthostatic hypotension is a condition in which your blood pressure falls significantly when you stand up quickly. (Hypotension is low blood pressure.) What are the symptoms of orthostatic The main symptom of may even faint. Other symptoms include: Blurred vision Nausea Disorientation or confusion Feeling weak Fatigue Falling Chest pain Neck pain Cognitive disorder Challenge in breathing Base of neck pain and head pressure Breathing challenge when standing up Legs become weak/ walking challenge/rubbery legs Rebound or surge in blood pressure spikes especially when laying down These symptoms usually clear up when you sit or lie down for a few minutes. THIS NOTE IS FOR AT FIRST FOR MY DOCUMENTATION TO PROVIDE CARE, HELP INSURANCE COMPANY AND COLLEAGUES TO HAVE NEUROLOGICAL CONTEXT OF MY , AND FOR MY PERSONAL RECORDING TO FACILITATE FUTURE CARE BY HAVING A WRITTEN DOCUMENT MEMORY OF OUR CONSULT TOGETHER . THANK YOU FOR UNDERSTANDING THIS OFFICE NOTE IS A PHYSICIAN BASED DOCUMENT FOR COMMUNICATION AND CARE. ACTIVE PROBLEM LIST Covid-19 Personal History of Covid-19 Intractable Tension-Type Headache Cerebrovascular Disease Facial Paresthesia Pots (Postural Orthostatic Tachycardia Syndrome) Long Covid Cognitive Communication Deficit Current Outpatient Medications on File Prior to Visit Medication Sig metoprolol tartrate, short acting, (LOPRESSOR) 25 mg tablet Take 1 tablet by mouth once daily in morning and 1/2 tablet by mouth daily in evening sodium chloride 1 gram tab TAKE 1 TABLET BY MOUTH 3 TIMES A DAY *TAKE WITH FOOD* hydrOXYzine HCl (ATARAX) 10 mg tablet Take 1 tablet by mouth three times daily as needed. gabapentin (NEURONTIN) 300 mg capsule 1 capsule 2x/day gabapentin (NEURONTIN) 100 mg capsule Take 2 capsules by mouth twice daily. (taken with 300mg capsule) tiZANidine (ZANAFLEX) 4 mg tablet Take 1 tablet by mouth daily at bedtime. ondansetron orally disintegrating (ZOFRAN ODT) 4 mg disintegrating tablet Take 4 mg by mouth once daily as needed. ibuprofen (MOTRIN) 200 mg tablet Take 200 mg by mouth as needed. acetaminophen (TYLENOL) 500 mg tablet Take 500 mg by mouth as needed. Current Facility-Administered Medications on File Prior to Visit Medication perflutren lipid microspheres 1.3 mL in NaCl (PF) 0.9% 10 mL injection (DEFINITY) sodium chloride 0.9 % (flush) 10 mL (BD POSIFLUSH) FAMILY HISTORY Problem Relation Age of Onset Hypertension Father Hyperlipidemia Father Hyperlipidemia Maternal Grandmother other (afib) Maternal Grandmother Heart Attack Paternal Grandmother PAST SURGICAL HISTORY Procedure Laterality Date NONE 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 Drink 64 ounces of water throughout the day. If need more salt in water some may add a pinch of water to the water or even Himalayan salt if can tolerate the taste. 2. Electrolyte beverages be mindful of sugar content, dyes, and artificial sugars since can cause bloating, diarrhea, brain fog, headaches, and allergies. Low sugar to no sugar and dyes drinks with of course no caffeine is a goal. 3. Salt loading if causes bloating just do in diet with foods. 4. Diet: people notice sugar, dairy, and gluten/ wheat bother so a diet with less to reduce of the sugar, dairy, to processed carbs help best. With diet proteins (chicken, fish )and good fats (olive oil , avocado oil ) with complex carbs are ideal (veggies, berries, quinoa, brown rice) 5. Sleep : bed same time and up same time; Avoid naps. Eventually though rough will get on this schedule even though feels a challenge 6. Wellness: find something in the day to keep mind body spirit going that helps keep the mind and show the mind that is not in always aware of adrenaline state (journaling, knitting, puzzles, prayer, meditation, breathing, etc . Show the mind and body it can be free of adrenaline fight or flight state 7. Move the body to keep the blood flowing and muscle strong. Can start even with flaquito orthostatic chair exercise or sandro chi /qi qong 8. Probiotics help gut health since most have IBS issues (any brand to get started is a good start) Breathing work: Inspiration heart rate increases with (sympathetic response) based on blood going to lungs and need compensate to get blood shuffle and with expiration heart rate slows down (parasympathetic) . Exercise of amplifying of parasympathetic is to breath response. Take slow breathe inspiration over 3 seconds and then breathes over 5 seconds out with expiration (do exercise via nostril breathing) Alvin Huddleston D.O ELECTRONICALLY SIGNED September 13, 2021 Adult Neurology/ Board Certified Director of Autonomic Center Department of Neuro Muscular of the Neurological Stickney Candy Attendant for Neurology Clerkships Clinical Baby Counselor of Neurology Physician Advisor for the [facility] of Neurology Speech Correction Assistant of Mistreatment and Neglect [facility] School Faculty Appointment [facility] Medicine Faculty Appointment [facility]ica Professor [facility] [employer] [facility] of [facility] / TAX ID: [id number] [address]/ [id number] [place] [address] / consult requested for an opinion regarding the evaluation and treatment of POTS My final impression and recommendations will be communicated back to the requesting physician by way of the shared medical record or letter via US [id number]/ Welcome There are videos /playlist/podcast to viewed and helped for exercises and wellness for POTS and Orthostatics Instructions: . HELP WITH MEDICAL PROVIDERS IN LOCAL CARE NOT PART OF THE [facility] To help be successful in care locally with the limits of virtual, my chart , phone calls, and limited in person appointments. This tips sheet helps patients and medical providers. This tips are for guidance and general themes. We do not want them to be customized into individualmy chart message questioning and repeated messages Dear Colleague, This is a tip sheet collaboration to help along in our shared work with the orthostatic to give context and approaches we do with orthostatic patients in our care in the Autonomic Department and you can also bridge into your practice. Thank you for the collaborative work Doctor Guidance for Autonomic Dysfunction SIMPLE FYI ON ORTHOSTATIC MEDICATIONS 1. Florinef: Dosing 0.1 mg at once or twice per day. May need to watch for hypokalemia 2. Midodrine: 2.5 mg daily to 20 mg tid. Have to watch for rebound HTN. 3. Pyridostigmine (60 -240 mg) has helped autonomic symptoms via cholinergic stimulations without raising the BP. 4. POTS patients to control adrenergic symptoms may need beta blockers, calcium channel blockers, and ivabradine. MEDICATIONS OF ORTHOSTATICS, REVIEW OF MEDICATIONS AND SUPPLEMENTS AND BP CHECKS 1. If your clinical discretion is prompted you can hold the medication for the day or longer, but remind the patient and the support person to be careful worsening of syncope and falls. 2. Can if resuming medications can go back and / to / dose 3. SBP > 170 or DBP > 95 over consistent readings is a concern 4. For BP readings we do recommend the patient or support person to check the BP and pulse about three times sitting in the am before coming to the appointment 5. REVIEW ALL MEDICATIONS AND SUPPLEMENTS IN EACH VIIST THAT CAN BE CONTRIBUTORY TO ORTHOSTATICS. SUCH MEDICATIONS ARE ANTI HYPERTENSIVES, ANTI CHOLINERGICS, ANTI PSYCHOTICS, AND MANY BLADDER TREATING MEDICATIONS. SOME POTS PATIENTS WILL NEED BETA BLOCKERS AND CALCIUM CHANNEL BLOCKERS TO CONTROL THE ADRENERGIC VITALS AND SYMPTOMS. ROUTINE LABS: We recommend to use your general medical discretion as any patient to check labs. 1. On Florinef to check potassium 2. Some of the POTS patients are more prone to hypokalemia and may be worthwhile and no interval oftime needed to check potassium. 3. B12 is associated with orthostatic disorder 4. If SICCA is a concern an BENNIE, anti tipton, and anti rho may be helpful 5. If Mast Cell Disease comes up to check an tryptase (concern is > 20 and will need referral toAllergy/Immunology) 6. Thyroid Function Test 7. CBC and CMP annually with any medications of concern EXERCISE: AND REHAB CARE Exercise does help orthostatic patients greatly. Though it seems to be miserable and not feasible for this condition, it does help control symptoms and often improve them. 1. POTS patients bene?t with cardiac rehab. There is repeated data of the cardiac rehab model for POTS to improve and reduce symptoms. At the Clinic the cardiac rehab is a one-time visit and the patient is given the template to do independently. Locally, the cardiac rehab division may help in routine visits. Also utilize free information. Internet search and print the pots manual on the [facility] website POTS Manual: Read the POTS manual online. This will help you understand your POTS diagnosis, work with your medical team, and includes detailed instructions and tips for improved daily living with POTS. [email or web address] POTS [facility] CARDIAC REHAB PROGRAM for patients. 2. Seated chair yoga and if patient can tolerate, sandro chi for balance helps. Also this work helps with inspiration and expiration to help heart rate variability. 3. Seated recumbent bike and even a foot peddle bike at home depending on the level of disability of the patient can help and should be encouraged. 4. Counting steps program with graduating accumulation of steps in the day should be encouraged. A walking program even if the patient just takes for example 50 steps every hour during wakefulness should be encouraged and over time evolve to more steps per interval. 5. PT locally for more muscle strength and maintain gait/balance. 6. Some due to neck pain and the coat changer fixer of neck muscle orthostatic hypo perfusion will developdizziness and vertigo. Vestibular rehab for cervical vertigo may be needed. 7. Gait dysfunction can be for many reasons the underlying neurological diagnosis and inclusive of the impact of deconditioning. There is an orthostatic gait disorder of the elderly where syncope hasto be considered in sudden unexplained falls. SALT LOADIN. The loading of salt can be 3-5 grams per day if it is permitted. 2. Some will do salt tablets that are purchased over the counter. Take with food since can cause nausea. 3. Encourage patients to add salt to nutrient rich food or consume salty foods. (Avoid default foods such as potato chips that are calorie rich but nutrient poor.) 4. Veggie, Chicken, and Beef Broths are good ways for hydration and salt. 5. Pickles and olives are salty snacks. 6. Salt and water loading the patient may note more bloating and increased BMI. More abdominal and pelvic girth can occur. HYDRATION: This matters greatly for orthostatic patients 1. Maintaining 64 -84 ounces per day if allowed with other health issues per day is pepe. 2. Challenges are older persons who will not want to drink as much to avoid night time and frequenturination. We encourage early am hydration. 3. Water helps and is free. Tap water is ?ne. 4. Patients can purchase electrolyte solutions. Again be mindful of cost and if also cause GI symptoms of nausea, bloating, and diarrhea (see under GI health step 7.) 5. Watch if a concern for hyponatremia by ua and bmp. LEG SWELLING: Can occur from the blood pooling from the orthostatic issues. The legs may even turn blue, red, and pale. Some may have even livedo reticularis. 1. Treating the orthostatic disorder will help. 2. Compression stockings knee high, thigh high, and even panty hose can help. 3. Having the patient elevate the legs up above the heart repeatedly during the day will help. 4. If possible, repeatedly do the legs on the wall yoga maneuver. 5. Often legs swell from inactivity. Orthostatic exercise can help greatly. SLEEP: Sleep can be a challenge due to aspects of typical chronic health issues of inconsistent sleep schedule, inactivity, medication effects and even mental health aspects of chronic disease (worriment, rumination of the future, uncertainty). 1. Having the patient maintain same sleep schedule with bed at the same time and awakening the sametime daily is pepe. Try to avoid naps. Keeping the room in the ideal temperature control helps. Keeptechnology out of the room such as tablets, cellphones, TV, and laptops with the screen light that can maintain wakefulness. If patient cannot sleep, have them get up out of bed for 30 minutes or so to read and then go back to bed. 2. Melatonin 3-10 mg to take 2 hours before sleep can help 3. We try to avoid typical sedatives if possible 4. We avoid TCA medications for sleep since can potentiate orthostatic issues 5. Remeron/mirtzatipine 7.5-45 mg at HS can be used for sleep 6. Beta blockers at HS is used for POTS patients to control the adrenergic symptoms 7. Many orthostatic patients have nocturnal symptoms especially due to lack of body movement and reduced circulation of the blood. POTS patients due to the adrenergic response can have more supine chest pain, racing heart rate, restless sleep, nightmares, sweating, and awakenings. The pure autonomic failure, neurogenic orthostatic hypotension, autonomic neuropathy, Parkinson s, and multisystem atrophy patients due to the baroreceptor dysregulation response to help can still have supine HTN events (see below). PAIN: Many patients may have pain from orthostatics. 1. Some have small ?cooper neuropathy that is associated that can cause pain. Typical medications except TCA (due to promoting orthostatic issues) may help nerve pain. 2. Some of the POTS patients have Ehler-Danlos Syndrome that has joint disorder and neuropathy associated. 3. Inactivity causes joint stiffness. 4. Headaches and neck pain from hypoperfusion (there is an orthostatic headache and coat changer fixer syndrome.) Treating the orthostatic syndrome may help, but some may still have pain. 5. Be mindful of medication overuse such as in headaches of medicament overuse and also opioate usedisorder that can amplify pain. Compression Stockings and Garments: They do help, but are a struggle. Encourage patients to try them and explore various modalities if can with medical and non- medical. Again, this can be costly for the patient. Sports brand and non-medical compression stockings and garments may give relief and thepatient may have to shop around to ?nd the right gramajo point for them. 1. Compression stockings to the knee 20-30 mm Hg 2. above the knee thigh high 20-30 mm HG 3. Compression stockings to hip level /panty hose help since most of the blood is in the pelvic area 4. Abdominal binder can be helpful 5. Arm compression sleeve 6. Spanx 7. Encourage the patient to explore and do various combinations of the above. Also to use the gear in different aspects of the day. Most times in hot weather is not permitted outside. Also most cannot wear to bed. GI HEALTH: Many autonomic patients have associated GI complaints of bloating, re?ux, diarrhea, constipation and IBS. 1. Some actually will have de?debra GI motility of gastric and/or colonic motility by gastric empty, colonic motility studies, or capsule endoscopy studies. POTS patients in publications may have rapidmotility due to the adrenergic response. 2. Reviewing all medications for impact or irruption of the GI system is always good. 3. Treating for GERD is helpful. 4. Treating with typical routine care of medication and diet for diarrhea and constipation is helpful. Having the patient follow food triggers may help. Some may bene?t with FODMAP diet for IBS. 5. Maintaining hydration that helps orthostatic self-care helps GI health also. 6. For some the excessive salt loading may contribute to nausea and diarrhea, should be deciphered,and have the patient cut back to see if this is a factor. 7. Some of the purchased electrolyte drinks may cause GI symptoms. Have the patient cut back or change to another form of care to see if this is a factor for their GI symptoms. 8. Some patients need to see GI for evaluation of ulcers, celiac, and consequence of refractory issues of dysmotility. 9. Supplements of magnesium oxide 400 mg bid or tid can help constipation. BLADDER DYSFUNCTION: This can be a common complaint for autonomic patients. 1. POTS patients due to the adrenergic issues have often urgency and frequency symptoms. 2. Due to inactivity many patients will develop some pelvic ?oor dysfunction and thus bene?t with pelvic ?oor physical therapy to strengthen these muscles. 3. Frequent UTIs and Kidney Infections should prompt a Urology consult for bladder atonia and potential urodynamics studies. 4. All routine medications and supplements need to be reviewed that can bother the bladder function. 5. Sometimes the symptoms are challenging to decipher objectively and will need a Urology consult to address. SICCA SYMPTOMS: Often the patient may have dry eyes and mouth symptoms without having diagnostic evidence of Sjogren s Syndrome (lip biopsy.) 1. Eye exam by an top cager to evaluate diagnostically for dry eyes and if needed over the counter or prescription treatments. 2. Dry mouth can be common from routine medications and need to be reviewed as potential culprits. 3. With dry mouth the patient should be referred to the dentist for best care and plan. 4. The patient should be careful with dry mouth not to over use some sugar free treatments for dry mouth since can promote diarrhea and IBS. 5. Dameon in food and supplements may help some dry mouth. 6. If need pilocarpine tablets may be needed. MENTAL HEALTH: Most patients with this disease due to the impact and struggle of daily life of the change of self, burden, uncertainty, and grief will go through various emotions. 1. We encourage patients and their support person to pursue counseling for skills to live with chronic disease. 2. In depression and anxiety medications like SSRI may help with less impact on orthostatic. 3. Medications like Duloetine and Venfaaxline are not as ideal for POTS but the other orthostatic conditions. Actually these medications may help mental health and higher dose raise the BP. The POTS patients due to these drugs mechanism of action may aggravate the adrenergic symptoms. 4. Periodically check for depression, anxiety, and for even conceding SI, SA, HI, [place]. IV FLUIDS: We generally do not support the chronic use of IV ?uids for orthostatic and POTS patients. We also do not condone the use of a port for most patients. Most patients with routine orthostatic care will not need this treatment. 4. MY CHART, we encourage patients to use this portal for medical issues only and to send a brief 1-2 sentences issue. Large messages will encourage a needed virtual appointment perhaps. 5. The patient can always ?nd their of?ce visit in the MY CHART portal. 6. Care Everywhere if EPIC is shared will have our of?ce notes. 7. We encourage all our patients to have a local family medicine team to work with since we cannot handle medical issues by MY CHART, phone call, and are not able to immediately see a patient. 8. The POTS patients can request also the POTS ER letter if needed to have with them for ER and Urgent Care needs. 9. Some Orthostatic and POTS patients may need either or both a Neurologist and a Manager Store locally to be part of their care. DISABILITY: 1. Many of the patients may not be able to work. Due to the diverse scope of the work we do at the Clinic we sincerely cannot attest or keep up with the paperwork for disability. We can at times write of support for disability, but not be the main medical provider of the paperwork. POTS Manual: Read the POTS manual online. This will help you understand your POTS diagnosis, work with your medical team, and includes detailed instructions and tips for improved daily living with POTS. [email or web address] ORTHOSTATIC TIPS Orthostatic Dysfunction Daily Living Tips Living with a disorder of the autonomic nervous system is life altering. Making lifestyle changes in order to thrive in their day to day and long-term is essential. Orthostatic disorder occurs when the upright positioning of the body causes variable blood pressurechanges that induce symptoms. Your body has a network of blood vessels made up of arteries, veins, and capillaries. The heart pumps blood into the arteries, which carry the blood throughout the body. Blood pressure is the pressure or force of blood pushing against the schuster of the arteries. Blood pressure is written as two numbers Systolic (top number) and Diastolic (bottom number) for example a normal blood pressure would be read as 120/80. The first number, systolic pressure is the pressure in the arteries when the heart beats and fills them with blood. The second number, diastolic pressure is the pressure in the arteries when the heart rests between beats. Orthostatic hypotension is a condition in which your blood pressure falls significantly when you stand up quickly. The main symptoms of orthostatic disorder is dizziness and feeling lightheaded upon standing. In some cases, people with orthostatic hypotension may even faint. Other symptoms include: Blurred vision Nausea Disorientation or confusion Feeling weak Fatigue Falling Chest pain Neck pain Cognitive disorder Difficulty breathing Base of neck pain and head pressure Weak, rubbery legs, difficulty walking Rebound or surge in blood pressure spikes especially when laying down These symptoms usually clear up when you sit or lie down for a few minutes. BEST PRACTICE DAILY TIPS Please make all postural changes from lying to sitting to standing slowly Drink 2-2.5 liters of fluid per day. On a bad day or with worsening of symptoms, drink 500 cc of water quickly. This will result in an increase in blood pressure within five minutes of drinking the water with the effect lasting up to one hour. In the case of Congestive Heart Failure and Hypertension or any other medical condition with salt restrictions, please follow clinician recommendations regarding fluid and sodium intake. Avoid large meals which can cause low blood pressure during digestion. Eat smaller frequent meals throughout the day. Meals rich in carbohydrates can create more orthostatic symptoms. Avoid alcohol as it can worsen low blood pressure upon standing. Limit caffeine intake as it may increase urine production and reduce blood volume. Compression stockings while somewhat uncomfortable do help those with disorders of the autonomic nervous system. High-waisted leggings can also help as do abdominal binders which are very helpful. Purchase a blood pressure cuff to monitor blood pressure and pulse. Take your vitals per guidance of your provider. Also, when feeling unwell check your vitals and keep a log. This is so providers may review in the future. HYDRATION There are many commercially produced hydration and sports drinks available. If you choose, you can make your own beverage using the recipe from the World Health Organization. This can be cost effective and is free of preservatives. Maintaining 64 -84 ounces per day as long as it is not contraindicated due to other health issues is pepe. Drinking earlier in the day avoids as much to avoid frequent and nighttime urination. Water helps and is free. The recipe is from the World Health Organization (WHO) and is as follows: Filtered (tap or bottled) 1 liter of drinking/tap Mix with teaspoon of salt, six (6) teaspoons of sugar or sugar substitute Let cool This will give you five cups ESSENTIAL PHYSICAL ACTIVITY Part of the daily care involves moving the body. Exercise does help orthostatic patients live better lives. Though it seems challenging, it helps control symptoms and often improve them. Those with this disorder can become physically deconditioned quickly as a result of long periods ofactivity. . The type of exercise and level of difficulty as well as time spent vary from person to person and should be determined by your clinician. Even starting for five to ten minutes per day andworking your way up will make an impact. Pepe is consistency and frequency. Have a support person or manuel present when beginning for safety and guidance. Start slow and reevaluate in a week and then a month. Here are some general tips that are helpful if done daily. Perform lower extremity exercises to improve strength of the leg muscles. This will help prevent blood from pooling in the legs when standing and walking. Preferred exercises are walking, squatting, foot peddle bike, and use of a stationary bicycle. If you are able to walk when counting steps, use your phone, a Pure360 bit, or life logging device to count steps. Gauge your daily steps and over time increase them. Example: 3000 steps per day. Do 300 per hour to 3000 total per day. Seated chair yoga and sandro chi for balance helps. This helps with inspiration and expiration to improve heart rate variability. These options can be found online also. Seated recumbent bike and even a foot peddle bike at home depending on the level of disability of the patient can help be beneficial. A Counting steps program with graduating accumulation of steps in the day should be started. A walking program even if one takes 50 steps every hour during wakefulness should be done and over time evolve to more steps per interval. If indicated, physical therapy locally for more muscle strength and to maintain gait/balance. SOCIAL MEDIA Social Media can be a great resource and a way to connect with people who share your diagnosis. However, it is important to be mindful of the content posted. Everyone has a different journey. Be sureyour information comes from a reliable source and do not take medical advice from social media always contact your clinicians to review relevant information specific to your condition and follow yourown medical plan of care. SALT LOADING: The loading of salt can be 3-5 grams per day if it is permitted. Some will do salt tablets which can be purchased over the counter. Take with food since can cause nausea. Encourage patients to add salt to nutrient rich food or consume salty foods. (Avoid default foods such as potato chips that are calorie rich but nutrient poor.) Veggie, Chicken, and Beef Broths are good ways for hydration and salt. Pickles and olives are salty snacks. Salt and water loading the patient may note more bloating and increased BMI. More abdominal and pelvic girth can occur. Watch for any elevated blood pressure readings. LEG SWELLING: Can occur from the blood pooling from the orthostatic issues. The legs may even turn blue, red, and pale. Some may have even livedo reticularis. Treating the orthostatic disorder will help. Compression stockings knee high, thigh high, and even panty hose can help. Pressure grade 20-30 or higher can be tried to see what helps and is comfortable. Wear them for a few hours in the day, while walking, and mild activity. They are not recommended to wear during sleep. Elevate legs up above the heart repeatedly during the day to reduce swelling. If possible, repeatedly do the legs on the wall yoga maneuver. This can be done while lying in bed. SLEEP: Sleep can be a challenge due to aspects of typical chronic health issues of inconsistent sleep schedule, inactivity, medication effects and even mental health aspects of chronic disease (worriment, rumination of the future, uncertainty). Keep the room the ideal temperature for your comfort. Keep technology out of the room such as tablets, cellphones, TV, and laptops as they can maintain wakefulness. If you cannot sleep, get out of bed for 30 minutes or so to read and then go back to bed. Melatonin 3-10 mg to take 2 hours before sleep can help. Review in your next routine medical appointment if this is an option for you. We try to avoid typical sedatives if possible as they can potentiate orthostatic issues. Many orthostatic patients have nocturnal symptoms especially due to lack of body movement and reduced circulation of the blood. POTS patients due to the adrenergic response can have more supine chestpain, racing heart rate, restless sleep, nightmares, sweating, and awakenings. Go to bed and wake up at the same time daily including weekends. Do not nap more than 30 minutes during the day. PAIN: Many patients may have pain from orthostatic issues Inactivity causes joint stiffness. Exercise and gentle range of movement of the joints will often relive stiffness. Headaches and neck pain from hypo perfusion (an orthostatic headache and coat changer fixer syndrome lay down and goes away.) Treating the orthostatic syndrome may help, but some may still have pain. Review with clinician in follow-up. Think about what makes pain better and what makes it worse and describe during appointment. COMPRESSION STOCKINGS AND GARMENTS: They do help, but can be a struggle. Help from your clinician as well as determining personal preference and effectiveness are pepe. Please note, it may be difficult to wear compression gear in the heat and make sure not to wear to bed. Below are a few general guidelines. Compression stockings to the knee 20-30 mm Hg above the knee thigh high 20-30 mm HG Compression stockings to hip level /panty hose help since most of the blood is in the pelvic area Abdominal binder can be helpful Arm compression sleeve Spanx High waisted leggings GI HEALTH: Many?autonomic?patients have associated GI complaints of bloating, reflux, diarrhea, constipation and IBS. If you notice any food that trigger discomfort, be mindful. Maintaining hydration helps orthostatic self-care and GI health also. Some of the purchased electrolyte drinks may cause GI symptoms. Find which one works for you or make your own hydration drink following the WHO recipe found earlier in this document. Supplements of magnesium oxide 400 mg twice or three times per day can help with constipation. Please check with your provider before starting any new supplements. BLADDER?DYSFUNCTION: This can be a common complaint for?autonomic?patients. Due to inactivity many patients will develop some pelvic floor?dysfunction?and thus benefit from pelvic floor exercises throughout the day to strengthen these muscles. Sometimes the symptoms are challenging to decipher objectively and will need a Urology consult to address. Dry Mouth and Dry Eyes: Often the patient may have dry eyes and mouth symptoms. Eye exam by an top cager to evaluate diagnostically for dry eyes and if needed over the counter or prescription treatments. Dry mouth can be common from routine medications. With dry mouth please see your dentist for best plan of oral hygiene and care. MENTAL HEALTH: Most patients with this disease from the impact and struggle of daily life will go through various emotions. We encourage patients and their support person to pursue counseling for skills to live with chronicdisease. In depression and anxiety medications like SSRI s and SNRI s may help with less impact on orthostatic. These medications may be prescribed by medical providers in follow-up visits if indicated. IV FLUIDS: We generally do not support the chronic use of IV fluids for orthostatic patients. documented in this encounterC[facility] Miscellaneous Notes* Telephone Encounter - Esther Henson Pss - 09/08/2021 9:25 AM EDT Received faxed report of medical records done at [facility] on 02/20/2018 and 04/05/2018. Uploaded via [employer], will be available in [employer] for review shortly. documented in this encounterCincinnati [facility]07-27-2022 History of Present illness Narrative* Sherwin Anne MD - 09/07/2021 3:23 PM EDT Images from the original note were not included. [facility] Follow up/ Established patient visit - Virtual Visit Date of last visit : 03/04/2021 Interval history : Here for follow up for sleep study results. At initial visit was noted to have snoring and eds, with insomnia. Referred for CBT-Insomnia program. Also sent for Home Sleep Apnea Test. Completed CBT-Insomnia program. Reports sleep is more regular and continuous, but that she is stillsymptomatic during the day. Does not wake feeling refreshed and struggles with fatigue during the day. Home Sleep Apnea Test inconclusive so followed up with Polysomnogram. Polysomnogram was normal. PATIENT-ENTERED QUESTIONNAIRE SLEEP SCORES Sleep Questions 09/07/2021 Reason for visit: Difficulty falling or staying asleep or poor sleep quality Average hours slept in 24 hours: 6 Accidents or near accidents due to drowsy drivin [place] Sleepiness Scale 03/01/2021 09/07/2021 Score 0 (No daytime sleepiness) 2 (No daytime sleepiness) PROMIS CAT Sleep Disturbance 09/22/2020 03/01/2021 09/07/2021 PROMIS Sleep Disturbance T-Score 50 (within normal limits) 65 (moderate) 58 (mild) Insomnia Severity Index 02/15/2021 05/31/2021 09/07/2021 Score 6 17 10 PHQ-9 05/31/2021 07/13/2021 08/26/2021 Score 11 9 9 PROMIS Global Health - (T-Scores - the mean of general population = 50. Five points is a clinicallymeaningful difference.) 01/05/2021 04/06/2021 07/13/2021 Physical T-Score 32.4 32.4 32.4 Mental T-Score 31.3 28.4 25.1 SLEEP RELATED ROS Review of Systems ALLERGIES Allergen Reactions Amoxicillin-Pot Cla* Other: See Comments extreme dizziness Bactrim [Sulfametho* GI Upset Cephalexin Unknown Ciprofloxacin Unknown Lexapro [Escitalopr* GI Upset [place] Juice Rash Sertraline Mental Status Change, Other: See Comments Trimethoprim Other: See Comments CURRENT MEDICATIONS: metoprolol tartrate, short acting, (LOPRESSOR) 25 mg tablet Take 1 tablet by mouth once daily in morning and 1/2 tablet by mouth daily in evening sodium chloride 1 gram tab TAKE 1 TABLET BY MOUTH 3 TIMES A DAY *TAKE WITH FOOD* hydrOXYzine HCl (ATARAX) 10 mg tablet Take 1 tablet by mouth three times daily as needed. gabapentin (NEURONTIN) 300 mg capsule 1 capsule 2x/day gabapentin (NEURONTIN) 100 mg capsule Take 2 capsules by mouth twice daily. (taken with 300mg capsule) tiZANidine (ZANAFLEX) 4 mg tablet Take 1 tablet by mouth daily at bedtime. ondansetron orally disintegrating (ZOFRAN ODT) 4 mg disintegrating tablet Take 4 mg by mouth once daily as needed. ibuprofen (MOTRIN) 200 mg tablet Take 200 mg by mouth as needed. acetaminophen (TYLENOL) 500 mg tablet Take 500 mg by mouth as needed. PHYSICAL EXAMINATION: [facility] 09/05/2020 (Within Weeks) Virtual Visit IMPRESSION: Chronic insomnia (primary encounter diagnosis) Snoring Clinical Global Impression of Change ( CGI-C) Compared to the patient's condition at baseline, how much has the patient changed? Not assessed PLAN: Patient has done very well with CBT-Insomnia program and sleep testing did not reveal any significant sleep disorders. Unfortunately, we still do not have a clear answer for her ongoing fatigue symptoms. I reassured her that symptoms are not related to a sleep disorder but do not have answers for why she is still struggling with fatigue. Sherwin Anne MD documented in this encounterCincinnati [facility]07-27-[facility]22 Nurse Note* Sherman Finley - 09/07/2021 3:20 PM EDT Patient was concerned about if her result and additionally document being faxed/ sent over from [facility] . Spoke with patient regarding upcoming virtual visit with provider. The following information was provided. Reason for visit. routine follow-up and discuss sleep study results Patient questionnaire completed. yes E-check in completed. yes Blood pressure: 116/79 mmHg on Height: 5'4 Weight: 186 lbs (self-reported). Allergies reviewed.Yes Insurance verified.Yes Medications have been reviewed/reconciled, and pharmacy has been verified.Yes Is the patient using PAP therapy (CPAP/BiPAP)? No - other therapies being used (if any): n/a Name of PAP machine. other n/a PAP download status - other n/a Is patient transferring care from another Sleep Center provider? No: Are there any external records from a previous sleep provider that need to be provided prior to visit? For new patients, this includes any sleep testing records and a recent chart note from outside provider managing Sleep Disorder. No External medical records have been uploaded to patient's chart. no - patient was advised this must be completed prior to the visit Informed patient that any data from health apps (Sleep health apps - FitBit, Garmin, Apple, Samsung, etc.) can be uploaded to [employer] by attaching the image; and that the image would be available in scanned documents section of [employer]. Sherman Finley REMOTE SENSING RESEARCH SCIENTIST documented in this encounterCincinnati [facility]07-27-2022 History of Present illness Narrative* Wilma Mujica, RD - 09/07/2021 8:36 AM EDT [facility] Nutrition Therapy: Virtual Consult Re-assessment This visit was performed virtually due to the COVID-19 pandemic as an effort to protect patients and minimize exposure. Consent from patient received to conduct visit virtually. This Team Access Model visit is a virtual encounter. It required patient-provider interaction for the medical decision making as documented below. PROGRESS: Nutrition Intervention (date of last encounter 07/27/21): Modify type and amount of food consumed for meals and snacks: - Keep up the great work with incorporating healthier meals and snacks at home and pre-plan all weekly meals and snacks so more likely to eat at home. - Consider pre-planning easy to prepare meals as well such as salads, soups and sandwiches, etc. - Consider limiting eating out to no more than once weekly and make healthier menu choices when dinning out (see previous handout sent on healthy dinning out). - Consider including activities that help to decrease stress that are non-food related such as exercise as tolerated, attending virtual restorationism sessions or support groups, reading, listening to music or journaling. CHANGES IN TREATMENT: Patient met goal(s): Partially Actions to implement interventions: See assessment Pt reported information: - Reports she is walking every other day for 15 minutes for therapy with [facility] (going to therapy twice weekly) and was given permission to increase duration of walks as tolerated. - Feels like the food intake has remained the same since last visit. - Some days have been better with reducing eating out but still eating out more than she was in thepast. - Not tracking food intake but does feel it was helpful in the past with identifying behaviors thatneed to be modified to be successful with goals of weight loss. - Expresses frustration wit lack of weight loss now that activity is slowly starting. - Feeling overwhelmed by all things she is being asked to do from all providers she is working withto achieve goals and wants to work on small behavior changes at a time. CLINICAL IMPRESSIONS: good ANTHROPOMETRICS Height per patient: 5'4 Weight per patient: 186 lbs Most recent height and weight per EPIC Height: Last 1 Encounter Ht Readings: Date: Ht: 09/07/2021 162.6 cm (5' 4 ) Weight: Last 1 Encounter Wt Readings: Date: Wt: 07/27/2021 84.4 kg (186 lb) Body mass index is 31.93 kg/m . Resting Metabolic Rate: 1560 Malnutrition Screening Significant unintentional weight loss? No Eating less than 75% of usual intake for more than 2 weeks? No Potential Signs of Inflammation: no identifiable sources Nutritional status: RECOMMENDED MALNUTRITION DIAGNOSIS: NO MALNUTRITION IDENTIFIED Educational materials provided: None this visit Patient presents for follow-up nutrition visit to discuss weight management/desire to lose weight. Since last visit, pt with weight stability. Reports that typical food intakes have not changed that much from last visit. Still eating out often although trying more recently to reduce frequency of suc h. Due to more calorically dense foods, pt likely not achieving weight loss as intakes not providing a calorie deficit needed to for weight loss and pt would likely benefit from healthier foods provided at home that offer better controlled calories. Activity is now at 15 minutes every other day with walking per [facility] therapy guidelines and slowly increasing over time which will likely help with goals of weight loss. See all interventions/recommendations discussed during visit this day. Nutrition Diagnosis: Behavioral-Environmental: Food and nutrition related knowledge deficit, related to, lack of prior exposure to information , as evidenced by client has no prior knowledge of need for food and nutrition - related information. Nutrition Intervention: Modify type and amount of food consumed for meals and snacks: - For now, track food intake 3-4 times per week (every other day) to get a baseline of average calorie intake. - Eventual calorie goal for weight loss to achieve is 7517-5847 calories a day. - Continue to work on reducing the frequency of eating out and preparing healthier meals at home. - Follow-up with nutrition in 6 weeks to discuss findings with average calorie intakes and daily food intakes and we will work on setting 1-2 goals at that time to help with your goals of weight loss. - Maintain therapy weekly with [facility] providers and follow exercise guidelines they provide. Nutrition Monitoring & Evaluation: Weight loss of 1-2 pounds per week and adherence to above recommendations. Criteria: patient update and weight check Need for Follow up: 6 weeks MNT Billing Type: Re-assess/15 min 2 units Signed by: Wilma Mujica RD, LD, CDCES documented in this encounterCincinnati [facility]07-21-2022 Miscellaneous Notes* Telephone Encounter - Wilma Parmar RN - 09/01/2021 3:15 PM EDT Script was sent 08/31/21 Moni Parmar RN documented in this encounterCincinnati [facility]07-20-2022 Miscellaneous Notes* Telephone Encounter - Wilma Parmar RN - 08/31/2021 10:14 AM EDT New script for metoprolol tartrate sent to pharmacy. Moni Parmar RN documented in this encounterCincinnati [facility]07-19-2022 Evaluation note* Encounter Date Diagnosis Assessment Notes Treatment Notes Treatment Clinical Notes Aug, Chest pain, unspecified type (IC D-10 - R07.9) Lengthy 30+ minute discussion with patient today. Historically we have tried the steroid for her chest discomfort. She did see the urgent care recently, but no imaging was performed. She has had numerous CAT scans as well as chest x-rays. She really does not show any signs for an infectious picturetoday, such as fever or chills or production of cough. Patient to call with results of the steroid. Certainly if her symptoms persist or worsen we may need to pursue further investigation. Aug,TSD (post-traumatic stress disorder) (ICD-10 - F43.10) Aug,GAD (generalized anxiety disorder) (ICD-10 - F41.1) [employer] Other 07-18-2022 History of Present illness Narrative* Jimenez Sandoval MD - 08/29/2021 8:17 AM EDT Virtual Visit Last seen: 04/25/21 (virtual) Overall status: no supernoticeable progress Main symptoms: Chest pain, fatigue, tachycardia, dizziness, brain fog Gabapentin 500 2x/day (300 + 2 100s) Self reduced to qHS at some point (suicidal thoughts / none now - less stressed) Not sure what it's doing D/c frances Was started on metoprolol Feels slightly better wrt dizziness / lightheadedness and tachycardia Dizziness: general dizziness Constant w/ fluctuation (ave - moderate) Better when laying down Worse with activity Lightheadedness On/off As long as she standing / walking Couple of times per week? When standing / walking - upper body is swaying out of sync with her lower body Newer issue? On/off Worse when in a store brain fog / forgetfulness - no change Constant Neck pain: not so much / a little bit No longer constant Headache: Last botox - April 2021- has stopped No longer an issue. Has not had a [place] since around 3 weeks ago Photophobia at times - mild, few minutes, 3x/month? Neck PT / VR: David Roche - current - started last Sunday - 2x/week VR PT - Chio Arceo - moved to [facility] Energy: very fatigued Feels that her energy was better when on midodrine Sleep: Was better Not as good lately Ended her CBT Anxiety / depression: so so Next schedule with psychologist - [facility] (trauma processing skills) - in October Seeing a health psychologist - Ed? Has never seen a psychiatrist Dx: Multifactorial dizziness. Increase in dizziness following COVID infection in 01/31 Migraine headaches no longer an issue. Patient is currently no longer getting botox. Possible migraine activity, better than before, though without headache manifest as photophobia POTS Plan: - continue neck PT with David Roche - continue metoprolol (per [place] / [facility]) - consider d/c gabapentin (fatigue, lack of benefit?) - f/u PRN Patient in agreement with plan cc: Misha Sy DO* (to sec*) Fazal Huddleston DO Shannon, Kyle, CAKE MAKER Total Time: 22 min Virtual Visit performed using: Zoom Patient was accompanied by: Self Patient verbally consented to this electronic visit Patient-Entered Questionnaire Scores HIT-6 04/02/2018 KP HIT-6 58 Dizziness Handicap Scores 05/06/2020 04/19/2021 08/29/2021 Emotional Score - - - Emotional Score 14 24 24 Physical Score - - - Physical Score 8 18 20 Functional Score - - - Functional Score 16 22 22 Total Score - - - Total Score 38 64 66 PHQ-9 05/31/2021 07/13/2021 08/26/2021 Score 11 9 9 documented in this encounterCincinnati [facility]07-15-2022 History of Present illness Narrative* Queta Ward PSYD - 08/26/2021 9:00 AM EDT [facility] Clinical Health Psychology Follow-Up Virtual Yolanda Aparicio [phone] Time spent in session: 60 minutes Parties Present: Patient Diagnoses: PRIMARY: PTSD Other: Generalized Anxiety Disorder Adjustment Disorder w/ depressed mood POTS Post-acute 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) Due to the federal emergency declaration and the need for ongoing mental health services, the following visit was completed virtually and informed consent was obtained orally to reduce the risk of Covid-19 exposure. Oral consent to services related to virtual visits was obtained after information was sent via [employer] during this patient initial evaluation with the provider. Discussed privacy riskfor virtual sessions. 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 - Dr. Sandoval sent new PT order 08/09, sched for vestibular f/u 08/29 to eval med changes, sent headache log to provider - continued assistant chief train dispatcher f/u 07/27 - pt no-showed 08/11 appt, resched for 08/17 however this was cancelled d/t provider unexpectedly out - Attended [facility] educational SMA 08/16 - 08/[address] Sandoval vestibular f/u TODAY'S INTERVENTIONS: Discussed medical updates and engaged in active problem-solving. Processed legal hearings in context of PTSD. Processed pt's ongoing process of working towards stability w/ her health management, triaging daily stress, feeling overwhelmed. Incorporated POTS education, processed POTS sx triggering COVID trauma and sx memory. Psychoeducation re: understanding sx as POTS chronic illness vs acute illness, will continue to work on CBT for health anxiety. Evaluated progress re: exposure interventions following prior session; pt reported PT wants her to walk outside 15 min and walk at grocery store and in other busy environments to help address overstimulation re: vestibular issues (e.g., dizziness). Considered how this intersects w/ PTSD sx. Typically she does not have much stimuli in home environment, agrees that these interventions would be valuable for both physical/vestibular and PTSD sx management/rehabilitation. Continued trauma processing and exposure therapy interventions; Discussed challenges of resuming normal functioning in context of continued pandemic and safety/health concerns. ASSESSMENT: PHQ-9 Score: 9 (08/26/2021 8:46 AM) (0-4) minimal depression, (5-9) mild depression, (10-14) moderate depression, (15-19) moderately severe depression, (20-27) severe depression ROSE MARIE-7 Total Score: 9 (08/26/2021 8:46 AM) (0-4) minimal anxiety, (5-9) mild anxiety, (10-14) moderate anxiety, (15-21) severe anxiety MENTAL STATUS: Ms. Aparicio was seen virtually; well-groomed, cooperative. Mood was mildly depressed/anxious w/ affect that was mood congruent. Speech was normal in rate, volume and articulation and clear, coherent,and relevant. Thoughts were logical and relevant without delusional thinking or hallucinations. Somatic preoccupation was mild. Denied SI. Judgment and insight were good. Attention span and concentration appeared normal. She was oriented to time, place and person. Memory appeared good. MEDICATIONS: Per medical record: Current Outpatient Medications Medication Sig metoprolol succinate ER (TOPROL XL) 25 mg 24 hr tablet Take 1 tablet by mouth once daily. Take 25 mg in the morning and 12.5 mg in the evening. sodium chloride 1 gram tab TAKE 1 TABLET BY MOUTH 3 TIMES A DAY *TAKE WITH FOOD* hydrOXYzine HCl (ATARAX) 10 mg tablet Take 1 tablet by mouth three times daily as needed. ivabradine (CORLANOR) 5 mg tablet Take 2.5 mg by mouth twice daily. gabapentin (NEURONTIN) 300 mg capsule 1 capsule 2x/day gabapentin (NEURONTIN) 100 mg capsule Take 2 capsules by mouth twice daily. (taken with 300mg capsule) tiZANidine (ZANAFLEX) 4 mg tablet Take 1 tablet by mouth daily at bedtime. ondansetron orally disintegrating (ZOFRAN ODT) 4 mg disintegrating tablet Take 4 mg by mouth once daily as needed. diazePAM (VALIUM) 2 mg tablet Take 1 mg by mouth once daily. ibuprofen (MOTRIN) 200 mg tablet Take 200 mg by mouth as needed. acetaminophen (TYLENOL) 500 mg tablet Take 500 mg by mouth as needed. Current Facility-Administered Medications Medication Dose Route Frequency perflutren lipid microspheres 1.3 mL in NaCl (PF) 0.9% 10 mL injection (DEFINITY) INTRAVENOUS DIRECTED PRN sodium chloride 0.9 % (flush) 10 mL (BD POSIFLUSH) 10 mL INTRAVENOUS DIRECTED PRN PROGRESS TO DATE/ASSESSMENT: Impression per update (04/18/21): Ms. Aparicio is a 25 year old, single, White female who was referred by Jaskaran Guzman CNP. She presents with POTS and PASC. She meets criteria for PTSD, ROSE MARIE and Adjustment Disorder w/ depressed mood (depression has developed within context of chronic medical conditions and subsequent functional impact). Current sx significantly interfere with her functioning and quality of life. The relationship between her physical and emotional sx is likely bidirectional in nature, in that her medical conditions and mood reflect a hyperactive [employer]. 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 Ms. Aparicio lacks support and feels significantly isolated, which is contributing to her presentation. Will incorporate behavioral activation and CBT to address depression, as well as CBT for health anxiety. Will include POTS education and related management strategies. Will pursue trauma processing to reduce PTSD sx (and related [employer] hyperarousal), which will likely improve her interactions w/ medical providers. Her laureano and motivation/independence are positive values that will be incorporated into tx. Duration of tx is expected bandar moderate, depending on progress towards goals. PLAN: Homework: exposure interventions Next: CBT for health anxiety (cognitive distortions, thought record) Follow Up: virtual 09/19/21 3pm uQeta Ward PsyD Clinical Psychologist [facility]* Patient Instructions* Queta Ward PSYD - 08/25/2021 2:36 PM EDT Next virtual follow-up scheduled for 09/19/21 at 3pm. [facility] Evaluation note* Encounter Date Diagnosis Assessment Notes Treatment Notes Treatment Clinical Notes Aug, Viral URI (ICD-10 - J06.9) Strep in-house strep and COVID PCR testing are all negative. Patient does not appear to be in acutedistress, no active chest pains, does not appear to be short of breath, vital signs are stable. Provided reassurance that patient's clinical presentation is low suspicion for any severe lung infections or cardiac pathology at this time. This is likely exacerbation of seasonal allergies or viral upper respiratory infection. I advised that patient start the Flonase prescription, may also add [id number] antihistamine to help with symptoms of nasal congestion and postnasal drip. Rest. Push fluids. She should follow-up in about a week if symptoms do not improve despite treatment. I did also advise patient to go to ER for immediate evaluation if her chest pain and/or shortness of breath continues to worsen or become severe. Patient verbalizes understanding and agrees with treatment plan. [facility] Other 07-05-2022 History of Present illness Narrative* Alvin Huddleston DO - 08/16/2021 4:27 PM EDT Yolanda Aparicio is a 26 year old female. SHARED MEDICAL APPOINTMENTS: Patient is at home I spent a total of 60 minutes on the date of the service which included [id number] patient care, completing clinical documentation, communicating results to the patient/family/caregiver, and care coordination (not separately reported). Thank you so much for joining us on Sunday for the [facility]. Learn about POTS and your diagnosis. Share with your loved ones and support people in your lives Watch repeatedly. [email or web address] CAN COPY AND PASTE THIS LINK INTO A SEARCH BAR OR CAN SEARCH YOUTUBE: FLAQUITO ORTHOSTATIC EXERCISE : VIDEO: WHAT IS POSTURAL ORTHOSTATIC TACHYCARDIA SYNDROME (POTS)? There are many videos to use for self care, education, and helps to do better Based on the volume, frequency, messages in format of texting/or snapchat types/ and repeated mychart messages we receive from patients in a month we can no long address issues of questions, medication changes,disease management in my chart forum effectively for patient care. If there is an urgent issue seek urgent care or medical level ER care. If needed review or see your PCP For POTS patients recommend to use the POTS manual, flaquito orthostatic exercise video on youtube for educational, utilize your chronic self care tools, attend more share medical appointments are recommended POTS Manual: Read the POTS manual online. This will help you understand your POTS diagnosis, work with your medical team, and includes detailed instructions and tips for improved daily living with POTS. Http://www.volgaclinic.org/pots Reminder that with health conditions that most medications and other care treatments including rehabilitation /exercise programs need 3-4 months to work . With chronic health conditions may need evenlonger to work if one has been ill and suffered. GUT 1. The gut is the second brain 2. Most of serotonin that helps mood, stamina, and pain is in gut. Gut does not work will feels worse in these aspects 3. Adrenaline stops the ability to rest and digest and thus more pain, bloating, IBS, and less goodnutrients. More skin isues (acne, eczema, rosacea, dry skin, hair loss,dry hair), leaky gut, normalbacteria leaves, and more digestion challenges /food intolerance 4. Swallow issues /gag/ voice changes since is vagal and adrenaline will make this vagal not work .Gargling, singing, brushing tongue exercises help correct. If can gargle with salt water helps also 5. Most of immune system is in the gut and can lead to much food challenges. Even can be challenge to know what is mast cell and not. Often getting gut right with probiotics, control of POTS, and diet changes to help gut healing helps reduce issue of the gut being inflamed and what may be or could be mast cell . 6. Sugar is very irritating to the gut can cause laxative effect. Also ties into why we may see that dairy, wheat, white food, gluten free is better, and less refined foods are better for pots. The sugar and the altered gut state can lead to poor absorption that lead to sugar spikes, reactive hypoglycemia, and sugar dumps. Adrenaline also leads to insulin use and sugar changes of up and then drop. Sugar spikes and drop leads to fatigue, anxiety, depressive feeling, headache, skin changes, weight up and down, and more. Why being sugar reduced is pepe and helps in POTS. FODMAP diet. Hydration drinks with less sugar and also avoid artificial sweeteners (the artificial sweeteners causes confusion to the body and spike insulin still sense there is sugar). Diets best with small meals, hydration , water, proteins, good fats (ghee butter, olive oils,) veggies, and complex carbs through the day. Have to eat and train the gut as a muscle thus small meals in the day. 7. Diet including polyphenol rich foods (colorful natural ), quercetin foods, and add tumeric help anti oxidants Supplements for helping neural excitable and mitochondrial healing Add each one every few weeks /take in am with good food Co Enzyme Q10 100 mg daily for 4 weeks then go 200 mg daily Alpha lipoic acid 600 mg daily NAD /nicotinamide adenine dinucleotide (NAD) 10 mg daily MAG stearate or glycinate 400 mg daily B12 1000 ucg daily Gut health : Less sugar to no white sugar [place] oils 1 gram daily Probiotics any type and add prebiotic foods Avoid processed foods, too much simple carbs, and too much dairy Any type of brand is good and can over time customize more as you want and learn, but start somewhere Again like any supplement can start small doses if want to adjust More tips: Hydrate with just water about 64 ounces in the day Eliminate sugar as much as can including natura types from the diet Eliminate simple sugars (refined carbs ) and reduce dairy. Small and frequent meals with proteins, complex carbs, veggies, and if use fats good oils (olive oil, avocado, walnut) . Less to no fried food Work on sleep schedule: Go to be same time and up same time with elimination of naps. Initially will be hard. Will have to get up the set time even do not rest well till the schedule sets into of this pattern of sleep pattern formation of the body be settled and wired in. Take small steps with diet and know there will be set backs along the way If have not done our exercise for POTS in the exercise [facility] then join us by my chart. If can do any simple exercise 10-15 minutes per day can use our flaquito orthostatic exercise utilizing the sandro chi,qi qong, and chair exercise. Do not have expensive brands or certain brands of supplements or foods Be patient. You have been ill for a long time. It can take 6 months for full benefit to see improvement of brain fog, gut health, stamina, and if has mast cell issues We always start with a discussion of POTS physiology. When you stand two water bottles of blood drop. To compensate, the body speeds up the heart in an effort to get blood to your brain so you don t faint. This is adrenaline and while it may feel terrible it is an autonomic protective mechanism. The brain controls the Autonomic Nervous System. The Sympathetic Nervous System is responsible for stress and survival and is why you feel the symptoms of adrenaline which include but are not limitedto: racing heart rate, chest pain, sweating, neck pain, fainting, near fainting, nausea diarrhea, bloating, frequent urination, skin tingling, ears ringing, heightened senses, inability to sleep, cannot think, brain fog, jerking limbs, muscle tightness and the list goes on... The Parasympathetic Nervous System is responsible for growth and repair, rest and digest. Some of you may notice a drop inheart rate after a sympathetic surge. The polyvagal symptoms may take over: the heart rate and blood pressure drop, you may feel cold, feel the sensation of rubber legs, defecate, urinate etc. This explains the cycle of Fight, Flight, and Freeze. Once your body gives way to adrenaline, you may become listless and exhausted feeling the rag doll effect. GI issues remain one of the constant and most common complaints of those with orthostatic issues. Many suffer with bloating, pain, constipation, and diarrhea. Adrenaline is a huge factor and has an impact on digestion. One cannot rest and digest if in adrenaline mode as the body is in survival modefocused on other organs and self-preservation. A body in survival does not digest efficiently. The stomach is the second brain. After the brain, most nerve bundles and neurons are located in thegut and can work independent of the brain. Diseases may show in the gut as the first path of violation before presenting as a nervous system disorder. We all know the feeling of butterflies or stomach discomfort. Stomach discomfort can also present in times of acute or chronic stress. The brain gut connection is so strong we may feel nausea, may vomit, and may be unable to eat. 70% of the immune system is located in the gut. The entire GI system is filled with good and bad bacteria. Healthy and unhealthy bacteria. The gut being the second brain and is a good indicator of how well someone is feeling. If GI health is poor,the patient generally feels overall unwell. Adrenaline creates a hostile zone in the gut: bloating, IBS, pain, low serotonin can affect ones mood and cause sadness, pain, malaise depression, fatigue. Allergies food intolerance, mast cell are aresult of immune dysfunction. Leaky gut gets rid of good bacteria and when ones digestion is off they can experience hair loss, weight changes (up or down) acne, dry skin, dry mouth, eczema, and rosacea. 20% of POTS patients have delayed motility and 20% having rapid motility. Eat the best, leave the rest: Small meals, simple proteins Chicken/fish, Hydrate with water, avoid artificial chemicals and sweeteners, Probiotics for balancing and gut healing, supplement with oregano, dameon, and turmeric can also help. These changes take time to see a result. Starting with small doses are always best practice to see how one does when adding a new supplement. Sugar is public enemy number one: It is in a lot of food so check nutrition labels. There are limited amounts in natural foods. Sugaris a gut irritant/ laxative. Known irritants are dairy, wheat, gluten, refined carbs, and white foods. Sugar gives a jolt of energy and then drops it. Sugar can increase fatigue, mood, anxiety, panic attacks, depression, migraines, IBS. Sugar spikes insulin then drops it Adrenaline spikes insulin the drops glucose Gut disorders cause inconsistent glucose absorption The three above compete so it s best to reduce sugar intake found in natural foods such as veggies,complex carbs (brown rice for example) proteins, and good oils. Mast Cell and Food Allergen start with correcting the gut and see if there is an improvement. We touched on swallowing issues. Swallowing us a vagal response. Some people may be unable to swallow pills, the feel like they are being strangled, lost voice, raspy, dryness, GERD, reflux. Too muchadrenaline. Gargling, salt rinse, tongue brushing, singing and chanting can also help. Treating POTS is essential as things in the body will start to balance. Hydrate with 64 ounces of water per day. Keep it low sugar and try to avoid artificial colors and artificial sweeteners. Moving the body helps the gut and is essential in POTS care. 5-15 minutes per day of wellness can show your brain and body that it can be an adrenaline free zone. Additional supplements to consider: Magnesium Stearate or Glycinate Oregano Pills [place] Oils Prebiotics and Probiotics COQ10 MG Daily Thank you for joining us and we look forward to seeing you in a future SMA. Sincerely, Dr. Huddleston and Kelli Beal Let us start with discussing POTS physiology. When you stand two water bottles of blood drop. To compensate, the body speeds up the heart in an effort to get blood to your brain so you don't faint. This is adrenaline and while it may feel terrible it is an autonomic protective mechanism. The brain controls the Autonomic Nervous System. The Sympathetic Nervous System is responsible for stress and survival. The Parasympathetic Nervous System is responsible for growth and repair. Finding the balance between the Sympathetic and Parasympathetic for those of us living with POTS presents a challenge. The Sympathetic cardiac nerves increase and force of contraction, whereas the Vagus nerve (parasympathetic) decreases heart rate. The Baroreceptor sends signals to the brain. The brain is like a smartphone and creates memories from the experiences as is the case with adrenaline. The brain is tied into speeding up the heartrate and adrenaline. You may notice adrenaline surges coming at around the same time each day. That is the memory-make adrenaline and then do it again and again on a loop. A pattern of symptoms form such as pain, racing heart rate, headaches, and tingling. After this heightened form of adrenaline takes place, the polyvagal symptoms may take over: the heart rate and blood pressure drop, you may feel cold, feel the sensation of rubber legs, defecate, urinate etc. This explains the cycle of Fight, Flight, and Freeze. Once your body gives way to adrenaline, you may become listless and exhausted feeling the rag doll effect. This can last for hour to days. An effective way to lower heart rate is called the COLD EFFECT DIVE REFLEX: If you hold your breathand put your face in cold water, your heart will immediately slow down by 25%. Using a cold washcloth in a plastic sandwich bag can also help lower heart rate. Tongue on roof of soft palate slows heart rate: To perform, curl tongue back to touch the soft palate in the mouth. Your mouth may remain open a tad, make an R sound. Doing this numerous times in a day will reduce adrenaline symptoms such as lowering HR, decreased sweating, and decrease brain fog as well as jitteriness. Another effectiveexercise is performing the Valsalva maneuver to prevent palpitations. To do this 1. Pinch your nose, 2. Close your mouth, 3. Then try to breathe out. To explain at a more scientific and evolutionary level would be to talk about the Mammalian Diving Reflex: A Marine mammals' physiological response when stimulated by cold water submersion is the shunting blood from their peripheral tissues to their body's core. The increased blood volume in the core then stimulates a vagal response which produces profound bradycardia. This shunting of blood fromnon-essential organs and the lowered oxygen demand allows the diving mammal to remain underwater for a prolonged period. We also discussed nose breathing as it is much more effective than mouth breathing when it comes tocalming heart rate. Three breaths in, hold for 8, three breaths out. Over time with proper care, the heart rate is controlled by exercise and medication, but remember it is possible to still feel POTS symptoms with normal vitals. The idea is through wellness modalities to create new memories and files. By realizing this is occurring, being patient with oneself and mi ndfulness, relaxation, and decluttering rework the circuits for more positive experiences The brain does get involved with POTS. The baroreceptor does have localization sites into the brainstem. This is why we can see in head injury cause POTS. Also the brain getting activate in adrenergic state of flight or fight or freeze can cause more than just typical body or heart rate symptoms, but also the brain symptoms of jittery, cannot think, confused at times, restless, headaches, dizzy, jerky limbs, tight muscles, pain, ,less hope, and less creative. The brain as we said is in downstairs mode of the lower center operating and more of the amygdala . This can become more automatic and the default response. The brain is a circuit and remembers this is what it is to do. Recognizing this as occurring is pepe and next steps is to show your brain is okay to learn new ways of circuits is pepe. New ways are via wellness, exercise, medication at times, and even health psychology. We have health psychology here to show nervous system new ways to be again, relaxation tools. Biofeedback, and tips for living with a disease. We can offer this health psychology by sending a [employer] message to us . POTS CHAT BRAIN MEMORIES--December Thank you so much for joining us on Sunday for the SMA. Let us start with discussing POTS physiology. When you stand two water bottles of blood drop. To compensate, the body speeds up the heart in an effort to get blood to your brain so you don t faint. This is adrenaline and while it may feel terrible it is an autonomic protective mechanism. While manypeople think most POTS patients faint, in reality only about 15% of those with POTS do. POTS symptoms include Tachycardia, lightheadness, brain fog, body pain, GI issues, numbness and tingling limbs,and these are just to name a few we all know the symptoms can run the gamut. Dizziness is also a chief complaint and can be described in a multitude of ways. Some of us feel like we re rocking on a boat, many have trouble driving, and functioning through the day is also a major challenge when one has vestibular issues. We always start with a discussion of POTS physiology. When you stand two water bottles of blood drop. To compensate, the body speeds up the heart in an effort to get blood to your brain so you don t faint. This is adrenaline and while it may feel terrible it is an autonomic protective mechanism. The brain controls the Autonomic Nervous System. The Sympathetic Nervous System is responsible for stress and survival and is why you feel the symptoms of adrenaline which include but are not limitedto: racing heart rate, chest pain, sweating, neck pain, fainting, near fainting, nausea diarrhea, bloating, frequent urination, skin tingling, ears ringing, heightened senses, inability to sleep, cannot think, brain fog, jerking limbs, muscle tightness and the list goes on... The Parasympathetic Nervous System is responsible for growth and repair, rest and digest. Some of you may notice a drop inheart rate after a sympathetic surge. The polyvagal symptoms may take over: the heart rate and blood pressure drop, you may feel cold, feel the sensation of rubber legs, defecate, urinate etc. This explains the cycle of Fight, Flight, and Freeze. Once your body gives way to adrenaline, you may become listless and exhausted feeling the rag doll effect. Thank you again. Your attendance of the Shared Medical Appointment and involvement in the POTS community is pepe to your success and those who come behind you. Please look at POTS body movement techniques at [employer] orthostatic exercises - [employer], and please follow our Instagram page [email or web address]. Please take advantage of all of these tools available to you. We are committed to your journey toward restored wellness. We look forward to seeing you again in future SMA s. To schedule the ZOOM POTS SMA please call during Sunday-Sunday 9 am - 4 pm , Please be patient with the phone line as we are in midst of reopening during the pandemic phase We are honored and glad to have you part of the SMA for POTS Welcome to ZOOM POTS SMA (SHARED MEDICAL APPOINTMENTS) We have learned at the [facility] and especially in my work and our department that POTS thatthere is so much to learn to live well with this condition. So much of the emphasis needs to be on life tips of education, body awareness, community, exercise , daily life tips, and the psychology of living well with POTS. 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 We have even published the benefit of the SMA for POTS. We used to do the SMA in person, but during the pandemic we are starting to do them via ZOOM. For years I have been wanting to do the SMA as a virtual format like ZOOM. The ZOOM SMA is a safe space to be supported. We do request to allow your face to be seen and courtesy language. The session is about 90 minutes long. We will have a topic, questions, and answers. The sessions are not recorded. POTS Manual: Read the POTS manual online. This will help you understand your POTS diagnosis, work with your medical team, and includes detailed instructions and tips for improved daily living with POTS. [email or web address] YouTube: [email or web address] Instagram: POTS FLAQUITO Orthostatic Your body has a network of blood vessels made up of arteries, veins, and capillaries. The heart pumps blood into the arteries, which carry the blood throughout the body. Blood pressure is the pressure or force of blood pushing against the schuster of the arteries. Blood pressure is written as two numbers; for example, 120 over 80 millimeters of mercury. The first number is the systolic pressure. This is the pressure in the arteries when the heart beats and fills them with blood. The second number is the diastolic pressure. This is the pressure in the arteries when the heart rests between beats. Orthostatic hypotension is a condition in which your blood pressure falls significantly when you stand up quickly. (Hypotension is low blood pressure.) What are the symptoms of orthostatic The main symptom of may even faint. Other symptoms include: Blurred vision Nausea Disorientation or confusion Feeling weak Fatigue Falling Chest pain Neck pain Cognitive disorder Challenge in breathing Base of neck pain and head pressure Breathing challenge when standing up Legs become weak/ walking challenge/rubbery legs Rebound or surge in blood pressure spikes especially when laying down These symptoms usually clear up when you sit or lie down for a few minutes. THIS NOTE IS FOR AT FIRST FOR MY DOCUMENTATION TO PROVIDE CARE, HELP INSURANCE COMPANY AND COLLEAGUES TO HAVE NEUROLOGICAL CONTEXT OF MY , AND FOR MY PERSONAL RECORDING TO FACILITATE FUTURE CARE BY HAVING A WRITTEN DOCUMENT MEMORY OF OUR CONSULT TOGETHER . THANK YOU FOR UNDERSTANDING THIS OFFICE NOTE IS A PHYSICIAN BASED DOCUMENT FOR COMMUNICATION AND CARE. ACTIVE PROBLEM LIST Covid-19 Personal History of Covid-19 Intractable Tension-Type Headache Cerebrovascular Disease Facial Paresthesia Pots (Postural Orthostatic Tachycardia Syndrome) Long Covid Cognitive Communication Deficit Current Outpatient Medications on File Prior to Visit Medication Sig metoprolol succinate ER (TOPROL XL) 25 mg 24 hr tablet Take 1 tablet by mouth once daily. Take 25 mg in the morning and 12.5 mg in the evening. sodium chloride 1 gram tab TAKE 1 TABLET BY MOUTH 3 TIMES A DAY *TAKE WITH FOOD* hydrOXYzine HCl (ATARAX) 10 mg tablet Take 1 tablet by mouth three times daily as needed. ivabradine (CORLANOR) 5 mg tablet Take 2.5 mg by mouth twice daily. gabapentin (NEURONTIN) 300 mg capsule 1 capsule 2x/day gabapentin (NEURONTIN) 100 mg capsule Take 2 capsules by mouth twice daily. (taken with 300mg capsule) tiZANidine (ZANAFLEX) 4 mg tablet Take 1 tablet by mouth daily at bedtime. ondansetron orally disintegrating (ZOFRAN ODT) 4 mg disintegrating tablet Take 4 mg by mouth once daily as needed. diazePAM (VALIUM) 2 mg tablet Take 1 mg by mouth once daily. ibuprofen (MOTRIN) 200 mg tablet Take 200 mg by mouth as needed. acetaminophen (TYLENOL) 500 mg tablet Take 500 mg by mouth as needed. Current Facility-Administered Medications on File Prior to Visit Medication perflutren lipid microspheres 1.3 mL in NaCl (PF) 0.9% 10 mL injection (DEFINITY) sodium chloride 0.9 % (flush) 10 mL (BD POSIFLUSH) FAMILY HISTORY Problem Relation Age of Onset Hypertension Father Hyperlipidemia Father Hyperlipidemia Maternal Grandmother other (afib) Maternal Grandmother Heart Attack Paternal Grandmother PAST SURGICAL HISTORY Procedure Laterality Date NONE 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 Drink 64 ounces of water throughout the day. If need more salt in water some may add a pinch of water to the water or even Himalayan salt if can tolerate the taste. 2. Electrolyte beverages be mindful of sugar content, dyes, and artificial sugars since can cause bloating, diarrhea, brain fog, headaches, and allergies. Low sugar to no sugar and dyes drinks with of course no caffeine is a goal. 3. Salt loading if causes bloating just do in diet with foods. 4. Diet: people notice sugar, dairy, and gluten/ wheat bother so a diet with less to reduce of the sugar, dairy, to processed carbs help best. With diet proteins (chicken, fish )and good fats (olive oil , avocado oil ) with complex carbs are ideal (veggies, berries, quinoa, brown rice) 5. Sleep : bed same time and up same time; Avoid naps. Eventually though rough will get on this schedule even though feels a challenge 6. Wellness: find something in the day to keep mind body spirit going that helps keep the mind and show the mind that is not in always aware of adrenaline state (journaling, knitting, puzzles, prayer, meditation, breathing, etc . Show the mind and body it can be free of adrenaline fight or flight state 7. Move the body to keep the blood flowing and muscle strong. Can start even with flaquito orthostatic chair exercise or sandro chi /qi qong 8. Probiotics help gut health since most have IBS issues (any brand to get started is a good start) Breathing work: Inspiration heart rate increases with (sympathetic response) based on blood going to lungs and need compensate to get blood shuffle and with expiration heart rate slows down (parasympathetic) . Exercise of amplifying of parasympathetic is to breath response. Take slow breathe inspiration over 3 seconds and then breathes over 5 seconds out with expiration (do exercise via nostril breathing) Alvin Huddleston D.O ELECTRONICALLY SIGNED August 16, 2021 Adult Neurology/ Board Certified Director of Autonomic Center Department of Neuro Muscular of the Neurological Stickney Candy Attendant for Neurology Clerkships Clinical Baby Counselor of Neurology Physician Advisor for the [facility] of Neurology Speech Correction Assistant of Mistreatment and Neglect [facility] School Faculty Appointment [facility] Medicine Faculty Appointment [facility] Professor [facility] [employer] [facility] of [facility] / TAX ID: [id number] [address]/ [id number] [place], [place] [address] / consult requested for an opinion regarding the evaluation and treatment of POTS My final impression and recommendations will be communicated back to the requesting physician by way of the shared medical record or letter via US [email or web address]/ Welcome There are videos /playlist/podcast to viewed and helped for exercises and wellness for POTS and Orthostatics Instructions: . HELP WITH MEDICAL PROVIDERS IN LOCAL CARE NOT PART OF THE [facility] To help be successful in care locally with the limits of virtual, my chart , phone calls, and limited in person appointments. This tips sheet helps patients and medical providers. This tips are for guidance and general themes. We do not want them to be customized into individualmy chart message questioning and repeated messages Dear Colleague, This is a tip sheet collaboration to help along in our shared work with the orthostatic to give context and approaches we do with orthostatic patients in our care in the Autonomic Department and you can also bridge into your practice. Thank you for the collaborative work Doctor Guidance for Autonomic Dysfunction SIMPLE FYI ON ORTHOSTATIC MEDICATIONS 1. Florinef: Dosing 0.1 mg at once or twice per day. May need to watch for hypokalemia 2. Midodrine: 2.5 mg daily to 20 mg tid. Have to watch for rebound HTN. 3. Pyridostigmine (60 -240 mg) has helped autonomic symptoms via cholinergic stimulations without raising the BP. 4. POTS patients to control adrenergic symptoms may need beta blockers, calcium channel blockers, and ivabradine. MEDICATIONS OF ORTHOSTATICS, REVIEW OF MEDICATIONS AND SUPPLEMENTS AND BP CHECKS 1. If your clinical discretion is prompted you can hold the medication for the day or longer, but remind the patient and the support person to be careful worsening of syncope and falls. 2. Can if resuming medications can go back and 02/15 to dose 3. SBP > 170 or DBP > 95 over consistent readings is a concern 4. For BP readings we do recommend the patient or support person to check the BP and pulse about three times sitting in the am before coming to the appointment 5. REVIEW ALL MEDICATIONS AND SUPPLEMENTS IN EACH VIIST THAT CAN BE CONTRIBUTORY TO ORTHOSTATICS. SUCH MEDICATIONS ARE ANTI HYPERTENSIVES, ANTI CHOLINERGICS, ANTI PSYCHOTICS, AND MANY BLADDER TREATING MEDICATIONS. SOME POTS PATIENTS WILL NEED BETA BLOCKERS AND CALCIUM CHANNEL BLOCKERS TO CONTROL THE ADRENERGIC VITALS AND SYMPTOMS. ROUTINE LABS: We recommend to use your general medical discretion as any patient to check labs. 1. On Florinef to check potassium 2. Some of the POTS patients are more prone to hypokalemia and may be worthwhile and no interval oftime needed to check potassium. 3. B12 is associated with orthostatic disorder 4. If SICCA is a concern an BENNIE, anti tipton, and anti rho may be helpful 5. If Mast Cell Disease comes up to check an tryptase (concern is > 20 and will need referral toAllergy/Immunology) 6. Thyroid Function Test 7. CBC and CMP annually with any medications of concern EXERCISE: AND REHAB CARE Exercise does help orthostatic patients greatly. Though it seems to be miserable and not feasible for this condition, it does help control symptoms and often improve them. 1. POTS patients bene?t with cardiac rehab. There is repeated data of the cardiac rehab model for POTS to improve and reduce symptoms. At the Clinic the cardiac rehab is a one-time visit and the patient is given the template to do independently. Locally, the cardiac rehab division may help in routine visits. Also utilize free information. Internet search and print the pots manual on the [facility] website POTS Manual: Read the POTS manual online. This will help you understand your POTS diagnosis, work with your medical team, and includes detailed instructions and tips for improved daily living with POTS. [email or web address] POTS [facility] CARDIAC REHAB PROGRAM for patients. 2. Seated chair yoga and if patient can tolerate, sandro chi for balance helps. Also this work helps with inspiration and expiration to help heart rate variability. 3. Seated recumbent bike and even a foot peddle bike at home depending on the level of disability of the patient can help and should be encouraged. 4. Counting steps program with graduating accumulation of steps in the day should be encouraged. A walking program even if the patient just takes for example 50 steps every hour during wakefulness should be encouraged and over time evolve to more steps per interval. 5. PT locally for more muscle strength and maintain gait/balance. 6. Some due to neck pain and the coat changer fixer of neck muscle orthostatic hypo perfusion will developdizziness and vertigo. Vestibular rehab for cervical vertigo may be needed. 7. Gait dysfunction can be for many reasons the underlying neurological diagnosis and inclusive of the impact of deconditioning. There is an orthostatic gait disorder of the elderly where syncope hasto be considered in sudden unexplained falls. SALT LOADIN. The loading of salt can be 3-5 grams per day if it is permitted. 2. Some will do salt tablets that are purchased over the counter. Take with food since can cause nausea. 3. Encourage patients to add salt to nutrient rich food or consume salty foods. (Avoid default foods such as potato chips that are calorie rich but nutrient poor.) 4. Veggie, Chicken, and Beef Broths are good ways for hydration and salt. 5. Pickles and olives are salty snacks. 6. Salt and water loading the patient may note more bloating and increased BMI. More abdominal and pelvic girth can occur. HYDRATION: This matters greatly for orthostatic patients 1. Maintaining 64 -84 ounces per day if allowed with other health issues per day is pepe. 2. Challenges are older persons who will not want to drink as much to avoid night time and frequenturination. We encourage early am hydration. 3. Water helps and is free. Tap water is ?ne. 4. Patients can purchase electrolyte solutions. Again be mindful of cost and if also cause GI symptoms of nausea, bloating, and diarrhea (see under GI health step 7.) 5. Watch if a concern for hyponatremia by ua and bmp. LEG SWELLING: Can occur from the blood pooling from the orthostatic issues. The legs may even turn blue, red, and pale. Some may have even livedo reticularis. 1. Treating the orthostatic disorder will help. 2. Compression stockings knee high, thigh high, and even panty hose can help. 3. Having the patient elevate the legs up above the heart repeatedly during the day will help. 4. If possible, repeatedly do the legs on the wall yoga maneuver. 5. Often legs swell from inactivity. Orthostatic exercise can help greatly. SLEEP: Sleep can be a challenge due to aspects of typical chronic health issues of inconsistent sleep schedule, inactivity, medication effects and even mental health aspects of chronic disease (worriment, rumination of the future, uncertainty). 1. Having the patient maintain same sleep schedule with bed at the same time and awakening the sametime daily is pepe. Try to avoid naps. Keeping the room in the ideal temperature control helps. Keeptechnology out of the room such as tablets, cellphones, TV, and laptops with the screen light that can maintain wakefulness. If patient cannot sleep, have them get up out of bed for 30 minutes or so to read and then go back to bed. 2. Melatonin 3-10 mg to take 2 hours before sleep can help 3. We try to avoid typical sedatives if possible 4. We avoid TCA medications for sleep since can potentiate orthostatic issues 5. Remeron/mirtzatipine 7.5-45 mg at HS can be used for sleep 6. Beta blockers at HS is used for POTS patients to control the adrenergic symptoms 7. Many orthostatic patients have nocturnal symptoms especially due to lack of body movement and reduced circulation of the blood. POTS patients due to the adrenergic response can have more supine chest pain, racing heart rate, restless sleep, nightmares, sweating, and awakenings. The pure autonomic failure, neurogenic orthostatic hypotension, autonomic neuropathy, Parkinson s, and multisystem atrophy patients due to the baroreceptor dysregulation response to help can still have supine HTN events (see below). PAIN: Many patients may have pain from orthostatics. 1. Some have small ?cooper neuropathy that is associated that can cause pain. Typical medications except TCA (due to promoting orthostatic issues) may help nerve pain. 2. Some of the POTS patients have Ehler-Danlos Syndrome that has joint disorder and neuropathy associated. 3. Inactivity causes joint stiffness. 4. Headaches and neck pain from hypoperfusion (there is an orthostatic headache and coat changer fixer syndrome.) Treating the orthostatic syndrome may help, but some may still have pain. 5. Be mindful of medication overuse such as in headaches of medicament overuse and also opioate usedisorder that can amplify pain. Compression Stockings and Garments: They do help, but are a struggle. Encourage patients to try them and explore various modalities if can with medical and non- medical. Again, this can be costly for the patient. Sports brand and non-medical compression stockings and garments may give relief and thepatient may have to shop around to ?nd the right gramajo point for them. 1. Compression stockings to the knee 20-30 mm Hg 2. above the knee thigh high 20-30 mm HG 3. Compression stockings to hip level /panty hose help since most of the blood is in the pelvic area 4. Abdominal binder can be helpful 5. Arm compression sleeve 6. Spanx 7. Encourage the patient to explore and do various combinations of the above. Also to use the gear in different aspects of the day. Most times in hot weather is not permitted outside. Also most cannot wear to bed. GI HEALTH: Many autonomic patients have associated GI complaints of bloating, re?ux, diarrhea, constipation and IBS. 1. Some actually will have de?debra GI motility of gastric and/or colonic motility by gastric empty, colonic motility studies, or capsule endoscopy studies. POTS patients in publications may have rapidmotility due to the adrenergic response. 2. Reviewing all medications for impact or irruption of the GI system is always good. 3. Treating for GERD is helpful. 4. Treating with typical routine care of medication and diet for diarrhea and constipation is helpful. Having the patient follow food triggers may help. Some may bene?t with FODMAP diet for IBS. 5. Maintaining hydration that helps orthostatic self-care helps GI health also. 6. For some the excessive salt loading may contribute to nausea and diarrhea, should be deciphered,and have the patient cut back to see if this is a factor. 7. Some of the purchased electrolyte drinks may cause GI symptoms. Have the patient cut back or change to another form of care to see if this is a factor for their GI symptoms. 8. Some patients need to see GI for evaluation of ulcers, celiac, and consequence of refractory issues of dysmotility. 9. Supplements of magnesium oxide 400 mg bid or tid can help constipation. BLADDER DYSFUNCTION: This can be a common complaint for autonomic patients. 1. POTS patients due to the adrenergic issues have often urgency and frequency symptoms. 2. Due to inactivity many patients will develop some pelvic ?oor dysfunction and thus bene?t with pelvic ?oor physical therapy to strengthen these muscles. 3. Frequent UTIs and Kidney Infections should prompt a Urology consult for bladder atonia and potential urodynamics studies. 4. All routine medications and supplements need to be reviewed that can bother the bladder function. 5. Sometimes the symptoms are challenging to decipher objectively and will need a Urology consult to address. SICCA SYMPTOMS: Often the patient may have dry eyes and mouth symptoms without having diagnostic evidence of Sjogren s Syndrome (lip biopsy.) 1. Eye exam by an top cager to evaluate diagnostically for dry eyes and if needed over the counter or prescription treatments. 2. Dry mouth can be common from routine medications and need to be reviewed as potential culprits. 3. With dry mouth the patient should be referred to the dentist for best care and plan. 4. The patient should be careful with dry mouth not to over use some sugar free treatments for dry mouth since can promote diarrhea and IBS. 5. Dameon in food and supplements may help some dry mouth. 6. If need pilocarpine tablets may be needed. MENTAL HEALTH: Most patients with this disease due to the impact and struggle of daily life of the change of self, burden, uncertainty, and grief will go through various emotions. 1. We encourage patients and their support person to pursue counseling for skills to live with chronic disease. 2. In depression and anxiety medications like SSRI may help with less impact on orthostatic. 3. Medications like Duloetine and Venfaaxline are not as ideal for POTS but the other orthostatic conditions. Actually these medications may help mental health and higher dose raise the BP. The POTS patients due to these drugs mechanism of action may aggravate the adrenergic symptoms. 4. Periodically check for depression, anxiety, and for even conceding SI, SA, HI, [place]. IV FLUIDS: We generally do not support the chronic use of IV ?uids for orthostatic and POTS patients. We also do not condone the use of a port for most patients. Most patients with routine orthostatic care will not need this treatment. 4. MY CHART, we encourage patients to use this portal for medical issues only and to send a brief 1-2 sentences issue. Large messages will encourage a needed virtual appointment perhaps. 5. The patient can always ?nd their of?ce visit in the MY CHART portal. 6. Care Everywhere if EPIC is shared will have our of?ce notes. 7. We encourage all our patients to have a local family medicine team to work with since we cannot handle medical issues by MY CHART, phone call, and are not able to immediately see a patient. 8. The POTS patients can request also the POTS ER letter if needed to have with them for ER and Urgent Care needs. 9. Some Orthostatic and POTS patients may need either or both a Neurologist and a Manager Store locally to be part of their care. DISABILITY: 1. Many of the patients may not be able to work. Due to the diverse scope of the work we do at the Clinic we sincerely cannot attest or keep up with the paperwork for disability. We can at times write of support for disability, but not be the main medical provider of the paperwork. POTS Manual: Read the POTS manual online. This will help you understand your POTS diagnosis, work with your medical team, and includes detailed instructions and tips for improved daily living with POTS. [email or web address] ORTHOSTATIC TIPS Orthostatic Dysfunction Daily Living Tips Living with a disorder of the autonomic nervous system is life altering. Making lifestyle changes in order to thrive in their day to day and long-term is essential. Orthostatic disorder occurs when the upright positioning of the body causes variable blood pressurechanges that induce symptoms. Your body has a network of blood vessels made up of arteries, veins, and capillaries. The heart pumps blood into the arteries, which carry the blood throughout the body. Blood pressure is the pressure or force of blood pushing against the schuster of the arteries. Blood pressure is written as two numbers Systolic (top number) and Diastolic (bottom number) for example a normal blood pressure would be read as 120/80. The first number, systolic pressure is the pressure in the arteries when the heart beats and fills them with blood. The second number, diastolic pressure is the pressure in the arteries when the heart rests between beats. Orthostatic hypotension is a condition in which your blood pressure falls significantly when you stand up quickly. The main symptoms of orthostatic disorder is dizziness and feeling lightheaded upon standing. In some cases, people with orthostatic hypotension may even faint. Other symptoms include: Blurred vision Nausea Disorientation or confusion Feeling weak Fatigue Falling Chest pain Neck pain Cognitive disorder Difficulty breathing Base of neck pain and head pressure Weak, rubbery legs, difficulty walking Rebound or surge in blood pressure spikes especially when laying down These symptoms usually clear up when you sit or lie down for a few minutes. BEST PRACTICE DAILY TIPS Please make all postural changes from lying to sitting to standing slowly Drink 2-2.5 liters of fluid per day. On a bad day or with worsening of symptoms, drink 500 cc of water quickly. This will result in an increase in blood pressure within five minutes of drinking the water with the effect lasting up to one hour. In the case of Congestive Heart Failure and Hypertension or any other medical condition with salt restrictions, please follow clinician recommendations regarding fluid and sodium intake. Avoid large meals which can cause low blood pressure during digestion. Eat smaller frequent meals throughout the day. Meals rich in carbohydrates can create more orthostatic symptoms. Avoid alcohol as it can worsen low blood pressure upon standing. Limit caffeine intake as it may increase urine production and reduce blood volume. Compression stockings while somewhat uncomfortable do help those with disorders of the autonomic nervous system. High-waisted leggings can also help as do abdominal binders which are very helpful. Purchase a blood pressure cuff to monitor blood pressure and pulse. Take your vitals per guidance of your provider. Also, when feeling unwell check your vitals and keep a log. This is so providers may review in the future. HYDRATION There are many commercially produced hydration and sports drinks available. If you choose, you can make your own beverage using the recipe from the World Health Organization. This can be cost effective and is free of preservatives. Maintaining 64 -84 ounces per day as long as it is not contraindicated due to other health issues is pepe. Drinking earlier in the day avoids as much to avoid frequent and nighttime urination. Water helps and is free. The recipe is from the World Health Organization (WHO) and is as follows: Filtered (tap or bottled) 1 liter of drinking/tap Mix with teaspoon of salt, six (6) teaspoons of sugar or sugar substitute Let cool This will give you five cups ESSENTIAL PHYSICAL ACTIVITY Part of the daily care involves moving the body. Exercise does help orthostatic patients live better lives. Though it seems challenging, it helps control symptoms and often improve them. Those with this disorder can become physically deconditioned quickly as a result of long periods ofactivity. . The type of exercise and level of difficulty as well as time spent vary from person to person and should be determined by your clinician. Even starting for five to ten minutes per day andworking your way up will make an impact. Pepe is consistency and frequency. Have a support person or manuel present when beginning for safety and guidance. Start slow and reevaluate in a week and then a month. Here are some general tips that are helpful if done daily. Perform lower extremity exercises to improve strength of the leg muscles. This will help prevent blood from pooling in the legs when standing and walking. Preferred exercises are walking, squatting, foot peddle bike, and use of a stationary bicycle. If you are able to walk when counting steps, use your phone, a [employer], or life logging device to count steps. Gauge your daily steps and over time increase them. Example: 3000 steps per day. Do 300 per hour to 3000 total per day. Seated chair yoga and sandro chi for balance helps. This helps with inspiration and expiration to improve heart rate variability. These options can be found online also. Seated recumbent bike and even a foot peddle bike at home depending on the level of disability of the patient can help be beneficial. A Counting steps program with graduating accumulation of steps in the day should be started. A walking program even if one takes 50 steps every hour during wakefulness should be done and over time evolve to more steps per interval. If indicated, physical therapy locally for more muscle strength and to maintain gait/balance. SOCIAL MEDIA Social Media can be a great resource and a way to connect with people who share your diagnosis. However, it is important to be mindful of the content posted. Everyone has a different journey. Be sureyour information comes from a reliable source and do not take medical advice from social media always contact your clinicians to review relevant information specific to your condition and follow yourown medical plan of care. SALT LOADING: The loading of salt can be 3-5 grams per day if it is permitted. Some will do salt tablets which can be purchased over the counter. Take with food since can cause nausea. Encourage patients to add salt to nutrient rich food or consume salty foods. (Avoid default foods such as potato chips that are calorie rich but nutrient poor.) Veggie, Chicken, and Beef Broths are good ways for hydration and salt. Pickles and olives are salty snacks. Salt and water loading the patient may note more bloating and increased BMI. More abdominal and pelvic girth can occur. Watch for any elevated blood pressure readings. LEG SWELLING: Can occur from the blood pooling from the orthostatic issues. The legs may even turn blue, red, and pale. Some may have even livedo reticularis. Treating the orthostatic disorder will help. Compression stockings knee high, thigh high, and even panty hose can help. Pressure grade 20-30 or higher can be tried to see what helps and is comfortable. Wear them for a few hours in the day, while walking, and mild activity. They are not recommended to wear during sleep. Elevate legs up above the heart repeatedly during the day to reduce swelling. If possible, repeatedly do the legs on the wall yoga maneuver. This can be done while lying in bed. SLEEP: Sleep can be a challenge due to aspects of typical chronic health issues of inconsistent sleep schedule, inactivity, medication effects and even mental health aspects of chronic disease (worriment, rumination of the future, uncertainty). Keep the room the ideal temperature for your comfort. Keep technology out of the room such as tablets, cellphones, TV, and laptops as they can maintain wakefulness. If you cannot sleep, get out of bed for 30 minutes or so to read and then go back to bed. Melatonin 3-10 mg to take 2 hours before sleep can help. Review in your next routine medical appointment if this is an option for you. We try to avoid typical sedatives if possible as they can potentiate orthostatic issues. Many orthostatic patients have nocturnal symptoms especially due to lack of body movement and reduced circulation of the blood. POTS patients due to the adrenergic response can have more supine chestpain, racing heart rate, restless sleep, nightmares, sweating, and awakenings. Go to bed and wake up at the same time daily including weekends. Do not nap more than 30 minutes during the day. PAIN: Many patients may have pain from orthostatic issues Inactivity causes joint stiffness. Exercise and gentle range of movement of the joints will often relive stiffness. Headaches and neck pain from hypo perfusion (an orthostatic headache and coat changer fixer syndrome lay down and goes away.) Treating the orthostatic syndrome may help, but some may still have pain. Review with clinician in follow-up. Think about what makes pain better and what makes it worse and describe during appointment. COMPRESSION STOCKINGS AND GARMENTS: They do help, but can be a struggle. Help from your clinician as well as determining personal preference and effectiveness are pepe. Please note, it may be difficult to wear compression gear in the heat and make sure not to wear to bed. Below are a few general guidelines. Compression stockings to the knee 20-30 mm Hg above the knee thigh high 20-30 mm HG Compression stockings to hip level /panty hose help since most of the blood is in the pelvic area Abdominal binder can be helpful Arm compression sleeve Spanx High waisted leggings GI HEALTH: Many?autonomic?patients have associated GI complaints of bloating, reflux, diarrhea, constipation and IBS. If you notice any food that trigger discomfort, be mindful. Maintaining hydration helps orthostatic self-care and GI health also. Some of the purchased electrolyte drinks may cause GI symptoms. Find which one works for you or make your own hydration drink following the WHO recipe found earlier in this document. Supplements of magnesium oxide 400 mg twice or three times per day can help with constipation. Please check with your provider before starting any new supplements. BLADDER?DYSFUNCTION: This can be a common complaint for?autonomic?patients. Due to inactivity many patients will develop some pelvic floor?dysfunction?and thus benefit from pelvic floor exercises throughout the day to strengthen these muscles. Sometimes the symptoms are challenging to decipher objectively and will need a Urology consult to address. Dry Mouth and Dry Eyes: Often the patient may have dry eyes and mouth symptoms. Eye exam by an top cager to evaluate diagnostically for dry eyes and if needed over the counter or prescription treatments. Dry mouth can be common from routine medications. With dry mouth please see your dentist for best plan of oral hygiene and care. MENTAL HEALTH: Most patients with this disease from the impact and struggle of daily life will go through various emotions. We encourage patients and their support person to pursue counseling for skills to live with chronicdisease. In depression and anxiety medications like SSRI s and SNRI s may help with less impact on orthostatic. These medications may be prescribed by medical providers in follow-up visits if indicated. IV FLUIDS: We generally do not support the chronic use of IV fluids for orthostatic patients. [facility] Miscellaneous Notes* Telephone Encounter - Juan Matthews Ma - 08/16/2021 1:44 PM EDT Faxed medical record release forms (for Dr. So, Dr. Darby, Dr. Witt, and Dr. Guzman) to [facility] Medical Record Release Department. Confirmation received. Juan Matthews Ma documented in this encounterC[facility] Miscellaneous Notes* Telephone Encounter - Esther Pandya RN - 08/15/2021 7:18 AM EDT Request for medical records rec'd. Faxed to HIM for processing. Fax confirmation rec'd. DOS: All medical records Esther Pandya RN [facility]07-02-2022 Miscellaneous Notes* Telephone Encounter - Monalisa Coronado Pss - 08/13/2021 10:49 AM EDT Just an FYI: Release of Medical Records request form [employer] faxed to MARTHA. Scanned into chart as well. documented in this [facility]06-30-2022 Instructions* Patient Instructions* Queta Ward PSYD - 08/11/2021 4:43 PM EDT Next virtual session scheduled for 08/26/21 at 9am. documented in this [facility]06-30-2022 History of Present illness Narrative* Queta Ward PSYD - 08/11/2021 4:00 PM EDT Ms. Aparicio did not show for today's virtual follow-up with neuromuscular health psychology. Next session scheduled for 08/26/21. [facility] Miscellaneous Notes* Telephone Encounter - Keira Calderon - 08/08/2021 11:03 AM EDT Request for entire medical record of patient was received from [employer] for [facility]. Forwarded request to Medical Records by fax [phone] on this date. Jillian Self documented in this [facility]06-15-2022 History of Present illness Narrative* Wilma Mujica RD - 07/27/2021 9:35 AM EDT [facility] Nutrition Therapy: Virtual Consult Re-assessment This visit was performed virtually due to the COVID-19 pandemic as an effort to protect patients and minimize exposure. Consent from patient received to conduct visit virtually. This Team Access Model visit is a virtual encounter. It required patient-provider interaction for the medical decision making as documented below. PROGRESS: Nutrition Intervention (date of last encounter 05/31/21): - Follow Healthy Plate Method at meal times to assist with balanced meals in controlled portions 1/2 plate non-starchy vegetables, 1/4 plate lean protein, 1/4 plate complex carbohydrate - Continue to have a goal of consuming a lean source of protein (20-30 grams) at each meal. - Have 3+ cups of vegetables/day and 2 fruit servings/day. - Non-starchy vegetables are unlimited! - Limit starch intake to 1/2-1 cup/meal for desired weight loss. - Continue to limit eating out to no more than once per week. - Consider tracking daily food intake on an yolanda for 2 weeks to determine average calorie intakes. Goal should be [id number] calories daily for desired weight loss. - Aim to drink at least 64 oz of water/day - Aim to increase exercise as MD approved. CHANGES IN TREATMENT: Patient met goal(s): Partially Actions to implement interventions: See assessment Food Recall: Breakfast - Sami yogurt with granola and fruit OR cold cereal with almond Snack - Sami yogurt OR smart pop popcorn Lunch - fast food OR various proteins, starches and non-starchy vegetables Snack - same as above mentioned snacks OR low carb ice cream Dinner - Fast Food take out OR home made pizza with flat out bread OR tacos with ground turkey Snack - none Beverages - decaf coffee, water throughout the day, Sugar free Gatorade OR Powerade Exercise- limited at this time due to symptoms with POTS- was told recumbent bike was fine but doing so limited amounts - Ongoing increased stress and negatively impacting food choices by report. States using food as anoutlet. Eating fast food more frequently. - Has an appointment with Psychology for support with life stressors but not until October. On a waiting list to try to get established sooner. - Not consistently tracking/journaling. CLINICAL IMPRESSIONS: good ANTHROPOMETRICS Height per patient: 5'4 Weight per patient: 186 lbs Most recent height and weight per [facility] Height: Last 1 Encounter Ht Readings: Date: Ht: 07/27/2021 162.6 cm (5' 4 ) Weight: Last 1 Encounter Wt Readings: Date: Wt: 05/31/2021 84.4 kg (186 lb) Body mass index is 31.93 kg/m . Resting Metabolic Rate: 1560 Malnutrition Screening Significant unintentional weight loss? No Eating less than 75% of usual intake for more than 2 weeks? No Potential Signs of Inflammation: no identifiable sources Nutritional status: RECOMMENDED MALNUTRITION DIAGNOSIS: NO MALNUTRITION IDENTIFIED Educational materials provided: None this visit Patient presents for follow-up nutrition visit to discuss weight management/desire to lose weight. Since last visit, pt with weight stability. Reports an approximate 4 lbs weight loss following last appointment, and then due to increased life stressors, has been obtaining more fast food for meals wh ich then caused a weight regain. Diet recall supports increase in frequency in eating out; however,diet recall also reveals healthy meals and snack choices when eating at home and pre-planning mealsmore consistently, where desired weight loss likely if fast food eating eliminated or greatly reduced. Fluids meeting recommendations in type and amount, with water as primary beverage. Pt is incorporating activity as tolerated at this time with POTS but would likely benefit from increasing frequency as tolerated to assist in achieving goals. Scheduled with Psychology in October and on a waiting list for a sooner appointment. See all interventions/recommendations discussed during visit this day. Nutrition Diagnosis: Behavioral-Environmental: Food and nutrition related knowledge deficit, related to, lack of prior exposure to information , as evidenced by client has no prior knowledge of need for food and nutrition - related information. Nutrition Intervention: Modify type and amount of food consumed for meals and snacks: - Keep up the great work with incorporating healthier meals and snacks at home and pre-plan all weekly meals and snacks so more likely to eat at home. - Consider pre-planning easy to prepare meals as well such as salads, soups and sandwiches, etc. - Consider limiting eating out to no more than once weekly and make healthier menu choices when dinning out (see previous handout sent on healthy dinning out). - Consider including activities that help to decrease stress that are non-food related such as exercise as tolerated, attending virtual restorationism sessions or support groups, reading, listening to music or journaling. Nutrition Monitoring & Evaluation: Weight loss of 1-2 pounds per week and adherence to above recommendations. Criteria: patient update and weight check Need for Follow up: One month MNT Billing Type: Re-assess/15 min 3 units Signed by: Wilma Mujica RD, LD, CDCES documented in this encounterC[facility] Evaluation note* Encounter Date Diagnosis Assessment Notes Treatment Notes Treatment Clinical Notes Jul, Acute cystitis with hematuria (I CD-10 - N30.01) [facility] Other 06-07-2022 Miscellaneous Notes* Telephone Encounter - Haleigh Parks RN - 07/19/2021 11:18 AM EDT This is FYI. Haleigh Parks RN, BSN, BA documented in this encounterC[facility]06-[facility]-2022 Instructions* Patient Instructions* Queta Ward PSYD - 07/14/2021 4:16 PM EDT Next virtual follow-up scheduled for 08/11/21 at 4pm. documented in this encounterC[facility]06[facility] History of Present illness Narrative* Queta Ward PSYD - 07/14/2021 3:00 PM EDT [facility] Clinical Health Psychology Follow-Up Virtual Yolanda Aparicio [phone] Time spent in session: 60 minutes Parties Present: Patient Diagnoses: PRIMARY: PTSD Other: Generalized Anxiety Disorder Adjustment Disorder w/ depressed mood POTS Post-acute 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) Due to the federal emergency declaration and the need for ongoing mental health services, the following visit was completed virtually and informed consent was obtained orally to reduce the risk of Covid-19 exposure. Oral consent to services related to virtual visits was obtained after information was sent via [employer] during this patient initial evaluation with the provider. Discussed privacy riskfor virtual sessions. 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 States she has had fleetingsuicidal thoughts, though she has no intent to act on them. She states she feels good support from Dr. Ward. We discussed starting an antidepressant which she has tried in the past and says she didn't do well with it. She asked about trying an antihistamine, which I think is reasonable... She feels frustrated with her daily symptoms (tachycardia, dizziness)... doing well with cardiac rehab....I think it is reasonable to try low-dose metoprolol short acting, as she feels like this was the best tolerated medication for her in the past. - 06/03 pt reported to Mora Guzman discomfort re: lowered BP after restarting metoprolol - 07/13 pt asked Mora Guzman if should increase metoprolol after noticing some benefit; Dr. Huddleston covering, requested updated orthostatic vitals, asked if pt interested in functional med referral, recommended SMAs focused on gut health. TODAY'S INTERVENTIONS: Continuing vestibular therapy. Ended CBT-I therapy, pt reported some benefit but still needs to meet w/ sleep med to improve quality of sleep. Pt reported that her court hearing was pushed back for the third time, has had much financial stress. Additionally, battling w/ SU for college accommodations and financial issues. Processed how this additional stress is triggering for her. Assessed SI; denied active ideation/plan though has continued to have occasional fleeting SI, has been applying behavioral strategies discussed at prior session; note denied SI on PHQ-9 today. Utilized most of today's session to begin trauma processing. Provided psychoeducation on physiological impact of trauma, how this intersects w/ POTS adrenaline and worsens stress response. Pt shared several recent examples where this was relevant and caused heightened reactivity, such as interactions w/ family. Processed isolation component of PTSD, especially impactful to her when family not understanding. Reviewed communication strategies for discussing her chronic illnesses and PTSD; howeverpt does find this to be overwhelming and feels family still does not understand. Considered spaces for seeking support; reasons why many people cannot understand her experiences. 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 Began consideration of exposure therapy interventions to address anxiety; validated pt's desire to follow guidance for wearing mask as pandemiccontinues, however be mindful of catastrophizing tendencies beyond standard guidance; discussed exposure hierarchy, start w/ less anxiety-provoking situations such as leaving her apt for short periods of time in non-crowded settings such as going for a walk, continuing to spend time w/ family, willwork up to better tolerating going to more public settings such as store. Pt agreeable to this, discussed need for balance in context of feeling overwhelmed by current situation and mental health status. ASSESSMENT: PHQ-9 Score: 9 (07/13/2021 4:20 PM) (0-4) minimal depression, (5-9) mild depression, (10-14) moderate depression, (15-19) moderately severe depression, (20-27) severe depression ROSE MARIE-7 Total Score: 9 (07/13/2021 4:22 PM) (0-4) minimal anxiety, (5-9) mild anxiety, (10-14) moderate anxiety, (15-21) severe anxiety MENTAL STATUS: Ms. Aparicio was seen virtually; well-groomed, cooperative. Mood was mildly depressed/anxious w/ affect that was mood congruent. Speech was normal in rate, volume and articulation and clear, coherent,and relevant. Thoughts were logical and relevant without delusional thinking or hallucinations. Somatic preoccupation was mild. Denied SI. Judgment and insight were good. Attention span and concentration appeared normal. She was oriented to time, place and person. Memory appeared good. MEDICATIONS: Per medical record: Current Outpatient Medications Medication Sig sodium chloride 1 gram tab TAKE 1 TABLET BY MOUTH 3 TIMES A DAY *TAKE WITH FOOD* metoprolol tartrate, short acting, (LOPRESSOR) 25 mg tablet Take 0.5 tablets by mouth twice daily. hydrOXYzine HCl (ATARAX) 10 mg tablet Take 1 tablet by mouth three times daily as needed. ivabradine (CORLANOR) 5 mg tablet Take 2.5 mg by mouth twice daily. gabapentin (NEURONTIN) 300 mg capsule 1 capsule 2x/day gabapentin (NEURONTIN) 100 mg capsule Take 2 capsules by mouth twice daily. (taken with 300mg capsule) tiZANidine (ZANAFLEX) 4 mg tablet Take 1 tablet by mouth daily at bedtime. ondansetron orally disintegrating (ZOFRAN ODT) 4 mg disintegrating tablet Take 4 mg by mouth once daily as needed. diazePAM (VALIUM) 2 mg tablet Take 1 mg by mouth once daily. ibuprofen (MOTRIN) 200 mg tablet Take 200 mg by mouth as needed. acetaminophen (TYLENOL) 500 mg tablet Take 500 mg by mouth as needed. Current Facility-Administered Medications Medication Dose Route Frequency perflutren lipid microspheres 1.3 mL in NaCl (PF) 0.9% 10 mL injection (DEFINITY) INTRAVENOUS DIRECTED PRN sodium chloride 0.9 % (flush) 10 mL (BD POSIFLUSH) 10 mL INTRAVENOUS DIRECTED PRN PROGRESS TO DATE/ASSESSMENT: Impression per update (04/18/21): Ms. Aparicio is a 25 year old, single, White female who was referred by Jaskaran Guzman CNP. She presents with POTS and PASC. She meets criteria for PTSD, ROSE MARIE and Adjustment Disorder w/ depressed mood (depression has developed within context of chronic medical conditions and subsequent functional impact). Current sx significantly interfere with her functioning and quality of life. The relationship between her physical and emotional sx is likely bidirectional in nature, in that her medical conditions and mood reflect a hyperactive [employer]CR[employer] FIN[employer]ER. 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 Ms. Aparicio lacks support and feels significantly isolated, which is contributing to her presentation. Will incorporate behavioral activation and CBT to address depression, as well as CBT for health anxiety. Will include POTS education and related management strategies. Will pursue trauma processing to reduce PTSD sx (and related [employer]CR[employer]E [employer] FINISHER hyperarousal), which will likely improve her interactions w/ medical providers. Her laureano and motivation/independence are positive values that will be incorporated into tx. Duration of tx is expected bandar moderate, depending on progress towards goals. PLAN: Homework: behavioral strategies for reactivity; exposure to address anxiety Next: continue behavioral strategies and exposure work Follow Up: virtual 08/11/21 4pm Queta Ward PsyD Clinical Psychologist [facility] Miscellaneous Notes* Telephone Encounter - Evon Stevens RN - 06/27/2021 9:11 AM EDT Last Refill:03/28/2021 Last OV: 06/21/2021 F/U OV: 07/05/2021 Appropriate for refill. Routed to [place] for review. Evon Stevens RN documented in this encounterC[facility]22 Miscellaneous Notes* Telephone Encounter - Aliya Pavon MD - 06/24/2021 6:26 PM EDT Spoke with patient re: Paperwork. She has one that is signed by Dr. Nichols. Aliya Pavon MD documented in this encounterC[facility] History of Present illness Narrative* Wilfredo Nichols MD - 06/24/2021 4:18 PM EDT I have filled paperwork [id number] for the [place] of Workers' Comp, and fax them to the Law Offices if Cas Darby. JORDAN, who is representing Mrs Yolanda MojicaJoby Markus. Documents have been scanned. Wilfredo Nichols M.D., M.S. Staff Physician, Pulmonary and Critical Care Medicine Director, [facility] Respiratory [facility] documented in this encounterC[facility] History of Present illness Narrative* Alvin Huddleston, DO - 06/21/2021 5:00 PM EDT Yolanda Apariico is a 25 year old female. SHARED MEDICAL APPOINTMENTS: Patient is at home I spent a total of 60 minutes on the date of the service which included [id number] patient care, completing clinical documentation, communicating results to the patient/family/caregiver, and care coordination (not separately reported). Thank you so much for joining us on Sunday for the [facility]. Also we have a POTS Patients Support Liaison program with Kelli Beal. She is our POTS Liaison who is working with us and she has POTS herself. She has POTS . 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 This is a phone call at least. Patients who do this find this so healing, genuine, and transformation of an experience after being not listened to and dismissed for so long. Please send a short email at This care is not for scheduling appointments or medical provider visits. FYI : If by chance you email Kelli and not heard back in 3 business days please send a 1 -2 sentence my chart message to me. There are times cyber incident handler blocks that may block an email to enter the system. Thank you This session we discussed implicit bias and micro aggression of how impact health . Even one's own internal experience can lead to these concepts. Thoughts and feelings are implicit if we are unawareof them or mistaken about their nature. We have a bias when, rather than being neutral, we have a preference for (or aversion to) a person or group of people. Thus, we use the term implicit bias to describe when we have attitudes towards people or associate stereotypes with them without our conscious knowledge. Micro aggression a statement, action, or incident regarded as an instance of indirect, subtle, or unintentional discrimination against members of a marginalized group with indirect, subtle, or unintentional discrimination against members of a marginalized group With regards to my chart and the direction we have had to move forward: Based on the volume, frequency, messages in format of texting/or snapchat types/ and repeated mychart messages we receive from patients in a month we can no long address issues of questions, medication changes,disease management in my chart forum effectively for patient care. If there is an urgent issue seek urgent care or medical level ER care. If needed review or see your PCP For POTS patients recommend to use the POTS manual, flaquito orthostatic exercise video on [employer] for educational, utilize your chronic self care tools, attend more share medical appointments are recommended POTS Manual: Read the POTS manual online. This will help you understand your POTS diagnosis, work with your medical team, and includes detailed instructions and tips for improved daily living with POTS. [email or web address] Reminder that with health conditions that most medications and other care treatments including rehabilitation /exercise programs need 3-4 months to work . With chronic health conditions may need evenlonger to work if one has been ill and suffered. Supplements that can be calming and helpful Supplements for helping neural excitable Adde each one every few weeks /take in am with food Co Enzyme Q10 100 mg daily for 4 weeks then go 200 mg daily Alpha lipoic acid 600 mg daily NAD /nicotinamide adenine dinucleotide (NAD) 10 mg daily MAG Oxide 400 mg daily (watch for laxative effect) B12 1000 ucg daily Any brand is fine POTS subtypes are of interest since there could be different ways that POTS behaves biologically and can lead to treatments, better understanding of self, and research. There are 4 types. 1. Neuropathic POTS with neuro exam showing small fiber neuropathy with also associated positive low blood pressure, skin nerve biopsy +, qsart +, and associated syndrome of EDS/sjogren's and celiac 2. Hyperadrenergic POTS has high heart and may spike BP. Can see in tilt table. Can see in head injury, neck injury, and long covid. Do not respond to salt and compression stockings or florinef or midodrine 3. Hypovolemic is tricky to diagnosis to know if is a response to the other 2 mentioned before and or own cause. Cannot concentrate urine. 24 hour urine sodium . 4. Most do not fall into one group. Best to review in follow up appointments to review. One may start in one type and change as the body alters and evolves. Once could start as neuropathic and over time become more high adrenaline. Ultimately treating POTS is pepe in all aspects is pepe and this willhelp and not be so obsessed of if I know my cause of type and all will be better. POTS CHAT April 20, 2020 Thank you so much for joining us on Sunday for the [facility]. In discussing POTS physiology, when you stand, two water bottles of blood drop. To compensate, the body speeds up the heart in an effort to get blood to your brain so you don t faint. This is adrenaline and while it may feel terrible it is an autonomic protection mechanism. While many people think most POTS patients faint, in reality only about 15% of those with POTS do. POTS symptoms include Tachycardia, lightheadness, brain fog, body pain, GI issues, numbness and tingling limbs, and these arejust to name a few we all know the symptoms can run the gamut. Dizziness is also a chief complaint and can be described in a multitude of ways. Some of us feel like we re rocking on a boat, many have trouble driving, and functioning through the day is also a major challenge when one has vestibular issues. In referring back on Dr. Huddleston s slides, POTS is classified into sub-types mainly Neuropathic POTS, Hyper adrenergic POTS, and Hypovolemic POTS. The rest are a hybrid and cycle through phases. The causes of POTS may make sub-typing more challenging. For example Gino Danlos Syndrome may lead to one subtype and an autoimmune condition may lead to another. There are also many other physiological/biological causes as to why POTS occurs. Post COVID manifestations and the research being conducted on why will perhaps give more insights. Some POTS causes are neuropathy, viral illness, Mast Cell Disorders, Sjogren s Syndrome, EDS, Chronic aftermath of disease, Autoimmune, Celiac s Disease, post , Oneil s Thyroiditis, Trauma, Life Events, and sometimes the cause is unknown. NEUROPATHIC POTS Abnormal Qsart and skin nerve biopsy that shows small fiber neuropathy Abnormal sensory exam on neural exam, Corneal Confocal Microscope Low BP/ Systolic BP of 90-80 or less when not on medications During the tilt table test, the patient will drop their BP May see Sjogren s and autoimmune components HYPOVOLEMIC POTS Hypovolemic POTS is perhaps the most tricky and rare form of POTS More issues of low sodium or low aldosterone Sodium fluid wasting in lab and blood work There is a theory of some Renal/Endocrine/Neural injury HYPER-ADRENERGIC POTS High heart rate with some blood pressure spikes Classic POTS symptoms Causes are the same but this sub-type is seen more in trauma, aftermath of injury, Covid-19, Chiari, Concussion, head and spine injury High Catecholamines result in blood work Tilt table there is evidence of a spike in BP These patients often do worse on Midodrine, Florinef, or Northera. Salt loading may also spike BP THE FOURTH GROUP IS THE MAJORITY Most POTS patients are not in one group Most self-care and POTS tips will help all POTS in itself will remain a diagnosis and care will continue even if root cause is found Let us start with discussing POTS physiology. When you stand two water bottles of blood drop. To compensate, the body speeds up the heart in an effort to get blood to your brain so you don't faint. This is adrenaline and while it may feel terrible it is an autonomic protective mechanism. The brain controls the Autonomic Nervous System. The Sympathetic Nervous System is responsible for stress and survival. The Parasympathetic Nervous System is responsible for growth and repair. Finding the balance between the Sympathetic and Parasympathetic for those of us living with POTS presents a challenge. The Sympathetic cardiac nerves increase and force of contraction, whereas the Vagus nerve (parasympathetic) decreases heart rate. The Baroreceptor sends signals to the brain. The brain is like a smartphone and creates memories from the experiences as is the case with adrenaline. The brain is tied into speeding up the heartrate and adrenaline. You may notice adrenaline surges coming at around the same time each day. That is the memory-make adrenaline and then do it again and again on a loop. A pattern of symptoms form such as pain, racing heart rate, headaches, and tingling. After this heightened form of adrenaline takes place, the polyvagal symptoms may take over: the heart rate and blood pressure drop, you may feel cold, feel the sensation of rubber legs, defecate, urinate etc. This explains the cycle of Fight, Flight, and Freeze. Once your body gives way to adrenaline, you may become listless and exhausted feeling the rag doll effect. This can last for hour to days. An effective way to lower heart rate is called the COLD EFFECT DIVE REFLEX: If you hold your breathand put your face in cold water, your heart will immediately slow down by 25%. Using a cold washcloth in a plastic sandwich bag can also help lower heart rate. Tongue on roof of soft palate slows heart rate: To perform, curl tongue back to touch the soft palate in the mouth. Your mouth may remain open a tad, make an R sound. Doing this numerous times in a day will reduce adrenaline symptoms such as lowering HR, decreased sweating, and decrease brain fog as well as jitteriness. Another effectiveexercise is performing the Valsalva maneuver to prevent palpitations. To do this 1. Pinch your nose, 2. Close your mouth, 3. Then try to breathe out. To explain at a more scientific and evolutionary level would be to talk about the Mammalian Diving Reflex: A Marine mammals' physiological response when stimulated by cold water submersion is the shunting blood from their peripheral tissues to their body's core. The increased blood volume in the core then stimulates a vagal response which produces profound bradycardia. This shunting of blood fromnon-essential organs and the lowered oxygen demand allows the diving mammal to remain underwater for a prolonged period. We also discussed nose breathing as it is much more effective than mouth breathing when it comes tocalming heart rate. Three breaths in, hold for 8, three breaths out. Over time with proper care, the heart rate is controlled by exercise and medication, but remember it is possible to still feel POTS symptoms with normal vitals. The idea is through wellness modalities to create new memories and files. By realizing this is occurring, being patient with oneself and mi ndfulness, relaxation, and decluttering rework the circuits for more positive experiences The brain does get involved with POTS. The baroreceptor does have localization sites into the brainstem. This is why we can see in head injury cause POTS. Also the brain getting activate in adrenergic state of flight or fight or freeze can cause more than just typical body or heart rate symptoms, but also the brain symptoms of jittery, cannot think, confused at times, restless, headaches, dizzy, jerky limbs, tight muscles, pain, ,less hope, and less creative. The brain as we said is in downstairs mode of the lower center operating and more of the amygdala . This can become more automatic and the default response. The brain is a circuit and remembers this is what it is to do. Recognizing this as occurring is pepe and next steps is to show your brain is okay to learn new ways of circuits is pepe. New ways are via wellness, exercise, medication at times, and even health psychology. We have health psychology here to show nervous system new ways to be again, relaxation tools. Biofeedback, and tips for living with a disease. We can offer this health psychology by sending a [employer] message to us . POTS CHAT BRAIN MEMORIES--December Thank you so much for joining us on Sunday for the [facility]. Let us start with discussing POTS physiology. When you stand two water bottles of blood drop. To compensate, the body speeds up the heart in an effort to get blood to your brain so you don t faint. This is adrenaline and while it may feel terrible it is an autonomic protective mechanism. While manypeople think most POTS patients faint, in reality only about 15% of those with POTS do. POTS symptoms include Tachycardia, lightheadness, brain fog, body pain, GI issues, numbness and tingling limbs,and these are just to name a few we all know the symptoms can run the gamut. Dizziness is also a chief complaint and can be described in a multitude of ways. Some of us feel like we re rocking on a boat, many have trouble driving, and functioning through the day is also a major challenge when one has vestibular issues. We always start with a discussion of POTS physiology. When you stand two water bottles of blood drop. To compensate, the body speeds up the heart in an effort to get blood to your brain so you don t faint. This is adrenaline and while it may feel terrible it is an autonomic protective mechanism. The brain controls the Autonomic Nervous System. The Sympathetic Nervous System is responsible for stress and survival and is why you feel the symptoms of adrenaline which include but are not limitedto: racing heart rate, chest pain, sweating, neck pain, fainting, near fainting, nausea diarrhea, bloating, frequent urination, skin tingling, ears ringing, heightened senses, inability to sleep, cannot think, brain fog, jerking limbs, muscle tightness and the list goes on... The Parasympathetic Nervous System is responsible for growth and repair, rest and digest. Some of you may notice a drop inheart rate after a sympathetic surge. The polyvagal symptoms may take over: the heart rate and blood pressure drop, you may feel cold, feel the sensation of rubber legs, defecate, urinate etc. This explains the cycle of Fight, Flight, and Freeze. Once your body gives way to adrenaline, you may become listless and exhausted feeling the rag doll effect. Thank you again. Your attendance of the Shared Medical Appointment and involvement in the POTS community is pepe to your success and those who come behind you. Please look at POTS body movement techniques at [employer] orthostatic exercises - [employer], and please follow our Instagram page [email or web address]. Please take advantage of all of these tools available to you. We are committed to your journey toward restored wellness. We look forward to seeing you again in future SMA s. To schedule the ZOOM POTS SMA please call during Sunday-Sunday 9 am - 4 pm , Please be patient with the phone line as we are in midst of reopening during the pandemic phase We are honored and glad to have you part of the SMA for POTS Welcome to ZOOM POTS SMA (SHARED MEDICAL APPOINTMENTS) We have learned at the [facility] and especially in my work and our department that POTS thatthere is so much to learn to live well with this condition. So much of the emphasis needs to be on life tips of education, body awareness, community, exercise , daily life tips, and the psychology of living well with POTS. 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 We have even published the benefit of the SMA for POTS. We used to do the SMA in person, but during the pandemic we are starting to do them via ZOOM. For years I have been wanting to do the SMA as a virtual format like ZOOM. The ZOOM SMA is a safe space to be supported. We do request to allow your face to be seen and courtesy language. The session is about 90 minutes long. We will have a topic, questions, and answers. The sessions are not recorded. POTS Manual: Read the POTS manual online. This will help you understand your POTS diagnosis, work with your medical team, and includes detailed instructions and tips for improved daily living with POTS. [email or web address] YouTube: [email or web address] orthostatic exercise Instagram: POTS FLAQUITO Orthostatic Your body has a network of blood vessels made up of arteries, veins, and capillaries. The heart pumps blood into the arteries, which carry the blood throughout the body. Blood pressure is the pressure or force of blood pushing against the schuster of the arteries. Blood pressure is written as two numbers; for example, 120 over 80 millimeters of mercury. The first number is the systolic pressure. This is the pressure in the arteries when the heart beats and fills them with blood. The second number is the diastolic pressure. This is the pressure in the arteries when the heart rests between beats. Orthostatic hypotension is a condition in which your blood pressure falls significantly when you stand up quickly. (Hypotension is low blood pressure.) What are the symptoms of orthostatic The main symptom of may even faint. Other symptoms include: Blurred vision Nausea Disorientation or confusion Feeling weak Fatigue Falling Chest pain Neck pain Cognitive disorder Challenge in breathing Base of neck pain and head pressure Breathing challenge when standing up Legs become weak/ walking challenge/rubbery legs Rebound or surge in blood pressure spikes especially when laying down These symptoms usually clear up when you sit or lie down for a few minutes. THIS NOTE IS FOR AT FIRST FOR MY DOCUMENTATION TO PROVIDE CARE, HELP INSURANCE COMPANY AND COLLEAGUES TO HAVE NEUROLOGICAL CONTEXT OF MY , AND FOR MY PERSONAL RECORDING TO FACILITATE FUTURE CARE BY HAVING A WRITTEN DOCUMENT MEMORY OF OUR CONSULT TOGETHER . THANK YOU FOR UNDERSTANDING THIS OFFICE NOTE IS A PHYSICIAN BASED DOCUMENT FOR COMMUNICATION AND CARE. ACTIVE PROBLEM LIST Covid-19 Personal History of Covid-19 Intractable Tension-Type Headache Cerebrovascular Disease Facial Paresthesia Pots (Postural Orthostatic Tachycardia Syndrome) Long Covid Cognitive Communication Deficit Current Outpatient Medications on File Prior to Visit Medication Sig metoprolol tartrate, short acting, (LOPRESSOR) 25 mg tablet Take 0.5 tablets by mouth twice daily. hydrOXYzine HCl (ATARAX) 10 mg tablet Take 1 tablet by mouth three times daily as needed. sodium chloride 1 gram tab TALE 1 TABLET BY MOUTH THREE TIMES DAILY. TAKE WITH FOOD. ivabradine (CORLANOR) 5 mg tablet Take 2.5 mg by mouth twice daily. gabapentin (NEURONTIN) 300 mg capsule 1 capsule 2x/day gabapentin (NEURONTIN) 100 mg capsule Take 2 capsules by mouth twice daily. (taken with 300mg capsule) tiZANidine (ZANAFLEX) 4 mg tablet Take 1 tablet by mouth daily at bedtime. ondansetron orally disintegrating (ZOFRAN ODT) 4 mg disintegrating tablet Take 4 mg by mouth once daily as needed. diazePAM (VALIUM) 2 mg tablet Take 1 mg by mouth once daily. ibuprofen (MOTRIN) 200 mg tablet Take 200 mg by mouth as needed. acetaminophen (TYLENOL) 500 mg tablet Take 500 mg by mouth as needed. Current Facility-Administered Medications on File Prior to Visit Medication perflutren lipid microspheres 1.3 mL in NaCl (PF) 0.9% 10 mL injection (DEFINITY) sodium chloride 0.9 % (flush) 10 mL (BD POSIFLUSH) FAMILY HISTORY Problem Relation Age of Onset Hypertension Father Hyperlipidemia Father Hyperlipidemia Maternal Grandmother other (afib) Maternal Grandmother Heart Attack Paternal Grandmother PAST SURGICAL HISTORY Procedure Laterality Date NONE 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 Exercise of amplifying of parasympathetic is to breath response. Take slow breathe inspiration over 3 seconds and then breathes over 5 seconds out with expiration (do exercise via nostril breathing) Alvin Huddleston D.O ELECTRONICALLY SIGNED June 21, 2021 Adult Neurology/ Board Certified Director of Autonomic Center Department of Neuro Muscular of the Neurological [place] Candy Attendant for Neurology Clerkships Clinical Baby Counselor of Neurology Physician Advisor for the [facility] [employer] Speech Correction Assistant of Mistreatment and Neglect [facility] School Faculty Appointment [facility] Faculty Appointment [facility] Clinica Professor [facility] [employer] [facility] / TAX ID: [id number] [address]/ [id number] [place], [place] [address] / consult requested for an opinion regarding the evaluation and treatment of POTS My final impression and recommendations will be communicated back to the requesting physician by way of the shared medical record or letter via US [id number]/ Welcome There are videos /playlist/podcast to viewed and helped for exercises and wellness for POTS and Orthostatics Instructions: . HELP WITH MEDICAL PROVIDERS IN LOCAL CARE NOT PART OF THE [facility] To help be successful in care locally with the limits of virtual, my chart , phone calls, and limited in person appointments. This tips sheet helps patients and medical providers. This tips are for guidance and general themes. We do not want them to be customized into individualmy chart message questioning and repeated messages Dear Colleague, This is a tip sheet collaboration to help along in our shared work with the orthostatic to give context and approaches we do with orthostatic patients in our care in the Autonomic Department and you can also bridge into your practice. Thank you for the collaborative work Doctor Guidance for Autonomic Dysfunction SIMPLE FYI ON ORTHOSTATIC MEDICATIONS 1. Florinef: Dosing 0.1 mg at once or twice per day. May need to watch for hypokalemia 2. Midodrine: 2.5 mg daily to 20 mg tid. Have to watch for rebound HTN. 3. Pyridostigmine (60 -240 mg) has helped autonomic symptoms via cholinergic stimulations without raising the BP. 4. POTS patients to control adrenergic symptoms may need beta blockers, calcium channel blockers, and ivabradine. MEDICATIONS OF ORTHOSTATICS, REVIEW OF MEDICATIONS AND SUPPLEMENTS AND BP CHECKS 1. If your clinical discretion is prompted you can hold the medication for the day or longer, but remind the patient and the support person to be careful worsening of syncope and falls. 2. Can if resuming medications can go back and 02/15 to / dose 3. SBP > 170 or DBP > 95 over consistent readings is a concern 4. For BP readings we do recommend the patient or support person to check the BP and pulse about three times sitting in the am before coming to the appointment 5. REVIEW ALL MEDICATIONS AND SUPPLEMENTS IN EACH VIIST THAT CAN BE CONTRIBUTORY TO ORTHOSTATICS. SUCH MEDICATIONS ARE ANTI HYPERTENSIVES, ANTI CHOLINERGICS, ANTI PSYCHOTICS, AND MANY BLADDER TREATING MEDICATIONS. SOME POTS PATIENTS WILL NEED BETA BLOCKERS AND CALCIUM CHANNEL BLOCKERS TO CONTROL THE ADRENERGIC VITALS AND SYMPTOMS. ROUTINE LABS: We recommend to use your general medical discretion as any patient to check labs. 1. On Florinef to check potassium 2. Some of the POTS patients are more prone to hypokalemia and may be worthwhile and no interval oftime needed to check potassium. 3. B12 is associated with orthostatic disorder 4. If SICCA is a concern an BENNIE, anti tipton, and anti rho may be helpful 5. If Mast Cell Disease comes up to check an tryptase (concern is > 20 and will need referral toAllergy/Immunology) 6. Thyroid Function Test 7. CBC and CMP annually with any medications of concern EXERCISE: AND REHAB CARE Exercise does help orthostatic patients greatly. Though it seems to be miserable and not feasible for this condition, it does help control symptoms and often improve them. 1. POTS patients bene?t with cardiac rehab. There is repeated data of the cardiac rehab model for POTS to improve and reduce symptoms. At the Clinic the cardiac rehab is a one-time visit and the patient is given the template to do independently. Locally, the cardiac rehab division may help in routine visits. Also utilize free information. Internet search and print the pots manual on the [facility] website POTS Manual: Read the POTS manual online. This will help you understand your POTS diagnosis, work with your medical team, and includes detailed instructions and tips for improved daily living with POTS. [email or web address] POTS [facility] CARDIAC REHAB PROGRAM for patients. 2. Seated chair yoga and if patient can tolerate, sandro chi for balance helps. Also this work helps with inspiration and expiration to help heart rate variability. 3. Seated recumbent bike and even a foot peddle bike at home depending on the level of disability of the patient can help and should be encouraged. 4. Counting steps program with graduating accumulation of steps in the day should be encouraged. A walking program even if the patient just takes for example 50 steps every hour during wakefulness should be encouraged and over time evolve to more steps per interval. 5. PT locally for more muscle strength and maintain gait/balance. 6. Some due to neck pain and the coat changer fixer of neck muscle orthostatic hypo perfusion will developdizziness and vertigo. Vestibular rehab for cervical vertigo may be needed. 7. Gait dysfunction can be for many reasons the underlying neurological diagnosis and inclusive of the impact of deconditioning. There is an orthostatic gait disorder of the elderly where syncope hasto be considered in sudden unexplained falls. SALT LOADIN. The loading of salt can be 3-5 grams per day if it is permitted. 2. Some will do salt tablets that are purchased over the counter. Take with food since can cause nausea. 3. Encourage patients to add salt to nutrient rich food or consume salty foods. (Avoid default foods such as potato chips that are calorie rich but nutrient poor.) 4. Veggie, Chicken, and Beef Broths are good ways for hydration and salt. 5. Pickles and olives are salty snacks. 6. Salt and water loading the patient may note more bloating and increased BMI. More abdominal and pelvic girth can occur. HYDRATION: This matters greatly for orthostatic patients 1. Maintaining 64 -84 ounces per day if allowed with other health issues per day is pepe. 2. Challenges are older persons who will not want to drink as much to avoid night time and frequenturination. We encourage early am hydration. 3. Water helps and is free. Tap water is ?ne. 4. Patients can purchase electrolyte solutions. Again be mindful of cost and if also cause GI symptoms of nausea, bloating, and diarrhea (see under GI health step 7.) 5. Watch if a concern for hyponatremia by ua and bmp. LEG SWELLING: Can occur from the blood pooling from the orthostatic issues. The legs may even turn blue, red, and pale. Some may have even livedo reticularis. 1. Treating the orthostatic disorder will help. 2. Compression stockings knee high, thigh high, and even panty hose can help. 3. Having the patient elevate the legs up above the heart repeatedly during the day will help. 4. If possible, repeatedly do the legs on the wall yoga maneuver. 5. Often legs swell from inactivity. Orthostatic exercise can help greatly. SLEEP: Sleep can be a challenge due to aspects of typical chronic health issues of inconsistent sleep schedule, inactivity, medication effects and even mental health aspects of chronic disease (worriment, rumination of the future, uncertainty). 1. Having the patient maintain same sleep schedule with bed at the same time and awakening the sametime daily is pepe. Try to avoid naps. Keeping the room in the ideal temperature control helps. Keeptechnology out of the room such as tablets, cellphones, TV, and laptops with the screen light that can maintain wakefulness. If patient cannot sleep, have them get up out of bed for 30 minutes or so to read and then go back to bed. 2. Melatonin 3-10 mg to take 2 hours before sleep can help 3. We try to avoid typical sedatives if possible 4. We avoid TCA medications for sleep since can potentiate orthostatic issues 5. Remeron/mirtzatipine 7.5-45 mg at HS can be used for sleep 6. Beta blockers at HS is used for POTS patients to control the adrenergic symptoms 7. Many orthostatic patients have nocturnal symptoms especially due to lack of body movement and reduced circulation of the blood. POTS patients due to the adrenergic response can have more supine chest pain, racing heart rate, restless sleep, nightmares, sweating, and awakenings. The pure autonomic failure, neurogenic orthostatic hypotension, autonomic neuropathy, Parkinson s, and multisystem atrophy patients due to the baroreceptor dysregulation response to help can still have supine HTN events (see below). PAIN: Many patients may have pain from orthostatics. 1. Some have small ?cooper neuropathy that is associated that can cause pain. Typical medications except TCA (due to promoting orthostatic issues) may help nerve pain. 2. Some of the POTS patients have Ehler-Danlos Syndrome that has joint disorder and neuropathy associated. 3. Inactivity causes joint stiffness. 4. Headaches and neck pain from hypoperfusion (there is an orthostatic headache and coat changer fixer syndrome.) Treating the orthostatic syndrome may help, but some may still have pain. 5. Be mindful of medication overuse such as in headaches of medicament overuse and also opioate usedisorder that can amplify pain. Compression Stockings and Garments: They do help, but are a struggle. Encourage patients to try them and explore various modalities if can with medical and non- medical. Again, this can be costly for the patient. Sports brand and non-medical compression stockings and garments may give relief and thepatient may have to shop around to ?nd the right gramajo point for them. 1. Compression stockings to the knee 20-30 mm Hg 2. above the knee thigh high 20-30 mm HG 3. Compression stockings to hip level /panty hose help since most of the blood is in the pelvic area 4. Abdominal binder can be helpful 5. Arm compression sleeve 6. Spanx 7. Encourage the patient to explore and do various combinations of the above. Also to use the gear in different aspects of the day. Most times in hot weather is not permitted outside. Also most cannot wear to bed. GI HEALTH: Many autonomic patients have associated GI complaints of bloating, re?ux, diarrhea, constipation and IBS. 1. Some actually will have de?debra GI motility of gastric and/or colonic motility by gastric empty, colonic motility studies, or capsule endoscopy studies. POTS patients in publications may have rapidmotility due to the adrenergic response. 2. Reviewing all medications for impact or irruption of the GI system is always good. 3. Treating for GERD is helpful. 4. Treating with typical routine care of medication and diet for diarrhea and constipation is helpful. Having the patient follow food triggers may help. Some may bene?t with FODMAP diet for IBS. 5. Maintaining hydration that helps orthostatic self-care helps GI health also. 6. For some the excessive salt loading may contribute to nausea and diarrhea, should be deciphered,and have the patient cut back to see if this is a factor. 7. Some of the purchased electrolyte drinks may cause GI symptoms. Have the patient cut back or change to another form of care to see if this is a factor for their GI symptoms. 8. Some patients need to see GI for evaluation of ulcers, celiac, and consequence of refractory issues of dysmotility. 9. Supplements of magnesium oxide 400 mg bid or tid can help constipation. BLADDER DYSFUNCTION: This can be a common complaint for autonomic patients. 1. POTS patients due to the adrenergic issues have often urgency and frequency symptoms. 2. Due to inactivity many patients will develop some pelvic ?oor dysfunction and thus bene?t with pelvic ?oor physical therapy to strengthen these muscles. 3. Frequent UTIs and Kidney Infections should prompt a Urology consult for bladder atonia and potential urodynamics studies. 4. All routine medications and supplements need to be reviewed that can bother the bladder function. 5. Sometimes the symptoms are challenging to decipher objectively and will need a Urology consult to address. SICCA SYMPTOMS: Often the patient may have dry eyes and mouth symptoms without having diagnostic evidence of Sjogren s Syndrome (lip biopsy.) 1. Eye exam by an top cager to evaluate diagnostically for dry eyes and if needed over the counter or prescription treatments. 2. Dry mouth can be common from routine medications and need to be reviewed as potential culprits. 3. With dry mouth the patient should be referred to the dentist for best care and plan. 4. The patient should be careful with dry mouth not to over use some sugar free treatments for dry mouth since can promote diarrhea and IBS. 5. Dameon in food and supplements may help some dry mouth. 6. If need pilocarpine tablets may be needed. MENTAL HEALTH: Most patients with this disease due to the impact and struggle of daily life of the change of self, burden, uncertainty, and grief will go through various emotions. 1. We encourage patients and their support person to pursue counseling for skills to live with chronic disease. 2. In depression and anxiety medications like SSRI may help with less impact on orthostatic. 3. Medications like Duloetine and Venfaaxline are not as ideal for POTS but the other orthostatic conditions. Actually these medications may help mental health and higher dose raise the BP. The POTS patients due to these drugs mechanism of action may aggravate the adrenergic symptoms. 4. Periodically check for depression, anxiety, and for even conceding SI, SA, HI, [place]. IV FLUIDS: We generally do not support the chronic use of IV ?uids for orthostatic and POTS patients. We also do not condone the use of a port for most patients. Most patients with routine orthostatic care will not need this treatment. 4. MY CHART, we encourage patients to use this portal for medical issues only and to send a brief 1-2 sentences issue. Large messages will encourage a needed virtual appointment perhaps. 5. The patient can always ?nd their of?ce visit in the MY CHART portal. 6. Care Everywhere if EPIC is shared will have our of?ce notes. 7. We encourage all our patients to have a local family medicine team to work with since we cannot handle medical issues by MY CHART, phone call, and are not able to immediately see a patient. 8. The POTS patients can request also the POTS ER letter if needed to have with them for ER and Urgent Care needs. 9. Some Orthostatic and POTS patients may need either or both a Neurologist and a Manager Store locally to be part of their care. DISABILITY: 1. Many of the patients may not be able to work. Due to the diverse scope of the work we do at the Clinic we sincerely cannot attest or keep up with the paperwork for disability. We can at times write of support for disability, but not be the main medical provider of the paperwork. POTS Manual: Read the POTS manual online. This will help you understand your POTS diagnosis, work with your medical team, and includes detailed instructions and tips for improved daily living with POTS. [email or web address] documented in this [facility] History of Present illness Narrative* Alvin Huddleston DO - 06/07/2021 5:00 PM EDT Yolanda Aparicio is a 25 year old female. SHARED MEDICAL APPOINTMENTS: Patient is at home I spent a total of 60 minutes on the date of the service which included [id number] patient care, completing clinical documentation, communicating results to the patient/family/caregiver, and care coordination (not separately reported). Thank you so much for joining us on Sunday evening for the [facility]. Also we have a POTS Patients Support Liaison program with Kelli Beal. She is our POTS Liaison who is working with us and she has POTS herself. She has POTS . 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 This is a phone call at least. Patients who do this find this so healing, genuine, and transformation of an experience after being not listened to and dismissed for so long. Please send a short email at [email or web address] This care is not for scheduling appointments or medical provider visits. FYI : If by chance you email Kelli and not heard back in 3 business days please send a 1 -2 sentence my chart message to me. There are times cyber incident handler blocks that may block an email to enter the system. Thank you This session we discussed implicit bias and micro aggression of how impact health . Even one's own internal experience can lead to these concepts. Thoughts and feelings are implicit if we are unawareof them or mistaken about their nature. We have a bias when, rather than being neutral, we have a preference for (or aversion to) a person or group of people. Thus, we use the term implicit bias to describe when we have attitudes towards people or associate stereotypes with them without our conscious knowledge. Micro aggression a statement, action, or incident regarded as an instance of indirect, subtle, or unintentional discrimination against members of a marginalized group with indirect, subtle, or unintentional discrimination against members of a marginalized group With regards to my chart and the direction we have had to move forward: Based on the volume, frequency, messages in format of texting/or snapchat types/ and repeated mychart messages we receive from patients in a month we can no long address issues of questions, medication changes,disease management in my chart forum effectively for patient care. If there is an urgent issue seek urgent care or medical level ER care. If needed review or see your PCP For POTS patients recommend to use the POTS manual, flaquito orthostatic exercise video on youtube for educational, utilize your chronic self care tools, attend more share medical appointments are recommended POTS Manual: Read the POTS manual online. This will help you understand your POTS diagnosis, work with your medical team, and includes detailed instructions and tips for improved daily living with POTS. [email or web address] Reminder that with health conditions that most medications and other care treatments including rehabilitation /exercise programs need 3-4 months to work . With chronic health conditions may need evenlonger to work if one has been ill and suffered. Supplements that can be calming and helpful Supplements for helping neural excitable Adde each one every few weeks /take in am with food Co Enzyme Q10 100 mg daily for 4 weeks then go 200 mg daily Alpha lipoic acid 600 mg daily NAD /nicotinamide adenine dinucleotide (NAD) 10 mg daily MAG Oxide 400 mg daily (watch for laxative effect) B12 1000 ucg daily Any brand is fine Timeline: We reviewed how there is a timeline of POTS onset. Many remember when there was a timeline when health changed. The day when symptoms changed or the tipping point. This is part of the orthostatic symptoms and the adrenaline compensation symptoms we discussed. This is of relevant to reviewhow the body changes and how the body starts to adapt and remember how to compensate with neurological responses. We even used certain causes of POTS as clear examples to represent this change and how many influences in the body leads to this cascade of the day of change. This is all relevant sinceonce we identify this change the care or recognizing if first step of awareness and then all the orthostatic care make sense. One has to slowly over time to turn off and in some sense retrain the body to less adrenaline is needed routinely to compensate and be a given autonomic response (even when not needed). Let us start with discussing POTS physiology. When you stand two water bottles of blood drop. To compensate, the body speeds up the heart in an effort to get blood to your brain so you don't faint. This is adrenaline and while it may feel terrible it is an autonomic protective mechanism. The brain controls the Autonomic Nervous System. The Sympathetic Nervous System is responsible for stress and survival. The Parasympathetic Nervous System is responsible for growth and repair. Finding the balance between the Sympathetic and Parasympathetic for those of us living with POTS presents a challenge. The Sympathetic cardiac nerves increase and force of contraction, whereas the Vagus nerve (parasympathetic) decreases heart rate. The Baroreceptor sends signals to the brain. The brain is like a smartphone and creates memories from the experiences as is the case with adrenaline. The brain is tied into speeding up the heartrate and adrenaline. You may notice adrenaline surges coming at around the same time each day. That is the memory-make adrenaline and then do it again and again on a loop. A pattern of symptoms form such as pain, racing heart rate, headaches, and tingling. After this heightened form of adrenaline takes place, the polyvagal symptoms may take over: the heart rate and blood pressure drop, you may feel cold, feel the sensation of rubber legs, defecate, urinate etc. This explains the cycle of Fight, Flight, and Freeze. Once your body gives way to adrenaline, you may become listless and exhausted feeling the rag doll effect. This can last for hour to days. An effective way to lower heart rate is called the COLD EFFECT DIVE REFLEX: If you hold your breathand put your face in cold water, your heart will immediately slow down by 25%. Using a cold washcloth in a plastic sandwich bag can also help lower heart rate. Tongue on roof of soft palate slows heart rate: To perform, curl tongue back to touch the soft palate in the mouth. Your mouth may remain open a tad, make an R sound. Doing this numerous times in a day will reduce adrenaline symptoms such as lowering HR, decreased sweating, and decrease brain fog as well as jitteriness. Another effectiveexercise is performing the Valsalva maneuver to prevent palpitations. To do this 1. Pinch your nose, 2. Close your mouth, 3. Then try to breathe out. To explain at a more scientific and evolutionary level would be to talk about the Mammalian Diving Reflex: A Marine mammals' physiological response when stimulated by cold water submersion is the shunting blood from their peripheral tissues to their body's core. The increased blood volume in the core then stimulates a vagal response which produces profound bradycardia. This shunting of blood fromnon-essential organs and the lowered oxygen demand allows the diving mammal to remain underwater for a prolonged period. We also discussed nose breathing as it is much more effective than mouth breathing when it comes tocalming heart rate. Three breaths in, hold for 8, three breaths out. Over time with proper care, the heart rate is controlled by exercise and medication, but remember it is possible to still feel POTS symptoms with normal vitals. The idea is through wellness modalities to create new memories and files. By realizing this is occurring, being patient with oneself and mi ndfulness, relaxation, and decluttering rework the circuits for more positive experiences The brain does get involved with POTS. The baroreceptor does have localization sites into the brainstem. This is why we can see in head injury cause POTS. Also the brain getting activate in adrenergic state of flight or fight or freeze can cause more than just typical body or heart rate symptoms, but also the brain symptoms of jittery, cannot think, confused at times, restless, headaches, dizzy, jerky limbs, tight muscles, pain, ,less hope, and less creative. The brain as we said is in downstairs mode of the lower center operating and more of the amygdala . This can become more automatic and the default response. The brain is a circuit and remembers this is what it is to do. Recognizing this as occurring is pepe and next steps is to show your brain is okay to learn new ways of circuits is pepe. New ways are via wellness, exercise, medication at times, and even health psychology. We have health psychology here to show nervous system new ways to be again, relaxation tools. Biofeedback, and tips for living with a disease. We can offer this health psychology by sending a [employer] message to us . POTS [facility] [facility] [facility]--December Thank you so much for joining us on Sunday for the Venuu. Let us start with discussing POTS physiology. When you stand two water bottles of blood drop. To compensate, the body speeds up the heart in an effort to get blood to your brain so you don t faint. This is adrenaline and while it may feel terrible it is an autonomic protective mechanism. While manypeople think most POTS patients faint, in reality only about 15% of those with POTS do. POTS symptoms include Tachycardia, lightheadness, brain fog, body pain, GI issues, numbness and tingling limbs,and these are just to name a few we all know the symptoms can run the gamut. Dizziness is also a chief complaint and can be described in a multitude of ways. Some of us feel like we re rocking on a boat, many have trouble driving, and functioning through the day is also a major challenge when one has vestibular issues. We always start with a discussion of POTS physiology. When you stand two water bottles of blood drop. To compensate, the body speeds up the heart in an effort to get blood to your brain so you don t faint. This is adrenaline and while it may feel terrible it is an autonomic protective mechanism. The brain controls the Autonomic Nervous System. The Sympathetic Nervous System is responsible for stress and survival and is why you feel the symptoms of adrenaline which include but are not limitedto: racing heart rate, chest pain, sweating, neck pain, fainting, near fainting, nausea diarrhea, bloating, frequent urination, skin tingling, ears ringing, heightened senses, inability to sleep, cannot think, brain fog, jerking limbs, muscle tightness and the list goes on... The Parasympathetic Nervous System is responsible for growth and repair, rest and digest. Some of you may notice a drop inheart rate after a sympathetic surge. The polyvagal symptoms may take over: the heart rate and blood pressure drop, you may feel cold, feel the sensation of rubber legs, defecate, urinate etc. This explains the cycle of Fight, Flight, and Freeze. Once your body gives way to adrenaline, you may become listless and exhausted feeling the rag doll effect. Thank you again. Your attendance of the Shared Medical Appointment and involvement in the POTS community is pepe to your success and those who come behind you. Please look at POTS body movement techniques at [employer] orthostatic exercises - YouTube, and please follow our Instagram page [email or web address]. Please take advantage of all of these tools available to you. We are committed to your journey toward restored wellness. We look forward to seeing you again in future SMA s. To schedule the ZOOM POTS SMA please call during Sunday-Sunday 9 am - 4 pm , Please be patient with the phone line as we are in midst of reopening during the pandemic phase We are honored and glad to have you part of the SMA for POTS Welcome to ZOOM POTS SMA (SHARED MEDICAL APPOINTMENTS) We have learned at the [facility] and especially in my work and our department that POTS thatthere is so much to learn to live well with this condition. So much of the emphasis needs to be on life tips of education, body awareness, community, exercise , daily life tips, and the psychology of living well with POTS. 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 We have even published the benefit of the SMA for POTS. We used to do the SMA in person, but during the pandemic we are starting to do them via ZOOM. For years I have been wanting to do the SMA as a virtual format like ZOOM. The ZOOM SMA is a safe space to be supported. We do request to allow your face to be seen and courtesy language. The session is about 90 minutes long. We will have a topic, questions, and answers. The sessions are not recorded. POTS Manual: Read the POTS manual online. This will help you understand your POTS diagnosis, work with your medical team, and includes detailed instructions and tips for improved daily living with POTS. [email or web address] YouTube: [email or web address] orthostatic exercise Instagram: POTS FLAQUITO Orthostatic Your body has a network of blood vessels made up of arteries, veins, and capillaries. The heart pumps blood into the arteries, which carry the blood throughout the body. Blood pressure is the pressure or force of blood pushing against the schuster of the arteries. Blood pressure is written as two numbers; for example, 120 over 80 millimeters of mercury. The first number is the systolic pressure. This is the pressure in the arteries when the heart beats and fills them with blood. The second number is the diastolic pressure. This is the pressure in the arteries when the heart rests between beats. Orthostatic hypotension is a condition in which your blood pressure falls significantly when you stand up quickly. (Hypotension is low blood pressure.) What are the symptoms of orthostatic The main symptom of may even faint. Other symptoms include: Blurred vision Nausea Disorientation or confusion Feeling weak Fatigue Falling Chest pain Neck pain Cognitive disorder Challenge in breathing Base of neck pain and head pressure Breathing challenge when standing up Legs become weak/ walking challenge/rubbery legs Rebound or surge in blood pressure spikes especially when laying down These symptoms usually clear up when you sit or lie down for a few minutes. THIS NOTE IS FOR AT FIRST FOR MY DOCUMENTATION TO PROVIDE CARE, HELP INSURANCE COMPANY AND COLLEAGUES TO HAVE NEUROLOGICAL CONTEXT OF MY , AND FOR MY PERSONAL RECORDING TO FACILITATE FUTURE CARE BY HAVING A WRITTEN DOCUMENT MEMORY OF OUR CONSULT TOGETHER . THANK YOU FOR UNDERSTANDING THIS OFFICE NOTE IS A PHYSICIAN BASED DOCUMENT FOR COMMUNICATION AND CARE. ACTIVE PROBLEM LIST Covid-19 Personal History of Covid-19 Intractable Tension-Type Headache Cerebrovascular Disease Facial Paresthesia Pots (Postural Orthostatic Tachycardia Syndrome) Long Covid Cognitive Communication Deficit Current Outpatient Medications on File Prior to Visit Medication Sig metoprolol tartrate, short acting, (LOPRESSOR) 25 mg tablet Take 0.5 tablets by mouth twice daily. hydrOXYzine HCl (ATARAX) 10 mg tablet Take 1 tablet by mouth three times daily as needed. sodium chloride 1 gram tab TALE 1 TABLET BY MOUTH THREE TIMES DAILY. TAKE WITH FOOD. ivabradine (CORLANOR) 5 mg tablet Take 2.5 mg by mouth twice daily. gabapentin (NEURONTIN) 300 mg capsule 1 capsule 2x/day gabapentin (NEURONTIN) 100 mg capsule Take 2 capsules by mouth twice daily. (taken with 300mg capsule) tiZANidine (ZANAFLEX) 4 mg tablet Take 1 tablet by mouth daily at bedtime. ondansetron orally disintegrating (ZOFRAN ODT) 4 mg disintegrating tablet Take 4 mg by mouth once daily as needed. diazePAM (VALIUM) 2 mg tablet Take 1 mg by mouth once daily. ibuprofen (MOTRIN) 200 mg tablet Take 200 mg by mouth as needed. acetaminophen (TYLENOL) 500 mg tablet Take 500 mg by mouth as needed. Current Facility-Administered Medications on File Prior to Visit Medication perflutren lipid microspheres 1.3 mL in NaCl (PF) 0.9% 10 mL injection (DEFINITY) sodium chloride 0.9 % (flush) 10 mL (BD POSIFLUSH) FAMILY HISTORY Problem Relation Age of Onset Hypertension Father Hyperlipidemia Father Hyperlipidemia Maternal Grandmother other (afib) Maternal Grandmother Heart Attack Paternal Grandmother PAST SURGICAL HISTORY Procedure Laterality Date NONE 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 Exercise of amplifying of parasympathetic is to breath response. Take slow breathe inspiration over 3 seconds and then breathes over 5 seconds out with expiration (do exercise via nostril breathing) Alvin Huddleston D.O ELECTRONICALLY SIGNED June 07, 2021 Adult Neurology/ Board Certified Director of Autonomic Center Department of Neuro Muscular of the Neurological Stickney Candy Attendant for Neurology Clerkships Clinical Baby Counselor of Neurology Physician Advisor for the [facility] [employer] Speech Correction Assistant of Mistreatment and Neglect [facility] Faculty Appointment [facility] Faculty Appointment [facility] Professor [facility] of [facility] / TAX ID: [id number] [address]/ [address] [place] [address] / consult requested for an opinion regarding the evaluation and treatment of POTS My final impression and recommendations will be communicated back to the requesting physician by way of the shared medical record or letter via US [id number]/ Welcome There are videos /playlist/podcast to viewed and helped for exercises and wellness for POTS and Orthostatics Instructions: . HELP WITH MEDICAL PROVIDERS IN LOCAL CARE NOT PART OF THE [facility] To help be successful in care locally with the limits of virtual, my chart , phone calls, and limited in person appointments. This tips sheet helps patients and medical providers. This tips are for guidance and general themes. We do not want them to be customized into individualmy chart message questioning and repeated messages Dear Colleague, This is a tip sheet collaboration to help along in our shared work with the orthostatic to give context and approaches we do with orthostatic patients in our care in the Autonomic Department and you can also bridge into your practice. Thank you for the collaborative work Doctor Guidance for Autonomic Dysfunction SIMPLE FYI ON ORTHOSTATIC MEDICATIONS 1. Florinef: Dosing 0.1 mg at once or twice per day. May need to watch for hypokalemia 2. Midodrine: 2.5 mg daily to 20 mg tid. Have to watch for rebound HTN. 3. Pyridostigmine (60 -240 mg) has helped autonomic symptoms via cholinergic stimulations without raising the BP. 4. POTS patients to control adrenergic symptoms may need beta blockers, calcium channel blockers, and ivabradine. MEDICATIONS OF ORTHOSTATICS, REVIEW OF MEDICATIONS AND SUPPLEMENTS AND BP CHECKS 1. If your clinical discretion is prompted you can hold the medication for the day or longer, but remind the patient and the support person to be careful worsening of syncope and falls. 2. Can if resuming medications can go back and 02/15 to dose 3. SBP > 170 or DBP > 95 over consistent readings is a concern 4. For BP readings we do recommend the patient or support person to check the BP and pulse about three times sitting in the am before coming to the appointment 5. REVIEW ALL MEDICATIONS AND SUPPLEMENTS IN EACH VIIST THAT CAN BE CONTRIBUTORY TO ORTHOSTATICS. SUCH MEDICATIONS ARE ANTI HYPERTENSIVES, ANTI CHOLINERGICS, ANTI PSYCHOTICS, AND MANY BLADDER TREATING MEDICATIONS. SOME POTS PATIENTS WILL NEED BETA BLOCKERS AND CALCIUM CHANNEL BLOCKERS TO CONTROL THE ADRENERGIC VITALS AND SYMPTOMS. ROUTINE LABS: We recommend to use your general medical discretion as any patient to check labs. 1. On Florinef to check potassium 2. Some of the POTS patients are more prone to hypokalemia and may be worthwhile and no interval oftime needed to check potassium. 3. B12 is associated with orthostatic disorder 4. If SICCA is a concern an BENNIE, anti tipton, and anti rho may be helpful 5. If Mast Cell Disease comes up to check an tryptase (concern is > 20 and will need referral toAllergy/Immunology) 6. Thyroid Function Test 7. CBC and CMP annually with any medications of concern EXERCISE: AND REHAB CARE Exercise does help orthostatic patients greatly. Though it seems to be miserable and not feasible for this condition, it does help control symptoms and often improve them. 1. POTS patients bene?t with cardiac rehab. There is repeated data of the cardiac rehab model for POTS to improve and reduce symptoms. At the Clinic the cardiac rehab is a one-time visit and the patient is given the template to do independently. Locally, the cardiac rehab division may help in routine visits. Also utilize free information. Internet search and print the pots manual on the [facility] website POTS Manual: Read the POTS manual online. This will help you understand your POTS diagnosis, work with your medical team, and includes detailed instructions and tips for improved daily living with POTS. [email or web address] POTS [facility] CARDIAC REHAB PROGRAM for patients. 2. Seated chair yoga and if patient can tolerate, sandro chi for balance helps. Also this work helps with inspiration and expiration to help heart rate variability. 3. Seated recumbent bike and even a foot peddle bike at home depending on the level of disability of the patient can help and should be encouraged. 4. Counting steps program with graduating accumulation of steps in the day should be encouraged. A walking program even if the patient just takes for example 50 steps every hour during wakefulness should be encouraged and over time evolve to more steps per interval. 5. PT locally for more muscle strength and maintain gait/balance. 6. Some due to neck pain and the coat changer fixer of neck muscle orthostatic hypo perfusion will developdizziness and vertigo. Vestibular rehab for cervical vertigo may be needed. 7. Gait dysfunction can be for many reasons the underlying neurological diagnosis and inclusive of the impact of deconditioning. There is an orthostatic gait disorder of the elderly where syncope hasto be considered in sudden unexplained falls. SALT LOADIN. The loading of salt can be 3-5 grams per day if it is permitted. 2. Some will do salt tablets that are purchased over the counter. Take with food since can cause nausea. 3. Encourage patients to add salt to nutrient rich food or consume salty foods. (Avoid default foods such as potato chips that are calorie rich but nutrient poor.) 4. Veggie, Chicken, and Beef Broths are good ways for hydration and salt. 5. Pickles and olives are salty snacks. 6. Salt and water loading the patient may note more bloating and increased BMI. More abdominal and pelvic girth can occur. HYDRATION: This matters greatly for orthostatic patients 1. Maintaining 64 -84 ounces per day if allowed with other health issues per day is pepe. 2. Challenges are older persons who will not want to drink as much to avoid night time and frequenturination. We encourage early am hydration. 3. Water helps and is free. Tap water is ?ne. 4. Patients can purchase electrolyte solutions. Again be mindful of cost and if also cause GI symptoms of nausea, bloating, and diarrhea (see under GI health step 7.) 5. Watch if a concern for hyponatremia by ua and bmp. LEG SWELLING: Can occur from the blood pooling from the orthostatic issues. The legs may even turn blue, red, and pale. Some may have even livedo reticularis. 1. Treating the orthostatic disorder will help. 2. Compression stockings knee high, thigh high, and even panty hose can help. 3. Having the patient elevate the legs up above the heart repeatedly during the day will help. 4. If possible, repeatedly do the legs on the wall yoga maneuver. 5. Often legs swell from inactivity. Orthostatic exercise can help greatly. SLEEP: Sleep can be a challenge due to aspects of typical chronic health issues of inconsistent sleep schedule, inactivity, medication effects and even mental health aspects of chronic disease (worriment, rumination of the future, uncertainty). 1. Having the patient maintain same sleep schedule with bed at the same time and awakening the sametime daily is pepe. Try to avoid naps. Keeping the room in the ideal temperature control helps. Keeptechnology out of the room such as tablets, cellphones, TV, and laptops with the screen light that can maintain wakefulness. If patient cannot sleep, have them get up out of bed for 30 minutes or so to read and then go back to bed. 2. Melatonin 3-10 mg to take 2 hours before sleep can help 3. We try to avoid typical sedatives if possible 4. We avoid TCA medications for sleep since can potentiate orthostatic issues 5. Remeron/mirtzatipine 7.5-45 mg at HS can be used for sleep 6. Beta blockers at HS is used for POTS patients to control the adrenergic symptoms 7. Many orthostatic patients have nocturnal symptoms especially due to lack of body movement and reduced circulation of the blood. POTS patients due to the adrenergic response can have more supine chest pain, racing heart rate, restless sleep, nightmares, sweating, and awakenings. The pure autonomic failure, neurogenic orthostatic hypotension, autonomic neuropathy, Parkinson s, and multisystem atrophy patients due to the baroreceptor dysregulation response to help can still have supine HTN events (see below). PAIN: Many patients may have pain from orthostatics. 1. Some have small ?cooper neuropathy that is associated that can cause pain. Typical medications except TCA (due to promoting orthostatic issues) may help nerve pain. 2. Some of the POTS patients have Ehler-Danlos Syndrome that has joint disorder and neuropathy associated. 3. Inactivity causes joint stiffness. 4. Headaches and neck pain from hypoperfusion (there is an orthostatic headache and coat changer fixer syndrome.) Treating the orthostatic syndrome may help, but some may still have pain. 5. Be mindful of medication overuse such as in headaches of medicament overuse and also opioate usedisorder that can amplify pain. Compression Stockings and Garments: They do help, but are a struggle. Encourage patients to try them and explore various modalities if can with medical and non- medical. Again, this can be costly for the patient. Sports brand and non-medical compression stockings and garments may give relief and thepatient may have to shop around to ?nd the right gramajo point for them. 1. Compression stockings to the knee 20-30 mm Hg 2. above the knee thigh high 20-30 mm HG 3. Compression stockings to hip level /panty hose help since most of the blood is in the pelvic area 4. Abdominal binder can be helpful 5. Arm compression sleeve 6. Spanx 7. Encourage the patient to explore and do various combinations of the above. Also to use the gear in different aspects of the day. Most times in hot weather is not permitted outside. Also most cannot wear to bed. GI HEALTH: Many autonomic patients have associated GI complaints of bloating, re?ux, diarrhea, constipation and IBS. 1. Some actually will have de?debra GI motility of gastric and/or colonic motility by gastric empty, colonic motility studies, or capsule endoscopy studies. POTS patients in publications may have rapidmotility due to the adrenergic response. 2. Reviewing all medications for impact or irruption of the GI system is always good. 3. Treating for GERD is helpful. 4. Treating with typical routine care of medication and diet for diarrhea and constipation is helpful. Having the patient follow food triggers may help. Some may bene?t with FODMAP diet for IBS. 5. Maintaining hydration that helps orthostatic self-care helps GI health also. 6. For some the excessive salt loading may contribute to nausea and diarrhea, should be deciphered,and have the patient cut back to see if this is a factor. 7. Some of the purchased electrolyte drinks may cause GI symptoms. Have the patient cut back or change to another form of care to see if this is a factor for their GI symptoms. 8. Some patients need to see GI for evaluation of ulcers, celiac, and consequence of refractory issues of dysmotility. 9. Supplements of magnesium oxide 400 mg bid or tid can help constipation. BLADDER DYSFUNCTION: This can be a common complaint for autonomic patients. 1. POTS patients due to the adrenergic issues have often urgency and frequency symptoms. 2. Due to inactivity many patients will develop some pelvic ?oor dysfunction and thus bene?t with pelvic ?oor physical therapy to strengthen these muscles. 3. Frequent UTIs and Kidney Infections should prompt a Urology consult for bladder atonia and potential urodynamics studies. 4. All routine medications and supplements need to be reviewed that can bother the bladder function. 5. Sometimes the symptoms are challenging to decipher objectively and will need a Urology consult to address. SICCA SYMPTOMS: Often the patient may have dry eyes and mouth symptoms without having diagnostic evidence of Sjogren s Syndrome (lip biopsy.) 1. Eye exam by an top cager to evaluate diagnostically for dry eyes and if needed over the counter or prescription treatments. 2. Dry mouth can be common from routine medications and need to be reviewed as potential culprits. 3. With dry mouth the patient should be referred to the dentist for best care and plan. 4. The patient should be careful with dry mouth not to over use some sugar free treatments for dry mouth since can promote diarrhea and IBS. 5. Dameon in food and supplements may help some dry mouth. 6. If need pilocarpine tablets may be needed. MENTAL HEALTH: Most patients with this disease due to the impact and struggle of daily life of the change of self, burden, uncertainty, and grief will go through various emotions. 1. We encourage patients and their support person to pursue counseling for skills to live with chronic disease. 2. In depression and anxiety medications like SSRI may help with less impact on orthostatic. 3. Medications like Duloetine and Venfaaxline are not as ideal for POTS but the other orthostatic conditions. Actually these medications may help mental health and higher dose raise the BP. The POTS patients due to these drugs mechanism of action may aggravate the adrenergic symptoms. 4. Periodically check for depression, anxiety, and for even conceding SI, SA, HI, [place]. IV FLUIDS: We generally do not support the chronic use of IV ?uids for orthostatic and POTS patients. We also do not condone the use of a port for most patients. Most patients with routine orthostatic care will not need this treatment. 4. MY CHART, we encourage patients to use this portal for medical issues only and to send a brief 1-2 sentences issue. Large messages will encourage a needed virtual appointment perhaps. 5. The patient can always ?nd their of?ce visit in the MY CHART portal. 6. Care Everywhere if EPIC is shared will have our of?ce notes. 7. We encourage all our patients to have a local family medicine team to work with since we cannot handle medical issues by MY CHART, phone call, and are not able to immediately see a patient. 8. The POTS patients can request also the POTS ER letter if needed to have with them for ER and Urgent Care needs. 9. Some Orthostatic and POTS patients may need either or both a Neurologist and a Manager Store locally to be part of their care. DISABILITY: 1. Many of the patients may not be able to work. Due to the diverse scope of the work we do at the Clinic we sincerely cannot attest or keep up with the paperwork for disability. We can at times write of support for disability, but not be the main medical provider of the paperwork. POTS Manual: Read the POTS manual online. This will help you understand your POTS diagnosis, work with your medical team, and includes detailed instructions and tips for improved daily living with POTS. [email or web address] documented in this encounterC[facility]innati [facility] Miscellaneous Notes* Telephone Encounter - Haleigh Parks RN - 06/07/2021 9:13 AM EDT [place], Willing to continue metoprolol for a few more days. Provides more readings. Haleigh Parks RN, BSN, BA * Telephone Encounter - Haleigh Parks RN - 06/07/2021 8:28 AM EDT Images from the original note were not included. Jaskaran Guzman, UTILITY SYSTEM REPAIRER.CAKE MAKER You 20 hours ago (12:17 PM) Can she continue it a few more days and see if she improves Haleigh Parks RN, BSN, BA * Telephone Encounter - Haleigh Parks RN - 06/06/2021 11:44 AM EDT [place], 115/73 64 4/20 PM 104/76 93 4/21 AM 114/77 74 4/21 PM 108/77 71 4/ AM 97/70 79 4/22PM CHEST HURTS/SOB. Vitals since re-starting metoprolol. States that her chest hurts, SOB, and overall uncomfortable. Is not sure she would like to add midodrine back on as there is nothing truly wrong with BP. Statesthat BB is making it drop. Haleigh Parks RN, BSN, BA documented in this encounterCinc[facility]04[facility] Evaluation note* Encounter Date Diagnosis Assessment Notes Treatment Notes Treatment Clinical Notes May, Urinary urgency (ICD-10 - R39.15 ) [facility] Other 04-20-2022 Instructions* Patient Instructions* Lisette Laureano APRN.CAKE MAKER - 06/01/2021 9:48 AM EDT 1. Metoprolol short acting 12.5 mg (HALF pill) twice daily -Keep an eye on your BP at home, let us know if it is getting low. 2. Atarax 10 mg TID PRN 3. Continue conservative measures -Increased water intake (2-2.5 liters of water daily) -Increased salt intake (3-5 grams daily) -Compression stockings -Cardiac Rehab / Exercise -Shared medical appointment with Dr. Huddleston documented in this encounterCincinnati [facility]04-20-2022 History of Present illness Narrative* Jaskaran Guzman APRN.WANDER - 06/01/2021 9:30 AM EDT Images from the original note were not included. [facility] Follow-Up/Established Patient Visit Chief Complaint/Issues: Yolanda Aparicio is a 25 year old handed female seen via virtual visit for: 1. Follow up 2. POTS Brief HPI /Most Recent Department Assessment and Plan Last seen 02/21/2021 by Jaskaran Guzman CNP via myJambi, at which time her symptoms were persistent and not improving. Regular symptoms include tachycardia, chest pain, SOB, and dizziness. She has since done a holter monitor supporting frequent sinus tachycardia. Started on Ivabradine 2.5 mg BID. She is attending Dr. Huddleston's SMAs on a regular basis. Today: She is not currently taking medication. She was very dizzy and lightheaded, thinks this was due to the the ivabradine. Day to day she is having a lot of tachycardia. Her HR is 122 today sitting. Her BP is low at home, she is usually below SBP 105 mmHg. She has been getting chest pain in any position, across the middle her chest, this is not new. She has poor exercise tolerance, gets dizzy standing to do the dishes.She gets very dizzy in the shower or going up the stairs. She is doing vestibular therapy in [place] for her dizziness. We discussed her mood today. States she has had fleeting suicidal thoughts, though she has no intent to act on them. She states she feels good support from Dr. Ward. We discussed starting an antidepressant which she has tried in the past and says she didn't do well with it. She asked about trying an antihistamine, which I think is reasonable. Yolanda has attended an adequate number of Dr. Huddleston's SMA, we discussed that she does not need to continue if she is not finding them beneficial. She is doing well with her self care. She has done cardiac rehab, feels she struggles to due these exercises. She has to lay down most of the day. She is very determined to keep doing her exercises despite symptoms making exercise difficult. She feels when trying a beta yariel in the past, she did notice a little improvement. PMH POTS GERD Joint hypermobility Tension-type headache PAST SURGICAL HISTORY Procedure Laterality Date NONE ALLERGIES Allergen Reactions Amoxicillin-Pot Cla* Other: See Comments extreme dizziness Bactrim [Sulfametho* GI Upset Cephalexin Unknown Ciprofloxacin Unknown Lexapro [Escitalopr* GI Upset [place] Juice Rash Sertraline Mental Status Change, Other: See Comments Trimethoprim Other: See Comments Social History Tobacco Use Smoking status: Former Smoker Packs/day: 0.30 Years: 5.00 Pack years: 1.50 Types: Cigarettes Quit date: 02/13/2016 Years since quittin.3 Smokeless tobacco: Never Used Vaping Use Vaping Use: Never used Substance Use Topics Alcohol use: No Drug use: Never FAMILY HISTORY Problem Relation Age of Onset Hypertension Father Hyperlipidemia Father Hyperlipidemia Maternal Grandmother other (afib) Maternal Grandmother Heart Attack Paternal Grandmother ROS Review of Systems CONSTITUTIONAL: No reported fevers, chills, night sweats, or significant unintentional weight loss. EYES: No visual changes indicated. No eye pain or orbital swelling reported. HEENT: No hearing changes or vertiginous symptoms indicated. No history of nose bleeds reported. RESPIRATORY: No reported cough, wheezing and dyspnea. CARDIOVASCULAR: Positive for significant chest pain, and palpitations per report. GI: Negative for significant abdominal discomfort, blood in stools or black stools reported. No recent reported change in bowel habits. : No reported history of incontinence. No dark/cola colored urine reported. MUSCLOSKELETAL: No history of significant joint pain or swelling, or myalgias reported. SKIN: Negative for pertinent lesions, rash, and itching per report. HEMATOLOGY/ONCOLOGY: Negative for reported prolonged bleeding, bruising easily, and swollen nodes. ENDOCRINE: Negative for reported significant cold or heat intolerance, no reported goitrous neck swelling or polydipsia PSYCH: No reported depression or anxiety symptoms. No reported SI or HI. NEURO: Per HPI above. No reported sleep disturbance. Current management of orthostatic condition Conservative Measures: 1. Increased water intake (2-2.5 liters of water daily) 2. Increased salt intake (3-5 grams daily) 3. Compression stockings 4. Cardiac Rehab / Exercise 5. Shared medical appointment with Dr. Huddleston Medications Current Medications: -None Medications tried previously (failed): 1. Midodrine (hypertension) 2. Metoprolol (best so far, but did have low BP) 3. Propranolol (was woozy) 4. Sodium Chloride tablets 5. Ivabradine (made her more dizzy) Relevant Work Up To Date Holter Monitor 02/24/2021 IMPRESSIONS AND FINDINGS: The rhythm was sinus/sinus arrhythmia with periods of sinus bradycardia and sinus tachycardia. Maximum HR 158 bpm. Minimum HR 48 bpm. Average 72 bpm. Rare supraventricular ectopics as singles and triplets. A run of SVT lasted 11 beats at rate 147 bpm. No ventricular ectopy present. Patient symptoms sitting/laying, chest/back pain, burning? and standing, woozy both correlated with sinus rhythm while walking/sitting up, palpitations, SOB and walking upstairs with groceries, leg weakness/dizzy/SOB both correlated with sinus tachycardia. EPS Tilt 11/01/2020 Overall: The test is diagnostic for accentuated postural tachycardia with early rise in heart rate. Neurologic Examination: Cognition The patient is alert and oriented times four. Lucid and organized in conversation. Able to provide detailed medical hx. Speech Speech is Normal in fluency, volume, and clarity. No dysarthria. Content and syntax are coherent. Comprehension: Able to follow several step commands. Cranial Nerves No gross asymmetry. No ptosis. General Exam Neurological Exam Subjective Patient-Entered Data: Answers for HPI/ROS submitted by the patient on 05/31/2021 In the past year, have you ever felt faint, dizzy, goofy , or had difficulty thinking soon after standing up from a sitting or lying position?: Yes In the past year, have you ever noticed color changes in your skin, such as red, white, or purple?:No In the past 5 years, what changes, if any, have occurred in your general body sweating?: I sweat much more than I used to Do your eyes feel excessively dry? : No Does your mouth feel excessively dry? : No For the symptom of dry eyes or dry mouth that you have had for the longest period of time, is this symptom:: I have not had any of these symptoms In the past year, have you noticed any changes in how quickly you get full when eating a meal?: I get full less quickly now than I used to In the past year, have you felt excessively full or persistently full (bloated feeling) after a meal?: Sometimes In the past year, have you vomited after a meal? : Never In the past year, have you had a cramping or colicky abdominal pain?: Never In the past year, have you had any bouts of diarrhea?: No In the past year, have you been constipated? : No In the past year, have you ever lost control of your bladder function?: Never In the past year, have you had difficulty passing urine?: Occasionally In the past year, have you had trouble completely emptying your bladder?: Occasionally In the past year, without sunglasses or tinted glasses, has bright light bothered your eyes?: Frequently In the past year, have you had trouble focusing your eyes?: Occasionally Is this most troublesome symptom with your eyes (i.e. sensitivity to bright light or trouble focusing) getting:: Staying about the same When standing up, how frequently do you get these feelings or symptoms?: Frequently How would you rate the severity of these feelings or symptoms?: Severe In the past year, have these feelings or symptoms that you have experienced:: Stayed about the same How severe is this sensitivity to bright light?: Moderate How severe is this focusing problem? : Mild Assessment & Plan 06/01/2021 - Neuromuscular, Lisette Laureano APRN.CAKE MAKER ASSESSMENT Yolanda Aparicio is a 25 year old here today for follow up of her POTS. At last visit, she was started on Ivabradine which she took for about a month and did not tolerate.Feels it worsened her dizziness. She is not currently on therapy. She has tried multiple beta blockers in the past, which worsened her baseline hypotension (usually below 110 mmHg systolic). She had hypertension with midodrine in the past. She feels frustrated with her daily symptoms. She has tachycardia every day, has trouble even standing to do dishes. She gets dizzy in the shower or when walking up stairs. She is doing well with cardiac rehab, and is very determined to keep getting better. I think it is reasonable to try low-dose metoprolol short acting, as she feels like this was the best tolerated medication for her in the past. PLAN 1. Metoprolol tartrate 12.5 mg BID 2. Continue conservative measures. No follow-ups on file. Lisette Laureano APRN.[facility] General Neurology [address] [place]. [address] Appointment: [phone] During our face to face clinical encounter we discussed my concerns neurologically in terms of diagnosis, impact on health and activities of living, and addressed questions. I tried to reassure the patient and also address questions. I explained to the patient to call if any questions, to review res ults, and I want to see them return for neurological follow up as mychart as next steps of communication is agreed upon Patient verbalizes understanding and I have addressed concerns and questions at this visit Patient has my contacts, educational material provided, and my chart sign up. After visit summary discussed. 1. This office note has been dictated and may contain minor typographic errors that escaped review. 2. The nursing staff and medical assistants are a major part of YOUR TREATMENT TEAM and will be handling your phone calls and inquiries, if any. Unless explicitly told otherwise at the time of your office visit, your study results and ensuing treatment plans will be discussed during your follow-up appointment. If you do not have a follow-up appointment and wish to discuss any issues directly withme, please feel free to obtain one. 3. It is my practice to not fill disability or any other insurance-related forms/documention. All of the office notes, study results, and other pertinent documentation generated as part of your evaluation will be available to you and to your Primary Care Physician (PCP). Use of this material to complete such forms will be at the discretion of your PCP/referring physician Attestation: I have reviewed the clinical details obtained and documented by NAINA Laureano and I have participated in the pepe components. I discussed the case and the management plans with HALL COORDINATOR Lisette Laureano, and I fully agree with the recommendations as outlined above. Edits to the note are indicated by italics and the note reflects my input. I spent a total of 30 minutes on the date of the service which included preparing to see the patient, [id number] patient care, completing clinical documentation, obtaining and/or reviewing separately obtained history, performing a medically appropriate examination, counseling and educating the pat ient/family/caregiver and ordering medications, tests, or procedures. My impression and recommendations were discussed at length with the patient (and family members, ifpresent). The patient and family (if present) voiced understanding to my recommendations. All questions were answered. The patient was provided with a detailed after visit summary highlighting my impression and recommendations. Jaskaran Guzman APRN.CNP [facility] Neurological [place] June 01, 2021 11:09 AM documented in this encounterCincinnati [facility]04-19-2022 Evaluation note* Encounter Date Diagnosis Assessment Notes Treatment Notes Treatment Clinical Notes May, Post-COVID syndrome (ICD-10 - B9 4.8) Lengthy discussion with patient today that certainly she needs to continue to follow-up with neuromuscular and the post-COVID [facility]. No change today. May,TSD (post-traumatic stress disorder) (ICD-10 - F43.10)Certainly this is quite reasonable to suggest she does have based on her COVID concerns and ongoingCOVID symptoms. May,GAD (generalized anxiety disorder) (ICD-10 - F41.1)I think it certainly would be reasonable to see a psychiatrist for these concerns. This is really beyond my scope of practice as a primary care physician. May,djustment disorder with depressed mood (ICD-10 - F43.21)Patient certainly to continue to follow-up with psychology and hopefully will be able to see a psychiatrist without too much further delay. [facility] Other 04-19-2022 History of Present illness Narrative* Wilma Mujica, AZAR - 05/31/2021 9:00 AM EDT [facility] Nutrition Therapy: Virtual Consult Re-assessment This visit was performed virtually due to the COVID-19 pandemic as an effort to protect patients and minimize exposure. Consent from patient received to conduct visit virtually. This Team Access Model visit is a virtual encounter. It required patient-provider interaction for the medical decision making as documented below. PROGRESS: Nutrition Intervention (date of last encounter 04/26/21): - Follow Healthy Plate Method at meal times 1/2 plate non-starchy vegetables, 1/4 plate lean protein, 1/4 plate complex carbohydrate - Have a goal of consuming a lean source of protein (20-30 grams) at each meal, aiming for an approximate 8 ounce equivalent daily divided between meals. - Have 3+ cups of vegetables/day and 2 fruit servings/day. - Non-starchy vegetables are unlimited! - Limit starch intake to 1/2-1 cup/meal for desired weight loss. - Avoid high calorie snack foods and baked goods such as chips, cakes, cookies, etc. - Limit eating out to no more than 1-2 times weekly and make healthier choices while dinning out asdiscussed. - Aim to drink at least 64 oz of water/day - Continue to add sources of daily sodium for POTS as you are doing. - Aim to increase exercise as MD approved. CHANGES IN TREATMENT: Patient met goal(s): Partially Actions to implement interventions: Food Recall: Breakfast - High fiber cold cereal Snack - sunflower seeds OR a smart pop 100 calorie mini bag Lunch - 1 cup of rice with chicken and vegetables OR 1 cup of pasta with various vegetables OR C[employer]ra[employer] toast OR home made tortilla pizza OR a salad Snack - nuts OR a home made smoothie Dinner - Premier protein shake OR take out once week OR various proteins, starches and non-starchy vegetables Snack - none Beverages - decaf coffee, water throughout the day, Sugar free Gatorade OR Powerade Exercise- limited at this time due to symptoms with POTS- walking - Admits that she has been dealing with increased stress recently but getting support with counseling from various providers at this time. - Thinks stress might be negatively impacting some desired weight loss. - Has limited fast food and states that she has only had such 6 times over the past month - Tracking food intake via pen and paper but uncertain of caloric intake averages at this time. CLINICAL IMPRESSIONS: good Allergies: ALLERGIES Allergen Reactions Amoxicillin-Pot Cla* Other: See Comments extreme dizziness Bactrim [Sulfametho* GI Upset Cephalexin Unknown Ciprofloxacin Unknown Lexapro [Escitalopr* GI Upset [place] Juice Rash Sertraline Mental Status Change, Other: See Comments Trimethoprim Other: See Comments Medications: Current Outpatient Medications Medication Sig Dispense Refill sodium chloride 1 gram tab TALE 1 TABLET BY MOUTH THREE TIMES DAILY. TAKE WITH FOOD. 90 tablet 2 ivabradine (CORLANOR) 5 mg tablet Take 2.5 mg by mouth twice daily. 90 tablet 2 gabapentin (NEURONTIN) 300 mg capsule 1 capsule 2x/day 180 capsule 3 gabapentin (NEURONTIN) 100 mg capsule Take 2 capsules by mouth twice daily. (taken with 300mg capsule) 360 capsule 3 tiZANidine (ZANAFLEX) 4 mg tablet Take 1 tablet by mouth daily at bedtime. ondansetron orally disintegrating (ZOFRAN ODT) 4 mg disintegrating tablet Take 4 mg by mouth once daily as needed. diazePAM (VALIUM) 2 mg tablet Take 1 mg by mouth once daily. ibuprofen (MOTRIN) 200 mg tablet Take 200 mg by mouth as needed. acetaminophen (TYLENOL) 500 mg tablet Take 500 mg by mouth as needed. 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 Educational materials provided: None this visit Patient presents for follow-up nutrition visit to discuss weight management/desire to lose weight. Since last visit, pt with a 3 lbs weight gain; however, pt reports weighing in following last visit where actual weight noted to be 189 lbs versus the 183 lbs reported so weight change since last visit likely to be 3 lbs lost. Diet recall reveals a more consistent meal pattern with less missed meals and better attention to incorporation of healthier foods in better controlled portions most days; however, suspect some portions larger than recommendations which might be contributing to slower weight loss progress. Fluids meeting recommendations in type and amount, with water as primary beverage. Pt is incorporating activity as tolerated at this time with POTS. See all interventions/recommendations discussed during visit this day. Nutrition Diagnosis: Behavioral-Environmental: Food and nutrition related knowledge deficit, related to, lack of prior exposure to information , as evidenced by client has no prior knowledge of need for food and nutrition - related information. Nutrition Intervention: Modify type and amount of food consumed for meals and snacks: - Follow Healthy Plate Method at meal times to assist with balanced meals in controlled portions 1/2 plate non-starchy vegetables, 1/4 plate lean protein, 1/4 plate complex carbohydrate - Continue to have a goal of consuming a lean source of protein (20-30 grams) at each meal. - Have 3+ cups of vegetables/day and 2 fruit servings/day. - Non-starchy vegetables are unlimited! - Limit starch intake to 1/2-1 cup/meal for desired weight loss. - Continue to limit eating out to no more than once per week. - Consider tracking daily food intake on an yoladna for 2 weeks to determine average calorie intakes. Goal should be 9202-5619 calories daily for desired weight loss. - Aim to drink at least 64 oz of water/day - Aim to increase exercise as MD approved. Nutrition Monitoring & Evaluation: Weight loss of 1-2 pounds per week and adherence to above recommendations. Criteria: patient update and weight check Need for Follow up: 4-6 weeks MNT Billing Type: Re-assess/15 min 3 units Signed by: Wilma Mujica RD, LD, CDCES documented in this encounterCinc[facility]04-18-2022 Instructions* Patient Instructions* Queta Ward PSYD - 05/30/2021 7:46 PM EDT Call [phone] (option #3) to schedule virtual follow-up in about 1 month. documented in this encounterCinc[facility]04-18-2022 History of Present illness Narrative* Queta Ward PSYD - 05/30/2021 10:00 AM EDT [place] Psychology Follow-Up Virtual Yolanda Aparicio [phone] Time spent in session: 60 minutes Parties Present: Patient Diagnoses: PRIMARY: PTSD Other: Generalized Anxiety Disorder Adjustment Disorder w/ depressed mood POTS Post-acute sequelae of COVID-19 ([facility]) Due to the federal emergency declaration and the need for ongoing mental health services, the following visit was completed virtually and informed consent was obtained orally to reduce the risk of Covid-19 exposure. Oral consent to services related to virtual visits was obtained after information was sent via NotaryAct during this patient initial evaluation with the provider. Discussed privacy riskfor virtual sessions. Patient location during the visit: home TREATMENT MODALITIES: POTS Education Trauma processing CBT Care coordination / tx planning Mindfulness approach / relaxation skill building SUBJECTIVE: Comorbid Medical Dx: Facial Paresthesia, intractable tension headaches, GERD, Cerebrovascular Disease; Hx of COVID-19 (01/2020) w/ post-acute sequelae Most significant sx currently: vertigo, brain fog, fatigue, tachycardia, chest pain, SOB, dizziness, nausea (uses Zofran), headaches, body aches Updates per chart review: - ended w/ speech therapy - Botox injection for migraines 05/12/21 - msg to this provider reporting passive SI, asking what is reasoning; discussed likely related to PTSD flare and ongoing health problems, encouraged coping skills and provided crisis line contact. - f/u Mora Guzman CNP, Neuromuscular provider 06/01 TODAY'S INTERVENTIONS: Processed ongoing difficulties w/ healthcare services; validated feelings of frustration and disappointment w/ care concerns. May see sleep specialist through d/t not able to see until August here at [facility]. Processed upcoming appt w/ neuromuscular provider; pt concerned about what tx options could look like; encouraged discussion w/ Mora Guzman CNP, to consider concrete next steps for POTS. From POTS SMAs feels validated in context of other pts struggling w/ their care services and seeking answers as well. Processed ongoing stressors w/ finances and also navigating worker's comp difficulties. Pt has been in school part-time, she reported did schedule for summer w/ one in-person class; she does not feel she can attend in-person and requested accommodations which have been contested by her school. She is considering asking PCP to write a letter; informed pt that neuromuscular center provider should also be able to provide a letter supporting medical accommodations for school. Pt has started weaning off Valium which may be exacerbating her stress as well. Discussed could talk w/ providers about hydroxyzine as an alternative to benzodiazepine for acute anxiety. Pt has been continuing w/ cardiac rehab routine, finds very valuable as part of her care. Processed residual impact of COVID in many ways physically/mentally for her; diffuse nature of her sx has made tx difficult w/ specialty providers. Addressed recent SI, which pt describes as intrusive thoughts ; denied active plan/intent, described as having a sudden thought that she could harm herself but would not actually do it. This is a new occurrence for her. Denied sense of hopelessness or depression driving them, rather the thought comes out of nowhere and scares her in the moment. Pt is wondering if starting probiotic could be contributing in consideration of gut-microbiome, pt found research supporting this and shared w/ this provider in session. She feels stress level overall has not changed, so strange that now having SI andopinion of this provider different from active suicidal intent. Decided to test out probiotic theory by removing probiotic supplement (2 Activia per day) from diet to see if impactful. Collaboratively discussed impact of POTS adrenaline contributing to stress response reaction to above process. Identified safety plan including utilization of internal coping skills (e.g., breathing,grounding) and/or positive coping such as favorite tv show to manage SI, reiterated value of crisisline (such as Crisis Text Line) or contact family supports as additional resources for support. Pt described would like additional individual counseling and this was recommended by her sleep psychologist; will submit referral to psychology and send list of non-[facility] community resources. ASSESSMENT: PHQ-9 Score: 6 (05/29/2021 7:08 PM) (0-4) minimal depression, (5-9) mild depression, (10-14) moderate depression, (15-19) moderately severe depression, (20-27) severe depression ROSE MARIE-7 Total Score: 7 (05/29/2021 7:09 PM) (0-4) minimal anxiety, (5-9) mild anxiety, (10-14) moderate anxiety, (15-21) severe anxiety MENTAL STATUS: Ms. Aparicio was seen virtually; well-groomed, cooperative. Mood was mildly depressed/anxious w/ affect that was mood congruent. Speech was normal in rate, volume and articulation and clear, coherent,and relevant. Thoughts were logical and relevant without delusional thinking or hallucinations. Somatic preoccupation was mild. Endorsed SI, however denied active plan/intent. Judgment and insight were good. Attention span and concentration appeared normal. She was oriented to time, place and person. Memory appeared good. MEDICATIONS: Per medical record: Current Outpatient Medications Medication Sig sodium chloride 1 gram tab TALE 1 TABLET BY MOUTH THREE TIMES DAILY. TAKE WITH FOOD. ivabradine (CORLANOR) 5 mg tablet Take 2.5 mg by mouth twice daily. gabapentin (NEURONTIN) 300 mg capsule 1 capsule 2x/day gabapentin (NEURONTIN) 100 mg capsule Take 2 capsules by mouth twice daily. (taken with 300mg capsule) tiZANidine (ZANAFLEX) 4 mg tablet Take 1 tablet by mouth daily at bedtime. ondansetron orally disintegrating (ZOFRAN ODT) 4 mg disintegrating tablet Take 4 mg by mouth once daily as needed. diazePAM (VALIUM) 2 mg tablet Take 1 mg by mouth once daily. ibuprofen (MOTRIN) 200 mg tablet Take 200 mg by mouth as needed. acetaminophen (TYLENOL) 500 mg tablet Take 500 mg by mouth as needed. Current Facility-Administered Medications Medication Dose Route Frequency perflutren lipid microspheres 1.3 mL in NaCl (PF) 0.9% 10 mL injection (DEFINITY) INTRAVENOUS DIRECTED PRN sodium chloride 0.9 % (flush) 10 mL (BD POSIFLUSH) 10 mL INTRAVENOUS DIRECTED PRN PROGRESS TO DATE/ASSESSMENT: Impression per update (04/18/21): Ms. Aparicio is a 25 year old, single, White female who was referred by Jaskaran Guzman CNP. She presents with POTS and PASC. She meets criteria for PTSD, ROSE MARIE and Adjustment Disorder w/ depressed mood (depression has developed within context of chronic medical conditions and subsequent functional impact). Current sx significantly interfere with her functioning and quality of life. The relationship between her physical and emotional sx is likely bidirectional in nature, in that her medical conditions and mood reflect a hyperactive [employer]. 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 Ms. Aparicio lacks support and feels significantly isolated, which is contributing to her presentation. Will incorporate behavioral activation and CBT to address depression, as well as CBT for health anxiety. Will include POTS education and related management strategies. Will pursue trauma processing to reduce PTSD sx (and related [employer] FIN[employer] hyperarousal), which will likely improve her interactions w/ medical providers. Her laureano and motivation/independence are positive values that will be incorporated into tx. Duration of tx is expected bandar moderate, depending on progress towards goals. PLAN: Homework: coping skills/safety plan w/ use of behavioral strategies; discuss above w/ medical providers Next: trauma processing Follow Up: virtual 1 month Queta Ward PsyD Clinical Psychologist [place] documented in this [facility]04-15-2022 Miscellaneous Notes* Telephone Encounter - Laura Medina - 05/27/2021 3:29 PM EDT Shi Sellers- Can you please change the f/u on 09/[address] Singh? Thank you so much! documented in this [facility]04-15-2022 Miscellaneous Notes* Telephone Encounter - Laura Medina - 05/27/2021 12:34 PM EDT Images from the original note were not included. Called pt notified of the following. She will send mc when she schedules f/u documented in this [facility]04-12-2022 History of Present illness Narrative* Alvin Huddleston, DO - 05/24/2021 5:00 PM EDT Yolanda Aparicio is a 25 year old female. SHARED MEDICAL APPOINTMENTS: Patient is at home I spent a total of 60 minutes on the date of the service which included tgie-wh-ysse patient care, completing clinical documentation, communicating results to the patient/family/caregiver, and care coordination (not separately reported). Thank you so much for joining us on Sunday for the [facility]. Also we have a POTS Patients Support Liaison program with Kelli Beal. She is our POTS Liaison who is working with us and she has POTS herself. She has POTS . 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 This is a phone call at least. Patients who do this find this so healing, genuine, and transformation of an experience after being not listened to and dismissed for so long. Please send a short email at This care is not for scheduling appointments or medical provider visits. FYI : If by chance you email Kelli and linda heard back in 3 business days please send a 1 -2 sentence my chart message to me. There are times cyber incident handler blocks that may block an email to enter the system. Thank you This session we discussed implicit bias and micro aggression of how impact health . Even one's own internal experience can lead to these concepts. Thoughts and feelings are implicit if we are unawareof them or mistaken about their nature. We have a bias when, rather than being neutral, we have a preference for (or aversion to) a person or group of people. Thus, we use the term implicit bias to describe when we have attitudes towards people or associate stereotypes with them without our conscious knowledge. Micro aggression a statement, action, or incident regarded as an instance of indirect, subtle, or unintentional discrimination against members of a marginalized group with indirect, subtle, or unintentional discrimination against members of a marginalized group With regards to my chart and the direction we have had to move forward: Based on the volume, frequency, messages in format of texting/or snapchat types/ and repeated SnapLayouthart messages we receive from patients in a month we can no long address issues of questions, medication changes,disease management in my chart forum effectively for patient care. If there is an urgent issue seek urgent care or medical level ER care. If needed review or see your PCP For POTS patients recommend to use the POTS manual, flaquito orthostatic exercise video on youtube for educational, utilize your chronic self care tools, attend more share medical appointments are recommended POTS Manual: Read the POTS manual online. This will help you understand your POTS diagnosis, work with your medical team, and includes detailed instructions and tips for improved daily living with POTS. [email or web address] Reminder that with health conditions that most medications and other care treatments including rehabilitation /exercise programs need 3-4 months to work . With chronic health conditions may need evenlonger to work if one has been ill and suffered. Supplements that can be calming and helpful Supplements for helping neural excitable Adde each one every few weeks /take in am with food Co Enzyme Q10 100 mg daily for 4 weeks then go 200 mg daily Alpha lipoic acid 600 mg daily NAD /nicotinamide adenine dinucleotide (NAD) 10 mg daily MAG Oxide 400 mg daily (watch for laxative effect) B12 1000 ucg daily Any brand is fine Timeline: We reviewed how there is a timeline of POTS onset. Many remember when there was a timeline when health changed. The day when symptoms changed or the tipping point. This is part of the orthostatic symptoms and the adrenaline compensation symptoms we discussed. This is of relevant to reviewhow the body changes and how the body starts to adapt and remember how to compensate with neurological responses. We even used certain causes of POTS as clear examples to represent this change and how many influences in the body leads to this cascade of the day of change. This is all relevant sinceonce we identify this change the care or recognizing if first step of awareness and then all the orthostatic care make sense. One has to slowly over time to turn off and in some sense retrain the body to less adrenaline is needed routinely to compensate and be a given autonomic response (even when not needed). Let us start with discussing POTS physiology. When you stand two water bottles of blood drop. To compensate, the body speeds up the heart in an effort to get blood to your brain so you don't faint. This is adrenaline and while it may feel terrible it is an autonomic protective mechanism. The brain controls the Autonomic Nervous System. The Sympathetic Nervous System is responsible for stress and survival. The Parasympathetic Nervous System is responsible for growth and repair. Finding the balance between the Sympathetic and Parasympathetic for those of us living with POTS presents a challenge. The Sympathetic cardiac nerves increase and force of contraction, whereas the Vagus nerve (parasympathetic) decreases heart rate. The Baroreceptor sends signals to the brain. The brain is like a smartphone and creates memories from the experiences as is the case with adrenaline. The brain is tied into speeding up the heartrate and adrenaline. You may notice adrenaline surges coming at around the same time each day. That is the memory-make adrenaline and then do it again and again on a loop. A pattern of symptoms form such as pain, racing heart rate, headaches, and tingling. After this heightened form of adrenaline takes place, the polyvagal symptoms may take over: the heart rate and blood pressure drop, you may feel cold, feel the sensation of rubber legs, defecate, urinate etc. This explains the cycle of Fight, Flight, and Freeze. Once your body gives way to adrenaline, you may become listless and exhausted feeling the rag doll effect. This can last for hour to days. An effective way to lower heart rate is called the COLD EFFECT DIVE REFLEX: If you hold your breathand put your face in cold water, your heart will immediately slow down by 25%. Using a cold washcloth in a plastic sandwich bag can also help lower heart rate. Tongue on roof of soft palate slows heart rate: To perform, curl tongue back to touch the soft palate in the mouth. Your mouth may remain open a tad, make an R sound. Doing this numerous times in a day will reduce adrenaline symptoms such as lowering HR, decreased sweating, and decrease brain fog as well as jitteriness. Another effectiveexercise is performing the Valsalva maneuver to prevent palpitations. To do this 1. Pinch your nose, 2. Close your mouth, 3. Then try to breathe out. To explain at a more scientific and evolutionary level would be to talk about the Mammalian Diving Reflex: A Marine mammals' physiological response when stimulated by cold water submersion is the shunting blood from their peripheral tissues to their body's core. The increased blood volume in the core then stimulates a vagal response which produces profound bradycardia. This shunting of blood fromnon-essential organs and the lowered oxygen demand allows the diving mammal to remain underwater for a prolonged period. We also discussed nose breathing as it is much more effective than mouth breathing when it comes tocalming heart rate. Three breaths in, hold for 8, three breaths out. Over time with proper care, the heart rate is controlled by exercise and medication, but remember it is possible to still feel POTS symptoms with normal vitals. The idea is through wellness modalities to create new memories and files. By realizing this is occurring, being patient with oneself and mi ndfulness, relaxation, and decluttering rework the circuits for more positive experiences The brain does get involved with POTS. The baroreceptor does have localization sites into the brainstem. This is why we can see in head injury cause POTS. Also the brain getting activate in adrenergic state of flight or fight or freeze can cause more than just typical body or heart rate symptoms, but also the brain symptoms of jittery, cannot think, confused at times, restless, headaches, dizzy, jerky limbs, tight muscles, pain, ,less hope, and less creative. The brain as we said is in downstairs mode of the lower center operating and more of the amygdala . This can become more automatic and the default response. The brain is a circuit and remembers this is what it is to do. Recognizing this as occurring is pepe and next steps is to show your brain is okay to learn new ways of circuits is pepe. New ways are via wellness, exercise, medication at times, and even health psychology. We have health psychology here to show nervous system new ways to be again, relaxation tools. Biofeedback, and tips for living with a disease. We can offer this health psychology by sending a [employer] message to us . POTS CHAT BRAIN MEMORIES--December Thank you so much for joining us on Sunday for the SMA. Let us start with discussing POTS physiology. When you stand two water bottles of blood drop. To compensate, the body speeds up the heart in an effort to get blood to your brain so you don t faint. This is adrenaline and while it may feel terrible it is an autonomic protective mechanism. While manypeople think most POTS patients faint, in reality only about 15% of those with POTS do. POTS symptoms include Tachycardia, lightheadness, brain fog, body pain, GI issues, numbness and tingling limbs,and these are just to name a few we all know the symptoms can run the gamut. Dizziness is also a chief complaint and can be described in a multitude of ways. Some of us feel like we re rocking on a boat, many have trouble driving, and functioning through the day is also a major challenge when one has vestibular issues. We always start with a discussion of POTS physiology. When you stand two water bottles of blood drop. To compensate, the body speeds up the heart in an effort to get blood to your brain so you don t faint. This is adrenaline and while it may feel terrible it is an autonomic protective mechanism. The brain controls the Autonomic Nervous System. The Sympathetic Nervous System is responsible for stress and survival and is why you feel the symptoms of adrenaline which include but are not limitedto: racing heart rate, chest pain, sweating, neck pain, fainting, near fainting, nausea diarrhea, bloating, frequent urination, skin tingling, ears ringing, heightened senses, inability to sleep, cannot think, brain fog, jerking limbs, muscle tightness and the list goes on... The Parasympathetic Nervous System is responsible for growth and repair, rest and digest. Some of you may notice a drop inheart rate after a sympathetic surge. The polyvagal symptoms may take over: the heart rate and blood pressure drop, you may feel cold, feel the sensation of rubber legs, defecate, urinate etc. This explains the cycle of Fight, Flight, and Freeze. Once your body gives way to adrenaline, you may become listless and exhausted feeling the rag doll effect. Thank you again. Your attendance of the Shared Medical Appointment and involvement in the POTS community is pepe to your success and those who come behind you. Please look at POTS body movement techniques at [employer] orthostatic exercises - YouTube, and please follow our Instagram page [email or web address]. Please take advantage of all of these tools available to you. We are committed to your journey toward restored wellness. We look forward to seeing you again in future SMA s. To schedule the ZOOM POTS SMA please call during Sunday-Sunday 9 am - 4 pm , Please be patient with the phone line as we are in midst of reopening during the pandemic phase We are honored and glad to have you part of the SMA for POTS Welcome to ZOOM POTS SMA (SHARED MEDICAL APPOINTMENTS) We have learned at the [facility] and especially in my work and our department that POTS thatthere is so much to learn to live well with this condition. So much of the emphasis needs to be on life tips of education, body awareness, community, exercise , daily life tips, and the psychology of living well with POTS. 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 We have even published the benefit of the SMA for POTS. We used to do the SMA in person, but during the pandemic we are starting to do them via ZOOM. For years I have been wanting to do the SMA as a virtual format like ZOOM. The ZOOM SMA is a safe space to be supported. We do request to allow your face to be seen and courtesy language. The session is about 90 minutes long. We will have a topic, questions, and answers. The sessions are not recorded. POTS Manual: Read the POTS manual online. This will help you understand your POTS diagnosis, work with your medical team, and includes detailed instructions and tips for improved daily living with POTS. [email or web address] YouTube: flaquito orthostatic exercise Instagram: POTS FLAQUITO Orthostatic Your body has a network of blood vessels made up of arteries, veins, and capillaries. The heart pumps blood into the arteries, which carry the blood throughout the body. Blood pressure is the pressure or force of blood pushing against the schuster of the arteries. Blood pressure is written as two numbers; for example, 120 over 80 millimeters of mercury. The first number is the systolic pressure. This is the pressure in the arteries when the heart beats and fills them with blood. The second number is the diastolic pressure. This is the pressure in the arteries when the heart rests between beats. Orthostatic hypotension is a condition in which your blood pressure falls significantly when you stand up quickly. (Hypotension is low blood pressure.) What are the symptoms of orthostatic The main symptom of may even faint. Other symptoms include: Blurred vision Nausea Disorientation or confusion Feeling weak Fatigue Falling Chest pain Neck pain Cognitive disorder Challenge in breathing Base of neck pain and head pressure Breathing challenge when standing up Legs become weak/ walking challenge/rubbery legs Rebound or surge in blood pressure spikes especially when laying down These symptoms usually clear up when you sit or lie down for a few minutes. THIS NOTE IS FOR AT FIRST FOR MY DOCUMENTATION TO PROVIDE CARE, HELP INSURANCE COMPANY AND COLLEAGUES TO HAVE NEUROLOGICAL CONTEXT OF MY , AND FOR MY PERSONAL RECORDING TO FACILITATE FUTURE CARE BY HAVING A WRITTEN DOCUMENT MEMORY OF OUR CONSULT TOGETHER . THANK YOU FOR UNDERSTANDING THIS OFFICE NOTE IS A PHYSICIAN BASED DOCUMENT FOR COMMUNICATION AND CARE. ACTIVE PROBLEM LIST Covid-19 Personal History of Covid-19 Intractable Tension-Type Headache Cerebrovascular Disease Facial Paresthesia Pots (Postural Orthostatic Tachycardia Syndrome) Long Covid Cognitive Communication Deficit Current Outpatient Medications on File Prior to Visit Medication Sig sodium chloride 1 gram tab TALE 1 TABLET BY MOUTH THREE TIMES DAILY. TAKE WITH FOOD. ivabradine (CORLANOR) 5 mg tablet Take 2.5 mg by mouth twice daily. gabapentin (NEURONTIN) 300 mg capsule 1 capsule 2x/day gabapentin (NEURONTIN) 100 mg capsule Take 2 capsules by mouth twice daily. (taken with 300mg capsule) tiZANidine (ZANAFLEX) 4 mg tablet Take 1 tablet by mouth daily at bedtime. ondansetron orally disintegrating (ZOFRAN ODT) 4 mg disintegrating tablet Take 4 mg by mouth once daily as needed. diazePAM (VALIUM) 2 mg tablet Take 1 mg by mouth once daily. ibuprofen (MOTRIN) 200 mg tablet Take 200 mg by mouth as needed. acetaminophen (TYLENOL) 500 mg tablet Take 500 mg by mouth as needed. Current Facility-Administered Medications on File Prior to Visit Medication perflutren lipid microspheres 1.3 mL in NaCl (PF) 0.9% 10 mL injection (DEFINITY) sodium chloride 0.9 % (flush) 10 mL (BD POSIFLUSH) FAMILY HISTORY Problem Relation Age of Onset Hypertension Father Hyperlipidemia Father Hyperlipidemia Maternal Grandmother other (afib) Maternal Grandmother Heart Attack Paternal Grandmother PAST SURGICAL HISTORY Procedure Laterality Date NONE 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 Exercise of amplifying of parasympathetic is to breath response. Take slow breathe inspiration over 3 seconds and then breathes over 5 seconds out with expiration (do exercise via nostril breathing) Alvin Huddleston D.O ELECTRONICALLY SIGNED May 24, 2021 Adult Neurology/ Board Certified Director of Autonomic Center Department of Neuro Muscular of the Neurological [place] Candy Attendant for Neurology [employer]erks[employer] Clinical Baby Counselor of Neurology Physician Advisor for the [facility] Neurology Speech Correction Assistant of Mistreatment and Neglect [facility] Faculty Appointment [facility] Faculty Appointment [facility] Clinica Professor [employer] [facility] / TAX ID: [id number] [address]/ [id number] [place] [address] / consult requested for an opinion regarding the evaluation and treatment of POTS My final impression and recommendations will be communicated back to the requesting physician by way of the shared medical record or letter via US [email or web address]/ Welcome There are videos /playlist/podcast to viewed and helped for exercises and wellness for POTS and Orthostatics Instructions: . HELP WITH MEDICAL PROVIDERS IN LOCAL CARE NOT PART OF THE [facility] To help be successful in care locally with the limits of virtual, my chart , phone calls, and limited in person appointments. This tips sheet helps patients and medical providers. This tips are for guidance and general themes. We do not want them to be customized into individualmy chart message questioning and repeated messages Dear Colleague, This is a tip sheet collaboration to help along in our shared work with the orthostatic to give context and approaches we do with orthostatic patients in our care in the Autonomic Department and you can also bridge into your practice. Thank you for the collaborative work Doctor Guidance for Autonomic Dysfunction SIMPLE FYI ON ORTHOSTATIC MEDICATIONS 1. Florinef: Dosing 0.1 mg at once or twice per day. May need to watch for hypokalemia 2. Midodrine: 2.5 mg daily to 20 mg tid. Have to watch for rebound HTN. 3. Pyridostigmine (60 -240 mg) has helped autonomic symptoms via cholinergic stimulations without raising the BP. 4. POTS patients to control adrenergic symptoms may need beta blockers, calcium channel blockers, and ivabradine. MEDICATIONS OF ORTHOSTATICS, REVIEW OF MEDICATIONS AND SUPPLEMENTS AND BP CHECKS 1. If your clinical discretion is prompted you can hold the medication for the day or longer, but remind the patient and the support person to be careful worsening of syncope and falls. 2. Can if resuming medications can go back and 02/15 to dose 3. SBP > 170 or DBP > 95 over consistent readings is a concern 4. For BP readings we do recommend the patient or support person to check the BP and pulse about three times sitting in the am before coming to the appointment 5. REVIEW ALL MEDICATIONS AND SUPPLEMENTS IN EACH VIIST THAT CAN BE CONTRIBUTORY TO ORTHOSTATICS. SUCH MEDICATIONS ARE ANTI HYPERTENSIVES, ANTI CHOLINERGICS, ANTI PSYCHOTICS, AND MANY BLADDER TREATING MEDICATIONS. SOME POTS PATIENTS WILL NEED BETA BLOCKERS AND CALCIUM CHANNEL BLOCKERS TO CONTROL THE ADRENERGIC VITALS AND SYMPTOMS. ROUTINE LABS: We recommend to use your general medical discretion as any patient to check labs. 1. On Florinef to check potassium 2. Some of the POTS patients are more prone to hypokalemia and may be worthwhile and no interval oftime needed to check potassium. 3. B12 is associated with orthostatic disorder 4. If SICCA is a concern an BENNIE, anti tipton, and anti rho may be helpful 5. If Mast Cell Disease comes up to check an tryptase (concern is > 20 and will need referral toAllergy/Immunology) 6. Thyroid Function Test 7. CBC and CMP annually with any medications of concern EXERCISE: AND REHAB CARE Exercise does help orthostatic patients greatly. Though it seems to be miserable and not feasible for this condition, it does help control symptoms and often improve them. 1. POTS patients bene?t with cardiac rehab. There is repeated data of the cardiac rehab model for POTS to improve and reduce symptoms. At the Clinic the cardiac rehab is a one-time visit and the patient is given the template to do independently. Locally, the cardiac rehab division may help in routine visits. Also utilize free information. Internet search and print the pots manual on the [facility] website POTS Manual: Read the POTS manual online. This will help you understand your POTS diagnosis, work with your medical team, and includes detailed instructions and tips for improved daily living with POTS. [email or web address] POTS [facility] CARDIAC REHAB PROGRAM for patients. 2. Seated chair yoga and if patient can tolerate, sandro chi for balance helps. Also this work helps with inspiration and expiration to help heart rate variability. 3. Seated recumbent bike and even a foot peddle bike at home depending on the level of disability of the patient can help and should be encouraged. 4. Counting steps program with graduating accumulation of steps in the day should be encouraged. A walking program even if the patient just takes for example 50 steps every hour during wakefulness should be encouraged and over time evolve to more steps per interval. 5. PT locally for more muscle strength and maintain gait/balance. 6. Some due to neck pain and the coat changer fixer of neck muscle orthostatic hypo perfusion will developdizziness and vertigo. Vestibular rehab for cervical vertigo may be needed. 7. Gait dysfunction can be for many reasons the underlying neurological diagnosis and inclusive of the impact of deconditioning. There is an orthostatic gait disorder of the elderly where syncope hasto be considered in sudden unexplained falls. SALT LOADIN. The loading of salt can be 3-5 grams per day if it is permitted. 2. Some will do salt tablets that are purchased over the counter. Take with food since can cause nausea. 3. Encourage patients to add salt to nutrient rich food or consume salty foods. (Avoid default foods such as potato chips that are calorie rich but nutrient poor.) 4. Veggie, Chicken, and Beef Broths are good ways for hydration and salt. 5. Pickles and olives are salty snacks. 6. Salt and water loading the patient may note more bloating and increased BMI. More abdominal and pelvic girth can occur. HYDRATION: This matters greatly for orthostatic patients 1. Maintaining 64 -84 ounces per day if allowed with other health issues per day is pepe. 2. Challenges are older persons who will not want to drink as much to avoid night time and frequenturination. We encourage early am hydration. 3. Water helps and is free. Tap water is ?ne. 4. Patients can purchase electrolyte solutions. Again be mindful of cost and if also cause GI symptoms of nausea, bloating, and diarrhea (see under GI health step 7.) 5. Watch if a concern for hyponatremia by ua and bmp. LEG SWELLING: Can occur from the blood pooling from the orthostatic issues. The legs may even turn blue, red, and pale. Some may have even livedo reticularis. 1. Treating the orthostatic disorder will help. 2. Compression stockings knee high, thigh high, and even panty hose can help. 3. Having the patient elevate the legs up above the heart repeatedly during the day will help. 4. If possible, repeatedly do the legs on the wall yoga maneuver. 5. Often legs swell from inactivity. Orthostatic exercise can help greatly. SLEEP: Sleep can be a challenge due to aspects of typical chronic health issues of inconsistent sleep schedule, inactivity, medication effects and even mental health aspects of chronic disease (worriment, rumination of the future, uncertainty). 1. Having the patient maintain same sleep schedule with bed at the same time and awakening the sametime daily is pepe. Try to avoid naps. Keeping the room in the ideal temperature control helps. Keeptechnology out of the room such as tablets, cellphones, TV, and laptops with the screen light that can maintain wakefulness. If patient cannot sleep, have them get up out of bed for 30 minutes or so to read and then go back to bed. 2. Melatonin 3-10 mg to take 2 hours before sleep can help 3. We try to avoid typical sedatives if possible 4. We avoid TCA medications for sleep since can potentiate orthostatic issues 5. Remeron/mirtzatipine 7.5-45 mg at HS can be used for sleep 6. Beta blockers at HS is used for POTS patients to control the adrenergic symptoms 7. Many orthostatic patients have nocturnal symptoms especially due to lack of body movement and reduced circulation of the blood. POTS patients due to the adrenergic response can have more supine chest pain, racing heart rate, restless sleep, nightmares, sweating, and awakenings. The pure autonomic failure, neurogenic orthostatic hypotension, autonomic neuropathy, Parkinson s, and multisystem atrophy patients due to the baroreceptor dysregulation response to help can still have supine HTN events (see below). PAIN: Many patients may have pain from orthostatics. 1. Some have small ?cooper neuropathy that is associated that can cause pain. Typical medications except TCA (due to promoting orthostatic issues) may help nerve pain. 2. Some of the POTS patients have Ehler-Danlos Syndrome that has joint disorder and neuropathy associated. 3. Inactivity causes joint stiffness. 4. Headaches and neck pain from hypoperfusion (there is an orthostatic headache and coat changer fixer syndrome.) Treating the orthostatic syndrome may help, but some may still have pain. 5. Be mindful of medication overuse such as in headaches of medicament overuse and also opioate usedisorder that can amplify pain. Compression Stockings and Garments: They do help, but are a struggle. Encourage patients to try them and explore various modalities if can with medical and non- medical. Again, this can be costly for the patient. Sports brand and non-medical compression stockings and garments may give relief and thepatient may have to shop around to ?nd the right gramajo point for them. 1. Compression stockings to the knee 20-30 mm Hg 2. above the knee thigh high 20-30 mm HG 3. Compression stockings to hip level /panty hose help since most of the blood is in the pelvic area 4. Abdominal binder can be helpful 5. Arm compression sleeve 6. Spanx 7. Encourage the patient to explore and do various combinations of the above. Also to use the gear in different aspects of the day. Most times in hot weather is not permitted outside. Also most cannot wear to bed. GI HEALTH: Many autonomic patients have associated GI complaints of bloating, re?ux, diarrhea, constipation and IBS. 1. Some actually will have de?debra GI motility of gastric and/or colonic motility by gastric empty, colonic motility studies, or capsule endoscopy studies. POTS patients in publications may have rapidmotility due to the adrenergic response. 2. Reviewing all medications for impact or irruption of the GI system is always good. 3. Treating for GERD is helpful. 4. Treating with typical routine care of medication and diet for diarrhea and constipation is helpful. Having the patient follow food triggers may help. Some may bene?t with FODMAP diet for IBS. 5. Maintaining hydration that helps orthostatic self-care helps GI health also. 6. For some the excessive salt loading may contribute to nausea and diarrhea, should be deciphered,and have the patient cut back to see if this is a factor. 7. Some of the purchased electrolyte drinks may cause GI symptoms. Have the patient cut back or change to another form of care to see if this is a factor for their GI symptoms. 8. Some patients need to see GI for evaluation of ulcers, celiac, and consequence of refractory issues of dysmotility. 9. Supplements of magnesium oxide 400 mg bid or tid can help constipation. BLADDER DYSFUNCTION: This can be a common complaint for autonomic patients. 1. POTS patients due to the adrenergic issues have often urgency and frequency symptoms. 2. Due to inactivity many patients will develop some pelvic ?oor dysfunction and thus bene?t with pelvic ?oor physical therapy to strengthen these muscles. 3. Frequent UTIs and Kidney Infections should prompt a Urology consult for bladder atonia and potential urodynamics studies. 4. All routine medications and supplements need to be reviewed that can bother the bladder function. 5. Sometimes the symptoms are challenging to decipher objectively and will need a Urology consult to address. SICCA SYMPTOMS: Often the patient may have dry eyes and mouth symptoms without having diagnostic evidence of Sjogren s Syndrome (lip biopsy.) 1. Eye exam by an top cager to evaluate diagnostically for dry eyes and if needed over the counter or prescription treatments. 2. Dry mouth can be common from routine medications and need to be reviewed as potential culprits. 3. With dry mouth the patient should be referred to the dentist for best care and plan. 4. The patient should be careful with dry mouth not to over use some sugar free treatments for dry mouth since can promote diarrhea and IBS. 5. Dameon in food and supplements may help some dry mouth. 6. If need pilocarpine tablets may be needed. MENTAL HEALTH: Most patients with this disease due to the impact and struggle of daily life of the change of self, burden, uncertainty, and grief will go through various emotions. 1. We encourage patients and their support person to pursue counseling for skills to live with chronic disease. 2. In depression and anxiety medications like SSRI may help with less impact on orthostatic. 3. Medications like Duloetine and Venfaaxline are not as ideal for POTS but the other orthostatic conditions. Actually these medications may help mental health and higher dose raise the BP. The POTS patients due to these drugs mechanism of action may aggravate the adrenergic symptoms. 4. Periodically check for depression, anxiety, and for even conceding SI, SA, HI, [place]. IV FLUIDS: We generally do not support the chronic use of IV ?uids for orthostatic and POTS patients. We also do not condone the use of a port for most patients. Most patients with routine orthostatic care will not need this treatment. 4. MY CHART, we encourage patients to use this portal for medical issues only and to send a brief 1-2 sentences issue. Large messages will encourage a needed virtual appointment perhaps. 5. The patient can always ?nd their of?ce visit in the MY CHART portal. 6. Care Everywhere if EPIC is shared will have our of?ce notes. 7. We encourage all our patients to have a local family medicine team to work with since we cannot handle medical issues by MY CHART, phone call, and are not able to immediately see a patient. 8. The POTS patients can request also the POTS ER letter if needed to have with them for ER and Urgent Care needs. 9. Some Orthostatic and POTS patients may need either or both a Neurologist and a Manager Store locally to be part of their care. DISABILITY: 1. Many of the patients may not be able to work. Due to the diverse scope of the work we do at the Clinic we sincerely cannot attest or keep up with the paperwork for disability. We can at times write of support for disability, but not be the main medical provider of the paperwork. POTS Manual: Read the POTS manual online. This will help you understand your POTS diagnosis, work with your medical team, and includes detailed instructions and tips for improved daily living with POTS. [email or web address] documented in this [facility] History of Present illness Narrative* Alvin Mortensen - 05/18/2021 3:29 AM EDT Sleep Study Check-In Documentation Date: May 18, 2021 Name: Yolanda Aparicio Patient was accompanied by Self. Location: IC Latex allergy: No Tape allergy: No Current medications were reviewed with the patient:Yes Sleep aid taken by patient for the sleep study: [place] of sleep aid: Not Applicable Procedure was explained to the patient and all questions were answered. PAP treatment discussed and shown to patient: No Knowledge Program (KP): KP [facility] and accepted Study type: Polysomnogram Adverse Event: No (If yes create a new abstract) SERS Event: No Comments: Patient was advised to follow up with their ordering provider regarding test results Alvin Mortensen documented in this encounterCinc[facility] Evaluation note* Encounter Date Diagnosis Assessment Notes Treatment Notes Treatment Clinical Notes Apr, Vertigo (ICD-10 - R42) [facility] Other 03-11-2022 Evaluation note* Encounter Date Diagnosis Assessment Notes Treatment Notes Treatment Clinical Notes Apr, Acute cystitis with hematuria (I CD-10 - N30.01) [facility] Other 02-25-2022 Evaluation note* Encounter Date Diagnosis Assessment Notes Treatment Notes Treatment Clinical Notes Mar, Vertigo (ICD-10 - R42) Mar,Enlarged tonsils (ICD9-CM - 474.11) [facility] Other 02-18-2022 Evaluation note* Encounter Date Diagnosis Assessment Notes Treatment Notes Treatment Clinical Notes Mar, Acute cystitis with hematuria (I CD-10 - N30.01) eRX sent. Pt to call with results - we will call her with results of the culture. We are needing touse the Monurol, as she has intolerances/allergies to Bactrim/Cipro/Macrobid. Mar,ensation of fullness in both ears (ICD-10 - H93.8X3) Discussed with patient that I like her to start back on the nasal spray at this time and call with results. [facility] Other 02-08-2022 NoteHNO ID: [id number] Author: Carrie Bowman PSYD Service: ? Author Type: Resident Type: Progress Notes Filed: 03/23/2021 7:32 PM Note Text: Summary: [facility] Evaluation Behavioral Sleep Medicine Consult Psychological Evaluation [id number] Patient was seen for an initial evaluation. All information is from patient report and review of medical record except when noted. This evaluation is NOT intended for forensic, disability or child custody purposes. Due to the federal state of [facility] and the need for ongoing mental health services, the following visit was completed virtually to reduce the risk of COVID-19 exposure. Consent related to virtual visits was provided verbally after information was sent via ReturnHauler or read to patient if Amanda Huff DBA [employer] not available. Location: [place], [place]. PRESENT: Self, health mechanic insulator (Carrie Bowman PsyD), sleep medicine fellow (Aurelio Arcos MD), behavioral sleep medicine supervisor receiving and processing (Wilfredo Corea PsyD) Yolanda Aparicio is a 25 year old year old female who presents for a [facility] evaluation for psychophysiological insomnia, referred by [facility] Sleep Disorders Physician - Sherwin Anne MD. Miss Aparicio has not been previously evaluated and treated by Behavioral Sleep Medicine at the [facility]. HPI: Pt had difficulty initiating video for her visit. Pt states that she was referred to behavioral sleep medicine due to her ongoing chronic health issues and recent diagnoses. She had COVID and it has caused multiple health issues for her. She was recently diagnosed with ( Pots ) Postural Orthostatic Tachycardia Syndrome in October 2020. Pt states that her sleep was fine before COVID and she has never dealt sleep issues before, however, she does have a history of chronic tension headaches and vertigo. Pt was on steroids initially with COVID and was not sleeping well, but it also made her pre-existing anxiety worse due to being isolated from other people and feeling fearful of getting infected again. Initially, she was put on valium to help her relax, but she is tapering her usage. Her current complaints are that she has trouble falling asleep, staying asleep, and does not feel refreshed when she wakes up in the morning. Pt states that some nights she feels like her eyelids get heavy, she falls asleep quickly, but then she wakes up an hour or two later. Pt reports not feeling sure in regards to what she expects from [facility], but she is open to any recommendations that could improve her sleep as she navigates new health concerns. PMH: No updates, no changes. ACTIVE PROBLEM LIST Covid-19 Personal History of Covid-19 Intractable Tension-Type Headache Cerebrovascular Disease Facial Paresthesia Pots (Postural Orthostatic Tachycardia Syndrome) Long Covid Cognitive Communication Deficit CURRENT MEDICATIONS: She stopped taking mitodrin. She's tapering metoporal. Current Outpatient Medications Medication Sig - midodrine (PROAMITINE) 5 mg tablet TAKE 1 TABLET BY MOUTH THREE TIMES A DAY - ivabradine (CORLANOR) 5 mg tablet Take 2.5 mg by mouth twice daily. - metoprolol succinate ER (TOPROL XL) 25 mg 24 hr tablet TAKE 1 TABLET BY MOUTH EVERYDAY AT BEDTIME - gabapentin (NEURONTIN) 300 mg capsule 1 capsule 2x/day - gabapentin (NEURONTIN) 100 mg capsule Take 2 capsules by mouth twice daily. (taken with 300mg capsule) - tiZANidine (ZANAFLEX) 4 mg tablet Take 1 tablet by mouth daily at bedtime. - sodium chloride 1 gram tab Take 1 tablet by mouth three times daily. Take with food - ondansetron orally disintegrating (ZOFRAN ODT) 4 mg disintegrating tablet Take 4 mg by mouth once daily as needed. - diazePAM (VALIUM) 2 mg tablet Take 1 mg by mouth once daily. - ibuprofen (MOTRIN) 200 mg tablet Take 200 mg by mouth as needed. - acetaminophen (TYLENOL) 500 mg tablet Take 500 mg by mouth as needed. Current Facility-Administered Medications Medication Dose Route Frequency - perflutren lipid microspheres 1.3 mL in NaCl (PF) 0.9% 10 mL injection (DEFINITY) INTRAVENOUS DIRECTED PRN - sodium chloride 0.9 % (flush) 10 mL (BD POSIFLUSH) 10 mL INTRAVENOUS DIRECTED PRN What is the most distressing/disturbing about your sleep patterns? is described as normal, difficulty staying asleep, difficulty falling asleep Estimated average total sleep time per night? Pt states 5-6, varies HISTORY OF SLEEP DIFFICULTIES When did the problem start? January 2020 Identifiable precipitating factors: COVID Course of sleep problems since onset (i.e., progressive worsening over time, worse with high stress): Worsened Parasomnias: Sleep talking Narcolepsy: No Sleep Apnea: No Restless Leg Syndrome: No Environmental: Room is cool, comfortable, quiet, dark and leaves her TV on, and fan on. B (more content not included)...[id number]* Encounter Date Diagnosis Assessment Notes Treatment Notes Treatment Clinical Notes Jan, Enlarged tonsils (ICD9-CM - 474. 11) [facility] Other 11-29-2021 Evaluation note* Encounter Date Diagnosis Assessment Notes Treatment Notes Treatment Clinical Notes Dec, Vertigo (ICD-10 - R42) [facility] Other 11-29-2021 Evaluation note* Encounter Date Diagnosis Assessment Notes Treatment Notes Treatment Clinical Notes Dec, Recurrent acute serous otitis me alexandra of left ear (ICD-10 - H65.05) [facility] Other 11-23-2021 Evaluation note* Encounter Date Diagnosis Assessment Notes Treatment Notes Treatment Clinical Notes Dec, POTS (postural orthostatic tachy cardia syndrome) (ICD-10 - I49.8) Lengthy discussion with patient today regarding all of her concerns. I would tend to agree with theneuromuscular doctor, especially in light of no other symptoms or abnormalities found here today. We will simply continue to monitor. Certainly patient to call this office and/or her team in [place] for further symptoms or worsening of symptoms. Dec,ost-COVID syndrome (ICD-10 - B94.8) Dec,Tachycardia (ICD-10 - R00.0) Dec,Vertigo (ICD-10 - R42) Dec,ight-sided chest pain (ICD-10 - R07.9) [facility] Other 11-18-2021 Evaluation note* Encounter Date Diagnosis Assessment Notes Treatment Notes Treatment Clinical Notes Dec, COVID-19 (ICD-10 - U07.1) [facility] Other 10-22-2021 Evaluation note* Encounter Date Diagnosis Assessment Notes Treatment Notes Treatment Clinical Notes Nov, Vertigo (ICD-10 - R42) [facility] Other 10-20-2021 Evaluation note* Encounter Date Diagnosis Assessment Notes Treatment Notes Treatment Clinical Notes Nov, POTS (postural orthostatic tachy cardia syndrome) (ICD-10 - I49.8) Nov,ost-COVID syndrome (ICD-10 - B94.8) Lengthy discussion with patient today that certainly her concerns are well documented previously, and I really would like to see what neurology and her other various specialist through [facility] have to offer for this. She voices agreement and understanding [facility] Other 10-13-2021 Evaluation note* Encounter Date Diagnosis Assessment Notes Treatment Notes Treatment Clinical Notes Nov, Contact with and (moncada spected) exposure to other viral communicable diseases (ICD-10 - Z20.828) Nov,Viral upper respiratory illness (ICD-10 - J06.9) Drink plenty fluids, get plenty of rest. Consider taking Mucinex for your sinus drainage. Continue home medications as prescribed. Follow-up with your family physician if no improvement in 2 to 3 days Nov,Other Additional time spent conducting pre-visit phone call, screening for symptoms, instructions on social distancing, application and removal of PPE, and cleaning of examination room, equipment and supplies was preformed. Patient education given for testing methodology and results. Patient care instructions given in writting by [facility] Care At Home document. [employer] Other 09-30-2021 Evaluation note* Encounter Date Diagnosis Assessment Notes Treatment Notes Treatment Clinical Notes Oct, Acute cystitis with hematuria (I CD-10 - N30.01) [facility] Other 09-23-2021 Evaluation note* Encounter Date Diagnosis Assessment Notes Treatment Notes Treatment Clinical Notes Oct, Vertigo (ICD-10 - R42) [facility] Other 09-23-2021 Evaluation note* Encounter Date Diagnosis Assessment Notes Treatment Notes Treatment Clinical Notes Oct, Vertigo (ICD-10 - R42) E Rx sent. OARRs completed. We will simply continue the medication at this time, and hopefully moving forward we will be able to decrease this slowly. Oct,OTS (postural orthostatic tachycardia syndrome) (ICD-10 - I49.8) A 30+ minute discussion with patient today, as well as in review with patient all the recent work-up through [facility]. Certainly I think it is quite reasonable for her to continue to pursue the work-up as well as any treatment that is prescribed. She voices agreement, and therefore pt to continue to FU with [facility] and also Cardio Rehab. [facility] Other 09-06-2021 Evaluation note* Encounter Date Diagnosis Assessment Notes Treatment Notes Treatment Clinical Notes Oct, Encounter for screening for othe r viral diseases (ICD-10 - Z11.59) Oct,Other Additional time spent conducting pre-visit phone call, screening for symptoms, instructions on social distancing, application and removal of PPE, and cleaning of examination room, equipment and supplies was preformed. Patient education given for testing methodology and results. Patient care instructions given in writting by [facility] document. [employer] Other 08-30-2021 Miscellaneous Notes* Telephone Encounter - Shaniqua Toussaint APRN.CNP - 10/11/2020 2:08 PM EDT Ordered. Shaniqua Toussaint APRN.CNP * Telephone Encounter - Shaniqua Toussaint APRN.CNP - 10/07/2020 12:49 PM EDT Noted. Could we get a message over to the PFA pool for her to see what assistance they could provide? Shaniqua Toussaint APRN.WANDER * Telephone Encounter - Shauna Del Castillo RN - 10/07/2020 10:54 AM EDT Patient called in and returned call. Patient was seen in [facility] on She is having issues with memory, fatigue and intolerance to activities. She has been in the process of coming of Valium and is having a difficult time. Also she has lost benefits and is trying to get income as her disability has ended. Has not gotten any blood work drawn as she lives in [place] and was under the impression she could go to a [facility] facility near her. Information provided to her. * Telephone Encounter - Jaskaran Farah - 10/07/2020 10:30 AM EDT Patient called asking about results along with seeing if we can help with her disability process. Please call patient back [phone] (home) [facility] of Past illness Narrative* ProblemNoted DateResolved DateCOVID- Hypermobility of joint Overview: Hypermobility of elbow joints; 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 [id number] of tobacco use documented as of this encounter (statuses as of 10/25/2021) [facility] of Past illness Narrative* ProblemNoted Date Resolved DateCOVID-Hypermobility of joint04/07/2018 02/01/2021 Overview: Hypermobility of elbow joints; 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 [id number] of tobacco use documented as of this encounter (statuses as of 10/25/2021) [facility] History of Past illness Narrative* ProblemNoted Date Resolved DateCOVID-Hypermobility of joint04/07/2018 02/01/2021 Overview: Hypermobility of elbow joints; 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 [id number] of tobacco use documented as of this encounter (statuses as of 10/25/2021) [facility] of Past illness Narrative* ProblemNoted Date Resolved DateCOVID-/Hypermobility of joint04/07/2018 02/01/2021 Overview: Hypermobility of elbow joints; 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 [id number] of tobacco use documented as of this encounter (statuses as of 10/26/2021) [facility] of Past illness Narrative* ProblemNoted Date Resolved DateCOVID-Hypermobility of joint04/07/2018 02/01/2021 Overview: Hypermobility of elbow joints; 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 [id number] of tobacco use documented as of this encounter (statuses as of 10/28/2021) [facility] of Past illness Narrative* ProblemNoted Date Resolved DateCOVID-/Hypermobility of joint04/07/2018 02/01/2021 Overview: Hypermobility of elbow joints; 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 [id number] of tobacco use documented as of this encounter (statuses as of 10/28/2021) [facility] of Past illness Narrative* ProblemNoted Date Resolved DateCOVID-/Hypermobility of joint04/07/2018 02/01/2021 Overview: Hypermobility of elbow joints; 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 [id number] of tobacco use documented as of this encounter (statuses as of 11/01/2021) [facility] of Past illness Narrative* ProblemNoted Date Resolved DateCOVID-/Hypermobility of joint04/07/2018 02/01/2021 Overview: Hypermobility of elbow joints; 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 [id number] of tobacco use documented as of this encounter (statuses as of 11/02/2021) [facility] of Past illness Narrative* ProblemNoted Date Resolved DateCOVID-/Hypermobility of joint04/07/2018 02/01/2021 Overview: Hypermobility of elbow joints; 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 [id number] of tobacco use documented as of this encounter (statuses as of 11/07/2021) [facility] of Past illness Narrative* ProblemNoted Date Resolved DateCOVID-Hypermobility of joint04/07/2018 02/01/2021 Overview: Hypermobility of elbow joints; 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 [id number] of tobacco use documented as of this encounter (statuses as of 11/09/2021) [facility] of Past illness Narrative* ProblemNoted Date Resolved DateCOVID-/Hypermobility of joint04/07/2018 02/01/2021 Overview: Hypermobility of elbow joints; 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 [id number] of tobacco use documented as of this encounter (statuses as of 11/20/2021) [facility] of Past illness Narrative* ProblemNoted Date Resolved DateCOVID-/Hypermobility of joint04/07/2018 02/01/2021 Overview: Hypermobility of elbow joints; 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 [id number] of tobacco use documented as of this encounter (statuses as of 12/08/2021) [facility] of Past illness Narrative* ProblemNoted Date Resolved DateCOVID-/Hypermobility of joint04/07/2018 02/01/2021 Overview: Hypermobility of elbow joints; 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 [id number] of tobacco use documented as of this encounter (statuses as of 12/11/2021) [facility] of Past illness Narrative* ProblemNoted Date Resolved DateCOVID-/Hypermobility of joint04/07/2018 02/01/2021 Overview: Hypermobility of elbow joints; 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 [id number] of tobacco use documented as of this encounter (statuses as of 12/27/2021) [facility] of Past illness Narrative* ProblemNoted Date Resolved DateCOVID-/Hypermobility of joint04/07/2018 02/01/2021 Overview: Hypermobility of elbow joints; 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 [id number] of tobacco use documented as of this encounter (statuses as of 12/27/2021) [facility] of Past illness Narrative* ProblemNoted Date Resolved DateCOVID-/Hypermobility of joint04/07/2018 02/01/2021 Overview: Hypermobility of elbow joints; 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 [id number] of tobacco use documented as of this encounter (statuses as of 12/30/2021) [facility] of Past illness Narrative* ProblemNoted Date Resolved DateCOVID-/Hypermobility of joint04/07/2018 02/01/2021 Overview: Hypermobility of elbow joints; 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 [id number] of tobacco use documented as of this encounter (statuses as of 12/30/2021) [facility] of Past illness Narrative* ProblemNoted Date Resolved DateCOVID-//Hypermobility of joint04/07/2018 02/01/2021 Overview: Hypermobility of elbow joints; 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 [id number] of tobacco use documented as of this encounter (statuses as of 01/02/2022) [facility] of Past illness Narrative* ProblemNoted Date Resolved DateCOVID-//Hypermobility of joint04/07/2018 02/01/2021 Overview: Hypermobility of elbow joints; 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 [id number] of tobacco use05/30/997504/ documented as of this encounter (statuses as of 01/04/2022) [facility] of Past illness Narrative* ProblemNoted Date Resolved DateCOVID-Hypermobility of joint04/07/2018 02/01/2021 Overview: Hypermobility of elbow joints; 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 [id number] of tobacco use documented as of this encounter (statuses as of 01/12/2022) [facility] of Past illness Narrative* ProblemNoted Date Resolved DateCOVID-/Hypermobility of joint04/07/2018 02/01/2021 Overview: Hypermobility of elbow joints; 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 [id number] of tobacco use documented as of this encounter (statuses as of 01/16/2022) [facility] of Past illness Narrative* ProblemNoted Date Resolved DateCOVID-Hypermobility of joint04/07/2018 02/01/2021 Overview: Hypermobility of elbow joints; 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 [id number] of tobacco use documented as of this encounter (statuses as of 01/17/2022) [facility] of Past illness Narrative* ProblemNoted Date Resolved DateCOVID-Hypermobility of joint02/ 02/01/2021 Overview: Hypermobility of elbow joints; 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 [id number] of tobacco use documented as of this encounter (statuses as of 01/17/2022) [facility] of Past illness Narrative* ProblemNoted Date Resolved DateCOVID-Hypermobility of joint04/07/2018 02/01/2021 Overview: Hypermobility of elbow joints; 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 [id number] of tobacco use documented as of this encounter (statuses as of 01/18/2022) [facility] of Past illness Narrative* ProblemNoted Date Resolved DateCOVID-//Hypermobility of joint04/07/2018 02/01/2021 Overview: Hypermobility of elbow joints; 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 [id number] of tobacco use documented as of this encounter (statuses as of 01/19/2022) [facility] of Past illness Narrative* ProblemNoted Date Resolved DateCOVID-//Hypermobility of joint04/07/2018 02/01/2021 Overview: Hypermobility of elbow joints; 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 [id number] of tobacco use documented as of this encounter (statuses as of 01/25/2022) [facility] of Past illness Narrative* ProblemNoted Date Resolved DateCOVID-Hypermobility of joint04/07/2018 02/01/2021 Overview: Hypermobility of elbow joints; 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 [id number] of tobacco use documented as of this encounter (statuses as of 01/26/2022) [facility] History of Past illness Narrative* ProblemNoted Date Resolved DateCOVID-/Hypermobility of joint04/07/2018 02/01/2021 Overview: Hypermobility of elbow joints; 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 [id number] of tobacco use documented as of this encounter (statuses as of 01/30/2022) [facility] of Past illness Narrative* ProblemNoted Date Resolved DateCOVID-Hypermobility of joint04/07/2018 02/01/2021 Overview: Hypermobility of elbow joints; 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 [id number] of tobacco use documented as of this encounter (statuses as of 02/01/2022) [facility] of Past illness Narrative* ProblemNoted Date Resolved DateCOVID-Hypermobility of joint04/07/2018 02/01/2021 Overview: Hypermobility of elbow joints; 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 [id number] of tobacco use documented as of this encounter (statuses as of 02/15/2022) [facility] History of Past illness Narrative* ProblemNoted Date Resolved DateCOVID-//Hypermobility of joint04/07/2018 02/01/2021 Overview: Hypermobility of elbow joints; 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 [id number] of tobacco use documented as of this encounter (statuses as of 02/16/2022) [facility] History of Past illness Narrative* ProblemNoted Date Resolved DateCOVID-//Hypermobility of joint04/07/2018 02/01/2021 Overview: Hypermobility of elbow joints; 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 byounvskqyt80History of tobacco use documented as of this encounter (statuses as of 02/16/2022) [facility] History of Past illness Narrative* ProblemNoted Date Resolved DateCOVID-//Hypermobility of joint04/07/2018 02/01/2021 Overview: Hypermobility of elbow joints; 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 [id number] of tobacco use documented as of this encounter (statuses as of 02/17/2022) [facility] History of Past illness Narrative* ProblemNoted Date Resolved DateCOVID-Hypermobility of joint04/07/2018 02/01/2021 Overview: Hypermobility of elbow joints; 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 [id number] of tobacco use documented as of this encounter (statuses as of 02/17/2022) [place] [address]-29-2020 History of Past illness Narrative* ProblemNoted Date Resolved DateCOVID-Hypermobility of joint04/07/2018 02/01/2021 Overview: Hypermobility of elbow joints; 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 tycrxxlcqvz41History of tobacco use documented as of this encounter (statuses as of 02/20/2022) [facility] of Past illness Narrative* ProblemNoted Date Resolved DateCOVID-Hypermobility of joint04/07/2018 02/01/2021 Overview: Hypermobility of elbow joints; 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 [id number] of tobacco use documented as of this encounter (statuses as of 02/21/2022) [facility] of Past illness Narrative* ProblemNoted Date Resolved DateCOVID-Hypermobility of joint04/07/2018 02/01/2021 Overview: Hypermobility of elbow joints; 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 [id number] of tobacco use documented as of this encounter (statuses as of 02/21/2022) [facility] of Past illness Narrative* ProblemNoted Date Resolved DateCOVID-/Hypermobility of joint04/07/2018 02/01/2021 Overview: Hypermobility of elbow joints; 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 [id number] of tobacco use documented as of this encounter (statuses as of 02/23/2022) [facility] of Past illness Narrative* ProblemNoted Date Resolved DateCOVID-/Hypermobility of joint04/07/2018 02/01/2021 Overview: Hypermobility of elbow joints; 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 [id number] of tobacco use documented as of this encounter (statuses as of 02/24/2022) [facility] of Past illness Narrative* ProblemNoted Date Resolved DateCOVID-//Hypermobility of joint04/07/2018 02/01/2021 Overview: Hypermobility of elbow joints; 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 vropmckkibw73History of tobacco use documented as of this encounter (statuses as of 02/24/2022) [facility] of Past illness Narrative* ProblemNoted Date Resolved DateCOVID-Hypermobility of joint04/07/2018 02/01/2021 Overview: Hypermobility of elbow joints; 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 [id number] of tobacco use documented as of this encounter (statuses as of 02/27/2022) [place] [address]-29-2020 History of Past illness Narrative* ProblemNoted Date Resolved DateCOVID-Hypermobility of joint04/07/2018 02/01/2021 Overview: Hypermobility of elbow joints; 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 [id number] of tobacco use documented as of this encounter (statuses as of 02/27/2022) [facility] Narrative* ProblemNoted Date Resolved DateCOVID-Hypermobility of joint04/07/2018 02/01/2021 Overview: Hypermobility of elbow joints; 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 [id number] of tobacco use documented as of this encounter (statuses as of 03/02/2022) [facility] of Past illness Narrative* ProblemNoted Date Resolved DateCOVID-Hypermobility of joint04/07/2018 02/01/2021 Overview: Hypermobility of elbow joints; 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 [id number] of tobacco use documented as of this encounter (statuses as of 03/07/2022) [facility] of Past illness Narrative* ProblemNoted Date Resolved DateCOVID-//Hypermobility of joint04/07/2018 02/01/2021 Overview: Hypermobility of elbow joints; 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 [id number] of tobacco use documented as of this encounter (statuses as of 03/07/2022) [facility] of Past illness Narrative* ProblemNoted Date Resolved DateCOVID-//Hypermobility of joint04/07/2018 02/01/2021 Overview: Hypermobility of elbow joints; 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 [id number] of tobacco use documented as of this encounter (statuses as of 03/08/2022) [facility] Past illness Narrative* ProblemNoted Date Resolved DateCOVID-//Hypermobility of joint04/07/2018 02/01/2021 Overview: Hypermobility of elbow joints; 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 [id number] of tobacco use documented as of this encounter (statuses as of 03/08/2022) [facility] of Past illness Narrative* ProblemNoted Date Resolved DateCOVID-Hypermobility of joint04/07/2018 02/01/2021 Overview: Hypermobility of elbow joints; 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 [id number] of tobacco use documented as of this encounter (statuses as of 03/08/2022) [facility] of Past illness Narrative* ProblemNoted Date Resolved DateCOVID-/Hypermobility of joint04/07/2018 02/01/2021 Overview: Hypermobility of elbow joints; 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 [id number] of tobacco use documented as of this encounter (statuses as of 03/09/2022) [facility] Past [facility] Narrative* ProblemNoted Date Resolved DateCOVID-Hypermobility of joint04/07/2018 02/01/2021 Overview: Hypermobility of elbow joints; 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 [id number] of tobacco use documented as of this encounter (statuses as of 03/10/2022) [facility] Narrative* ProblemNoted Date Resolved DateCOVID-Hypermobility of joint04/07/2018 02/01/2021 Overview: Hypermobility of elbow joints; 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 fkfmpyfjeiv11History of tobacco use documented as of this encounter (statuses as of 03/13/2022) [facility] Narrative* ProblemNoted Date Resolved DateCOVID-//Hypermobility of joint04/07/2018 02/01/2021 Overview: Hypermobility of elbow joints; 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 ludkawzcfqb66History of tobacco use documented as of this encounter (statuses as of 03/16/2022) [facility] Narrative* ProblemNoted Date Resolved DateCOVID-//Hypermobility of joint04/07/2018 02/01/2021 Overview: Hypermobility of elbow joints; 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 [id number] of tobacco use documented as of this encounter (statuses as of 03/18/2022) [facility] Narrative* ProblemNoted Date Resolved DateCOVID-//Hypermobility of joint04/07/2018 02/01/2021 Overview: Hypermobility of elbow joints; 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 [id number] of tobacco use documented as of this encounter (statuses as of 03/19/2022) [facility] Narrative* ProblemNoted Date Resolved DateCOVID-Hypermobility of joint04/07/2018 02/01/2021 Overview: Hypermobility of elbow joints; 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 eoxkqtdlfmz32History of tobacco use documented as of this encounter (statuses as of 03/21/2022) [facility] Narrative* ProblemNoted Date Resolved DateCOVID-/Hypermobility of joint04/07/2018 02/01/2021 Overview: Hypermobility of elbow joints; 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 [id number] of tobacco use documented as of this encounter (statuses as of 03/22/2022) [facility] Narrative* ProblemNoted Date Resolved DateCOVID-Hypermobility of joint04/07/2018 02/01/2021 Overview: Hypermobility of elbow joints; 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 [id number] of tobacco use documented as of this encounter (statuses as of 03/22/2022) [facility] Narrative* ProblemNoted Date Resolved DateCOVID-Hypermobility of joint04/07/2018 02/01/2021 Overview: Hypermobility of elbow joints; 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 [id number] of tobacco use documented as of this encounter (statuses as of 03/22/2022) [facility] Past illness Narrative* ProblemNoted Date Resolved DateCOVID-/Hypermobility of joint04/07/2018 02/01/2021 Overview: Hypermobility of elbow joints; 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 [id number] of tobacco use documented as of this encounter (statuses as of 03/23/2022) [facility] History of Past illness Narrative* ProblemNoted Date Resolved DateCOVID-//Hypermobility of joint04/07/2018 02/01/2021 Overview: Hypermobility of elbow joints; 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 [id number] of tobacco use documented as of this encounter (statuses as of 03/23/2022) [facility] History of Past illness Narrative* ProblemNoted Date Resolved DateCOVID-/Hypermobility of joint04/07/2018 02/01/2021 Overview: Hypermobility of elbow joints; 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 [id number] of tobacco use documented as of this encounter (statuses as of 03/23/2022) [facility] History of Past illness Narrative* ProblemNoted Date Resolved DateCOVID-/Hypermobility of joint04/07/2018 02/01/2021 Overview: Hypermobility of elbow joints; 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 [id number] of tobacco use documented as of this encounter (statuses as of 03/24/2022) [facility] History of Past illness Narrative* ProblemNoted Date Resolved DateCOVID-/Hypermobility of joint04/07/2018 02/01/2021 Overview: Hypermobility of elbow joints; 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 [id number] of tobacco use documented as of this encounter (statuses as of 03/24/2022) [facility] History of Past illness Narrative* ProblemNoted Date Resolved DateCOVID-/Hypermobility of joint04/07/2018 02/01/2021 Overview: Hypermobility of elbow joints; 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 [id number] of tobacco use documented as of this encounter (statuses as of 03/27/2022) [facility] History of Past illness Narrative* ProblemNoted Date Resolved DateCOVID-Hypermobility of joint04/07/2018 02/01/2021 Overview: Hypermobility of elbow joints; 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 [id number] of tobacco use documented as of this encounter (statuses as of 03/27/2022) [facility] History of Past illness Narrative* ProblemNoted Date Resolved DateCOVID-Hypermobility of joint04/07/2018 02/01/2021 Overview: Hypermobility of elbow joints; 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 [id number] of tobacco use documented as of this encounter (statuses as of 03/28/2022) [facility] History of Past illness Narrative* ProblemNoted Date Resolved DateCOVID-Hypermobility of joint04/07/2018 02/01/2021 Overview: Hypermobility of elbow joints; 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 [id number] of tobacco use documented as of this encounter (statuses as of 04/05/2022) [facility] History of Past illness Narrative* ProblemNoted Date Resolved DateCOVID-Hypermobility of joint04/07/2018 02/01/2021 Overview: Hypermobility of elbow joints; 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 [id number] of tobacco use documented as of this encounter (statuses as of 04/11/2022) [facility] History of Past illness Narrative* ProblemNoted Date Resolved DateCOVID-Hypermobility of joint04/07/2018 02/01/2021 Overview: Hypermobility of elbow joints; 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 [id number] of tobacco use documented as of this encounter (statuses as of 04/11/2022) [facility] History of Past illness Narrative* ProblemNoted Date Resolved DateCOVID-/Hypermobility of joint04/07/2018 02/01/2021 Overview: Hypermobility of elbow joints; 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 [id number] of tobacco use documented as of this encounter (statuses as of 04/12/2022) [facility] History of Past illness Narrative* ProblemNoted Date Resolved DateCOVID-/Hypermobility of joint04/07/2018 02/01/2021 Overview: Hypermobility of elbow joints; 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 [id number] of tobacco use documented as of this encounter (statuses as of 04/13/2022) [facility] History of Past illness Narrative* ProblemNoted Date Resolved DateCOVID-/Hypermobility of joint04/07/2018 02/01/2021 Overview: Hypermobility of elbow joints; 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 [id number] of tobacco use documented as of this encounter (statuses as of 04/13/2022) [facility] History of Past illness Narrative* ProblemNoted Date Resolved DateCOVID-/Hypermobility of joint04/07/2018 02/01/2021 Overview: Hypermobility of elbow joints; 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 [id number] of tobacco use documented as of this encounter (statuses as of 04/15/2022) [facility] History of Past illness Narrative* ProblemNoted Date Resolved DateCOVID-//Hypermobility of joint04/07/2018 02/01/2021 Overview: Hypermobility of elbow joints; 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 [id number] of tobacco use documented as of this encounter (statuses as of 04/19/2022) [facility] History of Past illness Narrative* ProblemNoted Date Resolved DateCOVID-/Hypermobility of joint04/07/2018 02/01/2021 Overview: Hypermobility of elbow joints; 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 [id number] of tobacco use documented as of this encounter (statuses as of 04/20/2022) [facility] History of Past illness Narrative* ProblemNoted Date Resolved DateCOVID-Hypermobility of joint04/07/2018 02/01/2021 Overview: Hypermobility of elbow joints; 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 [id number] of tobacco use documented as of this encounter (statuses as of 04/20/2022) [facility] History of Past illness Narrative* ProblemNoted Date Resolved DateCOVID-Hypermobility of joint04/07/2018 02/01/2021 Overview: Hypermobility of elbow joints; 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 [id number] of tobacco use documented as of this encounter (statuses as of 04/20/2022) [facility] History of Past illness Narrative* ProblemNoted Date Resolved DateCOVID-Hypermobility of joint04/07/2018 02/01/2021 Overview: Hypermobility of elbow joints; 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 [id number] of tobacco use documented as of this encounter (statuses as of 04/24/2022) [facility] History of Past illness Narrative* ProblemNoted Date Resolved DateCOVID-Hypermobility of joint04/07/2018 02/01/2021 Overview: Hypermobility of elbow joints; 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 [id number] of tobacco use documented as of this encounter (statuses as of 04/25/2022) [facility]2020 History of Past illness Narrative* ProblemNoted Date Resolved DateCOVID-//Hypermobility of joint04/07/2018 02/01/2021 Overview: Hypermobility of elbow joints; 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 [id number] of tobacco use documented as of this encounter (statuses as of 04/25/2022) [facility] History of Past illness Narrative* ProblemNoted Date Resolved DateCOVID-//Hypermobility of joint04/07/2018 02/01/2021 Overview: Hypermobility of elbow joints; 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 [id number] of tobacco use documented as of this encounter (statuses as of 04/27/2022) [facility] History of Past illness Narrative* ProblemNoted Date Resolved DateCOVID-//Hypermobility of joint04/07/2018 02/01/2021 Overview: Hypermobility of elbow joints; 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 [id number] of tobacco use documented as of this encounter (statuses as of 04/28/2022) [facility] History of Past illness Narrative* ProblemNoted Date Resolved DateCOVID-/Hypermobility of joint04/07/2018 02/01/2021 Overview: Hypermobility of elbow joints; 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 [id number] of tobacco use documented as of this encounter (statuses as of 05/02/2022) [facility] History of Past illness Narrative* ProblemNoted Date Resolved DateCOVID-/Hypermobility of joint04/07/2018 02/01/2021 Overview: Hypermobility of elbow joints; 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 [id number] of tobacco use documented as of this encounter (statuses as of 05/03/2022) [facility] History of Past illness Narrative* ProblemNoted Date Resolved DateCOVID-Hypermobility of joint04/07/2018 02/01/2021 Overview: Hypermobility of elbow joints; 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 [id number] of tobacco use documented as of this encounter (statuses as of 05/03/2022) [facility] History of Past illness Narrative* ProblemNoted Date Resolved DateCOVID-Hypermobility of joint04/07/2018 02/01/2021 Overview: Hypermobility of elbow joints; 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 [id number] of tobacco use documented as of this encounter (statuses as of 05/03/2022) [facility] History of Past illness Narrative* ProblemNoted Date Resolved DateCOVID-//Hypermobility of joint04/07/2018 02/01/2021 Overview: Hypermobility of elbow joints; 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 [id number] of tobacco use documented as of this encounter (statuses as of 05/04/2022) [facility]2020 History of Past illness Narrative* ProblemNoted Date Resolved DateCOVID-//Hypermobility of joint04/07/2018 02/01/2021 Overview: Hypermobility of elbow joints; 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 [id number] of tobacco use documented as of this encounter (statuses as of 05/08/2022) [facility]2020 History of Past illness Narrative* ProblemNoted Date Resolved DateCOVID-//Hypermobility of joint04/07/2018 02/01/2021 Overview: Hypermobility of elbow joints; 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 [id number] of tobacco use documented as of this encounter (statuses as of 05/09/2022) [facility] History of Past illness Narrative* ProblemNoted Date Resolved DateCOVID-/Hypermobility of joint04/07/2018 02/01/2021 Overview: Hypermobility of elbow joints; 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 [id number] of tobacco use documented as of this encounter (statuses as of 05/10/2022) [facility] History of Past illness Narrative* ProblemNoted Date Resolved DateCOVID-Hypermobility of joint04/07/2018 02/01/2021 Overview: Hypermobility of elbow joints; 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 [id number] of tobacco use documented as of this encounter (statuses as of 05/10/2022) [facility] History of Past illness Narrative* ProblemNoted Date Resolved DateCOVID-Hypermobility of joint04/07/2018 02/01/2021 Overview: Hypermobility of elbow joints; 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 [id number] of tobacco use documented as of this encounter (statuses as of 05/18/2022) [facility] History of Past illness Narrative* ProblemNoted Date Resolved DateCOVID-Hypermobility of joint04/07/2018 02/01/2021 Overview: Hypermobility of elbow joints; 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 [id number] of tobacco use documented as of this encounter (statuses as of 05/19/2022) [facility] History of Past illness Narrative* ProblemNoted Date Resolved DateCOVID-//Hypermobility of joint04/07/2018 02/01/2021 Overview: Hypermobility of elbow joints; 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 [id number] of tobacco use documented as of this encounter (statuses as of 05/26/2022) [facility] History of Past illness Narrative* ProblemNoted Date Resolved DateCOVID-//Hypermobility of joint04/07/2018 02/01/2021 Overview: Hypermobility of elbow joints; 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 [id number] of tobacco use documented as of this encounter (statuses as of 05/26/2022) [facility] History of Past illness Narrative* ProblemNoted Date Resolved DateCOVID-//Hypermobility of joint04/07/2018 02/01/2021 Overview: Hypermobility of elbow joints; 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 [id number] of tobacco use documented as of this encounter (statuses as of 05/26/2022) [facility] History of Past illness Narrative* ProblemNoted Date Resolved DateCOVID-/Hypermobility of joint04/07/2018 02/01/2021 Overview: Hypermobility of elbow joints; 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 [id number] of tobacco use documented as of this encounter (statuses as of 05/27/2022) [facility] History of Past illness Narrative* ProblemNoted Date Resolved DateCOVID-/Hypermobility of joint04/07/2018 02/01/2021 Overview: Hypermobility of elbow joints; 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 [id number] of tobacco use documented as of this encounter (statuses as of 06/01/2022) [facility] History of Past illness Narrative* ProblemNoted Date Resolved DateCOVID-Hypermobility of joint04/07/2018 02/01/2021 Overview: Hypermobility of elbow joints; 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 [id number] of tobacco use documented as of this encounter (statuses as of 06/02/2022) [facility] History of Past illness Narrative* ProblemNoted Date Resolved DateCOVID-Hypermobility of joint04/07/2018 02/01/2021 Overview: Hypermobility of elbow joints; 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 [id number] of tobacco use documented as of this encounter (statuses as of 06/06/2022) [facility] History of Past illness Narrative* ProblemNoted Date Resolved DateCOVID-//Hypermobility of joint04/07/2018 02/01/2021 Overview: Hypermobility of elbow joints; 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 [id number] of tobacco use documented as of this encounter (statuses as of 06/07/2022) [facility] History of Past illness Narrative* ProblemNoted Date Resolved DateCOVID-//Hypermobility of joint04/07/2018 02/01/2021 Overview: Hypermobility of elbow joints; 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 [id number] of tobacco use documented as of this encounter (statuses as of 06/09/2022) [facility] History of Past illness Narrative* ProblemNoted Date Resolved DateCOVID-//Hypermobility of joint04/07/2018 02/01/2021 Overview: Hypermobility of elbow joints; 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 [id number] of tobacco use documented as of this encounter (statuses as of 06/12/2022) [facility] History of Past illness Narrative* ProblemNoted Date Resolved DateCOVID-Hypermobility of joint04/07/2018 02/01/2021 Overview: Hypermobility of elbow joints; 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 [id number] of tobacco use documented as of this encounter (statuses as of 06/17/2022) [facility] History of Past illness Narrative* ProblemNoted Date Resolved DateCOVID-/Hypermobility of joint04/07/2018 02/01/2021 Overview: Hypermobility of elbow joints; 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 [id number] of tobacco use documented as of this encounter (statuses as of 06/19/2022) [facility] History of Past illness Narrative* ProblemNoted Date Resolved DateCOVID-Hypermobility of joint04/07/2018 02/01/2021 Overview: Hypermobility of elbow joints; 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 [id number] of tobacco use documented as of this encounter (statuses as of 06/19/2022) [facility] History of Past illness Narrative* ProblemNoted Date Resolved DateCOVID-Hypermobility of joint04/07/2018 02/01/2021 Overview: Hypermobility of elbow joints; 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 [id number] of tobacco use documented as of this encounter (statuses as of 06/20/2022) [facility] History of Past illness Narrative* ProblemNoted Date Resolved DateCOVID-//Hypermobility of joint04/07/2018 02/01/2021 Overview: Hypermobility of elbow joints; 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 [id number] of tobacco use documented as of this encounter (statuses as of 06/21/2022) [facility] History of Past illness Narrative* ProblemNoted Date Resolved DateCOVID-//Hypermobility of joint04/07/2018 02/01/2021 Overview: Hypermobility of elbow joints; 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 [id number] of tobacco use documented as of this encounter (statuses as of 06/27/2022) [facility] History of Past illness Narrative* ProblemNoted Date Resolved DateCOVID-//Hypermobility of joint04/07/2018 02/01/2021 Overview: Hypermobility of elbow joints; 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 [id number] of tobacco use documented as of this encounter (statuses as of 06/28/2022) [facility] History of Past illness Narrative* ProblemNoted Date Resolved DateCOVID-//Hypermobility of joint04/07/2018 02/01/2021 Overview: Hypermobility of elbow joints; 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 [id number] of tobacco use documented as of this encounter (statuses as of 07/21/2022) [facility] History of Past illness Narrative* ProblemNoted Date Resolved DateCOVID-/Hypermobility of joint04/07/2018 02/01/2021 Overview: Hypermobility of elbow joints; 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 [id number] of tobacco use documented as of this encounter (statuses as of 07/11/2022) [facility] History of Past illness Narrative* ProblemNoted Date Resolved DateCOVID-Hypermobility of joint04/07/2018 02/01/2021 Overview: Hypermobility of elbow joints; 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 [id number] of tobacco use documented as of this encounter (statuses as of 07/12/2022) [facility] History of Past illness Narrative* ProblemNoted Date Resolved DateCOVID-Hypermobility of joint04/07/2018 02/01/2021 Overview: Hypermobility of elbow joints; 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 [id number] of tobacco use documented as of this encounter (statuses as of 07/12/2022) [facility] History of Past illness Narrative* ProblemNoted Date Resolved DateCOVID-//Hypermobility of joint04/07/2018 02/01/2021 Overview: Hypermobility of elbow joints; 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 [id number] of tobacco use documented as of this encounter (statuses as of 07/13/2022) [facility] History of Past illness Narrative* ProblemNoted Date Resolved DateCOVID-/Hypermobility of joint04/07/2018 02/01/2021 Overview: Hypermobility of elbow joints; 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 [id number] of tobacco use documented as of this encounter (statuses as of 07/14/2022) [facility] History of Past illness Narrative* ProblemNoted Date Resolved DateCOVID-//Hypermobility of joint04/07/2018 02/01/2021 Overview: Hypermobility of elbow joints; 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 [id number] of tobacco use documented as of this encounter (statuses as of 07/17/2022) [facility] History of Past illness Narrative* ProblemNoted Date Resolved DateCOVID-//Hypermobility of joint04/07/2018 02/01/2021 Overview: Hypermobility of elbow joints; 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 [id number] of tobacco use documented as of this encounter (statuses as of 07/19/2022) [facility] History of Past illness Narrative* ProblemNoted Date Resolved DateCOVID-/Hypermobility of joint04/07/2018 02/01/2021 Overview: Hypermobility of elbow joints; 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 [id number] of tobacco use documented as of this encounter (statuses as of 08/01/2022) [facility] History of Past illness Narrative* ProblemNoted Date Resolved DateCOVID-/Hypermobility of joint04/07/2018 02/01/2021 Overview: Hypermobility of elbow joints; 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 [id number] of tobacco use documented as of this encounter (statuses as of 08/03/2022) [facility] History of Past illness Narrative* ProblemNoted Date Resolved DateCOVID-/Hypermobility of joint04/07/2018 02/01/2021 Overview: Hypermobility of elbow joints; 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 [id number] of tobacco use documented as of this encounter (statuses as of 08/07/2022) [facility] History of Past illness Narrative* ProblemNoted Date Resolved DateCOVID-/Hypermobility of joint04/07/2018 02/01/2021 Overview: Hypermobility of elbow joints; 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 [id number] of tobacco use documented as of this encounter (statuses as of 08/08/2022) [facility] History of Past illness Narrative* ProblemNoted Date Diagnosed DateResolved DateCOVID-//Hypermobility of joint Overview: Hypermobility of elbow joints; 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 [id number] of tobacco use documented as of this encounter (statuses as of 08/22/2022) [facility] History of Past illness Narrative* ProblemNoted Date Diagnosed DateResolved DateCOVID-//Hypermobility of joint Overview: Hypermobility of elbow joints; 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 [id number] of tobacco use documented as of this encounter (statuses as of 08/22/2022) [facility] History of Past illness Narrative* ProblemNoted Date Diagnosed DateResolved DateCOVID-Hypermobility of joint Overview: Hypermobility of elbow joints; 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 [id number] of tobacco use documented as of this encounter (statuses as of 08/29/2022) [facility] History of Past illness Narrative* ProblemNoted Date Diagnosed DateResolved DateCOVID-Hypermobility of joint Overview: Hypermobility of elbow joints; 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 [id number] of tobacco use documented as of this encounter (statuses as of 08/30/2022) [facility] History of Past illness Narrative* ProblemNoted Date Diagnosed DateResolved DateCOVID-Hypermobility of joint Overview: Hypermobility of elbow joints; 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 [id number] of tobacco use documented as of this encounter (statuses as of 09/04/2022) [facility]12-[facility]-2020 History of Past illness Narrative* ProblemNoted Date Diagnosed DateResolved DateCOVID-1912/29/Hypermobility of joint Overview: Hypermobility of elbow joints; 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 [id number] of tobacco use documented as of this encounter (statuses as of 09/07/2022) [facility]12-29-2020 History of Past illness Narrative* ProblemNoted Date Diagnosed DateResolved DateCOVID-/Hypermobility of joint Overview: Hypermobility of elbow joints; 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 [id number] of tobacco use documented as of this encounter (statuses as of 09/07/2022) [facility]12-[facility]-2020 History of Past illness Narrative* ProblemNoted Date Diagnosed DateResolved DateCOVID-Hypermobility of joint Overview: Hypermobility of elbow joints; 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 [id number] of tobacco use documented as of this encounter (statuses as of 09/11/2022) [facility]12-[facility]-2020 History of Past illness Narrative* ProblemNoted Date Diagnosed DateResolved DateCOVID-/Hypermobility of joint Overview: Hypermobility of elbow joints; 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 [id number] of tobacco use documented as of this encounter (statuses as of 09/13/2022) [facility]12-[facility]-2020 History of Past illness Narrative* ProblemNoted Date Diagnosed DateResolved DateCOVID-Hypermobility of joint Overview: Hypermobility of elbow joints; 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 [id number] of tobacco use documented as of this encounter (statuses as of 09/13/2022) [facility]12-[facility]-2020 History of Past illness Narrative* ProblemNoted Date Diagnosed DateResolved DateCOVID-Hypermobility of joint Overview: Hypermobility of elbow joints; 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 [id number] of tobacco use documented as of this encounter (statuses as of 09/14/2022) [facility]12-29-2020 History of Past illness Narrative* ProblemNoted Date Diagnosed DateResolved DateCOVID-/Hypermobility of joint Overview: Hypermobility of elbow joints; 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 [id number] of tobacco use documented as of this encounter (statuses as of 09/15/2022) [facility]12[facility]-2020 History of Past illness Narrative* ProblemNoted Date Diagnosed DateResolved DateCOVID-/Hypermobility of joint Overview: Hypermobility of elbow joints; 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 [id number] of tobacco use documented as of this encounter (statuses as of 09/16/2022) [facility]12[facility]-2020 History of Past illness Narrative* ProblemNoted Date Diagnosed DateResolved DateCOVID-/Hypermobility of joint Overview: Hypermobility of elbow joints; 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 [id number] of tobacco use documented as of this encounter (statuses as of 09/19/2022) [facility]12-29-2020 History of Past illness Narrative* ProblemNoted Date Diagnosed DateResolved DateCOVID-Hypermobility of joint Overview: Hypermobility of elbow joints; 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 [id number] of tobacco use documented as of this encounter (statuses as of 09/20/2022) [facility]12[facility]-2020 History of Past illness Narrative* ProblemNoted Date Diagnosed DateResolved DateCOVID-Hypermobility of joint Overview: Hypermobility of elbow joints; 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 [id number] of tobacco use documented as of this encounter (statuses as of 09/20/2022) [facility]12[facility]-2020 History of Past illness Narrative* ProblemNoted Date Diagnosed DateResolved DateCOVID-Hypermobility of joint Overview: Hypermobility of elbow joints; 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 [id number] of tobacco use documented as of this encounter (statuses as of 09/21/2022) [facility]12[facility]-2020 History of Past illness Narrative* ProblemNoted Date Diagnosed DateResolved DateCOVID-//Hypermobility of joint Overview: Hypermobility of elbow joints; 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 [id number] of tobacco use documented as of this encounter (statuses as of 09/22/2022) [facility]12-29-2020 History of Past illness Narrative* ProblemNoted Date Diagnosed DateResolved DateCOVID-//Hypermobility of joint Overview: Hypermobility of elbow joints; 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 [id number] of tobacco use documented as of this encounter (statuses as of 09/23/2022) [facility]12[facility]-2020 History of Past illness Narrative* ProblemNoted Date Diagnosed DateResolved DateCOVID-Hypermobility of joint Overview: Hypermobility of elbow joints; 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 [id number] of tobacco use documented as of this encounter (statuses as of 09/28/2022) [facility]12[facility]-2020 History of Past illness Narrative* ProblemNoted Date Diagnosed DateResolved DateCOVID-/Hypermobility of joint Overview: Hypermobility of elbow joints; 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 [id number] of tobacco use documented as of this encounter (statuses as of 09/29/2022) [facility]12[facility]2020 History of Past illness Narrative* ProblemNoted Date Diagnosed DateResolved DateCOVID-Hypermobility of joint Overview: Hypermobility of elbow joints; 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 [id number] of tobacco use documented as of this encounter (statuses as of 10/05/2022) [facility]12[facility]2020 History of Past illness Narrative* ProblemNoted Date Diagnosed DateResolved DateCOVID-Hypermobility of joint Overview: Hypermobility of elbow joints; 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 [id number] of tobacco use documented as of this encounter (statuses as of 10/05/2022) [facility]12[facility]-2020 History of Past illness Narrative* ProblemNoted Date Diagnosed DateResolved DateCOVID-Hypermobility of joint Overview: Hypermobility of elbow joints; 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 [id number] of tobacco use documented as of this encounter (statuses as of 10/05/2022) [facility]12-[facility]-2020 History of Past illness Narrative* ProblemNoted Date Diagnosed DateResolved DateCOVID-Hypermobility of joint Overview: Hypermobility of elbow joints; 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 [id number] of tobacco use documented as of this encounter (statuses as of 10/10/2022) [facility]12[facility]-2020 History of Past illness Narrative* ProblemNoted Date Diagnosed DateResolved DateCOVID-Hypermobility of joint Overview: Hypermobility of elbow joints; 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 [id number] of tobacco use documented as of this encounter (statuses as of 10/10/2022) [facility]12[facility]-2020 History of Past illness Narrative* ProblemNoted Date Diagnosed DateResolved DateCOVID-Hypermobility of joint Overview: Hypermobility of elbow joints; 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 [id number] of tobacco use documented as of this encounter (statuses as of 10/10/2022) [facility]12[facility]-2020 History of Past illness Narrative* ProblemNoted Date Diagnosed DateResolved DateCOVID-Hypermobility of joint Overview: Hypermobility of elbow joints; 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 [id number] of tobacco use documented as of this encounter (statuses as of 10/11/2022) [facility]12[facility]2020 History of Past illness Narrative* ProblemNoted Date Diagnosed DateResolved DateCOVID-Hypermobility of joint Overview: Hypermobility of elbow joints; 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 [id number] of tobacco use documented as of this encounter (statuses as of 10/12/2022) [facility]12[facility]2020 History of Past illness Narrative* ProblemNoted Date Diagnosed DateResolved DateCOVID-//Hypermobility of joint Overview: Hypermobility of elbow joints; 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 [id number] of tobacco use documented as of this encounter (statuses as of 10/13/2022) [facility]12[facility]2020 History of Past illness Narrative* ProblemNoted Date Diagnosed DateResolved DateCOVID-/Hypermobility of joint Overview: Hypermobility of elbow joints; 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 [id number] of tobacco use documented as of this encounter (statuses as of 10/17/2022) [facility]12[facility]2020 History of Past illness Narrative* ProblemNoted Date Diagnosed DateResolved DateCOVID-Hypermobility of joint Overview: Hypermobility of elbow joints; 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 [id number] of tobacco use documented as of this encounter (statuses as of 10/17/2022) [facility]12[facility]2020 History of Past illness Narrative* ProblemNoted Date Diagnosed DateResolved DateCOVID-/Hypermobility of joint Overview: Hypermobility of elbow joints; 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 [id number] of tobacco use documented as of this encounter (statuses as of 10/18/2022) [facility]12[facility]2020 History of Past illness Narrative* ProblemNoted Date Diagnosed DateResolved DateCOVID-Hypermobility of joint Overview: Hypermobility of elbow joints; 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 [id number] of tobacco use documented as of this encounter (statuses as of 10/18/2022) [facility]12[facility]2020 History of Past illness Narrative* ProblemNoted Date Diagnosed DateResolved DateCOVID-/Hypermobility of joint Overview: Hypermobility of elbow joints; 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 [id number] of tobacco use documented as of this encounter (statuses as of 10/19/2022) [facility]12[facility]2020 History of Past illness Narrative* ProblemNoted Date Diagnosed DateResolved DateCOVID-/Hypermobility of joint Overview: Hypermobility of elbow joints; 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 [id number] of tobacco use documented as of this encounter (statuses as of 10/19/2022) [place] [address]-29-2020 History of Past illness Narrative* ProblemNoted Date Diagnosed DateResolved DateCOVID-/Hypermobility of joint Overview: Hypermobility of elbow joints; 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 [id number] of tobacco use documented as of this encounter (statuses as of 10/23/2022) [facility]12[facility]2020 History of Past illness Narrative* ProblemNoted Date Diagnosed DateResolved DateCOVID-/Hypermobility of joint Overview: Hypermobility of elbow joints; 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 [id number] of tobacco use documented as of this encounter (statuses as of 10/26/2022) [facility]12[facility]2020 History of Past illness Narrative* ProblemNoted Date Diagnosed DateResolved DateCOVID-Hypermobility of joint Overview: Hypermobility of elbow joints; 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 [id number] of tobacco use documented as of this encounter (statuses as of 10/26/2022) [facility]12[facility]2020 History of Past illness Narrative* ProblemNoted Date Diagnosed DateResolved DateCOVID-/Hypermobility of joint Overview: Hypermobility of elbow joints; 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 [id number] of tobacco use documented as of this encounter (statuses as of 11/18/2022) [facility]12[facility]2020 History of Past illness Narrative* ProblemNoted Date Diagnosed DateResolved DateCOVID-Hypermobility of joint Overview: Hypermobility of elbow joints; 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 [id number] of tobacco use documented as of this encounter (statuses as of 11/18/2022) [facility]12[facility]2020 History of Past illness Narrative* ProblemNoted Date Diagnosed DateResolved DateCOVID-Hypermobility of joint Overview: Hypermobility of elbow joints; 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 [id number] of tobacco use documented as of this encounter (statuses as of 11/24/2022) [facility]12[facility]2020 History of Past illness Narrative* ProblemNoted Date Diagnosed DateResolved DateCOVID-/Hypermobility of joint Overview: Hypermobility of elbow joints; 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 [id number] of tobacco use documented as of this encounter (statuses as of 12/01/2022) [facility]12[facility]2020 History of Past illness Narrative* ProblemNoted Date Diagnosed DateResolved DateCOVID-Hypermobility of joint Overview: Hypermobility of elbow joints; 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 [id number] of tobacco use documented as of this encounter (statuses as of 12/04/2022) [facility]12[facility]2020 History of Past illness Narrative* ProblemNoted Date Diagnosed DateResolved DateCOVID-Hypermobility of joint Overview: Hypermobility of elbow joints; 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 [id number] of tobacco use documented as of this encounter (statuses as of 12/06/2022) [facility]12[facility]2020 History of Past illness Narrative* ProblemNoted Date Diagnosed DateResolved DateCOVID-Hypermobility of joint Overview: Hypermobility of elbow joints; 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 [id number] of tobacco use documented as of this encounter (statuses as of 12/07/2022) [facility]12[facility]2020 History of Past illness Narrative* ProblemNoted Date Diagnosed DateResolved DateCOVID-Hypermobility of joint Overview: Hypermobility of elbow joints; 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 [id number] of tobacco use documented as of this encounter (statuses as of 12/07/2022) [facility]12[facility]2020 History of Past illness Narrative* ProblemNoted Date Diagnosed DateResolved DateCOVID-/Hypermobility of joint Overview: Hypermobility of elbow joints; 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 [id number] of tobacco use documented as of this encounter (statuses as of 12/12/2022) [facility]2020 History of Past illness Narrative* ProblemNoted Date Diagnosed DateResolved DateCOVID-//Hypermobility of joint Overview: Hypermobility of elbow joints; 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 [id number] of tobacco use documented as of this encounter (statuses as of 12/14/2022) [facility]12[facility]2020 History of Past illness Narrative* ProblemNoted Date Diagnosed DateResolved DateCOVID-//Hypermobility of joint Overview: Hypermobility of elbow joints; 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 [id number] of tobacco use documented as of this encounter (statuses as of 12/14/2022) [facility]12[facility]2020 History of Past illness Narrative* ProblemNoted Date Diagnosed DateResolved DateCOVID-Hypermobility of joint Overview: Hypermobility of elbow joints; 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 [id number] of tobacco use documented as of this encounter (statuses as of 12/16/2022) [facility]12[facility]2020 History of Past illness Narrative* ProblemNoted Date Diagnosed DateResolved DateCOVID-Hypermobility of joint Overview: Hypermobility of elbow joints; 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 [id number] of tobacco use documented as of this encounter (statuses as of 12/16/2022) [facility]12[facility]2020 History of Past illness Narrative* ProblemNoted Date Diagnosed DateResolved DateCOVID-/Hypermobility of joint Overview: Hypermobility of elbow joints; 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 [id number] of tobacco use documented as of this encounter (statuses as of 12/21/2022) [facility]2020 History of Past illness Narrative* ProblemNoted Date Diagnosed DateResolved DateCOVID-/Hypermobility of joint Overview: Hypermobility of elbow joints; 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 [id number] of tobacco use documented as of this encounter (statuses as of 12/21/2022) [facility]2020 History of Past illness Narrative* ProblemNoted Date Diagnosed DateResolved DateCOVID-//Hypermobility of joint Overview: Hypermobility of elbow joints; 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 [id number] of tobacco use documented as of this encounter (statuses as of 12/22/2022) [facility] History of Past illness Narrative* ProblemNoted Date Diagnosed DateResolved DateCOVID-Hypermobility of joint Overview: Hypermobility of elbow joints; 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 [id number] of tobacco use documented as of this encounter (statuses as of 12/26/2022) [facility] History of Past illness Narrative* ProblemNoted Date Diagnosed DateResolved DateCOVID-/Hypermobility of joint Overview: Hypermobility of elbow joints; 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 [id number] of tobacco use documented as of this encounter (statuses as of 12/26/2022) [facility] History of Past illness Narrative* ProblemNoted Date Diagnosed DateResolved DateCOVID-/Hypermobility of joint Overview: Hypermobility of elbow joints; 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 [id number] of tobacco use documented as of this encounter (statuses as of 01/02/2023) [facility] History of Past illness Narrative* ProblemNoted Date Diagnosed DateResolved DateCOVID-/Hypermobility of joint Overview: Hypermobility of elbow joints; 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 [id number] of tobacco use documented as of this encounter (statuses as of 01/10/2023) [facility] History of Past illness Narrative* ProblemNoted Date Diagnosed DateResolved DateCOVID-/Hypermobility of joint Overview: Hypermobility of elbow joints; 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 [id number] of tobacco use documented as of this encounter (statuses as of 01/19/2023) [facility] History of Past illness Narrative* ProblemNoted Date Diagnosed DateResolved DateCOVID-Hypermobility of joint Overview: Hypermobility of elbow joints; 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 [id number] of tobacco use documented as of this encounter (statuses as of 01/26/2023) [facility] History of Past illness Narrative* ProblemNoted Date Diagnosed DateResolved DateCOVID-Hypermobility of joint Overview: Hypermobility of elbow joints; 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 [id number] of tobacco use documented as of this encounter (statuses as of 03/16/2023) [facility]2020 History of Past illness Narrative* ProblemNoted Date Diagnosed DateResolved DateCOVID-Hypermobility of joint Overview: Hypermobility of elbow joints; 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 [id number] of tobacco use documented as of this encounter (statuses as of 03/20/2023) [facility]2020 History of Past illness Narrative* ProblemNoted Date Diagnosed DateResolved DateCOVID-Hypermobility of joint Overview: Hypermobility of elbow joints; 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 [id number] of tobacco use documented as of this encounter (statuses as of 03/23/2023) [facility] History of Past illness Narrative* ProblemNoted Date Resolved DateHypermobility of joint Overview: Hypermobility of elbow joints; 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 [id number] of tobacco use documented as of this encounter (statuses as of 05/18/2021) [place] [address]-24-2019 History of Past illness Narrative* ProblemNoted Date Resolved DateHypermobility of joint Overview: Hypermobility of elbow joints; 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 [id number] of tobacco use documented as of this encounter (statuses as of 05/19/2021) [facility] History of Past illness Narrative* ProblemNoted Date Resolved DateHypermobility of joint Overview: Hypermobility of elbow joints; 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 [id number] of tobacco use documented as of this encounter (statuses as of 05/24/2021) [facility] History of Past illness Narrative* ProblemNoted Date Resolved DateHypermobility of joint Overview: Hypermobility of elbow joints; 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 [id number] of tobacco use documented as of this encounter (statuses as of 05/27/2021) [facility] History of Past illness Narrative* ProblemNoted Date Resolved DateHypermobility of joint Overview: Hypermobility of elbow joints; 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 [id number] of tobacco use documented as of this encounter (statuses as of 05/27/2021) [facility] History of Past illness Narrative* ProblemNoted Date Resolved DateHypermobility of joint Overview: Hypermobility of elbow joints; 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 [id number] of tobacco use documented as of this encounter (statuses as of 05/31/2021) [facility] History of Past illness Narrative* ProblemNoted Date Resolved DateHypermobility of joint Overview: Hypermobility of elbow joints; 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 [id number] of tobacco use documented as of this encounter (statuses as of 05/31/2021) [facility] History of Past illness Narrative* ProblemNoted Date Resolved DateHypermobility of joint Overview: Hypermobility of elbow joints; 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 [id number] of tobacco use documented as of this encounter (statuses as of 05/31/2021) [facility]02-24-2019 History of Past illness Narrative* ProblemNoted Date Resolved DateHypermobility of joint Overview: Hypermobility of elbow joints; 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 [id number] of tobacco use documented as of this encounter (statuses as of 06/01/2021) [facility] History of Past illness Narrative* ProblemNoted Date Resolved DateHypermobility of joint Overview: Hypermobility of elbow joints; 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 [id number] of tobacco use documented as of this encounter (statuses as of 06/01/2021) [facility]2019 History of Past illness Narrative* ProblemNoted Date Resolved DateHypermobility of joint Overview: Hypermobility of elbow joints; 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 [id number] of tobacco use documented as of this encounter (statuses as of 06/03/2021) [facility]2019 History of Past illness Narrative* ProblemNoted Date Resolved DateHypermobility of joint Overview: Hypermobility of elbow joints; 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 [id number] of tobacco use documented as of this encounter (statuses as of 06/07/2021) [facility]2019 History of Past illness Narrative* ProblemNoted Date Resolved DateHypermobility of joint Overview: Hypermobility of elbow joints; 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 [id number] of tobacco use documented as of this encounter (statuses as of 06/07/2021) [place] [id number] History of Past illness Narrative* ProblemNoted Date Resolved DateHypermobility of joint Overview: Hypermobility of elbow joints; 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 [id number] of tobacco use documented as of this encounter (statuses as of 06/21/2021) [facility] History of Past illness Narrative* ProblemNoted Date Resolved DateHypermobility of joint Overview: Hypermobility of elbow joints; 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 [id number] of tobacco use documented as of this encounter (statuses as of 06/24/2021) [place] [id number] History of Past illness Narrative* ProblemNoted Date Resolved DateHypermobility of joint Overview: Hypermobility of elbow joints; 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 [id number] of tobacco use documented as of this encounter (statuses as of 06/24/2021) [facility] History of Past illness Narrative* ProblemNoted Date Resolved DateHypermobility of joint Overview: Hypermobility of elbow joints; 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 [id number] of tobacco use documented as of this encounter (statuses as of 06/27/2021) [facility]2019 History of Past illness Narrative* ProblemNoted Date Resolved DateHypermobility of joint Overview: Hypermobility of elbow joints; 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 [id number] of tobacco use documented as of this encounter (statuses as of 07/04/2021) [facility]2019 History of Past illness Narrative* ProblemNoted Date Resolved DateHypermobility of joint Overview: Hypermobility of elbow joints; 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 [id number] of tobacco use documented as of this encounter (statuses as of 07/14/2021) [place] [address]-2019 History of Past illness Narrative* ProblemNoted Date Resolved DateHypermobility of joint Overview: Hypermobility of elbow joints; 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 [id number] of tobacco use documented as of this encounter (statuses as of 07/14/2021) [facility]2019 History of Past illness Narrative* ProblemNoted Date Resolved DateHypermobility of joint Overview: Hypermobility of elbow joints; 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 [id number] of tobacco use documented as of this encounter (statuses as of 07/19/2021) [facility]2019 History of Past illness Narrative* ProblemNoted Date Resolved DateHypermobility of joint Overview: Hypermobility of elbow joints; 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 [id number] of tobacco use documented as of this encounter (statuses as of 07/19/2021) [facility]2019 History of Past illness Narrative* ProblemNoted Date Resolved DateHypermobility of joint Overview: Hypermobility of elbow joints; 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 [id number] of tobacco use documented as of this encounter (statuses as of 07/19/2021) [facility]2019 History of Past illness Narrative* ProblemNoted Date Resolved DateHypermobility of joint Overview: Hypermobility of elbow joints; 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 [id number] of tobacco use documented as of this encounter (statuses as of 07/22/2021) [facility] History of Past illness Narrative* ProblemNoted Date Resolved DateHypermobility of joint Overview: Hypermobility of elbow joints; 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 [id number] of tobacco use documented as of this encounter (statuses as of 07/27/2021) [facility] History of Past illness Narrative* ProblemNoted Date Resolved DateHypermobility of joint Overview: Hypermobility of elbow joints; 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 [id number] of tobacco use documented as of this encounter (statuses as of 08/02/2021) [facility] History of Past illness Narrative* ProblemNoted Date Resolved DateHypermobility of joint Overview: Hypermobility of elbow joints; 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 [id number] of tobacco use documented as of this encounter (statuses as of 08/08/2021) [facility] History of Past illness Narrative* ProblemNoted Date Resolved DateHypermobility of joint Overview: Hypermobility of elbow joints; 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 [id number] of tobacco use documented as of this encounter (statuses as of 08/11/2021) [facility]2019 History of Past illness Narrative* ProblemNoted Date Resolved DateHypermobility of joint Overview: Hypermobility of elbow joints; 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 [id number] of tobacco use documented as of this encounter (statuses as of 08/15/2021) [facility]2019 History of Past illness Narrative* ProblemNoted Date Resolved DateHypermobility of joint Overview: Hypermobility of elbow joints; 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 [id number] of tobacco use documented as of this encounter (statuses as of 08/16/2021) [facility]2019 History of Past illness Narrative* ProblemNoted Date Resolved DateHypermobility of joint Overview: Hypermobility of elbow joints; 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 [id number] of tobacco use documented as of this encounter (statuses as of 08/16/2021) [facility]2019 History of Past illness Narrative* ProblemNoted Date Resolved DateHypermobility of joint Overview: Hypermobility of elbow joints; 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 [id number] of tobacco use documented as of this encounter (statuses as of 08/25/2021) [facility]2019 History of Past illness Narrative* ProblemNoted Date Resolved DateHypermobility of joint Overview: Hypermobility of elbow joints; 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 [id number] of tobacco use documented as of this encounter (statuses as of 08/28/2021) [facility]2019 History of Past illness Narrative* ProblemNoted Date Resolved DateHypermobility of joint Overview: Hypermobility of elbow joints; 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 [id number] of tobacco use documented as of this encounter (statuses as of 08/29/2021) [facility] History of Past illness Narrative* ProblemNoted Date Resolved DateHypermobility of joint Overview: Hypermobility of elbow joints; 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 [id number] of tobacco use documented as of this encounter (statuses as of 08/31/2021) [facility] History of Past illness Narrative* ProblemNoted Date Resolved DateHypermobility of joint Overview: Hypermobility of elbow joints; 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 [id number] of tobacco use documented as of this encounter (statuses as of 09/01/2021) [facility] History of Past illness Narrative* ProblemNoted Date Resolved DateHypermobility of joint Overview: Hypermobility of elbow joints; 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 [id number] of tobacco use documented as of this encounter (statuses as of 09/07/2021) [facility]2019 History of Past illness Narrative* ProblemNoted Date Resolved DateHypermobility of joint Overview: Hypermobility of elbow joints; 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 Gait [id number] of tobacco use documented as of this encounter (statuses as of 09/07/2021) [facility]2019 History of Past illness Narrative* ProblemNoted Date Resolved DateHypermobility of joint Overview: Hypermobility of elbow joints; 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 [id number] of tobacco use documented as of this encounter (statuses as of 09/13/2021) [facility]2019 History of Past illness Narrative* ProblemNoted Date Resolved DateHypermobility of joint Overview: Hypermobility of elbow joints; 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 [id number] of tobacco use documented as of this encounter (statuses as of 09/20/2021) [facility] History of Past illness Narrative* ProblemNoted Date Resolved DateHypermobility of joint Overview: Hypermobility of elbow joints; 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 [id number] of tobacco use documented as of this encounter (statuses as of 09/21/2021) [facility]2019 History of Past illness Narrative* ProblemNoted Date Resolved DateHypermobility of joint Overview: Hypermobility of elbow joints; 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 [id number] of tobacco use documented as of this encounter (statuses as of 09/25/2021) [facility]2019 History of Past illness Narrative* ProblemNoted Date Resolved DateHypermobility of joint Overview: Hypermobility of elbow joints; 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 [id number] of tobacco use documented as of this encounter (statuses as of 10/03/2021) [facility]2019 History of Past illness Narrative* ProblemNoted Date Resolved DateHypermobility of joint Overview: Hypermobility of elbow joints; 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 [id number] of tobacco use documented as of this encounter (statuses as of 10/10/2021) [facility]2019 History of Past illness Narrative* ProblemNoted Date Resolved DateHypermobility of joint Overview: Hypermobility of elbow joints; 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 [id number] of tobacco use documented as of this encounter (statuses as of 10/12/2021) [facility]2019 History of Past illness Narrative* ProblemNoted Date Resolved DateHypermobility of joint Overview: Hypermobility of elbow joints; 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 [id number] of tobacco use documented as of this encounter (statuses as of 10/13/2021) [facility]2019 History of Past illness Narrative* ProblemNoted Date Resolved DateHypermobility of joint Overview: Hypermobility of elbow joints; 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 [id number] of tobacco use documented as of this encounter (statuses as of 10/14/2021) [facility]2019 History of Past illness Narrative* ProblemNoted Date Resolved DateHypermobility of joint Overview: Hypermobility of elbow joints; 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 [id number] of tobacco use documented as of this encounter (statuses as of 10/18/2021) [facility] History of Past illness Narrative* ProblemNoted Date Resolved DateHypermobility of joint Overview: Hypermobility of elbow joints; able to bend forward at waist and palm floor Gait [id number] of tobacco use documented as of this encounter (statuses as of 10/18/2021) [facility] complaint+Reason for visit Narrative* Chief Complaint follow up Amb Documentation Follow up r/sReason for VisitCOVID-19 long hauler POTS (postural orthostatic tachycardia syndrome) Left thigh pain [facility] Work Phone: Chief complaint+Reason for visit Narrative* Chief Complaint Follow up r/s Amb Documentation B12 shotReason for VisitAnxiety COVID-19 long hauler POTS (postural orthostatic tachycardia syndrome) [facility] Work Phone: Discharge summary Author Jose Antonio tate [facility] September 15, 2022 9:47amNote Date/TimeAugust 2022 7:[place] [address] Discharge Summary Signed Patient: Yolanda Aparicio MR#: [id number] : 1995 Acct:[id number] Age/Sex: 27 / F Adm Date: 3 Loc: 1S Room: 5V1883-[address]: Annalise Jerez MD Copies to: MD Misha Tenorio,DO~ Providers Date of Discharge: 09/15/22 Discharging Provider: Annalise Jerez Primary Care Provider: Misha Sy Discharge Diagnosis (1) Suicidal ideation: (2) Mood disorder: (3) Generalized anxiety disorder: Final Diagnosis Final Discharge Diagnosis: Mood disorder ROSEM ARIE Rule out BPD Summary Hospital Course Hospital course: This is a 27-year-old female with reported history of depression who presents for inpatient admission due to worsening of feelings of suicidal ideation. Reportedly at admission, patient had just learned she lost a long legal cheek with her former employer and this made her very upset and hopeless.?When she spoke with her provider from [facility] yesterday morning virtually, she reportedly endorsed SI with a plan to over dose on xanax.?After the appointment the provider called 911 to do awellness check and she was then pink slipped. Patient was personally seen by me on the day of the encounter.? I reviewed the history and performed the pepe elements of the assessment.? I formulated the planof care and confirmed this with the resident as noted below This is a 27-year-old female with a reproted history of PTSD, ARAYA syndrome, long COVID syndrome and migraine headache who presents for inpatient admission after making suicidal statements. Reportedly, patient had communicated with her outpatient HALL COORDINATOR via the [employer] [facility] Yolanda stating that she is having thoughts about but no plan. At the time of the interview Yolanda presented as frustrated, angry, and tearful.? She said she is going to diana every single constitution party that was involved in this case. She reports a longstanding history ofdepression which is worsened byher chronic illnesses, being disabled, and recent legal battles and life stressors. She states that she messaged her doctors saying she wanted to but did not want to hurt herself , and states that they misconstrued what she told them. It was also reported to us that she made suicidal comment and mentioned overdosing on her Benzos. Patient said she said I will take my benzo to go to sleep. Since being on the inpatient unit she has been frustrated with staff despite nursing treating her kindness and explaining unit protocol. She was frustrated by the fact that her medications were being withheld, but denied currently feeling depressed or anxious. She gave mixed messages about hermeds insisting that she has been taking 500 mg PO BID of Gabapentin despite OARRS showing otherwise. She also claims that she was taking Tizanidine and Metoproplol.? She states that she is a COVID long-hauler and that her hospitalstay has exacerbated her symptoms in relation to this and to her pre-syncope. She admits to feeling angry after the most recent workman case with [employer]. She is worried about financial stressors and noted that inpatient hospitalization worsens her psychiatric symptoms. She denied previous suicide attempts or psychiatric hospitalizations. It is important to mention thatpatient was pink slipped as she made comments about wanting to , taking her Benzodiazepines and going to sleep which she did not deny. Patient did provide consent to communicate with her providers. Collateral information was obtained from her HALL COORDINATOR (Jaskaran) at the [facility] who reported that hereceived a message about patient's wanting to and had no plans. He said they had tried to call her multiple times with no answer. Theywere very concerned about her as they know the patient has been struggling with severe anxiety and ongoing psychosocial stressors. It is the [facility] protocol to notify their police department in such case [facility]. The [place] [employer] then informed the [facility] police that patient made a comment about taking her Benzodiazepine script and going to sleep. She was taken to the ER to evaluate r isk of suicide which is expected and recommended in such cases to ensure safetyof self. At the ER, patient was unable to safety plan with any family member andwas pink slipped to 1s. The HALL COORDINATOR informed me that patient has been taking Metoprolol 12.5 mg PO Q daily and 25 mg PO QHS from an old script. He agreed that there was no recent script for Metoprolol. HALL COORDINATOR said patient has not been taking Tizanidine or Meclizine but was prescribed both meds in the past. He reviewed neurology charts which indicate that patient should take 500 mg of Gabapentin BID but found that only 200 mg PO BID was filled bya fellow neurologist at the Clinic. He is unable to confirm if the patient was actually taking 500 mg PO BID as he realizes that recommendation is not supported by a script. OARRS show that last script of gabapentin 300 mg was sent Dec 2021. Collateral information was also obtained from her treating psychologist who indicated that patient struggles with anxiety and PTSD. She believe that her symptoms might have started prior to having a COVID infection. She said patient has a good therapeutic alliance with her and will actually schedule her for thisMonday 5 pm. She does not believe that patient pose an acute risk of harm given her knowledge of the case but realizes that patient comments needs to be evaluated. She believes that patient has strained relationship with the family but her mom may be still involved with her and can safety plan. Psychologist saidpatient has no previous suicide attempts or psychiatric hospitalization. Vignesh cannon denied any access to guns. Psychologist mentioned that patient demonstrates signs of BPD and narcissism but she is in the process of evaluating this and hasnot made a formal diagnosis. Psychologist mentioned that patient saw Dr. Liliane Delong who is a psychiatrist at the [facility] whoprescribed antidepressantsand Modafinil which did not help. Patient mentioned that Modafinil? was prescribed to help with fatigue induced by Long Covid syndrome but the medication caused delusions and hallucinations. Psychologist said that patient did not build therapeutic rapport with Dr. Liliane Delong as the psychiatrist suggested a personality disorder. Past psych history: She reports following with Dr. Judy Gamez regularly for PTSD. Patient refuses to sign records release form, so contact cannot be made with Dr. Gamez at this time. Past hospitalizations: Patient denies. Past suicide attempts: Patient denies. Family psych history: Patient reports her mother has a history of depression and that her father has a history of depression and alcoholism. Previous medications: Patient reports previously taking metoprolol, NaCl, meclizine, zofran, gabapentin, tizanidine. The course of treatment: The patient presented initially as frustrated and angry. She reported that she was having a rough day after losing a lawsuit against [facility] [facility] [employer]. She believes that her PTSD symptoms and anxiety started in the context of a COVID illness and prevented her from pursuing her dreams as she wanted to become a nurse. She said she needed money and has been struggling since losing the lawsuit. She said she is planning to diana everyone involved in her psychiatric admission and requested tospeak to the clients advocate the first day she was admitted. She was provided with all the resources and information needed to help her feel more comfortable during her stay. She said she did not need any medication adjustments and was comfortable following up with her psychotherapist. She admitted to making statements related to hopelessness and passive wishes of . She also noted that she told the police captain precinct that she can take her benzodiazepines to fall asleep. She does not believe that this statement is a suicidal statement. Collateral information obtained from her therapist indicated that the patient has a longstanding history of PTSD and anxiety. The therapist also felt that the patient has borderline traits and narcissistic personality traits but wasin theprocess of evaluating the differential diagnosis. Treatment team took the time reviewing collateral information and discussing hercase. Patient requested leaving against AMA and did not meet criteria for further involuntary psychiatric stay especially after her mother indicated that she is able to safety plan. I discussed with the patient that herstatements ISconsidered suicidal risk psychiatric evaluation at an inpatient setting was clinical and legally indicated. [facility] providers also agreed with thisassessment. Ms. Aparicio understands the importance of outpatient follow-up to ensure the stability of her symptoms. She denied suicidal or homicidal ideation and verbalized the intent to notify the staff if she has such thoughts. No suicidal or self-injurious behaviors occurred during inpatient treatment. She said her mom can safety plan with her and can pick her up at the time of discharge which we verified. She requested discharge AGAINST MEDICAL ADVICE as she believes she will only benefit for outpatient follow up. I explained to the patient that her discharge from the hospital does not mean thather medical care ends here. She needs consistent outpatient follow-up, cognitive behavioral therapy, and should communicate from this point on with her outpatient team. Ms. Aparicio's illness, medication side effects, benefits and risks were reviewed with her prior to discharge. The patient voiced understanding of their diagnosis, the medications recommended along with the importance of medication compliance. The patient was counseled not to stop medications without the supervision of a psychiatrist. The patient was counseled that if there was an increase in mental health issues, depression, anxiety, medication side effects, self harm or thoughts of harm to others, the patient was not to harm them self or stop treatment, but to call [facility] or [facility] the nearest emergency room. The patient also received information regarding advanced mental and medical health directives during this hospitalization to discuss with their outpatient provider. Theplan was discussed with the patient, the nurses and thecase management department. She has an appointment with Dr. Gamez, [facility] psychologist on Sunday at 5 PM Discharge disposition: Home with mom. Coordinated via case management. Safe discharge Planning: With the cessation of all suicidal ideation, improvements in mood, and absence of any psychotic symptoms at the time of discharge, aftercare plans were solidified. She requested to be discharged AGAINST MEDICAL ADVICE. Discharge plans were discussed with the patient, her family, and the treatment team. All agreed with the discharge plan. On the day of discharge, she was evaluated and had no complaints. She denied any SI/HI. She agreed to follow up with outpatient treatment at the [facility]. She had no complications during her stay. Suicide risk assessment: A thorough review of risk and protective factors was conducted. Discussed with the patient the following recommendations that would help reduce suicide which includes stayingwith her family at the time of discharge, consistent outpatient follow up preferably within seven days of release, involving family members in her care, and her desire to live. We also discussed availability of outpatient DBT groups which can be lifesaving. She reports good therapeutic alliance with her outpatient therapist, good response to medication management and therapy, availability of local mental health services and willingness to follow up, lack of suicidal ideation, intent or plan, lack of impulsivity, agitation, or psychotic behavior. Pt understands the importance of outpatient follow-up. Psychiatric experts agree that predicting suicide is impossible but considering positive factors like family and laureano, lack of access to firearms, and desire to continue treatment makes her current suicide risk minimal. Given the chronicity of suicidality, we discussed measures to help her with long-term safety. The patient is not suicidal or psychotic now. To help decreaseher suicide risk, as best I can, I am referring her for outpatient treatment andCBT for long-term follow-up to have somewhere to go and someoneto manage her assymptoms and stressors develop. This is the best way to keep her alive. So, we discussed a crisis plan for future suicidality: at the first sign of distress, she will call the hotline; if this is not sufficient, she will 911, then call family members or friends; ultimately, she willcome to the ER. Safety: The patient is not acutely psychotic and is safe to continue treatment on an outpatient basis. The patient was made aware of the 04/09 emergency services of the crisis center. She was advised to call 911 or go to the nearest ER in case of a crisis ( (including having thoughts of harming herself or others). Risks (metabolic, EPS, the effect on heart), benefits, and alternatives for medications were discussed. She verbalized understanding. Her consent was obtained. She was advised not to drink alcohol while taking medications. I advised patientthat using drugs can increase risk of impulsiveness and making poor decisions. Continue supportive therapy with some CBT techniques. Psycho-education and compliance counseling were provided. She denies current and is aware to notify her psychiatrist if she becomes due tothe risk of harm to the fetus. MSE: Orientation: Alert and oriented to person, place, and time. Appearance/Behavior: Fair grooming and hygiene, calm, cooperative, engaged in the interview. Good eye contact. Normal psychomotor activity. Speech: normal rate, rhythm, volume, and tone. Non pressured. Knowledge: Appropriate for age and level of education Mood: okay Affect: reactive, mood-congruent Thought process: linear, logical, and goal-oriented Thought content: No SI/HI. No AVH. No delusions. Does not appear to be responding to internal stimuli. Concentration: Grossly intact based on track during the interview Associations: No loosening of associations Memory: Able to recall recent and remote historical information Insight: Fair, able to appreciate current symptoms and need for outpatient treatment Judgment: fair, agreed to follow treatment recommendations, socially appropriate with interviewer and staff. Time spent discussing smoking cessation with patient: more than 10 minutes Condition Condition at Discharge: Stable Status at Discharge Functional status at discharge: independent ambulation Time Spent with Patient Time spent providing/coordinating discharge services (# min): 89 Diagnostic Studies Completed and Pending Studies Pending studies at discharge: 09/13/22 13:02 Urine Culture Stat Preliminary micro results at discharge 09/13/22 13:02 Urine Culture - Preliminary Urine - Clean-Voided Midstream <9,000 colonies/ml mixed bacterial skin contaminants 1 Day Labs on day of discharge: 09/14/22 06:29: Triglycerides 112, Cholesterol 190, LDL Cholesterol, Calc 134 H,VLDL Cholesterol 22, HDL Cholesterol 34, Cholesterol/HDL Ratio 5.6, 25-OH Vitamin D Total 37.9, TSH 3rd Generation 1.22 Exam Physical Exam Vital Signs: Temp Pulse Resp BP Pulse Ox O2 Del Method 97.8 F 64 16 110/70 98 Room Air 09/14/22 23:20 09/14/22 23:20 09/14/22 23:20 09/14/22 23:20 09/14/22 23:20 09/14/22 23:20 Discharge Plan Discharge Plan Patient Disposition: Against Medical Advice Activity: No Activity Restriction Diet: Regular Additional Instructions: Regular Diet No Activity Restrictions Instructions: Anxiety, Adult (DC), Suicide Prevention, [facility] [place] Instructions Prescriptions: New metoprolol tartrate 25 mg Tablet 12.5 mg PO DAILY 0RF metoprolol tartrate 25 mg Tablet 25 mg PO HS 0RF Continued hydroxyzine HCl 10 mg tablet 10 mg PO DAILY Patient Comments: TAKE 1 TABLET BY MOUTH THREE TIMES A DAY NEEDED gabapentin 100 mg capsule 200 mg PO BID Patient Comments: TAKE 2 CAPSULES BY MOUTH TWICE DAILY (TAKE WITH 300 MG CAPSULE) sodium chloride 1,000 mg tablet,soluble 1,000 mg PO TID Follow Up: Judy Gamez-Psychologist [Other] (You are leaving against medical advice, Please keep any previous appointments, if you do not have any please contact to schedule.) [facility] Hotline [Outside] Misha Sy, [Primary Care Provider] - (Call for follow up with this provider as needed for any medical needs. ) Documented By: Jose Antonio Jerez MD [id number] Signed By: <Electronically signed by Jose Antonio Jerez MD> 09/15/22 0947 [facility] Work Phone: Evaluation note* Diagnosis POTS (postural orthostatic tachycardia syndrome)- Primary Tachycardia, unspecified [facility] [place] [facility]* Diagnosis PTSD (post-traumatic stress disorder)- Primary Posttraumatic stress disorder Generalized anxiety disorder Adjustment disorder with depressed mood POTS (postural orthostatic tachycardia syndrome) Tachycardia, unspecified Post-acute 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) documented in this encounter [facility] note* Diagnosis Obesity, Class I, BMI 30-34.9- Primary Obesity, unspecified Dietary counseling Dietary surveillance and counseling documented in this encounter [facility] note* Diagnosis POTS (postural orthostatic tachycardia syndrome)- Primary Tachycardia, unspecified Orthostatic lightheadedness Dizziness and giddiness Tachycardia Tachycardia, unspecified documented in this encounter [facility] note* Diagnosis POTS (postural orthostatic tachycardia syndrome)- Primary Tachycardia, unspecified documented in this encounter [facility] note* Diagnosis Post-acute 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)- Primary POTS (postural orthostatic tachycardia syndrome) Tachycardia, unspecified Cognitive deficits Unspecified persistent mental disorders due to conditions classified elsewhere Generalized anxiety disorder Adjustment disorder with depressed mood documented in this encounter [facility] note* Diagnosis Post-acute 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)- Primary documented in this encounter [facility] note* Diagnosis POTS (postural orthostatic tachycardia syndrome)- Primary Tachycardia, unspecified Orthostatic lightheadedness Dizziness and giddiness Tachycardia Tachycardia, unspecified documented in this encounter [facility] note* Diagnosis PTSD (post-traumatic stress disorder)- Primary Posttraumatic stress disorder Generalized anxiety disorder Adjustment disorder with depressed mood POTS (postural orthostatic tachycardia syndrome) Tachycardia, unspecified Post-acute 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) documented in this encounter [facility] note* Diagnosis Obesity, Class I, BMI 30-34.9- Primary Obesity, unspecified Dietary counseling Dietary surveillance and counseling documented in this encounter [facility] noteNo Information[employer] Other Evaluation [email or web address] Other Evaluation [email or web address] Other Evaluation note* Diagnosis NO SHOW- Primary documented in this encounter [facility] note* Diagnosis POTS (postural orthostatic tachycardia syndrome)- Primary Tachycardia, unspecified documented in this encounter [facility] note* Diagnosis PTSD (post-traumatic stress disorder)- Primary Posttraumatic stress disorder Generalized anxiety disorder Adjustment disorder with depressed mood POTS (postural orthostatic tachycardia syndrome) Tachycardia, unspecified Post-acute 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) documented in this encounter [facility] note* Diagnosis Vertigo, central origin- Primary Vertigo of central origin Cervicocranial syndrome POTS (postural orthostatic tachycardia syndrome) Tachycardia, unspecified documented in this encounter [facility] note* Diagnosis Obesity, Class I, BMI 30-34.9- Primary Obesity, unspecified Dietary counseling Dietary surveillance and counseling documented in this encounter [facility] note* Diagnosis Chronic insomnia- Primary Insomnia, unspecified Snoring Other dyspnea and respiratory abnormality documented in this encounter [facility] note* Diagnosis POTS (postural orthostatic tachycardia syndrome)- Primary Tachycardia, unspecified documented in this encounter [facility] note* Diagnosis PTSD (post-traumatic stress disorder)- Primary Posttraumatic stress disorder Generalized anxiety disorder Adjustment disorder with depressed mood POTS (postural orthostatic tachycardia syndrome) Tachycardia, unspecified Post-acute 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) documented in this encounter [facility] note* Diagnosis Long COVID- Primary PTSD (post-traumatic stress disorder) Posttraumatic stress disorder Generalized anxiety disorder Adjustment disorder with depressed mood documented in this encounter [facility] note* Diagnosis PTSD (post-traumatic stress disorder)- Primary Posttraumatic stress disorder Post-acute 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) documented in this encounter [facility] note* Diagnosis POTS (postural orthostatic tachycardia syndrome)- Primary Tachycardia, unspecified Long COVID documented in this encounter [facility] note* Diagnosis Post-acute 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)- Primary PTSD (post-traumatic stress disorder) Posttraumatic stress disorder Obsessive-compulsive disorder, unspecified type documented in this encounter [facility] note* Diagnosis POTS (postural orthostatic tachycardia syndrome)- Primary Tachycardia, unspecified Sinus tachycardia Other specified cardiac dysrhythmias Post-COVID syndrome documented in this encounter [facility] note* Diagnosis APPOINTMENT CANCELLED- Primary documented in this encounter [facility] note* Diagnosis PTSD (post-traumatic stress disorder)- Primary Posttraumatic stress disorder Generalized anxiety disorder Adjustment disorder with depressed mood POTS (postural orthostatic tachycardia syndrome) Tachycardia, unspecified Post-acute 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) documented in this encounter [facility] note* Diagnosis PTSD (post-traumatic stress disorder)- Primary Posttraumatic stress disorder Mixed obsessional thoughts and acts documented in this encounter [facility] note* Diagnosis NO SHOW- Primary documented [facility] this [facility] [place] [facility]* Diagnosis POTS (postural orthostatic tachycardia syndrome)- Primary Tachycardia, unspecified documented in this encounter [facility] note* Diagnosis PTSD (post-traumatic stress disorder)- Primary Posttraumatic stress disorder Generalized anxiety disorder Adjustment disorder with depressed mood POTS (postural orthostatic tachycardia syndrome) Tachycardia, unspecified Post-acute 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) documented in this encounter [facility] note* Diagnosis Obesity, Class I, BMI 30-34.9- Primary Obesity, unspecified Dietary counseling Dietary surveillance and counseling documented in this encounter [facility] note* Diagnosis PTSD (post-traumatic stress disorder)- Primary Posttraumatic stress disorder Mixed obsessional thoughts and acts Post-acute 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) documented in this encounter [facility] note* Diagnosis APPOINTMENT CANCELLED- Primary documented in this encounter [facility] note* Diagnosis Long COVID- Primary POTS (postural orthostatic tachycardia syndrome) Tachycardia, unspecified documented in this encounter [facility] note* Diagnosis PTSD (post-traumatic stress disorder)- Primary Posttraumatic stress disorder Mixed obsessional thoughts and acts Post-acute 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) documented in this encounter [facility] note* Diagnosis Vertigo, central origin- Primary Vertigo of central origin Cervicocranial syndrome POTS (postural orthostatic tachycardia syndrome) Tachycardia, unspecified Sprain of ligaments of thoracic spine, initial encounter documented in this encounter [facility] note* Diagnosis POTS (postural orthostatic tachycardia syndrome)- Primary Tachycardia, unspecified [id number] syndrome documented in this encounter [facility] note* Diagnosis Post-COVID chronic fatigue- Primary documented in this encounter [facility] note* Diagnosis PTSD (post-traumatic stress disorder)- Primary Posttraumatic stress disorder Mixed obsessional thoughts and acts documented in this encounter [facility] note* Diagnosis Obesity, Class I, BMI 30-34.9- Primary Obesity, unspecified POTS (postural orthostatic tachycardia syndrome) Tachycardia, unspecified Dietary counseling Dietary surveillance and counseling documented in this encounter [facility] note* Diagnosis Chronic daily headache Headache documented in this encounter [facility] note* Diagnosis Mixed obsessional thoughts and acts- Primary PTSD (post-traumatic stress disorder) Posttraumatic stress disorder documented in this encounter [facility] note* Diagnosis Long COVID- Primary POTS (postural orthostatic tachycardia syndrome) Tachycardia, unspecified Cervicocranial syndrome Sprain of ligaments of thoracic spine, initial encounter documented in this encounter [facility] note* Diagnosis Mixed obsessional thoughts and acts- Primary POTS (postural orthostatic tachycardia syndrome) Tachycardia, unspecified PTSD (post-traumatic stress disorder) Posttraumatic stress disorder Post-acute 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) documented in this encounter [facility] note* Diagnosis PTSD (post-traumatic stress disorder)- Primary Posttraumatic stress disorder Mixed obsessional thoughts and acts Post-acute 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) documented in this encounter [facility] note* Diagnosis PTSD (post-traumatic stress disorder)- Primary Posttraumatic stress disorder Post-acute 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) POTS (postural orthostatic tachycardia syndrome) Tachycardia, unspecified documented in this encounter [facility] note* Diagnosis POTS (postural orthostatic tachycardia syndrome)- Primary Tachycardia, unspecified documented in this encounter [facility] note* Diagnosis Brain fog- Primary documented in this encounter [facility] note* Diagnosis Encounter for person encountering health services- Primary documented in this encounter [facility] note* Diagnosis POTS (postural orthostatic tachycardia syndrome)- Primary Tachycardia, unspecified documented in this encounter [facility] note* Diagnosis POTS (postural orthostatic tachycardia syndrome)- Primary Tachycardia, unspecified documented in this encounter [facility] noteNo assessment information availableUniversity [facility] Work Phone: Evaluation note* Diagnosis Long COVID- Primary POTS (postural orthostatic tachycardia syndrome) Tachycardia, unspecified Cervicocranial syndrome Sprain of ligaments of thoracic spine, initial encounter documented in this encounter [facility] note* Diagnosis Vertigo, central origin- Primary Vertigo of central origin documented in this encounter [facility] note* Diagnosis Psychophysiologic insomnia- Primary Persistent disorder of initiating or maintaining sleep documented in this encounter [facility] note* Diagnosis Long COVID- Primary Obsessive-compulsive disorder, unspecified type PTSD (post-traumatic stress disorder) Posttraumatic stress disorder Post-acute 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) POTS (postural orthostatic tachycardia syndrome) Tachycardia, unspecified documented in this encounter [facility] note* Diagnosis PTSD (post-traumatic stress disorder)- Primary Posttraumatic stress disorder Obsessive-compulsive disorder, unspecified type Post-acute 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) documented in this encounter [facility] note* Diagnosis Long COVID- Primary POTS (postural orthostatic tachycardia syndrome) Tachycardia, unspecified Dietary counseling and surveillance Dietary surveillance and counseling documented in this encounter [facility] note* Diagnosis PTSD (post-traumatic stress disorder)- Primary Posttraumatic stress disorder documented in this encounter [facility] note* Diagnosis POTS (postural orthostatic tachycardia syndrome)- Primary Tachycardia, unspecified documented in this encounter [facility] note* Diagnosis PTSD (post-traumatic stress disorder)- Primary Posttraumatic stress disorder Obsessive-compulsive disorder, unspecified type Post-acute 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) POTS (postural orthostatic tachycardia syndrome) Tachycardia, unspecified documented in this encounter [facility] note* Diagnosis POTS (postural orthostatic tachycardia syndrome) Tachycardia, unspecified Orthostatic lightheadedness Dizziness and giddiness Tachycardia Tachycardia, unspecified documented in this encounter [facility] note* Diagnosis PTSD (post-traumatic stress disorder)- Primary Posttraumatic stress disorder POTS (postural orthostatic tachycardia syndrome) Tachycardia, unspecified Obsessive-compulsive disorder, unspecified type Post-acute 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) documented in this encounter [facility] note* Diagnosis Long COVID- Primary POTS (postural orthostatic tachycardia syndrome) Tachycardia, unspecified Cervicocranial syndrome Sprain of ligaments of thoracic spine, initial encounter documented in this encounter [facility] note* Diagnosis Long COVID- Primary Orthostatic lightheadedness Dizziness and giddiness Tachycardia Tachycardia, unspecified Obesity, Class I, BMI 30-34.9 Obesity, unspecified POTS (postural orthostatic tachycardia syndrome) Tachycardia, unspecified Dietary counseling and surveillance Dietary surveillance and counseling documented in this encounter [facility] note* Diagnosis PTSD (post-traumatic stress disorder)- Primary Posttraumatic stress disorder Obsessive-compulsive disorder, unspecified type Post-acute 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) POTS (postural orthostatic tachycardia syndrome) Tachycardia, unspecified documented in this encounter [facility] note* Diagnosis Obsessive-compulsive disorder, unspecified type- Primary PTSD (post-traumatic stress disorder) Posttraumatic stress disorder POTS (postural orthostatic tachycardia syndrome) Tachycardia, unspecified Post-acute 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) documented in this encounter [facility] note* Diagnosis Long COVID- Primary POTS (postural orthostatic tachycardia syndrome) Tachycardia, unspecified SOBOE (shortness of breath on exertion) Shortness of breath documented in this encounter [facility] note* Diagnosis PTSD (post-traumatic stress disorder)- Primary Posttraumatic stress disorder documented in this encounter [facility] note* Diagnosis PTSD (post-traumatic stress disorder)- Primary Posttraumatic stress disorder Obsessive-compulsive disorder, unspecified type POTS (postural orthostatic tachycardia syndrome) Tachycardia, unspecified Post-acute 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 [place] [facility]* Diagnosis Chronic daily headache [facility]ache [facility] Diagnosis Onset Date Resolution Status Suicidal ideation acuteUTI (urinary tract infection)[facility] Work Phone: Evaluation note* Diagnosis PTSD (post-traumatic stress disorder)- Primary Posttraumatic stress disorder Obsessive-compulsive disorder, unspecified type POTS (postural orthostatic tachycardia syndrome) Tachycardia, unspecified Post-acute 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) documented in this encounter [facility] note* Diagnosis Onset Date Resolution Status Generalized anxiety disorder acuteMood disorderacuteSuicidal ideationacuteUTI (urinary tract infection)[facility] Work Phone: Evaluation note* Diagnosis Mixed obsessional thoughts and acts- Primary PTSD (post-traumatic stress disorder) Posttraumatic stress disorder documented in this encounter [facility] note* Diagnosis POTS (postural orthostatic tachycardia syndrome)- Primary Tachycardia, unspecified Long COVID documented in this encounter [facility] note* Diagnosis POTS (postural orthostatic tachycardia syndrome)- Primary Tachycardia, unspecified Dysautonomia (HCC) Unspecified disorder of autonomic nervous system Chronic fatigue, unspecified Brain fog SOB (shortness of breath) Shortness of breath Tachycardia Tachycardia, unspecified Post-COVID syndrome documented in this encounter [facility] note* Diagnosis Appointment canceled by hospital- Primary Procedure not carried out for other reasons documented in this encounter [facility] note* Diagnosis Mixed obsessional thoughts and acts- Primary PTSD (post-traumatic stress disorder) Posttraumatic stress disorder documented in this encounter [facility] note* Diagnosis Nonspecific abnormal electrocardiogram (ECG) (EKG)- Primary Chest discomfort Other chest pain Tachycardia Tachycardia, unspecified documented in this encounter [facility] note* Diagnosis POTS (postural orthostatic tachycardia syndrome)- Primary Tachycardia, unspecified documented in this encounter [facility] note* Diagnosis Abnormal EKG- Primary Nonspecific abnormal electrocardiogram (ECG) (EKG) SOB (shortness of breath) Shortness of breath Chest pain, unspecified type documented in this encounter [facility] note* Diagnosis Activity intolerance- Primary Other general symptoms POTS (postural orthostatic tachycardia syndrome) Tachycardia, unspecified Long COVID Chronic fatigue syndrome Impaired functional mobility, balance, gait, and endurance documented in this encounter [facility] note* Diagnosis Mixed obsessional thoughts and acts- Primary PTSD (post-traumatic stress disorder) Posttraumatic stress disorder documented in this encounter [facility] note* Diagnosis Activity intolerance- Primary Other general symptoms POTS (postural orthostatic tachycardia syndrome) Tachycardia, unspecified Long COVID Chronic fatigue syndrome Impaired functional mobility, balance, gait, and endurance documented in this encounter [facility] note* Diagnosis PTSD (post-traumatic stress disorder)- Primary Posttraumatic stress disorder POTS (postural orthostatic tachycardia syndrome) Tachycardia, unspecified Post-acute 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) documented in this encounter [facility] note* Diagnosis POTS (postural orthostatic tachycardia syndrome)- Primary Tachycardia, unspecified documented in this encounter [facility] note* Diagnosis PTSD (post-traumatic stress disorder)- Primary Posttraumatic stress disorder POTS (postural orthostatic tachycardia syndrome) Tachycardia, unspecified Post-acute 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 [place] [facility]* Diagnosis Onset Date Resolution Status COVID-19 long hauler acutePost-COVID syndromeacutePOTS (postural orthostatic tachycardia syndrome) acute [facility] Work Phone: Evaluation note* Diagnosis Post-COVID syndrome- Primary POTS (postural orthostatic tachycardia syndrome) Tachycardia, unspecified Chest discomfort Other chest pain Tachycardia Tachycardia, unspecified documented in this encounter [facility] note* Diagnosis PTSD (post-traumatic stress disorder)- Primary Posttraumatic stress disorder Mixed obsessional thoughts and acts documented [facility] this encounter 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 Diagnosis Onset Date Resolution Status COVID-19 long hauler acutePOTS (postural orthostatic tachycardia syndrome)acuteLeft thigh pain noneactive [facility] Work Phone: Evaluation note* Diagnosis PTSD (post-traumatic stress disorder) Posttraumatic stress disorder Post-acute 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) documented in this encounter [facility] note* Diagnosis Onset Date Resolution Status Anxiety acuteCOVID-19 long hauleracutePOTS (postural orthostatic tachycardia syndrome) acute [facility] Work Phone: Evaluation note* Diagnosis Onset Date Resolution Status Anxiety acuteCOVID-19 long hauleracutePOTS (postural orthostatic tachycardia syndrome) acuteVitamin B12 deficiencyacuteBMI 32.0-32.9,adultnoneactive [facility] Work Phone: Evaluation note* Diagnosis POTS (postural orthostatic tachycardia syndrome) Unspecified tachycardia documented in this encounter [facility] Work Phone: Evaluation note* Diagnosis POTS (postural orthostatic tachycardia syndrome) Unspecified tachycardia documented in this encounter [facility] Work Phone: Evaluation note* Diagnosis PTSD (post-traumatic stress disorder) Posttraumatic stress disorder Post-acute 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) [facility] [place] [facility] Diagnosis PTSD (post-traumatic stress disorder)- Primary Posttraumatic stress disorder Post-acute 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) Mixed obsessional thoughts and acts [facility] Diagnosis POTS (postural orthostatic tachycardia syndrome) Unspecified tachycardia documented in this encounter [facility] Work Phone: Evaluation note* Diagnosis POTS (postural orthostatic tachycardia syndrome)- Primary Unspecified tachycardia documented in this encounter [facility] Work Phone: Evaluation note* Diagnosis PTSD (post-traumatic stress disorder)- Primary Posttraumatic stress disorder Post-acute 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) POTS (postural orthostatic tachycardia syndrome) Tachycardia, unspecified Mixed obsessional thoughts and acts [facility] Diagnosis PTSD (post-traumatic stress disorder)- Primary Posttraumatic stress disorder Post-acute 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) POTS (postural orthostatic tachycardia syndrome) Tachycardia, unspecified Mixed obsessional thoughts and acts Persistent depressive disorder with anxious distress, currently severe [facility] Diagnosis PTSD (post-traumatic stress disorder)- Primary Posttraumatic stress disorder Post-acute 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) POTS (postural orthostatic tachycardia syndrome) Tachycardia, unspecified [facility] [place] [facility]* Diagnosis PTSD (post-traumatic stress disorder)- Primary Posttraumatic stress disorder POTS (postural orthostatic tachycardia syndrome) Tachycardia, unspecified Post-acute 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) [facility] [place] [facility]* Diagnosis Acne vulgaris- Primary Other acne Melanocytic nevus of face, other location Neoplasm of unspecified behavior of bone, soft tissue, and skin [facility] PTSD (post-traumatic stress disorder)- Primary Posttraumatic stress disorder POTS (postural orthostatic tachycardia syndrome) Tachycardia, unspecified Post-acute 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) Mixed obsessional thoughts and acts Persistent depressive disorder with anxious distress, currently severe documented in this encounter [facility] [place] [facility]* Diagnosis PTSD (post-traumatic stress disorder)- Primary Posttraumatic stress disorder POTS (postural orthostatic tachycardia syndrome) Tachycardia, unspecified [facility] Diagnosis Encounter for removal of sutures [facility] Diagnosis PTSD (post-traumatic stress disorder)- Primary Posttraumatic stress disorder Post-acute 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) POTS (postural orthostatic tachycardia syndrome) Tachycardia, unspecified Mixed obsessional thoughts and acts Persistent depressive disorder with anxious distress, currently severe [facility] [place] [facility]* Diagnosis Intestinal malabsorption, unspecified type (HCC)- Primary Chronic nausea Nausea alone Gastroesophageal reflux disease, unspecified whether esophagitis present [facility] Diagnosis POTS (postural orthostatic tachycardia syndrome) Unspecified tachycardia documented in this encounter [facility] Work Phone: Evaluation note* Diagnosis Acne vulgaris- Primary Other acne Keloid scar Pain Generalized pain [facility] Diagnosis Acne vulgaris Other acne [facility] Diagnosis Acne vulgaris- Primary Other acne [facility] Author Jose Antonio tate [facility] September 14, 2022 8:31pmNote Date/TimeAugust 2022 8:04[place] [address] Psychiatry H&P Signed Patient: Yolanda Aparicio MR#: [id number] : 1995 Acct:[id number] Age/Sex: 27 / F Adm Date: 3 Loc: Room: [address] [place] [address] Type: ADM IN Attending Dr: Annalise Jerez MD Copies to: MD Misha Tenorio DO~ Date of Service: 09/14/2022 HPI History of Present Illness History of present illness: This is a 27-year-old female with reported history of depression who presents for inpatient admission due to worsening of feelings of suicidal ideation. Reportedly at admission, patient had just learned she lost a long legal cheek withher former employer and this made her very upset and hopeless.?When she spoke with her provider from [facility] yesterday morning virtually, she reportedly endorsed SI with a plan to over dose on xanax.?After the appointment the provider called 911 to do a wellness check and she was then pink slipped. Patient was personally seen by me on the day of the encounter. I reviewed the history and performedthe pepe elements of the assessment. I formulated the planof care and confirmed this with the resident as noted below This is a 27-year-old female with a reproted history of PTSD, ARAYA syndrome, long COVID syndrome and migraine headache who presents for inpatient admission after making suicidal statements. Reportedly, patient had communicated with her outpatient HALL COORDINATOR via the [facility] Yolanda stating that she is having thoughts about but no plan. At the time of the interview Yolanda presented as frustrated, angry, and tearful. She said she is going to diana every single constitution party that was involved in this case.She reports a longstanding history of depression which is worsened by her chronic illnesses, being disabled, and recent legal battles and life stressors. She states that she messaged her doctors saying she wanted to but did not want to hurt herself , and states that they misconstrued what she told them. It was also reported to us that she made suicidal comment and mentioned overdosing on her Benzos. Patient said she said I will take my benzo to go to sleep. Since being on the inpatient unit she has been frustrated with staff despite nursing treating her kindness and explaining unit protocol. She was frustrated by the fact that her medications were being withheld, but denied currently feeling depressed or anxious. She gave mixed messages about hermeds insisting that she has been taking 500 mg PO BID of Gabapentin despite OARRS showing otherwise. She also claims that she was taking Tizanidine and Metoproplol. She states that she is a COVID long-hauler and that her hospitalstay has exacerbated her symptoms in relation to this and to her pre-syncope. She admits to feeling angry after the most recent workman case with In[employer] Oliveira. She is worried about financial stressors and noted that inpatient hospitalization worsens her psychiatric symptoms. She denied previous suicide attempts or psychiatric hospitalizations. It is important to mention thatpatient was pink slipped as she made comments about wanting to , taking her Benzodiazepines and going to sleep which she did not deny. Patient did provide consent to communicate with her providers. Collateral information was obtained from her HALL COORDINATOR (Jaskaran) at the [facility] who reported that hereceived a message about patient's wanting to and had no plans. He said they had tried to call her multiple times with no answer. Theywere very concerned about her as they know the patient has been struggling with severe anxiety and ongoing psychosocial stressors. It is the [facility] protocol to notify their police department in such case who reached out to local police asking for a wellness check up. The [place] Police then informed the [facility] police that patient made a comment about taking her Benzodiazepine script and going to sleep. She was taken to the ER to evaluate risk of suicide which is expected and recommended in such cases to ensure safetyof self. At the ER,patient was unable to safety plan with any family member andwas pink slipped to 1s. The HALL COORDINATOR informedme that patient has been taking Metoprolol 12.5 mg PO Q daily and 25 mg PO QHS from an old script. He agreed that there was no recent script for Metoprolol. HALL COORDINATOR said patient has not been taking Tizanidine or Meclizine but was prescribed both meds in the past. He reviewed neurology charts which indicate that patient should take 500 mg of Gabapentin BID but found that only 200 mg PO BID was filled by a fellow neurologist at the Clinic. He is unable to confirm if the patient was actually taking 500mg PO BID as he realizes that recommendation is not supported by a script. OARRS show that last script of gabapentin 300 mg was sent Dec 2021. Collateral information was also obtained from her treating psychologist who indicated that patient struggles with anxiety and PTSD. She believe that her symptoms might have started prior to having a COVID infection. She said patient has a good therapeutic alliance with her and will actually schedule her for thisMonday 5 pm. She does not believe that patient pose an acute risk of harm given her knowledge of the case but realizes that patient comments needs to be evaluated. She believes that patient has strained relationship with the family but her mom may be still involved with her and can safety plan. Psychologist said patient has no previous suicide attempts or psychiatric hospitalization. Patient has denied any access to guns. Psychologist mentioned that patient demonstrates signs of BPD and narcissism but she is in the process of evaluatingthis and has not made a formal diagnosis. Psychologist mentioned that patient saw Dr. Liliane Delong who is a psychiatrist at the [facility] who prescribed antidepressants and Modafinil which did not help. Patient mentioned that Modafinil wasprescribed to help with fatigue induced by Long Covid syndrome but the medication caused delusions and hallucinations. Psychologist said that patient did not build therapuetic rapport with Dr. Minaya as the psychiatrist suggested a personality disorder. Past psych history: She reports following with Dr. Judy Gamez regularly for PTSD. Patient refuses to sign records release form, so contact cannot be made with Dr. Gamez at this time. Past hospitalizations: Patient denies. Past suicide attempts: Patient denies. Family psych history: Patient reports her mother has a history of depression and that her father has a history of depression and alcoholism. Previous medications: Patient reports previously taking metoprolol, NaCl, meclizine, zofran, gabapentin, tizanidine. Alcohol and drug use: Patient denies. Living: Reports living by herself but feels safe. Employment: Patient denies currently working. Relationships: Reports that her support system is marty and that her family does not understand her. She attests to having some supportive friends, but right now she only wants to speak with Dr. Gamez. Mental status: Upset Mood: Angry, frustrated, upset. Affect: Upset, somewhat withdrawn. Speech and movement: Speech and movements normal. Attitude: Frustrated. Thought process: Inconsistent. Thought content: Denies SI/HI, AVH or paranoid thoughts Insight: Fair Judgment: Fair Review of systems - Patient admits to chronic fatigue, blurry/glassy vision, dizziness and presyncope, increased dizziness, SOB, chest pain, irregular heartbeat, tachycardia, and nausea Constitutional: Denies fever, weight loss. Neuro: Denies seizure, numbness/tingling in extremities Pulmonary: Denies dyspnea, cough, wheezing. GI: Denies Abdominal pain, constipation and diarrhea : Denies Dysuria, hematuria, polyuria. Physical exam General: In some distress Skin: Intact Pulm: Breathing normally without excessive effort Cardio: Regular rate and rhythm Musculoskeletal: Moves all extremities. Neuro: Patient alert, oriented x3. CN II: visual manning intact CN III, IV, : EOM intact, no nystagmus. CN V: sensation intact to light touch. CN VIII: hearing intact bilaterally. CN XI: Shoulder shrug strong, equal bilaterally. Review of Systems Constitutional Constitutional: Reports fatigue, Denies fever(s) and Denies weight loss Eyes Eyes: Reports blurry vision and Reports change in vision Cardiovascular Cardiovascular: Reports chest pain and Reports irregular heart rhythm Respiratory Respiratory: Denies cough, Reports dyspnea and Denies wheezing Genitourinary Genitourinary: Denies dysuria and Denies urinary incontinence Neurologic Neurologic: Reports dizziness, Reports other visual disturbances, Denies paresthesias and Denies seizure-like activity PMFSH Vaccinated for COVID-19?: Yes Medical History COVID-19 POTS (postural orthostatic tachycardia syndrome) Vertigo Surgical History No pertinent past surgical history Family History (Updated 09/13/22 @ 18:06 by Carol Benoit RN) Other No significant family history Social History Smoking Status: Former smoker Tobacco Type: cigarettes Substance Use Type: None Meds Medications and Allergies Allergies escitalopram [From Lexapro] Allergy (Verified 09/13/22 12:48) Gastrointestinal Upset cephalexin [From Keflex] Adverse Reaction (Verified 09/13/22 15:03) Gastrointestinal Upset doxycycline Adverse Reaction (Verified 09/13/22 12:49) Headache sulfamethoxazole [From Bactrim] Adverse Reaction (Verified 09/13/22 12:48) Nausea trimethoprim [From Bactrim] Adverse Reaction (Verified 09/13/22 12:48) Nausea Home Medications gabapentin 100 mg capsule 200 mg PO BID 09/13/22 [History Confirmed 09/13/22] hydroxyzine HCl 10 mg tablet 10 mg PO DAILY 09/13/22 [History Confirmed 09/13/22] sodium chloride 1,000 mg soluble tablet 1,000 mg PO TID 09/13/22 [History Confirmed 09/13/22] Exam Physical Exam Vital Signs: Temp Pulse Resp BP Pulse Ox O2 Del Method 97.6 F 87 18 136/81 95 Room Air 09/14/22 07:30 09/14/22 07:30 09/14/22 07:30 09/14/22 07:30 09/14/22 07:30 09/14/22 07:30 Const General: in distress mild Orientation: alert, awake and oriented x3 HEENT Head: normal to inspection Ears: hearing grossly normal bilaterally Face and sinus: other (unable d/t patient refusal of mask removal) Eyes EOM: EOM intact bilaterally Resp Effort & Inspection: normal respiratory effort Auscultation: clear to auscultation bilaterally Cardio Rate: regular rate Rhythm: regular rhythm Neuro General: patient alert and patient oriented x3 Psych Appearance: grossly normal Mood: angry and irritable mood Affect: anxious affect and irritable affect Speech and Movement: speech and movement normal Attitude: cooperative Thought Process: normal Thought Content: other (unsettledness regarding admission) Insight: fair Judgment: fair Results Labs 09/13/22 13:02 09/13/22 13:02 Psychiatry Labs: 09/13/22 09/13/22 09/13/22 13:02 13:02 13:02 RBC 4.85 Hgb 13.5 Hct 39.8 MCV 82.0 MCH 27.9 MCHC 34.0 RDW 13.2 Plt Count 347 MPV 8.3 Sodium 137 Potassium 3.8 Chloride 104 Carbon Dioxide 24.5 Anion Gap 12.3 BUN 7 Creatinine 0.83 Calcium 9.1 Total Bilirubin 0.5 AST 16 ALT 13 Alkaline Phosphatase 73 Total Protein 7.7 Albumin 4.5 Urine Color Yellow Urine Appearance Cloudy A Urine pH 6.0 Ur Specific [place] 1.009 Urine Protein Negative Urine Glucose (UA) Normal Urine Ketones Negative Urine Occult Blood 1+ H Urine Nitrite Negative Ur Leukocyte Esterase 4+ H Urine RBC 3-4 Urine WBC 20-49 H Assessment/Plan (1) Suicidal ideation: Code(s): R45.851 - Suicidal ideations Status: Acute (2) Mood disorder: Code(s): F39 - Unspecified mood [affective] disorder Status: Acute (3) Generalized anxiety disorder: Code(s): F41.1 - Generalized anxiety disorder Status: Acute Plan Patient presenting after making passive suicidal statements but currently denying SI/HI. Rule out BPD and narcissistic personality disorder I have offered antidepressants but she is currently refusing Continue to monitor for depression and to ensure safety of self due to previously reported SI Encourage group participation Monitor suicidal behaviors and complete 15 minute face checks Will attempt to seek collateral information from patient's family. Documented By: Jose Antonio Jerez MD 3 0950 Signed By: <Electronically signed by Jose Antonio Jerez MD> 09/14/222030 [facility] Work Phone: History general Narrative - Reported* Type Description Date Medical History vestibular neuritis Medical Historycraniocervical syndromeMedical History central vertigo of an origin Medical HistorymononucleosisMedical Historytension headachesMedical HistoryCovid positive 02/01/20Medical HistoryPOTS - diag urgical History botox - for [id number]/2019Hospitalization Historyshortness of breath and low pulse [id number] Historymedication withdrawl of [id number]/2018 Hospitalization History[facility] multiple times Covid sym.01/2020[facility] Other History general Narrative - ReportedNortPaladin Healthcare [facility] Other History general Narrative - ReportedNofreeman orthopaedics & sports medicine [employer] Other History general Narrative - Reported* Type Description Date Medical History vestibular neuritis Medical Historycraniocervical syndromeMedical History central vertigo of an origin Medical HistorymononucleosisMedical Historytension headachesMedical HistoryCovid positive 02/01/20Medical HistoryPOTS - diag 10/2020Medical History cognitive deficitSurgical Historybotox - for jexbwhffg91/2019Hospitalization Historyshortness of breath and low pulse [id number] Historymedication withdrawl of vjsfqumhkf01/2018Hospitalization HistoryTBH multiple times Covid sym.01/2020Hospitalization HistoryFR SOB02/2020 ClearDATA Other History general Narrative - Reported* Type Description Date Medical History vestibular neuritis Medical Historycraniocervical syndromeMedical History central vertigo of an origin Medical HistorymononucleosisMedical Historytension headachesMedical HistoryCovid positive 02/01/20Medical HistoryPOTS - diag 10/2020Medical History cognitive deficitSurgical Historybotox - for bbmuadhvo81/2019Hospitalization Historyshortness of breath and low pulse [id number] Historymedication withdrawl of yrlqoronxv73/2018Hospitalization HistoryTBH multiple times Covid sym.01/2020[facility] [place] Historypsych [place] [facility] [facility] Other Hospital course Narrative No data available for this section [facility] Hospital Discharge instructions No data available for this section [facility] Progress note No data available for this section [facility] Reason for referral (narrative)* Outpatient Procedure (Routine) - AuthorizedSpecialtyDiagnoses / ProceduresReferred By Contact [facility] To [facility] Diagnoses POTS (postural orthostatic tachycardia syndrome) Procedures ECG COMPLETE ECG ROUTINE ECG W/LEAST 12 LDS W/I&R Brandan Peguero DO [address] [place] [address] [facility] [place] [address] [place] [address] Referral IDStatusReasonStaustin DateExpiration DateVisits RequestedVisits [id number] Auto-Generated Referral [facility] for referral (narrative)No reason for referral information availableMary [facility] Work Phone: Reason for visit Narrative* Neurology (Routine) - AuthorizedSpecialtyDiagnoses / ProceduresReferred By ContactReferred To Contact Diagnoses POTS (postural orthostatic tachycardia syndrome) Procedures [place] [address] [facility] [place] [address] Phone: tel: fax: Referral IDStatusReasonStart DateExpiration DateVisits RequestedVisits [id number]/22/20248/22/202511 [facility] Work Phone: Reason for visit Narrative* Neurology (Routine) - Pending ReviewSpecialtyDiagnoses / ProceduresReferred By ContactReferred To Contact Diagnoses POTS (postural orthostatic tachycardia syndrome) Procedures EMG & [place] [address] [facility] [place] [address] Phone: tel: fax: Referral IDStatusReasonStart DateExpiration DateVisits RequestedVisits [id number] Review [facility] Work Phone: Summary Purpose Family History Relationship Condition Age at Onset Recorded Date/T katiana Not Specified No pertinent family history Unknown Relationship Condition Age at Onset Recorded Date/T katiana Not Specified No pertinent family history Unknown fatherHypertensionUnknownNot SpecifiedFamily history of mental disorderUnknown Relationship Condition Age at Onset Recorded Date/T katiana Not Specified No pertinent family history Unknown fatherHypertensionUnknownmotherFamily history of mental disorderUnknown Relationship Condition Age at Onset Recorded Date/T katiana Not Specified No pertinent family history Unknown fatherHypertensionUnknownFamily history of mental disorderUnknownAnxietyUnknown Alcohol useUnknownmotherFamily history of mental disorderUnknownbrotherFamily history of mental disorderUnknownsisterHistory of migraineUnknown Advance Directives Advance Directive Response Recorded Date/ Time Advance Directives No December 1:23pm Advance Directive Response Recorded Date/ Time Advance Directives No December 12:23pm Advance Directive Response Recorded Date/ Time Advance Directives No October 1:17pm Advance Directive Response Recorded Date/ Time Advance Directives No October 12:17pm Chief Complaint * AccompaniedBy_UH: * Accompanied by alone. * PsychChiefComplaintFreeTextNoteForm_UH: * An interactive audio and video telecommunication system which permits real time communications between the patient (at the originating site) and provider (at the distant site) was utilized to providethis telehealth service. * Verbal consent was requested and obtained from YOLANDA APARICIO on this date, 04/28/2021 09:00 AM , for a telehealth visit. * Due to COVID19 restrictions, for sleep difficulties. * AccompaniedBy_UH: * Accompanied by alone. * PsychChiefComplaintFreeTextNoteForm_UH: * An interactive audio and video telecommunication system which permits real time communications between the patient (at the originating site) and provider (at the distant site) was utilized to providethis telehealth service. * Verbal consent was requested and obtained from YOLANDA APARICIO on this date, 05/05/2021 08:00 AM , for a telehealth visit. * Due to COVID19 restrictions, for sleep difficulties. * AccompaniedBy_UH: * Accompanied by alone. * PsychChiefComplaintFreeTextNoteForm_UH: * An interactive audio and video telecommunication system which permits real time communications between the patient (at the originating site) and provider (at the distant site) was utilized to providethis telehealth service. * Verbal consent was requested and obtained from YOLANDA APARICIO on this date, 05/05/2021 08:00 AM , for a telehealth visit. * Due to COVID19 restrictions, for sleep difficulties. * AccompaniedBy_UH: * Accompanied by alone. * PsychChiefComplaintFreeTextNoteForm_UH: * An interactive audio and video telecommunication system which permits real time communications between the patient (at the originating site) and provider (at the distant site) was utilized to providethis telehealth service. * Verbal consent was requested and obtained from YOLANDA APARICIO on this date, 06/30/2021 03:30 PM , for a telehealth visit. * Due to COVID19 restrictions, for sleep difficulties. * AccompaniedBy_UH: * Accompanied by alone. * PsychChiefComplaintFreeTextNoteForm_UH: * An interactive audio and video telecommunication system which permits real time communications between the patient (at the originating site) and provider (at the distant site) was utilized to providethis telehealth service. * Verbal consent was requested and obtained from YOLANDA APARICIO on this date, 06/30/2021 03:30 PM , for a telehealth visit. * Due to COVID19 restrictions, for sleep difficulties. Reason for Referral SpecialtyDiagnoses / ProceduresReferred By ContactReferred To ContactPsychology Diagnoses PTSD (post-traumatic stress disorder) Generalized anxiety disorder Adjustment disorder with depressed mood Procedures CONSULT TO PSYCHOLOGY OFFICE/OUTPATIENT [facility] 60-74 MINUTES Queta Ward PSYD [address] [facility] [place] [address] Referral IDStatusReasonStart DateExpiration DateVisits RequestedVisits [id number] Review PCP Requested Referral /[id number] / ProceduresReferred By ContactReferred To ContactINTERNAL MEDICINE Diagnoses POTS (postural orthostatic tachycardia syndrome) Orthostatic lightheadedness Tachycardia Procedures CONSULT TO FUNCTIONAL MEDICINE OFFICE/OUTPATIENT [facility] 60-74 MINUTES Alvin Huddleston DO [address] [place] [address] Functional [facility] [place] [address] [place] [address] Referral IDStatusReasonStart DateExpiration DateVisits RequestedVisits [id number] PCP Requested Referral /[id number] / ProceduresReferred By ContactReferred To ContactPULM [facility] Diagnoses Post-COVID chronic fatigue Procedures CONSULT TO [facility] Parish Lanier MD [address] [place] [address] Pulm Covid Recov [facility] Indp [address] [place] [id number] Referral IDStatusReasonStart DateExpiration DateVisits RequestedVisits [id number] Review PCP Requested Referral /[id number] / ProceduresReferred By ContactReferred To ContactREHAB AND SPORTS THERAPY INS Diagnoses Brain fog Procedures CONSULT TO SPEECH THERAPY OFFICE/OUTPATIENT [facility] 60-74 MINUTES Parish Lanier MD [address] [place] [id number] [facility] [place] [address] Referral IDStatusReasonStart DateExpiration DateVisits RequestedVisits [id number] Review Auto-Generated Referral /[id number] / ProceduresReferred By ContactReferred To ContactCardiology Diagnoses Nonspecific abnormal electrocardiogram (ECG) (EKG) Chest discomfort Tachycardia Procedures CONSULT TO CARDIOLOGY OFFICE/OUTPATIENT [facility] 60-74 MINUTES Jaskaran Guzman APRN.CNP [address] [facility] [id number] [place] [phone] Referral IDStatusReasonStart DateExpiration DateVisits RequestedVisits [id number] PCP Requested Referral /[id number] / ProceduresReferred By ContactReferred To ContactCT IMAGING Diagnoses Chest pain, unspecified type Procedures CTA CORONARY W IVCON CTA HRT CORNRY ART/BYPASS GRFTS CONTRST 3D POST Shawn Arthur MD [address] [place] [address] Ct Imaging [place] [address] Referral IDStatusReasonP[place] DateExpiration DateVisits RequestedVisits [id number] Clinical Info Needed Auto-Generated Referral /[id number] / ProceduresReferred By ContactReferred To [facility] Diagnoses Abnormal EKG Procedures ECG COMPLETE ECG ROUTINE ECG W/LEAST 12 LDS W/I&R Shawn Arthur MD [address] [place] [address] [place] [address] Ref[facility] DateExpiration DateVisits RequestedVisits [id number] Auto-Generated Referral /[id number] / ProceduresReferred By ContactReferred To [facility] Procedures CARDIOVASCULAR MEDICINE OP FOLLOW UP APPT ORDER Brandan Peguero DO [address] [place] [address] [facility] [place] [address] Referral [facility]Status[facility] DateExpiration DateVisits RequestedVisits [id number] Not Required PCP Requested Referral /[id number] / ProceduresReferred By ContactReferred To Contact Diagnoses PTSD (post-traumatic stress disorder) Post-acute 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) Procedures PROVIDER ORDERED FOLLOW UP OFFICE/OUTPATIENT [facility] 60 MINUTES Judy Gamez PSYD [address] [phone] Referral IDStatusReasonStart DateExpiration DateVisits RequestedVisits [id number] PCP Requested Referral 1Referral IDStatusReasonStart DateExpiration DateVisits RequestedVisits [id number] PCP Requested Referral 1Referral IDStatusReasonStart DateExpiration DateVisits RequestedVisits [id number] PCP Requested Referral [id number] / ProceduresReferred By ContactReferred To Contact Diagnoses POTS (postural orthostatic tachycardia syndrome) Procedures EMG & [place] [address] [facility] [place] [address] Referral IDStatusReasonStart DateExpiration DateVisits RequestedVisits [id number] Review/[id number] / ProceduresReferred By ContactReferred To Contact Diagnoses POTS (postural orthostatic tachycardia syndrome) Procedures [place] [address] [facility] [place] [address] Referral IDStatusReasonStart DateExpiration DateVisits RequestedVisits [id number]/22/20248/ Chief Complaint and Reason for Visit Chief Complaint Urinary frequency Chief Complaint suicidal Reason for Visit Suicidal ideation UTI (urinary tract infection) Chief Complaint suicidal DysuriaReason for VisitGeneralized anxiety disorder Mood disorder Suicidal ideation UTI (urinary tract infection) Chief Complaint 3 Month Follow Up Upper Respitory And Sinus Infection 1 Month Follow Up Amb Documentation Amb Documentation 6 week f/uReason for VisitCOVID-19 long hauler Post-COVID syndrome POTS (postural orthostatic tachycardia syndrome) Chief Complaint Upper Respitory And Sinus Infection 1 Month Follow Up Amb Documentation Amb Documentation 6 week f/u Amb Documentation Follow up r/sReason for VisitCOVID-19 sandhya gonzalez Post-COVID syndrome POTS (postural orthostatic tachycardia syndrome) Chief Complaint Follow up r/s Amb Documentation Amb Documentation follow upReason for VisitAnxiety COVID-19 sandhya gonzalez POTS (postural orthostatic tachycardia syndrome) COVID-19 sandhya gonzalez POTS (postural orthostatic tachycardia syndrome) Left thigh pain Chief Complaint Follow up r/s Amb Documentation B12 shot 2 monthsReason for VisitAnxiety COVID-19 sandhya gonzalez POTS (postural orthostatic tachycardia syndrome) Vitamin B12 deficiency BMI 32.0-32.9,adult Chief Complaint Admit Date 2 months December 11, 2023 8 :59am sinus pressure, stuffy nose, congestion January 11, 2024 9:20am follow up January 28, 2024 8:23am Amb Documentation February 18, 2024 3: 40pm urine oder February 28, 2024 9 :01am Reason for Visit Admit Date COVID-19 sandhya gonazlez December 11, 2023 8:59am POTS (postural orthostatic tachycardia s yndrome) December 11, 2023 8:59am Vitamin B12 deficiency December 10 8:59am BMI 32.0-32.9,adult December 11, 2023 8 :59am Acute sinusitis January 11, 2024 9:20am Anxiety January 28, 2024 8:23am Chronic nausea January 28, 2024 8:23am POTS (postural orthostatic tachycardia s yndrome) January 28, 2024 8:23am Vitamin B12 deficiency January 27 8:23am Chief Complaint Admit Date 2 months December 11, 2023 8 :59am sinus pressure, stuffy nose, congestion January 11, 2024 9:20am follow up January 28, 2024 8:23am Amb Documentation February 18, 2024 3: 40pm urine oder February 28, 2024 9 :01am Increased frequency of urination February 28, 2024 9:04am Reason for Visit Admit Date COVID-Yoav gonzalez December 11, 2023 8:59am POTS (postural orthostatic tachycardia s yndrome) December 11, 2023 8:59am Vitamin B12 deficiency December 10 8:59am BMI 32.0-32.9,adult December 11, 2023 8 :59am Acute sinusitis January 11, 2024 9:20am Anxiety January 28, 2024 8:23am Chronic nausea January 28, 2024 8:23am POTS (postural orthostatic tachycardia s yndrome) January 28, 2024 8:23am Vitamin B12 deficiency January 27 8:23am Urinary frequency February 28, 2024 9 :01am Chief Complaint Admit Date sinus pressure, stuffy nose, congestion January 11, 2024 9:20am follow up January 28, 2024 8:23am Amb Documentation February 18, 2024 3: 40pm urine oder February 28, 2024 9 :01am Increased frequency of urination February 28, 2024 9:04am sinus sx March 28, 2024 9:54am Reason for Visit Admit Date Acute sinusitis January 11, 2024 9:20am Anxiety January 28, 2024 8:23am Chronic nausea January 28, 2024 8:23am POTS (postural orthostatic tachycardia s yndrome) January 28, 2024 8:23am Vitamin B12 deficiency January 27 8:23am Urinary frequency February 28, 2024 9 :01am Chief Complaint Admit Date sinus pressure, stuffy nose, congestion January 11, 2024 9:20am follow up January 28, 2024 8:23am Amb Documentation February 18, 2024 3: 40pm urine oder February 28, 2024 9 :01am Increased frequency of urination February 28, 2024 9:04am sinus sx March 28, 2024 9:54am *lab* 2 month/COVID POSITIVE March 312024 8:56am Reason for Visit Admit Date Acute sinusitis January 11, 2024 9:20am Anxiety January 28, 2024 8:23am Chronic nausea January 28, 2024 8:23am POTS (postural orthostatic tachycardia s yndrome) January 28, 2024 8:23am Vitamin B12 deficiency January 27 8:23am Urinary frequency February 28, 2024 9 :01am COVID-19 March 28, 2024 9:54am COVID March 31, 2024 8:56am Chief Complaint Admit Date sinus sx March 28, 2024 9:54am *lab* 2 month/COVID POSITIVE March 312024 8:56am Amb Documentation April 09, 2024 2:18pm possible uti May 31, 2024 9:0 4am Reason for Visit Admit Date COVID-19 March 28, 2024 9:54am COVID March 31, 2024 8:56am Reason for Visit Admit Date COVID-March 28, 2024 9:54am COVID March 31, 2024 8:56am Urinary frequency May 31, 2024 9:0 4am Chief Complaint Admit Date sinus sx March 28, 2024 9:54am *lab* 2 month/COVID POSITIVE March 312024 8:56am Amb Documentation April 09, 2024 2:18pm possible uti May 31, 2024 9:0 4am R30.0 May 31, 2024 3:5 5pm Amb Documentation June 03, 2024 9:2 1am Self- UH June 12, 2024 8:16am Reason for Visit Admit Date COVID-March 28, 2024 9:54am COVID March 31, 2024 8:56am Urinary frequency May 31, 2024 9:0 4am Abnormal weight gain June 12, 2024 8:16a m Anxiety June 12, 2024 8:16am BMI 30.0-30.9,adult June 12, 2024 8:16am Chronic fatigue syndrome June 12, 2024 8 :16am Depression June 12, 2024 8:16am Dietary surveillance and counseling June 12, 2024 8:16am Exercise counseling June 12, 2024 8:16am Obesity, Class I, BMI 30-34.9 June 12, 2 025 8:16am OCD (obsessive compulsive disorder) June 12, 2024 8:16am Post-COVID syndrome June 12, 2024 8:16am POTS (postural orthostatic tachycardia s yndrome) June 12, 2024 8:16am PTSD (post-traumatic stress disorder) 2024 8:16am Chief Complaint Admit Date sinus sx March 28, 2024 9:54am *lab* 2 month/COVID POSITIVE March 312024 8:56am Amb Documentation April 09, 2024 2:18pm possible uti May 31, 2024 9:0 4am R30.0 May 31, 2024 3:5 5pm Amb Documentation June 03, 2024 9:2 1am Self- UH June 12, 2024 8:16am 2 month June 19, 2024 8:27am Reason for Visit Admit Date COVID-19 March 28, 2024 9:54am COVID March 31, 2024 8:56am Urinary frequency May 31, 2024 9:0 4am Abnormal weight gain June 12, 2024 8:16a m Anxiety June 12, 2024 8:16am BMI 30.0-30.9,adult June 12, 2024 8:16am Chronic fatigue syndrome June 12, 2024 8 :16am Depression June 12, 2024 8:16am Dietary surveillance and counseling June 12, 2024 8:16am Exercise counseling June 12, 2024 8:16am Obesity, Class I, BMI 30-34.9 June 12, 025 8:16am OCD (obsessive compulsive disorder) June 12, 2024 8:16am Post-COVID syndrome June 12, 2024 8:16am POTS (postural orthostatic tachycardia s yndrome) June 12, 2024 8:16am PTSD (post-traumatic stress disorder) Ma 2024 8:16am BMI 31.0-31.9,adult June 19, 2024 8:27am Chief Complaint Admit Date possible uti May 31, 2024 9:0 4am R30.0 May 31, 2024 3:5 5pm Amb Documentation June 03, 2024 9:2 1am Self- UH June 12, 2024 8:16am 2 month June 19, 2024 8:27am right arm pain July 13, 2024 12:05 pm Reason for Visit Admit Date Urinary frequency May 31, 2024 9:0 4am Abnormal weight gain June 12, 2024 8:16a m Anxiety June 12, 2024 8:16am BMI 30.0-30.9,adult June 12, 2024 8:16am Chronic fatigue syndrome June 12, 2024 8 :16am Depression June 12, 2024 8:16am Dietary surveillance and counseling June 12, 2024 8:16am Exercise counseling June 12, 2024 8:16am Obesity, Class I, BMI 30-34.9 June 12 025 8:16am OCD (obsessive compulsive disorder) June 12, 2024 8:16am Post-COVID syndrome June 12, 2024 8:16am POTS (postural orthostatic tachycardia s yndrome) June 12, 2024 8:16am PTSD (post-traumatic stress disorder) Ma y 2024 8:16am Generalized anxiety disorder June 19 8:27am Post-COVID syndrome June 19, 2024 8:27am POTS (postural orthostatic tachycardia s yndrome) June 19, 2024 8:27am BMI 31.0-31.9,adult June 19, 2024 8:27am Strain of right biceps tendon July 13, 2024 12:05pm Right shoulder pain July 13, 2024 12:05 pm Chief Complaint Admit Date possible uti May 31, 2024 9:0 4am R30.0 May 31, 2024 3:5 5pm Amb Documentation June 03, 2024 9:2 1am Self- UH June 12, 2024 8:16am 2 month June 19, 2024 8:27am right arm pain July 13, 2024 12:05 pm [id number] July 13, 2024 12:46 pm 6 week July 28, 2024 8:58 am wm August 07, 2024 10:3 1am Reason for Visit Admit Date Urinary frequency May 31, 2024 9:0 4am Abnormal weight gain June 12, 2024 8:16a m Anxiety June 12, 2024 8:16am BMI 30.0-30.9,adult June 12, 2024 8:16am Chronic fatigue syndrome June 12, 2024 8 :16am Depression June 12, 2024 8:16am Dietary surveillance and counseling June 12, 2024 8:16am Exercise counseling June 12, 2024 8:16am Obesity, Class I, BMI 30-34.9 June 12 025 8:16am OCD (obsessive compulsive disorder) June 12, 2024 8:16am Post-COVID syndrome June 12, 2024 8:16am POTS (postural orthostatic tachycardia s yndrome) June 12, 2024 8:16am PTSD (post-traumatic stress disorder) Ma y 2024 8:16am Generalized anxiety disorder June 19 8:27am Post-COVID syndrome June 19, 2024 8:27am POTS (postural orthostatic tachycardia s yndrome) June 19, 2024 8:27am BMI 31.0-31.9,adult June 19, 2024 8:27am Strain of right biceps tendon July 13, 2024 12:05pm Right shoulder pain July 13, 2024 12:05 pm Abnormal weight gain July 28, 2024 8:5 8am Anxiety July 28, 2024 8:58 am BMI 31.0-31.9,adult July 28, 2024 8:58 am Chronic fatigue syndrome July 28, 2024 8:58am Depression July 28, 2024 8:58 am Dietary surveillance and counseling July 28, 2024 8:58am Exercise counseling July 28, 2024 8:58 am Obesity, Class I, BMI 30-34.9 July 28, 2024 8:58am OCD (obsessive compulsive disorder) July 28, 2024 8:58am Post-COVID syndrome July 28, 2024 8:58 am POTS (postural orthostatic tachycardia s yndrome) July 28, 2024 8:58am PTSD (post-traumatic stress disorder) 2024 8:58am Chief Complaint Admit Date possible uti May 31, 2024 9:0 4am R30.0 May 31, 2024 3:5 5pm Amb Documentation June 03, 2024 9:2 1am Self- UH June 12, 2024 8:16am 2 month June 19, 2024 8:27am right arm pain July 13, 2024 12:05 pm [id number] July 13, 2024 12:46 pm 6 week July 28, 2024 8:58 am wm August 07, 2024 10:3 1am R53.83 August 13, 2024 6:44a m Chief Complaint Admit Date possible uti May 31, 2024 9:0 4am R30.0 May 31, 2024 3:5 5pm Amb Documentation June 03, 2024 9:2 1am Self- UH June 12, 2024 8:16am 2 month June 19, 2024 8:27am right arm pain July 13, 2024 12:05 pm [id number] July 13, 2024 12:46 pm 6 week July 28, 2024 8:58 am wm August 07, 2024 10:3 1am R53.83 August 13, 2024 6:44a m teach routine August 19, 2024 8:53a m Chief Complaint Admit Date possible uti May 31, 2024 9:0 4am R30.0 May 31, 2024 3:5 5pm Amb Documentation June 03, 2024 9:2 1am Self- UH June 12, 2024 8:16am 2 month June 19, 2024 8:27am right arm pain July 13, 2024 12:05 pm [id number] July 13, 2024 12:46 pm 6 week July 28, 2024 8:58 am wm August 07, 2024 10:3 1am R53.83 August 13, 2024 6:44a m teach routine August 19, 2024 8:53a m Poss Uti, sinus pain August 27, 2024 9:0 1am Reason for Visit Admit Date Urinary frequency May 31, 2024 9:0 4am Abnormal weight gain June 12, 2024 8:16a m Anxiety June 12, 2024 8:16am BMI 30.0-30.9,adult June 12, 2024 8:16am Chronic fatigue syndrome June 12, 2024 8 :16am Depression June 12, 2024 8:16am Dietary surveillance and counseling June 12, 2024 8:16am Exercise counseling June 12, 2024 8:16am Obesity, Class I, BMI 30-34.9 June 12, 2 025 8:16am OCD (obsessive compulsive disorder) June 12, 2024 8:16am Post-COVID syndrome June 12, 2024 8:16am POTS (postural orthostatic tachycardia s yndrome) June 12, 2024 8:16am PTSD (post-traumatic stress disorder) Ma 2024 8:16am Generalized anxiety disorder June 19 8:27am Post-COVID syndrome June 19, 2024 8:27am POTS (postural orthostatic tachycardia s yndrome) June 19, 2024 8:27am BMI 31.0-31.9,adult June 19, 2024 8:27am Strain of right biceps tendon July 13, 2024 12:05pm Right shoulder pain July 13, 2024 12:05 pm Abnormal weight gain July 28, 2024 8:5 8am Anxiety July 28, 2024 8:58 am BMI 31.0-31.9,adult July 28, 2024 8:58 am Chronic fatigue syndrome July 28, 2024 8:58am Depression July 28, 2024 8:58 am Dietary surveillance and counseling July 28, 2024 8:58am Exercise counseling July 28, 2024 8:58 am Obesity, Class I, BMI 30-34.9 July 28, 2024 8:58am OCD (obsessive compulsive disorder) July 28, 2024 8:58am Post-COVID syndrome July 28, 2024 8:58 am POTS (postural orthostatic tachycardia s yndrome) July 28, 2024 8:58am PTSD (post-traumatic stress disorder) Ju 2024 8:58am Acute viral sinusitis August 27, 2024 9: 01am Urinary frequency August 27, 2024 9:01 am Chief Complaint Admit Date possible uti May 31, 2024 9:0 4am R30.0 May 31, 2024 3:5 5pm Amb Documentation June 03, 2024 9:2 1am Self- UH June 12, 2024 8:16am 2 month June 19, 2024 8:27am right arm pain July 13, 2024 12:05 pm [id number] July 13, 2024 12:46 pm 6 week July 28, 2024 8:58 am wm August 07, 2024 10:3 1am [email or web address] August 13, 2024 6:44a m teach routine August 19, 2024 8:53a m Poss Uti, sinus pain August 27, 2024 9:0 1am R30.0 August 27, 2024 9:30 am Chief Complaint Admit Date right arm pain July 13, 2024 12:05 pm [id number] July 13, 2024 12:46 pm 6 week July 28, 2024 8:58 am wm August 07, 2024 10:3 1am R53.83 August 13, 2024 6:44a m teach routine August 19, 2024 8:53a m Poss Uti, sinus pain August 27, 2024 9:0 1am R30.0 August 27, 2024 9:30 am Amb Documentation September 09, 2024 12:5 4pm [email or web address] September 17, 2024 12: 30pm Reason for Visit Admit Date Strain of right biceps tendon July 13, 2024 12:05pm Right shoulder pain July 13, 2024 12:05 pm Abnormal weight gain July 28, 2024 8:5 8am Anxiety July 28, 2024 8:58 am BMI 31.0-31.9,adult July 28, 2024 8:58 am Chronic fatigue syndrome July 28, 2024 8:58am Depression July 28, 2024 8:58 am Dietary surveillance and counseling July 28, 2024 8:58am Exercise counseling July 28, 2024 8:58 am Obesity, Class I, BMI 30-34.9 July 28, 2024 8:58am OCD (obsessive compulsive disorder) July 28, 2024 8:58am Post-COVID syndrome July 28, 2024 8:58 am POTS (postural orthostatic tachycardia s yndrome) July 28, 2024 8:58am PTSD (post-traumatic stress disorder) Ju 2024 8:58am Acute viral sinusitis August 27, 2024 9: 01am Urinary frequency August 27, 2024 9:01 am Chief Complaint Admit Date right arm pain July 13, 2024 12:05 pm [id number] July 13, 2024 12:46 pm 6 week July 28, 2024 8:58 am wm August 07, 2024 10:3 1am R53.83 August 13, 2024 6:44a m teach routine August 19, 2024 8:53a m Poss Uti, sinus pain August 27, 2024 9:0 1am R30.0 August 27, 2024 9:30 am Amb Documentation September 09, 2024 12:5 4pm [email or web address] [email or web address] September 17, 2024 12: 30pm 3 Month Follow Up September 25, 2024 8: 22am Reason for Visit Admit Date Strain of right biceps tendon July 13, 2024 12:05pm Right shoulder pain July 13, 2024 12:05 pm Abnormal weight gain July 28, 2024 8:5 8am Anxiety July 28, 2024 8:58 am BMI 31.0-31.9,adult July 28, 2024 8:58 am Chronic fatigue syndrome July 28, 2024 8:58am Depression July 28, 2024 8:58 am Dietary surveillance and counseling July 28, 2024 8:58am Exercise counseling July 28, 2024 8:58 am Obesity, Class I, BMI 30-34.9 July 28, 2024 8:58am OCD (obsessive compulsive disorder) July 28, 2024 8:58am Post-COVID syndrome July 28, 2024 8:58 am POTS (postural orthostatic tachycardia s yndrome) July 28, 2024 8:58am PTSD (post-traumatic stress disorder) Ju 2024 8:58am Acute viral sinusitis August 27, 2024 9: 01am Urinary frequency August 27, 2024 9:01 am Anxiety September 25, 2024 8: 22am POTS (postural orthostatic tachycardia s yndrome) September 25, 2024 8:22am Chief Complaint Admit Date right arm pain July 13, 2024 12:05 pm [id number] July 13, 2024 12:46 pm 6 week July 28, 2024 8:58 am August 07, 2024 10:3 1am R53.83 August 13, 2024 6:44a m teach routine August 19, 2024 8:53a m Poss Uti, sinus pain August 27, 2024 9:0 1am R30.0 August 27, 2024 9:30 am Amb Documentation September 09, 2024 12:5 4pm [email or web address] [email or web address] September 17, 2024 12: 30pm 3 Month Follow Up September 25, 2024 8: 22am September 30, 2024 11 :18am Chief Complaint Admit Date right arm pain July 13, 2024 12:05 pm [id number] July 13, 2024 12:46 pm 6 week July 28, 2024 8:58 am August 07, 2024 10:3 1am R53.83 August 13, 2024 6:44a m teach routine August 19, 2024 8:53a m Poss Uti, sinus pain August 27, 2024 9:0 1am R30.0 August 27, 2024 9:30 am Amb Documentation September 09, 2024 12:5 4pm [email or web address] [email or web address] September 17, 2024 12: 30pm 3 Month Follow Up September 25, 2024 8: 22am wm September 30, 2024 11 :18am 2 week October 09, 2024 11 :21am Chief Complaint Admit Date 6 week July 28, 2024 8:58 am wm August 07, 2024 10:3 1am R53.83 August 13, 2024 6:44a m teach routine August 19, 2024 8:53a m Poss Uti, sinus pain August 27, 2024 9:0 1am R30.0 August 27, 2024 9:30 am Amb Documentation September 09, 2024 12:5 4pm [email or web address] [email or web address] September 17, 2024 12: 30pm 3 Month Follow Up September 25, 2024 8: 22am wm September 30, 2024 11 :18am 2 week October 09, 2024 11 :21am sinus sx October 21, 2024 12:47pm Reason for Visit Admit Date Abnormal weight gain July 28, 2024 8:5 8am Anxiety July 28, 2024 8:58 am BMI 31.0-31.9,adult July 28, 2024 8:58 am Chronic fatigue syndrome July 28, 2024 8:58am Depression July 28, 2024 8:58 am Dietary surveillance and counseling July 28, 2024 8:58am Exercise counseling July 28, 2024 8:58 am Obesity, Class I, BMI 30-34.9 July 28, 2024 8:58am OCD (obsessive compulsive disorder) July 28, 2024 8:58am Post-COVID syndrome July 28, 2024 8:58 am POTS (postural orthostatic tachycardia s yndrome) July 28, 2024 8:58am PTSD (post-traumatic stress disorder) [facility] 2024 8:58am Acute viral sinusitis August 27, 2024 9: 01am Urinary frequency August 27, 2024 9:01 am Anxiety September 25, 2024 8: 22am POTS (postural orthostatic tachycardia s yndrome) September 25, 2024 8:22am Anxiety October 09, 2024 11 :21am POTS (postural orthostatic tachycardia s yndrome) October 09, 2024 11:21am PTSD (post-traumatic stress disorder) [facility] 2024 11:21am COVID-19 long chandanauler October 09, 2024 1 1:21am Acute viral sinusitis October 21 12:47pm Chief Complaint Admit Date 6 week July 28, 2024 8:58 am wm August 07, 2024 10:3 1am R53.83 August 13, 2024 6:44a m teach routine August 19, 2024 8:53a m Poss Uti, sinus pain August 27, 2024 9:0 1am R30.0 August 27, 2024 9:30 am Amb Documentation September 09, 2024 12:5 4pm [email or web address] [email or web address] September 17, 2024 12: 30pm 3 Month Follow Up September 25, 2024 8: 22am wm September 30, 2024 11 :18am 2 week October 09, 2024 11 :21am sinus sx October 21, 2024 12:47pm H/A-MRI request- issues with school Se ptember 2024 2:13pm Reason for Visit Admit Date Abnormal weight gain July 28, 2024 8:5 8am Anxiety July 28, 2024 8:58 am BMI 31.0-31.9,adult July 28, 2024 8:58 am Chronic fatigue syndrome July 28, 2024 8:58am Depression July 28, 2024 8:58 am Dietary surveillance and counseling July 28, 2024 8:58am Exercise counseling July 28, 2024 8:58 am Obesity, Class I, BMI 30-34.9 July 28, 2024 8:58am OCD (obsessive compulsive disorder) July 28, 2024 8:58am Post-COVID syndrome July 28, 2024 8:58 am POTS (postural orthostatic tachycardia s yndrome) July 28, 2024 8:58am PTSD (post-traumatic stress disorder) 2024 8:58am Acute viral sinusitis August 27, 2024 9: 01am Urinary frequency August 27, 2024 9:01 am Anxiety September 25, 2024 8: 22am POTS (postural orthostatic tachycardia s yndrome) September 25, 2024 8:22am Anxiety October 09, 2024 11 :21am POTS (postural orthostatic tachycardia s yndrome) October 09, 2024 11:21am PTSD (post-traumatic stress disorder) [facility] 2024 11:21am COVID-19 sandhya gonzalez October 09, 2024 1 1:21am Acute viral sinusitis October 21 12:47pm Post-nasal drip October 23, 2024 2:13pm Chief Complaint Admit Date August 07, 2024 10:3 1am R53.83 August 13, 2024 6:44a m teach routine August 19, 2024 8:53a m Poss Uti, sinus pain August 27, 2024 9:0 1am R30.0 August 27, 2024 9:30 am Amb Documentation September 09, 2024 12:5 4pm [email or web address] [email or web address] September 17, 2024 12: 30pm 3 Month Follow Up September 25, 2024 8: 22am wm September 30, 2024 11 :18am 2 week October 09, 2024 11 :21am sinus sx October 21, 2024 12:47pm H/A-MRI request- issues with school Se ptember 2024 2:13pm thinks she has COVID November 05 12:31pm Reason for Visit Admit Date Acute viral sinusitis August 27, 2024 9: 01am Urinary frequency August 27, 2024 9:01 am Anxiety September 25, 2024 8: 22am POTS (postural orthostatic tachycardia s yndrome) September 25, 2024 8:22am Anxiety October 09, 2024 11 :21am POTS (postural orthostatic tachycardia s yndrome) October 09, 2024 11:21am PTSD (post-traumatic stress disorder) [facility] 2024 11:21am COVID-19 sandhya gonzalez October 09, 2024 1 1:21am Acute viral sinusitis October 21 12:47pm Generalized anxiety disorder October 132024 2:13pm Post-nasal drip October 23, 2024 2:13pm Dizziness October 23, 2024 2:13pm Headache October 23, 2024 2:13pm Chief Complaint Admit Date Poss Uti, sinus pain August 27, 2024 9:0 1am R30.0 August 27, 2024 9:30 am Amb Documentation September 09, 2024 12:5 4pm [email or web address] [email or web address] September 17, 2024 12: 30pm 3 Month Follow Up September 25, 2024 8: 22am wm September 30, 2024 11 :18am 2 week October 09, 2024 11 :21am sinus sx October 21, 2024 12:47pm H/A-MRI request- issues with school Se ptember 2024 2:13pm thinks she has COVID November 05 12:31pm wm November 20, 2024 8: 12am follow up November 20, 2024 8: 53am Reason for Visit Admit Date Acute viral sinusitis August 27, 2024 9: 01am Urinary frequency August 27, 2024 9:01 am Anxiety September 25, 2024 8: 22am POTS (postural orthostatic tachycardia s yndrome) September 25, 2024 8:22am Anxiety October 09, 2024 11 :21am POTS (postural orthostatic tachycardia s yndrome) October 09, 2024 11:21am PTSD (post-traumatic stress disorder) [facility] 2024 11:21am COVID-19 sandhya gonzalze October 09, 2024 1 1:21am Acute viral [...] 2024 8: 53am Dietary surveillance and counseling 2024 8:53am Exercise counseling November 20, 2024 8: 53am OCD (obsessive compulsive disorder) 2024 8:53am Overweight (BMI 25.0-29.9) November 20, 2024 8:53am Post-COVID syndrome November 20, 2024 8: 53am POTS (postural orthostatic tachycardia s yndrome) November 20, 2024 8:53am PTSD (post-traumatic stress disorder) [facility] 2024 8:53am Chief Complaint Admit Date Poss Uti, sinus pain August 27, 2024 9:0 1am R30.0 August 27, 2024 9:30 am Amb Documentation September 09, 2024 12:5 4pm [email or web address] [email or web address] September 17, 2024 12: 30pm 3 Month Follow Up September 25, 2024 8: 22am wm September 30, 2024 11 :18am 2 week October 09, 2024 11 :21am sinus sx October 21, 2024 12:47pm H/A-MRI request- issues with school Se ptember 2024 2:13pm thinks she has COVID November 05 12:31pm wm November 20, 2024 8: 12am follow up November 20, 2024 8: 53am Discuss note for job and family services November 25, 2024 10:09am Reason for Visit Admit Date Acute viral sinusitis August 27, 2024 9: 01am Urinary frequency August 27, 2024 9:01 am Anxiety September 25, 2024 8: 22am POTS (postural orthostatic tachycardia s yndrome) September 25, 2024 8:22am Anxiety October 09, 2024 11 :21am POTS (postural orthostatic tachycardia s yndrome) October 09, 2024 11:21am PTSD (post-traumatic stress disorder) [facility] 2024 11:21am COVID-19 sandhya gonzalez October 09, 2024 1 1:21am Acute viral [...] 2024 8: 53am Dietary surveillance and counseling 2024 8:53am Exercise counseling November 20, 2024 8: 53am OCD (obsessive compulsive disorder) 2024 8:53am Overweight (BMI 25.0-29.9) November 20, 2024 8:53am Post-COVID syndrome November 20, 2024 8: 53am POTS (postural orthostatic tachycardia s yndrome) November 20, 2024 8:53am PTSD (post-traumatic stress disorder) [facility] 2024 8:53am Generalized weakness November 25, 2024 10:09am Chief Complaint Admit Date 3 Month Follow Up September 25, 2024 8: 22am wm September 30, 2024 11 :18am 2 week October 09, 2024 11 :21am sinus sx October 21, 2024 12:47pm H/A-MRI request- issues with school Se ptember 2024 2:13pm thinks she has COVID November 05 12:31pm wm November 20, 2024 8: 12am follow up November 20, 2024 8: 53am Discuss note for job and family services November 25, 2024 10:09am Generalized Weakness December 11, 2024 8:15am wm December 18, 2024 8 :18am Reason for Visit Admit Date Anxiety September 25, 2024 8: 22am POTS (postural orthostatic tachycardia s yndrome) September 25, 2024 8:22am Anxiety October 09, 2024 11 :21am POTS (postural orthostatic tachycardia s yndrome) October 09, 2024 11:21am PTSD (post-traumatic stress disorder) [facility] 2024 11:21am COVID-19 long hauler October 09, [...] 2024 8: 53am Dietary surveillance and counseling 2024 8:53am Exercise counseling November 20, 2024 8: 53am OCD (obsessive compulsive disorder) 2024 8:53am Overweight (BMI 25.0-29.9) November 20, 2024 8:53am Post-COVID syndrome November 20, 2024 8: 53am POTS (postural orthostatic tachycardia s yndrome) November 20, 2024 8:53am PTSD (post-traumatic stress disorder) [facility] 2024 8:53am POTS (postural orthostatic tachycardia s yndrome) November 25, 2024 10:09am COVID-19 sandhya gonzalez November 25, 2024 10:09am Generalized weakness November 25, 2024 10:09am Chief Complaint Admit Date 3 Month Follow Up September 25, 2024 8: 22am wm September 30, 2024 11 :18am 2 week October 09, 2024 11 :21am sinus sx October 21, 2024 12:47pm H/A-MRI request- issues with school Se ptember 2024 2:13pm thinks she has COVID November 05 12:31pm wm November 20, 2024 8: 12am follow up November 20, 2024 8: 53am Discuss note for job and family services November 25, 2024 10:09am wm December 18, 2024 8 :18am Generalized Weakness December 19, 2024 8:15am 4-week December 23, 2024 10:38am Reason for Visit Admit Date Anxiety September 25, 2024 8: 22am POTS (postural orthostatic tachycardia s yndrome) September 25, 2024 8:22am Anxiety October 09, 2024 11 :21am POTS (postural orthostatic tachycardia s yndrome) October 09, 2024 11:21am PTSD (post-traumatic stress disorder) [facility] 2024 11:21am COVID-19 long hauler October 09, [...] 2024 8: 53am OCD (obsessive compulsive disorder) 2024 8:53am Overweight (BMI 25.0-29.9) November 20, 2024 8:53am Post-COVID syndrome November 20, 2024 8: 53am POTS (postural orthostatic tachycardia s yndrome) November 20, 2024 8:53am PTSD (post-traumatic stress disorder) tober 2024 8:53am POTS (postural orthostatic tachycardia s yndrome) November 25, 2024 10:09am COVID-19 sandhya gonzalez November 25, 2024 10:09am Generalized weakness November 25, 2024 10:09am Abnormal weight gain December 23, 2024 10:38am Anxiety December 23, 2024 10:38am BMI 28.0-28.9,adult December 23, 2024 10:38am Chronic fatigue syndrome December 23, 2024 10:38am Depression December 23, 2024 10:38am Dietary surveillance and counseling Nain rachel 2024 10:38am Exercise counseling December 23, 2024 10:38am OCD (obsessive compulsive disorder) Nain rachel 2024 10:38am Overweight (BMI 25.0-29.9) December 10:38am Post-COVID syndrome December 23, 2024 10:38am POTS (postural orthostatic tachycardia s yndrome) December 23, 2024 10:38am PTSD (post-traumatic stress disorder) No vember 2024 10:38am Additional Source Comments INFORMATION SOURCE (unrecogn ized section and content) DATE CREATED AUTHOR 06/20/2018 [facility] DATE CREATED AUTHOR AUTHOR'S ORGANIZ ATION 04/06/2021 [facility] DATE CREATED AUTHOR AUTHOR'S ORGANIZ ATION 05/20/2022 [facility] DATE CREATED AUTHOR AUTHOR'S ORGANIZ ATION 02/24/2024 [facility] DATE CREATED AUTHOR AUTHOR'S ORGANIZ ATION 04/20/2024 [facility] DATE CREATED AUTHOR AUTHOR'S ORGANIZ ATION 07/14/2024 [facility] DATE CREATED AUTHOR AUTHOR'S ORGANIZ ATION 07/14/2024 [facility] DATE CREATED AUTHOR AUTHOR'S ORGANIZ ATION 08/15/2024 [facility] DATE CREATED AUTHOR AUTHOR'S ORGANIZ ATION 08/21/2024 [facility] DATE CREATED AUTHOR AUTHOR'S ORGANIZ ATION 10/16/2024 [facility] DATE CREATED AUTHOR AUTHOR'S ORGANIZ ATION 11/16/2024 [facility] DATE CREATED AUTHOR AUTHOR'S ORGANIZ ATION 12/10/2024 [facility] DATE CREATED AUTHOR AUTHOR'S ORGANIZ ATION 12/16/2024 [facility] DATE CREATED AUTHOR AUTHOR'S ORGANIZ ATION 12/20/2024 [facility] Source Comments (unrecognize d section and content) In the event this informatio n is protected by the Federal Confidentiality of Alcohol and Drug Abuse Patient Records regulations: The Federal rules restrict any use of the information to criminally investigate or prosecute any alcohol or drug abuse patient.[facility] Center[facility] the event this information is protected by the Federal Confidentiality of Alcohol and Drug Abuse Patient Records regulations: The Federal rules restrict any use of the information to criminally investigate or prosecute any alcohol or drug abuse patient.[facility] CenterIn the event this information is protected by the Federal Confidentiality of Alcohol and Drug Abuse Patient Records regulations: The Federal rules restrict any use of the information to criminally investigate or prosecute any alcohol or drug abuse patient.[facility] CenterIn the event this information is protected by the Federal Confidentiality of Alcohol and Drug Abuse Patient Records regulations: The Federal rules restrict any use of the information to criminally investigate or prosecute any alcohol or drug abuse patient.[facility] CenterIn the event this information is protected by the Federal Confidentiality of Alcohol and Drug Abuse Patient Records regulations: The Federal rules restrict any use of the information to criminally investigate or prosecute any alcohol or drug abuse patient.[facility] CenterIn the event this information is protected by the Federal Confidentiality of Alcohol and Drug Abuse Patient Records regulations: The Federal rules restrict any use of the information to criminally investigate or prosecute any alcohol or drug abuse patient.[facility] CenterIn the event this information is protected by the Federal Confidentiality of Alcohol and Drug Abuse Patient Records regulations: The Federal rules restrict any use of the information to criminally investigate or prosecute any alcohol or drug abuse patient.[facility] CenterIn the event this information is protected by the Federal Confidentiality of Alcohol and Drug Abuse Patient Records regulations: The Federal rules restrict any use of the information to criminally investigate or prosecute any alcohol or drug abuse patient.[facility] CenterIn the event this information is protected by the Federal Confidentiality of Alcohol and Drug Abuse Patient Records regulations: The Federal rules restrict any use of the information to criminally investigate or prosecute any alcohol or drug abuse patient.[facility] CenterIn the event this information is protected by the Federal Confidentiality of Alcohol and Drug Abuse Patient Records regulations: The Federal rules restrict any use of the information to criminally investigate or prosecute any alcohol or drug abuse patient.[facility] CenterIn the event this information is protected by the Federal Confidentiality of Alcohol and Drug Abuse Patient Records regulations: The Federal rules restrict any use of the information to criminally investigate or prosecute any alcohol or drug abuse patient.[facility] CenterIn the event this information is protected by the Federal Confidentiality of Alcohol and Drug Abuse Patient Records regulations: The Federal rules restrict any use of the information to criminally investigate or prosecute any alcohol or drug abuse patient.[facility] CenterIn the event this information is protected by the Federal Confidentiality of Alcohol and Drug Abuse Patient Records regulations: The Federal rules restrict any use of the information to criminally investigate or prosecute any alcohol or drug abuse patient.[facility] CenterIn the event this information is protected by the Federal Confidentiality of Alcohol and Drug Abuse Patient Records regulations: The Federal rules restrict any use of the information to criminally investigate or prosecute any alcohol or drug abuse patient.[facility] CenterIn the event this information is protected by the Federal Confidentiality of Alcohol and Drug Abuse Patient Records regulations: The Federal rules restrict any use of the information to criminally investigate or prosecute any alcohol or drug abuse patient.[facility] CenterIn the event this information is protected by the Federal Confidentiality of Alcohol and Drug Abuse Patient Records regulations: The Federal rules restrict any use of the information to criminally investigate or prosecute any alcohol or drug abuse patient.[facility] CenterIn the event this information is protected by the Federal Confidentiality of Alcohol and Drug Abuse Patient Records regulations: The Federal rules restrict any use of the information to criminally investigate or prosecute any alcohol or drug abuse patient.[facility] CenterIn the event this information is protected by the Federal Confidentiality of Alcohol and Drug Abuse Patient Records regulations: The Federal rules restrict any use of the information to criminally investigate or prosecute any alcohol or drug abuse patient.[facility] CenterIn the event this information is protected by the Federal Confidentiality of Alcohol and Drug Abuse Patient Records regulations: The Federal rules restrict any use of the information to criminally investigate or prosecute any alcohol or drug abuse patient.[facility] CenterIn the event this information is protected by the Federal Confidentiality of Alcohol and Drug Abuse Patient Records regulations: The Federal rules restrict any use of the information to criminally investigate or prosecute any alcohol or drug abuse patient.[facility] CenterIn the event this information is protected by the Federal Confidentiality of Alcohol and Drug Abuse Patient Records regulations: The Federal rules restrict any use of the information to criminally investigate or prosecute any alcohol or drug abuse patient.[facility] CenterIn the event this information is protected by the Federal Confidentiality of Alcohol and Drug Abuse Patient Records regulations: The Federal rules restrict any use of the information to criminally investigate or prosecute any alcohol or drug abuse patient.[facility] CenterIn the event this information is protected by the Federal Confidentiality of Alcohol and Drug Abuse Patient Records regulations: The Federal rules restrict any use of the information to criminally investigate or prosecute any alcohol or drug abuse patient.[facility] CenterIn the event this information is protected by the Federal Confidentiality of Alcohol and Drug Abuse Patient Records regulations: The Federal rules restrict any use of the information to criminally investigate or prosecute any alcohol or drug abuse patient.[facility] CenterIn the event this information is protected by the Federal Confidentiality of Alcohol and Drug Abuse Patient Records regulations: The Federal rules restrict any use of the information to criminally investigate or prosecute any alcohol or drug abuse patient.[facility] CenterIn the event this information is protected by the Federal Confidentiality of Alcohol and Drug Abuse Patient Records regulations: The Federal rules restrict any use of the information to criminally investigate or prosecute any alcohol or drug abuse patient.[facility] CenterIn the event this information is protected by the Federal Confidentiality of Alcohol and Drug Abuse Patient Records regulations: The Federal rules restrict any use of the information to criminally investigate or prosecute any alcohol or drug abuse patient.[place] [facility] CenterIn the event this information is protected by the Federal Confidentiality of Alcohol and Drug Abuse Patient Records regulations: The Federal rules restrict any use of the information to criminally investigate or prosecute any alcohol or drug abuse patient.[facility] CenterIn the event this information is protected by the Federal Confidentiality of Alcohol and Drug Abuse Patient Records regulations: The Federal rules restrict any use of the information to criminally investigate or prosecute any alcohol or drug abuse patient.[facility] CenterIn the event this information is protected by the Federal Confidentiality of Alcohol and Drug Abuse Patient Records regulations: The Federal rules restrict any use of the information to criminally investigate or prosecute any alcohol or drug abuse patient.[facility] CenterIn the event this information is protected by the Federal Confidentiality of Alcohol and Drug Abuse Patient Records regulations: The Federal rules restrict any use of the information to criminally investigate or prosecute any alcohol or drug abuse patient.[facility] CenterIn the event this information is protected by the Federal Confidentiality of Alcohol and Drug Abuse Patient Records regulations: The Federal rules restrict any use of the information to criminally investigate or prosecute any alcohol or drug abuse patient.[facility] CenterIn the event this information is protected by the Federal Confidentiality of Alcohol and Drug Abuse Patient Records regulations: The Federal rules restrict any use of the information to criminally investigate or prosecute any alcohol or drug abuse patient.[facility] CenterIn the event this information is protected by the Federal Confidentiality of Alcohol and Drug Abuse Patient Records regulations: The Federal rules restrict any use of the information to criminally investigate or prosecute any alcohol or drug abuse patient.[facility] CenterIn the event this information is protected by the Federal Confidentiality of Alcohol and Drug Abuse Patient Records regulations: The Federal rules restrict any use of the information to criminally investigate or prosecute any alcohol or drug abuse patient.[facility] CenterIn the event this information is protected by the Federal Confidentiality of Alcohol and Drug Abuse Patient Records regulations: The Federal rules restrict any use of the information to criminally investigate or prosecute any alcohol or drug abuse patient.[facility] CenterIn the event this information is protected by the Federal Confidentiality of Alcohol and Drug Abuse Patient Records regulations: The Federal rules restrict any use of the information to criminally investigate or prosecute any alcohol or drug abuse patient.[facility] CenterIn the event this information is protected by the Federal Confidentiality of Alcohol and Drug Abuse Patient Records regulations: The Federal rules restrict any use of the information to criminally investigate or prosecute any alcohol or drug abuse patient.[facility] CenterIn the event this information is protected by the Federal Confidentiality of Alcohol and Drug Abuse Patient Records regulations: The Federal rules restrict any use of the information to criminally investigate or prosecute any alcohol or drug abuse patient.[facility] CenterIn the event this information is protected by the Federal Confidentiality of Alcohol and Drug Abuse Patient Records regulations: The Federal rules restrict any use of the information to criminally investigate or prosecute any alcohol or drug abuse patient.[facility] CenterIn the event this information is protected by the Federal Confidentiality of Alcohol and Drug Abuse Patient Records regulations: The Federal rules restrict any use of the information to criminally investigate or prosecute any alcohol or drug abuse patient.[facility] CenterIn the event this information is protected by the Federal Confidentiality of Alcohol and Drug Abuse Patient Records regulations: The Federal rules restrict any use of the information to criminally investigate or prosecute any alcohol or drug abuse patient.[facility] CenterIn the event this information is protected by the Federal Confidentiality of Alcohol and Drug Abuse Patient Records regulations: The Federal rules restrict any use of the information to criminally investigate or prosecute any alcohol or drug abuse patient.[facility] CenterIn the event this information is protected by the Federal Confidentiality of Alcohol and Drug Abuse Patient Records regulations: The Federal rules restrict any use of the information to criminally investigate or prosecute any alcohol or drug abuse patient.[facility] CenterIn the event this information is protected by the Federal Confidentiality of Alcohol and Drug Abuse Patient Records regulations: The Federal rules restrict any use of the information to criminally investigate or prosecute any alcohol or drug abuse patient.[facility] CenterIn the event this information is protected by the Federal Confidentiality of Alcohol and Drug Abuse Patient Records regulations: The Federal rules restrict any use of the information to criminally investigate or prosecute any alcohol or drug abuse patient.[facility] CenterIn the event this information is protected by the Federal Confidentiality of Alcohol and Drug Abuse Patient Records regulations: The Federal rules restrict any use of the information to criminally investigate or prosecute any alcohol or drug abuse patient.[facility] CenterIn the event this information is protected by the Federal Confidentiality of Alcohol and Drug Abuse Patient Records regulations: The Federal rules restrict any use of the information to criminally investigate or prosecute any alcohol or drug abuse patient.[facility] CenterIn the event this information is protected by the Federal Confidentiality of Alcohol and Drug Abuse Patient Records regulations: The Federal rules restrict any use of the information to criminally investigate or prosecute any alcohol or drug abuse patient.[facility] CenterIn the event this information is protected by the Federal Confidentiality of Alcohol and Drug Abuse Patient Records regulations: The Federal rules restrict any use of the information to criminally investigate or prosecute any alcohol or drug abuse patient.[facility] CenterIn the event this information is protected by the Federal Confidentiality of Alcohol and Drug Abuse Patient Records regulations: The Federal rules restrict any use of the information to criminally investigate or prosecute any alcohol or drug abuse patient.[facility] CenterIn the event this information is protected by the Federal Confidentiality of Alcohol and Drug Abuse Patient Records regulations: The Federal rules restrict any use of the information to criminally investigate or prosecute any alcohol or drug abuse patient.[facility] CenterIn the event this information is protected by the Federal Confidentiality of Alcohol and Drug Abuse Patient Records regulations: The Federal rules restrict any use of the information to criminally investigate or prosecute any alcohol or drug abuse patient.[facility] CenterIn the event this information is protected by the Federal Confidentiality of Alcohol and Drug Abuse Patient Records regulations: The Federal rules restrict any use of the information to criminally investigate or prosecute any alcohol or drug abuse patient.[facility] CenterIn the event this information is protected by the Federal Confidentiality of Alcohol and Drug Abuse Patient Records regulations: The Federal rules restrict any use of the information to criminally investigate or prosecute any alcohol or drug abuse patient.[facility] CenterIn the event this information is protected by the Federal Confidentiality of Alcohol and Drug Abuse Patient Records regulations: The Federal rules restrict any use of the information to criminally investigate or prosecute any alcohol or drug abuse patient.[facility] CenterIn the event this information is protected by the Federal Confidentiality of Alcohol and Drug Abuse Patient Records regulations: The Federal rules restrict any use of the information to criminally investigate or prosecute any alcohol or drug abuse patient.[facility] CenterIn the event this information is protected by the Federal Confidentiality of Alcohol and Drug Abuse Patient Records regulations: The Federal rules restrict any use of the information to criminally investigate or prosecute any alcohol or drug abuse patient.[facility] CenterIn the event this information is protected by the Federal Confidentiality of Alcohol and Drug Abuse Patient Records regulations: The Federal rules restrict any use of the information to criminally investigate or prosecute any alcohol or drug abuse patient.[facility] CenterIn the event this information is protected by the Federal Confidentiality of Alcohol and Drug Abuse Patient Records regulations: The Federal rules restrict any use of the information to criminally investigate or prosecute any alcohol or drug abuse patient.[facility] CenterIn the event this information is protected by the Federal Confidentiality of Alcohol and Drug Abuse Patient Records regulations: The Federal rules restrict any use of the information to criminally investigate or prosecute any alcohol or drug abuse patient.[facility] CenterIn the event this information is protected by the Federal Confidentiality of Alcohol and Drug Abuse Patient Records regulations: The Federal rules restrict any use of the information to criminally investigate or prosecute any alcohol or drug abuse patient.[facility] CenterIn the event this information is protected by the Federal Confidentiality of Alcohol and Drug Abuse Patient Records regulations: The Federal rules restrict any use of the information to criminally investigate or prosecute any alcohol or drug abuse patient.[facility] CenterIn the event this information is protected by the Federal Confidentiality of Alcohol and Drug Abuse Patient Records regulations: The Federal rules restrict any use of the information to criminally investigate or prosecute any alcohol or drug abuse patient.[facility] CenterIn the event this information is protected by the Federal Confidentiality of Alcohol and Drug Abuse Patient Records regulations: The Federal rules restrict any use of the information to criminally investigate or prosecute any alcohol or drug abuse patient.[facility] CenterIn the event this information is protected by the Federal Confidentiality of Alcohol and Drug Abuse Patient Records regulations: The Federal rules restrict any use of the information to criminally investigate or prosecute any alcohol or drug abuse patient.[facility] CenterIn the event this information is protected by the Federal Confidentiality of Alcohol and Drug Abuse Patient Records regulations: The Federal rules restrict any use of the information to criminally investigate or prosecute any alcohol or drug abuse patient.[facility] CenterIn the event this information is protected by the Federal Confidentiality of Alcohol and Drug Abuse Patient Records regulations: The Federal rules restrict any use of the information to criminally investigate or prosecute any alcohol or drug abuse patient.[facility] CenterIn the event this information is protected by the Federal Confidentiality of Alcohol and Drug Abuse Patient Records regulations: The Federal rules restrict any use of the information to criminally investigate or prosecute any alcohol or drug abuse patient.[facility] CenterIn the event this information is protected by the Federal Confidentiality of Alcohol and Drug Abuse Patient Records regulations: The Federal rules restrict any use of the information to criminally investigate or prosecute any alcohol or drug abuse patient.[facility] CenterIn the event this information is protected by the Federal Confidentiality of Alcohol and Drug Abuse Patient Records regulations: The Federal rules restrict any use of the information to criminally investigate or prosecute any alcohol or drug abuse patient.[facility] CenterIn the event this information is protected by the Federal Confidentiality of Alcohol and Drug Abuse Patient Records regulations: The Federal rules restrict any use of the information to criminally investigate or prosecute any alcohol or drug abuse patient.[facility] CenterIn the event this information is protected by the Federal Confidentiality of Alcohol and Drug Abuse Patient Records regulations: The Federal rules restrict any use of the information to criminally investigate or prosecute any alcohol or drug abuse patient.[facility] CenterIn the event this information is protected by the Federal Confidentiality of Alcohol and Drug Abuse Patient Records regulations: The Federal rules restrict any use of the information to criminally investigate or prosecute any alcohol or drug abuse patient.[facility] CenterIn the event this information is protected by the Federal Confidentiality of Alcohol and Drug Abuse Patient Records regulations: The Federal rules restrict any use of the information to criminally investigate or prosecute any alcohol or drug abuse patient.[facility] CenterIn the event this information is protected by the Federal Confidentiality of Alcohol and Drug Abuse Patient Records regulations: The Federal rules restrict any use of the information to criminally investigate or prosecute any alcohol or drug abuse patient.[facility] CenterIn the event this information is protected by the Federal Confidentiality of Alcohol and Drug Abuse Patient Records regulations: The Federal rules restrict any use of the information to criminally investigate or prosecute any alcohol or drug abuse patient.[facility] CenterIn the event this information is protected by the Federal Confidentiality of Alcohol and Drug Abuse Patient Records regulations: The Federal rules restrict any use of the information to criminally investigate or prosecute any alcohol or drug abuse patient.[facility] CenterIn the event this information is protected by the Federal Confidentiality of Alcohol and Drug Abuse Patient Records regulations: The Federal rules restrict any use of the information to criminally investigate or prosecute any alcohol or drug abuse patient.[facility] CenterIn the event this information is protected by the Federal Confidentiality of Alcohol and Drug Abuse Patient Records regulations: The Federal rules restrict any use of the information to criminally investigate or prosecute any alcohol or drug abuse patient.[facility] CenterIn the event this information is protected by the Federal Confidentiality of Alcohol and Drug Abuse Patient Records regulations: The Federal rules restrict any use of the information to criminally investigate or prosecute any alcohol or drug abuse patient.[facility] CenterIn the event this information is protected by the Federal Confidentiality of Alcohol and Drug Abuse Patient Records regulations: The Federal rules restrict any use of the information to criminally investigate or prosecute any alcohol or drug abuse patient.[facility] CenterIn the event this information is protected by the Federal Confidentiality of Alcohol and Drug Abuse Patient Records regulations: The Federal rules restrict any use of the information to criminally investigate or prosecute any alcohol or drug abuse patient.[facility] CenterIn the event this information is protected by the Federal Confidentiality of Alcohol and Drug Abuse Patient Records regulations: The Federal rules restrict any use of the information to criminally investigate or prosecute any alcohol or drug abuse patient.[facility] CenterIn the event this information is protected by the Federal Confidentiality of Alcohol and Drug Abuse Patient Records regulations: The Federal rules restrict any use of the information to criminally investigate or prosecute any alcohol or drug abuse patient.[facility] CenterIn the event this information is protected by the Federal Confidentiality of Alcohol and Drug Abuse Patient Records regulations: The Federal rules restrict any use of the information to criminally investigate or prosecute any alcohol or drug abuse patient.[facility] CenterIn the event this information is protected by the Federal Confidentiality of Alcohol and Drug Abuse Patient Records regulations: The Federal rules restrict any use of the information to criminally investigate or prosecute any alcohol or drug abuse patient.[facility] CenterIn the event this information is protected by the Federal Confidentiality of Alcohol and Drug Abuse Patient Records regulations: The Federal rules restrict any use of the information to criminally investigate or prosecute any alcohol or drug abuse patient.[facility] CenterIn the event this information is protected by the Federal Confidentiality of Alcohol and Drug Abuse Patient Records regulations: The Federal rules restrict any use of the information to criminally investigate or prosecute any alcohol or drug abuse patient.[facility] CenterIn the event this information is protected by the Federal Confidentiality of Alcohol and Drug Abuse Patient Records regulations: The Federal rules restrict any use of the information to criminally investigate or prosecute any alcohol or drug abuse patient.[facility] CenterIn the event this information is protected by the Federal Confidentiality of Alcohol and Drug Abuse Patient Records regulations: The Federal rules restrict any use of the information to criminally investigate or prosecute any alcohol or drug abuse patient.[facility] CenterIn the event this information is protected by the Federal Confidentiality of Alcohol and Drug Abuse Patient Records regulations: The Federal rules restrict any use of the information to criminally investigate or prosecute any alcohol or drug abuse patient.[facility] CenterIn the event this information is protected by the Federal Confidentiality of Alcohol and Drug Abuse Patient Records regulations: The Federal rules restrict any use of the information to criminally investigate or prosecute any alcohol or drug abuse patient.[facility] CenterIn the event this information is protected by the Federal Confidentiality of Alcohol and Drug Abuse Patient Records regulations: The Federal rules restrict any use of the information to criminally investigate or prosecute any alcohol or drug abuse patient.[facility] CenterIn the event this information is protected by the Federal Confidentiality of Alcohol and Drug Abuse Patient Records regulations: The Federal rules restrict any use of the information to criminally investigate or prosecute any alcohol or drug abuse patient.[facility] CenterIn the event this information is protected by the Federal Confidentiality of Alcohol and Drug Abuse Patient Records regulations: The Federal rules restrict any use of the information to criminally investigate or prosecute any alcohol or drug abuse patient.[facility] CenterIn the event this information is protected by the Federal Confidentiality of Alcohol and Drug Abuse Patient Records regulations: The Federal rules restrict any use of the information to criminally investigate or prosecute any alcohol or drug abuse patient.[facility] CenterIn the event this information is protected by the Federal Confidentiality of Alcohol and Drug Abuse Patient Records regulations: The Federal rules restrict any use of the information to criminally investigate or prosecute any alcohol or drug abuse patient.[facility] CenterIn the event this information is protected by the Federal Confidentiality of Alcohol and Drug Abuse Patient Records regulations: The Federal rules restrict any use of the information to criminally investigate or prosecute any alcohol or drug abuse patient.[facility] CenterIn the event this information is protected by the Federal Confidentiality of Alcohol and Drug Abuse Patient Records regulations: The Federal rules restrict any use of the information to criminally investigate or prosecute any alcohol or drug abuse patient.[facility] CenterIn the event this information is protected by the Federal Confidentiality of Alcohol and Drug Abuse Patient Records regulations: The Federal rules restrict any use of the information to criminally investigate or prosecute any alcohol or drug abuse patient.[facility] CenterIn the event this information is protected by the Federal Confidentiality of Alcohol and Drug Abuse Patient Records regulations: The Federal rules restrict any use of the information to criminally investigate or prosecute any alcohol or drug abuse patient.[facility] CenterIn the event this information is protected by the Federal Confidentiality of Alcohol and Drug Abuse Patient Records regulations: The Federal rules restrict any use of the information to criminally investigate or prosecute any alcohol or drug abuse patient.[facility] CenterIn the event this information is protected by the Federal Confidentiality of Alcohol and Drug Abuse Patient Records regulations: The Federal rules restrict any use of the information to criminally investigate or prosecute any alcohol or drug abuse patient.[facility] CenterIn the event this information is protected by the Federal Confidentiality of Alcohol and Drug Abuse Patient Records regulations: The Federal rules restrict any use of the information to criminally investigate or prosecute any alcohol or drug abuse patient.[facility] CenterIn the event this information is protected by the Federal Confidentiality of Alcohol and Drug Abuse Patient Records regulations: The Federal rules restrict any use of the information to criminally investigate or prosecute any alcohol or drug abuse patient.[facility] CenterIn the event this information is protected by the Federal Confidentiality of Alcohol and Drug Abuse Patient Records regulations: The Federal rules restrict any use of the information to criminally investigate or prosecute any alcohol or drug abuse patient.[facility] CenterIn the event this information is protected by the Federal Confidentiality of Alcohol and Drug Abuse Patient Records regulations: The Federal rules restrict any use of the information to criminally investigate or prosecute any alcohol or drug abuse patient.[facility] CenterIn the event this information is protected by the Federal Confidentiality of Alcohol and Drug Abuse Patient Records regulations: The Federal rules restrict any use of the information to criminally investigate or prosecute any alcohol or drug abuse patient.[facility] CenterIn the event this information is protected by the Federal Confidentiality of Alcohol and Drug Abuse Patient Records regulations: The Federal rules restrict any use of the information to criminally investigate or prosecute any alcohol or drug abuse patient.[facility] CenterIn the event this information is protected by the Federal Confidentiality of Alcohol and Drug Abuse Patient Records regulations: The Federal rules restrict any use of the information to criminally investigate or prosecute any alcohol or drug abuse patient.[facility] CenterIn the event this information is protected by the Federal Confidentiality of Alcohol and Drug Abuse Patient Records regulations: The Federal rules restrict any use of the information to criminally investigate or prosecute any alcohol or drug abuse patient.[facility] CenterIn the event this information is protected by the Federal Confidentiality of Alcohol and Drug Abuse Patient Records regulations: The Federal rules restrict any use of the information to criminally investigate or prosecute any alcohol or drug abuse patient.[facility] CenterIn the event this information is protected by the Federal Confidentiality of Alcohol and Drug Abuse Patient Records regulations: The Federal rules restrict any use of the information to criminally investigate or prosecute any alcohol or drug abuse patient.[facility] CenterIn the event this information is protected by the Federal Confidentiality of Alcohol and Drug Abuse Patient Records regulations: The Federal rules restrict any use of the information to criminally investigate or prosecute any alcohol or drug abuse patient.[facility] CenterIn the event this information is protected by the Federal Confidentiality of Alcohol and Drug Abuse Patient Records regulations: The Federal rules restrict any use of the information to criminally investigate or prosecute any alcohol or drug abuse patient.[facility] CenterIn the event this information is protected by the Federal Confidentiality of Alcohol and Drug Abuse Patient Records regulations: The Federal rules restrict any use of the information to criminally investigate or prosecute any alcohol or drug abuse patient.[facility] CenterIn the event this information is protected by the Federal Confidentiality of Alcohol and Drug Abuse Patient Records regulations: The Federal rules restrict any use of the information to criminally investigate or prosecute any alcohol or drug abuse patient.[facility] CenterIn the event this information is protected by the Federal Confidentiality of Alcohol and Drug Abuse Patient Records regulations: The Federal rules restrict any use of the information to criminally investigate or prosecute any alcohol or drug abuse patient.[facility] CenterIn the event this information is protected by the Federal Confidentiality of Alcohol and Drug Abuse Patient Records regulations: The Federal rules restrict any use of the information to criminally investigate or prosecute any alcohol or drug abuse patient.[facility] CenterIn the event this information is protected by the Federal Confidentiality of Alcohol and Drug Abuse Patient Records regulations: The Federal rules restrict any use of the information to criminally investigate or prosecute any alcohol or drug abuse patient.[facility] CenterIn the event this information is protected by the Federal Confidentiality of Alcohol and Drug Abuse Patient Records regulations: The Federal rules restrict any use of the information to criminally investigate or prosecute any alcohol or drug abuse patient.[facility] CenterIn the event this information is protected by the Federal Confidentiality of Alcohol and Drug Abuse Patient Records regulations: The Federal rules restrict any use of the information to criminally investigate or prosecute any alcohol or drug abuse patient.[facility] CenterIn the event this information is protected by the Federal Confidentiality of Alcohol and Drug Abuse Patient Records regulations: The Federal rules restrict any use of the information to criminally investigate or prosecute any alcohol or drug abuse patient.[facility] CenterIn the event this information is protected by the Federal Confidentiality of Alcohol and Drug Abuse Patient Records regulations: The Federal rules restrict any use of the information to criminally investigate or prosecute any alcohol or drug abuse patient.[facility] CenterIn the event this information is protected by the Federal Confidentiality of Alcohol and Drug Abuse Patient Records regulations: The Federal rules restrict any use of the information to criminally investigate or prosecute any alcohol or drug abuse patient.[facility] CenterIn the event this information is protected by the Federal Confidentiality of Alcohol and Drug Abuse Patient Records regulations: The Federal rules restrict any use of the information to criminally investigate or prosecute any alcohol or drug abuse patient.[facility] CenterIn the event this information is protected by the Federal Confidentiality of Alcohol and Drug Abuse Patient Records regulations: The Federal rules restrict any use of the information to criminally investigate or prosecute any alcohol or drug abuse patient.[facility] CenterIn the event this information is protected by the Federal Confidentiality of Alcohol and Drug Abuse Patient Records regulations: The Federal rules restrict any use of the information to criminally investigate or prosecute any alcohol or drug abuse patient.[facility] CenterIn the event this information is protected by the Federal Confidentiality of Alcohol and Drug Abuse Patient Records regulations: The Federal rules restrict any use of the information to criminally investigate or prosecute any alcohol or drug abuse patient.[facility] CenterIn the event this information is protected by the Federal Confidentiality of Alcohol and Drug Abuse Patient Records regulations: The Federal rules restrict any use of the information to criminally investigate or prosecute any alcohol or drug abuse patient.[facility] CenterIn the event this information is protected by the Federal Confidentiality of Alcohol and Drug Abuse Patient Records regulations: The Federal rules restrict any use of the information to criminally investigate or prosecute any alcohol or drug abuse patient.[facility] CenterIn the event this information is protected by the Federal Confidentiality of Alcohol and Drug Abuse Patient Records regulations: The Federal rules restrict any use of the information to criminally investigate or prosecute any alcohol or drug abuse patient.[facility] CenterIn the event this information is protected by the Federal Confidentiality of Alcohol and Drug Abuse Patient Records regulations: The Federal rules restrict any use of the information to criminally investigate or prosecute any alcohol or drug abuse patient.[facility] CenterIn the event this information is protected by the Federal Confidentiality of Alcohol and Drug Abuse Patient Records regulations: The Federal rules restrict any use of the information to criminally investigate or prosecute any alcohol or drug abuse patient.[facility] CenterIn the event this information is protected by the Federal Confidentiality of Alcohol and Drug Abuse Patient Records regulations: The Federal rules restrict any use of the information to criminally investigate or prosecute any alcohol or drug abuse patient.[facility] CenterIn the event this information is protected by the Federal Confidentiality of Alcohol and Drug Abuse Patient Records regulations: The Federal rules restrict any use of the information to criminally investigate or prosecute any alcohol or drug abuse patient.[facility] CenterIn the event this information is protected by the Federal Confidentiality of Alcohol and Drug Abuse Patient Records regulations: The Federal rules restrict any use of the information to criminally investigate or prosecute any alcohol or drug abuse patient.[facility] CenterIn the event this information is protected by the Federal Confidentiality of Alcohol and Drug Abuse Patient Records regulations: The Federal rules restrict any use of the information to criminally investigate or prosecute any alcohol or drug abuse patient.[facility] CenterIn the event this information is protected by the Federal Confidentiality of Alcohol and Drug Abuse Patient Records regulations: The Federal rules restrict any use of the information to criminally investigate or prosecute any alcohol or drug abuse patient.[facility] CenterIn the event this information is protected by the Federal Confidentiality of Alcohol and Drug Abuse Patient Records regulations: The Federal rules restrict any use of the information to criminally investigate or prosecute any alcohol or drug abuse patient.[facility] CenterIn the event this information is protected by the Federal Confidentiality of Alcohol and Drug Abuse Patient Records regulations: The Federal rules restrict any use of the information to criminally investigate or prosecute any alcohol or drug abuse patient.[facility] CenterIn the event this information is protected by the Federal Confidentiality of Alcohol and Drug Abuse Patient Records regulations: The Federal rules restrict any use of the information to criminally investigate or prosecute any alcohol or drug abuse patient.[facility] CenterIn the event this information is protected by the Federal Confidentiality of Alcohol and Drug Abuse Patient Records regulations: The Federal rules restrict any use of the information to criminally investigate or prosecute any alcohol or drug abuse patient.[facility] CenterIn the event this information is protected by the Federal Confidentiality of Alcohol and Drug Abuse Patient Records regulations: The Federal rules restrict any use of the information to criminally investigate or prosecute any alcohol or drug abuse patient.[facility] CenterIn the event this information is protected by the Federal Confidentiality of Alcohol and Drug Abuse Patient Records regulations: The Federal rules restrict any use of the information to criminally investigate or prosecute any alcohol or drug abuse patient.[facility] CenterIn the event this information is protected by the Federal Confidentiality of Alcohol and Drug Abuse Patient Records regulations: The Federal rules restrict any use of the information to criminally investigate or prosecute any alcohol or drug abuse patient.[facility] CenterIn the event this information is protected by the Federal Confidentiality of Alcohol and Drug Abuse Patient Records regulations: The Federal rules restrict any use of the information to criminally investigate or prosecute any alcohol or drug abuse patient.[facility] CenterIn the event this information is protected by the Federal Confidentiality of Alcohol and Drug Abuse Patient Records regulations: The Federal rules restrict any use of the information to criminally investigate or prosecute any alcohol or drug abuse patient.[facility] CenterIn the event this information is protected by the Federal Confidentiality of Alcohol and Drug Abuse Patient Records regulations: The Federal rules restrict any use of the information to criminally investigate or prosecute any alcohol or drug abuse patient.[facility] CenterIn the event this information is protected by the Federal Confidentiality of Alcohol and Drug Abuse Patient Records regulations: The Federal rules restrict any use of the information to criminally investigate or prosecute any alcohol or drug abuse patient.[facility] CenterIn the event this information is protected by the Federal Confidentiality of Alcohol and Drug Abuse Patient Records regulations: The Federal rules restrict any use of the information to criminally investigate or prosecute any alcohol or drug abuse patient.[facility] CenterIn the event this information is protected by the Federal Confidentiality of Alcohol and Drug Abuse Patient Records regulations: The Federal rules restrict any use of the information to criminally investigate or prosecute any alcohol or drug abuse patient.[facility] CenterIn the event this information is protected by the Federal Confidentiality of Alcohol and Drug Abuse Patient Records regulations: The Federal rules restrict any use of the information to criminally investigate or prosecute any alcohol or drug abuse patient.[facility] CenterIn the event this information is protected by the Federal Confidentiality of Alcohol and Drug Abuse Patient Records regulations: The Federal rules restrict any use of the information to criminally investigate or prosecute any alcohol or drug abuse patient.[facility] CenterIn the event this information is protected by the Federal Confidentiality of Alcohol and Drug Abuse Patient Records regulations: The Federal rules restrict any use of the information to criminally investigate or prosecute any alcohol or drug abuse patient.[facility] CenterIn the event this information is protected by the Federal Confidentiality of Alcohol and Drug Abuse Patient Records regulations: The Federal rules restrict any use of the information to criminally investigate or prosecute any alcohol or drug abuse patient.[facility] CenterIn the event this information is protected by the Federal Confidentiality of Alcohol and Drug Abuse Patient Records regulations: The Federal rules restrict any use of the information to criminally investigate or prosecute any alcohol or drug abuse patient.[facility] CenterIn the event this information is protected by the Federal Confidentiality of Alcohol and Drug Abuse Patient Records regulations: The Federal rules restrict any use of the information to criminally investigate or prosecute any alcohol or drug abuse patient.[facility] CenterIn the event this information is protected by the Federal Confidentiality of Alcohol and Drug Abuse Patient Records regulations: The Federal rules restrict any use of the information to criminally investigate or prosecute any alcohol or drug abuse patient.[facility] CenterIn the event this information is protected by the Federal Confidentiality of Alcohol and Drug Abuse Patient Records regulations: The Federal rules restrict any use of the information to criminally investigate or prosecute any alcohol or drug abuse patient.[facility] CenterIn the event this information is protected by the Federal Confidentiality of Alcohol and Drug Abuse Patient Records regulations: The Federal rules restrict any use of the information to criminally investigate or prosecute any alcohol or drug abuse patient.[facility] CenterIn the event this information is protected by the Federal Confidentiality of Alcohol and Drug Abuse Patient Records regulations: The Federal rules restrict any use of the information to criminally investigate or prosecute any alcohol or drug abuse patient.[facility] CenterIn the event this information is protected by the Federal Confidentiality of Alcohol and Drug Abuse Patient Records regulations: The Federal rules restrict any use of the information to criminally investigate or prosecute any alcohol or drug abuse patient.[facility] CenterIn the event this information is protected by the Federal Confidentiality of Alcohol and Drug Abuse Patient Records regulations: The Federal rules restrict any use of the information to criminally investigate or prosecute any alcohol or drug abuse patient.[facility] CenterIn the event this information is protected by the Federal Confidentiality of Alcohol and Drug Abuse Patient Records regulations: The Federal rules restrict any use of the information to criminally investigate or prosecute any alcohol or drug abuse patient.[facility] CenterIn the event this information is protected by the Federal Confidentiality of Alcohol and Drug Abuse Patient Records regulations: The Federal rules restrict any use of the information to criminally investigate or prosecute any alcohol or drug abuse patient.[facility] CenterIn the event this information is protected by the Federal Confidentiality of Alcohol and Drug Abuse Patient Records regulations: The Federal rules restrict any use of the information to criminally investigate or prosecute any alcohol or drug abuse patient.[facility] CenterIn the event this information is protected by the Federal Confidentiality of Alcohol and Drug Abuse Patient Records regulations: The Federal rules restrict any use of the information to criminally investigate or prosecute any alcohol or drug abuse patient.[facility] CenterIn the event this information is protected by the Federal Confidentiality of Alcohol and Drug Abuse Patient Records regulations: The Federal rules restrict any use of the information to criminally investigate or prosecute any alcohol or drug abuse patient.[facility] CenterIn the event this information is protected by the Federal Confidentiality of Alcohol and Drug Abuse Patient Records regulations: The Federal rules restrict any use of the information to criminally investigate or prosecute any alcohol or drug abuse patient.[facility] CenterIn the event this information is protected by the Federal Confidentiality of Alcohol and Drug Abuse Patient Records regulations: The Federal rules restrict any use of the information to criminally investigate or prosecute any alcohol or drug abuse patient.[facility] CenterIn the event this information is protected by the Federal Confidentiality of Alcohol and Drug Abuse Patient Records regulations: The Federal rules restrict any use of the information to criminally investigate or prosecute any alcohol or drug abuse patient.[facility] CenterIn the event this information is protected by the Federal Confidentiality of Alcohol and Drug Abuse Patient Records regulations: The Federal rules restrict any use of the information to criminally investigate or prosecute any alcohol or drug abuse patient.[facility] CenterIn the event this information is protected by the Federal Confidentiality of Alcohol and Drug Abuse Patient Records regulations: The Federal rules restrict any use of the information to criminally investigate or prosecute any alcohol or drug abuse patient.[facility] CenterIn the event this information is protected by the Federal Confidentiality of Alcohol and Drug Abuse Patient Records regulations: The Federal rules restrict any use of the information to criminally investigate or prosecute any alcohol or drug abuse patient.[facility] CenterIn the event this information is protected by the Federal Confidentiality of Alcohol and Drug Abuse Patient Records regulations: The Federal rules restrict any use of the information to criminally investigate or prosecute any alcohol or drug abuse patient.[facility] CenterIn the event this information is protected by the Federal Confidentiality of Alcohol and Drug Abuse Patient Records regulations: The Federal rules restrict any use of the information to criminally investigate or prosecute any alcohol or drug abuse patient.[facility] CenterIn the event this information is protected by the Federal Confidentiality of Alcohol and Drug Abuse Patient Records regulations: The Federal rules restrict any use of the information to criminally investigate or prosecute any alcohol or drug abuse patient.[facility] CenterIn the event this information is protected by the Federal Confidentiality of Alcohol and Drug Abuse Patient Records regulations: The Federal rules restrict any use of the information to criminally investigate or prosecute any alcohol or drug abuse patient.[facility] CenterIn the event this information is protected by the Federal Confidentiality of Alcohol and Drug Abuse Patient Records regulations: The Federal rules restrict any use of the information to criminally investigate or prosecute any alcohol or drug abuse patient.[facility] CenterIn the event this information is protected by the Federal Confidentiality of Alcohol and Drug Abuse Patient Records regulations: The Federal rules restrict any use of the information to criminally investigate or prosecute any alcohol or drug abuse patient.[facility] CenterIn the event this information is protected by the Federal Confidentiality of Alcohol and Drug Abuse Patient Records regulations: The Federal rules restrict any use of the information to criminally investigate or prosecute any alcohol or drug abuse patient.[facility] CenterIn the event this information is protected by the Federal Confidentiality of Alcohol and Drug Abuse Patient Records regulations: The Federal rules restrict any use of the information to criminally investigate or prosecute any alcohol or drug abuse patient.[facility] CenterIn the event this information is protected by the Federal Confidentiality of Alcohol and Drug Abuse Patient Records regulations: The Federal rules restrict any use of the information to criminally investigate or prosecute any alcohol or drug abuse patient.[facility] CenterIn the event this information is protected by the Federal Confidentiality of Alcohol and Drug Abuse Patient Records regulations: The Federal rules restrict any use of the information to criminally investigate or prosecute any alcohol or drug abuse patient.[facility] CenterIn the event this information is protected by the Federal Confidentiality of Alcohol and Drug Abuse Patient Records regulations: The Federal rules restrict any use of the information to criminally investigate or prosecute any alcohol or drug abuse patient.[facility] CenterIn the event this information is protected by the Federal Confidentiality of Alcohol and Drug Abuse Patient Records regulations: The Federal rules restrict any use of the information to criminally investigate or prosecute any alcohol or drug abuse patient.[facility] CenterIn the event this information is protected by the Federal Confidentiality of Alcohol and Drug Abuse Patient Records regulations: The Federal rules restrict any use of the information to criminally investigate or prosecute any alcohol or drug abuse patient.[facility] CenterIn the event this information is protected by the Federal Confidentiality of Alcohol and Drug Abuse Patient Records regulations: The Federal rules restrict any use of the information to criminally investigate or prosecute any alcohol or drug abuse patient.[facility] CenterIn the event this information is protected by the Federal Confidentiality of Alcohol and Drug Abuse Patient Records regulations: The Federal rules restrict any use of the information to criminally investigate or prosecute any alcohol or drug abuse patient.[facility] CenterIn the event this information is protected by the Federal Confidentiality of Alcohol and Drug Abuse Patient Records regulations: The Federal rules restrict any use of the information to criminally investigate or prosecute any alcohol or drug abuse patient.[facility] CenterIn the event this information is protected by the Federal Confidentiality of Alcohol and Drug Abuse Patient Records regulations: The Federal rules restrict any use of the information to criminally investigate or prosecute any alcohol or drug abuse patient.[facility] CenterIn the event this information is protected by the Federal Confidentiality of Alcohol and Drug Abuse Patient Records regulations: The Federal rules restrict any use of the information to criminally investigate or prosecute any alcohol or drug abuse patient.[facility] CenterIn the event this information is protected by the Federal Confidentiality of Alcohol and Drug Abuse Patient Records regulations: The Federal rules restrict any use of the information to criminally investigate or prosecute any alcohol or drug abuse patient.[facility] CenterIn the event this information is protected by the Federal Confidentiality of Alcohol and Drug Abuse Patient Records regulations: The Federal rules restrict any use of the information to criminally investigate or prosecute any alcohol or drug abuse patient.[facility] CenterIn the event this information is protected by the Federal Confidentiality of Alcohol and Drug Abuse Patient Records regulations: The Federal rules restrict any use of the information to criminally investigate or prosecute any alcohol or drug abuse patient.[facility] CenterIn the event this information is protected by the Federal Confidentiality of Alcohol and Drug Abuse Patient Records regulations: The Federal rules restrict any use of the information to criminally investigate or prosecute any alcohol or drug abuse patient.[facility] CenterIn the event this information is protected by the Federal Confidentiality of Alcohol and Drug Abuse Patient Records regulations: The Federal rules restrict any use of the information to criminally investigate or prosecute any alcohol or drug abuse patient.[facility] CenterIn the event this information is protected by the Federal Confidentiality of Alcohol and Drug Abuse Patient Records regulations: The Federal rules restrict any use of the information to criminally investigate or prosecute any alcohol or drug abuse patient.[facility] CenterIn the event this information is protected by the Federal Confidentiality of Alcohol and Drug Abuse Patient Records regulations: The Federal rules restrict any use of the information to criminally investigate or prosecute any alcohol or drug abuse patient.[facility] CenterIn the event this information is protected by the Federal Confidentiality of Alcohol and Drug Abuse Patient Records regulations: The Federal rules restrict any use of the information to criminally investigate or prosecute any alcohol or drug abuse patient.[facility] CenterIn the event this information is protected by the Federal Confidentiality of Alcohol and Drug Abuse Patient Records regulations: The Federal rules restrict any use of the information to criminally investigate or prosecute any alcohol or drug abuse patient.[facility] CenterIn the event this information is protected by the Federal Confidentiality of Alcohol and Drug Abuse Patient Records regulations: The Federal rules restrict any use of the information to criminally investigate or prosecute any alcohol or drug abuse patient.[facility] CenterIn the event this information is protected by the Federal Confidentiality of Alcohol and Drug Abuse Patient Records regulations: The Federal rules restrict any use of the information to criminally investigate or prosecute any alcohol or drug abuse patient.[facility] CenterIn the event this information is protected by the Federal Confidentiality of Alcohol and Drug Abuse Patient Records regulations: The Federal rules restrict any use of the information to criminally investigate or prosecute any alcohol or drug abuse patient.[facility] CenterIn the event this information is protected by the Federal Confidentiality of Alcohol and Drug Abuse Patient Records regulations: The Federal rules restrict any use of the information to criminally investigate or prosecute any alcohol or drug abuse patient.[facility] CenterIn the event this information is protected by the Federal Confidentiality of Alcohol and Drug Abuse Patient Records regulations: The Federal rules restrict any use of the information to criminally investigate or prosecute any alcohol or drug abuse patient.[facility] CenterIn the event this information is protected by the Federal Confidentiality of Alcohol and Drug Abuse Patient Records regulations: The Federal rules restrict any use of the information to criminally investigate or prosecute any alcohol or drug abuse patient.[facility] CenterIn the event this information is protected by the Federal Confidentiality of Alcohol and Drug Abuse Patient Records regulations: The Federal rules restrict any use of the information to criminally investigate or prosecute any alcohol or drug abuse patient.[facility] CenterIn the event this information is protected by the Federal Confidentiality of Alcohol and Drug Abuse Patient Records regulations: The Federal rules restrict any use of the information to criminally investigate or prosecute any alcohol or drug abuse patient.[facility] CenterIn the event this information is protected by the Federal Confidentiality of Alcohol and Drug Abuse Patient Records regulations: The Federal rules restrict any use of the information to criminally investigate or prosecute any alcohol or drug abuse patient.[facility] CenterIn the event this information is protected by the Federal Confidentiality of Alcohol and Drug Abuse Patient Records regulations: The Federal rules restrict any use of the information to criminally investigate or prosecute any alcohol or drug abuse patient.[facility] CenterIn the event this information is protected by the Federal Confidentiality of Alcohol and Drug Abuse Patient Records regulations: The Federal rules restrict any use of the information to criminally investigate or prosecute any alcohol or drug abuse patient.[facility] CenterIn the event this information is protected by the Federal Confidentiality of Alcohol and Drug Abuse Patient Records regulations: The Federal rules restrict any use of the information to criminally investigate or prosecute any alcohol or drug abuse patient.[facility] CenterIn the event this information is protected by the Federal Confidentiality of Alcohol and Drug Abuse Patient Records regulations: The Federal rules restrict any use of the information to criminally investigate or prosecute any alcohol or drug abuse patient.[facility] CenterIn the event this information is protected by the Federal Confidentiality of Alcohol and Drug Abuse Patient Records regulations: The Federal rules restrict any use of the information to criminally investigate or prosecute any alcohol or drug abuse patient.[facility] CenterIn the event this information is protected by the Federal Confidentiality of Alcohol and Drug Abuse Patient Records regulations: The Federal rules restrict any use of the information to criminally investigate or prosecute any alcohol or drug abuse patient.[facility] CenterIn the event this information is protected by the Federal Confidentiality of Alcohol and Drug Abuse Patient Records regulations: The Federal rules restrict any use of the information to criminally investigate or prosecute any alcohol or drug abuse patient.[facility] CenterIn the event this information is protected by the Federal Confidentiality of Alcohol and Drug Abuse Patient Records regulations: The Federal rules restrict any use of the information to criminally investigate or prosecute any alcohol or drug abuse patient.[facility] CenterIn the event this information is protected by the Federal Confidentiality of Alcohol and Drug Abuse Patient Records regulations: The Federal rules restrict any use of the information to criminally investigate or prosecute any alcohol or drug abuse patient.[facility] CenterIn the event this information is protected by the Federal Confidentiality of Alcohol and Drug Abuse Patient Records regulations: The Federal rules restrict any use of the information to criminally investigate or prosecute any alcohol or drug abuse patient.[facility] CenterIn the event this information is protected by the Federal Confidentiality of Alcohol and Drug Abuse Patient Records regulations: The Federal rules restrict any use of the information to criminally investigate or prosecute any alcohol or drug abuse patient.[facility] CenterIn the event this information is protected by the Federal Confidentiality of Alcohol and Drug Abuse Patient Records regulations: The Federal rules restrict any use of the information to criminally investigate or prosecute any alcohol or drug abuse patient.[facility] CenterIn the event this information is protected by the Federal Confidentiality of Alcohol and Drug Abuse Patient Records regulations: The Federal rules restrict any use of the information to criminally investigate or prosecute any alcohol or drug abuse patient.[facility] CenterIn the event this information is protected by the Federal Confidentiality of Alcohol and Drug Abuse Patient Records regulations: The Federal rules restrict any use of the information to criminally investigate or prosecute any alcohol or drug abuse patient.[facility] CenterIn the event this information is protected by the Federal Confidentiality of Alcohol and Drug Abuse Patient Records regulations: The Federal rules restrict any use of the information to criminally investigate or prosecute any alcohol or drug abuse patient.[facility] CenterIn the event this information is protected by the Federal Confidentiality of Alcohol and Drug Abuse Patient Records regulations: The Federal rules restrict any use of the information to criminally investigate or prosecute any alcohol or drug abuse patient.[facility] CenterIn the event this information is protected by the Federal Confidentiality of Alcohol and Drug Abuse Patient Records regulations: The Federal rules restrict any use of the information to criminally investigate or prosecute any alcohol or drug abuse patient.[facility] CenterIn the event this information is protected by the Federal Confidentiality of Alcohol and Drug Abuse Patient Records regulations: The Federal rules restrict any use of the information to criminally investigate or prosecute any alcohol or drug abuse patient.[facility] CenterIn the event this information is protected by the Federal Confidentiality of Alcohol and Drug Abuse Patient Records regulations: The Federal rules restrict any use of the information to criminally investigate or prosecute any alcohol or drug abuse patient.[facility] CenterIn the event this information is protected by the Federal Confidentiality of Alcohol and Drug Abuse Patient Records regulations: The Federal rules restrict any use of the information to criminally investigate or prosecute any alcohol or drug abuse patient.[facility] CenterIn the event this information is protected by the Federal Confidentiality of Alcohol and Drug Abuse Patient Records regulations: The Federal rules restrict any use of the information to criminally investigate or prosecute any alcohol or drug abuse patient.[facility] CenterIn the event this information is protected by the Federal Confidentiality of Alcohol and Drug Abuse Patient Records regulations: The Federal rules restrict any use of the information to criminally investigate or prosecute any alcohol or drug abuse patient.[facility] CenterIn the event this information is protected by the Federal Confidentiality of Alcohol and Drug Abuse Patient Records regulations: The Federal rules restrict any use of the information to criminally investigate or prosecute any alcohol or drug abuse patient.[facility] CenterIn the event this information is protected by the Federal Confidentiality of Alcohol and Drug Abuse Patient Records regulations: The Federal rules restrict any use of the information to criminally investigate or prosecute any alcohol or drug abuse patient.[facility] CenterIn the event this information is protected by the Federal Confidentiality of Alcohol and Drug Abuse Patient Records regulations: The Federal rules restrict any use of the information to criminally investigate or prosecute any alcohol or drug abuse patient.[facility] CenterIn the event this information is protected by the Federal Confidentiality of Alcohol and Drug Abuse Patient Records regulations: The Federal rules restrict any use of the information to criminally investigate or prosecute any alcohol or drug abuse patient.[facility] CenterIn the event this information is protected by the Federal Confidentiality of Alcohol and Drug Abuse Patient Records regulations: The Federal rules restrict any use of the information to criminally investigate or prosecute any alcohol or drug abuse patient.[facility] CenterIn the event this information is protected by the Federal Confidentiality of Alcohol and Drug Abuse Patient Records regulations: The Federal rules restrict any use of the information to criminally investigate or prosecute any alcohol or drug abuse patient.[facility] CenterIn the event this information is protected by the Federal Confidentiality of Alcohol and Drug Abuse Patient Records regulations: The Federal rules restrict any use of the information to criminally investigate or prosecute any alcohol or drug abuse patient.[facility] CenterIn the event this information is protected by the Federal Confidentiality of Alcohol and Drug Abuse Patient Records regulations: The Federal rules restrict any use of the information to criminally investigate or prosecute any alcohol or drug abuse patient.[facility] CenterIn the event this information is protected by the Federal Confidentiality of Alcohol and Drug Abuse Patient Records regulations: The Federal rules restrict any use of the information to criminally investigate or prosecute any alcohol or drug abuse patient.[facility] CenterIn the event this information is protected by the Federal Confidentiality of Alcohol and Drug Abuse Patient Records regulations: The Federal rules restrict any use of the information to criminally investigate or prosecute any alcohol or drug abuse patient.[facility] CenterIn the event this information is protected by the Federal Confidentiality of Alcohol and Drug Abuse Patient Records regulations: The Federal rules restrict any use of the information to criminally investigate or prosecute any alcohol or drug abuse patient.[facility] CenterIn the event this information is protected by the Federal Confidentiality of Alcohol and Drug Abuse Patient Records regulations: The Federal rules restrict any use of the information to criminally investigate or prosecute any alcohol or drug abuse patient.[facility] CenterIn the event this information is protected by the Federal Confidentiality of Alcohol and Drug Abuse Patient Records regulations: The Federal rules restrict any use of the information to criminally investigate or prosecute any alcohol or drug abuse patient.[facility] CenterIn the event this information is protected by the Federal Confidentiality of Alcohol and Drug Abuse Patient Records regulations: The Federal rules restrict any use of the information to criminally investigate or prosecute any alcohol or drug abuse patient.[facility] CenterIn the event this information is protected by the Federal Confidentiality of Alcohol and Drug Abuse Patient Records regulations: The Federal rules restrict any use of the information to criminally investigate or prosecute any alcohol or drug abuse patient.[facility] CenterIn the event this information is protected by the Federal Confidentiality of Alcohol and Drug Abuse Patient Records regulations: The Federal rules restrict any use of the information to criminally investigate or prosecute any alcohol or drug abuse patient.[facility] CenterIn the event this information is protected by the Federal Confidentiality of Alcohol and Drug Abuse Patient Records regulations: The Federal rules restrict any use of the information to criminally investigate or prosecute any alcohol or drug abuse patient.[facility] CenterIn the event this information is protected by the Federal Confidentiality of Alcohol and Drug Abuse Patient Records regulations: The Federal rules restrict any use of the information to criminally investigate or prosecute any alcohol or drug abuse patient.[facility] CenterIn the event this information is protected by the Federal Confidentiality of Alcohol and Drug Abuse Patient Records regulations: The Federal rules restrict any use of the information to criminally investigate or prosecute any alcohol or drug abuse patient.[facility] CenterIn the event this information is protected by the Federal Confidentiality of Alcohol and Drug Abuse Patient Records regulations: The Federal rules restrict any use of the information to criminally investigate or prosecute any alcohol or drug abuse patient.[facility] CenterIn the event this information is protected by the Federal Confidentiality of Alcohol and Drug Abuse Patient Records regulations: The Federal rules restrict any use of the information to criminally investigate or prosecute any alcohol or drug abuse patient.[facility] CenterIn the event this information is protected by the Federal Confidentiality of Alcohol and Drug Abuse Patient Records regulations: The Federal rules restrict any use of the information to criminally investigate or prosecute any alcohol or drug abuse patient.[facility] CenterIn the event this information is protected by the Federal Confidentiality of Alcohol and Drug Abuse Patient Records regulations: The Federal rules restrict any use of the information to criminally investigate or prosecute any alcohol or drug abuse patient.[facility] CenterIn the event this information is protected by the Federal Confidentiality of Alcohol and Drug Abuse Patient Records regulations: The Federal rules restrict any use of the information to criminally investigate or prosecute any alcohol or drug abuse patient.[facility] CenterIn the event this information is protected by the Federal Confidentiality of Alcohol and Drug Abuse Patient Records regulations: The Federal rules restrict any use of the information to criminally investigate or prosecute any alcohol or drug abuse patient.[facility] CenterIn the event this information is protected by the Federal Confidentiality of Alcohol and Drug Abuse Patient Records regulations: The Federal rules restrict any use of the information to criminally investigate or prosecute any alcohol or drug abuse patient.[facility] CenterIn the event this information is protected by the Federal Confidentiality of Alcohol and Drug Abuse Patient Records regulations: The Federal rules restrict any use of the information to criminally investigate or prosecute any alcohol or drug abuse patient.[facility] CenterIn the event this information is protected by the Federal Confidentiality of Alcohol and Drug Abuse Patient Records regulations: The Federal rules restrict any use of the information to criminally investigate or prosecute any alcohol or drug abuse patient.[facility] CenterIn the event this information is protected by the Federal Confidentiality of Alcohol and Drug Abuse Patient Records regulations: The Federal rules restrict any use of the information to criminally investigate or prosecute any alcohol or drug abuse patient.[facility] CenterIn the event this information is protected by the Federal Confidentiality of Alcohol and Drug Abuse Patient Records regulations: The Federal rules restrict any use of the information to criminally investigate or prosecute any alcohol or drug abuse patient.[facility] CenterIn the event this information is protected by the Federal Confidentiality of Alcohol and Drug Abuse Patient Records regulations: The Federal rules restrict any use of the information to criminally investigate or prosecute any alcohol or drug abuse patient.[facility] CenterIn the event this information is protected by the Federal Confidentiality of Alcohol and Drug Abuse Patient Records regulations: The Federal rules restrict any use of the information to criminally investigate or prosecute any alcohol or drug abuse patient.[facility] CenterIn the event this information is protected by the Federal Confidentiality of Alcohol and Drug Abuse Patient Records regulations: The Federal rules restrict any use of the information to criminally investigate or prosecute any alcohol or drug abuse patient.[facility] CenterIn the event this information is protected by the Federal Confidentiality of Alcohol and Drug Abuse Patient Records regulations: The Federal rules restrict any use of the information to criminally investigate or prosecute any alcohol or drug abuse patient.[facility] CenterIn the event this information is protected by the Federal Confidentiality of Alcohol and Drug Abuse Patient Records regulations: The Federal rules restrict any use of the information to criminally investigate or prosecute any alcohol or drug abuse patient.[facility] CenterIn the event this information is protected by the Federal Confidentiality of Alcohol and Drug Abuse Patient Records regulations: The Federal rules restrict any use of the information to criminally investigate or prosecute any alcohol or drug abuse patient.[facility] CenterIn the event this information is protected by the Federal Confidentiality of Alcohol and Drug Abuse Patient Records regulations: The Federal rules restrict any use of the information to criminally investigate or prosecute any alcohol or drug abuse patient.[facility] CenterIn the event this information is protected by the Federal Confidentiality of Alcohol and Drug Abuse Patient Records regulations: The Federal rules restrict any use of the information to criminally investigate or prosecute any alcohol or drug abuse patient.[facility] CenterIn the event this information is protected by the Federal Confidentiality of Alcohol and Drug Abuse Patient Records regulations: The Federal rules restrict any use of the information to criminally investigate or prosecute any alcohol or drug abuse patient.[facility] CenterIn the event this information is protected by the Federal Confidentiality of Alcohol and Drug Abuse Patient Records regulations: The Federal rules restrict any use of the information to criminally investigate or prosecute any alcohol or drug abuse patient.[facility] CenterIn the event this information is protected by the Federal Confidentiality of Alcohol and Drug Abuse Patient Records regulations: The Federal rules restrict any use of the information to criminally investigate or prosecute any alcohol or drug abuse patient.[facility] CenterIn the event this information is protected by the Federal Confidentiality of Alcohol and Drug Abuse Patient Records regulations: The Federal rules restrict any use of the information to criminally investigate or prosecute any alcohol or drug abuse patient.[facility] CenterIn the event this information is protected by the Federal Confidentiality of Alcohol and Drug Abuse Patient Records regulations: The Federal rules restrict any use of the information to criminally investigate or prosecute any alcohol or drug abuse patient.[facility] CenterIn the event this information is protected by the Federal Confidentiality of Alcohol and Drug Abuse Patient Records regulations: The Federal rules restrict any use of the information to criminally investigate or prosecute any alcohol or drug abuse patient.[facility] CenterIn the event this information is protected by the Federal Confidentiality of Alcohol and Drug Abuse Patient Records regulations: The Federal rules restrict any use of the information to criminally investigate or prosecute any alcohol or drug abuse patient.[facility] CenterIn the event this information is protected by the Federal Confidentiality of Alcohol and Drug Abuse Patient Records regulations: The Federal rules restrict any use of the information to criminally investigate or prosecute any alcohol or drug abuse patient.[facility] CenterIn the event this information is protected by the Federal Confidentiality of Alcohol and Drug Abuse Patient Records regulations: The Federal rules restrict any use of the information to criminally investigate or prosecute any alcohol or drug abuse patient.[facility] CenterIn the event this information is protected by the Federal Confidentiality of Alcohol and Drug Abuse Patient Records regulations: The Federal rules restrict any use of the information to criminally investigate or prosecute any alcohol or drug abuse patient.[facility] CenterIn the event this information is protected by the Federal Confidentiality of Alcohol and Drug Abuse Patient Records regulations: The Federal rules restrict any use of the information to criminally investigate or prosecute any alcohol or drug abuse patient.[facility] CenterIn the event this information is protected by the Federal Confidentiality of Alcohol and Drug Abuse Patient Records regulations: The Federal rules restrict any use of the information to criminally investigate or prosecute any alcohol or drug abuse patient.[facility] CenterIn the event this information is protected by the Federal Confidentiality of Alcohol and Drug Abuse Patient Records regulations: The Federal rules restrict any use of the information to criminally investigate or prosecute any alcohol or drug abuse patient.[facility] CenterIn the event this information is protected by the Federal Confidentiality of Alcohol and Drug Abuse Patient Records regulations: The Federal rules restrict any use of the information to criminally investigate or prosecute any alcohol or drug abuse patient.[facility] CenterIn the event this information is protected by the Federal Confidentiality of Alcohol and Drug Abuse Patient Records regulations: The Federal rules restrict any use of the information to criminally investigate or prosecute any alcohol or drug abuse patient.[facility] CenterIn the event this information is protected by the Federal Confidentiality of Alcohol and Drug Abuse Patient Records regulations: The Federal rules restrict any use of the information to criminally investigate or prosecute any alcohol or drug abuse patient.[facility] CenterIn the event this information is protected by the Federal Confidentiality of Alcohol and Drug Abuse Patient Records regulations: The Federal rules restrict any use of the information to criminally investigate or prosecute any alcohol or drug abuse patient.[facility] CenterIn the event this information is protected by the Federal Confidentiality of Alcohol and Drug Abuse Patient Records regulations: The Federal rules restrict any use of the information to criminally investigate or prosecute any alcohol or drug abuse patient.[facility] CenterIn the event this information is protected by the Federal Confidentiality of Alcohol and Drug Abuse Patient Records regulations: The Federal rules restrict any use of the information to criminally investigate or prosecute any alcohol or drug abuse patient.[facility] CenterIn the event this information is protected by the Federal Confidentiality of Alcohol and Drug Abuse Patient Records regulations: The Federal rules restrict any use of the information to criminally investigate or prosecute any alcohol or drug abuse patient.[facility] Care Teams (unrecognized sec tion and content) Team Status: Active Member Role Status Dates Misha Sy DO Primary Care Provider Active Team Status: Inactive Member Role Status Dates Edie Dolan APRN Attending Provider Active Start: February 13, 2023 End: February 13, 2023 Team Status: Inactive Member Role Status Dates Misha Sy DO Attending Provider Active S tart: February 27, 2023 End: February 27, 2023 Team Status: Active Member Role Status Dates NON STAFF Primary Care Provider Active Start: March 30, 2023 Razia Vidal ProviderActiveStart: March 30, 2023 Team Status: Active Member Role Status Dates NON STAFF Primary Care Provider Active Start: April 02, 2023 Razia Vidal ProviderActiveStart: April 02, 2023 Team Status: Inactive Member Role Status Dates NON STAFF Primary Care Provider Active Start: April 03, 2023 End: April 03, 2023Misha Sy DOAttending ProviderActiveStart: April 03, 2023 End: April 03, 2023 Team Status: Active Member Role Status Dates NON STAFF Primary Care Provider Active Start: April 19, 2023 Iam Desir Razia ProviderActiveStart: April 19, 2023 Team Status: Inactive Member Role Status Dates Misha Sy DO Primary Care Provid er, Attending Provider Active Start: May 08, 2023 End: May 08, 2023 Team Status: Active Member Role Status Dates Yolanda Staples DO Emergency Provider Active [facility] Care ProviderActiveAnnalise Jerez MDAit Provider, Attending ProviderActiveTeam MemberRelationshipSpecialtyStart DateEnd Date Misha Sy, DO [address] [facility] 2 [place] [address] PCP - GeneralFamily Practice05/12/20 Misha Sy, DO [address] [facility] 2 [place] [address] ReferringFamily Practice08/24/17 Hyun Leiva [address] [address] ReferringFamily Practice05/12/20 Blayne Barajas MD [address] [place] [address] Primary Staff YcaokeqgmMqxltgiubv52/4/21Team MemberRelationshipSpecialtyStart DateEnd Date Misha Sy, DO [address] [facility] 2 [place] [address] PCP - GeneralFamily Practice05/12/20 Misha Sy, DO [address] [facility] 2 [place] [address] ReferringFamily Practice08/24/17 Hyun Leiva Joo [address] [facility] [address] [place] [address] ReferringFamily Practice05/12/20 Blayne Barajas MD [address] [place] [address] Primary Staff NusmgburdLnrdegwpsq71/4/21Team MemberRelationshipSpecialtyStart DateEnd Date Misha Sy, DO [address] [place] [address] PCP - GeneralFamily Practice05/12/20 Misha Sy, DO [address] [facility] 2 [place] [address] ReferringFamily Practice08/24/17 Hyun Leiva [address] [address] ReferringFamily Practice05/12/20 Blayne Barajas MD [address] [place] [address] Primary Staff AfqpavhyvPqrjzwzzmw13/4/21Team MemberRelationshipSpecialtyStart DateEnd Date Misha Sy, DO [address] [place] [address] PCP - GeneralFamily Practice05/12/20 Misha Sy, DO [address] [place] [address] ReferringFamily Practice08/24/17 Hyun Leiva M [address] [address] ReferringFamily Practice05/12/20 Blayne Barajas MD [address] [place] [address] Primary Staff SiqfaykgmJdzplnlhwg85/4/21Team MemberRelationshipSpecialtyStart DateEnd Date Misha Sy, DO [address] [facility] 2 [place] [address] PCP - GeneralFamily Practice05/12/20 Misha Sy, DO [address] [place] [address] 2 [place] [address] ReferringFamily Practice08/24/17 Hyun Leiva [address] [place] [address] ReferringFamily Practice05/12/20 Blayne Barajas MD [address] [place] [address] Primary Staff AktnfpjsyIaankalrzg76/4/21Team MemberRelationshipSpecialtyStart DateEnd Date Misha Sy, [address] [place] [address] PCP - GeneralFamily Practice05/12/20 Misha Sy, DO [address] [place] [address] 2 [place] [address] ReferringFamily Practice08/24/17 Hyun Leiva [address] [place] [address] ReferringFamily Practice05/12/20 Blayne Barajas MD [address] [place] [address] Primary Staff GpldayzijDqdubahzkf63/4/21Team MemberRelationshipSpecialtyStart DateEnd Date Misha Sy, DO [address] [facility] 2 [place] [address] PCP - GeneralFamily Practice05/12/20 Misha Sy, DO [address] [place] [address] 2 [place] [address] ReferringFamily Practice08/24/17 Hyun Leiva Joo [address] [address] ReferringFamily Practice05/12/20 Blayne Barajas MD [address] [place] [address] Primary Staff NhismkvtdRqmscxxeyo54/4/21Team MemberRelationshipSpecialtyStart DateEnd Date Misha Sy, DO [address] [place] [address] 2 [place] [address] PCP - GeneralFamily Practice05/12/20 Misha Sy DO [address] [place] [address] 2 [place] [address] ReferringFamily Practice08/24/17 Hyun Leiva [address] [address] ReferringFamily Practice05/12/20 Blayne Barajas MD [address] [place] [address] Primary Staff FbaxgmtsdZpdrvhwvqg50/4/21Team MemberRelationshipSpecialtyStart DateEnd Date Misha Sy, DO [address] [place] [address] 2 [place] [address] PCP - GeneralFamily Practice05/12/20 Misha Sy, DO [address] [place] [address] 2 [place] [address] ReferringFamily Practice08/24/17 Hyun Leiva [address] [address] ReferringFamily Practice05/12/20 Blayne Barajas MD [address] [place] [address] Primary Staff BgwqygesyVbjpmirzqw04/4/21Team MemberRelationshipSpecialtyStart DateEnd Date Misha Sy, DO [address] [place] [address] 2 [place] [address] PCP - GeneralFamily Practice05/12/20 Misha Sy, DO [address] [place] [address] ReferringFamily Practice08/24/17 Hyun Leiva [address] [address] ReferringFamily Practice05/12/20 Blayne Barajas MD [address] [place] [address] Primary Staff TzdjbrgecKtbmjytnuy61/4/21Team MemberRelationshipSpecialtyStart DateEnd Date Misha Sy, DO [address] [place] [address] 2 [place] [address] PCP - GeneralFamily Practice05/12/20 Misha Sy, DO [address] [place] [address] 2 [place] [address] ReferringFamily Practice08/24/17 Hyun Leiva [address] [address] ReferringFamily Practice05/12/20 Blayne Barajas MD [address] [place] [address] Primary Staff VvoyombuxXrmjlsznzm95/4/21Team MemberRelationshipSpecialtyStart DateEnd Date Misha Sy, DO [address] [facility] 2 [place] [address] PCP - GeneralFamily Practice05/12/20 Misha Sy, DO [address] [facility] 2 [place] [address] ReferringFamily Practice08/24/17 Hyun Leiva [address] [place] [address] ReferringFamily Practice05/12/20 Blayne Barajas MD [address] [facility] [place] [address] Primary Staff VfmoxhwmaRqddtzxnwu35/4/21Team MemberRelationshipSpecialtyStart DateEnd Date Misha Sy, DO [address] [facility] 2 [place] [address] PCP - GeneralFamily Practice05/12/20 Misha Sy, DO [address] [facility] 2 [place] [address] ReferringFamily Practice08/24/17 Hyun Leiva [address] [address] ReferringFamily Practice05/12/20 Blayne Barajas MD [address] [facility] [place] [address] Primary Staff UbapwswkzNqatzorzrj31/4/21Team MemberRelationshipSpecialtyStart DateEnd Date Misha Sy, DO [address] [place] [address] PCP - GeneralFamily Practice05/12/20 Misha Sy, DO [address] [facility] 2 [place] [address] ReferringFamily Practice08/24/17 Hyun Leiva [address] [address] ReferringFamily Practice05/12/20 Blayne Barajas MD [address] [place] [address] Primary Staff YtdzuvwxvQkgyoyemin58/4/21Team MemberRelationshipSpecialtyStart DateEnd Date Misha Sy, DO [address] [facility] 2 [place] [address] PCP - GeneralFamily Practice05/12/20 Misha Sy, DO [address] [place] [address] 2 [place] [address] ReferringFamily Practice08/24/17 Hyun Leiva [address] [address] ReferringFamily Practice05/12/20 Blayne Barajas MD [address] [place] [address] Primary Staff HxxaumqomNvqjpaatnw57/4/21Team MemberRelationshipSpecialtyStart DateEnd Date Misha Sy, DO [address] [facility] 2 [place] [address] PCP - GeneralFamily Practice05/12/20 Misha Sy, DO [address] [facility] 2 [place] [address] ReferringFamily Practice08/24/17 Hyun Leiva Joo [address] [address] ReferringFamily Practice05/12/20 Blayne Barajas MD [address] [place] [address] Primary Staff OodtvblguXwzausiclh99/4/21Team MemberRelationshipSpecialtyStart DateEnd Date Misha Sy, DO [address] [facility] 2 [place] [address] PCP - GeneralFamily Practice05/12/20 Misha Sy, DO [address] [facility] 2 [place] [address] ReferringFamily Practice08/24/17 Hyun Leiva [address] [address] ReferringFamily Practice05/12/20 Blayne Barajas MD [address] [place] [address] Primary Staff OrlmefcetDhcndtesxp87/4/21Team MemberRelationshipSpecialtyStart DateEnd Date Misha Sy, DO [address] [place] [address] PCP - GeneralFamily Medicine05/12/20 Misha Sy, DO [address] [facility] 2 [place] [address] ReferringFamily Medicine08/24/17 Hyun Leiva Joo [address] [address] ReferringFamily Medicine05/12/20 Blayne Barajas MD [address] [place] [address] Primary Staff XgdbnghlqWozugbmkca66/4/21Team MemberRelationshipSpecialtyStart DateEnd Date Misha Sy, DO [address] [place] [address] PCP - GeneralFamily Medicine05/12/20 Misha Sy, DO [address] [facility] 2 [place] [address] ReferringFamily Medicine08/24/17 Hyun Leiva [address] [address] ReferringFami Medicine05/12/20 Blayne Barajas MD [address] [place] [address] Primary Staff ZuuoprjjaVlkkrduhlp56/4/21Team MemberRelationshipSpecialtyStart DateEnd Date Misha Sy, DO [address] [facility] 2 [place] [address] PCP - GeneralFamily Medicine05/12/20 Misha Sy, DO [address] [facility] 2 [place] [address] ReferringFamily Medicine08/24/17 Hyun Leiva M [address] [address] ReferringFamily Medicine05/12/20 Blayne Barajas MD [address] [place] [address] Primary Staff UccmdgxwfYvqupnwjqd78/4/21Team MemberRelationshipSpecialtyStart DateEnd Date Misha Sy, [address] [address] PCP - GeneralFamily Medicine05/12/20 Misha Sy, DO [address] [place] [address] 2 [place] [address] ReferringFami Medicine08/24/17 Hyun Leiva [address] [place] [address] ReferringFami Medicine05/12/20 Blayne Barajas MD [address] [facility] [address] Primary Staff BsnlbhkneAkrikcpccf99/4/21Team MemberRelationshipSpecialtyStart DateEnd Date Misha Sy, [address] [address] PCP - GeneralFamily Medicine05/12/20 Misha Sy, [address] [address] ReferringFamily Medicine08/24/17 Hyun Leiva [address] [place] [address] ReferringFami Medicine05/12/20 Blayne Barajas MD [address] [facility] [address] Primary Staff ObenninywXcsekhjhbc70/4/21Team MemberRelationshipSpecialtyStart DateEnd Date Misha Sy, [address] [place] [address] PCP - GeneralFamily Medicine05/12/20 Misha Sy, DO [address] [place] [address] 2 [place] [address] ReferringFamily Medicine08/24/17 Hyun Leiva [address] [address] ReferringFamily Medicine05/12/20 Blayne Barajas MD [address] [place] [address] Primary Staff JvyrgvzkcLrwumckumk09/4/21Team MemberRelationshipSpecialtyStart DateEnd Date Misha Sy, DO [address] [place] [address] 2 [place] [address] PCP - GeneralFamily Medicine05/12/20 Misha Sy, DO [address] [place] [address] 2 [place] [address] ReferringFami Medicine08/24/17 Hyun Leiva [address] [address] ReferringFami Medicine05/12/20 Blayne Barajas MD [address] [place] [address] Primary Staff CwfkwoubeNzgiorsowl68/4/21Team MemberRelationshipSpecialtyStart DateEnd Date Misha Sy, DO [address] [place] [address] 2 [place] [address] PCP - GeneralFamily Medicine05/12/20 Misha Sy, DO [address] [place] [address] 2 [place] [address] ReferringFamily Medicine08/24/17 Hyun Leiva Joo [address] [address] ReferringFamily Medicine05/12/20 Blayne Barajas MD [address] [place] [address] Primary Staff GckteqbauAhgesckvfm57/4/21Team MemberRelationshipSpecialtyStart DateEnd Date Misha Sy, DO [address] [place] [address] PCP - GeneralFamily Medicine05/12/20 Misha Sy, DO [address] [place] [address] [address] [place] [address] ReferringFamily Medicine08/24/17 Hyun Leiva [address] [address] ReferringFamily Medicine05/12/20 Blayne Barajas MD [address] [place] [address] Primary Staff JvxvynixjSfusakkdbn49/4/21Team MemberRelationshipSpecialtyStart DateEnd Date Misha Sy, DO [address] [place] [address] PCP - GeneralFamily Medicine05/12/20 Misha Sy, DO [address] [place] [address] ReferringFamily Medicine08/24/17 Hyun Leiva Joo [address] [address] ReferringFamily Medicine05/12/20 Blayne Barajas MD [address] [place] [address] Primary Staff MeeggfkquXcfryuqslr02/4/21Te MemberRelationshipSpecialtyStart DateEnd Date Misha Sy, DO [address] [place] [address] 2 [place] [address] PCP - GeneralFamily Medicine05/12/20 Kerrie, Mishacharly Anaya, DO [address] [place] [address] 2 [place] [address] ReferringFamily Medicine08/24/17 Hyun Leiva [address] [place] [address] ReferringFamily Medicine05/12/20 Blayne Barajas MD [address] [place] [address] Primary Staff RkjsghndaVwppvlsmsf13/4/21Te MemberRelationshipSpecialtyStart DateEnd Date Kerrie Mishacharly Anaya, [address] [place] [address] PCP - GeneralFamily Medicine05/12/20 KerrieMisha, [address] [place] [address] ReferringFami Medicine08/24/17 Hyun Leiva [address] [place] [address] ReferringFamily Medicine05/12/20 Blayne Barajas MD [address] [place] [address] Primary Staff EqpnqzmpsGcnmgoeqmp96/4/21Team MemberRelationshipSpecialtyStart DateEnd Date Misha Sy, DO [address] [facility] 2 [place] [address] PCP - GeneralFamily Medicine05/12/20 Misha Sy, DO [address] [place] [address] 2 [place] [address] ReferringFamily Medicine08/24/17 Hyun Leiva [address] [place] [address] ReferringFamily Medicine05/12/20 Blayne Barajas MD [address] [place] [address] Primary Staff PclqhmrsvKmnjkrgprs21/4/21Team MemberRelationshipSpecialtyStart DateEnd Date Misha Sy, DO [address] [place] [address] 2 [place] [address] PCP - GeneralFamily Medicine05/12/20 Misha Sy, DO [address] [place] [address] 2 [place] [address] ReferringFamiChildren's Healthcare [facility]08/24/17 Hyun Leiva [address] [address] ReferringFamily Medicine05/12/20 Blayne Barajas MD [address] [place] [address] Primary Staff XxxcrpabzKhrgyobral82/4/21Team MemberRelationshipSpecialtyStart DateEnd Date Misha Sy, DO [address] [place] [address] 2 [place] [address] PCP - GeneralFamily Medicine05/12/20 Misha Sy, DO [address] [place] [address] ReferringFamily Medicine08/24/17 Hyun Leiva [address] [address] ReferringFamily Medicine05/12/20 Blayne Barajas MD [address] [place] [address] Primary Staff KwslhueeuXhqjllaxgv18/4/21Team MemberRelationshipSpecialtyStart DateEnd Date Misha Sy, DO [address] [place] [address] 2 [place] [address] PCP - GeneralFamily Medicine05/12/20 Misha Sy, DO [address] [place] [address] 2 [place] [address] ReferringFamily Medicine08/24/17 Hyun Leiva [address] [address] ReferringFamily Medicine05/12/20 Blayne Barajas MD [address] [place] [address] Primary Staff HrgqumjyoWlbjvzsnek66/4/21Team MemberRelationshipSpecialtyStart DateEnd Date Misha Sy, DO [address] [facility] 2 [place] [address] PCP - GeneralFamily Medicine05/12/20 Misha Sy, DO [address] [facility] 2 [place] [address] ReferringFamily Medicine08/24/17 Hyun Leiva [address] [address] ReferringFamily Medicine05/12/20 Blayne Barajas MD [address] [place] [address] Primary Staff WtljnigxiQsofxakyqq04/4/21Team MemberRelationshipSpecialtyStart DateEnd Date Misha Sy, DO [address] [facility] 2 [place] [address] PCP - GeneralFamily Medicine05/12/20 Misha Sy, DO [address] [facility] 2 [place] [address] ReferringFamily Medicine08/24/17 Hyun Leiva M [address] [address] ReferringFamily Medicine05/12/20 Blayne Barajas MD [address] [place] [address] Primary Staff HnlvxvpvsPydlsnyemz17/4/21Team MemberRelationshipSpecialtyStart DateEnd Date Misha Sy, DO [address] [facility] 2 [place] [address] PCP - GeneralFamily Medicine05/12/20 Misha Sy, DO [address] [facility] 2 [place] [address] ReferringFamily Medicine08/24/17 Hyun Leiva M [address] [address] ReferringFamily Medicine05/12/20 Blayne Barajas MD [address] [place] [address] Primary Staff LdhllucxzHuuuiqtbtc08/4/21Team MemberRelationshipSpecialtyStart DateEnd Date Misha Sy, DO [address] [place] [address] 2 [place] [address] PCP - GeneralFamily Medicine05/12/20 Misha Sy, DO [address] [place] [address] [address] [place] [address] ReferringFamily Medicine08/24/17 [address] [address] ReferringFami Medicine05/12/20 Blayne Barajas MD [address] [place] [address] Primary Staff HukktfiygPucpmbcxet79/4/21Team MemberRelationshipSpecialtyStart DateEnd Date Misha Sy, DO [address] [place] [address] 2 [place] [address] PCP - Generalmily Medicine05/12/20 Misha Sy, DO [address] [place] [address] 2 [place] [address] ReferringFamily Medicine08/24/17 Hyun Leiva [address] [place] [address] ReferringFami Medicine05/12/20 Blayne Barajas MD [address] [place] [address] Primary Staff SncfyiwakIfbauiliko12/4/21Team MemberRelationshipSpecialtyStart DateEnd Date Misha Sy, DO [address] [place] [address] 2 [place] [address] PCP - GeneralFamily Medicine05/12/20 Misha Sy, DO 348 [facility] 2 [place] [address] ReferringFamily Medicine08/24/17 CaliEdgarHyun M [address] [address] ReferringFamily Medicine05/12/20 Blayne Barajas MD [address] [place] [address] Primary Staff MpaavmtrlSqvetkbrid99/4/21Team MemberRelationshipSpecialtyStart DateEnd Date Misha Sy, DO [address] [place] [address] 2 [place] [address] PCP - GeneralFamily Medicine05/12/20 Misha Sy, DO [address] [place] [address] 2 [place] [address] ReferringFamily Medicine08/24/17 Hyun Leiva [address] [address] ReferringFamily Medicine05/12/20 Blayne Barajas MD [address] [place] [address] Primary Staff PyzyuzmnrDtpfeiyley86/4/21Team MemberRelationshipSpecialtyStart DateEnd Date Misha Sy, DO 348 [facility] 2 [place] [address] PCP - GeneralFamily Medicine05/12/20 Misha Sy, DO 348 [facility] 2 [place] [address] ReferringFamily Medicine08/24/17 Hyun Leiva Joo [address] [address] ReferringFamily Medicine05/12/20 Blayne Barajas MD [address] [place] [address] Primary Staff HnbslaksxJhbfvunxps21/4/21Team MemberRelationshipSpecialtyStart DateEnd Date Misha Sy, DO 348 [facility] 2 [place] [address] PCP - GeneralFamily Medicine05/12/20 Misha Sy, DO 348 [facility] 2 [place] [address] ReferringFamily Medicine08/24/17 Hyun Leiva [address] [address] ReferringFamily Medicine05/12/20 Blayne Barajas MD [address] [place] [address] Primary Staff MgbnghsjhKiuisjbgdu60/4/21Team MemberRelationshipSpecialtyStart DateEnd Date Misha Sy, DO 348 [facility] 2 [place] [address] PCP - GeneralFamily Medicine05/12/20 Misha Sy, DO 348 [facility] 2 [place] [address] ReferringFamily Medicine08/24/17 Hyun Leiva M [address] [address] ReferringFamily Medicine05/12/20 Blayne Barajas MD [address] [place] [address] Primary Staff VzqbswuptByqnwwiacg62/4/21Team MemberRelationshipSpecialtyStart DateEnd Date Misha Sy, DO [address] [place] [address] 2 [place] [address] PCP - GeneralFamily Medicine05/12/20 Misha Sy, DO [address] [place] [address] 2 [place] [address] ReferringFamily Medicine08/24/17 Hyun Leiva [address] [place] [address] ReferringFamily Medicine05/12/20 Blayne Barajas MD [address] [place] [address] Primary Staff CwpbeaxaoUtuerrlchd70/4/21Team MemberRelationshipSpecialtyStart DateEnd Date Misha Sy, [address] [place] [address] PCP - GeneralFamily Medicine05/12/20 Misha Sy, [address] 2 [place] [address] ReferringFamily Medicine08/24/17 Hyun Leiva [address] [place] [address] ReferringFamily Medicine05/12/20 Blayne Barajas MD [address] [place] [address] Primary Staff MeivweyulPxjglcovvg59/4/21Team MemberRelationshipSpecialtyStart DateEnd Date Misha Sy, DO 348 [facility] 2 [place] [address] PCP - GeneralFamily Medicine05/12/20 Misha Sy, DO [address] [place] [address] 2 [place] [address] ReferringFamily Medicine08/24/17 Hyun Leiva M [address] [address] ReferringFamily Medicine05/12/20 Blayne Barajas MD [address] [place] [address] Primary Staff XnhizrazkEvjorbvzto54/4/21Team MemberRelationshipSpecialtyStart DateEnd Date Misha Sy, DO [address] [place] [address] 2 [place] [address] PCP - GeneralFamily Medicine05/12/20 Misha Sy, DO [address] [place] [address] 2 [place] [address] ReferringFami Medicine08/24/17 Hyun Leiva [address] [address] ReferringFami Medicine05/12/20 Blayne Barajas MD [address] [place] [address] Primary Staff DrnosdnvvUfntscfnfh33/4/21Team MemberRelationshipSpecialtyStart DateEnd Date Misha Sy, DO [address] [place] [address] 2 [place] [address] PCP - GeneralFamily Medicine05/12/20 Misha Sy, DO [address] [place] [address] 2 [place] [address] ReferringFamily Medicine08/24/17 Hyun Leiva [address] [address] ReferringFamily Medicine05/12/20 Blayne Barajas MD [address] [place] [address] Primary Staff XwjduxgkzXsoqycjvwb73/4/21Team MemberRelationshipSpecialtyStart DateEnd Date Misha Sy, [address] [place] [address] PCP - GeneralFamily Medicine05/12/20 Misha Sy, [address] [place] [address] ReferringFamily Medicine08/24/17 Hyun Leiva [address] [address] ReferringFamily Medicine05/12/20 Blayne Barajas MD [address] [place] [address] Primary Staff WrzitdtycZpbibmhhiv06/4/21Team MemberRelationshipSpecialtyStart DateEnd Date Misha Sy, DO [address] [place] [address] 2 [place] [address] PCP - GeneralFamily Medicine05/12/20 Misha Sy, DO [address] [place] [address] 2 [place] [address] ReferringFamily Medicine08/24/17 Hyun Leiva [address] [address] ReferringFamily Medicine05/12/20 Blayne Barajas MD [address] [place] [address] Primary Staff GxoufieorRqmjgedbut99/4/21Team MemberRelationshipSpecialtyStart DateEnd Date Kerrie, Misha Anaya, DO 348 [facility] 2 [place] [address] PCP - GeneralFamily Medicine05/12/20 Misha Sy, DO 348 [facility] 2 [place] [address] ReferringFamily Medicine08/24/17 Hyun Leiva [address] [place] [address] ReferringFamily Medicine05/12/20 Blayne Barajas MD [address] [place] [address] Primary Staff LjwbhykciJuzxyjxxob79/4/21Te MemberRelationshipSpecialtyStart DateEnd Date Kerrie, Misha Anaya, DO 348 [facility] 2 [place] [address] PCP - GeneralFamily Medicine05/12/20 Misha Sy, DO 348 [facility] 2 [place] [address] ReferringFami Medicine08/24/17 Hyun Leiva [address] [place] [address] ReferringFamily Medicine05/12/20 Blayne Barajas MD [address] [place] [address] Primary Staff LvykwizkcBjziehljrl17/4/21 Team Status: Inactive Member Role Status Dates Misha Sy , Primary Care Provider Active Armando Ornelas , HALL COORDINATOR-CAttending ProviderActiveTeam MemberRelationship SpecialtyStart DateEnd Date Misha Sy, DO [address] [address] PCP - GeneralFamily Medicine05/12/20 Misha Sy, DO [address] [place] [address] ReferringFamily Medicine08/24/17 Hyun Leiva [address] [place] [address] ReferringFami Medicine05/12/20 Blayne Barajas MD [address] [place] [address] Primary Staff DmmggmftkXudavayzkf55/4/21Team MemberRelationshipSpecialtyStart DateEnd Date Misha Sy, DO [address] [place] [address] PCP - GeneralFamily Medicine05/12/20 Misha Sy, DO [address] [place] [address] ReferringFamily Medicine08/24/17 Hyun Leiva [address] [place] [address] ReferringFami Medicine05/12/20 Blayne Barajas MD [address] [place] [address] Primary Staff TijvbupwgBimngejway26/4/21Team MemberRelationshipSpecialtyStart DateEnd Date Misha Sy DO 348 [facility] 2 [place] [address] PCP - GeneralFamily Medicine05/12/20 Misha Sy, DO [address] [place] [address] 2 [place] [address] ReferringFamily Medicine08/24/17 Hyun Leiva M [address] [address] ReferringFamily Medicine05/12/20 Blayne Barajas MD [address] [place] [address] Primary Staff TdxeguloqCqcesqcoec95/4/21Team MemberRelationshipSpecialtyStart DateEnd Date Misha Sy DO [address] [place] [address] PCP - Generalmily Medicine05/12/20 Misha Sy DO [address] [place] [address] ReferringFami Medicine08/24/17 Hyun Leiva [address] [address] ReferringFamily Medicine05/12/20 Blayne Barajas MD [address] [place] [address] Primary Staff GzgqulyaaOjxkbdqmzf13/4/21Team MemberRelationshipSpecialtyStart DateEnd Date Misha Sy DO [address] [place] [address] PCP - GeneralFamily Medicine05/12/20 Misha Sy DO 348 [facility] 2 [place] [address] ReferringFamily Medicine08/24/17 Hyun Leiva [address] [address] ReferringFamily Medicine05/12/20 Blayne Barajas MD [address] [place] [address] Primary Staff RzhgdjnlcPabxzcoetv24/4/21Team MemberRelationshipSpecialtyStart DateEnd Date Misha Sy DO [address] [address] PCP - GeneralFamily Medicine05/12/20 Misha Sy DO [address] [address] ReferringFamily Medicine08/24/17 Hyun Leiva [address] [address] ReferringFamily Medicine05/12/20 Blayne Barajas MD [address] [place] [address] Primary Staff CzsemdgkyChmabljeme33/4/21Team MemberRelationshipSpecialtyStart DateEnd Date Misha Sy DO [address] [address] PCP - GeneralFamily Medicine05/12/20 Misha Sy DO 348 [facility] 2 [place] [address] ReferringFamily Medicine08/24/17 Hyun Leiva 7[address] [facility] [address] [place] [address] ReferringFamily Medicine05/12/20 Blayne Barajas MD [address] [place] [address] Primary Staff FzfazbmnmRoojaepomk39/4/21Team MemberRelationshipSpecialtyStart DateEnd Date Misha Sy DO [address] [address] PCP - GeneralFamily Medicine05/12/20 Misha Sy DO [address] [address] ReferringFamily Medicine08/24/17 Hyun Leiva [address] [address] ReferringFamily Medicine05/12/20 Blayne Barajas MD [address] [place] [address] Primary Staff NauhceohiWfpdcoewib19/4/21Team MemberRelationshipSpecialtyStart DateEnd Date Misha Sy DO [address] [address] PCP - GeneralFamily Medicine05/12/20 Misha Sy DO [address] [address] ReferringFamily Medicine08/24/17 Hyun Leiva [address] [address] ReferringFamily Medicine05/12/20 Blayne Barajas MD [address] [place] [address] Primary Staff JzofpivsiSdwzqfrdst83/4/21Team MemberRelationshipSpecialtyStart DateEnd Date Misha Sy DO [address] [address] PCP - GeneralFamily Medicine05/12/20 Misha Sy DO [address] [address] ReferringFamily Medicine08/24/17 Hyun Leiva [address] [address] ReferringFamily Medicine05/12/20 Blayne Barajas MD [address] [place] [address] Primary Staff FvdcugyrqNfyzyshohm04/4/21Team MemberRelationshipSpecialtyStart DateEnd Date Misha Sy DO [address] [address] PCP - GeneralFamily Medicine05/12/20 Misha Sy DO [address] [address] ReferringFamily Medicine08/24/17 Hyun Leiva [address] [address] ReferringFamily Medicine05/12/20 Blayne Barajas MD [address] [place] [address] Primary Staff CvlyofrqiHlhullriva68/4/21Team MemberRelationshipSpecialtyStart DateEnd Date Misha Sy DO [address] [place] [address] PCP - GeneralFamily Medicine05/12/20 Misha Sy DO [address] [place] [address] ReferringFamily Medicine08/24/17 Hyun Leiva [address] [address] ReferringFamily Medicine05/12/20 Blayne Barajas MD [address] [place] [address] Primary Staff GnuzvaifjUqyqyvcavu54/4/21Team MemberRelationshipSpecialtyStart DateEnd Date Misha Sy DO [address] [address] PCP - GeneralFamily Medicine05/12/20 Misha Sy DO [address] [place] [address] ReferringFamily Medicine08/24/17 Hyun Leiva [address] [address] ReferringFamily Medicine05/12/20 Blayne Barajas MD [address] [place] [address] Primary Staff EquwujuzjAzuexnzzmj18/4/21Team MemberRelationshipSpecialtyStart DateEnd Date Misha Sy DO [address] [place] [address] PCP - GeneralFamily Medicine05/12/20 Misha Sy DO [address] [address] ReferringFami Medicine08/24/17 Hyun Leiva [address] [address] ReferringFami Medicine05/12/20 Blayne Barajas MD [address] [place] [address] Primary Staff CbhorrnnhLbdzipawcb49/4/21 Team Status: Inactive Member Role Status Dates Yolanda Staples DO Emergency Provider Active Livan Linda Care ProviderActiveDaljit Arroyo Provider, Attending ProviderActive Team Status: Inactive Member Role Status Dates Misha Sy DO Attending Provider Active Team MemberRelationshipSpecialtyStart DateEnd Date Misha Sy DO [address] [address] PCP - GeneralFamily Medicine05/12/20 Misha Sy DO [address] [address] ReferringFamily Medicine08/24/17 Hyun Leiva [address] [address] ReferringFamily Medicine05/12/20 Blayne Barajas MD [address] [place] [address] Primary Staff UwhdbzzceMieudmndlj94/4/21Team MemberRelationshipSpecialtyStart DateEnd Date Misha Sy DO [address] [place] [address] PCP - Generalmily Medicine05/12/20 Misha Sy DO [address] [place] [address] ReferringFamiChildren's [facility]08/24/17 Hyun Leiva [address] [address] ReferringFamily Medicine05/12/20 Blayne Barajas MD [address] [place] [address] Primary Staff MjoroqpktYogwnvwldc74/4/21Team MemberRelationshipSpecialtyStart DateEnd Date Misha Sy DO [address] [address] PCP - GeneralFamily Medicine05/12/20 Misha Sy DO [address] [address] ReferringFamily Medicine08/24/17 Hyun Leiva [address] [address] ReferringFamily Medicine05/12/20 Blayne Barajas MD [address] [place] [address] Primary Staff FgdalcptdGwauyesifm18/4/21Team MemberRelationshipSpecialtyStart DateEnd Date Misha Sy DO [address] [address] PCP - GeneralFamily Medicine05/12/20 Misha Sy DO [address] [address] ReferringFamily Medicine08/24/17 Hyun Leiva [address] [address] ReferringFamily Medicine05/12/20 Blayne Barajas MD [address] [place], [place] [address] Primary Staff PkjgzgjonUnewzcojga45/4/21Team MemberRelationshipSpecialtyStart DateEnd Date Misha Sy DO [address] [address] PCP - GeneralFamily Medicine05/12/20 Misha Sy DO [address] [address] ReferringFamily Medicine08/24/17 Hyun Leiva [address] [address] ReferringFamily Medicine05/12/20 Blayne Barajas MD [address] [place] [address] Primary Staff IepfixxhlPljffzoezp64/4/21Team MemberRelationshipSpecialtyStart DateEnd Date Misha Sy DO [address] [address] PCP - GeneralFamily Medicine05/12/20 Misha Sy DO [address] [address] ReferringFamily Medicine08/24/17 Hyun Leiva [address] [address] ReferringFamily Medicine05/12/20 Blayne Barajas MD [address] [place] [address] Primary Staff QbctawudlVtrnpdkldy38/4/21Team MemberRelationshipSpecialtyStart DateEnd Date Misha Sy DO [address] [address] PCP - GeneralFamily Medicine05/12/20 Misha Sy DO [address] [address] ReferringFamily Medicine08/24/17 Hyun Leiva [address] [address] ReferringFamily Medicine05/12/20 Blayne Barajas MD [address] [place], [place] [address] Primary Staff NryfggicwGbbjfbmykr52/4/21Team MemberRelationshipSpecialtyStart DateEnd Date Misha Sy DO [address] [address] PCP - GeneralFamily Medicine05/12/20 Misha Sy DO [address] [address] ReferringFamily Medicine08/24/17 Hyun Leiva [address] [address] ReferringFamily Medicine05/12/20 Blayne Barajas MD [address] [place] [address] Primary Staff ZjofhnskvAmeteryszp68/4/21Team MemberRelationshipSpecialtyStart DateEnd Date Misha Sy DO [address] [address] PCP - GeneralFamily Medicine05/12/20 Misha Sy DO [address] [address] ReferringFamily Medicine08/24/17 Hyun Leiva [address] [address] ReferringFamily Medicine05/12/20 Blayne Barajas MD [address] [place] [address] Primary Staff SsnowceluUdkzblnwzd61/4/21Team MemberRelationshipSpecialtyStart DateEnd Date Misha Sy DO [address] [address] [facility]05/12/20 Mihsa Sy DO [address] [address] ReferringFamily Medicine08/24/17 Hyun Leiva [address] [address] ReferringFamily Medicine05/12/20 Blayne Barajas MD [address] [place] [address] Primary Staff GlrcuaxdkKyvgbexevr82/4/21Team MemberRelationshipSpecialtyStart DateEnd Date Misha Sy DO [address] [address] PCP - GeneralFamily Medicine05/12/20 Misha Sy DO [address] [address] ReferringFamily Medicine08/24/17 Hyun Leiva [address] [address] ReferringFamily Medicine05/12/20 Blayne Barajas MD [address] [place] [address] Primary Staff ZzhdhvfiqEgsuqejtag19/4/21Team MemberRelationshipSpecialtyStart DateEnd Date Misha Sy DO [address] [address] PCP - Generalmi Medicine05/12/20 Misha Sy DO [address] [place] [address] ReferringFamily Medicine08/24/17 Hyun Leiva [address] [address] ReferringFamily Medicine05/12/20 Blayne Barajas MD [address] [place] [address] Primary Staff UmivfkzggSwrtlvgwnk59/4/21Team MemberRelationshipSpecialtyStart DateEnd Date Misha Sy DO [address] [address] PCP - GeneralFamily Medicine05/12/20 Misha Sy DO [address] [address] ReferringFamily Medicine08/24/17 Hyun Leiva [address] [address] ReferringFamily Medicine05/12/20 Blayne Barajas MD [address] [place] [address] Primary Staff NzgegonmjBnafkdodhh64/4/21Team MemberRelationshipSpecialtyStart DateEnd Date Misha Sy DO [address] [address] PCP - GeneralFamily Medicine05/12/20 Misha Sy DO [address] [address] ReferringFamily Medicine08/24/17 Hyun Leiva [address] [address] ReferringFamily Medicine05/12/20 Blayne Barajas MD [address] [place] [address] Primary Staff WzhsrmeioMeshggfqgs53/4/21Team MemberRelationshipSpecialtyStart DateEnd Date Misha Sy DO [address] [address] PCP - GeneralFamily Medicine05/12/20 Misha Sy DO [address] [address] ReferringFamily Medicine08/24/17 Hyun Leiva [address] [address] ReferringFamily Medicine05/12/20 Blayne Barajas MD [address] [place] [address] Primary Staff EtyajttxkVqdjgrnqlv15/4/21Team MemberRelationshipSpecialtyStart DateEnd Date Misha Sy DO [address] [address] PCP - GeneralFamily Medicine05/12/20 Misha Sy DO [address] [address] ReferringFamily Medicine08/24/17 Hyun Leiva [address] [address] ReferringFamily Medicine05/12/20 Blayne Barajas MD [address] [place] [address] Primary Staff BprttlmhsPeigyopkpe65/4/21Team MemberRelationshipSpecialtyStart DateEnd Date Misha Sy DO [address] [address] PCP - GeneralFamily Medicine05/12/20 Misha Sy DO 348 [facility] 2 [place] [address] ReferringFamily Medicine08/24/17 Hyun Leiva 7[address] [employer] [address] [place] [address] ReferringFamily Medicine05/12/20 Blayne Barajas MD [address] [place] [address] Primary Staff RppptfjigWszjclqarm36/4/21Team MemberRelationshipSpecialtyStart DateEnd Date Misha Sy DO [address] [address] PCP - Generalmily Medicine05/12/20 Misha Sy DO [address] [address] ReferringFamily Medicine08/24/17 Hyun Leiva 7[address] [facility] [address] [place] [address] ReferringFamily Medicine05/12/20 Blayne Barajas MD [address] [place] [address] Primary Staff UtvlvawvaTsciyoxsby36/4/21Team MemberRelationshipSpecialtyStart DateEnd Date Misha Sy DO [address] [address] PCP - GeneralFamily Medicine05/12/20 Misha Sy DO [address] [address] ReferringFami Medicine08/24/17 Hyun Leiva [address] [address] [facility] Medicine05/12/20 Blayne Barajas MD [address] [place] [address] Primary Staff SqkjbdxxoXihminysou72/4/21 Team Status: Active Member Role Status Dates NON STAFF Primary Care Provider Active Team Status: Inactive Member Role Status Dates Misha Sy DO Attending Provider Active S tart: January 23, 2023 End: January 23, 2023Team MemberRelationshipSpecialtyStart DateEnd Date Misha yS DO [address] [address] [facility] Misha Sy DO [address] [address] [facility] Medicine08/24/17 Hyun Leiva [address] [address] Referring[facility] Medicine05/12/20 Blayne Barajas MD [address] [place] [address] Primary Staff PknfgpzkiYtryyhcuxl15/4/21 Team Status: Active Member Role Status Dates Misha M. Kerrie , DO Primary Care Provider Active Start: June 25, 2023 Razia Vidal ProviderActiveStart: June 25, 2023 Team Status: Inactive Member Role Status Dates Misha Sy DO Primary Care Provid er, Attending Provider Active Start: July 20, 2023 End: July 20, 2023Team MemberRelationshipSpecialtyStart DateEnd Date Misha Sy DO [address] [address] PCP - [facility] Medicine05/12/20 Misha Sy DO [address] [address] [facility]erring[facility] Medicine08/24/17 Hyun Leiva [address] [address] [facility]erring[facility] Medicine05/12/20 Blayne Barajas MD [address] [place] [address] Primary Staff YczswqvpjFvrnfshaja79/4/21 Team Status: Active Member Role Status Dates Misha Sy DO Primary Care Provider Active Start: August 27, 2023 Razia Vidal ProviderActiveStart: August 27, 2023 Team Status: Inactive Member Role Status Dates Misha Sy DO Primary Care Provid er, Attending Provider Active Start: October 09, 2023 End: October 09, 2023Team MemberRelationshipSpecialtyStart DateEnd Date Misha Sy DO [address] [address] PCP - [facility]05/12/20 Misha Sy DO [address] [place] [address] ReferringFamily Medicine08/24/17 Hyun Leiva [address] [address] ReferringFamily Medicine05/12/20 Blayne Barajas MD [address] [place] [address] Primary Staff IedklqycwAvharfwsvj48/4/21 Team Status: Active Member Role Status Dates Misha Sy DO Primary Care Provider Active Start: October 29, 2023 Razia Vidal ProviderActiveStart: October 29, 2023 Team Status: Inactive Member Role Status Dates Misha Sy DO Primary Care Provider Active Start: November 28, 2023 End: November 27Curtis Kemp ProviderActiveStart: November 28, 2023 End: November 28, 2023 Team Status: Inactive Member Role Status Dates Misha Sy DO Primary Care Provid er, Attending Provider Active Start: December 11, 2023 End: December 11, 2023 Team Status: Inactive Member Role Status Dates Misha Sy DO Primary Care Provider Active Start: January 11, 2024 End: January 10Jennifer Miller ProviderActiveStart: January 11, 2024 End: January 11, 2024 Team Status: Inactive Member Role Status Dates Misha Sy DO Primary Care Provid er, Attending Provider Active Start: January 28, 2024 End: January 28, 2024 Team Status: Active Member Role Status Dates Misha Sy DO Primary Care Provider Active Start: February 18, 2024 Razia Vidal ProviderActiveStart: February 18, 2024 Team Status: Inactive Member Role Status Dates Misha Sy DO Primary Care Provider Active Start: February 28, 2024 End: February 27Jennifer Miller ProviderActiveStart: February 28, 2024 End: February 28, 2024 Team Status: Inactive Member Role Status Dates Melanie Meyer PA-C Attending Provider Active St art: February 28, 2024 End: February 28, 2024 Team Status: Inactive Member Role Status Dates Edie Dolan APRN Attending Provider Active Start: March 28, 2024 End: March 28, 2024Livan Linda ProviderActiveStart: March 28, 2024 End: March 28, 2024 Team Status: Inactive Member Role Status Dates Misha Sy DO Primary Care Provid er, Attending Provider Active Start: March 31, 2024 End: March 31, 2024Team MemberRelationshipSpecialtyStart DateEnd Date Misha Sy DO [address] [address] PCP - GeneralFamily Medicine05/12/20 Misha Sy DO [address] [address] ReferringFamily Medicine08/24/17 Hyun Leiva [address] [address] ReferringFamily Medicine05/12/20 Blayne Barajas MD [address] [place] [address] Primary Staff LurpcrkppJppdsyclvx45/4/21 Team Status: Active Member Role Status Dates Krystina Schuster Assembly Line Supervisor Active Livan Linda ProviderActive Team Status: Active Member Role Status Dates Misha Sy DO Primary Care Provider Active Start: April 09, 2024 Krystina Partidaending ProviderActiveStart: April 09, 2024 Team Status: Inactive Member Role Status Dates Misha Sy DO Primary Care Provider Active Start: May 31, 2024 End: May 31Curtis Kemp ProviderActiveStart: May 31, 2024 End: May 31, 2024 Team Status: Active Member Role Status Dates Krystina Schuster Assembly Line Supervisor Active Team Status: Inactive Member Role Status Dates Rajni Decker APRN Attending Provider Active Sta rt: May 31, 2024 End: May 31, 2024 Team Status: Active Member Role Status Dates Oksana Brooks DO Attending Provider Active Start: June 02, 2024 Team Status: Active Member Role Status Dates Krystina Schuster Attending Provider Active Start : June 03, 2024 Team Status: Inactive Member Role Status Dates Celeste Saenz DNP Attending Provider Active S tart: June 12, 2024 End: June 12, 2024Jordy [facility] Care ProviderActiveStart: June 12, 2024 End: June 12, 2024 Team Status: Inactive Member Role Status Dates Misha Sy DO Primary Care Provid er, Attending Provider Active Start: June 19, 2024 End: June 19, 2024Team MemberRelationshipSpecialtyStart DateEnd Date Misha yS DO [address] [address] [facility]05/12/20 Misha yS DO [address] [address] [facility] Medicine08/24/17 Hyun Leiva [address] [address] [facility]erring[facility] Medicine05/12/20 Team Status: Inactive Member Role Status Dates Misha Sy DO Primary Care Provider Active Start: June 27, 2024 End: June 27manda Ventura , RDAttending ProviderActiveStart: June 27, 2024 End: June 27, 2024 Team Status: Inactive Member Role Status Dates Misha Sy DO Primary Care Provider Active Start: July 13, 2024 End: July 13Curtis Kemp ProviderActiveStart: July 13, 2024 End: July 13, 2024 Team Status: Active Member Role Status Dates Misha Sy DO Primary Care Provider Active Start: July 13, 2024 [place] ProviderActiveStart: July 13, 2024 Team MemberRelationshipSpecialtyStart DateEnd Date Misha Sy DO [address] [address] P[facility] - [facility] Medicine05/12/20 Misha Sy DO [address] [address] [facility]08/24/17 Hyun Leiva [address] [address] Referring[facility] Medicine05/12/20Team MemberRelationshipSpecialtyStart DateEnd Date Misha Sy DO [address] [address] [facility] - [facility] Medicine05/12/20 Misha Sy DO [address] [address] [facility] Medicine08/24/17 Hyun Leiva [address] [address] [facility]erring[facility]05/12/20Team MemberRelationshipSpecialtyStart DateEnd Date Misha Sy DO 348 [facility] [address] [place] [address] PCP - [facility] Medicine05/12/20 Misha Sy DO 348 [facility] [address] [place] [address] [facility]erring[facility]08/24/17 Hyun Leiva [address] [address] [facility]05/12/20 Team Status: Inactive Member Role Status Dates Misha Sy DO Primary Care Provider Active Start: June 19, 2024 End: June 19, 2024Misha Sy DOAttending ProviderActiveStart: June 19, 2024 End: June 19, 2024 Team Status: Inactive Member Role Status Dates Misha Sy DO Primary Care Provider Active Start: July 28, 2024 End: July 28, 2024Jemontserrat Saenz DNPAttending ProviderActiveStart: July 28, 2024 End: July 28, 2024 Team Status: Inactive Member Role Status Dates Misha Sy DO Primary Care Provider Active Start: July 31, 2024 End: July 31, 2024Madismaximiliano ClintonpertAttending ProviderActiveStart: July 31, 2024 End: July 31, 2024 Team Status: Inactive Member Role Status Dates Misha Sy DO Primary Care Provider Active Start: August 07, 2024 End: August 07carlos Whitehead RDAttending ProviderActiveStart: August 07, 2024 End: August 07, 2024Team MemberRelationshipSpecialtyStart DateEnd Date Misha Sy DO 348 [facility] [place] [address] [facility] - [facility] Medicine05/12/20 Misha Sy DO [address] [address] ReferringF[facility] Medicine08/24/17 Hyun Leiva [address] [address] [facility] Medicine05/12/20Team MemberRelationshipSpecialtyStart DateEnd Date Misha Sy DO [address] [address] PCP - [facility]05/12/20 Misha Sy DO [address] [address] Referring[facility] Medicine08/24/17 Hyun Leiva [address] [address] [facility] Medicine05/12/20 Team Status: Active Member Role Status Dates Misha Sy DO Primary Care Provider Active Start: August 08, 2024 David Kevin DOAttending ProviderActiveStart: August 08, 2024 Team Status: Active Member Role Status Dates Misha Sy DO Primary Care Provider Active Start: August 10, 2024 Sandra Bautista ProviderActiveStart: August 10, 2024 Team Status: Active Member Role Status Dates Misha Sy DO Primary Care Provider Active Start: August 13, 2024 Misha Sy DOAttending ProviderActiveStart: August 13, 2024 Team Status: Inactive Member Role Status Dates Misha Sy DO Primary Care Provider Active Start: August 13, 2024 End: August 13, 2024Madison RospertAttending ProviderActiveStart: August 13, 2024 End: August 13, 2024 Team Status: Inactive Member Role Status Dates Misha Sy DO Primary Care Provider Active Start: August 13, 2024 End: August 13, 2024Misha Sy DOAttending ProviderActiveStart: August 13, 2024 End: August 13, 2024Team MemberRelationshipSpecialtyStart DateEnd Date Generic Provider, [place] [address] PCP - [facility]02/26/24 Team Status: Inactive Member Role Status Dates Misha Sy DO Primary Care Provider Active Start: August 19, 2024 End: August 19, 2024Madison RospertAttending ProviderActiveStart: August 19, 2024 End: August 19, 2024 Team Status: Inactive Member Role Status Dates Misha Sy DO Primary Care Provider Active Start: August 27, 2024 End: August 27nnCurtis Virk ProviderActiveStart: August 27, 2024 End: August 27, 2024 Team Status: Active Member Role Status Dates Rajni Decker APRN Attending Provider Active Sta rt: August 27, 2024 Team Status: Active Member Role Status Dates Krystina Schuster Assembly Line Supervisor Active Jordy Lindav[facility] Care ProviderActivePHYSICIAN NO FAMILYPrimary Care ProviderActive Team Status: Inactive Member Role Status Dates Rajni Decker APRN Attending Provider Active Sta rt: August 27, 2024 End: August 27, 2024PHYSICIAN NO FAMILYPrimary Care ProviderActiveStart: August 27, 2024 End: August 27, 2024Team MemberRelationshipSpecialtyStart DateEnd Date Misha Sy DO [address] [address] PCP - [facility]05/12/20 Misha Sy DO [address] [place] [address] [facility] Medicine08/24/17 Cali Hyun M [address] [address] ReferringFamily Medicine05/12/20 Team Status: Active Member Role Status Dates Krystina Schuster Attending Provider Active Start : September 09, 2024 Team Status: Inactive Member Role Status Dates Misha Sy DO Primary Care Provider Active Start: September 17, 2024 End: September 17, 2024Misha Sy DOAttending ProviderActiveStart: September 17, 2024 End: September 17, 2024 Team Status: Inactive Member Role Status Dates Misha Sy DO Primary Care Provider Active Start: September 25, 2024 End: September 25, 2024Dakota Lindaending ProviderActiveStart: September 25, 2024 End: September 25, 2024 Team Status: Inactive Member Role Status Dates Misha Sy DO Primary Care Provider Active Start: September 30, 2024 End: September 30carlos Whitehead RDAttending ProviderActiveStart: September 30, 2024 End: September 30, 2024 Team Status: Inactive Member Role Status Dates Misha Sy DO Primary Care Provider Active Start: July 13, 2024 End: July 13Curtis Higginbotham ProviderActiveStart: July 13, 2024 End: July 13, 2024 Team Status: Inactive Member Role Status Dates Misha Sy DO Primary Care Provider Active Start: August 27, 2024 End: August 27Curtis Higginbotham ProviderActiveStart: August 27, 2024 End: August 27, 2024 Team Status: Inactive Member Role Status Dates Rajni Silverio APRN Attending Provider Active S tart: August 27, 2024 End: August 27, 2024PHYSICIAN NO FAMILYPrimary Care ProviderActiveStart: August 27, 2024 End: August 27, 2024 Team Status: Inactive Member Role Status Dates Misha yS DO Primary Care Provider Active Start: October 09, 2024 End: October 09, 2024Misha Sy DOAttending ProviderActiveStart: October 09, 2024 End: October 09, 2024Team MemberRelationshipSpecialtyStart DateEnd Date Misha Sy DO [address] [address] [facility] - [facility] Medicine05/12/20 Misha Sy DO [address] [place] [address] [facility]08/24/17 Hyun Leiva [address] [place] [address] [facility]05/12/20 Team Status: Inactive Member Role Status Dates Misha Sy DO Primary Care Provider Active Start: October 21, 2024 End: October 21Curtis Arizmendi ProviderActiveStart: October 21, 2024 End: October 21, 2024 Team Status: Inactive Member Role Status Dates Misha Sy DO Primary Care Provider Active Start: October 23, 2024 End: October 23, 2024Misha Sy DOAttending ProviderActiveStart: October 23, 2024 End: October 23, 2024 Team Status: Inactive Member Role Status Dates Misha Sy DO Primary Care Provider Active Start: November 05, 2024 End: November 05, 2024Curtis Eldridge ProviderActiveStart: November 05, 2024 End: November 05, 2024 Team Status: Active Member Role Status Dates Misha Sy DO Primary Care Provider Active Start: November 20, 2024 Yoanna Ventura , RDAttending ProviderActiveStart: November 20, 2024 Team Status: Inactive Member Role Status Dates Misha Sy DO Primary Care Provider Active Start: November 20, 2024 End: November 20, 2024Celeste Saenz DNPAttending ProviderActiveStart: November 20, 2024 End: November 20, 2024 Team Status: Inactive Member Role Status Dates Misha Sy DO Primary Care Provider Active Start: November 20, 2024 End: November 20carlos Whitehead RDAttending ProviderActiveStart: November 20, 2024 End: November 20, 2024 Team Status: Inactive Member Role Status Dates Misha Sy DO Primary Care Provider Active Start: November 25, 2024 End: November 25, 2024Misha Sy DOAttending ProviderActiveStart: November 25, 2024 End: November 25, 2024 Team Status: Active Member Role/Relationship Status Dates Krystina Schuster Assembly Line Supervisor Active [facility] Care ProviderActive Team Status: Inactive Member Role/Relationship Status Dates Misha Sy DO Primary Care Provider Active Start: September 25, 2024 End: September 25, 2024Misha Sy DOAttending ProviderActiveStart: September 25, 2024 End: September 25, 2024 Team Status: Inactive Member Role/Relationship Status Dates Misha Sy DO Primary Care Provider Active Start: September 30, 2024 End: September 30carlos Whitehead RDAttending ProviderActiveStart: September 30, 2024 End: September 30, 2024 Team Status: Inactive Member Role/Relationship Status Dates Misha Sy DO Primary Care Provider Active Start: October 09, 2024 End: October 09, 2024Misha Sy DOAttending ProviderActiveStart: October 09, 2024 End: October 09, 2024 Team Status: Inactive Member Role/Relationship Status Dates Misha Sy DO Primary Care Provider Active Start: October 21, 2024 End: October 21Curtis Arizmendi ProviderActiveStart: October 21, 2024 End: October 21, 2024 Team Status: Inactive Member Role/Relationship Status Dates Misha Barclayes DO Primary Care Provider Active Start: October 23, 2024 End: October 23, 2024Setcharly JooJoby Barclayes DOAttending ProviderActiveStart: October 23, 2024 End: October 23, 2024 Team Status: Inactive Member Role/Relationship Status Dates Misha Sy DO Primary Care Provider Active Start: November 05, 2024 End: November 05, 2024Curtis Eldridge ProviderActiveStart: November 05, 2024 End: November 05, 2024 Team Status: Inactive Member Role/Relationship Status Dates Misha Sy DO Primary Care Provider Active Start: November 20, 2024 End: November 20carlos Whitehead RDAttending ProviderActiveStart: November 20, 2024 End: November 20, 2024 Team Status: Inactive Member Role/Relationship Status Dates Misha Sy DO Primary Care Provider Active Start: November 20, 2024 End: November 20, 2024Celeste Saenz DNPAttending ProviderActiveStart: November 20, 2024 End: November 20, 2024 Team Status: Inactive Member Role/Relationship Status Dates Misha Barclayes DO Primary Care Provider Active Start: November 25, 2024 End: November 25, 2024Setcharly JooJoby Barclayes DOAttending ProviderActiveStart: November 25, 2024 End: November 25, 2024 Team Status: Active Member Role/Relationship Status Dates Misha Barclayes DO Primary Care Provider Active Start: December 11, 2024 Misha Barclayes DOAttending ProviderActiveStart: December 11, 2024 Team Status: Inactive Member Role/Relationship Status Dates Misha Sy DO Primary Care Provider Active Start: December 18, 2024 End: December 18carlos Whitehead RDAttending ProviderActiveStart: December 18, 2024 End: December 18, 2024 Team Status: Inactive Member Role/Relationship Status Dates Misha Sy DO Primary Care Provider Active Start: December 18, 2024 End: December 18carlos Rexford RDAttending ProviderActiveStart: December 18, 2024 End: December 18, 2024 Team Status: Active Member Role/Relationship Status Dates Misha Sy DO Primary Care Provider Active Start: December 19, 2024 Misha Gaonaglabby Attending ProviderActiveStart: December 19, 2024 Team Status: Inactive Member Role/Relationship Status Dates Misha Sy DO Primary Care Provider Active Start: December 23, 2024 End: December 23, 2024Celeste Saenz BRITTNEYAttending ProviderActiveStart: December 23, 2024 End: December 23, 2024 Reason for Visit (unrecogniz ed section and content) ReasonCommentsFollow UpSpecialtyDiagnoses / ProceduresReferred By Contact Referred To ContactADULT PSYCHOLOGY Diagnoses Follow Up Procedures VIDEO PSYC/PSYL EST Self Judy Gamez PSYD [address] [place] [address] Phone: tel: fax: Referral IDStatusReasonStart DateExpiration DateVisits RequestedVisits [id number]/12/20252/[id number]i Cancelled SpecialtyDiagnoses / ProceduresReferred By ContactReferred To ContactInternal Medicine / WELLNESS Diagnoses Post-acute 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) Brain fog POTS (postural orthostatic tachycardia syndrome) Procedures CONSULT TO WELLNESS PHYSICIAN OFFICE/OUTPATIENT [facility] 60-74 MINUTES Shaniqua Toussaint, UTILITY SYSTEM REPAIRER.CAKE MAKER [address] [place] [address] Shanika Forte MD [address] [place] [address] Referral IDStatusReasonStaustin DateExpiration DateVisits RequestedVisits [id number] PCP Requested Referral Benefit Check [id number] / ProceduresReferred By Contact Referred To ContactNEUROLOGICAL INSTITUTE Diagnoses Dizziness Procedures REFERRAL TO [facility] FINANCIAL COUNSELOR Jimenez Sandoval MD [address] [place] [address] [place] [address] Referral IDStatusReasonStart DateExpiration DateVisits RequestedVisits [id number]/27/20233/[id number]Youbvvpoi Diagnoses / ProceduresReferred By ContactReferred To [facility] Diagnoses Dizziness Procedures REFERRAL TO [facility] FINANCIAL COUNSELOR Alvin Huddleston DO [address] [place] [address] [place] [address] Referral IDStatusReasonStart DateExpiration DateVisits RequestedVisits [id number]/7/20233/7/911986XxeefkqsnIicylilld / Procedures Referred By ContactReferred To ContactADULT PSYCHOLOGY Diagnoses f/u Procedures VIDEO PSYC/PSYL EST Self Judy Gamez PSYD [address] [place] [address] Referral IDStatusReasonStart DateExpiration DateVisits RequestedVisits [id number] PCP/[id number] / Procedures Referred By ContactReferred To ContactPsychology Diagnoses PTSD (post-traumatic stress disorder) Generalized anxiety disorder Adjustment disorder with depressed mood Procedures CONSULT TO PSYCHOLOGY OFFICE/OUTPATIENT [facility] 60-74 MINUTES Queta Ward PSYD [id number] [place] [address] Referral IDStatusReasonStart DateExpiration DateVisits RequestedVisits [id number] for Response PCP Requested Referral /[id number] / ProceduresReferred By ContactReferred To ContactPsychology / ADULT PSYCHOLOGY Diagnoses therapy Procedures VIDEO PSYC/PSYL EST Self Queta Ward, MICHAEL [address] [place] [address] Referral IDStatusReasonStart DateExpiration DateVisits RequestedVisits [id number] [facility]/[id number]iKubgti CommentsFollow UpReasonCommentsPatient EducationReassessmentReasonComments paperworkReasonCommentsRefill RequestReasonCommentsResultsReasonOnset Date CommentsRefill Cpnupjk15/07/2022ReasonOnset DateCommentsRefill Mqdfosk3107/20/2021 ReasonCommentsPROVIDER REQUESTREQUEST FOR RECORDS - FAXED/FORWARDED TO MEDICAL RECORDSReasonCommentsRelease Of Medical RecordsReasonCommentsOtherRelease of medical recordsReasonCommentsEstablished PatientReasonCommentsPatient Update ReasonCommentsFormsMedco-14 formsReasonCommentsfollow up formsSpecialtyDiagnoses / ProceduresReferred By ContactReferred To ContactD[facility] Practice / WELLNESS Diagnoses FOLLOW UP Forms Procedures EST ID PATIENT SelfMD Hernandez Robert, [place] [address] Referral IDStatusReasonStart DateExpiration DateVisits RequestedVisits [id number] Benefit Check [id number] EducationNutrition AssessmentReason CommentsMedCo 14 FormReasonCommentsGroup PsychotherapyReasonCommentsReceived Outside Medical RecordsletterReasonCommentsFormsMedco-14ReasonCommentsPatient EducationNutrition CounselingSpecialtyDiagnoses / ProceduresReferred By Contact Referred To [facility] / WELLNESS Diagnoses FOLLOW UP Forms Procedures EST ID PATIENT Self Alvin Ng MD [facility] [address] [place] [address] Referral IDStatusReasonStart DateExpiration DateVisits RequestedVisits [id number] Benefit Check 525Referral IDStatusReasonStart DateExpiration DateVisits RequestedVisits [id number]/1/202312/31/26296804JhcbkqOhtsezyg eGne Darby letter requestReasonCommentsMEDCOReasonCommentsPatient QuestionReasonCommentsOrdersReferral IDStatusReasonStart DateExpiration Date Visits RequestedVisits [id number]//[id number] DateCommentsRefill Cagbzgf5103/23/2022ReasonCommentsmedcoReasonCommentsFollow Up Medco & Referral for TherapySpecialtyDiagnoses / ProceduresReferred By Contact Referred To ContactNEUROLOGICAL INSTITUTE Diagnoses Dizziness Procedures REFERRAL TO [facility] FINANCIAL COUNSELOR Follow up appt Jimenez Sandoval MD [address] [place] [address] [facility] [address] [place], [place] [id number] Referral IDStatusReasonStart DateExpiration DateVisits RequestedVisits [id number]/[id number] Outside Medical RecordsWeinstein & AssociatesReasonCommentsEducation Of Patient/family ReasonCommentsNew PatientReferral IDStatusReasonStart DateExpiration DateVisits RequestedVisits [id number]/14/20233/632578PmrnntAvaefeet AppointmentLVM on pt phone re: scheduling F/U-Report first available w/ Dr. Lanier per Med Advice msg from Pneumatic System Conveyor Operator. Pt may contact Belinda scheduling at opt #1 or SIA scheduling at . Dates are June 01 or June 4 @4:15P In-personReferral IDStatusReasonStart Date Expiration DateVisits RequestedVisits [id number]/21/20233/ 93EoelakUxbomibtBsklsT2 denial formReasonCommentsReceived Outside Medical RecordsProMedicaReasonCommentsAnxietyPosttraumatic Stress DisorderSpecialty Diagnoses / ProceduresReferred By ContactReferred To ContactPsychiatry / ADULT PSYCHIATRY Diagnoses New [place]iryam per Dr. Enriquez Procedures VIDEO PSYC/PSYL NEW Self Liliane Enriquez MD [address] [place] [address] Referral IDStatusReasonStart DateExpiration DateVisits RequestedVisits [id number] PCP//[id number]vipx PatientLong COVIDSpecialtyDiagnoses / ProceduresReferred By ContactReferred To ContactFUNCTIONAL MEDICINE Diagnoses POTS (postural orthostatic tachycardia syndrome) Orthostatic lightheadedness Tachycardia Procedures CONSULT TO FUNCTIONAL MEDICINE OFFICE/OUTPATIENT [facility] 60-74 MINUTES Alvin Huddleston DO [address] [id number] [facility] [address] [place] [address] Referral IDStatusReasonStart DateExpiration DateVisits RequestedVisits [id number] PCP Requested Referral /[id number] Duplex Trimmer infoReasonCommentsOrdersReason CommentsGroup TherapyReasonCommentsFormsMaximum Medical Improvement QuestionnaireReasonOnset DateCommentsRefill Mtzfonh7108/19/2022ReasonOnset Date CommentsRefill Zuegjuj0408/31/2022ReasonOnset DateCommentsRefill Ewavuhg5909/07/2022 ReasonOnset DateCommentsRefill Waorhxj8809/15/2022ReasonCommentsWellnessReason Commentsmedco 14 form neededReasonCommentsPhysical TherapySpecialtyDiagnoses / ProceduresReferred By ContactReferred To ContactREHAB AND SPORTS THERAPY INS Diagnoses POTS (postural orthostatic tachycardia syndrome) Activity intolerance Impaired functional mobility, balance, gait, and endurance Procedures PT REHAB FOLLOW UP ORDER THERAPEUTIC EXERCISES RE, EA 15 MIN. Jaskaran Guzman APRN.CAKE MAKER [address] [facility] [phone] [facility] [address] [place] [address] Referral IDStatusReasonStart DateExpiration DateVisits RequestedVisits [id number] PCP Requested Referral Auto-Generated Referral /[id number] / ProceduresReferred By Contact Referred To ContactCardiology Diagnoses Nonspecific abnormal electrocardiogram (ECG) (EKG) Chest discomfort Tachycardia Procedures CONSULT TO CARDIOLOGY OFFICE/OUTPATIENT NEW HIGH MDM 60-74 MINUTES Jaskaran Guzman APRN.CAKE MAKER [address] [facility] [id number] [place] [address] Referral IDStatusReasonStart DateExpiration DateVisits RequestedVisits [id number] PCP Requested Referral /[id number] UpSpecialtyDiagnoses / Procedures Referred By ContactReferred To Contact Diagnoses PTSD (post-traumatic stress disorder) Post-acute 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) Procedures PROVIDER ORDERED FOLLOW UP OFFICE/OUTPATIENT [facility] MDM 60 MINUTES Judy Gamez PSYD [address] [place] [address] Referral IDStatusReasonStart DateExpiration DateVisits RequestedVisits [id number] PCP Requested Referral /[id number] Outside Medical RecordsBellevue HospitalReasonSaint Mary'S Health CentermentsInsurance AuthorizationSpecialtyDiagnoses / Procedures Referred By ContactReferred To Contact Diagnoses PTSD (post-traumatic stress disorder) Post-acute 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) Procedures PROVIDER ORDERED FOLLOW UP OFFICE/OUTPATIENT [facility] MDM 60 MINUTES Judy Gamez PSYD [address] [place] [address] Referral IDStatusReasonStart DateExpiration DateVisits RequestedVisits [id number] PCP Requested Referral [id number] Skin LesionSpecialtyDiagnoses / ProceduresReferred By ContactReferred To ContactADULT PSYCHOLOGY Diagnoses Follow Up Procedures VIDEO PSYC/PSYL EST Malik GameznMICHAEL [address] [place] [address] Phone: tel: fax: Judy Gamez PSYD [address] [place] [address] Phone: tel: fax: Referral IDStatusReasonStart DateExpiration DateVisits RequestedVisits [id number]/30/20255/30/943704EgzuyfSkeffnvwKqxtmm / Staple RemovalReasonCommentsNew PatientChronic nausea, Deficiency of other B group vitaminsReasonCommentsOpened In ErrorReasonCommentsFollow-upReasonCommentsAcne ReasonCommentschemical peel Goals (unrecognized section and content) Goals may be documented in a n alternate section FOR RECORDS PERTAINING TO PATIENTS WHO ARE OR HAVE BEEN ENROLLED IN A CHEMICAL DEPENDENCY/SUBSTANCEABUSE PROGRAM, SOME INFORMATION MAY BE OMITTED. This clinical summary was aggregated from multiple sources. Caution should be exercised in using it in the provision of clinical care. This summary normalizes information from multiple sources, and as a consequence, information in this document may materially change the coding, format and clinical context of patient data. In addition, data may be omitted in some cases. CLINICAL DECISIONS SHOULD BE BASED ON THE PRIMARY CLINICAL RECORDS. [facility] [address] [facility]. provides no warranty or guarantee of the accuracy or completeness of information in this document.
[2025-01-10 08:52] LABS: Glucose Urine UA NEGATIVE (NEGATIVE)
--- NOTE | 2025-01-10 09:04 | ED.GENADUL1 ---
HPI HPI - General Adult General Chief complaint: Headache Stated complaint: HEADACHE Time Seen by Provider: 01/10/25 07:19 Source: patient Mode of arrival: walk-in History of Present Illness HPI narrative: cc - headache and urinary symptoms Pt developed intermittent headaches about one month ago after a few years without headache. The latest started about 2-3 days ago. She is concerned that she has an aneurysm and asked for a head CT to be obtained. She said the headache is global, associated with nausea and is different from her past headaches - she was previously diagnosed with migraine, cluster variant. No fever or chills. No recent injury to the head or neck. She also complains of increased urinary frequency. No abdominal or flank pain. No blood in urine. Related Data Home Medications ?Medication ?Instructions ?Recorded ?Confirmed gabapentin 100 mg capsule 500 mg PO .qhs 12/25/22 01/10/25 meclizine 25 mg tablet 25 mg PO .q6 hours PRN dizziness 12/25/22 01/10/25 metoprolol tartrate 25 mg tablet 12.5 mg PO QAM 12/25/22 01/10/25 metoprolol tartrate 25 mg tablet 25 mg PO .qhs 12/25/22 01/10/25 ondansetron 4 mg disintegrating 4 mg translingual Q6H PRN nausea 12/25/22 01/10/25 tablet and vomiting tizanidine 4 mg tablet 4 mg PO .qhs 12/25/22 01/10/25 amoxicillin 875 mg-potassium 1 tab PO BID 01/10/25 01/10/25 clavulanate 125 mg tablet midodrine 5 mg tablet mg 01/10/25 pantoprazole 40 mg tablet,delayed mg PO 01/10/25 release spironolactone 25 mg tablet mg 01/10/25 tretinoin 0.025 % topical cream applic topical 01/10/25 Previous Rx's ?Medication ?Instructions ?Recorded ketorolac 10 mg tablet 10 mg PO TID PRN pain 5 days #15 01/10/25 tabs Allergies Allergy/AdvReac Type Severity Reaction Status Date / Time doxycycline AdvReac Headache Verified 01/10/25 07:19 sulfamethoxazole (From AdvReac Unknown Verified 01/10/25 07:19 Bactrim) trimethoprim (From Bactrim) AdvReac Unknown Verified 01/10/25 07:19 ssri Allergy Unknown Uncoded 01/10/25 07:19 Opioid HPI Opioid Management Most Recent Opioid Data: Last Pain Scale 5 Today, 08:09 Last MAR Pain Assessment Today, 08:09 PFSH [facility] Social History Smoking status: Former smoker Little interest or pleasure in doing things: not at all Feeling down, depressed, or hopeless: more than half the days Exam Narrative Exam Narrative: Nurses notes and vital signs reviewed and patient is not hypoxic. afebrile General: Well-appearing and in no apparent distress. Skin: Warm, dry, no pallor noted. No rash. Head: Normocephalic, atraumatic. Neck: Supple, non-tender. No cervical lymphadenopathy. No meningismus. Eye: Pupils are equal, round and EOMI. No scleral icterus. Ears, Nose, Mouth, and Throat: TM are clear, no posterior oropharynx erythema or nasal mucosal hypertrophy, uvula is mid-line Oral mucosa is moist Cardiovascular: Regular Rate and Rhythm without murmur, gallop or rub. Respiratory: No accessory muscle use or respiratory distress. Lungs are clear to auscultation, no wheezing, rales or rhonchi Musculoskeletal: normal ROM Neurological: A&O x4. No cranial nerve dysfunction observed. No truncal ataxia. Moves all extremities. Sensation intact. Psychiatric: Cooperative and interactive. Normal mood and affect. Constitutional Vital Signs, click to edit/add: Last Vital Signs Temp 98.0 F 01/10/25 07:22 Pulse 62 01/10/25 07:22 Resp 16 01/10/25 07:22 BP 119/65 01/10/25 07:22 Pulse Ox 100 01/10/25 07:22 O2 Del Method Room Air 01/10/25 07:22 Course Vital Signs Vital signs: Vital Signs Temperature 98.0 F 01/10/25 07:22 Pulse Rate 62 01/10/25 07:22 Respiratory Rate 16 01/10/25 07:22 Blood Pressure 119/65 01/10/25 07:22 Pulse Oximetry 100 01/10/25 07:22 Oxygen Delivery Method Room Air 01/10/25 07:22 Temperature 98.0 F 01/10/25 07:22 Pulse Rate 62 01/10/25 07:22 Respiratory Rate 16 01/10/25 07:22 Blood Pressure 119/65 01/10/25 07:22 Pulse Oximetry 100 01/10/25 07:22 Oxygen Delivery Method Room Air 01/10/25 07:22 Medical Decision Making MDM Narrative Medical decision making narrative: Peripheral IV was started the patient received a liter of normal saline IV fluid. She received IV Toradol and IV Zofran as well. Noncontrast head CT was negative for any acute pathology. See the radiologist's interpretation below. Urinalysis was also negative. The patient was informed of results and given reassurance. She felt better after ED treatment and was discharged home -she requested prescription for oral Toradol. She said that she has Zofran at home Lab Data Lab results reviewed: Yes I reviewed the patient's lab results Labs: Lab Results 01/10/25 Range/Units 07:30 Urine Color Lt yellow (YELLOW) Urine Clarity Clear (CLEAR) Urine pH 6.0 (5.0-9.0) Ur Specific [place] <=1.005 A (1.005-1.025) Urine Protein Negative (NEG/TRACE) mg/dL Urine Glucose (UA) Negative (NEGATIVE) mg/dL Urine Ketones Negative (NEGATIVE) mg/dL Urine Occult Blood Negative (NEGATIVE) Urine Nitrite Negative (NEGATIVE) Urine Bilirubin Negative (NEGATIVE) Urine Urobilinogen 0.2 (0.2-1.0) EU/dL Ur Leukocyte Esterase Negative (NEGATIVE) Imaging Data CT scan - head: Attestation: I have reviewed the pertinent imaging results. Radiologist's impression: ITS Impressions Head CT 01/10/25 07:44 IMPRESSION: Normal noncontrasted CT brain. Impression dictated by: Anthony Royal M.D. 01/10/2025 8:35 AM [facility] Electron[facility] authenticated by: [id number] Y Date: 01/10/2025 08:35 Discharge Plan Discharge Chief Complaint: Headache Clinical Impression: Migraine Patient Disposition: Home, Self-Care Time of Disposition Decision: 09:09 Prescriptions / Home Meds: New ketorolac 10 mg tablet 10 mg PO TID PRN (Reason: pain) 5 Days Qty: 15 0RF No Action gabapentin 100 mg capsule 500 mg PO .qhs tizanidine 4 mg tablet 4 mg PO .qhs metoprolol tartrate 25 mg tablet 12.5 mg PO QAM metoprolol tartrate 25 mg tablet 25 mg PO .qhs meclizine 25 mg tablet 25 mg PO .q6 hours PRN (Reason: dizziness) ondansetron 4 mg tablet,disintegrating 4 mg translingual Q6H PRN (Reason: nausea and vomiting) midodrine 5 mg tablet pantoprazole 40 mg tablet,delayed release (DR/EC) PO amoxicillin-pot clavulanate 875-125 mg tablet 1 tab PO BID tretinoin 0.025 % cream TOPICAL spironolactone 25 mg tablet Print Language: Hebrew Instructions: Migraine Headache (ED) Referrals: MISHA SALAS [Primary Care Provider, Family Practice] - 1 week
== END 2025-01-10 09:16 | disposition home or self-care (01) ==
PROVIDERS: Emergency Provider Emergency Medicine; PCP Family Medicine
DX: G43.909 Migraine, unspecified, not intractable, without status migrainosus (principal); Z87.891 Personal history of nicotine dependence
CPT/HCPCS: 70450; 81003; 96374; 96375; 99285; J1885; J2405